=== PATIENT | male | born 1960 | race African-American/Black ===

== ENCOUNTER 2019-10-14 12:47 | Emergency (ER) | payer MEDICARE, SELFPAY ==
--- NOTE | ~2019-10-14 | XR_ITS ---
EXAMINATION: XR shoulder LT min 2V EXAM DATE: 10/14/2019 14:52 INDICATION: No known recent injury provided at this time. Pain of the left shoulder. TECHNIQUE: The following left shoulder projections obtained: frontal projection with internal rotatio n, frontal projection with external rotation, Grashey, and axillary (4+ views). There is no prior st udy for comparison. FINDINGS: No evidence of left shoulder rotator cuff calcific tendinosis. There is mild glenohumeral, moderate acromioclavicular joint primary osteoarthritis. There are no acute fractures or dislocation s identified. There is no subcutaneous gas. The soft tissue is unremarkable. There are no radiopa que foreign bodies. IMPRESSION: Moderate left acromioclavicular, mild glenohumeral osteoarthritis. Reviewed, dictated and finalized at location A.
[2019-10-14 13:10] VITALS: BP 153/91; PULSE 73; RESP 18; TEMP 36.9; O2SAT 98
--- NOTE | 2019-10-14 15:51 | PC.NURSE ---
pt out to nurses station, pt educated on busy department and that all his results are back and EDP will be in when available. Pt verbalized understanding.
--- NOTE | 2019-10-14 15:56 | ED.UPPEXIN ---
HPI - Extremity Injury (Upper) General Chief Complaint: Extremity Injury, Upper <Audrey Becker PA-C - Last Filed: 10/14/19 16:01> Stated Complaint: left shoulder pain <DERICK Rivera Last Filed: 10/14/19 16:01> Time Seen by Provider: 10/14/19 14:00 <Audrey Becker PA-C - Last Filed: 10/14/19 16:01> Source: patient <DERICK Rivera Last Filed: 10/14/19 16:01> Mode of arrival: ambulatory <DERICK Rivera Last Filed: 10/14/19 16:01> Limitations: no limitations <DERICK Rivera Last Filed: 10/14/19 16:01> History of Present Illness HPI narrative: Patient presents with chief complaint of left shoulder soreness that has persisted over the past 2 to 3 weeks. Patient states initially he was lifting a heavy object and he felt a popping sensation to the left shoulder. Patient states a week and 1/2 to 2 weeks ago he experienced the same thing again. Patient denies any weakness to the extremity. He denies any loss of range of motion. Patient is annoyed by soreness to the extremity with motion. Especially with extensive internal and external rotation. Patient denies any prior fracture no injury to the shoulder. <Audrey Becker PA-C - Last Filed: 10/14/19 16:01> Related Data Allergies/Adverse Reactions: Allergies Allergy/AdvReac Type Severity Reaction Status Date / Time No Known Allergies Allergy Verified 10/14/19 13:57 <Audrey Becker PA-C - Last Filed: 10/14/19 16:01> Review of Systems Review of Systems: Narrative: CONSTITUTIONAL: Denies fever, chills, or sweats. EYES: Denies visual changes, redness, or discharge. ENT: Denies rhinorrhea, congestion, sore throat, or otalgia. CARDIOVASCULAR: Denies chest pain, palpitations, or edema. RESPIRATORY: Denies cough or dyspnea. GASTROINTESTINAL: Denies abdominal pain, nausea, vomiting, or diarrhea. GENITOURINARY: Denies dysuria or hematuria. SKIN: Denies rash or itching. MUSCULOSKELETAL: Reports left shoulder pain denies back pain, or myalgia. NEUROLOGIC: Denies headache, numbness, dizziness, or weakness. PSYCHIATRIC: Denies anxiety or depression. <Audrey Becker PA-C - Last Filed: 10/14/19 16:01> [facility] Social History Social History: Social History Gender identity (if verbalized by the patient): Male <Audrey Becker PA-C - Last Filed: 10/14/19 16:01> Exam Narrative: Exam Narrative: GENERAL: Well-appearing, well-nourished, and in no acute distress. HEAD: Normocephalic, atraumatic. EYES: PERRLA and EOMI. ENT: Nares clear, no rhinorrhea or epistaxis. Mucous membranes moist. Oropharynx without tonsillar hypertrophy exudate or other lesions. Bilateral TMs pearly rios nonbulging CHEST: Clear to auscultation. No respiratory distress. No wheezes rales or rhonchi HEART: Regular rate and rhythm. EXTREMITIES: Normal range of motion. Discomfort with extensive internal and external rotation. No erythema or edema. No outward signs of injury. SKIN: Warm, dry, no rash. NEURO: No focal deficits. Alert and oriented x3. PSYCH: Normal mood and affect. <Audrey Becker PA-C - Last Filed: 10/14/19 16:01> Course Vital Signs Vital signs: Vital Signs Temperature 98.4 F 10/14/19 13:10 Pulse Rate 73 10/14/19 13:10 Respiratory Rate 18 10/14/19 13:10 Blood Pressure 153/91 H 10/14/19 13:10 Pulse Oximetry 98 10/14/19 13:10 Temperature 98.0 F 10/14/19 16:14 Pulse Rate 88 10/14/19 16:14 Respiratory Rate 20 10/14/19 16:14 Blood Pressure 128/78 10/14/19 16:14 Pulse Oximetry 99 10/14/19 16:14 <Audrey Becker PA-C - Last Filed: 10/14/19 16:01> Vital Signs Temperature 98.4 F 10/14/19 13:10 Pulse Rate 73 10/14/19 13:10 Respiratory Rate 18 10/14/19 13:10 Blood Pressure 153/91 H 10/14/19 13:10 Pulse Oximetry 98 10/14/19 13:10 Temperature 98.0 F 10/14/19 16:14 Pulse Rate 88 10/14/19 16:14 Respiratory Rate 20 10/14/19 16:14 Blood P
[2019-10-14 16:14] VITALS: BP 128/78; PULSE 88; RESP 20; TEMP 36.7; O2SAT 99
== END 2019-10-14 16:16 | disposition home or self-care (01) ==
PROVIDERS: Emergency Provider General Practice; PCP Emergency Medicine
DX: M19.012 Primary osteoarthritis, left shoulder (principal)
CPT/HCPCS: 73030; 99283

== ENCOUNTER 2021-07-20 | Day surgery (SDC) | payer MEDICARE, SELFPAY ==
[2021-05-06 13:12] VITALS: BMI 29.6
--- NOTE | 2021-06-03 09:56 | PC.NURSE ---
Patient was rescheduled from a procedure date on 05/21/21. States that no medical history has changed since last updated phone call. Patient does state that he will need to get a copy of his COVID card from [facility]. Tried to give him Nallely's email to send the card, however patient states he did not have a pen and paper with him at this time. He will call PAT back tomorrow to get the email, but will need to be followed up with.
[2021-07-14 10:37] VITALS: BMI 29.6
[2021-07-20 09:16] VITALS: BP 156/90; PULSE 65; RESP 18; TEMP 37.1; O2SAT 99
--- NOTE | 2021-07-20 09:20 | PM.HPGS ---
History of Present Illness History of Present Illness Consent: Risks, benefits, and alternatives have been discussed and questions answered. Patient agrees to proceed with procedure. Chief complaint: neoplasm screening Narrative: Juliet Grimm is a 59 year old male here for screening colonoscopy, last one about 7 years ago. Review of Systems Constitutional: Constitutional: Denies headache(s) and Denies weakness Eyes: Eyes: Denies blurry vision ENT: Reports Normal hearing present, Denies headache(s) and Denies neck pain Cardiovascular: Cardiovascular: Denies chest pain and Denies dyspnea Respiratory: Respiratory: Denies dyspnea Gastrointestinal: Gastrointestinal: Reports no additional gastrointestinal complaints Genitourinary: Genitourinary: Denies dysuria Musculoskeletal: Musculoskeletal: Denies neck pain Integumentary/Breasts: Skin/Breast: Denies dry skin Neurologic: Reports Normal hearing present, Denies headache(s) and Denies weakness Psychiatric: Psychiatric: Denies anxiety Endocrine: Endocrine: Denies change in body appearance Hematologic/Lymphatic: Hematologic/Lymphatic: Denies easy bleeding Allergic/Immunologic: Allergic/Immunologic: Denies urticaria PMFSH Past Medical History Medical History (Updated 07/20/21 @ 09:21 by Mark Li MD) Colon cancer screening Social History Social History Smoking status: Never smoker Alcohol intake: current Drinks per week: 7 Substance use: current Substance use type: marijuana Living arrangements: with family Gender identity (if verbalized by the patient): Male Spiritual care concerns: No Meds Home Medications and Allergies Home Medications Medication Instructions Recorded Confirmed Type naproxen 500 mg PO BID PRN #20 tablet 10/14/19 07/20/21 Rx amlodipine 10 mg PO DAILY 05/06/21 07/20/21 History diclofenac sodium 75 mg PO BID 05/06/21 07/20/21 History Allergies Allergy/AdvReac Type Severity Reaction Status Date / Time No Known Allergies Allergy Verified 07/20/21 09:16 Vital Signs Vital Signs - 24 hr 07/20/21 09:16 Temperature 98.8 F Pulse Rate 65 Respiratory Rate 18 Blood Pressure 156/90 H Pulse Oximetry 99 Exam Const: General: comfortable and no acute distress HENMT: General nose exam: Normal nares present Eyes: General: appearance normal, both eyes and all related structures Neck: Neck: no JVD Resp: Auscultation: clear to auscultation bilaterally Cardio: Rate: regular rate Rhythm: regular rhythm GI: Inspection: non-distended GI Palp: Yes Soft to palpation Skin: General skin exam: normal color Neuro: General: gait normal Speech: normal speech Extrem: General: normal to inspection Psych: Mental Status: mental status grossly normal Assessment and Plan Assessment and plan (1) Colon cancer screening: Code(s): Z12.11 - Encounter for screening for malignant neoplasm of colon Status: Acute Assessment and Plan: colonoscopy
[2021-07-20] MEDS: LACTATED RINGERS 1,000 ML 150 ML IV CONT (09:21)
--- NOTE | 2021-07-20 09:25 | WPDANESEPPF ---
Anes - Initial Pre Proc Eval Procedure: Operation Date: 07/20/21 10:30 Proposed Procedures p Screening Colonoscopy - Mark Li MD Date/Time: 07/20/21 09:25 Surgeon: Mark Li MD Pre Op Diagnosis: neoplasm screening Patient Data Age: 59 Gender: M Height: 1.85 m Weight: 99.1 kg Last Vital Signs Temp 98.8 F 07/20/21 09:16 Pulse 65 07/20/21 09:16 Resp 18 07/20/21 09:16 BP 156/90 H 07/20/21 09:16 Pulse Ox 99 07/20/21 09:16 Allergies Allergy/AdvReac Type Severity Reaction Status Date / Time No Known Allergies Allergy Verified 07/20/21 09:16 Home Medications Medication Instructions Recorded Confirmed Type naproxen 500 mg PO BID PRN #20 tablet 10/14/19 07/20/21 Rx amlodipine 10 mg PO DAILY 05/06/21 07/20/21 History diclofenac sodium 75 mg PO BID 05/06/21 07/20/21 History Patient hx anesthesia problems: none Family hx anesthesia problems: none Results Review: All pre-operative results and documents have been reviewed as part of the pre-operative evaluation. [facility] Past Medical History Medical History (Updated 07/20/21 @ 09:25 by Damian Castillo MD) Colon cancer screening Hypertension Social History Social History Smoking status: Never smoker Alcohol intake: current Drinks per week: 7 Substance use: current Substance use type: marijuana Living arrangements: with family Gender identity (if verbalized by the patient): Male Spiritual care concerns: No Anes - Eval Final PreProcedure Day of Procedure 07/20/21 09:25 Patient weight: overweight Heart: regular rate and rhythm Lungs: clear to auscultation Airway: Mallampati scale class II Neurological: alert and oriented Last oral intake: >/= 8 hours ASA classification: II Emergent: no Anesthetic plan: proceed Anesthesia type and monitoring: general GIVS and standard monitoring Results Review: All pre-operative results and documents have been reviewed as part of the pre-operative evaluation. Informed Consent: The patient's anesthetic plan and its attendant risks and benefits were discussed with the patient/family/POA. Questions were solicited and answers provided to the satisfaction of the patient/family/POA.
[2021-07-20 09:52] VITALS: BP 96/60; PULSE 70; RESP 20; O2SAT 99
[2021-07-20 10:02] VITALS: BP 126/86; PULSE 61; RESP 22; O2SAT 100
[2021-07-20 10:12] VITALS: BP 138/68; PULSE 61; RESP 20; O2SAT 100
== END 2021-07-20 10:19 | disposition home or self-care (01) ==
PROVIDERS: PCP Emergency Medicine; Visit Provider Internal Medicine Gastroenterology
PROC: 0DJD8ZZ Inspection of Lower Intestinal Tract, Via Natural or Artificial Opening Endoscopic (ICD-10-PCS; CPT 45378; principal; 2021-07-20 10:30)
DX: Z12.11 Encounter for screening for malignant neoplasm of colon (principal); K64.8 Other hemorrhoids; K62.89 Other specified diseases of anus and rectum; I10 Essential (primary) hypertension; F12.90 Cannabis use, unspecified, uncomplicated
CPT/HCPCS: G0121; J2704; J7120

== ENCOUNTER 2022-01-07 12:14 | Outpatient (CLI) | payer MEDICARE, SELFPAY ==
--- NOTE | ~2022-01-07 | XR_ITS ---
EXAMINATION: XR chest 2V 01/07/2022 12:27 INDICATION: Intermittent asthma. Dyspnea. PROCEDURE: 2 view chest COMPARISON: 05/17/2017 FINDINGS: The lungs are clear. The cardiomediastinal silhouette is within normal limits. There are no pleural effusions. There is no pneumothorax suspected. IMPRESSION: 1: NO ACUTE CARDIOPULMONARY DISEASE. Reviewed, dictated and finalized at location A.
== END 2022-01-07 12:15 ==
PROVIDERS: PCP Internal Medicine; Visit Provider Internal Medicine
DX: J45.20 Mild intermittent asthma, uncomplicated (principal)
CPT/HCPCS: 71046

== ENCOUNTER 2022-02-04 10:45 | Outpatient (CLI) | payer MEDICARE, SELFPAY ==
--- NOTE | ~2022-02-04 | XR_ITS ---
EXAMINATION: XR knee RT 3V DATE: 02/04/2022 11:12 INDICATION: Right knee pain TECHNIQUE: Three views of the right knee were obtained. COMPARISON: None. FINDINGS: There is tricompartmental osteoarthritis of the knee, severe in the lateral and patellofemo ral compartments and moderate in the medial compartment. There is no fracture. There is a large knee joint effusion. IMPRESSION: 1. Tricompartmental osteoarthritis, severe in the lateral and patellofemoral compartments. 2. Large joint effusion. Reviewed, dictated and finalized at location F. IMPRESSION: 1. Tricompartmental osteoarthritis, severe in the lateral and patellofemoral co mpartments. 2. Large joint effusion.
--- NOTE | ~2022-02-04 | XR_ITS ---
XR knee LT 3V DATE: 02/04/2022 11:12 INDICATION: Osteoarthritis TECHNIQUE: Standing AP and lateral views, sunrise view COMPARISON: None FINDINGS: There is prominent distention of the suprapatellar bursa consistent with large knee joint e ffusion. There is severe osteoarthritis at the patellofemoral and medial compartments, mild to moderate involv ement of the lateral compartment. There is lateral subluxation at the patellofemoral joint and femoral tibial joint. No fracture or dis location, periosteal reaction or bone destruction. No radiopaque intra-articular loose body or chondr ocalcinosis is noted. Osteopenia. IMPRESSION: Tricompartment osteophytes, most severe at the medial and patellofemoral garments Large joint effusion Osteopenia Reviewed, dictated and finalized at location A. IMPRESSION: Tricompartment osteophytes, most severe at the medial and patellofe moral garments Large joint effusion Osteopenia
== END 2022-02-04 10:46 ==
PROVIDERS: PCP Internal Medicine; Visit Provider Internal Medicine
DX: M17.0 Bilateral primary osteoarthritis of knee (principal); M25.462 Effusion, left knee; M85.862 Other specified disorders of bone density and structure, left lower leg; M25.461 Effusion, right knee
CPT/HCPCS: 73562

== ENCOUNTER 2022-04-05 15:02 | Outpatient (CLI) | payer MEDICARE, SELFPAY ==
--- NOTE | ~2022-04-05 | XR_ITS ---
XR lumbar spine 2-3V DATE: 04/05/2022 15:43 INDICATION: Acute midline low back pain, left sciatica TECHNIQUE: AP, lateral, coned lateral lumbosacral views COMPARISON: None FINDINGS: There is diffuse osteopenia. There is moderate degenerative disease at L3-4 and L4-5 and severe degenerative disc disease L5-S1. There is prominent degenerative changes apophyseal joints, particularly at L4-5 and L5-S1, associated minimal grade 1 anterolisthesis at L4-5. The included lower thoracic and lumbar pedicles are intact. No fracture or bone destruction is noted. The sacroiliac joints are intact. IMPRESSION: Osteopenia Multilevel degenerative disc disease, most severe at L5-S1 Degenerative change at the apophyseal joints with associated minimal grade 1 anterolisthesis at L4-5 Reviewed, dictated and finalized at location B. IMPRESSION: Osteopenia Multilevel degenerative disc disease, most severe at L5-S1 Degenerative change at the apophyseal joints with associated minimal grade 1 an terolisthesis at L4-5
== END 2022-04-05 15:03 ==
PROVIDERS: PCP Internal Medicine; Visit Provider Internal Medicine
DX: M54.42 Lumbago with sciatica, left side (principal); M51.37 Other intervertebral disc degeneration, lumbosacral region
CPT/HCPCS: 72100

== ENCOUNTER 2022-06-13 15:16 | Emergency (ER) | payer MEDICARE, SELFPAY ==
[2022-06-13] VITALS (17 sets, daily range): BP systolic 132–168; BP diastolic 68–102; PULSE 67–79; RESP 12–22; TEMP 36.3–36.7; O2SAT 97–100
--- NOTE | ~2022-06-13 | XR_ITS ---
EXAMINATION: XR chest 2V DATE: 06/13/2022 16:24 INDICATION: Shortness of breath and cough TECHNIQUE: PA and lateral views of the chest are obtained. COMPARISON: 01/07/2022 FINDINGS: The lungs are free of acute opacities. No pleural effusion or pneumothorax. The cardiomedia stinal silhouette is normal. There is severe thoracic spondylosis. IMPRESSION: 1. No acute cardiopulmonary abnormality. Reviewed, dictated and finalized at location B. GRAPHIC INSTRUMENT SUPERVISOR
--- NOTE | 2022-06-13 15:44 | ECG_ITS ---
Measurements Intervals Ava Rate: 69 P: 60 IN: 207 QRS: 30 QRSD: 93 T: 58 QT: 370 QTc: 397 Interpretive Statements SINUS RHYTHM BORDERLINE AV CONDUCTION DELAY BORDERLINE ECG BASELINE ARTIFACT- I, II, III, AVR, AVL, AVF NO PREVIOUS ECG AVAILABLE FOR COMPARISON Electronically Signed On 06-13-2022 19:47:11 POWERHOUSE OPERATOR by Sandro Mcdaniels D.O.
[2022-06-13 16:10] LABS: Basophils Absolute Auto 0.1 K/mm3 (0.0-0.1); Basophils Percent Auto 0.9 % (0.2-1.2); Eosinophils Absolute Auto 0.5 K/mm3 (0-0.3); Eosinophils Percent Auto 5.6 % (0-4.4); Hemoglobin 13.5 g/dL (14.0-18.0); Immature Granulocyte Absolute 0.02 K/mm3 (0.00-0.031); Immature Granulocyte Percent A 0.2 % (0-0.5); Lymphocytes Absolute Auto 1.71 K/mm3 (0.9-3.2); Lymphocytes Percent Auto 21.1 % (18.3-44.2); Mean Corpuscular HGB Conc 32.1 g/dl (32-36); Mean Corpuscular Hemoglobin 28.1 pg (26-34); Mean Corpuscular Volume 87.5 fl (80-100); Mean Platelet Volume 8.9 fl (7.4-10.4); Monocytes Absolute Auto 0.8 K/mm3 (0.1-0.6); Monocytes Percent Auto 9.3 % (2.6-8.5); Neutrophils Absolute Auto 5.1 K/mm3 (1.3-6.7); Neutrophils Percent Auto 62.9 % (45.5-73.1); Platelet Count Result 307 k/mm3 (150-375); Red Cell Distribution Width 13.7 % (11.5-14.5); White Blood Count 8.1 K/mm3 (4.5-10.0)
[2022-06-13 16:23] LABS: Alanine Aminotransferase 26 U/L (6-50); Albumin Level 4.8 g/dL (3.5-5.1); Alkaline Phosphatase 69 U/L (38-126); Anion Gap 12 mmol/L (8-16); Aspartate Amino Transferase 30 U/L (17-59); Bilirubin,Total 1.1 mg/dL (0.2-1.3); Blood Urea Nitrogen 12 mg/dL (9-20); Calcium 9.5 mg/dL (8.4-10.2); Carbon Dioxide 30 mmol/L (22-30); Chloride 100 mmol/L (98-107); Estimated CRCL calculation 76 ml/min; Estimated Glomerular Filt Rate > 60; Glucose 87 mg/dL (65-110); Potassium 3.4 mmol/L (3.4-5.0); Sodium 142 mmol/L (137-145)
--- NOTE | 2022-06-13 17:45 | ED.GENADULT ---
HPI - General Adult General Chief complaint: Shortness of Breath/Dyspnea Stated complaint: Shortness of Breath/Asthma Exacerbation Time Seen by Provider: 06/13/22 17:43 Source: RN notes reviewed History of Present Illness HPI narrative: Patient presents emergency room from home for shortness of breath. Patient states has been feeling short of breath since this morning. States he has a history of asthma and has been having wheezing throughout the day. States associate with a cough this been nonproductive. He denies any fevers or chills abdominal pain nausea or vomiting states he has mild feeling of tightness in his chest that he cannot take a deep breath patient denies having nausea or vomiting went to his PCP is recommended come the ER for further evaluation Related Data Home Medications Medication Instructions Recorded Confirmed amlodipine 10 mg tablet 10 mg PO DAILY 05/06/21 07/20/21 diclofenac sodium 75 mg 75 mg PO BID 05/06/21 07/20/21 tablet,delayed release Allergies Allergy/AdvReac Type Severity Reaction Status Date / Time lisinopril Allergy Unknown Verified 06/13/22 15:43 Review of Systems Review of Systems: Gen.: Denies fevers or chills ENT: Denies congestion Respiratory: See HPI CV: Denies chest pain or palpitations GI: Denies abdominal pain nausea, emesis or diarrhea Musculoskeletal: Denies back pain or muscle pain Neuro: Denies numbness, tingling, weakness or focal weakness Skin: Denies rash Except as documented, all other systems reviewed and negative [facility] Past Medical History Medical History (Updated 06/13/22 @ 19:17 by Michi Dickinson DO) Asthma Colon cancer screening Hypertension Social History Social History Smoking status: Never smoker Alcohol intake: current Drinks per week: 7 Substance use: current Substance use type: marijuana Gender identity (if verbalized by the patient): Male Spiritual care concerns: No Exam Narrative: APPEARANCE: No acute distress, nontoxic, resting in bed EYES: EOMI HEENT: Normocephalic, atraumatic, OMM RESPIRATORY: No respiratory distress wheezing throughout the bilateral lung morley with decreased breath sounds in the bases no rhonchi CARDIOVASCULAR: Regular rate and rhythm without murmurs rubs or gallops. ABDOMINAL: Soft, nontender, nondistended, no rebound or guarding MUSCULOSKELETAl: Moves all extremities. No clubbing, cyanosis or edema. NEURO: Awake and alert. Following commands, speech normal, no focal deficits SKIN:: Warm, dry. No rashes lesions or abrasions PSYCHIATRIC: Normal affect/mood, Course Course Emergency Course: Patient states he is feeling much better following breathing treatments. Repeat lung exam is clear to auscultation bilaterally patient states he has had history of being positive for the past he does not smoke cigarettes but does smoke marijuana Discussed with patient results of workup and diagnosis. Discussed need for follow-up with primary care, proper use of medication, and reasons to return to the emergency department. Patient understands and agrees to current treatment plan Vital Signs Vital signs: Vital Signs Temperature 98.1 F 06/13/22 15:39 Pulse Rate 75 06/13/22 15:39 Respiratory Rate 22 H 06/13/22 15:39 Blood Pressure 147/68 H 06/13/22 15:39 Pulse Oximetry 100 06/13/22 15:39 Temperature 97.9 F 06/13/22 17:45 Pulse Rate 76 06/13/22 18:38 Respiratory Rate 16 06/13/22 18:38 Blood Pressure 158/102 H 06/13/22 17:45 Pulse Oximetry 100 06/13/22 17:45 Oxygen Delivery Room Air 06/13/22 17:45 Medical Decision Making Vital Signs Vital Signs: Vital Signs Temperature 98.1 F 06/13/22 15:39 Pulse Rate 75 06/13/22 15:39 Respiratory Rate 22 H 06/13/22 15:39 Blood Pressure 147/68 H 06/13/22 15:39 Pulse Oximetry 100 06/13/22 15:39 Temperature 97.9 F 06/13/22 17:45 Pulse Rate 76
[2022-06-13] MEDS: ALBUTEROL SULFATE NEB 2.5 MG/3 ML INH 5 MG INHALATION ×2 (18:02→18:18)
[2022-06-13] MEDS: IPRATROPIUM BR 0.02% INH SOLN 0.5 MG/2.5 ML VIAL INHALATION ×2 (18:03→18:18)
[2022-06-13] MEDS: methylPREDNISolone SOD SUCC 125 MG VIAL IV PUSH (18:34)
[2022-06-13 19:20] LABS: SARS-CoV-2 RNA PCR Negative
== END 2022-06-13 19:59 | disposition home or self-care (01) ==
PROVIDERS: Emergency Provider Emergency Medicine; PCP Internal Medicine
DX: J45.901 Unspecified asthma with (acute) exacerbation (principal); Z20.822 Contact with and (suspected) exposure to COVID-19; I10 Essential (primary) hypertension; R94.31 Abnormal electrocardiogram [ECG] [EKG]
CPT/HCPCS: 36415; 71046; 80053; 85025; 93005; 94640; 96374; 99285; J2930; U0003; U0005

== ENCOUNTER 2022-07-12 09:48 | Emergency (ER) | payer MEDICARE, SELFPAY ==
--- NOTE | ~2022-07-12 | XR_ITS ---
EXAMINATION: XR chest 2V DATE: 07/12/2022 10:12 INDICATION: Left chest wall pain TECHNIQUE: PA and lateral views of the chest are obtained. COMPARISON: 06/13/2022 FINDINGS: The lungs are free of acute opacities. No pleural effusion or pneumothorax. The cardiomedia stinal silhouette is normal. There is severe thoracic spondylosis. IMPRESSION: 1. No acute cardiopulmonary abnormality. Reviewed, dictated and finalized at location A. OYEE ADVISER
--- NOTE | 2022-07-12 09:50 | ECG_ITS ---
Measurements Intervals Lee Rate: 81 P: 53 HI: 188 QRS: 8 QRSD: 94 T: 43 QT: 330 QTc: 384 Interpretive Statements SINUS RHYTHM COMPARED TO ECG 06/13/2022 17:52:33 NO SIGNIFICANT CHANGES Electronically Signed On 07-12-2022 15:31:39 JBOSS ARCHITECT by Harpal Singh M.D.
[2022-07-12 09:51] VITALS: BP 136/78; PULSE 86; RESP 18; TEMP 36.9; O2SAT 100
[2022-07-12 10:24] LABS: Basophils Percent Auto 0.5 % (0.2-1.2); Eosinophils Absolute Auto 0.1 K/mm3 (0-0.3); Eosinophils Percent Auto 2.3 % (0-4.4); Hematocrit 40.9 % (42.0-52.0); Hemoglobin 13.5 g/dL (14.0-18.0); Immature Granulocyte Absolute 0.03 K/mm3 (0.00-0.031); Immature Granulocyte Percent A 0.5 % (0-0.5); Lymphocytes Absolute Auto 1.83 K/mm3 (0.9-3.2); Mean Corpuscular Hemoglobin 28.3 pg (26-34); Mean Corpuscular Volume 85.7 fl (80-100); Mean Platelet Volume 8.9 fl (7.4-10.4); Monocytes Absolute Auto 0.7 K/mm3 (0.1-0.6); Monocytes Percent Auto 10.8 % (2.6-8.5); Neutrophils Absolute Auto 3.4 K/mm3 (1.3-6.7); Neutrophils Percent Auto 55.9 % (45.5-73.1); Platelet Count Result 374 k/mm3 (150-375); Red Blood Count 4.77 M/mm3 (4.6-6.20); Red Cell Distribution Width 13.2 % (11.5-14.5); White Blood Count 6.1 K/mm3 (4.5-10.0)
[2022-07-12 10:37] LABS: Partial Thromboplastin Time 26.4 SECONDS (22.3-36.8); Prothrombin Time 13.1 Seconds (11.1-14.7)
[2022-07-12 10:49] LABS: Alanine Aminotransferase 33 U/L (6-50); Albumin Level 4.4 g/dL (3.5-5.1); Alkaline Phosphatase 70 U/L (38-126); Anion Gap 6 mmol/L (8-16); Aspartate Amino Transferase 36 U/L (17-59); Bilirubin,Total 1.3 mg/dL (0.2-1.3); Blood Urea Nitrogen 12 mg/dL (9-20); Calcium 9.1 mg/dL (8.4-10.2); Carbon Dioxide 30 mmol/L (22-30); Chloride 101 mmol/L (98-107); Estimated CRCL calculation 84 ml/min; Estimated Glomerular Filt Rate > 60; Glucose 103 mg/dL (65-110); Lipase 104 U/L (23-300); Potassium 3.9 mmol/L (3.4-5.0); Sodium 137 mmol/L (137-145)
[2022-07-12 11:00] LABS: Troponin I < 0.012 ng/mL (0.000-0.034)
[2022-07-12 11:36] VITALS: PULSE 71
--- NOTE | 2022-07-12 12:10 | ED.GENADULT ---
HPI - General Adult General Chief complaint: Chest Pain Stated complaint: rif pain Time Seen by Provider: 07/12/22 11:31 History of Present Illness HPI narrative: This is a 60-year-old male presenting ED with chief complaint of chest pain. Patient has pain over his left chest underneath his breast, describes as an achy pain that started yesterday and radiates from his left side to his right side. Has 5/10 intensity, comes and goes. He has never experienced pain like this before there are no exacerbating or alleviating factors. Patient is not currently experiencing chest pain. Denies vomiting diaphoresis or exertional component. He denies fever, chills or viral symptoms. Patient does have a history of asthma says this is not feel like his asthma exacerbation. He was told to come to the ER by his primary care physician. Related Data Home Medications Medication Instructions Recorded Confirmed amlodipine 10 mg tablet 10 mg PO DAILY 05/06/21 07/20/21 diclofenac sodium 75 mg 75 mg PO BID 05/06/21 07/20/21 tablet,delayed release Allergies Allergy/AdvReac Type Severity Reaction Status Date / Time lisinopril Allergy Unknown Verified 07/12/22 09:57 Review of Systems Review of Systems: CONSTITUTIONAL: Denies night sweats. EYES: No eye pain ENT: Denies rhinorrhea CARDIOVASCULAR: Denies palpitations RESPIRATORY: Denies hemoptysis GASTROINTESTINAL: Denies hematemesis GENITOURINARY: Denies hematuria. SKIN: Denies rash MUSCULOSKELETAL: Denies myalgia. NEUROLOGIC: Denies weakness. PSYCHIATRIC: Denies delusions [facility] Past Medical History Medical History Asthma Colon cancer screening Hypertension Social History Social History Smoking status: Never smoker Alcohol intake: current Drinks per week: 7 Substance use: current Substance use type: marijuana Gender identity (if verbalized by the patient): Male Spiritual care concerns: No Exam Narrative: APPEARANCE: No apparent distress. Head: atraumatic. EYES: EOMI, NOSE: Atraumatic NECK: Trachea midline RESPIRATORY: No increased rate of breathing , clear to auscultation bilaterally with no wheezing CARDIOVASCULAR: regular rate and rhythm, no peripheral edema ABDOMINAL: Non-distended MUSCULOSKELETAl: No obvious deformities, no tenderness palpation over the area of chest pain NEURO: Alert. Moving 4/4 extremities SKIN:: Warm, dry. Normal color PSYCHIATRIC: Normal affect Course Vital Signs Vital signs: Vital Signs Temperature 98.5 F 07/12/22 09:51 Pulse Rate 86 07/12/22 09:51 Respiratory Rate 18 07/12/22 09:51 Blood Pressure 136/78 07/12/22 09:51 Pulse Oximetry 100 07/12/22 09:51 Oxygen Delivery Room Air 07/12/22 09:51 Temperature 98.5 F 07/12/22 09:51 Pulse Rate 78 07/12/22 12:22 Respiratory Rate 18 07/12/22 12:22 Blood Pressure 121/81 07/12/22 12:22 Pulse Oximetry 98 07/12/22 12:22 Oxygen Delivery Room Air 07/12/22 09:51 Medical Decision Making MDM Narrative Medical decision making narrative: this is a 60-year-old male presenting to ED with left-sided chest pain. ACS workup has been ordered. EKG interpretation: Rhythm [sinus], Rate 81, [place] -[normal], [place] -[normal], QRS [narrow], QTC [normal], T waves -[negative for concerning inversions], ST Segments - [Negative for concerning elevations] Final interpretations: [Normal Sinus Rhythm] chest x-ray was negative for acute cardiopulmonary process. Labwork was within normal limits. Trop negative x2. Patient's EKGs and labs are reviewed without significant high risk changes. Cardiac risk factors reviewed. Heart score is <4 and it is reasonable for further risk stratification to be performed as outpatient. Pain was not sudden or maximal onset not tearing or ripping quality. No other signs or symptoms suggest aortic dissection. A
[2022-07-12] MEDS: ASPIRIN 81 MG CHEWABLE TABLET 324 MG PO (12:21)
[2022-07-12 12:22] VITALS: BP 121/81; PULSE 78; RESP 18; O2SAT 98
[2022-07-12 13:30] LABS: Troponin I < 0.012 ng/mL (0.000-0.034)
[2022-07-12 14:02] VITALS: BP 121/81; PULSE 71; RESP 13; O2SAT 99
== END 2022-07-12 14:03 | disposition home or self-care (01) ==
PROVIDERS: Emergency Provider Emergency Medicine; PCP Internal Medicine
DX: R07.9 Chest pain, unspecified (principal); J45.909 Unspecified asthma, uncomplicated; I10 Essential (primary) hypertension
CPT/HCPCS: 36415; 71046; 80053; 83690; 84484; 85025; 85610; 85730; 93005; 99284; A9270

== ENCOUNTER 2022-08-21 08:07 | Emergency (ER) | payer MEDICARE, SELFPAY ==
[2022-08-21] VITALS (8 sets, daily range): BP systolic 141–148; BP diastolic 92–99; PULSE 78–89; RESP 13–20; TEMP 37; O2SAT 96–100
--- NOTE | ~2022-08-21 | XR_ITS ---
XR chest 2V DATE: 08/21/2022 09:13 INDICATION: Cough, congestion, shortness of breath TECHNIQUE: PA and lateral views COMPARISON: 07/12/2022 PA and lateral chest FINDINGS: Normal heart size. There is aortic ectasia and mild aortic tortuosity. No hilar or mediasti nal enlargement. No pulmonary infiltrate or consolidation, pleural effusion or pulmonary vascular con gestion or pneumothorax is detected. Degenerative spurring of the thoracic spine. IMPRESSION: No active cardiopulmonary disease Reviewed, dictated and finalized at location A. [facility]
--- NOTE | 2022-08-21 08:29 | ED.URI ---
HPI - URI/Sore Throat General Chief Complaint: Upper Respiratory Infection Stated Complaint: wheezing Time Seen by Provider: 08/21/22 08:23 Source: patient Mode of arrival: ambulatory Limitations: no limitations History of Present Illness HPI Narrative: 61 years old -[place] male presents with nasal congestion, postnasal discharge, tickle throat, coughing with wheezing started 7 days ago. History of asthma, does not have any medications at home. He denies sick contacts, fever, chills or chest pain. Related Data Home Medications Medication Instructions Recorded Confirmed amlodipine 10 mg tablet 10 mg PO DAILY 05/06/21 07/20/21 diclofenac sodium 75 mg 75 mg PO BID 05/06/21 07/20/21 tablet,delayed release Allergies Allergy/AdvReac Type Severity Reaction Status Date / Time lisinopril Allergy Unknown Verified 08/21/22 08:17 Review of Systems Review of Systems: All systems reviewed & are unremarkable except as noted in HPI and below PMFSH Past Medical History Medical History Asthma Colon cancer screening Hypertension Social History Social History Smoking status: Never smoker Alcohol intake: current Drinks per week: 7 Substance use: current Substance use type: marijuana Gender identity (if verbalized by the patient): Male Spiritual care concerns: No Course Vital Signs Vital signs: Vital Signs Temperature 37.0 C 08/21/22 08:10 Pulse Rate 86 08/21/22 08:10 Respiratory Rate 17 08/21/22 08:10 Blood Pressure 148/92 H 08/21/22 08:10 Pulse Oximetry 98 08/21/22 08:10 Oxygen Delivery Room Air 08/21/22 08:10 Temperature 37.0 C 08/21/22 08:10 Pulse Rate 82 08/21/22 09:01 Respiratory Rate 19 08/21/22 09:01 Blood Pressure 148/92 H 08/21/22 08:10 Pulse Oximetry 100 08/21/22 08:18 Oxygen Delivery Room Air 08/21/22 08:18 MDM - URI/Sore Throat MDM Narrative Medical decision making narrative: 61 years old -[place] male presented to the ED with cold symptoms and wheezing. History of asthma, currently not on any medications. Physical examination showed diffuse wheezing bilaterally, oxygen saturation on room air is 100%, Upper respiratory viral infection, asthma flareup secondary to the upper respiratory infection is my concern. COVID swab, chest x-ray, no acute abnormalities. Patient received DuoNeb treatment prior to discharge The plan to discharge patient on nasal decongestant, prednisone, albuterol inhaler and nebulizer. Patient feeling much better at the time of discharge. Discharge discharge the patient was discharged to home. The patient's condition upon discharge was fair. Education was provided to the patient in reference to the final impression. Diagnostic study results treatment, prognosis and need for follow-up. Based on the medications I am prescribing I have made any necessary changes to the patient's medications. Differential Diagnosis Differential diagnosis: Likely upper respiratory infection, sinusitis, viral infection, bronchitis, influenza, pharyngitis and other (Asthma exacerbation) Lab Data Labs: Lab Results 08/21/22 Range/Units 08:36 Influenza A (RT-PCR) Negative (Negative) Influenza B (RT-PCR) Negative (Negative) RSV (RT-PCR) Negative (Negative) SARS-CoV-2 RNA (RT-PCR) Negative Imaging Data Radiologist's impression: Impressions Chest X-Ray 08/21/22 09:18 IMPRESSION: No active cardiopulmonary disease Critical Care Time Critical Care Time Critical Care Time: Yes Total Critical Care Time: 10 Discharge Plan Discharge Clinical Impression: Upper respiratory infection, Asthma, Pharyngitis Patient Disposition: Home, Self-Care Condition: Improved Instructions: Antibiotic Form, Cold Symptoms (ED), Bronchospasm (ED) Additional Instructions: Return if sympto
[2022-08-21] MEDS: predniSONE 20 MG TABLET 60 MG PO (08:41)
[2022-08-21] MEDS: ALBUTEROL SULFATE NEB 2.5 MG/3 ML INH 5 MG INHALATION (08:48)
[2022-08-21] MEDS: IPRATROPIUM BR 0.02% INH SOLN 0.5 MG/2.5 ML VIAL INHALATION (08:48)
[2022-08-21 09:26] LABS: Influenza A QL RT-PCR Negative (Negative); Influenza B QL RT-PCR Negative (Negative); RSV RNA, RT-PCR Negative (Negative); SARS-CoV-2 RNA PCR Negative
== END 2022-08-21 10:21 | disposition home or self-care (01) ==
PROVIDERS: Emergency Provider Emergency Medicine; PCP Internal Medicine
DX: J06.9 Acute upper respiratory infection, unspecified (principal); J02.9 Acute pharyngitis, unspecified; J45.909 Unspecified asthma, uncomplicated; Z20.822 Contact with and (suspected) exposure to COVID-19; I10 Essential (primary) hypertension
CPT/HCPCS: 71046; 87637; 94640; 99283; J7512

== ENCOUNTER 2023-02-10 07:52 | Outpatient (CLI) | payer MEDICARE, SELFPAY ==
--- NOTE | ~2023-02-10 | CT_ITS ---
EXAMINATION: CT LE LT wo con DATE: 02/10/2023 09:01 INDICATION: Left knee osteoarthritis for preoperative planning TECHNIQUE: High resolution computed tomography (CT) of the left lower extremity from the hip through the ankle was performed without intravenous contrast. Additional sagittal and coronal reconstructions were performed. Automated exposure control and iterative reconstruction technique were employed. The dose-length product was 2007.87 mGy-cm. COMPARISON: None FINDINGS: Tricompartmental osteoarthritis at the left knee, severe in the medial and lateral compartments and a t least mild to moderate in the patellofemoral compartment. Likely secondary slight lateral subluxati on at the tibiofemoral articulation. There is also mild lateral patellar subluxation. Large left knee joint effusion. Loose body versus heterotopic ossicle anterior to the knee near the posterior apex o f Hoffa's fat pad. Additional mild particular osteoarthritis at the left hip, foot and ankle. No frac tures. Likely reactive, enlarged left inguinal lymph node measuring 1.5 cm maximal short axis diamete r. IMPRESSION: 1. Severe medial lateral compartment predominant tricompartmental osteoarthritis at the left knee wit h large joint effusion. Reviewed, dictated and finalized at location B. IMPRESSION: 1. Severe medial lateral compartment predominant tricompartmental osteoarthriti s at the left knee with large joint effusion.
[2023-02-10 08:11] LABS: Hematocrit 43.1 % (42.0-52.0); Hemoglobin 13.7 g/dL (14.0-18.0)
[2023-02-10 08:21] LABS: Albumin Level 4.4 g/dL (3.5-5.1); Estimated Glomerular Filt Rate > 60; Glucose 106 mg/dL (65-110)
[2023-02-10 08:23] LABS: Urine Cotinine NEGATIVE
--- NOTE | 2023-02-10 08:25 | ECG_ITS ---
Measurements Intervals [place] Rate: 72 P: 58 [place]: 216 QRS: 17 QRSD: 88 T: 52 QT: 379 QTc: 415 Interpretive Statements SINUS RHYTHM WITH FIRST DEGREE AV BLOCK VENTRICULAR PREMATURE COMPLEX BASELINE WANDER- I, II, AVR BORDERLINE ECG COMPARED TO ECG 07/12/2022 09:54:57 FIRST DEGREE AV BLOCK NOW PRESENT Electronically Signed On 02-10-2023 8:40:53 CDT by Sandro Mcdaniels D.O.
[2023-02-10 08:54] LABS: Hemoglobin A1C 5.5 % (<5.7)
== END 2023-02-10 07:53 | disposition home or self-care (01) ==
PROVIDERS: PCP Internal Medicine; Visit Provider Orthopaedic Surgery
DX: M17.12 Unilateral primary osteoarthritis, left knee (principal); I10 Essential (primary) hypertension; Z79.899 Other long term (current) drug therapy; Z92.89 Personal history of other medical treatment; Z01.818 Encounter for other preprocedural examination
CPT/HCPCS: 73700; 80307; 82040; 82565; 82947; 83036; 85014; 85018; 93005

== ENCOUNTER 2023-03-28 13:32 | Outpatient (CLI) | payer MEDICARE, SELFPAY ==
[2023-03-28 15:26] LABS: Basophils Percent Auto 0.5 % (0.2-1.2); Eosinophils Absolute Auto 0.2 K/mm3 (0-0.3); Hematocrit 42.9 % (42.0-52.0); Hemoglobin 13.7 g/dL (14.0-18.0); Immature Granulocyte Absolute 0.03 K/mm3 (0.00-0.031); Immature Granulocyte Percent A 0.4 % (0-0.5); Lymphocytes Absolute Auto 1.48 K/mm3 (0.9-3.2); Lymphocytes Percent Auto 18.8 % (18.3-44.2); Mean Corpuscular HGB Conc 31.9 g/dl (32-36); Mean Corpuscular Hemoglobin 27.4 pg (26-34); Mean Corpuscular Volume 85.8 fl (80-100); Mean Platelet Volume 8.6 fl (7.4-10.4); Monocytes Absolute Auto 0.7 K/mm3 (0.1-0.6); Monocytes Percent Auto 8.2 % (2.6-8.5); Neutrophils Absolute Auto 5.5 K/mm3 (1.3-6.7); Neutrophils Percent Auto 70.1 % (45.5-73.1); Platelet Count Result 292 k/mm3 (150-375); Red Cell Distribution Width 13.5 % (11.5-14.5); White Blood Count 7.9 K/mm3 (4.5-10.0)
[2023-03-28 15:36] LABS: Albumin Level 4.7 g/dL (3.5-5.1)
[2023-03-28 15:38] LABS: Anion Gap 10 mmol/L (8-16); Blood Urea Nitrogen 14 mg/dL (9-20); Calcium 9.8 mg/dL (8.4-10.2); Carbon Dioxide 27 mmol/L (22-30); Chloride 98 mmol/L (98-107); Estimated Glomerular Filt Rate > 60; Glucose 101 mg/dL (65-110); Potassium 3.7 mmol/L (3.4-5.0); Sodium 135 mmol/L (137-145)
[2023-03-28 16:11] LABS: Urine Cotinine NEGATIVE
== END 2023-03-28 13:33 | disposition home or self-care (01) ==
LOC: ANHSURGERY 13:36
PROVIDERS: Anesthesiology; PCP Internal Medicine; Visit Provider Orthopaedic Surgery
DX: M17.12 Unilateral primary osteoarthritis, left knee (principal); Z51.81 Encounter for therapeutic drug level monitoring; Z01.818 Encounter for other preprocedural examination
CPT/HCPCS: 36415; 80048; 80307; 82040; 85025; 87081

== ENCOUNTER 2023-04-24 01:41 | Day surgery (SDC) | payer MEDICARE, SELFPAY ==
[2023-03-28 14:15] VITALS: BP 127/68; PULSE 78; RESP 16; TEMP 37.4; O2SAT 97; BMI 26.8
--- NOTE | 2023-03-28 14:30 | PC.NURSE ---
Report to the Outpatient Waiting Room, entrance under the green pavilion located off [facility], at time __10:00AM on date __04/24/23 . Planned Procedure Time: __12:00PM . Time changes happen often and if your time is changed the preop area will call you the afternoon before. - You and your visitor will be asked to self-screen and do not enter if you have any COVID symptoms. - A mask is optional within the hospital at this time. Patients may have clear liquids (water, carbonated beverages, clear teas, apple juice) until 3 hours prior to surgery with a maximum of 20 ounces. - No food from midnight until time of surgery Take the following medications with a SIP of water the morning of surgery: ___ALBUTEROL INHALER NEEDED, OXYCODONE NEEDED DO NOT STOP ANY OF YOUR OTHER PRESCRIPTION MEDICATIONS PRIOR TO SURGERY ?EXCEPT THE FOLLOWING Medications to discontinue per physician ____NONE Please no make-up, nail tajik, hairspray, perfume, deodorant, or body powder the day of surgery. No jewelry (including any body piercings) or valuables the day of surgery, leave them at home. Please take a shower or bath the night before, or the morning of, surgery with an antibacterial soap. Wear comfortable, loose fitting clothing. - Jewelry must be removed prior to entering the operating room. Rings and piercings that are not removed may be cut off. - The hospital will not accept responsibility for valuables. - Please leave all valuables, including medications, at home the day of surgery. If you are going home after surgery, a licensed pizza driver must drive you home. - NO public transportation without another adult if you receive anesthesia. - We recommend that an adult stay with you for 24 hours following discharge. - We also recommend that you do not drive, make important decision, drink alcoholic beverages, or take any drugs that were not prescribed by your health care provider for at least 24 hours after your discharge time. Follow any additional instructions given to you from your surgeon. If you or anyone in your household have experienced Covid symptoms in the past week, please notify your surgeon or the nurse liaison at the phone number below for possible testing. Telephone instructions given to _PATIENT & SISTER and asked if any additional questions and then verbalized understanding. Patient advised to call surgeon office or pre surgery nurse liaison [phone] if any additional questions.
[2023-04-24] VITALS (12 sets, daily range): BP systolic 118–140; BP diastolic 63–95; PULSE 57–101; RESP 14–20; TEMP 36.3–37.1; O2SAT 96–100
--- NOTE | ~2023-04-24 | XR_ITS ---
EXAMINATION: [id number] DATE: 04/24/2023 15:39 INDICATION: Postoperative evaluation following left total knee arthroplasty. TECHNIQUE: Anteroposterior and lateral views of the left knee were obtained. COMPARISON: None. FINDINGS: Left total knee arthroplasty with patellar resurfacing appears well seated and in near anatomic align ment. No fractures identified. Expected postoperative subcutaneous and intra-articular gas. IMPRESSION: 1. Left total knee arthroplasty, negative for postoperative purposes. Reviewed, dictated and finalized at location A.
--- NOTE | 2023-04-24 09:17 | WPDHPUPDATE1 ---
History and Physical Update Update Date/Time: 04/24/23 09:17 History and Physical has been reviewed, including an updated exam of the patient. There are NO changes in the patient's condition. Risks, benefits, and alternatives have been discussed and questions answered. Patient agrees to proceed with procedure.
--- NOTE | 2023-04-24 11:06 | WPDANESEPPF ---
Anes - Initial Pre Proc Eval Procedure: Operation Date: 04/24/23 12:00 Proposed Procedures p Left Custom Total Knee Arthroplasty - Scott Fletcher MD Date/Time: 04/24/23 11:06 Surgeon: Scott Fletcher MD Pre Op Diagnosis: Prim OA Lt Knee Patient Data Age: 61 Gender: M Height: 1.85 m Weight: 92.1 kg Last Vital Signs Temp 99.3 F 03/28/23 14:15 Pulse 78 03/28/23 14:15 Resp 16 03/28/23 14:15 BP 127/68 03/28/23 14:15 Pulse Ox 97 03/28/23 14:15 O2 Del Method Room Air 03/28/23 14:15 Allergies Allergy/AdvReac Type Severity Reaction Status Date / Time lisinopril Allergy LIPS Verified 04/24/23 10:35 SWELLING Home Medications Medication Instructions Recorded Confirmed Type albuterol sulfate 90 mcg/actuation 2 puff inhalation QID PRN 06/13/22 04/24/23 Rx aerosol inhaler shortness of breath or wheezing #6.7 grams celecoxib 200 mg capsule 200 mg PO DAILY #90 caps 01/17/23 04/24/23 Rx losartan 50 mg-hydrochlorothiazide 1 tablet PO QAM 01/17/23 04/24/23 History 12.5 mg tablet oxycodone-acetaminophen 7.5 mg-325 1 tablet PO Q6H PRN Pain 01/17/23 04/24/23 History mg tablet Patient hx anesthesia problems: none Family hx anesthesia problems: none Results Review: All pre-operative results and documents have been reviewed as part of the pre-operative evaluation. [facility] Past Medical History Medical History Asthma Colon cancer screening History of stress test (~2020) Hypertension Surgical History Surgical History History of surgical removal of meniscus of knee Family History Family History Father Cancer Mother Cancer Sibling Arthritis Social History Social History Smoking status: Never smoker Alcohol intake: current Drinks per week: 14 Substance use: current Substance use type: marijuana Other substance usage details: SMOKES MARIJUANA DAILY Living arrangements: with family Additional living arrangements comments: Gender identity (if verbalized by the patient): Male Spiritual care concerns: No Anes - Eval Final PreProcedure Day of Procedure 04/24/23 11:06 Patient weight: normal Heart: regular rate and rhythm Lungs: clear to auscultation Airway: Mallampati scale class II Neurological: alert and oriented Last oral intake: >/= 8 hours ASA classification: III Emergent: no Anesthetic plan: proceed Anesthesia type and monitoring: general LMA and standard monitoring Results Review: All pre-operative results and documents have been reviewed as part of the pre-operative evaluation. Informed Consent: The patient's anesthetic plan and its attendant risks and benefits were discussed with the patient/family/POA. Questions were solicited and answers provided to the satisfaction of the patient/family/POA.
[2023-04-24] MEDS: TRANEXAMIC ACID 1,000MG/ISO100 1,000 MG/100 ML BAG 200 MG IVPB (11:23)
[2023-04-24] MEDS: ACETAMINOPHEN 500 MG TABLET 1000 MG PO ×3 (11:24→21:28)
[2023-04-24] MEDS: LACTATED RINGERS 1,000 ML 30 ML IV CONT ×2 (12:01→15:12)
--- NOTE | 2023-04-24 12:18 | WPDANESPNB ---
Anes - Peripheral Nerve Block Date/Time: 04/24/23 12:18 I have discussed with the patient/family/POA the placement of a peripheral nerve block for post-operative pain management, including associated risks, benefits, complications, and side effects. Alternative methods of post-operative analgesia were detailed. Questions were solicited and answers provided to the satisfaction of the patient/family/POA. Time-Out: A pre-procedural Time-Out was completed immediately before starting the procedure and confirmed: Patient Identification, Site, Procedure, Patient Position and the Availability of Requisite Equipment. Clinical Indications: Acute post-operative pain management requested by the operative surgeon. Nerve Block Insertion Note Anes-nerve block: femoral left Patient position: supine Skin prep: chlorhexidine Needle: 22 gauge, stimulating, insulated echogenic needle. Needle length: 50 mm Technique: nerve stimulation lost at (mA) (0.45) Injectate: bupivacaine 0.5% with epi 5 mcg/ml (20cc) Observations: tolerated well Complications: none Procedure start time:: 1215 Procedure end time:: 1220
[2023-04-24] MEDS: ceFAZolin 2 GM/D5W 50 ML 2 GM/50 ML BAG IVPB ×2 (12:23→21:28)
[2023-04-24] MEDS: GENTAMICIN BONE CEMENT REFOBACIN 1 EACH TOPICAL (13:21)
--- NOTE | 2023-04-24 15:44 | P.OP_ITS ---
Procedure Note - Detailed Date of Procedure 04/24/23 Pre-op Diagnosis Degenerative arthritis left knee Post-op Diagnosis Same Procedure Performed Total knee arthroplasty, left. Surgeon Scott Fletcher MD Early Years Teacher Denice Jefferson PA-C Anesthesia General and Regional (Subsartorial block.) Findings Extensive proliferative synovitis. Hypertrophic disease with complete loss of cartilage. Moderate medial release performed. Good bone quality. Description of Procedure Preoperative antibiotics were given. The limb was prepped and draped in the usual sterile fashion with a well-padded tourniquet high on the thigh. The limb was exsanguinated and the tourniquet inflated to 300 mmHg. A longitudinal incision was created just medial to the patella. A trivector approach to the knee was performed. Arthrotomy was taken down through the joint capsule. No significant releases were initially taken. The femur was exposed and the F1 jig was applied. The coring tool was used to remove the cartilage for the F2 jig to sit flush with the bone. The jig was pinned and the distal cut carefully taken. Caliper measurements confirmed appropriate bony resections according to the preoperative templated plan. The F4 cutting jig for the femur was applied, at the standard rotation. The AP and anterior chamfer cuts were taken. The F5 jig was applied and the posterior chamfer cuts were taken. The tibia was prepared using the T1 jig, after removing cartilage for the jig contact points. Proper alignment was checked with the alignment hunter. The tibia was cut using the T1u guide. Gap balancing was performed. Gap measurements were taken and the knee was trialed. Excellent alignment and soft tissue balancing was confirmed. The posterior cruciate ligament was recessed along the proximal tibia. The patella was cut for resurfacing. Three lug holes were drilled. Meniscal remnants were removed. The trial components were assembled. Excellent range of motion and proper soft tissue balancing were confirmed throughout the full range of motion. Patellar tracking was excellent. The knee was copiously irrigated periodically throughout the procedure. The real implants were cemented into position. Excess cement was carefully removed. The wound was closed in layers with interrupted #1 Vicryl suture, #2 strata fix suture, 2-0 strata fix suture, 3-0 strata fix suture. Steri-Strips placed on the skin with the knee flexed. Sterile bulky dressing applied. The patient was brought to the recovery room in stable condition. There were no complications. [Physician post production assistant, Denice Jefferson PA-C, required for surgery; including patient positioning, draping, tissue retraction, maintaining instrument position, cement removal, wound closure, and dressing placement.] Implants Conformis Imprint total knee arthroplasty. Cemented. Cruciate retaining. 8 mm insert. 41 mm oval patella. Estimated Blood Loss -50.0 Drains No Pathology Yes (Synovial sample) Complications No immediate complications Condition Stable Disposition PACU [facility] Billing Surgery - Charge Forward: Surgery Billing
[2023-04-24] MEDS: fentaNYL CITRATE INJ (*CRX) 100 MCG/2 ML VIAL 25 MCG IV PUSH ×4 (15:55→16:05)
[2023-04-24] MEDS: ASPIRIN 81 MG ENTERIC TABLET PO (17:16)
[2023-04-24] MEDS: SENNA/DOCUSATE SODIUM TABLET 2 TAB PO (17:16)
--- NOTE | 2023-04-24 17:41 | ADMGEN ---
This patient, Juliet Grimm, was admitted to 3 [facility] Surg Room 310-01. Patient/family oriented to hospital policies and general routines including ID bracelet, bed and alarms, visiting hours, pain management, procedures, bathroom and other care routines, personal items, smoking policy, room service/diet, and visiting hours. Information on how to activate the Rapid Response Team has been discussed. Patient/Family are encouraged to report perceived risks to care and to ask questions if they do not understand what they are told or what they should do. Report from Kimberly in PACU.
[2023-04-24] MEDS: FAMOTIDINE 20 MG TABLET PO (21:28)
[2023-04-25 02:07] VITALS: BP 115/59; PULSE 69; RESP 20; TEMP 36.6; O2SAT 99
[2023-04-25] MEDS: ACETAMINOPHEN 500 MG TABLET 1000 MG PO (04:34)
[2023-04-25] MEDS: ceFAZolin 2 GM/D5W 50 ML 2 GM/50 ML BAG IVPB ×2 (04:35→12:38)
[2023-04-25] MEDS: oxyCODONE HCL (*CRX) 5 MG TAB IR PO (05:04)
[2023-04-25 06:07] VITALS: BP 126/75; PULSE 75; RESP 18; TEMP 36.8; O2SAT 100
[2023-04-25 06:42] LABS: Basophils Percent Auto 0.2 % (0.2-1.2); Eosinophils Absolute Auto 0.1 K/mm3 (0-0.3); Eosinophils Percent Auto 0.6 % (0-4.4); Hematocrit 32.5 % (42.0-52.0); Hemoglobin 10.6 g/dL (14.0-18.0); Immature Granulocyte Absolute 0.07 K/mm3 (0.00-0.031); Immature Granulocyte Percent A 0.6 % (0-0.5); Lymphocytes Absolute Auto 1.44 K/mm3 (0.9-3.2); Lymphocytes Percent Auto 11.8 % (18.3-44.2); Mean Corpuscular HGB Conc 32.6 g/dl (32-36); Mean Corpuscular Hemoglobin 27.6 pg (26-34); Mean Corpuscular Volume 84.6 fl (80-100); Monocytes Absolute Auto 1.1 K/mm3 (0.1-0.6); Monocytes Percent Auto 9.3 % (2.6-8.5); Neutrophils Absolute Auto 9.5 K/mm3 (1.3-6.7); Neutrophils Percent Auto 77.5 % (45.5-73.1); Platelet Count Result 237 k/mm3 (150-375); Red Blood Count 3.84 M/mm3 (4.6-6.20); Red Cell Distribution Width 13.4 % (11.5-14.5); White Blood Count 12.2 K/mm3 (4.5-10.0)
[2023-04-25 06:54] LABS: Anion Gap 6 mmol/L (8-16); Blood Urea Nitrogen 13 mg/dL (9-20); Calcium 8.8 mg/dL (8.4-10.2); Carbon Dioxide 26 mmol/L (22-30); Chloride 101 mmol/L (98-107); Estimated CRCL calculation 83 ml/min; Estimated Glomerular Filt Rate > 60; Glucose 106 mg/dL (65-110); Potassium 3.3 mmol/L (3.4-5.0); Sodium 133 mmol/L (137-145)
--- NOTE | 2023-04-25 07:40 | PC.NURSE ---
I have reviewed documentation completed by Geeta Smith RN and agree with her assessments and documentation.
[2023-04-25 07:55] VITALS: BP 120/67; PULSE 72; RESP 18; TEMP 36.7; O2SAT 100
--- NOTE | 2023-04-25 08:04 | P.PNAN_ITS ---
Anes - Prog Note Post-Op Date/Time: 04/25/23 08:04 Cardiovascular status: normal Respiratory status: normal Airway patency: baseline Mental status: baseline Post-Op hydration status: normal Vital Signs: Last Vital Signs Temp 36.7 C 04/25/23 07:55 Pulse 72 04/25/23 07:55 Resp 18 04/25/23 07:55 BP 120/67 04/25/23 07:55 Pulse Ox 100 04/25/23 07:55 O2 Del Method Room Air 04/24/23 16:20 O2 Flow Rate 6 04/24/23 15:25 Pain Score (VAS): 09/16 I/O: Intake & Output 04/24/23 04/25/23 04/25/23 23:59 07:59 15:59 Intake Total 200 700 Output Total 200 325 Balance 0 375 Laboratory Tests 04/25/23 06:25 04/25/23 06:25 04/24/23 04/25/23 11:11 06:25 WBC 12.2 H RBC 3.84 L Hgb 10.6 L D Hct 32.5 L MCV 84.6 MCH 27.6 MCHC 32.6 RDW 13.4 Plt Count 237 MPV 9.0 Immature Gran % (Auto) 0.6 H Neut % (Auto) 77.5 H Lymph % (Auto) 11.8 L [place] % (Auto) 9.3 H Eos % (Auto) 0.6 Baso % (Auto) 0.2 Lymph # (Auto) 1.44 [place] # (Auto) 1.1 H Eos # (Auto) 0.1 Baso # (Auto) 0.0 Abs Immat Gran (auto) 0.07 H Absolute Neuts (auto) 9.5 H Absolute Nucleated RBC 0.0 Nucleated RBC % 0.0 Sodium 133 L Potassium 3.3 L Chloride 101 Carbon Dioxide 26 Anion Gap 6 L BUN 13 Creatinine 0.90 Estim Creat Clear Calc 83 Estimated GFR > 60 Glucose 106 Calcium 8.8 Blood Type O Negative Antibody Screen Negative Post-procedural complaints: none Patient Feedback: Patient satisfied with anesthetic care.
[2023-04-25] MEDS: predniSONE 5 MG TABLET PO (08:21)
[2023-04-25] MEDS: hydroCHLOROthiazide 12.5 MG CAPSULE PO (08:21)
[2023-04-25] MEDS: ASPIRIN 81 MG ENTERIC TABLET PO (08:21)
[2023-04-25] MEDS: polyethylene glycoL 3350 17 GM POWD.PACK PO (08:21)
[2023-04-25] MEDS: FAMOTIDINE 20 MG TABLET PO (08:22)
[2023-04-25] MEDS: CELECOXIB 200 MG CAPSULE PO (08:22)
[2023-04-25] MEDS: SENNA/DOCUSATE SODIUM TABLET 2 TAB PO (08:22)
[2023-04-25] MEDS: traMADol HCL (*CRX) 50 MG TABLET PO (08:22)
[2023-04-25] MEDS: CYCLOBENZAPRINE HCL 10 MG TABLET PO (08:23)
[2023-04-25] MEDS: LOSARTAN POTASSIUM 50 MG TABLET PO (08:23)
[2023-04-25] MEDS: oxyCODONE HCL (*CRX) 5 MG TAB IR 10 MG PO (09:08)
--- NOTE | 2023-04-25 10:37 | PM.DS ---
DS: Admitting Diagnosis Discharge Date 04/25/23 Admitting Diagnosis OA knee Left DS: Discharge Diagnosis Discharge Diagnosis (1) Status post total left knee replacement: Code(s): Z96.652 - Presence of left artificial knee joint Status: Acute Assessment and Plan: Postop day 1: Left total knee arthroplasty. Patient tolerated procedure well. No complications. Pain manageable with pain medication. No numbness or tingling. We had a lengthy discussion regarding postoperative wound care, limitations, expectations, and exercises. Patient shows good understanding. He has had initial physical therapy and is tolerating it well. DVT prophylaxis: 81 mg baby aspirin b.i.d. for 14 days. Pain medication: Percocet. Patient has followup appointment with Dr. Fletcher in 3 weeks. DS: Summary Hospital Course Reason for hospitalization: Total knee arthroplasty Hospital Course: Patient tolerated procedure well. Has had initial PT/OT. Status at Discharge Functional status at discharge: uses cane/walker Overall status at discharge: patient is progressing back to baseline Time Spent with Patient Time attestation: Total time spent providing and/or coordinating discharge services: Exam Narrative: 61-year-old male. Resting comfortably in chair. Alert and oriented x3. No acute distress. Wearing compression socks bilaterally. Dressing dry and intact without drainage. Moderate swelling. No ecchymosis. No erythema. No hematoma. Range of motion limited due to pain. Calf nontender. Neurologic status intact. No varicosities. Distal pulses palpable. DS: Data Data Completed and Pending Completed studies during hospitalization: Pending at discharge 04/24/23 13:12 Surgical [PTH] Routine Labs on day of discharge: Labs from last 24 hours 04/25/23 04/24/23 06:25 11:11 WBC 12.2 H RBC 3.84 L Hgb 10.6 L D Hct 32.5 L MCV 84.6 MCH 27.6 MCHC 32.6 RDW 13.4 Plt Count 237 MPV 9.0 Immature Gran % (Auto) 0.6 H Neut % (Auto) 77.5 H Lymph % (Auto) 11.8 L [place] % (Auto) 9.3 H Eos % (Auto) 0.6 Baso % (Auto) 0.2 Lymph # (Auto) 1.44 [place] # (Auto) 1.1 H Eos # (Auto) 0.1 Baso # (Auto) 0.0 Abs Immat Gran (auto) 0.07 H Absolute Neuts (auto) 9.5 H Absolute Nucleated RBC 0.0 Nucleated RBC % 0.0 Sodium 133 L Potassium 3.3 L Chloride 101 Carbon Dioxide 26 Anion Gap 6 L BUN 13 Creatinine 0.90 Estim Creat Clear Calc 83 Estimated GFR > 60 Glucose 106 Calcium 8.8 Blood Type O Negative Antibody Screen Negative Discharge Plan Discharge Patient Disposition: Home, Self-Care Discharge Instructions: See green instruction sheets Stand Alone Forms: General Discharge Instructions Follow-up/Referrals: Denice Jefferson PA [Physician Certified Marine Mechanic] - Discharge Medications: New aspirin 81 mg tablet,delayed release (DR/EC) 81 mg PO BID 14 Days Qty: 28 0RF oxycodone-acetaminophen 5-325 mg tablet 1 - 2 tablet PO Q4-6H MDD 6 PRN (Reason: pain) Qty: 30 0RF prednisone 5 mg tablet 5 mg PO DAILY 21 Days Qty: 21 0RF Continued losartan-hydrochlorothiazide 50-12.5 mg tablet 1 tablet PO QAM oxycodone-acetaminophen 7.5-325 mg tablet 1 tablet PO Q6H PRN (Reason: Pain) celecoxib 200 mg capsule 200 mg PO DAILY Qty: 90 0RF albuterol sulfate 90 mcg/actuation HFA aerosol inhaler 2 puff inhalation QID PRN (Reason: shortness of breath or wheezing) Qty: 6.7 0RF
[2023-04-25 11:53] VITALS: BP 105/75; PULSE 78; RESP 20; TEMP 36.3; O2SAT 98
== END 2023-04-25 14:10 | disposition home or self-care (01) ==
LOC: ANHSURGERY 12:22 → ANH3MEDSUR 16:38
PROVIDERS: Physician Assistant Surgical; PCP Internal Medicine; Visit Provider Orthopaedic Surgery
PROC: (CPT 27447; principal; 2023-04-24 12:00)
DX: M17.12 Unilateral primary osteoarthritis, left knee (principal); G89.18 Other acute postprocedural pain; J45.909 Unspecified asthma, uncomplicated; I10 Essential (primary) hypertension; Z79.51 Long term (current) use of inhaled steroids; F12.90 Cannabis use, unspecified, uncomplicated
CPT/HCPCS: 27447; 64447; 36415; 73560; 80048; 80307; 82040; 85025; 86850; 86900; 86901; 87081; 88304; 97110; 97116; 97161; 97165; 97530; 97535; A9270; C1713; C1776; J0171; J0330; J0690; J1100; J1885; J2250; J2270; J2405; J2704; J2795; J3010; J7120; J7512

== ENCOUNTER 2023-05-30 09:36 | Emergency (ER) | payer MEDICARE, SELFPAY ==
[2023-05-30] VITALS (7 sets, daily range): BP systolic 131–162; BP diastolic 66–89; PULSE 64–69; RESP 12–17; TEMP 36.9; O2SAT 96
--- NOTE | ~2023-05-30 | XR_ITS ---
Portable chest x-ray Comparison: 08/21/2022 Clinical History: Shortness of breath Findings: Lungs are clear, without focal consolidation or pleural effusion. Cardiomediastinal silho uette is stable. Bones and soft tissues are unremarkable. Impression: Normal chest. Reviewed, dictated and finalized at location . Impression: Normal chest.
--- NOTE | 2023-05-30 10:02 | ED.ASTHMA ---
HPI - Asthma General Chief Complaint: Asthma Stated Complaint: sob, asthma Time Seen by Provider: 05/30/23 09:52 History of Present Illness HPI Narrative: 61-year-old male present to the emergency department for evaluation of increased shortness of breath. Patient states for the course of the last 3 days he has had increased cough and wheezing. Patient states he does not smoke tobacco. Patient denies any prior intubations. Patient has been using his albuterol inhaler at home with no improvement last night but patient states he does feel improved now compared to last night Related Data Home Medications Medication Instructions Recorded Confirmed losartan 50 mg-hydrochlorothiazide 1 tablet PO QAM 01/17/23 05/15/23 12.5 mg tablet oxycodone-acetaminophen 7.5 mg-325 1 tablet PO Q6H PRN Pain 01/17/23 05/15/23 mg tablet Allergies Allergy/AdvReac Type Severity Reaction Status Date / Time lisinopril Allergy LIPS Verified 05/30/23 09:44 SWELLING Review of Systems Review of Systems: All systems reviewed & are unremarkable except as noted in HPI and below PMFSH Past Medical History Medical History (Updated 05/30/23 @ 11:21 by Hussein Page MD) Asthma Colon cancer screening History of stress test (~2020) Hypertension Surgical History Surgical History (Updated 05/15/23 @ 10:08 by Maria M Clinton MA) History of surgical removal of meniscus of knee Status post total left knee replacement (~04/24/23) Family History Family History Father Cancer Mother Cancer Sibling Arthritis Social History Social History Smoking status: Never smoker Alcohol intake: current Drinks per week: 10 Substance use: current Substance use type: marijuana Other substance usage details: SMOKES MARIJUANA DAILY Last use: 04/23/23 Lack of Transportation: No Lack of Food: Never True Current Housing: I Have Housing Concerned About Future Housing: No Difficulty Paying Gas/Electric Bills: No Difficulty Paying for Meds: No Currently Unemployed: No Education: Don't Know Difficulty w/ Childcare or Family Care: No Living arrangements: with family Additional living arrangements comments: Gender identity (if verbalized by the patient): Male Spiritual care concerns: No Exam Narrative: APPEARANCE: Well appearing, no pain, no distress, well-nourished. HEAD: normocephalic, atraumatic. EYES: PERRLA/EOMI, conjunctivae clear. NOSE: Normal no drainage EARS:TMS clear with good light reflex. THROAT: Pharynx clear, no exudate. NECK: Supple. No adenopathy, no masses. RESPIRATORY: Airway patent, respirations nonlabored. Clear to auscultation bilaterally, no rales, rhonchi, wheezing. CARDIOVASCULAR: Regular rate and rhythm without murmurs rubs or gallops. ABDOMINAL: Soft, nontender, nondistended, normal bowel sounds MUSCULOSKELETAL: Moves all extremities. Strength/ROM intact, No edema, No calf tenderness. NEURO: Alert. Cranial nerves II through XII intact. Grossly intact Course Course Emergency Course: 61-year-old male with history of asthma presented to the emergency department for evaluation of worsening cough and wheeze. Chest x-ray showed no acute cardiopulmonary normality and patient was negative for influenza RSV and COVID. Patient did feel better with a breathing treatment. Patient is requesting discharge home. Patient is being started on a steroid burst and was encouraged to continue taking his nebulized albuterol. All questions concerns were addressed and patient was comfortable with the plan for discharge and close follow-up Vital Signs Vital signs: Vital Signs Temperature 98.4 F 05/30/23 09:41 Pulse Rate 69 05/30/23 09:41 Respiratory Rate 17 05/30/23 09:41 Blood Pressure 162/89 H 05/30/23 09:41 Pulse Oximetry 96 05/30/23 09:41 Oxygen Del
[2023-05-30] MEDS: ALBUTEROL SULFATE NEB 2.5 MG/3 ML INH INHALATION (10:11)
[2023-05-30 10:46] LABS: Influenza A QL RT-PCR Negative (Negative); Influenza B QL RT-PCR Negative (Negative); RSV RNA, RT-PCR Negative (Negative); SARS-CoV-2 RNA PCR Negative (Negative)
[2023-05-30] MEDS: predniSONE 20 MG TABLET 40 MG PO (11:31)
== END 2023-05-30 11:31 | disposition home or self-care (01) ==
PROVIDERS: Emergency Provider Emergency Medicine; PCP Internal Medicine
DX: J45.901 Unspecified asthma with (acute) exacerbation (principal); I10 Essential (primary) hypertension
CPT/HCPCS: 71045; 87637; 94640; 99283; J7512

== ENCOUNTER 2023-09-18 04:17 | Emergency (ER) | payer MEDICARE, SELFPAY ==
--- NOTE | ~2023-09-18 | XR_ITS ---
Portable chest x-ray Comparison: 05/30/2023 Clinical History: Shortness of breath Findings: Lungs are clear, without focal consolidation or pleural effusion. Cardiomediastinal silho uette is stable. Bones and soft tissues are unremarkable. Impression: Clear lungs. Reviewed, dictated and finalized at location . [employer] Impression: Clear lungs.
[2023-09-18 04:21] VITALS: BP 166/85; PULSE 84; RESP 20; TEMP 36.7; O2SAT 97
[2023-09-18 04:28] VITALS: BP 181/90; PULSE 83; PULSE 84; RESP 18; O2SAT 96; O2SAT 97
[2023-09-18] MEDS: SODIUM CHLORIDE 0.9% IV 1,000 ML 999 ML IV CONT (05:57)
[2023-09-18] MEDS: IPRATROPIUM BR 0.02% INH SOLN 0.5 MG/2.5 ML VIAL 1 MG INHALATION (05:58)
[2023-09-18] MEDS: ALBUTEROL SULFATE NEB 2.5 MG/3 ML INH 10 MG INHALATION (05:58)
[2023-09-18] MEDS: MAGNESIUM SULF 2 GM/WATER 50ML 2 GM/50 ML BAG IVPB (06:00)
[2023-09-18 06:05] VITALS: BP 158/98; PULSE 74; RESP 18; O2SAT 100
--- NOTE | 2023-09-18 06:47 | ED.GENADULT ---
HPI - General Adult General Chief complaint: Shortness of Breath/Dyspnea Stated complaint: asthma Time Seen by Provider: 09/18/23 05:21 History of Present Illness HPI narrative: 62-year-old male history of asthma presenting for difficulty breathing. Patient says he has had progressively worse dyspnea over the last 2-3 days. Denies fevers productive cough or URI symptoms. patient has been using his inhaler at home without relief. Related Data Home Medications Medication Instructions Recorded Confirmed losartan 50 mg-hydrochlorothiazide 1 tablet PO QAM 01/17/23 07/28/23 12.5 mg tablet Allergies Allergy/AdvReac Type Severity Reaction Status Date / Time lisinopril Allergy LIPS Verified 07/28/23 08:18 SWELLING PMFSH Past Medical History Medical History Asthma Colon cancer screening History of stress test (~2020) Hypertension Surgical History Surgical History History of surgical removal of meniscus of knee Status post total left knee replacement (~04/24/23) Family History Family History Father Cancer Mother Cancer Sibling Arthritis Social History Social History Smoking status: Never smoker Alcohol intake: current Drinks per week: 10 Substance use: current Substance use type: marijuana Other substance usage details: SMOKES MARIJUANA DAILY Last use: 04/23/23 Lack of Transportation: No Lack of Food: Never True Current Housing: I Have Housing Concerned About Future Housing: No Difficulty Paying Gas/Electric Bills: No Difficulty Paying for Meds: No Currently Unemployed: No Education: Don't Know Difficulty w/ Childcare or Family Care: No Living arrangements: with family Additional living arrangements comments: Gender identity (if verbalized by the patient): Male Spiritual care concerns: No Exam Narrative: APPEARANCE: No apparent distress. Head: atraumatic. EYES: EOMI, NOSE: Atraumatic NECK: Trachea midline RESPIRATORY: Tachypneic, wheezing in all [place], speaking in full sentences CARDIOVASCULAR: RRR, ABDOMINAL: Non-distended MUSCULOSKELETAl: No obvious deformities NEURO: Alert. Moving 4/4 extremities SKIN:: Warm, dry. Normal color PSYCHIATRIC: Normal affect Course Vital Signs Vital signs: Vital Signs Temperature 98.0 F 09/18/23 04:21 Pulse Rate 84 09/18/23 04:21 Respiratory Rate 20 09/18/23 04:21 Blood Pressure 166/85 H 09/18/23 04:21 Pulse Oximetry 97 09/18/23 04:21 Oxygen Delivery Room Air 09/18/23 04:21 Temperature 98.0 F 09/18/23 04:21 Pulse Rate 74 09/18/23 06:05 Respiratory Rate 18 09/18/23 06:05 Blood Pressure 158/98 H 09/18/23 06:05 Pulse Oximetry 100 09/18/23 06:05 Oxygen Delivery Room Air 09/18/23 04:28 Medical Decision Making MDM Narrative Medical decision making narrative: -Course: 62-year-old male history of asthma presenting with difficulty breathing. Treated with DuoNebs dexamethasone magnesium with improvement. patient discharged. 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
[2023-09-18 07:12] VITALS: BP 150/96; PULSE 76; RESP 15; O2SAT 99
== END 2023-09-18 07:13 | disposition home or self-care (01) ==
PROVIDERS: Emergency Provider Emergency Medicine; PCP Internal Medicine
DX: J45.909 Unspecified asthma, uncomplicated (principal); I10 Essential (primary) hypertension; Z96.652 Presence of left artificial knee joint
CPT/HCPCS: 71045; 96365; 96375; 99284; J1100; J3475; J7030

== ENCOUNTER 2024-01-15 14:07 | Outpatient (CLI) | payer MEDICARE, SELFPAY ==
--- NOTE | ~2024-01-15 | XR_ITS ---
Left Hand Technique: PA, oblique, and lateral views were obtained. Clinical History: Pain Findings: No acute fracture or dislocation is seen. Osseous alignment is anatomic. There is moderate degenerative change of the second and third MCP joints. There is advanced degenerative change of the first MCP joint and first CMC joint. There is mild degenerative change of the interphalangeal joint o f the thumb. Soft tissues are unremarkable. Impression: Polyarthritis, as detailed above. Reviewed, dictated and finalized at location M. Impression: Polyarthritis, as detailed above.
--- NOTE | ~2024-01-15 | XR_ITS ---
Right Hand Technique: PA, oblique, and lateral views were obtained. Clinical History: Pain Findings: No acute fracture or dislocation is seen. There is advanced degenerative change of the firs t MCP joint. There is advanced degenerative change of the fourth PIP joint.. Soft tissues are unremar kable. Impression: Degenerative changes, as detailed above. Reviewed, dictated and finalized at location M. Impression: Degenerative changes, as detailed above.
--- NOTE | ~2024-01-15 | XR_ITS ---
[id number] Ordering provider: Soledad Lucas, History: . R shoulder pain,cervical radiculopathy,R arm pain . Comparison: None. FINDINGS: VERTEBRAL BODIES: Normal height and alignment. No visible fracture or subluxation. The dens is intact . Degenerative changes of the spine. DISK SPACES: Narrowing of the disc C3-C4, and C5-C6. Multilevel facet degenerative disease. Multileve l uncovertebral joint osteoarthritic changes. Multilevel narrowing of the disc space seen in the thor acic area. PARASPINOUS SOFT TISSUES: No prevertebral soft tissue swelling. IMPRESSION: No acute osseous abnormality cervical spine. Consider follow up MRI of the cervical spine if patient has continued neck pain and if there is veto rn for spinal stenosis. Reviewed, dictated and finalized at location A. IMPRESSION: No acute osseous abnormality cervical spine. Consider follow up MRI of the cervical spine if patient has continued neck pain and if there is concern for spinal stenosis.
== END 2024-01-15 14:08 ==
PROVIDERS: PCP Internal Medicine; Visit Provider Internal Medicine
DX: M25.511 Pain in right shoulder (principal); M54.12 Radiculopathy, cervical region; M79.601 Pain in right arm; M19.041 Primary osteoarthritis, right hand; M19.042 Primary osteoarthritis, left hand
CPT/HCPCS: 72040; 73130

== ENCOUNTER 2024-02-14 08:23 | Outpatient (CLI) | payer MEDICARE, SELFPAY ==
--- NOTE | ~2024-02-14 | XR_ITS ---
XR knee RT min 4V Ordering provider: Scott Fletcher MD History: . M17.11 - Unilateral primary osteoarthritis, right knee . Comparison: February 04, 2022 FINDINGS: BONES: No acute fracture or dislocation. Osteopenia of the bones. JOINT SPACES: Narrowing of the lateral compartment of the knee joint. Slight narrowing of the medial compartment. Narrowing of the patellofemoral joint with marginal size. SOFT TISSUES: Normal. IMPRESSION: No acute osseous abnormality right knee. Severe osteoarthritic changes. Reviewed, dictated and finalized at location A.
--- NOTE | ~2024-02-14 | XR_ITS ---
XR knee LT 3V Ordering provider: Scott Fletcher MD History: . Z96.652 - Presence of left artificial knee joint . Comparison: June 12, 2023 FINDINGS: BONES: No acute fracture or dislocation. JOINT SPACES: Total knee arthroplasty. SOFT TISSUES: Normal. IMPRESSION: No acute osseous abnormality left knee. Total knee arthroplasty. Reviewed, dictated and finalized at location A.
== END 2024-02-14 08:24 | disposition home or self-care (01) ==
LOC: ANHIMG 08:27
PROVIDERS: PCP Internal Medicine; Visit Provider Orthopaedic Surgery
DX: M17.11 Unilateral primary osteoarthritis, right knee (principal); Z96.652 Presence of left artificial knee joint
CPT/HCPCS: 73562; 73564

== ENCOUNTER 2024-02-23 08:28 | Outpatient (CLI) | payer MEDICARE, SELFPAY ==
--- NOTE | ~2024-02-23 | CT_ITS ---
EXAMINATION: CT LE RT wo con DATE: 02/23/2024 09:04 INDICATION: Right knee osteoarthritis for preoperative planning TECHNIQUE: High resolution computed tomography (CT) of the right lower extremity from the hip through the ankle was performed without intravenous contrast. Additional sagittal and coronal reconstruction s were performed. Automated exposure control and iterative reconstruction technique were employed. Th e dose-length product was 1973.36 mGy-cm. COMPARISON: Right knee radiographs dated 02/14/2024 FINDINGS: No fracture. 8 degree of genu valgus on nonweightbearing imaging which likely underestimate the degre e of angulation with only mild narrowing of the lateral compartment of the knee despite remodeling of the articular surface at the lateral tibial plateau and lateral femoral condyle consistent with clay re joint space narrowing with [id number] apposition and weightbearing. There are large marginal ost eophytes in all 3 compartments of the knee. Subarticular cystic changes along the volar and radial an d posterolateral aspect of the medial tibial plateau and posterior horn of the lateral tibial plateau . Large central subchondral osteophytes at the trochlear groove. Chondrocalcinosis at the right knee. Moderate right knee joint effusion. Loose osteochondral body at the popliteal recess. Mild to moderate osteoarthritis at the right hip with posterior predominant joint space narrowing and small marginal osteophytes along the rim of the acetabulum. Bone island at the anterior right acetab ulum. Mild osteoarthritis at the right ankle with small marginal osteophytes and mild subarticular cy stic change along the lateral rim of the talar dome. No pathologically enlarged right pelvic or ingui nal lymphadenopathy. IMPRESSION: 1. Advanced lateral compartment predominant tricompartmental osteoarthritis at the right knee. Reviewed, dictated and finalized at location A.
[2024-02-23 09:21] LABS: Hematocrit 44.6 % (42.0-52.0); Hemoglobin 14.2 g/dL (14.0-18.0)
--- NOTE | 2024-02-23 09:22 | ECG_ITS ---
Test Date: 2024-02-23 09:34:30 Measurements Intervals [place] Rate: 58 P: 39 [place]: 229 QRS: -7 QRSD: 98 T: 28 QT: 398 QTc: 393 Interpretive Statements SINUS BRADYCARDIA WITH FIRST DEGREE AV BLOCK VOLTAGE CRITERIA FOR LVH BASELINE ARTIFACT- I, II BORDERLINE ECG No previous ECG available for comparison Electronically Signed On 02-23-2024 11:04:35 CDT by Sandro Mcdaniels D.O.
[2024-02-23 09:35] LABS: Albumin Level 4.6 g/dL (3.5-5.1); Estimated Glomerular Filt Rate > 60
[2024-02-23 09:45] LABS: Urine Cotinine NEGATIVE
== END 2024-02-23 08:29 | disposition home or self-care (01) ==
PROVIDERS: PCP Internal Medicine; Visit Provider Orthopaedic Surgery
DX: M17.11 Unilateral primary osteoarthritis, right knee (principal); Z79.899 Other long term (current) drug therapy; I10 Essential (primary) hypertension; Z92.89 Personal history of other medical treatment; I44.0 Atrioventricular block, first degree
CPT/HCPCS: 73700; 80307; 82040; 82565; 85014; 85018; 93005

== ENCOUNTER 2024-07-27 06:51 | Emergency (ER) | payer MEDICARE, SELFPAY ==
--- NOTE | ~2024-07-27 | XR_ITS ---
EXAMINATION: XR chest 2V DATE: 07/27/2024 07:36 INDICATION: Shortness of breath. TECHNIQUE: Frontal and lateral views of the chest were obtained. COMPARISON: Chest single view 09/18/2023 FINDINGS: There is no pneumonia, pleural effusion, or pneumothorax. The heart size is normal. IMPRESSION: 1. No acute cardiopulmonary disease. Reviewed, dictated and finalized at location A. 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
--- NOTE | 2024-07-27 06:56 | ECG_ITS ---
Test Date: 2024-07-27 06:59:18 Measurements Intervals [place] Rate: 73 P: 61 [place]: 200 QRS: 32 QRSD: 90 T: 61 QT: 364 QTc: 403 Interpretive Statements SINUS RHYTHM POSSIBLE LEFT ATRIAL ENLARGEMENT [-0.1mV P-WAVE IN V1/V2] SEPTAL MYOCARDIAL INFARCTION , PROBABLY OLD [40+ ms Q WAVE IN V1/V2] Compared to ECG 02/23/2024 09:34:30 Myocardial infarct finding now present Sinus bradycardia no longer present First degree AV block no longer present Left ventricular hypertrophy no longer present Electronically Signed On 07-27-2024 07:45:26 HOG WORKER by Jalil Gramajo M.D.
[2024-07-27 06:57] VITALS: BP 187/102; PULSE 74; RESP 12; TEMP 36.6; O2SAT 92
[2024-07-27 07:01] VITALS: BP 159/89; PULSE 72; PULSE 73; RESP 14; O2SAT 96
[2024-07-27 07:10] LABS: Basophils Absolute Auto 0.1 K/mm3 (0.0-0.1); Basophils Percent Auto 0.8 % (0.2-1.2); Eosinophils Percent Auto 10.3 % (0-4.4); Hematocrit 43.6 % (42.0-52.0); Hemoglobin 14.2 g/dL (14.0-18.0); Immature Granulocyte Absolute 0.02 K/mm3 (0.00-0.031); Immature Granulocyte Percent A 0.2 % (0-0.5); Lymphocytes Absolute Auto 1.29 K/mm3 (0.9-3.2); Mean Corpuscular HGB Conc 32.6 g/dl (32-36); Mean Corpuscular Hemoglobin 27.5 pg (26-34); Mean Corpuscular Volume 84.3 fl (80-100); Mean Platelet Volume 9.1 fl (7.4-10.4); Monocytes Absolute Auto 0.7 K/mm3 (0.1-0.6); Monocytes Percent Auto 7.7 % (2.6-8.5); Neutrophils Absolute Auto 6.2 K/mm3 (1.3-6.7); Platelet Count Result 302 k/mm3 (150-375); Red Blood Count 5.17 M/mm3 (4.6-6.20); Red Cell Distribution Width 13.5 % (11.5-14.5); White Blood Count 9.2 K/mm3 (4.5-10.0)
[2024-07-27 07:21] LABS: Alanine Aminotransferase 43 U/L (6-50); Albumin Level 4.8 g/dL (3.5-5.1); Alkaline Phosphatase 86 U/L (38-126); Anion Gap 9 mmol/L (4-12); Aspartate Amino Transferase 42 U/L (17-59); Bilirubin,Total 1.4 mg/dL (0.2-1.3); Blood Urea Nitrogen 11 mg/dL (9-20); Calcium 9.9 mg/dL (8.4-10.2); Carbon Dioxide 25 mmol/L (22-30); Chloride 105 mmol/L (98-107); Estimated CRCL calculation 84 ml/min; Estimated Glomerular Filt Rate > 60; Glucose 125 mg/dL (65-110); Lipase 47 U/L (23-300); Potassium 4.2 mmol/L (3.4-5.0); Sodium 139 mmol/L (137-145)
[2024-07-27 07:22] LABS: Prothrombin Time 13.9 Seconds (11.1-14.7)
[2024-07-27 07:23] LABS: Partial Thromboplastin Time 28.8 Seconds (22.3-36.8)
[2024-07-27 07:32] LABS: Troponin I < 0.012 ng/mL (0.000-0.034)
[2024-07-27] MEDS: methylPREDNISolone SOD SUCC 125 MG VIAL IV PUSH (07:41)
[2024-07-27 07:50] VITALS: PULSE 66; RESP 16; O2SAT 94
[2024-07-27] MEDS: IPRATROPIUM BR 0.02% INH SOLN 0.5 MG/2.5 ML VIAL 1.5 MG INHALATION (07:50)
[2024-07-27] MEDS: ALBUTEROL SULFATE NEB 2.5 MG/3 ML INH 15 MG INHALATION (07:50)
--- NOTE | 2024-07-27 08:57 | ECG_ITS ---
Test Date: 2024-07-27 08:58:45 Measurements Intervals [place] Rate: 74 P: 38 [place]: 199 QRS: -5 QRSD: 94 T: 47 QT: 371 QTc: 412 Interpretive Statements SINUS RHYTHM Compared to ECG 07/27/2024 06:59:18 Myocardial infarct finding no longer present Electronically Signed On 07-27-2024 09:19:34 TEST PREPARER by Jalil Gramajo M.D.
[2024-07-27 09:03] VITALS: PULSE 77; RESP 18
--- NOTE | 2024-07-27 09:14 | ED_ITS ---
HPI - SOB/Dyspnea General Chief Complaint: Shortness of Breath/Dyspnea Stated Complaint: sob Time Seen by Provider: 07/27/24 07:05 History of Present Illness HPI Narrative: Patient is a 62-year-old male who presents ER with shortness of breath. Worsening over last 2 days. Feels himself wheezing. No improvement with albuterol. No fevers or chills or sweats. No chest pain or chest pressure. Had similar symptoms 1 year ago that required him to come the hospital. Related Data Home Medications ?Medication ?Instructions ?Recorded ?Confirmed ?Last Taken ?Type losartan 50 mg-hydrochlorothiazide 1 tablet PO QAM 01/17/23 02/15/24 04/24/23 History 12.5 mg tablet Allergies Allergy/AdvReac Type Severity Reaction Status Date / Time lisinopril Allergy LIPS Verified 02/14/24 09:53 SWELLING Review of Systems 2 Review of Systems: All systems reviewed & are unremarkable except as noted in HPI and below Constitutional: Constitutional: Reports no additional constitutional complaints ENT: Reports system reviewed and no additional complaints, except as documented Cardiovascular: Cardiovascular: Reports no additional cardiovascular complaints Respiratory: Respiratory: Denies chest congestion, Denies cough, Reports dyspnea and Reports wheezing Gastrointestinal: Gastrointestinal: Reports no additional gastrointestinal complaints [facility] Past Medical History Medical History Asthma Colon cancer screening History of stress test (~2020) Hypertension Surgical History Surgical History History of surgical removal of meniscus of knee Status post total left knee replacement (~04/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) Family History Family History Father Cancer Mother Cancer Sibling Arthritis Social History Social History Smoking status: Never smoker Alcohol intake: current Drinks per week: 10 Substance use: current Substance use type: marijuana Other substance usage details: SMOKES MARIJUANA DAILY Last use: 04/23/23 Do You Feel Safe in your Home?: Yes Lack of Transportation: No Lack of Food: Never True Current Housing: I Have Housing Concerned About Future Housing: No Difficulty Paying Gas/Electric Bills: No Difficulty Paying for Meds: YES Currently Unemployed: No Education: High School Diploma/GED Difficulty w/ Childcare or Family Care: No Living arrangements: with family Additional living arrangements comments: Gender identity (if verbalized by the patient): Male Spiritual care concerns: No Exam 2 Narrative: GENERAL: Well-appearing, well-nourished, and in no acute distress. HEAD: Normocephalic, atraumatic. ENT: Mucous membranes moist. CHEST: Diffuse expiratory wheezing. No respiratory distress. HEART: Regular rate and rhythm. Normal peripheral pulses. ABDOMEN: Soft, nontender, nondistended. EXTREMITIES: Normal range of motion. No edema. SKIN: Warm, dry, no rash. NEURO: Alert and oriented x3. PSYCH: Normal mood and affect. Course Course Emergency Course: Lungs clear after hour long neb treatment. Received IV Solu-Medrol. Chest x- ray without pneumonia. Labs normal. Discharge. Vital Signs Vital signs: Vital Signs Temperature 97.8 F 07/27/24 06:57 Pulse Rate 74 07/27/24 06:57 Respiratory Rate 12 07/27/24 06:57 Blood Pressure 187/102 H 07/27/24 06:57 Pulse Oximetry 92 07/27/24 06:57 Oxygen Delivery Room Air 07/27/24 06:57 Temperature 97.8 F 07/27/24 06:57 Pulse Rate 77 07/27/24 09:03 Respiratory Rate 18 07/27/24 09:03 Blood Pressure 159/89 H 07/27/24 07:01 Pulse Oximetry 94 07/27/24 07:50 Oxygen Delivery Room Air 07/27/24 07:50 Fraction of Inspired Oxygen 21 07/27/24 07:50 MDM - SOB/Dyspnea Lab Data 07/27/24 07:05 07/27/24 07:05 Labs: Lab Results 07/27/24 Range/Units 07:05 WBC 9.2 (4.5-10.0) K/mm3 RBC 5.17 (4.6-6.20) M/mm3 Hgb 14.2 (14.0-18.0) g/dL Hct 43.6 (42.0-52.0) % MCV 84.3 (80-100) fl MCH 27.5 (26-34) pg MCHC 32.6 (32-36) g/dl RDW 13.5 (11.5-14.5) % Plt Count 302 (150-375) k/mm3 MPV 9.1 (7.4-10.4) fl Immature Gran % (Auto) 0.2 (0-0.5) % Neut % (Auto) 67.0 (45.5-73.1) % Lymph % (Auto) 14.0 L (18.3-44.2) % [place] % (Auto) 7.7 (2.6-8.5) % Eos % (Auto) 10.3 H (0-4.4) % Baso % (Auto) 0.8 (0.2-1.2) % Lymph # (Auto) 1.29 (0.9-3.2) K/mm3 [place] # (Auto) 0.7 H (0.1-0.6) K/mm3 Eos # (Auto) 1.0 H (0-0.3) K/mm3 Baso # (Auto) 0.1 (0.0-0.1) K/mm3 Abs Immat Gran (auto) 0.02 (0.00-0.031) K/mm3 Absolute Neuts (auto) 6.2 (1.3-6.7) K/mm3 Absolute Nucleated RBC 0.000 (0.0-0.012) K/mm3 Nucleated RBC % 0.0 (0.0-0.2) % PT 13.9 (11.1-14.7) Seconds INR 1.0 APTT 28.8 (22.3-36.8) Seconds Sodium 139 (137-145) mmol/L Potassium 4.2 (3.4-5.0) mmol/L Chloride 105 (98-107) mmol/L Carbon Dioxide 25 (22-30) mmol/L Anion Gap 9 (4-12) mmol/L BUN 11 (9-20) mg/dL Creatinine 1.00 (0.7-1.3) mg/dL Estim Creat Clear Calc 84 ml/min Estimated GFR > 60 (59 - ) Glucose 125 H (65-110) mg/dL Calcium 9.9 (8.4-10.2) mg/dL Total Bilirubin 1.4 H (0.2-1.3) mg/dL AST 42 (17-59) U/L ALT 43 (6-50) U/L Alkaline Phosphatase 86 (38-126) U/L Troponin I < 0.012 (0.000-0.034) ng/mL Total Protein 8.0 (6.3-8.2) g/dL Albumin 4.8 (3.5-5.1) g/dL Lipase 47 (23-300) U/L Imaging Data Radiologist's impression: ITS Impressions Chest X-Ray 07/27/24 07:39 IMPRESSION: 1. No acute cardiopulmonary disease. Discharge Plan Discharge Clinical Impression: Asthma exacerbation Patient Disposition: Home, Self-Care Condition: Stable Instructions: Asthma (ED) Additional Instructions: Please return to the emergency department if you develop severe and persistent chest pain, difficulty breathing, dizziness, leg swelling or if you are coughing up blood as these can be signs of a medical emergency. Please call your doctor for a follow up appointment to determine the need for further testing. Patient Language: Maltese Prescriptions: New ipratropium-albuterol 0.5 mg-3 mg(2.5 mg base)/3 mL solution for nebulization 3 ml inhalation QID PRN (Reason: shortness of breath) Qty: 90 0RF prednisone 50 mg tablet 50 mg PO DAILY Qty: 7 0RF No Action losartan-hydrochlorothiazide 50-12.5 mg tablet 1 tablet PO QAM albuterol sulfate 90 mcg/actuation HFA aerosol inhaler 2 puff inhalation QID PRN (Reason: shortness of breath or wheezing) Qty: 6.7 0RF ipratropium-albuterol 0.5 mg-3 mg(2.5 mg base)/3 mL solution for nebulization 3 ml inhalation Q4H PRN (Reason: wheezing) Qty: 90 0RF oxycodone-acetaminophen [Percocet] 5-325 mg tablet 1 tablet PO Q6H MDD 4 PRN (Reason: pain) Qty: 20 0RF tramadol 50 mg tablet 50 mg PO Q6H PRN (Reason: pain) Qty: 30 0RF Follow-up/Referrals: Lance,MD Soledad [Primary Care Provider] - 1 Week
[2024-07-27 09:25] VITALS: BP 138/80; PULSE 80; RESP 16; O2SAT 98
--- OUTSIDE RECORDS SUMMARY | 2024-08-03 03:22 | XMS_ITS | Clinical Summary ---
Author Organization [facility] Address [address] [place] [address]. [place] [address] [place] [address] Care Team Providers Care Sports Photographer Name Role Phone Soledad Lucas MD Primary Care Provider [phone] Allergies Active Allergy Reactions Criticality Noted Date Comments Lisinopril Swelling 10/25/2021 Swollen lips Medications NEBULIZER DEVICE, DME,Indications:Mo derate persistent asthma with acute exacerbation (HHS/HCC),Acute bronchitis, unspecified organism Take 1 Device by nebulization every 6 (six) hours as needed. Use for asthma attack. 1 Device 06/13/20 22 Active atorvastatin (LIPITOR) 40 MG tabletIndications: Mixed hyperlipidemia Take 1 tablet (40 mg total) by mouth nightly at bedtime. 90 tablet 1 03/13/20 24 Active gabapentin (NEURONTIN) 400 MG capsuleIndications :pt not sure of mg Take 1 capsule (400 mg total) by mouth 3 (three) times daily. Indications: pt not sure of mg 90 capsule 1 03/13/20 24 Active vitamin D2, ergocalciferol, (DRISDOL) 1.25 mg capsuleIndications :Vitamin D deficiency Take 1 capsule (50,000 Units total) by mouth every 7 days. 12 capsule 3 03/13/20 24 Active ipratropium-albute rol (DUONEB) 0.5-2.5 (3) MG/3ML SolutionIndication s:Mild intermittent asthma with acute exacerbation (HHS/HCC) Take 3 mLs by nebulization every 6 (six) hours as needed. 360 mL 11 03/13/20 24 Active albuterol sulfate HFA 108 (90 Base) MCG/ACT inhalerIndications :Mild intermittent asthma with acute exacerbation (HHS/HCC) Inhale 2 puffs into the lungs every 6 (six) hours as needed for Wheezing. 18 g 5 03/13/20 24 Active Budeson-Glycopyrro l-Formoterol (BREZTRI AEROSPHERE) 160-9-4.8 MCG/ACT AerosolIndications :Mild intermittent asthma with acute exacerbation (HHS/HCC) Inhale 2 puffs into the lungs 2 (two) times daily. 10.7 g 5 03/13/20 24 Active celecoxib (CELEBREX) 100 MG capsuleIndications :pt not sure if this is right mg Take 1 capsule (100 mg total) by mouth 2 (two) times daily. Indications: pt not sure if this is right mg 60 capsule 2 03/13/20 24 Active montelukast (SINGULAIR) 10 MG tabletIndications: Mild intermittent asthma with acute exacerbation (HHS/HCC) Take 1 tablet (10 mg total) by mouth nightly at bedtime. 90 tablet 1 03/13/20 24 Active gabapentin (NEURONTIN) 100 MG capsuleIndications :Right shoulder pain, unspecified chronicity,Chronic bilateral low back pain with left-sided sciatica Take 4 capsules (400 mg total) by mouth 3 (three) times daily as needed. 360 capsule 5 03/19/20 24 Active ALPRAZolam (XANAX) 0.25 MG tabletIndications: Drug therapy Use on the day of the MRI cervical about 15 min before MRI. 2 tablet 04/29/20 24 Active oxyCODONE-acetamin ophen (PERCOCET) 7.5-325 MG tabletIndications: Chronic Pain Take 1 tablet by mouth daily as needed for Pain. Indications: Chronic Pain 30 tablet 07/22/20 24 Active losartan (COZAAR) 25 MG tabletIndications: Primary hypertension Take 1 tablet (25 mg total) by mouth daily. 90 tablet 1 07/24/20 24 Active losartan (COZAAR) 25 MG tabletIndications: Primary hypertension Take 1 tablet (25 mg total) by mouth daily. 90 tablet 1 03/13/20 24 024 Discontin ued(Reord er) oxyCODONE-acetamin ophen (PERCOCET) 7.5-325 MG tabletIndications: Chronic Pain Take 1 tablet by mouth daily as needed for Pain. Indications: Chronic Pain 30 tablet 03/20/20 024 Discontin ued(Reord er) oxyCODONE-acetamin ophen (PERCOCET) 7.5-325 MG tabletIndications: Chronic Pain Take 1 tablet by mouth daily as needed for Pain. Indications: Chronic Pain 30 tablet 07/08/20 024 Discontin ued(Reord er) Active Problems Problem Noted Date Diagnosed Date Cervical radiculopathy 01/12/2024 Right arm pain 01/12/2024 Prediabetes 09/30/2021 Osteoarthritis of multiple joints 09/29/2021 Primary hypertension 09/29/2021 Overweight (BMI 25.0-29.9) 09/29/2021 Mild intermittent asthma without complication (H HS/HCC) 09/29/2021 Vitamin D deficiency 09/29/2021 Derangement of posterior hor n of lateral meniscus, unspecified laterality 04/26/2012 Primary osteoarthritis of right knee 04/26/2012 Encounters Date Type Department Care Team Description 08/01/2024 Telephone [place] [address] [address] [facility] [address] [place] [address] Soledad Lucas MD Medication Information 07/27/2024 Scan xiao qu wu you INFO SRVCS Scanned, Doc Med Group 07/24/2024 Orders Only [place] [address] [facility] [address] [place] [address] Soledad Lucas MD 07/24/2024 Telephone [place] [address] [facility] [address] [place] [address] Soledad Lucas MD Medication 07/22/2024 Telephone [place] [address] [facility] [address] [place] [address] Soledad Lucas MD Medication 07/22/2024 Telephone [place] [address] [address] [facility] [address] [place] [address] Soledad Lucas MD Medication 07/08/2024 Telephone [facility] [address] [place] [address] Soledad Lucas MD Medication 06/21/2024 Telephone [facility] [address] [facility], [address] [place] [address] Ramsey Oakley MD Results 06/18/2024 10:32 AM TELECOMMUNICATIONS SALES REPRESENTATIVE - 06/18/2024 11:59 PM TELECOMMUNICATIONS SALES REPRESENTATIVE Hospital Encounter [facility] [place] [address] Ramsey Oakley MD Discharge Disposition: Home or Self Care (Routine Discharge) 06/18/2024 10:00 AM TELECOMMUNICATIONS SALES REPRESENTATIVE Office Visit [facility] [address] [facility], [address] [place] [phone] Ramsey Oakley MD Asthma 06/18/2024 Travel 05/08/2024 Therapy Plan [facility] [address] [address] Daniela Whyte, PT from Last 3 Months Immunizations Name Administration Dates Next Due PFIZER COVID-19 (ORIGINAL FO RMULATION, PURPLE CAP) mRNA, LNP-S, PF, 30 MCG/0.3 ML DOSE 11/15/2020,10/24/2020 Pneumococcal (Pneumovax 23) 11/01/2021 Pneumococcal (Prevnar 13) 08/16/2023 Tdap (Adacel) 10/13/2021 Family History Medical History Relation Comments Cancer Brother Prostate Cancer Father Cancer Mother Cancer Sister Diabetes Sister Relation Status Comments Brother Father Mother Sister Social History Tobacco Use Types Packs/Day Years Used Date Smoking Tobacco: Never Passive Smoke Exposure: Never Smokeless Tobacco: Never Tobacco Cessation:Counseling Given: Yes Comments:counsled by Dr Lucas Alcohol Use Standard Drinks/Week Comments Yes 11.7 (1 standard drink = 0.6 oz pure alcohol) Socially PHQ-2 Answer Date Recorded PHQ-2 Score - If the patient scores above 3, please move on to questions 3-9 1 09/29/2021 Sex and Gender Information Value Date Recorded Sex Assigned at Not on file Legal Sex Male 8:04 PM CDT Gender Identity Not on file Sexual Orientation Not on file Last Filed Vital Signs Vital Sign Reading Time Taken Comments Blood Pressure 151/87 06/18/2024 10:16 AM TELECOMMUNICATIONS SALES REPRESENTATIVE Pulse 70 06/18/2024 9:53 AM TELECOMMUNICATIONS SALES REPRESENTATIVE Temperature 36.2 ??C (97.1 ??F) 06/18/2024 9:53 AM CS T Respiratory Rate 18 06/18/2024 9:53 AM TELECOMMUNICATIONS SALES REPRESENTATIVE Oxygen Saturation 99% 06/18/2024 9:53 AM TELECOMMUNICATIONS SALES REPRESENTATIVE RA Inhaled Oxygen Concentration - - Weight 109.3 kg (241 lb) 06/18/2024 9:53 AM TELECOMMUNICATIONS SALES REPRESENTATIVE Height 185.4 cm (6' 1 ) 06/18/2024 9:53 AM TELECOMMUNICATIONS SALES REPRESENTATIVE Body Mass Index 31.8 06/18/2024 9:53 AM TELECOMMUNICATIONS SALES REPRESENTATIVE Plan of Treatment Upcoming Encounters Date Type Department Care Team (Late st Contact Info) Description 08/19/2024 9:00 AM TELECOMMUNICATIONS SALES REPRESENTATIVE [facility] [place] [address] [address] [place] [address] Soledad Lucas MD [address] [place] [address] 12/16/2024 10:40 AM CDT Office Visit [facility] Medical [facility] Multispecialty [facility] [address] [facility] [place] [phone] Ramsey Oakley MD 3 [facility] [address] [place] [address] Health Maintenance Due Date Last Done Comments Zoster Vaccines (1 of 2) 08/14/2009 RSV Immunization or 60+ Years (1 - Risk 60-74 years 1-dose series) 08/14/2019 COVID-19 Vaccine (3 - 2023-2 5 season) 2024 11/15/2020, 10/24/2020 Influenza Adult (#1) 2024 Annual Physical 08/16/2024 08/16/2023, 09/29/2021 Pneumococcal Vaccine: Pediatrics (0 to 5 Years) and At-Risk Patients (6 to 64 Years) (3 of 3 - PPSV23 or PCV20) 11/01/2026 08/16/2023, 11/01/2021 Colorectal Cancer Screening Colonoscopy (10 Years) 07/20/2031 07/20/2021 DTaP, Tdap and Td Vaccines ( 2 - Td or Tdap) 10/14/2031 10/13/2021 Hepatitis C Completed 09/29/2021 Meningococcal Vaccine Aged Out No victorina owen eligible based on patient's age to complete this topic RSV Immunizations Under 20 Months Aged Out No longer eligible b ased on patient's age to complete this topic Procedures Procedure Name Priority Date/Time Associated Diagnosis Comments ALLERGENS UPPER RESP Routine 06/18/2024 10:35 AM TELECOMMUNICATIONS SALES REPRESENTATIVE Moderate persistent asthma without complication (HHS/HCC) HEPATITIS C ANTIBODY Routine 09/29/2021 10:05 AM TELECOMMUNICATIONS SALES REPRESENTATIVE Annual physical exam Encounter for medical examination to establish care General medical exam Encounter for hepatitis C screening test for low risk patient COLONOSCOPY GENERIC (SCAN ORDER) 07/20/2021 from Last 3 Months or Most Recently Relevant to Health Maintenance Results * (ABNORMAL) ALLERGENS UPPER RESP (06/18/2024 10:35 AM TELECOMMUNICATIONS SALES REPRESENTATIVE) IGE 262.0(H) 0 - 100 kU/L 06/20/2024 1:29 PM TELECOMMUNICATIONS SALES REPRESENTATIVE [facility] ALLERGEN D PTERONYSSINUS <0.35 <0.35 kU/L 06/20/2024 1:29 PM TELECOMMUNICATIONS SALES REPRESENTATIVE [facility] Comment:<0.35 IS CLASS 0 (NE GATIVE) ALLERGEN HOUSE DUST MITE <0.35 <0.35 kU/L 06/20/2024 1:29 PM [facility] Comment:<0.35 IS CLASS 0 (NE GATIVE) ALLERGEN CAT DANDER <0.35 <0.35 kU/L 06/20/2024 1:29 PM [facility] Comment:<0.35 IS CLASS 0 (NE GATIVE) ALLERGEN DOG DANDER <0.35 <0.35 kU/L 06/20/2024 1:29 PM [facility] Comment:<0.35 IS CLASS 0 (NE GATIVE) ALLERGEN BERMUDA GRASS <0.35 <0.35 kU/L 06/20/2024 1:29 PM [facility] Comment:<0.35 IS CLASS 0 (NE GATIVE) ALLERGEN LATOYA GRASS 2.73(H) <0.35 kU/L 06/20/2024 1:29 PM [facility] Comment:0.71 - 3.50 IS CLASS 2 (POSITIVE) ALLERGEN COCKROACH <0.35 <0.35 kU/L 06/20/2024 1:29 PM [facility] Comment:<0.35 IS CLASS 0 (NE GATIVE) ALLERGEN PENICILLIUM NOTATUM <0.35 <0.35 kU/L 06/20/2024 1:29 PM [facility] Comment:<0.35 IS CLASS 0 (NE GATIVE) ALLERGEN CLADOSPORIUM HERBARUM 2.60(H) <0.35 kU/L 06/20/2024 1:29 PM [facility] Comment:0.71 - 3.50 IS CLASS 2 (POSITIVE) ALLERGEN ASPERGILLUS FUMIGATUS 4.60(H) <0.35 kU/L 06/20/2024 1:29 PM [facility] Comment:3.51 - 17.5 IS CLASS 3 (POSITIVE) ALLERGEN ALTERNARIA ALTERNATA 3.75(H) <0.35 kU/L 06/20/2024 1:29 PM [facility] Comment:3.51 - 17.5 IS CLASS 3 (POSITIVE) ALLERGEN BOX ELDER <0.35 <0.35 kU/L 06/21/2024 11:32 AM [facility] Comment:<0.35 IS CLASS 0 (NE GATIVE) ALLERGEN WALNUT TREE <0.35 <0.35 kU/L 06/20/2024 1:29 PM [facility] Comment:<0.35 IS CLASS 0 (NE GATIVE) ALLERGEN MAPLE LEAF SYCAMORE <0.35 <0.35 kU/L 06/20/2024 1:29 PM [facility] Comment:<0.35 IS CLASS 0 (NE GATIVE) ALLERGEN COTTONWOOD TREE <0.35 <0.35 kU/L 06/21/2024 11:32 AM [facility] Comment:<0.35 IS CLASS 0 (NE GATIVE) ALLERGEN WHITE MAGGY TREE <0.35 <0.35 kU/L 06/21/2024 11:32 AM [facility] Comment:<0.35 IS CLASS 0 (NE GATIVE) ALLERGEN PECAN HICKORY <0.35 <0.35 kU/L 06/21/2024 11:32 AM [facility] Comment:<0.35 IS CLASS 0 (NE GATIVE) ALLERGEN MOUNTAIN JUNIPER 0.39(H) <0.35 kU/L 06/21/2024 11:32 AM [facility] Comment:0.35 - 0.70 IS CLASS 1 (EQUIVOCAL) ALLERGEN OAK <0.35 <0.35 kU/L 06/21/2024 11:32 AM [facility] Comment:<0.35 IS CLASS 0 (NE GATIVE) ALLERGEN WHITE MULBERRY TREE <0.35 <0.35 kU/L 06/21/2024 11:32 AM [facility] Comment:<0.35 IS CLASS 0 (NE GATIVE) ALLERGEN ELM <0.35 <0.35 kU/L 06/21/2024 11:32 AM [facility] Comment:<0.35 IS CLASS 0 (NE GATIVE) ALLERGEN COMMON RAGWEED 4.05(H) <0.35 kU/L 06/21/2024 11:32 AM TELECOMMUNICATIONS SALES REPRESENTATIVE [facility] Comment:3.51 - 17.5 IS CLASS 3 (POSITIVE) ALLERGEN SALTWORT <0.35 <0.35 kU/L 06/21/2024 11:32 AM TELECOMMUNICATIONS SALES REPRESENTATIVE [facility] Comment:<0.35 IS CLASS 0 (NE GATIVE) ALLERGEN PIGWEED <0.35 <0.35 kU/L 06/21/2024 11:32 AM TELECOMMUNICATIONS SALES REPRESENTATIVE [facility] Comment:<0.35 IS CLASS 0 (NE GATIVE) ALLERGEN ROUGH MARSHELDER 0.63(H) <0.35 kU/L 06/21/2024 11:32 AM [facility] Comment:0.35 - 0.70 IS CLASS 1 (EQUIVOCAL) ALLERGEN MOUSE URINE PROTEIN <0.35 <0.35 kU/L 06/20/2024 1:29 PM TELECOMMUNICATIONS SALES REPRESENTATIVE [facility] Comment:<0.35 IS CLASS 0 (NE GATIVE) 06/18/2024 10:3 5 AM TELECOMMUNICATIONS SALES REPRESENTATIVE Ramsey Oakley MD LABORATORY Final Result Performing Organization Address [facility] Co de Phone Number [facility] [address] [place] [address], [phone] * HEPATITIS C ANTIBODY (09/29/2021 10:05 AM TELECOMMUNICATIONS SALES REPRESENTATIVE) HEPATITIS C AB NON-REACTI VE NON-REACT DESIREE 09/29/2021 6:57 PM TELECOMMUNICATIONS SALES REPRESENTATIVE [facility] Comment: ANTIBODIES TO HCV NOT DETECTED. DOES NOT EXCLUDE THE POSSIBILITY OF EXPOSURE TO HCV. 09/29/2021 10:0 5 AM TELECOMMUNICATIONS SALES REPRESENTATIVE Soledad Lucas MD LABORATORY Final Result Performing Organization Address [facility] Co de Phone Number [facility] [address] [place] [phone], [phone] * COLONOSCOPY GENERIC (07/20/2021) 07/20/2021 Narrative 07/20/2021 Ordered by an unspecified provider. us Documents Scanned SCANNING Final Result from Last 3 Months or Most Recently Relevant to Health Maintenance Insurance Care Teams Sports Photographer Relationship Specialty Start Date End Date Soledad Lucas MD [address] [facility] [address] [place] [address] PCP - General INTERNAL MEDICINE 09/29/21
--- OUTSIDE RECORDS SUMMARY | 2024-08-03 03:22 | XMS_ITS | Encounter Summary ---
Author Organization [facility] Address [address] [place] [address]. [address] [address] Care Team Providers Care Security Software Engineer Name Role Phone Soledad Lucas MD Primary Care Provider [phone] Encounter Details Date Type Department Care Team (Late st Contact Info) Description 07/24/2024 [facility] - [address] [id number] Soledad Lucas MD [address] [place] [address] Social History Tobacco Use Types Packs/Day Years Used Date Smoking Tobacco: Never Passive Smoke Exposure: Never Smokeless Tobacco: Never Comments:counsled by Dr Alcala e Alcohol Use Standard Drinks/Week Comments Yes 11.7 [...] on file Sexual Orientation Not on file documented as of this encounter Plan of Treatment Upcoming Encounters Date Type Department Care Team (Late st Contact Info) Description 08/19/2024 9:00 AM SPOOL CLEANER HAND Office Visit [facility] Multispecialty [facility] [place] - [address] [place] [address] Soledad Lucas MD [address] [facility] [address] [place] [address] 12/16/2024 10:40 AM CDT Office Visit [facility] Multispecialty Care - [facility] [address] [facility] [place] [address] Ramsey Oakley MD [facility] [address] [place] [address] documented as of this encounter Visit Diagnoses Diagnosis Primary hypertension Unspecified essential hypertension documented in this encounter Additional Health Concerns Assessment Noted Time PHQ-9 Depression Total Score: 1 09/29/19 10:03 AM SPOOL CLEANER HAND documented as of this encounter Care Teams Security Software Engineer Relationship Specialty Start Date End Date Soledad Lucas MD [address] [address] PCP - General INTERNAL MEDICINE 09/29/21 documented as of this encounter
--- OUTSIDE RECORDS SUMMARY | 2024-08-03 03:23 | XMS_ITS | Encounter Summary ---
Author Organization [facility] Address [address] [place] [address]. [place] [address] Care Team Providers Care Grader Operator Name Role Phone Soledad Lucas MD Primary Care Provider Reason for Visit * Reason Onset Date Comments Question 02/20/2024 Encounter Details Date Type Department Care Team (Late st Contact Info) Description 02/20/2024 Telephone [facility] Medical Group Multispecialty Care - [place] [address] [address] [place] [address] Soledad Lucas MD [address] [place] [address] [place] [address] Question Social History Tobacco Use Types Packs/Day Years [...] on file documented as of this encounter Progress Notes * Koko Brand - 02/20/2024 9:05 AM CDT Patient called requesting to talk to Dr. Lucas. I informed patient that she is currently with patients in clinic and that I would send her a message. Patient v/u and said thank you. documented in this encounter Plan of Treatment Upcoming Encounters Date Type Department Care Team (Late st Contact Info) Description 08/19/2024 9:00 AM PRINTING SALES REPRESENTATIVE [facility] [place] [address] [address] [place] [address] Soledad Lucas MD [address] [address] 12/16/2024 10:40 AM CDT Office Visit [facility] [address] [facility] [place] [address] Ramsey Oakley MD [address] [facility] [address] [place] [address] documented as of this encounter Visit Diagnoses Not on filedocumented in this encounter Additional Health Concerns Assessment Noted Time PHQ-9 Depression Total Score: 1 09/29/19 22 10:03 AM PRINTING SALES REPRESENTATIVE documented as of this encounter Care Teams Grader Operator Relationship Specialty Start Date End Date Soledad Lucas MD [address] [place] [address] PCP - General INTERNAL MEDICINE 09/29/21 documented as of this encounter
--- OUTSIDE RECORDS SUMMARY | 2024-08-03 03:23 | XMS_ITS | Encounter Summary ---
Author Organization [facility] Address [address] [place] [address]. [place], [place] [phone] [place] [address] Care Team Providers Care Multimedia Services Coordinator Name Role Phone Soledad Lucas MD Primary Care Provider [phone] Reason for Visit * Reason Comments Lab (SCAN) CT (SCAN) Encounter Details Date Type Department Care Team (Late Contact Info) Description 02/23/2024 Scan HEALTH INFO SRVCS Scanned, Doc Med Group Lab (SCAN); CT (SCAN) Social History Tobacco Use Types Packs/Day Years [...] Encounters Date Type Department Care Team (Late Contact Info) Description 08/19/2024 9:00 AM LOFT PATTERNMAKER Office Visit [facility] Medical Group Multispecialty Care - [place] [address] [address] [place] [address] Soledad Lucas MD [address] [place] [address] 12/16/2024 10:40 AM CDT Office Visit [facility] Medical Group Multispecialty Care - [facility] [address] [facility] [address] [place] [address] Ramsey Oakley MD [address] [facility] [address] [place] [address] documented as of this encounter Procedures Procedure Name Priority Date/Time Associated Diagnosis Comments CT GENERIC 02/23/2024 OUTSIDE LAB (SCAN ORDER) 02/23/2024 documented in this encounter Results * OUTSIDE LAB (SCAN ORDER) (02/23/2024) 02/23/2024 [facility] Scanned SCANNING Final Resu lt * CT GENERIC (02/23/2024) Anatomical Region Laterality Modality Other 02/23/2024 [facility] Scanned SCANNING Final Resu lt documented in this encounter Visit Diagnoses Not on filedocumented in this encounter Additional Health Concerns Assessment Noted Time PHQ-9 Depression Total Score: 1 09/29/19 22 10:03 AM LOFT PATTERNMAKER documented as of this encounter Care Teams Multimedia Services Coordinator Relationship Specialty Start Date End Date Soledad Lucas MD [address] [facility] [address] [place] [address] PCP - General INTERNAL MEDICINE 09/29/21 documented as of this encounter
--- OUTSIDE RECORDS SUMMARY | 2024-08-03 03:23 | XMS_ITS | Encounter Summary ---
Author Organization [facility] Address [address] [place] [address]. [place] [address] [place] [address] Care Team Providers Care Ore Storage Drier Name Role Phone Soledad Lucas MD Primary Care Provider [phone] Reason for Visit * Reason Onset Date Comments Appointment Request 01/24/2024 Encounter Details Date Type Department Care Team (Late st Contact Info) Description 01/24/2024 Telephone [facility] Medical Group [facility] - [place] [address] [place], [place] [phone] Robby Loja MD [address] [place] [address] Appointment Request Social History Tobacco Use Types Packs/Day Years Used Date Smoking Tobacco: Never Passive Smoke Exposure: Never Smokeless Tobacco: Never Comments:counsled by Dr Cari gomez Alcohol Use Standard Drinks/Week Comments Yes 11.7 [...] as of this encounter Progress Notes * Latanya Hodge RN - 01/31/2024 1:01 PM CDT 3rd call voicemail box full. * Latanya Hodge RN - 01/26/2024 9:55 AM CDT 2nd call voicemail box full. * Latanya Hodge RN - 01/24/2024 11:25 AM CDT Called pt and from referral no answer and voicemail is full. When pt calls back we will schedule with elmer . documented in this encounter Plan of Treatment Upcoming Encounters Date Type Department Care Team (Late st Contact Info) Description 08/19/2024 9:00 AM SUPERVISOR REMELT Office Visit [facility] Multispecialty Care - [place] [address] [address] [place] [address] Soledad Lucas MD [address] [place] [address] 12/16/2024 10:40 AM CDT [facility] [address] [facility] [place] [phone] Ramsey Oakley MD 3 [facility] [address] [place] [address] documented as of this encounter Visit Diagnoses Not on filedocumented in this encounter Additional Health Concerns Assessment Noted Time PHQ-9 Depression Total Score: 1 09/29/19 22 10:03 AM SUPERVISOR REMELT documented as of this encounter Care Teams Ore Storage Drier Relationship Specialty Start Date End Date Soledad Lucas MD [address] [place] [address] PCP - General INTERNAL MEDICINE 09/29/21 documented as of this encounter
--- OUTSIDE RECORDS SUMMARY | 2024-08-03 03:23 | XMS_ITS | Encounter Summary ---
Author Organization [facility] Address [address] [place] [address]. [place], [place] [address] [place] [address] Care Team Providers Care Optical Designer Name Role Phone Soledad Lucas MD Primary Care Provider [phone] Encounter Details Date Type Department Care Team (Latest Contact Info) Description 10/02/2023 Travel Social History Tobacco Use Types Packs/Day Years [...] st Contact Info) Description 08/19/2024 9:00 AM PROGRAM ARRANGER Office Visit [facility] Medical [facility] - [address] [address] [address] [address] [place] [address] Soledad Lucas MD [address] [place] [address] 157 [place] [address] 12/16/2024 10:40 AM CDT Office Visit [facility] Medical [facility] [address] [place] [address] Ramsey Oakley MD [facility] [address] [place] [address] documented as of this encounter Visit Diagnoses Not on filedocumented in this encounter Additional Health Concerns Assessment Noted Time PHQ-9 Depression Total Score: 1 09/29/19 22 10:03 AM PROGRAM ARRANGER documented as of this encounter Care Teams Optical Designer Relationship Specialty Start Date End Date Soledad Lucas MD [address] [address] PCP - General INTERNAL MEDICINE 09/29/21 documented as of this encounter
--- OUTSIDE RECORDS SUMMARY | 2024-08-03 03:23 | XMS_ITS | Encounter Summary ---
Author Organization [facility] - [facility] Address [address] [place] [address]. [address] [address] Care Team Providers Care Access Registrar Name Role Phone Soledad Lucas MD Primary Care Provider [phone] Reason for Visit * Reason Onset Date Comments Medication 03/19/2024 Encounter Details Date Type Department Care Team (Late st Contact Info) Description 03/19/2024 Telephone [facility] Medical [facility]ty Care - [place] [address] [address] [address] [place] [address] Soledad Lucas MD [address] [place] [address] 157 [place], [place] [id number] Medication Social History Tobacco Use Types Packs/Day Years [...] as of this encounter Progress Notes * Geri Hartley MA - 03/19/2024 1:10 PM CDT Patient informed of the message * Jatin R Cortez - 03/19/2024 9:40 AM CDT Pt is getting a MRI , and he is klosteptophobic he would to take something to relax berforeMRI Pls send to [facility] in [place], also he stated that he can't afford the Gabapentin 400 mg, pls call and discuss. documented in this encounter Plan of Treatment Upcoming Encounters Date Type Department Care Team (Late st Contact Info) Description 08/19/2024 9:00 AM INSURANCE LOSS ASSESSOR [facility] [place] [address] [address] [address] [place] [address] Soledad Lucas MD [address] [place] [address] 12/16/2024 10:40 AM CDT Office [facility] [address] [facility], [address] [place] [address] Ramsey Oakley MD 3 [facility] [address] [place] [address] documented as of this encounter Visit Diagnoses Diagnosis Anxiety- Primary Anxiety state, unspecified documented in this encounter Additional Health Concerns Assessment Noted Time PHQ-9 Depression Total Score: 1 09/29/19 22 10:03 AM INSURANCE LOSS ASSESSOR documented as of this encounter Care Teams Access Registrar Relationship Specialty Start Date End Date Soledad Lucas MD [address] [place] [address] PCP - General INTERNAL MEDICINE 09/29/21 documented as of this encounter
--- OUTSIDE RECORDS SUMMARY | 2024-08-03 03:23 | XMS_ITS | Encounter Summary ---
Author Organization [facility] Address [address] [place] [address]. [place], [place] [address] [place] [address] Care Team Providers Care Corrosion Technician Name Role Phone Soledad Lucas MD Primary Care Provider [phone] Encounter Details Date Type Department Care Team (Latest Contact Info) Description 03/13/2024 Travel Social History Tobacco Use Types Packs/Day [...] st Contact Info) Description 08/19/2024 9:00 AM CONTINUING EDUCATION DIRECTOR Office Visit [facility] Medical [facility] Care - [place] [address] [address] [address] [place] [address] Soledad Lucas MD [address] [place] [address] 157 [place] [address] 12/16/2024 10:40 AM CDT Office Visit [facility] Medical [facility]ty [address] [place] [address] Ramsey Oakley MD [facility] [address] [place] [address] documented as of this encounter Visit Diagnoses Not on filedocumented in this encounter Additional Health Concerns Assessment Noted Time PHQ-9 Depression Total Score: 1 09/29/19 22 10:03 AM CONTINUING EDUCATION DIRECTOR documented as of this encounter Care Teams Corrosion Technician Relationship Specialty Start Date End Date Soledad Lucas MD [address] [address] PCP - General INTERNAL MEDICINE 09/29/21 documented as of this encounter
--- OUTSIDE RECORDS SUMMARY | 2024-08-03 03:23 | XMS_ITS | Encounter Summary ---
Author Organization [facility] Address [address] [place] [address]. [address] [address] Care Team Providers Care Word Processing Specialist Name Role Phone Soledad Lucas MD Primary Care Provider [phone] Reason for Visit * Reason Comments Arm Pain Pt had a vaccine in right arm now having shooting pain going to his fingers Encounter Details Date Type Department Care Team (Latest Contact Info) Description 08/25/2023 11:40 AM QUALITY CONTROL MICROBIOLOGY SUPERVISOR Office Visit [facility] Medical [facility] Care - [place] [address] [address] [place] [address] Soledad Lucas MD [address] [place] [address] [address] [place] [address] Arm Pain (Pt had a vaccine in right arm now having shooting pain going to his fingers) Social History Tobacco Use Types Packs/Day Years [...] on file documented as of this encounter Last Filed Vital Signs Vital Sign Reading Time Taken Comments Blood Pressure 125/65 08/25/2023 12:43 PM QUALITY CONTROL MICROBIOLOGY SUPERVISOR Pulse 72 08/25/2023 12:43 PM QUALITY CONTROL MICROBIOLOGY SUPERVISOR Temperature 37 ??C (98.6 ??F) 08/25/2023 12: 43 PM QUALITY CONTROL MICROBIOLOGY SUPERVISOR Respiratory Rate 18 08/25/2023 12:4 3 PM QUALITY CONTROL MICROBIOLOGY SUPERVISOR Oxygen Saturation 99% 08/25/2023 12: 43 PM QUALITY CONTROL MICROBIOLOGY SUPERVISOR Inhaled Oxygen Concentration - - Weight 101.3 kg (223 lb 6.4 oz) 024 12:43 PM QUALITY CONTROL MICROBIOLOGY SUPERVISOR Height 185.4 cm (6' 1 ) 08/25/2023 12:4 3 PM QUALITY CONTROL MICROBIOLOGY SUPERVISOR Body Mass Index 29.47 08/25/2023 12:43 PM QUALITY CONTROL MICROBIOLOGY SUPERVISOR documented in this encounter Patient Instructions * Patient Instructions* Stewart Wlison NP Student - 08/25/2023 11:40 AM QUALITY CONTROL MICROBIOLOGY SUPERVISOR Please attend x ray outpatient and follow up in office for results ITY CONTROL MICROBIOLOGY SUPERVISOR * Attachments The following attachments cannot be sent through Care Everywhere. * Osteoarthritis ([place] Islander) documented in this encounter Progress Notes * Stewart Wilson NP Student - 08/25/2023 11:40 AM CSTSummary: acute visit note Images from the original note were not included. Internal Medicine Outpatient Progress Note CC: Arm Pain (Pt had a vaccine in right arm now having shooting pain going to his fingers) HPI: Juliet Stout is a 62-year-old male who presents for Patient presents to office visit with complaints of right shoulder and elbow pain that travels downto his 4th and 5th metatarsal. Patient describes the pain as an intermittent soreness associated with numbness of the 4th and 5th metatarsal. He rates the pain a 6/10 that increases to 10 at random intervals. Patient denies taking anything for the pain in the shoulder and reports he can no longer sleep on his right side due to the pain. Patient denies and chest pain, fever, chills, and SOB at this time. 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 Family History Problem Relation Name Age of Onset Cancer Mother Prostate Cancer Father Cancer Sister Diabetes Sister Cancer Brother Social History Tobacco Use Smoking status: Never Passive exposure: Never Smokeless tobacco: Never Tobacco comments: counsled by Dr Lucas Vaping Use Vaping Use: Never used Substance Use Topics Alcohol use: Yes Alcohol/week: 11.7 standard drinks of alcohol Types: 7 Cans of beer per week Comment: Socially Drug use: Yes Types: Marijuana Medications: Outpatient Medications Marked as Taking for the 08/25/23 encounter (Office Visit) with Soledad Lucas MD Medication Sig Dispense Refill albuterol sulfate HFA 108 (90 Base) MCG/ACT inhaler Inhale 2 puffs into the lungs every 6 (six) hours as needed for Wheezing. 18 g 5 atorvastatin (LIPITOR) 40 MG tablet Take 1 tablet (40 mg total) by mouth nightly at bedtime. 90 tablet 1 celecoxib (CELEBREX) 100 MG capsule Take 1 capsule (100 mg total) by mouth 2 (two) times daily. Indications: pt not sure if this is right mg fluticasone furoate-vilanterol (BREO ELLIPTA) 200-25 MCG/ACT inhaler Inhale 1 puff into the lungs daily. 60 each 6 gabapentin (NEURONTIN) 400 MG capsule Take 1 capsule (400 mg total) by mouth 3 (three) times daily.Indications: pt not sure of mg ipratropium-albuterol (DUONEB) 0.5-2.5 (3) MG/3ML Solution Take 3 mLs by nebulization every 6 (six)hours as needed. 360 mL 11 losartan (COZAAR) 25 MG tablet Take 1 tablet (25 mg total) by mouth daily. 90 tablet 1 [START ON 08/26/2023] methylPREDNISolone, ABBE, (MEDROL DOSEPAK) 4 MG tablet 6 TABLETS ON DAY ONE, 5 TABLETS DAY TWO, 4 TABLETS DAY THREE, 3 TABLETS DAY FOUR, 2 TABLETS DAY FIVE, AND 1 TABLET DAY SIX 1each 0 NEBULIZER DEVICE, DME, Take 1 Device by nebulization every 6 (six) hours as needed. Use for asthma attack. 1 Device 0 oxyCODONE-acetaminophen (PERCOCET) 7.5-325 MG tablet Take 1 tablet by mouth daily as needed for Pain. Indications: Chronic Pain 30 tablet 0 vitamin D2, ergocalciferol, (DRISDOL) 1.25 mg capsule Take 1 capsule (50,000 Units total) by mouth every 7 days. 12 capsule 3 Allergies: Review of patient's allergies indicates: Allergen Reactions Lisinopril Swelling Swollen lips Review of Systems Constitutional: Negative. HENT: Negative. Eyes: Negative. Respiratory: Negative. Cardiovascular: Negative. Gastrointestinal: Negative. Genitourinary: Negative. Musculoskeletal: Positive for joint pain. Negative for back pain, falls, myalgias and neck pain. Skin: Negative. Neurological: Positive for tingling. Negative for sensory change, focal weakness and weakness. Endo/Heme/Allergies: Negative. Objective: Filed Vitals: 08/25/23 1243 BP: 125/65 Pulse: 72 Resp: 18 Temp: 98.6 ??F (37 ??C) TempSrc: Temporal SpO2: 99% Weight: 101.3 kg (223 lb 6.4 oz) Height: 1.854 m (6' 1 ) Body mass index is 29.47 kg/m??. General alert, cooperative, no distress HEENT EOM's intact. Oral mucosa normal. Nasal septum is midline. Neck Supple, symmetrical, trachea midline, no adenopathy, no thyromegaly, no JVD. Lungs No acute respiratory distress, no accessory muscle use, symmetric motion of the chest wall, lungs are clear to auscultation bilaterally, no wheezes or rales. Heart Regular rate and regular rhythm. S1, S2 normal. No murmurs. No rubs, clicks, or gallops. Abdomen Soft, non-tender, non-distended. Bowel sounds normal. No masses. No hepatomegaly appreciated. Extremities Extremities atraumatic, no cyanosis, 2+ pedal pulses, no edema Skin Skin color, texture, turgor normal. No rashes or lesions appreciated. Neurologic No focal deficits, motor strength is grossly normal and symmetric Psych Normal mood and affect MSK No muscle atrophy, varicose veins prominent on right upper arm, welder/installer equal bilaterally, strength equal bilaterally, Right arm flexion, extension, and external rotation able to be performed with out difficulty, Right shoulder tender to palpation, right elbow tender to palpation, tingling present right medial 4th and 5th finger. Lymph No cervical or supraclavicular adenopathy Assessment and Plan: Differential dx: buritis vs muscle strain vs neuropathy vs osteoarthritis Diagnosis: osteoarthritis Counseling given: yes Counseling given by: Dr. Lucas I personally spent a total of 30 minutes on the day of the encounter. This includes [id number] and dnj-jmmj-jo-face time I provided on the day of the encounter & excludes time spent performing separately reportable services. Side effects and less common but more severe adverse effects of recommended medical therapies were explained to the patient. Follow up office visit in 1 months. Requested MyChart or telephone follow up prn if symptoms change, worsen, or persist, or if side effect of treatment is experienced. ISoledad MD have reviewed the notes ie the history, examination, assessment and plan of Student Nurse Practitioner Stewart Wilson and agree with the major elements of notes, unless otherwise addended or documented. Soledad Lucas MD Internal Medicine [facility]. DRAGON: This dictation was at least in part performed using iAgree and there may be some inherent flaws in this instructional design technologist due to the nature of this program. Soledad Lucas MD Internal Medicine [facility], [facility]. ITY CONTROL MICROBIOLOGY SUPERVISOR ITY CONTROL MICROBIOLOGY SUPERVISOR ITY CONTROL MICROBIOLOGY SUPERVISOR ITY CONTROL MICROBIOLOGY SUPERVISOR documented in this encounter Plan of Treatment Upcoming Encounters Date Type Department Care Team (Late st Contact Info) Description 08/19/2024 9:00 AM QUALITY CONTROL MICROBIOLOGY SUPERVISOR Office Visit [facility] Care - [place] [address] [address] [place] [address] Soledad Lucas MD [address] [place] [address] 12/16/2024 10:40 AM CDT Office Visit [facility] [address] [facility] [address] [place] [address] Ramsey Oakley MD 3 [facility] [address] [place] [address] documented as of this encounter Results * XR ELBOW RT M3V (08/29/2023 1:51 PM QUALITY CONTROL MICROBIOLOGY SUPERVISOR) Anatomical Region Laterality Modality Elbow Radiographic Liv ging 08/29/2023 1:59 PM QUALITY CONTROL MICROBIOLOGY SUPERVISOR Impressions 08/29/2023 2:00 PM QUALITY CONTROL MICROBIOLOGY SUPERVISOR IMPRESSION: 1. No acute osseous abnormality. 2. Prominent degenerative changes. Ordered By: SOLEDAD LUCAS Interpreted By: Jasper Gray MD, 08/29/2023 1:59 PM Narrative 08/29/2023 2:00 PM QUALITY CONTROL MICROBIOLOGY SUPERVISOR Examination: XR ELBOW RT M3V Exam time: 08/29/2023 1:38 PM Clinical history: Pain Comparison: No prior exam Technique: 3 views Findings: Relationships of the right elbow appear unremarkable. There are prominent arthritic changes. There is prominent hypertrophic spurring from the anterior distal humerus and the coronoid process of the ulna. Prominent hypertrophic spurring radial head and neck junction. Chronic appearing ossific densities project lateral to the right elbow joint on the AP view. No radiographic evidence of joint effusion. No evidence of fracture or acute osseous abnormality. Procedure Note Jasper Gray MD - 08/29/2023 Examination: XR ELBOW RT M3V Exam time: 08/29/2023 1:38 PM Clinical history: Pain Comparison: No prior exam Technique: 3 views Findings: Relationships of the right elbow appear unremarkable. There areprominent arthritic changes. There is prominent hypertrophic spurring fromthe anterior distal humerus and the coronoid process of the ulna.Prominent hypertrophic spurring radial head and neck junction. Chronicappearing ossific densities project lateral to the right elbow joint onthe AP view. No radiographic evidence of joint effusion. No evidence offracture or acute osseous abnormality. IMPRESSION: 1. No acute osseous abnormality. 2. Prominent degenerative changes. Ordered By: SOLEDAD LUCAS Interpreted By: Jasper Gray MD, 08/29/2023 1:59 PM Soledad Lucas MD GENERAL IMAGING Final Result * XR SHOULDER RT 3V (08/29/2023 1:51 PM QUALITY CONTROL MICROBIOLOGY SUPERVISOR) Anatomical Region Laterality Modality Shoulder Radiographic Liv ging 08/29/2023 1:58 PM QUALITY CONTROL MICROBIOLOGY SUPERVISOR Impressions 08/29/2023 1:59 PM QUALITY CONTROL MICROBIOLOGY SUPERVISOR IMPRESSION: No acute abnormality. Ordered By: SOLEDAD LUCAS Interpreted By: Jasper Gray MD, 08/29/2023 1:58 PM Narrative 08/29/2023 1:59 PM QUALITY CONTROL MICROBIOLOGY SUPERVISOR Examination: XR SHOULDER RT 3V Exam time: 08/29/2023 1:38 PM Clinical history: Pain Comparison: No prior exam Technique: 3 views Findings: Glenohumeral and acromioclavicular joint relationships appear unremarkable. Minimal acromioclavicular and glenohumeral joint arthritic change. No evidence of fracture or acute osseous abnormality. No evidence of abnormal soft tissue densities. Procedure Note Jasper Gray MD - 08/29/2023 Examination: XR SHOULDER RT 3V Exam time: 08/29/2023 1:38 PM Clinical history: Pain Comparison: No prior exam Technique: 3 views Findings: Glenohumeral and acromioclavicular joint relationships appearunremarkable. Minimal acromioclavicular and glenohumeral joint arthriticchange. No evidence of fracture or acute osseous abnormality. No evidenceof abnormal soft tissue densities. IMPRESSION: No acute abnormality. Ordered By: SOLEDAD LUCAS Interpreted By: Jasper Gray MD, 08/29/2023 1:58 PM Soledad Lucas MD GENERAL IMAGING Final Result documented in this encounter Visit Diagnoses Diagnosis Primary osteoarthritis of right shoulder- Primary Primary localized osteoarthrosis, shoulder region Neuropathy Mononeuritis of unspecified site documented in this encounter Administered Medications Inactive Administered Medications - up to 3 most recent administrations Medication Order MAR Action Action Date Dose Rate Site methylPREDNISolone acetate (DEPO-Medrol) injection 40 mg 40 mg, Intramuscular, Once, 1 dose, On Mon08/25/23 at 1400, Shake WellIndications:Primary osteoarthritis of right shoulder,Neuropathy Given 08/25/2023 1:49 PM QUALITY CONTROL MICROBIOLOGY SUPERVISOR 40 mg Right Deltoid documented in this encounter Additional Health Concerns Assessment Noted Time PHQ-9 Depression Total Score: 1 09/29/19 10:03 AM QUALITY CONTROL MICROBIOLOGY SUPERVISOR documented as of this encounter Care Teams Word Processing Specialist Relationship Specialty Start Date End Date Soledad Lucas MD [address] [address] PCP - General INTERNAL MEDICINE 09/29/21 documented as of this encounter
--- OUTSIDE RECORDS SUMMARY | 2024-08-03 03:23 | XMS_ITS | Encounter Summary ---
Author Organization [facility] Address [address] [place] [address]. [address] [address] Care Team Providers Care Grade School Teacher Name Role Phone Soledad Lucas MD Primary Care Provider [phone] Reason for Visit * Reason Onset Date Comments Medication 07/24/2024 Encounter Details Date Type Department Care Team (Late st Contact Info) Description 07/24/2024 Telephone [facility] Care - [place] [address] [address] [place] [address] Soledad Lucas MD [address] [place] [address] [address] [place] [address] Medication Social History Tobacco Use Types Packs/Day [...] as of this encounter Progress Notes * Libra Goldberg - 07/24/2024 12:42 PM CST Name of Medication: losartan (COZAAR) Strength/Dosage: 25 MG tablet Directions: Take 1 tablet (25 mg total) by mouth daily. Quantity: 90 days Send to: [facility] in [place], [place] ANISM ASSEMBLER documented in this encounter Plan of Treatment Upcoming Encounters Date Type Department Care Team (Late st Contact Info) Description 08/19/2024 9:00 AM MECHANISM ASSEMBLER [facility] - [place] [address] [address] [place] [address] Soledad Lucas MD [address] [place] [address] 12/16/2024 10:40 AM CDT [facility] [address] [facility] [address] [place] [address] Ramsey Oakley MD 3 [facility] [address] [place] [address] documented as of this encounter Visit Diagnoses Not on filedocumented in this encounter Additional Health Concerns Assessment Noted Time PHQ-9 Depression Total Score: 1 09/29/19 10:03 AM MECHANISM ASSEMBLER documented as of this encounter Care Teams Grade School Teacher Relationship Specialty Start Date End Date Soledad Lucas MD [address] [place] [address] PCP - General INTERNAL MEDICINE 09/29/21 documented as of this encounter
--- OUTSIDE RECORDS SUMMARY | 2024-08-03 03:23 | XMS_ITS | Encounter Summary ---
Author Organization [facility] Address [address] [place] [address]. [place], [place] [address] [place] [address] Care Team Providers Care Mink Farmer Name Role Phone Soledad Lucas MD Primary Care Provider [phone] Encounter Details Date Type Department Care Team (Latest Contact Info) Description 06/18/2024 10:32 AM HEAD TRACK COACH - 06/18/2024 11:59 PM [facility] Encounter [facility] [place] [address] Ramsey Oakley MD [address] [address] Discharge Disposition: Home or Self Care (Routine Discharge) Social History Tobacco Use Types Packs/Day Years [...] on file documented as of this encounter Medications at Time of Discharge albuterol sulfate HFA 108 (90 Base) MCG/ACT inhalerIndications: Mild intermittent asthma with acute exacerbation (HHS/HCC) Inhale 2 puffs into the lungs every 6 (six) hours as needed for Wheezing. 18 g 5 4 ALPRAZolam (XANAX) 0.25 MG tabletIndications:D rug therapy Use on the day of the MRI cervical about 15 min before MRI. 2 tablet 4 atorvastatin (LIPITOR) 40 MG tabletIndications:M ixed hyperlipidemia Take 1 tablet (40 mg total) by mouth nightly at bedtime. 90 tablet 1 4 Budeson-Glycopyrrol -Formoterol (BREZTRI AEROSPHERE) 160-9-4.8 MCG/ACT AerosolIndications: Mild intermittent asthma with acute exacerbation (HHS/HCC) Inhale 2 puffs into the lungs 2 (two) times daily. 10.7 g 5 4 celecoxib (CELEBREX) 100 MG capsuleIndications: pt not sure if this is right mg Take 1 capsule (100 mg total) by mouth 2 (two) times daily. Indications: pt not sure if this is right mg 60 capsule 2 4 gabapentin (NEURONTIN) 100 MG capsuleIndications: Right shoulder pain, unspecified chronicity,Chronic bilateral low back pain with left-sided sciatica Take 4 capsules (400 mg total) by mouth 3 (three) times daily as needed. 360 capsule 5 4 gabapentin (NEURONTIN) 400 MG capsuleIndications: pt not sure of mg Take 1 capsule (400 mg total) by mouth 3 (three) times daily. Indications: pt not sure of mg 90 capsule 1 4 ipratropium-albuter ol (DUONEB) 0.5-2.5 (3) MG/3ML SolutionIndications :Mild intermittent asthma with acute exacerbation (HHS/HCC) Take 3 mLs by nebulization every 6 (six) hours as needed. 360 mL 11 4 montelukast (SINGULAIR) 10 MG tabletIndications:M ild intermittent asthma with acute exacerbation (HHS/HCC) Take 1 tablet (10 mg total) by mouth nightly at bedtime. 90 tablet 1 4 NEBULIZER DEVICE, DME,Indications:Mod erate persistent asthma with acute exacerbation (HHS/HCC),Acute bronchitis, unspecified organism Take 1 Device by nebulization every 6 (six) hours as needed. Use for asthma attack. 1 Device 2 vitamin D2, ergocalciferol, (DRISDOL) 1.25 mg capsuleIndications: Vitamin D deficiency Take 1 capsule (50,000 Units total) by mouth every 7 days. 12 capsule 3 4 losartan (COZAAR) 25 MG tabletIndications:P rimary hypertension Take 1 tablet (25 mg total) by mouth daily. 90 tablet 1 4 07/24/20 24 oxyCODONE-acetamino phen (PERCOCET) 7.5-325 MG tabletIndications:C hronic Pain Take 1 tablet by mouth daily as needed for Pain. Indications: Chronic Pain 30 tablet 4 07/08/20 24 documented as of this encounter Plan of Treatment Upcoming Encounters Date Type Department Care Team (Late st Contact Info) Description 08/19/2024 9:00 AM HEAD TRACK COACH [facility] [address] [place] [address] Soledad Lucas MD [address] [place] [address] 157 [place] [address] 12/16/2024 10:40 AM CDT [facility] 3 [facility], [address] [place] [id number] Ramsey Oakley MD 3 [facility] [address] [place] [address] documented as of this encounter Procedures Procedure Name Priority Date/Time Associated Diagnosis Comments ALLERGENS UPPER RESP Routine 06/18/2024 10:35 AM HEAD TRACK COACH Moderate persistent asthma without complication (HHS/HCC) documented in this encounter Results * (ABNORMAL) ALLERGENS UPPER RESP (06/18/2024 10:35 AM HEAD TRACK COACH) IGE 262.0(H) 0 - 100 kU/L 06/20/2024 1:29 PM [facility] ALLERGEN D PTERONYSSINUS <0.35 <0.35 kU/L 06/20/2024 1:29 PM [facility] Comment:<0.35 IS CLASS 0 (NE GATIVE) ALLERGEN HOUSE DUST MITE <0.35 <0.35 kU/L 06/20/2024 1:29 PM [facility] Comment:<0.35 IS CLASS 0 (NE GATIVE) ALLERGEN CAT DANDER <0.35 <0.35 kU/L 06/20/2024 1:29 PM [facility] Comment:<0.35 IS CLASS 0 (NE GATIVE) ALLERGEN DOG DANDER <0.35 <0.35 kU/L 06/20/2024 1:29 PM [facility] Comment:<0.35 IS CLASS 0 (NE GATIVE) ALLERGEN BERMUDA GRASS <0.35 <0.35 kU/L 06/20/2024 1:29 PM [facility] Comment:<0.35 IS CLASS 0 (NE GATIVE) ALLERGEN LATOYA GRASS 2.73(H) <0.35 kU/L 06/20/2024 1:29 PM [facility] Comment:0.71 - 3.50 IS CLASS 2 (POSITIVE) ALLERGEN COCKROACH <0.35 <0.35 kU/L 06/20/2024 1:29 PM [facility] Comment:<0.35 IS CLASS 0 (NE GATIVE) ALLERGEN PENICILLIUM NOTATUM <0.35 <0.35 kU/L 06/20/2024 1:29 PM [facility] Comment:<0.35 IS CLASS 0 (NE GATIVE) ALLERGEN CLADOSPORIUM HERBARUM 2.60(H) <0.35 kU/L 06/20/2024 1:29 PM [facility] Comment:0.71 - 3.50 IS CLASS 2 (POSITIVE) ALLERGEN ASPERGILLUS FUMIGATUS 4.60(H) <0.35 kU/L 06/20/2024 1:29 PM [facility] Comment:3.51 - 17.5 IS CLASS 3 (POSITIVE) ALLERGEN ALTERNARIA ALTERNATA 3.75(H) <0.35 kU/L 06/20/2024 1:29 PM [facility] Comment:3.51 - 17.5 IS CLASS 3 (POSITIVE) ALLERGEN BOX ELDER <0.35 <0.35 kU/L 06/21/2024 11:32 AM [facility] Comment:<0.35 IS CLASS 0 (NE GATIVE) ALLERGEN WALNUT TREE <0.35 <0.35 kU/L 06/20/2024 1:29 PM [facility] Comment:<0.35 IS CLASS 0 (NE GATIVE) ALLERGEN MAPLE LEAF SYCAMORE <0.35 <0.35 kU/L 06/20/2024 1:29 PM [facility] Comment:<0.35 IS CLASS 0 (NE GATIVE) ALLERGEN COTTONWOOD TREE <0.35 <0.35 kU/L 06/21/2024 11:32 AM [facility] Comment:<0.35 IS CLASS 0 (NE GATIVE) ALLERGEN WHITE MAGGY TREE <0.35 <0.35 kU/L 06/21/2024 11:32 AM [facility] Comment:<0.35 IS CLASS 0 (NE GATIVE) ALLERGEN PECAN HICKORY <0.35 <0.35 kU/L 06/21/2024 11:32 AM [facility] Comment:<0.35 IS CLASS 0 (NE GATIVE) ALLERGEN MOUNTAIN JUNIPER 0.39(H) <0.35 kU/L 06/21/2024 11:32 AM [facility] Comment:0.35 - 0.70 IS CLASS 1 (EQUIVOCAL) ALLERGEN OAK <0.35 <0.35 kU/L 06/21/2024 11:32 AM [facility] Comment:<0.35 IS CLASS 0 (NE GATIVE) ALLERGEN WHITE MULBERRY TREE <0.35 <0.35 kU/L 06/21/2024 11:32 AM HEAD TRACK COACH [facility] Comment:<0.35 IS CLASS 0 (NE GATIVE) ALLERGEN ELM <0.35 <0.35 kU/L 06/21/2024 11:32 AM HEAD TRACK COACH [facility] Comment:<0.35 IS CLASS 0 (NE GATIVE) ALLERGEN COMMON RAGWEED 4.05(H) <0.35 kU/L 06/21/2024 11:32 AM HEAD TRACK COACH [facility] Comment:3.51 - 17.5 IS CLASS 3 (POSITIVE) ALLERGEN SALTWORT <0.35 <0.35 kU/L 06/21/2024 11:32 AM HEAD TRACK COACH [facility] Comment:<0.35 IS CLASS 0 (NE GATIVE) ALLERGEN PIGWEED <0.35 <0.35 kU/L 06/21/2024 11:32 AM HEAD TRACK COACH [facility] Comment:<0.35 IS CLASS 0 (NE GATIVE) ALLERGEN ROUGH MARSHELDER 0.63(H) <0.35 kU/L 06/21/2024 11:32 AM HEAD TRACK COACH [facility] Comment:0.35 - 0.70 IS CLASS 1 (EQUIVOCAL) ALLERGEN MOUSE URINE PROTEIN <0.35 <0.35 kU/L 06/20/2024 1:29 PM HEAD TRACK COACH [facility] Comment:<0.35 IS CLASS 0 (NE GATIVE) 06/18/2024 10:3 5 AM HEAD TRACK COACH us Ramsey Oakley MD LABORATORY Final Result [facility] [address] [place] [address], [id number] documented in this encounter Visit Diagnoses Diagnosis Moderate persistent asthma without complication (HHS/HCC) Unspecified asthma documented in this encounter Additional Health Concerns Assessment Noted Time PHQ-9 Depression Total Score: 1 09/29/19 22 10:03 AM HEAD TRACK COACH documented as of this encounter Care Teams Mink Farmer Relationship Specialty Start Date End Date Soledad Lucas MD [address] [address] PCP - General INTERNAL MEDICINE 09/29/21 documented as of this encounter
--- OUTSIDE RECORDS SUMMARY | 2024-08-03 03:23 | XMS_ITS | Encounter Summary ---
Author Organization [facility] Address [address] [place] [address]. [place], [place] [address] [place] [address] Care Team Providers Care Biomedical Service Engineer Name Role Phone Soledad Lucas MD Primary Care Provider [phone] Reason for Visit * Reason Onset Date Comments Follow Up Call 04/29/2024 Encounter Details Date Type Department Care Team (Late st Contact Info) Description 04/29/[address] [facility]ty Care - [place] [address] [address] [place] [address] [place] [address] [place] [address] 157 [place] [address] Follow Up Call Social History Tobacco Use Types Packs/Day Years [...] as of this encounter Progress Notes * Soledad Lucas MD - 04/29/2024 5:25 PM CDT I called and spoke with patient and he wanted a call back and reports he [facility] and has been unable to keep appointments with PT. He recently also lost his job but he stillhas insurance. He report still ongoing pain. Given information to call and schedule his MRI neck. 2 tablets of alprazolam given to help with anxiety with procedure. * Libra Goldberg - 04/29/2024 9:28 AM CDT This patient called to speak to you. Patient would not give a specific reason except getting back on track with his care. I advised that he has his annual physical on August 19, 2024 at 9:00 am with [facility], he was agreeable with that, but was persistent to have a call back. Thank you. documented in this encounter Plan of Treatment Upcoming Encounters Date Type Department Care Team (Late st Contact Info) Description 08/19/2024 9:00 AM RAILROAD WATCHMAN Office Visit [facility] Multispecialty Care - [place] [address] [address] [place] [address] Soledad Lucas MD [address] [place] [address] 12/16/2024 10:40 AM CDT Office Visit [facility] Mult[facility]pecialty Care - [facility] 3 [facility] [address] [place] [id number] Ramsey Oakley MD 3 [facility] [address] [place] [address] documented as of this encounter Visit Diagnoses Diagnosis Drug therapy- Primary Encounter for long-term (current) use of other medications documented in this encounter Additional Health Concerns Assessment Noted Time PHQ-9 Depression Total Score: 1 09/29/19 22 10:03 AM RAILROAD WATCHMAN documented as of this encounter Care Teams Biomedical Service Engineer Relationship Specialty Start Date End Date Soledad Lucas MD [address] [place] [id number] PCP - General INTERNAL MEDICINE 09/29/21 documented as of this encounter
--- OUTSIDE RECORDS SUMMARY | 2024-08-03 03:23 | XMS_ITS | Encounter Summary ---
Author Organization [facility] Address [address] [place] [address]. [place], [place] [address] [place] [address] Care Team Providers Care Data Management Specialist Name Role Phone Soledad Lucas MD Primary Care Provider [phone] Encounter Details Date Type Department Care Team (Latest Contact Info) Description 06/18/2024 Travel Social History Tobacco Use Types Packs/Day [...] st Contact Info) Description 08/19/2024 9:00 AM HOME CARE MUSIC THERAPIST Office Visit [facility] Medical [facility] Multispecialty Care - [place] [address] [address] [place] [address] Soledad Lucas MD [address] [place] [address] [address] [place] [address] 12/16/2024 10:40 AM CDT Office Visit [facility] Medical [facility] Multispecialty [address] [place] [address] Ramsey Oakley MD [address] [facility] [address] [place] [address] documented as of this encounter Visit Diagnoses Not on filedocumented in this encounter Additional Health Concerns Assessment Noted Time PHQ-9 Depression Total Score: 1 09/29/19 22 10:03 AM HOME CARE MUSIC THERAPIST documented as of this encounter Care Teams Data Management Specialist Relationship Specialty Start Date End Date Soledad Lucas MD [address] [address] PCP - General INTERNAL MEDICINE 09/29/21 documented as of this encounter
--- OUTSIDE RECORDS SUMMARY | 2024-08-03 03:23 | XMS_ITS | Encounter Summary ---
Author Organization [facility] Address [address] [place] [address]. [place], [place] [address] [place] [address] Care Team Providers Care Corporate Event Planner Name Role Phone Soledad Lucas MD Primary Care Provider Reason for Visit * Reason Comments Image (SCAN) Encounter Details Date Type Department Care Team (Latest Contact Info) Description 09/18/2023 Scan HEALTH INFO [facility] Scanned, Doc Med Group Image (SCAN) Social History Tobacco Use Types Packs/Day [...] st Contact Info) Description 08/19/2024 9:00 AM DESIGN MANAGER Office Visit [facility] Multispecialty Care - [place] [address] [address] [place] [address] Soledad Lucas MD [address] [place] [address] 157 [place] [address] 12/16/2024 10:40 AM CDT Office Visit [facility] Multispecialty Care - [facility] [address] [facility] [address] [place] [address] Ramsey Oakley MD [address] [place] [address] documented as of this encounter Procedures Procedure Name Priority Date/Time Associated Diagnosis Comments IMAGE GENERIC 09/18/2023 documented in this encounter Results * IMAGE GENERIC (09/18/2023) Anatomical Region Laterality Modality Other 09/18/2023 us Doc Med Group Scanned SCANNING Final Resu lt documented in this encounter Visit Diagnoses Not on filedocumented in this encounter Additional Health Concerns Infection Onset Date Last Indicated Resolved Time COVID-19 Rule Out 09/24/2023 09/24/2023 09/24/2023 3:59 PM DESIGN MANAGER Assessment Noted Time PHQ-9 Depression Total Score: 1 09/29/19 22 10:03 AM DESIGN MANAGER documented as of this encounter Care Teams Corporate Event Planner Relationship Specialty Start Date End Date Soledad Lucas MD [address] [facility] [address] [place] [address] PCP - General INTERNAL MEDICINE 09/29/21 documented as of this encounter
--- OUTSIDE RECORDS SUMMARY | 2024-08-03 03:23 | XMS_ITS | Encounter Summary ---
Author Organization [facility] Address [address] [place] [address]. [address] [address] Care Team Providers Care Meat Cutting Block Repairer Name Role Phone Soledad Lucas MD Primary Care Provider [phone] Reason for Visit * Reason Onset Date Comments Asthma 09/21/2023 Encounter Details Date Type Department Care Team (Late st Contact Info) Description 09/21/2023 Telephone [facility] Multispecialty Care - [place] [address] [address] [place] [address] Soledad Lucas MD [address] [place] [address] [address] [place] [address] Asthma Social History Tobacco Use Types Packs/Day Years [...] encounter Progress Notes * Koko Brand - 09/21/2023 9:16 AM CST Called patient to schedule and he stated that he has his father in law's to attend on 09/22/23 and cannot come in. US POLICE OFFICER * Koko Brand - 09/21/2023 8:03 AM CST Patient went to ER on 09/18/23 due to Asthma/Wheezing/SOB and received a breathing treatmentand IV steroids to assist. Patient states that since then he has continue to have wheezing, cough and has been taking Mucinex and OTC cold medications with no relief. Patient does have a nebulizer athome but is c/o it damaging his lungs . Please advise. Thank you. US POLICE OFFICER documented in this encounter Plan of Treatment Upcoming Encounters Date Type Department Care Team (Late st Contact Info) Description 08/19/2024 9:00 AM CAMPUS POLICE OFFICER Office Visit [facility] Multispecialty Care - [place] [address] [address] [place] [address] Soledad Lucas MD [address] [place] [address] 12/16/2024 10:40 AM CDT Office Visit [facility] Multispecialty [facility] 3 [facility] [address] [place] [phone] Ramsey Oakley MD 3 [facility] [address] [place] [address] documented as of this encounter Visit Diagnoses Not on filedocumented in this encounter Additional Health Concerns Assessment Noted Time PHQ-9 Depression Total Score: 1 09/29/19 22 10:03 AM CAMPUS POLICE OFFICER documented as of this encounter Care Teams Meat Cutting Block Repairer Relationship Specialty Start Date End Date Soledad Lucas MD [address] [place] [address] PCP - General INTERNAL MEDICINE 09/29/21 documented as of this encounter
--- OUTSIDE RECORDS SUMMARY | 2024-08-03 03:23 | XMS_ITS | Encounter Summary ---
Author Organization [facility] Address [address] [place] [address]. [place], [place] [address] [place] [address] Care Team Providers Care Sports Intern Name Role Phone Soledad Lucas MD Primary Care Provider [phone] Encounter Details Date Type Department Care Team (Latest Contact Info) Description 03/15/2024 Travel Social History Tobacco Use Types Packs/Day [...] st Contact Info) Description 08/19/2024 9:00 AM CAMPER ASSEMBLER Office Visit [facility] Medical [facility] Multispecialty Care - [place] [address] [address] [place] [address] Soledad Lucas MD [address] [place] [address] 157 [place] [address] 12/16/2024 10:40 AM CDT Office Visit [facility] Medical [facility] Multispecialty [address] [place] [address] Ramsey Oakley MD 3 [facility] [address] [place] [address] documented as of this encounter Visit Diagnoses Not on filedocumented in this encounter Additional Health Concerns Assessment Noted Time PHQ-9 Depression Total Score: 1 09/29/19 22 10:03 AM CAMPER ASSEMBLER documented as of this encounter Care Teams Sports Intern Relationship Specialty Start Date End Date Soledad Lucas MD [address] [address] PCP - General INTERNAL MEDICINE 09/29/21 documented as of this encounter
--- OUTSIDE RECORDS SUMMARY | 2024-08-03 03:23 | XMS_ITS | Encounter Summary ---
Author Organization [facility] - [facility] Address [address] [place] [address] [address] Care Team Providers Care Agency Appointments Supervisor Name Role Phone Soledad Lucas MD Primary Care Provider Reason for Visit * Reason Comments Follow Up Needs refill on daria pentin and vit d; Neck Pain Arm Pain Encounter Details Date Type Department Care Team (Latest Contact Info) Description 03/13/2024 1:00 PM CDT Office Visit [facility] Medical Group Multispecialty Care - [place] [address] [address] [place] [address] Soledad Lucas MD [address] [place] [address] [address] [place] [address] Follow Up (Needs refill on gabapentin and vit d;); Neck Pain; Arm Pain Social History Tobacco Use Types Packs/Day Years [...] Sign Reading Time Taken Comments Blood Pressure 127/72 03/13/2024 1:04 PM CDT Pulse 80 03/13/2024 1:04 PM CDT Temperature 36.2 ??C (97.2 ??F) 03/13/2024 1:04 PM CD T Respiratory Rate 18 03/13/2024 1:04 PM CDT Oxygen Saturation 99% 03/13/2024 1:04 PM CDT Inhaled Oxygen Concentration - - Weight 107 kg (235 lb 12.8 oz) 03/13/2024 1:04 P M CDT Height 185.4 cm (6' 1 ) 03/13/2024 1:04 PM CDT Body Mass Index 31.11 03/13/2024 1:04 PM CDT documented in this encounter Patient Instructions * Patient Instructions* Soledad Lucas MD - 03/13/2024 1:00 PM CDT Follow up in August 16, 2024 for your physical- come fasting. Please get your RSV and flu shot as well as covid vaccine from any local pharmacy. * Attachments The following attachments cannot be sent through Care Everywhere. * Asthma Discharge Instructions, Adult (Iraqi) documented in this encounter Progress Notes * Soledad Lucas MD - 03/13/2024 1:00 PM CDTAddended by: SOLEDAD LUCAS on: 03/19/2024 12:48 PM Modules accepted: Orders * Soledad Lucas MD - 03/13/2024 1:00 PM CDTSummary: Follow up notes Images from the original note were not included. Internal Medicine Outpatient Progress Note CC: Follow Up (Needs refill on gabapentin and vit d;), Neck Pain, and Arm Pain HPI: Juliet Stout is a 62-year-old male who presents for for chronic medical issues. Patient will be following up with ortho for the right shoulder pain at [facility]. Somenumbness in the right upper extremity and behind the right upper extremity worse with flexion of the right upper extremity. In physical therapy. He has neck pain and this is mild to moderate. It radiates to the back of head. He is gabapentin 400 mg three times daily and oxycodone 7.5-325 mg tabletsdaily as needed and Celebrex 100 mg twice daily. It helps. He is taking his breathing treatment Bretzri and albuterol as needed. He is rarely using his albuterol. No fatigue or cough or chest tightness. He is taking his singulair daily. He did get his Duonebs and has not needed using it for the past couple of month. Problem List Patient Active Problem List Diagnosis Derangement of posterior horn of lateral meniscus, unspecified laterality Primary osteoarthritis of right knee Osteoarthritis of multiple joints Primary hypertension Overweight (BMI 25.0-29.9) Mild intermittent asthma without complication (HHS/HCC) Vitamin D deficiency Prediabetes Cervical radiculopathy Right arm pain Past Medical History: Diagnosis Date Arthritis Hypertension [...] counsled by Dr Lucas Vaping Use Vaping status: Never Used Substance Use Topics Alcohol use: Yes Alcohol/week: 11.7 standard drinks of alcohol Types: 7 Cans of beer per week Comment: Socially Drug use: Yes Types: Marijuana Medications: Outpatient Medications Marked as Taking for the 03/13/24 encounter (Office Visit) with Soledad Lucas MD Medication Sig Dispense Refill albuterol sulfate HFA 108 (90 Base) MCG/ACT inhaler Inhale 2 puffs into the lungs every 6 (six) hours as needed for Wheezing. 18 g 5 atorvastatin (LIPITOR) 40 MG tablet Take 1 tablet (40 mg total) by mouth nightly at bedtime. 90 tablet 1 Fgawnqm-Nkjbizdfaev-Rqdbxqjwlk (BREZTRI AEROSPHERE) 160-9-4.8 MCG/ACT Aerosol Inhale 2 puffs into the lungs 2 (two) times daily. 10.7 g 5 celecoxib (CELEBREX) 100 MG capsule Take 1 capsule (100 mg total) by mouth 2 (two) times daily. Indications: pt not sure if this is right mg 60 capsule 2 gabapentin (NEURONTIN) 400 MG capsule Take 1 capsule (400 mg total) by mouth 3 (three) times daily.Indications: pt not sure of mg 90 capsule 1 ipratropium-albuterol (DUONEB) 0.5-2.5 (3) MG/3ML Solution Take 3 mLs by nebulization every 6 (six)hours as needed. 360 mL 11 losartan (COZAAR) 25 MG tablet Take 1 tablet (25 mg total) by mouth daily. 90 tablet 1 montelukast (SINGULAIR) 10 MG tablet Take 1 tablet (10 mg total) by mouth nightly at bedtime. 90 tablet 1 NEBULIZER DEVICE, DME, Take 1 Device by nebulization every 6 (six) hours as needed. Use for asthma attack. 1 Device 0 [START ON 03/20/2024] oxyCODONE-acetaminophen (PERCOCET) 7.5-325 MG tablet Take 1 tablet by mouth daily as needed for Pain. Indications: Chronic Pain 30 tablet 0 vitamin D2, ergocalciferol, (DRISDOL) 1.25 mg capsule Take 1 capsule (50,000 Units total) by mouth every 7 days. 12 capsule 3 Allergies: Review of patient's allergies indicates: Allergen Reactions Lisinopril Swelling Swollen lips Review of Systems Constitutional: Negative for chills, diaphoresis, fever, malaise/fatigue and weight loss. HENT: Negative. Eyes: Negative. Respiratory: Negative. Cardiovascular: Negative for chest pain, palpitations, orthopnea, claudication, leg swelling and PND. Gastrointestinal: Negative. Genitourinary: Negative. Musculoskeletal: Positive for joint pain. Negative for back pain, falls, myalgias and neck pain. Neurological: Negative. Psychiatric/Behavioral: Negative. Objective: Filed Vitals: 03/13/24 1304 BP: 127/72 Pulse: 80 Resp: 18 Temp: 97.2 ??F (36.2 ??C) TempSrc: Temporal SpO2: 99% Weight: 107 kg (235 lb 12.8 oz) Height: 1.854 m (6' 1 ) Body mass index is 31.11 kg/m??. General alert, cooperative, no distress HEENT [...] Psych Normal mood and affect MSK No synovitis, no bony tenderness, no joint effusions Lymph No cervical or supraclavicular adenopathy Assessment and Plan: Encounter Diagnose(s) ICD-10-CM SNOMED CT(R) 1. Mixed hyperlipidemia E78.2 MIXED HYPERLIPIDEMIA atorvastatin (LIPITOR) 40 MG tablet 2. Vitamin D deficiency E55.9 VITAMIN D DEFICIENCY vitamin D2, ergocalciferol, (DRISDOL) 1.25 mg capsule 3. Mild intermittent asthma with acute exacerbation (HHS/HCC) J45.21 MILD INTERMITTENT ASTHMA ipratropium-albuterol (DUONEB) 0.5-2.5 (3) MG/3ML Solution albuterol sulfate HFA 108 (90 Base) MCG/ACT inhaler Bblokkm-Syuhpxivmmg-Acvleiglgj (BREZTRI AEROSPHERE) 160-9-4.8 MCG/ACT Aerosol montelukast (SINGULAIR) 10 MG tablet 4. Primary hypertension I10 ESSENTIAL HYPERTENSION losartan (COZAAR) 25 MG tablet 5. Right shoulder pain, unspecified chronicity M25.511 PAIN OF RIGHT SHOULDER REGION celecoxib (CELEBREX) 100 MG capsule oxyCODONE-acetaminophen (PERCOCET) 7.5-325 MG tablet 6. Chronic bilateral low back pain with left-sided sciatica M54.42 CHRONIC LOW BACK PAIN gabapentin(NEURONTIN) 400 MG capsule G89.29 oxyCODONE-acetaminophen (PERCOCET) 7.5-325 MG tablet 1. Mixed hyperlipidemia -Tolerating medication well however has run out. Continue with atorvastatin (LIPITOR) 40 MG tablet;Take 1 tablet (40 mg total) by mouth nightly at bedtime. Dispense: 90 tablet; Refill: 1 2. Vitamin D deficiency -Run out of medication. Continue vitamin D2, ergocalciferol, (DRISDOL) 1.25 mg capsule; Take 1 capsule (50,000 Units total) by mouth every 7 days. Dispense: 12 capsule; Refill: 3 3. Mild intermittent asthma with acute exacerbation (HHS/HCC) -Controlled at this time -Continue ipratropium-albuterol (DUONEB) 0.5-2.5 (3) MG/3ML Solution; Take 3 mLs by nebulization every 6 (six) hours as needed. Dispense: 360 mL; Refill: 11 -Continue albuterol sulfate HFA 108 (90 Base) MCG/ACT inhaler; Inhale 2 puffs into the lungs every 6 (six) hours as needed for Wheezing. Dispense: 18 g; Refill: 5 4. Primary hypertension -Controlled -Patient currently controlled on current treatment for hypertension. Will continue. Continued to discuss weight loss, adequate cardiovascular fitness. DASH diet was discussed as well as decrease in sodium intake. BP goal of < 140/90 expressed. - Lifestyle modification including dietary changes to include less saturated fats, lean meat, more vegetables and exercise at least 30 min every day. -Continue losartan (COZAAR) 25 MG tablet; Take 1 tablet (25 mg total) by mouth daily. Dispense: 90 tablet; Refill: 1 5.Right shoulder pain, unspecified chronicity -Stable although not optimally controlled and patient will be following up with orthopedics. Will continue to use medications as listed below as well as Tylenol arthritis as needed. Alternate heatingpads and lidocaine patches -celecoxib (CELEBREX) 100 MG capsule; Take 1 capsule (100 mg total) by mouth 2 (two) times daily. Indications: pt not sure if this is right mg Dispense: 60 capsule; Refill: 2 - oxyCODONE-acetaminophen (PERCOCET) 7.5-325 MG tablet; Take 1 tablet by mouth daily as needed for Pain. Indications: Chronic Pain Dispense: 30 tablet; Refill: 0 7. Chronic bilateral low back pain with left-sided sciatica -Stable. Continue medications as listed - gabapentin (NEURONTIN) 400 MG capsule; Take 1 capsule (400 mg total) by mouth 3 (three) times daily. Indications: pt not sure of mg Dispense: 90 capsule; Refill: 1 - oxyCODONE-acetaminophen (PERCOCET) 7.5-325 MG tablet; Take 1 tablet by mouth daily as needed for Pain. Indications: Chronic Pain Dispense: 30 tablet; Refill: 0 Counseling given: Yes Tobacco comments: counsled by Dr Lucas I personally spent a total of 30 minutes on the day of the encounter. This includes rtdt-wh-wzym and iej-vxaz-kq-face time I provided on the day of the encounter & excludes time spent performing separately reportable services. Side effects and less common but more severe adverse effects of recommended medical therapies were explained to the patient. Follow up office visit in 5 months. Requested MyChart or telephone follow up prn if symptoms change, worsen, or persist, or if side effect of treatment is experienced. DRAGON: This dictation was at least in part performed using Ismole and there may be some inherent flaws in this ux designer due to the nature of this program. Soledad Lucas MD Internal Medicine [facility], [facility]. documented in this encounter Plan of Treatment Upcoming Encounters Date Type Department Care Team (Late st Contact Info) Description 08/19/2024 9:00 AM CLEATER Office Visit [facility] Multispecialty Care - [address] [place] [address] Soledad Lucas MD [address] [place] [address] 12/16/2024 10:40 AM CDT Office Visit [facility] Multispecialty Care - [address], [address] [place] [phone] Ramsey Oakley MD [address] [place] [address] documented as of this encounter Visit Diagnoses Diagnosis Mixed hyperlipidemia Vitamin D deficiency Unspecified vitamin D deficiency Mild intermittent asthma with acute exacerbation (HHS/HCC) Unspecified asthma, with exacerbation Primary hypertension Unspecified essential hypertension Right shoulder pain, unspecified chronicity Chronic bilateral low back pain with left-sided sciatica documented in this encounter Additional Health Concerns Assessment Noted Time PHQ-9 Depression Total Score: 1 09/29/19 22 10:03 AM CLEATER documented as of this encounter Care Teams Agency Appointments Supervisor Relationship Specialty Start Date End Date Soledad Lucas MD [address] [address] PCP - General INTERNAL MEDICINE 09/29/21 documented as of this encounter
--- OUTSIDE RECORDS SUMMARY | 2024-08-03 03:23 | XMS_ITS | Encounter Summary ---
Author Organization [facility] - [facility] Address [address] [place] [address]. [place], [place] [address] [place] [address] Care Team Providers Care Terminal Superintendent Name Role Phone Soledad Lucas MD Primary Care Provider [phone] Reason for Visit * Reason Onset Date Comments Results 06/21/2024 Encounter Details Date Type Department Care Team (Late st Contact Info) Description 06/21/2024 Telephone [facility] Medical Group Multispecialty Care - [facility] [address] [facility] [address] [place] [phone] Ramsey Oakley MD [address] [facility] [address] [place], [place] [phone] Results Social History Tobacco Use Types Packs/Day Years [...] as of this encounter Progress Notes * Priya Veliz MA - 06/21/2024 2:19 PM CST Called pt at this time gave results pt verbalized understanding and stated he is going to get the Claritin over the counter. NING SUPERVISOR * Marj Singh - 06/21/2024 2:18 PM CST Pt returned call and was transferred to Priya NING SUPERVISOR * Priya Veliz MA - 06/21/2024 12:46 PM CST Called pt at this time no answer voicemail left to call back. NING SUPERVISOR * Priya eVliz MA - 06/21/2024 12:44 PM CST ----- Message from Dr. Ramsey Oakley sent at 06/21/2024 12:35 PM CLEANING SUPERVISOR ----- Please let him know that his allergy panel shows multiple positives including environmental molds, grasses, ragweed. I recommend he start Claritin 10 mg nightly. Okay to prescribe or he can buy aoid-rci-hsfvskd if he prefers. Ramsey Oakley MD NING SUPERVISOR documented in this encounter Plan of Treatment Upcoming Encounters Date Type Department Care Team (Late st Contact Info) Description 08/19/2024 9:00 AM CLEANING SUPERVISOR [facility] [place] [address] [place] [address] [address] [place] [address] [place] [address] [place] [address] [address] [place] [address] 12/16/2024 10:40 AM CDT Office Visit [facility] Multispecialty [facility] - [address] [place] [address] Ramsey Oakley MD [address] [facility] [address] [place] [address] documented as of this encounter Visit Diagnoses Not on filedocumented in this encounter Additional Health Concerns Assessment Noted Time PHQ-9 Depression Total Score: 1 09/29/19 22 10:03 AM CLEANING SUPERVISOR documented as of this encounter Care Teams Terminal Superintendent Relationship Specialty Start Date End Date Soledad Lucas MD [address] [facility] [address] [place] [address] PCP - General INTERNAL MEDICINE 09/29/21 documented as of this encounter
--- OUTSIDE RECORDS SUMMARY | 2024-08-03 03:23 | XMS_ITS | Encounter Summary ---
Author Organization [facility] Address [address] [place] [address]. [address] [address] Care Team Providers Care Summer Babysitter Name Role Phone Soledad Lucas MD Primary Care Provider [phone] Reason for Referral * Consultation (Urgent) - Pending Review Specialty Diagnoses / Procedures Referred By Prasanth santillan Referred To Contact ORTHOPAEDICS Diagnoses Right shoulder pain, unspecified chronicity Procedures OFFICE/OUTPATIENT NEW LOW MDM 30-44 MINUTES OFFICE/OUTPT VISIT,NEW,LEVL IV OFFICE/OUTPT VISIT,NEW,LEVL V OFFICE/OUTPT VISIT,EST,LEVL III OFFICE/OUTPT VISIT,EST,LEVL IV OFFICE/OUTPT VISIT,EST,LEVL V Soledad Lucas MD [address] [place] [address] [address] Phone: tel: fax: Jude Lr MD [address] [place] [address] Phone: tel: fax: Referral ID Status Reason Start Date Expiration Date Visits Requested Visits Authorized [id number] Pending Review Specialty Services 01/05/2024 01/04/2025 1 1 Reason for Visit * Reason Onset Date Comments Pain 01/05/2024 Medication 01/05/2024 Referral 01/05/2024 Encounter Details Date Type Department Care Team (Late st Contact Info) Description 01/05/2024 Telephone [facility] Medical Group Multispecialty Care - [place] [address] [facility] [address] [place] [address] Soledad Lucas MD [address] [facility] [address] [place] [address] Pain; Medication; Referral Social History Tobacco Use Types Packs/Day Years [...] Progress Notes * Soledad Lucas MD - 01/08/2024 4:44 PM CDTAddended by: SOLEDAD LUCAS on: 01/08/2024 04:44 PM Modules accepted: Orders * Soledad Lucas MD - 01/05/2024 6:37 PM CDT Please notify patient. Referral placed to orthopedics for patient. Follow-up with our referral center [id number] on this referral. Pain medicatio continues n refilled thanks. * Jatin Cortez - 01/05/2024 1:02 PM CDT Pt called today, he is still having pain in his right arm running running down to his finger, he stated that he would like a referral for this, also he is out of his Oxycodone, he has moved to [place] and now uses the [facility] on [address]. documented in this encounter Plan of Treatment Upcoming Encounters Date Type Department Care Team (Late st Contact Info) Description 08/19/2024 9:00 AM SPREADER OPERATOR Office [facility] [place] [address] [address] [place] [address] Soledad Lucas MD Critical access hospital[address] [place] [address] [address] 12/16/2024 10:40 AM CDT [facility] [facility] [address] [facility] [address] [place] [address] Ramsey Oakley MD [address] [facility] [address] [place] [address] Scheduled Referrals Name Type Priority Associated Diagnoses Orde r Schedule Ambulatory referral to Orthopedics (OTHER) Referral Routine Right shoulder pain, unspecified chronicity Ordered: 01/08/2024 documented as of this encounter Visit Diagnoses Diagnosis Right shoulder pain, unspecified chronicity- Primary Cervical radiculopathy Brachial neuritis or radiculitis nos Chronic bilateral low back pain with left-sided sciatica documented in this encounter Additional Health Concerns Assessment Noted Time PHQ-9 Depression Total Score: 1 09/29/19 10:03 AM SPREADER OPERATOR documented as of this encounter Care Teams Summer Babysitter Relationship Specialty Start Date End Date Soledad Lucas MD [address] [place] [address] PCP - General INTERNAL MEDICINE 09/29/21 documented as of this encounter
--- OUTSIDE RECORDS SUMMARY | 2024-08-03 03:23 | XMS_ITS | Encounter Summary ---
Author Organization [facility] - [facility] Address [address] [place] [address]. [address] [address] Care Team Providers Care Steam Shovel Oiler Name Role Phone Soledad Lucas MD Primary Care Provider [phone] Reason for Visit * Reason Onset Date Comments Information 02/16/2024 Encounter Details Date Type Department Care Team (Late st Contact Info) Description 02/16/2024 Telephone [facility] Medical Group Multispecialty Care - [place] [address] [address] [place] [address] Soledad Lucas MD [address] [place] [address] [address] [place] [address] Information Social History Tobacco Use Types Packs/Day Years [...] as of this encounter Progress Notes * Scarlett Eugene MA - 02/19/2024 11:52 AM CDT Called pt to let them know about the paperwork. Mailbox was full and unable to leave message. Pt does not have an active My Chart to send message. Will call pt tomorrow. * Soledad Lucas MD - 02/18/2024 8:23 PM CDT Please call patient: Please let patient know that I did review the paper work he dropped off a few days ago: Chronic Conditions Release of information form filled out. Just FYI he does not have diabetes nor heart failure nor heart disease and this has been noted on the form and faxed thanks. Thanks. Form faxed on 02/19/2024 to patient insurance thanks. * Jatin Cortez - 02/16/2024 3:17 PM CDT Pt came in today as a walk up with paper work from [facility] that needs to be filled out for Darrel Riggsok paper work and put on doctors desk. documented in this encounter Plan of Treatment Upcoming Encounters Date Type Department Care Team (Late st Contact Info) Description 08/19/2024 9:00 AM DESILVERIZER Office Visit [facility] Multispecialty Care - [place] [address] [address] [place] [address] Soledad Lucas MD [address] [place] [address] 12/16/2024 10:40 AM CDT Office Visit [facility] Multispecialty Care - [facility] [address] [facility] [place] [address] Ramsey Oakley MD [address] [facility] [address] [place] [address] documented as of this encounter Visit Diagnoses Not on filedocumented in this encounter Additional Health Concerns Assessment Noted Time PHQ-9 Depression Total Score: 1 09/29/19 22 10:03 AM DESILVERIZER documented as of this encounter Care Teams Steam Shovel Oiler Relationship Specialty Start Date End Date Soledad Lucas MD [address] [address] PCP - General INTERNAL MEDICINE 09/29/21 documented as of this encounter
--- OUTSIDE RECORDS SUMMARY | 2024-08-03 03:23 | XMS_ITS | Encounter Summary ---
Author Organization [facility] Address [address] [place] [address]. [place], [place] [address] [place] [address] Care Team Providers Care Patient Services Coordinator Name Role Phone Soledad Lucas MD Primary Care Provider Encounter Details Date Type Department Care Team (Latest Contact Info) Description 01/12/2024 Travel Social History Tobacco Use Types Packs/Day [...] st Contact Info) Description 08/19/2024 9:00 AM WELDING PANTOGRAPH MACHINE OPERATOR Office Visit [facility] Medical [facility] Multispecialty Care - [place] [address] [address] [place] [address] Soledad Lucas MD [address] [place] [address] [address] [place] [address] 12/16/2024 10:40 AM CDT Office Visit [facility] Medical [facility] Multispecialty [address] [place] [address] Ramsey Oak[facility] MD [address] [facility] [address] [place] [address] documented as of this encounter Visit Diagnoses Not on filedocumented in this encounter Additional Health Concerns Assessment Noted Time PHQ-9 Depression Total Score: 1 09/29/19 22 10:03 AM WELDING PANTOGRAPH MACHINE OPERATOR documented as of this encounter Care Teams Patient Services Coordinator Relationship Specialty Start Date End Date Soledad Lucas MD [address] [address] PCP - General INTERNAL MEDICINE 09/29/21 documented as of this encounter
--- OUTSIDE RECORDS SUMMARY | 2024-08-03 03:23 | XMS_ITS | Encounter Summary ---
Author Organization [facility] Address [address] [place] [address]. [place] [address] Care Team Providers Care Division Chair Name Role Phone Soledad Lucas MD Primary Care Provider [phone] Reason for Visit * Reason Comments Cerv Pain * Physical Medicine (Routine) - Closed Specialty Diagnoses / Procedures Referred By Prasanth santillan Referred To Contact PHYSICAL THERAPY / [facility] Physical Therapy Diagnoses Right shoulder pain, unspecified chronicity Cervical radiculopathy Right arm pain Procedures OFFICE/OUTPATIENT NEW LOW MDM 30-44 MINUTES OFFICE/OUTPT VISIT,NEW,LEVL IV OFFICE/OUTPT VISIT,NEW,LEVL V OFFICE/OUTPT VISIT,EST,LEVL III OFFICE/OUTPT VISIT,EST,LEVL IV OFFICE/OUTPT VISIT,EST,LEVL V Isabel Adair, BIOFUELS PLANT CONSTRUCTION WORKER [address] [place] [address] Phone: tel: fax: [facility] [address] [place] [address] Phone: tel: fax: Referral ID Status Reason Start Date Expiration Date V isits Requested Visits Authorized [id number] Closed Physical Therapy 01/12/2024 04/06/2024 12 12 Encounter Details Date Type Department Care Team (Late st Contact Info) Description 02/16/2024 2:00 PM CDT Office Visit [facility] [address] [phone] Soledad Lucas MD 1188 [facility] [address] [place] [address] Daniela Whyte, PT [address] [facility] [address] Cerv Pain Social History Tobacco Use Types Packs/Day [...] on file documented as of this encounter Patient Instructions * Patient Instructions* Daniela Whyte, PT - 02/16/2024 2:00 PM CDT Access Code: [email or web address] URL: [email or web address] Date: 02/16/2024 Prepared by: Daniela Whyte Exercises - Seated Scapular Retraction - 1 x daily - 7 x weekly - 10 reps - Supine Cervical Retraction with Towel - 1 x daily - 7 x weekly - 10 reps - Supine Shoulder Internal Rotation - 1 x daily - 7 x weekly - 10 reps - Supine Shoulder External Rotation Stretch - 1 x daily - 7 x weekly - 10 reps Patient Education - Sleep Positions documented in this encounter Progress Notes * Daniela Whyte, PT - 02/16/2024 2:00 PM CDT Physical Therapy Evaluation Date: 02/16/2024 Patient Name: Juliet Stout : 08/14/1961 Diagnosis: The primary encounter diagnosis was Cervical pain (neck). A diagnosis of Cervical radiculopathy was also pertinent to this visit. Time In: 1400 Time out: 1500 Subjective: History of present condition:the patient is a 62 yo male with chief complaint of neck pain, headaches and right arm pain. He denies and recent injury but his hand has been getting numb for a while. Today he relates he has right arm and neck pain and gets numbness to 4th and 5th fingers.Laying on his right side and bending elbow seem to aggravate some but he is not sure. Seems to be getting worse. He does work one day a week at a [employer]. Mechanism of injury: unknown Pain: current /10 best 5/10 worst 10/10 Location of pain: right neck and right arm and hand Quality of pain: numbness and tingling, aching, radiating Alleviating factors:unknown Exacerbating factors: unsure Prior level of function(PLOF):cont to do most activities Patient goals for PT: have less numbness and loosen his neck Past medical history: meniscal tear, OA, HTN, asthma, cervical radiculopathy, preDM Occupation:disabled but works at [employer] 1 day week. Images: MRI ordered and referrals to hand surgery, neurosurgery, and Ortho See scanned patient history OBJECTIVE: Posture: fwd head, thoracic kyphosis, scapular abducted and right elevated Palpation:tender to right AC, upper trap and supraspinatus, posterior capsule on right Cervical AROM: Flexion: WNL tightness Extension: 20 tightness on right Sidebending:WNL tightness both sides Rotation:60% both sides and feels tight UE ROM: Shoulder flex: WNL Abduction: WNL ER BTH: T2 IR BTB: Rt mid thoracic Lt right scapula Passive ROM shoulder: ER in supine: Rt 70 Lt 90 IR in supine: Rt 20 Lt 45 UE strength: Shoulder Flexion :Rt 4-/5 Lt 4+/5 ABduction: Rt 4-/5 pain Lt 4+/5 ER:4/5 IR: 4/5 Elbow: Flexion: Rt 4/5 Lt 4+/5 Extension: 4+/5 pain on right Pronation:4+/5 Supination:4+/5 Scapular strength: Rhomboids:3 Middle Trapezius:3 Lower Trapezius:3-/5 Special Tests: Distraction:negative Compression: feels good Spurling: negative Tinnels at elbow negative Physical Therapy Certification Form - Spine Treatment Today: Initial Evaluation completed with patient education on evaluation findings and plan of care Postural Education: educated on sleeping posture- keep elbows straight and support right arm if laying on left side HEP instruction: educated in anatomy of neck and shoulder and findings, manual to neck for reduced tightness, chin tucks, scap retract, and shoulder ER/IR at 90 degrees shoulder abduction no pain Outcome tool: NDI and SPADI Score: 11/50 and 51/130 Therapy Exercise neck and shoulder movement Manual therapy: suboccipital stretch and cervical distranction Timed Code Tx Minutes 25 Units 2 Total Tx Time 25 15 Therapeutic Exercise, 10, 30 Mod Therapy Diagnosis: Cervicalgia right Disorder of Muscle Muscle weakness (generalized-multiple) Pain in Area right shoulder and arm Pain in Joint right shoulder and elbow Radiculopathy Patient demonstrated Good understanding of above education and HEP. Rehab Potential Good Assessment: The patient is a 62 yo male that presents today for physical therapy due to neck and arm pain. He demonstrates impairments of reduced cervical rotation and shoulder rotation, reduced elbow extension, reduced shoulder strength. These impairments limit the patient's ability to rest well and reduced endurance due to arm numbness. The patient will benefit from skilled PT to include therapeutic exercise and activities, manual therapy, and neuro- reeducation, and modalities as needed to reduce symptoms, improve function and promote self management. Short Term Goals: to be met in 8 visits Increase ROM/ flexibility of neck rotation and shoulder IR Good Posture/body Mechanics Decrease pain 5/10 neck and arm Decrease muscle spasm/tissue tension upper scapular area Gyroscopic Instrument Mechanic Goals: to be met at DC: Independent HEP Decrease pain 3/10 Increase strength scapular muscles to 4/5 for support of neck and shoulder Increase strength right shoulder to 4+/5 for lifting and functional activities Other: Improved perceived disability as noted with NDI > 5 and SPADI >13 Assessment Eval Complexity Personal Factor/Co-morbidities: 1-2 (Mod) Chronicity, Coping Styles, HTN Examination of Body Systems Needing Addressed: 3 or more (Mod) Carrying and Handling Deficits, Muscle Tension, Sleep Deficits, UE Deficits Clinical Presentation of Patient: Evolving (Mod) Evolving and changing characteristics - Peripheral Symptoms Varying Pain with Activity Clinical Decision Making: Mod Patient to be seen for: balance, biofeedback, body mechanics education, flexibilty, gait, home exercise program, instruction in self-help/behavior modification, manual therapy, modalities, neuromuscular reeducation, posture education, PRN, ROM, strengthening Next Visit: Review HEP and patient education. Scapular stability and wall slides, cervical mobility Frequency: 2 times per 5-6 week for 30-60 minutes for 10-12 visits. Therapist: Daniela Whyte PT Date: 02/16/24 Time: 2:00 PM Physician Signature: Date: Time: Patient Name: Juliet Stout : 08/14/1961 Cosigned by Soledad Lucas MD at 02/16/2024 5:19 PM CDT documented in this encounter Plan of Treatment Upcoming Encounters Date Type Department Care Team (Late st Contact Info) Description 08/19/2024 9:00 AM ASSEMBLER CORNCOB PIPES Office Visit [facility]ty Care - [address] [place] [address] Soledad Lucas MD [address] [place] [address] 12/16/2024 10:40 AM CDT Office Visit [facility] Care - [facility] [address] [facility] [place] [phone] Ramsey Oakley MD [address] [facility] [address] [place] [address] documented as of this encounter Visit Diagnoses Diagnosis Cervical pain (neck)- Primary Cervicalgia Cervical radiculopathy Brachial neuritis or radiculitis nos documented in this encounter Additional Health Concerns Assessment Noted Time PHQ-9 Depression Total Score: 1 09/29/19 22 10:03 AM ASSEMBLER CORNCOB PIPES documented as of this encounter Care Teams Division Chair Relationship Specialty Start Date End Date Soledad Lucas MD [address] [id number] PCP - General INTERNAL MEDICINE 09/29/21 documented as of this encounter
--- OUTSIDE RECORDS SUMMARY | 2024-08-03 03:23 | XMS_ITS | Encounter Summary ---
Author Organization [facility] Address [address] [place] [address]. 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 Office Visit [facility] Medical [facility] Multispecialty Care - [place] [address] [address] [place] [address] Soledad Lucas MD [address] [place] [address] 157 [place] [address] 12/16/2024 10:40 AM CDT Office Visit [facility] Medical [facility] Multispecialty [address] [place] [address] Ramsey Oakley MD [address] [facility] [address] [place] [address] documented as of this encounter Visit Diagnoses Not on filedocumented in this encounter Additional Health Concerns Assessment Noted Time PHQ-9 Depression Total Score: 1 09/29/19 22 10:03 AM NON CDL DRIVER documented as of this encounter Care Teams Tester Electronic Scale Relationship Specialty Start Date End Date Soledad Lucas MD [address] [address] PCP - General INTERNAL MEDICINE 09/29/21 documented as of this encounter
--- OUTSIDE RECORDS SUMMARY | 2024-08-03 03:23 | XMS_ITS | Encounter Summary ---
Author Organization [facility] Address [address] [place] [address]. [place], [place] [address] [place] [address] Care Team Providers Care Pre Coder Name Role Phone Soledad Lucas MD Primary Care Provider [phone] Reason for Visit * Reason Comments Image (SCAN) Encounter Details Date Type Department Care Team (Latest Contact Info) Description 01/15/2024 Scan HEALTH INFO SRVCS Scanned, Doc Med [...] st Contact Info) Description 08/19/2024 9:00 AM GED TEACHER Office Visit [facility] Multispecialty Care - [place] [address] [address] [place] [address] Soledad Lucas MD [address] [place] [address] 157 [place] [address] 12/16/2024 10:40 AM CDT Office Visit [facility] Multispecialty Care - [facility]'s [address] [place] [address] Ramsey Oakley MD [address] [place] [address] documented as of this encounter Procedures Procedure Name Priority Date/Time Associated Diagnosis Comments IMAGE GENERIC 01/15/2024 IMAGE GENERIC 01/15/2024 IMAGE GENERIC 01/15/2024 IMAGE GENERIC 01/15/2024 IMAGE GENERIC 01/15/2024 IMAGE GENERIC 01/15/2024 documented in this encounter Results * IMAGE GENERIC (01/15/2024) Anatomical Region Laterality Modality Other 01/15/2024 [facility] Scanned SCANNING Final Resu lt * IMAGE GENERIC (01/15/2024) Anatomical Region Laterality Modality Other 01/15/2024 [facility] Scanned SCANNING Final Resu lt * IMAGE GENERIC (01/15/2024) Anatomical Region Laterality Modality Other 01/15/2024 [facility] Scanned SCANNING Final Resu lt * IMAGE GENERIC (01/15/2024) Anatomical Region Laterality Modality Other 01/15/2024 [facility] Scanned SCANNING Final Resu lt * IMAGE GENERIC (01/15/2024) Anatomical Region Laterality Modality Other 01/15/2024 [facility] Scanned SCANNING Final Resu lt * IMAGE GENERIC (01/15/2024) Anatomical Region Laterality Modality Other 01/15/2024 [facility] Scanned SCANNING Final Resu lt documented in this encounter Visit Diagnoses Not on filedocumented in this encounter Additional Health Concerns Assessment Noted Time PHQ-9 Depression Total Score: 1 09/29/19 22 10:03 AM GED TEACHER documented as of this encounter Care Teams Pre Coder Relationship Specialty Start Date End Date Soledad Lucas MD [address] [address] PCP - General INTERNAL MEDICINE 09/29/21 documented as of this encounter
--- OUTSIDE RECORDS SUMMARY | 2024-08-03 03:23 | XMS_ITS | Encounter Summary ---
Author Organization [facility] Address [address] [place] [address]. [place], [place] [address] [place] [address] Care Team Providers Care 4 H Youth Development Specialist Name Role Phone Soledad Lucas MD Primary Care Provider Reason for Visit * Reason Comments Image (SCAN) Encounter Details Date Type Department Care Team (Latest Contact Info) Description 02/14/2024 Scan HEALTH INFO SRVCS Scanned, Doc Med [...] st Contact Info) Description 08/19/2024 9:00 AM DOSIER OPERATOR Office Visit [facility] Multispecialty Care - [place] [address] [address] [place] [address] Soledad Lucas MD [address] [place] [address] 157 [place] [address] 12/16/2024 10:40 AM CDT Office Visit [facility] Multispecialty Care - [facility] [address] [place] [address] Ramsey Oakley MD [address] [place] [address] documented as of this encounter Procedures Procedure Name Priority Date/Time Associated Diagnosis Comments IMAGE GENERIC 02/14/2024 IMAGE GENERIC 02/14/2024 documented in this encounter Results * IMAGE GENERIC (02/14/2024) Anatomical Region Laterality Modality Other 02/14/2024 [facility] Scanned SCANNING Final Resu lt * IMAGE GENERIC (02/14/2024) Anatomical Region Laterality Modality Other 02/14/2024 us [facility] Scanned SCANNING Final Resu lt documented in this encounter Visit Diagnoses Not on filedocumented in this encounter Additional Health Concerns Assessment Noted Time PHQ-9 Depression Total Score: 1 09/29/19 22 10:03 AM DOSIER OPERATOR documented as of this encounter Care Teams 4 H Youth Development Specialist Relationship Specialty Start Date End Date Soledad Lucas MD [facility] [address] PCP - General INTERNAL MEDICINE 09/29/21 documented as of this encounter
--- OUTSIDE RECORDS SUMMARY | 2024-08-03 03:23 | XMS_ITS | Encounter Summary ---
Author Organization [facility] Address [address] [place] [address]. [address] [address] Care Team Providers Care Template Fitter Name Role Phone Soledad Lucas MD Primary Care Provider [phone] Reason for Visit * Reason Comments Cerv Radiculitis * Physical Medicine (Routine) - Closed Specialty Diagnoses / Procedures Referred By Prasanth santillan Referred To Contact PHYSICAL THERAPY / [facility] Physical Therapy Diagnoses Right shoulder pain, unspecified chronicity Cervical radiculopathy Right arm pain Procedures OFFICE/OUTPATIENT NEW LOW MDM 30-44 MINUTES OFFICE/OUTPT VISIT,NEW,LEVL IV OFFICE/OUTPT VISIT,NEW,LEVL V OFFICE/OUTPT VISIT,EST,LEVL III OFFICE/OUTPT VISIT,EST,LEVL IV OFFICE/OUTPT VISIT,EST,LEVL V Isabel Adair, REGISTERED NURSE AMBULATORY [address] [place] [address] Phone: tel: fax: [facility] [address] [place] [address] Phone: tel: fax: Referral ID Status Reason Start Date Expiration Date V isits Requested Visits Authorized [id number] Closed Physical Therapy 01/12/2024 04/06/2024 12 12 Encounter Details Date Type Department Care Team (Late st Contact Info) Description 03/15/2024 10:15 AM CDT Office Visit [facility] [address] [place] [address] Daniela Whyte, PT [facility] [place] [address] Cerv Radiculitis Social History Tobacco Use Types Packs/Day Years [...] as of this encounter Progress Notes * Daniela Whyte, PT - 03/15/2024 10:15 AM CDT Physical Therapy Visit Note: Patient Name: Juliet Stout Diagnosis: Cervical radiculopathy (primary encounter diagnosis) Cervical pain (neck) SUBJECTIVE Therapy Visit Start Time: 1015 Stop Time: 1100 Time Calculation (min): 45 min Treatment Day: 3 Total Approved Visits: 10 requested based on medical necessity Therapy Plan of Care: address posture, scapular and RTC movement and stregth, nerve glides and manual as needed Current Therapy Orders: eval and treat cervical radiculopathy Diagnosis: cervical pain and cervical radiculopahy Referring Provider: Soledad Lucas Hand Dominance: Right Subjective No issues with his last session. Feeling about the same overall. Right shoulder and right elbow cont to aggravate him. Scheduled for an MRI next week. Nervous about that due claustrophobic. Unsure hewill be able to do it but its open. notes sleeping aggravates his elbow and nerve pain and holding his phone to talk or read aggravates his symptoms. had to take pain meds last night. Response to prior treatment: good Reported Falls since last visit: none Medications changes since last visit : none Pain Current Location of Pain: right arm Current Pain Level: 6/10 with OBJECTIVE Treatment provided today: Objective Observation: right shoulder more depressed and fwd vs left Neuromuscular Re-education - 55457 Number of Minutes - 24949: 15 Intervention: held chin tucks seated and reivew supine x 8 hold 5 seconds Intervention: scapular retraction standing with ball to upper back Intervention: shoulder flexion with ball to back against the wall. Intervention: standing ER with towel roll red band, cues to press into roll with ER 2 x 10 ea Intervention: supine horizontal abduction red band 2 x 10 Intervention: supine shoulder ER and retract red band Other (Comments): done for shoulder and scapular proprioception Therapeutic Exercise - 49572 Number of Minutes - 64946: 30 Exercise: nu step seat 11 arms 13 x 4 min level 6 Exercise: held seated cervical AROM: flex / ext, rotate and side bend cues for movement Exercise: educated on why having some headache to neck due to overuse of upper trap Exercise: scapular retract with rowing with green band Exercise: shoulder extension with green band x 15 Exercise: triceps extension red band and isometric scap retract. Exercise: supine protraction 1 set 6# x 10 elbow pain with shoulder ER Exercise: supine triceps extension x 10 Exercise: educate on shoulder posture and purpose of activities with use of mirror for feedback Other (Comments): done for scapular and shoulder strength, and posture Manual Therapy - 73106 Number of minutes-99745: held today Intervention: cervical distraction Intervention: cervical suboccipital release Home Exercise Program Current Home Exercise Program: no changes Education Was Education Provided: Yes Topic: see exercise section Recipient: Patient Method: Verbal Response: Verbalized understanding ASSESSMENT Assessment Note: the patient requires a lot of cues with scapular muscle activation of middle and lower traps on right arm. He tends to overuse his elbow and upper traps with the movements. Needs cues on not pulling his elbow back too far with rows and with triceps work. Weak to right shoulder ER and scapularmuscles still noted. Overworking upper trap likely contributes to neck pain and headache. Cont to use mirror for feedback with activities and proper muscle activation. Response to Treatment : good but some aggravation no greater than 5/10 Continue on Functional Deficit of: reduced RTC and scapular strength with more stain to neck and elbow, reduced posture awareness. aggraved sleep due to arm pain PLAN Plan Changes: standing scapular and RTC strength Next Visit Plan: cont to build on scapular stability and shoulder strength to aide with neck and radicular symptoms Total Time Total Time in Minutes: 45 Timed Code Treatment Minutes : 45 documented in this encounter Plan of Treatment Upcoming Encounters Date Type Department Care Team (Late st Contact Info) Description 08/19/2024 9:00 AM WAREHOUSE AND RECEIVING SUPERVISOR [facility] - [place] [address] [address] [place] [address] Soledad Lucas MD [address] [address] 12/16/2024 10:40 AM CDT [facility] [address] [facility] [place] [address] Ramsey Oakley MD [address] [facility] [address] [place] [address] documented as of this encounter Visit Diagnoses Diagnosis Cervical radiculopathy- Primary Brachial neuritis or radiculitis nos Cervical pain (neck) Cervicalgia documented in this encounter Additional Health Concerns Assessment Noted Time PHQ-9 Depression Total Score: 1 09/29/19 10:03 AM WAREHOUSE AND RECEIVING SUPERVISOR documented as of this encounter Care Teams Template Fitter Relationship Specialty Start Date End Date Soledad Lcuas MD [address] [place] [address] PCP - General INTERNAL MEDICINE 09/29/21 documented as of this encounter
--- OUTSIDE RECORDS SUMMARY | 2024-08-03 03:23 | XMS_ITS | Encounter Summary ---
Author Organization [facility] Address [address] [place] [address]. [address] [address] Care Team Providers Care Memory Care Director Name Role Phone Soledad Lucas MD Primary Care Provider [phone] Reason for Visit * Reason Onset Date Comments Appointment Request 01/08/2024 Referral 01/08/2024 Encounter Details Date Type Department Care Team (Late st Contact Info) Description 01/08/2024 Telephone [facility] Multispecialty Care - [place] [address] [address] [place] [address] Soledad Lucas MD [address] [place] [address] [address] [place], [place] [phone] Appointment Request; Referral Social History Tobacco Use Types Packs/Day [...] Soledad Lucas MD - 01/08/2024 4:44 PM CDT I called and later spoke to patient and patient reports pain is mainly in the right shoulder and not in the neck region. He is having difficulty raising the right shoulder joint. I will addend the diagnosis code and send back to orthopedics thanks. * Jatin Telma Cortez - 01/08/2024 4:31 PM CDT I called pt today and LVM to schedule a f/u appt with Isabel, regarding his neck pain. documented in this encounter Plan of Treatment Upcoming Encounters Date Type Department Care Team (Late st Contact Info) Description 08/19/2024 9:00 AM SECTION CREWS ACTIVITIES CLERK [facility] [place] [address] [address] [place] [address] Soledad Lucas MD [address] [place] [address] 12/16/2024 10:40 AM CDT [facility] [address] [facility] [place] [address] Ramsey Oakley MD [address] [facility] [address] [place] [address] documented as of this encounter Visit Diagnoses Not on filedocumented in this encounter Additional Health Concerns Assessment Noted Time PHQ-9 Depression Total Score: 1 09/29/19 10:03 AM SECTION CREWS ACTIVITIES CLERK documented as of this encounter Care Teams Memory Care Director Relationship Specialty Start Date End Date Soledad Lucas MD [address] [place] [address] PCP - General INTERNAL MEDICINE 09/29/21 documented as of this encounter
--- OUTSIDE RECORDS SUMMARY | 2024-08-03 03:23 | XMS_ITS | Encounter Summary ---
Author Organization [facility] Address [address] [place] [address]. [place], [place] [address] [place] [address] Care Team Providers Care Body Former Name Role Phone Soledad Lucas MD Primary Care Provider [phone] Reason for Visit * Reason Onset Date Comments Called To Cancel Office Appt. 02/27/2024 Encounter Details Date Type Department Care Team (Late st Contact Info) Description 02/27/2024 Telephone Health system Physical Therapy [address] [place] [address] Daniela Whyte, [place] [address] Called To Cancel Office Appt. Social History Tobacco Use Types Packs/Day Years [...] Progress Notes * Daniela Whyte, PT - 02/27/2024 3:56 PM CDT The patient did not show for appointment today. Attempted to contact the patient but it went to [place]. Mailbox full so could not leave a message. As per our attendance policy, If the patient fails to call or make it to his next appointment, all subsequent appointments will be cancelled as this is his second no show. documented in this encounter Plan of Treatment Upcoming Encounters Date Type Department Care Team (Late st Contact Info) Description 08/19/2024 9:00 AM WIRE TESTER [facility] - [place] [address] [address] [address] [place] [address] Soledad Lucas MD [address] [place] [address] 12/16/2024 10:40 AM CDT Office Visit [facility] [address] [facility] [place] [address] Ramsey Oakley MD [address] [facility] [address] [place] [address] documented as of this encounter Visit Diagnoses Not on filedocumented in this encounter Additional Health Concerns Assessment Noted Time PHQ-9 Depression Total Score: 1 09/29/19 22 10:03 AM WIRE TESTER documented as of this encounter Care Teams Body Former Relationship Specialty [place] [address] [place] [address] PCP - General INTERNAL MEDICINE 09/29/21 documented as of this encounter
--- OUTSIDE RECORDS SUMMARY | 2024-08-03 03:23 | XMS_ITS | Encounter Summary ---
Author Organization [facility] Address [address] [place] [address]. [place], [place] [id number] [place] [address] Care Team Providers Care Filing Writer Name Role Phone Soledad Lucas MD Primary Care Provider [phone] Reason for Visit * Reason Onset Date Comments Follow Up Call 09/24/2023 Encounter Details Date Type Department Care Team (Late st Contact Info) Description 09/24/2023 Telephone [facility] Multispecialty Care - [place] [address] [address] [address] [place] [address] Soledad Lucas MD [address] [place] [address] [address] [place] [address] Follow Up Call Social History [...] encounter Progress Notes * Koko Brand - 10/03/2023 2:43 PM CST Patient seen on 10/02/23. IAL SERVICES COORDINATOR * Jatin Cortez - 09/28/2023 7:40 AM CST Pt called today and stated that he is still having numbness and pain in his right arm down to two of his fingers and still having breathing problems, so I made him an appt for Monday. IAL SERVICES COORDINATOR * Soledad Lucas MD - 09/24/2023 10:41 PM CST Patient again admitted to the ER for asthma exacerbation. Please schedule for an ER follow up visitthanks. IAL SERVICES COORDINATOR documented in this encounter Plan of Treatment Upcoming Encounters Date Type Department Care Team (Late st Contact Info) Description 08/19/2024 9:00 AM SPECIAL SERVICES COORDINATOR Office Visit [facility]pecialty Care - [address] [place] [address] Soledad Lucas MD [address] [place] [address] [address] [place] [address] 12/16/2024 10:40 AM CDT Office Visit [facility] Care - [facility] 3 [facility] [place] [address] Ramsey Oakley MD 3 [facility] [address] [place] [address] documented as of this encounter Visit Diagnoses Not on filedocumented in this encounter Additional Health Concerns Infection Onset Date Last Indicated Resolved Time COVID-19 Rule Out 09/24/2023 09/24/2023 09/24/2023 3:59 PM SPECIAL SERVICES COORDINATOR Assessment Noted Time PHQ-9 Depression Total Score: 1 09/29/19 10:03 AM SPECIAL SERVICES COORDINATOR documented as of this encounter Care Teams Filing Writer Relationship Specialty Start Date End Date Soledad Lucas MD [address] [address] PCP - General INTERNAL MEDICINE 09/29/21 documented as of this encounter
--- OUTSIDE RECORDS SUMMARY | 2024-08-03 03:23 | XMS_ITS | Encounter Summary ---
Author Organization [facility] Address [address] [place] [address]. [address] [address] Care Team Providers Care Material Handling Supervisor Name Role Phone Soledad Lucas MD Primary Care Provider [phone] Reason for Referral * Physical Medicine (Routine) - Closed Specialty Diagnoses / Procedures Referred By Prasanth santillan Referred To Contact PHYSICAL THERAPY / [facility] Physical Therapy Diagnoses Cervical radiculopathy Procedures OFFICE/OUTPATIENT NEW LOW MDM 30-44 MINUTES OFFICE/OUTPT VISIT,NEW,LEVL IV OFFICE/OUTPT VISIT,NEW,LEVL V OFFICE/OUTPT VISIT,EST,LEVL III OFFICE/OUTPT VISIT,EST,LEVL IV OFFICE/OUTPT VISIT,EST,LEVL V Isabel Adair NP [address] [place] [address] Phone: tel: fax: [facility] Physical Therapy [address] [place] [address] Phone: tel: fax: Referral ID Status Reason Start Date Expiration Date V isits Requested Visits Authorized [id number] Closed Physical Therapy 01/17/2024 02/15/2025 1 1 Scheduling Instructions Neck pain, right arm and right elbow pain * Surgical (Routine) - New Request Specialty Diagnoses / Procedures Referred By Contact Referred To Contact HAND SURGERY / ORTHOPAEDICS Diagnoses Cervical radiculopathy Osteoarthritis of carpometacarpal (CMC) joints of both thumbs, unspecified osteoarthritis type Procedures OFFICE/OUTPATIENT NEW LOW MDM 30-44 MINUTES OFFICE/OUTPT VISIT,NEW,LEVL IV OFFICE/OUTPT VISIT,NEW,LEVL V OFFICE/OUTPT VISIT,EST,LEVL III OFFICE/OUTPT VISIT,EST,LEVL IV OFFICE/OUTPT VISIT,EST,LEVL V Isabel Adair NP [address] [facility] [address] [place] [address] Phone: tel:[phone] fax:[phone] Robby Loja MD [address] [place] [address] Phone: tel:[phone] fax:[phone] Referral ID Status Reason Start Date Expiration Date V isits Requested Visits Authorized [id number] New Request 01/17/2024 02/15/2025 1 1 Scheduling Instructions Consult hand pain - CMC arthritis and pain, considering injections. Encounter Details Date Type Department Care Team (Late st Contact Info) Description 01/17/2024 Orders Only [facility] Medical Group Multispecialty Care - [place] [address] [facility] [address] [place] [address] Isabel Adair NP [address] [facility] [address] [place] [address] Social History Tobacco Use Types Packs/Day Years [...] as of this encounter Progress Notes * Lois Mei MA - 01/17/2024 5:08 PM CDT Medication pending thru epic. Will check back tomorrow to see if I have to go thru covermymeds * Isabel Adair NP - 01/17/2024 4:53 PM CDTSummary: images Called patient and reviewed results of images. Xrays of both hands show advanced CMC arthritis which is where most of his pain is. Arthritis in his neck, MRI was ordered he has not heard back yet. Also states he could only get 7 days of percocet d/t an insurance issue. Agreeable to referral for his hands to consider injection and PT for his neck and right arm. documented in this encounter Plan of Treatment Upcoming Encounters Date Type Department Care Team (Late st Contact Info) Description 08/19/2024 9:00 AM FLUID JET CUTTER OPERATOR Office Visit [facility] Medical [facility] Multispecialty Care - [place] [address] [address] [place] [address] Soledad Lucas MD [address] [place] [address] 12/16/2024 10:40 AM CDT Office Visit [facility] Mult[facility]pecialty Care - [facility] [address] [facility] [place] [id number] Ramsey Oakley MD [address] [facility] [address] [place] [address] Scheduled Referrals Name Type Priority Associated Diagnoses Orde r Schedule Ambulatory referral to Hand Surgery Referral Routine Cervical radiculopathy Osteoarthritis of carpometacarpal (CMC) joints of both thumbs, unspecified osteoarthritis type Ordered: 01/17/2024 Ambulatory referral to Physical Therapy Referral Routine Cervical radiculopathy Ordered: 01/17/2024 documented as of this encounter Visit Diagnoses Diagnosis Cervical radiculopathy- Primary Brachial neuritis or radiculitis nos Osteoarthritis of carpometacarpal (CMC) joints of both thumbs, unspecified osteoarthritis type documented in this encounter Additional Health Concerns Assessment Noted Time PHQ-9 Depression Total Score: 1 09/29/19 22 10:03 AM FLUID JET CUTTER OPERATOR documented as of this encounter Care Teams Material Handling Supervisor Relationship Specialty Start Date End Date Soledad Lucas MD [facility] [address] [address] PCP - General INTERNAL MEDICINE 09/29/21 documented as of this encounter
--- OUTSIDE RECORDS SUMMARY | 2024-08-03 03:23 | XMS_ITS | Encounter Summary ---
Author Organization [facility] Address [address] [place] [address]. [place], [place] [address] [place] [address] Care Team Providers Care Bus Greaser Name Role Phone Soledad Lucas MD Primary Care Provider [phone] Reason for Visit * Reason Onset Date Comments No Show 03/22/2024 Patient no showe d/no called for todays 2:15pm appt Encounter Details Date Type Department Care Team (Late Contact Info) Description 03/22/2024 Telephone [facility] Physical Therapy [address] [facility] [address] [place] [address] Sharon Roldan, ESME No Show (Patient no showed/no called for todays 2:15pm appt) Social History Tobacco Use Types Packs/Day Years [...] (Late Contact Info) Description 08/19/2024 9:00 AM COUNTERPERSON Office Visit [facility] Medical Group Multispecialty Care - [address] [place] [address] Soledad Lucas MD [address] [address] 12/16/2024 10:40 AM CDT Office Visit [facility] Medical Group Multispecialty Care - [facility] 3 [facility] [place] [address] Ramsey Oakley MD [address] [facility] [address] [place] [address] documented as of this encounter Visit Diagnoses Not on filedocumented in this encounter Additional Health Concerns Assessment Noted Time PHQ-9 Depression Total Score: 1 09/29/19 10:03 AM COUNTERPERSON documented as of this encounter Care Teams Bus Greaser Relationship Specialty Start Date End Date Soledad Lucas MD [address] [place] [address] PCP - General INTERNAL MEDICINE 09/29/21 documented as of this encounter
--- OUTSIDE RECORDS SUMMARY | 2024-08-03 03:23 | XMS_ITS | Encounter Summary ---
Author Organization [facility] Address [address] [place] [address]. [address] [address] Care Team Providers Care Parcel Wrapper Name Role Phone Soledad Lucas MD Primary Care Provider [phone] Reason for Referral * Imaging (Routine) - Pending Review Specialty Diagnoses / Procedures Referred By Prasanth santillan Referred To Contact RADIOLOGY Diagnoses Right shoulder pain, unspecified chronicity Cervical radiculopathy Right arm pain Procedures MRI CERV SPINE WO CON MRI CERV SPINE WO CON Angelica Adair, HERO [address] [place] [address] Phone: tel: fax: Referral ID Status Reason Start Date Expiration Date V isits Requested Visits Authorized [id number] Pending Review 01/12/2024 02/10/2025 1 1 * Physical Medicine (Routine) - Closed Specialty Diagnoses / Procedures Referred By Prasanth santillan Referred To Contact PHYSICAL THERAPY / [facility] Physical Therapy Diagnoses Right shoulder pain, unspecified chronicity Cervical radiculopathy Right arm pain Procedures OFFICE/OUTPATIENT NEW LOW MDM 30-44 MINUTES OFFICE/OUTPT VISIT,NEW,LEVL IV OFFICE/OUTPT VISIT,NEW,LEVL V OFFICE/OUTPT VISIT,EST,LEVL III OFFICE/OUTPT VISIT,EST,LEVL IV OFFICE/OUTPT VISIT,EST,LEVL V Angelica Adair, RIPRAP PLACING SUPERVISOR [address] [place] [address] Phone: tel: fax: [facility] Physical Therapy [address] [place] [address] Phone: tel: fax: Referral ID Status Reason Start Date Expiration Date V isits Requested Visits Authorized [id number] Closed Physical Therapy 01/12/2024 04/06/2024 12 12 * - New Request Specialty Diagnoses / Procedures Referred By Contac t Referred To Contact Diagnoses Right shoulder pain, unspecified chronicity Bilateral hand pain Procedures XR HAND RT 3V Angelica Adair NP [address] [facility] [address] [place] [address] Phone: tel: fax: Referral ID Status Reason Start Date Expiration Date V isits Requested Visits Authorized [id number] New Request 01/12/2024 1 1 * - New Request Specialty Diagnoses / Procedures Referred By Contac t Referred To Contact Diagnoses Right shoulder pain, unspecified chronicity Bilateral hand pain Procedures XR HAND LT 3V Angelica Adair NP [address] [facility] [address] [place] [address] Phone: tel: fax: Referral ID Status Reason Start Date Expiration Date V isits Requested Visits Authorized [id number] New Request 01/12/2024 1 1 * Imaging (Routine) - New Request Specialty Diagnoses / Procedures Referred By Contac t Referred To Contact RADIOLOGY Diagnoses Right shoulder pain, unspecified chronicity Cervical radiculopathy Right arm pain Procedures XR CERV SPINE 3V Angelica Adair NP [address] [facility] [address] [place] [address] Phone: tel: fax: Referral ID Status Reason Start Date Expiration Date V isits Requested Visits Authorized [id number] New Request 01/12/2024 01/11/2025 1 1 Reason for Visit * Reason Comments Numbness Patient needs xray o f his shoulder because of right arm numbness Encounter Details Date Type Department Care Team (Late st Contact Info) Description 01/12/2024 8:00 AM CDT Office Visit [facility] Medical Group Multispecialty Care - [place] [address] [place] [address] Angelica Adair NP [address] [place] [address] Numbness (Patient needs xray of his shoulder because of right arm numbness) Social History Tobacco Use Types Packs/Day Years [...] Sign Reading Time Taken Comments Blood Pressure 130/82 01/12/2024 8:44 AM CDT Pulse 71 01/12/2024 8:13 AM CDT Temperature 36.9 ??C (98.4 ??F) 01/12/2024 8:13 AM CD T Respiratory Rate 18 01/12/2024 8:13 AM CDT Oxygen Saturation 98% 01/12/2024 8:13 AM CDT Inhaled Oxygen Concentration - - Weight 105 kg (231 lb 6.4 oz) 01/12/2024 8:13 AM CDT Height 185.4 cm (6' 1 ) 01/12/2024 8:13 AM CDT Body Mass Index 30.53 01/12/2024 8:13 AM CDT documented in this encounter Progress Notes * Angelica Adair NP - 01/12/2024 8:00 AM CDTAddended by: ANGELICA ADAIR on: 01/22/2024 11:45 AM Modules accepted: Orders * Angelica Adair NP - 01/12/2024 8:00 AM CDTSummary: Neck pain Images from the original note were not included. Internal Medicine Outpatient Progress Note CC: neck pain and right arm pain HPI: Juliet Stout is a 62-year-old male who presents with neck pain, headaches, right arm pain and shoulder pain. Fall about 10 years ago landed backward had neck pain and right arm pain following the fall. Had injections at that time and pain improved. Now for the past few months he has neck pain/stiffness, right shoulder, right arm pain to his pinky and ring finger. Has limited extension in his right elbow. Has completed PT a long time ago. Taking Percocet and over the countermedication as needed for pain. Uses Percocet sparingly has not taken for one week. 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 HENT: Negative. Eyes: Negative. Respiratory: Negative. Cardiovascular: Negative. Musculoskeletal: Positive for neck pain and neck stiffness. Right arm pain, right elbow pain Neurological: Negative. Psychiatric/Behavioral: Negative. Past Medical History: Past Medical History: Diagnosis Date Arthritis Hypertension Family History: Family History Problem Relation Name Age of Onset Cancer Mother Prostate Cancer Father Cancer Sister Diabetes Sister Cancer Brother Social History: Social History Tobacco Use Smoking status: Never Passive exposure: Never Smokeless tobacco: Never Tobacco comments: counsled by Dr Lucas Vaping Use Vaping status: Never Used Substance Use Topics Alcohol use: Yes Alcohol/week: 11.7 standard drinks of alcohol Types: 7 Cans of beer per week Comment: Socially Drug use: Yes Types: Marijuana Medications: Outpatient Medications Marked as Taking for the 01/12/24 encounter (Office Visit) with Angelica Adair NP Medication Sig Dispense Refill albuterol sulfate HFA 108 (90 Base) MCG/ACT inhaler Inhale 2 puffs into the lungs every 6 (six) hours as needed for Wheezing. 18 g 5 atorvastatin (LIPITOR) 40 MG tablet Take 1 tablet (40 mg total) by mouth nightly at bedtime. 90 tablet 1 Votulsm-Wwtocdfrhpw-Hzdytetwjk (BREZTRI AEROSPHERE) 160-9-4.8 MCG/ACT Aerosol Inhale 2 [...] 3 Allergies: Review of patient's allergies indicates: Lisinopril ? Objective: Filed Vitals: 01/12/24 0813 01/12/24 0844 BP: (!) 153/89 130/82 Pulse: 71 Resp: 18 Temp: 98.4 ??F (36.9 ??C) TempSrc: Oral SpO2: 98% Weight: 105 kg (231 lb 6.4 oz) Height: 1.854 m (6' 1 ) Body mass index is 30.53 kg/m??. Physical Exam Constitutional: Appearance: Normal appearance. Eyes: Conjunctiva/sclera: Conjunctivae normal. Pulmonary: Effort: Pulmonary effort is normal. Musculoskeletal: Right shoulder: Bony tenderness present. No crepitus. Normal strength. Normal pulse. Right elbow: Deformity present. No tenderness. Right hand: Deformity present. Normal pulse. Left hand: Deformity present. Normal pulse. Cervical back: Tenderness present. No crepitus. Comments: Swelling of both CMC joints (L>R) Skin: General: Skin is warm and dry. Neurological: Mental Status: He is alert. Psychiatric: Mood and Affect: Mood normal. Judgment: Judgment normal. Assessment and Plan: 1. Chronic bilateral low back pain with left-sided sciatica - oxyCODONE-acetaminophen (PERCOCET) 7.5-325 MG tablet; Take 1 tablet by mouth daily as needed for Pain. Indications: Chronic Pain Dispense: 30 tablet; Refill: 0 2. Right shoulder pain, unspecified chronicity - celecoxib (CELEBREX) 100 MG capsule; Take 1 capsule (100 mg total) by mouth 2 (two) times daily. Indications: pt not sure if this is right mg Dispense: 60 capsule; Refill: 2 - oxyCODONE-acetaminophen (PERCOCET) 7.5-325 MG tablet; Take 1 tablet by mouth daily as needed for Pain. Indications: Chronic Pain Dispense: 30 tablet; Refill: 0 - MRI CERV SPINE WO CON; Future - XR CERV SPINE 3V; Future - XR HAND LT 3V; Future - XR HAND RT 3V; Future - XR CERV SPINE 3V 3. Cervical radiculopathy - MRI CERV SPINE WO CON; Future - XR CERV SPINE 3V; Future - XR CERV SPINE 3V 4. Right arm pain - MRI CERV SPINE WO CON; Future - XR CERV SPINE 3V; Future - XR CERV SPINE 3V 5. Bilateral hand pain - XR HAND LT 3V; Future - XR HAND RT 3V; Future Referral sent to neurosurgery for evaluation of neck pain and right arm pain. Consider ortho consult after seeing neurosurgery. Celebrex refilled for pain use that medication first and Percocet sparingly. Order PT. Return to clinic in 1 month as scheduled Tobacco: Counseling given: Not Answered Tobacco comments: counsled by Dr Lucas I personally spent a total of 30 minutes on the day of the encounter. This includes mzqr-ml-hpcl and owk-sfaj-qa-face time I provided on the day of the encounter & excludes time spent performing separately reportable services. Side effects and less common but more severe adverse effects of recommended medical therapies were explained to the patient. Patient reminded to use MyChart or telephone follow up prn if symptoms change, worsen, or persist, or if side effect of treatment is experienced. ANGELICA ADAIR NP 01/12/2024 [facility]. documented in this encounter Plan of Treatment Upcoming Encounters Date Type Department Care Team (Late st Contact Info) Description 08/19/2024 9:00 AM PRESIDENT/GM PRODUCTION & LIVE EXPERIENCES Office Visit [facility] - [place] [address] [address] [address] [place] [address] Soledad Lucas MD [address] [place] [address] 12/16/2024 10:40 AM CDT [facility] [address] [facility] [place] [address] Ramsey Oakley MD [address] [facility] [address] [place] [address] Scheduled Orders Name Type Priority Associated Diagnoses Orde r Schedule XR HAND LT 3V Imaging Routine Right shoulder pain, unspecified chronicity Bilateral hand pain Expected: 01/12/2024, Expires: 01/11/2025 XR HAND RT 3V Imaging Routine Right shoulder pain, unspecified chronicity Bilateral hand pain Expected: 01/12/2024, Expires: 01/11/2025 MRI CERV SPINE WO CON MRI Routine Right shoulder pain, unspecified chronicity Cervical radiculopathy Right arm pain Expected: 01/22/2024, Expires: 01/11/2025 Scheduled Referrals Name Type Priority Associated Diagnoses Orde r Schedule Ambulatory referral to Physical Therapy Referral Routine Right shoulder pain, unspecified chronicity Cervical radiculopathy Right arm pain Ordered: 01/12/2024 documented as of this encounter Procedures Procedure Name Priority Date/Time Associated Diagnosis Comments XR CERV SPINE 3V Routine 01/15/2024 12:00 AM CDT Right shoulder pain, unspecified chronicity Cervical radiculopathy Right arm pain documented in this encounter Results * XR CERV SPINE 3V (01/15/2024 12:00 AM CDT) Anatomical Region Laterality Modality Spine Radiographic Liv ging 01/15/2024 Angelica Adair NP GENERAL IMAGING Final Resul t documented in this encounter Visit Diagnoses Diagnosis Cervical radiculopathy- Primary Brachial neuritis or radiculitis nos Chronic bilateral low back pain with left-sided sciatica Right shoulder pain, unspecified chronicity Right arm pain Pain in limb Bilateral hand pain Pain in limb documented in this encounter Additional Health Concerns Assessment Noted Time PHQ-9 Depression Total Score: 1 09/29/19 22 10:03 AM PRESIDENT/GM PRODUCTION & LIVE EXPERIENCES documented as of this encounter Care Teams Parcel Wrapper Relationship Specialty Start Date End Date Soledad Lucas MD [address] [address] PCP - General INTERNAL MEDICINE 09/29/21 documented as of this encounter
--- OUTSIDE RECORDS SUMMARY | 2024-08-03 03:23 | XMS_ITS | Encounter Summary ---
Author Organization [facility] - [facility] Address [address] [place] [address]. [address] [address] Care Team Providers Care Associate Professor Computer Science Name Role Phone Soledad Lucas MD Primary Care Provider [phone] Reason for Referral * Medication Prior Authorization - Closed Specialty Diagnoses / Procedures Referred By Prasanth santillan Referred To Contact Diagnoses Right shoulder pain, unspecified chronicity Chronic bilateral low back pain [place] [address] [place] [address] Phone: tel: fax: Referral ID Status Reason Start Date Expiration Date Visits Re quested Visits Authorized [id number] Closed 1 1 LE UI DESIGNER Reason for Visit * Reason Onset Date Comments Medication 07/22/2024 Encounter Details Date Type Department Care Team (Late st Contact Info) Description 07/22/2024 Telephone [facility] - [place] [address] [address] [place] [address] [place] [address] [place] [address] Medication Social History Tobacco Use Types [...] st Contact Info) Description 08/19/2024 9:00 AM MOBILE UI DESIGNER Office [facility] [place] [address] [address] [place] [address] Soledad Lucas MD [address] [place] [address] 12/16/2024 10:40 AM CDT [facility] [address] [facility] [place] [address] Ramsey Oakley MD [address] [facility] [address] [place] [address] documented as of this encounter Visit Diagnoses Diagnosis Right shoulder pain, unspecified chronicity Chronic bilateral low back pain with left-sided sciatica documented in this encounter Additional Health Concerns Assessment Noted Time PHQ-9 Depression Total Score: 1 09/29/19 10:03 AM MOBILE UI DESIGNER documented as of this encounter Care Teams Associate Professor Computer Science Relationship Specialty [place] [address] [place] [address] PCP - General INTERNAL MEDICINE 09/29/21 documented as of this encounter
--- OUTSIDE RECORDS SUMMARY | 2024-08-03 03:23 | XMS_ITS | Encounter Summary ---
Author Organization [facility] Address [address] [place] [address]. [place], [place] [address] [place] [address] Care Team Providers Care Digital Strategist Name Role Phone Soledad Lucas MD Primary Care Provider [phone] Encounter Details Date Type Department Care Team (Latest Contact Info) Description 08/25/2023 Travel Social History Tobacco Use Types Packs/Day [...] st Contact Info) Description 08/19/2024 9:00 AM INSTRUMENTAL TEACHER Office Visit [facility] Medical [facility] Mult[facility]pecialty Care - [place] [address] [address] [place] [address] Soledad Lucas MD [address] [place] [address] [address] [place] [address] 12/16/2024 10:40 AM CDT Office Visit [facility] Mult[facility]pec[facility]ty [address] [place] [address] Ramsey Oakley MD [address] [facility] [place] [address] documented as of this encounter Visit Diagnoses Not on filedocumented in this encounter Additional Health Concerns Assessment Noted Time PHQ-9 Depression Total Score: 1 09/29/19 22 10:03 AM INSTRUMENTAL TEACHER documented as of this encounter Care Teams Digital Strategist Relationship Specialty Start Date End Date Soledad Lucas MD [address] [address] PCP - General INTERNAL MEDICINE 09/29/21 documented as of this encounter
--- OUTSIDE RECORDS SUMMARY | 2024-08-03 03:23 | XMS_ITS | Encounter Summary ---
Author Organization [facility] Address [address] [place] [address]. 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 [facility] [address] [address] [place], [place] [id number] Soledad Lucas MD [address] [place] [address] [address] [place] [address] 12/16/2024 10:40 AM CDT Office Visit [facility] - [facility] [address] [facility] [place] [address] Ramsey Oakley MD [address] [facility] [address] [place] [address] documented as of this encounter Visit Diagnoses Diagnosis Chronic bilateral low back pain with left-sided sciatica Cervical radiculopathy Brachial neuritis or radiculitis nos documented in this encounter Additional Health Concerns Assessment Noted Time PHQ-9 Depression Total Score: 1 09/29/19 10:03 AM 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
--- OUTSIDE RECORDS SUMMARY | 2024-08-03 03:23 | XMS_ITS | Encounter Summary ---
Author Organization [facility] Address [address] [place] [address]. [place], [place] [id number] [place] [id number] Care Team Providers Care [employer] Name Role Phone Soledad Lucas MD Primary Care Provider [phone] Reason for Visit * Reason Comments Shortness Of Breath Encounter Details Date Type Department Care Team (Late st Contact Info) Description 09/24/2023 10:34 AM SENIOR LIVING ADVISOR - 09/24/2023 12:40 PM [facility] Emergency [facility] Emergency [place], [place] [address] Gamal Cisneros, HERO [address] [place] [address] [id number] Shortness Of Breath Discharge Disposition: Home or Self Care (Routine [...] Sign Reading Time Taken Comments Blood Pressure 184/98 09/24/2023 10:17 AM SENIOR LIVING ADVISOR Pulse 88 09/24/2023 10:17 AM SENIOR LIVING ADVISOR Temperature 35.9 ??C (96.6 ??F) 09/24/2023 10:[address] Respiratory Rate 22 09/24/2023 10:17 AM SENIOR LIVING ADVISOR Oxygen Saturation 98% 09/24/2023 10:17 AM SENIOR LIVING ADVISOR Inhaled Oxygen Concentration - - Weight 102.1 kg (225 lb) 09/24/2023 10:17 AM SENIOR LIVING ADVISOR Height 185.4 cm (6' 1 ) 09/24/2023 10:17 AM SENIOR LIVING ADVISOR Body Mass Index 29.69 09/24/2023 10:17 AM SENIOR LIVING ADVISOR documented in this encounter Discharge Instructions * Attachments The following attachments cannot be sent through Care Everywhere. * Asthma Discharge Instructions, Adult (Greek) documented in this encounter Medications at Time of Discharge NEBULIZER DEVICE, DME,Indications:Mod erate persistent asthma with acute exacerbation (HHS/HCC),Acute bronchitis, unspecified organism Take 1 Device by nebulization every 6 (six) hours as needed. Use for asthma attack. 1 Device 2 albuterol sulfate HFA 108 (90 Base) MCG/ACT inhalerIndications: Mild intermittent asthma with acute exacerbation (HHS/HCC) Inhale 2 puffs into the lungs every 6 (six) hours as needed for Wheezing. 18 g 5 4 03/13/20 24 atorvastatin (LIPITOR) 40 MG tabletIndications:M ixed hyperlipidemia Take 1 tablet (40 mg total) by mouth nightly at bedtime. 90 tablet 1 4 03/13/20 24 azithromycin (ZITHROMAX Z-ABBE) 250 MG tablet Take 2 tablets on day 1. Take 1 tablet each day for remaining 4 days. 6 tablet 4 09/29/19 24 benzonatate (TESSALON PERLES) 100 MG capsule Take 1 capsule (100 mg total) by mouth 3 (three) times daily as needed for Cough. 20 capsule 4 10/01/19 24 celecoxib (CELEBREX) 100 MG capsuleIndications: pt not sure if this is right mg Take 1 capsule (100 mg total) by mouth 2 (two) times daily. Indications: pt not sure if this is right mg 01/12/20 24 fluticasone furoate-vilanterol (BREO ELLIPTA) 200-25 MCG/ACT inhalerIndications: Mild intermittent asthma with acute exacerbation (HHS/HCC) Inhale 1 puff into the lungs daily. 60 each 6 4 10/02/19 24 gabapentin (NEURONTIN) 400 MG capsuleIndications: pt not sure of mg Take 1 capsule (400 mg total) by mouth 3 (three) times daily. Indications: pt not sure of mg 03/13/20 24 ipratropium-albuter ol (DUONEB) 0.5-2.5 (3) MG/3ML SolutionIndications :Mild intermittent asthma with acute exacerbation (HHS/HCC) Take 3 mLs by nebulization every 6 (six) hours as needed. 360 mL 11 4 03/13/20 24 losartan (COZAAR) 25 MG tabletIndications:P rimary hypertension Take 1 tablet (25 mg total) by mouth daily. 90 tablet 1 4 03/13/20 24 oxyCODONE-acetamino phen (PERCOCET) 7.5-325 MG tabletIndications:C hronic Pain Take 1 tablet by mouth daily as needed for Pain. Indications: Chronic Pain 30 tablet 4 11/06/19 24 predniSONE (DELTASONE) 20 MG tablet Take 2 tablets (40 mg total) by mouth daily for 5 days. 10 tablet 4 09/29/19 24 vitamin D2, ergocalciferol, (DRISDOL) 1.25 mg capsuleIndications: Vitamin D deficiency Take 1 capsule (50,000 Units total) by mouth every 7 days. 12 capsule 3 4 03/13/20 24 documented as of this encounter ED Notes * Estefania Oakley RN - 09/24/2023 12:40 PM CST Provider discussed today's findings with the patient. The patient has been given information regarding their treatment, follow up and concerning symptoms for which they should seek urgent or emergentattention. I have expressed the the importance of seeking attention should there be any new, or worsening symptoms or persistence of their condition. Patient verbalized understanding of the dischargeinstructions. 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 He reports hx of asthma and having a cough intermittently from last week. Bilateral wheezing throughout. Denies any pain. OR LIVING ADVISOR * Gamal Cisneros NP - 09/24/2023 10:20 AM CST [place], [place] ER/CC Encounter Chief Complaint Chief Complaint Patient presents with Shortness Of Breath History of Present Illness Patient ambulatory to the emergency room with complaints of shortness of breath. Patient states that he has a history of asthma and feels like he is having asthma exacerbation. Patient states that hehas been having trouble with weather change and states that he feels that he is wheezing. Patient states that he has been using rescue inhaler and neb treatments at home with little relief. Patient does report cough and states that cough is productive. He also states that he feels like he has a tickle in the back of his throat. He is unaware of any known sick contacts. Patient denies any fever, nausea, vomiting, diarrhea. Patient's had no chest pain or palpitations. Shortness Of Breath Associated symptoms include wheezing. Pertinent negatives include no chest pain. Medical History ALLERGIES: Review of patient's allergies indicates: Allergen Reactions Lisinopril Swelling Swollen lips MEDICATIONS: Prior to Admission medications Medication Sig Start Date End Date Taking? Authorizing Provider azithromycin (ZITHROMAX Z-ABBE) 250 MG tablet Take 2 tablets on day 1. Take 1 tablet each day for remaining 4 days. 09/24/23 09/29/23 Yes Gamal Cisneros NP predniSONE (DELTASONE) 20 MG tablet Take 2 tablets (40 mg total) by mouth daily for 5 days. Yes Gamal Cisneros NP albuterol sulfate HFA 108 (90 Base) MCG/ACT inhaler Inhale 2 puffs into the lungs every 6 (six) hours as needed for Wheezing. 08/16/23 Soledad Lucas MD atorvastatin (LIPITOR) 40 MG tablet Take 1 tablet (40 mg total) by mouth nightly at bedtime. 08/17/23 Soledad Lucas MD celecoxib (CELEBREX) 100 MG capsule Take 1 capsule (100 mg total) by mouth 2 (two) times daily. Indications: pt not sure if this is right mg Default History Genericprovider fluticasone furoate-vilanterol (BREO ELLIPTA) 200-25 MCG/ACT inhaler Inhale 1 puff into the lungs daily. 08/16/23 Soledad Lucas MD gabapentin (NEURONTIN) 400 MG capsule Take 1 capsule (400 mg total) by mouth 3 (three) times daily.Indications: pt not sure of mg Default History Genericprovider ipratropium-albuterol (DUONEB) 0.5-2.5 (3) MG/3ML Solution Take 3 mLs by nebulization every 6 (six)hours as needed. 08/16/23 Soledad Lucas MD losartan (COZAAR) 25 MG tablet Take 1 tablet (25 mg total) by mouth daily. 08/16/23 Soledad Lucas MD NEBULIZER DEVICE, DME, Take 1 Device by nebulization every 6 (six) hours as needed. Use for asthma attack. 06/13/22 Soledad Lucas MD oxyCODONE-acetaminophen (PERCOCET) 7.5-325 MG tablet Take 1 tablet by mouth daily as needed for Pain. Indications: Chronic Pain 08/16/23 Soledad Lucas MD vitamin D2, ergocalciferol, (DRISDOL) 1.25 mg capsule Take 1 capsule (50,000 Units total) by mouth every 7 days. 08/16/23 Soledad Lucas MD PAST MEDICAL HISTORY: Past Medical History: Diagnosis Date Arthritis Hypertension PAST SURGICAL HISTORY: Past Surgical History: Procedure Laterality Date KNEE ARTHROSCOPY Right KNEE SURGERY Right Unsure of exactly what they did to patella. FAMILY HISTORY: Family History Problem Relation Name Age of Onset Cancer Mother Prostate Cancer Father Cancer Sister Diabetes Sister Cancer Brother SOCIAL HISTORY: Social History Tobacco Use Smoking status: Never Passive exposure: Never Smokeless tobacco: Never Tobacco comments: counsled by Dr Lucas Vaping Use Vaping Use: Never used Substance Use Topics Alcohol use: Yes Alcohol/week: 11.7 standard drinks of alcohol Types: 7 Cans of beer per week Comment: Socially Drug use: Yes Types: Marijuana Review of Systems Review of Systems Constitutional: Negative. HENT: Positive for congestion. Eyes: Negative. Respiratory: Positive for cough, shortness of breath and wheezing. Negative for apnea, choking, chest tightness and stridor. Cardiovascular: Negative for chest pain and palpitations. Gastrointestinal: Negative. Endocrine: Negative. Genitourinary: Negative. Musculoskeletal: Negative. Skin: Negative. Allergic/Immunologic: Negative. Neurological: Negative. Hematological: Negative. Psychiatric/Behavioral: Negative. Physical Exam Filed Vitals: 09/24/23 1017 BP: (!) 184/98 Pulse: 88 Resp: 22 Temp: 96.6 ??F (35.9 ??C) TempSrc: Temporal SpO2: 98% Weight: 102.1 kg (225 lb) Height: 1.854 m (6' 1 ) Physical Exam Vitals and nursing note reviewed. Constitutional: General: He is not in acute distress. Appearance: Normal appearance. He is not ill-appearing or toxic-appearing. HENT: Head: Normocephalic and atraumatic. Right Ear: External ear normal. Left Ear: External ear normal. Nose: Nose normal. Mouth/Throat: Mouth: Mucous membranes are moist. Eyes: Extraocular Movements: Extraocular movements intact. Pupils: Pupils are equal, round, and reactive to light. Cardiovascular: Rate and Rhythm: Normal rate. Heart sounds: No murmur heard. Pulmonary: Effort: Pulmonary effort is normal. No respiratory distress. Breath sounds: No stridor. Wheezing present. No rhonchi. Chest: Chest wall: No tenderness. Abdominal: General: There is no distension. Palpations: Abdomen is soft. Musculoskeletal: General: No swelling or tenderness. Normal range of motion. Cervical back: Normal range of motion and neck supple. Skin: General: Skin is warm and dry. Capillary Refill: Capillary refill takes less than 2 seconds. Neurological: General: No focal deficit present. Mental Status: He is alert and oriented to person, place, and time. Psychiatric: Mood and Affect: Mood normal. Behavior: Behavior normal. Diagnostic Studies / Procedures ELECTROCARDIOGRAMS: Results for orders placed or performed during the hospital encounter of 09/24/23 [address] Test Date: 2023-09-24 Pat Name: JULIET GRIMM Department: 41 Room: Gender: Male Student Development Coordinator: : 1961-08-14 Requested By: GAMAL CISNEROS Order Number: [id number] Reading MD: Measurements Intervals [place] Rate: 74 P: 69 AK: 207 QRS: 59 QRSD: 73 T: 69 QT: 354 QTc: 394 Interpretive Statements SINUS RHYTHM No previous ECG available for comparison LABORATORY STUDIES: No results found for this visit on 09/24/23. IMAGING STUDIES XR CHEST PA+LAT Final Result by User, [id number] (09/24 1126) Procedure(s): XR CHEST PA+LAT Date of service: 09/24/2023 11:04 AM Provided clinical information: 62 years, Male, shortness of breath Procedure and materials: PA and lateral Comparison studies: August 04, 2010. Observations: Cardiac silhouette is within normal limits. The lungs are expanded and clear of any consolidations. No effusions. IMPRESSION: No acute cardiopulmonary abnormality. Referred By: Interpreted By: Lauro Beach MD, 09/24/2023 11:25 AM ED Course / Medical Decision Making MDM Number of Diagnoses or Management Options Diagnosis management comments: I have spoken to the patient about his signs and symptoms. Patient will receive serum lab work, chest x-ray, DuoNeb, corticosteroids. Patient will also be tested for COVID-19, influenza and strep. Patient is negative for COVID-19, influenza and strep. Patient states that he is feeling much better after albuterol treatment and corticosteroids. Patient states that he is much more comfortable andwould like to be discharged. Patient's lung sounds improved. Patient does have very mild end expiratory wheeze on the base of the right lung. Patient's lung sounds are markedly improved. Patient's serum lab work negative for leukocytosis. Patient's chest x- ray is negative for acute intrathoracic process. Patient signs and symptoms likely due to asthma exacerbation. Amount and/or Complexity of Data Reviewed Clinical lab tests: reviewed Tests in the radiology section of CPT??: reviewed Risk of Complications, Morbidity, and/or Mortality Presenting problems: moderate Diagnostic procedures: moderate Management options: low Patient Progress Patient progress: stable Medications methylPREDNISolone sodium succinate (SOLU-Medrol) injection 125 mg (125 mg Intravenous Given 09/24/23 1134) ipratropium-albuterol (DUONEB) 0.5-2.5 (3) MG/3ML nebulizer solution 3 mL (3 mLs Nebulization Given09/24/23 1136) Clinical Impression Asthma exacerbation (HHS/HCC) (Primary) Current Discharge Medication List START taking these medications Details azithromycin (ZITHROMAX Z-ABBE) 250 MG tablet Take 2 tablets on day 1. Take 1 tablet each day for remaining 4 days. Qty: 6 tablet, Refills: 0 Class: SpineVisioncribe Pharmacy: [id number] [place] [address] [place] [facility] [address] (Ph #: [phone]) predniSONE (DELTASONE) 20 MG tablet Take 2 tablets (40 mg total) by mouth daily for 5 days. Qty: 10 tablet, Refills: 0 Class: Eprescribe Pharmacy: [facility] #[id number] - [place] [id number] [place] [facility] [address] (Ph #: [phone]) Disposition: Discharge Follow-Up: Soledad Lucas MD [address] [place] [address] [phone] In 3 days As needed Gamal Cisneros NP 09/24/2023 Gamal Cisneros NP 09/24/23 1220 Cosigned by Juan Francisco Sanderson MD at 09/24/2023 12:41 PM SENIOR LIVING ADVISOR OR LIVING ADVISOR OR LIVING ADVISOR documented in this encounter Plan of Treatment Upcoming Encounters Date Type Department Care Team (Late st Contact Info) Description 08/19/2024 9:00 AM SENIOR LIVING ADVISOR Office Visit [facility] - [place] [address] [address] [place], [place] [phone] Soledad Lucas MD [facility] [phone] 12/16/2024 10:40 AM CDT Office Visit [facility] - [facility] [address] [facility] [place] [id number] Ramsey Oakley MD [address] [facility] [address] [place] [address] documented as of this encounter Procedures Procedure Name Priority Date/Time Associated Diagnosis Comments XR CHEST PA+LAT STAT 09/24/2023 11:24 AM SENIOR LIVING ADVISOR CORONAVIRUS (COVID 19) STAT 10:57 AM SENIOR LIVING ADVISOR RAPID STREP A STAT 09/24/2023 10:57 AM SENIOR LIVING ADVISOR INFLUENZA A & B STAT 09/24/2023 10:57 AM SENIOR LIVING ADVISOR ECG 12-LEAD Routine 09/24/2023 10:42 AM SENIOR LIVING ADVISOR COMPREHENSIVE METABOLIC PANEL STAT 09/24/2023 10:38 AM SENIOR LIVING ADVISOR CBC W/DIFF AUTOMATED STAT 09/24/2023 10:38 AM SENIOR LIVING ADVISOR documented in this encounter Results * XR CHEST PA+LAT (09/24/2023 11:24 AM SENIOR LIVING ADVISOR) Anatomical Region Laterality Modality Chest Radiographic Liv ging 09/24/2023 11:2 5 AM SENIOR LIVING ADVISOR Impressions 09/24/2023 11:26 AM SENIOR LIVING ADVISOR IMPRESSION: No acute cardiopulmonary abnormality. Referred By: ?? Interpreted By: Lauro Beach MD, 09/24/2023 11:25 AM Narrative 09/24/2023 11:26 AM SENIOR LIVING ADVISOR Procedure(s): XR CHEST PA+LAT Date of service: 09/24/2023 11:04 AM Provided clinical information: 62 years, Male, shortness of breath Procedure and materials: PA and lateral Comparison studies: August 04, 2010. Observations: ?? Cardiac silhouette is within normal limits. ??The lungs are expanded and clear of any consolidations. ??No effusions. Procedure Note Lauro Beach MD - 09/24/2023 Procedure(s): XR CHEST PA+LAT Date of service: 09/24/2023 11:04 AM Provided clinical information: 62 years, Male, shortness of breath Procedure and materials: PA and lateral Comparison studies: August 04, 2010. Observations: Cardiac silhouette is within normal limits. The lungs are expanded andclear of any consolidations. No effusions. IMPRESSION: No acute cardiopulmonary abnormality. Referred By: Interpreted By: Lauro Beach MD, 09/24/2023 11:25 AM us Gamal Cisneros NP GENERAL IMAGING Final Result * RAPID STREP A (09/24/2023 10:57 AM SENIOR LIVING ADVISOR) SPECIMEN TYPE THROAT 09/24/2023 12:32 PM SENIOR LIVING ADVISOR [facility] RAPID STREP TEST NEGATIVE NEGATIVE 09/24/2023 3:59 PM SENIOR LIVING ADVISOR [facility] STRUCTURE OF ANTERIOR PORTION OF NECK / Unknown 09/24/2023 10:57 AM SENIOR LIVING ADVISOR Gamal Cisneros NP MICROBIOLOGY - GENERAL ORDERAB LES Final Result [facility] [address] [place] [address], * INFLUENZA A & B (09/24/2023 10:57 AM SENIOR LIVING ADVISOR) SPECIMEN TYPE UNKNOWN 09/24/2023 3:19 PM SENIOR LIVING ADVISOR [facility] INFLUENZA A NEGATIVE NEGATIVE 09/24/2023 3:59 PM SENIOR LIVING ADVISOR [facility] INFLUENZA B NEGATIVE NEGATIVE 09/24/2023 3:59 PM SENIOR LIVING ADVISOR [facility] Comment: Interpretation: Negative for Influenza A and B. A negative result does not exclude influenza virus infection. If influenza is circulating in your community, a diagnosis of influenza should be considered based on a patient's clinical presentation and empiric antiviral treatment should be considered, if indicated. If more conclusive testing is needed for hospitalized inpatients, follow-up confirmatory testing with RT-PCR requires a separate order. NASOPHARYNGEAL SWAB / Unknown 09/24/2023 10:57 AM SENIOR LIVING ADVISOR us Gamal Cisneros NP MICROBIOLOGY - GENERAL ORDERAB LES Final Result Performing Organization Address City/[facility] Co de Phone Number [facility] [address] [place] [address], * CORONAVIRUS (COVID 19) (09/24/2023 10:57 AM SENIOR LIVING ADVISOR) CORONAVIRUS SARS COV 2 RNA NEGATIVE NEGATIVE 09/24/2023 3:59 PM SENIOR LIVING ADVISOR [facility] Comment: NEGATIVE RESULTS DO NOT RULE OUT COVID 19 AND SHOULD NOT BE USED THE SOLE BASIS FOR TREATMENT OR PATIENT MANAGEMENT DECISIONS, INCLUDING INFECTION CONTROL DECISIONS. NEGATIVE RESULTS SHOULD BE CONSIDERED IN THE CONTEXT OF A PATIENT'S RECENT EXPOSURES, HISTORY AND THE PRESENCE OF CLINICAL SIGNS AND SYMPTOMS CONSISTENT WITH COVID 19. THE ID NOW COVID-19 2.0 TEST HAS BEEN AUTHORIZED BY THE FDA UNDER EAU FOR USE BY AUTHORIZED LABORATORIES. PERFORMED BY NUCLEIC ACID AMPLIFICATION FOR MOLECULAR QUALITATIVE DETECTION OF SARS-COV-2. SPECIMEN TYPE NASAL 09/24/2023 12:32 PM SENIOR LIVING ADVISOR [facility] NASAL STRUCTURE / Unknown 09/24/2023 10:57 AM SENIOR LIVING ADVISOR us Gamal Cisneros NP MICROBIOLOGY - GENERAL ORDERAB LES Final Result Performing Organization Address City/[facility]/ZIP Co de Phone Number [facility] [address] [place] [address], * ECG 12 lead (09/24/2023 10:42 AM SENIOR LIVING ADVISOR) 09/24/2023 10:4 2 AM SENIOR LIVING ADVISOR Narrative [facility] - 09/24/2023 12:34 PM SENIOR LIVING ADVISOR ?[facility] ? [address] [place] ? Test Date: ?2023-09-24 Pat Name: ? JULIET GRIMM ? Department: ?? 41 ? Room: ? EMS1 Gender: ? Male ? Student Development Coordinator: ?? : ?1961-08-14 ? Requested By: GAMAL CISNEROS Order Number: [id number] ? Reading MD: ?? Melvin Baum ? Measurements Intervals ?[place] ? Rate: ? 74 ? P: ?69 AK: ? 207 ?QRS: ?59 QRSD: ? 73 ? T: ?69 QT: ? 354 ? QTc: ?394 ? Interpretive Statements SINUS RHYTHM First Degree AV Block No previous ECG available for comparison OR LIVING ADVISOR Procedure Note Melvin Baum MD - 09/24/[address] Test Date: 2023-09-24 Pat Name: JULIET GRIMM Department: 41 Room: [facility] Gender: Male Student Development Coordinator: : 1961-08-14 Requested By: GAMAL CISNEROS Order Number: [id number] Reading MD: Melvin Baum Measurements Intervals [place] Rate: 74 P: 69 AK: 207 QRS: 59 QRSD: 73 T: 69 QT: 354 QTc: 394 Interpretive Statements SINUS RHYTHM First Degree AV Block No previous ECG available for comparison OR LIVING ADVISOR us Gamal Cisneros [employer] ECG ORDERABLES Final Result [facility] * (ABNORMAL) COMPREHENSIVE METABOLIC PANEL (09/24/2023 10:38 AM SENIOR LIVING ADVISOR) [facility] Signature GLUCOSE 113(H) 70 - 99 MG/DL 09/24/2023 9:30 PM SENIOR LIVING ADVISOR [facility] BUN 12 7 - 18 MG/DL 09/24/2023 9:30 PM SENIOR LIVING ADVISOR [facility] CREATININE S/P/B 0.95 0.7 - 1.3 MG/DL 09/24/2023 9:30 PM [facility] SODIUM S/P/B 136 136 - 145 MMOL/L 09/24/2023 9:30 PM [facility] POTASSIUM S/P/B 3.9 3.5 - 5.1 MMOL/L 09/24/2023 9:30 PM [facility] CHLORIDE S/P/B 108 100 - 108 MMOL/L 09/24/2023 9:30 PM [facility] CO2 27.8 21 - 32 MMOL/L 09/24/2023 9:30 PM [facility] CALCIUM S/P/B 9.1 8.5 - 10.1 MG/DL 09/24/2023 9:30 PM [facility] BILIRUBIN TOTAL S/P/B 1.0 0.2 - 1.2 MG/DL 09/24/2023 9:30 PM [facility] Comment: THIS ASSAY IS NOT RECOMMENDED FOR PATIENTS UNDERGOING TREATMENT WITH ELTROMBOPAG DUE TO THE POTENTIAL FOR FALSELY ELEVATED RESULTS. TOTAL PROTEIN S/P/B 7.7 6.4 - 8.2 G/DL 09/24/2023 9:30 PM [facility] ALBUMIN S/P/B 3.8 3.4 - 5.0 G/DL 09/24/2023 9:30 PM [facility] AST 15 15 - 37 U/L 09/24/2023 9:30 PM [facility] ALT 23 16 - 60 U/L 09/24/2023 9:30 PM [facility] ALKALINE PHOSPHATASE S/P/B 98 50 - 136 U/L 09/24/2023 9:30 PM [facility] ANION GAP 0.2(L) 5 - 15 MMOL/L 09/24/2023 9:30 PM [facility] BUN CREATININE RATIO 12.6 6 - 26 09/24/2023 9:30 PM [facility] A/G RATIO 1.0 1.0 - 2.0 RATIO 09/24/2023 9:30 PM [facility] GFR ESTIMATE 89(L) >90 ML/MIN/1.7 3 M2 09/24/2023 9:30 PM [facility] Comment: NOTE: eGFR is not calculated for patients <18 years of age. This is an estimated GFR calculation using the new CKD EPI creatinine equation without race and so does not require a correction factor for race. This estimated GFR should not be used for calculating drug doses. 09/24/2023 10:3 8 AM SENIOR LIVING ADVISOR Gamal Cisneros NP LABORATORY Final Result [facility] [address] [place] [address], [place] [phone] * (ABNORMAL) CBC W/DIFF AUTOMATED (09/24/2023 10:38 AM SENIOR LIVING ADVISOR) WBC 6.4 4.5 - 11.0 x10'3/uL 09/24/2023 3:04 PM [facility] RBC 5.23 4.70 - 6.10 x10'6/uL 09/24/2023 3:04 PM [facility] HGB 14.4 14.0 - 18.0 G/DL 09/24/2023 3:04 PM [facility] HCT 44.5 43.0 - 54.0 % 09/24/2023 3:04 PM [facility] MCV 85.1 80.0 - 94.0 FL 09/24/2023 3:04 PM [facility] MCH 27.5 27.0 - 31.0 PG 09/24/2023 3:04 PM [facility] MCHC 32.4 32.0 - 36.0 G/DL 09/24/2023 3:04 PM [facility] RDW 13.4 11.5 - 14.5 % 09/24/2023 3:04 PM [facility] PLT 289 130 - 400 x10'3/uL 09/24/2023 3:04 PM [facility] MPV 9.3 9.3 - 12.2 FL 09/24/2023 3:04 PM [facility] DIFFERENTIAL TYPE AUTOMATED DIFFERENTIAL 09/24/2023 3:04 PM [facility] NEUTROPHILS % 55.5 % 09/24/2023 3:04 PM [facility] LAB LYMPHOCYTES % 19.9 % 09/24/2023 3:04 PM [facility] LAB MONOCYTES % 11.0 % 09/24/2023 3:04 PM [facility] LAB EOSINOPHILS 11.9 % 09/24/2023 3:04 PM [facility] LAB BASOPHILS 1.4 % 09/24/2023 3:04 PM [facility] LAB IMMATURE GRANS % 0.3 % 09/24/19 3:04 PM SENIOR LIVING ADVISOR [facility] LAB ABS. NEUTROPHILS TOTAL 3.53 1.80 - 7.70 x10'3/uL 09/24/2023 3:04 PM SENIOR LIVING ADVISOR [facility] LAB ABS. LYMPHOCYTES 1.27 1.00 - 4.80 x10'3/uL 09/24/2023 3:04 PM SENIOR LIVING ADVISOR [facility] LAB ABS. MONOCYTES 0.70 0.30 - 0.82 x10'3/uL 09/24/2023 3:04 PM SENIOR LIVING ADVISOR [facility] LAB ABS. EOSINOPHILS 0.76(H) 0.04 - 0.54 x10'3/uL 09/24/2023 3:04 PM SENIOR LIVING ADVISOR [facility] LAB ABS. BASOPHILS 0.09(H) 0.01 - 0.08 x10'3/uL 09/24/2023 3:04 PM SENIOR LIVING ADVISOR [facility] LAB ABS. IMMATURE GRANULOCYTES 0.02 0.00 - 0.49 x10'3/uL 09/24/2023 3:04 PM [facility] 09/24/2023 10:3 8 AM SENIOR LIVING ADVISOR Gamal Cisneros NP LABORATORY Final Result [facility] [address] [place] [address], documented in this encounter Visit Diagnoses Diagnosis Asthma exacerbation ([facility])- Primary Unspecified asthma, with exacerbation documented in this encounter Administered Medications Inactive Administered Medications - up to 3 most recent administrations Medication Order MAR Action Action Date Dose Rate Site ipratropium-albuterol (DUONEB) 0.5-2.5 (3) MG/3ML nebulizer solution 3 mL 3 mL, Nebulization, Once, 1 dose, On 09/24/23 at 1030 Given 09/24/2023 11:36 AM SENIOR LIVING ADVISOR 3 mLs methylPREDNISolone sodium succinate (SOLU-Medrol) injection 125 mg 125 mg, Intravenous, Once, 1 dose, On 09/24/23 at 1030, If ordered IV, administer into a vein over 3-15 minutes. Doses >= 2 mg/kg or 250mg should be given by infusion, unless the benefits of IV injection outweigh the risks (life-threatening shock) Given 09/24/2023 11:34 AM SENIOR LIVING ADVISOR 125 mg documented in this encounter Active and Recently Administered Medications Times are shown in SENIOR LIVING ADVISOR. Scheduled Medication Order 09/22/2023 09/23/2023 09/24/2023 ipratropium-albuterol (DUONEB) 0.5-2.5 (3) MG/3ML nebulizer solution 3 mL (COMPLETED) 3 mL, Nebulization, Once, 1 dose, On 09/24/23 at 1030 1136 (Given - Provid er: Denisse Hawthorne, PRIYA) methylPREDNISolone sodium succinate (SOLU-Medrol) injection 125 mg (COMPLETED) 125 mg, Intravenous, Once, 1 dose, On 09/24/23 at 1030, If ordered IV, administer into a vein over 3-15 minutes. Doses >= 2 mg/kg or 250mg should be given by infusion, unless the benefits of IV injection outweigh the risks (life-threatening shock) 1134 (Given - Provid er: Estefania Oakley RN) documented in this encounter Additional Health Concerns Infection Onset Date Last Indicated Resolved Time COVID-19 Rule Out 09/24/2023 09/24/2023 09/24/2023 3:59 PM SENIOR LIVING ADVISOR Assessment Noted Time PHQ-9 Depression Total Score: 1 09/29/19 10:03 AM SENIOR LIVING ADVISOR documented as of this encounter Care Teams Iron Miner Blasting Relationship Specialty Start Date End Date Soledad Lucas MD [address] [address] PCP - General INTERNAL MEDICINE 09/29/21 documented as of this encounter
--- OUTSIDE RECORDS SUMMARY | 2024-08-03 03:23 | XMS_ITS | Encounter Summary ---
Author Organization [facility] Address [address] [place] [address]. [place], [place] [address] [place] [address] Care Team Providers Care Nurse Plastics Name Role Phone Soledad Lucas MD Primary Care Provider [phone] Encounter Details Date Type Department Care Team (Late st Contact Info) Description 05/08/2024 Therapy Plan [facility] Physical Therapy [address] [facility] [address] [place] [address] Daniela Whyte, PT [address] [place], [place] [id number] Social History Tobacco Use Types Packs/Day Years [...] Progress Notes * Daniela Whyte, PT - 05/08/2024 9:12 AM CDT PHYSICAL THERAPY DISCHARGE NOTE Juliet Stout 08/14/1961 Dx: neck and arm pain 05/08/24 This patient was last seen in the clinic on 03/15/24. The patient attended 3 visits. Patient did not return for further visits. Unable to attend scheduled appointments and cont to have symptoms as oflast visit seen. Please refer to last visit note for final status. DC from OPPT at this time. Daniela Whyte, PT 9:13 AM documented in this encounter Plan of Treatment Upcoming Encounters Date Type Department Care Team (Late st Contact Info) Description 08/19/2024 9:00 AM RADIATION CONTROL TECHNICIAN [facility] [place] [address] [address] [place] [address] [place] [address] [place] [address] 12/16/2024 10:40 AM CDT [facility] [address] [facility] [address] [place] [id number] Ramsey Oakley MD 3 [facility] [address] [place] [address] documented as of this encounter Visit Diagnoses Not on filedocumented in this encounter Additional Health Concerns Assessment Noted Time PHQ-9 Depression Total Score: 1 09/29/19 22 10:03 AM RADIATION CONTROL TECHNICIAN documented as of this encounter Care Teams Nurse Plastics Relationship Specialty [place] [address] [place] [address] PCP - General INTERNAL MEDICINE 09/29/21 documented as of this encounter
--- OUTSIDE RECORDS SUMMARY | 2024-08-03 03:23 | XMS_ITS | Encounter Summary ---
Author Organization [facility] Address [address] [place] [address]. [address] [address] Care Team Providers Care Pet Supplies Salesperson Name Role Phone Soledad Lucas MD Primary Care Provider [phone] Reason for Visit * Reason Onset Date Comments Medication 02/19/2024 Encounter Details Date Type Department Care Team (Late st Contact Info) Description 02/19/[address] [facility] - [place] [address] [address] [place] [address] Soledad Lucas MD [address] [place] [address] [address] [place] [address] Medication Social History Tobacco Use [...] Progress Notes * Soledad Lucas MD - 02/19/2024 5:52 PM CDT Pain medication refilled 02/19/2024. documented in this encounter Plan of Treatment Upcoming Encounters Date Type Department Care Team (Late st Contact Info) Description 08/19/2024 9:00 AM DEPUTY SHERIFF BUILDING GUARD Office Visit [facility] Medical [facility] Mult[facility]pecialty [facility] - [place] [address] [address] [place] [address] Soledad Lucas MD [facility] [address] 12/16/2024 10:40 AM CDT [facility] [address] [facility] [place] [address] Ramsey Oakley MD 3 [facility] [address] [place] [address] documented as of this encounter Visit Diagnoses Diagnosis Chronic bilateral low back pain with left-sided sciatica Right shoulder pain, unspecified chronicity documented in this encounter Additional Health Concerns Assessment Noted Time PHQ-9 Depression Total Score: 1 09/29/19 10:03 AM DEPUTY SHERIFF BUILDING GUARD documented as of this encounter Care Teams Pet Supplies Salesperson Relationship Specialty Start Date End Date Soledad Lucas MD [address] [place] [address] PCP - General INTERNAL MEDICINE 09/29/21 documented as of this encounter
--- OUTSIDE RECORDS SUMMARY | 2024-08-03 03:23 | XMS_ITS | Encounter Summary ---
Author Organization [facility] Address [address] [place] [address]. [place], [place] [address] [place] [address] Care Team Providers Care Quality Control Lab Tech Name Role Phone Soledad Lucas MD Primary Care Provider [phone] Reason for Visit * Reason Onset Date Comments MRI/CT Orders 01/25/2024 Encounter Details Date Type Department Care Team (Late st Contact Info) Description 01/25/2024 Telephone [facility] Multispecialty Care - [place] [address] [address] [place] [address] Soledad Lucas MD [address] [place] [address] 157 [place] [address] MRI/CT Orders Social History Tobacco Use Types Packs/Day Years [...] Progress Notes * Geri Hartley MA - 01/25/2024 8:58 AM CDT Patient was contacted to make sure he has the MRI done before seeing the neurosurgeon and he voicedunderstanding. documented in this encounter Plan of Treatment Upcoming Encounters Date Type Department Care Team (Late st Contact Info) Description 08/19/2024 9:00 AM TIRE CHANGER AIRCRAFT [facility] [place] [address] [address] [place] [address] Soledad Lucas MD [address] [place] [address] 12/16/2024 10:40 AM CDT [facility] [address] [facility] [place] [address] Ramsey Oakley MD 3 [facility] [address] [place] [address] documented as of this encounter Visit Diagnoses Not on filedocumented in this encounter Additional Health Concerns Assessment Noted Time PHQ-9 Depression Total Score: 1 09/29/19 10:03 AM TIRE CHANGER AIRCRAFT documented as of this encounter Care Teams Quality Control Lab Tech Relationship Specialty Start Date End Date Soledad Lucas MD [address] [place] [address] PCP - General INTERNAL MEDICINE 09/29/21 documented as of this encounter
--- OUTSIDE RECORDS SUMMARY | 2024-08-03 03:23 | XMS_ITS | Encounter Summary ---
Author Organization [facility] Address [address] [place] [address]. [address] [address] Care Team Providers Care Histology Manager Name Role Phone Soledad Lucas MD Primary Care Provider [phone] Reason for Referral * Consultation (Routine) - Pending Review Specialty Diagnoses / Procedures Referred By Prasanth santillan Referred To Contact SLEEP & RESPIRATORY CARE Diagnoses Moderate persistent asthma without complication (HHS/HCC) Procedures OFFICE/OUTPATIENT NEW LOW MDM 30-44 MINUTES OFFICE/OUTPT VISIT,NEW,LEVL IV OFFICE/OUTPT VISIT,NEW,LEVL V OFFICE/OUTPT VISIT,EST,LEVL III OFFICE/OUTPT VISIT,EST,LEVL IV OFFICE/OUTPT VISIT,EST,LEVL V Soledad Lucas MD [facility] [address] Phone: tel: fax: [facility] Medical Group [facility] [address] Phone: tel: fax: Referral ID Status Reason Start Date Expiration Date Visits Requested Visits Authorized [id number] Pending Review Specialty Services 01/26/2024 10/31/2024 99 99 OPAEDIC GENERAL Reason for Visit * Reason Comments Follow Up Pt is here with c/o pain and numbness in right arm and breathing issues Asthma Encounter Details Date Type Department Care Team (Latest Contact Info) Description 10/02/2023 1:00 PM ORTHOPAEDIC GENERAL Office Visit [facility] Medical Group Multispecialty Care - [place] [address] [place] [address] [address] [place] [address] Soledad Lucas MD [address] [facility] [address] [place] [address] Follow Up (Pt is here with c/o pain and numbness in right arm and breathing issues); Asthma Social History Tobacco Use Types Packs/Day [...] Sign Reading Time Taken Comments Blood Pressure 141/82 10/02/2023 1:17 PM ORTHOPAEDIC GENERAL Pulse 75 10/02/2023 1:07 PM ORTHOPAEDIC GENERAL Temperature 36.3 ??C (97.3 ??F) 10/02/2023 1:07 PM CS T Respiratory Rate 18 10/02/2023 1:07 PM ORTHOPAEDIC GENERAL Oxygen Saturation 99% 10/02/2023 1:07 PM ORTHOPAEDIC GENERAL Inhaled Oxygen Concentration - - Weight 102.4 kg (225 lb 12.8 oz) 10/02/2023 1:07 PM ORTHOPAEDIC GENERAL Height 185.4 cm (6' 1 ) 10/02/2023 1:07 PM ORTHOPAEDIC GENERAL Body Mass Index 29.79 10/02/2023 1:07 PM ORTHOPAEDIC GENERAL documented in this encounter Patient Instructions * Patient Instructions* Soledad Lucas MD - 10/02/2023 1:00 PM ORTHOPAEDIC GENERAL Follow up in 4 weeks for your right shoulder and numbness and blood pressure follow up. Please work on getting your RSV vaccine from any local pharmacy. Referral call You will receive a call from our referral team ([phone]) regarding your referral. Insurance authorization Our clinical specialist will contact your insurance company to get prior authorization if needed. Appointment If you have been referred to an [facility] hospital or [facility] Medical Group provider, the hospital or clinic you have been referred to will call you to schedule your appointment. For those outside services of [facility], our referral expects will be in contact by phone or mail regarding your recently placed referral. If you have not heard anything from your referral in about 1 week, please call [phone]. Working with insurance companies can be cumbersome, but we are dedicated to processing your referral timely and efficiently. Please know you have a caring and competent team working on your behalf [facility] continuum of care as quickly as possible. [facility] O[facility]IC [facility] * Attachments The following attachments cannot be sent through Care Everywhere. * Asthma Discharge Instructions, Adult (Kyrgyz) documented in this encounter Progress Notes * Soledad Lucas MD - 10/02/2023 1:00 PM CSTSummary: Acute visit notes Images from the original note were not included. Internal Medicine Outpatient Progress Note CC: Follow Up (Pt is here with c/o pain and numbness in right arm and breathing issues) and Asthma HPI: Juliet Stout is a 62-year-old male who presents for follow-up for uncontrolled asthma and numbness of the right upper extremity. Patient with longstanding history of asthma. Symptoms uncontrolled causing patient to go to the ER recently. Has had multiple ER visits recently for uncontrolled asthma. On further questioning, patient tells me he has run out of his Breo inhaler. It appears that Breo was not significantly helping with symptom control. He also has been using his albuterol inhaler more frequently. Recently requiredprednisone as well as a Z-Kevin. Completed medications about 2 days ago. No longer wheezing. Denies any chronic cough at this time. Denies any pleurisy. Currently not following with pulmonary. No recent sick contacts. He is up-to-date with most of his vaccines with exception of his COVID and RSV vacci ne. Discussed at today's visit and patient encouraged to have this completed. Patient also comes today for follow-up for right numbness and tingling in the right lateral 1-1/2 fingers. He reports right shoulder pain associated with right elbow pain. Symptoms have been ongoing for 1 month. Has underlining history of arthritis. No recent injuries or heavy lifting. Rates discomfort as mild to moderate. No associated pain. His blood pressure is elevated at today's visit. Problem List Patient Active Problem List Diagnosis [...] Outpatient Medications Marked as Taking for the 10/02/23 encounter (Office Visit) with Soledad Lucas MD Medication Sig Dispense Refill albuterol sulfate HFA 108 (90 Base) MCG/ACT inhaler Inhale 2 puffs into the lungs every 6 (six) hours as needed for Wheezing. 18 g 5 atorvastatin (LIPITOR) 40 MG tablet Take 1 tablet (40 mg total) by mouth nightly at bedtime. 90 tablet 1 Ltluswj-Nzvnjfmjaxd-Jhvzrlrklz (BREZTRI AEROSPHERE) 160-9-4.8 MCG/ACT Aerosol Inhale 2 puffs into the lungs 2 (two) times daily. 10.7 g 5 celecoxib (CELEBREX) 100 MG capsule Take 1 capsule (100 mg total) by mouth 2 (two) times daily. Indications: pt not sure if this is right mg gabapentin (NEURONTIN) 400 MG capsule Take 1 [...] Pain. Indications: Chronic Pain 30 tablet 0 Allergies: Review of patient's allergies indicates: Allergen Reactions Lisinopril Swelling Swollen lips Review of Systems Constitutional: Negative for chills, diaphoresis, fever, malaise/fatigue and weight loss. HENT: Negative. Eyes: Negative. Respiratory: Negative. Cardiovascular: Negative for chest pain, palpitations, orthopnea, claudication, leg swelling and PND. Gastrointestinal: Negative. Genitourinary: Negative. Musculoskeletal: Negative. Neurological: Positive for tingling. Negative for dizziness, tremors, sensory change, speech change, focal weakness, seizures, loss of consciousness, weakness and headaches. Objective: Filed Vitals: 10/02/23 1307 10/02/23 1317 BP: (!) 155/81 (!) 141/82 Pulse: 75 Resp: 18 Temp: 97.3 ??F (36.3 ??C) TempSrc: Temporal SpO2: 99% Weight: 102.4 kg (225 lb 12.8 oz) Height: 1.854 m (6' 1 ) Body mass index is 29.79 kg/m??. General alert, cooperative, no distress HEENT [...] Plan: Encounter Diagnose(s) ICD-10-CM SNOMED CT(R) 1. Moderate persistent asthma without complication ([facility]) J45.40 UNCOMPLICATED MODERATE PERSISTENT ASTHMA Cwlalqi-Flwmeigsqkn-Tnnsxwdnnk (BREZTRI AEROSPHERE) 160-9-4.8 MCG/ACT Aerosol montelukast (SINGULAIR) 10 MG tablet Ambulatory referral to Pulmonology ([facility]) 2. 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 Moderate persistent asthma without complication ([facility]) -Start Veiyvqo-Lororenriwo-Fkztciqlti (BREZTRI AEROSPHERE) 160-9-4.8 MCG/ACT Aerosol; Inhale 2 puffs into the lungs 2 (two) times daily. Dispense: 10.7 g; Refill: 5 -Add montelukast (SINGULAIR) 10 MG tablet; Take 1 tablet (10 mg total) by mouth nightly at bedtime.Dispense: 90 tablet; Refill: 1 - Ambulatory referral to Pulmonology ([facility]) -Uncontrolled. Uncontrolled with Breo inhaler. Changing inhalers at this time. -Discontinue Breo inhaler. Continue with DuoNebs. Avoid precipitating factors. Up-to-date with pulmonary function test. 2. Entrapment of right ulnar nerve -Follow-up in 4 weeks for injections to the right joint- elbow and shoulder -If persistent concerns, will consider imaging. Counseling given: Yes Tobacco comments: counsled by Dr Lucas I personally spent a total of 30 minutes on the day of the encounter. This includes ksaw-sp-jhmq and rtb-zsym-tt-face time I provided on the day of the encounter & excludes time spent performing separately reportable services. Side effects and less common but more severe adverse effects of recommended medical therapies were explained to the patient. Follow up office visit in 1 month. Requested MyChart or telephone follow up prn if symptoms change,worsen, or persist, or if side effect of treatment is experienced. DRAGON: This dictation was at least in part performed using PerformYardon speak and there may be some inherent flaws in this utility systems repairer operator due to the nature of this program. Soledad Lucas MD Internal Medicine [facility], [facility]. [facility] documented in this encounter Plan of Treatment Upcoming Encounters Date Type Department Care Team (Late st Contact Info) Description 08/19/2024 9:00 AM ORTHOPAEDIC GENERAL [facility] [place] [address] [address] [place] [address] Soledad Lucas MD [address] [place] [address] [address] [place] [address] 12/16/2024 10:40 AM CDT [facility] 3 [facility] [place] [phone] Rasmey Oakley MD 3 [facility] [address] [place] [address] Scheduled Referrals Name Type Priority Associated Diagnoses Orde r Schedule Ambulatory referral to Pulmonology ([facility]) Referral Routine Moderate persistent asthma without complication (HHS/HCC) Ordered: 10/02/2023 documented as of this encounter Visit Diagnoses Diagnosis Moderate persistent asthma without complication (HHS/HCC)- Primary Unspecified asthma Entrapment of right ulnar nerve documented in this encounter Additional Health Concerns Assessment Noted Time PHQ-9 Depression Total Score: 1 09/29/19 22 10:03 AM ORTHOPAEDIC GENERAL documented as of this encounter Care Teams Histology Manager Relationship Specialty Start Date End Date Soledad Lucas MD [address] [place] [address] PCP - General INTERNAL MEDICINE 09/29/21 documented as of this encounter
--- OUTSIDE RECORDS SUMMARY | 2024-08-03 03:23 | XMS_ITS | Encounter Summary ---
Author Organization [facility] Address [address] [place] [address]. [place], [place] [address] [place] [address] Care Team Providers Care Toll Settlement Clerk Name Role Phone Soledad Lucas MD Primary Care Provider [phone] Encounter Details Date Type Department Care Team (Latest Contact Info) Description 03/05/2024 Travel Social History Tobacco Use Types Packs/Day [...] st Contact Info) Description 08/19/2024 9:00 AM TIEDOWN OPERATOR Office Visit [facility] Multispecialty Care - [place] [address] [address] [place] [address] Soledad Lucas MD [address] [place] [address] [address] [place] [address] 12/16/2024 10:40 AM CDT Office Visit [facility] Medical [facility] Multispec[facility]ty [address] [place] [address] Ramsey Oakley MD 3 [facility] [address] [place] [address] documented as of this encounter Visit Diagnoses Not on filedocumented in this encounter Additional Health Concerns Assessment Noted Time PHQ-9 Depression Total Score: 1 09/29/19 22 10:03 AM TIEDOWN OPERATOR documented as of this encounter Care Teams Toll Settlement Clerk Relationship Specialty Start Date End Date Soledad Lucas MD [address] [address] PCP - General INTERNAL MEDICINE 09/29/21 documented as of this encounter
--- OUTSIDE RECORDS SUMMARY | 2024-08-03 03:23 | XMS_ITS | Encounter Summary ---
Author Organization [facility] - [facility] Address [address] [place] [address] [address] Care Team Providers Care Hospital Tray Service Worker Name Role Phone Soledad Lucas MD Primary Care Provider [phone] Reason for Visit * Reason Onset Date Comments Medication 11/06/2023 Encounter Details Date Type Department Care Team (Late st Contact Info) Description 11/06/2023 Telephone [facility] Medical [facility] Multispecialty Care - [place] [address] [address] [place] [address] Soledad Lucas MD [address] [place] [address] [address] [place] [address] Medication Social History Tobacco Use [...] Progress Notes * Soledad Lucas MD - 11/06/2023 11:02 AM CDT Percocet refilled. * Koko Carie Brand - 11/06/2023 9:52 AM CDT Patient called and requested a refill of his PERCOCET 7.5-325 MG tablet please. Thank you. documented in this encounter Plan of Treatment Upcoming Encounters Date Type Department Care Team (Late st Contact Info) Description 08/19/2024 9:00 AM DRESSING ROOM ATTENDANT [facility] Emergency Department - [place] [address] [address] [address] [place] [address] Soledad Lucas MD [address] [place] [address] 12/16/2024 10:40 AM CDT [facility] - [facility] [address] [facility] [place] [address] Ramsey Oakley MD [address] [facility] [address] [place] [address] documented as of this encounter Visit Diagnoses Diagnosis Chronic bilateral low back pain with left-sided sciatica Cervical radiculopathy Brachial neuritis or radiculitis nos documented in this encounter Additional Health Concerns Assessment Noted Time PHQ-9 Depression Total Score: 1 09/29/19 10:03 AM DRESSING ROOM ATTENDANT documented as of this encounter Care Teams Hospital Tray Service Worker Relationship Specialty Start Date End Date Soledad Lucas MD [address] [place] [address] PCP - General INTERNAL MEDICINE 09/29/21 documented as of this encounter
--- OUTSIDE RECORDS SUMMARY | 2024-08-03 03:23 | XMS_ITS | Encounter Summary ---
Author Organization [facility] Address [address] [place] [address]. [place], [place] [address] [place] [address] Care Team Providers Care Foreign Service Teacher Name Role Phone Soledad Lucas MD Primary Care Provider [phone] Encounter Details Date Type Department Care Team (Latest Contact Info) Description 08/29/2023 Travel Social History Tobacco Use Types Packs/Day [...] st Contact Info) Description 08/19/2024 9:00 AM INFORMATICS CONSULTANT Office Visit [facility] Medical [facility] Mult[facility]pecialty Care - [place] [address] [address] [address] [place] [address] Soledad Lucas MD [address] [place] [address] 157 [place] [address] 12/16/2024 10:40 AM CDT Office Visit [facility] Medical [facility]is[facility]ty [address] [place] [address] Ramsey Oakley MD [facility] [address] [place] [address] documented as of this encounter Visit Diagnoses Not on filedocumented in this encounter Additional Health Concerns Assessment Noted Time PHQ-9 Depression Total Score: 1 09/29/19 22 10:03 AM INFORMATICS CONSULTANT documented as of this encounter Care Teams Foreign Service Teacher Relationship Specialty Start Date End Date Soledad Lucas MD [address] [address] PCP - General INTERNAL MEDICINE 09/29/21 documented as of this encounter
--- OUTSIDE RECORDS SUMMARY | 2024-08-03 03:23 | XMS_ITS | Encounter Summary ---
Author Organization [facility] Address [address] [place] [address]. [place], [place] [address] [place] [address] Care Team Providers Care Disposal Operator Name Role Phone Soledad Lucas MD Primary Care Provider [phone] Encounter Details Date Type Department Care Team (Latest Contact Info) Description 02/05/2024 Scan HEALTH INFO [facility] Scanned, Doc Med Group Social History Tobacco Use Types Packs/Day Years [...] st Contact Info) Description 08/19/2024 9:00 AM AIRPLANE TESTER Office Visit [facility] Medical [facility] Multispecialty [place] [address] [address] [address] [place] [address] Soledad Lucas MD [address] [place] [address] 157 [place] [address] 12/16/2024 10:40 AM CDT Office Visit [facility] Medical Group Multispecialty Care - [facility] [address] [facility] [address] [place] [address] Ramsey Oakley MD [address] [facility] [address] [place] [address] documented as of this encounter Visit Diagnoses Not on filedocumented in this encounter Additional Health Concerns Assessment Noted Time PHQ-9 Depression Total Score: 1 09/29/19 22 10:03 AM AIRPLANE TESTER documented as of this encounter Care Teams Disposal Operator Relationship Specialty Start Date End Date Soledad Lucas MD [address] [facility] 157 [place] [address] PCP - General INTERNAL MEDICINE 09/29/21 documented as of this encounter
--- OUTSIDE RECORDS SUMMARY | 2024-08-03 03:23 | XMS_ITS | Encounter Summary ---
Author Organization [facility] - [facility] Address [address] [place] [address]. [place], [place] [address] [place] [address] Care Team Providers Care Game Master Name Role Phone Soledad Lucas MD Primary Care Provider [phone] Reason for Visit * Reason Onset Date Comments Prior Authorization 01/17/2024 Encounter Details Date Type Department Care Team (Late st Contact Info) Description 01/17/2024 Telephone [facility] Medical Group Multispecialty Care - [address] [address] [address] [place] [address] Soledad Lucas MD [address] [place] [address] 157 [place], [place] [id number] Prior Authorization Social History Tobacco Use Types Packs/Day Years [...] Notes * Lois Mei MA - 01/17/2024 5:06 PM CDT Oxycodone is pending with insurance. Will check back tomorrow to see if I need to go thru covermymeds. documented in this encounter Plan of Treatment Upcoming Encounters Date Type Department Care Team (Late st Contact Info) Description 08/19/2024 9:00 AM CONTRACT PROJECT MANAGER [facility] [place] [address] [address] [address] [place] [address] Soledad Lucas MD [address] [place] [address] 12/16/2024 10:40 AM CDT Office Visit [facility] [address] [facility] [place] [address] Ramsey Oakley MD 3 [facility] [address] [place] [address] documented as of this encounter Visit Diagnoses Not on filedocumented in this encounter Additional Health Concerns Assessment Noted Time PHQ-9 Depression Total Score: 1 09/29/19 22 10:03 AM CONTRACT PROJECT MANAGER documented as of this encounter Care Teams Game Master Relationship Specialty Start Date End Date Soledad Lucas MD [address] [place] [address] PCP - General INTERNAL MEDICINE 09/29/21 documented as of this encounter
--- OUTSIDE RECORDS SUMMARY | 2024-08-03 03:23 | XMS_ITS | Encounter Summary ---
Author Organization [facility] - [facility] Address [address] [place] [address]. [place] [address] Care Team Providers Care Wet Cotton Feeder Name Role Phone Soledad Lucas MD Primary Care Provider [phone] Reason for Visit * Reason Onset Date Comments Medication 07/08/2024 Encounter Details Date Type Department Care Team (Late st Contact Info) Description 07/08/2024 Telephone [facility] Medical Group Multispecialty Care - [place] [address] [address] [address] [place] [address] Soledad Lucas MD [address] [place] [address] [address] [place], [place] [phone] Medication Social History Tobacco Use Types Packs/Day [...] encounter Progress Notes * Koko Brand - 07/08/2024 8:02 AM CST Juliet Stout called and requested a refill of his Oxycodone please. Thank you. Last visit with SOLEDAD LUCAS in [facility] was on: 03/13/2024 in [facility] MSC TILE INSTALLATION HELPER documented in this encounter Plan of Treatment Upcoming Encounters Date Type Department Care Team (Late st Contact Info) Description 08/19/2024 9:00 AM WOOD TILE INSTALLATION HELPER [facility] [place] [address] [address] [address] [place] [address] [place] [address] [place] [address] 12/16/2024 10:40 AM CDT [facility] [address] [facility] [place] [address] Ramsey Oakley MD 3 [facility] [address] [place] [address] documented as of this encounter Visit Diagnoses Diagnosis Right shoulder pain, unspecified chronicity Chronic bilateral low back pain with left-sided sciatica documented in this encounter Additional Health Concerns Assessment Noted Time PHQ-9 Depression Total Score: 1 09/29/19 22 10:03 AM WOOD TILE INSTALLATION HELPER documented as of this encounter Care Teams Wet Cotton Feeder Relationship Specialty Start Date End Date Soledad Lucas MD [address] [place] [address] PCP - General INTERNAL MEDICINE 09/29/21 documented as of this encounter
--- OUTSIDE RECORDS SUMMARY | 2024-08-03 03:23 | XMS_ITS | Encounter Summary ---
Author Organization [facility] - [facility] Address [address] [place] [address]. [address] [address] Care Team Providers Care Insurance Business Analyst Name Role Phone Soledad Lucas MD Primary Care Provider [phone] Reason for Visit * Reason Onset Date Comments Error 02/13/2024 Encounter Details Date Type Department Care Team (Late st Contact Info) Description 02/13/2024 Telephone [facility] Medical Group Multispecialty Care - [place] [address] [address] [place], [place] [address] Soledad Lucas MD [address] [place] [address] [address] [place], [place] [id number] Error (/) Social History Tobacco Use Types Packs/Day Years [...] as of this encounter Progress Notes * Jatin Cortez - 02/13/2024 8:42 AM CDT Error documented in this encounter Plan of Treatment Upcoming Encounters Date Type Department Care Team (Late st Contact Info) Description 08/19/2024 9:00 AM BRIDGE IRONWORKER HELPER Office Visit [facility] Medical [facility] Multispecialty Care - [place] [address] [address] [address] [place] [address] Soledad Lucas MD [address] [facility] [address] [place] [address] 12/16/2024 10:40 AM CDT Office Visit [facility] Multispecialty [facility] [address] [facility] [place] [address] Ramsey Oakley MD 3 [facility] [address] [place] [address] documented as of this encounter Visit Diagnoses Not on filedocumented in this encounter Additional Health Concerns Assessment Noted Time PHQ-9 Depression Total Score: 1 09/29/19 22 10:03 AM BRIDGE IRONWORKER HELPER documented as of this encounter Care Teams Insurance Business Analyst Relationship Specialty [place] [address] [place] [address] 157 [place] [address] PCP - General INTERNAL MEDICINE 09/29/21 documented as of this encounter
--- OUTSIDE RECORDS SUMMARY | 2024-08-03 03:23 | XMS_ITS | Encounter Summary ---
Author Organization [facility] Address [address] [place] [address]. [address] [address] Care Team Providers Care Molding And Trim Installer Name Role Phone Soledad Lucas MD Primary Care Provider [phone] Reason for Visit * Reason Comments Cerv Radiculitis * Physical Medicine (Routine) - Closed Specialty Diagnoses / Procedures Referred By Prasanth santillan Referred To Contact PHYSICAL THERAPY / [facility] Physical Therapy Diagnoses Right shoulder pain, unspecified chronicity Cervical radiculopathy Right arm pain Procedures OFFICE/OUTPATIENT NEW LOW MDM 30-44 MINUTES OFFICE/OUTPT VISIT,NEW,LEVL IV OFFICE/OUTPT VISIT,NEW,LEVL V OFFICE/OUTPT VISIT,EST,LEVL III OFFICE/OUTPT VISIT,EST,LEVL IV OFFICE/OUTPT VISIT,EST,LEVL V Isabel Adari, INTERLACER [address] [place] [address] Phone: tel: fax: [facility] Physical Therapy [address] [place] [address] Phone: tel: fax: Referral ID Status Reason Start Date Expiration Date V isits Requested Visits Authorized [id number] Closed Physical Therapy 01/12/2024 04/06/2024 12 12 Encounter Details Date Type Department Care Team (Late st Contact Info) Description 03/05/2024 9:30 AM CDT Office Visit [facility] Physical Therapy [address] [place] [address] Daniela Whyte, PT [facility] [place] [address] Cerv Radiculitis Social History Tobacco Use Types [...] Progress Notes * Daniela Whyte, PT - 03/05/2024 9:30 AM CDT Physical Therapy Visit Note: Patient Name: Juliet Stout Diagnosis: Cervical radiculopathy (primary encounter diagnosis) Cervical pain (neck) SUBJECTIVE Therapy Visit Start Time: 929 Stop Time: 1015 Time Calculation (min): 45 min Treatment Day: 2 Total Approved Visits: 10 requested based on medical necessity Therapy Plan of Care: address posture, scapular and RTC movement and stregth, nerve glides and manual as needed Current Therapy Orders: eval and treat cervical radiculopathy Diagnosis: cervical pain and cervical radiculopahy Referring Provider: Soledad Lucas Hand Dominance: Right Subjective Note: notes sleeping aggravates his elbow and nerve [...] and fwd vs left Neuromuscular Re-education - 92345 Number of Minutes - 33223: 15 Intervention: chin tucks seated and reivew supine x 8 hold 5 seconds Intervention: scapular retraction Intervention: sidelying ER with towel roll, cues to press into roll with ER 2 x 10 ea Intervention: supine horizontal abduction red band 2 x 10 issue red band for home Other (Comments): done for shoulder and scapular proprioception Therapeutic Exercise - 79779 Number of Minutes - 25301: 30 Exercise: nu step seat 11 arms 13 x 4 min level 6 Exercise: seated cervical AROM: flex / ext, rotate and side bend cues for movement Exercise: educated on seating and sleeping posture with elbow flexed Exercise: scapular mobility elevate and depress and retract and protract Exercise: supine protraction 1 set 3# x 10 and 1 set no weight Exercise: supine triceps extension 3# 2 x 10 Exercise: educate on shoulder posture and purpose of activities with use of mirror for feedback Other (Comments): done for scapular and shoulder strength, and posture Manual Therapy - 21207 Number of minutes-39778: held today Intervention: cervical distraction Intervention: cervical suboccipital release Home Exercise Program Current Home Exercise Program: added band to HEP with horizontal abduction Education Was Education Provided: Yes Topic: see exercise section Recipient: Patient Method: Verbal Response: Verbalized understanding ASSESSMENT Assessment Note: the patient struggles with scapular mobility with supine protraction. he has some elbow pain wtih movement as well. he has reduced scapular and shoulder strength with reduced posture and position but is more aware of this upon end of session. he has some discomfort from the activity and gets some nerve pain with right sidelying today. educated on discomfort not harmful but discussed position s and postures that may be more aggravating and how to avoid. Response to Treatment : good but some aggravation no greater than 5/10 Continue on Functional Deficit of: reduced RTC and scapular strength with more stain to neck and elbow, reduced posture awareness. aggraved sleep due to arm pain PLAN Plan Changes: scapular and RTC strength and neck AROM Next Visit Plan: cont to build on scapular stability and shoulder strength to aide with neck and radicular symptoms Total Time Total Time in Minutes: 45 Timed Code Treatment Minutes : 45 documented in this encounter Plan of Treatment Upcoming Encounters Date Type Department Care Team (Late st Contact Info) Description 08/19/2024 9:00 AM VENEER GRADER Office Visit [facility] Medical Group Multispecialty Care - [address] [place] [address] Soledad Lucas MD [address] [facility] [address] [place] [address] 12/16/2024 10:40 AM CDT Office Visit [facility] Multispecialty [facility] 3 [facility] [place] [address] Ramsey Oakley MD [address] [facility] [address] [place] [address] documented as of this encounter Visit Diagnoses Diagnosis Cervical radiculopathy- Primary Brachial neuritis or radiculitis nos Cervical pain (neck) Cervicalgia documented in this encounter Additional Health Concerns Assessment Noted Time PHQ-9 Depression Total Score: 1 09/29/19 10:03 AM VENEER GRADER documented as of this encounter Care Teams Molding And Trim Installer Relationship Specialty Start Date End Date Soledad Lucas MD [address] [place] [address] [address] [place] [address] PCP - General INTERNAL MEDICINE 09/29/21 documented as of this encounter
--- OUTSIDE RECORDS SUMMARY | 2024-08-03 03:23 | XMS_ITS | Encounter Summary ---
Author Organization [facility] Address [address] [place] [address]. [place] [address] Care Team Providers Care Garbage Truck Helper Name Role Phone Soledad Lucas MD Primary Care Provider [phone] Reason for Visit * Reason Comments Asthma * Consultation (Routine) - Pending Review Specialty Diagnoses / Procedures Referred By Prasanth santillan Referred To Contact SLEEP & RESPIRATORY CARE Diagnoses Moderate persistent asthma without complication ([facility]/HCC) Procedures OFFICE/OUTPATIENT NEW LOW MDM 30-44 MINUTES OFFICE/OUTPT VISIT,NEW,LEVL IV OFFICE/OUTPT VISIT,NEW,LEVL V OFFICE/OUTPT VISIT,EST,LEVL III OFFICE/OUTPT VISIT,EST,LEVL IV OFFICE/OUTPT VISIT,EST,LEVL V Soledad Lucas MD [address] [place] [address] Phone: tel: fax: [facility] Medical [facility] - [address] [address] Phone: tel: fax: Referral ID Status Reason Start Date Expiration Date Visits Requested Visits Authorized [id number] Pending Review Specialty Services 01/26/2024 10/31/2024 99 99 Encounter Details Date Type Department Care Team (Late st Contact Info) Description 06/18/2024 10:00 AM CONTRACT DESIGNER Office Visit [facility] Medical [facility] Multispecialty Care [address] [place] [address] Ramsey Oakley MD 3 [facility] [address] [place] [address] Asthma Social History Tobacco Use Types Packs/Day [...] Comments Blood Pressure 151/87 06/18/2024 10:16 AM CONTRACT DESIGNER Pulse 70 06/18/2024 9:53 AM CONTRACT DESIGNER Temperature 36.2 ??C (97.1 ??F) 06/18/2024 9:53 AM CS T Respiratory Rate 18 06/18/2024 9:53 AM CONTRACT DESIGNER Oxygen Saturation 99% 06/18/2024 9:53 AM CONTRACT DESIGNER RA Inhaled Oxygen Concentration - - Weight 109.3 kg (241 lb) 06/18/2024 9:53 AM CONTRACT DESIGNER Height 185.4 cm (6' 1 ) 06/18/2024 9:53 AM CONTRACT DESIGNER Body Mass Index 31.8 06/18/2024 9:53 AM CONTRACT DESIGNER documented in this encounter Patient Instructions * Patient Instructions* Ramsey Oakley MD - 06/18/2024 10:00 AM CONTRACT DESIGNER Okay to continue Breztri 2 puffs twice a day. Rinse gargle and spit after use Albuterol can be used as needed Get your blood drawn for an allergy panel Plan to follow with me in 6 months RACT DESIGNER documented in this encounter Progress Notes * Ramsey Oakley MD - 06/18/2024 10:00 AM CST Images from the original note were not included. [facility] PULMONARY MEDICINE History Chief Complaint Patient presents with Asthma Referring provider: Soledad Lucsa MD Juliet Stout is a 62-year-old male with a past medical history of hypertension, arthritis who is referred to pulmonary clinic for evaluation of asthma. He was diagnosed with asthma since childhood. When he was a kid he had a real bad. Never hospitalized. Never intubated. As time went on his symptoms waned until about 2 years ago he started noticing increasing shortness of breath. His main triggers include physical activity. Believes he does havesome environmental allergies, currently does not take any allergy medications. Endorses wheezing, seems to be brought on by physical activity. Cough, dry but can occasionally be productive depending on the time year. Currently no significant shortness of breath, was recently started on Breztri. Respiratory symptoms have improved on this medication. Never cigarette smoker, he does smoke marijuana, approximately 1 joint daily. 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 No pets at home. Past Medical History: Diagnosis Date Arthritis Hypertension Past Surgical History: Procedure Laterality Date KNEE ARTHROSCOPY Right KNEE SURGERY Right Unsure of exactly what they did to patella. Social History Tobacco Use Smoking status: Never Passive exposure: Never Smokeless tobacco: Never Tobacco comments: counsled by Dr Lucas Vaping Use Vaping status: Never Used Substance Use Topics Alcohol use: Yes Alcohol/week: 11.7 standard drinks of alcohol Types: 7 Cans of beer per week Comment: Socially Drug use: Yes Types: Marijuana Family History Problem Relation Name Age of Onset Cancer Mother Prostate Cancer Father Cancer Sister Diabetes Sister Cancer Brother Current Outpatient Medications Medication Sig Dispense Refill albuterol sulfate HFA 108 (90 Base) MCG/ACT inhaler Inhale 2 puffs into the lungs every 6 (six) hours as needed for Wheezing. 18 g 5 ALPRAZolam (XANAX) 0.25 MG tablet Use on the day of the MRI cervical about 15 min before MRI. 2 tablet 0 atorvastatin (LIPITOR) 40 MG tablet Take 1 tablet (40 mg total) by mouth nightly at bedtime. 90 tablet 1 Gxwsiju-Trfhxfhpvjj-Ybwllmmjqb (BREZTRI AEROSPHERE) 160-9-4.8 MCG/ACT Aerosol Inhale 2 puffs into the lungs 2 (two) times daily. 10.7 g 5 celecoxib (CELEBREX) 100 MG capsule Take 1 capsule (100 mg total) by mouth 2 (two) times daily. Indications: pt not sure if this is right mg 60 capsule 2 gabapentin (NEURONTIN) 100 MG capsule Take 4 capsules (400 mg total) by mouth 3 (three) times dailyas needed. 360 capsule 5 gabapentin (NEURONTIN) 400 MG capsule Take 1 [...] mouth every 7 days. 12 capsule 3 No current facility-administered medications for this visit. Review of patient's allergies indicates: Allergen Reactions Lisinopril Swelling Swollen lips Immunization History Administered Date(s) Administered PFIZER COVID-19 (ORIGINAL FORMULATION, PURPLE CAP) mRNA, LNP-S, PF, 30 MCG/0.3 ML DOSE 10/24/2020, 11/15/2020 Pneumococcal (Pneumovax 23) 11/01/2021 Pneumococcal (Prevnar 13) 08/16/2023 Tdap (Adacel) 10/13/2021 Review of Systems Constitutional: Negative for chills, fever and weight loss. HENT: Negative for ear pain, hearing loss and nosebleeds. Eyes: Negative for blurred vision, double vision and redness. Respiratory: Positive for cough and wheezing. Negative for hemoptysis, sputum production and shortness of breath. Cardiovascular: Negative for chest pain, palpitations, orthopnea, leg swelling and PND. Gastrointestinal: Negative for heartburn, nausea and vomiting. Genitourinary: Negative for dysuria, frequency and urgency. Musculoskeletal: Negative for myalgias. Skin: Negative for rash. Neurological: Negative for dizziness, tingling and headaches. Endo/Heme/Allergies: Does not bruise/bleed easily. Psychiatric/Behavioral: Negative for depression and suicidal ideas. Physical Exam Filed Vitals: 06/18/24 0953 06/18/24 1016 BP: (!) 151/85 (!) 151/87 Pulse: 70 Resp: 18 Temp: 97.1 ??F (36.2 ??C) TempSrc: Temporal SpO2: 99% Weight: 109.3 kg (241 lb) Height: 1.854 m (6' 1 ) Body mass index is 31.8 kg/m??. Physical Exam: General: Alert, pleasant, in NAD Neuro: Alert, appropriate Psych: Affect normal Head: NC, AT EENT: No Sinus tenderness to palpation, mallampati 2 Neck: Supple Lymph: No appreciable cervical lymphadenopathy Respiratory: non-labored, ctab, no wheezes/crackles Cardiovascular: s1,s2, rrr, no audible murmur GI: non-distended, bs+ Musc: Bilateral wrist ROM wnl Ext: no edema, no clubbing Skin: No visible rashes PFTs: 11/09/2021 Prebronchodilator FEV1 3.17 L, 97%. FVC 4.15 L, 97%. FEV/FVC ratio 76%. Postbronchodilator FEV1 3.45 L, 105%. FVC 4.75 L 112%. FEV/FVC ratio 73%. TLC 6.83 L, 86%. RV 2.46 L, 97%. DLCO 101% CXR 09/24/2023 Imaging reviewed. Normal chest x-ray. Pertinent Labs 09/24/2023 absolute eosinophils 760 [place] Sleepiness Scale Score: No data to display Assessment At least moderate persistent asthma Absolute eosinophilia Suspect environmental allergies Hypertension Plan -Continue Breztri 2 puffs twice daily. Rinse gargle spit after use. Discussed with him that this isoff label for asthma but his symptoms do seem to be well- controlled at this time, we will keep it the same for now - Albuterol as needed - Biologic candidate should his asthma control worsen despite maximum inhaler use - Region 8 allergy panel, consider addition of an allergy regimen pending results Return in about 6 months (around 12/16/2024). Ramsey Oakley MD RACT DESIGNER documented in this encounter Plan of Treatment Upcoming Encounters Date Type Department Care Team (Late st Contact Info) Description 08/19/2024 9:00 AM CONTRACT DESIGNER [facility] [address] [place] [address] Soledad Lucas MD [address] [facility] [address] [place] [address] 12/16/2024 10:40 AM CDT [facility] 3 [facility] [place] [phone] Ramsey Oakley MD [facility] [address] [place] [address] documented as of this encounter Results * (ABNORMAL) ALLERGENS UPPER RESP (06/18/2024 10:35 AM CONTRACT DESIGNER) IGE 262.0(H) 0 - 100 kU/L 06/20/2024 1:29 PM CONTRACT DESIGNER [facility] ALLERGEN D PTERONYSSINUS <0.35 <0.35 kU/L 06/20/2024 1:29 PM CONTRACT DESIGNER [facility] Comment:<0.35 IS CLASS 0 (NE GATIVE) ALLERGEN HOUSE DUST MITE <0.35 <0.35 kU/L 06/20/2024 1:[address] [facility] Comment:<0.35 IS CLASS 0 (NE GATIVE) ALLERGEN CAT DANDER <0.35 <0.35 kU/L 06/20/2024 1:[address] [facility] Comment:<0.35 IS CLASS 0 (NE GATIVE) ALLERGEN DOG DANDER <0.35 <0.35 kU/L 06/20/2024 1:[address] [facility] Comment:<0.35 IS CLASS 0 (NE GATIVE) ALLERGEN BERMUDA GRASS <0.35 <0.35 kU/L 06/20/2024 1:[address] [facility] Comment:<0.35 IS CLASS 0 (NE GATIVE) ALLERGEN LATOYA GRASS 2.73(H) <0.35 kU/L 06/20/2024 1:[address] [facility] Comment:0.71 - 3.50 IS CLASS 2 (POSITIVE) ALLERGEN COCKROACH <0.35 <0.35 kU/L 06/20/2024 1:[address] [facility] Comment:<0.35 IS CLASS 0 (NE GATIVE) ALLERGEN PENICILLIUM NOTATUM <0.35 <0.35 kU/L 06/20/2024 1:[address] [facility] Comment:<0.35 IS CLASS 0 (NE GATIVE) ALLERGEN CLADOSPORIUM HERBARUM 2.60(H) <0.35 kU/L 06/20/2024 1:[address] [facility] Comment:0.71 - 3.50 IS CLASS 2 (POSITIVE) ALLERGEN ASPERGILLUS FUMIGATUS 4.60(H) <0.35 kU/L 06/20/2024 1:[address] [facility] Comment:3.51 - 17.5 IS CLASS 3 (POSITIVE) ALLERGEN ALTERNARIA ALTERNATA 3.75(H) <0.35 kU/L 06/20/2024 1:[address] [facility] Comment:3.51 - 17.5 IS CLASS 3 (POSITIVE) ALLERGEN BOX ELDER <0.35 <0.35 kU/L 06/21/2024 11:[address] [facility] Comment:<0.35 IS CLASS 0 (NE GATIVE) ALLERGEN WALNUT TREE <0.35 <0.35 kU/L 06/20/2024 1:[address] [facility] Comment:<0.35 IS CLASS 0 (NE GATIVE) ALLERGEN MAPLE LEAF SYCAMORE <0.35 <0.35 kU/L 06/20/2024 1:[address] [facility] Comment:<0.35 IS CLASS 0 (NE GATIVE) ALLERGEN COTTONWOOD TREE <0.35 <0.35 kU/L 06/21/2024 11:[address] [facility] Comment:<0.35 IS CLASS 0 (NE GATIVE) ALLERGEN WHITE MAGGY TREE <0.35 <0.35 kU/L 06/21/2024 11:[address] [facility] Comment:<0.35 IS CLASS 0 (NE GATIVE) ALLERGEN PECAN HICKORY <0.35 <0.35 kU/L 06/21/2024 11:[address] [facility] Comment:<0.35 IS CLASS 0 (NE GATIVE) ALLERGEN MOUNTAIN JUNIPER 0.39(H) <0.35 kU/L 06/21/2024 11:[address] [facility] Comment:0.35 - 0.70 IS CLASS 1 (EQUIVOCAL) ALLERGEN OAK <0.35 <0.35 kU/L 06/21/2024 11:[address] [facility] Comment:<0.35 IS CLASS 0 (NE GATIVE) ALLERGEN WHITE MULBERRY TREE <0.35 <0.35 kU/L 06/21/2024 11:[address] [facility] Comment:<0.35 IS CLASS 0 (NE GATIVE) ALLERGEN ELM <0.35 <0.35 kU/L 06/21/2024 11:[address] [facility] Comment:<0.35 IS CLASS 0 (NE GATIVE) ALLERGEN COMMON RAGWEED 4.05(H) <0.35 kU/L 06/21/2024 11:32 AM CONTRACT DESIGNER [facility] Comment:3.51 - 17.5 IS CLASS 3 (POSITIVE) ALLERGEN SALTWORT <0.35 <0.35 kU/L 06/21/2024 11:32 AM CONTRACT DESIGNER [facility] Comment:<0.35 IS CLASS 0 (NE GATIVE) ALLERGEN PIGWEED <0.35 <0.35 kU/L 06/21/2024 11:32 AM CONTRACT DESIGNER [facility] Comment:<0.35 IS CLASS 0 (NE GATIVE) ALLERGEN ROUGH MARSHELDER 0.63(H) <0.35 kU/L 06/21/2024 11:32 AM CONTRACT DESIGNER [facility] Comment:0.35 - 0.70 IS CLASS 1 (EQUIVOCAL) ALLERGEN MOUSE URINE PROTEIN <0.35 <0.35 kU/L 06/20/2024 1:29 PM CONTRACT DESIGNER [facility] Comment:<0.35 IS CLASS 0 (NE GATIVE) 06/18/2024 10:3 5 AM CONTRACT DESIGNER us Ramsey Oakley MD LABORATORY Final Result [facility] [address] [place] [address], [phone] documented in this encounter Visit Diagnoses Diagnosis Moderate persistent asthma without complication (HHS/HCC)- Primary Unspecified asthma Eosinophilia, unspecified type Seasonal allergies Allergic rhinitis, cause unspecified Primary hypertension Unspecified essential hypertension documented in this encounter Additional Health Concerns Assessment Noted Time PHQ-9 Depression Total Score: 1 09/29/19 22 10:03 AM CONTRACT DESIGNER documented as of this encounter Care Teams Garbage Truck Helper Relationship Specialty Start Date End Date Soledad Lucas MD [facility] [address] [address] PCP - General INTERNAL MEDICINE 09/29/21 documented as of this encounter
--- OUTSIDE RECORDS SUMMARY | 2024-08-03 03:23 | XMS_ITS | Encounter Summary ---
Author Organization [facility] - [facility] Address [address] [place] [address]. [place], [place] [id number] [place] [address] Care Team Providers Care Divorce Mediator Name Role Phone Soledad Lucas MD Primary Care Provider [phone] Reason for Visit * Reason Onset Date Comments Medication 12/05/2023 Encounter Details Date Type Department Care Team (Late st Contact Info) Description 12/05/2023 Patient Outreach [facility] Medical Group Multispecialty Care - [address] [place] [address] Page Rosales RN Medication Social History Tobacco Use Types Packs/Day [...] as of this encounter Progress Notes * Page Rosales RN - 12/05/2023 4:55 PM CDT Unable to reach patient for Medication Adherence regarding Losartan. documented in this encounter Plan of Treatment Upcoming Encounters Date Type Department Care Team (Late st Contact Info) Description 08/19/2024 9:00 AM SKIDDER LOADER Office Visit [facility] Multispecialty Care - [address] [address] [address] [place] [address] Soledad Lucas MD [address] [facility] [address] [place] [address] 12/16/2024 10:40 AM CDT Office Visit [facility] Multispecialty Care - [facility] 3 [facility] [address] [place] [id number] Ramsey Oakley MD 3 [facility] [address] [place] [address] documented as of this encounter Visit Diagnoses Not on filedocumented in this encounter Additional Health Concerns Assessment Noted Time PHQ-9 Depression Total Score: 1 09/29/19 22 10:03 AM SKIDDER LOADER documented as of this encounter Care Teams Divorce Mediator Relationship Specialty Start Date End Date Soledad Lucas MD [address] [address] PCP - General INTERNAL MEDICINE 09/29/21 documented as of this encounter
--- OUTSIDE RECORDS SUMMARY | 2024-08-03 03:23 | XMS_ITS | Encounter Summary ---
Author Organization [facility] Address [address] [place] [address]. [address] [address] Care Team Providers Care Clinical Research Specialist Name Role Phone Soledad Lucas MD Primary Care Provider [phone] Reason for Visit * Reason Onset Date Comments Medication 07/22/2024 Encounter Details Date Type Department Care Team (Late st Contact Info) Description 07/22/2024 Telephone [facility] Medical Group Multispecialty Care - [place] [address] [address] [address] [place] [address] Soledad Lucas MD [address] [place] [address] [address] [place], [place] [id number] Medication Social History Tobacco Use Types Packs/Day [...] Progress Notes * Geri Hartley MA - 07/22/2024 11:30 AM CST Pharmacy updated E CHECKER * Libra Deb Goldberg - 07/22/2024 11:14 AM CST This patient called requesting that his pharmacy be changed to [facility] in [place], [place]. He recently moved there. He also needs a new script for: oxyCODONE-acetaminophen (PERCOCET) 7.5-325 MG tablet sent to that [facility]. Thank you. E CHECKER documented in this encounter Plan of Treatment Upcoming Encounters Date Type Department Care Team (Late st Contact Info) Description 08/19/2024 9:00 AM PRICE CHECKER [facility] - [place] [address] [address] [address] [place] [address] Soledad Lucas MD [address] [place] [address] 12/16/2024 10:40 AM CDT [facility] - [facility] 3 [facility] [address] [place] [address] Ramsey Oakley MD 3 [facility] [address] [place] [address] documented as of this encounter Visit Diagnoses Not on filedocumented in this encounter Additional Health Concerns Assessment Noted Time PHQ-9 Depression Total Score: 1 09/29/19 22 10:03 AM PRICE CHECKER documented as of this encounter Care Teams Clinical Research Specialist Relationship Specialty Start Date End Date Soledad Lucas MD [address] [place] [address] PCP - General INTERNAL MEDICINE 09/29/21 documented as of this encounter
--- OUTSIDE RECORDS SUMMARY | 2024-08-03 03:23 | XMS_ITS | Encounter Summary ---
Author Organization [facility] - [facility] Address [address] [place] [address]. [address] [address] Care Team Providers Care Clinical Unit Educator Name Role Phone Soledad Lucas MD Primary Care Provider [phone] Reason for Visit * Reason Onset Date Comments Medication 10/31/2023 Encounter Details Date Type Department Care Team (Late st Contact Info) Description 10/31/2023 Telephone [facility] Medical Group Multispecialty Care - [place] [address] [address] [place] [address] Soledad Lucas MD [address] [place] [address] [address] [place] [address] Medication Social History Tobacco Use [...] as of this encounter Progress Notes * Mirella Sanford NP - 10/31/2023 10:54 AM CDT Will need to defer to PCP then when she returns. * Monica Bro MA - 10/31/2023 9:55 AM CDT Spoke with camille in [facility] it hasn't been filled since August he does have CSA and UDS but the UDS was positive for Marijuana * Mirella Sanford NP - 10/31/2023 9:34 AM CDT IPDMP does not show med has been filled before? Where does pt get filled at? When you find out can you call the pharmacy to be sure it is due to be filled and see if UDS and CSA is needed. * Monica Bor MA - 10/31/2023 9:20 AM CDT Patient called and asked for a refill of oxycodone documented in this encounter Plan of Treatment Upcoming Encounters Date Type Department Care Team (Late st Contact Info) Description 08/19/2024 9:00 AM VACUUM TESTER CANS Office Visit [facility] Multispecialty Care - [place] [address] [address] [place] [address] Soledad Lucas MD [address] [place] [address] 12/16/2024 10:40 AM CDT Office Visit [facility] Multispecialty Care - [facility] 3 [facility] [address] [place] [address] Ramsey Oakley MD [address] [place] [address] documented as of this encounter Visit Diagnoses Not on filedocumented in this encounter Additional Health Concerns Assessment Noted Time PHQ-9 Depression Total Score: 1 09/29/19 22 10:03 AM VACUUM TESTER CANS documented as of this encounter Care Teams Clinical Unit Educator Relationship Specialty Start Date End Date Soledad Lucas MD [facility]8 [facility] [address] [place] [address] PCP - General INTERNAL MEDICINE 09/29/21 documented as of this encounter
--- OUTSIDE RECORDS SUMMARY | 2024-08-03 03:23 | XMS_ITS | Encounter Summary ---
Author Organization [facility] Address [address] [place] [address]. [place], [place] [address] [place] [address] Care Team Providers Care Staff Home Therapy Rn Name Role Phone Soledad Lucas MD Primary Care Provider [phone] Reason for Referral * Surgical (Routine) - New Request Specialty Diagnoses / Procedures Referred By Prasanth santillan Referred To Contact NEUROSURGERY Diagnoses Cervical radiculopathy Procedures OFFICE/OUTPATIENT NEW LOW MDM 30-44 MINUTES OFFICE/OUTPT VISIT,NEW,LEVL IV OFFICE/OUTPT VISIT,NEW,LEVL V OFFICE/OUTPT VISIT,EST,LEVL III OFFICE/OUTPT VISIT,EST,LEVL IV OFFICE/OUTPT VISIT,EST,LEVL V Soledad Lucas MD [address] [facility] [address] [place] [address] Phone: tel: fax: [facility] Medical Group Multispecialty Care - [facility] 3 [facility], [address] [place] [address] Phone: tel: fax: Referral ID Status Reason Start Date Expiration Date Visits Requested Visits Authorized [id number] New Request Specialty Services 01/09/2024 02/08/2025 1 1 Reason for Visit * Reason Onset Date Comments Referral 01/09/2024 Encounter Details Date Type Department Care Team ([facility] Contact Info) Description 01/09/2024 Telephone [facility] [place] [address] [address] [place] [address] Soledad Lucas MD [address] [facility] [address] [place] [address] Referral Social History Tobacco Use Types Packs/Day [...] Progress Notes * Soledad Lucas MD - 01/09/2024 3:25 PM CDT Please call this patient. I have put in a referral for him to see neurosurgery first. Given the numbness and tingling going down the extremity, I will get an MRI of his neck. He will then follow-up with neurosurgery. Orthopedics will only see him after his neck issues have been resolved. Thanks. documented in this encounter Plan of Treatment Upcoming Encounters Date Type Department Care Team (Late Contact Info) Description 08/19/2024 9:00 AM SPLICING MACHINE OPERATOR Office Visit [facility] Multispecialty [facility] [place] [address] [address] [place] [address] Soledad Lucas MD [address] [facility] [address] [place] [address] 12/16/2024 10:40 AM CDT Office Visit [facility] [address] [place] [address] Ramsey Oakley MD [facility] [address] [place] [address] Scheduled Referrals Name Type Priority Associated Diagnoses Orde r Schedule Ambulatory referral to Neurosurgery (OTHER) Referral Routine Cervical radiculopathy Ordered: 01/09/2024 documented as of this encounter Visit Diagnoses Diagnosis Cervical radiculopathy- Primary Brachial neuritis or radiculitis nos documented in this encounter Additional Health Concerns Assessment Noted Time PHQ-9 Depression Total Score: 1 09/29/19 22 10:03 AM SPLICING MACHINE OPERATOR documented as of this encounter Care Teams Staff Home Therapy Rn Relationship Specialty Start Date End Date Soledad Lucas MD [address] [facility] [address] [place] [address] PCP - General INTERNAL MEDICINE 09/29/21 documented as of this encounter
--- OUTSIDE RECORDS SUMMARY | 2024-08-03 03:23 | XMS_ITS | Encounter Summary ---
Author Organization [facility] Address [address] [place] [address]. [place], [place] [address] [place] [address] Care Team Providers Care Manager Housekeeping Name Role Phone Soledad Lucas MD Primary Care Provider [phone] Encounter Details Date Type Department Care Team (Latest Contact Info) Description 09/24/2023 Travel Social History Tobacco Use Types Packs/Day [...] st Contact Info) Description 08/19/2024 9:00 AM DRAFTER ELECTROMECHANICAL Office Visit [facility] Medical [facility]pec[facility]ty Care - [place] [address] [address] [address] [place] [address] Soledad Lucas MD [address] [place] [address] [address] [place] [address] 12/16/2024 10:40 AM CDT Office Visit [facility] Medical [facility] Mult[facility]pec[facility]ty [address] [place] [address] Ramsey Oakley MD 3 [facility] [address] [place] [address] documented as of this encounter Visit Diagnoses Not on filedocumented in this encounter Additional Health Concerns Infection Onset Date Last Indicated Resolved Time COVID-19 Rule Out 09/24/2023 09/24/2023 09/24/2023 3:59 PM DRAFTER ELECTROMECHANICAL Assessment Noted Time PHQ-9 Depression Total Score: 1 09/29/19 10:03 AM DRAFTER ELECTROMECHANICAL documented as of this encounter Care Teams Manager Housekeeping Relationship Specialty Start Date End Date Soledad Lucas MD [address] [facility] [address] [place] [address] PCP - General INTERNAL MEDICINE 09/29/21 documented as of this encounter
--- OUTSIDE RECORDS SUMMARY | 2024-08-03 03:24 | XMS_ITS | Encounter Summary ---
Author Organization [facility] Address [address] [place] [address]. [place], [place] [address] [place] [address] Care Team Providers Care Senior Radiation Therapist Name Role Phone Soledad Lucas MD Primary Care Provider [phone] Reason for Visit * Reason Onset Date Comments Follow Up Call 06/19/2023 Encounter Details Date Type Department Care Team (Late st Contact Info) Description 06/19/2023 Telephone [facility] Medical Group Multispecialty Care - [place] [address] [address] [place] [address] [place] [address] [place] [address] [address] [place] [address] Follow Up Call Social History [...] Progress Notes * Soledad Lucas MD - 06/19/2023 8:51 PM CST I called and spoke to patient who was wondering if he needs to be on cholesterol medication. Medication was prescribed many months ago and patient was lost to follow-up and request was made by pharmacy for refill. Prescription sent and patient encouraged to take medication. Patient also concerned about cost of Breo. I called and confirmed with pharmacy. Cost of Breo covered by patient's insurance per pharmacy. Patient aware to go and last picker medication. He tells me he is wheezing. Encouraged to go to the urgent care if wheezing worsening. He can schedule an acute visit if there is an open spot on my schedule. All questions answered and patient grateful for call. CIATE ACCOUNTANT documented in this encounter Plan of Treatment Upcoming Encounters Date Type Department Care Team (Late st Contact Info) Description 08/19/2024 9:00 AM ASSOCIATE ACCOUNTANT [facility] [place] [address] [address] [address] [place] [address] Soledad Lucas MD [address] [place] [address] 12/16/2024 10:40 AM CDT [facility] [address] [facility] [address] [place] [address] Ramsey Oakley MD 3 [facility] [address] [place] [address] documented as of this encounter Visit Diagnoses Not on filedocumented in this encounter Additional Health Concerns Assessment Noted Time PHQ-9 Depression Total Score: 1 09/29/19 10:03 AM ASSOCIATE ACCOUNTANT documented as of this encounter Care Teams Senior Radiation Therapist Relationship Specialty Start Date End Date Soledad Lucas MD [address] [place] [address] PCP - General INTERNAL MEDICINE 09/29/21 documented as of this encounter
--- OUTSIDE RECORDS SUMMARY | 2024-08-03 03:24 | XMS_ITS | Encounter Summary ---
Author Organization [facility] Address [address] [place] [address]. [place], [place] [address] [place] [address] Care Team Providers Care Chief Writer Name Role Phone Soledad Lucas MD Primary Care Provider [phone] Reason for Visit * Reason Comments Lab (SCAN) Encounter Details Date Type Department Care Team (Latest Contact Info) Description 04/25/2023 Scan HEALTH INFO SRVCS Scanned, Doc Med Group Lab (SCAN) Social History Tobacco Use Types Packs/Day [...] st Contact Info) Description 08/19/2024 9:00 AM VERIFICATION ENGINEER Office Visit [facility] Medical Group Multispecialty Care - [place] [address] [address] [address] [place] [address] Soledad Lucas MD [address] [place] [address] [address] [place] [address] 12/16/2024 10:40 AM CDT Office Visit [facility] Medical Group Multispecialty Care - [facility] [address] [facility] [address] [place] [address] Ramsey Oakley MD [address] [place] [address] documented as of this encounter Procedures Procedure Name Priority Date/Time Associated Diagnosis Comments OUTSIDE LAB (SCAN ORDER) 04/25/2023 OUTSIDE LAB (SCAN ORDER) 04/25/2023 documented in this encounter Results * OUTSIDE LAB (SCAN) (04/25/2023) 04/25/2023 us Doc Med Group Scanned SCANNING Final Resu lt * OUTSIDE LAB (SCAN) (04/25/2023) 04/25/2023 us Doc [facility] Scanned SCANNING Final Resu lt documented in this encounter Visit Diagnoses Not on filedocumented in this encounter Additional Health Concerns Infection Onset Date Last Indicated Resolved Time COVID-19 Rule Out 09/24/2023 09/24/2023 09/24/2023 3:59 PM VERIFICATION ENGINEER Assessment Noted Time PHQ-9 Depression Total Score: 1 09/29/19 10:03 AM VERIFICATION ENGINEER documented as of this encounter Care Teams Chief Writer Relationship Specialty Start Date End Date Soledad Lucas MD [address] [facility] [address] [place] [address] PCP - General INTERNAL MEDICINE 09/29/21 documented as of this encounter
--- OUTSIDE RECORDS SUMMARY | 2024-08-03 03:24 | XMS_ITS | Encounter Summary ---
Author Organization [facility] Address [address] [place] [address]. [place], [place] [address] [place] [address] Care Team Providers Care Hogshead Head Matcher Name Role Phone Soledad Lucas MD Primary Care Provider [phone] Encounter Details Date Type Department Care Team (Latest Contact Info) Description 08/21/2023 Scan HEALTH INFO SRVCS Scanned, Doc Med [...] st Contact Info) Description 08/19/2024 9:00 AM CYBER INTELLIGENCE ANALYST Office Visit [facility] Medical [facility] Multispecialty [place] [address] [address] [address] [place] [address] Soledad Lucas MD [address] [place] [address] [address] [place] [address] 12/16/2024 10:40 AM CDT Office Visit [facility] Medical Group Multispecialty Care - [facility] [address] [facility] [place] [address] Ramsey Oakley MD 3 [facility] [address] [place] [address] documented as of this encounter Visit Diagnoses Not on filedocumented in this encounter Additional Health Concerns Infection Onset Date Last Indicated Resolved Time COVID-19 Rule Out 09/24/2023 09/24/2023 09/24/2023 3:59 PM CYBER INTELLIGENCE ANALYST Assessment Noted Time PHQ-9 Depression Total Score: 1 09/29/19 22 10:03 AM CYBER INTELLIGENCE ANALYST documented as of this encounter Care Teams Hogshead Head Matcher Relationship Specialty Start Date End Date Soledad Lucas MD [address] [address] PCP - General INTERNAL MEDICINE 09/29/21 documented as of this encounter
--- OUTSIDE RECORDS SUMMARY | 2024-08-03 03:24 | XMS_ITS | Encounter Summary ---
Author Organization [facility] Address [address] [place] [address]. [address] [address] Care Team Providers Care Procurement Manager Name Role Phone Soledad Lucas MD Primary Care Provider [phone] Reason for Visit * Reason Onset Date Comments Lab Results 08/23/2023 Encounter Details Date Type Department Care Team (Late st Contact Info) Description 08/23/2023 Telephone [facility] Medical Group Multispecialty Care - [place] [address] [address] [place] [address] Soledad Lucas MD [address] [place] [address] [address] [place], [place] [id number] Lab Results Social History Tobacco Use Types Packs/Day [...] as of this encounter Progress Notes * Monica Bro MA - 08/23/2023 9:46 AM CST Tried calling patient no answer no voicemail LE WORKER documented in this encounter Plan of Treatment Upcoming Encounters Date Type Department Care Team (Late st Contact Info) Description 08/19/2024 9:00 AM SAMPLE WORKER Office Visit [facility] Multispecialty [facility] - [place] [address] [address] [place] [address] Soledad Lucas MD [address] [facility] [address] [place] [address] 12/16/2024 10:40 AM CDT Office Visit [facility] Mult[facility]pecialty [facility] [address] [facility] [address] [place] [address] Ramsey Oakley MD [address] [facility] [address] [place] [address] documented as of this encounter Visit Diagnoses Not on filedocumented in this encounter Additional Health Concerns Assessment Noted Time PHQ-9 Depression Total Score: 1 09/29/19 10:03 AM SAMPLE WORKER documented as of this encounter Care Teams Procurement Manager Relationship Specialty [place] [address] [place] [address] 157 [place] [address] PCP - General INTERNAL MEDICINE 09/29/21 documented as of this encounter
--- OUTSIDE RECORDS SUMMARY | 2024-08-03 03:24 | XMS_ITS | Encounter Summary ---
Author Organization [facility] Address [address] [place] [address]. [address] [address] Care Team Providers Care Javascript Application Developer Name Role Phone Soledad Lucas MD Primary Care Provider [phone] Reason for Visit * Reason Comments Physical Knee Pain Pain to right knee Follow Up Follow up chronic me dical issues Hypertension Hyperlipidemia Asthma Encounter Details Date Type Department Care Team (Latest Contact Info) Description 08/16/2023 10:20 AM ELDER ASSISTANT Office Visit [facility] Multispecialty Care - [place] [address] [address] [place] [address] Soledad Lucas MD [address] [place] [address] [address] [place] [address] Physical; Knee Pain (Pain to right knee); Follow Up (Follow up chronic medical issues); Hypertension; Hyperlipidemia; Asthma Social History Tobacco Use Types Packs/Day [...] Sign Reading Time Taken Comments Blood Pressure 142/81 08/16/2023 11:20 AM ELDER ASSISTANT Pulse 72 08/16/2023 10:38 AM ELDER ASSISTANT Temperature 36.7 ??C (98 ??F) 08/16/2023 10:38 AM ELDER ASSISTANT Respiratory Rate 16 08/16/2023 10:38 AM ELDER ASSISTANT Oxygen Saturation 98% 08/16/2023 10:38 AM ELDER ASSISTANT Inhaled Oxygen Concentration - - Weight 97.6 kg (215 lb 3.2 oz) 08/16/2023 10:38 AM ELDER ASSISTANT Height 185.4 cm (6' 1 ) 08/16/2023 10:38 AM ELDER ASSISTANT Body Mass Index 28.39 08/16/2023 10:38 AM ELDER ASSISTANT documented in this encounter Patient Instructions * Patient Instructions* Soledad Lucas MD - 08/16/2023 10:20 AM ELDER ASSISTANT Please follow up in February 2024 for your chronic medical issues. Please get your RSV vaccine done. R ASSISTANT * Attachments The following attachments cannot be sent through Care Everywhere. * Yearly Physical for Adults (Maltese) documented in this encounter Progress Notes * Soledad Lucas MD - 08/16/2023 10:20 AM CSTAddended by: SOLEDAD LUCAS on: 08/17/2023 04:46 PM Modules accepted: Orders R ASSISTANT * Soledad Lucas MD - 08/16/2023 10:20 AM CSTSummary: Annual physical notes Images from the original note were not included. ANNUAL PHYSICAL NOTES Encounter Date: 08/16/2023 Chief Complaint: 62-year-old male presents for Physical, Knee Pain (Pain to right knee), Follow Up (Follow up chronic medical issues), Hypertension, Hyperlipidemia, and Asthma HPI The patient is being seen for a health maintenance evaluation and for follow up of chronic medical issues. At today's visit, patient's main concern is that of right knee pain. Patient has had left knee surgery done. He is yet to schedule for his right knee. Currently follows with orthopedics and has undergone multiple knee injections without any significant improvement. He tells me surgery is likely to be scheduled sometime in the fall. For now, rates his pain as mild. He is currently on Celebrex 100 mg twice daily and oxycodone 7.5-325 mg daily as needed (this was last prescribed by myself in March 2023). Denies any recent swelling. No recent screening drainage. Has had multiple knee drainage inthe past. Patient also with chronic low back pain. Currently symptoms are mild. On Percocet. No longer on tizanidine. He is on gabapentin 400 mg 3 times daily prescribed by orthopedics. He also uses Celebrex which helps some. No numbness or tingling down the lower extremities. No loss of stool or urine incontinence. Currently not following with therapy. Overall, patient reports his symptoms are stable. Patient also with underlining asthma. Recently has noticed some wheezing. No recent upper respiratory symptoms. No fever or chills. No sore throat. Uses his albuterol only as needed. No recent hospitalizations. Over the last few months, patient has had to go to the ER for mobilization. Never been intubated recent he is also on Breo inhaler. Overall, patient reports symptoms stable other than recent wheezing. Patient also with hyperlipidemia currently on atorvastatin 40 mg nightly. Taking medications as directed. No myalgias. Patient also with hypertension. Recently was prescribed losartan hydrochlorothiazide 50-12 0.5 and takes 1 tablet daily. Has run out of medications over the last couple of weeks. His blood pressure at today's visit 142/81 mmHg and tells me he has been off his medications for the last 1 week. Prescription being sent at today's visit and adjusting dose of medication. I did explain to patient that is most likely that being in pain raises his blood pressure. He will continue to keep a home blood pressure log and monitor blood pressures. Patient Active Problem List Diagnosis Derangement of posterior horn of lateral meniscus, unspecified laterality Primary osteoarthritis of right knee Osteoarthritis of multiple joints Primary hypertension Overweight (BMI 25.0-29.9) Mild intermittent asthma without complication (HHS/HCC) Vitamin D deficiency Prediabetes General Health: good Dental Health: Sees dentist regularly Vision Health: Wears glasses Hearing Health: Hearing slightly decreased Immunizations Needed: COVID, Shingrix, and RSV Weight: Overweight Body mass index is 28.39 kg/m??. Physical Activity: Does not exercise Prostate Cancer Screening: Done Testicular Cancer Screening: None Colorectal Cancer Screening: Up-to-date Metabolic Screening: Patient needs to be screened today. HCV Screening: Done PHQ-9 Screening Score: PHQ-9: 09/29/2021 10:03 AM PHQ2/PHQ 9 DEPRESSION SCREEN QUESTIONAIRE LITTLE INTEREST OR PLEASURE IN DOING THINGS 0-Not at All FEELING DOWN, DEPRESSSED,OR HOPELESS 1-Several Days PHQ2 DEPRESSION TOTAL SCORE 1 DEPRESSION SCREENING TOTAL SCORE 1 IF YOU CHECKED OFF ANY PROBLEMS Not difficult at all DELANO-7 (Generalized Anxiety Disorder) Screening 09/29/2021 9:20 AM DELANO-7 Feeling nervous, anxious and on edge 0 - not at all Not being able to stop or control worrying 0 - not at all Worrying too much about different things 1 - several days Trouble Relaxing 1 - several days Being so restless that it's hard to sit still 0 - not at all Becoming easily annoyed or irritable 0 - not at all Feeling afraid as if something awful might happen 0 - not at all Total Score 2 If you checked off any problems, how difficult have those problems made it for you to do your work take care of things at home or get along with other people? not difficult at all Smoking Status: History Smoking Status Never Smokeless Tobacco Never Patient does not meet criteria for Low Dose CT screening Sleep Apnea Risk Factors: None Review of Systems Constitutional: Negative for chills, diaphoresis, fever, malaise/fatigue and weight loss. HENT: Negative. Eyes: Negative. Respiratory: Positive for wheezing. Negative for cough, hemoptysis, sputum production and shortnessof breath. Cardiovascular: Negative for chest pain, palpitations, orthopnea, claudication, leg swelling and PND. Gastrointestinal: Negative. Genitourinary: Negative. Musculoskeletal: Positive for back pain and joint pain. Negative for falls, myalgias and neck pain. Neurological: Negative. Psychiatric/Behavioral: Negative. Past Medical History: Diagnosis Date Arthritis Hypertension Past Surgical History: Procedure Laterality Date KNEE ARTHROSCOPY Right KNEE SURGERY Right Unsure of exactly what they did to patella. Family History Problem Relation Name Age of Onset Cancer Mother Prostate Cancer Father Cancer Sister Diabetes Sister Cancer Brother Social History Socioeconomic History Marital status: Legally Spouse name: Not on file Number of children: Not on file Years of education: Not on file Highest education level: Not on file Occupational History Not on file Tobacco Use Smoking status: Never Passive exposure: Never Smokeless tobacco: Never Tobacco comments: counsled by Dr Lucas Vaping Use Vaping Use: Never used Substance and Sexual Activity Alcohol use: Yes Alcohol/week: 11.7 standard drinks of alcohol Types: 7 Cans of beer per week Comment: Socially Drug use: Yes Types: Marijuana Sexual activity: Yes Other Topics Concern Not on file Social History Narrative Not on file Social Determinants of Health Financial Resource Strain: Not on file Food Insecurity: Not on file Transportation Needs: Not on file Physical Activity: Not on file Stress: Not on file Social Connections: Not on file Intimate Partner Violence: Not on file Housing Stability: Not on file Immunization History Administered Date(s) Administered PFIZER COVID-19 (ORIGINAL FORMULATION, PURPLE CAP) mRNA, LNP-S, PF, 30 MCG/0.3 ML DOSE 10/24/2020, 11/15/2020 Pneumococcal (Pneumovax 23) 11/01/2021 Pneumococcal (Prevnar 13) 08/16/2023 Tdap (Adacel) 10/13/2021 Current Outpatient Medications Medication Sig Dispense Refill [...] total) by mouth daily. 90 tablet 1 NEBULIZER DEVICE, DME, Take 1 Device by nebulization every 6 (six) hours as needed. Use for asthma attack. 1 Device 0 oxyCODONE-acetaminophen (PERCOCET) 7.5-325 MG tablet Take 1 tablet by mouth daily as needed for Pain. Indications: Chronic Pain 30 tablet 0 predniSONE (DELTASONE) 20 MG tablet Take 2 tablets (40 mg total) by mouth daily for 5 days. 10 tablet 0 vitamin D2, ergocalciferol, (DRISDOL) 1.25 mg capsule Take 1 capsule (50,000 Units total) by mouth every 7 days. 12 capsule 3 No current facility-administered medications for this visit. Current Outpatient Medications on File Prior to Visit Medication Sig celecoxib (CELEBREX) 100 MG capsule Take 1 capsule (100 mg total) by mouth 2 (two) times daily. Indications: pt not sure if this is right mg gabapentin (NEURONTIN) 400 MG capsule Take 1 capsule (400 mg total) by mouth 3 (three) times daily.Indications: pt not sure of mg NEBULIZER DEVICE, DME, Take 1 Device by nebulization every 6 (six) hours as needed. Use for asthma attack. No current facility-administered medications on file prior to visit. Review of patient's allergies indicates: Allergen Reactions Lisinopril Swelling Swollen lips Objective: Filed Vitals: 08/16/23 1038 08/16/23 1120 BP: (!) 150/83 (!) 142/81 Pulse: 72 Resp: 16 Temp: 98 ??F (36.7 ??C) TempSrc: Temporal SpO2: 98% Weight: 97.6 kg (215 lb 3.2 oz) Height: 1.854 m (6' 1 ) Physical Exam Vitals and nursing note reviewed. Constitutional: General: He is not in acute distress. Appearance: He is not ill-appearing, toxic-appearing or diaphoretic. HENT: Head: Normocephalic and atraumatic. Right Ear: Tympanic membrane, ear canal and external ear normal. There is no impacted cerumen. Left Ear: Tympanic membrane, ear canal and external ear normal. There is no impacted cerumen. Nose: Nose normal. No congestion. Mouth/Throat: Mouth: Mucous membranes are moist. Pharynx: Oropharynx is clear. No oropharyngeal exudate. Eyes: General: No scleral icterus. Right eye: No discharge. Left eye: No discharge. Conjunctiva/sclera: Conjunctivae normal. Pupils: Pupils are equal, round, and reactive to light. Neck: Thyroid: No thyromegaly. Vascular: No carotid bruit or JVD. Trachea: No tracheal deviation. Cardiovascular: Rate and Rhythm: Normal rate and regular rhythm. Pulses: Normal pulses. Heart sounds: Normal heart sounds. No murmur heard. Pulmonary: Effort: Pulmonary effort is normal. No respiratory distress. Breath sounds: No stridor. Wheezing present. No rales. Comments: Slightly decreased air entry bilaterally with some wheezing. Chest: Chest wall: No tenderness. Abdominal: General: Bowel sounds are normal. There is no distension. Palpations: Abdomen is soft. There is no mass. Tenderness: There is no abdominal tenderness. There is no right CVA tenderness, left CVA tenderness, guarding or rebound. Hernia: No hernia is present. Musculoskeletal: General: No swelling, tenderness, deformity or signs of injury. Normal range of motion. Cervical back: Normal range of motion and neck supple. No rigidity or tenderness. Right lower leg: No edema. Left lower leg: No edema. Lymphadenopathy: Cervical: No cervical adenopathy. Skin: Coloration: Skin is not jaundiced or pale. Findings: No bruising, erythema, lesion or rash. Neurological: Mental Status: He is alert and oriented to person, place, and time. Cranial Nerves: No cranial nerve deficit. Sensory: No sensory deficit. Motor: No weakness or abnormal muscle tone. Coordination: Coordination normal. Gait: Gait is intact. Gait normal. Deep Tendon Reflexes: Reflexes are normal and symmetric. Reflexes normal. Psychiatric: Mood and Affect: Mood and affect normal. Behavior: Behavior normal. Thought Content: Thought content normal. Cognition and Memory: Memory normal. Judgment: Judgment normal. Assessment & Plan: Juliet was seen today for physical, knee pain, follow up, hypertension, hyperlipidemia and asthma. Diagnoses and all orders for this visit: Annual physical exam -Patient past medical, surgical, family history and social history updated. Allergies, immunizations and medications updated. Also did discuss healthy lifestyle including exercising, dietary changes and safe sexual practices as well as safe habits common to patient age group including wearing seat belt when transporting in a vehicle and limiting alcohol and avoiding smoking/second hand smoking. Patient will set up MyChart. Patient will fax over any remaining outside records that would be relevant to care provided. - URINALYSIS AUTO DIP - HEMOGLOBIN, GLYCOSYLATED; Future - TSH W/REFLEX; Future - LIPID PANEL; Future - COMPREHENSIVE METABOLIC PANEL; Future - CBC W/DIFF AUTOMATED; Future - VENIPUNC ARM DRAW - PROSTATE SPECIFIC ANTIGEN,SCREENING; Future - PROSTATE SPECIFIC ANTIGEN,SCREENING - CBC W/DIFF AUTOMATED - COMPREHENSIVE METABOLIC PANEL - LIPID PANEL - TSH W/REFLEX - HEMOGLOBIN, GLYCOSYLATED General medical exam - URINALYSIS AUTO DIP - HEMOGLOBIN, GLYCOSYLATED; Future - TSH W/REFLEX; Future - LIPID PANEL; Future - COMPREHENSIVE METABOLIC PANEL; Future - CBC W/DIFF AUTOMATED; Future - VENIPUNC ARM DRAW - PROSTATE SPECIFIC ANTIGEN,SCREENING; Future - PROSTATE SPECIFIC ANTIGEN,SCREENING - CBC W/DIFF AUTOMATED - COMPREHENSIVE METABOLIC PANEL - LIPID PANEL - TSH W/REFLEX - HEMOGLOBIN, GLYCOSYLATED Screening for diabetes mellitus - HEMOGLOBIN, GLYCOSYLATED; Future Screening for hyperlipidemia - LIPID PANEL; Future Screening for hypothyroidism - TSH W/REFLEX; Future Primary hypertension - Currently blood pressure patient understood but not significantly. Discontinue losartan hydrochlorothiazide - Patient currently uncontrolled on current treatment for hypertension. Will continue and adjust medications as ordered. Continued to discuss weight loss, adequate cardiovascular fitness. DASH diet was discussed as well as decrease in sodium intake. BP goal of < 140/90 expressed. -Changed to losartan (COZAAR) 25 MG tablet; Take 1 tablet (25 mg total) by mouth daily. Mixed hyperlipidemia - Tolerating medications well. Checking lipids. -Continue weight atorvastatin (LIPITOR) 40 MG tablet; Take 1 tablet (40 mg total) by mouth nightly at bedtime. Chronic bilateral low back pain with left-sided sciatica - Patient has not had a prescription from orthopedic surgeon and due for refill. Currently patient mild to moderate. -Refill sent for oxyCODONE-acetaminophen (PERCOCET) 7.5-325 MG tablet; Take 1 tablet by mouth dailyas needed for Pain. Indications: Chronic Pain Cervical radiculopathy - Stable - oxyCODONE-acetaminophen (PERCOCET) 7.5-325 MG tablet; Take 1 tablet by mouth daily as needed for Pain. Indications: Chronic Pain Arthritis of left knee -Stable at this time. Status post left knee surgical repair Primary osteoarthritis of right knee -Patient's symptoms mild. Encouraged to follow-up with the orthopedics surgeon to discuss next steps. For now, patient will continue with oxycodone acetaminophen as needed. He will continue with Celebrex from orthopedics also as needed. Surgical candidate and will follow-up with surgery. No red flag signs at this time. Failed cortisone injections. Mild intermittent asthma with acute exacerbation (HHS/HCC) -Currently with some wheezing. Symptoms mild. Refills on inhalers sent. -albuterol sulfate HFA 108 (90 Base) MCG/ACT inhaler; Inhale 2 puffs into the lungs every 6 (six) hours as needed for Wheezing. - ipratropium-albuterol (DUONEB) 0.5-2.5 (3) MG/3ML Solution; Take 3 mLs by nebulization every 6 (six) hours as needed. - predniSONE (DELTASONE) 20 MG tablet; Take 2 tablets (40 mg total) by mouth daily for 5 days. - fluticasone furoate-vilanterol (BREO ELLIPTA) 200-25 MCG/ACT inhaler; Inhale 1 puff into the lungs daily. Vitamin D deficiency - vitamin D2, ergocalciferol, (DRISDOL) 1.25 mg capsule; Take 1 capsule (50,000 Units total) by mouth every 7 days. Need for prophylactic vaccination against Streptococcus pneumoniae (pneumococcus) - [40023] Prevnar 13 (Pneumococcal) Abnormal finding of blood chemistry, unspecified - CBC W/DIFF AUTOMATED; Future - CBC W/DIFF AUTOMATED Encounter for screening for malignant neoplasm of prostate - PROSTATE SPECIFIC ANTIGEN,SCREENING; Future - PROSTATE SPECIFIC ANTIGEN,SCREENING Drug therapy - DRUG SCREEN, URINE; Future - DRUG SCREEN, URINE I personally spent a total of 60 minutes on the day of the encounter. This includes ghaa-pf-sjus and fab-ducq-wn-face time I provided on the day of the encounter & excludes time spent performing separately reportable services. DRAGON: This dictation was at least in part performed using Bracketr and there may be some inherent flaws in this business management manager due to the nature of this program. MD Soledad GO MD Internal Medicine [facility], [facility]. R ASSISTANT documented in this encounter Plan of Treatment Upcoming Encounters Date Type Department Care Team (Late st Contact Info) Description 08/19/2024 9:00 AM ELDER ASSISTANT Office Visit [facility] Multispecialty Care - [place] [address] [place] [address] [address] [place] [address] Soledad Lucas MD [address] [facility] [address] [place] [address] 12/16/2024 10:40 AM CDT Office Visit [facility] Multispecialty Care - [facility] [address] [facility] [place] [address] [place] Oakley MD [address] [facility] [place] [address] documented as of this encounter Procedures Procedure Name Priority Date/Time Associated Diagnosis Comments TSH W/REFLEX Routine 08/16/2023 11:44 AM ELDER ASSISTANT Annual physical exam General medical exam HEMOGLOBIN, GLYCOSYLATED Routine 08/16/2023 11:44 AM ELDER ASSISTANT Annual physical exam General medical exam LIPID PANEL Routine 08/16/2023 11:44 AM ELDER ASSISTANT Annual physical exam General medical exam PROSTATE SPECIFIC ANTIGEN,SCREENING Routine 08/16/2023 11:43 AM ELDER ASSISTANT Annual physical exam General medical exam Encounter for screening for malignant neoplasm of prostate COMPREHENSIVE METABOLIC PANEL Routine 08/16/2023 11:43 AM ELDER ASSISTANT Annual physical exam General medical exam CBC W/DIFF AUTOMATED Routine 08/16/2023 11:43 AM ELDER ASSISTANT Annual physical exam General medical exam Abnormal finding of blood chemistry, unspecified VENIPUNC ARM DRAW Routine 08/16/2023 11: 24 AM ELDER ASSISTANT Annual physical exam General medical exam URINALYSIS AUTO DIP Routine 08/16/2023 Annual physical exam General medical exam documented in this encounter Results * LIPID PANEL (08/16/2023 11:44 AM ELDER ASSISTANT) CHOLESTEROL 147 <200 MG/DL 08/17/2023 10:57 AM ELDER ASSISTANT [facility] TRIGLYCERIDES 40 <150 MG/DL 08/17/2023 10:57 AM [facility] HDL 80 >40 MG/DL 08/17/2023 10:57 AM ELDER ASSISTANT [facility] LDL-C 59 <100 MG/DL 08/17/2023 10:57 AM ELDER ASSISTANT [facility] VLDL CALCULATION 8 5 - 28 MG/DL 08/17/2023 10:57 AM ELDER ASSISTANT [facility] CHOL/HDL RATIO 1.8 0.0 - 4.0 08/17/2023 10:57 AM ELDER ASSISTANT [facility] LDL/HDL 0.7 0.41 - 2.13 08/17/2023 10:57 AM ELDER ASSISTANT [facility] NON HDL CHOLESTEROL 67 <140 MG/DL 08/17/2023 10:57 AM ELDER ASSISTANT [facility] 08/16/2023 11:4 4 AM ELDER ASSISTANT us Soledad Lucas MD LABORATORY Final Result Performing Organization Address City/[facility]/ZIP Co de Phone Number [facility] [address] [place] [address], * TSH W/REFLEX (08/16/2023 11:44 AM ELDER ASSISTANT) TSH 1.875 0.358 - 3.740 uIU/ML 08/17/2023 10:57 AM ELDER ASSISTANT [facility] 08/16/2023 11:4 4 AM ELDER ASSISTANT us Soledad Lucas MD LABORATORY Final Result [facility] [address], * (ABNORMAL) HEMOGLOBIN, GLYCOSYLATED (08/16/2023 11:44 AM ELDER ASSISTANT) HGB A1C 5.6 4.5 - 6.2 % 08/16/2023 8:19 PM ELDER ASSISTANT [facility] ESTIMATED AVG GLUCOSE 114(H) 74 - 106 MG/DL 08/16/2023 8:19 PM ELDER ASSISTANT [facility] 08/16/2023 11:4 4 AM ELDER ASSISTANT us Soledad Lucas MD LABORATORY Final Result Performing Organization Address [facility] Co de Phone Number [address] [address], * PROSTATE SPECIFIC ANTIGEN,SCREENING (08/16/2023 11:43 AM ELDER ASSISTANT) Pathologist [facility] [place] PSA 3.45 <4.00 NG/ML 08/16/2023 7:44 PM ELDER ASSISTANT [facility] Comment: ASSAY PERFORMED BY [employer]MMUNOASSAY METHODOLOGY USING [employer] DIMENSION REAGENT. PATIENT RESULTS DETERMINED BY ASSAYS FROM DIFFERENT MANUFACTURERS AND/OR BY DIFFERENT METHODS MAY NOT BE COMPARABLE. 08/16/2023 11:4 3 AM ELDER ASSISTANT us Soledad Lucas MD LABORATORY Final Result Performing Organization Address City/[facility] Co de Phone Number [place] [phone] [place] [address], * (ABNORMAL) CBC W/DIFF AUTOMATED (08/16/2023 11:43 AM ELDER ASSISTANT) Pathologist [facility] [place] WBC 4.79 4.00 - 10.80 x10'3/uL 08/16/2023 8:03 PM ELDER ASSISTANT [facility] RBC 5.05 4.50 - 6.10 x10'6/uL 08/16/2023 8:03 PM [facility] HGB 13.8 13.0 - 18.0 G/DL 08/16/2023 8:03 PM [facility] HCT 43.3 37.0 - 52.0 % 08/16/2023 8:03 PM [facility] MCV 85.7 78.0 - 100.0 FL 08/16/2023 8:03 PM [facility] MCH 27.3 27.0 - 31.0 PG 08/16/2023 8:03 PM [facility] MCHC 31.9(L) 33.0 - 36.0 G/DL 08/16/2023 8:03 PM [facility] RDW 13.6 11.5 - 14.5 % 08/16/2023 8:03 PM [facility] PLT 254 150 - 350 x10'3/uL 08/16/2023 8:03 PM [facility] MPV 10.4 7.4 - 10.4 FL 08/16/2023 8:03 PM [facility] DIFFERENTIAL TYPE AUTOMATED DIFFERENTIAL 08/16/2023 8:03 PM [facility] NEUTROPHILS % 55.4 % 08/16/2023 8:03 PM [facility] LYMPHOCYTES % 23.2 % 08/16/2023 8:03 PM [facility] MONOCYTES % 14.8 % 08/16/2023 8:03 PM [facility] EOSINOPHILS % 5.8 % 08/16/2023 8:03 PM [facility] BASOPHILS % 0.6 % 08/16/2023 8:03 PM [facility] IMMATURE GRANS % 0.2 % 08/16/2023 8:03 PM [facility] ABS. NEUTROPHILS 2.65 1.60 - 8.30 x10'3/uL 08/16/2023 8:03 PM [facility] ABS. LYMPHOCYTES 1.11 0.80 - 4.70 x10'3/uL 08/16/2023 8:03 PM ELDER ASSISTANT [facility] ABS. MONOCYTES 0.71 0.00 - 1.50 x10'3/uL 08/16/2023 8:03 PM [facility] ABS. EOSINOPHILS 0.28 0.00 - 0.40 x10'3/uL 08/16/2023 8:03 PM [facility] ABS. BASOPHILS 0.03 0.00 - 0.20 x10'3/uL 08/16/2023 8:03 PM [facility] ABS. IMMATURE GRANULOCYTES 0.01 0.00 - 0.03 x10'3/uL 08/16/2023 8:03 PM [facility] 08/16/2023 11:4 3 AM ELDER ASSISTANT Soledad Lucas MD LABORATORY Final Result [facility] [address] [place] [address], * (ABNORMAL) COMPREHENSIVE METABOLIC PANEL (08/16/2023 11:43 AM ELDER ASSISTANT) [facility] SODIUM S/P/B 139 136 - 145 MMOL/L 08/16/2023 8:04 PM [facility] POTASSIUM S/P/B 4.1 3.5 - 5.1 MMOL/L 08/16/2023 8:04 PM [facility] CHLORIDE S/P/B 103 98 - 107 MMOL/L 08/16/2023 8:04 PM [facility] CO2 25.8 21 - 32 MMOL/L 08/16/2023 8:04 PM [facility] GLUCOSE 106(H) 70 - 99 MG/DL 08/16/2023 8:04 PM [facility] BUN 10 7 - 18 MG/DL 08/16/2023 8:04 PM [facility] CREATININE S/P/B 1.00 0.70 - 1.30 MG/DL 08/16/2023 8:04 PM [facility] CALCIUM S/P/B 9.3 8.4 - 10.5 MG/DL 08/16/2023 8:04 PM [facility] BILIRUBIN TOTAL S/P/B 1.0 0.2 - 1.0 MG/DL 08/16/2023 8:04 PM [facility] ALKALINE PHOSPHATASE S/P/B 83 45 - 115 U/L 08/16/2023 8:04 PM [facility] AST 15 15 - 37 U/L 08/16/2023 8:04 PM [facility] ALT 18 16 - 63 U/L 08/16/2023 8:04 PM [facility] TOTAL PROTEIN S/P/B 7.4 6.4 - 8.2 G/DL 08/16/2023 8:04 PM [facility] ALBUMIN S/P/B 3.8 3.4 - 5.0 G/DL 08/16/2023 8:04 PM [facility] ANION GAP 10.2 5 - 15 MMOL/L 08/16/2023 8:04 PM [facility] Comment:REFERENCE RANGE NOT ESTABLISHED OSMOLALITY (CALC) 287 MOSM/KG 024 8:04 PM [facility] Comment:REFERENCE RANGE NOT ESTABLISHED GFR ESTIMATE 84(L) >90 ML/MIN/1. 73 M2 08/16/2023 8:04 PM [facility] GFR NOTES GFR REFERENCE S: 08/16/2023 8:04 PM [facility] Comment: THE ESTIMATED GFR IS CALCULATED USING THE 2020 CKD-EPI EQUATION. THE FOLLOWING CATEGORIES FOR GRADING RENAL FUNCTION ARE RECOMMENDED BY THE INTERNATIONAL SOCIETY OF NEPHROLOGY (KDIGO 2012 CLINICAL PRACTICE GUIDELINE). G1,NORMAL OR HIGH: >89 ml/min/1.73 m2 G2,MILDLY DECREASED: 60-89 ml/min/1.73 m2 G3A,MILDLY TO MODERATELY DECREASED: 45-59 ml/min/1.73 m2 G3B,MODERATELY TO SEVERELY DECREASED: 30-44 ml/min/1.73 m2 G4,SEVERELY DECREASED: 15-29 ml/min/1.73 m2 G5,KIDNEY FAILURE: <15 ml/min/1.73 m2 08/16/2023 11:4 3 AM ELDER ASSISTANT Soledad Lucas MD LABORATORY Final Result -[facility] [address] [place] [address], * (ABNORMAL) URINALYSIS AUTO DIP (08/16/2023) COLOR (U) DARK YELLOW YELLOW MG-[address], [place] TRANSPARENCY CLEAR CLEAR MG-[address], [place] GLUCOSE (U) NEGATIVE NEGATIVE MG/DL MG-[address], [place] BILIRUBIN (U) NEGATIVE NEGATIVE MG-[address], [place] KETONES MG/DL (U) NEGATIVE NEGATIVE MG/DL MG-[address], [place] SPECIFIC GRAVITY (U) 1.030 1.001 - 1.035 MG-[address], [place] BLOOD (U) TRACE (Non Hemolyzed, Intact)(A) NEGATIVE MG-[address], [place] U PH 6.5 5.0 - 9.0 MG-[address], [place] PROTEIN (U) 1+ (30)(A) NEGATIVE mg/dL MG-[address], [place] UROBILINOGEN 0.2 0.2 - 1.0 EU/dL = mg/dL MG-[address], [place] NITRITES NEGATIVE NEGATIVE MG/DL MG-[address], [place] LEUKOCYTES (U) NEGATIVE NEGATIVE MG-[address], [place] URINE SPECIMEN OBTAINED BY CLEAN CATCH PROCEDURE / Unknown 08/16/2023 Soledad Lucas MD URINE ORDERABLES Final Result MG-[address], [place] [address] [facility] [address] [place] [address], documented in this encounter Visit Diagnoses Diagnosis Annual physical exam- Primary Routine general medical examination at a health care facility General medical exam Unspecified general medical examination Screening for diabetes mellitus Screening for hyperlipidemia Screening for lipoid disorders Screening for hypothyroidism Screening for thyroid disorder Screening for malignant neoplasm of prostate Primary hypertension Unspecified essential hypertension Mixed hyperlipidemia Chronic bilateral low back pain with left-sided sciatica Cervical radiculopathy Brachial neuritis or radiculitis nos Arthritis of left knee Unspecified arthropathy, lower leg Primary osteoarthritis of right knee Primary localized osteoarthrosis, lower leg Mild intermittent asthma with acute exacerbation (HHS/HCC) Unspecified asthma, with exacerbation Vitamin D deficiency Unspecified vitamin D deficiency Need for prophylactic vaccination against Streptococcus pneumoniae (pneumococcus) Need for prophylactic vaccination against streptococcus pneumoniae (pneumococcus) Abnormal finding of blood chemistry, unspecified Encounter for screening for malignant neoplasm of prostate Special screening for malignant neoplasm of prostate Drug therapy Encounter for long-term (current) use of other medications documented in this encounter Additional Health Concerns Assessment Noted Time PHQ-9 Depression Total Score: 1 09/29/19 22 10:03 AM ELDER ASSISTANT documented as of this encounter Care Teams Javascript Application Developer Relationship Specialty Start Date End Date Soledad Lucas MD [address] [facility] [address] [place] [address] PCP - General INTERNAL MEDICINE 09/29/21 documented as of this encounter
--- OUTSIDE RECORDS SUMMARY | 2024-08-03 03:24 | XMS_ITS | Encounter Summary ---
Author Organization [facility] - [facility] Address [address] [place] [address]. [place], [place] [address] [place] [address] Care Team Providers Care Farm Field Manager Name Role Phone Soledad Lucas MD Primary Care Provider [phone] Reason for Visit * Reason Onset Date Comments Medication Request 05/22/2023 Encounter Details Date Type Department Care Team (Late st Contact Info) Description 05/22/2023 Telephone [facility] Medical Group Multispecialty Care - [place] [address] [address] [place] [address] [place] [address] [place] [address] [address] [place] [address] Medication Request Social History Tobacco Use Types Packs/Day [...] Progress Notes * Soledad Lucas MD - 05/22/2023 5:45 PM CDT Albuterol inhaler thanks. * Koko Brand - 05/22/2023 9:53 AM CDT Patient called and requested a refill of his Albuterol Inhaler to be sent to [facility] in [place], [place]. Thanks. documented in this encounter Plan of Treatment Upcoming Encounters Date Type Department Care Team (Late st Contact Info) Description 08/19/2024 9:00 AM TAXI PROPRIETOR [facility] [place] [address] [address] [place] [address] Soledad Lucas MD [address] [address] 12/16/2024 10:40 AM CDT [facility] [address] [facility] [address] [place] [address] Ramsey Oakley MD [address] [facility] [address] [place] [address] documented as of this encounter Visit Diagnoses Diagnosis Mild intermittent asthma with acute exacerbation ([facility]) Unspecified asthma, with exacerbation documented in this encounter Additional Health Concerns Assessment Noted Time PHQ-9 Depression Total Score: 1 09/29/19 22 10:03 AM TAXI PROPRIETOR documented as of this encounter Care Teams Farm Field Manager Relationship Specialty [place] [address] [place] [address] PCP - General INTERNAL MEDICINE 09/29/21 documented as of this encounter
--- OUTSIDE RECORDS SUMMARY | 2024-08-03 03:24 | XMS_ITS | Encounter Summary ---
Author Organization [facility] Address [address] [place] [address]. [place], [place] [address] [place] [address] Care Team Providers Care Nutritionists Name Role Phone Soledad Lucas MD Primary Care Provider [phone] Reason for Visit * Reason Comments Image (SCAN) Procedure (SCAN) Lab (SCAN) Pathology (SCAN) Encounter Details Date Type Department Care Team (Late Contact Info) Description 04/24/2023 Scan [employer] INFO SRVCS Scanned, Doc Med Group Image (SCAN); Procedure (SCAN); Lab (SCAN); Pathology (SCAN) Social History Tobacco Use Types Packs/Day [...] Upcoming Encounters Date Type Department Care Team ([facility] Contact Info) Description 08/19/2024 9:00 AM ACTUARIAL SCIENCE TEACHER Office Visit [facility] Medical Group Multispecialty Care - [place] [address] [address] [place] [address] Soledad Lucas MD [address] [place] [address] 12/16/2024 10:40 AM CDT Office Visit [facility] Medical [facility] Multispecialty Care - [facility] 3 [facility] [address] [place] [address] Ramsey Oakley MD [address] [facility] [address] [place] [address] documented as of this encounter Procedures Procedure Name Priority Date/Time Associated Diagnosis Comments PATHOLOGY GENERIC (SCAN ORDER) 04/24/2023 OUTSIDE LAB (SCAN ORDER) 04/24/2023 IMAGE GENERIC 04/24/2023 PROCEDURE GENERIC (SCAN ORDER) 04/24/2023 documented in this encounter Results * PROCEDURE GENERIC (04/24/2023) 04/24/2023 us [facility] Scanned SCANNING Final Resu lt * PATHOLOGY GENERIC (04/24/2023) 04/24/2023 us [facility] Scanned SCANNING Final Resu lt * OUTSIDE LAB (SCAN) (04/24/2023) 04/24/2023 us [facility] Scanned SCANNING Final Resu lt * IMAGE GENERIC (04/24/2023) Anatomical Region Laterality Modality Other 04/24/2023 us [facility] Scanned SCANNING Final Resu lt documented in this encounter Visit Diagnoses Not on filedocumented in this encounter Additional Health Concerns Infection Onset Date Last Indicated Resolved Time COVID-19 Rule Out 09/24/2023 09/24/2023 09/24/2023 3:59 PM ACTUARIAL SCIENCE TEACHER Assessment Noted Time PHQ-9 Depression Total Score: 1 09/29/19 10:03 AM ACTUARIAL SCIENCE TEACHER documented as of this encounter Care Teams Nutritionists Relationship Specialty Start Date End Date Soledad Lucas MD [address] [address] PCP - General INTERNAL MEDICINE 09/29/21 documented as of this encounter
--- OUTSIDE RECORDS SUMMARY | 2024-08-03 03:24 | XMS_ITS | Encounter Summary ---
Author Organization [facility] - [facility] Address [address] [place] [address]. [place] [address] Care Team Providers Care Block Press Operator Name Role Phone Soledad Lucas MD Primary Care Provider [phone] Reason for Visit * Reason Onset Date Comments Question 06/09/2023 Encounter Details Date Type Department Care Team (Late st Contact Info) Description 06/09/2023 Telephone [facility] Medical Group Multispecialty Care - [place] [address] [address] [place] [address] Soledad Lucas MD [address] [place] [address] [address] [place] [address] Question Social History Tobacco Use [...] encounter Progress Notes * Jatin Cortez - 06/19/2023 8:[address] Lucas pls call pt regarding his cholesterol, and a new inhaler he is wheezing and has a cough. IC BALANCER * Jatin Cortez - 06/14/2023 11:33 AM CST Pt called today and stated he needs an inhaler not the one that is red and white something a lot stronger the round one? Also he would like the doctor to discuss his cholesterol and give him a call. IC BALANCER * Koko Brand - 06/12/2023 10:48 AM CST Patient is scheduled for physical. IC BALANCER * Soledad Lucas MD - 06/09/2023 5:55 PM CDT I called and spoke to patient. Has run out of atorvastatin. 90-day supply sent. Please schedule patient for his physical on August 16, 2023 at 10:20 AM thank you. * Jatin Cortez - 06/09/2023 8:38 AM CDT Pt is calling today regarding his cholesterol, he would like a f/u call on direction regarding thisissue [phone]. documented in this encounter Plan of Treatment Upcoming Encounters Date Type Department Care Team (Late st Contact Info) Description 08/19/2024 9:00 AM STATIC BALANCER [facility] [place] [address] [address] [place] [address] Soledad Lucas MD [address] [place] [address] [address] [place] [address] 12/16/2024 10:40 AM CDT Office Visit [facility] Care - [facility] 3 [facility] [place] [address] Ramsey Oakley MD 3 [facility] [address] [place] [address] documented as of this encounter Visit Diagnoses Diagnosis Mixed hyperlipidemia Left-sided chest pain documented in this encounter Additional Health Concerns Assessment Noted Time PHQ-9 Depression Total Score: 1 09/29/19 22 10:03 AM STATIC BALANCER documented as of this encounter Care Teams Block Press Operator Relationship Specialty Start Date End Date Soledad Lucas MD [address] [address] PCP - General INTERNAL MEDICINE 09/29/21 documented as of this encounter
--- OUTSIDE RECORDS SUMMARY | 2024-08-03 03:24 | XMS_ITS | Encounter Summary ---
Author Organization [facility] - [facility] Address [address] [place] [address]. [place], [place] [address] [place] [address] Care Team Providers Care Support Clerk Name Role Phone Soledad Lucas MD Primary Care Provider [phone] Reason for Visit * Reason Onset Date Comments Follow Up Call 08/22/2023 Encounter Details Date Type Department Care Team (Late st Contact Info) Description 08/22/2023 Telephone [facility] Medical Group Multispecialty Care - [place] [address] [address] [place] [address] Soledad Lucas MD [address] [place] [address] [address] [place] [address] Follow Up Call Social History [...] Progress Notes * Monica Bro MA - 08/24/2023 8:23 AM CST I have tried to call patient 2 times and he hasn't answered and he doesn't have a voicemail set up ERTY CLAIMS ADJUSTER * Soledad Lucas MD - 08/22/2023 5:10 PM CST Please call patient and have him oyster picker urine drug screen to have done at [facility]. His previous urine given was credited. Need to run again. Order written for pickup. Thanks. ERTY CLAIMS ADJUSTER * Soledad Lucas MD - 08/22/2023 5:10 PM CST ----- Message from Urszula Blackwell sent at 08/22/2023 5:05 PM PROPERTY CLAIMS ADJUSTER ----- Regarding: CANCELLED AND CREDITED The order for the Urine Drug Screen released on 08-16-23 has been cancelled and credited on this patient.. Please enter a new order and send specimen directly to [facility] if testing is still needed. Thank you ERTY CLAIMS ADJUSTER documented in this encounter Plan of Treatment Upcoming Encounters Date Type Department Care Team (Late st Contact Info) Description 08/19/2024 9:00 AM PROPERTY CLAIMS ADJUSTER Office Visit [facility] Multispecialty Care - [place] [address] [address] [place] [address] Soledad Lucas MD [address] [place] [address] 12/16/2024 10:40 AM CDT Office Visit [facility] Medical [facility] Multispecialty Care - [facility] [address] [facility] [place] [address] Ramsey Oakley MD 3 [facility] [address] [place] [address] documented as of this encounter Procedures Procedure Name Priority Date/Time Associated Diagnosis Comments DRUG SCREEN COMPREHENSIVE Routine 08/22/2023 5:11 PM PROPERTY CLAIMS ADJUSTER documented in this encounter Results * (ABNORMAL) DRUG SCREEN COMPREHENSIVE (08/22/2023 5:11 PM PROPERTY CLAIMS ADJUSTER) Comment: [facility] Comment: ?? * These results are for medical treatment only. ??* ?? * Analysis was performed as non-forensic testing. * TEST RESULT: DRUG(S) DETECTED:(A) [facility] Comment: MARIJUANA METABOLITE BY IMMUNOASSAY(A ) [facility] Comment: [facility] Comment:Acetaminophen Comment: [facility] Comment: PATIENT RESULTS ARE INDICATED ABOVE. ??URINE WAS TESTED FOR THE FOLLOWING: ANALGESICS ? BARBITURATES ? PHENCYCLIDINE ANTIARRYTHMICS ? BENZODIAZEPINE METABS. ? SEDATIVES/HYPNOTICS ANTICONVULSANTS ?CANNABINOIDS ? STIMULANTS ANTIDEPRESSANTS ?COCAINE METABOLITE ? VOLATILES ANTIHISTAMINES ? OPIATES/NARCOTICS ANTIPSYCHOTICS ? MUSCLE RELAXANTS PLEASE REFER TO CURRENT DIRECTORY OF SERVICES FOR SPECIFICS ON WHICH DRUGS ARE TESTED. 08/22/2023 5:11 PM PROPERTY CLAIMS ADJUSTER 08/26/2023 3:34 AM PROPERTY CLAIMS ADJUSTER Narrative Resulting Agency Comment Performing Organization Information: ?Site ID: [id number] ?Name: [facility] ?Address: [address] [place] [address] ?Director: Dr. Michi Jones us Soledad Lucas MD URINE ORDERABLES Final Result [facility] [address] [place] [address], documented in this encounter Visit Diagnoses Diagnosis Drug therapy- Primary Encounter for long-term (current) use of other medications documented in this encounter Additional Health Concerns Assessment Noted Time PHQ-9 Depression Total Score: 1 09/29/19 22 10:03 AM PROPERTY CLAIMS ADJUSTER documented as of this encounter Care Teams Support Clerk Relationship Specialty Start Date End Date Soledad Lucas MD [facility] [address] PCP - General INTERNAL MEDICINE 09/29/21 documented as of this encounter
--- OUTSIDE RECORDS SUMMARY | 2024-08-03 03:24 | XMS_ITS | Encounter Summary ---
Author Organization [facility] Address [address] [place] [address]. [place], [place] [address] [place] [address] Care Team Providers Care Biomed Tech Name Role Phone Soledad Lucas MD Primary Care Provider [phone] Reason for Visit * Reason Comments Image (SCAN) Encounter Details Date Type Department Care Team (Latest Contact Info) Description 06/12/2023 Scan [facility] INFO SRVCS Scanned, Doc Med [...] st Contact Info) Description 08/19/2024 9:00 AM YOUTH COORDINATOR Office Visit [facility] Medical Group Multispecialty Care - [place] [address] [address] [place] [address] Soledad Lucas MD [address] [place] [address] [address] [place] [address] 12/16/2024 10:40 AM CDT Office Visit [facility] Medical Group Multispecialty Care - [facility] [address] [facility] [address] [place] [address] Ramsey Oakley MD [address] [place] [address] documented as of this encounter Procedures Procedure Name Priority Date/Time Associated Diagnosis Comments IMAGE GENERIC 06/12/2023 documented in this encounter Results * IMAGE GENERIC (06/12/2023) Anatomical Region Laterality Modality Other 06/12/2023 us [facility] Scanned SCANNING Final Resu lt documented in this encounter Visit Diagnoses Not on filedocumented in this encounter Additional Health Concerns Infection Onset Date Last Indicated Resolved Time COVID-19 Rule Out 09/24/2023 09/24/2023 09/24/2023 3:59 PM YOUTH COORDINATOR Assessment Noted Time PHQ-9 Depression Total Score: 1 09/29/19 22 10:03 AM YOUTH COORDINATOR documented as of this encounter Care Teams Biomed Tech Relationship Specialty Start Date End Date Soledad Lucas MD [address] [facility] [address] [place] [address] PCP - General INTERNAL MEDICINE 09/29/21 documented as of this encounter
--- OUTSIDE RECORDS SUMMARY | 2024-08-03 03:24 | XMS_ITS | Encounter Summary ---
Author Organization [facility] Address [address] [place] [address]. [place], [place] [address] [place] [address] Care Team Providers Care Geomatics Professor Name Role Phone Soledad Lucas MD Primary Care Provider [phone] Encounter Details Date Type Department Care Team (Latest Contact Info) Description 06/02/2023 Travel Social History Tobacco Use Types Packs/Day [...] st Contact Info) Description 08/19/2024 9:00 AM CONTINUOUS MINING MACHINE COAL MINER Office Visit [facility] Medical [facility] Multispecialty Care - [place] [address] [address] [place] [address] Soledad Lucas MD [address] [place] [address] [address] [place] [address] 12/16/2024 10:40 AM CDT Office Visit [facility] Medical [facility] Multispecialty [address] [place] [address] Ramsey Oakley MD [facility] [address] [place] [address] documented as of this encounter Visit Diagnoses Not on filedocumented in this encounter Additional Health Concerns Assessment Noted Time PHQ-9 Depression Total Score: 1 09/29/19 22 10:03 AM CONTINUOUS MINING MACHINE COAL MINER documented as of this encounter Care Teams Geomatics Professor Relationship Specialty Start Date End Date Soledad Lucas MD [address] [address] PCP - General INTERNAL MEDICINE 09/29/21 documented as of this encounter
--- OUTSIDE RECORDS SUMMARY | 2024-08-03 03:24 | XMS_ITS | Encounter Summary ---
Author Organization [facility] Address [address] [place] [address]. [place], [place] [address] [place] [address] Care Team Providers Care Oil Gas And Pipe Tester Name Role Phone Soledad Lucas MD Primary Care Provider [phone] Encounter Details Date Type Department Care Team (Latest Contact Info) Description 08/16/2023 Travel Social History Tobacco Use Types Packs/Day [...] st Contact Info) Description 08/19/2024 9:00 AM OPTOELECTRONIC TECHNICIAN Office Visit [facility] Multispecialty Care - [place] [address] [address] [place] [address] Soledad Lucas MD [address] [place] [address] [address] [place] [address] 12/16/2024 10:40 AM CDT Office Visit [facility] Medical [facility] Multispecialty [address] [place] [address] Ramsey Oakley MD [address] [facility] [address] [place] [address] documented as of this encounter Visit Diagnoses Not on filedocumented in this encounter Additional Health Concerns Assessment Noted Time PHQ-9 Depression Total Score: 1 09/29/19 22 10:03 AM OPTOELECTRONIC TECHNICIAN documented as of this encounter Care Teams Oil Gas And Pipe Tester Relationship Specialty Start Date End Date Soledad Lucas MD [address] [address] PCP - General INTERNAL MEDICINE 09/29/21 documented as of this encounter
--- OUTSIDE RECORDS SUMMARY | 2024-08-03 03:24 | XMS_ITS | Encounter Summary ---
Author Organization [facility] - [facility] Address [address] [place] [address]. [address] [address] Care Team Providers Care Code Enforcement Supervisor Name Role Phone Soledad Lucas MD Primary Care Provider [phone] Reason for Visit * Reason Onset Date Comments Medication 08/15/2023 Encounter Details Date Type Department Care Team (Late st Contact Info) Description 08/15/2023 Telephone [facility] Medical Group Multispecialty Care - [place] [address] [address] [place] [address] Soledad Lucas MD [address] [place] [address] [address] [place] [address] Medication Social History Tobacco Use [...] encounter Progress Notes * Koko Brand - 08/15/2023 9:56 AM CST Patient called and requested a refill of his BP Medications be sent to: [facility] [address] RITIES TELLER documented in this encounter Plan of Treatment Upcoming Encounters Date Type Department Care Team (Late st Contact Info) Description 08/19/2024 9:00 AM SECURITIES TELLER [facility] [place] [address] [address] [place] [address] [place] [address] [place] [address] 12/16/2024 10:40 AM CDT [facility] [address] [facility] [address] [place] [address] Ramsey Oakley MD 3 [facility] [address] [place] [address] documented as of this encounter Visit Diagnoses Diagnosis Primary hypertension Unspecified essential hypertension documented in this encounter Additional Health Concerns Assessment Noted Time PHQ-9 Depression Total Score: 1 09/29/19 10:03 AM SECURITIES TELLER documented as of this encounter Care Teams Code Enforcement Supervisor Relationship Specialty Start Date End Date Soledad Lucas MD [address] [place] [address] PCP - General INTERNAL MEDICINE 09/29/21 documented as of this encounter
--- OUTSIDE RECORDS SUMMARY | 2024-08-03 03:24 | XMS_ITS | Encounter Summary ---
Author Organization [facility] Address [address] [place] [address]. [place], [place] [address] [place] [address] Care Team Providers Care Pm Head Cook Name Role Phone Soledad Lucas MD Primary Care Provider [phone] Reason for Referral * Consultation (Urgent) - Closed Specialty Diagnoses / Procedures Referred By Prasanth santillan Referred To Contact ORTHOPAEDICS Diagnoses Orthopedic aftercare Procedures OFFICE/OUTPATIENT NEW LOW MDM 30-44 MINUTES OFFICE/OUTPT VISIT,NEW,LEVL IV OFFICE/OUTPT VISIT,NEW,LEVL V OFFICE/OUTPT VISIT,EST,LEVL III OFFICE/OUTPT VISIT,EST,LEVL IV OFFICE/OUTPT VISIT,EST,LEVL V Soledad Lucas MD 1188 [facility] 157 [place] [address] Phone: tel: fax: [facility] 6810 [facility] 162 [facility] 10 [place] [address] Phone: tel:[phone] fax: Referral ID Status Reason Start Date Expiration Date V isits Requested Visits Authorized [id number] Closed Specialty Services 05/15/2023 05/15/2024 99 99 Scheduling Instructions Urgent referral needed to [facility]. Patient has an appointment on 05/15/2023. Thank you. Reason for Visit * Reason Onset Date Comments Orders 05/15/2023 Encounter Details Date Type Department Care Team (Late st Contact Info) Description 05/15/2023 [facility]phone [facility] [place] [address] [address] [place] [address] Soledad Lucas MD [facility] [address] [address] Orders Social History Tobacco Use Types Packs/Day [...] Progress Notes * Soledad Lucas MD - 05/15/2023 6:35 PM CDT Urgent Ortho referral placed. documented in this encounter Plan of Treatment Upcoming Encounters Date Type Department Care Team (Late st Contact Info) Description 08/19/2024 9:00 AM EMPLOYMENT COUNSELOR [facility] [place] [address] [address] [place] [address] Soledad Lucas MD [address] [address] 12/16/2024 10:40 AM CDT [facility] - [address] [place] [address] Ramsey Oakley MD 3 [facility] [address] [place] [address] Scheduled Referrals Name Type Priority Associated Diagnoses Orde r Schedule Ambulatory referral to Orthopedics (OTHER) Referral Routine Orthopedic aftercare Ordered: 05/15/2023 documented as of this encounter Visit Diagnoses Diagnosis Orthopedic aftercare- Primary Unspecified orthopedic aftercare documented in this encounter Additional Health Concerns Assessment Noted Time PHQ-9 Depression Total Score: 1 09/29/19 22 10:03 AM EMPLOYMENT COUNSELOR documented as of this encounter Care Teams Pm Head Cook Relationship Specialty Start Date End Date Soledad Lucas MD [address] [address] PCP - General INTERNAL MEDICINE 09/29/21 documented as of this encounter
--- OUTSIDE RECORDS SUMMARY | 2024-08-03 03:24 | XMS_ITS | Encounter Summary ---
Author Organization [facility] Address [address] [place] [address]. [address] [address] Care Team Providers Care Policy Director Name Role Phone Soledad Lucas MD Primary Care Provider [phone] Reason for Visit * Reason Onset Date Comments Information 05/31/2023 Encounter Details Date Type Department Care Team (Late st Contact Info) Description 05/31/2023 Telephone [facility] Multispecialty Care - [place] [address] [address] [place] [address] Soledad Lucas MD [address] [place] [address] 157 [place] [address] Information Social History Tobacco Use [...] encounter Progress Notes * Koko Brand - 06/06/2023 9:24 AM CDT Patient was seen by Criss on 06/02/23. * Soledad Lucas MD - 06/04/2023 7:08 PM CDT Due for a physical- kindly call and schedule for some time thanks. * Koko Brand - 05/31/2023 11:17 AM CDT Patient called and stated that upon arriving at [facility], his labs were drawn and left on table in his room and stated that he was told his labs were fine . He was given IV Steroids and sent home with Prednisone prescription. Patient is asking if there is anything that Dr. Lucas would suggest due to him still having itchy throat, cough and wheezing. Patient did state he is feeling a little better at this time but still having symptoms. documented in this encounter Plan of Treatment Upcoming Encounters Date Type Department Care Team (Late st Contact Info) Description 08/19/2024 9:00 AM CONTENT PRODUCTION SPECIALIST [facility] [place] [address] [address] [place] [address] [place] [address] [place] [address] [address] [place] [address] 12/16/2024 10:40 AM CDT Office Visit [facility] Care - [facility] 3 [facility] [address] [place] [address] Ramsey Oakley MD 3 [facility] [address] [place] [address] documented as of this encounter Visit Diagnoses Not on filedocumented in this encounter Additional Health Concerns Assessment Noted Time PHQ-9 Depression Total Score: 1 09/29/19 22 10:03 AM CONTENT PRODUCTION SPECIALIST documented as of this encounter Care Teams Policy Director Relationship Specialty Start Date End Date Soledad Lucas MD [address] [address] PCP - General INTERNAL MEDICINE 09/29/21 documented as of this encounter
--- OUTSIDE RECORDS SUMMARY | 2024-08-03 03:24 | XMS_ITS | Encounter Summary ---
Author Organization [facility] Address [address] [place] [address]. [place], [place] [address] [place] [address] Care Team Providers Care Medical Reimbursement Specialist Name Role Phone Soledad Lucas MD Primary Care Provider [phone] Reason for Visit * Reason Comments Wheezing Encounter Details Date Type Department Care Team (Late st Contact Info) Description 06/02/2023 10:00 AM CDT Office Visit [facility] Medical Group Multispecialty Care - [address] [place] [address] Criss Zendejas NP Wheezing Social History Tobacco Use Types Packs/Day Years [...] Sign Reading Time Taken Comments Blood Pressure 129/85 06/02/2023 10:18 AM CDT Pulse 75 06/02/2023 10:18 AM CDT Temperature 36.9 ??C (98.4 ??F) 06/02/2023 10:18 AM C DT Respiratory Rate 18 06/02/2023 10:18 AM CDT Oxygen Saturation 99% 06/02/2023 10:18 AM CDT Inhaled Oxygen Concentration - - Weight - - Height - - Body Mass Index - - documented in this encounter Patient Instructions * Attachments The following attachments cannot be sent through Care Everywhere. * Asthma Discharge Instructions, Adult (Malaysian) documented in this encounter Progress Notes * Criss Zendejas, BANKING REPRESENTATIVE - 06/02/2023 10:00 AM CDT OFFICE ACUTE VISIT Encounter Date: 06/02/2023 Chief Complaint: 61-year-old male presents for Wheezing . HPI: Patient presents today for wheezing. Symptoms started about 5-6 days ago. Patient was seen in [place] [facility] on 05/30/2023. Chest x-ray showed no acute cardiopulmonary abnormality. Patient was negative for influenza, RSV and COVID. Patient did receive a breathing treatment during his stay. Patient was started on a steroid burst and instructed to follow-up with his PCP. Patient has since used prednisone as prescribed. Using at home breathing treatment x 1. Albuterol at least couple times a day Noted underlying history of asthma. Smokes MJ. ER visit on 05/31 at [facility] and given pred burst and breathing treatment. Patient reports symptoms have improved but are still present. Patient does have 2 days left of his steroids. Reviewed medications with patient. Patient reports he discontinued his Breo related to running out of medication. Patient does continue to take albuterol as needed. He does use breathing treatment asneeded. Review of Systems Respiratory: Positive for cough, sputum production (intermittent, white), shortness of breath (at times) and wheezing. All other systems reviewed and are negative. Past Medical History: Diagnosis Date Arthritis Hypertension Current Outpatient Medications Medication Sig Dispense Refill azithromycin (ZITHROMAX Z-KEVIN) 250 MG tablet Take 2 tablets by mouth on day one then 1 daily for four days. 6 tablet 0 benzonatate (TESSALON) 200 MG capsule Take 1 capsule (200 mg total) by mouth 3 (three) times daily as needed for Cough. 20 capsule 0 fluticasone furoate-vilanterol (BREO ELLIPTA) 200-25 MCG/ACT inhaler Inhale 1 puff into the lungs daily. 60 each 2 albuterol sulfate HFA 108 (90 Base) MCG/ACT inhaler Inhale 2 puffs into the lungs every 6 (six) hours as needed for Wheezing. 18 g 5 atorvastatin 40 MG tablet Take 1 tablet (40 mg total) by mouth nightly at bedtime. (Patient not taking: Reported on 01/06/2023) 90 tablet 2 ipratropium-albuterol (DUONEB) 0.5-2.5 (3) MG/3ML Solution Take 3 mLs by nebulization every 6 (six)hours as needed. 360 mL 11 losartan-hydroCHLOROthiazide (HYZAAR) 50-12.5 MG tablet Take 1 tablet by mouth daily. 90 tablet 0 NEBULIZER DEVICE, DME, Take 1 Device by nebulization every 6 (six) hours as needed. Use for asthma attack. 1 Device 0 oxyCODONE-acetaminophen (PERCOCET) 7.5-325 MG tablet Take 1 tablet by mouth daily as needed for Pain. Indications: Chronic Pain 30 tablet 0 tiZANidine (ZANAFLEX) 4 MG tablet Take 1 tablet (4 mg total) by mouth 2 (two) times daily as needed. 30 tablet 1 vitamin D2, ergocalciferol, (DRISDOL) 1.25 mg capsule Take 1 capsule (50,000 Units total) by mouth every 7 days. 12 capsule 1 No current facility-administered medications for this visit. Review of patient's allergies indicates: Allergen Reactions Lisinopril Swelling Swollen lips Objective: Vitals: 06/02/23 1018 BP: 129/85 Pulse: 75 Resp: 18 Temp: 98.4 ??F (36.9 ??C) SpO2: 99% Physical Exam Vitals reviewed. HENT: Head: Normocephalic and atraumatic. Cardiovascular: Rate and Rhythm: Normal rate and regular rhythm. Pulmonary: Effort: Pulmonary effort is normal. Comments: Minimal coarseness. Skin: General: Skin is warm and dry. Neurological: Mental Status: He is alert and oriented to person, place, and time. Psychiatric: Mood and Affect: Mood normal. Behavior: Behavior normal. Thought Content: Thought content normal. Judgment: Judgment normal. Assessment/Plan 1. Mild intermittent asthma with acute exacerbation (HHS/HCC) Patient with acute exacerbation of asthma. He was seen in our ER and started on Pred burst. Patientto continue this prednisone burst as prescribed. Niya sent to pharmacy. Encourage patient to start taking as directed. Patient to continue albuterol as needed and at home breathing treatments as needed. Patient to follow-up PCP as scheduled - fluticasone furoate-vilanterol (BREO ELLIPTA) 200-25 MCG/ACT inhaler; Inhale 1 puff into the lungs daily. Dispense: 60 each; Refill: 2 2. Acute cough Patient with acute cough. Patient to start Tessalon Perles as needed for cough. Patient does reportsome sputum production that is thick and white. Patient start Z-Kevin as prescribed. Patient to follow-up PCP if symptoms persist or worsen. - benzonatate (TESSALON) 200 MG capsule; Take 1 capsule (200 mg total) by mouth 3 (three) times daily as needed for Cough. Dispense: 20 capsule; Refill: 0 - azithromycin (ZITHROMAX Z-KEVIN) 250 MG tablet; Take 2 tablets by mouth on day one then 1 daily forfour days. Dispense: 6 tablet; Refill: 0 Criss Zendejas APN, SALES REPRESENTATIVE ADDING MACHINES, BANKING REPRESENTATIVE documented in this encounter Plan of Treatment Upcoming Encounters Date Type Department Care Team (Late st Contact Info) Description 08/19/2024 9:00 AM SOLDERER ASSEMBLER [facility] [place] [address] [address] [place] [address] Soledad Lucas MD [address] [place] [address] 12/16/2024 10:40 AM CDT Office Visit [facility] - [facility] 3 [facility] [address] [place] [address] Ramsey Oakley MD 3 [facility] [address] [place] [address] documented as of this encounter Visit Diagnoses Diagnosis Acute cough- Primary Mild intermittent asthma with acute exacerbation (HHS/HCC) Unspecified asthma, with exacerbation documented in this encounter Additional Health Concerns Assessment Noted Time PHQ-9 Depression Total Score: 1 09/29/19 22 10:03 AM SOLDERER ASSEMBLER documented as of this encounter Care Teams Medical Reimbursement Specialist Relationship Specialty Start Date End Date Soledad Lucas MD [address] [address] PCP - General INTERNAL MEDICINE 09/29/21 documented as of this encounter
--- OUTSIDE RECORDS SUMMARY | 2024-08-03 03:24 | XMS_ITS | Encounter Summary ---
Author Organization [facility] Address [address] [place] [address]. [place], [place] [address] [place] [address] Care Team Providers Care Ophthalmic Tech Name Role Phone Soledad Lucas MD Primary Care Provider [phone] Reason for Visit * Reason Comments Image (SCAN) Encounter Details Date Type Department Care Team (Latest Contact Info) Description 05/15/2023 Scan HEALTH INFO SRVCS Scanned, Doc Med [...] st Contact Info) Description 08/19/2024 9:00 AM GLOBAL CEO Office Visit [facility] Medical Group Multispecialty Care - [place] [address] [address] [place] [address] Soledad Lucas MD [address] [place] [address] [address] [place] [address] 12/16/2024 10:40 AM CDT Office Visit [facility] Medical [facility] Mult[facility]pecialty Care - [facility] [address] [facility] [address] [place] [address] Ramsey Oakley MD [address] [place] [address] documented as of this encounter Procedures Procedure Name Priority Date/Time Associated Diagnosis Comments IMAGE GENERIC 05/15/2023 documented in this encounter Results * IMAGE GENERIC (05/15/2023) Anatomical Region Laterality Modality Other 05/15/2023 us Doc Med Group Scanned SCANNING Final Resu lt documented in this encounter Visit Diagnoses Not on filedocumented in this encounter Additional Health Concerns Infection Onset Date Last Indicated Resolved Time COVID-19 Rule Out 09/24/2023 09/24/2023 09/24/2023 3:59 PM GLOBAL CEO Assessment Noted Time PHQ-9 Depression Total Score: 1 09/29/19 22 10:03 AM GLOBAL CEO documented as of this encounter Care Teams Ophthalmic Tech Relationship Specialty Start Date End Date Soledad Lucas MD 1188 [facility] 157 [place] [address] PCP - General INTERNAL MEDICINE 09/29/21 documented as of this encounter
--- OUTSIDE RECORDS SUMMARY | 2024-08-03 03:24 | XMS_ITS | Encounter Summary ---
Author Organization [facility] Address [address] [place] [address]. [place], [place] [address] [place] [address] Care Team Providers Care Supervisor Laundry Name Role Phone Soledad Lucas MD Primary Care Provider [phone] Reason for Visit * Reason Comments Lab (SCAN) Encounter Details Date Type Department Care Team (Latest Contact Info) Description 03/28/2023 Scan HEALTH INFO SRVCS Scanned, Doc Med [...] st Contact Info) Description 08/19/2024 9:00 AM CASH REGISTER REPAIRER Office Visit [facility] Medical Group Multispecialty Care - [place] [address] [address] [place] [address] Soledad Lucas MD [address] [place] [address] [address] [place] [address] 12/16/2024 10:40 AM CDT Office Visit [facility] Medical Group Multispecialty Care - [facility] [address] [facility] [address] [place] [address] Ramsey Oakley MD [address] [place] [address] documented as of this encounter Procedures Procedure Name Priority Date/Time Associated Diagnosis Comments OUTSIDE LAB (SCAN ORDER) 03/28/2023 OUTSIDE LAB (SCAN ORDER) 03/28/2023 documented in this encounter Results * OUTSIDE LAB (SCAN) (03/28/2023) 03/28/2023 us Doc Med Group Scanned SCANNING Final Resu lt * OUTSIDE LAB (SCAN) (03/28/2023) 03/28/2023 us Doc Med Group Scanned SCANNING Final Resu lt documented in this encounter Visit Diagnoses Not on filedocumented in this encounter Additional Health Concerns Infection Onset Date Last Indicated Resolved Time COVID-19 Rule Out 09/24/2023 09/24/2023 09/24/2023 3:59 PM CASH REGISTER REPAIRER Assessment Noted Time PHQ-9 Depression Total Score: 1 09/29/19 10:03 AM CASH REGISTER REPAIRER documented as of this encounter Care Teams Supervisor Laundry Relationship Specialty Start Date End Date Soledad Lucas MD 1188 [facility] 157 [place] [address] PCP - General INTERNAL MEDICINE 09/29/21 documented as of this encounter
--- OUTSIDE RECORDS SUMMARY | 2024-08-03 03:24 | XMS_ITS | Encounter Summary ---
Author Organization [facility] Address [address] [place] [address]. [address] [address] Care Team Providers Care Plumber Helper Name Role Phone Soledad Lucas MD Primary Care Provider [phone] Encounter Details Date Type Department Care Team (Late st Contact Info) Description 08/17/2023 Orders Only [facility] - [place] [address] [place] [id number] Soledad Lucas MD [address] [place] [address] Social History Tobacco Use Types Packs/Day [...] st Contact Info) Description 08/19/2024 9:00 AM RETAIL INTERIOR DESIGNER Office Visit [facility] Medical [facility] - [address] [place] [address] Soledad Lucas MD [address] [address] 12/16/2024 10:40 AM CDT Office Visit [facility] Medical Group Multispecialty Care - [facility] 3 [facility] [place] [address] Ramsey Oakley MD [address] [facility] [address] [place] [address] documented as of this encounter Visit Diagnoses Not on filedocumented in this encounter Additional Health Concerns Assessment Noted Time PHQ-9 Depression Total Score: 1 09/29/19 22 10:03 AM RETAIL INTERIOR DESIGNER documented as of this encounter Care Teams Plumber Helper Relationship Specialty Start Date End Date Soledad Lucas MD [address] [address] PCP - General INTERNAL MEDICINE 09/29/21 documented as of this encounter
--- OUTSIDE RECORDS SUMMARY | 2024-08-03 03:24 | XMS_ITS | Encounter Summary ---
Author Organization [facility] Address [address] [place] [address]. [address] [address] Care Team Providers Care Data Technician Name Role Phone Soledad Lucas MD Primary Care Provider [phone] Reason for Visit * Reason Onset Date Comments Medication Information 08/04/2023 Medication 08/04/2023 Encounter Details Date Type Department Care Team (Late st Contact Info) Description 08/04/2023 Telephone [facility] Medical Group Multispecialty Care - [place] [address] [address] [place] [address] Soledad Lucas MD [address] [place] [address] [address] [place], [place] [id number] Medication Information; Medication Social History Tobacco Use Types Packs/Day [...] Progress Notes * Soledad Lucas MD - 08/04/2023 5:43 PM CST Losartan hydrochlorothiazide refilled to preferred pharmacy. I called and confirmed with patient. Sent to preferred pharmacy in [place] instead. OPERATIONS ADVISOR * Jatin Cortez - 08/04/2023 2:50 PM CST This is the 3rd time the pt has called today regarding his Lisinopril, [facility], now to [facility], so when he went to pick it up at [facility] they didn't have it, so I'm assuming it must have sat there over seven day and they took it off the shelf now it's not at the [facility] in [place], I think the pt is confused he stated they didn't have it, can you pls send script to [facility]. OPERATIONS ADVISOR * Koko Brand - 08/04/2023 1:53 PM CST Patient called and stated that he will be staying in [place], [place] for a while and asked that his pharmacy be changed to [facility] at [address] [place] [address] until further notice. Thank you. OPERATIONS ADVISOR documented in this encounter Plan of Treatment Upcoming Encounters Date Type Department Care Team (Late st Contact Info) Description 08/19/2024 9:00 AM HR OPERATIONS ADVISOR Office Visit [facility] Medical Group Multispecialty Care - [address] [place] [address] [place] [address] [place] [address] 157 [place] [address] 12/16/2024 10:40 AM CDT Office Visit [facility] Multispecialty Care - [facility] 3 [facility], [address] [place] [address] Ramsey Oakley MD [address] [address] documented as of this encounter Visit Diagnoses Diagnosis Primary hypertension Unspecified essential hypertension documented in this encounter Additional Health Concerns Assessment Noted Time PHQ-9 Depression Total Score: 1 09/29/19 22 10:03 AM HR OPERATIONS ADVISOR documented as of this encounter Care Teams Data Technician Relationship Specialty Start Date End Date Soledad Lucas MD 1188 [facility] [address] [place] [address] PCP - General INTERNAL MEDICINE 09/29/21 documented as of this encounter
--- OUTSIDE RECORDS SUMMARY | 2024-08-03 03:24 | XMS_ITS | Encounter Summary ---
Author Organization [facility] Address [address] [place] [address]. [place], [place] [address] [place] [address] Care Team Providers Care Die Barber Name Role Phone Soledad Lucas MD Primary Care Provider [phone] Reason for Visit * Reason Comments Lab (SCAN) Encounter Details Date Type Department Care Team (Latest Contact Info) Description 04/28/2023 Scan HEALTH INFO SRVCS Scanned, Doc Med [...] st Contact Info) Description 08/19/2024 9:00 AM SALES SUPPORT COORDINATOR Office Visit [facility] Medical Group Multispecialty Care - [place] [address] [address] [place] [address] Soledad Lucas MD [address] [place] [address] [address] [place] [address] 12/16/2024 10:40 AM CDT Office Visit [facility] Medical Group Multispecialty Care - [facility] [address] [facility] [address] [place] [address] Ramsey Oakley MD [address] [facility] [address] [place] [address] documented as of this encounter Procedures Procedure Name Priority Date/Time Associated Diagnosis Comments OUTSIDE LAB (SCAN ORDER) 04/28/2023 documented in this encounter Results * OUTSIDE LAB (SCAN) (04/28/2023) 04/28/2023 us Doc Med Group Scanned SCANNING Final Resu lt documented in this encounter Visit Diagnoses Not on filedocumented in this encounter Additional Health Concerns Infection Onset Date Last Indicated Resolved Time COVID-19 Rule Out 09/24/2023 09/24/2023 09/24/2023 3:59 PM SALES SUPPORT COORDINATOR Assessment Noted Time PHQ-9 Depression Total Score: 1 09/29/19 10:03 AM SALES SUPPORT COORDINATOR documented as of this encounter Care Teams Die Barber Relationship Specialty Start Date End Date Soledad Lucas MD [address] [facility] [address] [place] [address] PCP - General INTERNAL MEDICINE 09/29/21 documented as of this encounter
--- OUTSIDE RECORDS SUMMARY | 2024-08-03 03:24 | XMS_ITS | Encounter Summary ---
Author Organization [facility] - [facility] Address [address] [place] [address]. [place], [place] [address] [place] [address] Care Team Providers Care Lens Silverer Name Role Phone Soledad Lucas MD Primary Care Provider [phone] Reason for Visit * Reason Onset Date Comments Medication Problem 08/17/2023 Encounter Details Date Type Department Care Team (Late st Contact Info) Description 08/17/2023 Telephone [facility] Medical Group Multispecialty Care - [place] [address] [address] [place] [address] Soledad Lucas MD [address] [place] [address] 157 [place], [place] [id number] Medication Problem Social History Tobacco Use Types Packs/Day Years [...] encounter Progress Notes * Koko Brand - 08/18/2023 8:52 AM CST Called patient and informed him of his pharmacy having his refills and patient verified that he hasthem. T ANATOMIST * Kook L Sunday - 08/17/2023 11:14 AM CST Patient called and stated that the pharmacy is telling him that they did not receive any of his medication refills yesterday. I looked in his chart and Dr. Lucas sent them to preferred pharmacy and pharmacy confirmed receipt. Patient is asking for someone to call pharmacy and see if there was some sort of communication error. Please advise. Thank you. T ANATOMIST documented in this encounter Plan of Treatment Upcoming Encounters Date Type Department Care Team (Late st Contact Info) Description 08/19/2024 9:00 AM PLANT ANATOMIST [facility] [place] [address] [address] [place] [address] Soledad Lucas MD [address] [place] [address] 12/16/2024 10:40 AM CDT [facility] [address] [facility] [place] [address] Ramsey Oakley MD [address] [facility] [address] [place] [address] documented as of this encounter Visit Diagnoses Not on filedocumented in this encounter Additional Health Concerns Assessment Noted Time PHQ-9 Depression Total Score: 1 09/29/19 10:03 AM PLANT ANATOMIST documented as of this encounter Care Teams Lens Silverer Relationship Specialty Start Date End Date Soledad Lucas MD [address] [place] [address] PCP - General INTERNAL MEDICINE 09/29/21 documented as of this encounter
--- OUTSIDE RECORDS SUMMARY | 2024-08-03 03:24 | XMS_ITS | Encounter Summary ---
Author Organization [facility] Address [address] [place] [address]. [place], [place] [address] [place] [address] Care Team Providers Care Mower Mechanic Name Role Phone Soledad Lucas MD Primary Care Provider [phone] Reason for Visit * Reason Comments Image (SCAN) Encounter Details Date Type Department Care Team (Latest Contact Info) Description 05/30/2023 Scan HEALTH INFO SRVCS Scanned, Doc Med [...] st Contact Info) Description 08/19/2024 9:00 [address] LAUNDRY ROUTE DRIVER Office Visit [facility] Medical Group Multispecialty Care - [place] [address] [address] [place] [address] Soledad Lucas MD [address] [place] [address] 157 [place] [address] 12/16/2024 10:40 AM CDT Office Visit [facility] Medical Group Multispecialty Care - [facility] [address] [facility] [address] [place] [address] Ramsey Oakley MD [address] [place] [address] documented as of this encounter Procedures Procedure Name Priority Date/Time Associated Diagnosis Comments IMAGE GENERIC 05/30/2023 documented in this encounter Results * IMAGE GENERIC (05/30/2023) Anatomical Region Laterality Modality Other 05/30/2023 us Doc Med Group Scanned SCANNING Final Resu lt documented in this encounter Visit Diagnoses Not on filedocumented in this encounter Additional Health Concerns Infection Onset Date Last Indicated Resolved Time COVID-19 Rule Out 09/24/2023 09/24/2023 09/24/2023 3:59 PM LAUNDRY ROUTE DRIVER Assessment Noted Time PHQ-9 Depression Total Score: 1 09/29/19 22 10:03 AM LAUNDRY ROUTE DRIVER documented as of this encounter Care Teams Mower Mechanic Relationship Specialty Start Date End Date Soledad Lucas MD [address] [facility] 157 [place] [address] PCP - General INTERNAL MEDICINE 09/29/21 documented as of this encounter
--- OUTSIDE RECORDS SUMMARY | 2024-08-03 03:24 | XMS_ITS | Encounter Summary ---
Author Organization [facility] - [facility] Address [address] [place] [address]. [place], [place] [address] [place] [address] Care Team Providers Care Professional Volleyball Player Name Role Phone Soledad Lucas MD Primary Care Provider [phone] Reason for Visit * Reason Onset Date Comments Breathing Problem 05/30/2023 Encounter Details Date Type Department Care Team (Late st Contact Info) Description 05/30/2023 Telephone [facility] Medical Group Multispecialty Care - [place] [address] [address] [place], [place] [address] Soledad Lucas MD [address] [place] [address] 157 [place], [place] [id number] Breathing Problem Social History Tobacco Use Types Packs/Day [...] encounter Progress Notes * Jatin Cortez - 05/30/2023 8:27 AM CDT I spoke with Dr. Lucas and she advised that pt go to the ER, I called pt back and let pt know that Dr. Lucas wants him to go to ER. * Jatin Cortez - 05/30/2023 8:[address] Lucas pt is wheezing with Asthma for 3 days would you like him to come or got to ER? documented in this encounter Plan of Treatment Upcoming Encounters Date Type Department Care Team (Late st Contact Info) Description 08/19/2024 9:00 AM CAMP RECREATION SPECIALIST Office Visit [facility] Medical [facility] Multispecialty Care - [place] [address] [address] [place] [address] Soledad Lucas MD [address] [place] [address] 12/16/2024 10:40 AM CDT Office Visit [facility]pecialty [facility] [address] [facility] [place] [address] Ramsey Oakley MD [address] [facility] [address] [place] [address] documented as of this encounter Visit Diagnoses Not on filedocumented in this encounter Additional Health Concerns Assessment Noted Time PHQ-9 Depression Total Score: 1 09/29/19 22 10:03 AM CAMP RECREATION SPECIALIST documented as of this encounter Care Teams Professional Volleyball Player Relationship Specialty Start Date End Date Soledad Lucas MD [address] [place] [address] PCP - General INTERNAL MEDICINE 09/29/21 documented as of this encounter
--- OUTSIDE RECORDS SUMMARY | 2024-08-03 03:24 | XMS_ITS | Encounter Summary ---
Author Organization [facility] Address [address] [place] [address]. [place], [place] [address] [place] [address] Care Team Providers Care Refrigeration Operator Name Role Phone Soledad Lucas MD Primary Care Provider [phone] Reason for Visit * Reason Comments Lab [...] st Contact Info) Description 08/19/2024 9:00 AM ADMINISTRATIVE PROCESSOR Office Visit [facility] Medical Group Multispecialty Care - [place] [address] [address] [place] [address] Soledad Lucas MD [address] [place] [address] 157 [place] [address] 12/16/2024 10:40 AM CDT Office Visit [facility] Medical Group Multispecialty Care - [facility] [address] [facility] [address] [place] [address] Ramsey Oakley MD [address] [place] [address] documented as of this encounter Procedures Procedure Name Priority Date/Time Associated Diagnosis Comments OUTSIDE LAB COVID-19 (SCAN ORDER) Routine 05/30/2023 documented in this encounter Results * OUTSIDE LAB COVID-19 (SCAN) (05/30/2023) CORONAVIRUS SARS COV 2 PCR (RESP) NOT DETECTED NOT DETECTED [facility] 05/30/2023 us Doc Med Group Scanned SCANNING Final Resu lt [facility] documented in this encounter Visit Diagnoses Not on filedocumented in this encounter Additional Health Concerns Infection Onset Date Last Indicated Resolved Time COVID-19 Rule Out 09/24/2023 09/24/2023 09/24/2023 3:59 PM ADMINISTRATIVE PROCESSOR Assessment Noted Time PHQ-9 Depression Total Score: 1 09/29/19 10:03 AM ADMINISTRATIVE PROCESSOR documented as of this encounter Care Teams Refrigeration Operator Relationship Specialty Start Date End Date Soledad Lucas MD [address] [facility] [address] [place] [address] PCP - General INTERNAL MEDICINE 09/29/21 documented as of this encounter
--- OUTSIDE RECORDS SUMMARY | 2024-08-03 03:24 | XMS_ITS | Encounter Summary ---
Author Organization [facility] - [facility] Address [address] [place] [address]. [address] [address] Care Team Providers Care Director Home Health Name Role Phone Soledad Lucas MD Primary Care Provider [phone] Reason for Visit * Reason Onset Date Comments Medication 07/19/2023 Encounter Details Date Type Department Care Team (Late st Contact Info) Description 07/19/2023 Telephone [facility] Medical Group Multispecialty Care - [place] [address] [address] [place] [address] [place] [address] [place] [address] 157 [place] [address] Medication Social History Tobacco Use [...] Progress Notes * Soledad Lucas MD - 07/19/2023 1:11 PM CST losartan hydrochlorothiazide refilled. RDING ENGINEER * Koko Carie Yingy - 07/19/2023 9:59 AM CST Patient called and requested a refill of his Losartan-Hydrochlorothiazide 50- 12.5 MG tablet please.Thank you. RDING ENGINEER documented in this encounter Plan of Treatment Upcoming Encounters Date Type Department Care Team (Late st Contact Info) Description 08/19/2024 9:00 AM RECORDING ENGINEER [facility] - [place] [address] [address] [place] [address] Soledad Lucas MD [address] [place] [address] 12/16/2024 10:40 AM CDT [facility] [address] [facility] [place] [address] Ramsey Oakley MD [address] [facility] [address] [place] [address] documented as of this encounter Visit Diagnoses Diagnosis Primary hypertension Unspecified essential hypertension documented in this encounter Additional Health Concerns Assessment Noted Time PHQ-9 Depression Total Score: 1 09/29/19 10:03 AM RECORDING ENGINEER documented as of this encounter Care Teams Director Home Health Relationship Specialty [place] [address] [place] [address] PCP - General INTERNAL MEDICINE 09/29/21 documented as of this encounter
--- OUTSIDE RECORDS SUMMARY | 2024-08-03 03:25 | XMS_ITS | Encounter Summary ---
Author Organization [facility] Address [address] [place] [address]. [address] [address] Care Team Providers Care Concert Or Lecture Hall Manager Name Role Phone Soledad Lucas MD Primary Care Provider [phone] Encounter Details Date Type Department Care Team (Latest Contact Info) Description 10/14/2022 - 10/14/2022 7:32 AM [facility] Hospital Encounter [facility] [address] [place] [address] Soledad Lucas MD [address] [address] Discharge Disposition: Home or Self Care (Routine [...] Medications at Time of Discharge NEBULIZER DEVICE, DME,Indications:M oderate persistent asthma with acute exacerbation (HHS/HCC),Acute bronchitis, unspecified organism Take 1 Device by nebulization every 6 (six) hours as needed. Use for asthma attack. 1 Device 06/13/2022 albuterol sulfate HFA 108 (90 Base) MCG/ACT inhalerIndication s:Mild intermittent asthma with acute exacerbation (HHS/HCC) Inhale 2 puffs into the lungs every 6 (six) hours as needed for Wheezing. 18 g 5 08/29/2022 3 atorvastatin 40 MG tabletIndications :Mixed hyperlipidemia,Le ft-sided chest pain Take 1 tablet (40 mg total) by mouth nightly at bedtime. 90 tablet 2 10/13/2021 3 cyclobenzaprine (FLEXERIL) 10 MG tabletIndications :Chronic bilateral low back pain with left-sided sciatica Take 1 tablet (10 mg total) by mouth nightly as needed for Muscle Spasms. 30 tablet 2 07/13/2022 3 fluticasone furoate-vilantero l (BREO ELLIPTA) 200-25 MCG/ACT inhalerIndication s:Mild intermittent asthma with acute exacerbation (HHS/HCC) Inhale 1 puff into the lungs daily. 60 each 2 08/29/2022 3 ipratropium-albut brenda (DUONEB) 0.5-2.5 (3) MG/3ML SolutionIndicatio ns:Mild intermittent asthma with acute exacerbation (HHS/HCC) Take 3 mLs by nebulization every 6 (six) hours as needed. 360 mL 11 08/29/2022 4 losartan-hydroCHL OROthiazide (HYZAAR) 50-12.5 MG tabletIndications :Primary hypertension TAKE 1 TABLET BY MOUTH DAILY 90 tablet 1 07/27/2022 3 metFORMIN (GLUCOPHAGE) 500 MG tabletIndications :Prediabetes Take 1 tablet (500 mg total) by mouth daily with breakfast. 60 tablet 3 01/07/2022 3 omeprazole (PRILOSEC) 40 MG capsuleIndication s:Gastroesophagea l reflux disease without esophagitis TAKE 1 CAPSULE(40 MG) BY MOUTH DAILY 30 capsule 04/19/2022 3 oxyCODONE-acetami nophen (PERCOCET) 7.5-325 MG tabletIndications :Chronic Pain Take 1 tablet by mouth daily as needed for Pain. Indications: Chronic Pain 30 tablet 09/26/2022 3 vitamin D2, ergocalciferol, 82846 UNITS capsuleIndication s:Vitamin D deficiency Take 1 capsule (50,000 Units total) by mouth weekly. 12 capsule 1 09/29/2021 3 documented as of this encounter Plan of Treatment Upcoming Encounters Date Type Department Care Team (Late st Contact Info) Description 08/19/2024 9:00 AM SALES ACCOUNT REPRESENTATIVE [facility] - [place] [address] [address] [place] [address] Soledad Lucas MD [address] [place] [address] 12/16/2024 10:40 AM CDT [facility] [address] [facility] [place] [address] Ramsey Oakley MD [address] [facility] [address] [place] [address] documented as of this encounter Visit Diagnoses Not on filedocumented in this encounter Additional Health Concerns Assessment Noted Time PHQ-9 Depression Total Score: 1 09/29/19 10:03 AM SALES ACCOUNT REPRESENTATIVE documented as of this encounter Care Teams Concert Or Lecture Hall Manager Relationship Specialty Start Date End Date Soledad Lucas MD [address] [place] [address] PCP - General INTERNAL MEDICINE 09/29/21 documented as of this encounter
--- OUTSIDE RECORDS SUMMARY | 2024-08-03 03:25 | XMS_ITS | Encounter Summary ---
Author Organization [facility] - [facility] Address [address] [place] [address]. [place], [place] [address] [place] [address] Care Team Providers Care Admissions Manager Rn Name Role Phone Soledad Lucas MD Primary Care Provider Reason for Visit * Reason Onset Date Comments Follow Up Call 12/13/2022 Encounter Details Date Type Department Care Team (Late st Contact Info) Description 12/13/2022 Telephone [facility] Medical Group Multispecialty Care - [place] [address] [address] [place] [address] Soledad Lucas MD [address] [place] [address] 157 [place] [address] Follow Up Call Social History [...] as of this encounter Progress Notes * Eugenie Ramirez MA - 12/21/2022 7:15 AM CDT Pt is scheduled for 01/16/23 * Eugenie Ramirez MA - 12/14/2022 8:26 AM CDT Tried to call pt , but no voicemail set up * Soledad Lucas MD - 12/13/2022 1:03 PM CDT Please call patient. I have sent his medications to his preferred pharmacy. He did miss his appointment for his annual physical. I will not fill his subsequent refill if he misses his next appointment. Please schedule him for his physical. Thank you. documented in this encounter Plan of Treatment Upcoming Encounters Date Type Department Care Team (Late st Contact Info) Description 08/19/2024 9:00 AM SENIOR PRODUCT MARKETING MANAGER [facility] - [place] [address] [address] [place] [address] Soledad Lucas MD [address] [place] [address] 157 [place] [address] 12/16/2024 10:40 AM CDT [facility] [address] [facility] [place] [address] Ramsey Oakley MD [address] [facility] [address] [place] [address] documented as of this encounter Visit Diagnoses Diagnosis Primary osteoarthritis of left knee Primary localized osteoarthrosis, lower leg Chronic bilateral low back pain with left-sided sciatica documented in this encounter Additional Health Concerns Assessment Noted Time PHQ-9 Depression Total Score: 1 09/29/19 10:03 AM SENIOR PRODUCT MARKETING MANAGER documented as of this encounter Care Teams Admissions Manager Rn Relationship Specialty Start Date End Date Soledad Lucas MD [address] [address] PCP - General INTERNAL MEDICINE 09/29/21 documented as of this encounter
--- OUTSIDE RECORDS SUMMARY | 2024-08-03 03:25 | XMS_ITS | Encounter Summary ---
Author Organization [facility] Address [address] [place] [address]. [place], [place] [address] [place] [address] Care Team Providers Care Marketing Researcher Name Role Phone Soledad Lucas MD Primary Care Provider [phone] Reason for Visit * Reason Comments Image (SCAN) Lab (SCAN) Encounter Details Date Type Department Care Team (Late Contact Info) Description 07/12/2022 Scan HEALTH INFO SRVCS Scanned, Doc Med Group Image (SCAN); Lab (SCAN) Social History Tobacco Use Types Packs/Day Years Used Date Smoking Tobacco: Never Smokeless Tobacco: Never Comments:counsled by Dr [...] on file Sexual Orientation Not on file COVID-19 Exposure Response Date Recorded In the last 10 days, have yo u been in contact with someone who was confirmed or suspected to have Coronavirus/COVID-19? No / Unsure 07/13/2022 3:18 PM ADVANCED PRACTICE NURSE PSYCHOTHERAPIST documented as of this encounter Plan of Treatment Upcoming Encounters Date Type Department Care Team (Late Contact Info) Description 08/19/2024 9:00 AM ADVANCED PRACTICE NURSE PSYCHOTHERAPIST Office Visit [facility] Medical Group Multispecialty Care - [address] [place] [address] Soledad Lucas MD [address] [facility] [address] [place] [address] 12/16/2024 10:40 AM CDT Office Visit [facility] Medical Group Multispecialty Care - [facility] [address] [facility] [address] [place] [address] Ramsey Oakley MD [address] [facility] [address] [place] [address] documented as of this encounter Procedures Procedure Name Priority Date/Time Associated Diagnosis Comments OUTSIDE PT/INR (SCAN ORDER) 07/12/2022 OUTSIDE LAB (SCAN ORDER) 07/12/2022 OUTSIDE LAB (SCAN ORDER) 07/12/2022 OUTSIDE LAB (SCAN ORDER) 07/12/2022 IMAGE GENERIC 07/12/2022 documented in this encounter Results * OUTSIDE LAB (SCAN) (07/12/2022) 07/12/2022 [facility] Scanned SCANNING Final Resu lt * OUTSIDE LAB (SCAN) (07/12/2022) 07/12/2022 [facility] Scanned SCANNING Final Resu lt * OUTSIDE LAB (SCAN) (07/12/2022) 07/12/2022 [facility] Scanned SCANNING Final Resu lt * OUTSIDE PT/INR (SCAN) (07/12/2022) 07/12/2022 [facility] Med Group Scanned SCANNING Final Resu lt * IMAGE GENERIC (07/12/2022) Anatomical Region Laterality Modality Other 07/12/2022 us Doc Med Group Scanned SCANNING Final Resu lt documented in this encounter Visit Diagnoses Not on filedocumented in this encounter Additional Health Concerns Assessment Noted Time PHQ-9 Depression Total Score: 1 09/29/19 22 10:03 AM ADVANCED PRACTICE NURSE PSYCHOTHERAPIST documented as of this encounter Care Teams Marketing Researcher Relationship Specialty Start Date End Date Soledad Lucas MD [address] [address] PCP - General INTERNAL MEDICINE 09/29/21 documented as of this encounter
--- OUTSIDE RECORDS SUMMARY | 2024-08-03 03:25 | XMS_ITS | Encounter Summary ---
Author Organization [facility] Address [address] [place] [address]. [address] [address] Care Team Providers Care Teaching Specialists Name Role Phone Soledad Lucas MD Primary Care Provider [phone] Reason for Visit * Reason Onset Date Comments Refill Request 09/26/2022 Encounter Details Date Type Department Care Team (Late st Contact Info) Description 09/26/2022 Telephone [facility] Medical Group Multispecialty Care - [place] [address] [address] [place] [address] Soledad Lucas MD [address] [place] [address] 157 [place] [address] Refill Request Social History Tobacco Use Types Packs/Day [...] suspected to have Coronavirus/COVID-19? No / Unsure 08/29/2022 10:33 AM BROODMARE BARN GROOM documented as of this encounter Progress Notes * Soledad Lucas MD - 09/26/2022 4:55 PM CST Oxy refilled. DMARE BARN GROOM * Eugenie Ramirez MA - 09/26/2022 9:41 AM CST Pt calling and requesting refill of Oxycodone 7.5/325 Last refill 07/05/22 Last appt 09/02/22 Next appt 10/03/22 [id number] [place] - [address] [place] [phone] [place] [address] [employer] GROOM documented in this encounter Plan of Treatment Upcoming Encounters Date Type Department Care Team (Late st Contact Info) Description 08/19/2024 9:00 AM BROODMARE BARN GROOM [facility] [address] [place] [address] [place] [address] [place] [address] 157 [place] [address] 12/16/2024 10:40 AM CDT Office Visit [facility]ty Care - [facility] [address] [facility] [place] [address] Ramsey Oakley MD [facility] [address] [place] [address] documented as of this encounter Visit Diagnoses Diagnosis Primary osteoarthritis of left knee Primary localized osteoarthrosis, lower leg Chronic bilateral low back pain with left-sided sciatica documented in this encounter Additional Health Concerns Assessment Noted Time PHQ-9 Depression Total Score: 1 09/29/19 10:03 AM BROODMARE BARN GROOM documented as of this encounter Care Teams Teaching Specialists Relationship Specialty Start Date End Date Soledad Lucas MD [address] [place] [id number] PCP - General INTERNAL MEDICINE 09/29/21 documented as of this encounter
--- OUTSIDE RECORDS SUMMARY | 2024-08-03 03:25 | XMS_ITS | Encounter Summary ---
Author Organization [facility] Address [address] [place] [address]. [place], [place] [address] [place] [address] Care Team Providers Care Edger Automatic Name Role Phone Soledad Lucas MD Primary Care Provider [phone] Encounter Details Date Type Department Care Team (Latest Contact Info) Description 05/30/2022 Travel Social History Tobacco Use Types Packs/Day [...] suspected to have Coronavirus/COVID-19? No / Unsure 05/30/2022 11:39 AM CDT documented as of this encounter Plan of Treatment Upcoming Encounters Date Type Department Care Team (Late st Contact Info) Description 08/19/2024 9:00 AM CARDIAC CATH TECH Office Visit [facility] - [place] [address] [address] [place] [address] Soledad Lucas MD [address] [place] [address] [address] [place] [address] 12/16/2024 10:40 AM CDT Office Visit [facility] - [facility] [address] [facility] [place] [address] Ramsey Oakley MD [address] [facility] [address] [place] [address] documented as of this encounter Visit Diagnoses Not on filedocumented in this encounter Additional Health Concerns Assessment Noted Time PHQ-9 Depression Total Score: 1 09/29/19 22 10:03 AM CARDIAC CATH TECH documented as of this encounter Care Teams Edger Automatic Relationship Specialty Start Date End Date Soledad Lucas MD [address] [address] PCP - General INTERNAL MEDICINE 09/29/21 documented as of this encounter
--- OUTSIDE RECORDS SUMMARY | 2024-08-03 03:25 | XMS_ITS | Encounter Summary ---
Author Organization [facility] Address [address] [place] [address]. [place], [place] [address] [place] [address] Care Team Providers Care Composite Bond Worker Name Role Phone Soledad Lucas MD Primary Care Provider [phone] Encounter Details Date Type Department Care Team (Latest Contact Info) Description 08/29/2022 Travel Social History Tobacco Use Types Packs/Day [...] Coronavirus/COVID-19? No / Unsure 08/29/2022 10:[address] documented as of this encounter Plan of Treatment Upcoming Encounters Date Type Department Care Team (Late st Contact Info) Description 08/19/2024 9:[address] Office Visit [facility] Multispecialty Care - [place] [address] [address] [place] [address] Soledad Lucas MD [address] [place] [address] [address] [place] [address] 12/16/2024 10:40 AM CDT Office Visit [facility]ialty Care - [facility] [address] [facility] [place] [address] Ramsey Oakley MD [address] [facility] [address] [place] [address] documented as of this encounter Visit Diagnoses Not on filedocumented in this encounter Additional Health Concerns Assessment Noted Time PHQ-9 Depression Total Score: 1 09/29/19 22 10:[address] documented as of this encounter Care Teams Composite Bond Worker Relationship Specialty Start Date End Date Soledad Lucas MD [address] [address] PCP - General INTERNAL MEDICINE 09/29/21 documented as of this encounter
--- OUTSIDE RECORDS SUMMARY | 2024-08-03 03:25 | XMS_ITS | Encounter Summary ---
Author Organization [facility] Address [address] [place] [address]. [place], [place] [address] [place] [address] Care Team Providers Care Section Laborer Name Role Phone Soledad Lucas MD Primary Care Provider [phone] Reason for Visit * Reason Comments Cough Patient states the c ough has been going on since last Monday. Having a hard time breathing because of it Encounter Details Date Type Department Care Team (Latest Contact Info) Description 06/13/2022 1:40 PM LEAD DATABASE ADMINISTRATOR Office Visit [facility] Multispecialty Care - [place] [address] [address] [place], [place] [address] Soledad Lucas MD [address] [place] [address] [address] [place] [address] Cough (Patient states the cough has been going on since last Monday. Having a hard time breathing because of it) Social History Tobacco Use Types Packs/Day Years Used Date Smoking Tobacco: Never Smokeless Tobacco: Never Tobacco Cessation:Counseling Given: [...] Recorded In the last 10 days, have rosie u been in contact with someone who was confirmed or suspected to have Coronavirus/COVID-19? No / Unsure 06/13/2022 1:43 PM LEAD DATABASE ADMINISTRATOR documented as of this encounter Last Filed Vital Signs Vital Sign Reading Time Taken Comments Blood Pressure 130/80 06/13/2022 4:24 PM LEAD DATABASE ADMINISTRATOR Pulse 82 06/13/2022 2:07 PM LEAD DATABASE ADMINISTRATOR Temperature 36.2 ??C (97.1 ??F) 06/13/2022 2:07 PM CS T Respiratory Rate 18 06/13/2022 2:07 PM LEAD DATABASE ADMINISTRATOR Oxygen Saturation 96% 06/13/2022 2:07 PM LEAD DATABASE ADMINISTRATOR Inhaled Oxygen Concentration - - Weight 101.7 kg (224 lb 3.2 oz) 06/13/2022 2:07 PM LEAD DATABASE ADMINISTRATOR Height 185.4 cm (6' 1 ) 06/13/2022 2:07 PM LEAD DATABASE ADMINISTRATOR Body Mass Index 29.58 06/13/2022 2:07 PM LEAD DATABASE ADMINISTRATOR documented in this encounter Patient Instructions * Patient Instructions* Soledad Lucas MD - 06/13/2022 1:40 PM LEAD DATABASE ADMINISTRATOR Please go an urgent care or ER to receive nebulization. Please get your nebulizer from [place] pharmacy. DATABASE ADMINISTRATOR * Attachments The following attachments cannot be sent through Care Everywhere. * Asthma in Adults (Amharic) documented in this encounter Progress Notes * Soledad Lucas MD - 06/13/2022 2:57 PM CSTSummary: Acute visit note Images from the original note were not included. cov Internal Medicine Outpatient Progress Note CC: Cough (Patient states the cough has been going on since last Monday. Having a hard time breathing because of it) HPI: Juliet Stout is a 60-year-old male who presents for an acute visit for concerns about asthma exacerbation. Patient with asthma currently on albuterol as needed and Breo inhaler. He tells me he has been using his medications as directed. He is unaware of any recent infection. According to patient, he started experiencing mild progressively worsening shortness of breath that started about 6 days ago. Since then, patient has noticed worsening symptoms of cough that is productive of clear sputum. No fever or chills. Has noticed mild chest tightness. He thinks this is asthma exacerbation. He currently does not have a nebulizer. This prescription was prescribed a couple of months ago however patient did not secure. Comes in today with concerns for the above. Problem List Patient Active Problem List Diagnosis ??? 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 Primary osteoarthritis of right knee ??? Osteoarthritis of multiple joints ??? Primary hypertension ??? Overweight (BMI 25.0-29.9) ??? Mild intermittent asthma without complication ??? Vitamin D deficiency ??? Prediabetes Past Medical History: Diagnosis Date ??? Arthritis ??? Hypertension Past Surgical History: Procedure Laterality Date ??? KNEE ARTHROSCOPY Right ??? KNEE SURGERY Right Unsure of exactly what they did to patella. Family History Problem Relation Name Age of Onset ??? Cancer Mother ??? Prostate Cancer Father ??? Cancer Sister ??? Diabetes Sister ??? Cancer Brother Social History Tobacco Use ??? Smoking status: Never Smoker ??? Smokeless tobacco: Never Used ??? Tobacco comment: counsled by Dr Lucas Vaping Use ??? Vaping Use: Never used Substance Use Topics ??? Alcohol use: Yes Alcohol/week: 11.7 standard drinks Types: 7 Cans of beer per week Comment: Socially ??? Drug use: Yes Types: Marijuana Medications: Outpatient Medications Marked as Taking for the 06/13/22 encounter (Office Visit) with Soledad Lucas MD Medication Sig Dispense Refill ??? albuterol sulfate HFA 108 (90 Base) MCG/ACT inhaler Inhale 2 puffs into the lungs every 6 (six)hours as needed for Wheezing. 18 g 5 ??? aspirin 81 MG chewable tablet Chew 1 tablet (81 mg total) by mouth daily. 30 tablet 0 ??? atorvastatin 40 MG tablet Take 1 tablet (40 mg total) by mouth nightly at bedtime. 90 tablet 2 ??? azithromycin (ZITHROMAX Z-ABBE) 250 MG tablet Take 2 tablets by mouth on day one then 1 daily for four days. 6 tablet 0 ??? ipratropium-albuterol (DUONEB) 0.5-2.5 (3) MG/3ML Solution Take 3 mLs by nebulization every 6 (six) hours as needed. 360 mL 0 ??? losartan-hydroCHLOROthiazide 50-12.5 MG tablet Take 1 tablet by mouth daily. 90 tablet 1 ??? metFORMIN (GLUCOPHAGE) 500 MG tablet Take 1 tablet (500 mg total) by mouth daily with breakfast. 60 tablet 3 ??? methocarbamol (ROBAXIN) 500 MG tablet Take 1 tablet (500 mg total) by mouth 3 (three) times daily. 60 tablet 0 ??? NEBULIZER DEVICE, DME, Take 1 Device by nebulization every 6 (six) hours as needed. Use for asthma attack. 1 Device 0 ??? omeprazole (PRILOSEC) 40 MG capsule TAKE 1 CAPSULE(40 MG) BY MOUTH DAILY 30 capsule 0 ??? oxyCODONE-acetaminophen (PERCOCET) 7.5-325 MG tablet Take 1 tablet by mouth daily as needed forPain. Indications: Chronic Pain 30 tablet 0 ??? [START ON 06/14/2022] predniSONE (DELTASONE) 10 mg tablet 40 mg daily for 5 days then 30 mg daily for 3 days then 20 mg daily for 3 days then 10 mg daily 5 days then stop. 40 tablet 0 ??? vitamin D2, ergocalciferol, 87476 UNITS capsule Take 1 capsule (50,000 Units total) by mouth weekly. 12 capsule 1 Current Facility-Administered Medications for the 06/13/22 encounter (Office Visit) with Soledad Lucas MD Medication Dose Route Frequency Provider Last Rate Last Admin ??? BUpivacaine (PF) (MARCAINE) 0.25 % injection 5 mL 5 mL Intrapleural Once Soledad Lucas MD Allergies: Allergies Allergen Reactions ??? Lisinopril Swelling Swollen lips Review of Systems Constitutional: Negative for chills, diaphoresis, fever, malaise/fatigue and weight loss. HENT: Negative. Eyes: Negative. Respiratory: Positive for cough, sputum production (clear), shortness of breath and wheezing. Negative for hemoptysis. Cardiovascular: Negative for chest pain, palpitations, orthopnea, claudication, leg swelling and PND. Gastrointestinal: Negative. Genitourinary: Negative. Musculoskeletal: Negative. Objective: Filed Vitals: 06/13/22 1407 06/13/22 1624 BP: (!) 148/91 130/80 Pulse: 82 Resp: 18 Temp: 97.1 ??F (36.2 ??C) TempSrc: Temporal SpO2: 96% Weight: 101.7 kg (224 lb 3.2 oz) Height: 6' 1 (1.854 m) Body mass index is 29.58 kg/m??. General alert, cooperative, no distress HEENT [...] adenopathy Assessment and Plan: Encounter Diagnose(s) ICD-10-CM ICD-9-CM SNOMED CT(R) 1. Acute bronchitis, unspecified organism J20.9 466.0 ACUTE BRONCHITIS NEBULIZER DEVICE, DME, CORONAVIRUS (COVID 19) PCR CORONAVIRUS (COVID 19) PCR 2. Moderate persistent asthma with acute exacerbation J45.41 493.92 EXACERBATION OF MODERATE PERSISTENT ASTHMA CORONAVIRUS (COVID-19) INFLUENZA A & B ANTIGEN IA PANEL methylPREDNISolone acetate (DEPO-Medrol) injection 40 mg predniSONE (DELTASONE) 10 mg tablet azithromycin (ZITHROMAX Z-ABBE) 250 MG tablet ipratropium-albuterol (DUONEB) 0.5-2.5 (3) MG/3ML Solution XR CHEST PA+LAT NEBULIZER DEVICE, DME, 1. Moderate persistent asthma with acute exacerbation - acute exacerbation; all respiratory work up is negative - CORONAVIRUS (COVID-19) INFLUENZA A & B ANTIGEN IA PANEL - methylPREDNISolone acetate (DEPO-Medrol) injection 40 mg - predniSONE (DELTASONE) 10 mg tablet; 40 mg daily for 5 days then 30 mg daily for 3 days then 20 mg daily for 3 days then 10 mg daily 5 days then stop. Dispense: 40 tablet; Refill: 0 - azithromycin (ZITHROMAX Z-ABBE) 250 MG tablet; Take 2 tablets by mouth on day one then 1 daily forfour days. Dispense: 6 tablet; Refill: 0 - ipratropium-albuterol (DUONEB) 0.5-2.5 (3) MG/3ML Solution; Take 3 mLs by nebulization every 6 (six) hours as needed. Dispense: 360 mL; Refill: 0 - XR CHEST PA+LAT; Future - NEBULIZER DEVICE, DME,; Take 1 Device by nebulization every 6 (six) hours as needed. Use for asthma attack. Dispense: 1 Device; Refill: 0 - patient encouraged to follow up at the ER for nebulization as soon as possible prior to getting his nebulizer - follow up if symptoms do not improve 2. Acute bronchitis, unspecified organism - NEBULIZER DEVICE, DME,; Take 1 Device by nebulization every 6 (six) hours as needed. Use for asthma attack. Dispense: 1 Device; Refill: 0 - CORONAVIRUS (COVID 19) PCR; Future - CORONAVIRUS (COVID 19) PCR Counseling given: Yes Comment: counsled by Dr Lucas I spent 30 minutes today reviewing the patient's medical record, obtaining history, performing an exam, ordering medications, tests, and/or procedures, documenting in the medical record, referring and/or communicating with other health care providers, counseling and educating the patient, reviewingand communicating test results and coordinating care. Side effects and less common but more severe adverse effects of recommended medical therapies were explained to the patient. Requested MyChart or telephone follow up prn if symptoms change, worsen, or persist, or if side effect of treatment is experienced. DRAGON: This dictation was at least in part performed using [employer] speak and there may be some inherent flaws in this rf microwave engineer due to the nature of this program. Soledad Lucas MD Internal Medicine [facility]. DATABASE ADMINISTRATOR documented in this encounter Plan of Treatment Upcoming Encounters Date Type Department Care Team (Late st Contact Info) Description 08/19/2024 9:00 AM LEAD DATABASE ADMINISTRATOR Office Visit [facility] Medical [facility] Multispecialty Care - [place] [address] [place] [address] [address] [place] [address] Soledad Lucas MD [address] [facility] [address] [place] [address] 12/16/2024 10:40 AM CDT Office Visit [facility] Medical [facility] Multispecialty Care - [facility] [address] [facility] [place] [phone] Ramsey Oakley MD [address] [facility] [address] [place] [address] documented as of this encounter Procedures Procedure Name Priority Date/Time Associated Diagnosis Comments CORONAVIRUS (COVID 19) PCR Routine 06/13/2022 2:51 PM LEAD DATABASE ADMINISTRATOR Acute bronchitis, unspecified organism CORONAVIRUS (COVID-19) INFLUENZA A & B ANTIGEN IA PANEL Routine 06/13/2022 Moderate persistent asthma with acute exacerbation (HHS/HCC) documented in this encounter Results * CORONAVIRUS (COVID 19) PCR (06/13/2022 2:51 PM LEAD DATABASE ADMINISTRATOR) SPEC DESCRIPTION NASAL 06/13/20 22 2:51 PM LEAD DATABASE ADMINISTRATOR [facility] CORONAVIRUS SARS COV 2 PCR (RESP) NEGATIVE NEGATIVE 06/14/2022 1:24 PM LEAD DATABASE ADMINISTRATOR [facility] Comment: THE SARS-CoV-2 TEST HAS BEEN AUTHORIZED BY THE FDA UNDER AN EUA FOR USE BY AUTHORIZED LABORATORIES. PERFORMED BY NUCLEIC ACID AMPLIFICATION PCR FIRST TEST NO 06/13/2022 2:51 PM LEAD DATABASE ADMINISTRATOR [facility] EMPLOYED IN HEALTHCARE NO 06/13/2022 2:51 PM LEAD DATABASE ADMINISTRATOR [facility] SYMPTOMATIC DEFINED BY CDC YES 06/13/2022 2:51 PM LEAD DATABASE ADMINISTRATOR [facility] DATE OF SYMPTOM ONSET 2022060706/13/2022 2:51 PM LEAD DATABASE ADMINISTRATOR [facility] HOSPITALIZATION STATUS NO 06/13/2022 2:51 PM LEAD DATABASE ADMINISTRATOR [facility] PATIENT IN ICU NO 06/13/2022 2:51 PM LEAD DATABASE ADMINISTRATOR [facility] RESIDENT OF [facility] NO 06/13/2022 2:51 PM LEAD DATABASE ADMINISTRATOR [facility] NASOPHARYNGEAL SWAB / Unknown 06/13/2022 2:51 PM LEAD DATABASE ADMINISTRATOR Soledad Lucas MD MICROBIOLOGY - GENERAL ORDERABLE S Final Result [facility] [address] [place] [address], [place] [phone] * CORONAVIRUS (COVID-19) INFLUENZA A & B ANTIGEN IA PANEL (06/13/2022) Pathologist [facility] CORONAVIRUS ANTIGEN IA NEGATIVE NEGATIVE [address], [place] INFLUENZA A NEGATIVE NEGATIVE [address], [place] INFLUENZA B NEGATIVE NEGATIVE [address], [place] Internal Control: VALID VALID [address], [place] NASAL STRUCTURE / Unknown 06/13/2022 Soledad Lucas MD MICROBIOLOGY - GENERAL ORDERABLE S Final Result [address], [place] [address] [place] [address], [place] [phone] documented in this encounter Visit Diagnoses Diagnosis Acute bronchitis, unspecified organism- Primary Moderate persistent asthma with acute exacerbation (HHS/HCC) documented in this encounter Administered Medications Inactive Administered Medications - up to 3 most recent administrations Medication Order MAR Action Action Date Dose Rate Site methylPREDNISolone acetate (DEPO-Medrol) injection 40 mg 40 mg, Intramuscular, Once, 1 dose, On 06/13/22 at 1445, Shake WellIndications:Moderate persistent asthma with acute exacerbation (HHS/HCC) Given 06/13/2022 2:38 PM LEAD DATABASE ADMINISTRATOR 40 mg Right Deltoid documented in this encounter Additional Health Concerns Infection Onset Date Last Indicated Resolved Time COVID-19 Rule Out 06/13/2022 06/13/2022 06/13/2022 2:50 PM LEAD DATABASE ADMINISTRATOR Assessment Noted Time PHQ-9 Depression Total Score: 1 09/29/19 22 10:03 AM LEAD DATABASE ADMINISTRATOR documented as of this encounter Care Teams Section Laborer Relationship Specialty Start Date End Date Soledad Lucas MD [address] [address] PCP - General INTERNAL MEDICINE 09/29/21 documented as of this encounter
--- OUTSIDE RECORDS SUMMARY | 2024-08-03 03:25 | XMS_ITS | Encounter Summary ---
Author Organization [facility] Address [address] [place] [address]. [place] [address] Care Team Providers Care Wet Room Supervisor Name Role Phone Soledad Lucas MD Primary Care Provider Reason for Visit * Reason Onset Date Comments Error 06/10/2022 Encounter Details Date Type Department Care Team (Late st Contact Info) Description 06/10/2022 Telephone [facility] Medical Group Multispecialty Care - [place] [address] [address] [place] [address] Soledad Lucas MD [address] [place] [address] [address] [place] [address] Error Social History Tobacco Use Types Packs/Day Years [...] st Contact Info) Description 08/19/2024 9:00 AM HORSE RACE STARTER Office Visit [facility] Multispecialty Care - [place] [address] [address] [place] [address] Soledad Lucas MD [address] [facility] [address] [place] [address] 12/16/2024 10:40 AM CDT Office Visit [facility] Mult[facility]pecialty Care - [facility] [address] [facility] [place] [id number] Ramsey Oakley MD [address] [facility] [address] [place] [address] documented as of this encounter Visit Diagnoses Not on filedocumented in this encounter Additional Health Concerns Assessment Noted Time PHQ-9 Depression Total Score: 1 09/29/19 22 10:03 AM HORSE RACE STARTER documented as of this encounter Care Teams Wet Room Supervisor Relationship Specialty [place] [address] [place] [address] PCP - General INTERNAL MEDICINE 09/29/21 documented as of this encounter
--- OUTSIDE RECORDS SUMMARY | 2024-08-03 03:25 | XMS_ITS | Encounter Summary ---
Author Organization [facility] Address [address] [place] [address]. [place], [place] [address] [place] [address] Care Team Providers Care Admissions Supervisor Name Role Phone Soledad Lucas MD Primary Care Provider [phone] Encounter Details Date Type Department Care Team (Latest Contact Info) Description 06/13/2022 Travel Social History Tobacco Use Types Packs/Day [...] Coronavirus/COVID-19? No / Unsure 06/13/2022 1:43 PM SALE PROFESSIONAL DIGITAL MARKETING documented as of this encounter Plan of Treatment Upcoming Encounters Date Type Department Care Team (Late st Contact Info) Description 08/19/2024 9:00 AM SALE PROFESSIONAL DIGITAL MARKETING Office Visit [facility] Medical Group Multispecialty Care - [place] [address] [address] [place] [address] Soledad Lucas MD [address] [place] [address] [address] [place] [address] 12/16/2024 10:40 AM CDT Office Visit [facility] Medical Group Multispecialty Care - [facility] [address] [facility] [place] [address] Ramsey Oakley MD 3 [facility] [address] [place] [address] documented as of this encounter Visit Diagnoses Not on filedocumented in this encounter Additional Health Concerns Infection Onset Date Last Indicated Resolved Time COVID-19 Rule Out 06/13/2022 06/13/2022 06/13/2022 2:50 PM SALE PROFESSIONAL DIGITAL MARKETING COVID-19 Rule Out 06/13/2022 06/13/2022 06/14/2022 1:24 PM SALE PROFESSIONAL DIGITAL MARKETING Assessment Noted Time PHQ-9 Depression Total Score: 1 09/29/19 22 10:03 AM SALE PROFESSIONAL DIGITAL MARKETING documented as of this encounter Care Teams Admissions Supervisor Relationship Specialty Start Date End Date Soleadd Lucas MD [address] [address] PCP - General INTERNAL MEDICINE 09/29/21 documented as of this encounter
--- OUTSIDE RECORDS SUMMARY | 2024-08-03 03:25 | XMS_ITS | Encounter Summary ---
Author Organization [facility] Address [address] [place] [address]. [place], [place] [address] [place] [address] Care Team Providers Care Cost Estimator Name Role Phone Soledad Lucas MD Primary Care Provider [phone] Encounter Details Date Type Department Care Team (Latest Contact Info) Description 07/06/2022 Hospital Encounter [facility] [address] [place] [address] Soledad Lucas MD [address] [address] Discharge Disposition: Home or Self [...] Coronavirus/COVID-19? No / Unsure 06/13/2022 1:43 PM AGILITY INSTRUCTOR documented as of this encounter Medications at Time of Discharge NEBULIZER DEVICE, DME,Indications:M oderate persistent asthma with acute exacerbation (HHS/HCC),Acute bronchitis, unspecified organism Take 1 Device by nebulization every 6 (six) hours as needed. Use for asthma attack. 1 Device 06/13/2022 albuterol sulfate HFA 108 (90 Base) MCG/ACT inhalerIndication s:Mild intermittent asthma without complication (HHS/HCC) Inhale 2 puffs into the lungs every 6 (six) hours as needed for Wheezing. 18 g 5 05/30/2022 3 aspirin 81 MG chewable tabletIndications :Left-sided chest pain Chew 1 tablet (81 mg total) by mouth daily. 30 tablet 10/13/2021 3 atorvastatin 40 MG tabletIndications :Mixed hyperlipidemia,Le ft-sided chest pain Take 1 tablet (40 mg total) by mouth nightly at bedtime. 90 tablet 2 10/13/2021 3 cyclobenzaprine (FLEXERIL) 10 MG tabletIndications :Chronic bilateral low back pain with left-sided sciatica Take 1 tablet (10 mg total) by mouth nightly as needed for Muscle Spasms. 30 tablet 2 07/05/2022 2 fluticasone furoate-vilantero l (BREO ELLIPTA) 200-25 MCG/ACT inhalerIndication s:Mild intermittent asthma without complication (HHS/HCC) Inhale 1 puff into the lungs daily. 60 each 2 05/30/2022 3 ipratropium-albut brenda (DUONEB) 0.5-2.5 (3) MG/3ML SolutionIndicatio ns:Moderate persistent asthma with acute exacerbation (HHS/HCC) Take 3 mLs by nebulization every 6 (six) hours as needed. 360 mL 06/13/2022 3 losartan-hydroCHL OROthiazide 50-12.5 MG tabletIndications :Primary hypertension Take 1 tablet by mouth daily. 90 tablet 1 02/04/2022 2 metFORMIN (GLUCOPHAGE) 500 MG tabletIndications :Prediabetes Take [...] for Pain. Indications: Chronic Pain 30 tablet 07/05/2022 3 vitamin D2, ergocalciferol, 98485 UNITS capsuleIndication s:Vitamin D deficiency Take 1 capsule (50,000 Units total) by mouth weekly. 12 capsule 1 09/29/2021 3 documented as of this encounter Plan of Treatment Upcoming Encounters Date Type Department Care Team (Late st Contact Info) Description 08/19/2024 9:00 AM AGILITY INSTRUCTOR [facility] [place] [address] [address] [place] [address] Soledad Lucas MD [address] [place] [address] 12/16/2024 10:40 AM CDT Office Visit [facility] [address] [facility], [address] [place] [address] Ramsey Oakley MD 3 [facility] [address] [place] [address] documented as of this encounter Visit Diagnoses Not on filedocumented in this encounter Additional Health Concerns Assessment Noted Time PHQ-9 Depression Total Score: 1 09/29/19 10:03 AM AGILITY INSTRUCTOR documented as of this encounter Care Teams Cost Estimator Relationship Specialty Start Date End Date Soledad Lucas MD [address] [place] [address] PCP - General INTERNAL MEDICINE 09/29/21 documented as of this encounter
--- OUTSIDE RECORDS SUMMARY | 2024-08-03 03:25 | XMS_ITS | Encounter Summary ---
Author Organization [facility] Address [address] [place] [address]. [place], [place] [address] [place] [address] Care Team Providers Care Children Librarian Name Role Phone Soledad Lucas MD Primary Care Provider [phone] Encounter Details Date Type Department Care Team (Latest Contact Info) Description 06/13/2022 Scan HEALTH INFO SRVCS Scanned, Doc Med [...] Coronavirus/COVID-19? No / Unsure 06/13/2022 1:43 PM WOUND CARE RN documented as of this encounter Plan of Treatment Upcoming Encounters Date Type Department Care Team (Late st Contact Info) Description 08/19/2024 9:00 AM WOUND CARE RN Office Visit [facility] Mult[facility]pec[facility]ty Care - [place] [address] [address] [place] [address] Soledad Lucas MD [address] [place] [address] 12/16/2024 10:40 AM CDT Office Visit [facility] Medical [facility] Mult[facility]pecialty Care - [facility] 3 [facility] [address] [place] [address] Ramsey Oakley MD 3 [facility] [address] [place] [address] documented as of this encounter Visit Diagnoses Not on filedocumented in this encounter Additional Health Concerns Infection Onset Date Last Indicated Resolved Time COVID-19 Rule Out 06/13/2022 06/13/2022 06/13/2022 2:50 PM WOUND CARE RN COVID-19 Rule Out 06/13/2022 06/13/2022 06/14/2022 1:24 PM WOUND CARE RN Assessment Noted Time PHQ-9 Depression Total Score: 1 09/29/19 10:03 AM WOUND CARE RN documented as of this encounter Care Teams Children Librarian Relationship Specialty Start Date End Date Soledad Lucas MD [address] [address] PCP - General INTERNAL MEDICINE 09/29/21 documented as of this encounter
--- OUTSIDE RECORDS SUMMARY | 2024-08-03 03:25 | XMS_ITS | Encounter Summary ---
Author Organization [facility] - [facility] Address [address] [place] [address]. [address] [address] Care Team Providers Care Master Motorcycle Technician Name Role Phone Soledad Lucas MD Primary Care Provider [phone] Reason for Visit * Reason Onset Date Comments Medication 03/17/2023 Encounter Details Date Type Department Care Team (Late st Contact Info) Description 03/17/2023 Telephone [facility] Multispecialty Care - [place] [address] [address] [place] [address] Soledad Lucas MD [address] [place] [address] [address] [place] [address] Medication Social History Tobacco Use [...] encounter Progress Notes * Koko Brand - 03/22/2023 3:06 PM CDT Called patient to schedule physical and come in to sign new CSA. No answer and no VM set up to leave a message. Will attempt to call again. * Soledad Lucas MD - 03/17/2023 6:08 PM CDT Patient requesting for refill on oxycodone. He is due for his physical. Please call and schedule for his physical. His controlled substance agreement form has . Please call him to sign a controlled substance agreement form as soon as possible with his physical. Thank you. * Koko Brand - 03/17/2023 8:55 AM CDT Patient called and requested a refill of his Oxycodone (percocet) and Losartan please. documented in this encounter Plan of Treatment Upcoming Encounters Date Type Department Care Team (Late st Contact Info) Description 08/19/2024 9:00 AM MASON LINER [facility] [place] [address] [address] [place] [address] [place] [address] [place] [address] [address] [place] [address] 12/16/2024 10:40 AM CDT Office Visit [facility] Care - [facility] 3 [facility] [address] [place] [address] Ramsey Oakley MD 3 [facility] [address] [place] [address] documented as of this encounter Visit Diagnoses Diagnosis Primary hypertension Unspecified essential hypertension Cervical radiculopathy Brachial neuritis or radiculitis nos Chronic bilateral low back pain with left-sided sciatica documented in this encounter Additional Health Concerns Assessment Noted Time PHQ-9 Depression Total Score: 1 09/29/19 22 10:03 AM MASON LINER documented as of this encounter Care Teams Master Motorcycle Technician Relationship Specialty Start Date End Date Soledad Lucas MD [address] [address] PCP - General INTERNAL MEDICINE 09/29/21 documented as of this encounter
--- OUTSIDE RECORDS SUMMARY | 2024-08-03 03:25 | XMS_ITS | Encounter Summary ---
Author Organization [facility] - [facility] Address [address] [place] [address]. [address] [address] Care Team Providers Care Jeweler Apprentice Name Role Phone Soledad Lucas MD Primary Care Provider [phone] Reason for Visit * Reason Onset Date Comments Medication Request 07/05/2022 Encounter Details Date Type Department Care Team (Late st Contact Info) Description 07/05/2022 Telephone [facility] Multispecialty Care - [place] [address] [address] [place] [address] Soledad Lucas MD [address] [place] [address] [address] [place] [address] Medication Request Social History Tobacco [...] Coronavirus/COVID-19? No / Unsure 06/13/2022 1:43 PM ENTRY LEVEL WEB DEVELOPER documented as of this encounter Progress Notes * Soledad Lucas MD - 07/05/2022 4:11 PM CST Referral start oxycodone acetaminophen and Flexeril sent. Patient not on Robaxin at this time. Y LEVEL WEB DEVELOPER * Hanna Brewer - 07/05/2022 11:40 AM CST Med refill Oxycodone 7.5 Mg Cyclobenzaprine 10 Mg [facility] [place] Y LEVEL WEB DEVELOPER documented in this encounter Plan of Treatment Upcoming Encounters Date Type Department Care Team (Late st Contact Info) Description 08/19/2024 9:00 AM ENTRY LEVEL WEB DEVELOPER [facility] - [place] [address] [address] [place] [address] Soledad Lucas MD [facility] [address] 12/16/2024 10:40 AM CDT [facility] 3 [facility] [address] [place] [address] Ramsey Oakley MD 3 [facility] [address] [place] [address] documented as of this encounter Visit Diagnoses Diagnosis Chronic bilateral low back pain with left-sided sciatica- Primary Primary osteoarthritis of left knee Primary localized osteoarthrosis, lower leg documented in this encounter Additional Health Concerns Assessment Noted Time PHQ-9 Depression Total Score: 1 09/29/19 22 10:03 AM ENTRY LEVEL WEB DEVELOPER documented as of this encounter Care Teams Jeweler Apprentice Relationship Specialty Start Date End Date Soledad Lucas MD [address] [place] [address] PCP - General INTERNAL MEDICINE 09/29/21 documented as of this encounter
--- OUTSIDE RECORDS SUMMARY | 2024-08-03 03:25 | XMS_ITS | Encounter Summary ---
Author Organization [facility] - [facility] Address [address] [place] [address]. [address] [address] Care Team Providers Care Precision Aircraft Structure Assembler Name Role Phone Soledad Lucas MD Primary Care Provider [phone] Reason for Visit * Reason Onset Date Comments Medication 12/05/2022 Encounter Details Date Type Department Care Team (Late st Contact Info) Description 12/05/2022 Telephone [facility] Medical Group Multispecialty Care - [place] [address] [address] [place] [address] [place] [address] [place] [address] [address] [place] [address] Medication Social History Tobacco Use [...] Progress Notes * Soledad Lucas MD - 12/05/2022 5:29 PM CDT Percocet refilled. * Koko Brand - 12/05/2022 9:38 AM CDT Patient called and requested a refill of his Percocet 7.5-325 please. Thank you. documented in this encounter Plan of Treatment Upcoming Encounters Date Type Department Care Team (Late st Contact Info) Description 08/19/2024 9:00 AM SHOT BAGGER [facility] - [place] [address] [address] [place] [address] Soledad Lucas MD [address] [place] [address] 12/16/2024 10:40 AM CDT [facility] 3 [facility] [address] [place] [address] Ramsey Oakley MD 3 [facility] [address] [place] [address] documented as of this encounter Visit Diagnoses Diagnosis Primary osteoarthritis of left knee Primary localized osteoarthrosis, lower leg Chronic bilateral low back pain with left-sided sciatica documented in this encounter Additional Health Concerns Assessment Noted Time PHQ-9 Depression Total Score: 1 09/29/19 22 10:03 AM SHOT BAGGER documented as of this encounter Care Teams Precision Aircraft Structure Assembler Relationship Specialty Start Date End Date Soledad Lucas MD [address] [place] [address] PCP - General INTERNAL MEDICINE 09/29/21 documented as of this encounter
--- OUTSIDE RECORDS SUMMARY | 2024-08-03 03:25 | XMS_ITS | Encounter Summary ---
Author Organization [facility] - [facility] Address [address] [place] [address]. [place], [place] [address] [place] [address] Care Team Providers Care Analytical Research Chemist Name Role Phone Soledad Lucas MD Primary Care Provider [phone] Reason for Visit * Reason Onset Date Comments Pre-visit Gap Closure 09/28/2022 Encounter Details Date Type Department Care Team (Latest Contact Info) Description 09/28/2022 Patient Outreach [facility] Medical Group Multispecialty Care - [address] [place] [address] Rebecca Sheth MA Pre-visit Gap Closure Social History Tobacco Use Types Packs/Day Years [...] suspected to have Coronavirus/COVID-19? No / Unsure 10/14/2022 1:36 PM FISHERIES SPECIALIST documented as of this encounter Progress Notes * Nidhi Sheth - 09/28/2022 3:00 PM CST Preventive Screenings: Breast Cancer Screening: N/A Notes: Colorectal Cancer Screening: Up to Date Notes: Diabetic Eye Exam: N/A Notes: Falls Risk Screening: Needs Follow Up Notes: Tobacco Cessation: N/A Notes: Labs: BMP/CMP: N/A Notes: Hemoglobin A1c: N/A Notes: Lipid: N/A Notes: Urine Albumin-Creatinine Ratio: N/A Notes: Immunizations: Influenza: Needs Follow Up Notes: Shingles: Needs Follow Up Notes: ERIES SPECIALIST documented in this encounter Plan of Treatment Upcoming Encounters Date Type Department Care Team (Late st Contact Info) Description 08/19/2024 9:00 AM FISHERIES SPECIALIST [facility] - [place] [address] [address] [place] [address] Soledad Lucas MD [address] [place] [address] 12/16/2024 10:40 AM CDT Office Visit [facility] 3 [facility], [address] [place] [address] Ramsey Oakley MD [address] [facility] [address] [place] [address] documented as of this encounter Visit Diagnoses Not on filedocumented in this encounter Additional Health Concerns Assessment Noted Time PHQ-9 Depression Total Score: 1 09/29/19 10:03 AM FISHERIES SPECIALIST documented as of this encounter Care Teams Analytical Research Chemist Relationship Specialty Start Date End Date Soledad Lucas MD [address] [place] [address] PCP - General INTERNAL MEDICINE 09/29/21 documented as of this encounter
--- OUTSIDE RECORDS SUMMARY | 2024-08-03 03:25 | XMS_ITS | Encounter Summary ---
Author Organization [facility] Address [address] [place] [address]. [place], [place] [address] [place] [address] Care Team Providers Care Testboard Operator Name Role Phone Soledad Lucas MD Primary Care Provider [phone] Encounter Details Date Type Department Care Team (Latest Contact Info) Description 10/14/2022 Travel Social History Tobacco Use Types Packs/Day [...] Coronavirus/COVID-19? No / Unsure 10/14/2022 1:36 PM ELECTROPLATING LABORER documented as of this encounter Plan of Treatment Upcoming Encounters Date Type Department Care Team (Late st Contact Info) Description 08/19/2024 9:00 AM ELECTROPLATING LABORER Office Visit [facility] Medical Group Multispecialty Care - [place] [address] [address] [place] [address] Soledad Lucas MD [address] [place] [address] [address] [place] [address] 12/16/2024 10:40 AM CDT Office Visit [facility]pecialty Care - [facility] 3 [facility] [address] [place] [address] Ramsey Oakley MD 3 [facility] [address] [place] [address] documented as of this encounter Visit Diagnoses Not on filedocumented in this encounter Additional Health Concerns Assessment Noted Time PHQ-9 Depression Total Score: 1 09/29/19 22 10:03 AM ELECTROPLATING LABORER documented as of this encounter Care Teams Testboard Operator Relationship Specialty Start Date End Date Soledad Lucas MD [address] [facility] [address] [place] [address] PCP - General INTERNAL MEDICINE 09/29/21 documented as of this encounter
--- OUTSIDE RECORDS SUMMARY | 2024-08-03 03:25 | XMS_ITS | Encounter Summary ---
Author Organization [facility] Address [address] [place] [address]. [place], [place] [address] [place] [address] Care Team Providers Care Grain Spouter Name Role Phone Soledad Lucas MD Primary Care Provider [phone] Encounter Details Date Type Department Care Team (Latest Contact Info) Description 10/14/2022 7:33 AM BELL CLEANER - 10/14/2022 11:59 PM BELL CLEANER Hospital Encounter [facility] [address] [place] [address] Soledad Lucas MD [address] [facility] [address] [place] [address] Discharge Disposition: Home or Self Care [...] Coronavirus/COVID-19? No / Unsure 10/14/2022 1:36 PM BELL CLEANER documented as of this encounter Medications at [...] 30 tablet 09/26/2022 3 vitamin D2, ergocalciferol, [address] UNITS capsuleIndication s:Vitamin D deficiency Take 1 capsule (50,000 Units total) by mouth weekly. 12 capsule 1 09/29/2021 3 documented as of this encounter Plan of Treatment Upcoming Encounters Date Type Department Care Team (Late st Contact Info) Description 08/19/2024 9:00 AM BELL CLEANER [facility] - [place] [address] [address] [place] [address] Soledad Lucas MD [address] [place] [address] 157 [place] [address] 12/16/2024 10:40 AM CDT Office Visit [facility] 3 [facility], [address] [place] [address] Ramsey Oakley MD 3 [facility] [address] [place] [address] documented as of this encounter Procedures Procedure Name Priority Date/Time Associated Diagnosis Comments CELL COUNT W/ DIFF BODY FLUID Routine 10/14/2022 2:15 PM BELL CLEANER documented in this encounter Results * CELL COUNT W/ DIFF BODY FLUID (10/14/2022 2:15 PM BELL CLEANER) SOURCE (FLUID) LEFT KNEE 10/15/2022 7:43 AM BELL CLEANER [facility] WBC (FLUID) 0.103 x10'3/uL 10/15/2022 7:43 AM BELL CLEANER [facility] Comment:REFERENCE RANGE NOT ESTABLISHED RBC (FLUID) <0.002 x10'6/uL 10/15/2022 7:43 AM BELL CLEANER [facility] Comment:REFERENCE RANGE NOT ESTABLISHED DIFFERENTIAL MANUAL DIFFERENTIAL PERFORMED ON CONCENTRATED CYTOSPIN 10/15/2022 7:34 AM BELL CLEANER [facility] CELLS COUNTED 100 No COUNTED 10/15/2022 7:54 AM BELL CLEANER [facility] SEGS (FLUID) 5 % 10/15/2022 7:53 AM BELL CLEANER [facility] LYMPHS (FLUID) 20 % 10/15/2022 7:53 AM BELL CLEANER [facility] OTHER MONONUCLEAR CELLS (FLD) 75 % 10/15/2022 7:53 AM BELL CLEANER [facility] STRUCTURE OF LEFT KNEE REGION / Unknown 10/14/2022 2:15 PM BELL CLEANER Soledad Lucas MD BODY FLUIDS AND STOOLS ORDERABLE S Final Result [facility] [address] [place] [address], [id number] documented in this encounter Visit Diagnoses Not on filedocumented in this encounter Additional Health Concerns Assessment Noted Time PHQ-9 Depression Total Score: 1 09/29/19 22 10:03 AM BELL CLEANER documented as of this encounter Care Teams Grain Spouter Relationship Specialty Start Date End Date Soledad Lucas MD [address] [address] PCP - General INTERNAL MEDICINE 09/29/21 documented as of this encounter
--- OUTSIDE RECORDS SUMMARY | 2024-08-03 03:25 | XMS_ITS | Encounter Summary ---
Author Organization [facility] - [facility] Address [address] [place] [address]. [address] [address] Care Team Providers Care Supervisor Pressing Department Name Role Phone Soledad Lucas MD Primary Care Provider [phone] Reason for Visit * Reason Comments Perspiration Hands and feet feel cold, had temp 100 yesterday Encounter Details Date Type Department Care Team (Latest Contact Info) Description 07/06/2022 10:00 AM SUGGESTION CLERK Telemedicine [facility] Multispecialty Care - [place] [address] [address] [address] [place] [address] Soledad Lucas MD [address] [place] [address] [address] [place] [address] Perspiration (Hands and feet feel cold, had temp 100 yesterday) Social History Tobacco Use Types Packs/Day Years Used Date Smoking Tobacco: Never Smokeless Tobacco: Never Tobacco Cessation:Counseling Given: Not Answered Comments:counsled by Dr Lucas Alcohol Use Standard [...] suspected to have Coronavirus/COVID-19? No / Unsure 07/06/2022 9:53 AM SUGGESTION CLERK documented as of this encounter Last Filed Vital Signs Vital Sign Reading Time Taken Comments Blood Pressure 139/87 07/06/2022 2:19 PM SUGGESTION CLERK Pulse 85 07/06/2022 1:24 PM SUGGESTION CLERK Temperature 36.9 ??C (98.4 ??F) 07/06/2022 1:24 PM CS T Respiratory Rate 18 07/06/2022 1:24 PM SUGGESTION CLERK Oxygen Saturation 99% 07/06/2022 1:24 PM SUGGESTION CLERK Inhaled Oxygen Concentration - - Weight 100.2 kg (221 lb) 07/06/2022 1:24 PM SUGGESTION CLERK Height 185.4 cm (6' 1 ) 07/06/2022 1:24 PM SUGGESTION CLERK Body Mass Index 29.16 07/06/2022 1:24 PM SUGGESTION CLERK documented in this encounter Patient Instructions * Patient Instructions* Soledad Lucas MD - 07/06/2022 10:00 AM SUGGESTION CLERK Follow up if symptoms do not get better. ESTION CLERK * Attachments The following attachments cannot be sent through Care Everywhere. * Strep Throat Discharge Instructions (Japanese) documented in this encounter Progress Notes * Soledad Lucas MD - 07/06/2022 10:00 AM CSTSummary: Acute visit notes TELE- VISIT NOTES I introduced and identified myself, received verbal consent from the patient to proceed with this video visit and made the patient aware that the same confidentiality and information technology audit manager practices apply. The patient joined the video visit from Home. I completed the virtual visit from Office. The following clinical staff helped with this visit IDALMIS: Julia Lakhani Total Time Spent in Minutes: 30 Reason for Visit: Perspiration (Hands and feet feel cold, had temp 100 yesterday) History of Present Illness: Juliet Stout is a 60-year-old male here for telemedicine visit for concerns about upper respiratory symptoms that started about 1 day ago. According to patient who hasunderlining asthma, he has been compliant with using all his inhalers as directed. He is unaware ofany recent sick contacts. He had been in his usual state of health until he started to experience some sore throat associated with a mild cough that was productive of light greenish sputum. Initiallyhad a sore throat that has gradually gotten better. He did note a fever whilst at home with temperature 100.4 ??F. Symptoms have been associated with intermittent chills and feeling as though his extr emities are cold. He did also notice mild sinus discomfort. No wheezing or chest tightness. Did notice mild fatigue. As a result of persistent symptoms, patient called off work today to return home. He does not need any work excuse note at this time. Given his underlining history of asthma and inability to provide vital signs, an initial video visit was carried out and patient was encouraged to come to the office for vital signs to be checked and for test to be carried out. Patient agreeable. ROS: Review of Systems Constitutional: Negative for activity change, appetite change, chills, fatigue, fever and unexpected weight change. HENT: Positive for congestion, postnasal drip, rhinorrhea, sinus pressure, sinus pain and sore throat. Negative for hearing loss, mouth sores, tinnitus and voice change. Eyes: Negative for pain, discharge, redness, itching and visual disturbance. Respiratory: Positive for cough. Negative for chest tightness, shortness of breath and wheezing. Cardiovascular: Negative for chest pain, palpitations and leg swelling. Gastrointestinal: Negative for abdominal distention, abdominal pain, blood in stool, constipation, diarrhea, nausea and vomiting. Genitourinary: Negative for decreased urine volume, difficulty urinating, dysuria, flank pain, frequency, hematuria and urgency. Musculoskeletal: Negative for arthralgias, back pain, gait problem, joint swelling and myalgias. Skin: Negative for pallor, rash and wound. Neurological: Negative for dizziness, tremors, syncope, weakness, light- headedness and headaches. Hematological: Negative for adenopathy. Does not bruise/bleed easily. Psychiatric/Behavioral: Negative for agitation, behavioral problems, confusion, decreased concentration, hallucinations and sleep disturbance. The patient is not hyperactive. Medications: Current Outpatient Medications: ??? albuterol sulfate HFA 108 (90 Base) MCG/ACT inhaler, Inhale 2 puffs into the lungs every 6 (six) hours as needed for Wheezing., Disp: 18 g, Rfl: 5 ??? amoxicillin-clavulanate (AUGMENTIN) 875-125 MG tablet, Take 1 tablet (875 mg total) by mouth 2 (two) times daily for 7 days., Disp: 14 tablet, Rfl: 0 ??? aspirin 81 MG chewable tablet, Chew 1 tablet (81 mg total) by mouth daily., Disp: 30 tablet, Rfl: 0 ??? atorvastatin 40 MG tablet, Take 1 tablet (40 mg total) by mouth nightly at bedtime., Disp: 90 tablet, Rfl: 2 ??? benzonatate (TESSALON PERLES) 100 MG capsule, Take 1 capsule (100 mg total) by mouth 3 (three) times daily as needed for Cough., Disp: 20 capsule, Rfl: 0 ??? cyclobenzaprine (FLEXERIL) 10 MG tablet, Take 1 tablet (10 mg total) by mouth nightly as neededfor Muscle Spasms., Disp: 30 tablet, Rfl: 2 ??? fluticasone furoate-vilanterol (BREO ELLIPTA) 200-25 MCG/ACT inhaler, Inhale 1 puff into the lungs daily., Disp: 60 each, Rfl: 2 ??? ipratropium-albuterol (DUONEB) 0.5-2.5 (3) MG/3ML Solution, Take 3 mLs by nebulization every 6 (six) hours as needed., Disp: 360 mL, Rfl: 0 ??? losartan-hydroCHLOROthiazide 50-12.5 MG tablet, Take 1 tablet by mouth daily., Disp: 90 tablet,Rfl: 1 ??? metFORMIN (GLUCOPHAGE) 500 MG tablet, Take 1 tablet (500 mg total) by mouth daily with breakfast., Disp: 60 tablet, Rfl: 3 ??? omeprazole (PRILOSEC) 40 MG capsule, TAKE 1 CAPSULE(40 MG) BY MOUTH DAILY, Disp: 30 capsule, Rfl: 0 ??? oxyCODONE-acetaminophen (PERCOCET) 7.5-325 MG tablet, Take 1 tablet by mouth daily as needed for Pain. Indications: Chronic Pain, Disp: 30 tablet, Rfl: 0 ??? predniSONE (DELTASONE) 20 MG tablet, Take 2 tablets (40 mg total) by mouth daily for 5 days., Disp: 10 tablet, Rfl: 0 ??? vitamin D2, ergocalciferol, 45420 UNITS capsule, Take 1 capsule (50,000 Units total) by mouth weekly., Disp: 12 capsule, Rfl: 1 ??? NEBULIZER DEVICE, DME,, Take 1 Device by nebulization every 6 (six) hours as needed. Use for asthma attack., Disp: 1 Device, Rfl: 0 Current Facility-Administered Medications: ??? BUpivacaine (PF) (MARCAINE) 0.25 % injection 5 mL, 5 mL, Intrapleural, Once, Soledad Lucas MD Allergies Allergen Reactions ??? Lisinopril Swelling Swollen lips Past Medical History: Diagnosis Date ??? Arthritis ??? Hypertension Past Surgical History: Procedure Laterality Date ??? KNEE ARTHROSCOPY Right ??? KNEE SURGERY Right Unsure of exactly what they did to patella. Social History Socioeconomic History ??? Marital status: Legally Tobacco Use ??? Smoking status: Never ??? Smokeless tobacco: Never ??? Tobacco comments: counsled by Dr Lucas Vaping Use ??? Vaping Use: Never used Substance and Sexual Activity ??? Alcohol use: Yes Alcohol/week: 11.7 standard drinks Types: 7 Cans of beer per week Comment: Socially ??? Drug use: Yes Types: Marijuana ??? Sexual activity: Yes Family History Problem Relation Name Age of Onset ??? Cancer Mother ??? Prostate Cancer Father ??? Cancer Sister ??? Diabetes Sister ??? Cancer Brother Family Status Relation Name Status ??? Mother ??? Father ??? Sister (Not Specified) ??? Brother Physical examination limited as visit done virtually. Patient however did come to the office later today. His lung exam was normal. He was able to complete sentences. No wheezing appreciated. He doesnot appear ill looking. His oral exam was with mild erythema otherwise unremarkable. Oxygen saturation was reasonable at 99%. Patient was afebrile with a temperature of 98.4 ??F. His blood pressures were stable. Diagnoses/Impression: 1. Acute streptococcal pharyngitis CORONAVIRUS (COVID-19) INFLUENZA A & B ANTIGEN IA PANEL RAPID STREP A benzonatate (TESSALON PERLES) 100 MG capsule CULTURE STREP A CORONAVIRUS (COVID 19) PCR amoxicillin-clavulanate (AUGMENTIN) 875-125 MG tablet predniSONE (DELTASONE) 20 MG tablet DISCONTINUED: predniSONE (DELTASONE) 20 MG tablet DISCONTINUED: predniSONE (DELTASONE) 20 MG tablet 2. Acute pharyngitis, unspecified etiology CORONAVIRUS (COVID-19) INFLUENZA A & B ANTIGEN IA PANEL 1. Acute streptococcal pharyngitis - CORONAVIRUS (COVID-19) INFLUENZA A & B ANTIGEN IA PANEL - RAPID STREP A - predniSONE (DELTASONE) 20 MG tablet; Take 2 tablet (20 mg total) by mouth daily for 5 days. Dispense: 10 tablet; Refill: 0 - benzonatate (TESSALON PERLES) 100 MG capsule; Take 1 capsule (100 mg total) by mouth 3 (three) times daily as needed for Cough. Dispense: 20 capsule; Refill: 0 - CULTURE STREP A; Future - CORONAVIRUS (COVID 19) PCR; Future - amoxicillin-clavulanate (AUGMENTIN) 875-125 MG tablet; Take 1 tablet (875 mg total) by mouth 2 (two) times daily for 7 days. Dispense: 14 tablet; Refill: 0 - CORONAVIRUS (COVID 19) PCR - CULTURE STREP A -Initial strep test came back positive. All other test came back negative. Patient encouraged to complete medications as directed. His lung exam during the office follow-up today was normal without any crackles or wheezing. His vital signs appear stable. His oxygen saturation was stable. He will continue with all his other inhalers as directed and follow-up closely if symptoms worsen. 2. Acute pharyngitis, unspecified etiology - CORONAVIRUS (COVID-19) INFLUENZA A & B ANTIGEN IA PANEL Orders Placed This Encounter ??? DISCONTD: predniSONE (DELTASONE) 20 MG tablet ??? benzonatate (TESSALON PERLES) 100 MG capsule ??? amoxicillin-clavulanate (AUGMENTIN) 875-125 MG tablet ??? DISCONTD: predniSONE (DELTASONE) 20 MG tablet ??? predniSONE (DELTASONE) 20 MG tablet ? ? CORONAVIRUS (COVID-19) INFLUENZA A & B ANTIGEN IA PANEL ??? RAPID STREP A ??? CULTURE STREP A ??? CORONAVIRUS (COVID 19) PCR I spent 30 minutes today reviewing the patient's medical record, obtaining history, performing an exam, ordering medications, tests, and/or procedures, documenting in the medical record, referring and/or communicating with other health care providers, counseling and educating the patient, reviewingand communicating test results and coordinating care. SOLEDAD LUCAS MD Referring Provider: No ref. provider found PCP: SOLEDAD LUCAS MD ESTION CLERK documented in this encounter Plan of Treatment Upcoming Encounters Date Type Department Care Team (Late st Contact Info) Description 08/19/2024 9:00 AM SUGGESTION CLERK [facility] [address] [place] [address] Soledad Lucas MD [address] [facility] [address] [place] [address] 12/16/2024 10:40 AM CDT [facility] [address] [facility] [place] [id number] Ramsey Oakley MD [address] [facility] [address] [place] [address] documented as of this encounter Procedures Procedure Name Priority Date/Time Associated Diagnosis Comments CULTURE STREP A Routine 07/06/2022 3:22 PM SUGGESTION CLERK Acute streptococcal pharyngitis CORONAVIRUS (COVID 19) PCR Routine 07/06/2022 3:22 PM SUGGESTION CLERK Acute streptococcal pharyngitis CORONAVIRUS (COVID-19) INFLUENZA A & B ANTIGEN IA PANEL Routine 07/06/2022 Acute streptococcal pharyngitis Acute pharyngitis, unspecified etiology RAPID STREP A Routine 07/06/2022 Acute streptococcal pharyngitis documented in this encounter Results * CORONAVIRUS (COVID 19) PCR (07/06/2022 3:22 PM SUGGESTION CLERK) SPEC DESCRIPTION NASAL 07/06/20 3:23 PM SUGGESTION CLERK [facility] CORONAVIRUS SARS COV 2 PCR (RESP) NEGATIVE NEGATIVE 07/08/2022 1:45 AM SUGGESTION CLERK [facility] Comment: THE SARS-CoV-2 TEST HAS BEEN AUTHORIZED BY THE FDA UNDER AN EUA FOR USE BY AUTHORIZED LABORATORIES. PERFORMED BY NUCLEIC ACID AMPLIFICATION PCR FIRST TEST YES 07/06/2022 3:23 PM SUGGESTION CLERK [facility] EMPLOYED IN HEALTHCARE NO 07/06/2022 3:23 PM SUGGESTION CLERK [facility] SYMPTOMATIC DEFINED BY CDC YES 07/06/2022 3:23 PM SUGGESTION CLERK [facility] DATE OF SYMPTOM ONSET 2022070507/06/2022 3:23 PM SUGGESTION CLERK [facility] HOSPITALIZATION STATUS NO 07/06/2022 3:23 PM SUGGESTION CLERK [facility] PATIENT IN ICU NO 07/06/2022 3:23 PM SUGGESTION CLERK [facility] RESIDENT OF [facility] NO 07/06/2022 3:23 PM SUGGESTION CLERK [facility] NASOPHARYNGEAL SWAB / Unknown 07/06/2022 3:22 PM SUGGESTION CLERK Soledad Lucas MD MICROBIOLOGY - GENERAL ORDERABLE S Final Result [facility] [address] [place] [address], * CULTURE STREP A (07/06/2022 3:22 PM SUGGESTION CLERK) SPEC DESCRIPTION THROAT 07/06/2022 3:23 PM SUGGESTION CLERK [facility] SPECIAL REQUESTS NO SPECIAL REQUEST 07/06/2022 3:23 PM SUGGESTION CLERK [facility] CULTURE RESULT NO STREPTOCOCCUS PYOGENES (GROUP A) ISOLATED 07/08/2022 9:41 PM SUGGESTION CLERK [facility] THROAT SWAB / Unknown 07/06/2022 3:22 PM SUGGESTION CLERK 07/06/2022 8:52 PM SUGGESTION CLERK us Soledad Lucas MD MICROBIOLOGY - GENERAL ORDERABLE S Final Result [facility] [address] [place] [address], [place] [phone] [id number] * RAPID STREP A (07/06/2022) RAPID STREP TEST POSITIVE NEGATIVE [id number], [place] Internal Control: VALID VALID [id number], [place] STRUCTURE OF ANTERIOR PORTION OF NECK / Unknown 07/06/2022 us Soledad Lucas MD MICROBIOLOGY - GENERAL ORDERABLE S Final Result Performing Organization Address [facility]/ZIP Co de Phone Number [id number], [place] [address] [place] [address], [place] [phone] * CORONAVIRUS (COVID-19) INFLUENZA A & B ANTIGEN IA PANEL (07/06/2022) CORONAVIRUS ANTIGEN IA NEGATIVE NEGATIVE [id number], [place] INFLUENZA A NEGATIVE NEGATIVE [id number], [place] INFLUENZA B NEGATIVE NEGATIVE [id number], [place] Internal Control: VALID VALID [id number], [place] NASAL STRUCTURE / Unknown 07/06/2022 us Soledad Lucas MD MICROBIOLOGY - GENERAL ORDERABLE S Final Result Performing Organization Address City/[facility]/ZIP Co de Phone Number [id number], [facility] [address] [place] [address], [place] [phone] documented in this encounter Visit Diagnoses Diagnosis Acute streptococcal pharyngitis- Primary Streptococcal sore throat Acute pharyngitis, unspecified etiology documented in this encounter Additional Health Concerns Assessment Noted Time PHQ-9 Depression Total Score: 1 09/29/19 22 10:03 AM SUGGESTION CLERK documented as of this encounter Care Teams Supervisor Pressing Department Relationship Specialty Start Date End Date Soledad Lucas MD [address] [address] PCP - General INTERNAL MEDICINE 09/29/21 documented as of this encounter
--- OUTSIDE RECORDS SUMMARY | 2024-08-03 03:25 | XMS_ITS | Encounter Summary ---
Author Organization [facility] Address [address] [place] [address]. [place], [place] [address] [place] [address] Care Team Providers Care Development Chemist Name Role Phone Soledad Lucas MD Primary Care Provider [phone] Reason for Visit * Reason Onset Date Comments Called To Cancel Office Appt. 05/30/2022 Encounter Details Date Type Department Care Team (Late st Contact Info) Description 05/30/2022 Telephone [facility] Physical Therapy [address] [place] [address] Rene Segura, PT [place], [place] [id number] Called To Cancel Office Appt. Social History [...] st Contact Info) Description 08/19/2024 9:00 AM BRANCH BANKER Office Visit [facility] Multispecialty Care - [address] [address] [address] [place] [address] Soledad Lucas MD [address] [facility] [address] [place] [address] 12/16/2024 10:40 AM CDT Office Visit [facility]ispec[facility]ty [facility] [address] [facility] [place] [address] Ramsey Oakley MD [address] [facility] [address] [place] [address] documented as of this encounter Visit Diagnoses Not on filedocumented in this encounter Additional Health Concerns Assessment Noted Time PHQ-9 Depression Total Score: 1 09/29/19 10:03 AM BRANCH BANKER documented as of this encounter Care Teams Development Chemist Relationship Specialty Start Date End Date Soledad Lucas MD [address] [facility] [address] [place] [address] PCP - General INTERNAL MEDICINE 09/29/21 documented as of this encounter
--- OUTSIDE RECORDS SUMMARY | 2024-08-03 03:25 | XMS_ITS | Encounter Summary ---
Author Organization [facility] Address [address] [place] [address]. [place], [place] [address] [place] [address] Care Team Providers Care General Duty Nurse Name Role Phone Soledad Lucas MD Primary Care Provider [phone] Encounter Details Date Type Department Care Team (Latest Contact Info) Description 05/18/2022 Travel Social History Tobacco Use Types Packs/Day [...] suspected to have Coronavirus/COVID-19? No / Unsure 05/18/2022 3:43 PM CDT documented as of this encounter Plan of Treatment Upcoming Encounters Date Type Department Care Team (Late st Contact Info) Description 08/19/2024 9:00 AM URBAN DESIGNER Office Visit [facility] Multispecialty Care - [place] [address] [address] [address] [place] [address] Soledad Lucas MD [address] [place] [address] [address] [place] [address] 12/16/2024 10:40 AM CDT Office Visit [facility] Multispecialty Care - [facility] [address] [facility] [place] [address] Ramsey Oakley MD [address] [facility] [address] [place] [address] documented as of this encounter Visit Diagnoses Not on filedocumented in this encounter Additional Health Concerns Assessment Noted Time PHQ-9 Depression Total Score: 1 09/29/19 22 10:03 AM URBAN DESIGNER documented as of this encounter Care Teams General Duty Nurse Relationship Specialty Start Date End Date Soledad Lucas MD [address] [address] PCP - General INTERNAL MEDICINE 09/29/21 documented as of this encounter
--- OUTSIDE RECORDS SUMMARY | 2024-08-03 03:25 | XMS_ITS | Encounter Summary ---
Author Organization [facility] Address [address] [place] [address]. [place], [place] [address] [place] [address] Care Team Providers Care Community Affairs Manager Name Role Phone Soledad Lucas MD Primary Care Provider [phone] Reason for Visit * Reason Onset Date Comments Schedule Test 08/02/2022 No contact to pc p / stress test Encounter Details Date Type Department Care Team (Late st Contact Info) Description 08/02/2022 Telephone [facility] [address] Faby Yu RMA Schedule Test (No contact to pcp / stress test) Social History Tobacco Use Types Packs/Day Years [...] Coronavirus/COVID-19? No / Unsure 07/13/2022 3:18 PM INTERRELATED SPECIAL EDUCATION TEACHER documented as of this encounter Progress Notes * GLORIA Samuels - 08/02/2022 5:56 PM CST No contact to pcp We have tried to contact your patient by phone and by letter with no response (stress test). At this time we will make no further attempts to contact your patient and will return their care back to your office. RRELATED SPECIAL EDUCATION TEACHER documented in this encounter Plan of Treatment Upcoming Encounters Date Type Department Care Team (Late st Contact Info) Description 08/19/2024 9:00 AM INTERRELATED SPECIAL EDUCATION TEACHER [facility] - [place] [address] [address] [address] [place] [address] Soledad Lucas MD [address] [place] [address] 12/16/2024 10:40 AM CDT [facility] [address] [facility] [place] [address] Ramsey Oakley MD 3 [facility] [address] [place] [address] documented as of this encounter Visit Diagnoses Not on filedocumented in this encounter Additional Health Concerns Assessment Noted Time PHQ-9 Depression Total Score: 1 09/29/19 22 10:03 AM INTERRELATED SPECIAL EDUCATION TEACHER documented as of this encounter Care Teams Community Affairs Manager Relationship Specialty [place] [address] [place] [address] PCP - General INTERNAL MEDICINE 09/29/21 documented as of this encounter
--- OUTSIDE RECORDS SUMMARY | 2024-08-03 03:25 | XMS_ITS | Encounter Summary ---
Author Organization [facility] - [facility] Address [address] [place] [address]. [address] [address] Care Team Providers Care Electromechanical Assembly Technician Name Role Phone Soledad Lucas MD Primary Care Provider [phone] Reason for Visit * Reason Onset Date Comments Question 07/11/2022 Chest Pain 07/11/2022 Encounter Details Date Type Department Care Team (Late st Contact Info) Description 07/11/2022 Telephone [facility] Multispecialty Care - [address] [address] [address] [place] [address] Soledad Lucas MD [address] [place] [address] [address] [place], [place] [id number] Question; Chest Pain Social History Tobacco Use Types Packs/Day [...] Coronavirus/COVID-19? No / Unsure 07/06/2022 9:53 AM CASH CLERK documented as of this encounter Progress Notes * Soledad Lucas MD - 07/12/2022 8:48 AM CST I called and spoke to patient about his chest pain issues. Patient tells me he has been experiencing left-sided chest pain that radiates to the right side of the chest wall over the last 2 days. Symptoms usually occur early in the morning. The pain also radiates into his left axilla and left shoulder. No nausea or sweating during this time. He describes the pain as a nagging pain. Of note, patient with underlining asthma. He tells me nebulization helps some. He is unaware of any precipitating factors necessarily. No nausea or excessive sweating during the episode. I did explain to patient to go to the ER to have cardiac work-up done. He tells me he has had a stress test done in the past befo re. Following his ER follow-up and work-up, patient will follow-up with myself. He may need a repeat stress test. All questions answered. Soledad Lucas MD Internal Medicine [facility] Medical [facility], [facility]. CLERK * Eugenie Ramirez MA - 07/12/2022 8:08 AM CST Pt informed me as I was calling him regarding message below that for the past 2 mornings he has hadchest pain going from the left side to the right side all the way across his chest, he states it comes and goes , and he experiences it mostly in the morning [phone] CLERK * Eugenie Ramirez MA - 07/12/2022 8:08 AM CST Called pt and informed him ok to return to work and to make sure he finishes antibiotic as prescribed. Pt verbalized understanding CLERK * Eugenie Ramirez MA - 07/11/2022 9:50 AM CST Pt called and asking when he can return to work since testing positive for strep last week. Please advise CLERK documented in this encounter Plan of Treatment Upcoming Encounters Date Type Department Care Team (Late st Contact Info) Description 08/19/2024 9:00 AM CASH CLERK [facility] [address] [address] [address] [place] [address] Soledad Lucas MD [address] [place] [address] 12/16/2024 10:40 AM CDT [facility] [address] [facility] [place] [address] Ramsey Oakley MD [address] [facility] [address] [place] [address] documented as of this encounter Visit Diagnoses Not on filedocumented in this encounter Additional Health Concerns Assessment Noted Time PHQ-9 Depression Total Score: 1 09/29/19 22 10:03 AM CASH CLERK documented as of this encounter Care Teams Electromechanical Assembly Technician Relationship Specialty Start Date End Date Soledad Lucas MD [address] [place] [address] PCP - General INTERNAL MEDICINE 09/29/21 documented as of this encounter
--- OUTSIDE RECORDS SUMMARY | 2024-08-03 03:25 | XMS_ITS | Encounter Summary ---
Author Organization [facility] Address [address] [place] [address]. [address] [address] Care Team Providers Care Receiving Coordinator Name Role Phone Soledad Lucas MD Primary Care Provider [phone] Reason for Visit * Reason Comments Lumbar Radiculopathy * Physical Medicine (Routine) - Closed Specialty Diagnoses / Procedures Referred By Prasanth santillan Referred To Contact PHYSICAL THERAPY / [facility] Physical Therapy Diagnoses Disc disease, degenerative, lumbar or lumbosacral Chronic bilateral low back pain with left-sided sciatica Procedures OFFICE/OUTPT VISIT,NEW,LEVL III OFFICE/OUTPT VISIT,NEW,LEVL IV OFFICE/OUTPT VISIT,NEW,LEVL V OFFICE/OUTPT VISIT,EST,LEVL III OFFICE/OUTPT VISIT,EST,LEVL IV OFFICE/OUTPT VISIT,EST,LEVL V Soledad Lucas MD [address] [facility] [address] [place] [address] Phone: tel: fax: [facility] [address] [place] [address] Phone: tel: fax: Referral ID Status Reason Start Date Expiration Date V isits Requested Visits Authorized [id number] Closed Physical Therapy 04/06/2022 05/06/2023 10 10 Encounter Details Date Type Department Care Team (Late st Contact Info) Description 05/23/2022 4:45 PM CDT Office Visit [facility] [address] [place] [address] Soledad Lucas MD [address] [facility] [address] [place] [address] Rene Segura, [place] [address] Lumbar Radiculopathy Social History Tobacco Use Types Packs/Day Years [...] suspected to have Coronavirus/COVID-19? No / Unsure 05/23/2022 4:32 PM CDT documented as of this encounter Progress Notes * Rene Segura, PT - 05/23/2022 4:45 PM CDT Physical Therapy Visit Note: Patient Name: Juliet Stout Diagnosis: Degenerative disc disease, lumbar (primary encounter diagnosis) Decreased rom of trunk and back Chronic bilateral low back pain with left-sided sciatica Personal Protective Equipment PPE Used During Visit: Patient wore mask throughout session, Therapist wore medical grade mask throughout session SUBJECTIVE Therapy Visit Treatment Day: 4 Total Approved Visits: 12 Authorization Expiration Date: progress note Therapy Plan of Care: 2x/week Current Therapy Orders: eval and treat Diagnosis: chronic LBP with left sciatica Referring Provider: Lance Sanders MD Visit: prn Precautions: HTN Restrictions: none Date of Injury: chronic Date of Surgery/Weeks Post-Op: NA Workers Compensation Injury: No 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 This usually improves with activity. Mild LBP this afternoon Compliance to Home Program: yes Reported Falls since last visit: none Medications changes since last visit : none Pain Current Location of Pain: lower back.. OBJECTIVE Treatment provided today: Therapeutic Exercise - 84365 Number of Minutes - 06664: 28 Exercise: Quadruped rock back x10 with 10 second hold Exercise: Quadraped thread the needle x10 each Exercise: Seated trunk flexion 3 directions with green ball x10 each Exercise: Staggered stance paloff press with 10# x10 each position Exercise: Hip matrix with foot ER x5 each Exercise: TRX trunk flexion stretch 3x20 seconds Exercise: tall kneeling core pull with hip hinge blue band 10x1 Exercise: supine bridge with 55 cm ball 8x2 with 5 sec hold Exercise: hooklying bug x5 (limited in reps due to left knee pain) Exercise: standinig pelvic rotation and pelvic tilt in dooway with support x10 ea Manual Therapy - 96908 Number of Minutes - 62704: 10 Joint Mobilization: sidelying lumbar/SIJ mobilizations B Intervention: Prone sacral inferior and lateral glides to improve mobility and promote relaxation ASSESSMENT Assessment Note: Overall patient is doing well with his rehab progress. Pain levels have been staying at manageable levels for the back. He was continued with manual to help manage residual pain and tightness. Additional treatment focused on both mobility and strengthening in the back.and further help with the discomfort he gets with prolonged standing. We did have to take his knee pain into consideration with treatment tonight and limit the amount of reps with certain exercises including those in kneeling or with frequent knee flexion PLAN Plan Next Visit Plan: Continue to monitor progress and work with both mobility and strengthening Total Time Total Time in Minutes: 38 Timed Code Treatment Minutes : 38 documented in this encounter Plan of Treatment Upcoming Encounters Date Type Department Care Team (Late st Contact Info) Description 08/19/2024 9:00 AM DINKEY LOCOMOTIVE OPERATOR Office Visit [facility] Medical Group Multispecialty Care - [address] [place] [address] Soledad Lucas MD [address] [address] 12/16/2024 10:40 AM CDT Office Visit [facility] Medical Group Multispecialty Care - [facility] 3 [facility] [address] [place] [address] Ramsey Oakley MD [address] [place] [address] documented as of this encounter Visit Diagnoses Diagnosis Degenerative disc disease, lumbar- Primary Degeneration of lumbar or lumbosacral intervertebral disc Decreased ROM of trunk and back Chronic bilateral low back pain with left-sided sciatica documented in this encounter Additional Health Concerns Assessment Noted Time PHQ-9 Depression Total Score: 1 09/29/19 10:03 AM DINKEY LOCOMOTIVE OPERATOR documented as of this encounter Care Teams Receiving Coordinator Relationship Specialty Start Date End Date Soledad Lucas MD [address] [address] PCP - General INTERNAL MEDICINE 09/29/21 documented as of this encounter
--- OUTSIDE RECORDS SUMMARY | 2024-08-03 03:25 | XMS_ITS | Encounter Summary ---
Author Organization [facility] Address [address] [place] [address]. [address] [address] Care Team Providers Care Crusher Tender Name Role Phone Soledad Lucas MD Primary Care Provider [phone] Reason for Visit * Reason Comments Knee Pain Right knee pain; hav ing trouble bending knee; sx started last night Med Refills Inhalers, oxycodone Encounter Details Date Type Department Care Team (Latest Contact Info) Description 05/30/2022 11:40 AM CDT Office Visit [facility] Medical [facility] Multispecialty Care - [address] [address] [address] [place] [address] Soledad Lucas MD [address] [place] [address] [address] [place] [address] Knee Pain (Right knee pain; having trouble bending knee; sx started last night); Med Refills (Inhalers, oxycodone) Social History Tobacco Use Types Packs/Day Years [...] AM CDT documented as of this encounter Last Filed Vital Signs Vital Sign Reading Time Taken Comments Blood Pressure 120/79 05/30/2022 11:40 AM CDT Pulse 79 05/30/2022 11:40 AM CDT Temperature 35.6 ??C (96.1 ??F) 05/30/2022 11:40 AM C DT Respiratory Rate 20 05/30/2022 11:40 AM CDT Oxygen Saturation 97% 05/30/2022 11:40 AM CDT Inhaled Oxygen Concentration - - Weight 102.5 kg (226 lb) 05/30/2022 11:40 AM CDT Height 185.4 cm (6' 1 ) 05/30/2022 11:40 AM CDT Body Mass Index 29.82 05/30/2022 11:40 AM CDT documented in this encounter Patient Instructions * Attachments The following attachments cannot be sent through Care Everywhere. * Knee Pain Discharge Instructions ([facility]) documented in this encounter Progress Notes * Soledad Lucas MD - 05/30/2022 11:40 AM CDTSummary: Acute visit notes Images from the original note were not included. Internal Medicine Outpatient Progress Note CC: Knee Pain (Right knee pain; having trouble bending knee; sx started last night) and Med Refills(Inhalers, oxycodone) HPI: Juliet Stout is a 60-year-old male who presents for an acute visit for concerns about right knee pain that started yesterday. Of note, patient with underlining bilateral chronic osteoarthritis ofboth knees. He did have surgery to the right knee many years ago. He currently has had multiple knee drainages with flareups. No history of gout. As of yesterday, patient started to experience pain mainly on the anterior aspect of the right knee. Pain was excruciating to the extent the patient could not bend the right knee. He tells me he has been taking his medications and helps some. No recent injuries. No fever or chills. No recent swelling or redness of the right knee. Concerned and decidedto report at today's visit. He would like refills on his asthma medications. No concerns at this time. Symptoms controlled. Denies any concerns for chronic cough, shortness of breath or chest tightness. No recent infections or ER visits for asthma flareups. Problem List Patient Active Problem List Diagnosis [...] Outpatient Medications Marked as Taking for the 05/30/22 encounter (Office Visit) with Soledad Lucas MD [...] nightly at bedtime. 90 tablet 2 ??? fluticasone furoate-vilanterol (BREO ELLIPTA) 200-25 MCG/ACT inhaler Inhale 1 puff into the lungs daily. 60 each 2 ??? losartan-hydroCHLOROthiazide 50-12.5 MG tablet Take 1 tablet by mouth daily. 90 tablet 1 ??? metFORMIN (GLUCOPHAGE) 500 MG tablet Take 1 tablet (500 mg total) by mouth daily with breakfast. 60 tablet 3 ??? methocarbamol (ROBAXIN) 500 MG tablet Take 1 tablet (500 mg total) by mouth 3 (three) times daily. 60 tablet 0 ??? methylPREDNISolone, ABBE, (MEDROL DOSEPAK) 4 MG tablet 6 TABLETS ON DAY ONE, 5 TABLETS DAY TWO, 4 TABLETS DAY THREE, 3 TABLETS DAY FOUR, 2 TABLETS DAY FIVE, AND 1 TABLET DAY SIX 1 each 0 ??? omeprazole (PRILOSEC) 40 MG capsule TAKE 1 CAPSULE(40 MG) BY MOUTH DAILY 30 capsule 0 ??? oxyCODONE-acetaminophen (PERCOCET) 7.5-325 MG tablet Take 1 tablet by mouth daily as needed forPain. Indications: Chronic Pain 30 tablet 0 ??? vitamin D2, ergocalciferol, 48311 UNITS capsule Take 1 capsule (50,000 Units total) by mouth weekly. 12 capsule 1 Current Facility-Administered Medications for the 05/30/22 encounter (Office Visit) with Soledad Lucas MD [...] falls, myalgias and neck pain. Neurological: Negative. Objective: Filed Vitals: 05/30/22 1140 BP: 120/79 Pulse: 79 Resp: 20 Temp: 96.1 ??F (35.6 ??C) TempSrc: Temporal SpO2: 97% Weight: 102.5 kg (226 lb) Height: 6' 1 (1.854 m) Body mass index is 29.82 kg/m??. General alert, cooperative, no distress HEENT [...] normal. No masses. No hepatomegaly appreciated. Extremities right knee without any swelling. Not warm to touch. Slightly tender to palpate on the anterior surface. No skin breakdown. No balloting appreciated, no cyanosis, 2+ pedal pulses, no edema Skin Skin color, texture, turgor normal. No rashes or lesions appreciated. Neurologic No focal deficits, motor strength is grossly normal and symmetric Psych Normal mood and affect MSK No synovitis, no bony tenderness, no joint effusions Lymph No cervical or supraclavicular adenopathy Assessment and Plan: Encounter Diagnose(s) ICD-10-CM ICD-9-CM SNOMED CT(R) 1. Primary osteoarthritis of left knee M17.12 715.16 OSTEOARTHRITIS OF LEFT KNEE JOINT oxyCODONE-acetaminophen (PERCOCET) 7.5-325 MG tablet methylPREDNISolone, ABBE, (MEDROL DOSEPAK) 4 MG tablet ketorolac (TORADOL) injection 60 mg 2. Mild intermittent asthma without complication J45.20 493.90 MILD INTERMITTENT ASTHMA fluticasonefuroate-vilanterol (BREO ELLIPTA) 200-25 MCG/ACT inhaler albuterol sulfate HFA 108 (90 Base) MCG/ACT inhaler 1. Primary osteoarthritis of left knee - no concerns for right knee effusion this time - oxyCODONE-acetaminophen (PERCOCET) 7.5-325 MG tablet; Take 1 tablet by mouth daily as needed for Pain. Indications: Chronic Pain Dispense: 30 tablet; Refill: 0 - methylPREDNISolone, ABBE, (MEDROL DOSEPAK) 4 MG tablet; 6 TABLETS ON DAY ONE, 5 TABLETS DAY TWO, 4TABLETS DAY THREE, 3 TABLETS DAY FOUR, 2 TABLETS DAY FIVE, AND 1 TABLET DAY SIX Dispense: 1 each; Refill: 0 - ketorolac (TORADOL) injection 60 mg - Avoid activities that cause pain until pain subsides. - Rest the affected limb. - Ice to the area 20 - 30 minutes 4 - 6 times a day. - Elevate the affected limb. 2. Mild intermittent asthma without complication - controlled - continue fluticasone furoate-vilanterol (BREO ELLIPTA) 200-25 MCG/ACT inhaler; Inhale 1 puff intothe lungs daily. Dispense: 60 each; Refill: 2 - continue albuterol sulfate HFA 108 (90 Base) MCG/ACT inhaler; Inhale 2 puffs into the lungs every6 (six) hours as needed for Wheezing. Dispense: 18 g; Refill: 5 Counseling given: Yes Comment: counsled by Dr [...] was at least in part performed using [employer] and there may be some inherent flaws in this senior c web developer due to the nature of this program. Soledad Lucas MD Internal Medicine [facility], [facility]. documented in this encounter Plan of Treatment Upcoming Encounters Date Type Department Care Team (Late st Contact Info) Description 08/19/2024 9:00 AM NETWORK ADMINISTRATOR [facility] [address] [address] [address] [place] [address] Soledad Lucas MD [address] [place] [address] 12/16/2024 10:40 AM CDT Office Visit [facility] - [address], [address] [place] [phone] Ramsey Oakley MD [address] [address] documented as of this encounter Visit Diagnoses Diagnosis Primary osteoarthritis of left knee Primary localized osteoarthrosis, lower leg Mild intermittent asthma without complication (HHS/HCC) Unspecified asthma documented in this encounter Administered Medications Inactive Administered Medications - up to 3 most recent administrations Medication Order MAR Action Action Date Dose Rate Site ketorolac (TORADOL) injection 60 mg 60 mg, Intramuscular, Once, 1 dose, On 05/30/22 at 1215Indications:Primary osteoarthritis of left knee Given 05/30/2022 12:00 PM CDT 60 mg Left Deltoid documented in this encounter Additional Health Concerns Assessment Noted Time PHQ-9 Depression Total Score: 1 09/29/19 10:03 AM NETWORK ADMINISTRATOR documented as of this encounter Care Teams Crusher Tender Relationship Specialty Start Date End Date Soledad Lucas MD [facility] [facility] [address] [place] [address] PCP - General INTERNAL MEDICINE 09/29/21 documented as of this encounter
--- OUTSIDE RECORDS SUMMARY | 2024-08-03 03:25 | XMS_ITS | Encounter Summary ---
Author Organization [facility] - [facility] Address [address] [place] [address]. [address] [address] Care Team Providers Care Ruby Engineer Name Role Phone Soledad Lucas MD Primary Care Provider [phone] Reason for Visit * Reason Onset Date Comments Referral 03/27/2023 Encounter Details Date Type Department Care Team (Late st Contact Info) Description 03/27/2023 Telephone [facility] Medical [facility] Multispecialty Care - [address] [place] [address] Soledad Lucas MD [address] [place] [address] [address] [place] [address] Referral Social History Tobacco Use Types Packs/Day [...] Progress Notes * Soledad Lucas MD - 03/27/2023 9:22 PM CDT [facility] requesting for insurance referral. Patient has an appointment tomorrow. I did place referral back in 11/21/2022. Sent a halo message to referral team to follow up on this referral as patient already an appointment 03/28/2023 and needs insurance referral. Fax to [phone]. Diagnosis code M17.12 ad Z47.89 documented in this encounter Plan of Treatment Upcoming Encounters Date Type Department Care Team (Late st Contact Info) Description 08/19/2024 9:00 AM ROOFING SUPERINTENDENT [facility] - [address] [address] [address] [place] [address] [place] [address] [place] [address] 12/16/2024 10:40 AM CDT [facility] [address] [facility] [place] [address] Ramsey Oakley MD [address] [facility] [address] [place] [address] documented as of this encounter Visit Diagnoses Not on filedocumented in this encounter Additional Health Concerns Assessment Noted Time PHQ-9 Depression Total Score: 1 09/29/19 10:03 AM ROOFING SUPERINTENDENT documented as of this encounter Care Teams Ruby Engineer Relationship Specialty [place] [address] [place] [address] PCP - General INTERNAL MEDICINE 09/29/21 documented as of this encounter
--- OUTSIDE RECORDS SUMMARY | 2024-08-03 03:25 | XMS_ITS | Encounter Summary ---
Author Organization [facility] Address [address] [place] [address]. [place], [place] [address] [place] [address] Care Team Providers Care Clinical Dietician Name Role Phone Soledad Lucas MD Primary Care Provider Reason for Visit * Reason Comments Image (SCAN) Encounter Details Date Type Department Care Team (Latest Contact Info) Description 08/21/2022 Scan HEALTH INFO SRVCS Scanned, Doc Med [...] suspected to have Coronavirus/COVID-19? No / Unsure 08/05/2022 10:33 AM MULTIPLE DRILL OPERATOR documented as of this encounter Plan of Treatment Upcoming Encounters Date Type Department Care Team ( Contact Info) Description 08/19/2024 9:00 AM MULTIPLE DRILL OPERATOR Office Visit [facility] Medical Group Multispecialty Care - [address] [place] [address] Soledad Lucas MD [address] [facility] 157 [place] [address] 12/16/2024 10:40 AM CDT Office Visit [facility] Medical [facility] Multispecialty Care - [facility] [address] [facility] [address] [place] [address] Ramsey Oakley MD [address] [facility] [address] [place] [address] documented as of this encounter Procedures Procedure Name Priority Date/Time Associated Diagnosis Comments IMAGE GENERIC 08/21/2022 documented in this encounter Results * IMAGE GENERIC (08/21/2022) Anatomical Region Laterality Modality Other 08/21/2022 us Doc Med Group Scanned SCANNING Final Resu lt documented in this encounter Visit Diagnoses Not on filedocumented in this encounter Additional Health Concerns Assessment Noted Time PHQ-9 Depression Total Score: 1 09/29/19 10:03 AM MULTIPLE DRILL OPERATOR documented as of this encounter Care Teams Clinical Dietician Relationship Specialty Start Date End Date Soledad Lucas MD [address] [facility] 157 [place] [address] PCP - General INTERNAL MEDICINE 09/29/21 documented as of this encounter
--- OUTSIDE RECORDS SUMMARY | 2024-08-03 03:25 | XMS_ITS | Encounter Summary ---
Author Organization [facility] Address [address] [place] [address]. [place], [place] [address] [place] [address] Care Team Providers Care Hospice Chaplain Name Role Phone Soledad Lucas MD Primary Care Provider [phone] Encounter Details Date Type Department Care Team (Latest Contact Info) Description 07/13/2022 Travel Social History Tobacco Use Types Packs/Day [...] Coronavirus/COVID-19? No / Unsure 07/13/2022 3:18 PM BAKER SECOND documented as of this encounter Plan of Treatment Upcoming Encounters Date Type Department Care Team (Late st Contact Info) Description 08/19/2024 9:00 AM BAKER SECOND Office Visit [facility] Medical Group Multispecialty Care - [place] [address] [address] [address] [place] [address] Soledad Lucas MD [address] [place] [address] [address] [place] [address] 12/16/2024 10:40 AM CDT Office Visit [facility] Medical Group Multispecialty Care - [facility] [address] [facility] [place] [address] Ramsey Oakley MD [address] [facility] [address] [place] [address] documented as of this encounter Visit Diagnoses Not on filedocumented in this encounter Additional Health Concerns Assessment Noted Time PHQ-9 Depression Total Score: 1 09/29/19 22 10:03 AM BAKER SECOND documented as of this encounter Care Teams Hospice Chaplain Relationship Specialty Start Date End Date Soledad Lucas MD [address] [address] PCP - General INTERNAL MEDICINE 09/29/21 documented as of this encounter
--- OUTSIDE RECORDS SUMMARY | 2024-08-03 03:25 | XMS_ITS | Encounter Summary ---
Author Organization [facility] Address [address] [place] [address]. [place] [id number] Care Team Providers Care Whip Operator Name Role Phone Soledad Lucas MD Primary Care Provider [phone] Reason for Visit * Reason Comments Back Pain * Physical Medicine (Routine) - Closed Specialty Diagnoses / Procedures Referred By Prasanth santillan Referred To Contact PHYSICAL THERAPY / [facility] Physical Therapy Diagnoses Disc disease, degenerative, lumbar or lumbosacral Chronic bilateral low back pain with left-sided sciatica Procedures OFFICE/OUTPT VISIT,NEW,LEVL III OFFICE/OUTPT VISIT,NEW,LEVL IV OFFICE/OUTPT VISIT,NEW,LEVL V OFFICE/OUTPT VISIT,EST,LEVL III OFFICE/OUTPT VISIT,EST,LEVL IV OFFICE/OUTPT VISIT,EST,LEVL V Soledad Lucas MD [address] [facility] [address] [place] [address] Phone: tel: fax: [facility] [address] [place] [address] Phone: tel: fax: Referral ID Status Reason Start Date Expiration Date V isits Requested Visits Authorized [id number] Closed Physical Therapy 04/06/2022 05/06/2023 10 10 Encounter Details Date Type Department Care Team (Late st Contact Info) Description 05/25/2022 4:45 PM CDT Office Visit [facility] [address] [place] [address] Soledad Lucas MD [address] [facility] [address] [place] [address] Nelda Knox PTA Back Pain Social History Tobacco Use Types Packs/Day [...] suspected to have Coronavirus/COVID-19? No / Unsure 05/25/2022 3:51 PM CDT documented as of this encounter Progress Notes * Nelda Knox PTA - 05/25/2022 4:45 PM CDT Physical Therapy Visit Note: Patient Name: Juliet Stout Diagnosis: Degenerative disc disease, lumbar (primary encounter diagnosis) Decreased rom of trunk and back Chronic bilateral low back pain with left-sided sciatica Personal Protective Equipment PPE Used During Visit: Therapist wore medical grade mask throughout session, Patient wore mask throughout session SUBJECTIVE Therapy Visit Treatment Day: 5 Total Approved Visits: 12 Authorization Expiration Date: progress note Therapy Plan of Care: 2x/week Current Therapy Orders: eval and treat Diagnosis: chronic LBP with left sciatica Referring Provider: Lance Sanders MD Visit: prn Precautions: HTN Restrictions: none Date of Injury: chronic Date of Surgery/Weeks Post-Op: NA Workers Compensation Injury: No 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 This pain lasts for 15 to 20 minutes then begins to subside. No radicular symptoms reported. Compliance to Home Program: yes Reported Falls since last visit: no Medications changes since last visit : no changes Pain Current Location of Pain: lower back.. Current Pain Level: 0 Other (comments): stiffness compared to pain OBJECTIVE Treatment provided today: Therapeutic Exercise - 07220 Number of Minutes - 14576: 30 Exercise: Quadruped rock back x5 with 10 second hold (decreased reps due to knee pain today) Exercise: Quadraped thread the needle x10 each Exercise: Seated trunk flexion 3 directions with green ball x10 each Exercise: Staggered stance paloff press with 10# x15 each position Exercise: Hip matrix with feet ER x5 each Exercise: TRX trunk flexion stretch 3x20 seconds Exercise: Figure 4 piriformis stretch (given for HEP) Exercise: tall kneeling core pull with hip hinge blue band 10x1 Exercise: supine bridge with 55 cm ball 8x2 with 5 sec hold Exercise: Seated Omani ball marching with TvA x 10 reps Exercise: standinig pelvic rotation and pelvic tilt in dooway with support x10 ea Exercise: Anti-rotational sidestepping with 10# x 10 reps for oblique and glute med strengthening. Manual Therapy - 04834 Number of Minutes - 62512: 15 Joint Mobilization: sidelying lumbar/SIJ mobilizations B Intervention: Gentle flexion-rotation stretching for upper and lower lumbar to increase flexibilityand promote relaxation Intervention: Prone sacral inferior and lateral glides to improve mobility and promote relaxation Education Topic: Instructed patient in figire 4 piriformis stretch. ASSESSMENT Assessment Note: Added further stretching to target upper and lower back, as well as the piriformis MM to improve flexibility and decrease his pain. Palpation of sacral mobility seems to be improving. Less restriction in sacral mobility all directions. Still mild tightness on the right with inferior motion. Progressed strengthening for the core and pelvis for more stability which he tolerated well. PLAN Plan Next Visit Plan: Continue to monitor progress and work with both mobility and strengthening Total Time Total Time in Minutes: 45 Timed Code Treatment Minutes : 45 documented in this encounter Plan of Treatment Upcoming Encounters Date Type Department Care Team (Late st Contact Info) Description 08/19/2024 9:00 AM AIRPLANE DISPATCHER Office Visit [facility] Multispecialty Care - [place] [address] [address] [place] [address] Soledad Lucas MD [address] [facility] [address] [place] [address] 12/16/2024 10:40 AM CDT Office Visit [facility] Multispecialty Care - [facility] [address] [facility] [address] [place] [address] Ramsey Oakley MD [address] [facility] [address] [place] [address] documented as of this encounter Visit Diagnoses Diagnosis Degenerative disc disease, lumbar- Primary Degeneration of lumbar or lumbosacral intervertebral disc Decreased ROM of trunk and back Chronic bilateral low back pain with left-sided sciatica documented in this encounter Additional Health Concerns Assessment Noted Time PHQ-9 Depression Total Score: 1 09/29/19 10:03 AM AIRPLANE DISPATCHER documented as of this encounter Care Teams Whip Operator Relationship Specialty Start Date End Date Soledad Lucas MD [facility] [address] PCP - General INTERNAL MEDICINE 09/29/21 documented as of this encounter
--- OUTSIDE RECORDS SUMMARY | 2024-08-03 03:25 | XMS_ITS | Encounter Summary ---
Author Organization [facility] Address [address] [place] [address]. [place], [place] [address] [place] [address] Care Team Providers Care Compo Conveyor Operator Name Role Phone Soledad Lucas MD Primary Care Provider Reason for Visit * Reason Onset Date Comments Follow Up Call 02/28/2023 Encounter Details Date Type Department Care Team (Late st Contact Info) Description 02/28/2023 Telephone [facility] Multispecialty Care - [place] [address] [address] [place] [address] [place] [address] [place] [address] [address] [place] [address] Follow Up Call Social History [...] Progress Notes * Soledad Lucas MD - 02/28/2023 7:56 AM CDT Kindly call and schedule patient for his annual physical. Overdue. Thanks. documented in this encounter Plan of Treatment Upcoming Encounters Date Type Department Care Team (Late st Contact Info) Description 08/19/2024 9:00 AM MINING PLANT OPERATOR Office Visit [facility] Multispecialty [facility] - [place] [address] [address] [place] [address] Soledad Lucas MD [address] [address] 12/16/2024 10:40 AM CDT [facility] [address] [facility] [place] [address] Ramsey Oakley MD [address] [facility] [address] [place] [address] documented as of this encounter Visit Diagnoses Not on filedocumented in this encounter Additional Health Concerns Assessment Noted Time PHQ-9 Depression Total Score: 1 09/29/19 10:03 AM MINING PLANT OPERATOR documented as of this encounter Care Teams Compo Conveyor Operator Relationship Specialty Start Date End Date Soledad Lucas MD [address] [address] PCP - General INTERNAL MEDICINE 09/29/21 documented as of this encounter
--- OUTSIDE RECORDS SUMMARY | 2024-08-03 03:25 | XMS_ITS | Encounter Summary ---
Author Organization [facility] Address [address] [place] [address]. [place], [place] [address] [place] [address] Care Team Providers Care Solar Development Engineer Name Role Phone Soledad Lucas MD Primary Care Provider [phone] Reason for Visit * Reason Comments Lab (SCAN) CT (SCAN) Encounter Details Date Type Department Care Team (Late Contact Info) Description 02/10/2023 Scan HEALTH INFO SRVCS Scanned, Doc Med [...] (Late Contact Info) Description 08/19/2024 9:00 AM PUBLIC RELATIONS WRITER Office Visit [facility] Multispecialty Care - [place] [address] [address] [place] [address] Soledad Lucas MD [address] [place] [address] 12/16/2024 10:40 AM CDT Office Visit [facility] Multispecialty Care - [facility] [address] [facility] [address] [place] [address] Ramsey Oakley MD [address] [facility] [address] [place] [address] documented as of this encounter Procedures Procedure Name Priority Date/Time Associated Diagnosis Comments CT GENERIC 02/10/2023 OUTSIDE LAB (SCAN ORDER) 02/10/2023 documented in this encounter Results * OUTSIDE LAB (SCAN) (02/10/2023) 02/10/2023 [facility] Scanned SCANNING Final Resu lt * CT GENERIC (02/10/2023) Anatomical Region Laterality Modality Other 02/10/2023 [facility] Scanned SCANNING Final Resu lt documented in this encounter Visit Diagnoses Not on filedocumented in this encounter Additional Health Concerns Assessment Noted Time PHQ-9 Depression Total Score: 1 09/29/19 22 10:03 AM PUBLIC RELATIONS WRITER documented as of this encounter Care Teams Solar Development Engineer Relationship Specialty Start Date End Date Soledad Lucas MD [address] [address] PCP - General INTERNAL MEDICINE 09/29/21 documented as of this encounter
--- OUTSIDE RECORDS SUMMARY | 2024-08-03 03:25 | XMS_ITS | Encounter Summary ---
Author Organization [facility] Address [address] [place] [address]. [address] [address] Care Team Providers Care Battery Container Finishing Hand Name Role Phone Soledad Lucas MD Primary Care Provider [phone] Reason for Visit * Reason Comments ER F/U Pt went to the ER fo r chest pain Encounter Details Date Type Department Care Team (Latest Contact Info) Description 07/13/2022 3:20 PM EMR ANALYST Office Visit [facility] Multispecialty Care - [place] [address] [address] [place], [place] [phone] Soledad Lucas MD [address] [place] [address] ER F/U (Pt went to the ER for chest pain) Social History Tobacco Use Types Packs/Day Years [...] Coronavirus/COVID-19? No / Unsure 07/13/2022 3:18 PM EMR ANALYST documented as of this encounter Last Filed Vital Signs Vital Sign Reading Time Taken Comments Blood Pressure 118/81 07/13/2022 3:32 PM EMR ANALYST Pulse 82 07/13/2022 3:32 PM EMR ANALYST Temperature 36.8 ??C (98.3 ??F) 07/13/2022 3:32 PM CS T Respiratory Rate 18 07/13/2022 3:32 PM EMR ANALYST Oxygen Saturation 98% 07/13/2022 3:32 PM EMR ANALYST Inhaled Oxygen Concentration - - Weight 102.2 kg (225 lb 3.2 oz) 07/13/2022 3:32 PM EMR ANALYST Height 185.4 cm (6' 1 ) 07/13/2022 3:32 PM EMR ANALYST Body Mass Index 29.71 07/13/2022 3:32 PM EMR ANALYST documented in this encounter Progress Notes * Soledad Lucas MD - 07/13/2022 3:20 PM CSTSummary: ER follow up notes Images from the original note were not included. Internal Medicine Outpatient Progress Note CC: ER F/U (Pt went to the ER for chest pain) HPI: Juliet Stout is a 60-year-old male who presents for emergency room follow-up for recent concerns about left-sided persistent chest pain that travels to the right side of the chest wall associatedwith left shoulder pain. According to patient, symptoms started about 2 days ago. No prior precipitating factors that patient can recall. The pain is achy and constant in nature. This is new for patient. No exacerbating or relieving factors reported. No fever or chills. Symptoms not related to taking deep breaths. He recently was treated for strep infection and was on Augmentin and prednisone. Has since completed medications. His symptoms started soon thereafter. Of note, patient with underlining asthma. He does note mild fatigue since this started. He did call initially and I recommended going to the emergency room to be evaluated. He did receive 4 tablets of baby aspirin in the ER. In theER, his vital signs noted to be stable. He did have blood work including a CBC with CMP as well as PT/INR which came back normal. He also had a lipase level drawn which was normal. Troponins x2 was negative. EKG was normal sinus rhythm. He was managed as a case of chest pain cause unknown and encouraged to follow-up with primary care provider. Patient comes in today still having the same pain on the left side. He had a stress test done sometime in October 2021 which was unremarkable. Hypertensivewith prediabetes. No prior trauma. Problem List Patient Active Problem List Diagnosis [...] History Tobacco Use ??? Smoking status: Never ??? Smokeless tobacco: Never ??? Tobacco comments: counsled by Dr Lucas Vaping Use ??? Vaping Use: Never used Substance Use Topics ??? Alcohol use: Yes Alcohol/week: 11.7 standard drinks Types: 7 Cans of beer per week Comment: Socially ??? Drug use: Yes Types: Marijuana Medications: Outpatient Medications Marked as Taking for the 07/13/22 encounter (Office Visit) with Soledad Lucas MD [...] nightly at bedtime. 90 tablet 2 ??? cyclobenzaprine (FLEXERIL) 10 MG tablet Take 1 tablet (10 mg total) by mouth nightly as needed for Muscle Spasms. 30 tablet 2 ??? fluticasone furoate-vilanterol (BREO ELLIPTA) 200-25 MCG/ACT inhaler Inhale 1 puff into the lungs daily. 60 each 2 ??? [START ON 07/14/2022] indomethacin (INDOCIN) 50 MG capsule Take 1 capsule (50 mg total) by mouth2 (two) times daily with meals for 2 days. 4 capsule 0 ??? ipratropium-albuterol (DUONEB) 0.5-2.5 (3) MG/3ML Solution Take 3 mLs by nebulization every 6 (six) hours as needed. 360 mL 0 ??? losartan-hydroCHLOROthiazide 50-12.5 MG tablet Take 1 tablet by mouth daily. 90 tablet 1 ??? metFORMIN (GLUCOPHAGE) 500 MG tablet Take 1 tablet (500 mg total) by mouth daily with breakfast. 60 tablet 3 ??? NEBULIZER DEVICE, DME, Take 1 Device by nebulization every 6 (six) hours as needed. Use for asthma attack. 1 Device 0 ??? omeprazole (PRILOSEC) 40 MG capsule TAKE 1 CAPSULE(40 MG) BY MOUTH DAILY 30 capsule 0 ??? oxyCODONE-acetaminophen (PERCOCET) 7.5-325 MG tablet Take 1 tablet by mouth daily as needed forPain. Indications: Chronic Pain 30 tablet 0 ??? vitamin D2, ergocalciferol, [address] UNITS capsule Take 1 capsule (50,000 Units total) by mouth weekly. 12 capsule 1 Current Facility-Administered Medications for the 07/13/22 encounter (Office Visit) with Soledad Lucas MD Medication Dose Route Frequency Provider Last Rate Last Admin ??? BUpivacaine (PF) (MARCAINE) 0.25 % injection 5 mL 5 mL Intrapleural Once Soledad Lucas MD Allergies: Allergies Allergen Reactions ??? Lisinopril Swelling Swollen lips Review of Systems Constitutional: Positive for malaise/fatigue (fatigue). Negative for chills, diaphoresis, fever andweight loss. HENT: Negative. Eyes: Negative. Respiratory: Negative. Cardiovascular: Positive for chest pain. Negative for palpitations, orthopnea, claudication, leg swelling and PND. Gastrointestinal: Negative. Genitourinary: Negative. Musculoskeletal: Negative. Neurological: Negative. Objective: Filed Vitals: 07/13/22 1532 BP: 118/81 Pulse: 82 Resp: 18 Temp: 98.3 ??F (36.8 ??C) TempSrc: Temporal SpO2: 98% Weight: 102.2 kg (225 lb 3.2 oz) Height: 6' 1 (1.854 m) Body mass index is 29.71 kg/m??. General alert, cooperative, no distress HEENT [...] No synovitis, no bony tenderness, no joint effusions; no tenderness elicited on palpation of the left precordium. Chest pain appears to be in the anterior axillary line on the left side. Lymph No cervical or supraclavicular adenopathy Assessment and Plan: Encounter Diagnose(s) ICD-10-CM ICD-9-CM SNOMED CT(R) 1. Precordial pain R07.2 786.51 PRECORDIAL PAIN ketorolac (TORADOL) injection 60 mg indomethacin (INDOCIN) 50 MG capsule 2. Chronic bilateral low back pain with left-sided sciatica M54.42 724.2 CHRONIC LOW BACK PAIN cyclobenzaprine (FLEXERIL) 10 MG tablet G89.29 724.3 338.29 3. Chest pain, unspecified type R07.9 786.50 CHEST PAIN Stress test only, exercise 1. Chronic bilateral low back pain with left-sided sciatica - cyclobenzaprine (FLEXERIL) 10 MG tablet; Take 1 tablet (10 mg total) by mouth nightly as needed for Muscle Spasms. Dispense: 30 tablet; Refill: 2 2. Precordial pain -Differentials including musculoskeletal pain versus pericarditis versus less likely angina - ketorolac (TORADOL) injection 60 mg - indomethacin (INDOCIN) 50 MG capsule; Take 1 capsule (50 mg total) by mouth 2 (two) times daily with meals for 2 days. Dispense: 4 capsule; Refill: 0 3. Chest pain, unspecified type - Stress test only, exercise; Future Counseling given: Yes Tobacco comments: counsled by Dr Lucsa I spent 30 minutes today reviewing the [...] was at least in part performed using [employer] and there may be some inherent flaws in this cryptologic support specialist due to the nature of this program. Soledad Lucas MD Internal Medicine [facility], [facility] ANALYST documented in this encounter Plan of Treatment Upcoming Encounters Date Type Department Care Team (Late st Contact Info) Description 08/19/2024 9:00 AM EMR ANALYST [facility] - [place] [address] [address] [place] [address] Soledad Lucas MD [address] [place] [address] 12/16/2024 10:40 AM CDT Office Visit [facility] Multispecialty [facility] [facility] [address] [facility] [place] [address] Ramsey Oakley MD [address] [facility] [address] [place] [address] documented as of this encounter Visit Diagnoses Diagnosis Precordial pain- Primary Chronic bilateral low back pain with left-sided sciatica Chest pain, unspecified type documented in this encounter Administered Medications Inactive Administered Medications - up to 3 most recent administrations Medication Order MAR Action Action Date Dose Rate Site ketorolac (TORADOL) injection 60 mg 60 mg, Intramuscular, Once, 1 dose, On Mon07/13/22 at 1630Indications:Precordial pain Given 07/13/2022 4:06 PM EMR ANALYST 60 mg Left Deltoid documented in this encounter Additional Health Concerns Assessment Noted Time PHQ-9 Depression Total Score: 1 09/29/19 10:03 AM EMR ANALYST documented as of this encounter Care Teams Battery Container Finishing Hand Relationship Specialty Start Date End Date Soledad Lucas MD [facility] [address] [address] PCP - General INTERNAL MEDICINE 09/29/21 documented as of this encounter
--- OUTSIDE RECORDS SUMMARY | 2024-08-03 03:25 | XMS_ITS | Encounter Summary ---
Author Organization [facility] Address [address] [place] [address]. [place], [place] [address] [place] [address] Care Team Providers Care On Site Property Manager Name Role Phone Soledad Lucas MD Primary Care Provider [phone] Encounter Details Date Type Department Care Team (Latest Contact Info) Description 07/06/2022 - 07/06/2022 11:59 PM AUDIT INTERN Hospital Encounter [facility] [address] [place] [address] Soledad Lucas MD [address] [address] Discharge Disposition: Home or Self [...] Coronavirus/COVID-19? No / Unsure 07/06/2022 9:53 AM AUDIT INTERN documented as of this encounter Medications at Time of Discharge NEBULIZER DEVICE, DME,Indications:Mo derate persistent asthma with acute exacerbation (HHS/HCC),Acute bronchitis, unspecified organism Take 1 Device by nebulization every 6 (six) hours as needed. Use for asthma attack. 1 Device 06/13/2022 albuterol sulfate HFA 108 (90 Base) MCG/ACT inhalerIndications :Mild intermittent asthma without complication (HHS/HCC) Inhale 2 puffs into the lungs every 6 (six) hours as needed for Wheezing. 18 g 5 05/30/2022 08/29/19 23 amoxicillin-clavul anate (AUGMENTIN) 875-125 MG tabletIndications: Acute streptococcal pharyngitis Take 1 tablet (875 mg total) by mouth 2 (two) times daily for 7 days. 14 tablet 07/06/2022 07/13/20 22 aspirin 81 MG chewable tabletIndications: Left-sided chest pain Chew 1 tablet (81 mg total) by mouth daily. 30 tablet 10/13/2021 08/29/19 23 atorvastatin 40 MG tabletIndications: Mixed hyperlipidemia,Lef t-sided chest pain Take 1 tablet (40 mg total) by mouth nightly at bedtime. 90 tablet 2 10/13/2021 06/09/20 23 benzonatate (TESSALON PERLES) 100 MG capsuleIndications :Acute streptococcal pharyngitis Take 1 capsule (100 mg total) by mouth 3 (three) times daily as needed for Cough. 20 capsule 07/06/2022 07/13/20 22 cyclobenzaprine (FLEXERIL) 10 MG tabletIndications: Chronic bilateral low back pain with left-sided sciatica Take 1 tablet (10 mg total) by mouth nightly as needed for Muscle Spasms. 30 tablet 2 07/05/2022 07/13/20 22 fluticasone furoate-vilanterol (BREO ELLIPTA) 200-25 MCG/ACT inhalerIndications :Mild intermittent asthma without complication (HHS/HCC) Inhale 1 puff into the lungs daily. 60 each 2 05/30/2022 08/29/19 23 ipratropium-albute rol (DUONEB) 0.5-2.5 (3) MG/3ML SolutionIndication s:Moderate persistent asthma with acute exacerbation (HHS/HCC) Take 3 mLs by nebulization every 6 (six) hours as needed. 360 mL 06/13/2022 08/29/19 23 losartan-hydroCHLO ROthiazide 50-12.5 MG tabletIndications: Primary hypertension Take 1 tablet by mouth daily. 90 tablet 1 02/04/2022 07/27/20 22 metFORMIN (GLUCOPHAGE) 500 MG tabletIndications: Prediabetes Take 1 tablet (500 mg total) by mouth daily with breakfast. 60 tablet 3 01/07/2022 01/07/20 23 omeprazole (PRILOSEC) 40 MG capsuleIndications :Gastroesophageal reflux disease without esophagitis TAKE 1 CAPSULE(40 MG) BY MOUTH DAILY 30 capsule 04/19/2022 01/07/20 23 oxyCODONE-acetamin ophen (PERCOCET) 7.5-325 MG tabletIndications: Chronic Pain Take 1 tablet by mouth daily as needed for Pain. Indications: Chronic Pain 30 tablet 07/05/2022 09/26/19 23 predniSONE (DELTASONE) 20 MG tabletIndications: Acute streptococcal pharyngitis Take 2 tablets (40 mg total) by mouth daily for 5 days. 10 tablet 07/06/2022 07/11/20 22 vitamin D2, ergocalciferol, 54556 UNITS capsuleIndications :Vitamin D deficiency Take 1 capsule (50,000 Units total) by mouth weekly. 12 capsule 1 09/29/2021 01/07/20 23 documented as of this encounter Plan of Treatment Upcoming Encounters Date Type Department Care Team (Late st Contact Info) Description 08/19/2024 9:00 AM AUDIT INTERN [facility] [address] [place] [address] Soledad Lucas MD [address] [place] [address] 12/16/2024 10:40 AM CDT Office Visit [facility] Care - [address], [address] [place] [phone] Ramsey Oakley MD [address] [address] documented as of this encounter Visit Diagnoses Not on filedocumented in this encounter Additional Health Concerns Infection Onset Date Last Indicated Resolved Time COVID-19 Rule Out 07/06/2022 07/06/2022 07/06/2022 3:14 PM AUDIT INTERN COVID-19 Rule Out 07/06/2022 07/06/2022 07/08/2022 1:45 AM AUDIT INTERN Assessment Noted Time PHQ-9 Depression Total Score: 1 09/29/19 22 10:03 AM AUDIT INTERN documented as of this encounter Care Teams On Site Property Manager Relationship Specialty Start Date End Date Soledad Lucas MD 1188 [facility] [address] [place] [address] PCP - General INTERNAL MEDICINE 09/29/21 documented as of this encounter
--- OUTSIDE RECORDS SUMMARY | 2024-08-03 03:25 | XMS_ITS | Encounter Summary ---
Author Organization [facility] Address [address] [place] [address]. [place], [place] [address] [place] [address] Care Team Providers Care Foxer Name Role Phone Soledad Lucas MD Primary Care Provider [phone] Reason for Visit * Reason Onset Date Comments Schedule Test 07/28/2022 Reg stress Encounter Details Date Type Department Care Team (Late st Contact Info) Description 07/28/2022 Telephone [facility] [address] Faby Yu RMA Schedule Test (Reg stress) Social History Tobacco Use Types Packs/Day Years [...] Coronavirus/COVID-19? No / Unsure 07/13/2022 3:18 PM MACHINE FITTER documented as of this encounter Progress Notes * GLORIA Samuels - 07/28/2022 3:12 PM CST Returned call to schedule reg stress per Dr Lucas but unable to leave message, vm not set up. Letter sent to patient 12.13 INE FITTER documented in this encounter Plan of Treatment Upcoming Encounters Date Type Department Care Team (Late st Contact Info) Description 08/19/2024 9:00 AM MACHINE FITTER [facility] - [address] [place] [address] [place] [address] [place] [address] 12/16/2024 10:40 AM CDT [facility] 3 [facility] [address] [place] [address] Ramsey Oakley MD 3 [facility] [address] [place] [address] documented as of this encounter Visit Diagnoses Not on filedocumented in this encounter Additional Health Concerns Assessment Noted Time PHQ-9 Depression Total Score: 1 09/29/19 10:03 AM MACHINE FITTER documented as of this encounter Care Teams Foxer Relationship Specialty Start Date End Date Soledad Lucas MD [address] [place] [address] PCP - General INTERNAL MEDICINE 09/29/21 documented as of this encounter
--- OUTSIDE RECORDS SUMMARY | 2024-08-03 03:25 | XMS_ITS | Encounter Summary ---
Author Organization [facility] Address [address] [place] [address]. [address] [address] Care Team Providers Care Electrician Yard Name Role Phone Soledad Lucas MD Primary Care Provider [phone] Reason for Visit * Reason Comments Knee Pain Pt is here to get hi s Left knee drained Encounter Details Date Type Department Care Team (Latest Contact Info) Description 08/05/2022 10:40 AM COMPUTER TESTER Office Visit [facility] - [place] [address] [address] [place], [place] [address] Soledad Lucas MD [address] [place] [address] [address] [place], [place] [phone] Knee Pain (Pt is here to get his Left knee drained) Social History Tobacco Use Types Packs/Day Years [...] Coronavirus/COVID-19? No / Unsure 08/05/2022 10:33 AM COMPUTER TESTER documented as of this encounter Last Filed Vital Signs Vital Sign Reading Time Taken Comments Blood Pressure 136/84 08/05/2022 10:47 AM COMPUTER TESTER Pulse 80 08/05/2022 10:47 AM COMPUTER TESTER Temperature 36.2 ??C (97.1 ??F) 08/05/2022 1 0:47 AM COMPUTER TESTER Respiratory Rate 18 08/05/2022 10:4 7 AM COMPUTER TESTER Oxygen Saturation 96% 08/05/2022 10: 47 AM COMPUTER TESTER Inhaled Oxygen Concentration - - Weight 104.2 kg (229 lb 12.8 oz) 2021 10:47 AM COMPUTER TESTER Height 185.4 cm (6' 1 ) 08/05/2022 10:4 7 AM COMPUTER TESTER Body Mass Index 30.32 08/05/2022 10:47 AM COMPUTER TESTER documented in this encounter Patient Instructions * Attachments The following attachments cannot be sent through Care Everywhere. * Knee Pain Discharge Instructions (Polish) documented in this encounter Progress Notes * Soledad Lucas MD - 08/05/2022 10:40 AM CSTSummary: Acute visit notes Images from the original note were not included. Internal Medicine Outpatient Progress Note CC: Knee Pain (Pt is here to get his Left knee drained) HPI: Juliet Stout is a 60-year-old male who presents for an acute visit for concerns about left kneejoint swelling with pain. According to patient, over the last few days, he has experienced fullnessin the left knee joint. This is normal. No recent trauma. He is status post right knee replacement surgery done a couple of years ago. Recently was referred to orthopedics for reassessment of possible left knee surgery however patient not ready as he does not have the support system for postsurgeryrecovery. Patient would like to defer any surgeries at this time. He comes in today with the same complaint. Has had multiple knee effusions with knee drainage done in the past. At today's visit, serosanguineous fluid of about 80 cc drawn from the left knee joint. No fever or chills. No history of gouty arthritis or pseudogout. Patient would like his Addressed at today's visit. He has been using his hydrocodone without any significant improvement. Cannot use NSAIDs as he is asthmatic. Problem List Patient Active Problem List Diagnosis [...] Outpatient Medications Marked as Taking for the 08/05/22 encounter (Office Visit) with Soledad Lucas MD [...] the lungs daily. 60 each 2 ??? ipratropium-albuterol (DUONEB) 0.5-2.5 (3) MG/3ML Solution Take 3 mLs by nebulization every 6 (six) hours as needed. 360 mL 0 ??? losartan-hydroCHLOROthiazide (HYZAAR) 50-12.5 MG tablet TAKE 1 TABLET BY MOUTH DAILY 90 tablet 1 ??? metFORMIN (GLUCOPHAGE) 500 [...] 30 tablet 0 ??? vitamin D2, ergocalciferol, 84328 UNITS capsule Take 1 capsule (50,000 Units total) by mouth weekly. 12 capsule 1 Allergies: Allergies Allergen Reactions ??? Lisinopril Swelling Swollen lips Review of Systems Constitutional: Negative for chills, diaphoresis, fever, malaise/fatigue and weight loss. HENT: Negative. Eyes: Negative. Respiratory: Negative. Cardiovascular: Negative for chest pain, palpitations, orthopnea, claudication, leg swelling and PND. Gastrointestinal: Negative. Genitourinary: Negative. Musculoskeletal: Positive for joint pain. Negative for back pain, falls, myalgias and neck pain. Neurological: Negative. Objective: Filed Vitals: 08/05/22 1047 BP: 136/84 Pulse: 80 Resp: 18 Temp: 97.1 ??F (36.2 ??C) TempSrc: Temporal SpO2: 96% Weight: 104.2 kg (229 lb 12.8 oz) Height: 6' 1 (1.854 m) Body mass index is 30.32 kg/m??. General alert, cooperative, no distress HEENT [...] affect MSK No synovitis, no bony tenderness, large left knee effusion with no tenderness or erythema. Patient has mild limitation in flexion of the left knee joint. No limitation in extension of the left knee joint. Not warm to touch. Lymph No cervical or supraclavicular adenopathy Assessment and Plan: Encounter Diagnose(s) ICD-10-CM ICD-9-CM SNOMED CT(R) 1. Effusion of left knee M25.462 719.06 EFFUSION OF JOINT OF LEFT KNEE BUpivacaine (PF) (MARCAINE) 0.25 % injection 5 mL triamcinolone acetonide (KENALOG-40) injection 40 mg CULTURE, ROUTINE W/ GRAM STAIN (SMD/SJS/SFL ONLY) DRAIN/INJECT LARGE JOINT/BURSA CELL COUNT W/ DIFF BODY FLUID CELL COUNT W/ DIFF BODY FLUID CULTURE, ROUTINE W/ GRAM STAIN (SMD/SJS/SFL ONLY) 2. Primary osteoarthritis of left knee M17.12 715.16 OSTEOARTHRITIS OF LEFT KNEE JOINT BUpivacaine (PF) (MARCAINE) 0.25 % injection 5 mL triamcinolone acetonide (KENALOG-40) injection 40 mg CULTURE, ROUTINE W/ GRAM STAIN (SMD/SJS/SFL ONLY) DRAIN/INJECT LARGE JOINT/BURSA CELL COUNT W/ DIFF BODY FLUID CELL COUNT W/ DIFF BODY FLUID CULTURE, ROUTINE W/ GRAM STAIN (SMD/SJS/SFL ONLY) 1. Effusion of left knee - BUpivacaine (PF) (MARCAINE) 0.25 % injection 5 mL - triamcinolone acetonide (KENALOG-40) injection 40 mg - CULTURE, ROUTINE W/ GRAM STAIN (SMD/SJS/SFL ONLY); Future - DRAIN/INJECT LARGE JOINT/BURSA - CELL COUNT W/ DIFF BODY FLUID; Future - CELL COUNT W/ DIFF BODY FLUID - CULTURE, ROUTINE W/ GRAM STAIN (SMD/SJS/SFL ONLY) 2. Primary osteoarthritis of left knee - BUpivacaine (PF) (MARCAINE) 0.25 % injection 5 mL - triamcinolone acetonide (KENALOG-40) injection 40 mg - CULTURE, ROUTINE W/ GRAM STAIN (SMD/SJS/SFL ONLY); Future - DRAIN/INJECT LARGE JOINT/BURSA - CELL COUNT W/ DIFF BODY FLUID; Future - CELL COUNT W/ DIFF BODY FLUID - CULTURE, ROUTINE W/ GRAM STAIN (SMD/SJS/SFL ONLY) -Patient encouraged to follow-up with orthopedics as he will need left knee surgery. Counseling given: Yes Tobacco comments: counsled by Dr Lucas I spent 20 minutes today reviewing the patient's medical record, obtaining history, performing an exam, ordering medications, tests, and/or procedures, documenting in the medical record, referring and/or communicating with other health care providers, counseling and educating the patient, reviewingand communicating test results and coordinating care. I spent an additional 10 minutes performing the procedure. Side effects and less common but more severe adverse effects of recommended medical therapies were explained to the patient. Requested MyChart or telephone follow up prn if symptoms change, worsen, or persist, or if side effect of treatment is experienced. LOGAN: This dictation was at least in part performed using OOYYO and there may be some inherent flaws in this air sampler due to the nature of this program. Soledad Lucas MD Internal Medicine [facility]. UTER TESTER documented in this encounter Plan of Treatment Upcoming Encounters Date Type Department Care Team (Late st Contact Info) Description 08/19/2024 9:00 AM COMPUTER TESTER Office Visit [facility]pec[facility]ty Care - [place] [address] [address] [place] [address] Soledad Lucas MD [address] [place] [address] 12/16/2024 10:40 AM CDT Office Visit [facility] Care - [address] [place] [address] Ramsey Oakley MD [address] [facility] [address] [place] [address] Scheduled Orders Name Type Priority Associated Diagnoses Orde r Schedule DRAIN/INJECT LARGE JOINT/BURSA Procedures Routine Effusion of left knee Primary osteoarthritis of left knee Ordered: 08/05/2022 documented as of this encounter Visit Diagnoses Diagnosis Effusion of left knee- Primary Effusion of lower leg joint Primary osteoarthritis of left knee Primary localized osteoarthrosis, lower leg documented in this encounter Administered Medications Inactive Administered Medications - up to 3 most recent administrations Medication Order MAR Action Action Date Dose Rate Site BUpivacaine (PF) (MARCAINE) 0.25 % injection 5 mL 5 mL, Intrapleural, Once, 1 dose, On Mon08/05/22 at 1145Indications:Effusion of left knee,Primary osteoarthritis of left knee Given 08/05/2022 12:09 PM COMPUTER TESTER 5 mLs Right Knee triamcinolone acetonide (KENALOG-40) injection 40 mg 40 mg, Intramuscular, Once, 1 dose, On Mon08/05/22 at 1145, Hardikke WellIndications:Effusion of left knee,Primary osteoarthritis of left knee Given 08/05/2022 12:13 PM COMPUTER TESTER 40 mg Other documented in this encounter Additional Health Concerns Assessment Noted Time PHQ-9 Depression Total Score: 1 09/29/19 22 10:03 AM COMPUTER TESTER documented as of this encounter Care Teams Electrician Yard Relationship Specialty Start Date End Date Soledad Lucas MD 1188 [facility] [address] [place] [address] PCP - General INTERNAL MEDICINE 09/29/21 documented as of this encounter
--- OUTSIDE RECORDS SUMMARY | 2024-08-03 03:25 | XMS_ITS | Encounter Summary ---
Author Organization [facility] Address [address] [place] [address]. [place], [place] [address] [place] [address] Care Team Providers Care Fish Receiver Name Role Phone Soledad Lucas MD Primary Care Provider [phone] Encounter Details Date Type Department Care Team (Latest Contact Info) Description 01/06/2023 Travel Social History Tobacco Use Types Packs/Day [...] suspected to have Coronavirus/COVID-19? No / Unsure 01/06/2023 11:45 AM CDT documented as of this encounter Plan of Treatment Upcoming Encounters Date Type Department Care Team (Late st Contact Info) Description 08/19/2024 9:00 AM MECHANICAL MAINTENANCE SUPERVISOR Office Visit [facility] Care - [place] [address] [address] [place] [address] Soledad Lucas MD [address] [place] [address] [address] [place] [address] 12/16/2024 10:40 AM CDT Office Visit [facility] - [facility] 3 [facility] [address] [place] [address] Ramsey Oakley MD 3 [facility] [address] [place] [address] documented as of this encounter Visit Diagnoses Not on filedocumented in this encounter Additional Health Concerns Assessment Noted Time PHQ-9 Depression Total Score: 1 09/29/19 22 10:03 AM MECHANICAL MAINTENANCE SUPERVISOR documented as of this encounter Care Teams Fish Receiver Relationship Specialty Start Date End Date Soledad Lucas MD [address] [facility] [address] [place] [address] PCP - General INTERNAL MEDICINE 09/29/21 documented as of this encounter
--- OUTSIDE RECORDS SUMMARY | 2024-08-03 03:25 | XMS_ITS | Encounter Summary ---
Author Organization [facility] Address [address] [place] [address]. [place], [place] [address] [place] [address] Care Team Providers Care Instrument Technician Apprentice Name Role Phone Soledad Lucas MD Primary Care Provider [phone] Encounter Details Date Type Department Care Team (Latest Contact Info) Description 07/06/2022 Travel Social History Tobacco Use Types Packs/Day [...] Coronavirus/COVID-19? No / Unsure 07/06/2022 9:53 AM VICE PRESIDENT OF PRODUCT MARKETING documented as of this encounter Plan of Treatment Upcoming Encounters Date Type Department Care Team (Late st Contact Info) Description 08/19/2024 9:00 AM VICE PRESIDENT OF PRODUCT MARKETING Office Visit [facility] Mult[facility]pec[facility]ty Care - [place] [address] [address] [place] [address] Soledad Lucas MD [address] [place] [address] [address] [place] [address] 12/16/2024 10:40 AM CDT Office Visit [facility] - [facility] 3 [facility] [address] [place] [address] Ramsey Oakley MD 3 [facility] [address] [place] [address] documented as of this encounter Visit Diagnoses Not on filedocumented in this encounter Additional Health Concerns Infection Onset Date Last Indicated Resolved Time COVID-19 Rule Out 07/06/2022 07/06/2022 07/06/2022 3:14 PM VICE PRESIDENT OF PRODUCT MARKETING COVID-19 Rule Out 07/06/2022 07/06/2022 07/08/2022 1:45 AM VICE PRESIDENT OF PRODUCT MARKETING Assessment Noted Time PHQ-9 Depression Total Score: 1 09/29/19 22 10:03 AM VICE PRESIDENT OF PRODUCT MARKETING documented as of this encounter Care Teams Instrument Technician Apprentice Relationship Specialty Start Date End Date Soledad Lucas MD [address] [address] PCP - General INTERNAL MEDICINE 09/29/21 documented as of this encounter
--- OUTSIDE RECORDS SUMMARY | 2024-08-03 03:25 | XMS_ITS | Encounter Summary ---
Author Organization [facility] Address [address] [place] [address]. [place], [place] [address] [place] [address] Care Team Providers Care Automated Manufacturing Instructor Name Role Phone Soledad Lucas MD Primary Care Provider [phone] Reason for Visit * Reason Onset Date Comments Schedule Test 07/19/2022 Reg stress Encounter Details Date Type Department Care Team (Late st Contact Info) Description 07/19/2022 Telephone [facility] [place] [address] Faby Yu RMA Schedule Test (Reg stress) [...] Coronavirus/COVID-19? No / Unsure 07/13/2022 3:18 PM LINTER SAW SHARPENER documented as of this encounter Progress Notes * GLORIA Samuels - 07/19/2022 3:01 PM CST VM not set up, unable to leave message to schedule reg stress per Dr Maeve Lucas. Will send letter to patient to contact our office for appointment. ER SAW SHARPENER documented in this encounter Plan of Treatment Upcoming Encounters Date Type Department Care Team (Late st Contact Info) Description 08/19/2024 9:00 AM LINTER SAW SHARPENER [facility] [address] [place] [address] Soledad Lucas MD [address] [place] [address] 12/16/2024 10:40 AM CDT Office Visit [facility] 3 [facility] [address] [place] [address] Ramsey Oakley MD 3 [facility] [address] [place] [address] documented as of this encounter Visit Diagnoses Not on filedocumented in this encounter Additional Health Concerns Assessment Noted Time PHQ-9 Depression Total Score: 1 09/29/19 22 10:03 AM LINTER SAW SHARPENER documented as of this encounter Care Teams Automated Manufacturing Instructor Relationship Specialty Start Date End Date Soledad Lucas MD [address] [place] [address] PCP - General INTERNAL MEDICINE 09/29/21 documented as of this encounter
--- OUTSIDE RECORDS SUMMARY | 2024-08-03 03:25 | XMS_ITS | Encounter Summary ---
Author Organization [facility] Address [address] [place] [address]. [place], [place] [address] [place] [address] Care Team Providers Care Shellfish Processing Laborer Name Role Phone Soledad Lucas MD Primary Care Provider [phone] Encounter Details Date Type Department Care Team (Latest Contact Info) Description 05/25/2022 Travel Social History Tobacco Use Types Packs/Day [...] st Contact Info) Description 08/19/2024 9:00 AM COMPRESS ENGINEER Office Visit [facility] Multispecialty Care - [place] [address] [address] [place] [address] Soledad Lucas MD [address] [place] [address] [address] [place] [address] 12/16/2024 10:40 AM CDT Office Visit [facility] - [facility] 3 [facility] [address] [place] [address] Ramsey Oakley MD 3 [facility] [address] [place] [address] documented as of this encounter Visit Diagnoses Not on filedocumented in this encounter Additional Health Concerns Assessment Noted Time PHQ-9 Depression Total Score: 1 09/29/19 22 10:03 AM COMPRESS ENGINEER documented as of this encounter Care Teams Shellfish Processing Laborer Relationship Specialty Start Date End Date Soledad Lucas MD [address] [address] PCP - General INTERNAL MEDICINE 09/29/21 documented as of this encounter
--- OUTSIDE RECORDS SUMMARY | 2024-08-03 03:25 | XMS_ITS | Encounter Summary ---
Author Organization [facility] Address [address] [place] [address]. [address] [address] Care Team Providers Care Office Machinery Or Equipment Installer Name Role Phone Soledad Lucas MD Primary Care Provider [phone] Encounter Details Date Type Department Care Team (Late st Contact Info) Description 07/05/[address] [facility] Care - [place] [address] [address] [place], [place] [id number] Soledad Lucas MD [address] [place] [address] [address] [place] [address] Social History Tobacco Use Types Packs/Day [...] Coronavirus/COVID-19? No / Unsure 07/06/2022 9:[address]PERATOR documented as of this encounter Plan of Treatment Upcoming Encounters Date Type Department Care Team (Late st Contact Info) Description 08/19/2024 9:[address]PER[address] Office Visit [facility] Multispecialty Care - [place] [address] [address] [place] [address] Soledad Lucas MD [address] [address] 12/16/2024 10:40 AM CDT Office Visit [facility] Care - [facility] [address] [facility] [address] [place] [address] Ramsey Oakley MD [address] [facility] [address] [place] [address] documented as of this encounter Visit Diagnoses Diagnosis Primary osteoarthritis of left knee Primary localized osteoarthrosis, lower leg documented in this encounter Additional Health Concerns Infection Onset Date Last Indicated Resolved Time COVID-19 Rule Out 07/06/2022 07/06/2022 07/06/2022 3:[address]PERATOR COVID-19 Rule Out 07/06/2022 07/06/2022 07/08/2022 1:[address]PER[address] Assessment Noted Time PHQ-9 Depression Total Score: 1 09/29/19 22 10:[address]PERATOR documented as of this encounter Care Teams Office Machinery Or Equipment Installer Relationship Specialty Start Date End Date Soledad Lucas MD [address] [place] [address] PCP - General INTERNAL MEDICINE 09/29/21 documented as of this encounter
--- OUTSIDE RECORDS SUMMARY | 2024-08-03 03:25 | XMS_ITS | Encounter Summary ---
Author Organization [facility] Address [address] [place] [address]. [address] [address] Care Team Providers Care Grocery Store Manager Name Role Phone Soledad Lucas MD Primary Care Provider [phone] Reason for Visit * Reason Comments Knee Pain Has appt with orthos urg 01/18 Symptoms Of Head & Neck Left side neck/s calp pulling sensation Encounter Details Date Type Department Care Team (Latest Contact Info) Description 01/06/2023 11:40 AM CDT Office Visit [facility] Multispecialty Care - [place] [address] [address] [place], [place] [phone] Soledad Lucas MD [address] [place] [id number] Knee Pain (Has appt with orthosurg 01/18); Symptoms Of Head & Neck (Left side neck/scalp pulling sensation ) Social History Tobacco Use Types Packs/Day Years [...] Sign Reading Time Taken Comments Blood Pressure 125/75 01/06/2023 11:53 AM CDT Pulse 85 01/06/2023 11:53 AM CDT Temperature 37.1 ??C (98.7 ??F) 01/06/2023 11:53 AM C DT Respiratory Rate 18 01/06/2023 11:53 AM CDT Oxygen Saturation 97% 01/06/2023 11:53 AM CDT Inhaled Oxygen Concentration - - Weight 95.7 kg (211 lb) 01/06/2023 11:53 AM CDT Height 185.4 cm (6' 1 ) 01/06/2023 11:53 AM CDT Body Mass Index 27.84 01/06/2023 11:53 AM CDT documented in this encounter Patient Instructions * Patient Instructions* Soledad Lucas MD - 01/06/2023 11:40 AM CDT Follow-up as planned for your annual physical. Please come fasting during that visit. Please follow-up with orthopedics for your knee. documented in this encounter Progress Notes * Soledad Lucas MD - 01/06/2023 11:40 AM CDTSummary: Acute visit notes Images from the original note were not included. Internal Medicine Outpatient Progress Note CC: Knee Pain (Has appt with orthosurg 01/18) and Symptoms Of Head & Neck (Left side neck/scalppulling sensation ) HPI: Juliet Stout is a 61-year-old male who presents for an acute visit for concerns about bilateralknee pain. Patient has been seen on multiple occasions for knee pain with effusion. Has had multiple drainage of knee effusion done. I have placed a referral for patient to follow-up with orthopedicsand patient tells me he is scheduled for his first appointment in a few weeks with Ortho. For now, patient's pain appears mild to moderate. He appears to be ambulating without any difficulty. I did discuss with patient about avoiding any new drainage at this time and to follow closely with orthopedics. Patient agreeable to plan. I will give him a one-time refill of his Percocet to use as needed for aches and pains. Has not noticed any redness with the joints. Denies any fever or chills. He also recently has noticed some shooting pain in the neck that radiates upward to the base of theskull. He tells me he did fall many years ago. Imaging done many years ago also showed arthritis ofthe neck. Occasionally will experience shooting pain in the neck region but radiates up into the skull. No radiation down to the upper extremities. The shooting pain is mainly on the left side of theneck. Rates pain as moderate. No prior injections. Problem List Patient Active Problem List Diagnosis [...] History Tobacco Use ??? Smoking status: Never Passive exposure: Never ??? Smokeless tobacco: Never ??? Tobacco comments: counsled by Dr Lucas Vaping Use ??? Vaping Use: Never used Substance Use Topics ??? Alcohol use: Yes Alcohol/week: 11.7 standard drinks Types: 7 Cans of beer per week Comment: Socially ??? Drug use: Yes Types: Marijuana Medications: Outpatient Medications Marked as Taking for the 01/06/23 encounter (Office Visit) with Soledad Lucas MD Medication Sig Dispense Refill ??? albuterol sulfate HFA 108 (90 Base) MCG/ACT inhaler Inhale 2 puffs into the lungs every 6 (six)hours as needed for Wheezing. 18 g 5 ??? fluticasone furoate-vilanterol (BREO ELLIPTA) 200-25 MCG/ACT inhaler Inhale 1 puff into the lungs daily. 60 each 2 ??? ipratropium-albuterol (DUONEB) 0.5-2.5 (3) MG/3ML Solution Take 3 mLs by nebulization every 6 (six) hours as needed. 360 mL 11 ??? losartan-hydroCHLOROthiazide (HYZAAR) 50-12.5 MG tablet TAKE 1 TABLET BY MOUTH DAILY 90 tablet 1 ??? oxyCODONE-acetaminophen (PERCOCET) 7.5-325 MG tablet Take 1 tablet by mouth daily as needed forPain. Indications: Chronic Pain 30 tablet 0 ??? tiZANidine (ZANAFLEX) 4 MG tablet Take 1 tablet (4 mg total) by mouth 2 (two) times daily as needed. 30 tablet 1 ??? vitamin D2, ergocalciferol, (DRISDOL) 1.25 mg capsule Take 1 capsule (50,000 Units total) by mouth every 7 days. 12 capsule 1 Allergies: Allergies Allergen Reactions ??? Lisinopril Swelling Swollen lips Review of Systems Constitutional: Negative for chills, diaphoresis, fever, malaise/fatigue and weight loss. HENT: Negative. Eyes: Negative. Respiratory: Negative. Cardiovascular: Negative for chest pain, palpitations, orthopnea, claudication, leg swelling and PND. Gastrointestinal: Negative. Genitourinary: Negative. Musculoskeletal: Positive for joint pain and neck pain. Negative for back pain, falls and myalgias. Neurological: Positive for tingling. Negative for dizziness, tremors, sensory change, speech change, focal weakness, seizures, loss of consciousness, weakness and headaches. Objective: Filed Vitals: 01/06/23 1153 BP: 125/75 Pulse: 85 Resp: 18 Temp: 98.7 ??F (37.1 ??C) TempSrc: Temporal SpO2: 97% Weight: 95.7 kg (211 lb) Height: 6' 1 (1.854 m) Body mass index is 27.84 kg/m??. General alert, cooperative, no distress HEENT [...] Encounter Diagnose(s) ICD-10-CM ICD-9-CM SNOMED CT(R) 1. Cervical radiculopathy M54.12 723.4 CERVICAL RADICULOPATHY tiZANidine (ZANAFLEX) 4 MG tablet oxyCODONE-acetaminophen (PERCOCET) 7.5-325 MG tablet 2. Primary osteoarthritis of left knee M17.12 715.16 OSTEOARTHRITIS OF LEFT KNEE JOINT 3. Chronic bilateral low back pain with left-sided sciatica M54.42 724.2 CHRONIC LOW BACK PAIN oxyCODONE-acetaminophen (PERCOCET) 7.5-325 MG tablet G89.29 724.3 338.29 4. Vitamin D deficiency E55.9 268.9 VITAMIN D DEFICIENCY vitamin D2, ergocalciferol, (DRISDOL) 1.25mg capsule 1. Primary osteoarthritis of left knee -Patient symptoms chronic. Has had multiple knee drainage done. For now, given the patient's symptoms mild to moderate and effusion mild at this time, will defer any joint aspiration. He has upcomingappointment with orthopedics in the next few days. Anti-inflammatories for now and as tolerated however patient will avoid any NSAIDs given history of intolerance to NSAIDs. 2. Chronic bilateral low back pain with left-sided sciatica -Patient symptoms chronic. Has had multiple knee drainage done. For now, given the patient's symptoms mild to moderate and effusion mild at this time, will defer any joint aspiration. He has upcomingappointment with orthopedics in the next few days. Anti-inflammatories for now and as tolerated however patient will avoid any NSAIDs given history of intolerance to NSAIDs. - oxyCODONE-acetaminophen (PERCOCET) 7.5-325 MG tablet; Take 1 tablet by mouth daily as needed for Pain. Indications: Chronic Pain Dispense: 30 tablet; Refill: 0 3. Vitamin D deficiency - vitamin D2, ergocalciferol, (DRISDOL) 1.25 mg capsule; Take 1 capsule (50,000 Units total) by mouth every 7 days. Dispense: 12 capsule; Refill: 1 4. Cervical radiculopathy - tiZANidine (ZANAFLEX) 4 MG tablet; Take 1 tablet (4 mg total) by mouth 2 (two) times daily as needed. Dispense: 30 tablet; Refill: 1 - oxyCODONE-acetaminophen (PERCOCET) 7.5-325 MG tablet; Take 1 tablet by mouth daily as needed for Pain. Indications: Chronic Pain Dispense: 30 tablet; Refill: 0 -Symptoms acute. No red flag signs. No longer on Flexeril. Close follow-up if worsening symptoms atwhich time we will consider imaging versus physical therapy. Counseling given: Yes Tobacco comments: counsled by Dr Lucas I personally spent a total of 30 minutes on the day of the encounter. This includes [id number] and qlc-[id number]-face time I provided on the day of [...] was at least in part performed using [employer] speak and there may be some inherent flaws in this air brake man due to the nature of this program. Soledad Lucas MD Internal Medicine [facility], [facility]. documented in this encounter Plan of Treatment Upcoming Encounters Date Type Department Care Team (Late st Contact Info) Description 08/19/2024 9:00 AM COLD PRESS OPERATOR Office Visit [facility] Multispecialty Care - [address] [place] [address] Soledad Lucas MD [address] [facility] [address] [place] [address] 12/16/2024 10:40 AM CDT Office Visit [facility] Multispecialty Care - [facility] [address] [facility] [place] [address] Ramsey Oakley MD [address] [facility] [address] [place] [address] documented as of this encounter Visit Diagnoses Diagnosis Cervical radiculopathy- Primary Brachial neuritis or radiculitis nos Primary osteoarthritis of left knee Primary localized osteoarthrosis, lower leg Chronic bilateral low back pain with left-sided sciatica Vitamin D deficiency Unspecified vitamin D deficiency documented in this encounter Additional Health Concerns Assessment Noted Time PHQ-9 Depression Total Score: 1 09/29/19 10:03 AM COLD PRESS OPERATOR documented as of this encounter Care Teams Grocery Store Manager Relationship Specialty Start Date End Date Soledad Lucas MD [address] [place] [id number] PCP - General INTERNAL MEDICINE 09/29/21 documented as of this encounter
--- OUTSIDE RECORDS SUMMARY | 2024-08-03 03:25 | XMS_ITS | Encounter Summary ---
Author Organization [facility] Address [address] [place] [address]. [place], [place] [id number] [place] [address] Care Team Providers Care Film Cleaner Name Role Phone Soledad Lucas MD Primary Care Provider [phone] Encounter Details Date Type Department Care Team (Latest Contact Info) Description 05/23/2022 Travel Social History Tobacco Use Types Packs/Day [...] st Contact Info) Description 08/19/2024 9:00 AM COMMUNICATIONS INSTRUCTOR Office Visit [facility] Multispecialty Care - [place] [address] [address] [place] [address] Soledad Lucas MD [address] [place] [address] [address] [place] [address] 12/16/2024 10:40 AM CDT Office Visit [facility] Multispecialty Care - [facility] [address] [facility] [address] [place] [address] Ramsey Oakley MD [address] [facility] [address] [place] [address] documented as of this encounter Visit Diagnoses Not on filedocumented in this encounter Additional Health Concerns Assessment Noted Time PHQ-9 Depression Total Score: 1 09/29/19 22 10:03 AM COMMUNICATIONS INSTRUCTOR documented as of this encounter Care Teams Film Cleaner Relationship Specialty Start Date End Date Soledad Lucas MD [address] [address] PCP - General INTERNAL MEDICINE 09/29/21 documented as of this encounter
--- OUTSIDE RECORDS SUMMARY | 2024-08-03 03:25 | XMS_ITS | Encounter Summary ---
Author Organization [facility] Address [address] [place] [address]. [place], [place] [address] [place] [address] Care Team Providers Care Hospital Monitor Name Role Phone Soledad Lucas MD Primary Care Provider Reason for Visit * Reason Comments Lab (SCAN) Encounter Details Date Type Department Care Team (Latest Contact Info) Description 02/10/2023 Scan HEALTH INFO [...] Contact Info) Description 08/19/2024 9:00 AM LEAD SLOT TECHNICIAN Office Visit [facility] Multispecialty Care - [place] [address] [address] [place] [address] Soledad Lucas MD [address] [place] [address] [address] [place] [address] 12/16/2024 10:40 AM CDT Office Visit [facility] Multispecialty Care - [facility] [address] [facility] [address] [place] [address] Ramsey Oakley MD [address] [place] [address] documented as of this encounter Procedures Procedure Name Priority Date/Time Associated Diagnosis Comments OUTSIDE LAB (SCAN ORDER) Routine 02/10/2023 documented in this encounter Results * OUTSIDE LAB (SCAN) (02/10/2023) HGB A1C 5.5 % [facility] 02/10/2023 [facility] Scanned SCANNING Final Resu lt [facility] documented in this encounter Visit Diagnoses Not on filedocumented in this encounter Additional Health Concerns Assessment Noted Time PHQ-9 Depression Total Score: 1 09/29/19 22 10:03 AM LEAD SLOT TECHNICIAN documented as of this encounter Care Teams Hospital Monitor Relationship Specialty Start Date End Date Soledad Lucas MD [address] [facility] [address] [place] [address] PCP - General INTERNAL MEDICINE 09/29/21 documented as of this encounter
--- OUTSIDE RECORDS SUMMARY | 2024-08-03 03:25 | XMS_ITS | Encounter Summary ---
Author Organization [facility] Address [address] [place] [address]. [place], [place] [address] [place] [address] Care Team Providers Care Construction Carpenters Helper Name Role Phone Soledad Lucas MD Primary Care Provider [phone] Reason for Referral * (Routine) - Closed Specialty Diagnoses / Procedures Referred By Prasanth santillan Referred To Contact Diagnoses Knee effusion, left Procedures Joint Aspiration/Injection Soledad Lucas MD [address] [address] Phone: tel: fax: Referral ID Status Reason Start Date Expiration Date Visits Re quested Visits Authorized [id number] Closed 10/14/2022 10/15/2023 1 1 R CONE DRYING MACHINE OPERATOR * Consultation (Routine) - Closed Specialty Diagnoses / Procedures Referred By Prasanth santillan Referred To Contact ORTHOPAEDICS Diagnoses Knee effusion, left Arthritis of left knee Procedures OFFICE/OUTPT VISIT,NEW,LEVL III OFFICE/OUTPT VISIT,NEW,LEVL IV OFFICE/OUTPT VISIT,NEW,LEVL V OFFICE/OUTPT VISIT,EST,LEVL III OFFICE/OUTPT VISIT,EST,LEVL IV OFFICE/OUTPT VISIT,EST,LEVL V Soledad Lucas MD [address] [address] Phone: tel: fax: Raghu Caldera MD [address] [place] [address] [address] [place] [address] Phone: tel: fax: Referral ID Status Reason Start Date Expiration Date V isits Requested Visits Authorized [id number] Closed Specialty Services 10/14/2022 10/15/2023 99 99 Scheduling Instructions Please send to Dr Caldera. R CONE DRYING MACHINE OPERATOR Reason for Visit * Reason Comments Knee Pain Patient presents for left knee pain and to have left knee drained Encounter Details Date Type Department Care Team (Latest Contact Info) Description 10/14/2022 1:40 PM PAPER CONE DRYING MACHINE OPERATOR Office Visit [facility] Multispecialty Care - [address] [place], [place] [id number] Soledad Lucas MD [address] [facility] [address] [place], [place] [id number] Knee Pain (Patient presents for left knee pain and to have left knee drained) Social History Tobacco Use Types [...] Coronavirus/COVID-19? No / Unsure 10/14/2022 1:36 PM PAPER CONE DRYING MACHINE OPERATOR documented as of this encounter Last Filed Vital Signs Vital Sign Reading Time Taken Comments Blood Pressure 112/72 10/14/2022 1:42 PM PAPER CONE DRYING MACHINE OPERATOR Pulse 81 10/14/2022 1:42 PM PAPER CONE DRYING MACHINE OPERATOR Temperature 35.8 ??C (96.5 ??F) 10/14/2022 1:42 PM CS T Respiratory Rate 18 10/14/2022 1:42 PM PAPER CONE DRYING MACHINE OPERATOR Oxygen Saturation 98% 10/14/2022 1:42 PM PAPER CONE DRYING MACHINE OPERATOR Inhaled Oxygen Concentration - - Weight 106.1 kg (234 lb) 10/14/2022 1:42 PM PAPER CONE DRYING MACHINE OPERATOR Height - - Body Mass Index 30.87 08/29/2022 10:50 AM PAPER CONE DRYING MACHINE OPERATOR documented in this encounter Patient Instructions * Patient Instructions* Soledad Lucas MD - 10/14/2022 1:40 PM PAPER CONE DRYING MACHINE OPERATOR Follow up in 2 weeks for your physical- come fasting. Referral call You will receive a call from our referral team ([phone]) regarding your referral. Insurance authorization Our clinical specialist medical device will contact your insurance company to get prior authorization if needed. Appointment If you have been referred to an [facility] hospital or [facility] provider, the hospital or clinic you have been referred to will call you to schedule your appointment. For those outside services of [facility], our referral expects will be in contact by phone or mail regarding your recently placed referral. If you have not heard anything from your referral in about 1 week, please call [phone]. Working with insurance companies can be cumbersome, but we are dedicated to processing your referral timely and efficiently. Please know you have a caring and competent team working on your behalf [facility] of care as quickly as possible. R CONE DRYING MACHINE OPERATOR R CONE DRYING MACHINE OPERATOR documented in this encounter Progress Notes * Soledad Lucas MD - 10/14/2022 1:40 PM CSTAssociated Order(s): Joint Aspiration/Injection Post-Procedure Diagnose(s): Knee effusion, left Summary: Acute visit notes Images from the original note were not included. Internal Medicine Outpatient Progress Note CC: Knee Pain (Patient presents for left knee pain and to have left knee drained) HPI: Juliet Stout is a 61-year-old male who presents for an acute visit for concerns about swelling of the left knee joint. Patient with past history of fluid collection in the knees. He comes in today mainly concerned about fluid collection in the left knee joint. He has had fluid drained in previous visits. According to patient, over the last few weeks, he has noticed the left knee gradually becoming more lin. Has moderate pain as a result of the fluid collection. Notes mild stiffness as well. He has been referred to orthopedics in the past and recommendations made for surgery however patient had declined as he was not ready. He tells me he seems he is ready at this visit however would like a new referral to a different orthopedic surgeon. Currently on the pain medications to help with pain which is controlled whenever he takes his medication. Denies any fever or chills. No recent falls or near falls. Problem List Patient Active Problem List Diagnosis [...] Outpatient Medications Marked as Taking for the 10/14/22 encounter (Office Visit) with Soledad Lucas MD Medication Sig Dispense Refill ??? albuterol sulfate HFA 108 (90 Base) MCG/ACT inhaler Inhale 2 puffs into the lungs every 6 (six)hours as needed for Wheezing. 18 g 5 ??? atorvastatin 40 MG tablet Take 1 [...] 30 tablet 0 ??? vitamin D2, ergocalciferol, [address] UNITS capsule Take 1 capsule (50,000 Units total) by mouth weekly. 12 capsule 1 Current Facility-Administered Medications for the 10/14/22 encounter (Office Visit) with Soledad Lucas MD Medication Dose Route Frequency Provider Last Rate Last Admin ??? lidocaine (XYLOCAINE) 1 % injection SOLN 5 mL 5 mL Other Once Soledad Lucas MD ??? triamcinolone acetonide (KENALOG-40) injection 40 mg 40 mg Intra-articular Once Soledad Lucas MD Allergies: Allergies Allergen [...] myalgias and neck pain. Skin: Negative. Neurological: Negative. Objective: Filed Vitals: 10/14/22 1342 BP: 112/72 Pulse: 81 Resp: 18 Temp: 96.5 ??F (35.8 ??C) TempSrc: Temporal SpO2: 98% Weight: 106.1 kg (234 lb) Body mass index is 30.87 kg/m??. General alert, cooperative, no distress HEENT [...] affect MSK No synovitis, no bony tenderness, left knee joint with knee effusion. No obvious tenderness on palpation. Lymph No cervical or supraclavicular adenopathy Assessment and Plan: Encounter Diagnose(s) ICD-10-CM ICD-9-CM SNOMED CT(R) 1. Knee effusion, left M25.462 719.06 EFFUSION OF JOINT OF LEFT KNEE CULTURE, ROUTINE W/ GRAM STAIN(SMD/SJS/SFL ONLY) CELL COUNT W/ DIFF BODY FLUID Ambulatory referral to Orthopedics (OTHER) CELL COUNT W/ DIFF BODY FLUID CULTURE, ROUTINE W/ GRAM STAIN (SMD/SJS/SFL ONLY) triamcinolone acetonide (KENALOG-40) injection 40 mg lidocaine (XYLOCAINE) 1 % injection SOLN 5 mL 2. Arthritis of left knee M17.12 716.96 ARTHRITIS OF LEFT KNEE Ambulatory referral to Orthopedics (OTHER) triamcinolone acetonide (KENALOG-40) injection 40 mg lidocaine (XYLOCAINE) 1 % injection SOLN 5 mL 1. Knee effusion, left - CULTURE, ROUTINE W/ GRAM STAIN (SMD/SJS/SFL ONLY); Future - CELL COUNT W/ DIFF BODY FLUID; Future - Ambulatory referral to Orthopedics (OTHER) - CELL COUNT W/ DIFF BODY FLUID - CULTURE, ROUTINE W/ GRAM STAIN (SMD/SJS/SFL ONLY) - triamcinolone acetonide (KENALOG-40) injection 40 mg - lidocaine (XYLOCAINE) 1 % injection SOLN 5 mL 2. Arthritis of left knee - Ambulatory referral to Orthopedics (OTHER) - triamcinolone acetonide (KENALOG-40) injection 40 mg - lidocaine (XYLOCAINE) 1 % injection SOLN 5 mL Joint Aspiration/Injection Date/Time: 10/14/2022 2:28 PM Performed by: Soledad Lucas MD Authorized by: Soledad Lucas MD Indications: joint swelling Body area: knee Local anesthesia used: yes Anesthesia: local infiltration Anesthesia: Local anesthesia used: yes Local Anesthetic: lidocaine 1% without epinephrine Sedation: Patient sedated: no Preparation: Patient was prepped and draped in the usual sterile fashion. Needle size: 18 G Ultrasound guidance: no Approach: anterior Aspirate: serous Triamcinolone amount (mg): 40 mg. Lidocaine 1% amount (ml): 5cc. Patient tolerance: patient tolerated the procedure well with no immediate complications Comments: 30 cc of serous fluid drained from the medial aspect of the left knee joint. Counseling given: Yes Tobacco comments: counsled by Dr Lucas I personally spent a total of 30 minutes on the day of the encounter. This includes ddgl-uo-decx and wmr-pxsn-[id number]-face time I provided on the day of the encounter & excludes time spent performing separately reportable services. Side effects and less common but more severe adverse effects of recommended medical therapies were explained to the patient. Requested MyChart or telephone follow up prn if symptoms change, worsen, or persist, or if side effect of treatment is experienced. TEQUILAON: This dictation was at least in part performed using [employer] speak and there may be some inherent flaws in this television engineering teacher due to the nature of this program. Soledad Lucas MD Internal Medicine [facility], [facility]. R CONE DRYING MACHINE OPERATOR documented in this encounter Plan of Treatment Upcoming Encounters Date Type Department Care Team (Late st Contact Info) Description 08/19/2024 9:00 AM PAPER CONE DRYING MACHINE OPERATOR Office Visit [facility]ispec[facility]ty [facility] [place] [address] [place] [address] [address] [place] [address] Soledad Lucas MD [address] [facility] [address] [place] [address] 12/16/2024 10:40 AM CDT [facility] [address] [facility] [place] [address] Ramsey Oakley MD [address] [facility] [address] [place] [address] Scheduled Referrals Name Type Priority Associated Diagnoses Orde r Schedule Ambulatory referral to Orthopedics (OTHER) Referral Routine Knee effusion, left Arthritis of left knee Ordered: 10/14/2022 documented as of this encounter Procedures Procedure Name Priority Date/Time Associated Diagnosis Comments JOINT ASPIRATION/INJECTIO N Routine 10/14/2022 2:28 PM PAPER CONE DRYING MACHINE OPERATOR Knee effusion, left CULTURE, ROUTINE W/ GRAM STAIN Routine 10/14/2022 2:16 PM PAPER CONE DRYING MACHINE OPERATOR Knee effusion, left documented in this encounter Results * Joint Aspiration/Injection (10/14/2022 2:28 PM PAPER CONE DRYING MACHINE OPERATOR) Narrative Soledad Lucas MD - 10/14/2022 2:28 PM PAPER CONE DRYING MACHINE OPERATOR Soledad Lucas MD ? 10/14/2022 ??2:31 PM Joint Aspiration/Injection Date/Time: 10/14/2022 2:28 PM Performed by: Soledad Lucas MD Authorized by: Soledad Lucas MD Indications: joint swelling Body area: knee Local anesthesia used: yes Anesthesia: local infiltration Anesthesia: Local anesthesia used: yes Local Anesthetic: lidocaine 1% without epinephrine Sedation: Patient sedated: no Preparation: Patient was prepped and draped in the usual sterile fashion. Needle size: 18 G Ultrasound guidance: no Approach: anterior Aspirate: serous Triamcinolone amount (mg): 40 mg. Lidocaine 1% amount (ml): 5cc. Patient tolerance: patient tolerated the procedure well with no immediate complications Comments: 30 cc of serous fluid drained from the medial aspect of the left knee joint. us Soledad Lucas MD PROCEDURE/MINOR SURGICAL ORDERAB LES Final Result * CULTURE, ROUTINE W/ GRAM STAIN (SMD/SJS/SFL ONLY) (10/14/2022 2:16 PM PAPER CONE DRYING MACHINE OPERATOR) SPEC DESCRIPTION KNEE,LEFT 10/14/2022 2:16 PM PAPER CONE DRYING MACHINE OPERATOR [facility] SPECIAL REQUESTS NO SPECIAL REQUEST 10/14/2022 2:16 PM PAPER CONE DRYING MACHINE OPERATOR [facility] GRAM STAIN RESULT NO NEUTROPHILS OR ORGANISMS SEEN 10/17/2022 1:45 PM CDT [facility] CULTURE RESULT NO GROWTH 5 DAYS 10/20/2022 10:09 AM CDT [facility] STRUCTURE OF LEFT KNEE REGION / Unknown 10/14/2022 2:16 PM PAPER CONE DRYING MACHINE OPERATOR 10/15/2022 5:00 AM PAPER CONE DRYING MACHINE OPERATOR us Soledad Lucas MD MICROBIOLOGY - GENERAL ORDERABLE S Final Result [facility] [address] [place] [address], [id number] documented in this encounter Visit Diagnoses Diagnosis Knee effusion, left- Primary Effusion of lower leg joint Arthritis of left knee Unspecified arthropathy, lower leg documented in this encounter Administered Medications Inactive Administered Medications - up to 3 most recent administrations Medication Order MAR Action Action Date Dose Rate Site lidocaine (XYLOCAINE) 1 % injection SOLN 5 mL 5 mL, Other, Once, 1 dose, On Mon10/14/22 at 1445Indications:Knee effusion, left,Arthritis of left knee Given 10/14/2022 3:29 PM PAPER CONE DRYING MACHINE OPERATOR 5 mLs triamcinolone acetonide (KENALOG-40) injection 40 mg 40 mg, Intra-articular, Once, 1 dose, On Mon10/14/22 at 1445, Hung WellIndications:Knee effusion, left,Arthritis of left knee Given 10/14/2022 3:31 PM PAPER CONE DRYING MACHINE OPERATOR 40 mg Left Knee documented in this encounter Additional Health Concerns Assessment Noted Time PHQ-9 Depression Total Score: 1 09/29/19 22 10:03 AM PAPER CONE DRYING MACHINE OPERATOR documented as of this encounter Care Teams Construction Carpenters Helper Relationship Specialty Start Date End Date Soledad Lucas MD [address] [address] PCP - General INTERNAL MEDICINE 09/29/21 documented as of this encounter
--- OUTSIDE RECORDS SUMMARY | 2024-08-03 03:25 | XMS_ITS | Encounter Summary ---
Author Organization [facility] Address [address] [place] [address]. [address] [address] Care Team Providers Care Tool Maintenance Worker Name Role Phone Soledad Lucas MD Primary Care Provider [phone] Reason for Visit * Reason Comments ER F/U Pt went to the ER on Monday for wheezing. Pt went to [facility] Encounter Details Date Type Department Care Team (Latest Contact Info) Description 08/29/2022 10:20 AM DEHYDRATOR OPERATOR Office Visit [facility] Multispecialty Care - [place] [address] [address] [place] [address] Soledad Lucas MD [address] [place] [address] [address] [place] [address] ER F/U (Pt went to the ER on Monday for wheezing. Pt went to [facility] ER) Social History Tobacco Use Types Packs/Day Years [...] Coronavirus/COVID-19? No / Unsure 08/29/2022 10:33 AM DEHYDRATOR OPERATOR documented as of this encounter Last Filed Vital Signs Vital Sign Reading Time Taken Comments Blood Pressure 120/73 08/29/2022 10:50 AM DEHYDRATOR OPERATOR Pulse 88 08/29/2022 10:50 AM DEHYDRATOR OPERATOR Temperature 36.2 ??C (97.2 ??F) 08/29/2022 10:[address] Respiratory Rate 18 08/29/2022 10:50 AM DEHYDRATOR OPERATOR Oxygen Saturation 99% 08/29/2022 10:50 AM DEHYDRATOR OPERATOR Inhaled Oxygen Concentration - - Weight 106.6 kg (235 lb) 08/29/2022 10:50 AM DEHYDRATOR OPERATOR Height 185.4 cm (6' 1 ) 08/29/2022 10:50 AM DEHYDRATOR OPERATOR Body Mass Index 31 08/29/2022 10:50 AM DEHYDRATOR OPERATOR documented in this encounter Patient Instructions * Patient Instructions* Soledad Lucas MD - 08/29/2022 10:20 AM DEHYDRATOR OPERATOR Please picker box operator your prescription and use medications as directed including your inhalers. Stop taking aspirin 81 mg daily for now. DRATOR OPERATOR * Attachments The following attachments cannot be sent through Care Everywhere. * Asthma Discharge Instructions, Adult (Bahraini) documented in this encounter Progress Notes * Soledad Lucas MD - 08/29/2022 10:20 AM CSTSummary: ER follow up notes Images from the original note were not included. Internal Medicine Outpatient Progress Note CC: ER F/U (Pt went to the ER on Monday for wheezing. Pt went to [facility]) HPI: Juliet Stout is a 61-year-old male who presents for an ER visit for recent concerns about asthma exacerbation with recent visit to the emergency room. According to patient, his symptoms started about 1 week ago and patient went to [facility] emergency room to be evaluated. Symptoms started off initially with shortness of breath with minimal activity with the weather change. No fever orchills. Noticed some wheezing and coughing intermittently. Upon going to the emergency room, he hadflu and COVID test done which came back negative. He was prescribed steroids and has since completed. Still has ongoing wheezing and mild chest tightness and a cough that is nonproductive. Patient concerned and decided to report today. On further questioning, he has not picked up his Breo inhaler. He uses only his duo nebs and his albuterol inhaler. I called the pharmacy and verified cost of Breoand request comes up to about $10.35. Patient encouraged to picker box operator prescription. Problem List Patient Active Problem List Diagnosis [...] Outpatient Medications Marked as Taking for the 08/29/22 encounter (Office Visit) with Soledad Lucas MD [...] for four days. 6 tablet 0 ??? cyclobenzaprine (FLEXERIL) 10 MG tablet Take [...] Indications: Chronic Pain 30 tablet 0 ??? predniSONE (DELTASONE) 20 MG tablet Take 1 tablet (20 mg total) by mouth daily for 10 days. Start taking tonight 08/29/2022. 10 tablet 0 ??? vitamin D2, ergocalciferol, [address]6629 UNITS capsule Take 1 capsule (50,000 Units total) by mouth weekly. 12 capsule 1 Allergies: Allergies Allergen Reactions ??? Lisinopril Swelling Swollen lips Review of Systems Constitutional: Negative for chills, diaphoresis, fever, malaise/fatigue and weight loss. HENT: Negative. Eyes: Negative. Respiratory: Positive for cough, shortness of breath and wheezing. Negative for hemoptysis and sputum production. Cardiovascular: Negative for chest pain, palpitations, orthopnea, claudication, leg swelling and PND. Gastrointestinal: Negative. Genitourinary: Negative. Musculoskeletal: Negative. Neurological: Negative. Objective: Filed Vitals: 08/29/22 1050 BP: 120/73 Pulse: 88 Resp: 18 Temp: 97.2 ??F (36.2 ??C) TempSrc: Temporal SpO2: 99% Weight: 106.6 kg (235 lb) Height: 6' 1 (1.854 m) Body mass index is 31 kg/m??. General alert, cooperative, patient appears uncomfortable but not in distress. HEENT EOM's intact. Oral mucosa normal. Nasal septum is midline. Neck Supple, symmetrical, trachea midline, no adenopathy, no thyromegaly, no JVD. Lungs No acute respiratory distress, patient coughing intermittently. Decreased air entry bilaterally with wheezing but no rales or crackles. Heart Regular rate and regular rhythm. S1, [...] Encounter Diagnose(s) ICD-10-CM ICD-9-CM SNOMED CT(R) 1. Mild intermittent asthma with acute exacerbation J45.21 493.92 MILD INTERMITTENT ASTHMA azithromycin (ZITHROMAX Z-ABBE) 250 MG tablet methylPREDNISolone acetate (DEPO-Medrol) injection 40 mg predniSONE (DELTASONE) 20 MG tablet fluticasone furoate-vilanterol (BREO ELLIPTA) 200-25 MCG/ACT inhaler albuterol sulfate HFA 108 (90 Base) MCG/ACT inhaler ipratropium-albuterol (DUONEB) 0.5-2.5 (3) MG/3ML Solution 1. Mild intermittent asthma with acute exacerbation - azithromycin (ZITHROMAX Z-ABBE) 250 MG tablet; Take 2 tablets by mouth on day one then 1 daily forfour days. Dispense: 6 tablet; Refill: 0 - methylPREDNISolone acetate (DEPO-Medrol) injection 40 mg - predniSONE (DELTASONE) 20 MG tablet; Take 1 tablet (20 mg total) by mouth daily for 10 days. Start taking tonight 08/29/2022. Dispense: 10 tablet; Refill: 0 - fluticasone furoate-vilanterol (BREO ELLIPTA) 200-25 MCG/ACT inhaler; Inhale 1 puff into the lungs daily. Dispense: 60 each; Refill: 2 - albuterol sulfate HFA 108 (90 Base) MCG/ACT inhaler; Inhale 2 puffs into the lungs every 6 (six) hours as needed for Wheezing. Dispense: 18 g; Refill: 5 - ipratropium-albuterol (DUONEB) 0.5-2.5 (3) MG/3ML Solution; Take 3 mLs by nebulization every 6 (six) hours as needed. Dispense: 360 mL; Refill: 11 -Patient with ongoing wheezing and cough likely from his asthma due to medication noncompliance. Called pharmacy and verified and currently patient has not picked up his Breo. Cost is reasonable at this time. Patient notified to picker box operator Breo inhaler. Using technique discussed during this visit including compliance and rinsing mouth after each use of his Breo. Close follow-up if ongoing symptoms. His x-ray from recent ER visits according to patient was normal. Flu and COVID test were negative. No need to repeat testing at this time. Optimizing therapy. Compliance encouraged. Counseling given: Yes Tobacco comments: counsled by Dr Lucas I spent 30 [...] was at least in part performed using [employer] speak and there may be some inherent flaws in this prop drawer due to the nature of this program. Soledad Lucas MD Internal Medicine [facility], [facility]. DRATOR OPERATOR documented in this encounter Plan of Treatment Upcoming Encounters Date Type Department Care Team (Late st Contact Info) Description 08/19/2024 9:00 AM DEHYDRATOR OPERATOR Office Visit [facility] Multispecialty Care - [place] [address] [address] [place] [address] Soledad Lucas MD [address] [address] 12/16/2024 10:40 AM CDT Office Visit [facility] Mult[facility] Care - [facility] [address] [facility] [place] [address] Ramsey Oakley MD [address] [facility] [address] [place] [address] documented as of this encounter Visit Diagnoses Diagnosis Mild intermittent asthma with acute exacerbation (HHS/HCC)- Primary Unspecified asthma, with exacerbation documented in this encounter Administered Medications Inactive Administered Medications - up to 3 most recent administrations Medication Order MAR Action Action Date Dose Rate Site methylPREDNISolone acetate (DEPO-Medrol) injection 40 mg 40 mg, Intramuscular, Once, 1 dose, On 08/29/22 at 1130, Shake WellIndications:Mild intermittent asthma with acute exacerbation (HHS/HCC) Given 08/29/2022 11:11 AM DEHYDRATOR OPERATOR 40 mg Right Upper Outer Quadrant documented in this encounter Additional Health Concerns Assessment Noted Time PHQ-9 Depression Total Score: 1 09/29/19 10:03 AM DEHYDRATOR OPERATOR documented as of this encounter Care Teams Tool Maintenance Worker Relationship Specialty Start Date End Date Soledad Lcuas MD [address] [address] PCP - General INTERNAL MEDICINE 09/29/21 documented as of this encounter
--- OUTSIDE RECORDS SUMMARY | 2024-08-03 03:25 | XMS_ITS | Encounter Summary ---
Author Organization [facility] Address [address] [place] [address]. [place], [place] [address] [place] [address] Care Team Providers Care Metal Lather Name Role Phone Soledad Lucas MD Primary Care Provider [phone] Reason for Visit * Reason Comments Lab [...] Coronavirus/COVID-19? No / Unsure 08/05/2022 10:33 AM VOCATIONAL COORDINATOR documented as of this encounter Plan of Treatment Upcoming Encounters Date Type Department Care Team ( Contact Info) Description 08/19/2024 9:00 AM VOCATIONAL COORDINATOR Office Visit [facility] Multispecialty Care - [address] [place] [address] Soledad Lucas MD 1188 [facility] 157 [place] [address] 12/16/2024 10:40 AM CDT Office Visit [facility] Medical Group Multispecialty Care - [facility] 3 [facility] [address] [place] [address] Ramsey Oakley MD [address] [facility] [address] [place] [address] documented as of this encounter Procedures Procedure Name Priority Date/Time Associated Diagnosis Comments OUTSIDE LAB COVID-19 (SCAN ORDER) Routine 08/21/2022 documented in this encounter Results * OUTSIDE LAB COVID-19 (SCAN) (08/21/2022) CORONAVIRUS SARS COV 2 PCR (RESP) NOT DETECTED NOT DETECTED HS ONBASE 08/21/2022 [facility] Scanned SCANNING Final Resu lt [facility] ONBASE documented in this encounter Visit Diagnoses Not on filedocumented in this encounter Additional Health Concerns Assessment Noted Time PHQ-9 Depression Total Score: 1 09/29/19 10:03 AM VOCATIONAL COORDINATOR documented as of this encounter Care Teams Metal Lather Relationship Specialty Start Date End Date Soledad Lucas MD 1188 [facility] 157 [place] [address] PCP - General INTERNAL MEDICINE 09/29/21 documented as of this encounter
--- OUTSIDE RECORDS SUMMARY | 2024-08-03 03:25 | XMS_ITS | Encounter Summary ---
Author Organization [facility] Address [address] [place] [address]. [place], [place] [address] [place] [address] Care Team Providers Care Design Quality Engineer Name Role Phone Soledad Lucas MD Primary Care Provider [phone] Encounter Details Date Type Department Care Team (Latest Contact Info) Description 08/05/2022 Travel Social History Tobacco Use Types Packs/Day [...] Coronavirus/COVID-19? No / Unsure 08/05/2022 10:33 AM PELLETISING EXTRUDER OPERATOR documented as of this encounter Plan of Treatment Upcoming Encounters Date Type Department Care Team (Late st Contact Info) Description 08/19/2024 9:00 AM PELLETISING EXTRUDER OPERATOR Office Visit [facility] Medical [facility] Multispecialty Care - [place] [address] [address] [place] [address] Soledad Lucas MD [address] [place] [address] [address] [place] [address] 12/16/2024 10:40 AM CDT Office Visit [facility] Multispecialty Care - [facility] [address] [facility] [place] [address] Ramsey Oakley MD 3 [facility] [address] [place] [address] documented as of this encounter Visit Diagnoses Not on filedocumented in this encounter Additional Health Concerns Assessment Noted Time PHQ-9 Depression Total Score: 1 09/29/19 22 10:03 AM PELLETISING EXTRUDER OPERATOR documented as of this encounter Care Teams Design Quality Engineer Relationship Specialty Start Date End Date Soledad Lucas MD [address] [address] PCP - General INTERNAL MEDICINE 09/29/21 documented as of this encounter
--- OUTSIDE RECORDS SUMMARY | 2024-08-03 03:25 | XMS_ITS | Encounter Summary ---
Author Organization [facility] Address [address] [place] [address]. [place], [place] [address] [place] [address] Care Team Providers Care Integration Solution Architect Name Role Phone Soledad Lucas MD Primary Care Provider [phone] Encounter Details Date Type Department Care Team (Latest Contact Info) Description 08/05/2022 8:11 PM WOOD TILE INSTALLER - 08/05/2022 11:59 PM WOOD TILE INSTALLER Hospital Encounter [facility] [address] [place] [address] Soledad Lucas MD 1188 [facility] [address] [place] [address] Discharge Disposition: Home or Self Care [...] Coronavirus/COVID-19? No / Unsure 08/05/2022 10:33 AM WOOD TILE INSTALLER documented as of this encounter Medications at [...] needed. 360 mL 06/13/2022 3 losartan-hydroCHL OROthiazide (HYZAAR) 50-12.5 MG tabletIndications :Primary [...] 30 tablet 07/05/2022 3 vitamin D2, ergocalciferol, 16732 UNITS capsuleIndication s:Vitamin D deficiency Take 1 capsule (50,000 Units total) by mouth weekly. 12 capsule 1 09/29/2021 3 documented as of this encounter Plan of Treatment Upcoming Encounters Date Type Department Care Team (Late st Contact Info) Description 08/19/2024 9:00 AM WOOD TILE INSTALLER [facility] [address] [place] [address] Soledad Lucas MD [address] [place] [address] 157 [place] [address] 12/16/2024 10:40 AM CDT [facility] - [facility] 3 [facility] [place] [phone] Ramsey Oakley MD 3 [facility] [address] [place] [address] documented as of this encounter Procedures Procedure Name Priority Date/Time Associated Diagnosis Comments CULTURE, ROUTINE W/ GRAM STAIN Routine 08/05/2022 8:13 PM WOOD TILE INSTALLER CELL COUNT W/ DIFF BODY FLUID Routine 08/05/2022 12:01 PM WOOD TILE INSTALLER documented in this encounter Results * CULTURE, ROUTINE W/ GRAM STAIN (AEROBIC) (08/05/2022 8:13 PM WOOD TILE INSTALLER) SPEC DESCRIPTION KNEE,LEFT 08/05/2022 8:13 PM WOOD TILE INSTALLER [facility] SPECIAL REQUESTS NO SPECIAL REQUEST 08/05/2022 8:13 PM WOOD TILE INSTALLER [facility] GRAM STAIN RESULT MODERATE NEUTROPHILS SEEN 08/05/2022 9:52 PM WOOD TILE INSTALLER [facility] GRAM STAIN RESULT NO ORGANISMS SEEN 08/05/2022 9:52 PM WOOD TILE INSTALLER [facility] CULTURE RESULT NO GROWTH 5 DAYS 08/11/2022 11:38 AM WOOD TILE INSTALLER [facility] STRUCTURE OF LEFT KNEE REGION / Unknown 08/05/2022 8:13 PM WOOD TILE INSTALLER 08/05/2022 9:20 PM WOOD TILE INSTALLER us Soledad Lucas MD MICROBIOLOGY - GENERAL ORDERABLE S Final Result Performing Organization Address City/State/RUST Co de Phone Number [facility] [address] [place] [address], [place] [phone] * CELL COUNT W/ DIFF BODY FLUID (08/05/2022 12:01 PM WOOD TILE INSTALLER) SOURCE (FLUID) LT KNEE 08/05/2022 9:37 PM WOOD TILE INSTALLER [facility] WBC (FLUID) 0.114 x10'3/uL 08/05/2022 9:37 PM WOOD TILE INSTALLER [facility] Comment:REFERENCE RANGE NOT ESTABLISHED RBC (FLUID) <0.001 x10'6/uL 08/05/2022 9:37 PM WOOD TILE INSTALLER [facility] Comment:REFERENCE RANGE NOT ESTABLISHED DIFFERENTIAL MANUAL DIFFERENTIAL PERFORMED ON CONCENTRATED CYTOSPIN 08/05/2022 8:13 PM [facility] CELLS COUNTED 100 No COUNTED 08/06/2022 12:09 AM WOOD TILE INSTALLER [facility] SEGS (FLUID) 2 % 08/05/2022 11:41 PM [facility] LYMPHS (FLUID) 8 % 08/05/2022 11:41 PM WOOD TILE INSTALLER [facility] OTHER MONONUCLEAR CELLS (FLD) 90 % 08/05/2022 11:41 PM WOOD TILE INSTALLER [facility] STRUCTURE OF LEFT KNEE REGION / Unknown 08/05/2022 12:01 PM WOOD TILE INSTALLER Soledad Lucas MD BODY FLUIDS AND STOOLS ORDERABLE S Final Result [facility] [address] [place] [address], [id number] documented in this encounter Visit Diagnoses Not on filedocumented in this encounter Additional Health Concerns Assessment Noted Time PHQ-9 Depression Total Score: 1 09/29/19 22 10:03 AM WOOD TILE INSTALLER documented as of this encounter Care Teams Integration Solution Architect Relationship Specialty Start Date End Date Soledad Lucas MD 1188 [facility] [address] [place] [address] PCP - General INTERNAL MEDICINE 09/29/21 documented as of this encounter
--- OUTSIDE RECORDS SUMMARY | 2024-08-03 03:25 | XMS_ITS | Encounter Summary ---
Author Organization [facility] Address [address] [place] [address]. [place], [place] [address] [place] [address] Care Team Providers Care Seamer Operator Name Role Phone Soledad Lucas MD Primary Care Provider [phone] Reason for Visit * Reason Onset Date Comments Called To Cancel Office Appt. 05/16/2022 Encounter Details Date Type Department Care Team (Late st Contact Info) Description 05/16/2022 Telephone [facility] [address] [place] [address] Rene Segura, PT [place], [place] [phone] Called To Cancel Office Appt. Social History [...] suspected to have Coronavirus/COVID-19? No / Unsure 05/13/2022 9:55 AM CDT documented as of this encounter Plan of Treatment Upcoming Encounters Date Type Department Care Team (Late st Contact Info) Description 08/19/2024 9:00 AM RECRUITING INTERN Office Visit [facility] Multispecialty Care - [place] [address] [address] [place] [address] Soledad Lucas MD 1188 [facility] 157 [place] [address] 12/16/2024 10:40 AM CDT Office Visit [facility] Multispecialty [facility] 3 [facility] [place] [address] Ramsey Oakley MD 3 [facility] [address] [place] [address] documented as of this encounter Visit Diagnoses Not on filedocumented in this encounter Additional Health Concerns Assessment Noted Time PHQ-9 Depression Total Score: 1 09/29/19 10:03 AM RECRUITING INTERN documented as of this encounter Care Teams Seamer Operator Relationship Specialty Start Date End Date Soledad Lucas MD 1188 [facility] 157 [place] [address] PCP - General INTERNAL MEDICINE 09/29/21 documented as of this encounter
--- OUTSIDE RECORDS SUMMARY | 2024-08-03 03:25 | XMS_ITS | Encounter Summary ---
Author Organization [facility] Address [address] [place] [address]. [place] [id number] Care Team Providers Care Primary Clinician Name Role Phone Soledad Lucas MD Primary Care Provider [phone] Reason for Visit * Reason Comments Back Pain * Physical Medicine (Routine) - Closed Specialty Diagnoses / Procedures Referred By Prasanth santillan Referred To Contact PHYSICAL THERAPY / [facility] Physical Therapy Diagnoses Disc disease, degenerative, lumbar or lumbosacral Chronic bilateral low back pain with left-sided sciatica Procedures OFFICE/OUTPT VISIT,NEW,LEVL III OFFICE/OUTPT VISIT,NEW,LEVL IV OFFICE/OUTPT VISIT,NEW,LEVL V OFFICE/OUTPT VISIT,EST,LEVL III OFFICE/OUTPT VISIT,EST,LEVL IV OFFICE/OUTPT VISIT,EST,LEVL V Soledad Lucas MD 1188 [facility] [address] [place] [address] Phone: tel: fax: [facility] [address] [place] [address] Phone: tel: fax: Referral ID Status Reason Start Date Expiration Date V isits Requested Visits Authorized [id number] Closed Physical Therapy 04/06/2022 05/06/2023 10 10 Encounter Details Date Type Department Care Team (Late st Contact Info) Description 05/18/2022 4:00 PM CDT [facility] [address] [place] [address] Soledad Lucas MD 118[address] [facility] [address] [place] [address] Nelda Knox PTA Back Pain Social History [...] Progress Notes * Nelda Knox PTA - 05/18/2022 4:00 PM CDT Physical Therapy Visit Note: Patient Name: Juliet Stout Diagnosis: Degenerative disc disease, lumbar (primary encounter diagnosis) Decreased rom of trunk and back Chronic bilateral low back pain with left-sided sciatica Personal Protective Equipment PPE Used During Visit: Therapist wore medical grade mask throughout session, Patient wore mask throughout session SUBJECTIVE Therapy Visit Treatment Day: 3 Total Approved Visits: 12 Authorization Expiration Date: progress note Therapy Plan of Care: 2x/week Current Therapy Orders: eval and treat Diagnosis: chronic LBP with left sciatica Referring Provider: Lance Sanders MD Visit: prn Precautions: HTN Restrictions: none Date of Injury: chronic Date of Surgery/Weeks Post-Op: NA Workers Compensation Injury: No 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 His back is very stiff in the mornings. He takes his medicine and does the exercises which help. Response to prior treatment: Good Compliance to Home Program: Yes Functional changes since last visit: Nothing to report Reported Falls since last visit: no Medications changes since last visit : no changes Pain Current Location of Pain: Low back Current Pain Level: 4-5/10 OBJECTIVE Treatment provided today: Therapeutic Exercise - 70635 Number of Minutes - 54480: 28 Exercise: Quadruped rock back x10 with 10 second hold Exercise: Quadraped thread the needle x10 each Exercise: Seated trunk flexion 3 directions with green ball x10 each Exercise: Staggered stance paloff press with 10# x10 each position Exercise: Hip matrix with foot ER x5 each Exercise: TRX trunk flexion stretch 3x20 seconds Exercise: Standing lumbar extension at wall for mobility x 10 reps Manual Therapy - 45043 Number of Minutes - 16771: 15 Intervention: Prone PA glides L1-5 Intervention: Prone sacral inferior and lateral glides to improve mobility and promote relaxation Intervention: Supine flexion rotation stretching bilaterally Education Was Education Provided: Yes Topic: Informed patient he may have increased soreness from sacral glides being performed and having minimal mobility in this area. Recipient: Patient Method: Verbal Response: Verbalized understanding ASSESSMENT Assessment Note: We continued with manual interventions at start of session to increase mobility and flexibility to further gain active motion. Palpation during manual revealed moderate to signifcant restriction within the lower lumbar vertebrae and significant restriction inferiorly at the sacrum which couldbe causing his morning discomfort. After manual, patient was sore on the R sacral region into the glute. This gradually improved during active exercises. Cueing needed for correct form with postural exercises. Response to Treatment : Mild soreness in R sacral region. Informed patient to apply ice or heat forpain and perform 1 round of HEP stretches. PLAN Plan Next Visit Plan: Continue with manual to improve mobility and decrease pain. Progress stretching and core strengthening exercises. Total Time Total Time in Minutes: 43 Timed Code Treatment Minutes : 43 documented in this encounter Plan of Treatment Upcoming Encounters Date Type Department Care Team (Late st Contact Info) Description 08/19/2024 9:00 AM DIGITAL MARKETING APPRENTICE Office Visit [facility] Medical Group Multispecialty Care - [address] [place] [address] Soledad Lucas MD 1188 [facility] 157 [place] [address] 12/16/2024 10:40 AM CDT Office Visit [facility] Multispecialty Care - [facility] 3 [facility] [address] [place] [address] Ramsey Oakley MD [address] [facility] [address] [place] [address] documented as of this encounter Visit Diagnoses Diagnosis Degenerative disc disease, lumbar- Primary Degeneration of lumbar or lumbosacral intervertebral disc Decreased ROM of trunk and back Chronic bilateral low back pain with left-sided sciatica documented in this encounter Additional Health Concerns Assessment Noted Time PHQ-9 Depression Total Score: 1 09/29/19 10:03 AM DIGITAL MARKETING APPRENTICE documented as of this encounter Care Teams Primary Clinician Relationship Specialty Start Date End Date Soledad Lucas MD [address] [address] PCP - General INTERNAL MEDICINE 09/29/21 documented as of this encounter
--- OUTSIDE RECORDS SUMMARY | 2024-08-03 03:25 | XMS_ITS | Encounter Summary ---
Author Organization [facility] Address [address] [place] [address]. [place] [address] Care Team Providers Care Linesperson Name Role Phone Soledad Lucas MD Primary Care Provider [phone] Reason for Referral * Consultation (Urgent) - Closed Specialty Diagnoses / Procedures Referred By Prasanth santillan Referred To Contact ORTHOPAEDIC SURGERY Diagnoses Primary osteoarthritis of right knee Primary osteoarthritis of left knee Procedures OFFICE/OUTPT VISIT,NEW,LEVL III OFFICE/OUTPT VISIT,NEW,LEVL IV OFFICE/OUTPT VISIT,NEW,LEVL V OFFICE/OUTPT VISIT,EST,LEVL III OFFICE/OUTPT VISIT,EST,LEVL IV OFFICE/OUTPT VISIT,EST,LEVL V Soledad Lucas MD 1188 [facility] 157 [place] [address] Phone: tel: fax: Scott Fletcher MD 75[address] [facility] [address] [place] [address] Phone: tel: fax: Referral ID Status Reason Start Date Expiration Date V isits Requested Visits Authorized [id number] Closed Specialty Services 11/21/2022 11/22/2023 99 99 Scheduling Instructions Please send to Dr. Fletcher for his left knee replacement ?? [phone] Reason for Visit * Reason Onset Date Comments Referral 11/21/2022 Encounter Details Date Type Department Care Team (Late st Contact Info) Description 11/21/2022 [facility]phone [facility] - [address] [place] [address] Soledad Lucas MD [address] [address] Referral Social History Tobacco Use Types Packs/Day [...] Progress Notes * Soledad Lucas MD - 11/21/2022 5:20 PM CDT Referral to orthopedics placed: Dr. Fletcher for his left knee replacement ?? [phone] * Eugenie Ramirez MA - 11/21/2022 9:41 AM CDT Pt is requesting referral to Dr. Fletcher for his left knee replacement [phone] documented in this encounter Plan of Treatment Upcoming Encounters Date Type Department Care Team (Late st Contact Info) Description 08/19/2024 9:00 AM REGISTERED MASSAGE THERAPIST [facility] - [place] [address] [address] [place] [address] Soledad Lucas MD [address] [address] 12/16/2024 10:40 AM CDT Office Visit [facility] Multispecialty Care - [facility] 3 [facility] [place] [address] Ramsey aOkley MD 3 [facility] [address] [place] [address] Scheduled Referrals Name Type Priority Associated Diagnoses Orde r Schedule Ambulatory referral to Orthopedics (OTHER) Referral Routine Primary osteoarthritis of right knee Primary osteoarthritis of left knee Ordered: 11/21/2022 documented as of this encounter Visit Diagnoses Diagnosis Primary osteoarthritis of right knee- Primary Primary localized osteoarthrosis, lower leg Primary osteoarthritis of left knee Primary localized osteoarthrosis, lower leg documented in this encounter Additional Health Concerns Assessment Noted Time PHQ-9 Depression Total Score: 1 09/29/19 22 10:03 AM REGISTERED MASSAGE THERAPIST documented as of this encounter Care Teams Linesperson Relationship Specialty Start Date End Date Soledad Lucas MD [address] [address] PCP - General INTERNAL MEDICINE 09/29/21 documented as of this encounter
--- OUTSIDE RECORDS SUMMARY | 2024-08-03 03:25 | XMS_ITS | Encounter Summary ---
Author Organization [facility] Address [address] [place] [address]. [place], [place] [address] [place] [address] Care Team Providers Care Truck Unloader Name Role Phone Soledad Lucas MD Primary Care Provider [phone] Reason for Visit * Reason Onset Date Comments Quality Gap Closure 10/18/2022 Encounter Details Date Type Department Care Team (Latest Contact Info) Description 10/18/2022 Patient Outreach [facility] Medical Group Multispecialty Care - [address] [place] [address] Rayna Velasquez MA Quality Gap Closure Social History Tobacco Use Types [...] Coronavirus/COVID-19? No / Unsure 10/14/2022 1:36 PM HOUSE PAINTER documented as of this encounter Progress Notes * Rayna Velasquez MA - 10/18/2022 4:06 PM CDT I am a patient quality advocate calling this patient on behalf of the virtual stand work team to assess the below quality gaps. If you need to contact me directly- my number is [phone]. Preventive Screenings: Breast Cancer Screening: N/A Notes: NA Colorectal Cancer Screening: Up to Date Notes: UTD Diabetic Eye Exam: N/A Notes: NA Falls Risk Screening: N/A Notes: NA Tobacco Cessation: N/A Notes: NA Labs: BMP/CMP: N/A Notes: NA Hemoglobin A1c: N/A Notes: NA Lipid: N/A Notes: NA Urine Albumin-Creatinine Ratio: N/A Notes: NA Immunizations: Influenza: Patient Declined Notes: Declined Shingles: Patient Declined Notes: Declined documented in this encounter Plan of Treatment Upcoming Encounters Date Type Department Care Team (Late st Contact Info) Description 08/19/2024 9:00 AM HOUSE PAINTER Office Visit [facility] Multispecialty Care - [address] [place] [address] Soledad Lucas MD [address] [place] [address] [address] [place] [address] 12/16/2024 10:40 AM CDT [facility] 3 [facility] [place] [address] Ramsey Oakley MD 3 [facility] [address] [place] [address] documented as of this encounter Visit Diagnoses Not on filedocumented in this encounter Additional Health Concerns Assessment Noted Time PHQ-9 Depression Total Score: 1 09/29/19 22 10:03 AM HOUSE PAINTER documented as of this encounter Care Teams Truck Unloader Relationship Specialty Start Date End Date Soledad Lucas MD [address] [place] [address] [address] [place] [address] PCP - General INTERNAL MEDICINE 09/29/21 documented as of this encounter
--- OUTSIDE RECORDS SUMMARY | 2024-08-03 03:25 | XMS_ITS | Encounter Summary ---
Author Organization [facility] Address [address] [place] [address]. [place], [place] [address] [place] [address] Care Team Providers Care Petroleum Plant Operator Name Role Phone Soledad Lucas MD Primary Care Provider Encounter Details Date Type Department Care Team (Latest Contact Info) Description 06/13/2022 - 06/13/2022 11:59 PM PHYSICIAN LIAISON Hospital Encounter [facility] [address] [place] [address] Soledad Lucas MD [address] [address] Discharge Disposition: Home or Self [...] Coronavirus/COVID-19? No / Unsure 06/13/2022 1:43 PM PHYSICIAN LIAISON documented as of this encounter Medications at [...] at bedtime. 90 tablet 2 10/13/2021 3 azithromycin (ZITHROMAX Z-ABBE) 250 MG tabletIndications :Moderate persistent asthma with acute exacerbation (HHS/HCC) Take 2 tablets by mouth on day one then 1 daily for four days. 6 tablet 06/13/2022 2 fluticasone furoate-vilantero l (BREO ELLIPTA) 200-25 [...] with breakfast. 60 tablet 3 01/07/2022 3 methocarbamol (ROBAXIN) 500 MG tabletIndications :Chronic right-sided low back pain without sciatica Take 1 tablet (500 mg total) by mouth 3 (three) times daily. 60 tablet 05/03/2022 2 omeprazole (PRILOSEC) 40 MG capsuleIndication s:Gastroesophagea l reflux disease without esophagitis TAKE 1 CAPSULE(40 MG) BY MOUTH DAILY 30 capsule 04/19/2022 3 oxyCODONE-acetami nophen (PERCOCET) 7.5-325 MG tabletIndications :Chronic Pain Take 1 tablet by mouth daily as needed for Pain. Indications: Chronic Pain 30 tablet 05/30/2022 2 predniSONE (DELTASONE) 10 mg tabletIndications :Moderate persistent asthma with acute exacerbation ([facility]) 40 mg daily for 5 days then 30 mg daily for 3 days then 20 mg daily for 3 days then 10 mg daily 5 days then stop. 40 tablet 06/14/2022 2 vitamin D2, ergocalciferol, 84503 UNITS capsuleIndication s:Vitamin D deficiency Take 1 capsule (50,000 Units total) by mouth weekly. 12 capsule 1 09/29/2021 3 documented as of this encounter Plan of Treatment Upcoming Encounters Date Type Department Care Team (Late st Contact Info) Description 08/19/2024 9:00 AM PHYSICIAN LIAISON Office Visit [facility] Multispecialty Care - [address] [place] [address] Soledad Lucas MD [address] [place] [address] 12/16/2024 10:40 AM CDT Office Visit [facility] Multispecialty [facility] 3 [facility], [address] [place] [address] Ramsey Oakley MD 3 [facility] [address] [place] [address] documented as of this encounter Visit Diagnoses Not on filedocumented in this encounter Additional Health Concerns Infection Onset Date Last Indicated Resolved Time COVID-19 Rule Out 06/13/2022 06/13/2022 06/13/2022 2:50 PM PHYSICIAN LIAISON COVID-19 Rule Out 06/13/2022 06/13/2022 06/14/2022 1:24 PM PHYSICIAN LIAISON Assessment Noted Time PHQ-9 Depression Total Score: 1 09/29/19 10:03 AM PHYSICIAN LIAISON documented as of this encounter Care Teams Petroleum Plant Operator Relationship Specialty Start Date End Date Soledad Lucas MD [address] [address] PCP - General INTERNAL MEDICINE 09/29/21 documented as of this encounter
--- OUTSIDE RECORDS SUMMARY | 2024-08-03 03:25 | XMS_ITS | Encounter Summary ---
Author Organization [facility] Address [address] [place] [address]. [address] [address] Care Team Providers Care Licensed Occupational Therapy Assistant Name Role Phone Soledad Lucas MD Primary Care Provider [phone] Reason for Visit * Reason Onset Date Comments Refill Request 08/17/2022 Encounter Details Date Type Department Care Team (Late st Contact Info) Description 08/17/2022 Telephone [facility] Multispecialty Care - [place] [address] [address] [place] [address] Soledad Lucas MD [address] [place] [address] [address] [place] [address] Refill Request Social History Tobacco [...] Coronavirus/COVID-19? No / Unsure 08/05/2022 10:33 AM POSTDOCTORAL SCIENTIST documented as of this encounter Progress Notes * Soledad Lucas MD - 08/17/2022 8:09 PM CST Arley Mendoza sent. DOCTORAL SCIENTIST * Eugenie Ramirez MA - 08/17/2022 9:05 AM CST Pt called requesting another script for the Arley Mendoza Last refill 07/06/22 Next appt 10/03/22 DOCTORAL SCIENTIST documented in this encounter Plan of Treatment Upcoming Encounters Date Type Department Care Team (Late st Contact Info) Description 08/19/2024 9:00 AM POSTDOCTORAL SCIENTIST [facility] [place] [address] [address] [place] [address] Soledad Lucas MD [address] [address] 12/16/2024 10:40 AM CDT [facility] 3 [facility], [address] [place] [address] Ramsey Oakley MD 3 [facility] [address] [place] [address] documented as of this encounter Visit Diagnoses Diagnosis Cough, unspecified type- Primary documented in this encounter Additional Health Concerns Assessment Noted Time PHQ-9 Depression Total Score: 1 09/29/19 10:03 AM POSTDOCTORAL SCIENTIST documented as of this encounter Care Teams Licensed Occupational Therapy Assistant Relationship Specialty [place] [address] [place] [address] PCP - General INTERNAL MEDICINE 09/29/21 documented as of this encounter
--- OUTSIDE RECORDS SUMMARY | 2024-08-03 03:26 | XMS_ITS | Encounter Summary ---
Author Organization [facility] Address [address] [place] [address]. [address] [address] Care Team Providers Care Private Investigator Surveillance Name Role Phone Soledad Lucas MD Primary Care Provider [phone] Reason for Visit * Reason Onset Date Comments Reschedule 03/16/2022 Encounter Details Date Type Department Care Team (Late st Contact Info) Description 03/16/2022 Telephone [facility] Multispecialty Care - [place] [address] [address] [place] [address] Soledad Lucas MD [address] [place] [address] [address] [place], [place] [id number] Reschedule Social History Tobacco Use Types Packs/Day Years [...] suspected to have Coronavirus/COVID-19? No / Unsure 03/02/2022 8:48 AM CDT documented as of this encounter Progress Notes * Stewart Hollis Mariah - 03/16/2022 8:12 AM CDT Patient called and rescheduled appointment for 03/18/22 @ 2:50pm. I notified patient that moving forward, we need 24hr notice for cancelled or rescheduled appointment. documented in this encounter Plan of Treatment Upcoming Encounters Date Type Department Care Team (Late st Contact Info) Description 08/19/2024 9:00 AM CHRISTIAN EDUCATION DIRECTOR [facility] - [place] [address] [address] [place] [address] [place] [address] [place] [address] 12/16/2024 10:40 AM CDT [facility] 3 [facility] [address] [place] [address] Ramsey Oakley MD 3 [facility] [address] [place] [address] documented as of this encounter Visit Diagnoses Not on filedocumented in this encounter Additional Health Concerns Assessment Noted Time PHQ-9 Depression Total Score: 1 09/29/19 22 10:03 AM CHRISTIAN EDUCATION DIRECTOR documented as of this encounter Care Teams Private Investigator Surveillance Relationship Specialty Start Date End Date Soledad Lucas MD 118[address] [facility] [address] [place] [address] PCP - General INTERNAL MEDICINE 09/29/21 documented as of this encounter
--- OUTSIDE RECORDS SUMMARY | 2024-08-03 03:26 | XMS_ITS | Encounter Summary ---
Author Organization [facility] Address [address] [place] [address]. [address] [address] Care Team Providers Care Maxillofacial Surgeon Name Role Phone Soledad Lucas MD Primary Care Provider [phone] Reason for Referral * Imaging (Routine) - Closed Specialty Diagnoses / Procedures Referred By Prasanth santillan Referred To Contact RADIOLOGY Diagnoses Disc disease, degenerative, lumbar or lumbosacral Chronic bilateral low back pain with left-sided sciatica Procedures MRI LUMB SPINE WO CON Soledad Lucas MD [address] [address] Phone: tel: fax: Referral ID Status Reason Start Date Expiration Date Visits Re quested Visits Authorized [id number] Closed 04/21/2022 04/21/2023 1 1 * Physical Medicine (Routine) - Closed Specialty Diagnoses / Procedures Referred By Prasanth santillan Referred To Contact PHYSICAL THERAPY / [facility] Physical Therapy Diagnoses Disc disease, degenerative, lumbar or lumbosacral Chronic bilateral low back pain with left-sided sciatica Procedures OFFICE/OUTPT VISIT,NEW,LEVL III OFFICE/OUTPT VISIT,NEW,LEVL IV OFFICE/OUTPT VISIT,NEW,LEVL V OFFICE/OUTPT VISIT,EST,LEVL III OFFICE/OUTPT VISIT,EST,LEVL IV OFFICE/OUTPT VISIT,EST,LEVL V Soledad Lucas MD [address] [address] Phone: tel: fax: [facility] Physical Therapy [address] [place] [address] Phone: tel: fax: Referral ID Status Reason Start Date Expiration Date V isits Requested Visits Authorized [id number] Closed Physical Therapy 04/06/2022 05/06/2023 10 10 Scheduling Instructions [place] location please. Reason for Visit * Reason Onset Date Comments Follow Up Call 04/05/2022 Encounter Details Date Type Department Care Team (Late st Contact Info) Description 04/05/2022 Telephone [facility] Multispecialty Care - [place] [address] [address] [place] [address] Soledad Lucas MD [address] [address] Follow Up Call Social History Tobacco Use [...] suspected to have Coronavirus/COVID-19? No / Unsure 04/15/2022 9:31 AM CDT documented as of this encounter Progress Notes * Soledad Lucas MD - 04/21/2022 1:38 PM CDTAddended by: SOLEDAD LUCAS on: 04/21/2022 01:38 PM Modules accepted: Orders * Soledad Lucas MD - 04/06/2022 8:32 AM CDT I called and spoke with patient about results of his x-ray of the lumbar spine done on 04/05/2022. Reports shows multilevel degenerative disc disease most severe at L5-S1. Degenerative changes at apophyseal joints with associated minimal grade 1 of 3 pieces at L4-L5. Placing order for MRI of the lumbar spine. Placing order for physical therapy. Patient aware of these 2 orders placed. 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 Patient encouraged to take all medications as directed. All questions answered. Soledad Lucas MD Internal Medicine [facility]. documented in this encounter Plan of Treatment Upcoming Encounters Date Type Department Care Team (Late st Contact Info) Description 08/19/2024 9:00 AM SOAKER MEAT [facility] - [address] [place] [address] Soledad Lucas MD [address] [place] [address] 157 [place] [address] 12/16/2024 10:40 AM CDT [facility] 3 [facility] [address] [place] [address] Ramsey Oakley MD 3 [facility] [address] [place] [address] Scheduled Referrals Name Type Priority Associated Diagnoses Orde r Schedule Ambulatory referral to Physical Therapy Referral Routine Disc disease, degenerative, lumbar or lumbosacral Chronic bilateral low back pain with left-sided sciatica Ordered: 04/06/2022 documented as of this encounter Results * MRI LUMB SPINE WO CON (05/10/2022 12:52 PM CDT) Anatomical Region Laterality Modality Spine Magnetic Resonan ce 05/10/2022 5:49 PM CDT Impressions 05/10/2022 5:54 PM CDT =====IMPRESSION:===== 1. No acute bony abnormalities. Multilevel degenerative changes including facet disease worse in the mid and lower lumbar levels especially L4-5 and L5/S1. 2. Degenerative endplate signal changes especially L5-S1 interspace which is markedly narrowed and shows diffuse at least moderate disc bulge and posterolateral spurs with significant stenosis of the neural foramen and mild narrowing of the lateral recesses. Foraminal stenosis at this level is worse on the left. 3. At other levels at least moderate disc bulges starting at T12-L1 with more pronounced disc abnormalities at L2-3, L3-4 and L4-5 as described. 4. Multilevel narrowing of the central canal and the lateral recesses and multilevel foraminal stenosis of moderate degree throughout the lumbar spine.. Ordered By: SOLEDAD LUCAS Interpreted By: Daquan Segura MD, 05/10/2022 5:49 PM Narrative 05/10/2022 5:54 PM CDT EXAMINATION: MRI lumbar spine without contrast EXAM DATE/TIME: 05/10/2022 12:26 PM REASON FOR EXAM: ??See Comments to the Radiologist. Patient has chronic low back pain radiating to the buttocks. ?? COMPARISON: No previous MRI lumbar spine. Patient had radiographs lumbar spine in 2008. TECHNIQUE: Mutiplanar, multisequence MRI of the lumbar spine was obtained without the use of an IV contrast agent. FINDINGS: The height of the lumbar vertebra are well-maintained. There are prominent signal changes at the interspace L5/S1 and the endplates of degenerative basis. No pars defects. Mild scoliosis. In the lower thoracic levels degenerative changes with mild to moderate diffuse bulge at T12-L1 and mild narrowing of the central canal with mild facet disease. Mild narrowing of the right neural foramen. Degenerative signal changes in the upper endplate L1 vertebra anteriorly. L1-L2: Mild degenerative changes with mild to moderate facet hypertrophy and diffuse disc bulge with mild to moderate narrowing of the neural foramen due to posterolateral disc bulges and small protrusions. L2-3: Moderate thickening of the ligaments and the facets with moderate diffuse bulge. Moderate narrowing of the central canal and the lateral recesses as seen on axial image 15 and moderate narrowing of the neural foramen on both sides. L3-4: Mild to moderate hypertrophy of the posterior elements. There is mild diffuse disc bulge more pronounced along the left posterolateral aspect of the interspace with at least moderate narrowing of the left neural foramen and mild narrowing of the left lateral recess and the central canal. L4-5: More pronounced disc abnormalities with degenerative changes associated with moderate broad-based disc protrusion at the center and right to the midline with mild to moderate stenosis of the right lateral recess and the central canal and at least moderate narrowing of the neural foramen on both sides. Moderate facet disease worse on the right. L5/S1: Prominent degenerative changes. Narrowing of the interspace and diffuse prominent bulge with endplate hypertrophy and spurs with moderate to severe foraminal stenosis worse on the left. There is also mild narrowing of the lateral recesses and moderate facet disease. Within the dural sac no abnormal signal. The distal spinal cord unremarkable. The visualized paraspinal soft tissues show no acute findings. Somewhat limited signal and detail due to large body habitus of the patient. Procedure Note Daquan Segura MD - 05/10/2022 EXAMINATION: MRI lumbar spine without contrast EXAM DATE/TIME: 05/10/2022 12:26 PM REASON FOR EXAM: See Comments to the Radiologist. Patient has chronic lowback pain radiating to the buttocks. COMPARISON: No previous MRI lumbar spine. Patient had radiographs lumbarspine in 2008. TECHNIQUE: Mutiplanar, multisequence MRI of the lumbar spine was obtainedwithout the use of an IV contrast agent. FINDINGS: The height of the lumbar vertebra are well-maintained. There areprominent signal changes at the interspace L5/S1 and the endplates ofdegenerative basis. No pars defects. Mild scoliosis. In the lower thoracic levels degenerative changes with mild to moderatediffuse bulge at T12-L1 and mild narrowing of the central canal with mildfacet disease. Mild narrowing of the right neural foramen. Degenerativesignal changes in the upper endplate L1 vertebra anteriorly. L1-L2: Mild degenerative changes with mild to moderate facet hypertrophyand diffuse disc bulge with mild to moderate narrowing of the neuralforamen due to posterolateral disc bulges and small protrusions. L2-3: Moderate thickening of the ligaments and the facets with moderatediffuse bulge. Moderate narrowing of the central canal and the lateralrecesses as seen on axial image 15 and moderate narrowing of the neuralforamen on both sides. L3-4: Mild to moderate hypertrophy of the posterior elements. There ismild diffuse disc bulge more pronounced along the left posterolateralaspect of the interspace with at least moderate narrowing of the leftneural foramen and mild narrowing of the left lateral recess and thecentral canal. L4-5: More pronounced disc abnormalities with degenerative changesassociated with moderate broad-based disc protrusion at the center andright to the midline with mild to moderate stenosis of the right lateralrecess and the central canal and at least moderate narrowing of the neuralforamen on both sides. Moderate facet disease worse on the right. L5/S1: Prominent degenerative changes. Narrowing of the interspace anddiffuse prominent bulge with endplate hypertrophy and spurs with moderateto severe foraminal stenosis worse on the left. There is also mildnarrowing of the lateral recesses and moderate facet disease. Within the dural sac no abnormal signal. The distal spinal cordunremarkable. The visualized paraspinal soft tissues show no acutefindings. Somewhat limited signal and detail due to large body habitus of thepatient. =====IMPRESSION:===== 1. No acute bony abnormalities. Multilevel degenerative changes includingfacet disease worse in the mid and lower lumbar levels especially L4-5 andL5/S1. 2. Degenerative endplate signal changes especially L5-S1 interspace whichis markedly narrowed and shows diffuse at least moderate disc bulge andposterolateral spurs with significant stenosis of the neural foramen andmild narrowing of the lateral recesses. Foraminal stenosis at this levelis worse on the left. 3. At other levels at least moderate disc bulges starting at T12-L1 withmore pronounced disc abnormalities at L2-3, L3-4 and L4-5 as described. 4. Multilevel narrowing of the central canal and the lateral recesses andmultilevel foraminal stenosis of moderate degree throughout the lumbarspine.. Ordered By: SOLEDAD LUCAS Interpreted By: Daquan Segura MD, 05/10/2022 5:49 PM Soledad Lucas MD MRI Final Result documented in this encounter Visit Diagnoses Diagnosis Disc disease, degenerative, lumbar or lumbosacral- Primary Degeneration of lumbar or lumbosacral intervertebral disc Chronic bilateral low back pain with left-sided sciatica documented in this encounter Additional Health Concerns Assessment Noted Time PHQ-9 Depression Total Score: 1 09/29/19 22 10:03 AM SOAKER MEAT documented as of this encounter Care Teams Maxillofacial Surgeon Relationship Specialty Start Date End Date Soledad Lucas MD [address] [address] PCP - General INTERNAL MEDICINE 09/29/21 documented as of this encounter
--- OUTSIDE RECORDS SUMMARY | 2024-08-03 03:26 | XMS_ITS | Encounter Summary ---
Author Organization [facility] Address [address] [place] [address]. [address] [address] Care Team Providers Care Percher Name Role Phone Soledad Lucas MD Primary Care Provider [phone] Reason for Visit * Reason Onset Date Comments Question 04/04/2022 Encounter Details Date Type Department Care Team (Late st Contact Info) Description 04/04/2022 Telephone [facility] Multispecialty Care - [place] [address] [address] [place] [address] Soledad Lucas MD [address] [place] [address] [address] [place] [address] Question Social History Tobacco Use [...] suspected to have Coronavirus/COVID-19? No / Unsure 03/25/2022 2:42 PM CDT documented as of this encounter Progress Notes * Soledad Lucas MD - 04/04/2022 5:14 PM CDT Patient confirmed medications at right pharmacy- no need for any changes now. * Stewart Hollis Mariah - 04/04/2022 7:46 AM CDT Patient called to see if his prescription had been switched over to another pharmacy. Please call patient to discuss. documented in this encounter Plan of Treatment Upcoming Encounters Date Type Department Care Team (Late st Contact Info) Description 08/19/2024 9:00 AM INSTRUMENT REPAIRER [facility] [place] [address] [address] [place] [address] Soledad Lucas MD [address] [place] [address] 12/16/2024 10:40 AM CDT [facility] 3 [facility] [address] [place] [address] Ramsey Oakley MD 3 [facility] [address] [place] [address] documented as of this encounter Visit Diagnoses Diagnosis Primary osteoarthritis of right knee Primary localized osteoarthrosis, lower leg documented in this encounter Additional Health Concerns Assessment Noted Time PHQ-9 Depression Total Score: 1 09/29/19 22 10:03 AM INSTRUMENT REPAIRER documented as of this encounter Care Teams Percher Relationship Specialty Start [place] [address] [place] [address] PCP - General INTERNAL MEDICINE 09/29/21 documented as of this encounter
--- OUTSIDE RECORDS SUMMARY | 2024-08-03 03:26 | XMS_ITS | Encounter Summary ---
Author Organization [facility] Address [address] [place] [address]. [address] [address] Care Team Providers Care Machine Molder Name Role Phone Soledad Lucas MD Primary Care Provider [phone] Encounter Details Date Type Department Care Team (Latest Contact Info) Description 04/13/2022 - 04/13/2022 11:59 PM CDT [facility] [address] [place] [address] Soledad Lucas MD [address] [address] Discharge Disposition: Home or Self [...] suspected to have Coronavirus/COVID-19? No / Unsure 04/13/2022 11:07 AM CDT documented as of this encounter Medications at Time of Discharge albuterol (2.5 MG/3ML) 0.083% nebulizer solutionIndicatio ns:Mild intermittent asthma without complication (HHS/HCC) Take 3 mLs (2.5 mg total) by nebulization every 6 (six) hours as needed for Wheezing. 360 mL 3 02/04/2022 2 albuterol sulfate HFA 108 (90 Base) MCG/ACT inhalerIndication s:Mild intermittent asthma without complication (HHS/HCC) Inhale 2 puffs into the lungs every 6 (six) hours as needed for Wheezing. 18 g 5 02/04/2022 2 aspirin 81 MG chewable tabletIndications :Left-sided chest pain Chew 1 tablet (81 mg total) by mouth daily. 30 tablet 10/13/2021 3 atorvastatin 40 MG tabletIndications :Mixed hyperlipidemia,Le ft-sided chest pain Take 1 tablet (40 mg total) by mouth nightly at bedtime. 90 tablet 2 10/13/2021 3 cyclobenzaprine (FLEXERIL) 10 MG tabletIndications :Chronic right-sided low back pain without sciatica Take 1 tablet (10 mg total) by mouth nightly at bedtime. 30 tablet 03/02/2022 2 fluticasone furoate-vilantero l (BREO ELLIPTA) 200-25 MCG/INH inhalerIndication s:Mild intermittent asthma without complication (HHS/HCC) Inhale 1 puff into the lungs daily. 60 each 2 02/04/2022 2 losartan-hydroCHL OROthiazide 50-12.5 MG tabletIndications :Primary hypertension Take 1 tablet by mouth daily. 90 tablet 1 02/04/2022 2 metFORMIN (GLUCOPHAGE) 500 MG tabletIndications :Prediabetes Take 1 tablet (500 mg total) by mouth daily with breakfast. 60 tablet 3 01/07/2022 3 methocarbamol (ROBAXIN) 750 MG TabIndications:Ac clarence midline low back pain with left-sided sciatica Take 1 tablet (750 mg total) by mouth 3 (three) times daily as needed. 60 tablet 1 04/05/2022 2 NEBULIZER DEVICE, DME,Indications:M oderate persistent asthma with acute exacerbation (HHS/HCC),Acute bronchitis, unspecified organism Take 1 Device by nebulization every 6 (six) hours as needed. 1 Device 01/10/2022 2 omeprazole 40 MG capsuleIndication s:Gastroesophagea l reflux disease without esophagitis Take 1 capsule (40 mg total) by mouth daily. 30 capsule 02/04/2022 2 oxyCODONE-acetami nophen (PERCOCET) 7.5-325 MG tabletIndications :Chronic Pain Take 1 tablet by mouth daily as needed for Pain. Indications: Chronic Pain 30 tablet 03/31/2022 2 vitamin D2, ergocalciferol, [address]55 UNITS capsuleIndication s:Vitamin D deficiency Take 1 capsule (50,000 Units total) by mouth weekly. 12 capsule 1 09/29/2021 3 documented as of this encounter Plan of Treatment Upcoming Encounters Date Type Department Care Team (Late st Contact Info) Description 08/19/2024 9:00 AM PACKAGE CHECKER [facility] [address] [place] [address] Soledad Lucas MD [address] [place] [address] 12/16/2024 10:40 AM CDT [facility] - [facility] 3 [facility]., Suite [facility] [place] [address] Ramsey Oakley MD 3 [facility] [address] [place] [address] documented as of this encounter Visit Diagnoses Not on filedocumented in this encounter Additional Health Concerns Assessment Noted Time PHQ-9 Depression Total Score: 1 09/29/19 10:03 AM PACKAGE CHECKER documented as of this encounter Care Teams Machine Molder Relationship Specialty Start Date End Date Soledad Lucas MD [address] [id number] PCP - General INTERNAL MEDICINE 09/29/21 documented as of this encounter
--- OUTSIDE RECORDS SUMMARY | 2024-08-03 03:26 | XMS_ITS | Encounter Summary ---
Author Organization [facility] - [facility] Address [address] [place] [address]. [place] [address] Care Team Providers Care Toxics Program Officer Name Role Phone Soledad Lucas MD Primary Care Provider [phone] Reason for Visit * Reason Comments Back Pain Knee Pain Left > right Med Refills Percocet Encounter Details Date Type Department Care Team (Latest Contact Info) Description 05/03/2022 9:00 AM CDT Office Visit [facility] - [place] [address] [address] [place] [address] Soledad Lucas MD [address] [place] [id number] Back Pain; Knee Pain (Left > right); Med Refills (Percocet) Social History Tobacco Use Types Packs/Day Years [...] suspected to have Coronavirus/COVID-19? No / Unsure 05/03/2022 8:52 AM CDT documented as of this encounter Last Filed Vital Signs Vital Sign Reading Time Taken Comments Blood Pressure 138/81 05/03/2022 9:11 AM CDT Pulse 69 05/03/2022 9:11 AM CDT Temperature 37.3 ??C (99.2 ??F) 05/03/2022 9:11 AM CD T Respiratory Rate 18 05/03/2022 9:11 AM CDT Oxygen Saturation 100% 05/03/2022 9:11 AM CDT Inhaled Oxygen Concentration - - Weight 100.7 kg (222 lb) 05/03/2022 9:11 AM CDT Height 185.4 cm (6' 1 ) 05/03/2022 9:11 AM CDT Body Mass Index 29.29 05/03/2022 9:11 AM CDT documented in this encounter Patient Instructions * Patient Instructions* Soledad Lucas MD - 05/03/2022 9:00 AM CDT Follow-up with orthopedics as planned for your next appointment. Please get images done prior to her visit. Please follow up with physical therapy. * Attachments The following attachments cannot be sent through Care Everywhere. * Back Exercises (Japanese) documented in this encounter Progress Notes * Soledad Lucas MD - 05/03/2022 9:00 AM CDTSummary: Acute visit Images from the original note were not included. Internal Medicine Outpatient Progress Note CC: Back Pain, Knee Pain (Left > right), and Med Refills (Percocet) HPI: Juliet Stout is a 60-year-old male who presents for an acute visit for concerns about left kneepain that started yesterday again as well as back pain that started yesterday as well. Patient withchronic back pain as well as chronic bilateral knee pain secondary to osteoarthritis. According to patient, he was in his usual state of health when he started to experience severe left knee pain that started all of a sudden. No prior injuries. He denies any joint fluid collection in the screening at this visit. No fever or chills. He is usually relieved when he takes his oxycodone however he is low on his prescription. Denies any redness of the left knee joint. Concerned and decided to report. Patient also presents with acute on chronic low back pain. His pain today is moderate in intensity.He denies any numbness or tingling down the lower extremity. His pain is usually relieved with his pain meds however he is running out and started to experience severe back pain. He is also on musclerelaxants which helps. He has been referred to physical therapy. Patient concerned and reported at today's visit. No recent falls. Denies any numbness or tingling down the lower extremities. Denies any concerns for red flag signs or symptoms such as loss of urine or stool incontinence. Problem List Patient Active Problem List Diagnosis [...] Outpatient Medications Marked as Taking for the 05/03/22 encounter (Office Visit) with Soledad Lucas MD [...] 2 ??? fluticasone furoate-vilanterol (BREO ELLIPTA) 200-25 MCG/INH inhaler Inhale 1 puff into the lungs [...] (three) times daily. 60 tablet 0 ??? [START ON 05/04/2022] methylPREDNISolone, ABBE, (MEDROL DOSEPAK) 4 MG tablet 6 TABLETS ON DAY ONE, 5 TABLETS DAY TWO, 4 TABLETS DAY THREE, 3 TABLETS DAY FOUR, 2 TABLETS DAY FIVE, AND 1 TABLET DAY SIX 1 each 0 ??? oxyCODONE-acetaminophen (PERCOCET) 7.5-325 MG tablet Take 1 tablet by mouth daily as needed forPain. Indications: Chronic Pain 30 tablet 0 Current Facility-Administered Medications for the 05/03/22 encounter (Office Visit) with Soledad Lucas MD [...] Negative. Musculoskeletal: Positive for back pain and falls. Negative for joint pain, myalgias and neck pain. Neurological: Negative. Objective: Filed Vitals: 05/03/22 0911 BP: 138/81 Pulse: 69 Resp: 18 Temp: 99.2 ??F (37.3 ??C) TempSrc: Temporal SpO2: 100% Weight: 100.7 kg (222 lb) Height: 6' 1 (1.854 m) Body mass index is 29.29 kg/m??. General alert, cooperative, no distress HEENT [...] atraumatic, no cyanosis, 2+ pedal pulses, no edema; no joint effusion Skin Skin color, texture, turgor normal. No rashes or lesions appreciated. Neurologic No focal deficits, motor strength is grossly normal and symmetric Psych Normal mood and affect MSK No synovitis, no bony tenderness, no joint effusions Lymph No cervical or supraclavicular adenopathy Assessment and Plan: Encounter Diagnose(s) ICD-10-CM ICD-9-CM SNOMED CT(R) 1. Drug therapy Z79.899 V58.69 PATIENT ENCOUNTER STATUS DRUG MONITORING, PANEL 5, WITH CONFIRMATION(U) DRUG MONITORING, PANEL 5, WITH CONFIRMATION (U) 2. Primary osteoarthritis of left knee M17.12 715.16 OSTEOARTHRITIS OF LEFT KNEE JOINT oxyCODONE-acetaminophen (PERCOCET) 7.5-325 MG tablet 3. Chronic right-sided low back pain without sciatica M54.50 724.2 CHRONIC LOW BACK PAIN methylPREDNISolone acetate (DEPO-Medrol) injection 40 mg G89.29 338.29 methylPREDNISolone, ABBE, (MEDROL DOSEPAK) 4 MG tablet methocarbamol (ROBAXIN) 500 MG tablet 4. Acute pain of left knee M25.562 719.46 PAIN OF KNEE REGION 1. Primary osteoarthritis of left knee -Currently patient with an acute flare of left knee joint. Prior blood work shows negative uric acid levels for gout. X-rays done in the past has showed severe osteoarthritis. He eventually will needsurgery and currently on following orthopedics. He was already enrolled in physical therapy at the moment. Given his underlying asthma, unable to do NSAIDs at this time. His pain appears controlled in the meantime with his current medication regimen. Currently no joint effusion in the left knee present currently. He has an order for an MRI of the left knee and yet to get done. - oxyCODONE-acetaminophen (PERCOCET) 7.5-325 MG tablet; Take 1 tablet by mouth daily as needed for Pain. Indications: Chronic Pain Dispense: 30 tablet; Refill: 0 2. Chronic right-sided low back pain without sciatica -Recent flareup of low back pain. Again given patient's underlying history of asthma, unable to do NSAIDs at this time. Previously had benefited from steroids. Close follow-up if symptoms worsen. He is already following with physical therapy. He has an order for an MRI of the lumbar spine and yet to get done. - methylPREDNISolone acetate (DEPO-Medrol) injection 40 mg - methylPREDNISolone, ABBE, (MEDROL DOSEPAK) 4 MG tablet; 6 TABLETS ON DAY ONE, 5 TABLETS DAY TWO, 4TABLETS DAY THREE, 3 TABLETS DAY FOUR, 2 TABLETS DAY FIVE, AND 1 TABLET DAY SIX Dispense: 1 each; Refill: 0 - methocarbamol (ROBAXIN) 500 MG tablet; Take 1 tablet (500 mg total) by mouth 3 (three) times daily. Dispense: 60 tablet; Refill: 0 3. Drug therapy - DRUG MONITORING, PANEL 5, WITH CONFIRMATION (U); Future - DRUG MONITORING, PANEL 5, WITH CONFIRMATION (U) 4. Acute left knee pain -Management testing #1 - methylPREDNISolone acetate (DEPO-Medrol) injection 40 mg - methylPREDNISolone, ABBE, (MEDROL DOSEPAK) 4 MG tablet; 6 TABLETS ON DAY ONE, 5 TABLETS DAY TWO, 4TABLETS DAY THREE, 3 TABLETS DAY FOUR, 2 TABLETS DAY FIVE, AND 1 TABLET DAY SIX Dispense: 1 each; Refill: 0 - oxyCODONE-acetaminophen (PERCOCET) 7.5-325 MG tablet; Take 1 tablet by mouth daily as needed for Pain. Indications: Chronic Pain Dispense: 30 tablet; Refill: 0 Counseling given: Yes Comment: counsled by Dr Lucas I spent 30 minutes today reviewing the patient's medical record, obtaining history, performing an exam, ordering medications, tests, and/or procedures, documenting in the medical record, referring and/or communicating with other health care providers, counseling and educating the patient/family/caregiver, reviewing and communicating test results and coordination of care. Side effects and less common but more severe adverse effects of recommended medical therapies were explained to the patient. Requested MyChart or telephone follow up prn if symptoms change, worsen, or persist, or if side effect of treatment is experienced. DRAGON: This dictation was at least in part performed using [employer] speak and there may be some inherent flaws in this principal data architect due to the nature of this program. Soledad Lucas MD Internal Medicine [facility], [facility]. documented in this encounter Plan of Treatment Upcoming Encounters Date Type Department Care Team (Late st Contact Info) Description 08/19/2024 9:00 AM PSYCH SALES SPECIALIST Office Visit [facility] - [place] [address] [address] [place] [address] Soledad Lucas MD [address] [place] [address] [address] [place] [address] 12/16/2024 10:40 AM CDT Office Visit [facility] 3 [facility]., [address] [place] [id number] Ramsey Oakley MD 3 [facility] [address]YN[address] [place] [address] documented as of this encounter Procedures Procedure Name Priority Date/Time Associated Diagnosis Comments DRUG MONITORING, PANEL 5, WITH CONFIRMATION (U) Routine 05/03/2022 9:48 AM CDT Drug therapy documented in this encounter Results * (ABNORMAL) DRUG MONITORING, PANEL 5, WITH CONFIRMATION (U) (05/03/2022 9:48 AM CDT) [facility] AMPHETAMINES PM NEGATIVE <500 ng/mL [facility] BARBITURATES PM (U) NEGATIVE <300 ng/mL [facility] BENZODIAZEPINES PM (U) NEGATIVE <100 ng/mL [facility] COCAINE METABOLITE PM (U) NEGATIVE <150 ng/mL [facility] MARIJUANA METABOLITE PM (U) POSITIVE(A) <20 ng/mL [facility] MARIJUANA METABOLITE PM CONF (U) 1,455(H) <5 ng/mL [facility] MARIJUANA COMMENTS [facility] Comment:See Marijuana Notes, LDT Notes METHADONE PM (U) NEGATIVE <100 ng/mL [facility] OPIATES PM (U) NEGATIVE <100 ng/mL [facility] OXYCODONE PM (U) POSITIVE(A) <100 ng/mL [facility] NOROXYCODONE PM (U) 113(H) <50 ng/mL [facility] OXYCODONE PM (U) NEGATIVE <50 ng/mL [facility] OXYMORPHONE PM (U) 117(H) <50 ng/mL [facility] OXYCODONE COMMENTS [facility] Comment:See Oxycodone Notes, LDT Notes CREATININE RANDOM URINE 97.6 > or = 20.0 mg/dL [facility] pH PM (U) 7.5 4.5 - 9.0 [facility] OXIDANT NEGATIVE <200 mcg/mL [facility] Note [facility] Comment: This drug testing is for medical treatment only. Analysis was performed as non-forensic testing and these results should be used only by healthcare providers to render diagnosis or treatment, or to monitor progress of medical conditions. Marijuana Notes: Marijuana Metabolite detected is consistent with exposure to Marijuana (THC) and/or hemp derived products. ?? Some jurisdictions do not include hemp within the definition of Marijuana. Oxycodone Notes: Oxymorphone detected is consistent with the use of the drug Oxymorphone. Oxymorphone can be a prescribed drug and is also a metabolite of Oxycodone. Noroxycodone, Oxymorphone detected is consistent with the use of the drug Oxycodone. LDT Notes: Confirmation tests were developed and their analytical performance characteristics have been determined by [facility]. It has not been cleared or approved by the FDA. This assay has been validated pursuant to the CLIA regulations and is used for clinical purposes. Healthcare Providers needing Interpretation assistance, please contact us at [phone] ( ) M-F, 8am to 10pm EST 05/03/2022 9:48 AM CDT 05/04/2022 5:00 AM CDT Soledad Lucas MD LABORATORY Final Result [facility] [address] [place] [address] [facility] [address] [place] [address] documented in this encounter Visit Diagnoses Diagnosis Drug therapy- Primary Encounter for long-term (current) use of other medications Primary osteoarthritis of left knee Primary localized osteoarthrosis, lower leg Chronic right-sided low back pain without sciatica Acute pain of left knee documented in this encounter Administered Medications Inactive Administered Medications - up to 3 most recent administrations Medication Order MAR Action Action Date Dose Rate Site methylPREDNISolone acetate (DEPO-Medrol) injection 40 mg 40 mg, Intramuscular, Once, 1 dose, On Mon05/03/22 at 0945[facility]:Chronic right-sided low back pain without sciatica Given 05/03/2022 9:30 AM CDT 40 mg L eft Deltoid documented in this encounter Additional Health Concerns Assessment Noted Time PHQ-9 Depression Total Score: 1 09/29/19 10:03 AM PSYCH SALES SPECIALIST documented as of this encounter Care Teams Toxics Program Officer Relationship Specialty Start Date End Date Soledad Lucas MD [address] [address] PCP - General INTERNAL MEDICINE 09/29/21 documented as of this encounter
--- OUTSIDE RECORDS SUMMARY | 2024-08-03 03:26 | XMS_ITS | Encounter Summary ---
Author Organization [facility] - [facility] Address [address] [place] [address]. [address] [address] Care Team Providers Care Machine Tech Name Role Phone Soledad Lucas MD Primary Care Provider [phone] Reason for Visit * Reason Onset Date Comments Medication 03/31/2022 Encounter Details Date Type Department Care Team (Late st Contact Info) Description 03/31/2022 Telephone [facility] Care - [address] [place] [address] Soledad Lucas MD [address] [place] [address] [address] [place] [address] Medication Social History Tobacco Use [...] Progress Notes * Lois Mei MA - 03/31/2022 2:36 PM CDT Patient called and wanted to know if you can resend his oxy to [facility] in [place]. And just FYI he had refused to see the orthopedic surgeon. documented in this encounter Plan of Treatment Upcoming Encounters Date Type Department Care Team (Late st Contact Info) Description 08/19/2024 9:00 AM RUBBER CUTTER [facility] [place] [address] [address] [place] [address] [place] [address] [place] [address] 12/16/2024 10:40 AM CDT [facility] 3 [facility]., [address] [place] [address] Ramsey Oakley MD 3 [facility] [address] [place] [address] documented as of this encounter Visit Diagnoses Not on filedocumented in this encounter Additional Health Concerns Assessment Noted Time PHQ-9 Depression Total Score: 1 09/29/19 22 10:03 AM RUBBER CUTTER documented as of this encounter Care Teams Machine Tech Relationship Specialty Start Date End Date Soledad Lucas MD 118[address] [facility] [address] [place] [address] PCP - General INTERNAL MEDICINE 09/29/21 documented as of this encounter
--- OUTSIDE RECORDS SUMMARY | 2024-08-03 03:26 | XMS_ITS | Encounter Summary ---
Author Organization [facility] Address [address] [place] [address]. [place], [place] [id number] [place] [address] Care Team Providers Care Egg And Spice Mixer Name Role Phone Soledad Lucas MD Primary Care Provider [phone] Encounter Details Date Type Department Care Team (Latest Contact Info) Description 03/02/2022 5:13 PM CDT - 03/02/2022 11:59 PM CDT Hospital Encounter [facility] [address] [place] [address] Soledad Lucas MD [address] [address] Discharge Disposition: Home or Self [...] nightly at bedtime. 30 tablet 03/02/2022 2 cyclobenzaprine 10 MG tablet Take 10 mg by mouth 3 (three) times daily as needed for Muscle Spasms. 09/13/2021 2 fluticasone furoate-vilantero l (BREO ELLIPTA) 200-25 [...] with breakfast. 60 tablet 3 01/07/2022 3 methylPREDNISolon e, ABBE, (MEDROL DOSEPAK) 4 MG tabletIndications :Chronic right-sided low back pain without sciatica 6 TABLETS ON DAY ONE, 5 TABLETS DAY TWO, 4 TABLETS DAY THREE, 3 TABLETS DAY FOUR, 2 TABLETS DAY FIVE, AND 1 TABLET DAY SIX 1 each 03/02/2022 2 NEBULIZER DEVICE, DME,Indications:M oderate persistent asthma [...] :Chronic Pain Take 1 tablet by mouth every 8 (eight) hours as needed for Pain. Indications: Chronic Pain 21 tablet 02/04/2022 2 vitamin D2, ergocalciferol, 43084 UNITS capsuleIndication s:Vitamin D deficiency Take 1 capsule (50,000 Units total) by mouth weekly. 12 capsule 1 09/29/2021 3 documented as of this encounter Plan of Treatment Upcoming Encounters Date Type Department Care Team (Late st Contact Info) Description 08/19/2024 9:00 AM ROOM SERVICE RUNNER [facility] [address] [place] [address] Soledad Lucas MD [address] [place] [address] 12/16/2024 10:40 AM CDT [facility] [place] [facility] 3 [facility], [address] [place] [id number] Ramsey Oakley MD 3 [facility] [address] [place] [address] [phone] (work) documented as of this encounter Procedures Procedure Name Priority Date/Time Associated Diagnosis Comments HC BODY FLUID CULTURE TIMED 03/02/2022 9:00 AM CDT HC CELL CT BODY FLUID W/DIFF Routine 03/02/2022 9:00 AM CDT documented in this encounter Results * CULTURE, BODY FLUID W/ GRAM STAIN (03/02/2022 9:00 AM CDT) SPEC DESCRIPTION KNEE,LEFT: EFFUSION OF JOINT 03/02/2022 6:23 PM CDT [facility] SPECIAL REQUESTS NO SPECIAL REQUEST 03/02/2022 6:23 PM CDT [facility] GRAM STAIN RESULT RARE NEUTROPHILS SEEN 03/02/2022 8:05 PM CDT [facility] GRAM STAIN RESULT NO ORGANISMS SEEN 03/02/2022 8:05 PM CDT [facility] CULTURE RESULT NO GROWTH 5 DAYS 03/08/2022 10:37 AM CDT [facility] STRUCTURE OF LEFT KNEE REGION / Unknown 03/02/2022 9:00 AM CDT 03/02/2022 6:20 PM CDT Comment:EFFUSION OF JOINT Soledad Lucas MD MICROBIOLOGY - GENERAL ORDERABLE S Final Result Performing Organization Address City/State/[facility] Co de Phone Number [facility] [address] [place] [address], [phone] * CELL COUNT W/ DIFF BODY FLUID (03/02/2022 9:00 AM CDT) SOURCE (FLUID) KNEE,LEFT 03/02/2022 8:45 PM CDT [facility] WBC (FLUID) 0.291 x10'3/uL 03/02/2022 8:45 PM CDT [facility] Comment:REFERENCE RANGE NOT ESTABLISHED RBC (FLUID) 0.004 x10'6/uL 03/02/2022 8:45 PM CDT [facility] Comment:REFERENCE RANGE NOT ESTABLISHED DIFFERENTIAL MANUAL DIFFERENTIAL PERFORMED ON CONCENTRATED CYTOSPIN 03/02/2022 5:15 PM CDT [facility] CELLS COUNTED 100 No COUNTED 03/02/2022 9:29 PM CDT [facility] SEGS (FLUID) 14 % 03/02/2022 9:29 PM CDT [facility] LYMPHS (FLUID) 67 % 03/02/2022 9:29 PM CDT [facility] OTHER MONONUCLEAR CELLS (FLD) 19 % 03/02/2022 9:29 PM CDT [facility] STRUCTURE OF LEFT KNEE REGION / Unknown 03/02/2022 9:00 AM CDT us Soledad Lucas MD BODY FLUIDS AND STOOLS ORDERABLE S Final Result [facility] [address] [place] [address], [phone] documented in this encounter Visit Diagnoses Not on filedocumented in this encounter Additional Health Concerns Assessment Noted Time PHQ-9 Depression Total Score: 1 09/29/19 22 10:03 AM ROOM SERVICE RUNNER documented as of this encounter Care Teams Egg And Spice Mixer Relationship Specialty Start Date End Date Soledad Lucas MD [facility] [address] [place] [address] PCP - General INTERNAL MEDICINE 09/29/21 documented as of this encounter
--- OUTSIDE RECORDS SUMMARY | 2024-08-03 03:26 | XMS_ITS | Encounter Summary ---
Author Organization [facility] Address [address] [place] [address]. [address] [address] Care Team Providers Care Extrusion Former Name Role Phone Soledad Lucas MD Primary Care Provider Reason for Visit * Reason Onset Date Comments Results 02/09/2022 Encounter Details Date Type Department Care Team (Late st Contact Info) Description 02/09/2022 Telephone [facility] Multispecialty Care - [place] [address] [address] [place] [address] Soledad Lucas MD [address] [place] [address] [address] [place] [address] Results Social History Tobacco Use Types Packs/Day Years Used Date Smoking Tobacco: Never Smokeless Tobacco: Never Comments:counsled by Dr Alcala e Alcohol Use Standard Drinks/Week Comments Yes 0 (1 standard drink = 0.6 oz pur e alcohol) Socially PHQ-2 Answer Date Recorded PHQ-2 [...] suspected to have Coronavirus/COVID-19? No / Unsure 02/04/2022 9:39 AM CDT documented as of this encounter Progress Notes * Lois Mei MA - 02/09/2022 8:56 AM CDT Spoke with patient about xray results and patient has no further questions at this time documented in this encounter Plan of Treatment Upcoming Encounters Date Type Department Care Team (Late st Contact Info) Description 08/19/2024 9:00 AM BULLET SLUGS INSPECTOR [facility] [place] [address] [address] [place] [address] Soledad Lucas MD [address] [place] [address] 12/16/2024 10:40 AM CDT [facility] - [facility] 3 [facility] [address] [place] [address] Ramsey Oakley MD [address] [facility] [address] [place] [address] documented as of this encounter Visit Diagnoses Not on filedocumented in this encounter Additional Health Concerns Assessment Noted Time PHQ-9 Depression Total Score: 1 09/29/19 22 10:03 AM BULLET SLUGS INSPECTOR documented as of this encounter Care Teams Extrusion Former Relationship Specialty Start Date End Date Soledad Lucas MD [address] [place] [address] PCP - General INTERNAL MEDICINE 09/29/21 documented as of this encounter
--- OUTSIDE RECORDS SUMMARY | 2024-08-03 03:26 | XMS_ITS | Encounter Summary ---
Author Organization [facility] Address [address] [place] [address]. [place] [address] Care Team Providers Care Emission Technician Name Role Phone Soledad Lucas MD Primary Care Provider [phone] Reason for Visit * Reason Comments Back Pain * Physical Medicine (Routine) - Closed Specialty Diagnoses / Procedures Referred By Prasanth santillan Referred To Contact PHYSICAL THERAPY / [facility] Physical Therapy Diagnoses Disc disease, degenerative, lumbar or lumbosacral Chronic bilateral low back pain with left-sided sciatica Procedures OFFICE/OUTPT VISIT,NEW,LEVL III OFFICE/OUTPT VISIT,NEW,LEVL IV OFFICE/OUTPT VISIT,NEW,LEVL V OFFICE/OUTPT VISIT,EST,LEVL III OFFICE/OUTPT VISIT,EST,LEVL IV OFFICE/OUTPT VISIT,EST,LEVL V Soledad Lucas MD [address] [facility] [address] [place] [address] Phone: tel: fax: [facility] [address] [place] [address] Phone: tel: fax: Referral ID Status Reason Start Date Expiration Date V isits Requested Visits Authorized [id number] Closed Physical Therapy 04/06/2022 05/06/2023 10 10 Encounter Details Date Type Department Care Team (Late st Contact Info) Description 05/13/2022 10:15 AM CDT Office Visit [facility] [address] [place] [address] Soledad Lucas MD [address] [facility] [address] [place] [address] Dolores Vega, PT Back Pain Social History Tobacco Use Types [...] as of this encounter Progress Notes * Dolores Vega, PT - 05/13/2022 10:15 AM CDT Physical Therapy Visit Note: Patient Name: Juliet Stout Diagnosis: Degenerative disc disease, lumbar (primary encounter diagnosis) Decreased rom of trunk and back Chronic bilateral low back pain with left-sided sciatica Personal Protective Equipment PPE Used During Visit: Therapist wore medical grade mask throughout session, Patient wore mask throughout session SUBJECTIVE Therapy Visit Treatment Day: 2 Total Approved Visits: 12 Authorization Expiration Date: progress note Therapy Plan of Care: 2x/week Current Therapy Orders: eval and treat Diagnosis: chronic LBP with left sciatica Referring Provider: Lance Sanders MD Visit: prn Precautions: HTN Restrictions: none Date of Injury: chronic Date of Surgery/Weeks Post-Op: NA Workers Compensation Injury: No 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 He has been doing the exercises. He got his MRI results and has a referral to neurosurgery. Compliance to Home Program: Yes Reported Falls since last visit: None Medications changes since last visit : None Pain Current Location of Pain: Low back Current Pain Level: 02/13 OBJECTIVE Treatment provided today: Therapeutic Exercise - 84192 Number of Minutes - 99277: 28 Exercise: Quadruped rock back x10 with 10 second hold Exercise: Quadraped thread the needle x10 each Exercise: Seated trunk flexion 3 directions with green ball x10 each Exercise: Staggered stance paloff press with 10# x10 each position Exercise: Hip matrix with foot ER x5 each Exercise: TRX trunk flexion stretch 3x20 seconds Manual Therapy - 48457 Number of Minutes - 80533: 15 Intervention: Prone PA mobilization grade IV L1-5 Intervention: Sidelying lumbar rotational mobilizations both sides Intervention: Supine flexion rotation stretching bilaterally Education Was Education Provided: Yes Topic: Educated on purpose of today's exercises to improve mobility and stability Recipient: Patient Method: Verbal Response: Verbalized understanding ASSESSMENT Assessment Note: Patient presents for first treatment visit. We initiated lumbar mobilizations in various positions to promote pain relief and joint mobility. Focused primarily on flexion based mobility and core stability. Patient responded well and pain levels stayed manageable throughout. PLAN Plan Next Visit Plan: Assess response to first treatment and progress as tolerated Total Time Total Time in Minutes: 43 Timed Code Treatment Minutes : 43 documented in this encounter Plan of Treatment Upcoming Encounters Date Type Department Care Team (Late st Contact Info) Description 08/19/2024 9:00 AM ELECTRONIC SCALE TESTER [facility] [place] [address] [address] [place] [address] Soledad Lucas MD [address] [place] [address] 12/16/2024 10:40 AM CDT Office Visit [facility] Care - [address], [address] [place] [phone] Ramsey Oakley MD [address] [place] [address] documented as of this encounter Visit Diagnoses Diagnosis Degenerative disc disease, lumbar- Primary Degeneration of lumbar or lumbosacral intervertebral disc Decreased ROM of trunk and back Chronic bilateral low back pain with left-sided sciatica documented in this encounter Additional Health Concerns Assessment Noted Time PHQ-9 Depression Total Score: 1 09/29/19 22 10:03 AM ELECTRONIC SCALE TESTER documented as of this encounter Care Teams Emission Technician Relationship Specialty Start Date End Date Soledad Lucas MD [address] [address] PCP - General INTERNAL MEDICINE 09/29/21 documented as of this encounter
--- OUTSIDE RECORDS SUMMARY | 2024-08-03 03:26 | XMS_ITS | Encounter Summary ---
Author Organization [facility] Address [address] [place] [address]. [place], [place] [id number] [place] [address] Care Team Providers Care Manufacturing Support Engineer Name Role Phone Soledad Lucas MD Primary Care Provider [phone] Encounter Details Date Type Department Care Team (Latest Contact Info) Description 02/04/2022 Travel Social History Tobacco Use Types Packs/Day [...] st Contact Info) Description 08/19/2024 9:00 AM WET END TESTER Office Visit [facility] Multispecialty Care - [place] [address] [address] [place] [address] Soledad Lucas MD [address] [place] [address] [address] [place] [address] 12/16/2024 10:40 AM CDT Office Visit [facility] Multispecialty Care - [facility] 3 [facility] [address] [place] [address] Ramsey Oakley MD 3 [facility] [address] [place] [address] documented as of this encounter Visit Diagnoses Not on filedocumented in this encounter Additional Health Concerns Assessment Noted Time PHQ-9 Depression Total Score: 1 09/29/19 22 10:03 AM WET END TESTER documented as of this encounter Care Teams Manufacturing Support Engineer Relationship Specialty Start Date End Date Soledad Lucas MD [address] [address] PCP - General INTERNAL MEDICINE 09/29/21 documented as of this encounter
--- OUTSIDE RECORDS SUMMARY | 2024-08-03 03:26 | XMS_ITS | Encounter Summary ---
Author Organization [facility] Address [address] [place] [address]. [place], [place] [address] [place] [address] Care Team Providers Care Research Quality Assurance Specialist Name Role Phone Soledad Lucas MD Primary Care Provider [phone] Reason for Visit * Reason Onset Date Comments Reschedule 02/25/2022 Encounter Details Date Type Department Care Team (Late st Contact Info) Description 02/25/2022 Telephone [facility] Multispecialty Care - [place] [address] [address] [place] [address] Soledad Lucas MD [address] [place] [address] [address] [place], [place] [id number] Reschedule Social History Tobacco Use Types Packs/Day [...] Progress Notes * Stewart Hollis Mariah - 02/25/2022 10:43 AM CDT Patient called and rescheduled for 03/02/22 @ 9:00am. documented in this encounter Plan of Treatment Upcoming Encounters Date Type Department Care Team (Late st Contact Info) Description 08/19/2024 9:00 AM STEWARD/STEWARDESS ECONOMY CLASS [facility] [place] [address] [address] [place] [address] Soledad Lucas MD [address] [place] [address] 12/16/2024 10:40 AM CDT [facility] 3 [facility] [place] [address] Ramsey Oakley MD [address] [facility] [address] [place] [address] documented as of this encounter Visit Diagnoses Not on filedocumented in this encounter Additional Health Concerns Assessment Noted Time PHQ-9 Depression Total Score: 1 09/29/19 10:03 AM STEWARD/STEWARDESS ECONOMY CLASS documented as of this encounter Care Teams Research Quality Assurance Specialist Relationship Specialty Start Date End Date Soledad Lucas MD [address] [place] [address] PCP - General INTERNAL MEDICINE 09/29/21 documented as of this encounter
--- OUTSIDE RECORDS SUMMARY | 2024-08-03 03:26 | XMS_ITS | Encounter Summary ---
Author Organization [facility] Address [address] [place] [address]. [place] [address] Care Team Providers Care Plodder Operator Name Role Phone Soledad Lucas MD Primary Care Provider [phone] Reason for Visit * Reason Comments Initial Evaluation * Physical Medicine (Routine) - Closed Specialty Diagnoses / Procedures Referred By Prasanth satnillan Referred To Contact PHYSICAL THERAPY / [facility] Physical Therapy Diagnoses Disc disease, degenerative, lumbar or lumbosacral Chronic bilateral low back pain with left-sided sciatica Procedures OFFICE/OUTPT VISIT,NEW,LEVL III OFFICE/OUTPT VISIT,NEW,LEVL IV OFFICE/OUTPT VISIT,NEW,LEVL V OFFICE/OUTPT VISIT,EST,LEVL III OFFICE/OUTPT VISIT,EST,LEVL IV OFFICE/OUTPT VISIT,EST,LEVL V Soledad Lucas MD [address] [facility] [address] [place] [address] Phone: tel: fax: [facility] [address] [place] [address] Phone: tel: fax: Referral ID Status Reason Start Date Expiration Date V isits Requested Visits Authorized [id number] Closed Physical Therapy 04/06/2022 05/06/2023 10 10 Encounter Details Date Type Department Care Team (Late st Contact Info) Description 05/06/2022 8:30 AM CDT Office Visit [facility] [address] [place] [address] Soledad Lucas MD [address] [facility] [address] [place] [address] Jensen Segura, [place] [address] Initial Evaluation Social History Tobacco Use Types Packs/Day Years [...] Coronavirus/COVID-19? No / Unsure 08/29/2022 10:33 AM ATTORNEY documented as of this encounter Patient Instructions * Patient Instructions* Jensen Segura, PT - 05/06/2022 8:30 AM CDT Access Code: [email or web address] URL: [email or web address] Date: 05/06/2022 Prepared by: Jensen Segura Exercises Lower Trunk Rotation (Block #2) - 2 x daily - 7 x weekly - 1 sets - 10 reps Standing Shoulder and Trunk Flexion at Table (Block #1) - 2 x daily - 7 x weekly - 1 sets - 3-5 reps - 20 hold Sidelying Thoracic Lumbar Rotation - 2 x daily - 7 x weekly - 1 sets - 6-8 reps Prone Press Up On Elbows - 2 x daily - 7 x weekly - 1 sets - 5-8 reps documented in this encounter Progress Notes * Jensen Segura, PT - 05/06/2022 8:30 AM CDT Physical Therapy Evaluation Date: 05/06/2022 Patient Name: Juliet Stout : 08/14/1961 Diagnosis: The primary encounter diagnosis was Chronic bilateral low back pain with left-sided sciatica. Diagnoses of Degenerative disc disease, lumbar and Decreased ROM of trunk and back were also pertinent to this visit. AMB PT SUBJECTIVE EVAL: History of Present Illness: Mechanism of injury: Patient reports a long standing history of intermittent LBP. About 3 weeks agohe woke up with a significant spike in pain. No specific injury nor cause. Pain across the low backwith occasional radiation into the buttocks. No pain/radicular symptoms in the LEs. Reports pain isat its worst with static standing. This is even more difficult because he is dealing with B knee pain and considering a TKA. Better if he can frequently change positions. Minimal pain with sitting and laying. No LE weakness/sensations loss. No saddle anesthesia nor bladder/blowel changes. He has not had any formal treatment for the low back. PMH was reviewed and can be found on the history form. Pain: Current pain ratin/10 Location: Low back Relieving factors: Rest (sitting) Exacerbated by: standing. Progression: Unchanged Diagnostic Tests: Abnormal MRI: MRI to be done next week. Treatments: None Patient Goals: Patient goals for therapy: Decreased pain TRUNK ROM Flex 100% Ext 25% Sidebend R 75% L 75% Rotation R 50% L 50% *lower lumbar/SIJ pain with position changes during exam Repeated Motion Testing Repeated Flexion in Standing (RFIL) improves Repeated Extension in Lying (REIL) worsens THORACIC SCREEN PA hypomobility POSTURE Right iliac crest elevated/left lower; left shoulder depressed PALPATION No TTP; PA hypomobility throughout the lumbar spine FLEXIBILITY HAMSTRING R 75% L 75% QUADRICEPS R 75% L 75% PIRIFORMIS R 75% L 75*% ITB R -% L -% HIP FLEXOR L 75% R 75% HIP SCREEN ROM WFL except hip IR 50% B Strength WFL except hip abduction 4+/5 Abdominal strength 4/5 through leg lowering Deferred isometric chest raise due to pain with extension TESTING SLR neg SLUMP neg NEURO SCREEN LE Reflexes Patellar (L4) R 2+ L 2+ Achilles (S1) R 1+ L 1+ Dermatomes intact Myotomes intact Physical Therapy Certification Form - Spine Treatment Today: Initial Evaluation completed with patient education on evaluation findings and plan of MCFP Modality Education: Heat for 15-20 minutes prn and before stretching times per day HEP instruction: see patient instructions Timed Code Tx Minutes 10 Units 1 Total Tx Time 45 10 Therapeutic Exercise, 45 Mod Therapy Diagnosis: Low Back Pain Stiffness Patient demonstrated Good understanding of above education and HEP. Assessment: Patient is a 60 year old male with a history of LBP and recent increase in pain. His exam shows a directional preference towards flexion. Pain reproduced at endrange extension which showssignificant limitations. This should be addressed to help reduce the pain he has with discomfort. He would also benefit from improve strength in the trunk and hips given the physical demands of his job Therapy Goals: (Goals to be met by DC) 1. Increase ROM/ flexibility of trunk extension to reduce pain with position changes 2. Independent HEP to improve mobility and strength 3. Decrease pain so he can better perform job dutes 4. Increase strength so he can stand for prolonged periods without difficulty Assessment Eval Complexity Personal Factor/Co-morbidities: 3 or more (High) knee pain, Chronicity, HTN, Profession Examination of Body Systems Needing Addressed: 3 or more (Mod) LE Deficits, Standing Deficits, Trunk Deficits Clinical Presentation of Patient: Evolving (Mod) Evolving and changing characteristics - Varying Pain with Activity Clinical Decision Making: Mod Patient to be seen for: body mechanics education, flexibilty, home exercise program, manual therapy, neuromuscular reeducation, posture education, ROM, strengthening Next Visit: Review HEP and patient education. Lumbar and thoracic mobilizations to improve pain andmobility. Trunk mobility (directional preference to flexion). Trunk/core strengthening and hip abduction strengthening Frequency: 2 times per 4-6 week for 8-12 visits. Therapist: JENSEN SEGURA PT Date: 05/06/22 Time: 8:33 AM Physician Signature: Date: Time: Patient Name: Juliet Stout : 08/14/1961 Cosigned by Maria Alejandra Davis MD at 05/06/2022 10:23 AM CDT documented in this encounter Plan of Treatment Upcoming Encounters Date Type Department Care Team (Late st Contact Info) Description 08/19/2024 9:00 AM ATTORNEY [facility] [place] [address] [address] [place] [address] Soledad Lucas MD [address] [place] [address] [address] [place] [address] 12/16/2024 10:40 AM CDT Office Visit [facility] [address] [facility] [place] [address] Ramsey Oakley MD [address] [facility] [address] [place] [address] documented as of this encounter Visit Diagnoses Diagnosis Chronic bilateral low back pain with left-sided sciatica- Primary Degenerative disc disease, lumbar Degeneration of lumbar or lumbosacral intervertebral disc Decreased ROM of trunk and back documented in this encounter Additional Health Concerns Infection Onset Date Last Indicated Resolved Time COVID-19 Rule Out 06/13/2022 06/13/2022 06/13/2022 2:50 PM ATTORNEY COVID-19 Rule Out 06/13/2022 06/13/2022 06/14/2022 1:24 PM ATTORNEY COVID-19 Rule Out 07/06/2022 07/06/2022 07/06/2022 3:14 PM ATTORNEY COVID-19 Rule Out 07/06/2022 07/06/2022 07/08/2022 1:45 AM ATTORNEY Assessment Noted Time PHQ-9 Depression Total Score: 1 09/29/19 22 10:03 AM ATTORNEY documented as of this encounter Care Teams Plodder Operator Relationship Specialty Start Date End Date Soledad Lucas MD [address] [address] PCP - General INTERNAL MEDICINE 09/29/21 documented as of this encounter
--- OUTSIDE RECORDS SUMMARY | 2024-08-03 03:26 | XMS_ITS | Encounter Summary ---
Author Organization [facility] Address [address] [place] [address]. [place], [place] [address] [place] [address] Care Team Providers Care Film Writer Name Role Phone Soledad Lucas MD Primary Care Provider [phone] Encounter Details Date Type Department Care Team (Latest Contact Info) Description 04/15/2022 Travel Social History Tobacco Use Types Packs/Day [...] st Contact Info) Description 08/19/2024 9:00 AM HONING JOB SETTER Office Visit [facility] - [place] [address] [address] [place] [address] Soledad Lucas MD [address] [place] [address] [address] [place] [address] 12/16/2024 10:40 AM CDT Office Visit [facility] Care - [facility] [address] [facility] [place] [address] Ramsey Oakley MD [address] [facility] [address] [place] [address] documented as of this encounter Visit Diagnoses Not on filedocumented in this encounter Additional Health Concerns Assessment Noted Time PHQ-9 Depression Total Score: 1 09/29/19 22 10:03 AM HONING JOB SETTER documented as of this encounter Care Teams Film Writer Relationship Specialty Start Date End Date Soledad Lucas MD [address] [address] PCP - General INTERNAL MEDICINE 09/29/21 documented as of this encounter
--- OUTSIDE RECORDS SUMMARY | 2024-08-03 03:26 | XMS_ITS | Encounter Summary ---
Author Organization [facility] Address [address] [place] [address]. [place], [place] [address] [place] [address] Care Team Providers Care Telephone Claims Representative Name Role Phone Soledad Lucas MD Primary Care Provider [phone] Encounter Details Date Type Department Care Team (Latest Contact Info) Description 05/06/2022 Travel Social History Tobacco Use Types Packs/Day [...] suspected to have Coronavirus/COVID-19? No / Unsure 05/06/2022 8:31 AM CDT documented as of this encounter Plan of Treatment Upcoming Encounters Date Type Department Care Team (Late st Contact Info) Description 08/19/2024 9:00 AM STOCK MANAGER Office Visit [facility] Medical [facility] Multispecialty Care - [place] [address] [address] [place] [address] Soledad Lucas MD [address] [place] [address] [address] [place] [address] 12/16/2024 10:40 AM CDT Office Visit [facility] Medical [facility] Multispecialty Care - [facility] [address] [facility] [place] [address] Ramsey Oakley MD [address] [facility] [address] [place] [address] documented as of this encounter Visit Diagnoses Not on filedocumented in this encounter Additional Health Concerns Assessment Noted Time PHQ-9 Depression Total Score: 1 09/29/19 22 10:03 AM STOCK MANAGER documented as of this encounter Care Teams Telephone Claims Representative Relationship Specialty Start Date End Date Soledad Lucas MD [address] [address] PCP - General INTERNAL MEDICINE 09/29/21 documented as of this encounter
--- OUTSIDE RECORDS SUMMARY | 2024-08-03 03:26 | XMS_ITS | Encounter Summary ---
Author Organization [facility] Address [address] [place] [address] [address] Care Team Providers Care Applied Psychology Professor Name Role Phone Soledad Lucas MD Primary Care Provider [phone] Reason for Referral * Surgical (Routine) - Closed Specialty Diagnoses / Procedures Referred By Prasanth santillan Referred To Contact NEUROSURGERY Diagnoses Chronic bilateral low back pain with left-sided sciatica Procedures OFFICE/OUTPT VISIT,NEW,LEVL III OFFICE/OUTPT VISIT,NEW,LEVL IV OFFICE/OUTPT VISIT,NEW,LEVL V OFFICE/OUTPT VISIT,EST,LEVL III OFFICE/OUTPT VISIT,EST,LEVL IV OFFICE/OUTPT VISIT,EST,LEVL V Soleadd Lucas MD [address] [facility] [address] [place] [address] Phone: tel: fax: [facility] Medical [facility] Multispecialty Care - [facility] [address] [facility], [address] [place] [address] Phone: tel: fax: Referral ID Status Reason Start Date Expiration Date V isits Requested Visits Authorized [id number] Closed Specialty Services 05/10/2022 06/11/2023 1 1 Reason for Visit * Reason Onset Date Comments Referral 05/10/2022 Encounter Details Date Type Department Care Team (Late Contact Info) Description 05/10/2022 Telephone [facility] Medical [facility] Multispecialty Care - [address] [place] [address] Soledad Luacs MD [address] [address] Referral Social History Tobacco Use Types Packs/Day [...] suspected to have Coronavirus/COVID-19? No / Unsure 05/10/2022 11:25 AM CDT documented as of this encounter Progress Notes * Soledad Lucas MD - 05/10/2022 8:36 PM CDT Referral to neurosurgery placed. documented in this encounter Plan of Treatment Upcoming Encounters Date Type Department Care Team (Late st Contact Info) Description 08/19/2024 9:00 AM BEADING MACHINE OPERATOR Office Visit [facility] Multispecialty Care - [address] [place] [address] Soledad Lucas MD [address] [address] 12/16/2024 10:40 AM CDT Office Visit [facility] Multispecialty [facility] [address] [facility] [place] [address] Ramsey Oakley MD [address] [facility] [address] [place] [address] Scheduled Referrals Name Type Priority Associated Diagnoses Orde r Schedule Ambulatory referral to Neurosurgery ([facility]) Referral Routine Chronic bilateral low back pain with left-sided sciatica Ordered: 05/10/2022 documented as of this encounter Visit Diagnoses Diagnosis Chronic bilateral low back pain with left-sided sciatica- Primary documented in this encounter Additional Health Concerns Assessment Noted Time PHQ-9 Depression Total Score: 1 09/29/19 22 10:03 AM BEADING MACHINE OPERATOR documented as of this encounter Care Teams Applied Psychology Professor Relationship Specialty Start Date End Date Soledad Lucas MD [address] [address] PCP - General INTERNAL MEDICINE 09/29/21 documented as of this encounter
--- OUTSIDE RECORDS SUMMARY | 2024-08-03 03:26 | XMS_ITS | Encounter Summary ---
Author Organization [facility] Address [address] [place] [address] [address] Care Team Providers Care Wedding Makeup Artist Name Role Phone Soledad Lucas MD Primary Care Provider [phone] Reason for Visit * Reason Onset Date Comments Question 01/10/2022 Encounter Details Date Type Department Care Team (Late st Contact Info) Description 01/10/2022 Telephone [facility] Medical [facility] Multispecialty Care - [place] [address] [address] [place] [address] Soledad Lucas MD [address] [place] [address] [address] [place] [address] Question Social History Tobacco Use [...] suspected to have Coronavirus/COVID-19? No / Unsure 01/07/2022 9:42 AM CDT documented as of this encounter Progress Notes * Soledad Lucas MD - 01/10/2022 9:38 AM CDT Faxing over order for Nebulizer DME to [facility]. * Stewart Lemus - 01/10/2022 8:57 AM CDT Patient called and stated that he needs a prescription for a machine for a nebulizer. He would likefor you to call him as soon as you can to discuss. documented in this encounter Plan of Treatment Upcoming Encounters Date Type Department Care Team (Late st Contact Info) Description 08/19/2024 9:00 AM DISTRIBUTION A CLASS LINEMAN [facility] [place] [address] [address] [place] [address] Soledad Lucas MD [address] [place] [address] 12/16/2024 10:40 AM CDT Office Visit [facility] [address] [facility] [place] [address] Ramsey Oakley MD [address] [facility] [address] [place] [address] documented as of this encounter Visit Diagnoses Diagnosis Moderate persistent asthma with acute exacerbation ([facility]) Acute bronchitis, unspecified organism documented in this encounter Additional Health Concerns Assessment Noted Time PHQ-9 Depression Total Score: 1 09/29/19 22 10:03 AM DISTRIBUTION A CLASS LINEMAN documented as of this encounter Care Teams Wedding Makeup Artist Relationship Specialty Start Date End Date Soledad Lucas MD [address] [place] [address] PCP - General INTERNAL MEDICINE 09/29/21 documented as of this encounter
--- OUTSIDE RECORDS SUMMARY | 2024-08-03 03:26 | XMS_ITS | Encounter Summary ---
Author Organization [facility] Address [address] [place] [address]. [place], [place] [address] [place] [address] Care Team Providers Care Orthopedic Podiatrist Name Role Phone Soledad Lucas MD Primary Care Provider [phone] Encounter Details Date Type Department Care Team (Latest Contact Info) Description 05/10/2022 Travel Social History Tobacco Use Types Packs/Day [...] st Contact Info) Description 08/19/2024 9:00 AM EARLY INTERVENTION SCHOOL PSYCHOLOGIST Office Visit [facility] Multispecialty Care - [place] [address] [address] [place] [address] Soledad Lucas MD [address] [place] [address] [address] [place] [address] 12/16/2024 10:40 AM CDT Office Visit [facility] Medical [facility] Mult[facility]pecialty Care - [facility] [address] [facility] [address] [place] [address] Ramsey Oakley MD [address] [facility] [address] [place] [address] documented as of this encounter Visit Diagnoses Not on filedocumented in this encounter Additional Health Concerns Assessment Noted Time PHQ-9 Depression Total Score: 1 09/29/19 22 10:03 AM EARLY INTERVENTION SCHOOL PSYCHOLOGIST documented as of this encounter Care Teams Orthopedic Podiatrist Relationship Specialty Start Date End Date Soledad Lucas MD [address] [address] PCP - General INTERNAL MEDICINE 09/29/21 documented as of this encounter
--- OUTSIDE RECORDS SUMMARY | 2024-08-03 03:26 | XMS_ITS | Encounter Summary ---
Author Organization [facility] Address [address] [place] [address]. [place], [place] [address] [place] [address] Care Team Providers Care Slip Tender Name Role Phone Soledad Lucas MD Primary Care Provider [phone] Reason for Visit * Reason Onset Date Comments Follow Up Call 04/13/2022 Encounter Details Date Type Department Care Team (Late st Contact Info) Description 04/13/2022 Telephone [facility] Mult[facility]pecialty Care - [place] [address] [address] [place] [address] Soledad Lucas MD [address] [place] [address] [address] [place] [address] Follow Up Call Social History [...] as of this encounter Progress Notes * Julia Montiel MA - 04/13/2022 12:58 PM CDT Pt c/o dizziness when bending over x 3-4 days. He brought up this complaint after his appt with pcpwas completed and about to leave clinic. Orthostatics obtained and were reviewed with pcp. Pt was encouraged to monitor and push water to ensure hydration. Pt will contact office with any continued sx. documented in this encounter Plan of Treatment Upcoming Encounters Date Type Department Care Team (Late st Contact Info) Description 08/19/2024 9:00 AM SALES REPRESENTATIVE MARINE SUPPLIES [facility] [place] [address] [address] [place] [address] Soledad Lucas MD [address] [place] [address] 12/16/2024 10:40 AM CDT [facility] [address] [facility] [place] [address] Ramsey Oakley MD 3 [facility] [address] [place] [address] documented as of this encounter Visit Diagnoses Not on filedocumented in this encounter Additional Health Concerns Assessment Noted Time PHQ-9 Depression Total Score: 1 09/29/19 22 10:03 AM SALES REPRESENTATIVE [employer] documented as of this encounter Care Teams Slip Tender Relationship Specialty Start Date End Date Soledad Lucas MD [address] [place] [address] PCP - General INTERNAL MEDICINE 09/29/21 documented as of this encounter
--- OUTSIDE RECORDS SUMMARY | 2024-08-03 03:26 | XMS_ITS | Encounter Summary ---
Author Organization [facility] Address [address] [place] [address]. [place], [place] [address] [place] [address] Care Team Providers Care Straightener Hand Name Role Phone Soledad Lucas MD Primary Care Provider [phone] Encounter Details Date Type Department Care Team (Latest Contact Info) Description 05/03/2022 Travel Social History Tobacco Use Types Packs/Day [...] st Contact Info) Description 08/19/2024 9:00 AM TOP IRONER Office Visit [facility] Medical Group Multispecialty Care - [place] [address] [address] [place] [address] Soledad Lucas MD [address] [place] [address] [address] [place] [address] 12/16/2024 10:40 AM CDT Office Visit [facility] Mult[facility]pec[facility]ty Care - [facility] [address] [facility] [place] [address] Ramsey Oakley MD 3 [facility] [address] [place] [address] documented as of this encounter Visit Diagnoses Not on filedocumented in this encounter Additional Health Concerns Assessment Noted Time PHQ-9 Depression Total Score: 1 09/29/19 22 10:03 AM TOP IRONER documented as of this encounter Care Teams Straightener Hand Relationship Specialty Start Date End Date Soledad Lucas MD [address] [address] PCP - General INTERNAL MEDICINE 09/29/21 documented as of this encounter
--- OUTSIDE RECORDS SUMMARY | 2024-08-03 03:26 | XMS_ITS | Encounter Summary ---
Author Organization [facility] Address [address] [place] [address]. [place], [place] [id number] [place] [address] Care Team Providers Care Multi Craft Maintenance Technician Name Role Phone Soledad Lucas MD Primary Care Provider [phone] Reason for Referral * Imaging (Routine) - Closed Specialty Diagnoses / Procedures Referred By Prasanth santillan Referred To Contact RADIOLOGY Diagnoses Disc disease, degenerative, lumbar or lumbosacral Chronic bilateral low back pain with left-sided sciatica Procedures MRI LUMB SPINE WO CON Soledad Lucas MD [address] [facility] [address] [place] [address] Phone: tel: fax: Referral ID Status Reason Start Date Expiration Date Visits Re quested Visits Authorized [id number] Closed 04/21/2022 04/21/2023 1 1 Reason for Visit * Imaging (Routine) - Closed Specialty Diagnoses / Procedures Referred By Prasanth santillan Referred To Contact RADIOLOGY Diagnoses Chronic pain of left knee Procedures MRI KNEE LT WO CON Sidney Ruff MD [address] [place] [address] Phone: tel: fax: Referral ID Status Reason Start Date Expiration Date Visits Re quested Visits Authorized [id number] Closed 04/15/2022 05/15/2023 1 1 Encounter Details Date Type Department Care Team (Latest Contact Info) Description 05/10/2022 11:15 AM CDT - 05/10/2022 11:59 PM CDT Hospital Encounter [facility] [address] [facility] [place], [place] [id number] Sidney Ruff MD [address] [place] [address] Discharge Disposition: Home or Self Care (Routine [...] at bedtime. 90 tablet 2 10/13/2021 3 fluticasone furoate-vilantero l (BREO ELLIPTA) 200-25 MCG/INH [...] (three) times daily. 60 tablet 05/03/2022 2 methylPREDNISolon e, ABBE, (MEDROL DOSEPAK) 4 MG tabletIndications :Chronic right-sided low back pain without sciatica 6 TABLETS ON DAY ONE, 5 TABLETS DAY TWO, 4 TABLETS DAY THREE, 3 TABLETS DAY FOUR, 2 TABLETS DAY FIVE, AND 1 TABLET DAY SIX 1 each 05/04/2022 2 NEBULIZER DEVICE, DME,Indications:M oderate persistent asthma with acute exacerbation (HHS/HCC),Acute bronchitis, unspecified organism Take 1 Device by nebulization every 6 (six) hours as needed. 1 Device 01/10/2022 2 omeprazole (PRILOSEC) 40 MG capsuleIndication s:Gastroesophagea l reflux disease without esophagitis TAKE 1 CAPSULE(40 MG) BY MOUTH DAILY 30 capsule 04/19/2022 3 oxyCODONE-acetami nophen (PERCOCET) 7.5-325 MG tabletIndications :Chronic Pain Take 1 tablet by mouth daily as needed for Pain. Indications: Chronic Pain 30 tablet 05/03/2022 2 vitamin D2, ergocalciferol, 50982 UNITS capsuleIndication s:Vitamin D deficiency Take 1 capsule (50,000 Units total) by mouth weekly. 12 capsule 1 09/29/2021 3 documented as of this encounter Plan of Treatment Upcoming Encounters Date Type Department Care Team (Late st Contact Info) Description 08/19/2024 9:00 AM CUTTING AND CREASING PRESS OPERATOR Office Visit [facility] Multispecialty [place] [address] [facility] [address] [place] [address] Soledad Lucas MD [address] [facility] [address] [place] [address] 12/16/2024 10:40 AM CDT Office Visit [facility] Multispecialty Care - [facility] [address] [facility] [place] [id number] Ramsey Oakley MD [address] [facility] [address] [place] [address] documented as of this encounter Procedures Procedure Name Priority Date/Time Associated Diagnosis Comments MRI LUMB SPINE WO CON Routine 05/10/2022 12:52 PM CDT Disc disease, degenerative, lumbar or lumbosacral Chronic bilateral low back pain with left-sided sciatica MRI KNEE LT WO CON Routine 05/10/2022 12 :26 PM CDT Chronic pain of left knee documented in this encounter Results * MRI LUMB SPINE [...] spine. Patient had radiographs lumbar spine in 2007. TECHNIQUE: Mutiplanar, multisequence MRI of the lumbar [...] lumbar spine. Patient had radiographs lumbarspine in 2007. TECHNIQUE: Mutiplanar, multisequence MRI of the lumbar [...] Diagnoses Diagnosis Disc disease, degenerative, lumbar or lumbosacral Degeneration of lumbar or lumbosacral intervertebral disc Chronic bilateral low back pain with left-sided sciatica documented in this encounter Additional Health Concerns Assessment Noted Time PHQ-9 Depression Total Score: 1 09/29/19 22 10:03 AM CUTTING AND CREASING PRESS OPERATOR documented as of this encounter Care Teams Multi Craft Maintenance Technician Relationship Specialty Start Date End Date Soledad Lucas MD [address] [facility] [address] [place] [address] PCP - General INTERNAL MEDICINE 09/29/21 documented as of this encounter
--- OUTSIDE RECORDS SUMMARY | 2024-08-03 03:26 | XMS_ITS | Encounter Summary ---
Author Organization [facility] Address [address] [place] [address]. [place], [place] [id number] [place] [address] Care Team Providers Care Barge Worker Name Role Phone Soledad Lucas MD Primary Care Provider [phone] Encounter Details Date Type Department Care Team (Latest Contact Info) Description 05/13/2022 Travel Social History Tobacco Use Types Packs/Day [...] st Contact Info) Description 08/19/2024 9:00 AM REPAIR ARMATURE WINDER HELPER Office Visit [facility] Multispecialty Care - [place] [address] [address] [place] [address] Soledad Lucas MD [address] [place] [address] [address] [place] [address] 12/16/2024 10:40 AM CDT Office Visit [facility] Multispecialty Care - [facility] [address] [facility] [address] [place] [address] Ramsey Oakley MD [address] [facility] [address] [place] [address] documented as of this encounter Visit Diagnoses Not on filedocumented in this encounter Additional Health Concerns Assessment Noted Time PHQ-9 Depression Total Score: 1 09/29/19 22 10:03 AM REPAIR ARMATURE WINDER HELPER documented as of this encounter Care Teams Barge Worker Relationship Specialty Start Date End Date Soledad Lucas MD [address] [address] PCP - General INTERNAL MEDICINE 09/29/21 documented as of this encounter
--- OUTSIDE RECORDS SUMMARY | 2024-08-03 03:26 | XMS_ITS | Encounter Summary ---
Author Organization [facility] Address [address] [place] [address]. [address] [address] Care Team Providers Care Commercial Lawn Specialist Name Role Phone Soledad Lucas MD Primary Care Provider Reason for Referral * (Routine) - Closed Specialty Diagnoses / Procedures Referred By Prasanth santillan Referred To Contact Diagnoses Effusion of right knee Procedures Joint Aspiration[place] [address] [place] [address] Phone: tel: fax: Referral ID Status Reason Start Date Expiration Date Visits Re quested Visits Authorized [id number] Closed 03/25/2022 03/25/2023 1 1 Reason for Visit * Reason Comments Other Patient is here for right knee drainage Knee Pain Encounter Details Date Type Department Care Team (Latest Contact Info) Description 03/25/2022 2:50 PM CDT Office Visit [facility] Medical Group Multispecialty Care - [place] [address] [address] [place] [address] Soledad Lucas MD [facility] [address] [phone] Other (Patient is here for right knee drainage); Knee Pain Social History Tobacco Use Types Packs/Day [...] PM CDT documented as of this encounter Last Filed Vital Signs Vital Sign Reading Time Taken Comments Blood Pressure 106/66 03/25/2022 2:50 PM CDT Pulse 78 03/25/2022 2:50 PM CDT Temperature 36.9 ??C (98.4 ??F) 03/25/2022 2:50 PM CD T Respiratory Rate 18 03/25/2022 2:50 PM CDT Oxygen Saturation 98% 03/25/2022 2:50 PM CDT Inhaled Oxygen Concentration - - Weight 98.5 kg (217 lb 3.2 oz) 03/25/2022 2:50 P M CDT Height 185.4 cm (6' 1 ) 03/25/2022 2:50 PM CDT Body Mass Index 28.66 03/25/2022 2:50 PM CDT documented in this encounter Patient Instructions * Patient Instructions* Soledad Lucas MD - 03/25/2022 2:50 PM CDT Follow up in 3 months. documented in this encounter Progress Notes * Soledad Lucas MD - 03/25/2022 2:50 PM CDTAssociated Order(s): Joint Aspiration/Injection Post-Procedure Diagnose(s): Effusion of right knee Summary: Follow-up notes Images from the original note were not included. Internal Medicine Outpatient Progress Note CC: Other (Patient is here for right knee drainage) and Knee Pain HPI: Juliet Stout is a 60-year-old male who presents for follow-up for right knee osteoarthritis with significant joint effusion. ??Of note, patient's status post right knee surgery and right knee arthroscopy done many months ago. ??Recently, patient had complained about worsening bilateral knee pain and has since undergone left knee joint effusion drainage. ??He comes in today for follow-up for his right knee. X-ray of the right joint showed significant large right joint effusion. ??Currently rates his pain as moderate to severe. ??He does not do NSAIDs due to history of asthma. ??He is currently on Percocet 7.5-325 mg tablets to help with pain. ??He currently follows with orthopedics and surgery was recommended; patient declined. We did discuss seeing orthopedics again to discuss recurrent knee joint effusion and possible bilateral knee replacement versus arthroscopy. Denies any recentfalls or near falls. No joint redness. Problem List Patient Active Problem List Diagnosis [...] Outpatient Medications Marked as Taking for the 03/25/22 encounter (Office Visit) with Soledad Lucas MD [...] by mouth nightly at bedtime. 30 tablet 0 ??? cyclobenzaprine 10 MG tablet Take 10 mg by mouth 3 (three) times daily as needed for Muscle Spasms. ??? fluticasone furoate-vilanterol (BREO ELLIPTA) 200-25 MCG/INH [...] 6 (six) hours as needed. 1 Device 0 ??? omeprazole 40 MG capsule Take 1 capsule (40 mg total) by mouth daily. 30 capsule 0 ??? oxyCODONE-acetaminophen (PERCOCET) 7.5-325 MG tablet Take 1 tablet by mouth daily as needed forPain. Indications: Chronic Pain 30 tablet 0 ??? [DISCONTINUED] oxyCODONE-acetaminophen (PERCOCET) 7.5-325 MG tablet Take 1 tablet by mouth every 8 (eight) hours as needed for Pain. Indications: Chronic Pain 21 tablet 0 ??? vitamin D2, ergocalciferol, 81815 UNITS capsule Take 1 capsule (50,000 Units total) by mouth weekly. 12 capsule 1 Current Facility-Administered Medications for the 03/25/22 encounter (Office Visit) with Soledad Lucas MD Medication Dose Route Frequency Provider Last Rate Last Admin ??? BUpivacaine (PF) (MARCAINE) 0.25 % injection 10 mL 10 mL Intrapleural Once Soledad Lucas MD ??? triamcinolone acetonide (KENALOG-40) injection 40 mg 40 mg Intramuscular Once Soledad Lucas MD Allergies: Allergies Allergen [...] neck pain. Neurological: Negative. Objective: Filed Vitals: 03/25/22 1450 BP: 106/66 Pulse: 78 Resp: 18 Temp: 98.4 ??F (36.9 ??C) TempSrc: Temporal SpO2: 98% Weight: 98.5 kg (217 lb 3.2 oz) Height: 6' 1 (1.854 m) Body mass index is 28.66 kg/m??. General alert, cooperative, no distress HEENT [...] ICD-9-CM SNOMED CT(R) 1. Primary osteoarthritis of right knee M17.11 715.16 OSTEOARTHRITIS OF RIGHT KNEE JOINT Ambulatoryreferral to Orthopedics (OTHER) oxyCODONE-acetaminophen (PERCOCET) 7.5-325 MG tablet CRYSTALS, BODY FLUID CRYSTALS, BODY FLUID 2. Effusion of right knee M25.461 719.06 EFFUSION OF RIGHT KNEE JOINT BUpivacaine (PF) (MARCAINE) 0.25 % injection 10 mL triamcinolone acetonide (KENALOG-40) injection 40 mg DRAIN/INJECT LARGE JOINT/BURSA CULTURE, ROUTINE W/ GRAM STAIN (SMD/SJS/SFL ONLY) CELL COUNT W/ DIFF BODY FLUID CELL COUNT W/ DIFF BODY FLUID CULTURE, ROUTINE W/ GRAM STAIN (SMD/SJS/SFL ONLY) Ambulatory referral to Orthopedics (OTHER) CRYSTALS, BODY FLUID CRYSTALS, BODY FLUID 3. Primary osteoarthritis of both knees M17.0 715.16 PRIMARY GONARTHROSIS, BILATERAL 1. Primary osteoarthritis of right knee -Large joint effusion noted on right knee x-ray. Patient status post right knee replacement done many months ago on the same knee joint. I discussed with patient that it will be important to get repeat x-rays if present both knees given recurrence of joint effusions. Patient agreeable. Patient still with significant joint pain given enlarged joint, no redness or warmth - Ambulatory referral to Orthopedics (OTHER) - oxyCODONE-acetaminophen (PERCOCET) 7.5-325 MG tablet; Take 1 tablet by mouth daily as needed for Pain. Indications: Chronic Pain Dispense: 30 tablet; Refill: 0 2. Effusion of right knee - BUpivacaine (PF) (MARCAINE) 0.25 % injection 10 mL - triamcinolone acetonide (KENALOG-40) injection 40 mg - DRAIN/INJECT LARGE JOINT/BURSA - CULTURE, ROUTINE W/ GRAM STAIN (SMD/SJS/SFL ONLY); Future - CELL COUNT W/ DIFF BODY FLUID; Future - CELL COUNT W/ DIFF BODY FLUID - CULTURE, ROUTINE W/ GRAM STAIN (SMD/SJS/SFL ONLY) - joint fluid for crystals - Ambulatory referral to Orthopedics (OTHER) Joint Aspiration/Injection Date/Time: 03/25/2022 4:06 PM Performed by: Soledad Lucas MD Authorized by: Soledad Lucas MD Indications: joint swelling and pain Body area: knee Local anesthesia used: yes Anesthesia: local infiltration Anesthesia: Local anesthesia used: yes Local Anesthetic: bupivacaine 0.25% without epinephrine Sedation: Patient sedated: no Preparation: Patient was prepped and draped in the usual sterile fashion. Needle size: 18 G Ultrasound guidance: no Approach: anterior Aspirate: serous and yellow Triamcinolone amount (mg): 40mg. Bupivacaine 0.25% amount (ml): 10cc. Patient tolerance: patient tolerated the procedure well with no immediate complications Comments: 60 cc of serous drained from just in the right knee joint on the lateral side. Counseling given: Yes Comment: counsled by Dr Lucas I spent 30 minutes today reviewing the patient's medical record, obtaining history, performing an exam, ordering medications, tests, and/or procedures, documenting in the medical record, referring and/or communicating with other health care providers, counseling and educating the patient/family/caregiver, reviewing and communicating test results and coordination of care. I spent an additional 10 minutes performing the procedure. Side effects and less common but more severe adverse effects of recommended medical therapies were explained to the patient. Follow up office visit in 3 months. Requested MyChart or telephone follow up prn if symptoms change, worsen, or persist, or if side effect of treatment is experienced. DRAGON: This dictation was at least in part performed using VeraLight and there may be some inherent flaws in this rabbit dresser due to the nature of this program. Soledad Lucas MD Internal Medicine [facility], [facility] [place]. documented in this encounter Plan of Treatment Upcoming Encounters Date Type Department Care Team (Late st Contact Info) Description 08/19/2024 9:00 AM HEMATOLOGIST [facility] [place] [address] [address] [place] [address] Soledad Lucas MD [address] [place] [address] 12/16/2024 10:40 AM CDT Office Visit [facility]ty [facility] - [address] [place] [address] Ramsey Oakley MD [address] [facility] [address] [place] [address] Scheduled Orders Name Type Priority Associated Diagnoses Orde r Schedule DRAIN/INJECT LARGE JOINT/BURSA Procedures Routine Effusion of right knee Ordered: 03/25/2022 documented as of this encounter Procedures Procedure Name Priority Date/Time Associated Diagnosis Comments JOINT ASPIRATION/INJECTIO N Routine 03/25/2022 4:06 PM CDT Effusion of right knee documented in this encounter Results * Joint Aspiration/Injection (03/25/2022 4:06 PM CDT) Narrative Soledad Lucas MD - 03/25/2022 4:06 PM CDT Soledad Lucas MD ? 03/25/2022 ??4:17 PM Joint Aspiration/Injection Date/Time: 03/25/2022 4:06 PM Performed by: Soledad Lucas MD Authorized by: Soledad Lucas MD Indications: joint swelling and pain Body area: knee Local anesthesia used: yes Anesthesia: local infiltration Anesthesia: Local anesthesia used: yes Local Anesthetic: bupivacaine 0.25% without epinephrine Sedation: Patient sedated: no Preparation: Patient was prepped and draped in the usual sterile fashion. Needle size: 18 G Ultrasound guidance: no Approach: anterior Aspirate: serous and yellow Triamcinolone amount (mg): 40mg. Bupivacaine 0.25% amount (ml): 10cc. Patient tolerance: patient tolerated the procedure well with no immediate complications Comments: 60 cc of serous drained from just in the right knee joint on the lateral side. us Soledad Lucas MD PROCEDURE/MINOR SURGICAL ORDERAB LES Final Result documented in this encounter Visit Diagnoses Diagnosis Primary osteoarthritis of right knee- Primary Primary localized osteoarthrosis, lower leg Effusion of right knee Effusion of lower leg joint documented in this encounter Additional Health Concerns Assessment Noted Time PHQ-9 Depression Total Score: 1 09/29/19 22 10:03 AM HEMATOLOGIST documented as of this encounter Care Teams Commercial Lawn Specialist Relationship Specialty Start Date End Date Soledad Lucas MD [address] [facility] [address] [place] [address] PCP - General INTERNAL MEDICINE 09/29/21 documented as of this encounter
--- OUTSIDE RECORDS SUMMARY | 2024-08-03 03:26 | XMS_ITS | Encounter Summary ---
Author Organization [facility] Address [address] [place] [address]. [place], [place] [address] [place] [address] Care Team Providers Care School Secretary Name Role Phone Soledad Lucas MD Primary Care Provider [phone] Reason for Visit * Reason Onset Date Comments Reschedule 02/18/2022 Encounter Details Date Type Department Care Team (Late st Contact Info) Description 02/18/2022 Telephone [facility] Medical Group Multispecialty Care - [place] [address] [address] [place] [address] Soledad Lucas MD [address] [place] [address] [place], [place] [id number] Reschedule Social History Tobacco Use Types Packs/Day [...] of this encounter Progress Notes * Stewart Lemus - 02/18/2022 9:14 AM CDT Patient called and rescheduled for 02/25/22 @ 10:40am. documented in this encounter Plan of Treatment Upcoming Encounters Date Type Department Care Team (Late st Contact Info) Description 08/19/2024 9:00 AM DEVELOPER SUPPORT ENGINEER [facility] [place] [address] [address] [place] [address] Soledad Lucas MD [address] [place] [address] 12/16/2024 10:40 AM CDT [facility] [address] [facility] [address] [place] [address] Ramsey Oakley MD [address] [facility] [address] [place] [address] documented as of this encounter Visit Diagnoses Not on filedocumented in this encounter Additional Health Concerns Assessment Noted Time PHQ-9 Depression Total Score: 1 09/29/19 10:03 AM DEVELOPER SUPPORT ENGINEER documented as of this encounter Care Teams School Secretary Relationship Specialty Start Date End Date Soledad Lucas MD [address] [place] [address] PCP - General INTERNAL MEDICINE 09/29/21 documented as of this encounter
--- OUTSIDE RECORDS SUMMARY | 2024-08-03 03:26 | XMS_ITS | Encounter Summary ---
Author Organization [facility] Address [address] [place] [address]. [place], [place] [address] [place] [address] Care Team Providers Care Automatic Vulcanizing Operator Name Role Phone Soledad Lucas MD Primary Care Provider [phone] Reason for Referral * Imaging (Routine) - Closed Specialty Diagnoses / Procedures Referred By Prasanth santillan Referred To Contact RADIOLOGY Diagnoses Chronic pain of left knee Procedures MRI KNEE LT WO CON Anatoliy Sanz MD [address] [place] [address] Phone: tel: fax: Referral ID Status Reason Start Date Expiration Date Visits Re quested Visits Authorized [id number] Closed 04/15/2022 05/15/2023 1 1 Reason for Visit * Reason Comments Follow Up Lt knee pain * Consultation/Treatment (Routine) - Closed Specialty Diagnoses / Procedures Referred By Prasanth santillan Referred To Contact ORTHOPAEDICS Diagnoses Primary osteoarthritis of both knees Procedures OFFICE/OUTPT VISIT,NEW,LEVL III OFFICE/OUTPT VISIT,NEW,LEVL IV OFFICE/OUTPT VISIT,NEW,LEVL V OFFICE/OUTPT VISIT,EST,LEVL III OFFICE/OUTPT VISIT,EST,LEVL IV OFFICE/OUTPT VISIT,EST,LEVL V Soledad Lucas MD [address] [address] Phone: tel: fax: Anatoliy Sanz MD [address] [place] [address] Phone: tel: fax: Referral ID Status Reason Start Date Expiration Date V isits Requested Visits Authorized [id number] Closed Specialty Services 04/07/2022 10/04/2022 6 6 Encounter Details Date Type Department Care Team (Late st Contact Info) Description 04/15/2022 9:40 AM CDT Office Visit [facility] Orthopedic & Sports Medicine - [place] [address] [place], [place] [id number] Anatoliy Sanz MD [address] [place] [address] Follow Up (Lt knee pain/) Social History Tobacco Use Types Packs/Day Years [...] Sign Reading Time Taken Comments Blood Pressure 133/80 04/15/2022 9:48 AM CDT Pulse 68 04/15/2022 9:48 AM CDT Temperature - - Respiratory Rate - - Oxygen Saturation - - Inhaled Oxygen Concentration - - Weight 99.1 kg (218 lb 6.4 oz) 04/15/2022 9:48 A M CDT Height 185.4 cm (6' 1 ) 04/15/2022 9:48 AM CDT Body Mass Index 28.81 04/15/2022 9:48 AM CDT documented in this encounter Progress Notes * Anatoliy Sanz MD - 04/15/2022 9:40 AM CDT Images from the original note were not included. Office Visit Reason for Visit: Follow Up (Lt knee pain/) History of Present Illness: This is a 60-year-old male with bilateral knee pain related osteoarthritis is known to my clinic. He was previously seen for his left knee pain several months ago and underwent a left knee intra-articular steroid injection which helped improve some of his pain. Over the last several months to years, he has had intermittent effusions. More specifically, over the last several months he is undergoneseveral rounds of aspiration and injections which have helped temporarily improve his pain. He justrecently saw his PCM who performed an arthrocentesis of approximately 100 cc of fluid and provided him a steroid shot. He feels pretty well today but notes that knee pain continues to get worse and interfere with some daily activities. He is failed respond to conservative care such as activity modification, physical therapy, medical management and injection therapy. He is curious about surgical intervention, specifically asking questions about partial versus total knee replacement. Denies other significant changes in his health. Vitals: Filed Vitals: 04/15/22 0948 BP: 133/80 Pulse: 68 Weight: 99.1 kg (218 lb 6.4 oz) Height: 6' 1 (1.854 m) Physical Exam: Physical examination left knee demonstrates no gross deformities. There is effusion and swelling. Range of motion is 0 to 130 degrees. He stable to varus valgus stress at 0 and 30 degrees. He has a negative anterior and posterior drawer exam. He has medial joint line tenderness. He is nontender along his lateral joint line. He is neurovascular intact distally. Imaging: Radiographs of left knee reviewed which demonstrate medial dominant osteoarthritic findings consistent with joint space loss and osteophyte formation. The lateral joint appears to be fairly well preserved. Assessment/Plan: 60-year-old male with chronic left knee pain related to osteoarthritis. This appears to be medial predominant osteoarthritis. Given his relatively localized symptoms, he could be a candidate for partial knee replacement. Regardless, the patient is interested in surgical intervention at this time paola has chronic pain that is failed to improve with conservative care. We did brief discussion regarding partial versus total knee replacements and convalescence associated both of them. Prior to coming up with surgical plan, I think is reasonable to obtain an MRI of his left knee to ensure he be a candidate for the procedure. He is a candidate for partial knee replacement, and likely refer him toDr. Lr for further care. Otherwise if he is planning on a total knee, we can plan for scheduling that procedure at his earliest convenience. I will touch base with him after obtaining the MRI to discuss the results. With regards to the intermittent effusions, it appears that this is likely related to the primary osteoarthritis. Is not uncommon to have recurrent effusions related osteoarthritis. If he has other associated joints that are involved with pain and swelling, it would not be unreasonable to refer himto rheumatology to rule out some sort of rheumatological condition that could be contributing to these recurrent effusions. Otherwise I do not have any specific treatment that will help improve theseeffusions and do not find that intermittent aspiration is a feasible option going forward as it does not appear to have been helpful over the last several months. 30 Minutes spent total on patient encounter today with review of chart and studies, interval history and physical exam, decision making process, therapeutic/diagnostic procedures, educational and prevention counseling. Encounter Diagnose(s) ICD-10-CM ICD-9-CM SNOMED CT(R) 1. Chronic pain of left knee M25.562 719.46 PAIN OF KNEE REGION MRI KNEE LT WO CON G89.29 338.29 Outpatient Medications Marked as Taking for the 04/15/22 encounter (Office Visit) with Anatoliy Sanz MD Medication Sig Dispense Refill ??? albuterol (2.5 MG/3ML) 0.083% nebulizer solution Take 3 mLs (2.5 mg total) by nebulization every 6 (six) hours as needed for Wheezing. 360 mL 3 ??? albuterol sulfate HFA 108 (90 Base) [...] nightly at bedtime. 30 tablet 0 ??? fluticasone furoate-vilanterol (BREO ELLIPTA) 200-25 MCG/INH inhaler Inhale 1 puff into the lungs daily. 60 each 2 ??? losartan-hydroCHLOROthiazide 50-12.5 MG tablet Take 1 tablet by mouth daily. 90 tablet 1 ??? metFORMIN (GLUCOPHAGE) 500 MG tablet Take 1 tablet (500 mg total) by mouth daily with breakfast. 60 tablet 3 ??? methocarbamol (ROBAXIN) 750 MG Tab Take 1 tablet (750 mg total) by mouth 3 (three) times daily as needed. 60 tablet 1 ??? NEBULIZER DEVICE, DME, Take 1 Device by nebulization every 6 (six) hours as needed. 1 Device 0 ??? omeprazole 40 MG capsule Take 1 capsule (40 mg total) by mouth daily. 30 capsule 0 ??? oxyCODONE-acetaminophen (PERCOCET) 7.5-325 MG tablet Take 1 tablet by mouth daily as needed forPain. Indications: Chronic Pain 30 tablet 0 ??? vitamin D2, ergocalciferol, 94461 UNITS capsule Take 1 capsule (50,000 Units total) by mouth weekly. 12 capsule 1 Current Facility-Administered Medications for the 04/15/22 encounter (Office Visit) with Anatoliy Sanz MD Medication Dose Route Frequency Provider Last Rate Last Admin ??? BUpivacaine (PF) (MARCAINE) 0.25 % injection 5 mL 5 mL Intrapleural Once Soledad Lucas MD ??? triamcinolone acetonide (KENALOG-40) injection 40 mg 40 mg Intramuscular Once MD ANATOLIY Vaughn MD 04/15/2022 documented in this encounter Plan of Treatment Upcoming Encounters Date Type Department Care Team (Late st Contact Info) Description 08/19/2024 9:00 AM REPAIRER HANDTOOLS Office Visit [facility] Multispecialty Care - [place] [address] [address] [place] [address] Soledad Lucas MD [address] [place] [address] 12/16/2024 10:40 AM CDT Office Visit [facility] Multispecialty Care - [facility] [address] [facility] [address] [place] [address] Ramsey Oakley MD [address] [facility] [address] [place] [address] documented as of this encounter Procedures Procedure Name Priority Date/Time Associated Diagnosis Comments MRI KNEE LT WO CON Routine 05/10/2022 12 :26 PM CDT Chronic pain of left knee documented in this encounter Results * MRI KNEE LT WO CON (05/10/2022 12:26 PM CDT) Anatomical Region Laterality Modality Knee Magnetic Resonan ce 05/11/2022 1:30 PM CDT Impressions 05/11/2022 1:41 PM CDT IMPRESSION: 1. Tricompartmental osteoarthritis with articular cartilage loss/degeneration as above. 2. Extensive degeneration and degenerative tearing of both medial and lateral menisci as described above with associated extrusion of the bodies of both menisci. 3. ??Large joint effusion with numerous small foci of low to intermediate signal intensity likely reflecting loose bodies in the joint. ??Synovial chondromatosis is felt to be less likely. 4. ??Chronic sprains of the anterior and posterior cruciate ligaments, but no fluid-filled tear is seen. 5. ??Ganglion along the posterior aspect of the posterior cruciate ligament as well as an intraosseous ganglion underlying the tibial insertion of the posterior cruciate ligament. 6. ??Minimal patellar tendinosis but no fluid-filled tear is seen. Referred By: ANATOLIY SANZ Interpreted By: Sincere Ramsey DO, 05/11/2022 1:30 PM Narrative 05/11/2022 1:41 PM CDT MRI of the left knee without contrast Exam Date: 05/10/2022. History: Chronic knee pain, degenerative disease on radiographs. Comparison Studies: Left knee radiographs 10/06/2021. TECHNIQUE: Multiplanar, multisequence MR imaging of the left knee was performed without intravenous contrast. FINDINGS: * ??Menisci: There is extensive degeneration and degenerative tearing throughout both the medial and lateral menisci, involving the anterior horns, bodies, and posterior horns with degeneration and degenerative tearing extending into the root of both posterior horns as well as the anterior horn of the lateral meniscus. ??There is associated extrusion of the bodies of both menisci. * ??Ligaments: Some intact fibers are visualized extending from the lateral femoral condyle to the tibial spines, reflecting intact anterior cruciate ligament fibers, but these are intermediate in signal intensity, suggesting chronic sprain. ??The posterior cruciate ligament is intact but appears thickened along its tibial insertion, reflecting chronic sprain. ??A large focus of near fluid signal intensity is noted posterior to the posterior cruciate ligament, reflecting a ganglion. ??There is also an intraosseous ganglion underlying the tibial insertion of the posterior cruciate ligament. ??The medial collateral ligament is intact. ??The iliotibial band, lateral collateral ligament proper, biceps femoris tendon, and popliteus tendon are intact. * ??Extensor Mechanism: The distal quadriceps tendon is intact. ??There is minimal intermediate signal intensity within the patellar tendon, reflecting minimal tendinosis, but no fluid-filled tear is seen. ??The distal quadriceps tendon is intact. ??The medial and lateral patellar retinacula are intact. * ??Joint: There is a large joint effusion. ??Numerous small foci of low to intermediate signal intensity likely reflect loose bodies in the joint versus synovial chondromatosis. ??No ossification is seen on comparison radiographs to suggest synovial osteochondromatosis. * ??Articular Cartilage: There are tricompartmental osteophytes. ??The central weightbearing zones of the medial and lateral femoral condyles and tibial plateaus are devoid of articular cartilage. ??There is associated degenerative subchondral marrow signal intensity in the medial and lateral femoral condyles and tibial plateaus. ??There is full-thickness loss of articular cartilage along the lateral patellar facet and patellar apex as well as along the femoral trochlea. ??There is mild articular cartilage degeneration along the medial patellar facet. * ??Miscellaneous: There is no marrow signal abnormality to suggest acute fracture or contusion. ??Mild to moderate osteoarthritis affects the proximal tibiofibular joint. Procedure Note Sincere Ramsey, DO - 05/11/2022 MRI of the left knee without contrast Exam Date: 05/10/2022. History: Chronic knee pain, degenerative disease on radiographs. Comparison Studies: Left knee radiographs 10/06/2021. TECHNIQUE: Multiplanar, multisequence MR imaging of the left knee wasperformed without intravenous contrast. FINDINGS: * Menisci: There is extensive degeneration and degenerative tearingthroughout both the medial and lateral menisci, involving the anteriorhorns, bodies, and posterior horns with degeneration and degenerativetearing extending into the root of both posterior horns as well as theanterior horn of the lateral meniscus. There is associated extrusion ofthe bodies of both menisci. * Ligaments: Some intact fibers are visualized extending from the lateralfemoral condyle to the tibial spines, reflecting intact anterior cruciateligament fibers, but these are intermediate in signal intensity,suggesting chronic sprain. The posterior cruciate ligament is intact butappears thickened along its tibial insertion, reflecting chronic sprain.A large focus of near fluid signal intensity is noted posterior to theposterior cruciate ligament, reflecting a ganglion. There is also anintraosseous ganglion underlying the tibial insertion of the posteriorcruciate ligament. The medial collateral ligament is intact. Theiliotibial band, lateral collateral ligament proper, biceps femoristendon, and popliteus tendon are intact. * Extensor Mechanism: The distal quadriceps tendon is intact. There isminimal intermediate signal intensity within the patellar tendon,reflecting minimal tendinosis, but no fluid-filled tear is seen. Thedistal quadriceps tendon is intact. The medial and lateral patellarretinacula are intact. * Joint: There is a large joint effusion. Numerous small foci of low tointermediate signal intensity likely reflect loose bodies in the jointversus synovial chondromatosis. No ossification is seen on comparisonradiographs to suggest synovial osteochondromatosis. * Articular Cartilage: There are tricompartmental osteophytes. Thecentral weightbearing zones of the medial and lateral femoral condyles andtibial plateaus are devoid of articular cartilage. There is associateddegenerative subchondral marrow signal intensity in the medial and lateralfemoral condyles and tibial plateaus. There is full-thickness loss ofarticular cartilage along the lateral patellar facet and patellar apex aswell as along the femoral trochlea. There is mild articular cartilagedegeneration along the medial patellar facet. * Miscellaneous: There is no marrow signal abnormality to suggest acutefracture or contusion. Mild to moderate osteoarthritis affects theproximal tibiofibular joint. IMPRESSION: 1. Tricompartmental osteoarthritis with articular cartilageloss/degeneration as above. 2. Extensive degeneration and degenerative tearing of both medial andlateral menisci as described above with associated extrusion of the bodiesof both menisci. 3. Large joint effusion with numerous small foci of low to intermediatesignal intensity likely reflecting loose bodies in the joint. Synovialchondromatosis is felt to be less likely. 4. Chronic sprains of the anterior and posterior cruciate ligaments, butno fluid-filled tear is seen. 5. Ganglion along the posterior aspect of the posterior cruciate ligamentas well as an intraosseous ganglion underlying the tibial insertion of theposterior cruciate ligament. 6. Minimal patellar tendinosis but no fluid-filled tear is seen. Referred By: ANATOLIY SANZ Interpreted By: Sincere Ramsey DO, 05/11/2022 1:30 PM Anatoliy Sanz MD MRI Final Result documented in this encounter Visit Diagnoses Diagnosis Chronic pain of left knee- Primary Pain in joint, lower leg Disc disease, degenerative, lumbar or lumbosacral Degeneration of lumbar or lumbosacral intervertebral disc Chronic bilateral low back pain with left-sided sciatica documented in this encounter Additional Health Concerns Assessment Noted Time PHQ-9 Depression Total Score: 1 09/29/19 22 10:03 AM REPAIRER HANDTOOLS documented as of this encounter Care Teams Automatic Vulcanizing Operator Relationship Specialty Start Date End Date Soledad Lucas MD [address] [address] PCP - General INTERNAL MEDICINE 09/29/21 documented as of this encounter
--- OUTSIDE RECORDS SUMMARY | 2024-08-03 03:26 | XMS_ITS | Encounter Summary ---
Author Organization [facility] Address [address] [place] [address]. [address] [address] Care Team Providers Care Radio Adjuster Name Role Phone Soledad Lucas MD Primary Care Provider [phone] Reason for Visit * Reason Onset Date Comments Appointment Request 03/28/2022 Encounter Details Date Type Department Care Team (Late st Contact Info) Description 03/28/2022 Telephone [facility] Multispecialty Care - [place] [address] [address] [place] [address] Soledad Lucas MD [address] [place] [address] [address] [place] [address] Appointment Request Social History Tobacco Use Types [...] Progress Notes * Soledad Lucas MD - 03/28/2022 11:31 AM CDT Pharmacy called. Prescription available for patient to olive picker-limited quantity. Patient notified. All questions answered for patient. * Lois Mei MA - 03/28/2022 10:27 AM CDT Called patient and he is set up for his physical. Patient said he did not get his pain meds and right now he is in a lot of pain. He would like to speak with you. documented in this encounter Plan of Treatment Upcoming Encounters Date Type Department Care Team (Late st Contact Info) Description 08/19/2024 9:00 AM TUMBLE TAILSTOCK TURRET LATHE OPERATOR Office Visit [facility] Multispecialty Care - [place] [address] [address] [place] [address] Soledad Lucas MD [facility] [address] 12/16/2024 10:40 AM CDT Office Visit [facility] Multispecialty Care - [facility] [address] [facility] [address] [place] [id number] Ramsey Oakley MD [address] [facility] [address] [place] [address] documented as of this encounter Visit Diagnoses Not on filedocumented in this encounter Additional Health Concerns Assessment Noted Time PHQ-9 Depression Total Score: 1 09/29/19 22 10:03 AM TUMBLE TAILSTOCK TURRET LATHE OPERATOR documented as of this encounter Care Teams Radio Adjuster Relationship Specialty Start Date End Date Soledad Lucas MD [address] [place] [address] PCP - General INTERNAL MEDICINE 09/29/21 documented as of this encounter
--- OUTSIDE RECORDS SUMMARY | 2024-08-03 03:26 | XMS_ITS | Encounter Summary ---
Author Organization [facility] Address [address] [place] [address]. [place], [place] [address] [place] [address] Care Team Providers Care Real Estate Sales Supervisor Name Role Phone Soledad Lucas MD Primary Care Provider [phone] Reason for Visit * Reason Onset Date Comments Reschedule 02/15/2022 Encounter Details Date Type Department Care Team (Late st Contact Info) Description 02/15/2022 Telephone [facility] Medical Group Multispecialty Care - [place] [address] [address] [place] [address] Soledad Lucas MD [address] [place] [address] [address] [place], [place] [id number] Reschedule Social History Tobacco Use Types Packs/Day [...] of this encounter Progress Notes * Stewart Piercechild - 02/15/2022 10:54 AM CDT Patient called and rescheduled appointment for 02/18/22 @ 10:40am. documented in this encounter Plan of Treatment Upcoming Encounters Date Type Department Care Team (Late st Contact Info) Description 08/19/2024 9:00 AM FEATURE WRITER [facility] - [place] [address] [address] [place] [address] Soledad Lucas MD [address] [place] [address] 12/16/2024 10:40 AM CDT [facility] [address] [facility] [place] [address] Ramsey Oakley MD [address] [facility] [address] [place] [address] documented as of this encounter Visit Diagnoses Not on filedocumented in this encounter Additional Health Concerns Assessment Noted Time PHQ-9 Depression Total Score: 1 09/29/19 10:03 AM FEATURE WRITER documented as of this encounter Care Teams Real Estate Sales Supervisor Relationship Specialty Start Date End Date Soledad Lucas MD [address] [place] [address] PCP - General INTERNAL MEDICINE 09/29/21 documented as of this encounter
--- OUTSIDE RECORDS SUMMARY | 2024-08-03 03:26 | XMS_ITS | Encounter Summary ---
Author Organization [facility] Address [address] [place] [address]. [place], [place] [address] [place] [address] Care Team Providers Care Cryptographic Machine Operator Name Role Phone Soledad Lucas MD Primary Care Provider [phone] Encounter Details Date Type Department Care Team (Latest Contact Info) Description 01/11/2022 Scan HEALTH INFO SRVCS Scanned, Documents Social History Tobacco Use Types Packs/Day Years [...] st Contact Info) Description 08/19/2024 9:00 AM CLINICAL TRIALS SPECIALIST Office Visit [facility] Multispecialty Care - [place] [address] [address] [place] [address] Soledad Lucas MD [address] [place] [address] [address] [place] [address] 12/16/2024 10:40 AM CDT Office Visit [facility] Multispecialty Care - [facility] [address] [facility] [place] [address] Ramsey Oakley MD [address] [facility] [address] [place] [address] documented as of this encounter Visit Diagnoses Not on filedocumented in this encounter Additional Health Concerns Assessment Noted Time PHQ-9 Depression Total Score: 1 09/29/19 22 10:03 AM CLINICAL TRIALS SPECIALIST documented as of this encounter Care Teams Cryptographic Machine Operator Relationship Specialty Start Date End Date Soledad Lucas MD [address] [facility] [address] [place] [address] PCP - General INTERNAL MEDICINE 09/29/21 documented as of this encounter
--- OUTSIDE RECORDS SUMMARY | 2024-08-03 03:26 | XMS_ITS | Encounter Summary ---
Author Organization [facility] Address [address] [place] [address]. [place], [place] [address] [place] [address] Care Team Providers Care Marine Insurance Claim Examiner Name Role Phone Soledad Lucas MD Primary Care Provider [phone] Reason for Referral * (Routine) - Closed Specialty Diagnoses / Procedures Referred By Prasanth santillan Referred To Contact Diagnoses Primary osteoarthritis of left knee Effusion of bursa of left knee Procedures Joint Aspiration/Injection Soledad Lucas MD [address] [address] Phone: tel: fax: Referral ID Status Reason Start Date Expiration Date Visits Re quested Visits Authorized [id number] Closed 03/02/2022 03/02/2023 1 1 Reason for Visit * Reason Comments Knee Pain Bilaterally, left > right Back Pain Lower back/upper but tock Encounter Details Date Type Department Care Team (Latest Contact Info) Description 03/02/2022 9:00 AM CDT Office Visit [facility] Multispecialty Care - [address] [place] [address] [address] [place] [address] Soledad Lucas MD [address] [id number] Knee Pain (Bilaterally, left > right); Back Pain (Lower back/upper buttock) Social History Tobacco Use Types Packs/Day Years [...] Sign Reading Time Taken Comments Blood Pressure 128/76 03/02/2022 9:43 AM CDT Pulse 71 03/02/2022 8:55 AM CDT Temperature 36.2 ??C (97.1 ??F) 03/02/2022 8:55 AM CD T Respiratory Rate 20 03/02/2022 8:55 AM CDT Oxygen Saturation 99% 03/02/2022 8:55 AM CDT Inhaled Oxygen Concentration - - Weight 100.7 kg (222 lb) 03/02/2022 8:55 AM CDT Height 185.4 cm (6' 1 ) 03/02/2022 8:55 AM CDT Body Mass Index 29.29 03/02/2022 8:55 AM CDT documented in this encounter Patient Instructions * Patient Instructions* Soledad Lucas MD - 03/02/2022 9:00 AM CDT Follow up in 2 weeks for your right knee joint. * Attachments The following attachments cannot be sent through Care Everywhere. * Knee Pain Discharge Instructions (Botswanan) documented in this encounter Progress Notes * Soledad Lucas MD - 03/02/2022 9:00 AM CDTAddended by: SOLEDAD LUCAS on: 03/02/2022 11:04 AM Modules accepted: Orders * Lois Mckeon MA - 03/02/2022 9:00 AM CDTAddended by: LOIS MCKEON on: 03/02/2022 11:25 AM Modules accepted: Orders * Soledad Lucas MD - 03/02/2022 9:00 AM CDTAssociated Order(s): Joint Aspiration/Injection Post-Procedure Diagnose(s): Primary osteoarthritis of left knee; Effusion of bursa of left knee Summary: Follow-up note Images from the original note were not included. Internal Medicine Outpatient Progress Note CC: Knee Pain (Bilaterally, left > right) and Back Pain (Lower back/upper buttock) HPI: Juliet Stout is a 60-year-old -[place] male who presents for follow- up for bilateral knee effusion with significant osteoarthritis. Patient underwent x-rays of both knees 02/04/2022 and showed??significant tricompartment osteophytes both joints. ??Large joint effusion on the left knee x-ray. ??Large joint effusion also on the rightknee??joint.?Patient has not been taking Percocet 10-325 mg and Completed a Steroid Pack. ??Unable to Do NSAIDs given??his??significant??history of??asthma. He is concerned about right sided low back pain that started recently. This is chronic with recent onset of worsening symptoms. Patient tells me pain is worse in the mornings and especially with movement. He rates his pain as sharp and moderate in intensity. Currently has been using his Moon whichhelps some. No recent falls or injuries. No history of back surgery. No radiation of the pain down the lower extremities. Pain is mainly localized on the right side of lower back close to the buttock. Patient would like this addressed at today's visit. ?? Problem List Patient Active Problem List Diagnosis [...] Outpatient Medications Marked as Taking for the 03/02/22 encounter (Office Visit) with Soledad Lucas MD [...] daily with breakfast. 60 tablet 3 ??? methylPREDNISolone, ABBE, (MEDROL DOSEPAK) 4 MG tablet 6 TABLETS ON DAY ONE, 5 TABLETS DAY TWO, 4 TABLETS DAY THREE, 3 TABLETS DAY FOUR, 2 TABLETS DAY FIVE, AND 1 TABLET DAY SIX 1 each 0 ??? omeprazole 40 MG capsule Take 1 capsule (40 mg total) by mouth daily. 30 capsule 0 ??? oxyCODONE-acetaminophen (PERCOCET) 7.5-325 MG tablet Take 1 tablet by mouth every 8 (eight) hours as needed for Pain. Indications: Chronic Pain 21 tablet 0 Current Facility-Administered Medications for the 03/02/22 encounter (Office Visit) with Soledad Lucas MD Medication Dose Route Frequency Provider Last Rate Last Admin ??? BUpivacaine (MARCAINE) 0.25 % injection 10 mL 10 mL Intrapleural Once Soledad Lucas MD ??? triamcinolone acetonide (KENALOG-40) injection 80 mg 80 mg Intramuscular Once Soledad Lucas MD Allergies: [...] neck pain. Neurological: Negative. Objective: Filed Vitals: 03/02/22 0855 03/02/22 0943 BP: (!) 147/85 128/76 Pulse: 71 Resp: 20 Temp: 97.1 ??F (36.2 ??C) TempSrc: Temporal SpO2: 99% Weight: 100.7 kg (222 lb) Height: 6' [...] affect MSK No synovitis, no bony tenderness, positive for bilateral knee joint effusion, negative leg raise. Mild tenderness on palpation along the sacroiliac joint on the right. Lymph No cervical or supraclavicular adenopathy Assessment and Plan: Encounter Diagnose(s) ICD-10-CM ICD-9-CM SNOMED CT(R) 1. Chronic right-sided low back pain without sciatica M54.50 724.2 CHRONIC LOW BACK PAIN methylPREDNISolone, ABBE, (MEDROL DOSEPAK) 4 MG tablet G89.29 338.29 cyclobenzaprine (FLEXERIL) 10 MG tablet 2. Primary osteoarthritis of left knee M17.12 715.16 OSTEOARTHRITIS OF LEFT KNEE JOINT BUpivacaine (MARCAINE) 0.25 % injection 10 mL triamcinolone acetonide (KENALOG-40) injection 80 mg Joint Aspiration/Injection DRAIN/INJECT LARGE JOINT/BURSA 3. Effusion of bursa of left knee M25.462 719.06 EFFUSION OF JOINT OF LEFT KNEE BUpivacaine (MARCAINE) 0.25 % injection 10 mL triamcinolone acetonide (KENALOG-40) injection 80 mg Joint Aspiration/Injection DRAIN/INJECT LARGE JOINT/BURSA CELL COUNT W/ DIFF BODY FLUID CULTURE, ROUTINE W/ GRAM STAIN (SMD/SJS/SFL ONLY) 1. Chronic right-sided low back pain without sciatica - recent flare up - can continue with percocet as needed - methylPREDNISolone, ABBE, (MEDROL DOSEPAK) 4 MG tablet; 6 TABLETS ON DAY ONE, 5 TABLETS DAY TWO, 4TABLETS DAY THREE, 3 TABLETS DAY FOUR, 2 TABLETS DAY FIVE, AND 1 TABLET DAY SIX Dispense: 1 each; Refill: 0 - cyclobenzaprine (FLEXERIL) 10 MG tablet; Take 1 tablet (10 mg total) by mouth nightly at bedtime.Dispense: 30 tablet; Refill: 0 - if ongoing symptoms will consider imaging vs physical therapy - continue with heating compresses 2. Primary osteoarthritis of left knee - BUpivacaine (MARCAINE) 0.25 % injection 10 mL - triamcinolone acetonide (KENALOG-40) injection 80 mg - Xray showing large joint effusion in both knee joints - drain joint large effusion 3. Effusion of bursa of left knee - BUpivacaine (MARCAINE) 0.25 % injection 10 mL - triamcinolone acetonide (KENALOG-40) injection 80 mg - Xray showing large joint effusion in both knee joints - drain joint large effusion - left knee join gram stain and culture and cell count Joint Aspiration/Injection Date/Time: 03/02/2022 9:56 AM Performed by: Soledad Lucas MD Authorized by: Soledad Lucas MD Indications: joint swelling Body area: knee Joint: left knee Local anesthesia used: yes Anesthesia: local infiltration Anesthesia: Local anesthesia used: yes Local Anesthetic: bupivacaine 0.25% without epinephrine and lidocaine spray Sedation: Patient sedated: no Preparation: Patient was prepped and draped in the usual sterile fashion. Needle size: 18 G Ultrasound guidance: no Approach: anterior Aspirate: serous, yellow and clear Triamcinolone amount: 80 mg Patient tolerance: patient tolerated the procedure well with no immediate complications Comments: About 80cc of serosanguinous fluid drained from the knee joint. No pus. Counseling given: Yes Comment: counsled by Dr Lucas I spent 30 minutes today reviewing the patient's medical record, obtaining history, performing an exam, ordering medications, tests, and/or procedures, documenting in the medical record, referring and/or communicating with other health care providers, counseling and educating the patient/family/caregiver, reviewing and communicating test results and coordination of care. I spent an additional 20 minutes performing the procedure. Side effects and less common but more severe adverse effects of recommended medical therapies were explained to the patient. Requested MyChart or telephone follow up prn if symptoms change, worsen, or persist, or if side effect of treatment is experienced. TEQUILAON: This dictation was at least in part performed using [employer] and there may be some inherent flaws in this marketing area manager due to the nature of this program. Soledad Lucas MD Internal Medicine [facility], [facility]. documented in this encounter Plan of Treatment Upcoming Encounters Date Type Department Care Team (Late st Contact Info) Description 08/19/2024 9:00 AM SUPERVISOR METAL CANS Office Visit [facility] Multispecialty Care - [address] [place] [address] [address] [place] [address] Soledad Lucas MD [address] [facility] [address] [place] [address] 12/16/2024 10:40 AM CDT Office Visit [facility] Multispecialty Care - [facility] [address] [facility] [place] [id number] Ramsey Oakley MD [address] [facility] [address] [place] [address] Scheduled Orders Name Type Priority Associated Diagnoses Orde r Schedule DRAIN/INJECT LARGE JOINT/BURSA Procedures Routine Primary osteoarthritis of left knee Effusion of bursa of left knee Ordered: 03/02/2022 documented as of this encounter Procedures Procedure Name Priority Date/Time Associated Diagnosis Comments JOINT ASPIRATION/INJECTI ON Routine 03/02/2022 9:56 AM CDT Primary osteoarthritis of left knee Effusion of bursa of left knee documented in this encounter Results * Joint Aspiration/Injection (03/02/2022 9:56 AM CDT) Narrative Soledad Lucas MD - 03/02/2022 9:56 AM CDT Soledad Lucas MD ? 03/22/2022 ??7:07 AM Joint Aspiration/Injection Date/Time: 03/02/2022 9:56 AM Performed by: Soledad Lucas MD Authorized by: Soledad Lucas MD Indications: joint swelling Body area: knee Joint: left knee Local anesthesia used: yes Anesthesia: local infiltration Anesthesia: Local anesthesia used: yes Local Anesthetic: bupivacaine 0.25% without epinephrine and lidocaine spray Sedation: Patient sedated: no Preparation: Patient was prepped and draped in the usual sterile fashion. Needle size: 18 G Ultrasound guidance: no Approach: anterior Aspirate: serous, ??yellow and clear Triamcinolone amount: 80 mg Patient tolerance: patient tolerated the procedure well with no immediate complications Comments: About 80cc of serosanguinous fluid drained from the knee joint. No pus. Soledad Lucas MD PROCEDURE/MINOR SURGICAL ORDERAB LES Edited Result - Final documented in this encounter Visit Diagnoses Diagnosis Chronic right-sided low back pain without sciatica- Primary Primary osteoarthritis of left knee Primary localized osteoarthrosis, lower leg Effusion of bursa of left knee documented in this encounter Additional Health Concerns Assessment Noted Time PHQ-9 Depression Total Score: 1 09/29/19 22 10:03 AM SUPERVISOR METAL CANS documented as of this encounter Care Teams Marine Insurance Claim Examiner Relationship Specialty Start Date End Date Soledad Lucas MD [address] [address] PCP - General INTERNAL MEDICINE 09/29/21 documented as of this encounter
--- OUTSIDE RECORDS SUMMARY | 2024-08-03 03:26 | XMS_ITS | Encounter Summary ---
Author Organization [facility] Address [address] [place] [address]. [place], [place] [id number] [place] [address] Care Team Providers Care Repair Operator Name Role Phone Soledad Lucas MD Primary Care Provider [phone] Encounter Details Date Type Department Care Team (Latest Contact Info) Description 03/25/2022 Travel Social History Tobacco Use Types Packs/Day [...] st Contact Info) Description 08/19/2024 9:00 AM DIRECTOR OF REVENUE CYCLE MANAGEMENT Office Visit [facility] Medical Group Multispecialty Care - [address] [place] [address] [address] [place] [address] Soledad Lucas MD [address] [place] [address] [address] [place] [address] 12/16/2024 10:40 AM CDT Office Visit [facility] Medical [facility] Multispecialty Care - [facility] [address] [facility] [place] [address] Ramsey Oakley MD [address] [facility] [address] [place] [address] documented as of this encounter Visit Diagnoses Not on filedocumented in this encounter Additional Health Concerns Assessment Noted Time PHQ-9 Depression Total Score: 1 09/29/19 22 10:03 AM DIRECTOR OF REVENUE CYCLE MANAGEMENT documented as of this encounter Care Teams Repair Operator Relationship Specialty Start Date End Date Soledad Lucas MD [address] [address] PCP - General INTERNAL MEDICINE 09/29/21 documented as of this encounter
--- OUTSIDE RECORDS SUMMARY | 2024-08-03 03:26 | XMS_ITS | Encounter Summary ---
Author Organization [facility] Address [address] [place] [address]. [address] [address] Care Team Providers Care Combat Rifle Crewmember Name Role Phone Soledad Lucas MD Primary Care Provider [phone] Reason for Visit * Reason Comments Low Back Pain Patient says the nas n started 2 days ago. Pain shooting down left butt cheek and sometimes shooting down the middle Encounter Details Date Type Department Care Team (Latest Contact Info) Description 04/05/2022 2:10 PM CDT Office Visit [facility] Multispecialty Care - [place] [address] [address] [place] [address] Soledad Lucas MD [address] [place] [address] Low Back Pain (Patient says the pain started 2 days ago. Pain shooting down left butt cheek and sometimes shooting down the middle) Social History Tobacco Use Types Packs/Day Years [...] Sign Reading Time Taken Comments Blood Pressure 116/68 04/05/2022 2:12 PM CDT Pulse 79 04/05/2022 2:12 PM CDT Temperature 36.8 ??C (98.2 ??F) 04/05/2022 2:12 PM CD T Respiratory Rate 18 04/05/2022 2:12 PM CDT Oxygen Saturation 98% 04/05/2022 2:12 PM CDT Inhaled Oxygen Concentration - - Weight 100.9 kg (222 lb 6.4 oz) 04/05/2022 2:12 PM CDT Height 185.4 cm (6' 1 ) 04/05/2022 2:12 PM CDT Body Mass Index 29.34 04/05/2022 2:12 PM CDT documented in this encounter Patient Instructions * Patient Instructions* Soledad Lucas MD - 04/05/2022 2:10 PM CDT Follow up in one week for your left knee joint. * Attachments The following attachments cannot be sent through Care Everywhere. * Back Exercises (Kinyarwanda) documented in this encounter Progress Notes * Soledad Lucas MD - 04/05/2022 2:10 PM CDTAddended by: SOLEDAD LUCAS on: 04/05/2022 03:18 PM Modules accepted: Orders * Soledad Lucas MD - 04/05/2022 2:10 PM CDTAddended by: SOLEDAD LUCAS on: 04/21/2022 01:38 PM Modules accepted: Orders * Soledad Lucas MD - 04/05/2022 2:10 PM CDTSummary: Acute visit note Internal Medicine Outpatient Progress Note CC: Low Back Pain (Patient says the pain started 2 days ago. Pain shooting down left butt cheek andsometimes shooting down the middle) HPI: Juliet Stout is a 60-year-old -Bel[place]ian male who presents for acute visit for complaintsof low back pain. According to patient, low back pain started about 2 days ago. Patient describes pain as radiating down the posterior left lower extremity. Patient rates pain as moderate. It is a shooting pain. Denies any weakness of the lower extremity, loss of sensation or loss of urine or stoolincontinence. He has already taken 1 tablet of his Percocet a few days ago and still having ongoingpain and decided to report. No prior history of low back surgery. Patient with underlining asthma and cannot do NSAIDs. He currently has Flexeril and has not noticed any significant improvement in his symptoms. No recent falls or near falls. Patient concerned and decided to report at today's visit.The pain radiates down the left posterior buttock and down the posterior aspect of the lower extremity. Problem List Patient Active Problem List Diagnosis [...] Outpatient Medications Marked as Taking for the 04/05/22 encounter (Office Visit) with Soledad Lucas MD [...] daily as needed. 60 tablet 1 ??? methylPREDNISolone, ABBE, (MEDROL DOSEPAK) 4 MG tablet 6 TABLETS ON DAY ONE, 5 TABLETS DAY TWO, 4 TABLETS DAY THREE, 3 TABLETS DAY FOUR, 2 TABLETS DAY FIVE, AND 1 TABLET DAY SIX 1 each 0 ??? NEBULIZER DEVICE, DME, Take 1 Device by nebulization every 6 (six) hours as needed. 1 Device 0 ??? omeprazole 40 MG capsule Take 1 capsule (40 mg total) by mouth daily. 30 capsule 0 ??? oxyCODONE-acetaminophen (PERCOCET) 7.5-325 MG tablet Take 1 tablet by mouth daily as needed forPain. Indications: Chronic Pain 30 tablet 0 ??? vitamin D2, ergocalciferol, [address] UNITS capsule Take 1 capsule (50,000 Units total) by mouth weekly. 12 capsule 1 Current Facility-Administered Medications for the 04/05/22 encounter (Office Visit) with Soledad Lucas MD Medication Dose Route Frequency Provider Last Rate Last Admin ??? BUpivacaine (PF) (MARCAINE) 0.25 % injection 10 mL 10 mL Intrapleural Once Soledad Lucas MD Allergies: [...] for falls, myalgias and neck pain. Neurological: Positive for tingling. Negative for dizziness, tremors, sensory change, speech change, focal weakness, seizures, loss of consciousness, weakness and headaches. Objective: Filed Vitals: 04/05/22 1412 BP: 116/68 Pulse: 79 Resp: 18 Temp: 98.2 ??F (36.8 ??C) TempSrc: Temporal SpO2: 98% Weight: 100.9 kg (222 lb 6.4 oz) Height: 6' 1 (1.854 m) Body mass index is 29.34 kg/m??. General alert, cooperative, no distress HEENT [...] deficits, motor strength is grossly normal and symmetric; Positive straight legraise. Psych Normal mood and affect MSK No synovitis, mild tenderness on the posterior aspect of the lower back. Lymph No cervical or supraclavicular adenopathy Assessment and Plan: Encounter Diagnose(s) ICD-10-CM ICD-9-CM SNOMED CT(R) 1. Acute midline low back pain with left-sided sciatica M54.42 724.2 ACUTE BACK PAIN WITH SCIATICA ketorolac (TORADOL) injection 60 mg 724.3 XR LUMB SPINE 3V methocarbamol (ROBAXIN) 750 MG Tab methylPREDNISolone, ABBE, (MEDROL DOSEPAK) 4 MG tablet 1. Acute midline low back pain with left-sided sciatica - Acute pain with no precipitating factors; no red flag signs or symptoms For acute pain, rest, intermittent application of cold packs (later, may switch to heat, but do notsleep on heating pad), analgesics and muscle relaxants are recommended. Discussed home back care exercise program with flexion exercise routine. Patient was given a set of stretches to start at home.Proper lifting with avoidance of heavy lifting discussed. Consider Physical Therapy and XRay studies if not improving. Call or return to clinic prn if these symptoms worsen or fail to improve as anticipated. Discussed that most acute back injuries will improve within 4-6 weeks with the treatment. Avoid NSAIDs. - ketorolac (TORADOL) injection 60 mg - XR LUMB SPINE 3V; Future - methocarbamol (ROBAXIN) 750 MG Tab; Take 1 tablet (750 mg total) by mouth 3 (three) times daily as needed. Dispense: 60 tablet; Refill: 1 - methylPREDNISolone, ABBE, (MEDROL DOSEPAK) 4 MG tablet; 6 TABLETS ON DAY ONE, 5 TABLETS DAY TWO, 4TABLETS DAY THREE, 3 TABLETS DAY FOUR, 2 TABLETS DAY FIVE, AND 1 TABLET DAY SIX Dispense: 1 each; Refill: 0 -Use lidocaine patch alternating with heating pad Counseling given: Yes Comment: counsled by Dr [...] was at least in part performed using [employer] and there may be some inherent flaws in this lead medical technologist due to the nature of this program. Soledad Lucas MD Internal Medicine [facility], [facility]. documented in this encounter Plan of Treatment Upcoming Encounters Date Type Department Care Team (Late st Contact Info) Description 08/19/2024 9:00 AM DESKTOP PUBLISHING OPERATOR [facility] [place] [address] [address] [place] [address] [place] [address] [place] [address] [address] [place] [address] 12/16/2024 10:40 AM CDT [facility] [address] [facility] [place] [address] Ramsey Oakley MD [address] [facility] [address] [place] [address] documented as of this encounter Procedures Procedure Name Priority Date/Time Associated Diagnosis Comments XR LUMB SPINE 3V Routine 04/05/2022 12:00 AM CDT Acute midline low back pain with left-sided sciatica documented in this encounter Results * XR LUMB SPINE 3V (04/05/2022 12:00 AM CDT) Anatomical Region Laterality Modality Spine Radiographic Liv ging 04/05/2022 Soledad Lucas MD GENERAL IMAGING Final Result documented in this encounter Visit Diagnoses Diagnosis Acute midline low back pain with left-sided sciatica- Primary documented in this encounter Administered Medications Inactive Administered Medications - up to 3 most recent administrations Medication Order MAR Action Action Date Dose Rate Site ketorolac (TORADOL) injection 60 mg 60 mg, Intramuscular, Once, 1 dose, On Mon04/05/22 at 1500Indications:Acute midline low back pain with left-sided sciatica Given 04/05/2022 2:32 PM CDT 60 mg Right Deltoid documented in this encounter Additional Health Concerns Assessment Noted Time PHQ-9 Depression Total Score: 1 09/29/19 10:03 AM DESKTOP PUBLISHING OPERATOR documented as of this encounter Care Teams Combat Rifle Crewmember Relationship Specialty Start Date End Date Soledad Lucas MD [address] [address] PCP - General INTERNAL MEDICINE 09/29/21 documented as of this encounter
--- OUTSIDE RECORDS SUMMARY | 2024-08-03 03:26 | XMS_ITS | Encounter Summary ---
Author Organization [facility] Address [address] [place] [address] [address] Care Team Providers Care Shelving Supervisor Name Role Phone Soledad Lucas MD Primary Care Provider [phone] Encounter Details Date Type Department Care Team (Late st Contact Info) Description 04/13/2022 Orders Only [facility] Medical Group Multispecialty Care - [place] [address] [address] [place], [place] [id number] Soledad Lucas MD [address] [place] [address] [address] [place] [address] Social History Tobacco Use Types [...] st Contact Info) Description 08/19/2024 9:00 AM VETERINARY ASSISTANT Office Visit [facility] Medical [facility] Multispecialty Care - [place] [address] [place] [address] [address] [place] [address] Soledad Lucas MD [address] [facility] [address] [place] [address] 12/16/2024 10:40 AM CDT Office Visit [facility] Medical [facility] Multispecialty Care - [facility] [address] [place] [phone] Ramsey Oakley MD [address] [facility] [facility] [address] [place] [address] documented as of this encounter Procedures Procedure Name Priority Date/Time Associated Diagnosis Comments CULTURE, ROUTINE W/ GRAM STAIN Routine 04/13/2022 1:30 PM CDT Effusion of bursa of left knee CELL COUNT W/ DIFF BODY FLUID Routine 04/13/2022 1:30 PM CDT Effusion of bursa of left knee documented in this encounter Results * CULTURE, ROUTINE W/ GRAM STAIN (SMD/SJS/SFL ONLY) (04/13/2022 1:30 PM CDT) SPEC DESCRIPTION KNEE,LEFT 04/13/2022 6:50 PM CDT [facility] SPECIAL REQUESTS NO SPECIAL REQUEST 04/13/2022 6:50 PM CDT [facility] GRAM STAIN RESULT FEW NEUTROPHILS SEEN 04/14/2022 12:28 AM CDT [facility] GRAM STAIN RESULT NO ORGANISMS SEEN 04/14/2022 12:28 AM CDT [facility] CULTURE RESULT NO GROWTH 5 DAYS 04/19/2022 10:05 AM CDT [facility] STRUCTURE OF LEFT KNEE REGION / Unknown 04/13/2022 1:30 PM CDT 04/13/2022 8:57 PM CDT us Soledad Lucas MD MICROBIOLOGY - GENERAL ORDERABLE S Final Result [facility] [address] [place] [address], [place] [phone] [id number] * CELL COUNT W/ DIFF BODY FLUID (04/13/2022 1:30 PM CDT) SOURCE (FLUID) KNEE,LEFT 04/13/2022 9:29 PM CDT [facility] TOTAL NUCLEATED CELL COUNT 0.065 x10'3/uL 04/13/2022 10:05 PM CDT [facility] Comment:ADJUSTED FOR NUCLEAT ED RBC'S RBC (FLUID) 0.001 x10'6/uL 04/13/2022 9:29 PM CDT [facility] Comment:REFERENCE RANGE NOT ESTABLISHED DIFFERENTIAL MANUAL DIFFERENTIAL PERFORMED ON CONCENTRATED CYTOSPIN 04/13/2022 6:50 PM CDT [facility] CELLS COUNTED 100 No COUNTED 04/13/2022 10:09 PM CDT [facility] SEGS (FLUID) 23 % 04/13/2022 10:05 PM CDT [facility] LYMPHS (FLUID) 71 % 04/13/2022 10:05 PM CDT [facility] OTHER MONONUCLEAR CELLS (FLD) 6 04/13/2022 10:05 PM CDT [facility] NRBC 1 % 04/13/2022 10:05 PM CDT [facility] STRUCTURE OF LEFT KNEE REGION / Unknown 04/13/2022 1:30 PM CDT us Soledad Lucas MD BODY FLUIDS AND STOOLS ORDERABLE S Edited Result - Final [facility] [address] [place] [address], [id number] documented in this encounter Visit Diagnoses Diagnosis Effusion of bursa of left knee documented in this encounter Additional Health Concerns Assessment Noted Time PHQ-9 Depression Total Score: 1 09/29/19 22 10:03 AM VETERINARY ASSISTANT documented as of this encounter Care Teams Shelving Supervisor Relationship Specialty Start Date End Date Soledad Lucas MD [facility] [address] [address] PCP - General INTERNAL MEDICINE 09/29/21 documented as of this encounter
--- OUTSIDE RECORDS SUMMARY | 2024-08-03 03:26 | XMS_ITS | Encounter Summary ---
Author Organization [facility] Address [address] [place] [address]. [place], [place] [address] [place] [address] Care Team Providers Care Case Resource Manager Name Role Phone Soledad Lucas MD Primary Care Provider [phone] Encounter Details Date Type Department Care Team (Latest Contact Info) Description 03/02/2022 Travel Social History Tobacco Use Types Packs/Day [...] Info) Description 08/19/2024 9:00 AM DIRECTOR OF ACQUISITIONS Office Visit [facility] Medical Group Multispecialty Care - [place] [address] [address] [place] [address] Soledad Lucas MD [address] [place] [address] [address] [place] [address] 12/16/2024 10:40 AM CDT Office Visit [facility] Medical Group Multispecialty Care - [facility] [address] [facility] [place] [address] Ramsey Oakley MD [address] [facility] [address] [place] [address] documented as of this encounter Visit Diagnoses Not on filedocumented in this encounter Additional Health Concerns Assessment Noted Time PHQ-9 Depression Total Score: 1 09/29/19 22 10:03 AM DIRECTOR OF ACQUISITIONS documented as of this encounter Care Teams Case Resource Manager Relationship Specialty Start Date End Date Soledad Lucas MD [address] [address] PCP - General INTERNAL MEDICINE 09/29/21 documented as of this encounter
--- OUTSIDE RECORDS SUMMARY | 2024-08-03 03:26 | XMS_ITS | Encounter Summary ---
Author Organization [facility] - [facility] Address [address] [place] [address]. [address] [address] Care Team Providers Care Hedis Abstractor Name Role Phone Soledad Lucas MD Primary Care Provider [phone] Reason for Visit * Reason Onset Date Comments Reschedule 03/18/2022 Encounter Details Date Type Department Care Team (Late st Contact Info) Description 03/18/2022 Telephone [facility] Medical Group Multispecialty Care - [place] [address] [address] [place] [address] Soledad Lucas MD [address] [place] [address] [address] [place], [place] [id number] Reschedule Social History Tobacco Use Types Packs/Day [...] encounter Progress Notes * Stewart Lemus - 03/18/2022 2:08 PM CDT Patient called and rescheduled appointment for 03/25/22 @ 2:50pm. Patient is stuck in traffic and won't make it before we close. documented in this encounter Plan of Treatment Upcoming Encounters Date Type Department Care Team (Late st Contact Info) Description 08/19/2024 9:00 AM MOTOR POWER CONNECTOR Office Visit [facility] Multispecialty Care - [place] [address] [address] [place] [address] [place] [address] [place] [address] 12/16/2024 10:40 AM CDT [facility] [address] [facility] [place] [address] Ramsey Oakley MD [address] [facility] [address] [place] [address] documented as of this encounter Visit Diagnoses Not on filedocumented in this encounter Additional Health Concerns Assessment Noted Time PHQ-9 Depression Total Score: 1 09/29/19 22 10:03 AM MOTOR POWER CONNECTOR documented as of this encounter Care Teams Hedis Abstractor Relationship Specialty Start Date End Date Soledad Lucas MD [address] [facility] [address] [place] [address] PCP - General INTERNAL MEDICINE 09/29/21 documented as of this encounter
--- OUTSIDE RECORDS SUMMARY | 2024-08-03 03:26 | XMS_ITS | Encounter Summary ---
Author Organization [facility] Address [address] [place] [address]. [address] [address] Care Team Providers Care Chief Yeoman Name Role Phone Soledad Lucas MD Primary Care Provider [phone] Reason for Referral * (Routine) - Closed Specialty Diagnoses / Procedures Referred By Prasanth santillan Referred To Contact Diagnoses Effusion of bursa of left knee Procedures Joint Aspiration[place] [address] [place] [address] Phone: tel: fax: Referral ID Status Reason Start Date Expiration Date Visits Re quested Visits Authorized [id number] Closed 04/13/2022 04/13/2023 1 1 Reason for Visit * Reason Comments Joint Pain Encounter Details Date Type Department Care Team (Late st Contact Info) Description 04/13/2022 11:00 AM CDT Office Visit [facility] Medical Group Multispecialty Care - [place] [address] [address] [place] [address] [place] [address] [place] [id number] Joint Pain Social History Tobacco Use Types Packs/Day [...] Sign Reading Time Taken Comments Blood Pressure 104/75 04/13/2022 11:15 AM CDT Pulse 82 04/13/2022 11:15 AM CDT Temperature 36.3 ??C (97.3 ??F) 04/13/2022 11:15 AM C DT Respiratory Rate 18 04/13/2022 11:15 AM CDT Oxygen Saturation 98% 04/13/2022 11:54 AM CDT Inhaled Oxygen Concentration - - Weight 98.2 kg (216 lb 9.6 oz) 04/13/2022 11:15 AM CDT Height 185.4 cm (6' 1 ) 04/13/2022 11:15 AM CDT Body Mass Index 28.58 04/13/2022 11:15 AM CDT documented in this encounter Progress Notes * Soledad Lucas MD - 04/13/2022 11:00 AM CDTAssociated Order(s): Joint Aspiration/Injection Post-Procedure Diagnose(s): Effusion of bursa of left knee Summary: Follow-up notes Images from the original note were not included. Internal Medicine Outpatient Progress Note CC: Joint Pain HPI: Juliet Stout is a 60-year-old male who presents for on 3 visit for concerns about oral concernsfor left knee joint swelling with pain. Patient comes in today with concerns about left knee swelling. Patient has been seen on multiple occasions for bilateral knee joint effusion. He comes in todayto have his left knee screen. Has mild to moderate knee pain. He recently was on a steroid pack andtells me that significantly helped with his pain but still has ongoing left knee swelling. No feveror chills. Concerned and would like to be treated at this time. Problem List Patient Active [...] Outpatient Medications Marked as Taking for the 04/13/22 encounter (Office Visit) with Soledad Lucas MD [...] 30 tablet 0 ??? vitamin D2, ergocalciferol, 69868 UNITS capsule Take 1 capsule (50,000 Units total) by mouth weekly. 12 capsule 1 Current Facility-Administered Medications for the 04/13/22 encounter (Office Visit) with Soledad Lucas MD [...] neck pain. Neurological: Negative. Objective: Filed Vitals: 04/13/22 1115 04/13/22 1151 04/13/22 1153 04/13/22 1154 BP: 104/75 Pulse: 82 Resp: 18 Temp: 97.3 ??F (36.3 ??C) TempSrc: Temporal SpO2: 98% 99% 99% 98% Weight: 98.2 kg (216 lb 9.6 oz) Height: 6' 1 (1.854 m) Body mass index is 28.58 kg/m??. General alert, cooperative, no distress HEENT [...] no cyanosis, 2+ pedal pulses, no edema; left knee joint effusion with mild tenderness. Skin Skin color, texture, turgor normal. No rashes or lesions appreciated. Neurologic No focal deficits, motor strength is grossly normal and symmetric Psych Normal mood and affect MSK No synovitis, no bony tenderness, no joint effusions Lymph No cervical or supraclavicular adenopathy Assessment and Plan: Encounter Diagnose(s) ICD-10-CM ICD-9-CM SNOMED CT(R) 1. Effusion of bursa of left knee M25.462 719.06 EFFUSION OF JOINT OF LEFT KNEE BUpivacaine (PF) (MARCAINE) 0.25 % injection 5 mL triamcinolone acetonide (KENALOG-40) injection 40 mg Joint Aspiration/Injection DRAIN/INJECT LARGE JOINT/BURSA CULTURE, ROUTINE W/ GRAM STAIN (SMD/SJS/SFL ONLY) CELL COUNT W/ DIFF BODY FLUID 1. Effusion of bursa of left knee - BUpivacaine (PF) (MARCAINE) 0.25 % injection 5 mL - triamcinolone acetonide (KENALOG-40) injection 40 mg - Joint Aspiration/Injection - DRAIN/INJECT LARGE JOINT/BURSA - CULTURE, ROUTINE W/ GRAM STAIN (SMD/SJS/SFL ONLY); Future - CELL COUNT W/ DIFF BODY FLUID; Future - follow up with orthopedics; referral already placed Joint Aspiration/Injection Date/Time: 04/13/2022 1:16 PM Performed by: Soledad Lucas MD Authorized by: Soledad Lucas MD Indications: joint swelling Body area: knee Joint: left knee Local anesthesia used: yes Anesthesia: Local anesthesia used: yes Local Anesthetic: bupivacaine 0.25% without epinephrine Sedation: Patient sedated: no Preparation: Patient was prepped and draped in the usual sterile fashion. Needle size: 18 G Ultrasound guidance: no Approach: medial Aspirate: yellow and serous Triamcinolone amount (mg): 2cc. Bupivacaine 0.25% amount (ml): 10cc. Patient tolerance: patient tolerated the procedure well with no immediate complications Comments: 100cc of serous yellow fluid aspirated from left knee joint. Counseling given: Yes Comment: counsled by Dr Lucas I spent 20 [...] was at least in part performed using BView and there may be some inherent flaws in this low pressure kettle operator due to the nature of this program. Soledad Lucas MD Internal Medicine [facility], [facility]. documented in this encounter Plan of Treatment Upcoming Encounters Date Type Department Care Team (Late st Contact Info) Description 08/19/2024 9:00 AM BOILERMAKER HELPER [facility] [address] [place] [address] Soledad Lucas MD [address] [place] [address] 12/16/2024 10:40 AM CDT Office Visit [facility] Multispecialty [facility] - [address], [address] [place] [address] Ramsey Oakley MD [address] [place] [address] Scheduled Orders Name Type Priority Associated Diagnoses Orde r Schedule DRAIN/INJECT LARGE JOINT/BURSA Procedures Routine Effusion of bursa of left knee Ordered: 04/13/2022 documented as of this encounter Procedures Procedure Name Priority Date/Time Associated Diagnosis Comments JOINT ASPIRATION/INJECTIO N Routine 04/13/2022 1:16 PM CDT Effusion of bursa of left knee documented in this encounter Results * CELL COUNT W/ DIFF BODY FLUID (04/13/2022 1:30 PM CDT) SOURCE (FLUID) KNEE,LEFT 04/13/2022 9:29 PM CDT [facility] TOTAL NUCLEATED CELL COUNT 0.065 x10'3/uL 04/13/2022 10:05 PM CDT [facility] Comment:ADJUSTED FOR NUCLEAT ED RBC'S RBC (FLUID) 0.001 x10'6/uL 04/13/2022 9:29 PM CDT [facility] Comment:REFERENCE RANGE NOT ESTABLISHED DIFFERENTIAL MANUAL DIFFERENTIAL PERFORMED ON CONCENTRATED CYTOSPIN 04/13/2022 6:50 PM CDT [facility] CELLS COUNTED 100 No COUNTED 04/13/2022 10:09 PM CDT [facility] SEGS (FLUID) 23 % 04/13/2022 10:05 PM CDT [facility] LYMPHS (FLUID) 71 % 04/13/2022 10:05 PM CDT [facility] OTHER MONONUCLEAR CELLS (FLD) 6 04/13/2022 10:05 PM CDT [facility] NRBC 1 % 04/13/2022 10:05 PM CDT [facility] STRUCTURE OF LEFT KNEE REGION / Unknown 04/13/2022 1:30 PM CDT us Soledad Lucas MD BODY FLUIDS AND STOOLS ORDERABLE S Edited Result - Final Performing Organization Address [facility] de Phone Number [facility] [address] [place] [address], [phone] * CULTURE, ROUTINE W/ GRAM STAIN (SMD/SJS/SFL ONLY) (04/13/2022 1:30 PM CDT) SPEC DESCRIPTION KNEE,LEFT 04/13/2022 6:50 PM CDT [facility] SPECIAL REQUESTS NO SPECIAL REQUEST 04/13/2022 6:50 PM CDT [facility] GRAM STAIN RESULT FEW NEUTROPHILS SEEN 04/14/2022 12:28 AM CDT [facility] GRAM STAIN RESULT NO ORGANISMS SEEN 04/14/2022 12:28 AM CDT [facility] CULTURE RESULT NO GROWTH 5 DAYS 04/19/2022 10:05 AM CDT [facility] STRUCTURE OF LEFT KNEE REGION / Unknown 04/13/2022 1:30 PM CDT 04/13/2022 8:57 PM CDT Soledad Lucas MD MICROBIOLOGY - GENERAL ORDERABLE S Final Result Performing Organization Address [facility] de Phone Number [facility] [address] [place] [address], [phone] * Joint Aspiration/Injection (04/13/2022 1:16 PM CDT) Narrative Soledad Lucas MD - 04/13/2022 1:16 PM CDT Soledad Lucas MD ? 04/13/2022 ??9:38 PM Joint Aspiration/Injection Date/Time: 04/13/2022 1:16 PM Performed by: Soledad Lucas MD Authorized by: Soledad Lucas MD Indications: joint swelling Body area: knee Joint: left knee Local anesthesia used: yes Anesthesia: Local anesthesia used: yes Local Anesthetic: bupivacaine 0.25% without epinephrine Sedation: Patient sedated: no Preparation: Patient was prepped and draped in the usual sterile fashion. Needle size: 18 G Ultrasound guidance: no Approach: medial Aspirate: yellow and serous Triamcinolone amount (mg): 2cc. Bupivacaine 0.25% amount (ml): 10cc. Patient tolerance: patient tolerated the procedure well with no immediate complications Comments: 100cc of serous yellow fluid aspirated from left knee joint. Soledad Lucas MD PROCEDURE/MINOR SURGICAL ORDERAB LES Edited Result - Final documented in this encounter Visit Diagnoses Diagnosis Effusion of bursa of left knee- Primary documented in this encounter Additional Health Concerns Assessment Noted Time PHQ-9 Depression Total Score: 1 09/29/19 22 10:03 AM BOILERMAKER HELPER documented as of this encounter Care Teams Chief Yeoman Relationship Specialty Start Date End Date Soledad Lucas MD [address] [address] PCP - General INTERNAL MEDICINE 09/29/21 documented as of this encounter
--- OUTSIDE RECORDS SUMMARY | 2024-08-03 03:26 | XMS_ITS | Encounter Summary ---
Author Organization [facility] Address [address] [place] [address]. [place], [place] [address] [place] [address] Care Team Providers Care Morgue Keeper Name Role Phone Soledad Lucas MD Primary Care Provider [phone] Encounter Details Date Type Department Care Team (Latest Contact Info) Description 04/05/2022 Travel Social History Tobacco Use Types Packs/Day [...] suspected to have Coronavirus/COVID-19? No / Unsure 04/05/2022 1:59 PM CDT documented as of this encounter Plan of Treatment Upcoming Encounters Date Type Department Care Team (Late st Contact Info) Description 08/19/2024 9:00 AM TRANSFORMER MECHANIC Office Visit [facility] Medical Group Multispecialty Care - [place] [address] [address] [place] [address] Soledad Lucas MD [address] [place] [address] [address] [place] [address] 12/16/2024 10:40 AM CDT Office Visit [facility] Medical Group Mult[facility]pecialty Care - [facility] [address] [facility] [place] [address] Ramsey Oakley MD [address] [facility] [address] [place] [address] documented as of this encounter Visit Diagnoses Not on filedocumented in this encounter Additional Health Concerns Assessment Noted Time PHQ-9 Depression Total Score: 1 09/29/19 22 10:03 AM TRANSFORMER MECHANIC documented as of this encounter Care Teams Morgue Keeper Relationship Specialty Start Date End Date Soledad Lucas MD [address] [address] PCP - General INTERNAL MEDICINE 09/29/21 documented as of this encounter
--- OUTSIDE RECORDS SUMMARY | 2024-08-03 03:26 | XMS_ITS | Encounter Summary ---
Author Organization [facility] Address [address] [place] [address]. [place], [place] [address] [place] [address] Care Team Providers Care Utility Aide Name Role Phone Soledad Lucas MD Primary Care Provider [phone] Reason for Visit * Reason Onset Date Comments Other 03/21/2022 Refill Request Encounter Details Date Type Department Care Team (Late st Contact Info) Description 03/21/2022 Telephone [facility] Medical Group Multispecialty Care - [place] [address] [address] [place] [address] Soledad Lucas MD [address] [place] [address] [address] [place] [address] Other (Refill Request) Social History Tobacco Use Types Packs/Day Years [...] Progress Notes * Mirella Sanford NP - 03/21/2022 4:22 PM CDT I would discuss with this Dr. Lucas when she returns since pt has canceled 3 times. * Stewart Lemus - 03/21/2022 10:03 AM CDT Patient called and stated that he needs pain meds. He did not know which one it was. Please call patient to discuss. documented in this encounter Plan of Treatment Upcoming Encounters Date Type Department Care Team (Late st Contact Info) Description 08/19/2024 9:00 AM MULTIFOCAL BUTTON GENERATOR Office Visit [facility] Multispecialty Care - [place] [address] [address] [place] [address] Soledad Lucas MD [address] [place] [address] 12/16/2024 10:40 AM CDT Office Visit [facility] Multispecialty [facility] [address] [facility] [place] [phone] Ramsey Oakley MD 3 [facility] [address] [place] [address] documented as of this encounter Visit Diagnoses Not on filedocumented in this encounter Additional Health Concerns Assessment Noted Time PHQ-9 Depression Total Score: 1 09/29/19 22 10:03 AM MULTIFOCAL BUTTON GENERATOR documented as of this encounter Care Teams Utility Aide Relationship Specialty Start Date End Date Soledad Lucas MD [address] [place] [address] PCP - General INTERNAL MEDICINE 09/29/21 documented as of this encounter
--- OUTSIDE RECORDS SUMMARY | 2024-08-03 03:26 | XMS_ITS | Encounter Summary ---
Author Organization [facility] - [facility] Address [address] [place] [address]. [place], [place] [address] [place] [address] Care Team Providers Care Automation Qtp Tester Name Role Phone Soledad Lucas MD Primary Care Provider [phone] Reason for Visit * Reason Onset Date Comments Follow Up Call 02/08/2022 Encounter Details Date Type Department Care Team (Late st Contact Info) Description 02/08/2022 Telephone [facility] Medical Group Multispecialty Care - [place] [address] [address] [place] [address] Soledad Lucas MD [address] [place] [address] [address] [place] [address] Follow Up Call Social History [...] Progress Notes * Soledad Lucas MD - 02/08/2022 8:49 AM CDT I received patient's x-ray of both knee joints. Shows significant tricompartment osteophytes both joints. Large joint effusion on the left knee x-ray. Large joint effusion also on the right knee joint. Patient has follow-up appointment in 2 weeks. We will discuss draining his joints during that visit. Soledad Lucas MD Internal Medicine [facility], [facility]. documented in this encounter Plan of Treatment Upcoming Encounters Date Type Department Care Team (Late st Contact Info) Description 08/19/2024 9:00 AM ALMOND PASTE MOLDER [facility] [place] [address] [address] [place] [address] Soledad Lucas MD [address] [address] 12/16/2024 10:40 AM CDT [facility] [address] [facility] [place] [phone] Ramsey Oakley MD 3 [facility] [address] [place] [address] documented as of this encounter Visit Diagnoses Not on filedocumented in this encounter Additional Health Concerns Assessment Noted Time PHQ-9 Depression Total Score: 1 09/29/19 22 10:03 AM ALMOND PASTE MOLDER documented as of this encounter Care Teams Automation Qtp Tester Relationship Specialty Start Date End Date Soledad Lucas MD [address] [place] [address] PCP - General INTERNAL MEDICINE 09/29/21 documented as of this encounter
--- OUTSIDE RECORDS SUMMARY | 2024-08-03 03:26 | XMS_ITS | Encounter Summary ---
Author Organization [facility] Address [address] [place] [address]. [place], [place] [address] [place] [address] Care Team Providers Care Investigator Narcotics Name Role Phone Soledad Lucas MD Primary Care Provider [phone] Encounter Details Date Type Department Care Team (Latest Contact Info) Description 03/25/2022 8:43 PM CDT - 03/25/2022 11:59 PM CDT Hospital Encounter [facility] [address] [place] [address] Soledad Lucas MD [address] [address] Discharge Disposition: Home or Self [...] PM CDT documented as of this encounter Medications [...] with breakfast. 60 tablet 3 01/07/2022 3 NEBULIZER DEVICE, DME,Indications:M oderate persistent asthma with [...] for Pain. Indications: Chronic Pain 30 tablet 03/25/2022 2 vitamin D2, ergocalciferol, 80084 UNITS capsuleIndication s:Vitamin D deficiency Take 1 capsule (50,000 Units total) by mouth weekly. 12 capsule 1 09/29/2021 3 documented as of this encounter Plan of Treatment Upcoming Encounters Date Type Department Care Team (Late st Contact Info) Description 08/19/2024 9:00 AM RETAIL PHARMACY MANAGER [facility] [place] [address] [address] [place] [address] Soledad Lucas MD [address] [place] [address] [address] [place] [address] 12/16/2024 10:40 AM CDT [facility] 3 [facility], [address] [facility] [place] [id number] Ramsey Oakley MD 3 [facility] [address] [place] [address] documented as of this encounter Procedures Procedure Name Priority Date/Time Associated Diagnosis Comments CULTURE, ROUTINE W/ GRAM STAIN Routine 03/25/2022 12:00 PM CDT CRYSTALS, BODY FLUID Routine 03/25/2022 12:00 PM CDT CELL COUNT W/ DIFF BODY FLUID Routine 03/25/2022 12:00 PM CDT documented in this encounter Results * CRYSTALS, BODY FLUID (03/25/2022 12:00 PM CDT) COMMENT PRELIMINARY REPORT: 03/25/2022 9:39 PM CDT [facility] Comment: NO CRYSTALS TO BE REVIEWED BY PATHOLOGIST CRYSTAL SOURCE KNEE,RIGHT 03/25/2022 8:45 PM CDT [facility] COMMENT THIS CRYSTAL REPORT WAS INTERPRETED BY 03/28/2022 8:49 AM CDT [facility] Comment: DR MARY JAMES MD THE FLUID IS EXAMINED MICROSCOPICALLY WITH AND WITHOUT POLARIZED LIGHT AND WITH AND WITHOUT FIRST ORDER RED JEWELRY MOLD MAKER UNDER 10X AND 40X MAGNIFICATIONS. ??THE FLUID CONTAINS FEW WHITE BLOOD CELLS AND FEW RED BLOOD CELLS. THERE ARE NO MONOSODIUM URATE (MSU OR GOUT) OR CALCIUM PYROPHOSPHATE DIHYDRATE (CPPD OR PSEUDOGOUT) CRYSTALS IDENTIFIED. STRUCTURE OF RIGHT KNEE REGION / Unknown 03/25/2022 12:00 PM CDT Soledad Lucas MD BODY FLUIDS AND STOOLS ORDERABLE S Final Result [facility] [address] [place] [address], [id number] * CELL COUNT W/ DIFF BODY FLUID (03/25/2022 12:00 PM CDT) SOURCE (FLUID) RIGHT KNEE 03/25/2022 9:58 PM CDT [facility] WBC (FLUID) 0.348 x10'3/uL 03/25/2022 9:58 PM CDT [facility] Comment:REFERENCE RANGE NOT ESTABLISHED RBC (FLUID) 0.012 x10'6/uL 03/25/2022 9:58 PM CDT [facility] Comment:REFERENCE RANGE NOT ESTABLISHED DIFFERENTIAL MANUAL DIFFERENTIAL PERFORMED ON CONCENTRATED CYTOSPIN 03/25/2022 8:45 PM CDT [facility] CELLS COUNTED 100 No COUNTED 03/25/2022 9:58 PM CDT [facility] SEGS (FLUID) 31 % 03/25/2022 11:04 PM CDT [facility] LYMPHS (FLUID) 28 % 03/25/2022 11:04 PM CDT [facility] OTHER MONONUCLEAR CELLS (FLD) 41 % 03/25/2022 11:04 PM CDT [facility] STRUCTURE OF RIGHT KNEE REGION / Unknown 03/25/2022 12:00 PM CDT us Soledad Lucas MD BODY FLUIDS AND STOOLS ORDERABLE S Final Result Performing Organization Address [facility] de Phone Number [facility] [address] [place] [address], [id number] * CULTURE, ROUTINE W/ GRAM STAIN (AEROBIC) (03/25/2022 12:00 PM CDT) SPEC DESCRIPTION KNEE,RIGHT 03/25/2022 8:45 PM CDT [facility] SPECIAL REQUESTS NO SPECIAL REQUEST 03/25/2022 8:45 PM CDT [facility] GRAM STAIN RESULT RARE NEUTROPHILS SEEN 03/25/2022 10:09 PM CDT [facility] GRAM STAIN RESULT NO ORGANISMS SEEN 03/25/2022 10:09 PM CDT [facility] CULTURE RESULT NO GROWTH 5 DAYS 03/31/2022 10:44 AM CDT [facility] STRUCTURE OF RIGHT KNEE REGION / Unknown 03/25/2022 12:00 PM CDT 03/25/2022 9:04 PM CDT us Soledad Lucas MD MICROBIOLOGY - GENERAL ORDERABLE S Final Result [facility] [address] [place] [address], [id number] documented in this encounter Visit Diagnoses Not on filedocumented in this encounter Additional Health Concerns Assessment Noted Time PHQ-9 Depression Total Score: 1 09/29/19 22 10:03 AM RETAIL PHARMACY MANAGER documented as of this encounter Care Teams Investigator Narcotics Relationship Specialty Start Date End Date Soledad Lucas MD [facility] [address] PCP - General INTERNAL MEDICINE 09/29/21 documented as of this encounter
--- OUTSIDE RECORDS SUMMARY | 2024-08-03 03:26 | XMS_ITS | Encounter Summary ---
Author Organization [facility] Address [address] [place] [address]. [address] [address] Care Team Providers Care Forensic Accountant Name Role Phone Soledad Lucas MD Primary Care Provider [phone] Reason for Visit * Reason Onset Date Comments Medication 03/31/2022 Encounter Details Date Type Department Care Team (Late st Contact Info) Description 03/31/2022 Telephone [facility] Mult[facility]pecialty Care - [address] [place] [address] Soledad Lucas MD [address] [place] [address] [address] [place] [address] Medication Social History Tobacco Use [...] Progress Notes * Soledad Lucas MD - 03/31/2022 3:24 PM CDT Percocet sent again to preferred pharmacy. documented in this encounter Plan of Treatment Upcoming Encounters Date Type Department Care Team (Late st Contact Info) Description 08/19/2024 9:00 AM EDUCATION OFFICER [facility] [address] [place] [address] Soledad Lucas MD [address] [address] 12/16/2024 10:40 AM CDT [facility] 3 [facility] [address] [place] [address] Ramsey Oakley MD 3 [facility] [address] [place] [address] documented as of this encounter Visit Diagnoses Diagnosis Primary osteoarthritis of right knee Primary localized osteoarthrosis, lower leg documented in this encounter Additional Health Concerns Assessment Noted Time PHQ-9 Depression Total Score: 1 09/29/19 10:03 AM EDUCATION OFFICER documented as of this encounter Care Teams Forensic Accountant Relationship Specialty [place] [address] [place] [address] PCP - General INTERNAL MEDICINE 09/29/21 documented as of this encounter
--- OUTSIDE RECORDS SUMMARY | 2024-08-03 03:26 | XMS_ITS | Encounter Summary ---
Author Organization [facility] Address [address] [place] [address]. [place], [place] [address] [place] [address] Care Team Providers Care Prototype Machinist Name Role Phone Soledad Lucas MD Primary Care Provider [phone] Reason for Visit * Reason Onset Date Comments Results 01/10/2022 Talked with mio ent and let him know about CXR and also talked ti him about his prescriptions. At this moment there is no further questions. Encounter Details Date Type Department Care Team (Late st Contact Info) Description 01/10/2022 Telephone [facility] Mult[facility]ialty Care - [place] [address] [address] [place] [address] Soledad Lucas MD [address] [place] [address] [phone] Results (Talked with patient and let him know about CXR and also talked ti him about his prescriptions. At this moment there is no further questions. ) Social History Tobacco Use Types Packs/Day [...] st Contact Info) Description 08/19/2024 9:00 AM HOT WATER HEATER INSTALLER [facility] [place] [address] [address] [place] [address] Soledad Lucas MD [address] [place] [address] 12/16/2024 10:40 AM CDT [facility] 3 [facility] [place] [address] Ramsey Oakley MD 3 [facility] [address] [place] [address] documented as of this encounter Visit Diagnoses Not on filedocumented in this encounter Additional Health Concerns Assessment Noted Time PHQ-9 Depression Total Score: 1 09/29/19 22 10:03 AM HOT WATER HEATER INSTALLER documented as of this encounter Care Teams Prototype Machinist Relationship Specialty Start Date End Date Soledad Lucas MD [address] [place] [address] PCP - General INTERNAL MEDICINE 09/29/21 documented as of this encounter
--- OUTSIDE RECORDS SUMMARY | 2024-08-03 03:26 | XMS_ITS | Encounter Summary ---
Author Organization [facility] Address [address] [place] [address]. [place] [address] Care Team Providers Care Family And Consumer Science Professor Name Role Phone Soledad Lucas MD Primary Care Provider [phone] Reason for Referral * Consultation/Treatment (Routine) - Closed Specialty Diagnoses / Procedures Referred By Prasanth santillan Referred To Contact ORTHOPAEDICS Diagnoses Primary osteoarthritis of both knees Procedures OFFICE/OUTPT VISIT,NEW,LEVL III OFFICE/OUTPT VISIT,NEW,LEVL IV OFFICE/OUTPT VISIT,NEW,LEVL V OFFICE/OUTPT VISIT,EST,LEVL III OFFICE/OUTPT VISIT,EST,LEVL IV OFFICE/OUTPT VISIT,EST,LEVL V Soledad Lucas MD [address] [address] Phone: tel: fax: Sidney Ruff MD [address] [place] [address] Phone: tel: fax: Referral ID Status Reason Start Date Expiration Date V isits Requested Visits Authorized [id number] Closed Specialty Services 04/07/2022 10/04/2022 6 6 Reason for Visit * Reason Onset Date Comments Referral 03/30/2022 Encounter Details Date Type Department Care Team (Late st Contact Info) Description 03/30/2022 Telephone [facility] - [place] 1188 [facility] [address] [place] [address] Soledad Lucas MD 1188 [facility] 157 [place] [address] Referral Social History Tobacco Use Types Packs/Day [...] Progress Notes * Soledad Lucas MD - 03/30/2022 4:39 PM CDT I am notified patient does not want to see orthopedics at this time. I did place a referral for patient to be seen by orthopedics for both knees. He has significant osteoarthritis of both knees. Had right knee surgery done in the past. Recently has been having recurrent knee joint effusions. Both knees have been drained on a couple of occasions. He has declined referral at this time. Noted. I followed up with the call and spoke to patient. According to patient, he did not understand why he was being called. Upon further explanation, patient is agreeable to be seen by orthopedics. New referral placed. Soledad Lucas MD Internal Medicine [facility], [facility]. documented in this encounter Plan of Treatment Upcoming Encounters Date Type Department Care Team (Late st Contact Info) Description 08/19/2024 9:00 AM ADVANCED PRACTICE RN [facility] [address] [place] [address] Soledad Lucas MD [address] [address] 12/16/2024 10:40 AM CDT Office Visit [facility] Care - [facility] 3 [facility] [address] [place] [address] Ramsey Oakley MD [address] [facility] [address] [place] [address] Scheduled Referrals Name Type Priority Associated Diagnoses Orde r Schedule Ambulatory referral to Orthopedics ([facility]) Referral Routine Primary osteoarthritis of both knees Ordered: 03/30/2022 documented as of this encounter Visit Diagnoses Diagnosis Primary osteoarthritis of both knees- Primary Primary localized osteoarthrosis, lower leg documented in this encounter Additional Health Concerns Assessment Noted Time PHQ-9 Depression Total Score: 1 09/29/19 10:03 AM ADVANCED PRACTICE RN documented as of this encounter Care Teams Family And Consumer Science Professor Relationship Specialty Start Date End Date Soledad Lucas MD [address] [place] [address] PCP - General INTERNAL MEDICINE 09/29/21 documented as of this encounter
--- OUTSIDE RECORDS SUMMARY | 2024-08-03 03:26 | XMS_ITS | Encounter Summary ---
Author Organization [facility] Address [address] [place] [address]. [address] [address] Care Team Providers Care Cub Reporter Name Role Phone Soledad Lucas MD Primary Care Provider [phone] Reason for Visit * Reason Onset Date Comments Results 05/11/2022 Encounter Details Date Type Department Care Team (Late st Contact Info) Description 05/11/2022 Telephone [facility] Medical Group Multispecialty Care - [place] [address] [address] [place] [address] Soledad Lucas MD [address] [place] [address] 157 [place] [address] Results Social History Tobacco Use [...] Progress Notes * Lois Mei MA - 05/11/2022 5:07 PM CDT Spoke with patient with MRI results and patient has no further questions at this time. He did receive a call from the neurosurgeons office ----- Message from Soledad Lucas MD sent at 05/10/2022 8:35 PM CDT ----- Please call patient. Patient has significant bony changes on multiple levels of the lower back. Some disc bulging noted at the different levels of his back with multiple levels showing narrowing of the space around nerves and would explain why he still has ongoing significant intermittent lower back pain. I have placed a referral for him to see neurosurgery. Thank you Soledad Lucas MD Internal Medicine [facility], [facility]. documented in this encounter Plan of Treatment Upcoming Encounters Date Type Department Care Team (Late st Contact Info) Description 08/19/2024 9:00 AM CASINO CONTROLLER [facility] [place] [address] [address] [place] [address] Soledad Lucas MD [address] [place] [address] 157 [place] [address] 12/16/2024 10:40 AM CDT [facility] 3 [facility]., [address] [place] [address] Ramsey Oakley MD 3 [facility] [address] [place] [address] documented as of this encounter Visit Diagnoses Not on filedocumented in this encounter Additional Health Concerns Assessment Noted Time PHQ-9 Depression Total Score: 1 09/29/19 22 10:03 AM CASINO CONTROLLER documented as of this encounter Care Teams Cub Reporter Relationship Specialty Start Date End Date Soledad Lucas MD [address] [place] [id number] PCP - General INTERNAL MEDICINE 09/29/21 documented as of this encounter
--- OUTSIDE RECORDS SUMMARY | 2024-08-03 03:26 | XMS_ITS | Encounter Summary ---
Author Organization [facility] Address [address] [place] [address]. [place], [place] [address] [place] [address] Care Team Providers Care Cheesemaker Helper Name Role Phone Soledad Lucas MD Primary Care Provider [phone] Encounter Details Date Type Department Care Team (Latest Contact Info) Description 04/13/2022 Travel Social History Tobacco Use Types Packs/Day [...] st Contact Info) Description 08/19/2024 9:00 AM POTTERY KILN BUILDER Office Visit [facility] Multispecialty Care - [place] [address] [address] [place] [address] Soledad Lucas MD [address] [place] [address] [address] [place] [address] 12/16/2024 10:40 AM CDT Office Visit [facility] Multispecialty Care - [facility] 3 [facility] [place] [address] Ramsey Oakley MD 3 [facility] [address] [place] [address] documented as of this encounter Visit Diagnoses Not on filedocumented in this encounter Additional Health Concerns Assessment Noted Time PHQ-9 Depression Total Score: 1 09/29/19 22 10:03 AM POTTERY KILN BUILDER documented as of this encounter Care Teams Cheesemaker Helper Relationship Specialty Start Date End Date Soledad Lucas MD [address] [address] PCP - General INTERNAL MEDICINE 09/29/21 documented as of this encounter
--- OUTSIDE RECORDS SUMMARY | 2024-08-03 03:26 | XMS_ITS | Encounter Summary ---
Author Organization [facility] Address [address] [place] [address]. [address] [address] Care Team Providers Care Cyber Systems Engineer Name Role Phone Soledad Lucas MD Primary Care Provider [phone] Reason for Referral * Imaging (Routine) - Closed Specialty Diagnoses / Procedures Referred By Prasanth santillan Referred To Contact RADIOLOGY Diagnoses Primary osteoarthritis of both knees Procedures XR KNEE RT 3V Soledad Lucas MD [address] [address] Phone: tel: fax: Referral ID Status Reason Start Date Expiration Date Visits Re quested Visits Authorized [id number] Closed 02/04/2022 03/07/2023 1 1 * Imaging (Routine) - Closed Specialty Diagnoses / Procedures Referred By Prasanth santillan Referred To Contact RADIOLOGY Diagnoses Primary osteoarthritis of both knees Procedures XR KNEE LT 3V Soledda Lucas MD [address] [address] Phone: tel: fax: Referral ID Status Reason Start Date Expiration Date Visits Re quested Visits Authorized [id number] Closed 02/04/2022 03/07/2023 1 1 Reason for Visit * Reason Comments Asthma Knee Pain Patient states his k nees are hurting him and would like something for the pain scale from 1-10 he says its an 8 Throat Problem Patient states he fe els like there is something stuck in his throat Encounter Details Date Type Department Care Team (Latest Contact Info) Description 02/04/2022 9:40 AM CDT Office Visit [facility] - [place] [address] [address] [address] [place] [address] Soledad Lucas MD 1188 [facility] [address] [place] [address] Asthma; Knee Pain (Patient states his knees are hurting him and would like something for the pain scale from 1-10 he says its an 8); Throat Problem (Patient states he feels like there is something stuck in his throat) Social History Tobacco Use Types Packs/Day Years Used Date Smoking Tobacco: Never Smokeless Tobacco: Never Tobacco Cessation:Counseling Given: Yes Comments:counsled by Dr Lucas Alcohol Use Standard Drinks/Week Comments Yes 0 [...] Sign Reading Time Taken Comments Blood Pressure 133/64 02/04/2022 9:52 AM CDT Pulse 71 02/04/2022 9:52 AM CDT Temperature 36.7 ??C (98 ??F) 02/04/2022 9:52 AM CDT Respiratory Rate 18 02/04/2022 9:52 AM CDT Oxygen Saturation 99% 02/04/2022 9:52 AM CDT Inhaled Oxygen Concentration - - Weight 100 kg (220 lb 6.4 oz) 02/04/2022 9:52 AM CDT Height 185.4 cm (6' 1 ) 02/04/2022 9:52 AM CDT Body Mass Index 29.08 02/04/2022 9:52 AM CDT documented in this encounter Patient Instructions * Patient Instructions* Soledad Lucas MD - 02/04/2022 10:21 AM CDT Follow up in 2 weeks for your knees. * Attachments The following attachments cannot be sent through Care Everywhere. * Asthma Discharge Instructions, Adult ([place]) documented in this encounter Progress Notes * Soledad Lucas MD - 02/04/2022 9:40 AM CDTSummary: Follow-up notes Images from the original note were not included. Internal Medicine Outpatient Progress Note CC: Asthma, Knee Pain (Patient states his knees are hurting him and would like something for the pain scale from 1-10 he says its an 8), and Throat Problem (Patient states he feels like there is something stuck in his throat) HPI: Juliet Stout is a 60-year-old -[place] male who presents for follow- up for asthma. Patient recently was seen for bronchitis and upper respiratory symptoms that led to a flareup of patient's asthma. Medications have since been adjusted. He is currently on Breo inhaler, albuterol rescue inhaler albuterol nebulizer. He tells me he is yet to secure his nebulizer machine. Currently his symptoms for asthma is stable though he continues to wheeze. He is yet to get his Breo inhaler. No prior history of pulmonary function test. Currently does not follow with pulmonary or allergy. Denies any concerns for chronic cough or shortness of breath with activity but wheezes. Has appropriate inhaler use technique. Uses his albuterol rescue inhaler about three times per week. Denies any ongoing chest tightness but notes discomfort in his throat which he has difficulty explaining. He has underlining osteoarthritis of multiple joints and tells me he has been using ibuprofen for pain and taking 200 mg of ibuprofen daily. He tells me the left knee looks lin. He has been seen by ortho in the past and surgery recommended but patient tells me he declined. He had his knees drained a couple of months ago. Problem List Patient Active Problem List Diagnosis [...] Substance Use Topics ??? Alcohol use: Yes Comment: Socially ??? Drug use: Yes Types: Marijuana Medications: Outpatient Medications Marked as Taking for the 02/04/22 encounter (Office Visit) with Soledad Lucas MD [...] at bedtime. 90 tablet 2 ??? cyclobenzaprine 10 MG tablet Take 10 [...] breakfast. 60 tablet 3 ??? methylPREDNISolone, ABBE, 4 MG tablet 6 TABLETS ON DAY [...] 21 tablet 0 ??? vitamin D2, ergocalciferol, 71059 UNITS capsule Take 1 capsule (50,000 Units [...] orthopnea, claudication, leg swelling and PND. Gastrointestinal: Positive for heartburn. Negative for abdominal pain, blood in stool, constipation, diarrhea, melena, nausea and vomiting. Genitourinary: Negative. Musculoskeletal: Positive for joint pain. Negative for back pain, falls, myalgias and neck pain. Skin: Negative. Neurological: Negative. Objective: Filed Vitals: 02/04/22 0952 BP: 133/64 Pulse: 71 Resp: 18 Temp: 98 ??F (36.7 ??C) TempSrc: Temporal SpO2: 99% Weight: 100 kg (220 lb 6.4 oz) Height: 6' 1 (1.854 m) Body mass index is 29.08 kg/m??. General alert, cooperative, no distress HEENT [...] Psych Normal mood and affect MSK No synovitis,left knee bony tenderness, left knee joint effusion. Lymph No cervical or supraclavicular adenopathy Assessment and Plan: Encounter Diagnose(s) ICD-10-CM ICD-9-CM SNOMED CT(R) 1. Mild intermittent asthma without complication J45.20 493.90 MILD INTERMITTENT ASTHMA methylPREDNISolone, ABBE, 4 MG tablet fluticasone furoate-vilanterol (BREO ELLIPTA) 200-25 MCG/INH inhaler albuterol (2.5 MG/3ML) 0.083% nebulizer solution albuterol sulfate HFA 108 (90 Base) MCG/ACT inhaler 2. Primary osteoarthritis of both knees M17.0 715.16 PRIMARY GONARTHROSIS, BILATERAL methylPREDNISolone, ABBE, 4 MG tablet XR KNEE LT 3V XR KNEE RT 3V oxyCODONE-acetaminophen (PERCOCET) 7.5-325 MG tablet XR KNEE LT 3V XR KNEE RT 3V 3. Primary osteoarthritis of right knee M17.11 715.16 OSTEOARTHRITIS OF RIGHT KNEE JOINT 4. Gastroesophageal reflux disease without esophagitis K21.9 530.81 GASTROESOPHAGEAL REFLUX DISEASEWITHOUT ESOPHAGITIS omeprazole 40 MG capsule 5. Primary hypertension I10 401.9 ESSENTIAL HYPERTENSION losartan- hydroCHLOROthiazide 50-12.5 MG tablet 1. Mild intermittent asthma without complication - stable but uncontrolled; will need step up in therapy - methylPREDNISolone, ABBE, 4 MG tablet; 6 TABLETS ON DAY ONE, 5 TABLETS DAY TWO, 4 TABLETS DAY THREE, 3 TABLETS DAY FOUR, 2 TABLETS DAY FIVE, AND 1 TABLET DAY SIX Dispense: 1 each; Refill: 0 - add fluticasone furoate-vilanterol (BREO ELLIPTA) 200-25 MCG/INH inhaler; Inhale 1 puff into the lungs daily. Dispense: 60 each; Refill: 2 - continue albuterol (2.5 MG/3ML) 0.083% nebulizer solution; Take 3 mLs (2.5 mg total) by nebulization every 6 (six) hours as needed for Wheezing. Dispense: 360 mL; Refill: 3 - continue albuterol sulfate HFA 108 (90 Base) MCG/ACT inhaler; Inhale 2 puffs into the lungs every6 (six) hours as needed for Wheezing. Dispense: 18 g; Refill: 5 2. Osteoarthritis knees bilateral - XR KNEE LT 3V; Future - XR KNEE RT 3V; Future - oxyCODONE-acetaminophen (PERCOCET) 7.5-325 MG tablet; Take 1 tablet by mouth every 8 (eight) hours as needed for Pain. Indications: Chronic Pain Dispense: 21 tablet; Refill: 0 - XR KNEE LT 3V - XR KNEE RT 3V - discontinue NSAIDs - pain contract form signed today - follow up in 2 weeks- may need knee joint drained again- awaiting xrays - methylPREDNISolone, ABBE, 4 MG tablet; 6 TABLETS ON DAY ONE, 5 TABLETS DAY TWO, 4 TABLETS DAY THREE, 3 TABLETS DAY FOUR, 2 TABLETS DAY FIVE, AND 1 TABLET DAY SIX Dispense: 1 each; Refill: 0 4. Gastroesophageal reflux disease without esophagitis - omeprazole 40 MG capsule; Take 1 capsule (40 mg total) by mouth daily. Dispense: 30 capsule; Refill: 0 5. Primary hypertension - losartan-hydroCHLOROthiazide 50-12.5 MG tablet; Take 1 tablet by mouth daily. Dispense: 90 tablet; Refill: 1 - controlled; wants refills Counseling given: Yes Comment: counsled by Dr [...] was at least in part performed using [employer] and there may be some inherent flaws in this outside cutter due to the nature of this program. Soledad Lucas MD Internal Medicine [facility], [facility]. documented in this encounter Plan of Treatment Upcoming Encounters Date Type Department Care Team (Late st Contact Info) Description 08/19/2024 9:00 AM APPLE CHECKER [facility] [address] [address] [address] [place] [address] Soledad Lucas MD [address] [facility] [address] [place] [address] 12/16/2024 10:40 AM CDT [facility] [address] [facility] [address] [place] [address] Ramsey Oakley MD [address] [facility] [address] [place] [address] documented as of this encounter Procedures Procedure Name Priority Date/Time Associated Diagnosis Comments XR KNEE RT 3V Routine 02/04/2022 12:00 AM CDT Primary osteoarthritis of both knees XR KNEE LT 3V Routine 02/04/2022 12:00 AM CDT Primary osteoarthritis of both knees documented in this encounter Results * XR KNEE RT 3V (02/04/2022 12:00 AM CDT) Anatomical Region Laterality Modality Knee Radiographic Liv ging 02/04/2022 us Soledad Lucas MD GENERAL IMAGING Final Result * XR KNEE LT 3V (02/04/2022 12:00 AM CDT) Anatomical Region Laterality Modality Knee Radiographic Liv ging 02/04/2022 us Soledad Lucas MD GENERAL IMAGING Final Result documented in this encounter Visit Diagnoses Diagnosis Mild intermittent asthma without complication (HHS/HCC)- Primary Unspecified asthma Primary osteoarthritis of both knees Primary localized osteoarthrosis, lower leg Primary osteoarthritis of right knee Primary localized osteoarthrosis, lower leg Gastroesophageal reflux disease without esophagitis Esophageal reflux Primary hypertension Unspecified essential hypertension documented in this encounter Additional Health Concerns Assessment Noted Time PHQ-9 Depression Total Score: 1 09/29/19 22 10:03 AM APPLE CHECKER documented as of this encounter Care Teams Cyber Systems Engineer Relationship Specialty Start Date End Date Soledad Lucas MD [address] [address] PCP - General INTERNAL MEDICINE 09/29/21 documented as of this encounter
--- OUTSIDE RECORDS SUMMARY | 2024-08-03 03:27 | XMS_ITS | Encounter Summary ---
Author Organization [facility] Address [address] [place] [address]. [place], [place] [address] [place] [address] Care Team Providers Care Extractor Machine Operator Name Role Phone Soledad Lucas MD Primary Care Provider [phone] Reason for Visit * Reason Comments Image (SCAN) Encounter Details Date Type Department Care Team (Latest Contact Info) Description 01/07/2022 Scan HEALTH INFO SRVCS Scanned, Documents Image (SCAN) Social History Tobacco Use Types [...] ( Contact Info) Description 08/19/2024 9:00 AM HOME THEATER EXPERIENCE EXPERT Office Visit [facility] Multispecialty Care - [address] [place], [place] [address] Soledad Lucas MD [address] [facility] [address] [place] [address] 12/16/2024 10:40 AM CDT Office Visit [facility] Multispecialty Care - [facility] [address] [place] [address] Ramsey Oakley MD [address] [place] [address] documented as of this encounter Procedures Procedure Name Priority Date/Time Associated Diagnosis Comments IMAGE GENERIC 01/07/2022 documented in this encounter Results * IMAGE GENERIC (01/07/2022) Anatomical Region Laterality Modality Other 01/07/2022 Narrative 01/07/2022 Ordered by an unspecified provider. us Documents Scanned SCANNING Final Result documented in this encounter Visit Diagnoses Not on filedocumented in this encounter Additional Health Concerns Assessment Noted Time PHQ-9 Depression Total Score: 1 09/29/19 22 10:03 AM HOME THEATER EXPERIENCE EXPERT documented as of this encounter Care Teams Extractor Machine Operator Relationship Specialty Start Date End Date Soledad Lucas MD [address] [facility] [address] [place] [address] PCP - General INTERNAL MEDICINE 09/29/21 documented as of this encounter
--- OUTSIDE RECORDS SUMMARY | 2024-08-03 03:27 | XMS_ITS | Encounter Summary ---
Author Organization [facility] Address [address] [place] [address]. [place], [place] [address] [place] [address] Care Team Providers Care Public Health Microbiologist Name Role Phone Soledad Lucas MD Primary Care Provider [phone] Encounter Details Date Type Department Care Team (Latest Contact Info) Description 09/29/2021 Travel Social History Tobacco Use Types Packs/Day Years Used Date Smoking Tobacco: Never Smokeless Tobacco: Never Comments:counsled by Dr Alacla e Alcohol Use Standard Drinks/Week Comments Yes [...] suspected to have Coronavirus/COVID-19? No / Unsure 09/29/2021 8:43 AM HAMMERER TAB documented as of this encounter Plan of Treatment Upcoming Encounters Date Type Department Care Team (Late st Contact Info) Description 08/19/2024 9:00 AM HAMMERER TAB Office Visit [facility] Multispecialty Care - [address] [address] [address] [place] [address] Soledad Lucas MD [address] [place] [address] [address] [place] [address] 12/16/2024 10:40 AM CDT Office Visit [facility] Multispecialty Care - [facility] [address] [facility] [place] [address] Ramsey Oakley MD 3 [facility] [address] [place] [address] documented as of this encounter Visit Diagnoses Not on filedocumented in this encounter Additional Health Concerns Assessment Noted Time PHQ-9 Depression Total Score: 1 09/29/19 10:03 AM HAMMERER TAB documented as of this encounter Care Teams Public Health Microbiologist Relationship Specialty Start Date End Date Soledad Lucas MD [address] [address] PCP - General INTERNAL MEDICINE 09/29/21 documented as of this encounter
--- OUTSIDE RECORDS SUMMARY | 2024-08-03 03:27 | XMS_ITS | Encounter Summary ---
Author Organization [facility] Address [address] [place] [address]. [place], [place] [address] [place] [address] Care Team Providers Care Quartz Miner Name Role Phone Soledad Lucas MD Primary Care Provider [phone] Encounter Details Date Type Department Care Team (Latest Contact Info) Description 10/13/2021 Travel Social History Tobacco Use Types Packs/Day [...] suspected to have Coronavirus/COVID-19? No / Unsure 10/13/2021 9:45 AM MORGUE TECHNICIAN documented as of this encounter Plan of Treatment Upcoming Encounters Date Type Department Care Team (Late st Contact Info) Description 08/19/2024 9:00 AM MORGUE TECHNICIAN Office Visit [facility] Multispecialty Care - [place] [address] [address] [address] [place] [address] Soledad Lucas MD [address] [place] [address] [address] [place] [address] 12/16/2024 10:40 AM CDT Office Visit [facility] Multispecialty Care - [facility] [address] [facility] [address] [place] [address] Ramsey Oakley MD [address] [facility] [address] [place] [address] documented as of this encounter Visit Diagnoses Not on filedocumented in this encounter Additional Health Concerns Assessment Noted Time PHQ-9 Depression Total Score: 1 09/29/19 10:03 AM MORGUE TECHNICIAN documented as of this encounter Care Teams Quartz Miner Relationship Specialty Start Date End Date Soledad Lucas MD [address] [address] PCP - General INTERNAL MEDICINE 09/29/21 documented as of this encounter
--- OUTSIDE RECORDS SUMMARY | 2024-08-03 03:27 | XMS_ITS | Encounter Summary ---
Author Organization [facility] Address [address] [place] [address]. [place], [place] [address] [place] [address] Care Team Providers Care Analytical Statistician Name Role Phone Soledad Lucas MD Primary Care Provider [phone] Reason for Visit * Reason Comments New Patient left knee pain * Consultation/Treatment (Routine) - Closed Specialty Diagnoses / Procedures Referred By Prasanth santillan Referred To Contact ORTHOPAEDICS Diagnoses Acute pain of left knee Soledad Lucas MD [address] [address] Phone: tel: fax: Anatoliy Sanz MD [address] [address] Phone: tel: fax: Referral ID Status Reason Start Date Expiration Date V isits Requested Visits Authorized [id number] Closed Specialty Services 09/27/2021 03/26/2022 6 6 Encounter Details Date Type Department Care Team (Late st Contact Info) Description 10/06/2021 1:00 PM PODIATRIC MEDICINE PROFESSOR Office Visit [facility] - [address] [address] Anatoliy Sanz MD [address] [place] [address] New Patient (left knee pain ) Social History Tobacco Use Types Packs/Day Years Used Date Smoking Tobacco: Never Smokeless Tobacco: Never Tobacco Cessation:Counseling Given: No Comments:counsled by Dr Lucas Alcohol Use Standard [...] suspected to have Coronavirus/COVID-19? No / Unsure 10/06/2021 1:31 PM PODIATRIC MEDICINE PROFESSOR documented as of this encounter Last Filed Vital Signs Vital Sign Reading Time Taken Comments Blood Pressure 122/76 10/06/2021 1:59 PM PODIATRIC MEDICINE PROFESSOR Pulse 71 10/06/2021 1:59 PM PODIATRIC MEDICINE PROFESSOR Temperature - - Respiratory Rate - - Oxygen Saturation - - Inhaled Oxygen Concentration - - Weight 97.5 kg (215 lb) 10/06/2021 1:59 PM PODIATRIC MEDICINE PROFESSOR Height 185.4 cm (6' 1 ) 10/06/2021 1:59 PM PODIATRIC MEDICINE PROFESSOR Body Mass Index 28.37 10/06/2021 1:59 PM PODIATRIC MEDICINE PROFESSOR documented in this encounter Progress Notes * Anatoliy Sanz MD - 10/06/2021 1:00 PM CST Images from the original note were not included. Office Visit Reason for Visit: New Patient (left knee pain ) History of Present Illness: Juliet Stout is a fairly healthy 60-year-old male presents for evaluation of chronic left knee pain. He reports generalized left knee pain that is worse with activity. He has been managed in the past with activity modification, occasional referral to physical therapy, drainage of knee effusionsand various medications to include narcotics and anti-inflammatories. Pain occasionally improves with drainage of his effusions. He is not sure if he has had steroid injections into his knee. He has not had any viscosupplementation. He has had no recent physical therapy referrals. Pain is mostly along the medial side. Review of Systems: Constitutional: Negative for chills, fever and significant weight changes. Respiratory: Negative for shortness of breath, dyspnea. Cardiovascular: Negative for chest pain. Gastrointestinal: Negative for abdominal pain, constipation, diarrhea, nausea and vomiting. Genitourinary: Negative for dysuria. Outpatient Medications Marked as Taking for the 10/06/21 encounter (Office Visit) with Anatoliy Sanz MD Medication Sig Dispense Refill ??? albuterol sulfate HFA 108 (90 Base) MCG/ACT inhaler Inhale 2 puffs into the lungs every 6 (six)hours as needed for Wheezing. 18 g 5 ??? cyclobenzaprine 10 MG tablet Take 10 mg by mouth 3 (three) times daily as needed for Muscle Spasms. ??? lisinopril-hydroCHLOROthiazide 20-12.5 MG tablet Take 1 tablet by mouth daily. 30 tablet 1 ??? meloxicam 15 MG tablet Take 1 tablet (15 mg total) by mouth daily. 20 tablet 0 ??? metFORMIN (GLUCOPHAGE) 500 MG tablet Take 1 tablet (500 mg total) by mouth daily with breakfast. 60 tablet 3 ??? vitamin D2, ergocalciferol, 20997 UNITS capsule Take 1 capsule (50,000 Units total) by mouth weekly. 12 capsule 1 Current Facility-Administered Medications for the 10/06/21 encounter (Office Visit) with Anatoliy Sanz MD Medication Dose Route Frequency Provider Last Rate Last Admin ??? BUpivacaine 0.5 % (MARCAINE) 0.5 % injection 4 mL 4 mL Other Once Anatoliy Sanz MD ??? lidocaine (XYLOCAINE) 2 % injection 4 mL 4 mL Other Once Anatoliy Sanz MD ??? triamcinolone acetonide (KENALOG-40) injection 80 mg 80 mg Intra-articular Once Anatoliy Sanz MD No Known Allergies Past Medical History: Diagnosis Date ??? Arthritis ??? Hypertension Past Surgical History: Procedure Laterality Date ??? KNEE ARTHROSCOPY Right ??? KNEE SURGERY Right Unsure of exactly what they did to patella. Social History Tobacco Use ??? Smoking status: Never Smoker ??? Smokeless tobacco: Never Used ??? Tobacco comment: counsled by Dr Lucas Vaping Use ??? Vaping Use: Never used Substance Use Topics ??? Alcohol use: Yes Comment: Socially ??? Drug use: Yes Types: Marijuana Family History Problem Relation Name Age of Onset ??? Cancer Mother ??? Prostate Cancer Father ??? Cancer Sister ??? Diabetes Sister ??? Cancer Brother Vital Signs: Filed Vitals: 10/06/21 1359 BP: 122/76 Pulse: 71 Weight: 97.5 kg (215 lb) Height: 6' 1 (1.854 m) Estimated BMI Today: Estimated body mass index is 28.37 kg/m?? as calculated from the following: Height as of this encounter: 6' 1 (1.854 m). Weight as of this encounter: 97.5 kg (215 lb). Physical Exam: Constitutional: he is oriented to person, place, and time. he appears well- developed and well-nourished. No distress. HENT: Head: Normocephalic and atraumatic. Eyes: Conjunctivae are normal. No scleral icterus. Neck: Neck supple. Cardiovascular: Regular rate and intact distal pulses. Pulmonary/Chest: Effort normal. No stridor. No respiratory distress. Neurological: he is alert and oriented to person, place, and time. Skin: Skin is warm and dry. Psychiatric: he has a normal mood and affect. Nursing note and vitals reviewed. Ortho Exam: Physical examination left knee demonstrates mild genu varum deformity. Range of motion is 0 to 130 degrees. He stable to varus valgus stress at 0 and 30 degrees. He has a negative anterior and posterior drawer exam. He has some medial joint line tenderness. He has mild effusion. There are no breaksin the skin. Imaging: Radiographs of left knee were reviewed which demonstrate tricompartmental degenerative changes mostnotably within the medial compartment. Assessment/Plan: 60-year-old male with chronic left knee pain related to left knee osteoarthritis. We had a thoroughdiscussion regarding knee osteoarthritis and treatment options both conservative and operative in nature. Patient is not interested in surgery at this time. Recommend continue with conservative care to include activity modification, medical management, possible referral to physical therapy, and consideration for intra-articular injection therapy such as with steroids or viscosupplementation. Patient is interested in a steroid shot today. Plan for steroid injection today and he may follow-up as needed in the future should pain return or he like to discuss further treatment options. Procedure: After discussing risks, benefits and indications for proposed injection and obtaining verbal consent from the patient, the correct site was confirmed with the patient and prepped sterilely. A sterilesolution of 4 cc 2 % lidocaine, 4 cc 0.5% Marcaine, and 2 cc 40mg Kenalog was injected into the left knee using a superolateral approach. A sterile bandage was applied. The procedure was well tolerated. 20 Minutes spent total on patient encounter today with review of chart and studies, interval history and physical exam, decision making process, therapeutic/diagnostic procedures, educational and prevention counseling. Encounter Diagnose(s) ICD-10-CM ICD-9-CM SNOMED CT(R) 1. Arthralgia of left lower leg M25.562 719.46 PAIN IN LEFT LOWER LIMB Drain/Inject Large Joint/Bursa (eg, shoulder, hip, knee joint, subacromial bursa) BUpivacaine 0.5 % (MARCAINE) 0.5 % injection 4 mL triamcinolone acetonide (KENALOG-40) injection 80 mg lidocaine (XYLOCAINE) 2 % injection 4 mL ANATOLIY SANZ MD 10/06/2021 Portions of this note were dictated using [employer] speech recognition software. Occasional wrong wordor sound-alike substitutions may have occurred due to the inherent limitations of voice recognition software. Please read the chart carefully and recognize, using context, where the substitutions may have occurred. ATRIC MEDICINE PROFESSOR documented in this encounter Plan of Treatment Upcoming Encounters Date Type Department Care Team (Late st Contact Info) Description 08/19/2024 9:00 AM PODIATRIC MEDICINE PROFESSOR [facility] [place] [address] [address] [place] [address] Soledad Lucas MD [address] [place] [address] 12/16/2024 10:40 AM CDT Office Visit [facility] - [address] [place] [address] Ramsey Oakley MD [address] [place] [address] [address] [place] [address] Scheduled Orders Name Type Priority Associated Diagnoses Orde r Schedule Drain/Inject Large Joint/Bursa (eg, shoulder, hip, knee joint, subacromial bursa) Procedures Routine Arthralgia of left lower leg Ordered: 10/06/2021 documented as of this encounter Visit Diagnoses Diagnosis Arthralgia of left lower leg- Primary Pain in joint, lower leg documented in this encounter Administered Medications Inactive Administered Medications - up to 3 most recent administrations Medication Order MAR Action Action Date Dose Rate Site BUpivacaine 0.5 % (MARCAINE) 0.5 % injection 4 mL 4 mL, Other, Once, 1 dose, On Mon10/06/21 at 1445Indications:Arthralgia of left lower leg Given 10/06/2021 2:27 PM PODIATRIC MEDICINE PROFESSOR 4 mLs lidocaine (XYLOCAINE) 2 % injection 4 mL 4 mL, Other, Once, 1 dose, On Mon10/06/21 at 1445Indications:Arthralgia of left lower leg Given 10/06/2021 2:28 PM PODIATRIC MEDICINE PROFESSOR 4 mLs triamcinolone acetonide (KENALOG-40) injection 80 mg 80 mg, Intra-articular, Once, 1 dose, On Mon10/06/21 at 1445, Shake WellIndications:Arthralgia of left lower leg Given 10/06/2021 2:27 PM PODIATRIC MEDICINE PROFESSOR 80 mg Lef t Knee documented in this encounter Additional Health Concerns Assessment Noted Time PHQ-9 Depression Total Score: 1 09/29/19 10:03 AM PODIATRIC MEDICINE PROFESSOR documented as of this encounter Care Teams Analytical Statistician Relationship Specialty Start Date End Date Soledad Lucas MD [address] [address] PCP - General INTERNAL MEDICINE 09/29/21 documented as of this encounter
--- OUTSIDE RECORDS SUMMARY | 2024-08-03 03:27 | XMS_ITS | Encounter Summary ---
Author Organization [facility] Address [address] [place] [address]. [place], [place] [address] [place] [address] Care Team Providers Care Supervisor Boat Outfitting Name Role Phone Soledad Lucas MD Primary Care Provider [phone] Reason for Referral * Imaging (Routine) - Closed Specialty Diagnoses / Procedures Referred By Prasanth santillan Referred To Contact RADIOLOGY Diagnoses Moderate persistent asthma with acute exacerbation (HHS/HCC) Acute bronchitis, unspecified organism Procedures XR [place] [address] [place] [address] Phone: tel: fax: Referral ID Status Reason Start Date Expiration Date Visits Re quested Visits Authorized [id number] Closed 01/07/2022 02/06/2023 1 1 Reason for Visit * Reason Comments Wheezing Back Pain Patient has been cou ghing hard and possibly hurt his back Cough Encounter Details Date Type Department Care Team (Latest Contact Info) Description 01/07/2022 9:40 AM CDT Office Visit [facility] - [place] [address] [address] [place] [address] Soledad Lucas MD [address] [id number] Wheezing ; Back Pain (Patient has been coughing hard and possibly hurt his back); Cough Social History Tobacco Use Types Packs/Day Years [...] Sign Reading Time Taken Comments Blood Pressure 145/86 01/07/2022 10:23 AM CDT Pulse 78 01/07/2022 9:52 AM CDT Temperature 37.1 ??C (98.8 ??F) 01/07/2022 9:52 AM CD T Respiratory Rate 18 01/07/2022 9:52 AM CDT Oxygen Saturation 100% 01/07/2022 9:52 AM CDT Inhaled Oxygen Concentration - - Weight 96.4 kg (212 lb 9.6 oz) 01/07/2022 9:52 A M CDT Height 185.4 cm (6' 1 ) 01/07/2022 9:52 AM CDT Body Mass Index 28.05 01/07/2022 9:52 AM CDT documented in this encounter Patient Instructions * Patient Instructions* Soledad Lucas MD - 01/07/2022 10:18 AM CDT Follow up if not getting better. See me back in 4 weeks. * Attachments The following attachments cannot be sent through Care Everywhere. * Asthma in Adults (Indian) documented in this encounter Progress Notes * Soledad Lucas MD - 01/07/2022 9:40 AM CDTAddended by: SOLEDAD LUCAS on: 01/07/2022 07:06 PM Modules accepted: Level of Service * Soledad Lucas MD - 01/07/2022 9:40 AM CDTSummary: Follow-up notes Images from the original note were not included. Internal Medicine Outpatient Progress Note CC: Wheezing , Back Pain (Patient has been coughing hard and possibly hurt his back), and Cough HPI: Juliet Stout is a 60-year-old -Portuguese male who presents for a visit today for concernsfor upper respiratory symptoms and worsening asthma symptoms. Patient with underlining asthma currently on albuterol inhaler only due to prior mild symptoms. According to patient, his symptoms started about a week ago with mild upper respiratory symptoms that have progressively gotten worse. He admits to ongoing worsening cough which is productive of light yellow sputum. This has been associated with mild left-sided chest discomfort on coughing. Denies any f ever or chills. Is not aware of any sick contacts. He was seen at an urgent care yesterday and had negative COVID test. Denies any active sore throat. Denies any fever or chills. No loss of smell or loss of taste. Patient tells me he is needing to use his albuterol inhaler at least 3 times per day.Notes associated ongoing wheezing. He is present at today's visit with his . He was prescribed Tessalon Perles and prednisone but did not mushroom picker yet. Patient concerned and decided to report at today's visit. Patient is a never smoker. Patient would like refills on his metformin. He tells me he lost his prescription. Problem List Patient Active Problem List [...] Outpatient Medications Marked as Taking for the 01/07/22 encounter (Office Visit) with Soledad Lucas MD Medication Sig Dispense Refill ??? acetaminophen CR (TYLENOL 8 HOUR ARTHRITIS PAIN) 650 MG Tab CR 8 hr tablet Take 1 tablet (650 mg total) by mouth 3 (three) times daily as needed. 60 tablet 3 ??? albuterol (2.5 MG/3ML) 0.083% nebulizer solution [...] for four days. 6 tablet 0 ??? benzonatate (TESSALON PERLES) 100 MG capsule Take 1 capsule (100 mg total) by mouth 3 (three) times daily as needed for Cough. 20 capsule 0 ??? cyclobenzaprine 10 MG tablet Take [...] hours as needed. 1 Device 0 ??? predniSONE 20 MG tablet Take 2 tablets (40 mg total) by mouth daily for 5 days. 10 tablet 0 ??? vitamin D2, ergocalciferol, 32771 UNITS capsule Take 1 capsule (50,000 Units total) by mouth weekly. 12 capsule 1 Allergies: Allergies Allergen Reactions ??? Lisinopril Swelling Swollen lips Review of Systems Constitutional: Positive for malaise/fatigue (Mainly fatigue). Negative for chills, diaphoresis, fever and weight loss. HENT: Positive for congestion. Negative for ear discharge, ear pain, hearing loss, nosebleeds, sinus pain, sore throat and tinnitus. Eyes: Negative. Respiratory: Positive for cough, sputum production and wheezing. Negative for hemoptysis, shortnessof breath and stridor. Cardiovascular: Negative for chest pain, palpitations, orthopnea, claudication, leg swelling and PND. Gastrointestinal: Negative. Genitourinary: Negative. Musculoskeletal: Negative. Neurological: Negative. Objective: Filed Vitals: 01/07/22 0952 01/07/22 1023 BP: (!) 140/79 (!) 145/86 Pulse: 78 Resp: 18 Temp: 98.8 ??F (37.1 ??C) TempSrc: Temporal SpO2: 100% Weight: 96.4 kg (212 lb 9.6 oz) Height: 6' 1 (1.854 m) Body mass index is 28.05 kg/m??. General alert, cooperative, no distress, coughing intermittently, does not appear acutely ill. Sitting comfortably in the examination chair, mild wheezing noticed HEENT EOM's intact. Oral mucosa normal. Nasal septum is midline. Neck Supple, symmetrical, trachea midline, no adenopathy, no thyromegaly, no JVD. Lungs mild respiratory distress. Using somewhat of accessory muscles. Slightly decreased air entry bilaterally with mild wheezing. No obvious crackles. Heart Regular rate and regular rhythm. [...] bronchitis, unspecified organism J20.9 466.0 ACUTE BRONCHITIS RAPID STREP A predniSONE 20 MG tablet azithromycin (ZITHROMAX Z-ABBE) 250 MG tablet XR CHEST PA+LAT benzonatate (TESSALON PERLES) 100 MG capsule albuterol (2.5 MG/3ML) 0.083% nebulizer solution NEBULIZER DEVICE, DME, XR CHEST PA+LAT CULTURE STREP A (MG/SJS/SMD Only) CULTURE STREP A (MG/SJS/SMD Only) 2. Moderate persistent asthma with acute exacerbation J45.41 493.92 EXACERBATION OF MODERATE PERSISTENT ASTHMA methylPREDNISolone acetate (DEPO-Medrol) injection 40 mg fluticasone furoate-vilanterol (BREO ELLIPTA) 200-25 MCG/INH inhaler predniSONE 20 MG tablet azithromycin (ZITHROMAX Z-ABBE) 250 MG tablet XR CHEST PA+LAT benzonatate (TESSALON PERLES) 100 MG capsule albuterol (2.5 MG/3ML) 0.083% nebulizer solution NEBULIZER DEVICE, DME, XR CHEST PA+LAT CULTURE STREP A (MG/SJS/SMD Only) CULTURE STREP A (MG/SJS/SMD Only) 3. Prediabetes R73.03 790.29 PREDIABETES metFORMIN (GLUCOPHAGE) 500 MG tablet 1. Acute bronchitis, unspecified organism -Acute with worsening symptoms. - RAPID STREP A - predniSONE 20 MG tablet; Take 2 tablets (40 mg total) by mouth daily for 5 days. Dispense: 10 tablet; Refill: 0 - azithromycin (ZITHROMAX Z-ABBE) 250 MG tablet; Take 2 tablets by mouth on day one then 1 daily forfour days. Dispense: 6 tablet; Refill: 0 - XR CHEST PA+LAT; Future - benzonatate (TESSALON PERLES) 100 MG capsule; Take 1 capsule (100 mg total) by mouth 3 (three) times daily as needed for Cough. Dispense: 20 capsule; Refill: 0 - albuterol (2.5 MG/3ML) 0.083% nebulizer solution; Take 3 mLs (2.5 mg total) by nebulization every6 (six) hours as needed for Wheezing. Dispense: 360 mL; Refill: 3 - NEBULIZER DEVICE, DME,; Take 1 Device by nebulization every 6 (six) hours as needed. Dispense: 1 Device; Refill: 0 - XR CHEST PA+LAT - CULTURE STREP A (MG/SJS/SMD Only); Future - CULTURE STREP A (MG/SJS/SMD Only) -Follow-up if symptoms do not get better 2. Moderate persistent asthma with acute exacerbation -Acute asthmatic exacerbation likely secondary to viral versus bacterial infection -give methylPREDNISolone acetate (DEPO-Medrol) injection 40 mg -start fluticasone furoate-vilanterol (BREO ELLIPTA) 200-25 MCG/INH inhaler; Inhale 1 puff into thelungs daily. Dispense: 60 each; Refill: 2 - start predniSONE 20 MG tablet; Take 2 tablets (40 mg total) by mouth daily for 5 days. Dispense: 10 tablet; Refill: 0 - start azithromycin (ZITHROMAX Z-ABBE) 250 MG tablet; Take 2 tablets by mouth on day one then 1 daily for four days. Dispense: 6 tablet; Refill: 0 - XR CHEST PA+LAT; Future - start benzonatate (TESSALON PERLES) 100 MG capsule; Take 1 capsule (100 mg total) by mouth 3 (three) times daily as needed for Cough. Dispense: 20 capsule; Refill: 0 - start albuterol (2.5 MG/3ML) 0.083% nebulizer solution; Take 3 mLs (2.5 mg total) by nebulizationevery 6 (six) hours as needed for Wheezing. Dispense: 360 mL; Refill: 3 - start NEBULIZER DEVICE, DME,; Take 1 Device by nebulization every 6 (six) hours as needed. Dispense: 1 Device; Refill: 0 - XR CHEST PA+LAT - CULTURE STREP A (MG/SJS/SMD Only); Future - CULTURE STREP A (MG/SJS/SMD Only) -Follow-up in 4 weeks 3. Prediabetes - stable and wants refills on medications; continue metFORMIN (GLUCOPHAGE) 500 MG tablet; Take 1 tablet (500 mg total) by mouth daily with breakfast. Dispense: 60 tablet; Refill: 3 Counseling given: Yes Comment: counsled by Dr Lucas I spent 40 minutes today reviewing the patient's medical record, [...] was at least in part performed using [employer] and there may be some inherent flaws in this manager of disaster recovery due to the nature of this program. Soledad Lucas MD Internal Medicine [facility], [facility]. documented in this encounter Plan of Treatment Upcoming Encounters Date Type Department Care Team (Late st Contact Info) Description 08/19/2024 9:00 AM SERVICE ENGINEER [facility] [place] [address] [address] [place] [address] Soledad Lucas MD [address] [place] [address] 12/16/2024 10:40 AM CDT [facility] - [address], [address] [place] [address] Ramsey Oakley MD [address] [address] Scheduled Orders Name Type Priority Associated Diagnoses Orde r Schedule XR CHEST PA+LAT Imaging Routine Moderate persistent asthma with acute exacerbation (HHS/HCC) Acute bronchitis, unspecified organism Expected: 01/07/2022, Expires: 01/07/2023 documented as of this encounter Procedures Procedure Name Priority Date/Time Associated Diagnosis Comments CULTURE STREP A Routine 01/07/2022 11:09 AM CDT Moderate persistent asthma with acute exacerbation (HHS/HCC) Acute bronchitis, unspecified organism RAPID STREP A Routine 01/07/2022 Acute bronchitis, unspecified organism documented in this encounter Results * CULTURE STREP A (MG/SJS/SMD Only) (01/07/2022 11:09 AM CDT) THROAT CULTURE STREP A ONLY Negative for Group A Streptococci Negative for Group A Streptococci 01/08/2022 7:33 PM CDT -[facility] STRUCTURE OF ANTERIOR PORTION OF NECK / Unknown 01/07/2022 11:09 AM CDT Soledad Lucas MD MICROBIOLOGY - GENERAL ORDERABLE S Final Result [facility] [address] [place] [address], [place] [phone] * RAPID STREP A (01/07/2022) RAPID STREP TEST NEGATIVE NEGATIVE [facility], [place] Internal Control: VALID VALID [facility], [place] STRUCTURE OF ANTERIOR PORTION OF NECK / Unknown 01/07/2022 Soledad Lucas MD MICROBIOLOGY - GENERAL ORDERABLE S Final Result [facility], [place] [address] [place] [address], documented in this encounter Visit Diagnoses Diagnosis Acute bronchitis, unspecified organism- Primary Moderate persistent asthma with acute exacerbation (HHS/HCC) Prediabetes Other abnormal glucose documented in this encounter Administered Medications Inactive Administered Medications - up to 3 most recent administrations Medication Order MAR Action Action Date Dose Rate Site methylPREDNISolone acetate (DEPO-Medrol) injection 40 mg 40 mg, Intramuscular, Once, 1 dose, On Mon01/07/22 at 1045, Shake WellIndications:Moderate persistent asthma with acute exacerbation (HHS/HCC) Given 01/07/2022 10:30 AM CDT 40 mg Left Deltoid documented in this encounter Additional Health Concerns Assessment Noted Time PHQ-9 Depression Total Score: 1 09/29/19 10:03 AM SERVICE ENGINEER documented as of this encounter Care Teams Supervisor Boat Outfitting Relationship Specialty Start Date End Date Soledad Lucas MD [address] [facility] [address] [place] [address] PCP - General INTERNAL MEDICINE 09/29/21 documented as of this encounter
--- OUTSIDE RECORDS SUMMARY | 2024-08-03 03:27 | XMS_ITS | Encounter Summary ---
Author Organization [facility] - [facility] Address [address] [place] [address]. [place], [place] [id number] [place] [address] Care Team Providers Care Spare Person Name Role Phone Soledad Lucas MD Primary Care Provider Reason for Visit * Reason Onset Date Comments Reschedule 01/05/2022 Encounter Details Date Type Department Care Team (Late st Contact Info) Description 01/05/2022 Telephone [facility] Care - [address] [address] [address] [place] [address] Soledad Lucas MD [address] [place] [address] 157 [place], [place] [id number] Reschedule Social History Tobacco Use Types Packs/Day [...] Progress Notes * Soledad Lucas MD - 01/09/2022 7:38 PM CDT Please call patient. His CXR is completely normal which is good news. Have him complete all medications as directed. Please encourage him to set up on mychart. Thanks Soledad Lucas MD Internal Medicine [facility], [facility]. * Stewart Lemus - 01/05/2022 8:01 AM CDT Patient called to reschedule appointment for 01/07/22 @9:40am. Patient also wanted to make you aware that he has congestion and a cough. documented in this encounter Plan of Treatment Upcoming Encounters Date Type Department Care Team (Late st Contact Info) Description 08/19/2024 9:00 AM PROCESS STRIPPER [facility] [address] [place] [address] Soledad Lucas MD [address] [place] [address] 157 [place] [address] 12/16/2024 10:40 AM CDT [facility] [address] [facility] [place] [address] Ramsey Oakley MD [address] [facility] [address] [place] [address] documented as of this encounter Visit Diagnoses Not on filedocumented in this encounter Additional Health Concerns Assessment Noted Time PHQ-9 Depression Total Score: 1 09/29/19 10:03 AM PROCESS STRIPPER documented as of this encounter Care Teams Spare Person Relationship Specialty Start Date End Date Soledad Lucas MD [address] [address] PCP - General INTERNAL MEDICINE 09/29/21 documented as of this encounter
--- OUTSIDE RECORDS SUMMARY | 2024-08-03 03:27 | XMS_ITS | Encounter Summary ---
Author Organization [facility] - [facility] Address [address] [place] [address]. [place], [place] [id number] [place] [address] Care Team Providers Care Crop Specialist Name Role Phone Soledad Lucas MD Primary Care Provider [phone] Reason for Visit * Reason Onset Date Comments Follow Up Call 10/25/2021 Encounter Details Date Type Department Care Team (Late st Contact Info) Description 10/25/2021 Telephone [facility] Mult[facility]pecialty Care - [place] [address] [address] [address] [place] [address] Soledad Lucas MD [address] [place] [address] 157 [place] [address] Follow Up Call Social History [...] Coronavirus/COVID-19? 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 Coming in for acute visit. Soledad Lucas MD Internal Medicine [facility], [facility]. documented in this encounter Plan of Treatment Upcoming Encounters Date Type Department Care Team (Late st Contact Info) Description 08/19/2024 9:00 AM MUSIC THERAPY TEACHER [facility] [place] [address] [address] [place] [address] Soledad Lucas MD [address] [address] 12/16/2024 10:40 AM CDT [facility] [facility] [address] [facility] [place] [address] Ramsey Oakley MD [address] [facility] [address] [place] [address] documented as of this encounter Visit Diagnoses Not on filedocumented in this encounter Additional Health Concerns Assessment Noted Time PHQ-9 Depression Total Score: 1 09/29/19 22 10:03 AM MUSIC THERAPY TEACHER documented as of this encounter Care Teams Crop Specialist Relationship Specialty Start Date End Date Soledad Lucas MD [address] [facility] [address] [place] [address] PCP - General INTERNAL MEDICINE 09/29/21 documented as of this encounter
--- OUTSIDE RECORDS SUMMARY | 2024-08-03 03:27 | XMS_ITS | Encounter Summary ---
Author Organization [facility] - [facility] Address [address] [place] [address]. [place] [address] Care Team Providers Care Metal Milling Machine Operator Name Role Phone Soledad Lucas MD Primary Care Provider [phone] Reason for Visit * Reason Comments Mouth/Lip Problem pt. woke up with swo llen lip Encounter Details Date Type Department Care Team (Latest Contact Info) Description 10/25/2021 1:30 PM CDT Office Visit [facility] Multispecialty Care - [place] [address] [address] [place] [address] Soledad Lucas MD [address] [place] [address] [phone] Mouth/Lip Problem (pt. woke up with swollen lip) Social History Tobacco Use Types Packs/Day Years [...] suspected to have Coronavirus/COVID-19? No / Unsure 10/25/2021 1:31 PM CDT documented as of this encounter Last Filed Vital Signs Vital Sign Reading Time Taken Comments Blood Pressure 126/84 10/25/2021 1:41 PM CDT Pulse 80 10/25/2021 1:41 PM CDT Temperature 37.4 ??C (99.3 ??F) 10/25/2021 1:41 PM CD T Respiratory Rate 16 10/25/2021 1:41 PM CDT Oxygen Saturation 100% 10/25/2021 1:41 PM CDT Inhaled Oxygen Concentration - - Weight 95.3 kg (210 lb) 10/25/2021 1:41 PM CDT Height 185.4 cm (6' 1 ) 10/25/2021 1:41 PM CDT Body Mass Index 27.71 10/25/2021 1:41 PM CDT documented in this encounter Patient Instructions * Patient Instructions* Soledad Lucas MD - 10/25/2021 1:30 PM CDT Please follow up if you do not feel better. Patient Education Patient Education Angioedema Caused by MARJAN Inhibitor Medicines The Basics Written by the doctors and editors at [facility] What are MARJAN inhibitors???--??MARJAN inhibitors are medicines that are most often used to treat high blood pressure, but are also used for other problems. MARJAN inhibitor is short for angiotensin-converting enzyme inhibitor. Examples of MARJAN inhibitors include enalapril, captopril, and lisinopril. What is angioedema???--??Angioedema is the medical term for swelling of the tissue under the skin. This can be caused by different things, including an allergic reaction to certain medicines. MARJAN inhibitors are 1 type of medicine that can cause this reaction in some people. The swelling can happen within a few weeks of starting the medicine. But in some cases, it can happen even after months or years of taking an MARJAN inhibitor every day without any swelling. Doctors arenot sure why this happens. The swelling usually lasts a few days and is not itchy. What part of the body swells???--??The swelling can happen on the lips, face, or tongue. It can also affect other parts of the body, including the intestines. Depending on where the swelling is, it can cause different problems: ?? Swelling of the tongue, mouth, and lips can be very dangerous if it makes it hard for you to breathe or swallow. You should go to the emergency department right away if you get swelling in or nearyour mouth or throat. If you are having trouble breathing, you might need to call for an ambulance (in the [place] and [place], dial [phone]). In the hospital, the doctors will monitor your breathing. If the swelling is causing your throat toclose, they can put a tube in your throat to help you breathe. You will stay in the hospital until the swelling goes down. ?? If swelling happens in the intestines, it can cause pain, vomiting, or diarrhea. What should I do if I take an MARJAN inhibitor and have swelling???--??You should: ?? Stop taking the medicine, and tell your doctor. ?? Never take that medicine or any other MARJAN inhibitor in the future. ?? Make sure your doctor puts a note in your medical record that you are allergic to MARJAN inhibitors. ?? Make sure your main doctor, other doctors and nurses who take care of you, and your pharmacy know that you should never take MARJAN inhibitors again. Can the swelling happen again after I have stopped the MARJAN inhibitor???--??Yes. You might get swelling again 1 or more times within the next few months. The medicine affects your body for a while, even after you stop taking it. If you get swelling around your mouth or tongue again, go to the emergency department so doctors can monitor your breathing. The swelling should stop happening after a few months. If it does not, talk to your doctor. You might need to see an resolution specialist, because there may be another reason that you are still swelling. Sometimes people have swelling caused by another problem that the MARJAN inhibitor makes worse. What medicine should I switch to???--??There are many other medicines for high blood pressure and heart problems that do not cause swelling. Ask your doctor what you can take instead of an MARJAN inhibitor. Medicines that do not cause swelling include angiotensin II receptor blockers ( ARBs ), beta blockers, and calcium channel blockers. Remember that if you get swelling again in the first few months after stopping an MARJAN inhibitor, itis probably still related to the MARJAN inhibitor. That's because MARJAN inhibitors continue to affect your body for a while, even after you stop taking them. All topics are updated as new evidence becomes available and our peer review process is complete. This topic retrieved from [employer] on: Jul 13, 2021. Topic 417484 Version 1.0 Release: 29.5.2 - C29.340 ?2020??[employer] and/or its affiliates.??All rights reserved. Consumer Information Use and Disclaimer This information is not specific medical advice and does not replace information you receive from your health care provider. This is only a brief summary of general information. It does NOT include all information about conditions, illnesses, injuries, tests, procedures, treatments, therapies, discharge instructions or life-style choices that may apply to you. You must talk with your health care provider for complete information about your health and treatment options. This information should not be used to decide whether or not to accept your health care provider's advice, instructions or recommendations. Only your health care provider has the knowledge and training to provide advice that is right for you. The use of this information is governed by the [employer] User License Agreement, available at https://www.[employer]/en/solutions/INgrooves/about/aleks.The use of [employer] content is governed by the [employer] Terms of Use. ??2020 [employer] [place]. All rights reserved. Copyright ?2020??[employer] and/or its affiliates.??All rights reserved. documented in this encounter Progress Notes * Soledad Lucas MD - 10/25/2021 1:30 PM CDTSummary: Acute visit notes Images from the original note were not included. Internal Medicine Outpatient Progress Note CC: Mouth/Lip Problem (pt. woke up with swollen lip) HPI: Juliet Stout is a 60-year-old -[place]i male who presents for an acute visit for concerns about swelling of the upper lip that happened this morning. According to patient, upon waking up this morning, he noticed swelling of the upper lip. No concerns for hoarseness of voice or difficultyswallowing or pain with swallowing. Patient is a known hypertensive currently on lisinopril hydrochlorothiazide 20-12.5 mg daily. This is new for patient. No issues with coughing or shortness of breath. No recent ingestion of any new food products. He is not aware of any new products his may have used. No recent insect bites. No fever or chills. No other swelling on any other parts of patient's body. Patient concerned and reported today. Problem List Patient Active Problem List Diagnosis [...] Outpatient Medications Marked as Taking for the 10/25/21 encounter (Office Visit) with Soledad Lucas MD Medication Sig Dispense Refill ??? acetaminophen CR (TYLENOL 8 HOUR ARTHRITIS PAIN) 650 MG Tab CR 8 hr tablet Take 1 tablet (650 mg total) by mouth 3 (three) times daily as needed. 60 tablet 3 ??? albuterol sulfate HFA 108 (90 [...] daily as needed for Muscle Spasms. ??? losartan-hydroCHLOROthiazide 50-12.5 MG tablet Take 1 tablet by mouth daily. 90 tablet 1 ??? metFORMIN (GLUCOPHAGE) 500 MG tablet Take 1 tablet (500 mg total) by mouth daily with breakfast. 60 tablet 3 ??? [START ON 10/26/2021] methylPREDNISolone, ABBE, 4 MG tablet 6 TABLETS ON DAY ONE, 5 TABLETS DAY TWO, 4 TABLETS DAY THREE, 3 TABLETS DAY FOUR, 2 TABLETS DAY FIVE, AND 1 TABLET DAY SIX 1 each 0 ??? vitamin D2, ergocalciferol, 71955 UNITS capsule Take 1 capsule (50,000 Units total) by mouth weekly. 12 capsule 1 Current Facility-Administered Medications for the 10/25/21 encounter (Office Visit) with Soledad Lucas MD Medication Dose Route Frequency Provider Last Rate Last Admin ??? methylPREDNISolone acetate (DEPO-Medrol) injection 40 mg 40 mg Intramuscular Once Soledad Lucas MD Allergies: Allergies Allergen Reactions ??? Lisinopril Swelling Swollen lips Review of Systems Constitutional: Negative for chills, diaphoresis, fever, malaise/fatigue and weight loss. HENT: Negative. Eyes: Negative. Respiratory: Negative. Cardiovascular: Negative for chest pain, palpitations, orthopnea, claudication, leg swelling and PND. Gastrointestinal: Negative. Genitourinary: Negative. Musculoskeletal: Negative. Objective: Filed Vitals: 10/25/21 1341 BP: 126/84 Pulse: 80 Resp: 16 Temp: 99.3 ??F (37.4 ??C) TempSrc: Temporal SpO2: 100% Weight: 95.3 kg (210 lb) Height: 6' 1 (1.854 m) Body mass index is 27.71 kg/m??. General alert, cooperative, no distress; no hoarseness of voice or change in voice. Patient verbalizing appropriately. HEENT EOM's intact. Oral mucosa normal. Nasal septum is midline. Tongue size appears normal. No swelling in the oropharyngeal space. Neck Supple, symmetrical, trachea midline, no adenopathy, [...] cyanosis, 2+ pedal pulses, no edema Skin swelling of upper lip. No other swelling of the oropharyngeal cavity. No appearance of insect bite or skin breakdown. Neurologic No focal deficits, motor strength is grossly normal and symmetric Psych Normal mood and affect MSK No synovitis, no bony tenderness, no joint effusions Lymph No cervical or supraclavicular adenopathy Assessment and Plan: Encounter Diagnose(s) ICD-10-CM ICD-9-CM SNOMED CT(R) 1. Angioedema, initial encounter T78.3XXA 995.1 ANGIOEDEMA methylPREDNISolone acetate (DEPO-Medrol)injection 40 mg methylPREDNISolone, ABBE, 4 MG tablet 2. Primary hypertension I10 401.9 ESSENTIAL HYPERTENSION losartan- hydroCHLOROthiazide 50-12.5 MG tablet 1. Angioedema, initial encounter -This is the first episode. Allergy list updated. Patient encouraged to avoid lisinopril in the future. No swelling of tongue or oropharyngeal cavity. Mild swelling of upper lip noted. - methylPREDNISolone acetate (DEPO-Medrol) injection 40 mg - methylPREDNISolone, ABBE, 4 MG tablet; 6 TABLETS ON DAY ONE, 5 TABLETS DAY TWO, 4 TABLETS DAY THREE, 3 TABLETS DAY FOUR, 2 TABLETS DAY FIVE, AND 1 TABLET DAY SIX Dispense: 1 each; Refill: 0 -Can take Zyrtec 10 mg daily. -Patient aware to follow-up if not improving -AVS with instructions 2. Primary hypertension - Blood pressures controlled -change to losartan-hydroCHLOROthiazide 50-12.5 MG tablet; Take 1 tablet by mouth daily. Dispense: 90 tablet; Refill: 1 - Patient currently controlled on current treatment for hypertension. Will continue. Continued to discuss weight loss, adequate cardiovascular fitness. DASH diet was discussed as well as decrease in sodium intake. BP goal of < 130/80 expressed. -Discontinue lisinopril hydrochlorothiazide given angioedema Counseling given: Yes Comment: counsled by Dr [...] was at least in part performed using [employer] and there may be some inherent flaws in this veterinary milk specialist due to the nature of this program. Soledad Lucas MD Internal Medicine [facility], [facility]. documented in this encounter Plan of Treatment Upcoming Encounters Date Type Department Care Team (Late st Contact Info) Description 08/19/2024 9:00 AM COMMUNICATIONS REPRESENTATIVE [facility] [place] - [place] [address] [address] [address] [place] [address] Soledad Lucas MD [address] [place] [address] [address] [place] [address] 12/16/2024 10:40 AM CDT Office Visit [facility] [address] [facility], [address] [place] [phone] Ramsey Oakley MD 3 [facility] [address] [place] [address] documented as of this encounter Visit Diagnoses Diagnosis Angioedema, initial encounter- Primary Primary hypertension Unspecified essential hypertension documented in this encounter Administered Medications Inactive Administered Medications - up to 3 most recent administrations Medication Order MAR Action Action Date Dose Rate Site methylPREDNISolone acetate (DEPO-Medrol) injection 40 mg 40 mg, Intramuscular, Once, 1 dose, On 10/25/21 at 1415, Hung WellIndications:Raul vizcaino, initial encounter Given 10/25/2021 3:00 PM CDT 40 mg Right Dorsal Gluteal documented in this encounter Additional Health Concerns Assessment Noted Time PHQ-9 Depression Total Score: 1 09/29/19 10:03 AM COMMUNICATIONS REPRESENTATIVE documented as of this encounter Care Teams Metal Milling Machine Operator Relationship Specialty Start Date End Date Soledad Lucas MD [address] [address] PCP - General INTERNAL MEDICINE 09/29/21 documented as of this encounter
--- OUTSIDE RECORDS SUMMARY | 2024-08-03 03:27 | XMS_ITS | Encounter Summary ---
Author Organization [facility] Address [address] [place] [address]. [address] [address] Care Team Providers Care Property Utilization Officer Name Role Phone Soledad Lucas MD Primary Care Provider [phone] Reason for Referral * (Routine) - Closed Specialty Diagnoses / Procedures Referred By Prasanth santillan Referred To Contact Diagnoses Effusion of left knee Procedures Arthrocentesis Soledad Lucas MD [address] [place] [address] Phone: tel: fax: Referral ID Status Reason Start Date Expiration Date Visits Re quested Visits Authorized [id number] Closed 12/08/2021 01/08/2023 1 1 Reason for Visit * Reason Comments Follow Up patient would like t o have his left knee drained Encounter Details Date Type Department Care Team (Latest Contact Info) Description 12/08/2021 10:20 AM CDT Office Visit [facility] Multispecialty Care - [address] [address] [address] [place], [place] [id number] Soledad Lucas MD [address] [place] [address] [phone] Follow Up ( patient would like to have his left knee drained) Social History Tobacco Use [...] suspected to have Coronavirus/COVID-19? No / Unsure 12/08/2021 10:09 AM CDT documented as of this encounter Last Filed Vital Signs Vital Sign Reading Time Taken Comments Blood Pressure 123/78 12/08/2021 10:18 AM CDT Pulse 78 12/08/2021 10:18 AM CDT Temperature 36.9 ??C (98.5 ??F) 12/08/2021 10:18 AM C DT Respiratory Rate 18 12/08/2021 10:18 AM CDT Oxygen Saturation 99% 12/08/2021 10:18 AM CDT Inhaled Oxygen Concentration - - Weight 95.8 kg (211 lb 3.2 oz) 12/08/2021 10:18 AM CDT Height 185.4 cm (6' 1 ) 12/08/2021 10:18 AM CDT Body Mass Index 27.86 12/08/2021 10:18 AM CDT documented in this encounter Progress Notes * Lois Mei MA - 12/08/2021 10:20 AM CDTAddended by: LOIS MEI on: 12/08/2021 01:06 PM Modules accepted: Orders * Soledad Lucas MD - 12/08/2021 10:20 AM CDTSummary: Follow-up notes Images from the original note were not included. Internal Medicine Outpatient Progress Note CC: Follow Up ( patient would like to have his left knee drained) HPI: Juliet Stout is a 60-year-old -Swedish male who presents for follow- up to discuss swelling of the left knee joint. He was seen a couple of weeks ago to have injections to the fingers due to arthritis. His main concern today is that of noticing left knee swelling. He thinks he might havebuilt up fluid in the left knee. This is not the first time he has had such an episode. He previously had a similar episode where he had a lot of fluid drained out from the knee joint. He is status post right knee surgery. His right knee currently is not giving him any issues. He denies any recent fever, chills or infections. Denies any redness of the left knee joint. He has noticed worsening discomfort. Currently taking Tylenol and occasionally Aleve to help with pain however this has not significantly helped. Patient is here for follow-up to discuss. Problem List Patient Active Problem List Diagnosis [...] Outpatient Medications Marked as Taking for the 12/08/21 encounter (Office Visit) with Soledad Lucas MD [...] 60 tablet 3 ??? vitamin D2, ergocalciferol, 07038 UNITS capsule Take 1 capsule (50,000 Units total) by mouth weekly. 12 capsule 1 Current Facility-Administered Medications for the 12/08/21 encounter (Office Visit) with Soledad Lucas MD Medication Dose Route Frequency Provider Last Rate Last Admin ??? lidocaine (XYLOCAINE) 1 % injection SOLN 3 mL 3 mL Other Once Soledad Lucas MD ??? methylPREDNISolone acetate (DEPO-Medrol) injection 60 mg 60 mg Intra- articular Once Soledad Lucas MD Allergies: Allergies Allergen Reactions ??? Lisinopril Swelling Swollen lips Review of Systems Constitutional: Negative for chills, diaphoresis, fever, malaise/fatigue and weight loss. HENT: Negative. Eyes: Negative. Respiratory: Negative. Cardiovascular: Negative for chest pain, palpitations, orthopnea, claudication, leg swelling and PND. Gastrointestinal: Negative. Genitourinary: Negative. Musculoskeletal: Positive for joint pain (and swelling). Negative for back pain, falls, myalgias and neck pain. Skin: Negative. Objective: Filed Vitals: 12/08/21 1018 BP: 123/78 Pulse: 78 Resp: 18 Temp: 98.5 ??F (36.9 ??C) TempSrc: Temporal SpO2: 99% Weight: 95.8 kg (211 lb 3.2 oz) Height: 6' 1 (1.854 m) Body mass index is 27.86 kg/m??. General alert, cooperative, no distress HEENT [...] Extremities atraumatic, no cyanosis, 2+ pedal pulses, left knee joint with swelling, fluctuant, non tender with no warmth Skin Skin color, texture, turgor normal. No rashes or lesions appreciated. Neurologic No focal deficits, motor strength is grossly normal and symmetric Psych Normal mood and affect MSK positive synovitis left knee, no bony tenderness, positive for left knee joint effusions Lymph No cervical or supraclavicular adenopathy Assessment and Plan: Encounter Diagnose(s) ICD-10-CM ICD-9-CM SNOMED CT(R) 1. Effusion of left knee M25.462 719.06 EFFUSION OF JOINT OF LEFT KNEE PROTEIN TOTAL FLUID CULTURE, BODY FLUID W/ GRAM STAIN GLUCOSE, BODY FLUID CELL COUNT W/ DIFF BODY FLUID CRYSTALS, BODY FLUID lidocaine (XYLOCAINE) 1 % injection SOLN 3 mL methylPREDNISolone acetate (DEPO-Medrol) injection 60 mg Arthrocentesis DRAIN/INJECT MEDIUM JOINT/BURSA 2. Primary osteoarthritis of left knee M17.12 715.16 OSTEOARTHRITIS OF LEFT KNEE JOINT lidocaine (XYLOCAINE) 1 % injection SOLN 3 mL methylPREDNISolone acetate (DEPO-Medrol) injection 60 mg 1. Effusion of left knee - PROTEIN TOTAL FLUID; Future - CULTURE, BODY FLUID W/ GRAM STAIN; Future - GLUCOSE, BODY FLUID; Future - CELL COUNT W/ DIFF BODY FLUID; Future - CRYSTALS, BODY FLUID; Future - lidocaine (XYLOCAINE) 1 % injection SOLN 3 mL - methylPREDNISolone acetate (DEPO-Medrol) injection 60 mg - Arthrocentesis - DRAIN/INJECT MEDIUM JOINT/BURSA - follow up if ongoing pain - can use anti-inflammatories as needed -Review of x-ray of the left knee done in October 2021 showing marked arthritic changes 2. Primary osteoarthritis of left knee - lidocaine (XYLOCAINE) 1 % injection SOLN 3 mL - methylPREDNISolone acetate (DEPO-Medrol) injection 60 mg - follow up if ongoing pain - can use anti-inflammatories as needed -Review of x-ray of the left knee done in October 2021 showing marked arthritic changes Counseling given: Yes Comment: counsled by Dr [...] was at least in part performed using Rowl and there may be some inherent flaws in this answerer due to the nature of this program. Soledad Lucas MD Internal Medicine [facility], [facility]. documented in this encounter Plan of Treatment Upcoming Encounters Date Type Department Care Team (Late st Contact Info) Description 08/19/2024 9:00 AM LEARNING AND DEVELOPMENT ASSOCIATE Office Visit [facility] - [address] [address] [address] [place] [address] Soledad Lucas MD [address] [place] [address] 12/16/2024 10:40 AM CDT [facility] [address] [facility] [address] [place] [phone] Ramsey Oakley MD 3 [facility] [address] [place] [address] Scheduled Orders Name Type Priority Associated Diagnoses Orde r Schedule Arthrocentesis Procedures Routine Effusion of left knee Ordered: 12/08/2021 DRAIN/INJECT MEDIUM JOINT/BURSA Procedures Routine Effusion of left knee Ordered: 12/08/2021 documented as of this encounter Visit Diagnoses Diagnosis Effusion of left knee- Primary Effusion of lower leg joint Primary osteoarthritis of left knee Primary localized osteoarthrosis, lower leg documented in this encounter Administered Medications Inactive Administered Medications - up to 3 most recent administrations Medication Order MAR Action Action Date Dose Rate Site lidocaine (XYLOCAINE) 1 % injection SOLN 3 mL 3 mL, Other, Once, 1 dose, On Mon12/08/21 at 1245, Left knee jointIndications:Effusion of left knee,Primary osteoarthritis of left knee Given 12/08/2021 12:58 PM CDT 3 mLs methylPREDNISolone acetate (DEPO-Medrol) injection 60 mg 60 mg, Intra-articular, Once, 1 dose, On Mon12/08/21 at 1245, Shake WellIndications:Effusion of left knee,Primary osteoarthritis of left knee Given 12/08/2021 1:05 PM CDT 60 mg Left Knee documented in this encounter Additional Health Concerns Assessment Noted Time PHQ-9 Depression Total Score: 1 09/29/19 10:03 AM LEARNING AND DEVELOPMENT ASSOCIATE documented as of this encounter Care Teams Property Utilization Officer Relationship Specialty Start Date End Date Soledad Lucas MD [address] [address] PCP - General INTERNAL MEDICINE 09/29/21 documented as of this encounter
--- OUTSIDE RECORDS SUMMARY | 2024-08-03 03:27 | XMS_ITS | Encounter Summary ---
Author Organization [facility] - [facility] Address [address] [place] [address]. [address] [address] Care Team Providers Care Wood Fence Installer Name Role Phone Soledad Lucas MD Primary Care Provider [phone] Reason for Visit * Reason Onset Date Comments Medication 09/30/2021 Encounter Details Date Type Department Care Team (Late st Contact Info) Description 09/30/2021 Telephone [facility] Medical Group Multispecialty Care - [address] [place] [address] Soledad Lucas MD [address] [place] [address] [address] [place] [address] Medication Social History Tobacco Use [...] Coronavirus/COVID-19? No / Unsure 09/29/2021 8:43 AM PARTY DIRECTOR documented as of this encounter Progress Notes * Soledad Lucas MD - 09/30/2021 6:15 AM CST Metformin sent. Y DIRECTOR documented in this encounter Plan of Treatment Upcoming Encounters Date Type Department Care Team (Late st Contact Info) Description 08/19/2024 9:00 AM PARTY DIRECTOR [facility] [address] [place] [address] Soledad Lucas MD [address] [facility] [address] [place] [address] 12/16/2024 10:40 AM CDT [facility] [address] [facility] [address] [place] [address] Ramsey Oakley MD 3 [facility] [address] [place] [address] documented as of this encounter Visit Diagnoses Diagnosis Prediabetes- Primary Other abnormal glucose documented in this encounter Additional Health Concerns Assessment Noted Time PHQ-9 Depression Total Score: 1 09/29/19 10:03 AM PARTY DIRECTOR documented as of this encounter Care Teams Wood Fence Installer Relationship Specialty Start Date End Date Soledad Lucas MD [address] [place] [address] [address] [place] [address] PCP - General INTERNAL MEDICINE 09/29/21 documented as of this encounter
--- OUTSIDE RECORDS SUMMARY | 2024-08-03 03:27 | XMS_ITS | Encounter Summary ---
Author Organization [facility] Address [address] [place] [address]. [place], [place] [address] [place] [address] Care Team Providers Care Forest Patrolman Name Role Phone Soledad Lucas MD Primary Care Provider [phone] Encounter Details Date Type Department Care Team (Latest Contact Info) Description 01/07/2022 Travel Social History Tobacco Use Types Packs/Day [...] st Contact Info) Description 08/19/2024 9:00 AM FIRMWARE ENGINEER Office Visit [facility] Medical Group Multispecialty Care - [address] [address] [address] [place] [address] Soledad Lucas MD [address] [place] [address] [address] [place] [address] 12/16/2024 10:40 AM CDT Office Visit [facility] Medical Group Multispecialty Care - [facility] [address] [facility] [place] [address] Ramsey Oakley MD 3 [facility] [address] [place] [address] documented as of this encounter Visit Diagnoses Not on filedocumented in this encounter Additional Health Concerns Assessment Noted Time PHQ-9 Depression Total Score: 1 09/29/19 22 10:03 AM FIRMWARE ENGINEER documented as of this encounter Care Teams Forest Patrolman Relationship Specialty Start Date End Date Soledad Lucas MD [address] [address] PCP - General INTERNAL MEDICINE 09/29/21 documented as of this encounter
--- OUTSIDE RECORDS SUMMARY | 2024-08-03 03:27 | XMS_ITS | Encounter Summary ---
Author Organization [facility] Address [address] [place] [address]. [address] [address] Care Team Providers Care Cna Instructor Name Role Phone Soledad Lucas MD Primary Care Provider [phone] Reason for Visit * Reason Onset Date Comments Pre-visit Gap Closure 10/07/2021 Encounter Details Date Type Department Care Team (Late st Contact Info) Description 10/07/2021 Telephone [facility] Multispecialty Care - [address] [address] [address] [place] [address] Soledad Lucas MD [address] [place] [address] [address] [place], [place] [phone] Pre-visit Gap Closure Social History Tobacco Use [...] Coronavirus/COVID-19? No / Unsure 10/06/2021 1:31 PM CARBONATION EQUIPMENT OPERATOR documented as of this encounter Progress Notes * Sofie Grimm CMA - 10/07/2021 10:37 AM CST Contacted patient for pre-visit gap closure. I am calling this patient as a patient advocate for the [employer]. My direct extension is [phone]. You can also reach me at: [phone] ([facility]) OR [phone] ([facility]) ONATION EQUIPMENT OPERATOR documented in this encounter Plan of Treatment Upcoming Encounters Date Type Department Care Team (Late st Contact Info) Description 08/19/2024 9:00 AM CARBONATION EQUIPMENT OPERATOR Office Visit [facility] Multispecialty Care - [address] [address] [address] [place] [address] Soledad Lucas MD [address] [place] [address] 12/16/2024 10:40 AM CDT Office Visit [facility]pecialty Care - [facility] [address] [facility] [address] [place] [id number] Ramsey Oakley MD [address] [facility] [address] [place] [address] documented as of this encounter Visit Diagnoses Not on filedocumented in this encounter Additional Health Concerns Assessment Noted Time PHQ-9 Depression Total Score: 1 09/29/19 10:03 AM CARBONATION EQUIPMENT OPERATOR documented as of this encounter Care Teams Cna Instructor Relationship Specialty [place] [address] [place] [address] [address] [place] [address] PCP - General INTERNAL MEDICINE 09/29/21 documented as of this encounter
--- OUTSIDE RECORDS SUMMARY | 2024-08-03 03:27 | XMS_ITS | Encounter Summary ---
Author Organization [facility] Address [address] [place] [address]. [address] [address] Care Team Providers Care Heading Up Machine Operator Name Role Phone Soledad Lucas MD Primary Care Provider [phone] Reason for Referral * Procedure (Routine) - Closed Specialty Diagnoses / Procedures Referred By Prasanth santillan Referred To Contact Diagnoses Left-sided chest pain Prediabetes Overweight (BMI 25.0-29.9) Primary hypertension Procedures Stress test only, exercise [facility] [place] [address] Phone: tel: Referral ID Status Reason Start Date Expiration Date Visits Re quested Visits Authorized [id number] Closed 10/27/2021 11/27/2022 1 1 * Imaging (Routine) - Closed Specialty Diagnoses / Procedures Referred By Prasanth santillan Referred To Contact RADIOLOGY Diagnoses Left-sided chest pain Procedures NM PHARM NUC STRESS TEST 1DAY Soledad Lucas MD [address] [facility] [address] [place] [address] Phone: tel: fax: Referral ID Status Reason Start Date Expiration Date Visits Re quested Visits Authorized [id number] Closed 10/21/2021 12/05/2021 1 1 Reason for Visit * Imaging (Routine) - Closed Specialty Diagnoses / Procedures Referred By Contaiden t Referred To Contact RADIOLOGY Diagnoses Left-sided chest pain Procedures NM PHARM NUC STRESS TEST 1DAY Soledad Lucas MD [address] [facility] [address] [place] [address] Phone: tel: fax: Referral ID Status Reason Start Date Expiration Date Visits Re quested Visits Authorized [id number] Closed 10/21/2021 12/05/2021 1 1 Encounter Details Date Type Department Care Team (Latest Contact Info) Description 10/27/2021 7:14 AM CDT - 10/27/2021 11:59 PM CDT Hospital Encounter [facility] Nuclear Medicine [address] [facility] [place] [address] Soledad Lucas MD [address] [address] Discharge Disposition: Home or Self [...] suspected to have Coronavirus/COVID-19? No / Unsure 10/27/2021 7:14 AM CDT documented as of this encounter Medications at Time of Discharge acetaminophen CR (TYLENOL 8 HOUR ARTHRITIS PAIN) 650 MG Tab CR 8 hr tabletIndications:Pr imary osteoarthritis of both hands Take 1 tablet (650 mg total) by mouth 3 (three) times daily as needed. 60 tablet 3 10/13/2021 2 albuterol sulfate HFA 108 (90 Base) MCG/ACT inhalerIndications:M ild intermittent asthma without complication (HHS/HCC) Inhale 2 puffs into the lungs every 6 (six) hours as needed for Wheezing. 18 g 5 10/13/2021 2 aspirin 81 MG chewable tabletIndications:Le ft-sided chest pain Chew 1 tablet (81 mg total) by mouth daily. 30 tablet 10/13/2021 3 atorvastatin 40 MG tabletIndications:Mi xed hyperlipidemia,Left- sided chest pain Take 1 tablet (40 mg total) by mouth nightly at bedtime. 90 tablet 2 10/13/2021 3 cyclobenzaprine 10 MG tablet Take 10 mg by mouth 3 (three) times daily as needed for Muscle Spasms. 09/13/2021 2 losartan-hydroCHLORO thiazide 50-12.5 MG tabletIndications:Pr imary hypertension Take 1 tablet by mouth daily. 90 tablet 1 10/25/2021 2 metFORMIN (GLUCOPHAGE) 500 MG tabletIndications:Pr ediabetes Take 1 tablet (500 mg total) by mouth daily with breakfast. 60 tablet 3 09/30/2021 2 methylPREDNISolone, ABBE, 4 MG tabletIndications:An gioedema, initial encounter 6 TABLETS ON DAY ONE, 5 TABLETS DAY TWO, 4 TABLETS DAY THREE, 3 TABLETS DAY FOUR, 2 TABLETS DAY FIVE, AND 1 TABLET DAY SIX 1 each 10/26/2021 2 vitamin D2, ergocalciferol, 01396 UNITS capsuleIndications:V itamin D deficiency Take 1 capsule (50,000 Units total) by mouth weekly. 12 capsule 1 09/29/2021 3 documented as of this encounter Plan of Treatment Upcoming Encounters Date Type Department Care Team (Late st Contact Info) Description 08/19/2024 9:00 AM GEOLOGICAL SPECIALIST Office Visit [facility] Multispecialty Care - [place] [address] [address] [place] [address] Soledad Lucas MD [address] [place] [address] [address] [place] [address] 12/16/2024 10:40 AM CDT Office Visit [facility] Multispecialty Care - [place] [address] [place] [address] Ramsey Oakley MD [address] [place] [address] documented as of this encounter Procedures Procedure Name Priority Date/Time Associated Diagnosis Comments NM PHARM NUC STRESS TEST 1DAY Routine 10/27/2021 9:09 AM CDT Left-sided chest pain STRESS TEST ONLY, EXERCISE Routine 10/27/2021 7:39 AM CDT Left-sided chest pain Prediabetes Overweight (BMI 25.0-29.9) Primary hypertension documented in this encounter Results * NM PHARM NUC STRESS TEST 1DAY (10/27/2021 9:09 AM CDT) Anatomical Region Laterality Modality Cardiac Nuclear Medicine 10/27/2021 8:05 AM CDT Narrative 10/27/2021 12:04 PM CDT ? Myocardial Perfusion Imaging ? Pat.Name: ??JULIET GRIMM ? Pat.ID: ?[id number] ? St.Date: ?? 10/27/2021 ? Refer.MD: ??Soledad Lucas [id number] Exam Time: 8:05:00 AM ? Study Type:[facility] HT MUSCLE IMAGE SPECT MULTI Height: ?73in ?Weight: ?216lb ? BSA: ? 2.23 m2 ?Age: ??08/14/1961,60Y ? Sex: ? MALE ?Sonogrphr: Kanchan Patel, PARTY HOST ? Pat. Stat.:Outpatient ? Reason for Study: Chest pain, Abnormal EKG, Neck pain History / Clinical: Dyslipidemia, Hypertension, COPD, pre diabetic Procedures: ??Nuclear Stress Test with Exercise Surgery: ?? None ? ++++++++++++++++++++++++++++++++++++ SUMMARY: ++++++++++++++++++++++++++++++++++++ Stress conclusion: 1. ? Clinically negative. 2. ? Electrocardiographically negative treadmill test for ischemia. 3. ? Excellent exercise capacity. 4. ? Miller Treadmill Score is 10, which indicates low risk. 5. ? Blood pressure response was normal. 6. ? Scintigraphic images to follow. Perfusion conclusion: 1. ??Good study quality. ??Resting and stress motion correction was applied to images. ??Diaphragm attenuation is noted. ??Prone imaging was performed. 2. ??Normal myocardial perfusion SPECT imaging. 3. ??Normal wall motion with an ejection fraction of 66%. 4. ??Stress test with myocardial perfusion imaging shows overall low risk for a cardiac event. ++++++++++++++++++++++++++++++++++++ FINDINGS: ++++++++++++++++++++++++++++++++++++ Protocol: The images were processed using the standard SPECT ?technique. ?? A gated study was performed on the stress ?images. Impression: SPECT images demonstrate normal perfusion of normal ?intensity. Heart Size: The left ventricle is normal. Right ventricle is in the ?upper ??limit of normal in size. LV Wall Motion: The LVEF is calculated to be 66%. Gated SPECT images ?reveal ??normal wall motion. Transient Ischemic Dilatation: The TID is 0.67. There is no evidence ?of ??Transient Ischemic Dilatation. ++++++++++++++++++++++++++++++++++++ STRESS: ++++++++++++++++++++++++++++++++++++ Baseline Vital Signs: ?Test ? Treadmill Test ECG ?Normal sinus rhythm, septal infarctProtocol ?? Ronan HR ? 72 ?Duration ?? 11:00Atropine 0 Rest BP ?139/76 ?Max. Workload (METS) 10.7 Stress Test Results: Max. HR ?136 ? Pred. Max. Heart Rate (100%) 158 ?? % Target: ??86 % ? Max BP ? 188/88 ?O2 Sat ? 100 % Max RPP ?09735 ? Symptoms and Complications: Terminated safety issues with legs Symptoms ?? Leg fatigue Complications None Stress ECG Interp Sinus tachycardia, VPCs, J point depression Signed 10/27/2021 12:04 PM Jennifer Still M.D. Procedure Note Jennifer Still MD - 10/27/2021 Myocardial Perfusion Imaging Pat.Name: JULIET GRIMM Pat.ID: [id number] St.Date: 10/27/2021 Refer.MD: Soledad Lucsa [id number] Exam Time: 8:05:00 AM Study Type:[facility] HT MUSCLE IMAGE SPECT MULTI Height: 73in Weight: 216lb BSA: 2.23 m2 Age: 108/14/1961,60Y Sex: MALE Sonogrphr: JEROME Yang Pat. Stat.:Outpatient Reason for Study: Chest pain, Abnormal EKG, Neck pain History / Clinical: Dyslipidemia, Hypertension, COPD, pre diabetic Procedures: Nuclear Stress Test with Exercise Surgery: None ++++++++++++++++++++++++++++++++++++ SUMMARY: ++++++++++++++++++++++++++++++++++++ Stress conclusion: 1. Clinically negative. 2. Electrocardiographically negative treadmill test for ischemia. 3. Excellent exercise capacity. 4. Miller Treadmill Score is 10, which indicates low risk. 5. Blood pressure response was normal. 6. Scintigraphic images to follow. Perfusion conclusion: 1. Good study quality. Resting and stress motion correction was applied to images. Diaphragm attenuation is noted. Prone imaging was performed. 2. Normal myocardial perfusion SPECT imaging. 3. Normal wall motion with an ejection fraction of 66%. 4. Stress test with myocardial perfusion imaging shows overall low risk for a cardiac event. ++++++++++++++++++++++++++++++++++++ FINDINGS: ++++++++++++++++++++++++++++++++++++ Protocol: The images were processed using the standard SPECT technique. A gated study was performed on the stress images. Impression: SPECT images demonstrate normal perfusion of normal intensity. Heart Size: The left ventricle is normal. Right ventricle is in the upper limit of normal in size. LV Wall Motion: The LVEF is calculated to be 66%. Gated SPECT images reveal normal wall motion. Transient Ischemic Dilatation: The TID is 0.67. There is no evidence of Transient Ischemic Dilatation. ++++++++++++++++++++++++++++++++++++ STRESS: ++++++++++++++++++++++++++++++++++++ Baseline Vital Signs: Test Treadmill Test ECG Normal sinus rhythm, septal infarctProtocol Ronan HR 72 Duration 11:00Atropine 0 Rest BP 139/76 Max. Workload (METS) 10.7 Stress Test Results: Max. HR 136 Pred. Max. Heart Rate (100%) 158 % Target: 86 % Max BP 188/88 O2 Sat 100 % Max RPP 11293 Symptoms and Complications: Terminated safety issues with legs Symptoms Leg fatigue Complications None Stress ECG Interp Sinus tachycardia, VPCs, J point depression Signed 10/27/2021 12:04 PM Jennifer Still M.D. Soledad Lucas MD NUC MED Final Result documented in this encounter Visit Diagnoses Diagnosis Left-sided chest pain- Primary Prediabetes Other abnormal glucose Overweight (BMI 25.0-29.9) Overweight Primary hypertension Unspecified essential hypertension documented in this encounter Administered Medications Inactive Administered Medications - up to 3 most recent administrations Medication Order MAR Action Action Date Dose Rate Site Generic Radiopharmaceutical 43.2 millicurie 43.2 millicurie, Intravenous, IMG once as needed, 10.8 mCi Tc Myoview rest, 32.4 mCi Tc Myoview stress, 1 dose, Starting on Mon10/27/21 at 0909, Until Mon10/27/21 at 0910 Given 10/27/2021 9:10 AM CDT 43.2 millicuries documented in this encounter Additional Health Concerns Assessment Noted Time PHQ-9 Depression Total Score: 1 09/29/19 10:03 AM GEOLOGICAL SPECIALIST documented as of this encounter Care Teams Heading Up Machine Operator Relationship Specialty Start Date End Date Soledad Lucas MD [address] [address] PCP - General INTERNAL MEDICINE 09/29/21 documented as of this encounter
--- OUTSIDE RECORDS SUMMARY | 2024-08-03 03:27 | XMS_ITS | Encounter Summary ---
Author Organization [facility] Address [address] [place] [address]. [place], [place] [address] [place] [address] Care Team Providers Care Dryer Operator Name Role Phone Soledad Lucas MD Primary Care Provider [phone] Encounter Details Date Type Department Care Team (Late st Contact Info) Description 10/01/2021 Orders Only [facility] - [address] [place] [address] Anatoliy Sanz MD [address] [place] [address] Social History Tobacco Use Types Packs/Day Years Used Date Smoking Tobacco: Never Smokeless Tobacco: Never Comments:counsled by Dr Cari gomez Alcohol Use Standard Drinks/Week Comments Yes 0 [...] Coronavirus/COVID-19? No / Unsure 09/29/2021 8:[address] TECHNOLOGIST documented as of this encounter Plan of Treatment Upcoming Encounters Date Type Department Care Team (Late st Contact Info) Description 08/19/2024 9:[address] TECHNOLOGIST Office Visit [facility] Multispecialty Care [place] [address] [place] [address] [address] [place] [address] Soledad Lucas MD [address] [facility] [address] [place] [address] 12/16/2024 10:40 AM CDT [facility] [address] [facility] [place] [address] Ramsey Oakley MD [address] [facility] [address] [place] [address] documented as of this encounter Results * XR KNEE LT 3V (10/06/2021 1:[address] TECHNOLOGIST) Anatomical Region Laterality Modality Knee Radiographic Liv ging 10/06/2021 2:[address] TECHNOLOGIST Impressions 10/06/2021 2:[address] TECHNOLOGIST IMPRESSION: 1. Marked arthritic changes. 2. No acute osseous abnormality. Ordered By: ANATOLIY SANZ Interpreted By: Jasper Gray MD, 10/06/2021 2:35 PM Narrative 10/06/2021 2:[address] TECHNOLOGIST Examination: XR KNEE LT 3V Exam time: 10/06/2021 1:48 PM Clinical history: Pain left knee Comparison: 05/26/2008 left knee Technique: Upright AP and lateral views. Hadley view. Findings: There is severe loss of medial left knee joint space. There are medial and lateral marginal osteophytes. There is also significant decreased patellofemoral joint space with prominent hypertrophic changes within the patellofemoral compartment. The above findings have progressed since 2007. There is opacity in the suprapatellar joint space region consistent with a joint effusion. No evidence of fracture or acute osseous abnormality. Varus configuration of the left knee. Procedure Note Jasper Gray MD - 10/06/2021 Examination: XR KNEE LT 3V Exam time: 10/06/2021 1:48 PM Clinical history: Pain left knee Comparison: 05/26/2008 left knee Technique: Upright AP and lateral views. Hadley view. Findings: There is severe loss of medial left knee joint space. There aremedial and lateral marginal osteophytes. There is also significantdecreased patellofemoral joint space with prominent hypertrophic changeswithin the patellofemoral compartment. The above findings have progressedsince 2007. There is opacity in the suprapatellar joint space regionconsistent with a joint effusion. No evidence of fracture or acute osseousabnormality. Varus configuration of the left knee. IMPRESSION: 1. Marked arthritic changes. 2. No acute osseous abnormality. Ordered By: ANATOLIY SANZ Interpreted By: Jasper Gray MD, 10/06/2021 2:35 PM us nAatoliy Sanz MD GENERAL IMAGING Final Result documented in this encounter Visit Diagnoses Diagnosis Left knee pain- Primary Pain in joint, lower leg documented in this encounter Additional Health Concerns Assessment Noted Time PHQ-9 Depression Total Score: 1 09/29/19 10:[address] TECHNOLOGIST documented as of this encounter Care Teams Dryer Operator Relationship Specialty Start Date End Date Soledad Lucas MD [address] [facility] [address] [place] [address] PCP - General INTERNAL MEDICINE 09/29/21 documented as of this encounter
--- OUTSIDE RECORDS SUMMARY | 2024-08-03 03:27 | XMS_ITS | Encounter Summary ---
Author Organization [facility] Address [address] [place] [address]. [place], [place] [address] [place] [address] Care Team Providers Care Missile Inspector Preflight Name Role Phone Soledad Lucas MD Primary Care Provider [phone] Encounter Details Date Type Department Care Team (Latest Contact Info) Description 11/09/2021 Travel Social History Tobacco Use Types Packs/Day [...] suspected to have Coronavirus/COVID-19? No / Unsure 11/09/2021 8:50 AM CDT documented as of this encounter Plan of Treatment Upcoming Encounters Date Type Department Care Team (Late st Contact Info) Description 08/19/2024 9:00 AM FOOD SERVICE AGENT Office Visit [facility] Multispecialty Care - [place] [address] [address] [place] [address] Soledad Lucas MD [address] [place] [address] [address] [place] [address] 12/16/2024 10:40 AM CDT Office Visit [facility] Multispecialty Care - [facility] [address] [facility] [place] [address] Ramsey Oakley MD [address] [facility] [address] [place] [address] documented as of this encounter Visit Diagnoses Not on filedocumented in this encounter Additional Health Concerns Assessment Noted Time PHQ-9 Depression Total Score: 1 09/29/19 22 10:03 AM FOOD SERVICE AGENT documented as of this encounter Care Teams Missile Inspector Preflight Relationship Specialty Start Date End Date Soledad Lucas MD [address] [address] PCP - General INTERNAL MEDICINE 09/29/21 documented as of this encounter
--- OUTSIDE RECORDS SUMMARY | 2024-08-03 03:27 | XMS_ITS | Encounter Summary ---
Author Organization [facility] Address [address] [place] [address]. [address] [address] Care Team Providers Care Critical Care Registered Nurse Name Role Phone Soledad Lucas MD Primary Care Provider [phone] Reason for Visit * Reason Onset Date Comments Results 11/05/2021 Encounter Details Date Type Department Care Team (Late st Contact Info) Description 11/05/2021 Telephone [facility] Medical [facility] Multispecialty Care - [address] [place] [address] Soledad Lucas MD [address] [place] [address] [address] [place] [address] Results Social History Tobacco Use [...] suspected to have Coronavirus/COVID-19? No / Unsure 11/01/2021 10:42 AM CDT documented as of this encounter Progress Notes * Soledad Lucas MD - 11/05/2021 7:29 AM CDT I received patient's colonoscopy report done on 07/20/2021. Internal hemorrhoids noted. Hypertrophic right anal papilla also noted. Next colonoscopy in 10 years. Scanned. documented in this encounter Plan of Treatment Upcoming Encounters Date Type Department Care Team (Late st Contact Info) Description 08/19/2024 9:00 AM RETAIL SALES PROFESSIONAL [facility] [place] [address] [address] [place] [address] Soledad Lucas MD [address] [facility] [address] [place] [address] 12/16/2024 10:40 AM CDT Office Visit [facility] Mult[facility]pecialty [facility] [address] [facility] [place] [address] Ramsey Oakley MD [address] [facility] [address] [place] [address] documented as of this encounter Visit Diagnoses Not on filedocumented in this encounter Additional Health Concerns Assessment Noted Time PHQ-9 Depression Total Score: 1 09/29/19 22 10:03 AM RETAIL SALES PROFESSIONAL documented as of this encounter Care Teams Critical Care Registered Nurse Relationship Specialty Start Date End Date Soledad Lucas MD [address] [facility] [address] [place] [address] PCP - General INTERNAL MEDICINE 09/29/21 documented as of this encounter
--- OUTSIDE RECORDS SUMMARY | 2024-08-03 03:27 | XMS_ITS | Encounter Summary ---
Author Organization [facility] Address [address] [place] [address]. [address] [address] Care Team Providers Care Surfboard Maker Name Role Phone Soledad Lucas MD Primary Care Provider [phone] Reason for Visit * Reason Onset Date Comments Medication 09/29/2021 Encounter Details Date Type Department Care Team (Late st Contact Info) Description 09/29/2021 Telephone [facility] Multispecialty Care - [address] [place] [address] Soledad Lucas MD [address] [place] [address] 157 [place] [address] Medication Social History Tobacco Use [...] Coronavirus/COVID-19? No / Unsure 09/29/2021 8:43 AM CRANIOLOGIST documented as of this encounter Progress Notes * Soledad Lucas MD - 09/29/2021 5:39 PM CST Vit d sent IOLOGIST documented in this encounter Plan of Treatment Upcoming Encounters Date Type Department Care Team (Late st Contact Info) Description 08/19/2024 9:00 AM CRANIOLOGIST [facility] [address] [place] [address] Soledad Lucas MD [address] [address] 12/16/2024 10:40 AM CDT [facility] [address] [facility] [place] [address] Ramsey Oakley MD [address] [facility] [address] [place] [address] documented as of this encounter Visit Diagnoses Diagnosis Vitamin D deficiency- Primary Unspecified vitamin D deficiency documented in this encounter Additional Health Concerns Assessment Noted Time PHQ-9 Depression Total Score: 1 09/29/19 10:03 AM CRANIOLOGIST documented as of this encounter Care Teams Surfboard Maker Relationship Specialty Start Date End Date Soledad Lucas MD [address] [place] [address] PCP - General INTERNAL MEDICINE 09/29/21 documented as of this encounter
--- OUTSIDE RECORDS SUMMARY | 2024-08-03 03:27 | XMS_ITS | Encounter Summary ---
Author Organization [facility] Address [address] [place] [address]. [place], [place] [address] [place] [address] Care Team Providers Care Cooperative Manager Name Role Phone Soledad Lucas MD Primary Care Provider [phone] Reason for Visit * Reason Onset Date Comments Appointment Request 10/19/2021 Barbie stress Encounter Details Date Type Department Care Team ([facility] Contact Info) Description 10/19/2021 Telephone [facility] [place] [address] Faby Yu RMA Appointment Request (Barbie stress) Social History Tobacco Use Types Packs/Day [...] Coronavirus/COVID-19? No / Unsure 10/13/2021 9:45 AM GROUP LEADER WAFER POLISHING documented as of this encounter Progress Notes * GLORIA Samuels - 10/19/2021 3:40 PM CDT Left message on for patient to schedule Barbie Stress per Dr Soledad Lucas documented in this encounter Plan of Treatment Upcoming Encounters Date Type Department Care Team (Late st Contact Info) Description 08/19/2024 9:00 AM GROUP LEADER WAFER POLISHING [facility] [place] [address] [address] [place] [address] Soledad Lucas MD [address] [place] [address] 12/16/2024 10:40 AM CDT [facility] [address] [facility] [place] [address] Ramsey Oakley MD [address] [facility] [address] [place] [address] documented as of this encounter Visit Diagnoses Not on filedocumented in this encounter Additional Health Concerns Assessment Noted Time PHQ-9 Depression Total Score: 1 09/29/19 10:03 AM GROUP LEADER WAFER POLISHING documented as of this encounter Care Teams Cooperative Manager Relationship Specialty Start Date End Date Soledad Lucas MD [address] [place] [address] PCP - General INTERNAL MEDICINE 09/29/21 documented as of this encounter
--- OUTSIDE RECORDS SUMMARY | 2024-08-03 03:27 | XMS_ITS | Encounter Summary ---
Author Organization [facility] Address [address] [place] [address]. [place], [place] [id number] [place] [address] Care Team Providers Care Geodetic Advisor Name Role Phone Soledad Lucas MD Primary Care Provider [phone] Encounter Details Date Type Department Care Team (Latest Contact Info) Description 10/06/2021 Travel Social History Tobacco Use Types Packs/Day [...] Coronavirus/COVID-19? No / Unsure 10/06/2021 1:31 PM ARBORICULTURE INSTRUCTOR documented as of this encounter Plan of Treatment Upcoming Encounters Date Type Department Care Team (Late st Contact Info) Description 08/19/2024 9:00 AM ARBORICULTURE INSTRUCTOR Office Visit [facility] Medical [facility] Multispecialty Care - [place] [address] [address] [place] [address] Soledad Lucas MD [address] [place] [address] [address] [place] [address] 12/16/2024 10:40 AM CDT Office Visit [facility] Medical Group Multispecialty Care - [facility] [address] [facility] [address] [place] [address] Ramsey Oakley MD 3 [facility] [address] [place] [address] documented as of this encounter Visit Diagnoses Not on filedocumented in this encounter Additional Health Concerns Assessment Noted Time PHQ-9 Depression Total Score: 1 09/29/19 10:03 AM ARBORICULTURE INSTRUCTOR documented as of this encounter Care Teams Geodetic Advisor Relationship Specialty Start Date End Date Soledad Lucas MD [address] [address] PCP - General INTERNAL MEDICINE 09/29/21 documented as of this encounter
--- OUTSIDE RECORDS SUMMARY | 2024-08-03 03:27 | XMS_ITS | Encounter Summary ---
Author Organization [facility] Address [address] [place] [address]. [place], [place] [address] [place] [address] Care Team Providers Care Speech Pathology Supervisor Name Role Phone Soledad Lucas MD Primary Care Provider [phone] Encounter Details Date Type Department Care Team (Latest Contact Info) Description 11/01/2021 Travel Social History Tobacco Use Types Packs/Day [...] st Contact Info) Description 08/19/2024 9:00 AM INVESTIGATOR WELFARE Office Visit [facility] Medical Group Multispecialty Care - [place] [address] [address] [place] [address] Soledad Lucas MD [address] [place] [address] [address] [place] [address] 12/16/2024 10:40 AM CDT Office Visit [facility] Medical Group Multispecialty Care - [facility] [address] [facility] [address] [place] [address] Ramsey Oakley MD 3 [facility] [address] [place] [address] documented as of this encounter Visit Diagnoses Not on filedocumented in this encounter Additional Health Concerns Assessment Noted Time PHQ-9 Depression Total Score: 1 09/29/19 22 10:03 AM INVESTIGATOR WELFARE documented as of this encounter Care Teams Speech Pathology Supervisor Relationship Specialty Start Date End Date Soledad Lucas MD [address] [address] PCP - General INTERNAL MEDICINE 09/29/21 documented as of this encounter
--- OUTSIDE RECORDS SUMMARY | 2024-08-03 03:27 | XMS_ITS | Encounter Summary ---
Author Organization [facility] Address [address] [place] [address]. 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 Office Visit [facility] Medical Group Multispecialty Care - [place] [address] [address] [place] [address] Soledad Lucas MD [address] [place] [address] [address] [place] [address] 12/16/2024 10:40 AM CDT Office Visit [facility] Medical Group Multispecialty Care - [facility] 3 [facility] [address] [place] [address] Ramsey Oakley MD [address] [facility] [address] [place] [address] documented as of this encounter Visit Diagnoses Not on filedocumented in this encounter Additional Health Concerns Assessment Noted Time PHQ-9 Depression Total Score: 1 09/29/19 22 10:03 AM FLEET DRIVER documented as of this encounter Care Teams Yellow Pages Space Salesperson Relationship Specialty Start Date End Date Soledad Lucas MD [address] [address] PCP - General INTERNAL MEDICINE 09/29/21 documented as of this encounter
--- OUTSIDE RECORDS SUMMARY | 2024-08-03 03:27 | XMS_ITS | Encounter Summary ---
Author Organization [facility] Address [address] [place] [address]. [place], [place] [address] [place] [address] Care Team Providers Care Or Director Name Role Phone Soledad Lucas MD Primary Care Provider [phone] Reason for Referral * Procedure (Routine) - Closed Specialty Diagnoses / Procedures Referred By Prasanth santillan Referred To Contact Diagnoses Mild intermittent asthma without complication (HHS/HCC) Procedures Complete PFT (pre/post Sumner, Lung Vol, Diff Capacity) (01186, 50691, 00442, 65562) Soledad Lucas MD [address] [place] [address] Phone: tel: fax: Referral ID Status Reason Start Date Expiration Date Visits Re quested Visits Authorized [id number] Closed 11/01/2021 12/02/2022 1 1 Reason for Visit * Reason Comments Follow Up Pt is here to follow up on his blood pressure, asthma and pain in right thumb. Encounter Details Date Type Department Care Team (Latest Contact Info) Description 11/01/2021 10:40 AM CDT Office Visit [facility] Medical Group Multispecialty Care - [place] [address] [address] [place], [place] [id number] Soledad Lucas MD [facility] [address] [address] Follow Up (Pt is here to follow up on his blood pressure, asthma and pain in right thumb. ) Social History Tobacco Use Types Packs/Day [...] Reading Time Taken Comments Blood Pressure 128/76 11/01/2021 11:00 AM CDT Pulse 85 11/01/2021 11:00 AM CDT Temperature 37.3 ??C (99.2 ??F) 11/01/2021 11:00 AM C DT Respiratory Rate 18 11/01/2021 11:00 AM CDT Oxygen Saturation 99% 11/01/2021 11:00 AM CDT Inhaled Oxygen Concentration - - Weight 96.2 kg (212 lb) 11/01/2021 11:00 AM CDT Height 185.4 cm (6' 1 ) 11/01/2021 11:00 AM CDT Body Mass Index 27.97 11/01/2021 11:00 AM CDT documented in this encounter Patient Instructions * Patient Instructions* Soledad Lucas MD - 11/01/2021 10:40 AM CDT Please follow up in 4 months. Patient Education Patient Education Osteoarthritis Discharge Instructions About this topic Osteoarthritis is also called OA. It is swelling of the joints due to wearing down of the cartilage. The cartilage is the protective coating at the end of the bone. It helps the joints glide smoothlywith each other during movement. The cartilage most often wears down from years of use. OA is common among older people. It often affects the joints in the hands, feet, hips, and knees. There is no cure for this condition but the pain can be helped. Pain may be lowered by drugs, lifestyle changes, activity, surgery, and joint fluid supplements. What care is needed at home? ?? Ask your doctor what you need to do when you go home. Make sure you ask questions if you do not understand what the doctor says. This way you will know what you need to do. ?? Take all your medicines as ordered for treating your OA. This may include medicines ordered by your doctor or medicines like ibuprofen or naproxen for swelling and pain. These are nonsteroidal anti-inflammatory drugs (NSAIDS). Some tyfy-ndt-klvatsv medicines and prescription medicines contain the same drug. Do not take multiple medicines without talking to your doctor first. ?? Rest your joint. Prop it on pillows, keeping it above the level of your heart. This may help lessen pain and swelling. ?? Ice may help with your pain. Place an ice pack or a bag of frozen vegetables wrapped in a towel over the painful part. Never put ice right on the skin. Do not leave the ice on more than 10 to 15 minutes at a time. ?? Talk with your regular doctor about other medicines or lifestyle changes that can help prevent OA flares. Keeping a healthy weight or losing weight in a healthy way may help. ?? Try other methods of relieving pain such as massage, relaxation, breathing exercise, yoga, and image and music therapy. What follow-up care is needed? ?? Your doctor may ask you to make visits to the office to check on your progress. Be sure to keep these visits. ?? Your doctor may send you to a physical therapist to help improve your motion, balance, and strength. What drugs may be needed? The doctor may order drugs to: ?? Help with pain and swelling The doctor may give you a shot of an anti-inflammatory drug called a corticosteroid. This will helpwith swelling. Talk to your doctor about the risks of this shot. Will physical activity be limited? Physical activities may be limited if you are in pain. Ask your doctor about the right amount of activity for you. What changes to diet are needed? If you are overweight, ask a stable attendant for a weight loss plan. Weight loss will lower the stress onyour joints. What problems could happen? ?? Not able to move around well ?? Low mood What can be done to prevent this health problem? There is no known way to prevent this condition. When do I need to call the doctor? ?? You have a fever of 100.4??F (38??C) or higher or chills. ?? Your symptoms are not improving within 2 to 3 days or your pain does not go away completely after a few weeks. Teach Back: Helping You Understand The Teach Back Method helps you understand the information we are giving you. After you talk with the staff, tell them in your own words what you learned. This helps to make sure the staff has described each thing clearly. It also helps to explain things that may have been confusing. Before going home, make sure you can do these: ?? I can tell you about my condition. ?? I can tell you what may help ease my pain. ?? I can tell you what I will do if my pain is very bad. Where can I learn more? [employer] http://orthoinfo.aaos.org/topic.cfm?mrfgf=c44573 Arthritis Foundation http://www.arthritis.org/conditions-treatments/disease-center/osteoarthritis/ National [place] of Arthritis and Musculoskeletal and Skin Diseases http://www.niams.nih.gov/Health_Info/Osteoarthritis/osteoarthritis_ff.pdf National [place] of Health ? [employer] http://nihseniorhealth.gov/osteoarthritis/whatisosteoarthritis/01.html Last Reviewed Date 2021-01-22 Consumer Information Use and Disclaimer This generalized information is a limited summary of diagnosis, treatment, and/or medication information. It is not meant to be comprehensive and should be used as a tool to help the user understand and/or assess potential diagnostic and treatment options. It does NOT include all information about conditions, treatments, medications, side effects, or risks that may apply to a specific patient. Itis not intended to be medical advice or a substitute for the medical advice, diagnosis, or treatment of a health care provider based on the health care provider's examination and assessment of a patient???s specific and unique circumstances. Patients must speak with a health care provider for complete information about their health, medical questions, and treatment options, including any risks orbenefits regarding use of medications. This information does not endorse any treatments or medications as safe, effective, or approved for treating a specific patient. [employer] and its affiliates disclaim any warranty or liability relating to this information or the use thereof. The use of this information is governed by the Terms of Use, available at https://www.[employer]/en/solutions/lexicomp/about/aleks Copyright Copyright ?? 2020 [employer]. and its affiliates and/or licensors. All rights reserved. documented in this encounter Progress Notes * Soledad Lucas MD - 11/01/2021 10:40 AM CDTSummary: Follow-up wound Images from the original note were not included. Internal Medicine Outpatient Progress Note CC: Follow Up (Pt is here to follow up on his blood pressure, asthma and pain in right thumb. ) HPI: Juliet Stout is a 60-year-old male who presents for follow-up for follow-up for hypertension, asthma and right finger( thumb) joint pain. Patient was recently seen for follow-up for angioedema mild swelling upper lip. Was on lisinopril hydrochlorothiazide. This has since been discontinued and patient switched to losartan hydrochlorothiazide. Angioedema completely resolved. Allergy list updated. Blood pressure at today's visit is 128/76mmhg. Compliant with medications without any side effects. Denies any concerns for chest tightness, shortness of breath, palpitations, ankle swelling, orthopnea or paroxysmal nocturnal dyspnea. Currently does not follow routinely with cardiology. Recently underwent a stress test that was completely normal. Patient is also here for follow-up for asthma. No prior history of pulmonary function test. Recently started on albuterol. He uses his albuterol sparingly. No concerns for shortness of breath, chronic cough or chest tightness. Patient is also here for follow-up for joint injection of the right thumb. Has been having moderatepain in the right thumb joints. Activities such as scrolling on his phone causes significant pain. No trauma. No swelling or redness or rash. Problem List Patient Active Problem List Diagnosis [...] Outpatient Medications Marked as Taking for the 11/01/21 encounter (Office Visit) with Soledad Lucas MD [...] 60 tablet 3 ??? vitamin D2, ergocalciferol, 18365 UNITS capsule Take 1 capsule (50,000 Units total) by mouth weekly. 12 capsule 1 Allergies: Allergies Allergen Reactions ??? Lisinopril Swelling Swollen lips Review of Systems Constitutional: Negative for chills, diaphoresis, fever, malaise/fatigue and weight loss. HENT: Negative. Eyes: Negative. Respiratory: Negative. Cardiovascular: Negative for chest pain, palpitations, orthopnea, claudication, leg swelling and PND. Gastrointestinal: Negative. Genitourinary: Negative. Musculoskeletal: Positive for joint pain (right thumb joint). Negative for back pain, falls, myalgias and neck pain. Neurological: Negative. Objective: Filed Vitals: 11/01/21 1100 BP: 128/76 Pulse: 85 Resp: 18 Temp: 99.2 ??F (37.3 ??C) TempSrc: Temporal SpO2: 99% Weight: 96.2 kg (212 lb) Height: 6' 1 (1.854 m) Body mass index is 27.97 kg/m??. General alert, cooperative, no distress HEENT [...] atraumatic, no cyanosis, 2+ pedal pulses, no edema, tender right thumb 1st and 2nd interphalangeal joint, no swelling Skin Skin color, texture, turgor normal. No rashes or lesions appreciated. Neurologic No focal deficits, motor strength is grossly normal and symmetric Psych Normal mood and affect MSK No synovitis, no joint effusions Lymph No cervical or supraclavicular adenopathy Assessment and Plan: Encounter Diagnose(s) ICD-10-CM ICD-9-CM SNOMED CT(R) 1. Primary hypertension I10 401.9 ESSENTIAL HYPERTENSION losartan- hydroCHLOROthiazide 50-12.5 MG tablet 2. Mild intermittent asthma without complication J45.20 493.90 MILD INTERMITTENT ASTHMA Complete PFT (pre/post Sumner, Lung Vol, Diff Capacity) (79133, 63244, 31985, 20146) albuterol sulfate HFA 108 (90 Base) MCG/ACT inhaler 3. 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 Need for prophylactic vaccination against Streptococcus pneumoniae (pneumococcus) Z23 V03.82 REQUIRES VACCINATION [60796] Pneumovax 23 (Pneumococcal) 1. Primary hypertension - Patient currently controlled on current treatment for hypertension. Will continue current dose. Continued to discuss weight loss, adequate cardiovascular fitness. DASH diet was discussed as well asdecrease in sodium intake. BP goal of 120/80mmhg expressed. - continue losartan-hydroCHLOROthiazide 50-12.5 MG tablet; Take 1 tablet by mouth daily. Dispense: 90 tablet; Refill: 1 2. Mild intermittent asthma without complication - Controlled - Complete PFT (pre/post Sumner, Lung Vol, Diff Capacity) (71335, 04444, 77248, 93807); Future - albuterol sulfate HFA 108 (90 Base) MCG/ACT inhaler; Inhale 2 puffs into the lungs every 6 (six) hours as needed for Wheezing. Dispense: 18 g; Refill: 5 3. 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 Need for prophylactic vaccination against Streptococcus pneumoniae (pneumococcus) - [90384] Pneumovax 23 (Pneumococcal) Counseling given: Yes Comment: counsled by Dr [...] the patient. Follow up office visit in 4 months. Requested [facility] for special caret or telephone follow up prn if symptoms change, worsen, or persist, or if side effect of treatment is experienced. DRAGON: This dictation was at least in part performed using SCOUPYon speak and there may be some inherent flaws in this varnish blender due to the nature of this program. Soledad Lucas MD Internal Medicine [facility], [facility]. documented in this encounter Plan of Treatment Upcoming Encounters Date Type Department Care Team (Late st Contact Info) Description 08/19/2024 9:00 AM SECURITY PROFESSIONALS [facility] [place] [address] [address] [place] [address] [place] [address] [place] [address] [address] [place] [address] 12/16/2024 10:40 AM CDT [facility] 3 [facility] [address] [place] [address] Ramsey Oakley MD [address] [facility] [address] [place] [address] Scheduled Orders Name Type Priority Associated Diagnoses Orde r Schedule DRAIN/INJECT SMALL JOINT/BURSA Procedures Routine 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 ??Post-bronchodilator FVC 112% predicted; FEV1 is 3.45 liters, 105% predicted; FEV1/FVC ratio 73%. ?? Positive bronchodilator response using FVC and ATS criteria, less than significant response to bronchodilator using FEV1 and OLYA criteria. LUNG VOLUMES: ??TLC 86% predicted, RV 97% predicted, ERV 94% predicted. DIFFUSING CAPACITY: ??Unadjusted DLCO 101% predicted. OVERALL IMPRESSION: 1. ??Spirometry within normal limits. 2. ??Suggestion of positive bronchodilator response. 3. ??Total lung capacity within normal limits. 4. ??Unadjusted DLCO within normal limits. D: ??11/17/2021 02:14 PM #[id number] T: ??11/17/2021 04:46 PM /NTS Procedure Note Ernie Morley MD - 11/24/2021 SPIROMETRY: Pre-bronchodilator FVC 97% predicted; FEV1 is 3.17 liters,97% predicted; FEV1/FVC ratio 76%. Post-bronchodilator FVC 112%predicted; FEV1 is 3.45 liters, 105% predicted; FEV1/FVC ratio 73%.Positive bronchodilator response using FVC and ATS criteria, less thansignificant response to bronchodilator using FEV1 and OLYA criteria. LUNG VOLUMES: TLC 86% predicted, RV 97% predicted, ERV 94% predicted. DIFFUSING CAPACITY: Unadjusted DLCO 101% predicted. OVERALL IMPRESSION: 1. Spirometry within normal limits. 2. Suggestion of positive bronchodilator response. 3. Total lung capacity within normal limits. 4. Unadjusted DLCO within normal limits. 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 Need for prophylactic vaccination against Streptococcus pneumoniae (pneumococcus) Need for prophylactic vaccination against streptococcus pneumoniae (pneumococcus) Mild intermittent asthma without complication (HHS/HCC) Unspecified asthma documented in this encounter Administered Medications Inactive Administered Medications - up to 3 most recent administrations Medication Order MAR Action Action Date Dose Rate Site lidocaine (XYLOCAINE) 1 % injection SOLN 2 mL 2 mL, Other, Once, 1 dose, On Mon11/01/21 at 1215Indications: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 Given 11/01/2021 12:18 PM CDT 2 mLs Right Hand methylPREDNISolone acetate (DEPO-Medrol) injection 40 mg 40 mg, Intra-articular, Once, 1 dose, On Mon11/01/21 at 1215, Shake WellIndications: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 Given 11/01/2021 12:19 PM CDT 40 mg Other documented in this encounter Additional Health Concerns Assessment Noted Time PHQ-9 Depression Total Score: 1 09/29/19 10:03 AM SECURITY PROFESSIONALS documented as of this encounter Care Teams Or Director Relationship Specialty Start Date End Date Soledad Lucas MD [address] [address] PCP - General INTERNAL MEDICINE 09/29/21 documented as of this encounter
--- OUTSIDE RECORDS SUMMARY | 2024-08-03 03:27 | XMS_ITS | Encounter Summary ---
Author Organization [facility] Address [address] [place] [address]. [address] [address] Care Team Providers Care Manager Packaging Name Role Phone Soledad Lucas MD Primary Care Provider [phone] Reason for Referral * Imaging (Routine) - Closed Specialty Diagnoses / Procedures Referred By Prasanth santillan Referred To Contact RADIOLOGY Diagnoses Chronic neck pain Procedures XR CERV SPINE AP+LAT 2V Soledad Lucas MD [address] [address] Phone: tel: fax: Referral ID Status Reason Start Date Expiration Date Visits Re quested Visits Authorized [id number] Closed 10/13/2021 11/13/2022 1 1 ICATIONS SUPPORT LEAD * Imaging (Routine) - Closed Specialty Diagnoses / Procedures Referred By Prasanth santillan Referred To Contact RADIOLOGY Diagnoses Left-sided chest pain Procedures NM PHARM NUC STRESS TEST 1DAY Soledad Lucas MD [address] [address] Phone: tel: fax: Referral ID Status Reason Start Date Expiration Date Visits Re quested Visits Authorized [id number] Closed 10/21/2021 12/05/2021 1 1 ICATIONS SUPPORT LEAD Reason for Visit * Reason Comments Follow Up Pt is here to follow up on hypertension, asthma, and chest discomfort. Encounter Details Date Type Department Care Team (Latest Contact Info) Description 10/13/2021 9:40 AM APPLICATIONS SUPPORT LEAD Office Visit [facility] - [address] [place] [address] Soledad Lucas MD [address] [facility] [address] [place], [place] [id number] Follow Up (Pt is here to follow up on hypertension, asthma, and chest discomfort. ) Social History Tobacco Use Types Packs/Day [...] Coronavirus/COVID-19? No / Unsure 10/13/2021 9:45 AM APPLICATIONS SUPPORT LEAD documented as of this encounter Last Filed Vital Signs Vital Sign Reading Time Taken Comments Blood Pressure 97/50 10/13/2021 10:15 AM APPLICATIONS SUPPORT LEAD Pulse 73 10/13/2021 10:15 AM APPLICATIONS SUPPORT LEAD Temperature 36.2 ??C (97.1 ??F) 10/13/2021 10:[address] Respiratory Rate 18 10/13/2021 10:15 AM APPLICATIONS SUPPORT LEAD Oxygen Saturation 100% 10/13/2021 10:15 AM APPLICATIONS SUPPORT LEAD Inhaled Oxygen Concentration - - Weight 98 kg (216 lb) 10/13/2021 10:15 AM APPLICATIONS SUPPORT LEAD Height 185.4 cm (6' 1 ) 10/13/2021 10:15 AM APPLICATIONS SUPPORT LEAD Body Mass Index 28.5 10/13/2021 10:15 AM APPLICATIONS SUPPORT LEAD documented in this encounter Patient Instructions * Patient Instructions* Soledad Lucas MD - 10/13/2021 9:40 AM APPLICATIONS SUPPORT LEAD Follow up in 2 months. Patient Education Patient Education Lowering Your Risk of High Blood Pressure About this topic High blood pressure happens when your heart must work harder than normal to pump blood to the body.Blood pressure measures the pressure in your arteries when your heart beats. Your arteries are tubes that carry blood from your heart to the rest of your body. If the arteries are clogged, stiff, or squeeze too tightly, the pressure goes up and your heart must work harder than normal. Your blood pressure has two numbers. The top number is the systolic number. It measures the highestamount of pressure in the artery when the heart is beating. The second number or bottom number is the diastolic number. It is the lowest pressure in the artery when the heart is resting. Sometimes diseases, like kidney disease or abnormal hormones, can lead to high blood pressure. Mostpeople have no known cause or reason for high blood pressure. In most cases, high blood pressure cannot be cured. You must control it with drugs and lifestyle changes. If high blood pressure is not controlled, it can lead to heart attack, stroke, and kidney problems. Many people with high blood pressure do not feel sick and don???t know that they have it until their blood pressure is checked. However, this does not mean that you do not need treatment for high blood pressure. General Many things can raise your chances of having high blood pressure. Some of them you can control and others you cannot. It is important to know about all of them. Some health conditions may raise your chances for having high blood pressure. Take extra care and work with your doctor to keep these health problems under control. Your risk for high blood pressure is higher if you have: ?? Diabetes ?? Kidney disease ?? High cholesterol ?? Obstructive sleep apnea ?? Hormone problems - thyroid disease, [place]???s syndrome, acromegaly, hyperaldosteronism, and pheochromocytoma ?? Lupus ?? Scleroderma You may have control over some things that make you more likely to have high blood pressure. It is important to know about them and work to keep these problems under control. You are at a higher riskof high blood pressure if you: ?? Smoke or use tobacco ?? Use alcohol or illegal drugs ?? Do not exercise regularly ?? Are overweight ?? Have a lot of stress in your life ?? Have a poor diet or a diet high in salt or sodium ?? Have a diet low in potassium ?? Take certain medications Some things you are not able to control, but they are important to know about. For example, men aremore likely to have high blood pressure before about age 60. However, women are more likely to havehigh blood pressure after menopause. You are also at a higher risk for high blood pressure if you: ?? Are older. Your risk gets higher the older you are. ?? Have a family history of high blood pressure ?? Are What lifestyle changes are needed? ?? You may be asked to get a blood pressure monitor to use at home. Learn how to use it and record your blood pressure results between doctor visits. ?? Stop smoking and using tobacco. Smoking causes your arteries to narrow and raises your blood pressure. Talk to your doctor if you need help quitting. ?? Limit how much alcohol you drink to no more than 1 drink a day for women or 2 drinks a day for men. ?? Do not use illegal drugs. Talk to your doctor if you need help quitting. ?? If you are under a great deal of stress, ask your doctor for advice on how to lower the stress. You may need to learn a variety of stress reduction methods, such as yoga, meditation, guided imagery, elsa chi, or even have a drug prescribed to help you. ?? Eat a healthy, well-balanced diet. Try to limit how much salt or sodium you eat each day. ?? Lose weight if you are overweight. ?? Get regular exercise. This can help your heart pump better, lower your blood pressure, and help you lose weight. ?? Work with your doctor to treat problems like sleep apnea, diabetes, high cholesterol, and kidneyproblems. ?? Talk with your doctor or pharmacist about all of your drugs, including bqmk-dnv-oinvpfr medicines, to see if they may cause high blood pressure. What drugs may be needed? Your doctor may order drugs to: ?? Lower blood pressure ?? Control blood sugar ?? Lower cholesterol levels ?? Help with your mood ?? Help you stop using tobacco Take your drugs exactly as ordered. Controlling problems like high blood pressure, diabetes, or high cholesterol are all ways to lower your chances of having high blood pressure. Will physical activity be limited? It is good to get some kind of exercise each day. Walking, gardening, swimming, riding a bike, or dancing are all good ways to add exercise to your life. Always check with your doctor if you have questions about starting an exercise program. What changes to diet are needed? Eat a healthy diet. Talk to your doctor or a dietitian if you need to lose weight. ?? Do not use salt on your food. Use herbs and spices to improve the taste. ?? Do not eat more than 2.3 grams of sodium a day. If you have high blood pressure, aim for 1.5 grams of sodium a day. Read food labels to see how much sodium is in a food. ?? Limit coffee, tea, and soda to 2 cups (480 mL) a day. ?? Eat lots of fruits, vegetables, and low-fat dairy products. ?? Avoid fatty foods, like fried foods or chips. ?? Talk with your dietitian about the diet changes you need and the number of calories you should eat each day. When do I need to call the doctor? Activate the emergency medical system right away if you have signs of a heart attack. Call 911 in the [place] or [place]. The sooner treatment begins, the better your chances for recovery. Call for emergency help right away if you have: ?? Signs of heart attack: ? Chest pain ? Pain in other areas of the upper body (either or both arms, jaw, neck, etc.) ? Trouble breathing ? Fast heartbeat ? Feeling dizzy ?? Signs of stroke: ? Sudden numbness or weakness of the face, arm, or leg, especially on one side of the body ? Sudden confusion, trouble speaking or understanding ? Sudden trouble seeing in one or both eyes ? Sudden trouble walking, dizziness, loss of balance or coordination ? Sudden severe headache with no known cause ? Face droops on one side Call your doctor if you have: ?? Blood pressure that is 20 points higher than your normal top or bottom number ?? Two blood pressure readings higher than 180/120 ?? Very bad headache ?? Confusion ?? Sudden change in hearing or eyesight ?? Nosebleed Where can I learn more? [place] [employer] https://www.heart.org/en/health-topics/apzm-kbbzn-ncnoerca/laqitaa-nkp-tts-make- nu-wqytss-zowa-blood-pressure [place] [employer] https://www.heart.org/en/health-topics/dswq-kykid-hglgopbs/wvb-gqbw-poyzl-pressu cq-tk-m-silent-killer/blqp-xdaq-uwks-dwpruhl-gvo-jgcg-blood-pressure Centers for Disease Control and Prevention https://www.cdc.gov/bloodpressure/risk_factors.htm NHS Choices https://www.nhs.uk/conditions/cury-guuzk-emivivow-hypertension/ Last Reviewed Date 2019-10-31 Consumer Information Use and Disclaimer This generalized [...] or approved for treating a specific patient. [employer] and its affiliates disclaim any warranty or liability relating to this information or the use thereof. The use of this information is governed by the Terms of Use, available at https://www.[employer].com.[employer]/en/solutions/lexicomp/about/aleks Copyright Copyright ?? 2020 [employer] and its affiliates and/or licensors. All rights reserved. ICATIONS SUPPORT LEAD documented in this encounter Progress Notes * Soledad Lucas MD - 10/13/2021 9:40 AM CSTSummary: Follow-up needs Images from the original note were not included. Internal Medicine Outpatient Progress Note CC: Follow Up (Pt is here to follow up on hypertension, asthma, and chest discomfort. ) HPI: Juliet Stout is a 60-year-old -[place] male who presents for follow- up for hypertension, asthma, prediabetes and to follow-up for joint pains in the metacarpal joint. He was previously on 10 mg daily of amlodipine. His medications were changed to lisinopril hydrochlorothiazide due to uncontrolled blood pressures. He endorses compliance to medications without any side effects. During his previous visit, patient had complained about left-sided chest discomfort especially on applying pressure to the left side of chest wall and during stressful events. An EKG done showed abnormal frequent preatrial contractions, indeterminate anteroseptal infarct and left atrialenlargement. No prior history of cardiac events or stenting. He does not follow routinely with cardiology. Denies any concerns for shortness of breath with activity, palpitations, ankle swelling orthopnea. ?? Patient tells me he has had mild asthma since childhood. Was previously not on inhalers. I did start him on albuterol inhaler. Does not use tobacco products. He smokes marijuana occasionally. Denies any concerns for chronic cough or shortness of breath with activity. No recent pulmonary function testing. Does not follow routinely with pulmonary. ?? Patient also recently diagnosed with prediabetes and started on Metformin 500 mg daily. Endorses compliance to medications without any side effects. Current BMI of 28.50 kg/m??. Known hypertensive. Patient also here for follow-up for joint pains in the joints of the hands. Currently patient is onFlexeril and meloxicam but tells me meloxicam is not really helping. He tells me pain is currently mild. No prior surgeries to the joints of the hands. Patient reports intermittent episodes of posterior neck discomfort with occasional sharp pain that radiates to his knees. This has been ongoing for a while. No prior injuries. Rates pain is mild to moderate. Has been taking meloxicam without any significant improvement. No prior neck surgeries. Problem List Patient Active Problem List Diagnosis [...] Outpatient Medications Marked as Taking for the 10/13/21 encounter (Office Visit) with Soledad Lucas MD [...] 60 tablet 3 ??? vitamin D2, ergocalciferol, 42441 UNITS capsule Take 1 capsule (50,000 Units total) by mouth weekly. 12 capsule 1 Allergies: No Known Allergies ROS Objective: Filed Vitals: 10/13/21 1015 BP: 97/50 Pulse: 73 Resp: 18 Temp: 97.1 ??F (36.2 ??C) TempSrc: Temporal SpO2: 100% Weight: 98 kg (216 lb) Height: 6' 1 (1.854 m) Body mass index is 28.5 kg/m??. General alert, cooperative, no distress HEENT [...] 1. Primary hypertension I10 401.9 ESSENTIAL HYPERTENSION lisinopril- hydroCHLOROthiazide 20-12.5 MG tablet 2. Mild intermittent asthma without complication J45.20 493.90 MILD INTERMITTENT ASTHMA albuterol sulfate HFA 108 (90 Base) MCG/ACT inhaler 3. Mixed hyperlipidemia E78.2 272.2 MIXED HYPERLIPIDEMIA atorvastatin 40 MG tablet 4. Left-sided chest pain R07.9 786.50 LEFT SIDED CHEST PAIN aspirin 81 MG chewable tablet NM PHARM NUC STRESS TEST 1DAY atorvastatin 40 MG tablet 5. Overweight (BMI 25.0-29.9) E66.3 278.02 BODY MASS INDEX 25-29 - OVERWEIGHT 6. Primary osteoarthritis of both hands M19.041 715.14 OSTEOARTHRITIS OF JOINT OF BILATERAL HANDS acetaminophen CR (TYLENOL 8 HOUR ARTHRITIS PAIN) 650 MG Tab CR 8 hr tablet M19.042 7. Need for nucbdkhawf-iqjmtvw-qkuokvvem (Tdap) vaccine Z23 V06.1 REQUIRES DIPHTHERIA, TETANUS AND PERTUSSIS VACCINATION [45929] Adacel (Tdap) 8. Refused influenza vaccine Z28.21 V64.06 INFLUENZA VACCINATION DECLINED 9. Chronic neck pain M54.2 723.1 CHRONIC NECK PAIN XR CERV SPINE AP+LAT 2V G89.29 338.29 XR CERV SPINE AP+LAT 2V 1. Primary hypertension - home blood pressure appear to be at goal and patient asymptomatic - continue lisinopril-hydroCHLOROthiazide 20-12.5 MG tablet; Take 1 tablet by mouth daily. Dispense: 90 tablet; Refill: 1 - Patient currently controlled on current treatment for hypertension. Will continue. Continued to discuss weight loss, adequate cardiovascular fitness. DASH diet was discussed as well as decrease in sodium intake. BP goal of < 130/80 expressed. 2. Mild intermittent asthma without complication - controlled - will plan to get a pulmonary function testing at some point - continue albuterol sulfate HFA 108 (90 Base) MCG/ACT inhaler; Inhale 2 puffs into the lungs every6 (six) hours as needed for Wheezing. Dispense: 18 g; Refill: 5 3. Mixed hyperlipidemia - The 10-year ASCVD risk score (Ishaan KESSLER Jr., et al., 2013) is: 7.1% Values used to calculate the score: Age: 60 years Sex: Male Is Non- : Yes Diabetic: No Tobacco smoker: No Systolic Blood Pressure: 97 mmHg Is BP treated: Yes HDL Cholesterol: 71 MG/DL Total Cholesterol: 139 MG/DL - start atorvastatin 40 MG tablet; Take 1 tablet (40 mg total) by mouth nightly at bedtime. Dispense: 90 tablet; Refill: 2 4. Left-sided chest pain - start aspirin 81 MG chewable tablet; Chew 1 tablet (81 mg total) by mouth daily. Dispense: 30 tablet; Refill: 0 - NM PHARM NUC STRESS TEST 1DAY; Future - start atorvastatin 40 MG tablet; Take 1 tablet (40 mg total) by mouth nightly at bedtime. Dispense: 90 tablet; Refill: 2 5. Overweight (BMI 25.0-29.9) - -Pt has elevated weight with BMI Body mass index is 28.5 kg/m??., and will need to work hard on reducing carbohydrates and total calories. -You may use the free smart phone apps such as Laguo to help track calories and try to reduce by 15% every 4 weeks. -Patient will work on reducing total portion sizes to try to reduce the size of their stomach. -Exercising about 30 minutes every day with cardio work outs. -Avoid regular soda, juices and alcohol. -Recommended limiting GPS foods (Grains, Potatoes, Sugars) as much as possible. Eating food that itis not highly processed and that they can recognize. Eating when they are hungry and not by a time schedule. -Lets aim to have them loose about 1 pound per week and 5 pounds per month. 6. Primary osteoarthritis of both hands - use acetaminophen CR (TYLENOL 8 HOUR ARTHRITIS PAIN) 650 MG Tab CR 8 hr tablet; Take 1 tablet (650 mg total) by mouth 3 (three) times daily as needed. Dispense: 60 tablet; Refill: 3 - discontinue meloxicam 7. Need for kjcayagdnk-naytpmb-ybplodaqv (Tdap) vaccine - [35627] Adacel (Tdap) 8. Refused influenza vaccine 9. Chronic neck pain - XR CERV SPINE AP+LAT 2V; Future - XR CERV SPINE AP+LAT 2V Counseling given: Yes Comment: counsled by Dr [...] the patient. Follow up office visit in 2 months. Requested MyChart or telephone follow up prn if symptoms change, worsen, or persist, or if side effect of treatment is experienced. DRAGON: This dictation was at least in part performed using [place] speak and there may be some inherent flaws in this sew on operator due to the nature of this program. Soledad Lucas MD Internal Medicine [facility], [facility]. ICATIONS SUPPORT LEAD documented in this encounter Plan of Treatment Upcoming Encounters Date Type Department Care Team (Late st Contact Info) Description 08/19/2024 9:00 AM APPLICATIONS SUPPORT LEAD Office Visit [facility] Mult[facility]pec[facility] Care - [address] [address] [address] [place] [address] Soledad Lucas MD [address] [place] [address] [address] [place] [address] 12/16/2024 10:40 AM CDT Office Visit [facility] - [address] [place] [address] Ramsey Oakley MD [address] [place] [address] Scheduled Orders Name Type Priority Associated Diagnoses Orde r Schedule XR CERV SPINE AP+LAT 2V Imaging Routine Chronic neck pain Expected: 10/13/2021, Expires: 10/13/2022 documented as of this encounter Results * NM PHARM NUC STRESS TEST 1DAY (10/27/2021 9:09 AM CDT) Anatomical Region Laterality Modality Cardiac Nuclear Medicine 10/27/2021 8:05 AM CDT Narrative 10/27/2021 12:04 PM CDT ? Myocardial Perfusion Imaging ? Pat.Name: ??JULIET GRIMM ? Pat.ID: ?[id number] ? St.Date: ?? 10/27/2021 ? Refer.MD: ??Soledad Lucas [id number] Exam Time: 8:05:00 AM ? Study Type:BEN NC HT MUSCLE IMAGE SPECT MULTI Height: ?73in ?Weight: ?216lb ? BSA: ? 2.23 m2 ?Age: ??08/14/1961,60Y ? Sex: ? MALE ?Sonogrphr: Kanchan Patel, DOCK SUPERINTENDENT ? Pat. Stat.:Outpatient ? Reason for Study: [...] ?O2 Sat ? 100 % Max RPP ?82752 ? Symptoms and Complications: Terminated safety issues with legs Symptoms ?? Leg fatigue Complications None Stress ECG Interp Sinus tachycardia, VPCs, J point depression Signed 10/27/2021 12:04 PM Jennifer Still M.D. Procedure Note Jennifer Still MD - 10/27/2021 Myocardial Perfusion Imaging Pat.Name: JULIET GRIMM Pat.ID: [id number] .Date: 10/27/2021 Refer.MD: Soledad Lucas [id number] Exam Time: 8:05:00 AM Study Type:BEN ND HT MUSCLE IMAGE SPECT MULTI Height: 73in Weight: 216lb BSA: 2.23 m2 Age: 108/14/1961,60Y Sex: MALE Sonogrphr: Kanchan Patel [facility] Pat. Stat.:Outpatient Reason for Study: Chest pain, [...] 188/88 O2 Sat 100 % Max RPP 22774 Symptoms and Complications: Terminated safety issues with legs Symptoms Leg fatigue Complications None Stress ECG Interp Sinus tachycardia, VPCs, J point depression Signed 10/27/2021 12:04 PM Jennifer Still M.D. Soledad Lucas MD NUC MED Final Result documented in this encounter Visit Diagnoses Diagnosis Primary hypertension- Primary Unspecified essential hypertension Mild intermittent asthma without complication (HHS/HCC) Unspecified asthma Mixed hyperlipidemia Left-sided chest pain Overweight (BMI 25.0-29.9) Overweight Primary osteoarthritis of both hands Need for eucwdrgtzd-imwdixi-lnfdlnxam (Tdap) vaccine Need for prophylactic vaccination with combined euusdwsmks-gkzlclx-gziglwmze (DTP) vaccine Refused influenza vaccine Vaccination not carried out because of patient refusal Chronic neck pain Cervicalgia Left-sided chest pain- Primary Prediabetes Other abnormal glucose Overweight (BMI 25.0-29.9) Overweight Primary hypertension Unspecified essential hypertension documented in this encounter Additional Health Concerns Assessment Noted Time PHQ-9 Depression Total Score: 1 09/29/19 22 10:03 AM APPLICATIONS SUPPORT LEAD documented as of this encounter Care Teams Manager Packaging Relationship Specialty Start Date End Date Soledad Lucas MD [address] [id number] PCP - General INTERNAL MEDICINE 09/29/21 documented as of this encounter
--- OUTSIDE RECORDS SUMMARY | 2024-08-03 03:27 | XMS_ITS | Encounter Summary ---
Author Organization [facility] - [facility] Address [address] [place] [address]. [address] [address] Care Team Providers Care Systems Development Consultant Name Role Phone Soledad Lucas MD Primary Care Provider [phone] Reason for Visit * Reason Onset Date Comments Returned Call 10/29/2021 Encounter Details Date Type Department Care Team (Late st Contact Info) Description 10/29/2021 Telephone [facility] Mult[facility]pecialty Care - [address] [address] [address] [place] [address] Soledad Lucas MD [address] [place] [address] [address] [place] [address] Returned Call Social History Tobacco Use Types Packs/Day [...] encounter Progress Notes * Stewart Lemus - 10/29/2021 9:27 AM CDT Patient called, he was returning your call. Please call. documented in this encounter Plan of Treatment Upcoming Encounters Date Type Department Care Team (Late st Contact Info) Description 08/19/2024 9:00 AM SCRIBING MACHINE OPERATOR [facility] [address] [place] [address] Soledad Lucas MD [address] [place] [id number] 12/16/2024 10:40 AM CDT Office Visit [facility] [address] [facility] [place] [address] Ramsey Oakley MD [address] [facility] [address] [place] [address] documented as of this encounter Visit Diagnoses Not on filedocumented in this encounter Additional Health Concerns Assessment Noted Time PHQ-9 Depression Total Score: 1 09/29/19 22 10:03 AM SCRIBING MACHINE OPERATOR documented as of this encounter Care Teams Systems Development Consultant Relationship Specialty Start Date End Date Soledad Lucas MD [address] [place] [id number] PCP - General INTERNAL MEDICINE 09/29/21 documented as of this encounter
--- OUTSIDE RECORDS SUMMARY | 2024-08-03 03:27 | XMS_ITS | Encounter Summary ---
Author Organization [facility] Address [address] [place] [address]. [place], [place] [address] [place] [address] Care Team Providers Care Customer Greeter Name Role Phone Soledad Lucas MD Primary Care Provider [phone] Reason for Visit * Reason Onset Date Comments Follow Up Call 10/28/2021 Encounter Details Date Type Department Care Team (Late st Contact Info) Description 10/28/2021 Telephone [facility] Medical [facility] Multispecialty Care - [place] [address] [address] [place] [address] Soledad Lucas MD [address] [place] [address] [address] [place] [address] Follow Up Call Social History [...] Progress Notes * Soledad Lucas MD - 10/28/2021 10:03 AM CDT Patient called for an update on his Stress test results. Made patient aware of Normal stress test. Patient encouraged to take all his medications as directed. His swollen lips from lisinopril angioedema has resolved. All questions answered. Soledad Lucas MD Internal Medicine [facility], [facility]. documented in this encounter Plan of Treatment Upcoming Encounters Date Type Department Care Team (Late st Contact Info) Description 08/19/2024 9:00 AM BELL SPINNER SOUSAPHONES [facility] [place] [facility] [place] [address] [address] [place] [address] Soledad Lucas MD [address] [address] 12/16/2024 10:40 AM CDT [facility] [address] [facility] [address] [place] [address] Ramsey Oakley MD [address] [facility] [address] [place] [address] documented as of this encounter Visit Diagnoses Not on filedocumented in this encounter Additional Health Concerns Assessment Noted Time PHQ-9 Depression Total Score: 1 09/29/19 10:03 AM BELL SPINNER SOUSAPHONES documented as of this encounter Care Teams Customer Greeter Relationship Specialty [place] [address] [place] [address] PCP - General INTERNAL MEDICINE 09/29/21 documented as of this encounter
--- OUTSIDE RECORDS SUMMARY | 2024-08-03 03:27 | XMS_ITS | Encounter Summary ---
Author Organization [facility] Address [address] [place] [address]. [place], [place] [address] [place] [address] Care Team Providers Care Bead Forming Machine Operator Name Role Phone Soledad Lucas MD Primary Care Provider [phone] Reason for Referral * Procedure (Routine) - Closed Specialty Diagnoses / Procedures Referred By Contac t Referred To Contact Diagnoses Mild intermittent asthma without complication (HHS/HCC) Procedures Complete PFT (pre/post [place], Lung Vol, Diff Capacity) (78401, 30457, 48533, 48199) Soledad Lucas MD 1188 [place] [address] Phone: tel: fax: Referral ID Status Reason Start Date Expiration Date Visits Re quested Visits Authorized [id number] Closed 11/01/2021 12/02/2022 1 1 Reason for Visit * Procedure (Routine) - Closed Specialty Diagnoses / Procedures Referred By Prasanth santillan Referred To Contact Diagnoses Mild intermittent asthma without complication (HHS/HCC) Procedures Complete PFT (pre/post [place], Lung Vol, Diff Capacity) (39624, 80433, 03387, 83647) Soledad Lucas MD [address] [address] Phone: tel: fax: Referral ID Status Reason Start Date Expiration Date Visits Re quested Visits Authorized [id number] Closed 11/01/2021 12/02/2022 1 1 Encounter Details Date Type Department Care Team (Latest Contact Info) Description 11/09/2021 8:51 AM CDT - 11/09/2021 11:59 PM CDT Hospital Encounter [facility] [place] [address] Soledad Lucas MD 1184 [facility] 157 [place] [address] Discharge Disposition: Home or Self Care (Routine [...] as needed for Wheezing. 18 g 5 11/01/2021 2 aspirin 81 MG chewable tabletIndications:Le ft-sided [...] tablet by mouth daily. 90 tablet 1 11/01/2021 2 metFORMIN (GLUCOPHAGE) 500 MG tabletIndications:Pr ediabetes Take 1 tablet (500 mg total) by mouth daily with breakfast. 60 tablet 3 09/30/2021 2 vitamin D2, ergocalciferol, 01933 UNITS capsuleIndications:V itamin D deficiency Take 1 capsule (50,000 Units total) by mouth weekly. 12 capsule 1 09/29/2021 3 documented as of this encounter Plan of Treatment Upcoming Encounters Date Type Department Care Team (Late st Contact Info) Description 08/19/2024 9:00 AM MAINTENANCE CARPENTER [facility] [place] [address] [address] [place] [address] Soledad Lucas MD [address] [place] [address] 157 [place] [address] 12/16/2024 10:40 AM CDT Office Visit [facility] Multispecialty Care - [facility] 3 [facility] [address] [place] [phone] Ramsey Oakley MD 3 [facility] [address] [place] [address] documented as of this encounter Procedures Procedure Name Priority Date/Time Associated Diagnosis Comments PULMONARY FUNCTION TEST Routine 11/09/2021 12:00 AM CDT Mild intermittent asthma without complication (HHS/HCC) documented in this encounter Results * Complete PFT (pre/post [place], Lung Vol, Diff Capacity) (73682, 03509, 83245, 10906) (11/09/2021 12:00 AM CDT) 11/09/2021 Narrative ESCRIPTION [...] within normal limits. D: ??11/17/2021 02:14 PM #[id number] T: ??11/17/2021 04:46 PM /NTS Procedure Note [...] limits. 4. Unadjusted DLCO within normal limits. #[id number] /NTS Soledad Lucas MD PFT ORDERABLES Edited Result - Final ESCRIPTION documented in this encounter Visit Diagnoses Diagnosis Mild intermittent asthma without complication (HHS/HCC) Unspecified asthma documented in this encounter Administered Medications Inactive Administered Medications - up to 3 most recent administrations Medication Order MAR Action Action Date Dose Rate Site albuterol sulfate HFA 108 (90 Base) MCG/ACT inhaler 2 puff 2 puff, Inhalation, Once, 1 dose, On Mon11/09/21 at 0900 Given 11/09/2021 9:14 AM CDT 2 puffs documented in this encounter Additional Health Concerns Assessment Noted Time PHQ-9 Depression Total Score: 1 09/29/19 22 10:03 AM MAINTENANCE CARPENTER documented as of this encounter Care Teams Bead Forming Machine Operator Relationship Specialty Start Date End Date Soledad Lucas MD 1188 [facility] [address] [place] [address] PCP - General INTERNAL MEDICINE 09/29/21 documented as of this encounter
--- OUTSIDE RECORDS SUMMARY | 2024-08-03 03:27 | XMS_ITS | Encounter Summary ---
Author Organization [facility] Address [address] [place] [address]. [place], [place] [address] [place] [address] Care Team Providers Care Manager Contact Name Role Phone Soledad Lucas MD Primary Care Provider [phone] Encounter Details Date Type Department Care Team (Latest Contact Info) Description 12/08/2021 8:42 PM CDT - 12/08/2021 11:59 PM CDT Hospital Encounter [facility] [address] [place] [address] Soledad Lucas MD [address] [address] Discharge Disposition: Home or Self [...] tablet 3 09/30/2021 2 vitamin D2, ergocalciferol, 19786 UNITS capsuleIndications:V itamin D deficiency Take 1 capsule (50,000 Units total) by mouth weekly. 12 capsule 1 09/29/2021 3 documented as of this encounter Plan of Treatment Upcoming Encounters Date Type Department Care Team (Late st Contact Info) Description 08/19/2024 9:00 AM DIESEL ELECTRICIAN Office Visit [facility] Multispecialty Care - [place] [address] [address] [place] [address] Soledad Lucas MD [address] [place] [address] 12/16/2024 10:40 AM CDT Office Visit [facility] Multispecialty Care - [facility] 3 [facility] [address] [place] [address] Ramsey Oakley MD 3 [facility] [address] [place] [address] documented as of this encounter Procedures Procedure Name Priority Date/Time Associated Diagnosis Comments CULTURE, ROUTINE W/ GRAM STAIN TIMED 12/08/2021 8:44 PM CDT HC CRYSTAL ID LIGHT MICRO Routine 12/08/2021 8:[address] CDT HC CELL CT BODY FLUID W/DIFF Routine 12/08/2021 8:44 PM CDT documented in this encounter Results * CULTURE, ROUTINE W/ GRAM STAIN (12/08/2021 8:44 PM CDT) SPEC DESCRIPTION SITE: LEFT KNEE,FLUID 12/08/2021 9:16 PM CDT [facility] SPECIAL REQUESTS NO SPECIAL REQUEST 12/08/2021 9:16 PM CDT [facility] GRAM STAIN RESULT NO NEUTROPHILS OR ORGANISMS SEEN 12/09/2021 8:04 AM CDT [facility] CULTURE RESULT NO GROWTH 5 DAYS 12/14/2021 10:12 AM CDT [facility] SPECIMEN FROM UNSPECIFIED BODY SITE / Unknown 12/08/2021 8:44 PM CDT 12/08/2021 9:15 PM CDT Comment:LEFT KNEE,FLUID us Soledad Lucas MD MICROBIOLOGY - GENERAL ORDERABLE S Final Result [facility] [address] [place] [address], [place] [phone] * CRYSTALS, BODY FLUID (12/08/2021 8:44 PM CDT) COMMENT PRELIMINARY REPORT: 12/08/2021 9:51 PM CDT [facility] Comment: NO CRYSTALS TO BE REVIEWED BY PATHOLOGIST CRYSTAL SOURCE KNEE,LEFT 12/08/2021 8:44 PM CDT [facility] COMMENT THIS CRYSTAL REPORT WAS INTERPRETED BY 12/09/2021 7:20 PM CDT [facility] Comment: DR ANABEL DEL CASTILLO THE FLUID IS EXAMINED MICROSCOPICALLY WITH AND WITHOUT POLARIZED LIGHT AND WITH AND WITHOUT FIRST ORDER RED AUTOMATED TELLER MANAGER UNDER 10X AND 40X MAGNIFICATIONS. ??THE FLUID CONTAINS FEW WHITE BLOOD CELLS AND FEW RED BLOOD CELLS. THERE ARE NO MONOSODIUM URATE (MSU OR GOUT) OR CALCIUM PYROPHOSPHATE DIHYDRATE (CPPD OR PSEUDOGOUT) CRYSTALS IDENTIFIED. STRUCTURE OF LEFT KNEE REGION / Unknown 12/08/2021 8:44 PM CDT Soledad Lucas MD BODY FLUIDS AND STOOLS ORDERABLE S Final Result [facility] [address] [place] [address], [place] [phone] * CELL COUNT W/ DIFF BODY FLUID (12/08/2021 8:44 PM CDT) SOURCE (FLUID) KNEE,LEFT 12/08/2021 9:39 PM CDT [facility] WBC (FLUID) 0.042 x10'3/uL 12/08/2021 9:39 PM CDT [facility] Comment:REFERENCE RANGE NOT ESTABLISHED RBC (FLUID) 0.004 x10'6/uL 12/08/2021 9:39 PM CDT [facility] Comment:REFERENCE RANGE NOT ESTABLISHED DIFFERENTIAL MANUAL DIFFERENTIAL PERFORMED ON CONCENTRATED CYTOSPIN 12/08/2021 8:44 PM CDT [facility] CELLS COUNTED 100 No COUNTED 12/08/2021 10:20 PM CDT [facility] SEGS (FLUID) 16 % 12/08/2021 10:20 PM CDT [facility] LYMPHS (FLUID) 82 % 12/08/2021 10:20 PM CDT [facility] OTHER MONONUCLEAR CELLS (FLD) 2 % 12/08/2021 10:20 PM CDT [facility] STRUCTURE OF LEFT KNEE REGION / Unknown 12/08/2021 8:44 PM CDT us Soledad Lucas MD BODY FLUIDS AND STOOLS ORDERABLE S Final Result [facility] [address] [place] [address], [phone] documented in this encounter Visit Diagnoses Not on filedocumented in this encounter Additional Health Concerns Assessment Noted Time PHQ-9 Depression Total Score: 1 09/29/19 10:03 AM DIESEL ELECTRICIAN documented as of this encounter Care Teams Manager Contact Relationship Specialty Start Date End Date Soledad Lucas MD [address] [address] PCP - General INTERNAL MEDICINE 09/29/21 documented as of this encounter
--- OUTSIDE RECORDS SUMMARY | 2024-08-03 03:27 | XMS_ITS | Encounter Summary ---
Author Organization [facility] Address [address] [place] [address]. [place], [place] [address] [place] [address] Care Team Providers Care Key Bed Installer Name Role Phone Soledad Lucas MD Primary Care Provider [phone] Encounter Details Date Type Department Care Team (Latest Contact Info) Description 10/27/2021 Travel Social History Tobacco Use Types Packs/Day [...] st Contact Info) Description 08/19/2024 9:00 AM SHORT PIECE HANDLER Office Visit [facility] Medical Group Multispecialty Care - [place] [address] [address] [place] [address] Soledad Lucas MD [address] [place] [address] [address] [place] [address] 12/16/2024 10:40 AM CDT Office Visit [facility] Medical [facility] Multispecialty Care - [facility] 3 [facility] [place] [address] Ramsey Oakley MD 3 [facility] [address] [place] [address] documented as of this encounter Visit Diagnoses Not on filedocumented in this encounter Additional Health Concerns Assessment Noted Time PHQ-9 Depression Total Score: 1 09/29/19 22 10:03 AM SHORT PIECE HANDLER documented as of this encounter Care Teams Key Bed Installer Relationship Specialty Start Date End Date Soledad Lucsa MD [address] [address] PCP - General INTERNAL MEDICINE 09/29/21 documented as of this encounter
--- OUTSIDE RECORDS SUMMARY | 2024-08-03 03:27 | XMS_ITS | Encounter Summary ---
Author Organization [facility] Address [address] [place] [address]. [place], [place] [address] [place] [address] Care Team Providers Care Band Sewer Name Role Phone Soledad Lucas MD Primary Care Provider [phone] Encounter Details Date Type Department Care Team (Latest Contact Info) Description 09/29/2021 - 09/29/2021 11:59 PM CYBER INCIDENT RESPONDER Hospital Encounter [facility] [address] [place] [address] Soledad Lucas MD [address] [address] Discharge Disposition: Home or Self [...] Coronavirus/COVID-19? No / Unsure 09/29/2021 8:43 AM CYBER INCIDENT RESPONDER documented as of this encounter Medications at Time of Discharge albuterol sulfate HFA 108 (90 Base) MCG/ACT inhalerIndications :Mild intermittent asthma without complication (HHS/HCC) Inhale 2 puffs into the lungs every 6 (six) hours as needed for Wheezing. 18 g 5 09/29/2021 2 cyclobenzaprine 10 MG tablet Take 10 mg by mouth 3 (three) times daily as needed for Muscle Spasms. 09/13/2021 2 lisinopril-hydroCH LOROthiazide 20-12.5 MG tabletIndications: Primary hypertension Take 1 tablet by mouth daily. 30 tablet 1 09/29/2021 2 meloxicam 15 MG tabletIndications: Acute pain of left knee Take 1 tablet (15 mg total) by mouth daily. 20 tablet 09/29/2021 2 vitamin D2, ergocalciferol, 56073 UNITS capsuleIndications :Vitamin D deficiency Take 1 capsule (50,000 Units total) by mouth weekly. 12 capsule 1 09/29/2021 3 documented as of this encounter Plan of Treatment Upcoming Encounters Date Type Department Care Team (Late st Contact Info) Description 08/19/2024 9:00 AM CYBER INCIDENT RESPONDER [facility] [place] [address] [address] [place] [address] Soledad Lucas MD [address] [place] [address] [address] [place] [address] 12/16/2024 10:40 AM CDT [facility] [address] [facility] [place] [phone] Ramsey Oakley MD 3 [facility] [address] [place] [address] documented as of this encounter Visit Diagnoses Not on filedocumented in this encounter Additional Health Concerns Assessment Noted Time PHQ-9 Depression Total Score: 1 09/29/19 22 10:03 AM CYBER INCIDENT RESPONDER documented as of this encounter Care Teams Band Sewer Relationship Specialty Start Date End Date Soledad Lucas MD [address] [address] PCP - General INTERNAL MEDICINE 09/29/21 documented as of this encounter
--- OUTSIDE RECORDS SUMMARY | 2024-08-03 03:27 | XMS_ITS | Encounter Summary ---
Author Organization [facility] Address [address] [place] [address]. [address] [address] Care Team Providers Care Spar Machine Operator Helper Name Role Phone Soledad Lucas MD Primary Care Provider [phone] Reason for Visit * Reason Onset Date Comments Question 10/01/2021 Encounter Details Date Type Department Care Team (Late st Contact Info) Description 10/01/2021 Telephone [facility] Medical Group Multispecialty Care - [address] [place] [address] Soledad Lucas MD [address] [place] [address] 157 [place] [address] Question Social History Tobacco Use [...] Coronavirus/COVID-19? No / Unsure 09/29/2021 8:43 AM DISTRICT COMMERCIAL SUPERINTENDENT documented as of this encounter Progress Notes * Soledad Lucas MD - 10/01/2021 2:04 PM CST I called patient. All questions answered. RICT COMMERCIAL SUPERINTENDENT * Stewart Lemus - 10/01/2021 1:18 PM CST Pt called and had question about his visit. Please call patient when you get a chance. RICT COMMERCIAL SUPERINTENDENT documented in this encounter Plan of Treatment Upcoming Encounters Date Type Department Care Team (Late st Contact Info) Description 08/19/2024 9:00 AM DISTRICT COMMERCIAL SUPERINTENDENT Office Visit [facility] Multispecialty Care - [place] [address] [address] [place] [address] [place] [address] [place] [address] 12/16/2024 10:40 AM CDT Office Visit [facility] Multispecialty [facility] 3 [facility] [place] [address] Ramsey Oakley MD 3 [facility] [address] [place] [address] documented as of this encounter Visit Diagnoses Not on filedocumented in this encounter Additional Health Concerns Assessment Noted Time PHQ-9 Depression Total Score: 1 09/29/19 10:03 AM DISTRICT COMMERCIAL SUPERINTENDENT documented as of this encounter Care Teams Spar Machine Operator Helper Relationship Specialty [place] [address] [place] [address] PCP - General INTERNAL MEDICINE 09/29/21 documented as of this encounter
--- OUTSIDE RECORDS SUMMARY | 2024-08-03 03:27 | XMS_ITS | Encounter Summary ---
Author Organization [facility] Address [address] [place] [address]. [place], [place] [address] [place] [address] Care Team Providers Care Software Quality Analyst Name Role Phone Soledad Lucas MD Primary Care Provider [phone] Encounter Details Date Type Department Care Team (Latest Contact Info) Description 12/08/2021 Travel Social History Tobacco Use Types Packs/Day [...] st Contact Info) Description 08/19/2024 9:00 AM TOOL DESIGN DRAFTSPERSON Office Visit [facility] Medical Group Multispecialty Care - [place] [address] [address] [place] [address] Soledad Lucas MD [address] [place] [address] [address] [place] [address] 12/16/2024 10:40 AM CDT Office Visit [facility] Medical [facility] Multispecialty Care - [facility] 3 [facility] [place] [address] Ramsey Oakley MD 3 [facility] [address] [place] [address] documented as of this encounter Visit Diagnoses Not on filedocumented in this encounter Additional Health Concerns Assessment Noted Time PHQ-9 Depression Total Score: 1 09/29/19 22 10:03 AM TOOL DESIGN DRAFTSPERSON documented as of this encounter Care Teams Software Quality Analyst Relationship Specialty Start Date End Date Soledad Lucas MD [address] [address] PCP - General INTERNAL MEDICINE 09/29/21 documented as of this encounter
--- OUTSIDE RECORDS SUMMARY | 2024-08-03 03:28 | XMS_ITS | Encounter Summary ---
Author Organization [facility] Address [address] [place] [address]. [place], [place] [address] [place] [address] Care Team Providers Care Completion Engineer Name Role Phone Md, Generic Conversion Primary Care Provider Unavailable Md, Generic Conversion Primary Care Provider Unavailable Md, Generic Conversion Primary Care Provider Unavailable Encounter Details Date Type Department Care Team (Late Contact Info) Description 08/17/2008 Emergency [facility] [place] [address] Chris Linares MD [address] [place] [address] Social History Tobacco Use Types Packs/Day Years Used Date Smoking Tobacco: Never Assessed Sex and Gender Information Value Date Recorded Sex Assigned at Not on file Legal Sex Male 8:04 PM CDT Gender Identity Not on file Sexual Orientation Not on file documented as of this encounter Plan of Treatment Upcoming Encounters Date Type Department Care Team (Late st Contact Info) Description 08/19/2024 9:00 AM HEDGE FUND PRINCIPAL Office Visit [facility] Medical [facility] Multispecialty [facility] - [place] [address] [address] [place] [address] Soledad Lucas MD [address] [address] 12/16/2024 10:40 AM CDT Office Visit [facility] Medical Group Multispecialty Care - [facility] 3 [facility] [address] [place] [phone] Ramsey Oakley MD 3 [facility] [address] [place] [address] documented as of this encounter Visit Diagnoses Not on filedocumented in this encounter Care Teams Completion Engineer Relationship Specialty Start Date End Date Md Generic Conversion, PCP - General 02/15/12 Md Generic Conversion, PCP - General 10/21/11 Md Generic Conversion, PCP - General 08/04/10 documented as of this encounter
--- OUTSIDE RECORDS SUMMARY | 2024-08-03 03:28 | XMS_ITS | Encounter Summary ---
Author Organization [facility] Address [address] [place] [address]. [place], [place] [address] [place] [address] Care Team Providers Care Performance Analyst Name Role Phone Md, Generic Conversion Primary Care Provider Unavailable , Generic Conversion Primary Care Provider Unavailable , Generic Conversion Primary Care Provider Unavailable Encounter Details Date Type Department Care Team (Late st Contact Info) Description 08/02/2008 Emergency [facility] [place] [address] Lore Pressley MD [address] [place] [id number] Social History Tobacco Use Types Packs/Day Years [...] st Contact Info) Description 08/19/2024 9:00 AM TRANSPORTATION ENGINEERING TECHNICIAN Office Visit [facility] Medical Group Multispecialty Care - [place] [address] [address] [place] [address] Soledad Lucas MD [address] [place] [address] [address] [place] [address] 12/16/2024 10:40 AM CDT Office Visit [facility] Medical Group Multispecialty Care - [facility] 3 [facility] [place] [address] Ramsey Oakley MD 3 [facility] [address] [place] [address] documented as of this encounter Visit Diagnoses Not on filedocumented in this encounter Care Teams Performance Analyst Relationship Specialty Start Date End Date Md Generic Conversion, PCP - General 02/15/12 Md Generic Conversion, PCP - General 10/21/11 Md Generic Conversion, PCP - General 08/04/10 documented as of this encounter
--- OUTSIDE RECORDS SUMMARY | 2024-08-03 03:28 | XMS_ITS | Encounter Summary ---
Author Organization [facility] Address [address] [place] [address]. [place], [place] [id number] [place] [address] Care Team Providers Care Tax Audit Manager Name Role Phone Md, Generic Conversion Primary Care Provider Unavailable , Generic Conversion Primary Care Provider Unavailable , Generic Conversion Primary Care Provider Unavailable Encounter Details Date Type Department Care Team (Late st Contact Info) Description 08/04/2010 Emergency [facility] [place] [address] Michi Kay MD [address] [place] [address] Social History Tobacco Use Types Packs/Day Years [...] st Contact Info) Description 08/19/2024 9:00 AM HYDROLOGIC ENGINEER Office Visit [facility] Multispecialty Care - [place] [address] [address] [address] [place] [address] Soledad Lucas MD [address] [place] [address] [address] [place] [address] 12/16/2024 10:40 AM CDT Office Visit [facility] Multispecialty Care - [facility] [address] [facility] [place] [address] Ramsey Oakley MD [address] [facility] [address] [place] [address] documented as of this encounter Visit Diagnoses Diagnosis Bronchitis Bronchitis, not specified as acute or chronic documented in this encounter Care Teams Tax Audit Manager Relationship Specialty Start Date End Date Md Generic Conversion, PCP - General 02/15/12 Md Generic Conversion, PCP - General 10/21/11 Md Generic Conversion, PCP - General 08/04/10 documented as of this encounter
--- OUTSIDE RECORDS SUMMARY | 2024-08-03 03:28 | XMS_ITS | Encounter Summary ---
Author Organization [facility] Address [address] [place] [address]. [place], [place] [phone] [place] [address] Care Team Providers Care Can Worker Name Role Phone Md, Generic Conversion Primary Care Provider Unavailable , Generic Conversion Primary Care Provider Unavailable Md, Generic Conversion Primary Care Provider Unavailable Encounter Details Date Type Department Care Team (Late st Contact Info) Description 07/29/2008 Emergency [facility] [place] [address] Stepan Leon MD [address] [place] [address] Social History Tobacco Use Types Packs/Day Years [...] st Contact Info) Description 08/19/2024 9:00 AM ORIENTAL RUG STRETCHER Office Visit [facility] Multispecialty Care - [place] [address] [address] [address] [place] [address] Soledad Lucas MD [address] [place] [address] 157 [place] [address] 12/16/2024 10:40 AM CDT Office Visit [facility] Mult[facility]pecialty Care - [facility] [address] [facility] [address] [place] [address] Ramsey Oakley MD [address] [facility] [address] [place] [address] documented as of this encounter Visit Diagnoses Not on filedocumented in this encounter Care Teams Can Worker Relationship Specialty Start Date End Date Md Generic Conversion, PCP - General 02/15/12 Md Generic Conversion, PCP - General 10/21/11 Md Generic Conversion, PCP - General 08/04/10 documented as of this encounter
--- OUTSIDE RECORDS SUMMARY | 2024-08-03 03:28 | XMS_ITS | Encounter Summary ---
Author Organization [facility] Address [address] [place] [address]. [place], [place] [address] [place] [address] Care Team Providers Care Improvement Engineer Name Role Phone Md, Generic Crescencio STAPLETON Primary Care Provider Unavailable Encounter Details Date Type Department Care Team (Latest Contact Info) Description 05/04/2012 Abstract [facility] Social History Tobacco Use Types Packs/Day [...] st Contact Info) Description 08/19/2024 9:00 AM BOOKKEEPING MACHINE MECHANIC Office Visit [facility] Multispecialty Care - [place] [address] [address] [address] [place] [address] Soledad Lucas MD [address] [place] [address] 12/16/2024 10:40 AM CDT Office Visit [facility] Mult[facility]pecialty Care - [facility] [address] [facility], [address] [place] [address] Ramsey Oakley MD 3 [facility] [address] [place] [address] documented as of this encounter Visit Diagnoses Not on filedocumented in this encounter Care Teams Improvement Engineer Relationship Specialty Start Date End Date Danica Stapleton Conversion, PCP - General 02/15/12 documented as of this encounter
--- OUTSIDE RECORDS SUMMARY | 2024-08-03 03:28 | XMS_ITS | Encounter Summary ---
Author Organization [facility] Address [address] [place] [address]. [place], [place] [address] [place] [address] Care Team Providers Care Financial Systems Administrator Name Role Phone Soledad Lucas MD Primary Care Provider [phone] Reason for Visit * Reason Comments Colonoscopy Report (SCAN) Encounter Details Date Type Department Care Team ([facility] Contact Info) Description 07/20/2021 Scan HEALTH INFO SRVCS Scanned, Documents Colonoscopy Report (SCAN) Social History Tobacco Use Types Packs/Day Years Used Date Smoking Tobacco: Never Assessed PHQ-2 Answer Date Recorded PHQ-2 Score - [...] Upcoming Encounters Date Type Department Care Team ([facility] Contact Info) Description 08/19/2024 9:00 AM 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 [address] [place] [address] documented as of this encounter Procedures Procedure Name Priority Date/Time Associated Diagnosis Comments COLONOSCOPY GENERIC (SCAN ORDER) 07/20/2021 documented in this encounter Results * COLONOSCOPY GENERIC (07/20/2021) 07/20/2021 Narrative 07/20/2021 Ordered by an unspecified provider. us Documents Scanned SCANNING Final Result documented in this encounter Visit Diagnoses Not on filedocumented in this encounter Care Teams Financial Systems Administrator Relationship Specialty Start Date End Date Soledad Lucas MD [address] [facility] [address] [place] [address] PCP - General INTERNAL MEDICINE 09/29/21 documented as of this encounter
--- OUTSIDE RECORDS SUMMARY | 2024-08-03 03:28 | XMS_ITS | Encounter Summary ---
Author Organization [facility] Address [address] [place] [address]. [place], [place] [address] [place] [address] Care Team Providers Care Steam Room Attendant Name Role Phone Danica Fish MD Primary Care Provider Unavailable Encounter Details Date Type Department Care Team (Late st Contact Info) Description 04/26/2012 Abstract [facility] Medical Group Multispecialty Care - [address], [address] [place] [id number] Stepan Roldan MD [facility] [address] [place] [address] Social History Tobacco Use Types Packs/Day Years Used Date Smoking Tobacco: Never Assessed Sex and Gender Information Value Date Recorded Sex Assigned at Not on file Legal Sex Male 8:04 PM CDT Gender Identity Not on file Sexual Orientation Not on file documented as of this encounter Last Filed Vital Signs Vital Sign Reading Time Taken Comments Blood Pressure - - Pulse - - Temperature - - Respiratory Rate - - Oxygen Saturation - - Inhaled Oxygen Concentration - - Weight 113.4 kg (250 lb) 04/26/2012 9:50 AM CDT Height 185.4 cm (6' 1 ) 04/26/2012 9:50 AM CDT Body Mass Index 32.98 04/26/2012 9:50 AM CDT documented in this encounter Progress Notes * Stepan Roldan MD - 04/26/2012 9:20 AM CDT History of Present Illness He is now 10 weeks postop right knee arthroscopy, lateral meniscectomy, and removal of 2 loose Bodies. He Required a, separate incision laterally. He had bare bone on the femoral and tibial surfaces InThe lateral Compartmentt. Most OF the lateral meniscus had been previously resected. The small remaining part of the meniscus was mostly removed. 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 They are improving overall. He still has some sharppain. He points anteriorly with certain movements. The usually cannot anticipate that he is much better than he was preoperatively at this point once a while. It will awaken him. He does use a rare Vicodin for pain. The knee stays swollen. Alarge part of the time, but she did see a moderate improvement steroid injection 6 weeks ago. He is walking approximately 40 minutes a day 3-4 times a week. He occasionally rides on a bicycle for 15-20 minutes at a time. Allergies 1. No Known Drug Allergies Vitals Signs [Data Includes: Last 1 Day] [id number] 09:50AM BMI Calculated: 33.13 BSA Calculated: 2.36 Height: 6 ft 1 in Weight: 250 lb Physical Exam He walks without a noticeable limp. There is a moderate effusion in the right knee, but it is not tense. Has significant tenderness to palpation over the lateral joint line. Valgus stress. He does produce pain. motion is 0-90deg flexion. There is minimal crepitation with Motion. Assessment 1. Joint Pain, Localized In The Knee 719.46 2. Localized Primary Osteoarthritis Of The Right Knee 715.16 3. Loose Body In The Knee 717.6 4. 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 Advil TABS; Status: DISCONTINUED 2. TraMADol HCl 50 MG Oral Tablet; Status: DISCONTINUED 3. Tylenol TABS; Status: DISCONTINUED A new prescription for Vicodin, #30, called in. He was also prescribed Mobic 15 mg daily, #20 as initial treatment for right knee osteoarthritis. Return in 3 weeks. May consider injection at that time Signatures Electronically signed by : Stepan Roldan M.D.; Apr 26 2012 12:41PM (Author) AL WORKER documented in this encounter Plan of Treatment Upcoming Encounters Date Type Department Care Team (Late st Contact Info) Description 08/19/2024 9:00 AM SOCIAL WORKER Office Visit [facility] Medical [facility] Multispecialty Care - [address] [place] [address] Soledad Lucas MD [address] [facility] [address] [place] [address] 12/16/2024 10:40 AM CDT Office Visit [facility] Multispecialty [facility] [address] [facility] [place] [phone] Ramsey Oakley MD [facility] [address] [place] [address] documented as of this encounter Visit Diagnoses Not on filedocumented in this encounter Care Teams Steam Room Attendant Relationship Specialty Start Date End Date Danica Fish MD PCP - General 02/15/12 documented as of this encounter
--- OUTSIDE RECORDS SUMMARY | 2024-08-03 03:28 | XMS_ITS | Encounter Summary ---
Author Organization [facility] Address [address] [place] [address]. [place], [place] [address] [place] [address] Care Team Providers Care Rubber Compounder Name Role Phone Md, Generic Conversion Primary Care Provider Unavailable , Generic Conversion Primary Care Provider Unavailable Encounter Details Date Type Department Care Team (Late st Contact Info) Description 10/21/2011 Abstract [facility] [address] [place] [address] Jennifer Bustillos, STEAM BONE PRESS TENDER [address] [facility] [address] [place] [address] Social History Tobacco Use Types Packs/Day Years [...] st Contact Info) Description 08/19/2024 9:00 AM 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 Office Visit [facility] Multispecialty [facility] - [place] [address] [address] [address] [place] [address] Soledad Lucas MD [address] [place] [address] [address] [place] [address] 12/16/2024 10:40 AM CDT Office Visit [facility] Medical [facility] Multispecialty [facility] - [address] [place] [address] Ramsey Oakley MD [address] [facility] [address] [place] [address] documented as of this encounter Visit Diagnoses Diagnosis Injury, other and unspecified, knee, leg, ankle, and foot documented in this encounter Care Teams Rubber Compounder Relationship Specialty Start Date End Date Md Generic Conversion, PCP - General 02/15/12 Md Generic Conversion, PCP - General 10/21/11 documented as of this encounter
--- OUTSIDE RECORDS SUMMARY | 2024-08-03 03:28 | XMS_ITS | Encounter Summary ---
Author Organization [facility] Address [address] [place] [address] [address] Care Team Providers Care Director Of Maintenance Name Role Phone Soledad Lucas MD Primary Care Provider [phone] Reason for Referral * Imaging (Routine) - Closed Specialty Diagnoses / Procedures Referred By Prasanth santillan Referred To Contact RADIOLOGY Diagnoses Acute pain of left knee Procedures XR KNEE LT 3V Soledad Lucas MD [address] [address] Phone: tel: fax: Referral ID Status Reason Start Date Expiration Date Visits Re quested Visits Authorized [id number] Closed 09/29/2021 10/27/2022 1 1 S SETTER * Consultation/Treatment (Routine) - Closed Specialty Diagnoses / Procedures Referred By Prasanth santillan Referred To Contact ORTHOPAEDICS Diagnoses Acute pain of left knee Soledad Lucas MD [address] [address] Phone: tel: fax: Sidney Ruff MD [address] [place] [address] Phone: tel: fax: Referral ID Status Reason Start Date Expiration Date V isits Requested Visits Authorized [id number] Closed Specialty Services 09/27/2021 03/26/2022 6 6 S SETTER Reason for Visit * Reason Comments New Patient Pt is here to establ [facility]. He is complaining of left side pain. He would like a referral for Ortho as well for his knees. He is compalining of his left knee. Encounter Details Date Type Department Care Team (Latest Contact Info) Description 09/29/2021 9:20 AM PRESS SETTER Office Visit [facility] - [place] [address] [address] [place] [address] Soledad Lucas MD 118[address] [facility] [address] [place] [address] New Patient (Pt is here to establish care. He is complaining of left side pain. He would like a referral for Ortho as well for his knees. He is compalining of his left knee.) Social History Tobacco Use Types Packs/Day Years [...] Coronavirus/COVID-19? No / Unsure 09/29/2021 8:43 AM PRESS SETTER documented as of this encounter Last Filed Vital Signs Vital Sign Reading Time Taken Comments Blood Pressure 178/95 09/29/2021 10:03 AM PRESS SETTER Pulse 74 09/29/2021 9:15 AM PRESS SETTER Temperature 36.8 ??C (98.3 ??F) 09/29/2021 9:15 AM CS T Respiratory Rate 18 09/29/2021 9:15 AM PRESS SETTER Oxygen Saturation 99% 09/29/2021 9:15 AM PRESS SETTER Inhaled Oxygen Concentration - - Weight 101.2 kg (223 lb) 09/29/2021 9:15 AM PRESS SETTER Height 185.4 cm (6' 1 ) 09/29/2021 9:15 AM PRESS SETTER Body Mass Index 29.42 09/29/2021 9:15 AM PRESS SETTER documented in this encounter Patient Instructions * Patient Instructions* Soledad Lucas MD - 09/29/2021 9:20 AM PRESS SETTER Follow up in 4 weeks. Referral call You will receive a call from our referral team ([phone]) regarding your referral. Insurance authorization Our corporate real estate specialist will contact your insurance company to get prior authorization if needed. Appointment If you have been referred to an [facility] hospital or [facility] provider, the hospital or clinic you have been referred to will call you to schedule your appointment. For those outside services of [facility], our referral expects will be in contact by phone or mail regarding your recently placed referral. If you have not heard anything from your referral in about 1 week, please call [phone]. Working with insurance companies can be cumbersome, but we are dedicated to processing your referral timely and efficiently. Please know you have a caring and competent team working on your behalf [facility] continuum of care as quickly as possible. Patient Education Patient Education Lowering Your Risk [...] apnea ?? Hormone problems - thyroid disease, Madeleine???s syndrome, acromegaly, hyperaldosteronism, and pheochromocytoma ?? Lupus [...] pharmacist about all of your drugs, including gebo-btb-pkhrmpf medicines, to see if they may cause [...] a heart attack. Call 911 in the [place] or [place]. The sooner treatment begins, [...] ?? Nosebleed Where can I learn more? [place] [employer] https://www.heart.org/en/health-topics/cfeb-slfmv-dhumpwtj/tflmokq-ngm-ayw-make- xb-pbivad-yaay-blood-pressure [place] [employer] https://www.heart.org/en/health-topics/pawt-uygwi-cgcpgehq/mqf-hube-mvvcz-pressu pc-da-h-silent-killer/sbyg-vnuo-elcx-fqzjupc-oon-ydoo-blood-pressure Centers for Disease Control and Prevention https://www.cdc.gov/bloodpressure/risk_factors.htm NHS Choices https://www.nhs.uk/conditions/qisz-pqqtr-azdyolps-hypertension/ Last Reviewed Date 2019-10-31 Consumer Information Use [...] or approved for treating a specific patient. [employer] and its affiliates disclaim any warranty or liability relating to this information or the use thereof. The use of this information is governed by the Terms of Use, available at https://www.[employer]/en/solutions/Tiempoicomp/about/aleks Copyright Copyright ?? 2020 [employer] and its affiliates and/or licensors. All rights reserved. S SETTER documented in this encounter Progress Notes * Soledad Lucas MD - 09/29/2021 9:20 AM CSTSummary: New patient notes Images from the original note were not included. ANNUAL PHYSICAL NOTES Encounter Date: 09/29/2021 Chief Complaint: 60-year-old male presents for New Patient (Pt is here to establish care. He is complaining of left side pain. He would like a referral for Ortho as well for his knees. He is compalining of his left knee.) HPI The patient is being seen for a health maintenance evaluation and to establish care. His main complaints at today's visit is that of left knee pain and left- sided chest discomfort. Patient is -[place]. Osteoarthritis right knee Status post right knee arthroscopy, lateral meniscectomy, and removal of 2 loose bodies in 2011. Since then, patient has not had any issues with her right knee. Denies any recent concerns for falls. Left knee pain At today's visit, patient's main concern is that of left knee pain. According to patient, this has been ongoing for several weeks. He has noticed mild fullness of the left knee joint. Rates pain as moderate. Pain is worse with climbing steps. Currently using naproxen which he recently was prescribed for left-sided costochondritis which seems to help some. Denies any recent stressors but notes unstable gait. Pain is mainly localized. Standing worsens pain. Patient wants to see an orthopedic surgeon. No recent trauma or falls. Left sided chest pain According to patient, he has had left-sided chest discomfort for the past 2 weeks. He did go to an urgent care and per patient report a chest x-ray was done with normal. No recent viral infections, cough that patient can recall. Patient has underlining history of hypertension. He tells me he has been taking his medications as prescribed. His last blood pressure during his previous PCP office visit was slightly elevated. Denies any history of cardiac stents or cardiac events. Non-smoker. Uses marijuana occasionally. Socially uses alcohol. Patient tells me applying pressure to the left side ofthe chest wall sometimes induces the pain. Leaning forwards helps with the pain. Stress induces thepain. He has since been using naproxen and Flexeril which he thinks helps some. Patient currently in the process of going through a divorce and under a lot of stress. No recent trauma. Hypertension Patient tells me he has been hypertensive for the past 10 years. He is currently on 10 mg daily of amlodipine. He endorses compliance to medications without any side effects. -G[place]adian. Currently complains about left-sided chest discomfort especially on applying pressure to the left side of chest wall and during stressful events. No prior history of cardiac events or stenting. He does not follow routinely with cardiology. Denies any concerns for shortness of breath with activity, palpitations, ankle swelling orthopnea. Asthma Patient tells me he has had mild asthma since childhood. He has no inhalers at the moment. Has not used inhalers in quite a while. Non-smoker. He smokes marijuana occasionally. Denies any concerns for chronic cough or shortness of breath with activity. No recent pulmonary function testing. Does notfollow routinely with pulmonary. Osteoarthritis multiple joints Patient tells me he thinks he has arthritis in both metacarpal joints as well as in the neck. Currently using naproxen to help with pain control. Previous provider(s): Dr Lei White Reason for new provider: wanted a new provider Annual physical:none Diet:regular Exercise: active Patient Active Problem List Diagnosis ??? 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 Primary osteoarthritis of right knee ??? Osteoarthritis of multiple joints ??? Primary hypertension ??? Overweight (BMI 25.0-29.9) ??? Mild intermittent asthma without complication General Health: good Dental Health: Sees dentist regularly Vision Health: No vision correction Hearing Health: No hearing problems Immunizations Needed: Influenza, Tdap, Shingrix and COVID Weight: Overweight Body mass index is 29.42 kg/m??. Physical Activity: Acitve lifestyle Prostate Cancer Screening: done Testicular Cancer Screening: None Colorectal Cancer Screening: UTD done 1 month ago Metabolic Screening: Patient needs to be screened today. HCV Screening: done PHQ-9 Screening Score: PHQ-9: Over the last two weeks, how often have you been bothered by any of the following problems? 09/29/2021 LITTLE INTEREST OR PLEASURE IN DOING THINGS 0-Not at All FEELING DOWN, DEPRESSSED,OR HOPELESS 1-Several Days PHQ2 DEPRESSION TOTAL SCORE 1 DEPRESSION SCREENING TOTAL SCORE 1 IF YOU CHECKED OFF ANY PROBLEMS Not difficult at all DELANO-7 (Generalized Anxiety Disorder) Screening DELANO-7 09/29/2021 Feeling nervous, anxious and on edge 0 [...] at all Smoking Status: History Smoking Status ??? Never Smoker Smokeless Tobacco ??? Never Used Comment: counsled by Dr Lucas Patient does not meet criteria for Low Dose CT screening Sleep Apnea Risk Factors: None Review of Systems Constitutional: Negative for chills, diaphoresis, fever, malaise/fatigue and weight loss. HENT: Negative. Eyes: Negative. Respiratory: Negative. Cardiovascular: Positive for chest pain. Negative for palpitations, orthopnea, claudication, leg swelling and PND. Gastrointestinal: Negative. Genitourinary: Negative. Musculoskeletal: Positive for joint pain (Left knee pain, bilateral metacarpal joint pain and mild posterior neck pain). Negative for back pain, falls, myalgias and neck pain. Neurological: Negative. Psychiatric/Behavioral: Negative. Past Medical History: Diagnosis Date ??? Arthritis ??? Hypertension Past Surgical History: Procedure Laterality Date ??? KNEE ARTHROSCOPY Right ??? KNEE SURGERY Right Unsure of exactly what they did to patella. Family History Problem Relation Name Age of Onset ??? Cancer Mother ??? Prostate Cancer Father ??? Cancer Sister ??? Diabetes Sister ??? Cancer Brother Social History Socioeconomic History ??? Marital status: Legally Spouse name: Not on file ??? Number of children: Not on file ??? Years of education: Not on file ??? Highest education level: Not on file Occupational History ??? Not on file Tobacco Use ??? Smoking status: Never Smoker ??? Smokeless tobacco: Never Used ??? Tobacco comment: counsled by Dr Lucas Vaping Use ??? Vaping Use: Never used Substance and Sexual Activity ??? Alcohol use: Yes Comment: Socially ??? Drug use: Yes Types: Marijuana ??? Sexual activity: Yes Other Topics Concern ??? Not on file Social History Narrative ??? Not on file Social Determinants of Health Financial Resource Strain: Not on file Food Insecurity: Not on file Transportation Needs: Not on file Physical Activity: Not on file Stress: Not on file Social Connections: Not on file Intimate Partner Violence: Not on file Immunization History Administered Date(s) Administered ??? PFIZER COVID-19 (ORIGINAL FORMULATION, PURPLE CAP), MRNA, LNP-S, PF, 30 MCG/0.3 ML DOSE 10/24/2020, 11/15/2020 Current Outpatient Medications Medication Sig Dispense Refill ??? albuterol sulfate [...] total) by mouth daily. 20 tablet 0 No current facility-administered medications for this visit. Current Outpatient Medications on File Prior to Visit Medication Sig ??? cyclobenzaprine 10 MG tablet Take 10 mg by mouth 3 (three) times daily as needed for Muscle Spasms. No current facility-administered medications on file prior to visit. No Known Allergies Objective: Filed Vitals: 09/29/21 0915 09/29/21 1003 BP: (!) 164/86 (!) 178/95 Pulse: 74 Resp: 18 Temp: 98.3 ??F (36.8 ??C) TempSrc: Temporal SpO2: 99% Weight: 101.2 kg (223 lb) Height: 6' 1 (1.854 m) Physical Exam Constitutional: General: He is not in acute distress. Appearance: He is not diaphoretic. HENT: Head: Normocephalic and atraumatic. Right Ear: External ear normal. Left Ear: External ear normal. Nose: Nose normal. Mouth/Throat: Pharynx: No oropharyngeal exudate. Eyes: General: No scleral icterus. Left eye: No discharge. Conjunctiva/sclera: Conjunctivae normal. Pupils: Pupils are equal, round, and reactive to light. Neck: Thyroid: No thyromegaly. Vascular: No JVD. Trachea: No tracheal deviation. Cardiovascular: Rate and Rhythm: Normal rate. Heart sounds: No murmur heard. No friction rub. No gallop. Comments: Mild tenderness on palpation of the left precordium. Heart sounds 1 and 2 with additional heart sounds. Pulmonary: Effort: Pulmonary effort is normal. No respiratory distress. Breath sounds: Normal breath sounds. No stridor. No wheezing or rales. Chest: Chest wall: No tenderness. Abdominal: General: Bowel sounds are normal. There is no distension. Palpations: Abdomen is soft. There is no mass. Tenderness: There is no abdominal tenderness. There is no guarding or rebound. Musculoskeletal: General: Swelling (Mild to moderate swelling of the left knee joint) and tenderness (Tenderness of the left knee joint) present. No deformity or signs of injury. Normal range of motion. Cervical back: Normal range of motion and neck supple. Right lower leg: No edema. Left lower leg: No edema. Lymphadenopathy: Cervical: No cervical adenopathy. Skin: General: Skin is warm. Coloration: Skin is not pale. Findings: No erythema or rash. Neurological: General: No focal deficit present. Mental Status: He is alert and oriented to person, place, and time. Cranial Nerves: No cranial nerve deficit. Motor: No abnormal muscle tone. Coordination: Coordination normal. Gait: Gait is intact. Deep Tendon Reflexes: Reflexes are normal and symmetric. Psychiatric: Mood and Affect: Mood and affect normal. Cognition and Memory: Memory normal. Judgment: Judgment normal. Assessment & Plan: Encounter Diagnose(s) ICD-10-CM ICD-9-CM SNOMED CT(R) 1. Annual physical exam Z00. V70.0 PATIENT ENCOUNTER STATUS CBC W/DIFF AUTOMATED COMPREHENSIVE METABOLIC PANEL TSH W/REFLEX LIPID PANEL VITAMIN D, 25 OH HEPATITIS C ANTIBODY URINALYSIS, AUTO, COMPLETE ALBUMIN URINE RANDOM HEMOGLOBIN, GLYCOSYLATED VENIPUNC ARM DRAW HEMOGLOBIN, GLYCOSYLATED HEPATITIS C ANTIBODY VITAMIN D, 25 OH LIPID PANEL TSH W/REFLEX COMPREHENSIVE METABOLIC PANEL CBC W/DIFF AUTOMATED 2. Encounter for medical examination to establish care Z00. V70.9 PATIENT ENCOUNTER STATUS CBC W/DIFF AUTOMATED COMPREHENSIVE METABOLIC PANEL TSH W/REFLEX LIPID PANEL VITAMIN D, 25 OH HEPATITIS C ANTIBODY URINALYSIS, AUTO, COMPLETE ALBUMIN URINE RANDOM HEMOGLOBIN, GLYCOSYLATED VENIPUNC ARM DRAW HEMOGLOBIN, GLYCOSYLATED HEPATITIS C ANTIBODY VITAMIN D, 25 OH LIPID PANEL TSH W/REFLEX COMPREHENSIVE METABOLIC PANEL CBC W/DIFF AUTOMATED 3. General medical exam Z00. V70.9 PATIENT ENCOUNTER STATUS CBC W/DIFF AUTOMATED COMPREHENSIVE METABOLIC PANEL TSH W/REFLEX LIPID PANEL VITAMIN D, 25 OH HEPATITIS C ANTIBODY URINALYSIS, AUTO, COMPLETE ALBUMIN URINE RANDOM HEMOGLOBIN, GLYCOSYLATED VENIPUNC ARM DRAW HEMOGLOBIN, GLYCOSYLATED HEPATITIS C ANTIBODY VITAMIN D, 25 OH LIPID PANEL TSH W/REFLEX COMPREHENSIVE METABOLIC PANEL CBC W/DIFF AUTOMATED 4. Screening for diabetes mellitus Z13.1 V77.1 PATIENT ENCOUNTER STATUS HEMOGLOBIN, GLYCOSYLATED HEMOGLOBIN, GLYCOSYLATED 5. Screening for hyperlipidemia Z13.220 V77.91 PATIENT ENCOUNTER STATUS LIPID PANEL LIPID PANEL 6. Screening for hypothyroidism Z13.29 V77.0 PATIENT ENCOUNTER STATUS TSH W/REFLEX TSH W/REFLEX 7. Encounter for hepatitis C screening test for low risk patient Z11.59 V73.89 PATIENT ENCOUNTER STATUS HEPATITIS C ANTIBODY HEPATITIS C ANTIBODY 8. Encounter for vitamin deficiency screening Z13.21 V77.99 PATIENT ENCOUNTER STATUS VITAMIN D, 25 OH VITAMIN D, 25 OH 9. Screening for prostate cancer Z12.5 V76.44 PATIENT ENCOUNTER STATUS PROSTATE SPECIFIC ANTIGEN,SCREENING PROSTATE SPECIFIC ANTIGEN,SCREENING 10. Screen for colon cancer Z12.11 V76.51 PATIENT ENCOUNTER STATUS 11. Body mass index (BMI) 29.0-29.9, adult Z68.29 V85.25 BODY MASS INDEX 25-29 - OVERWEIGHT CBC W/DIFF AUTOMATED CBC W/DIFF AUTOMATED 12. Hypercalcemia E83.52 275.42 HYPERCALCEMIA VITAMIN D, 25 OH VITAMIN D, 25 OH 13. Impaired fasting glucose R73.01 790.21 IMPAIRED FASTING GLYCEMIA HEMOGLOBIN, GLYCOSYLATED HEMOGLOBIN, GLYCOSYLATED 14. Left-sided chest pain R07.9 786.50 LEFT SIDED CHEST PAIN 13473 - EKG (In Clinic Complete tracing, interp & report) 15. Chronic pain of right knee M25.561 719.46 PAIN OF KNEE REGION G89.29 338.29 16. Primary osteoarthritis involving multiple joints M15.9 715.98 DEGENERATIVE JOINT DISEASE INVOLVING MULTIPLE JOINTS 17. Acute pain of left knee M25.562 719.46 PAIN OF KNEE REGION Ambulatory referral to Orthopedics (OTHER) XR KNEE LT 3V XR KNEE LT 3V meloxicam 15 MG tablet URIC ACID BLOOD URIC ACID BLOOD 18. Mild intermittent asthma without complication J45.20 493.90 MILD INTERMITTENT ASTHMA albuterol sulfate HFA 108 (90 Base) MCG/ACT inhaler 19. Primary hypertension I10 401.9 ESSENTIAL HYPERTENSION lisinopril- [facility]CH[facility]OR[facility]thiazide [facility]. Diagnoses and all orders for this visit: Annual physical exam - Patient past medical, surgical, family history and social history updated. Allergies, immunizations and medications updated. Also did discuss healthy lifestyle including exercising, dietary changes and safe sexual practices as well as safe habits common to patient age group including wearing seat belt when transporting in a vehicle and limiting alcohol and avoiding smoking/second hand smoking. Patient will set up [employer]. Patient will fax over any remaining outside records that would be relevant to care provided. Patient up-to-date with colonoscopy done 1 month ago. - CBC W/DIFF AUTOMATED; Future - COMPREHENSIVE METABOLIC PANEL; Future - TSH W/REFLEX; Future - LIPID PANEL; Future - VITAMIN D, 25 OH; Future - HEPATITIS C ANTIBODY; Future - URINALYSIS, AUTO, COMPLETE - ALBUMIN URINE RANDOM - HEMOGLOBIN, GLYCOSYLATED; Future - VENIPUNC ARM DRAW - HEMOGLOBIN, GLYCOSYLATED - HEPATITIS C ANTIBODY - VITAMIN D, 25 OH - LIPID PANEL - TSH W/REFLEX - COMPREHENSIVE METABOLIC PANEL - CBC W/DIFF AUTOMATED Encounter for medical examination to establish care - Patient past medical, surgical, family history and social history updated. Allergies, immunizations and medications updated. Also did discuss healthy lifestyle including exercising, dietary changes and safe sexual practices as well as safe habits common to patient age group including wearing seat belt when transporting in a vehicle and limiting alcohol and avoiding smoking/second hand smoking. Patient will set up [address] [employer]. Patient will fax over any remaining outside records that would be relevant to care provided. - CBC W/DIFF AUTOMATED; Future - COMPREHENSIVE METABOLIC PANEL; Future - TSH W/REFLEX; Future - LIPID PANEL; Future - VITAMIN D, 25 OH; Future - HEPATITIS C ANTIBODY; Future - URINALYSIS, AUTO, COMPLETE - ALBUMIN URINE RANDOM - HEMOGLOBIN, GLYCOSYLATED; Future - VENIPUNC ARM DRAW - HEMOGLOBIN, GLYCOSYLATED - HEPATITIS C ANTIBODY - VITAMIN D, 25 OH - LIPID PANEL - TSH W/REFLEX - COMPREHENSIVE METABOLIC PANEL - CBC W/DIFF AUTOMATED General medical exam - CBC W/DIFF AUTOMATED; Future - COMPREHENSIVE METABOLIC PANEL; Future - TSH W/REFLEX; Future - LIPID PANEL; Future - VITAMIN D, 25 OH; Future - HEPATITIS C ANTIBODY; Future - URINALYSIS, AUTO, COMPLETE - ALBUMIN URINE RANDOM - HEMOGLOBIN, GLYCOSYLATED; Future - VENIPUNC ARM DRAW - HEMOGLOBIN, GLYCOSYLATED - HEPATITIS C ANTIBODY - VITAMIN D, 25 OH - LIPID PANEL - TSH W/REFLEX - COMPREHENSIVE METABOLIC PANEL - CBC W/DIFF AUTOMATED Screening for diabetes mellitus - HEMOGLOBIN, GLYCOSYLATED; Future - HEMOGLOBIN, GLYCOSYLATED Screening for hyperlipidemia - LIPID PANEL; Future - LIPID PANEL Screening for hypothyroidism - TSH W/REFLEX; Future - TSH W/REFLEX Encounter for hepatitis C screening test for low risk patient - HEPATITIS C ANTIBODY; Future - HEPATITIS C ANTIBODY Encounter for vitamin deficiency screening - VITAMIN D, 25 OH; Future - VITAMIN D, 25 OH Screening for prostate cancer - PROSTATE SPECIFIC ANTIGEN,SCREENING; Future - PROSTATE SPECIFIC ANTIGEN,SCREENING Screen for colon cancer Body mass index (BMI) 29.0-29.9, adult - CBC W/DIFF AUTOMATED; Future - CBC W/DIFF AUTOMATED Hypercalcemia - VITAMIN D, 25 OH; Future - VITAMIN D, 25 OH Impaired fasting glucose - HEMOGLOBIN, GLYCOSYLATED; Future - HEMOGLOBIN, GLYCOSYLATED Left-sided chest pain - Left-sided chest discomfort mainly located in the anterior axillary line; likely costochondritis versus musculoskeletal pain versus acute coronary syndrome versus other - EKG with anteroseptal ischemic changes age-indeterminate with PACs. - Hypertension medications adjusted at today's visit; will await blood work; no active chest pain at the moment; I suspect poor control of pressure contributing this is likely costochondritis - 39606 - EKG (In Clinic Complete tracing, interp & report) Chronic pain of right knee - This post right knee arthroscopy done in 2011. Stable. No concerns at this time. Primary osteoarthritis involving multiple joints - Patient with arthritic findings in the MCP joints, cervical joints and knee joints. For now, patient will continue with anti-inflammatories. Manage as above and below. Acute pain of left knee - New with worsening symptoms. Left knee joint with effusion that is moderate. For now, getting an x-ray. Patient will follow up in 2 weeks at which time we will consider doing drainage of fluid fromleft knee versus cortisone shots - XR KNEE LT 3V; Future - XR KNEE LT 3V - meloxicam 15 MG tablet; Take 1 tablet (15 mg total) by mouth daily. - Ambulatory referral to Orthopedics (OTHER) - Check uric acid levels Mild intermittent asthma without complication - Stable for now. No recent pulmonary function testing. Non-smoker. - albuterol sulfate HFA 108 (90 Base) MCG/ACT inhaler; Inhale 2 puffs into the lungs every 6 (six) hours as needed for Wheezing. Primary hypertension - Chronic - Uncontrolled. DASH diet recommended. Patient encouraged to exercise at least 30 minutes daily for5 days of the week. Medication compliance encouraged - Change to lisinopril-hydroCHLOROthiazide 20-12.5 MG tablet; Take 1 tablet by mouth daily. - Discontinue amlodipine for now - Follow-up with home blood pressure readings I spent 20 minutes on his physical and 40 minutes today for EM reviewing the patient's medical record, obtaining history, performing an exam, ordering medications, tests, and/or procedures, documenting in the medical record, referring and/or communicating with other health care providers, counseling and educating the patient/family/caregiver, reviewing and communicating test results and coordination of care. LOGAN: This dictation was at least in part performed using [employer] speak and there may be some inherent flaws in this public utilities sales representative due to the nature of this program. MD Soledad GO MD Internal Medicine [facility], [facility]. S SETTER documented in this encounter Plan of Treatment Upcoming Encounters Date Type Department Care Team (Late st Contact Info) Description 08/19/2024 9:00 AM PRESS SETTER Office Visit [facility] [place] [address] [place] [address] [address] [place] [address] Soledad Lucas MD [address] [facility] [address] [place] [address] 12/16/2024 10:40 AM CDT Office Visit [facility] [address] [facility] [address] [place] [id number] Ramsey Oakley MD [address] [facility] [address] [place] [address] Scheduled Orders Name Type Priority Associated Diagnoses Orde r Schedule XR KNEE LT 3V Imaging Routine Acute pain of left knee Expected: 09/29/2021, Expires: 09/29/2022 Scheduled Referrals Name Type Priority Associated Diagnoses Orde r Schedule Ambulatory referral to Orthopedics (OTHER) Referral Routine Acute pain of left knee Ordered: 09/29/2021 documented as of this encounter Procedures Procedure Name Priority Date/Time Associated Diagnosis Comments URIC ACID BLOOD Routine 09/29/2021 10:21 AM PRESS SETTER Acute pain of left knee TSH W/REFLEX Routine 09/29/2021 10:05 AM PRESS SETTER Annual physical exam Encounter for medical examination to establish care General medical exam Screening for hypothyroidism HEMOGLOBIN, GLYCOSYLATED Routine 09/29/2021 10:05 AM PRESS SETTER Annual physical exam Encounter for medical examination to establish care General medical exam Screening for diabetes mellitus Impaired fasting glucose PROSTATE SPECIFIC ANTIGEN,SCREENING Routine 09/29/2021 10:05 AM PRESS SETTER Screening for prostate cancer COMPREHENSIVE METABOLIC PANEL Routine 09/29/2021 10:05 AM PRESS SETTER Annual physical exam Encounter for medical examination to establish care General medical exam LIPID PANEL Routine 09/29/2021 10:05 AM PRESS SETTER Annual physical exam Encounter for medical examination to establish care General medical exam Screening for hyperlipidemia HEPATITIS C ANTIBODY Routine 09/29/2021 10:05 AM PRESS SETTER Annual physical exam Encounter for medical examination to establish care General medical exam Encounter for hepatitis C screening test for low risk patient CBC W/DIFF AUTOMATED Routine 09/29/2021 10:05 AM PRESS SETTER Annual physical exam Encounter for medical examination to establish care General medical exam Body mass index (BMI) 29.0-29.9, adult VITAMIN D, 25 OH Routine 09/29/2021 10:0 5 AM PRESS SETTER Annual physical exam Encounter for medical examination to establish care General medical exam Encounter for vitamin deficiency screening Hypercalcemia ELECTROCARDIOGRAM, COMPLETE Routine 09/29/2021 9:56 AM PRESS SETTER Left-sided chest pain VENIPUNC ARM DRAW Routine 09/29/2021 9:2 1 AM PRESS SETTER Annual physical exam Encounter for medical examination to establish care General medical exam URINALYSIS, AUTO, COMPLETE Routine 09/29/2021 Annual physical exam Encounter for medical examination to establish care General medical exam ALBUMIN URINE RANDOM W/CREATININE Routine 09/29/2021 Annual physical exam Encounter for medical examination to establish care General medical exam documented in this encounter Results * URIC ACID BLOOD (09/29/2021 10:21 AM PRESS SETTER) URIC ACID 4.5 3.5 - 7.2 MG/DL 09/29/2021 5:[address] [facility] 09/29/2021 10:2 1 AM PRESS SETTER Soledad Lucas MD LABORATORY Final Result [facility] [address] [place] [address], [id number] * PROSTATE SPECIFIC ANTIGEN,SCREENING (09/29/2021 10:05 AM PRESS SETTER) PSA 3.66 <4.00 NG/ML 09/29/2021 5:18 PM PRESS SETTER [facility] Comment:Assay Method: Enzyme Immunoassay 09/29/2021 10:0 5 AM PRESS SETTER Soledad Lucas MD LABORATORY Final Result Performing Organization Address [facility]/ZIP Co de Phone Number [facility] [address] [place] [address], * (ABNORMAL) HEMOGLOBIN, GLYCOSYLATED (09/29/2021 10:05 AM PRESS SETTER) Pathologist [facility] HGB A1C 5.9(H) 3.80 - 5.60 % 09/29/2021 11:34 PM PRESS SETTER [facility] ESTIMATED AVG GLUCOSE 123(H) 74 - 106 MG/DL 09/29/2021 11:34 PM PRESS SETTER [facility] 09/29/2021 10:0 5 AM PRESS SETTER us Soledad Lucas MD LABORATORY Final Result Performing Organization Address City/[facility] Co de Phone Number [facility] [address] [place] [address], * HEPATITIS C ANTIBODY (09/29/2021 10:05 AM PRESS SETTER) HEPATITIS C AB NON-REACTI VE NON-REACT DESIREE 09/29/2021 6:57 PM PRESS SETTER [facility] Comment: ANTIBODIES TO HCV NOT DETECTED. DOES NOT EXCLUDE THE POSSIBILITY OF EXPOSURE TO HCV. 09/29/2021 10:0 5 AM PRESS SETTER us Soledad Lucas MD LABORATORY Final Result [facility] [address] [place] [address], [id number] * (ABNORMAL) VITAMIN D, 25 OH (09/29/2021 10:05 AM PRESS SETTER) VITAMIN D 25 HYDROXY TOTAL S/P/B 13.4(L) 20 - 50 NG/ML 09/29/2021 5:20 PM PRESS SETTER [facility] Comment: <10 ng/mL (Severe deficiency) 10 TO 19 ng/mL (Mild to Moderate deficiency) 20 TO 50 ng/mL (Optimum levels) 51 TO 80 ng/mL (Increased risk of hypercalciuria) >80 ng/mL (Toxicity possible) 09/29/2021 10:0 5 AM PRESS SETTER Soledad Lucas MD LABORATORY Final Result Performing Organization Address [facility] Co de Phone Number [facility] [address] [place] [address], * LIPID PANEL (09/29/2021 10:05 AM PRESS SETTER) [facility] CHOLESTEROL 139 <200 MG/DL 09/29/2021 5:20 PM PRESS SETTER [facility] TRIGLYCERIDES 38 <150 MG/DL 09/29/2021 5:20 PM [facility] HDL 71 >40 MG/DL 09/29/2021 5:20 PM PRESS SETTER [facility] LDL-C 60 <100 MG/DL 09/29/2021 5:20 PM PRESS SETTER [facility] VLDL CALCULATION 8 5 - 28 MG/DL 09/29/2021 5:20 PM PRESS SETTER [facility] CHOL/HDL RATIO 2.0 0.0 - 4.0 09/29/2021 5:20 PM [facility] LDL/HDL 0.8 0.41 - 2.13 09/29/2021 5:20 PM PRESS SETTER [facility] NON HDL CHOLESTEROL 68 <140 MG/DL 09/29/2021 5:20 PM PRESS SETTER [facility] 09/29/2021 10:0 5 AM PRESS SETTER Soledad Lucas MD LABORATORY Final Result Performing Organization Address City/[facility]/ZIP Co de Phone Number [facility] [address] [place] [address], [place] [phone] * TSH W/REFLEX (09/29/2021 10:05 AM PRESS SETTER) TSH 1.461 0.358 - 3.740 uIU/ML 09/29/2021 5:20 PM PRESS SETTER [facility] 09/29/2021 10:0 5 AM PRESS SETTER Soledad Lucas MD LABORATORY Final Result Performing Organization Address City/[facility]/ZIP Co de Phone Number [facility] [address] [place] [address], [place] [phone] * (ABNORMAL) COMPREHENSIVE METABOLIC PANEL (09/29/2021 10:05 AM PRESS SETTER) SODIUM S/P/B 139 136 - 145 MMOL/L 09/29/2021 5:20 PM PRESS SETTER [facility] POTASSIUM S/P/B 4.1 3.5 - 5.1 MMOL/L 09/29/2021 5:20 PM PRESS SETTER [facility] CHLORIDE S/P/B 104 98 - 107 MMOL/L 09/29/2021 5:20 PM [facility] CO2 26.4 21 - 32 MMOL/L 09/29/2021 5:20 PM PRESS SETTER [facility] GLUCOSE 106(H) 70 - 99 MG/DL 09/29/2021 5:20 PM [facility] BUN 13 6 - 24 MG/DL 09/29/2021 5:20 PM [facility] CREATININE S/P/B 0.83 0.70 - 1.30 MG/DL 09/29/2021 5:20 PM [facility] CALCIUM S/P/B 9.0 8.4 - 10.5 MG/DL 09/29/2021 5:20 PM [facility] BILIRUBIN TOTAL S/P/B 0.7 0.2 - 1.0 MG/DL 09/29/2021 5:20 PM [facility] ALKALINE PHOSPHATASE S/P/B 91 45 - 115 U/L 09/29/2021 5:20 PM [facility] AST 15 15 - 37 U/L 09/29/2021 5:20 PM [facility] ALT 19 16 - 63 U/L 09/29/2021 5:20 PM [facility] TOTAL PROTEIN S/P/B 7.5 6.4 - 8.2 G/DL 09/29/2021 5:20 PM [facility] ALBUMIN S/P/B 3.9 3.4 - 5.0 G/DL 09/29/2021 5:20 PM [facility] ANION GAP 8.6 5 - 15 MMOL/L 09/29/2021 5:20 PM [facility] Comment:REFERENCE RANGE NOT ESTABLISHED OSMOLALITY (CALC) 289 MOSM/KG 09/29/2021 5:20 PM [facility] Comment:REFERENCE RANGE NOT ESTABLISHED EGFR NON-AFR. AMER. >90 >90 ML/MIN/1 .73 M2 09/29/2021 5:20 PM [facility] EGFR AFR. AMER. >90 >90 ML/MIN/1 .73 M2 09/29/2021 5:20 PM [facility] GFR NOTES THE ESTIMATED GFR IS CALCULATED USING THE 2009 CKD-EPI EQUATION. THE FOLLOWING CATEGORIES FOR GRADING RENAL FUNCTION ARE RECOMMENDED BY THE INTERNATIONAL SOCIETY OF NEPHROLOGY (KDIGO 2012 CLINICAL PRACTICE GUIDELINE). 09/29/2021 5:20 PM [facility]ESS SETTER [facility] Comment: G1,NORMAL OR HIGH: >89 ml/min/1.73 m2 G2,MILDLY DECREASED: 60-89 ml/min/1.73 m2 G3A,MILDLY TO MODERATELY DECREASED: 45-59 ml/min/1.73 m2 G3B,MODERATELY TO SEVERELY DECREASED: 30-44 ml/min/1.73 m2 G4,SEVERELY DECREASED: 15-29 ml/min/1.73 m2 G5,KIDNEY FAILURE: <15 ml/min/1.73 m2 09/29/2021 10:0 5 AM PRESS SETTER Soledad Lucas MD LABORATORY Final Result [facility] [address] [place] [address], * (ABNORMAL) CBC W/DIFF AUTOMATED (09/29/2021 10:05 AM PRESS SETTER) WBC 5.8 4.0 - 10.8 x10'3/uL 09/29/2021 2:03 PM [facility] RBC 5.13 4.50 - 6.10 x10'6/uL 09/29/2021 2:03 PM [facility] HGB 14.1 13.0 - 18.0 G/DL 09/29/2021 2:03 PM PRESS SETTER [facility] HCT 43.3 37.0 - 52.0 % 09/29/2021 2:03 PM [facility] MCV 84.4 78.0 - 100.0 FL 09/29/2021 2:03 PM [facility] MCH 27.5 27.0 - 31.0 PG 09/29/2021 2:03 PM [facility] MCHC 32.6(L) 33.0 - 36.0 G/DL 09/29/2021 2:03 PM [facility] RDW 13.8 11.5 - 14.5 % 09/29/2021 2:03 PM [facility] PLT 262 150 - 350 x10'3/uL 09/29/2021 2:03 PM [facility] MPV 10.6(H) 7.4 - 10.4 FL 09/29/2021 2:03 PM [facility] DIFFERENTIAL TYPE AUTOMATED DIFFERENTIAL 09/29/2021 2:03 PM [facility] NEUTROPHILS % 56.3 % 09/29/2021 2:03 PM [facility] LYMPHOCYTES % 27.5 % 09/29/2021 2:03 PM [facility] MONOCYTES % 10.7 % 09/29/2021 2:03 PM [facility] EOSINOPHILS % 5.0 % 09/29/2021 2:03 PM [facility] BASOPHILS % 0.3 % 09/29/2021 2:03 PM [facility] IMMATURE GRANS % 0.2 % 09/29/2021 2:03 PM [facility] ABS. NEUTROPHILS 3.27 1.60 - 8.30 x10'3/uL 09/29/2021 2:03 PM [facility] ABS. LYMPHOCYTES 1.60 0.80 - 4.70 x10'3/uL 09/29/2021 2:03 PM [facility] ABS. MONOCYTES 0.62 0.00 - 1.50 x10'3/uL 09/29/2021 2:03 PM [facility] ABS. EOSINOPHILS 0.29 0.00 - 0.40 x10'3/uL 09/29/2021 2:03 PM [facility] ABS. BASOPHILS 0.02 0.00 - 0.20 x10'3/uL 09/29/2021 2:03 PM PRESS [facility]TER [facility] [place] ABS. IMMATURE GRANULOCYTES 0.01 0.00 - 0.03 x10'3/uL 09/29/2021 2:03 PM PRESS SETTER [facility] 09/29/2021 10:0 5 AM PRESS SETTER us Soledad Lucas MD LABORATORY Final Result Performing Organization Address [facility] de Phone Number [facility] [place] [address] [place] [address], [place] [phone] * [id number] - EKG (In Clinic Complete tracing, interp & report) (09/29/2021 9:56 AM PRESS SETTER) us Soledad Lucas MD PROCEDURES-RESULTABLE Edited Res ult - Final * (ABNORMAL) ALBUMIN URINE RANDOM (09/29/2021) MICROALBUMIN (U) 80 MG- [address] [place] CREATININE RANDOM (U) 200 [address], [place] MICROALB/CREAT 30-300 MG-[address], [place] URINE SPECIMEN / Unknown 09/29/2021 us Soledad Lucas MD URINE ORDERABLES Final Result Performing Organization Address [facility] de Phone Number MG-[address], [place] [address] [place] [address], [place] [phone] * URINALYSIS, AUTO, COMPLETE (09/29/2021) COLOR (U) YELLOW MG[address] [place] TRANSPARENCY CLEAR [address] [place] GLUCOSE (U) NEGATIVE NEGATIVE MG/DL [address], [place] BILIRUBIN (U) NEGATIVE NEGATIVE MG-[address], [place] KETONES MG/DL (U) NEGATIVE NEGATIVE MG/DL MG-[address], [place] SPECIFIC GRAVITY (U) 1.025 1.001 - 1.035 MG-[address], [place] BLOOD (U) NEGATIVE NEGATIVE MG-[address], [place] U PH 7.0 5.0 - 9.0 MG-[address], [place] PROTEIN (U) NEGATIVE NEGATIVE mg/dL MG-[address], [place] UROBILINOGEN 1.0 0.2 - 1.0 EU/dL = mg/dL MG-[address], [place] NITRITES NEGATIVE NEGATIVE MG/DL MG-[address], [place] LEUKOCYTES (U) NEGATIVE NEGATIVE MG-[address], [place] URINE SPECIMEN OBTAINED BY CLEAN CATCH PROCEDURE / Unknown 09/29/2021 Soledad Lucas MD URINE ORDERABLES Final Result Performing Organization Address City/State/[facility] Co de Phone Number MG[address], [place] [address] [facility] [address] [place] [address], documented in this encounter Visit Diagnoses Diagnosis Annual physical exam- Primary Routine general medical examination at a health care facility Encounter for medical examination to establish care General medical exam Unspecified general medical examination Screening for diabetes mellitus Screening for hyperlipidemia Screening for lipoid disorders Screening for hypothyroidism Screening for thyroid disorder Encounter for hepatitis C screening test for low risk patient Encounter for vitamin deficiency screening Screening for other and unspecified endocrine, nutritional, metabolic, and immunity disorders Screening for prostate cancer Special screening for malignant neoplasm of prostate Screen for colon cancer Special screening for malignant neoplasms, colon Body mass index (BMI) 29.0-29.9, adult Hypercalcemia Hypercalcemia Impaired fasting glucose Impaired fasting glucose Left-sided chest pain Chronic pain of right knee Primary osteoarthritis involving multiple joints Acute pain of left knee Mild intermittent asthma without complication (HHS/HCC) Unspecified asthma Primary hypertension Unspecified essential hypertension documented in this encounter Additional Health Concerns Assessment Noted Time PHQ-9 Depression Total Score: 1 09/29/19 22 10:03 AM PRESS SETTER documented as of this encounter Care Teams Director Of Maintenance Relationship Specialty Start Date End Date Soledad Lucas MD [address] [facility] [address] [place] [address] PCP - General INTERNAL MEDICINE 09/29/21 documented as of this encounter
--- OUTSIDE RECORDS SUMMARY | 2024-08-03 03:28 | XMS_ITS | Encounter Summary ---
Author Organization [facility] Address [address] [place] [address]. [place], [place] [address] [place] [address] Care Team Providers Care Video Game Repair Technician Name Role Phone Danica Fish MD Primary Care Provider Unavailable Encounter Details Date Type Department Care Team (Late st Contact Info) Description 02/15/2012 Abstract [facility] [place] [address] , Danica Prather MD Social History Tobacco Use Types Packs/Day Years [...] st Contact Info) Description 08/19/2024 9:00 AM EXCHANGE TELLER [facility] [place] [address] [address] [place] [address] Soledad Lucas MD [address] [place] [address] 12/16/2024 10:40 AM CDT [facility] [address] [place] [address] Ramsey Oakley MD [address] [address] documented as of this encounter Visit Diagnoses Diagnosis Localized osteoarthrosis, lower leg Localized osteoarthrosis not specified whether primary or secondary, lower leg documented in this encounter Care Teams Video Game Repair Technician Relationship Specialty Start Date End Date Danica Fish MD PCP - General 02/15/12 documented as of this encounter
--- OUTSIDE RECORDS SUMMARY | 2024-08-03 03:28 | XMS_ITS | Encounter Summary ---
Author Organization [facility] Address [address] [place] [address]. [place], [place] [address] [place] [address] Care Team Providers Care Rolled Materials Worker Name Role Phone Md, Generic Crescencio STAPLETON Primary Care Provider Unavailable Encounter Details Date Type Department Care Team (Latest Contact Info) Description 08/22/2017 Abstract [facility] Medical Group Social History Tobacco Use Types [...] st Contact Info) Description 08/19/2024 9:00 AM RESEARCH RECRUITER Office Visit [facility] [place] [address] [address] [place] [address] Soledad Lucas MD [address] [place] [address] 12/16/2024 10:40 AM CDT Office Visit [facility] - [facility] [address] [facility], [address] [place] [address] Ramsey Oakley MD [address] [facility] [address] [place] [address] documented as of this encounter Visit Diagnoses Not on filedocumented in this encounter Care Teams Rolled Materials Worker Relationship Specialty Start Date End Date Danica Stapleton Conversion, PCP - General 02/15/12 documented as of this encounter
--- OUTSIDE RECORDS SUMMARY | 2024-08-03 03:28 | XMS_ITS | Encounter Summary ---
Author Organization [facility] Address [address] [place] [address]. [place], [place] [address] [place] [address] Care Team Providers Care Apartment Manager Name Role Phone , Generic Conversion Primary Care Provider Unavailable , Generic Conversion Primary Care Provider Unavailable , Generic Conversion Primary Care Provider Unavailable Encounter Details Date Type Department Care Team (Late st Contact Info) Description 05/26/2008 Emergency [facility] [place] [address] Yoly Avila MD Social History Tobacco Use Types Packs/Day [...] (Late Contact Info) Description 08/19/2024 9:00 AM ENGINE MANAGER Office Visit [facility] Medical [facility]pecialty Care - [place] [address] [address] [place] [address] Soledad Lucas MD [address] [place] [address] [address] [place] [address] 12/16/2024 10:40 AM CDT Office Visit [facility]ispecialty [facility] [address] [facility], [address] [place] [address] Ramsey Oakley MD [address] [address] documented as of this encounter Visit Diagnoses Not on filedocumented in this encounter Care Teams Apartment Manager Relationship Specialty Start Date End Date Md Generic Conversion, PCP - General 02/15/12 Md Generic Conversion, PCP - General 10/21/11 Md Generic Conversion, PCP - General 08/04/10 documented as of this encounter
--- OUTSIDE RECORDS SUMMARY | 2024-08-03 03:28 | XMS_ITS | Encounter Summary ---
Author Organization [facility] Address [address] [place] [address]. [place], [place] [address] [place] [address] Care Team Providers Care Manager Process Improvement Name Role Phone , Generic Conversion Primary Care Provider Unavailable Md Generic Conversion Primary Care Provider Unavailable Encounter Details Date Type Department Care Team (Latest Contact Info) Description 01/08/2012 Abstract [facility] Medical Group Social History Tobacco [...] Contact Info) Description 08/19/2024 9:00 AM SENIOR NET WEB DEVELOPER Office Visit [facility] Multispecialty Care - [place] [address] [address] [place] [address] Soledad Lucas MD [address] [place] [address] 12/16/2024 10:40 AM CDT Office Visit [facility] Medical [facility]ispecialty [facility] - [address], [address] [place] [address] Ramsey Oakley MD [address] [place] [address] [address] [place] [address] documented as of this encounter Visit Diagnoses Not on filedocumented in this encounter Care Teams Manager Process Improvement Relationship Specialty Start Date End Date Danica Fish Conversion, PCP - General 02/15/12 Danica Fish Conversion, PCP - General 10/21/11 documented as of this encounter
--- OUTSIDE RECORDS SUMMARY | 2024-08-03 03:37 | XMS_ITS | Encounter Summary ---
Author Organization [facility] [place] [facility] Address [address] [facility] Attn: Epic Prelude ADT [place] [address] Care Team Providers Care Fire Prevention Forester Name Role Phone Unavailable Primary Care Provider Unavailabl e Encounter Details Date Type Department Care Team (Latest Contact Info) Description 01/06/2022 Travel Social History Tobacco Use Types Packs/Day Years Used Date Smoking Tobacco: Never Assessed Sex and Gender Information Value Date Recorded Sex Assigned at Not on file Gender Identity Not on file Sexual Orientation Not on file COVID-19 Exposure Response Date Recorded In the last 10 days, have yo u been in contact with someone who was confirmed or suspected to have Coronavirus/COVID-19? Yes 01/06/2022 5:44 PM CDT documented as of this encounter Plan of Treatment Not on file documented as of this encounter Visit Diagnoses Not on filedocumented in this encounter
--- OUTSIDE RECORDS SUMMARY | 2024-08-03 03:37 | XMS_ITS | Encounter Summary ---
Author Organization [facility] Address [address] [place] [address] Care Team Providers Care Criminal Intelligence Analyst Name Role Phone Unavailable Primary Care Provider Unavailabl e Reason for Visit * Reason Comments Cough Encounter Details Date Type Department Care Team (Late st Contact Info) Description 01/06/2022 5:45 PM CDT Office Visit [facility] [place] [address] [place] [id number] Marley Shelton, [facility] [address] [place] [id number] Acute bronchitis, unspecified organism (Primary Dx); Wheezing; Cough; Encounter for screening for COVID-19 Social History Tobacco Use Types Packs/Day Years [...] Sign Reading Time Taken Comments Blood Pressure 156/90 01/06/2022 5:57 PM CDT Pulse 86 01/06/2022 5:57 PM CDT Temperature 36.6 ??C (97.8 ??F) 01/06/2022 5:57 PM CD T Respiratory Rate 18 01/06/2022 5:57 PM CDT Oxygen Saturation 99% 01/06/2022 5:57 PM CDT Inhaled Oxygen Concentration - - Weight 97.5 kg (215 lb) 01/06/2022 5:57 PM CDT Height 185.4 cm (6' 1 ) 01/06/2022 5:57 PM CDT Body Mass Index 28.37 01/06/2022 5:57 PM CDT documented in this encounter Progress Notes * Marley Shelton FNP - 01/06/2022 5:45 PM CDT Assessment and Plan Encounter Diagnoses Name Primary? Acute bronchitis, unspecified organism Yes ??? Wheezing ??? Cough ??? Encounter for screening for COVID-19 Juliet was seen today for cough. Diagnoses and all orders for this visit: Acute bronchitis, unspecified organism Wheezing Cough Encounter for screening for COVID-19 Other orders - POC COVID-19 ANTIGEN Results for orders placed or performed in visit on 01/06/22 POC COVID-19 ANTIGEN Result Value Ref Range COVID-19 ANTIGEN POC Presumptively Negative Presumptively Negative INTERNAL KIT QC POC Pass Pass KIT LOT NUMBER POC 3,039 KIT EXP DATE POC 10/15/22 Comment: Follow up with pcp if no improvement in 3 days. Subjective History of present illness Juliet Grimm is a 60 y.o. male who presents with complaints of persistent deep cough for the past week. Denies any fevers, chills, body aches, congestion, drainage. Reports wheezing and shortness of breath during coughing spells. Review of Systems Review of Systems Constitutional: Negative for chills, fever and malaise/fatigue. Respiratory: Positive for cough, shortness of breath and wheezing. Musculoskeletal: Negative for myalgias. Skin: Negative for itching and rash. Neurological: Negative for headaches. No outpatient medications have been marked as taking for the 01/06/22 encounter (Office Visit) with Marley Shelton FNP. There are no problems to display for this patient. No family history on file. Objective Vitals: 01/06/22 1757 BP: (!) 156/90 Pulse: 86 Resp: 18 Temp: 97.8 ??F (36.6 ??C) SpO2: 99% Physical Exam Physical Exam Constitutional: Appearance: Normal appearance. HENT: Head: Normocephalic. Nose: Nose normal. Eyes: Conjunctiva/sclera: Conjunctivae normal. Cardiovascular: Rate and Rhythm: Normal rate and regular rhythm. Heart sounds: Normal heart sounds. Pulmonary: Effort: Pulmonary effort is normal. Breath sounds: No stridor, decreased air movement or transmitted upper airway sounds. Examination of the right-upper field reveals wheezing. Examination of the left-upper field reveals wheezing. Examination of the right-middle field reveals wheezing. Examination of the left-middle field reveals wheezing. Wheezing present. No decreased breath sounds, rhonchi or rales. Musculoskeletal: Cervical back: Neck supple. Neurological: Mental Status: He is alert. documented in this encounter Miscellaneous Notes * Patient Instructions - Marley Shelton FNP - 01/06/2022 5:45 PM CDT Images from the original note were not included. Bronchitis: Care Instructions Your Care Instructions Bronchitis is inflammation of the bronchial tubes, which carry air to the lungs. The tubes swell and produce mucus, or phlegm. The mucus and inflamedbronchial tubes make you cough. You may have trouble breathing. Most cases of bronchitis are caused by viruses like those that cause colds.Antibiotics usually do not help and they may be harmful. Bronchitis usually develops rapidly and lasts about 2 to 3 weeks in otherwisehealthy people. Follow-up care is a tabares part of your treatment and safety. Be sure to make and go to all appointments, and call your doctor if you are having problems. It's also a good idea to know your test resultsand keep alist of the medicines you take. How can you care for yourself at home? Take all medicines exactly as prescribed. Call your doctor if you think you are having a problem with your medicine. ??? Get some extra rest. ??? Take an xvld-yuq-nbtnreo pain medicine, such as acetaminophen (Tylenol), ibuprofen (Advil, Motrin), or naproxen (Aleve) to reduce fever and relieve body aches. Read and follow all instructions onthe label. ??? Do not take two or more pain medicines at the same time unless the doctor told you to. Many pain medicines have acetaminophen, which is Tylenol. Too much acetaminophen (Tylenol) can be harmful. ??? Take an wgoe-trf-jrdzynu cough medicine to help quiet a dry, hacking cough so that you can sleep. Avoid cough medicines that have more than one active ingredient. Read and follow all instructionson the label. ??? Do not smoke. Smoking can make bronchitis worse. If you need help quitting, talk to your doctorabout stop-smoking programs and medicines. These can increase your chances of quitting for good. When should you call for help? Call 911 anytime you think you may need emergency care. For example, call if: ? You have severe trouble breathing. Call your doctor now or seek immediate medical care if: ? You have new or worse trouble breathing. ? You cough up dark brown or bloody mucus (sputum). ? You have a new or higher fever. ? You have a new rash. Watch closely for changes in your health, and be sure to contact your doctor if: ? You cough more deeply or more often, especially if you notice more mucus or a change in the color of your mucus. ? You are not getting better as expected. Where can you learn more? Go to https://www.[employer].net/patiented Enter H333 in the search box to learn more about Bronchitis: Care Instructions. Current as of: February 09, 2021?Content Version: 13.2 ?? [employer]. Care instructions adapted under license by your healthcare professional. If you have questions about a medical condition or this instruction, always ask your healthcare professional. These instructions may not represent the values of this healthcare organization. [employer] disclaims any warranty or liability for your use of this information. documented in this encounter Plan of Treatment Not on file documented as of this encounter Procedures Procedure Name Priority Date/Time Associated Diagnosis Comments POC COVID-19 ANTIGEN Routine 01/06/2022 6:06 PM CDT documented in this encounter Results * POC COVID-19 ANTIGEN (01/06/2022 6:06 PM CDT) [facility] COVID-19 ANTIGEN POC Presumptively Negative Presumptively Negative [facility] INTERNAL KIT QC POC Pass [facility] 3,[facility] P[facility] 10/15/[facility] Upper Respiratory 01/06/2022 6:06 PM CDT Marley Shelton ASSISTANT FLOOR COVERING PRINTER POINT OF CARE TEST ING [facility] CLIA#[id number] [address] [address] documented in this encounter Visit Diagnoses Diagnosis Acute bronchitis, unspecified organism- Primary Wheezing Cough Encounter for screening for COVID-19 documented in this encounter
--- OUTSIDE RECORDS SUMMARY | 2024-08-03 03:37 | XMS_ITS | Clinical Summary ---
Author Organization [facility] Address [address] [place] [address] Care Team Providers Care Bond Writer Name Role Phone Unavailable Primary Care Provider Unavailabl e Allergies No known active allergies Medications No known medications Active Problems No known active problems Social History Tobacco Use Types Packs/Day Years [...] Mass Index 28.37 01/06/2022 5:57 PM CDT Plan of Treatment Health Maintenance Due Date Last Done Comments DTAP/TDAP/TD VACCINES (1 - Tdap) 08/14/1978 COLORECTAL SCREENING 08/14/2004 Colorectal Cancer Screening 08/14/2004 FIT-DNA Q 3 years 08/14/2004 FIT/FOBT Q 1 year 08/14/2004 Flex Sig/CT Colonography Q 5 years 08/14/2004 ZOSTER VACCINE (1 of 2) 08/14/2009 INFLUENZA VACCINE (#1) 2024 RSV VACCINE (60+ or ) (1 - 1-dose 75+ series) 08/14/2034 PNEUMOCOCCAL VACCINE 0-64 YEARS Aged Out No longer eligible based on patient's age to complete this topic
--- OUTSIDE RECORDS SUMMARY | 2024-08-03 03:37 | XMS_ITS | Continuity of Care Document ---
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 Role Phone Lei White MD Unavailable Unavailable Allergies, Adverse Reactions, Alerts Substance Reaction Status Criticality No Known Allergies Active No Inform ation Medications Medication Instructions Dosage Effective Dates (start - stop) Status Comments hydrocodone 5 mg-acetaminophen 325 mg tablet take 1 tablet by oral route every 6 hours as needed for pain as needed 1.00 tablet - Active PRN for pain, avoid driving or operate machines Norvasc 10 mg tablet take 1 tablet by oral route every day 10 MG - Active Procedures Procedure Date OFFICE/OUTPATIENT VISIT, EST OFFICE/OUTPATIENT VISIT, EST OFFICE/OUTPATIENT VISIT, EST PREV VISIT, EST, AGE 40-64 OFFICE/OUTPATIENT VISIT, EST OFFICE/OUTPATIENT VISIT, EST OFFICE/OUTPATIENT VISIT, EST OFFICE/OUTPATIENT VISIT, EST OFFICE/OUTPATIENT VISIT, EST OFFICE/OUTPATIENT VISIT, EST PPPS, initial visit OFFICE/OUTPATIENT VISIT, EST OFFICE/OUTPATIENT VISIT, EST OFFICE/OUTPATIENT VISIT, EST OFFICE/OUTPATIENT VISIT, EST OFFICE/OUTPATIENT VISIT, EST PREV VISIT, EST, AGE 40-64 OFFICE/OUTPATIENT VISIT, EST OFFICE/OUTPATIENT VISIT, EST OFFICE/OUTPATIENT VISIT, EST OFFICE/OUTPATIENT VISIT, EST OFFICE/OUTPATIENT VISIT, EST OFFICE/OUTPATIENT VISIT, EST OFFICE/OUTPATIENT VISIT, EST PREV VISIT, NEW, AGE 40-64 OFFICE/OUTPATIENT VISIT, NEW Advance Directives Directive Yes / No Effective Date File Name No Information Encounters Encounter Description Practice Location Reason(s) For Visit Diagnoses Date Provider Providers Copied on Encounter [facility], [address], [place], [address], tel:[phone] [facility] No Information 2 Christopher Montes [address], [place], [address]. [phone] OFFICE/OUTPA TIENT VISIT, [facility], [address], [place], [address], tel:[phone] [facility] Medicine HTN (chief complaint) BPH1 (chief complaint) pain (chief complaint) BPH w/ lower urinary tract symptomEssential (primary) hypertensionPain in left kneeEncounter for screening for malignant neoplasm of colon 1 Christopher Montes [address], [place], [address]. [phone] OFFICE/OUTPA TIENT VISIT, [facility], [address], [place], [address], [place] tel:[phone] [facility] Medicine pain (chief complaint) shoulder pain1 (chief complaint) Pain in left kneePain in left shoulder 1 Christopher Montes [address], [place], [address]. tel:[phone] OFFICE/OUTPA TIENT VISIT, [facility], [address], [place], [address], [place] tel:[phone] [facility] pain (chief complaint) BPH1 (chief complaint) BPH w/ lower urinary tract symptomPain in left knee 1 Christopher Montes [address], [place], [address]. tel:[phone] PREV VISIT, EST, AGE 40-64 [facility], [address], [place], [address], [place] tel:[phone] [facility] Medicine physical (chief complaint) Encounter for general adult medical exam w abnormal findingsMuscle spasm of backEssential (primary) hypertensionBPH w/ lower urinary tract symptomPain in left kneeRash 1 Christopher Montes [address], [place], [address]. tel:[phone] OFFICE/OUTPA TIENT VISIT, [facility], [address], [place], [address], [place] tel:[phone] [facility] knee pain1 (chief complaint) ear (chief complaint) Chronic pain syndromeOtalgia, right ear 1 Christopher Montes [address], [place], [address]. tel:[phone] OFFICE/OUTPA TIENT VISIT, [facility], [address], [place], [address], [place] tel:[phone] [facility] HTN (chief complaint) BPH1 (chief complaint) knee pain1 (chief complaint) Essential (primary) hypertensionBPH w/ lower urinary tract symptomPain in left kneeEncounter for screening for malignant neoplasm of colon 1 Christopher Montes [address], [place], [address]. tel:[phone] OFFICE/OUTPA TIENT VISIT, EST [facility], [address], [place], [address], [place] tel:[phone] [facility] knee pain1 (chief complaint) Pain in left kneeChronic pain syndrome 1 Christopher Montes [address], [place], [address]. tel:[phone] OFFICE/OUTPA TIENT VISIT, [facility], [address], [place], [address], [place] tel:[phone] [facility] HTN (chief complaint) knee pain1 (chief complaint) Essential (primary) hypertensionChronic pain syndrome 0 White Lei. [address], [place], [address]. tel:[phone] OFFICE/OUTPA TIENT VISIT, [facility], [address], [place], [address], [place] tel:[phone] [facility] knee pain1 (chief complaint) Chronic pain syndromePain in left knee 0 Christopher Odom. [address], [place], [address]. tel:[phone] OFFICE/OUTPA TIENT VISIT, [facility], [address], [place], [address], [place] tel:[phone] [facility] physical (chief complaint) Encounter for general adult medical exam w abnormal findingsBPH w/ lower urinary tract symptomEssential (primary) hypertensionChronic pain syndrome 0 White Lei. [address], [place], [address]. tel:[phone] OFFICE/OUTPA TIENT VISIT, [facility], [address], [place], [address], [place] tel:[phone] [facility] BPH (chief complaint) gERD1 (chief complaint) knee pain1 (chief complaint) Chronic pain syndromeBPH w/ lower urinary tract symptomAbnormal weight loss 0 Christopher Lei. [address], [place], [address]. tel:[phone] OFFICE/OUTPA TIENT VISIT, [facility], [address], [place], [address], [place] tel:[phone] [facility] knee pain (chief complaint) penile lesion1 (chief complaint) Chronic pain syndromeDisorder of penis 0-202 0 Christopher Lei. [address], [place], [address]. tel:[phone] OFFICE/OUTPA TIENT VISIT, EST [facility], [address], [place], [address], [place] tel:[phone] [facility] HTN (chief complaint) knee pian1 (chief complaint) Essential (primary) hypertensionChronic pain syndrome December-0 0 Christopher Odom. [address], [place], [address]. tel:[phone] Referring Provider: Lei White, [address], [place], [address]. tel:[phone] OFFICE/OUTPA TIENT VISIT, EST [facility], [address], [place], [address], [place] tel:[phone] [facility] pain1 (chief complaint) weight loss1 (chief complaint) Chronic pain syndromeAbnormal weight loss Oct-2 0 Christopher Odom. [address], [place], [address]. tel:[phone] Referring Provider: In[address], [place], [address]. tel:[phone] PREV VISIT, EST, AGE 40-64 [facility], [address], [place], [address], [place] tel:[phone] [facility] BPH1 (chief complaint) physical (chief complaint) Encounter for general adult medical exam w abnormal findingsBPH w/ lower urinary tract symptomEssential (primary) hypertensionChronic pain syndrome Edy-0 0 Christopher Odom. [address], [place], [address]. tel:[phone] Referring Provider: [address], [place], [address]. tel:[phone] OFFICE/OUTPA TIENT VISIT, EST [facility], [address], [place], [address], [place] tel:[phone] [facility] Medicine pain1 (chief complaint) HTN (chief complaint) urinary1 (chief complaint) weight loss1 (chief complaint) Essential (primary) hypertensionBPH w/ lower urinary tract symptomChronic pain syndromeAbnormal weight loss 9 Christopher Montes [address], [place], [address]. tel:[phone] Referring Provider: [address], [place], [address]. tel:[phone] OFFICE/OUTPA TIENT VISIT, [facility], [facility] [address], [place], [address], tel:[phone] [facility] urinary1 (chief complaint) knee pian1 (chief complaint) HTN (chief complaint) weight loss1 (chief complaint) Abnormal weight lossBPH w/ lower urinary tract symptomEssential (primary) hypertensionPain in left knee Apr- 9 [address], [place], [address]. tel:[phone] Referring Provider: [address], [place], [address]. tel:[phone] OFFICE/OUTPA TIENT VISIT, [facility], [facility] [address], [place], [address], [place] tel:[phone] [facility] knee pain1 (chief complaint) HTN (chief complaint) Essential (primary) hypertensionBPH w/ lower urinary tract symptomPain in left knee [address], [place], [address]. tel:[phone] Referring Provider: [address], [place], [address]. tel:[phone] OFFICE/OUTPA TIENT VISIT, [facility], [address], [place], [address], [place] tel:[phone] [facility] knee pain1 (chief complaint) neck pain1 (chief complaint) urinary urgency1 (chief complaint) HTN (chief complaint) Essential (primary) hypertensionChronic pain syndromeBPH w/ lower urinary tract symptomPain in left knee 0 9 White Lei. [address], [place], [address]. [phone] Referring Provider: [address], [place], [address]. tel:[phone] OFFICE/OUTPA TIENT VISIT, [facility], [address], [place], [address], tel:[phone] [facility] STD1 (chief complaint) urine1 (chief complaint) chronic pain (chief complaint) HTN1 (chief complaint) High risk bisexual behaviorBPH w/ lower urinary tract symptomChronic pain syndromeEssential (primary) hypertension Dec-2 0201 8 Christopher Montes [address], [place], [address]. [phone] Referring Provider: [address], [place], [address]. tel:[phone] OFFICE/OUTPA TIENT VISIT, [facility], [address], [place], [address], [place] tel:[phone] [facility] urinary urgency1 (chief complaint) HTN (chief complaint) chronic pain1 (chief complaint) Body mass index (BMI) 32.0-32.9, adultEssential (primary) hypertensionBPH w/ lower urinary tract symptomChronic pain syndrome 8 [address], [place], [address]. tel:[phone] Referring Provider: [address], [place], [address]. tel:[phone] PREV VISIT, NEW, AGE 40-64 [facility], [address], [place], [address], [place] tel:[phone] [facility] PHysical (chief complaint) Encounter for general adult medical exam w abnormal findingsEssential (primary) hypertensionBPH w/ lower urinary tract symptomChronic pain syndrome 0 2201 8 Christopher Montes [address], [place], [address]. [phone] Referring Provider: [place], [address]. tel:[phone] Family History Family Member Type Diagnosis Age At Onset Sister Problem (finding) Diabetes mellitus Mother Problem (finding) breast CA 55 Father Problem (finding) prostate CA 93 Payers Payer name Insurance type Covered green party ID Authoriza tion(s) No Information Social History Type Description Quantity Date Captured Comments Alcohol Use Details Unknown Caffeine Use Details Unknown Tobacco Use Status No Information Smoking Status No Information Sex Male Chief Complaint And Reason For Visit No Information Plan Of Treatment Date Type Action Status Goal Tobacco cessation counseling completed Goal Tobacco cessation counseling completed Goal Special diet education compl eted Goal Special diet education compl eted Goal Tobacco cessation counseling completed Goal Tobacco cessation counseling completed Goal Special diet education compl eted Goal Tobacco cessation counseling completed Goal Special diet education compl eted Goal Tobacco cessation counseling completed Goal Special diet education compl eted Goal Special diet education compl eted Goal Special diet education compl eted Referral Ordered: Checo Leonard -[facility] : Urology (related to BPH w/ lower urinary tract symptom) ordered Referral Ordered: Physical Therapy (related to Muscle spasm of back) ordered Referral Ordered: COLONOSCOPY AND BIOPSY ordered Referral Referred To: Checo Leonard [address] [facility]
[address] [place], [place], [phone] Ordered: Referrals: [facility] Phys[facility] : Urology. Checo Leonard. Evaluate and treat ordered Referral Referred To: Physical Therapy Ordered: Referrals: Physical Therapy. Evaluate and treat ordered Referral Ordered: Otolaryngology (related to Otalgia, right ear) ordered Referral Ordered: Referrals: Otolaryngology. Evaluate and treat ordered Referral Ordered: Gastroenterology (related to Abnormal weight loss) ordered Referral Ordered: Kurtis Mccrary -[facility] : Orthopaedic Surgery (related to Pain in left knee) ordered Referral Ordered: Referrals: Gastroenterology. Evaluate and treat ordered Referral Referred To: Kurtis Mccrary [address] [place], [place] [id number] Ordered: Referrals: [facility]opathic Physicians : Orthopaedic Surgery. Kurtis Mccrary. Evaluate and treat ordered Referral Ordered: Urology (related to BPH w/ lower urinary tract symptom) ordered Referral Ordered: MRI JNT OF LWR EXTRE W/O DYE Left knee ordered Referral Ordered: Urology (related to BPH w/ lower urinary tract symptom) ordered Referral Ordered: CERVICAL SPINE XRAY 7 VIEWS ordered Referral Ordered: Referrals: Urology. Evaluate and treat ordered Referral Ordered: CHRIS COLLINS -[facility] : Surgery (related to BPH w/ lower urinary tract symptom) ordered Referral Ordered: Pain Medicine (related to Chronic pain syndrome) ordered Referral Referred To: CHRIS COLLINS [address] [place], [place], [phone] Ordered: Referrals: [facility]opathic [facility] Osteopathic Physicians : Surgery. CHRIS COLLINS. Evaluate and treat ordered Referral Ordered: Referrals: Pain Medicine. Evaluate and treat ordered History Of Present Illness Encounter Date Complaint History Of Prese nt Illness HTN Pt has Htn. Pt h as not been taking hctz for long time. Pt is noncompliant Pt only takes norvasc and his bp is actually ok. Pt denies any edema BPH1 Pt has urinary u rgency and he denies any difficulty with frequency or dysuria or any difficulty with urination. Pt did not respond to flomax. He was referred to urologist but he is very noncompliant. He still has not followed up with [facility] urology yet pain Pt c/o chronic b ilateral knee pain due to osteoarthritis .Pt sees ortho and is getting steroid injection Pt takes norco and diclofenac PRn for pain. Pt will get knee replacement soon. pain Pt c/o chronic b ilateral knee pain due to osteoarthritis .Pt just saw his ortho and drained some fluid and had steroid injection Pt takes norco and diclofenac PRn for pain. Pt will get knee replacement soon. shoulder pain1 pt c/o acute lef t shoulder pain for two weeks. Pt denies any injury Pt work up with it pt has difficulty moving left shoulder. Pt denies any neck pain or left radiculopathy or left arm weakness or numbness. Pt denies any shoulder redness, warmth or deformity pain Pt c/o chronic b ilateral knee pain due to osteoarthritis .Pt just saw his ortho and drained some fluid and had steroid injection Pt takes norco and diclofenac PRn for pain. Pt will get knee replacement soon. BPH1 Pt has BPH with LUTS. Pt has yamila with [facility] urology in January. Pt denies any dysuria, worsening symptoms physical Pt needs annual physical .Pt has chronic knee pain due to arthritis .Pt sees ortho .Pt takes norco and diclofeanc and doing ok Pt denies any knee swelling or redness or warmth. Pt also c/o acute onset of right side neck muscle and upper shoulder muscle pain for two weeks Pt denies any injury Pt denies any radiculopathy or right arm weakness or numbness. Pt saw chiropractor and had neck x ray done which showed some arthritis and also narrowed disc space around C spine Pt denies any injury. Pt has HTn. Pt takes Norvasc but his bp is still high. pt denies any chest pain or headache Pt denies any edema .Pt has BPH. Pt has chronic urinary frequency during both day and night Pt notices dribbling and urgency as well Pt denies any penile discharge Pt denies any difficulty with urination. Pt tried flomax but did not work .Pt also notices a non itching, non tender rash around the foreskin of his penis for several months Pt denies any penile discharge. Pt denies any penile drainage ear Pt c/o stuffy fe eling right ear for one week Pt thinks that he has cerumen impaction Pt notices muffling hearing. Pt denies any ear pain Pt denies any drainage Pt denies any sinus congestion or sore throat Pt denies any ear drainage. Pt denies any swimming or ear trauma . knee pain1 Pt c/o chronic b ilateral knee pain due to osteoarthritis .Pt just saw his ortho and drained some fluid and had steroid injection Pt takes norco and diclofenac PRn for pain HTN Pt has HTn Pt reyna oliveros stevie and his bp is stable BPH1 Pt has BPH Pt st ates that he has mild urinary urgency without any difficulty with urination or hesitancy Pt saw urologist over one year ago and was told he has BPH pt was given flomax but has not helped very much and he is off that .Pt denies any dysuria knee pain1 Pt has bilateral nee pain, which is chronic ,Pt denies any redness or warmth. Pt c/o mild intermittent knee swelling. Pt is seeing ortho currently and is waiting for knee replacement. . Pt takes norco and diclofenac and doing ok. Pt denies any worsening pain. pt has severe osteoarthritis. knee pain1 Pt has bilateral nee pain, which is chronic ,Pt denies any redness or warmth. Pt c/o mild intermittent knee swelling. Pt is seeing ortho currently and is waiting for knee replacement. . Pt takes norco and diclofenac and doing ok. Pt denies any worsening pain. pt has severe osteoarthritis. Pt wants handicap parking permit HTN Pt has HTn. p ta arlin hydealejandrac and his bp is stable at home. Pt denies any chest pain or headache knee pain1 Pt has bilateral nee pain, which is chronic ,Pt denies any redness or warmth. Pt c/o mild intermittent knee swelling. Pt is seeing ortho currently and is waiting for knee replacement. Pt needs pain medication refill. Pt takes norco and diclofenac and doing ok. Pt denies any worsening pain knee pain1 Pt has bilateral nee pain, which is chronic ,Pt denies any redness or warmth. Pt c/o mild intermittent knee swelling. Pt is seeing ortho currently and is waiting for knee replacement. Pt needs pain medication refill. physical Pt needs annual physical. pt has chronic left knee pain Pt has arthritis with meniscus tear. Pt c/o left knee effusion with daily sharp pain PT denies any redness or warmth PT denies any injury Pt is seeing ortho now for injection Pt does not want knee replacement yet. Pt has HTN Pt takes norvasc and his bp is around 130/70 at home Pt denies any chest pain or headache. Pt has BPH. Pt takes flomax and he sees urology Pt denies any dysuria, pt doing ok currently gERD1 Pt denies anymor e weight loss Pt denies any GI issue .Pt is noncompliant with endoscopy BPH Additional infor demarcusion: Pt has BPH Pt is on flomax Pt sees urology ,PT denies any urinary symptoms. knee pain1 Pt c/o chronic b ilateral knee pain with swelling PT denies any redness or warmth. His left knee was drained by ortho recently. Pt needs norco refill penile lesion1 Pt notices sever al white dry spot on head of penis for one week. pt denies any pain or any bleeding or any penile discharge. Pt denies any drainage. Pt denies any itching. Pt denies any penile trauma knee pain Location: knee. Additional information: Pt has chronic knee pain Pt is seeing ortho at [facility]. He was told that he may need knee replacement soon, Pt failed NSAID and ultram Pt takes norco PRN for pain. Pt denies any swelling or redness or warmth of knee. HTN Pt takes norvasc and he needs refills. He states that his bp is around 130/70 at home Pt denies any swelling knee pian1 Pt has chronic k nee pain Pt is seeing ortho at [facility]. He was told that he may need knee replacement soon, Pt failed NSAID and ultram Pt takes norco PRN for pain. Pt denies any swelling or redness or warmth of knee pain1 Pt c/o chronic l eft knee pain with swelling Pt saw ortho at [facility] and he had left knee drained recently as well as an injection Pt was told kayden the needs knee replacement soon Pt needs norco refilled weight loss1 Pt actually gain ed some weight. pt denies any GERD Pt denies any nausea, vomiting, appetite loss, early satiety, GERD, diarrhea, blood in stool, change of bowel, etc Pt had to cancel his EGD and colonoscopy due to virus outbreak. Pt denies any abd pain physical Pt needs annual physical, His bp is ok with Norvasc, Pt is seeing Dr Douglas and will do EGD and colonoscopy soon. pt denies any GERD. Pt actually gaining weight. Pt denies any appetite loss, nausea, vomiting, early satiety, etc, Pt denies any blood in stool. Pt has chronic knee pain and he [facility] and he does not know yamila time and date. Pt has BPH with urinary difficulty. pt just saw Dr. Rodriguez and was told he has BPh, Pt is on flomax pt states that he urinate better now. Pt denies any other complaints BPH1 urinary1 Pt has urinary f requency and urgency. pt states that he wakes up several times at night to urinate. Pt denies any dribbling. Pt denies any difficulty with urination. Pt still has not seen urology yet. Pt is noncompliant. Pt has yamila with urology tomorrow pain1 Pt has severe le ft knee pain. Pt has chondromalacia and ACL and meniscus tear. Pt failed PT. Pt was offered surgery for knee replacement but he does not want to do it now and he wants to wait for the winter time He wants to know if injection will be an option for him he has 7/10 pain with left knee swelling and pain daily. Pt wants 2nd opinion, Pt has not heard from ortho at [facility] yet. pt needs a note from me stating that he can work for 10 hours shift pt works at [employer] and he has stand on his feet for 10 hours each shift Pt has some knee pain and he sometimes has to leave early due to knee pain. but majority of time he can work for 10 hours. He needs clearance to work for 10 hours shift HTN Pt takes Norvasc His bp is high PT denies any chest pain or headache weight loss1 Pt has not lost more weight since last time Pt has good appetite pt has yamila with GI next week Pt denies any early satiety, nausea, vomiting, bloating weight loss1 Pt has 20 pounds during last 3 months Pt states that he is not trying very hard to lose weight. Pt states that he only been eating one meal per day to try to lose some weight but he is not exercising. Pt denies any early satiety, nausea, vomiting, bloating, abd pain, diarrhea, blood in stool, appetite loss. knee pian1 Pt has severe le ft knee pain. Pt has chondromalacia and ACL and meniscus tear. Pt failed PT. Pt was offered surgery for knee replacement but he does not want to do it now and he wants to wait for the winter time He wants to know if injection will be an option for him he has 7/10 pain with left knee swelling and pain daily HTN Pt has HTN Pt ta kebriana norvasc and his BP is borderline Pt denies any chest pain. Pt denies any headache urinary1 Pt has urinary f requency and urgency. pt states that he wakes up several times at night to urinate. Pt denies any dribbling. Pt denies any difficulty with urination. Pt still has not seen urology yet. Pt is noncompliant. Pt told me urology never contacted him HTN Pt takes norvasc and his BP is stable, Pt denies any swelling knee pain1 Pt c/o persisten t left knee pain with swelling Pt denies any injury Pt failed NSAID Pt is seeing ortho who drained his left knee recently but the swelling resumed shortly after the drainage Pt c/o persistent left knee sharp pain Pt denies any redness or warmth. MRI of left knee was denied by insurance neck pain1 Pt has chronic n erika and back pain Pt denies any worsening pain pt denies any loss of bladder control. Pt never made it to the pain management urinary urgency1 Pt has urinary urgency and frequency. Pt denies any slow stream or urinary hesitation pt denies any frequent urination. HTN Pt has mild HTn today Pt denies any chest pain or headache knee pain1 pt c/o acute ons et of left knee pain for several months. Pt notices left knee swelling. He denies any injury. He went to ER two weeks ago at [facility] and he had large amount of fluid drained from the left knee. He then followed up with DR. Domingo who drained 156 cc fluid out. Pt was told that he has arthritis and he needs knee replacement. Pt does not want left knee replacement now. Pt is in pain Pt wants some pain meds. Pt failed OTC meds STD1 Pt's wants him to be checked for HIV due to history of multiple sex partners .Pt denies any penile discharge. HTN1 Patient had bord josé hypertension. Patient denies any chest pain or headache. 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 The patient has degenerative disc disease on x-ray. Patient denies any injury. The patient denies any loss of bowel bladder control. The patient denies any radiculopathy. Patient failed tramadol and NSAID. Patient has 6/10 pain daily. Pt has mild sciatica symptoms urine1 Pt has urinary u rgency and frequency and also frequent urination at night. Pt denies any difficulty initiating urine. Pt received a call from urology but he has not called back to make appointment yet. chronic pain1 Pt has chronic n erika and low back pain Pt has history of knee surgery and he has knee pain as well. Pt states that he has to reschedule his appointment with pain management due to unable to afford the co-pays. Pt states that he has slightly worsening neck pain and some tension headache recently. Pt denies any head injury. pt denies waking up at night with headache. Pt denies any vision change. Pt denies any loss of bladder control. Pt denies an sciatica. Pt denies any numbness HTN Pt has HTn lPt t akes lisinopril and he still does not know the dosage. His BP is stable urinary urgency1 Pt has urinary urgency and frequency. Pt denies any dysuria. pt denies any dribbling or difficulty with urination pt usually gets up about twice per night to urinate. Pt has not done PSA yet. Pt has not made appointment with urology yet PHysical Pt needs annual physical. Pt has chronic urinary urgency. Pt wakes up 2-3 times at night to urinate Pt denies any slow stream or any difficulty initiating urine. Pt has HTN. Pt takes lisinopril but not sure the dosage His bp is borderline today. pt denies any chest pain or headache Pt has chronic arthritic pain around knee, back and neck. Pt has history of right knee surgery. Pt states that he takes OTC pain meds daily but does not help. His previous PCP used to give him norco PRN for pain but his previous PCP no longer takes well care so he has been out of pain meds. Pt tried ultram and codeine but does not work. Pt denies any worsening pain Pt denies loss of bladder control. Pt denies any radiculopathy or any sciatica. Pt has 7/10 pain daily. Pt denies any worsening pain pt denies any recent injury or any swelling or redness. Pt denies any other complaints Instructions Date Instruction Additional Infor dorian Special diet education Related t o Body mass index (BMI) 30.0-30.9, adult Follow a low sodium diet. Relate d to Essential (primary) hypertension Special diet education Related t o Body mass index (BMI) 30.0-30.9, adult Weight management Related to BPH w/ lower urinary tract symptom Follow a low sodium diet. Relate d to Essential (primary) hypertension Increase activity. Related to Es sential (primary) hypertension Special diet education Related t o Body mass index (BMI) 30.0-30.9, adult Follow a low sodium diet. Relate d to Essential (primary) hypertension Special diet education Related t o Body mass index (BMI) 32.0-32.9, adult Increase activity. Related to Es sential (primary) hypertension Special diet education Related t o Body mass index (BMI) 32.0-32.9, adult Increase activity. Related to Es sential (primary) hypertension Special diet education Related t o Body mass index (BMI) 32.0-32.9, adult Follow a low sodium diet. Relate d to Essential (primary) hypertension Special diet education Related t o Body mass index (BMI) 32.0-32.9, adult Increase physical activity Relat ed to Encounter for general adult medical exam w abnormal findings Weight management Related to Enc ounter for general adult medical exam w abnormal findings Assessments Type Assessment Date No Information
--- OUTSIDE RECORDS SUMMARY | 2024-08-03 05:02 | XMS_ITS | Encounter Summary ---
Author Organization [facility] Address [address] [place] [address]. [place], [place] [address] [place] [address] Care Team Providers Care Group Fitness Manager Name Role Phone Soledad Lucas MD Primary Care Provider [phone] Encounter Details Date Type Department Care Team [...] st Contact Info) Description 08/19/2024 9:00 AM PIN INSERTER Office Visit [facility] Medical [facility] Multispecialty Care - [place] [address] [address] [place] [address] Soledad Lucas MD [address] [place] [address] [address] [place] [address] 12/16/2024 10:40 AM CDT Office Visit [facility] Medical [facility] Multispecialty [address] [place] [address] Ramsey Oakley MD [address] [facility] [address] [address] [place] [address] documented as of this encounter Visit Diagnoses Not on filedocumented in this encounter Additional Health Concerns Assessment Noted Time PHQ-9 Depression Total Score: 1 09/29/19 22 10:03 AM PIN INSERTER documented as of this encounter Care Teams Group Fitness Manager Relationship Specialty Start Date End Date Soledad Lucas MD [address] [address] PCP - General INTERNAL MEDICINE 09/29/21 documented as of this encounter
--- OUTSIDE RECORDS SUMMARY | 2024-08-03 05:02 | XMS_ITS | Encounter Summary ---
Author Organization [facility] Address [address] [place] [address]. [address] [address] Care Team Providers Care Law Secretary Name Role Phone Soledad Lucas MD Primary Care Provider [phone] Reason for Visit * Reason Comments Cerv Radiculitis * Physical Medicine (Routine) - Closed Specialty Diagnoses / Procedures Referred By Prasanth santlilan Referred To Contact PHYSICAL THERAPY / [facility] Physical Therapy Diagnoses Right shoulder pain, unspecified chronicity Cervical radiculopathy Right arm pain Procedures OFFICE/OUTPATIENT NEW LOW MDM 30-44 MINUTES OFFICE/OUTPT VISIT,NEW,LEVL IV OFFICE/OUTPT VISIT,NEW,LEVL V OFFICE/OUTPT VISIT,EST,LEVL III OFFICE/OUTPT VISIT,EST,LEVL IV OFFICE/OUTPT VISIT,EST,LEVL V Isabel Adair, RESEARCH SCHOLAR [address] [place] [address] Phone: tel: fax: [facility] [address] [place] [address] Phone: tel: fax: Referral ID Status Reason Start Date Expiration Date V isits Requested Visits Authorized [id number] Closed Physical Therapy 01/12/2024 04/06/2024 12 12 Encounter Details Date Type Department Care Team (Late st Contact Info) Description 03/15/2024 10:15 AM CDT Office Visit [facility] [address] [place] [address] Daniela Whyte, PT [address] [place] [address] Cerv Radiculitis Social History Tobacco Use Types [...] and fwd vs left Neuromuscular Re-education - 48017 Number of Minutes - 07323: 15 Intervention: held chin tucks seated and [...] shoulder and scapular proprioception Therapeutic Exercise - 41280 Number of Minutes - 21728: 30 Exercise: nu step seat 11 arms [...] shoulder strength, and posture Manual Therapy - 86858 Number of minutes-70516: held today Intervention: cervical distraction Intervention: cervical [...] st Contact Info) Description 08/19/2024 9:00 AM PROOFSHEET CORRECTOR [facility] [place] [address] [address] [place] [address] Soledad Lucas MD [address] [address] 12/16/2024 10:40 AM CDT [facility] [address] [facility] [place] [address] Ramsey Oakley MD [address] [facility] [address] [place] [address] documented as of this encounter Visit Diagnoses Diagnosis Cervical radiculopathy- Primary Brachial neuritis or radiculitis nos Cervical pain (neck) Cervicalgia documented in this encounter Additional Health Concerns Assessment Noted Time PHQ-9 Depression Total Score: 1 09/29/19 10:03 AM PROOFSHEET CORRECTOR documented as of this encounter Care Teams Law Secretary Relationship Specialty Start Date End Date Soledad Lucas MD [address] [place] [address] PCP - General INTERNAL MEDICINE 09/29/21 documented as of this encounter
--- OUTSIDE RECORDS SUMMARY | 2024-08-03 05:02 | XMS_ITS | Encounter Summary ---
Author Organization [facility] Address [address] [place] [address]. [place], [place] [address] [place] [address] Care Team Providers Care Rounder Hand Name Role Phone Soledad Lucas MD Primary Care Provider [phone] Encounter Details Date Type Department Care Team [...] st Contact Info) Description 08/19/2024 9:00 AM ORACLE EBS DEVELOPER Office Visit [facility] Medical [facility] Multispecialty Care - [place] [address] [address] [place] [address] Soledad Lucas MD [address] [place] [address] 157 [place] [address] 12/16/2024 10:40 AM CDT Office Visit [facility] Medical [facility] Multispecialty [address] [place] [address] Ramsey Oakley MD [address] [facility] [place] [address] documented as of this encounter Visit Diagnoses Not on filedocumented in this encounter Additional Health Concerns Assessment Noted Time PHQ-9 Depression Total Score: 1 09/29/19 22 10:03 AM ORACLE EBS DEVELOPER documented as of this encounter Care Teams Rounder Hand Relationship Specialty Start Date End Date Soledad Lucas MD [address] [address] PCP - General INTERNAL MEDICINE 09/29/21 documented as of this encounter
--- OUTSIDE RECORDS SUMMARY | 2024-08-03 05:02 | XMS_ITS | Encounter Summary ---
Author Organization [facility] Address [address] [place] [address]. [place], [place] [address] [place] [address] Care Team Providers Care Production Support Specialist Name Role Phone Soledad Lucas MD Primary Care Provider [phone] Reason for Visit * Reason Onset Date Comments Results 06/21/2024 Encounter Details Date Type Department Care Team (Late st Contact Info) Description 06/21/2024 Telephone [facility] Medical Group Multispecialty Care - [facility] [address] [facility] [place] [phone] Ramsey Oakley MD [address] [facility] [address] [place], [place] [address] Results Social History Tobacco Use Types Packs/Day [...] to get the Claritin over the counter. RITY ESCORT * Marj Singh - 06/21/2024 2:18 PM CST Pt returned call and was transferred to Priya RITY ESCORT * Priya Veliz MA - 06/21/2024 12:46 PM CST Called pt at this time no answer voicemail left to call back. RITY ESCORT * Priya Veliz MA - 06/21/2024 12:44 PM CST ----- Message from Dr. Ramsey Oakley sent at 06/21/2024 12:35 PM SECURITY ESCORT ----- Please let him know that his allergy panel shows multiple positives including environmental molds, grasses, ragweed. I recommend he start Claritin 10 mg nightly. Okay to prescribe or he can buy [id number] if he prefers. Ramsey Oakley MD RITY ESCORT documented in this encounter Plan of Treatment Upcoming Encounters Date Type Department Care Team (Late st Contact Info) Description 08/19/2024 9:00 AM SECURITY ESCORT [facility] [place] [address] [place] [address] [address] [place] [address] [place] [address] [place] [address] 157 [place] [address] 12/16/2024 10:40 AM CDT Office Visit [facility] Multispecialty [facility] - [address] [place] [address] Ramsey Oakley MD [address] [facility] [address] [place] [address] documented as of this encounter Visit Diagnoses Not on filedocumented in this encounter Additional Health Concerns Assessment Noted Time PHQ-9 Depression Total Score: 1 09/29/19 22 10:03 AM SECURITY ESCORT documented as of this encounter Care Teams Production Support Specialist Relationship Specialty Start Date End Date Soledad Lucas MD [address] [facility] [address] [place] [address] PCP - General INTERNAL MEDICINE 09/29/21 documented as of this encounter
--- OUTSIDE RECORDS SUMMARY | 2024-08-03 05:02 | XMS_ITS | Encounter Summary ---
Author Organization [facility] Address [address] [place] [address]. [place] [address] Care Team Providers Care Retail General Manager Name Role Phone Soledad Lucas MD Primary Care Provider [phone] Reason for Visit * Reason Comments Cerv Pain * Physical Medicine (Routine) - Closed Specialty Diagnoses / Procedures Referred By Prasanth santillan Referred To Contact PHYSICAL THERAPY / [facility] Physical Therapy Diagnoses Right shoulder pain, unspecified chronicity Cervical radiculopathy Right arm pain Procedures OFFICE/OUTPATIENT NEW LOW MDM 30-44 MINUTES OFFICE/OUTPT VISIT,NEW,LEVL IV OFFICE/OUTPT VISIT,NEW,LEVL V OFFICE/OUTPT VISIT,EST,LEVL III OFFICE/OUTPT VISIT,EST,LEVL IV OFFICE/OUTPT VISIT,EST,LEVL V Isabel Adair, TOUR SALES REPRESENTATIVE [address] [place] [address] Phone: tel: fax: [facility] [address] [place] [address] Phone: tel: fax: Referral ID Status Reason Start Date Expiration Date V isits Requested Visits Authorized [id number] Closed Physical Therapy 01/12/2024 04/06/2024 12 12 Encounter Details Date Type Department Care Team (Late st Contact Info) Description 02/16/2024 2:00 PM CDT Office Visit [facility] [address] [phone] Soledad Lucas MD [address] [facility] [address] [place] [address] Daniela Whyte, PT [place] [address] Cerv Pain Social History Tobacco Use Types [...] - 02/16/2024 2:00 PM CDT Access Code: [email or web address] URL: [email or web address] Date: 02/16/2024 Prepared by: Daniela Whyte Exercises [...] work one day a week at a [employer]. Mechanism of injury: unknown Pain: current /10 [...] cervical radiculopathy, preDM Occupation:disabled but works at [employer] 1 day week. Images: MRI ordered and [...] Decrease muscle spasm/tissue tension upper scapular area Oil Boiler Goals: to be met at [place]: Independent [...] st Contact Info) Description 08/19/2024 9:00 AM ETCHER AIRCRAFT Office Visit [facility] Multispecialty Care - [address] [place] [address] Soledad Lucas MD [address] [place] [address] 12/16/2024 10:40 AM CDT Office Visit [facility] Multispecialty Care - [facility] [address] [facility] [place] [phone] Ramsey Oakley MD [address] [facility] [address] [place] [address] documented as of this encounter Visit Diagnoses Diagnosis Cervical pain (neck)- Primary Cervicalgia Cervical radiculopathy Brachial neuritis or radiculitis nos documented in this encounter Additional Health Concerns Assessment Noted Time PHQ-9 Depression Total Score: 1 09/29/19 22 10:03 AM ETCHER AIRCRAFT documented as of this encounter Care Teams Retail General Manager Relationship Specialty Start Date End Date Soledad Lucas MD [address] [phone] PCP - General INTERNAL MEDICINE 09/29/21 documented as of this encounter
--- OUTSIDE RECORDS SUMMARY | 2024-08-03 05:02 | XMS_ITS | Encounter Summary ---
Author Organization [facility] Address [address] [place] [address]. [place], [place] [address] [place] [address] Care Team Providers Care Charter Boat Operator Name Role Phone Soledad Lucas MD Primary Care Provider [phone] Reason for Visit * Reason Onset Date Comments Follow Up Call 04/29/2024 Encounter Details Date Type Department Care Team (Late st Contact Info) Description 04/29/2024 Telephone [facility] Medical Group Multispecialty Care - [place] [address] [address] [place] [address] [place] [address] [place] [address] 157 [place] [address] Follow Up Call Social History [...] and reports [facility] and has been unable to keep appointments [...] Contact Info) Description 08/19/2024 9:00 AM SUPERVISOR MOLD CONSTRUCTION Office Visit [facility] Multispecialty Care - [place] [address] [address] [place] [address] Soledad Lucas MD [address] [place] [address] 12/16/2024 10:40 AM CDT Office Visit [facility] Multispecialty Care - [facility] [address] [facility] [place] [phone] Ramsey Oakley MD [address] [facility] [address] [place] [address] documented as of this encounter Visit Diagnoses Diagnosis Drug therapy- Primary Encounter for long-term (current) use of other medications documented in this encounter Additional Health Concerns Assessment Noted Time PHQ-9 Depression Total Score: 1 09/29/19 22 10:03 AM SUPERVISOR MOLD CONSTRUCTION documented as of this encounter Care Teams Charter Boat Operator Relationship Specialty Start Date End Date Soledad Lucas MD [address] [place] [id number] PCP - General INTERNAL MEDICINE 09/29/21 documented as of this encounter
--- OUTSIDE RECORDS SUMMARY | 2024-08-03 05:02 | XMS_ITS | Encounter Summary ---
Author Organization [facility] Address [address] [place] [address]. [address] [address] Care Team Providers Care Boilers Inspector Name Role Phone Soledad Lucas MD Primary Care Provider Reason for Visit * Reason Comments Cerv Radiculitis * Physical Medicine (Routine) - Closed Specialty Diagnoses / Procedures Referred By Prasanth santillan Referred To Contact PHYSICAL THERAPY / [facility] Physical Therapy Diagnoses Right shoulder pain, unspecified chronicity Cervical radiculopathy Right arm pain Procedures OFFICE/OUTPATIENT NEW LOW MDM 30-44 MINUTES OFFICE/OUTPT VISIT,NEW,LEVL IV OFFICE/OUTPT VISIT,NEW,LEVL V OFFICE/OUTPT VISIT,EST,LEVL III OFFICE/OUTPT VISIT,EST,LEVL IV OFFICE/OUTPT VISIT,EST,LEVL V Isabel Adair, CUSTOMER ENGAGEMENT ANALYST [address] [place] [address] Phone: tel: fax: [facility] [address] [place] [address] Phone: tel: fax: Referral ID Status Reason Start Date Expiration Date V isits Requested Visits Authorized [id number] Closed Physical Therapy 01/12/2024 04/06/2024 12 12 Encounter Details Date Type Department Care Team (Late st Contact Info) Description 03/05/2024 9:30 AM CDT Office Visit [facility] [address] [place] [address] Daniela Whyte, PT [address] [place] [address] Cerv Radiculitis Social History Tobacco Use Types [...] and fwd vs left Neuromuscular Re-education - 78842 Number of Minutes - 15322: 15 Intervention: chin tucks seated and reivew supine x 8 hold 5 seconds Intervention: scapular retraction Intervention: sidelying ER with towel roll, cues to press into roll with ER 2 x 10 ea Intervention: supine horizontal abduction red band 2 x 10 issue red band for home Other (Comments): done for shoulder and scapular proprioception Therapeutic Exercise - 35657 Number of Minutes - 62283: 30 Exercise: nu step seat 11 arms [...] shoulder strength, and posture Manual Therapy - 29197 Number of minutes-68017: held today Intervention: cervical distraction Intervention: cervical [...] st Contact Info) Description 08/19/2024 9:00 AM LAST PATTERN GRADER Office Visit [facility] Medical Group Multispecialty Care - [address] [place] [address] Soledad Lucas MD [address] [facility] [address] [place] [address] 12/16/2024 10:40 AM CDT Office Visit [facility] Multispecialty [facility] [address] [facility] [place] [address] Ramsey Oakley MD [address] [facility] [address] [place] [address] documented as of this encounter Visit Diagnoses Diagnosis Cervical radiculopathy- Primary Brachial neuritis or radiculitis nos Cervical pain (neck) Cervicalgia documented in this encounter Additional Health Concerns Assessment Noted Time PHQ-9 Depression Total Score: 1 09/29/19 10:03 AM LAST PATTERN GRADER documented as of this encounter Care Teams Boilers Inspector Relationship Specialty Start Date End Date Soledad Lucas MD [address] [place] [address] [address] [place] [address] PCP - General INTERNAL MEDICINE 09/29/21 documented as of this encounter
--- OUTSIDE RECORDS SUMMARY | 2024-08-03 05:02 | XMS_ITS | Encounter Summary ---
Author Organization [facility] Address [address] [place] [address]. [address] [address] Care Team Providers Care Employer Relations Representative Name Role Phone Soledad Lucas MD Primary Care Provider Encounter Details Date Type Department Care Team (Late st Contact Info) Description 07/24/2024 [facility] [place] - [address] [id number] Soledad Lucas MD [address] [place] [address] Social History Tobacco Use Types Packs/Day [...] st Contact Info) Description 08/19/2024 9:00 AM JOCKEY AGENT Office Visit [facility] Multispecialty [facility] [place] - [address] [place] [address] Soledad Lucas MD 1188 [facility] 157 [place] [address] 12/16/2024 10:40 AM CDT Office Visit [facility] Medical Group Multispecialty Care - [facility] [address] [facility] [address] [place] [address] Ramsey Oakley MD [facility] [address] [place] [address] documented as of this encounter Visit Diagnoses Diagnosis Primary hypertension Unspecified essential hypertension documented in this encounter Additional Health Concerns Assessment Noted Time PHQ-9 Depression Total Score: 1 09/29/19 10:03 AM JOCKEY AGENT documented as of this encounter Care Teams Employer Relations Representative Relationship Specialty Start Date End Date Soledad Lucas MD [address] [address] PCP - General INTERNAL MEDICINE 09/29/21 documented as of this encounter
--- OUTSIDE RECORDS SUMMARY | 2024-08-03 05:02 | XMS_ITS | Encounter Summary ---
Author Organization [facility] Address [address] [place] [address]. [place], [place] [address] [place] [address] Care Team Providers Care Retail Representative Name Role Phone Soledad Lucas MD Primary Care Provider [phone] Encounter Details Date Type Department Care Team (Late st Contact Info) Description 05/08/2024 Therapy Plan [facility] Physical Therapy [address] [facility] [address] [place] [address] Daniela Whyte, PT [place], [place] [id number] Social History Tobacco Use Types Packs/Day Years [...] st Contact Info) Description 08/19/2024 9:00 AM CARBURETOR MECHANIC [facility] - [place] [address] [address] [place] [address] [place] [address] [place] [address] 12/16/2024 10:40 AM CDT [facility] - [facility] [address] [facility] [place] [address] Ramsey Oakley MD [address] [facility] [address] [place] [address] documented as of this encounter Visit Diagnoses Not on filedocumented in this encounter Additional Health Concerns Assessment Noted Time PHQ-9 Depression Total Score: 1 09/29/19 22 10:03 AM CARBURETOR MECHANIC documented as of this encounter Care Teams Retail Representative Relationship Specialty [place] [address] [place] [address] PCP - General INTERNAL MEDICINE 09/29/21 documented as of this encounter
--- OUTSIDE RECORDS SUMMARY | 2024-08-03 05:02 | XMS_ITS | Encounter Summary ---
Author Organization [facility] Address [address] [place] [address]. [place], [place] [address] [place] [address] Care Team Providers Care Bill Adjuster Name Role Phone Soledad Lucas MD Primary Care Provider [phone] Reason for Visit * Reason Comments Lab [...] (Late Contact Info) Description 08/19/2024 9:00 AM AEROBICS TEACHER Office Visit [facility] Medical Group Multispecialty Care - [place] [address] [address] [place] [address] Soledad Lucas MD [address] [place] [address] 12/16/2024 10:40 AM CDT Office Visit [facility] Medical Group Multispecialty Care - [facility] [address] [facility] [address] [place] [address] Ramsey Oakley MD 3 [facility] [address] [place] [address] documented as of this encounter Procedures Procedure Name Priority Date/Time Associated Diagnosis Comments CT GENERIC 02/23/2024 OUTSIDE LAB (SCAN ORDER) 02/23/2024 documented in this encounter Results * OUTSIDE LAB (SCAN ORDER) (02/23/2024) 02/23/2024 [facility] Scanned SCANNING Final Resu lt * CT GENERIC (02/23/2024) Anatomical Region Laterality Modality Other 02/23/2024 [facility] Scanned SCANNING Final Resu lt documented in this encounter Visit Diagnoses Not on filedocumented in this encounter Additional Health Concerns Assessment Noted Time PHQ-9 Depression Total Score: 1 09/29/19 22 10:03 AM AEROBICS TEACHER documented as of this encounter Care Teams Bill Adjuster Relationship Specialty Start Date End Date Soledad Lucas MD 1188 [facility] 157 [place] [address] PCP - General INTERNAL MEDICINE 09/29/21 documented as of this encounter
--- OUTSIDE RECORDS SUMMARY | 2024-08-03 05:02 | XMS_ITS | Encounter Summary ---
Author Organization [facility] Address [address] [place] [address]. [place], [place] [address] [place] [address] Care Team Providers Care Director Of Head Start Name Role Phone Soledad Lucas MD Primary [...] st Contact Info) Description 08/19/2024 9:00 AM BORE MINER OPERATOR Office Visit [facility] Medical Group Multispecialty Care - [place] [address] [address] [place] [address] Soledad Lucas MD [address] [place] [address] 157 [place] [address] 12/16/2024 10:40 AM CDT Office Visit [facility] Medical Group Multispecialty Care - [facility] [address] [facility] [address] [place] [address] Ramsey Oakley MD [address] [facility] [address] [place] [address] documented as of this encounter Procedures Procedure Name Priority Date/Time Associated Diagnosis Comments IMAGE GENERIC 02/14/2024 IMAGE GENERIC 02/14/2024 documented in this encounter Results * IMAGE GENERIC (02/14/2024) Anatomical Region Laterality Modality Other 02/14/2024 [facility] Scanned SCANNING Final Resu lt * IMAGE GENERIC (02/14/2024) Anatomical Region Laterality Modality Other 02/14/2024 [facility] Scanned SCANNING Final Resu lt documented in this encounter Visit Diagnoses Not on filedocumented in this encounter Additional Health Concerns Assessment Noted Time PHQ-9 Depression Total Score: 1 09/29/19 22 10:03 AM BORE MINER OPERATOR documented as of this encounter Care Teams Director Of Head Start Relationship Specialty Start Date End Date Soledad Lucas MD [facility] [address] [address] PCP - General INTERNAL MEDICINE 09/29/21 documented as of this encounter
--- OUTSIDE RECORDS SUMMARY | 2024-08-03 05:02 | XMS_ITS | Encounter Summary ---
Author Organization [facility] Address [address] [place] [address]. [place], [place] [address] [place] [address] Care Team Providers Care English Faculty Member Name Role Phone Soledad Lucas MD Primary Care Provider [phone] Encounter Details Date Type Department Care Team [...] st Contact Info) Description 08/19/2024 9:00 AM HEALTH MANAGER Office Visit [facility] Medical [facility] Multispecialty Care - [place] [address] [address] [place] [address] Soledad Lucas MD [address] [place] [address] 157 [place] [address] 12/16/2024 10:40 AM CDT Office Visit [facility] Medical [facility] Multispecialty [address] [place] [address] Ramsey Oakley MD [address] [facility] [address] [place] [address] documented as of this encounter Visit Diagnoses Not on filedocumented in this encounter Additional Health Concerns Assessment Noted Time PHQ-9 Depression Total Score: 1 09/29/19 22 10:03 AM HEALTH MANAGER documented as of this encounter Care Teams English Faculty Member Relationship Specialty Start Date End Date Soledad Lucas MD [address] [address] PCP - General INTERNAL MEDICINE 09/29/21 documented as of this encounter
--- OUTSIDE RECORDS SUMMARY | 2024-08-03 05:02 | XMS_ITS | Encounter Summary ---
Author Organization [facility] Address [address] [place] [address]. [place], [place] [address] [place] [address] Care Team Providers Care Blacking Wheel Tender Name Role Phone Soledad Lucas MD Primary Care Provider [phone] Reason for Visit * Reason Onset Date Comments No Show 03/22/2024 Patient no showe d/no called for todays 2:15pm appt Encounter Details Date Type Department Care Team (Late Contact Info) Description 03/22/2024 Telephone [facility] Physical Therapy [address] [facility] [address] [place] [address] Sharon Roldan, ESME No Show [...] (Late Contact Info) Description 08/19/2024 9:00 AM DIAMOND SETTER Office Visit [facility] Medical Group Multispecialty Care - [address] [place] [address] Soledad Lucas MD [address] [address] 12/16/2024 10:40 AM CDT Office Visit [facility] Medical Group Multispecialty Care - [facility] [address] [facility] [place] [address] Ramsey Oakley MD 3 [facility] [address] [place] [address] documented as of this encounter Visit Diagnoses Not on filedocumented in this encounter Additional Health Concerns Assessment Noted Time PHQ-9 Depression Total Score: 1 09/29/19 10:03 AM DIAMOND SETTER documented as of this encounter Care Teams Blacking Wheel Tender Relationship Specialty Start Date End Date Soledad Lucas MD [address] [place] [address] PCP - General INTERNAL MEDICINE 09/29/21 documented as of this encounter
--- OUTSIDE RECORDS SUMMARY | 2024-08-03 05:02 | XMS_ITS | Clinical Summary ---
Author Organization [facility] Address [address] [place] [address]. [place] [address] [place] [address] Care Team Providers Care Director Imaging Name Role Phone Soledad Lucas MD Primary Care Provider [phone] Allergies Active Allergy Reactions Criticality Noted Date [...] Type Department Care Team Description 08/01/2024 Telephone [place] [address] [address] [facility] [address] [place] [address] Soledad Lucas MD Medication Information 07/27/2024 Scan Presdo INFO SRVCS Scanned, Doc [facility] 07/24/2024 Orders Only [place] [address] [facility] [address] [place] [address] Soledad Lucas MD 07/24/2024 Telephone [place] [address] [facility] [address] [place] [address] Soledad Lucas MD Medication 07/22/2024 Telephone [place] [address] [facility] [address] [place] [address] Soledad Lucas MD Medication 07/22/2024 Telephone [place] [address] [address] [facility] [address] [place] [address] Soledad Lucas MD Medication 07/08/2024 Telephone [facility] [address] [place] [address] Soledad Lucas MD Medication 06/21/2024 Telephone [facility] [address] [facility], [address] [place] [address] Ramsey Oakley MD Results 06/18/2024 10:32 AM REGIONAL ACCOUNT EXECUTIVE - 06/18/2024 11:59 PM REGIONAL ACCOUNT EXECUTIVE Hospital Encounter [facility] [place] [address] Ramsey Oakley MD Discharge Disposition: Home or Self Care (Routine Discharge) 06/18/2024 10:00 AM REGIONAL ACCOUNT EXECUTIVE Office Visit [facility] [address] [facility], [address] [place] [address] Ramsey Oakley MD Asthma 06/18/2024 Travel 05/08/2024 Therapy Plan [facility] Physical Therapy [address] [address] Daniela Whyte, PT from Last 3 Months [...] Comments Blood Pressure 151/87 06/18/2024 10:16 AM REGIONAL ACCOUNT EXECUTIVE Pulse 70 06/18/2024 9:53 AM REGIONAL ACCOUNT EXECUTIVE Temperature 36.2 ??C (97.1 ??F) 06/18/2024 9:53 AM CS T Respiratory Rate 18 06/18/2024 9:53 AM REGIONAL ACCOUNT EXECUTIVE Oxygen Saturation 99% 06/18/2024 9:53 AM REGIONAL ACCOUNT EXECUTIVE RA Inhaled Oxygen Concentration - - Weight 109.3 kg (241 lb) 06/18/2024 9:53 AM REGIONAL ACCOUNT EXECUTIVE Height 185.4 cm (6' 1 ) 06/18/2024 9:53 AM REGIONAL ACCOUNT EXECUTIVE Body Mass Index 31.8 06/18/2024 9:53 AM REGIONAL ACCOUNT EXECUTIVE Plan of Treatment Upcoming Encounters Date Type Department Care Team (Late st Contact Info) Description 08/19/2024 9:00 AM REGIONAL ACCOUNT EXECUTIVE [facility] [place] [address] [address] [place] [address] Soledad Lucas MD [address] [place] [address] 12/16/2024 10:40 AM CDT Office Visit [facility] Medical [facility] Multispecialty [facility] [address] [facility] [place] [address] Ramsey Oakley MD [address] [facility] [address] [place] [address] Health Maintenance Due Date Last Done Comments [...] ALLERGENS UPPER RESP Routine 06/18/2024 10:35 AM REGIONAL ACCOUNT EXECUTIVE Moderate persistent asthma without complication (HHS/HCC) HEPATITIS C ANTIBODY Routine 09/29/2021 10:05 AM REGIONAL ACCOUNT EXECUTIVE Annual physical exam Encounter for medical examination to establish care General medical exam Encounter for hepatitis C screening test for low risk patient COLONOSCOPY GENERIC (SCAN ORDER) 07/20/2021 from Last 3 Months or Most Recently Relevant to Health Maintenance Results * (ABNORMAL) ALLERGENS UPPER RESP (06/18/2024 10:35 AM REGIONAL ACCOUNT EXECUTIVE) IGE 262.0(H) 0 - 100 kU/L 06/20/2024 1:29 PM REGIONAL ACCOUNT EXECUTIVE [facility] ALLERGEN D PTERONYSSINUS <0.35 <0.35 kU/L 06/20/2024 1:29 PM REGIONAL ACCOUNT EXECUTIVE [facility] Comment:<0.35 IS CLASS 0 (NE GATIVE) ALLERGEN HOUSE DUST MITE <0.35 <0.35 kU/L 06/20/2024 1:29 PM [facility] Comment:<0.35 IS CLASS 0 (NE GATIVE) ALLERGEN CAT DANDER <0.35 <0.35 kU/L 06/20/2024 1:29 PM [facility] Comment:<0.35 IS CLASS 0 (NE GATIVE) ALLERGEN DOG DANDER <0.35 <0.35 kU/L 06/20/2024 1:29 PM [facility] Comment:<0.35 IS CLASS 0 (NE GATIVE) ALLERGEN BERMUDA GRASS <0.35 <0.35 kU/L 06/20/2024 1:29 PM [facility] Comment:<0.35 IS CLASS 0 (NE GATIVE) ALLERGEN LATOYA GRASS 2.73(H) <0.35 kU/L 06/20/2024 1:29 PM [facility] Comment:0.71 - 3.50 IS CLASS 2 (POSITIVE) ALLERGEN COCKROACH <0.35 <0.35 kU/L 06/20/2024 1:29 PM [facility] Comment:<0.35 IS CLASS 0 (NE GATIVE) ALLERGEN PENICILLIUM NOTATUM <0.35 <0.35 kU/L 06/20/2024 1:29 PM [facility] Comment:<0.35 IS CLASS 0 (NE GATIVE) ALLERGEN CLADOSPORIUM HERBARUM 2.60(H) <0.35 kU/L 06/20/2024 1:29 PM [facility] Comment:0.71 - 3.50 IS CLASS 2 (POSITIVE) ALLERGEN ASPERGILLUS FUMIGATUS 4.60(H) <0.35 kU/L 06/20/2024 1:29 PM [facility] Comment:3.51 - 17.5 IS CLASS 3 (POSITIVE) ALLERGEN ALTERNARIA ALTERNATA 3.75(H) <0.35 kU/L 06/20/2024 1:29 PM [facility] Comment:3.51 - 17.5 IS CLASS 3 (POSITIVE) ALLERGEN BOX ELDER <0.35 <0.35 kU/L 06/21/2024 11:32 AM [facility] Comment:<0.35 IS CLASS 0 (NE GATIVE) ALLERGEN WALNUT TREE <0.35 <0.35 kU/L 06/20/2024 1:29 PM [facility] Comment:<0.35 IS CLASS 0 (NE GATIVE) ALLERGEN MAPLE LEAF SYCAMORE <0.35 <0.35 kU/L 06/20/2024 1:29 PM [facility] Comment:<0.35 IS CLASS 0 (NE GATIVE) ALLERGEN COTTONWOOD TREE <0.35 <0.35 kU/L 06/21/2024 11:32 AM [facility] Comment:<0.35 IS CLASS 0 (NE GATIVE) ALLERGEN WHITE MAGGY TREE <0.35 <0.35 kU/L 06/21/2024 11:32 AM [facility] Comment:<0.35 IS CLASS 0 (NE GATIVE) ALLERGEN PECAN HICKORY <0.35 <0.35 kU/L 06/21/2024 11:32 AM [facility] Comment:<0.35 IS CLASS 0 (NE GATIVE) ALLERGEN MOUNTAIN JUNIPER 0.39(H) <0.35 kU/L 06/21/2024 11:32 AM [facility] Comment:0.35 - 0.70 IS CLASS 1 (EQUIVOCAL) ALLERGEN OAK <0.35 <0.35 kU/L 06/21/2024 11:32 AM [facility] Comment:<0.35 IS CLASS 0 (NE GATIVE) ALLERGEN WHITE MULBERRY TREE <0.35 <0.35 kU/L 06/21/2024 11:32 AM [facility] Comment:<0.35 IS CLASS 0 (NE GATIVE) ALLERGEN ELM <0.35 <0.35 kU/L 06/21/2024 11:32 AM [facility] Comment:<0.35 IS CLASS 0 (NE GATIVE) ALLERGEN COMMON RAGWEED 4.05(H) <0.35 kU/L 06/21/2024 11:32 AM REGIONAL ACCOUNT EXECUTIVE [facility] Comment:3.51 - 17.5 IS CLASS 3 (POSITIVE) ALLERGEN SALTWORT <0.35 <0.35 kU/L 06/21/2024 11:32 AM REGIONAL ACCOUNT EXECUTIVE [facility] Comment:<0.35 IS CLASS 0 (NE GATIVE) ALLERGEN PIGWEED <0.35 <0.35 kU/L 06/21/2024 11:32 AM REGIONAL ACCOUNT EXECUTIVE [facility] Comment:<0.35 IS CLASS 0 (NE GATIVE) ALLERGEN ROUGH MARSHELDER 0.63(H) <0.35 kU/L 06/21/2024 11:32 AM [facility] Comment:0.35 - 0.70 IS CLASS 1 (EQUIVOCAL) ALLERGEN MOUSE URINE PROTEIN <0.35 <0.35 kU/L 06/20/2024 1:29 PM REGIONAL ACCOUNT EXECUTIVE [facility] Comment:<0.35 IS CLASS 0 (NE GATIVE) 06/18/2024 10:3 5 AM REGIONAL ACCOUNT EXECUTIVE Ramsey Oakley MD LABORATORY Final Result Performing Organization Address [facility] Co de Phone Number [facility] [address] [place] [address], [phone] * HEPATITIS C ANTIBODY (09/29/2021 10:05 AM REGIONAL ACCOUNT EXECUTIVE) HEPATITIS C AB NON-REACTI VE NON-REACT DESIREE 09/29/2021 6:57 PM REGIONAL ACCOUNT EXECUTIVE [facility] Comment: ANTIBODIES TO HCV NOT DETECTED. DOES NOT EXCLUDE THE POSSIBILITY OF EXPOSURE TO HCV. 09/29/2021 10:0 5 AM REGIONAL ACCOUNT EXECUTIVE Soledad Lucas MD LABORATORY Final Result Performing Organization Address [facility] Co de Phone Number [facility] [address] [place] [phone], [id number] * COLONOSCOPY GENERIC (07/20/2021) 07/20/2021 Narrative 07/20/2021 Ordered by an unspecified provider. us Documents Scanned SCANNING Final Result from Last 3 Months or Most Recently Relevant to Health Maintenance Insurance Care Teams Director Imaging Relationship Specialty Start Date End Date Soledad Lucas MD [address] [facility] [address] [place] [address] PCP - General INTERNAL MEDICINE 09/29/21
--- OUTSIDE RECORDS SUMMARY | 2024-08-03 05:02 | XMS_ITS | Encounter Summary ---
Author Organization [facility] Address [address] [place] [address]. [address] [address] Care Team Providers Care Dedenter Name Role Phone Soledad Lucas MD Primary Care Provider [phone] Reason for Visit * Reason Onset Date Comments Medication 07/22/2024 Encounter Details Date Type Department Care Team (Late st Contact Info) Description 07/22/2024 Telephone [facility] Medical Group Multispecialty Care - [place] [address] [address] [place] [address] Soledad Lucas MD [address] [place] [address] 157 [place], [place] [id number] Medication Social History Tobacco Use Types Packs/Day [...] - 07/22/2024 11:30 AM CST Pharmacy updated Y TECHNICIAN * Libra Deb Goldberg - 07/22/2024 11:14 AM CST This patient called requesting that his pharmacy be changed to [facility] in [place], [place]. He recently moved there. He also needs a new script for: oxyCODONE-acetaminophen (PERCOCET) 7.5-325 MG tablet sent to that [facility]. Thank you. Y TECHNICIAN documented in this encounter Plan of Treatment Upcoming Encounters Date Type Department Care Team (Late st Contact Info) Description 08/19/2024 9:00 AM RELAY TECHNICIAN [facility] - [place] [address] [address] [place] [address] Soledad Lucas MD [address] [place] [address] 12/16/2024 10:40 AM CDT [facility] - [facility] [address] [facility] [place] [address] Ramsey Oakley MD [address] [facility] [address] [place] [address] documented as of this encounter Visit Diagnoses Not on filedocumented in this encounter Additional Health Concerns Assessment Noted Time PHQ-9 Depression Total Score: 1 09/29/19 22 10:03 AM RELAY TECHNICIAN documented as of this encounter Care Teams Dedenter Relationship Specialty Start Date End Date Soledad Lucas MD [address] [place] [address] PCP - General INTERNAL MEDICINE 09/29/21 documented as of this encounter
--- OUTSIDE RECORDS SUMMARY | 2024-08-03 05:02 | XMS_ITS | Encounter Summary ---
Author Organization [facility] Address [address] [place] [address]. [place] [address] Care Team Providers Care Spd Tech Name Role Phone Soledad Lucas MD Primary Care Provider [phone] Reason for Visit * Reason Onset Date Comments Question 02/20/2024 Encounter Details Date Type Department Care Team (Late st Contact Info) Description 02/20/2024 Telephone [facility] Medical Group Multispecialty Care - [place] [address] [address] [place] [address] Soledad Lucas MD [address] [place] [address] 157 [place] [address] Question Social History Tobacco Use [...] Contact Info) Description 08/19/2024 9:00 AM RAILROAD BAGGAGE PORTER [facility] [place] [address] [address] [place] [address] Soledad Lucas MD [address] [address] 12/16/2024 10:40 AM CDT Office Visit [facility] [address] [facility] [place] [address] Ramsey Oakley MD 3 [facility] [address] [place] [address] documented as of this encounter Visit Diagnoses Not on filedocumented in this encounter Additional Health Concerns Assessment Noted Time PHQ-9 Depression Total Score: 1 09/29/19 22 10:03 AM RAILROAD BAGGAGE PORTER documented as of this encounter Care Teams Spd Tech Relationship Specialty Start Date End Date Soledad Lucas MD [address] [place] [address] PCP - General INTERNAL MEDICINE 09/29/21 documented as of this encounter
--- OUTSIDE RECORDS SUMMARY | 2024-08-03 05:02 | XMS_ITS | Encounter Summary ---
Author Organization [facility] - [facility] Address [address] [place] [address]. [address] [address] Care Team Providers Care Equipment Validation Engineer Name Role Phone Soledad Lucas MD Primary Care Provider [phone] Reason for Visit * Reason Comments Follow Up Needs refill on daria pentin and vit d; Neck Pain Arm Pain Encounter Details Date Type Department Care Team (Latest Contact Info) Description 03/13/2024 1:00 PM CDT Office Visit [facility] Medical [facility]ty Care - [place] [address] [address] [address] [place] [address] Soledad Lucas MD [address] [place] [address] [address] [place] [address] Follow Up (Needs refill on gabapentin and [...] Care Everywhere. * Asthma Discharge Instructions, Adult (Romanian) documented in this encounter Progress Notes * [...] ortho for the right shoulder pain at [facility]. Somenumbness in the right upper extremity and [...] mouth nightly at bedtime. 90 tablet 1 Hwzhaka-Fzrmocdkxfw-Pgxkivdjbn (BREZTRI AEROSPHERE) 160-9-4.8 MCG/ACT Aerosol Inhale 2 [...] sulfate HFA 108 (90 Base) MCG/ACT inhaler Cscaree-Qtyyilkunys-Npbuokfwrr (BREZTRI AEROSPHERE) 160-9-4.8 MCG/ACT Aerosol montelukast (SINGULAIR) [...] the day of the encounter. This includes worn-pv-gtxn and muj-suqw-ck-face time I provided on the day of [...] was at least in part performed using [employer] and there may be some inherent flaws in this weld lay out worker due to the nature of this program. Soledad Lucas MD Internal Medicine [facility], [facility]. documented in this encounter Plan of Treatment Upcoming Encounters Date Type Department Care Team (Late st Contact Info) Description 08/19/2024 9:00 AM TRACK MOVING MACHINE OPERATOR Office Visit [facility] - [address] [place] [address] Soledad Lucas MD [address] [place] [address] 12/16/2024 10:40 AM CDT Office Visit [facility] - [address], [address] [place] [address] Ramsey Oakley MD [address] [place] [address] documented as of this encounter Visit Diagnoses [...] Total Score: 1 09/29/19 22 10:03 AM TRACK MOVING MACHINE OPERATOR documented as of this encounter Care Teams Equipment Validation Engineer Relationship Specialty Start Date End Date Soledad Lucas MD [address] [address] PCP - General INTERNAL MEDICINE 09/29/21 documented as of this encounter
--- OUTSIDE RECORDS SUMMARY | 2024-08-03 05:02 | XMS_ITS | Encounter Summary ---
Author Organization [facility] - [facility] Address [address] [place] [address]. [address] [address] Care Team Providers Care Adventure Education Teacher Name Role Phone Soledad Lucas MD Primary Care Provider [phone] Reason for Visit * Reason Onset Date Comments Medication 02/19/2024 Encounter Details Date Type Department Care Team (Late st Contact Info) Description 02/19/2024 Telephone [facility] Medical Group Multispecialty Care - [place] [address] [address] [address] [place] [address] Soledad Lucas MD [address] [place] [address] 157 [place] [address] Medication Social History Tobacco Use [...] st Contact Info) Description 08/19/2024 9:00 AM TECHNICAL MARKETING ENGINEER Office Visit [facility] Medical [facility] Multispecialty [facility] - [address] [address] [address] [place] [address] Soledad Lucas MD [facility] [address] [address] 12/16/2024 10:40 AM CDT [facility] [address] [facility] [place] [address] Ramsey Oakley MD [address] [facility] [address] [place] [address] documented as of this encounter Visit Diagnoses Diagnosis Chronic bilateral low back pain with left-sided sciatica Right shoulder pain, unspecified chronicity documented in this encounter Additional Health Concerns Assessment Noted Time PHQ-9 Depression Total Score: 1 09/29/19 10:03 AM TECHNICAL MARKETING ENGINEER documented as of this encounter Care Teams Adventure Education Teacher Relationship Specialty Start Date End Date Soledad Lucas MD [address] [place] [address] PCP - General INTERNAL MEDICINE 09/29/21 documented as of this encounter
--- OUTSIDE RECORDS SUMMARY | 2024-08-03 05:02 | XMS_ITS | Encounter Summary ---
Author Organization [facility] - [facility] Address [address] [place] [address]. [address] [address] Care Team Providers Care Satellite Instruction Facilitator Name Role Phone Soledad Lucas MD Primary Care Provider [phone] Reason for Visit * Reason Onset Date Comments Medication 07/24/2024 Encounter Details Date Type Department Care Team (Late st Contact Info) Description 07/24/2024 Telephone [facility] Medical Group Multispecialty Care - [place] [address] [address] [address] [place] [address] Soledad Lucas MD [address] [place] [address] [address] [place] [address] Medication Social History Tobacco Use [...] mouth daily. Quantity: 90 days Send to: [facility] in [place], [place] C PASTOR documented in this encounter Plan of Treatment Upcoming Encounters Date Type Department Care Team (Late st Contact Info) Description 08/19/2024 9:00 AM MUSIC PASTOR [facility] - [place] [address] [address] [address] [place] [address] Soledad Lucas MD [address] [place] [address] 12/16/2024 10:40 AM CDT [facility] [address] [facility] [address] [place] [address] Ramsey Oakley MD [address] [facility] [address] [place] [address] documented as of this encounter Visit Diagnoses Not on filedocumented in this encounter Additional Health Concerns Assessment Noted Time PHQ-9 Depression Total Score: 1 09/29/19 10:03 AM MUSIC PASTOR documented as of this encounter Care Teams Satellite Instruction Facilitator Relationship Specialty Start Date End Date Soledad Lucas MD [address] [place] [address] PCP - General INTERNAL MEDICINE 09/29/21 documented as of this encounter
--- OUTSIDE RECORDS SUMMARY | 2024-08-03 05:02 | XMS_ITS | Encounter Summary ---
Author Organization [facility] Address [address] [place] [address]. [place] [address] Care Team Providers Care Porter Sample Case Name Role Phone Soledad Lucas MD Primary Care Provider [phone] Reason for Visit * Reason Comments Asthma * Consultation (Routine) - Pending Review Specialty Diagnoses / Procedures Referred By Prasanth santillan Referred To Contact SLEEP & RESPIRATORY CARE Diagnoses Moderate persistent asthma without complication ([facility]/HCC) Procedures OFFICE/OUTPATIENT NEW LOW MDM 30-44 MINUTES OFFICE/OUTPT VISIT,NEW,LEVL IV OFFICE/OUTPT VISIT,NEW,LEVL V OFFICE/OUTPT VISIT,EST,LEVL III OFFICE/OUTPT VISIT,EST,LEVL IV OFFICE/OUTPT VISIT,EST,LEVL V Soledad Lucas MD [address] [place] [address] Phone: tel: fax: [facility] Medical [facility] - [address] [address] Phone: tel: fax: Referral ID Status Reason Start Date Expiration Date Visits Requested Visits Authorized [id number] Pending Review Specialty Services 01/26/2024 10/31/2024 99 99 Encounter Details Date Type Department Care Team (Late st Contact Info) Description 06/18/2024 10:00 AM COUNTER SERVER Office Visit [facility] Medical Group Multispecialty Care [address] [place] [address] Ramsey Oakley MD 3 [facility] [address] [place] [address] Asthma Social History Tobacco Use Types Packs/Day [...] Comments Blood Pressure 151/87 06/18/2024 10:16 AM COUNTER SERVER Pulse 70 06/18/2024 9:53 AM COUNTER SERVER Temperature 36.2 ??C (97.1 ??F) 06/18/2024 9:53 AM CS T Respiratory Rate 18 06/18/2024 9:53 AM COUNTER SERVER Oxygen Saturation 99% 06/18/2024 9:53 AM COUNTER SERVER RA Inhaled Oxygen Concentration - - Weight 109.3 kg (241 lb) 06/18/2024 9:53 AM COUNTER SERVER Height 185.4 cm (6' 1 ) 06/18/2024 9:53 AM COUNTER SERVER Body Mass Index 31.8 06/18/2024 9:53 AM COUNTER SERVER documented in this encounter Patient Instructions * Patient Instructions* Ramsey Oakley MD - 06/18/2024 10:00 AM COUNTER SERVER Okay to continue Breztri 2 puffs twice a day. Rinse gargle and spit after use Albuterol can be used as needed Get your blood drawn for an allergy panel Plan to follow with me in 6 months TER SERVER documented in this encounter Progress Notes * Ramsey Oakley MD - 06/18/2024 10:00 AM CST Images from the original note were not included. [facility] PULMONARY MEDICINE History Chief Complaint Patient presents with Asthma Referring provider: Soledad Lucas MD Juliet Stout is a 62-year-old male [...] mouth nightly at bedtime. 90 tablet 1 Dmgnjoa-Yggquoiemum-Csjncawzzj (BREZTRI AEROSPHERE) 160-9-4.8 MCG/ACT Aerosol Inhale 2 [...] x-ray. Pertinent Labs 09/24/2023 absolute eosinophils 760 [place]ado Sleepiness Scale Score: No data to display [...] 6 months (around 12/16/2024). Ramsey Oakley MD TER SERVER documented in this encounter Plan of Treatment Upcoming Encounters Date Type Department Care Team (Late st Contact Info) Description 08/19/2024 9:00 AM COUNTER SERVER [facility] [address] [place] [address] Soledad Lucas MD [address] [facility] [address] [place] [address] 12/16/2024 10:40 AM CDT [facility] [address] [facility] [place] [phone] Ramsey Oakley MD [facility] [address] [place] [address] documented as of this encounter Results * (ABNORMAL) ALLERGENS UPPER RESP (06/18/2024 10:35 AM COUNTER SERVER) IGE 262.0(H) 0 - 100 kU/L 06/20/2024 1:[address] [facility] ALLERGEN D PTERONYSSINUS <0.35 <0.35 kU/L 06/20/2024 1:[address] [facility] Comment:<0.35 IS CLASS 0 (NE GATIVE) ALLERGEN HOUSE DUST MITE <0.35 <0.35 kU/L 06/20/2024 1:29 PM [facility] Comment:<0.35 IS CLASS 0 (NE GATIVE) ALLERGEN CAT DANDER <0.35 <0.35 kU/L 06/20/2024 1:29 PM [facility] Comment:<0.35 IS CLASS 0 (NE GATIVE) ALLERGEN DOG DANDER <0.35 <0.35 kU/L 06/20/2024 1:29 PM [facility] Comment:<0.35 IS CLASS 0 (NE GATIVE) ALLERGEN BERMUDA GRASS <0.35 <0.35 kU/L 06/20/2024 1:29 PM [facility] Comment:<0.35 IS CLASS 0 (NE GATIVE) ALLERGEN LATOYA GRASS 2.73(H) <0.35 kU/L 06/20/2024 1:29 PM [facility] Comment:0.71 - 3.50 IS CLASS 2 (POSITIVE) ALLERGEN COCKROACH <0.35 <0.35 kU/L 06/20/2024 1:29 PM [facility] Comment:<0.35 IS CLASS 0 (NE GATIVE) ALLERGEN PENICILLIUM NOTATUM <0.35 <0.35 kU/L 06/20/2024 1:29 PM [facility] Comment:<0.35 IS CLASS 0 (NE GATIVE) ALLERGEN CLADOSPORIUM HERBARUM 2.60(H) <0.35 kU/L 06/20/2024 1:29 PM [facility] Comment:0.71 - 3.50 IS CLASS 2 (POSITIVE) ALLERGEN ASPERGILLUS FUMIGATUS 4.60(H) <0.35 kU/L 06/20/2024 1:29 PM [facility] Comment:3.51 - 17.5 IS CLASS 3 (POSITIVE) ALLERGEN ALTERNARIA ALTERNATA 3.75(H) <0.35 kU/L 06/20/2024 1:29 PM [facility] Comment:3.51 - 17.5 IS CLASS 3 (POSITIVE) ALLERGEN BOX ELDER <0.35 <0.35 kU/L 06/21/2024 11:32 AM [facility] Comment:<0.35 IS CLASS 0 (NE GATIVE) ALLERGEN WALNUT TREE <0.35 <0.35 kU/L 06/20/2024 1:29 PM [facility] Comment:<0.35 IS CLASS 0 (NE GATIVE) ALLERGEN MAPLE LEAF SYCAMORE <0.35 <0.35 kU/L 06/20/2024 1:29 PM [facility] Comment:<0.35 IS CLASS 0 (NE GATIVE) ALLERGEN COTTONWOOD TREE <0.35 <0.35 kU/L 06/21/2024 11:32 AM [facility] Comment:<0.35 IS CLASS 0 (NE GATIVE) ALLERGEN WHITE MAGGY TREE <0.35 <0.35 kU/L 06/21/2024 11:32 AM [facility] Comment:<0.35 IS CLASS 0 (NE GATIVE) ALLERGEN PECAN HICKORY <0.35 <0.35 kU/L 06/21/2024 11:32 AM [facility] Comment:<0.35 IS CLASS 0 (NE GATIVE) ALLERGEN MOUNTAIN JUNIPER 0.39(H) <0.35 kU/L 06/21/2024 11:32 AM [facility] Comment:0.35 - 0.70 IS CLASS 1 (EQUIVOCAL) ALLERGEN OAK <0.35 <0.35 kU/L 06/21/2024 11:32 AM [facility] Comment:<0.35 IS CLASS 0 (NE GATIVE) ALLERGEN WHITE MULBERRY TREE <0.35 <0.35 kU/L 06/21/2024 11:32 AM [facility] Comment:<0.35 IS CLASS 0 (NE GATIVE) ALLERGEN ELM <0.35 <0.35 kU/L 06/21/2024 11:32 AM [facility] Comment:<0.35 IS CLASS 0 (NE GATIVE) ALLERGEN COMMON RAGWEED 4.05(H) <0.35 kU/L 06/21/2024 11:[address] [facility] Comment:3.51 - 17.5 IS CLASS 3 (POSITIVE) ALLERGEN SALTWORT <0.35 <0.35 kU/L 06/21/2024 11:[address] [facility] Comment:<0.35 IS CLASS 0 (NE GATIVE) ALLERGEN PIGWEED <0.35 <0.35 kU/L 06/21/2024 11:[address] [facility] Comment:<0.35 IS CLASS 0 (NE GATIVE) ALLERGEN ROUGH MARSHELDER 0.63(H) <0.35 kU/L 06/21/2024 11:[address] [facility] Comment:0.35 - 0.70 IS CLASS 1 (EQUIVOCAL) ALLERGEN MOUSE URINE PROTEIN <0.35 <0.35 kU/L 06/20/2024 1:[address] [facility] Comment:<0.35 IS CLASS 0 (NE GATIVE) 06/18/2024 10:3 5 AM COUNTER SERVER us Ramsey Oakley MD LABORATORY Final Result [facility] [address] [place] [address], [id number] documented in this encounter Visit Diagnoses Diagnosis Moderate persistent asthma without complication (HHS/HCC)- Primary Unspecified asthma Eosinophilia, unspecified type Seasonal allergies Allergic rhinitis, cause unspecified Primary hypertension Unspecified essential hypertension documented in this encounter Additional Health Concerns Assessment Noted Time PHQ-9 Depression Total Score: 1 09/29/19 22 10:03 AM COUNTER SERVER documented as of this encounter Care Teams Porter Sample Case Relationship Specialty Start Date End Date Soledad Lucas MD [facility] [address] [address] PCP - General INTERNAL MEDICINE 09/29/21 documented as of this encounter
--- OUTSIDE RECORDS SUMMARY | 2024-08-03 05:02 | XMS_ITS | Encounter Summary ---
Author Organization [facility] Address [address] [place] [address]. [place], [place] [address] [place] [address] Care Team Providers Care Tool And Die Manager Name Role Phone Soledad Lucas MD Primary Care Provider [phone] Reason for Visit * Reason Onset Date Comments MRI/CT Orders 01/25/2024 Encounter Details Date Type Department Care Team (Late st Contact Info) Description 01/25/2024 Telephone [facility] Medical Group Multispecialty Care - [address] [address] [address] [place] [address] Soledad Lucas MD [address] [place] [address] [address] [place] [address] MRI/CT Orders Social History Tobacco [...] st Contact Info) Description 08/19/2024 9:00 AM WINDOW AND SIDING CRAFTSMAN [facility] - [place] [address] [address] [address] [place] [address] Soledad Lucas MD [address] [place] [address] 12/16/2024 10:40 AM CDT [facility] [address] [facility] [address] [place] [address] Ramsey Oakley MD [address] [facility] [address] [place] [address] documented as of this encounter Visit Diagnoses Not on filedocumented in this encounter Additional Health Concerns Assessment Noted Time PHQ-9 Depression Total Score: 1 09/29/19 10:03 AM WINDOW AND SIDING CRAFTSMAN documented as of this encounter Care Teams Tool And Die Manager Relationship Specialty Start Date End Date Soledad Lucas MD [address] [place] [address] PCP - General INTERNAL MEDICINE 09/29/21 documented as of this encounter
--- OUTSIDE RECORDS SUMMARY | 2024-08-03 05:02 | XMS_ITS | Encounter Summary ---
Author Organization [facility] - [facility] Address [address] [place] [address] [address] Care Team Providers Care Monument Erector Name Role Phone Soledad Lucas MD Primary Care Provider Reason for Visit * Reason Onset Date Comments Information 02/16/2024 Encounter Details Date Type Department Care Team (Late st Contact Info) Description 02/16/2024 Telephone [facility] Medical Group Multispecialty Care - [place] [address] [address] [address] [place] [address] Soledad Lucas MD [address] [place] [address] [address] [place] [address] Information Social History Tobacco Use [...] a walk up with paper work from [facility] that needs to be filled out for Darrel Riggsok paper work and put on doctors desk. documented in this encounter Plan of Treatment Upcoming Encounters Date Type Department Care Team (Late st Contact Info) Description 08/19/2024 9:00 AM INSURANCE CLAIMS SUPERVISOR Office Visit [facility] Multispecialty Care - [place] [address] [address] [address] [place] [address] Soledad Lucas MD [address] [place] [address] 12/16/2024 10:40 AM CDT Office Visit [facility] Mult[facility]ty Care - [facility] [address] [facility] [place] [address] Ramsey Oakley MD [address] [facility] [address] [place] [address] documented as of this encounter Visit Diagnoses Not on filedocumented in this encounter Additional Health Concerns Assessment Noted Time PHQ-9 Depression Total Score: 1 09/29/19 22 10:03 AM INSURANCE CLAIMS SUPERVISOR documented as of this encounter Care Teams Monument Erector Relationship Specialty Start Date End Date Soledad Lucas MD [address] [address] PCP - General INTERNAL MEDICINE 09/29/21 documented as of this encounter
--- OUTSIDE RECORDS SUMMARY | 2024-08-03 05:02 | XMS_ITS | Encounter Summary ---
Author Organization [facility] Address [address] [place] [address]. [address] [address] Care Team Providers Care Shagger Name Role Phone Soledad Lucas MD Primary Care Provider [phone] Reason for Referral * Medication Prior Authorization - Closed Specialty Diagnoses / Procedures Referred By Prasanth santillan Referred To Contact Diagnoses Right shoulder pain, unspecified chronicity Chronic bilateral low back pain with [place] [address] [place] [address] Phone: tel: fax: Referral ID Status Reason Start Date Expiration Date Visits Re quested Visits Authorized [id number] Closed 1 1 RE POLISHER Reason for Visit * Reason Onset Date Comments Medication 07/22/2024 Encounter Details Date Type Department Care Team (Late st Contact Info) Description 07/22/2024 Telephone [facility] Medical Group Multispecialty Care - [address] [address] [address] [place] [address] [place] [address] [place] [address] Medication Social History Tobacco Use Types [...] st Contact Info) Description 08/19/2024 9:00 AM SUTURE POLISHER [facility] [place] [address] [address] [place] [address] Soledad Lucas MD [address] [place] [address] 12/16/2024 10:40 AM CDT [facility] [address] [facility] [place] [address] Ramsey Oakley MD [address] [facility] [address] [place] [address] documented as of this encounter Visit Diagnoses Diagnosis Right shoulder pain, unspecified chronicity Chronic bilateral low back pain with left-sided sciatica documented in this encounter Additional Health Concerns Assessment Noted Time PHQ-9 Depression Total Score: 1 09/29/19 10:03 AM SUTURE POLISHER documented as of this encounter Care Teams Shagger Relationship Specialty [place] [address] [place] [address] PCP - General INTERNAL MEDICINE 09/29/21 documented as of this encounter
--- OUTSIDE RECORDS SUMMARY | 2024-08-03 05:02 | XMS_ITS | Encounter Summary ---
Author Organization [facility] Address [address] [place] [address]. [place] [address] Care Team Providers Care Tool Worker Name Role Phone Soledad Lucas MD Primary Care Provider [phone] Reason for Visit * Reason Onset Date Comments Medication 07/08/2024 Encounter Details Date Type Department Care Team (Late st Contact Info) Description 07/08/[address] [facility] Medical [facility] Mult[facility]pecialty Care - [place] [address] [address] [address] [place] [address] Soledad Lucas MD [address] [place] [address] [address] [place], [place] [id number] Medication Social History Tobacco Use Types Packs/Day [...] in FAMILY PRACTICE was on: 03/13/2024 in [facility] THYLANILINE SULFATOR OPERATOR documented in this encounter Plan of Treatment Upcoming Encounters Date Type Department Care Team (Late st Contact Info) Description 08/19/2024 9:00 AM DIMETHYLANILINE SULFATOR OPERATOR [facility] [place] [address] [address] [place] [address] [place] [address] [place] [address] 12/16/2024 10:40 AM CDT [facility] [address] [facility] [place] [address] Ramsey Oakley MD 3 [facility] [address] [place] [address] documented as of this encounter Visit Diagnoses Diagnosis Right shoulder pain, unspecified chronicity Chronic bilateral low back pain with left-sided sciatica documented in this encounter Additional Health Concerns Assessment Noted Time PHQ-9 Depression Total Score: 1 09/29/19 22 10:03 AM DIMETHYLANILINE SULFATOR OPERATOR documented as of this encounter Care Teams Tool Worker Relationship Specialty Start Date End Date Soledad Lucas MD [address] [place] [address] PCP - General INTERNAL MEDICINE 09/29/21 documented as of this encounter
--- OUTSIDE RECORDS SUMMARY | 2024-08-03 05:02 | XMS_ITS | Encounter Summary ---
Author Organization [facility] Address [address] [place] [address]. [place], [place] [address] [place] [address] Care Team Providers Care Tension Worker Name Role Phone Soledad Lucas MD Primary Care Provider [phone] Reason for Visit * Reason Onset Date Comments Called To Cancel Office Appt. 02/27/2024 Encounter Details Date Type Department Care Team (Late st Contact Info) Description 02/27/[address] [facility] Physical Therapy [address] [place] [address] Daniela [place], [place] [address] Called To Cancel Office Appt. Social History [...] contact the patient but it went to [employer] Mailbox full so could not leave a message. As per our attendance policy, If the patient fails to call or make it to his next appointment, all subsequent appointments will be cancelled as this is his second no show. documented in this encounter Plan of Treatment Upcoming Encounters Date Type Department Care Team (Late st Contact Info) Description 08/19/2024 9:00 AM RAIL SIGNAL MECHANIC [facility] [place] [address] [address] [place] [address] Soledad Lucas MD [address] [place] [address] 12/16/2024 10:40 AM CDT Office Visit [facility] [address] [facility] [address] [place] [address] Ramsey Oakley MD 3 [facility] [address] [place] [address] documented as of this encounter Visit Diagnoses Not on filedocumented in this encounter Additional Health Concerns Assessment Noted Time PHQ-9 Depression Total Score: 1 09/29/19 22 10:03 AM RAIL SIGNAL MECHANIC documented as of this encounter Care Teams Tension Worker Relationship Specialty [place] [address] [place] [address] PCP - General INTERNAL MEDICINE 09/29/21 documented as of this encounter
--- OUTSIDE RECORDS SUMMARY | 2024-08-03 05:02 | XMS_ITS | Encounter Summary ---
Author Organization [facility] Address [address] [place] [address]. [place], [place] [address] [place] [address] Care Team Providers Care Wire Welder Name Role Phone Soledad Lucas MD Primary Care Provider [phone] Encounter Details Date Type Department Care Team [...] st Contact Info) Description 08/19/2024 9:00 AM ENVIRONMENTAL GEOLOGIST Office Visit [facility] Medical [facility] Multispecialty Care - [place] [address] [address] [place] [address] Soledad Lucas MD [address] [place] [address] 157 [place] [address] 12/16/2024 10:40 AM CDT Office Visit [facility] Medical [facility] Multispecialty [address] [place] [address] Ramsey Oakley MD [address] [facility] [address] [place] [address] documented as of this encounter Visit Diagnoses Not on filedocumented in this encounter Additional Health Concerns Assessment Noted Time PHQ-9 Depression Total Score: 1 09/29/19 22 10:03 AM ENVIRONMENTAL GEOLOGIST documented as of this encounter Care Teams Wire Welder Relationship Specialty Start Date End Date Soledad Lucas MD [address] [address] PCP - General INTERNAL MEDICINE 09/29/21 documented as of this encounter
--- OUTSIDE RECORDS SUMMARY | 2024-08-03 05:02 | XMS_ITS | Encounter Summary ---
Author Organization [facility] - [facility] Address [address] [place] [address]. [address] [address] Care Team Providers Care Lawn Care Specialist Name Role Phone Soledad Lucas MD Primary Care Provider [phone] Reason for Visit * Reason Onset Date Comments Error 02/13/2024 Encounter Details Date Type Department Care Team (Late st Contact Info) Description 02/13/2024 Telephone [facility] Medical Group Multispecialty Care - [place] [address] [address] [place], [place] [phone] Soledad Lucas MD [address] [place] [address] 157 [place], [place] [id number] Error (/) Social History Tobacco Use Types [...] Contact Info) Description 08/19/2024 9:00 AM HOUSE PAINTING INSTRUCTOR Office Visit [facility] Medical [facility] Multispecialty Care - [place] [address] [address] [place] [address] Soledad Lucas MD [address] [facility] [address] [place] [address] 12/16/2024 10:40 AM CDT Office Visit [facility]pecialty [facility] 3 [facility] [address] [place] [address] Ramsey Oakley MD 3 [facility] [address] [place] [address] documented as of this encounter Visit Diagnoses Not on filedocumented in this encounter Additional Health Concerns Assessment Noted Time PHQ-9 Depression Total Score: 1 09/29/19 22 10:03 AM HOUSE PAINTING INSTRUCTOR documented as of this encounter Care Teams Lawn Care Specialist Relationship Specialty [place] [address] [place] [address] 157 [place] [address] PCP - General INTERNAL MEDICINE 09/29/21 documented as of this encounter
--- OUTSIDE RECORDS SUMMARY | 2024-08-03 05:02 | XMS_ITS | Encounter Summary ---
Author Organization [facility] Address [address] [place] [address]. [place], [place] [address] [place] [address] Care Team Providers Care Lamination Builder Name Role Phone Soledad Lucas MD Primary Care Provider [phone] Encounter Details Date Type Department Care Team (Latest Contact Info) Description 06/18/2024 10:32 AM SUPERVISOR LACE TEARING - 06/18/2024 11:59 PM [facility] Hospital Encounter [facility] [place] [address] Ramsey Oakley MD [address] [address] Discharge Disposition: Home or Self Care (Routine [...] Contact Info) Description 08/19/2024 9:00 AM SUPERVISOR LACE TEARING [facility] - [address] [place] [address] Soledad Lucas MD [address] [place] [address] 157 [place] [address] 12/16/2024 10:40 AM CDT [facility] - [facility] 3 [facility], [address] [place] [address] Ramsey Oakley MD 3 [facility] [address] [place] [address] documented as of this encounter Procedures Procedure Name Priority Date/Time Associated Diagnosis Comments ALLERGENS UPPER RESP Routine 06/18/2024 10:35 AM SUPERVISOR LACE TEARING Moderate persistent asthma without complication (HHS/HCC) documented in this encounter Results * (ABNORMAL) ALLERGENS UPPER RESP (06/18/2024 10:35 AM SUPERVISOR LACE TEARING) IGE 262.0(H) 0 - 100 kU/L 06/20/2024 1:29 PM [facility] ALLERGEN D PTERONYSSINUS <0.35 <0.35 kU/L 06/20/2024 1:29 PM [facility] Comment:<0.35 IS CLASS 0 (NE GATIVE) ALLERGEN HOUSE DUST MITE <0.35 <0.35 kU/L 06/20/2024 1:29 PM [facility] Comment:<0.35 IS CLASS 0 (NE GATIVE) ALLERGEN CAT DANDER <0.35 <0.35 kU/L 06/20/2024 1:29 PM [facility] Comment:<0.35 IS CLASS 0 (NE GATIVE) ALLERGEN DOG DANDER <0.35 <0.35 kU/L 06/20/2024 1:29 PM [facility] Comment:<0.35 IS CLASS 0 (NE GATIVE) ALLERGEN BERMUDA GRASS <0.35 <0.35 kU/L 06/20/2024 1:29 PM [facility] Comment:<0.35 IS CLASS 0 (NE GATIVE) ALLERGEN LATOYA GRASS 2.73(H) <0.35 kU/L 06/20/2024 1:29 PM [facility] Comment:0.71 - 3.50 IS CLASS 2 (POSITIVE) ALLERGEN COCKROACH <0.35 <0.35 kU/L 06/20/2024 1:29 PM [facility] Comment:<0.35 IS CLASS 0 (NE GATIVE) ALLERGEN PENICILLIUM NOTATUM <0.35 <0.35 kU/L 06/20/2024 1:29 PM [facility] Comment:<0.35 IS CLASS 0 (NE GATIVE) ALLERGEN CLADOSPORIUM HERBARUM 2.60(H) <0.35 kU/L 06/20/2024 1:29 PM [facility] Comment:0.71 - 3.50 IS CLASS 2 (POSITIVE) ALLERGEN ASPERGILLUS FUMIGATUS 4.60(H) <0.35 kU/L 06/20/2024 1:29 PM [facility] Comment:3.51 - 17.5 IS CLASS 3 (POSITIVE) ALLERGEN ALTERNARIA ALTERNATA 3.75(H) <0.35 kU/L 06/20/2024 1:29 PM [facility] Comment:3.51 - 17.5 IS CLASS 3 (POSITIVE) ALLERGEN BOX ELDER <0.35 <0.35 kU/L 06/21/2024 11:32 AM [facility] Comment:<0.35 IS CLASS 0 (NE GATIVE) ALLERGEN WALNUT TREE <0.35 <0.35 kU/L 06/20/2024 1:29 PM [facility] Comment:<0.35 IS CLASS 0 (NE GATIVE) ALLERGEN MAPLE LEAF SYCAMORE <0.35 <0.35 kU/L 06/20/2024 1:29 PM [facility] Comment:<0.35 IS CLASS 0 (NE GATIVE) ALLERGEN COTTONWOOD TREE <0.35 <0.35 kU/L 06/21/2024 11:32 AM [facility] Comment:<0.35 IS CLASS 0 (NE GATIVE) ALLERGEN WHITE MAGGY TREE <0.35 <0.35 kU/L 06/21/2024 11:32 AM [facility] Comment:<0.35 IS CLASS 0 (NE GATIVE) ALLERGEN PECAN HICKORY <0.35 <0.35 kU/L 06/21/2024 11:32 AM [facility] Comment:<0.35 IS CLASS 0 (NE GATIVE) ALLERGEN MOUNTAIN JUNIPER 0.39(H) <0.35 kU/L 06/21/2024 11:32 AM [facility] Comment:0.35 - 0.70 IS CLASS 1 (EQUIVOCAL) ALLERGEN OAK <0.35 <0.35 kU/L 06/21/2024 11:32 AM [facility] Comment:<0.35 IS CLASS 0 (NE GATIVE) ALLERGEN WHITE MULBERRY TREE <0.35 <0.35 kU/L 06/21/2024 11:32 AM SUPERVISOR LACE TEARING [facility] Comment:<0.35 IS CLASS 0 (NE GATIVE) ALLERGEN [place] <0.35 <0.35 kU/L 06/21/2024 11:32 AM SUPERVISOR LACE TEARING [facility] Comment:<0.35 IS CLASS 0 (NE GATIVE) ALLERGEN COMMON RAGWEED 4.05(H) <0.35 kU/L 06/21/2024 11:32 AM SUPERVISOR LACE TEARING [facility] Comment:3.51 - 17.5 IS CLASS 3 (POSITIVE) ALLERGEN SALTWORT <0.35 <0.35 kU/L 06/21/2024 11:32 AM SUPERVISOR LACE TEARING [facility] Comment:<0.35 IS CLASS 0 (NE GATIVE) ALLERGEN PIGWEED <0.35 <0.35 kU/L 06/21/2024 11:32 AM SUPERVISOR LACE TEARING [facility] Comment:<0.35 IS CLASS 0 (NE GATIVE) ALLERGEN ROUGH MARSHELDER 0.63(H) <0.35 kU/L 06/21/2024 11:32 AM SUPERVISOR LACE TEARING [facility] Comment:0.35 - 0.70 IS CLASS 1 (EQUIVOCAL) ALLERGEN MOUSE URINE PROTEIN <0.35 <0.35 kU/L 06/20/2024 1:29 PM SUPERVISOR LACE TEARING [facility] Comment:<0.35 IS CLASS 0 (NE GATIVE) 06/18/2024 10:3 5 AM SUPERVISOR LACE TEARING us Ramsey Oakley MD LABORATORY Final Result [facility] [address] [place] [address], [id number] documented in this encounter Visit Diagnoses Diagnosis Moderate persistent asthma without complication (HHS/HCC) Unspecified asthma documented in this encounter Additional Health Concerns Assessment Noted Time PHQ-9 Depression Total Score: 1 09/29/19 22 10:03 AM SUPERVISOR LACE TEARING documented as of this encounter Care Teams Lamination Builder Relationship Specialty Start Date End Date Soledad Lucas MD [address] [address] PCP - General INTERNAL MEDICINE 09/29/21 documented as of this encounter
--- OUTSIDE RECORDS SUMMARY | 2024-08-03 05:02 | XMS_ITS | Encounter Summary ---
Author Organization [facility] Address [address] [place] [address]. [place], [place] [address] [place] [address] Care Team Providers Care Director Of Managed Services Name Role Phone Soledad Lucas MD Primary Care Provider [phone] Encounter Details Date Type Department Care Team [...] st Contact Info) Description 08/19/2024 9:00 AM AUTOMOTIVE LUBE TECHNICIAN Office Visit [facility] Medical [facility] Multispecialty Care - [place] [address] [address] [place] [address] Soledad Lucas MD [address] [place] [address] 157 [place] [address] 12/16/2024 10:40 AM CDT Office Visit [facility] Medical [facility] Multispecialty [address] [place] [address] Ramsey Oakley MD [address] [place] [address] documented as of this encounter Visit Diagnoses Not on filedocumented in this encounter Additional Health Concerns Assessment Noted Time PHQ-9 Depression Total Score: 1 09/29/19 22 10:03 AM AUTOMOTIVE LUBE TECHNICIAN documented as of this encounter Care Teams Director Of Managed Services Relationship Specialty Start Date End Date Soledad Lucas MD [address] [address] PCP - General INTERNAL MEDICINE 09/29/21 documented as of this encounter
--- OUTSIDE RECORDS SUMMARY | 2024-08-03 05:02 | XMS_ITS | Encounter Summary ---
Author Organization [facility] Address [address] [place] [address]. [place], [place] [address] [place] [address] Care Team Providers Care Coal Chute Worker Name Role Phone Soledad Lucas MD Primary Care Provider [phone] Encounter Details Date Type Department Care Team [...] st Contact Info) Description 08/19/2024 9:00 AM NEUROPHYSIOLOGY TECH Office Visit [facility] Medical [facility] Multispecialty [place] [address] [address] [place] [address] Soledad Lucas MD [address] [place] [address] 157 [place] [address] 12/16/2024 10:40 AM CDT Office Visit [facility] Medical Group Multispecialty Care - [facility] 3 [facility] [address] [place] [address] Ramsey Oakley MD 3 [facility] [address] [place] [address] documented as of this encounter Visit Diagnoses Not on filedocumented in this encounter Additional Health Concerns Assessment Noted Time PHQ-9 Depression Total Score: 1 09/29/19 22 10:03 AM NEUROPHYSIOLOGY TECH documented as of this encounter Care Teams Coal Chute Worker Relationship Specialty Start Date End Date Soledad Lucas MD 1188 [facility] [address] [place] [address] PCP - General INTERNAL MEDICINE 09/29/21 documented as of this encounter
--- OUTSIDE RECORDS SUMMARY | 2024-08-03 05:02 | XMS_ITS | Encounter Summary ---
Author Organization [facility] - [facility] Address [address] [place] [address] [address] Care Team Providers Care Interactive Account Manager Name Role Phone Soledad Lucas MD Primary Care Provider [phone] Reason for Visit * Reason Onset Date Comments Medication 03/19/2024 Encounter Details Date Type Department Care Team (Late st Contact Info) Description 03/19/2024 Telephone [facility] Medical Group Multispecialty Care - [place] [address] [address] [place] [address] Soledad Lucas MD [address] [place] [address] 157 [place], [place] [phone] Medication Social History Tobacco Use Types Packs/Day [...] something to relax berforeMRI Pls send to [facility] in [place], also he stated that he can't afford the Gabapentin 400 mg, pls call and discuss. documented in this encounter Plan of Treatment Upcoming Encounters Date Type Department Care Team (Late st Contact Info) Description 08/19/2024 9:00 AM EDUCATION AND OUTREACH COORDINATOR [facility] [place] [address] [address] [place] [address] Soledad Lucas MD [address] [place] [address] 12/16/2024 10:40 AM CDT [facility] 3 [facility], [address] [place] [address] Ramsey Oakley MD 3 [facility] [address] [place] [address] documented as of this encounter Visit Diagnoses Diagnosis Anxiety- Primary Anxiety state, unspecified documented in this encounter Additional Health Concerns Assessment Noted Time PHQ-9 Depression Total Score: 1 09/29/19 22 10:03 AM EDUCATION AND OUTREACH COORDINATOR documented as of this encounter Care Teams Interactive Account Manager Relationship Specialty Start Date End Date Soledad Lucas MD [address] [place] [address] PCP - General INTERNAL MEDICINE 09/29/21 documented as of this encounter
--- OUTSIDE RECORDS SUMMARY | 2024-08-03 05:03 | XMS_ITS | Encounter Summary ---
Author Organization [facility] Address [address] [place] [address]. [place], [place] [address] [place] [address] Care Team Providers Care Tree Climber Name Role Phone Soledad Lucas MD Primary Care Provider [phone] Encounter Details Date Type Department Care Team (Late st Contact Info) Description 10/31/2023 Orders [facility] [place] [address] [address] [place] [address] Monica Bro, IDALMIS Social History [...] st Contact Info) Description 08/19/2024 9:00 AM HIGH SPEED OPERATOR [facility] [address] [address] [place], [place] [address] Soledad Lucas MD [address] [place] [address] 157 [place] [address] 12/16/2024 10:40 AM CDT Office Visit [facility] Medical Group Multispecialty Care - [facility] 3 [facility] [address] [place] [address] Ramsey Oakley MD 3 [facility] [address] [place] [address] documented as of this encounter Visit Diagnoses Diagnosis Chronic bilateral low back pain with left-sided sciatica Cervical radiculopathy Brachial neuritis or radiculitis nos documented in this encounter Additional Health Concerns Assessment Noted Time PHQ-9 Depression Total Score: 1 09/29/19 10:03 AM HIGH SPEED OPERATOR documented as of this encounter Care Teams Tree Climber Relationship Specialty Start Date End Date Soledad Lucas MD [facility] [address] [address] PCP - General INTERNAL MEDICINE 09/29/21 documented as of this encounter
--- OUTSIDE RECORDS SUMMARY | 2024-08-03 05:03 | XMS_ITS | Encounter Summary ---
Author Organization [facility] Address [address] [place] [address]. [place], [place] [address] [place] [address] Care Team Providers Care Safety Scientist Name Role Phone Soledad Lucas MD Primary Care Provider [phone] Reason for Visit * Reason Comments Image [...] st Contact Info) Description 08/19/2024 9:00 AM FORKLIFT PICKER Office Visit [facility] Medical Group Multispecialty Care - [place] [address] [address] [place] [address] Soledad Lucas MD [address] [place] [address] 157 [place] [address] 12/16/2024 10:40 AM CDT Office Visit [facility] Medical Group Multispecialty Care - [facility] [address] [facility] [address] [place] [address] Ramsey Oakley MD [address] [place] [address] documented as of this encounter Procedures Procedure [...] Rule Out 09/24/2023 09/24/2023 09/24/2023 3:59 PM FORKLIFT PICKER Assessment Noted Time PHQ-9 Depression Total Score: 1 09/29/19 22 10:03 AM FORKLIFT PICKER documented as of this encounter Care Teams Safety Scientist Relationship Specialty Start Date End Date Soledad Lucas MD 1188 [facility] 157 [place] [address] PCP - General INTERNAL MEDICINE 09/29/21 documented as of this encounter
--- OUTSIDE RECORDS SUMMARY | 2024-08-03 05:03 | XMS_ITS | Encounter Summary ---
Author Organization [facility] Address [address] [place] [address]. [place], [place] [address] [place] [address] Care Team Providers Care Pickler Helper Name Role Phone Soledad Lucas MD Primary Care Provider [phone] Reason for Visit * Reason Comments Lab [...] st Contact Info) Description 08/19/2024 9:00 AM BUCKLE STRAP PUNCHER Office Visit [facility] Medical Group Multispecialty Care - [place] [address] [address] [place] [address] Soledad Lucas MD [address] [place] [address] 157 [place] [address] 12/16/2024 10:40 AM CDT Office Visit [facility] Medical Group Multispecialty Care - [facility] [address] [facility] [facility] [place] [address] Ramsey Oakley MD [address] [place] [address] documented as of this encounter Procedures Procedure Name Priority Date/Time Associated Diagnosis Comments OUTSIDE LAB (SCAN ORDER) Routine 02/10/2023 documented in this encounter Results * OUTSIDE LAB (SCAN) (02/10/2023) HGB A1C 5.5 % [facility]BASE 02/10/2023 us Doc Med Group Scanned SCANNING Final Resu lt [facility] documented in this encounter Visit Diagnoses Not on filedocumented in this encounter Additional Health Concerns Assessment Noted Time PHQ-9 Depression Total Score: 1 09/29/19 22 10:03 AM BUCKLE STRAP PUNCHER documented as of this encounter Care Teams Pickler Helper Relationship Specialty Start Date End Date Soledad Lucas MD [address] [facility] [address] [place] [address] PCP - General INTERNAL MEDICINE 09/29/21 documented as of this encounter
--- OUTSIDE RECORDS SUMMARY | 2024-08-03 05:03 | XMS_ITS | Encounter Summary ---
Author Organization [facility] Address [address] [place] [address]. [address] [address] Care Team Providers Care Wrister Name Role Phone Soledad Lucas MD Primary Care Provider [phone] Reason for Visit * Reason Comments Physical Knee Pain Pain to right knee Follow Up Follow up chronic me dical issues Hypertension Hyperlipidemia Asthma Encounter Details Date Type Department Care Team (Latest Contact Info) Description 08/16/2023 10:20 AM DEAN OF BOYS Office Visit [facility] Medical Group Multispecialty Care - [place] [address] [address] [place] [address] Soledad Lucas MD [address] [place] [address] [address] [place] [address] Physical; Knee Pain (Pain to right knee); [...] Comments Blood Pressure 142/81 08/16/2023 11:20 AM DEAN OF BOYS Pulse 72 08/16/2023 10:38 AM DEAN OF BOYS Temperature 36.7 ??C (98 ??F) 08/16/2023 10:38 AM DEAN OF BOYS Respiratory Rate 16 08/16/2023 10:38 AM DEAN OF BOYS Oxygen Saturation 98% 08/16/2023 10:38 AM DEAN OF BOYS Inhaled Oxygen Concentration - - Weight 97.6 kg (215 lb 3.2 oz) 08/16/2023 10:38 AM DEAN OF BOYS Height 185.4 cm (6' 1 ) 08/16/2023 10:38 AM DEAN OF BOYS Body Mass Index 28.39 08/16/2023 10:38 AM DEAN OF BOYS documented in this encounter Patient Instructions * Patient Instructions* Soledad Lucas MD - 08/16/2023 10:20 AM DEAN OF BOYS Please follow up in February 2024 for your chronic medical issues. Please get your RSV vaccine done. OF BOYS * Attachments The following attachments cannot be sent through Care Everywhere. * Yearly Physical for Adults (Portuguese) documented in this encounter Progress Notes * Soledad Lucas MD - 08/16/2023 10:20 AM CSTAddended by: SOLEDAD LUCAS on: 08/17/2023 04:46 PM Modules accepted: Orders OF BOYS * Soledad Lucas MD - 08/16/2023 10:20 [...] prophylactic vaccination against Streptococcus pneumoniae (pneumococcus) - [94291] Prevnar 13 (Pneumococcal) Abnormal finding of blood chemistry, unspecified - CBC W/DIFF AUTOMATED; Future - CBC W/DIFF AUTOMATED Encounter for screening for malignant neoplasm of prostate - PROSTATE SPECIFIC ANTIGEN,SCREENING; Future - PROSTATE SPECIFIC ANTIGEN,SCREENING Drug therapy - DRUG SCREEN, URINE; Future - DRUG SCREEN, URINE I personally spent a total of 60 minutes on the day of the encounter. This includes fmli-ew-ghxd and tzf-fret-zl-face time I provided on the day of the encounter & excludes time spent performing separately reportable services. DRAGON: This dictation was at least in part performed using Fliqz and there may be some inherent flaws in this fork truck driver due to the nature of this program. MD Soledad GO MD Internal Medicine [facility] Medical Group, [facility]. OF BOYS documented in this encounter Plan of Treatment Upcoming Encounters Date Type Department Care Team (Late st Contact Info) Description 08/19/2024 9:00 AM DEAN OF BOYS Office Visit [facility] Medical Group Multispecialty Care - [place] [address] [place] [address] [address] [place] [address] Soledad Lucas MD [address] [facility] [address] [place] [address] 12/16/2024 10:40 AM CDT Office Visit [facility] Multispecialty Care - [facility] [address] [facility] [place] [address] Ramsey Oakley MD [address] [place] [address] documented as of this encounter Procedures Procedure Name Priority Date/Time Associated Diagnosis Comments TSH W/REFLEX Routine 08/16/2023 11:44 AM DEAN OF BOYS Annual physical exam General medical exam HEMOGLOBIN, GLYCOSYLATED Routine 08/16/2023 11:44 AM DEAN OF BOYS Annual physical exam General medical exam LIPID PANEL Routine 08/16/2023 11:44 AM DEAN OF BOYS Annual physical exam General medical exam PROSTATE SPECIFIC ANTIGEN,SCREENING Routine 08/16/2023 11:43 AM DEAN OF BOYS Annual physical exam General medical exam Encounter for screening for malignant neoplasm of prostate COMPREHENSIVE METABOLIC PANEL Routine 08/16/2023 11:43 AM DEAN OF BOYS Annual physical exam General medical exam CBC W/DIFF AUTOMATED Routine 08/16/2023 11:43 AM [facility] OF BOYS Annual physical exam General medical exam Abnormal finding of blood chemistry, unspecified VENIPUNC ARM DRAW Routine 08/16/2023 11: 24 AM DEAN OF BOYS Annual physical exam General medical exam URINALYSIS AUTO DIP Routine 08/16/2023 Annual physical exam General medical exam documented in this encounter Results * LIPID PANEL (08/16/2023 11:44 AM DEAN OF BOYS) CHOLESTEROL 147 <200 MG/DL 08/17/2023 10:57 AM DEAN OF BOYS [facility] TRIGLYCERIDES 40 <150 MG/DL 08/17/2023 10:57 AM [facility] HDL 80 >40 MG/DL 08/17/2023 10:57 AM DEAN OF BOYS [facility] LDL-C 59 <100 MG/DL 08/17/2023 10:57 AM DEAN OF BOYS [facility] VLDL CALCULATION 8 5 - 28 MG/DL 08/17/2023 10:57 AM DEAN OF BOYS [facility] CHOL/HDL RATIO 1.8 0.0 - 4.0 08/17/2023 10:57 AM [place] OF BOYS [facility] LDL/HDL 0.7 0.41 - 2.13 08/17/2023 10:57 AM [place] OF [place]YS [facility] NON HDL CHOLESTEROL 67 <140 MG/DL 08/17/2023 10:57 AM DEAN OF BOYS [facility] 08/16/2023 11:4 4 AM DEAN OF BOYS us Soledad Lucas MD LABORATORY Final Result Performing Organization Address City/[facility]/ZIP Co de Phone Number [facility] [address] [place] [address], * TSH W/REFLEX (08/16/2023 11:44 AM DEAN OF BOYS) TSH 1.875 0.358 - 3.740 uIU/ML 08/17/2023 10:57 AM [place] OF BOYS [facility] 08/16/2023 11:4 4 AM DEAN OF BOYS us Soledad Lucas MD LABORATORY Final Result [facility] [address] [address], * (ABNORMAL) HEMOGLOBIN, GLYCOSYLATED (08/16/2023 11:44 AM DEAN OF BOYS) HGB A1C 5.6 4.5 - 6.2 % 08/16/2023 8:19 PM DEAN OF BOYS [facility] ESTIMATED AVG GLUCOSE 114(H) 74 - 106 MG/DL 08/16/2023 8:19 PM [place] OF BOYS [facility] 08/16/2023 11:4 4 AM DEAN OF BOYS us Soledad Lucas MD LABORATORY Final Result Performing Organization Address [facility] Co de Phone Number [address] [address], * PROSTATE SPECIFIC ANTIGEN,SCREENING (08/16/2023 11:43 AM DEAN OF BOYS) Pathologist [facility] PSA 3.45 <4.00 NG/ML 08/16/2023 7:44 PM DEAN OF BOYS [facility] Comment: ASSAY PERFORMED BY ENZYME IMMUNOASSAY METHODOLOGY USING Onfido DIMENSION REAGENT. PATIENT RESULTS DETERMINED BY ASSAYS FROM DIFFERENT MANUFACTURERS AND/OR BY DIFFERENT METHODS MAY NOT BE COMPARABLE. 08/16/2023 11:4 3 AM DEAN OF BOYS us Soledad Lucas MD LABORATORY Final Result Performing Organization Address City/[facility] Co de Phone Number [place] [id number] [place] [address], * (ABNORMAL) CBC W/DIFF AUTOMATED (08/16/2023 11:43 AM DEAN OF BOYS) Pathologist [facility] WBC 4.79 4.00 - 10.80 x10'3/uL 08/16/2023 8:03 PM DEAN OF BOYS [facility] RBC 5.05 4.50 - 6.10 x10'6/uL 08/16/2023 8:03 PM [facility] HGB 13.8 13.0 - 18.0 G/DL 08/16/2023 8:03 PM [facility] HCT 43.3 37.0 - 52.0 % 08/16/2023 8:03 PM [facility] MCV 85.7 78.0 - 100.0 FL 08/16/2023 8:03 PM [facility] MCH 27.3 27.0 - 31.0 PG 08/16/2023 8:03 PM [facility] MCHC 31.9(L) 33.0 - 36.0 G/DL 08/16/2023 8:03 PM [facility] RDW 13.6 11.5 - 14.5 % 08/16/2023 8:03 PM [facility] PLT 254 150 - 350 x10'3/uL 08/16/2023 8:03 PM [facility] MPV 10.4 7.4 - 10.4 FL 08/16/2023 8:03 PM [facility] DIFFERENTIAL TYPE AUTOMATED DIFFERENTIAL 08/16/2023 8:03 PM [facility] NEUTROPHILS % 55.4 % 08/16/2023 8:03 PM [facility] LYMPHOCYTES % 23.2 % 08/16/2023 8:03 PM [facility] MONOCYTES % 14.8 % 08/16/2023 8:03 PM [facility] EOSINOPHILS % 5.8 % 08/16/2023 8:03 PM [facility] BASOPHILS % 0.6 % 08/16/2023 8:03 PM [facility] IMMATURE GRANS % 0.2 % 08/16/2023 8:03 PM [facility] ABS. NEUTROPHILS 2.65 1.60 - 8.30 x10'3/uL 08/16/2023 8:03 PM [facility] ABS. LYMPHOCYTES 1.11 0.80 - 4.70 x10'3/uL 08/16/2023 8:03 PM DE[place] OF BOYS [facility] ABS. MONOCYTES 0.71 0.00 - 1.50 x10'3/uL 08/16/2023 8:03 PM [facility] ABS. EOSINOPHILS 0.28 0.00 - 0.40 x10'3/uL 08/16/2023 8:03 PM [facility] ABS. BASOPHILS 0.03 0.00 - 0.20 x10'3/uL 08/16/2023 8:03 PM [facility] ABS. IMMATURE GRANULOCYTES 0.01 0.00 - 0.03 x10'3/uL 08/16/2023 8:03 PM [facility] 08/16/2023 11:4 3 AM [place] OF BOYS Soledad Lucas MD LABORATORY Final Result [facility] [address] [place] [address], * (ABNORMAL) COMPREHENSIVE METABOLIC PANEL (08/16/2023 11:43 AM DEAN OF BOYS) [facility] SODIUM S/P/B 139 136 - 145 MMOL/L 08/16/2023 8:04 PM [facility] POTASSIUM S/P/B 4.1 3.5 - 5.1 MMOL/L 08/16/2023 8:04 PM [facility] CHLORIDE S/P/B 103 98 - 107 MMOL/L 08/16/2023 8:04 PM [facility] CO2 25.8 21 - 32 MMOL/L 08/16/2023 8:04 PM [facility] GLUCOSE 106(H) 70 - 99 MG/DL 08/16/2023 8:04 PM [facility] BUN 10 7 - 18 MG/DL 08/16/2023 8:04 PM [facility] CREATININE S/P/B 1.00 0.70 - 1.30 MG/DL 08/16/2023 8:04 PM [facility] CALCIUM S/P/B 9.3 8.4 - 10.5 MG/DL 08/16/2023 8:04 PM [facility] BILIRUBIN TOTAL S/P/B 1.0 0.2 - 1.0 MG/DL 08/16/2023 8:04 PM [facility] ALKALINE PHOSPHATASE S/P/B 83 45 - 115 U/L 08/16/2023 8:04 PM [facility] AST 15 15 - 37 U/L 08/16/2023 8:04 PM [facility] ALT 18 16 - 63 U/L 08/16/2023 8:04 PM [facility] TOTAL PROTEIN S/P/B 7.4 6.4 - 8.2 G/DL 08/16/2023 8:04 PM [facility] ALBUMIN S/P/B 3.8 3.4 - 5.0 G/DL 08/16/2023 8:04 PM [facility] ANION GAP 10.2 5 - 15 MMOL/L 08/16/2023 8:04 PM [facility] Comment:REFERENCE RANGE NOT ESTABLISHED OSMOLALITY (CALC) 287 MOSM/KG 024 8:04 PM [facility] Comment:REFERENCE RANGE NOT ESTABLISHED GFR ESTIMATE 84(L) >90 ML/MIN/1. 73 M2 08/16/2023 8:04 PM [facility] GFR NOTES GFR REFERENCE S: 08/16/2023 8:04 PM [facility] Comment: THE ESTIMATED GFR IS CALCULATED USING [...] <15 ml/min/1.73 m2 08/16/2023 11:4 3 AM [place] OF BOYS Soledad Lucas MD LABORATORY Final Result -[facility] [address] [place] [address], * (ABNORMAL) URINALYSIS AUTO DIP (08/16/2023) COLOR (U) DARK YELLOW YELLOW [address], [place] TRANSPARENCY CLEAR CLEAR [address], [place] GLUCOSE (U) NEGATIVE NEGATIVE MG/DL [address], [place] BILIRUBIN (U) NEGATIVE NEGATIVE MG-[address], [place] KETONES MG/DL (U) NEGATIVE NEGATIVE MG/DL [address], [place] SPECIFIC GRAVITY (U) 1.030 1.001 - 1.035 [address], [place] BLOOD (U) TRACE (Non Hemolyzed, Intact)(A) NEGATIVE [address], [place] U PH 6.5 5.0 - 9.0 [address], [place] PROTEIN (U) 1+ (30)(A) NEGATIVE mg/dL MG[address], [place] UROBILINOGEN 0.2 0.2 - 1.0 EU/dL = mg/dL MG[address], [place] NITRITES NEGATIVE NEGATIVE MG/DL MG-[address], [place] LEUKOCYTES (U) NEGATIVE NEGATIVE MG-[address], [place] URINE SPECIMEN OBTAINED BY CLEAN CATCH PROCEDURE / Unknown 08/16/2023 Soledad Lucas MD URINE ORDERABLES Final Result MG[address], [place] [address] [facility] [address] [place] [address], documented in this encounter Visit Diagnoses Diagnosis [...] Total Score: 1 09/29/19 22 10:03 AM [place] OF BOYS documented as of this encounter Care Teams Wrister Relationship Specialty Start Date End Date Soledad Lucas MD [address] [facility] [address] [place] [address] PCP - General INTERNAL MEDICINE 09/29/21 documented as of this encounter
--- OUTSIDE RECORDS SUMMARY | 2024-08-03 05:03 | XMS_ITS | Encounter Summary ---
Author Organization [facility] - [facility] Address [address] [place] [address]. [address] [address] Care Team Providers Care Human Resource Adviser Name Role Phone Soledad Lucas MD Primary Care Provider [phone] Reason for Visit * Reason Onset Date Comments Lab Results 08/23/2023 Encounter Details Date Type Department Care Team (Late st Contact Info) Description 08/23/2023 Telephone [facility] Medical Group Multispecialty Care - [place] [address] [address] [place] [address] Soledad Lucas MD [address] [place] [address] [address] [place], [place] [id number] Lab Results Social History Tobacco Use Types [...] Tried calling patient no answer no voicemail E TENDER documented in this encounter Plan of Treatment Upcoming Encounters Date Type Department Care Team (Late st Contact Info) Description 08/19/2024 9:00 AM PLANE TENDER Office Visit [facility] Multispecialty [facility] - [place] [address] [address] [place] [address] Soledad Lucas MD [address] [facility] [address] [place] [address] 12/16/2024 10:40 AM CDT Office Visit [facility] Multispecialty [facility] - [facility] [address] [facility] [place] [address] Ramsey Oakley MD [address] [facility] [address] [place] [address] documented as of this encounter Visit Diagnoses Not on filedocumented in this encounter Additional Health Concerns Assessment Noted Time PHQ-9 Depression Total Score: 1 09/29/19 10:03 AM PLANE TENDER documented as of this encounter Care Teams Human Resource Adviser Relationship Specialty [place] [address] [place] [address] [address] [place] [address] PCP - General INTERNAL MEDICINE 09/29/21 documented as of this encounter
--- OUTSIDE RECORDS SUMMARY | 2024-08-03 05:03 | XMS_ITS | Encounter Summary ---
Author Organization [facility] - [facility] Address [address] [place] [address]. [place], [place] [address] [place] [address] Care Team Providers Care Rehab Physician Name Role Phone Soledad Lucas MD Primary Care Provider [phone] Reason for Visit * Reason Onset Date Comments Follow Up Call 08/22/2023 Encounter Details Date Type Department Care Team (Late st Contact Info) Description 08/22/2023 Telephone [facility] Medical Group Multispecialty Care - [place] [address] [address] [place] [address] Soledad Lucas MD [address] [place] [address] [address] [place] [address] Follow Up Call Social History [...] he doesn't have a voicemail set up ING AID SPECIALIST * Soledad Lucas MD - 08/22/2023 5:10 PM CST Please call patient and have him knot picker cloth urine drug screen to have done at [facility]. His previous urine given was credited. Need to run again. Order written for pickup. Thanks. ING AID SPECIALIST * Soledad Lucas MD - 08/22/2023 5:10 PM CST ----- Message from Urszula Blackwell sent at 08/22/2023 5:05 PM HEARING AID SPECIALIST ----- Regarding: CANCELLED AND CREDITED The order for the Urine Drug Screen released on 08-16-23 has been cancelled and credited on this patient.. Please enter a new order and send specimen directly to [facility] if testing is still needed. Thank you ING AID SPECIALIST documented in this encounter Plan of Treatment Upcoming Encounters Date Type Department Care Team (Late st Contact Info) Description 08/19/2024 9:00 AM HEARING AID SPECIALIST Office Visit [facility] Multispecialty Care - [place] [address] [address] [place] [address] Soledad Lucas MD [address] [place] [address] 12/16/2024 10:40 AM CDT Office Visit [facility] Medical [facility] Multispecialty Care - [facility] [address] [facility] [place] [address] Ramsey Oakley MD [address] [facility] [address] [place] [address] documented as of this encounter Procedures Procedure Name Priority Date/Time Associated Diagnosis Comments DRUG SCREEN COMPREHENSIVE Routine 08/22/2023 5:11 PM HEARING AID SPECIALIST documented in this encounter Results * (ABNORMAL) DRUG SCREEN COMPREHENSIVE (08/22/2023 5:11 PM HEARING AID SPECIALIST) Comment: [facility] Comment: ?? * These results are for medical treatment only. ??* ?? * Analysis was performed as non-forensic testing. * TEST RESULT: DRUG(S) DETECTED:(A) [facility] ([facility] Comment: MARIJUANA METABOLITE BY IMMUNOASSAY(A ) [facility] Comment: [facility] Comment:Acetaminophen Comment: [facility] Comment: PATIENT RESULTS ARE INDICATED ABOVE. ??URINE WAS TESTED FOR THE FOLLOWING: ANALGESICS ? BARBITURATES ? PHENCYCLIDINE ANTIARRYTHMICS ? BENZODIAZEPINE METABS. ? SEDATIVES/HYPNOTICS ANTICONVULSANTS ?CANNABINOIDS ? STIMULANTS ANTIDEPRESSANTS ?COCAINE METABOLITE ? VOLATILES ANTIHISTAMINES ? OPIATES/NARCOTICS ANTIPSYCHOTICS ? MUSCLE RELAXANTS PLEASE REFER TO CURRENT DIRECTORY OF SERVICES FOR SPECIFICS ON WHICH DRUGS ARE TESTED. 08/22/2023 5:11 PM HEARING AID SPECIALIST 08/26/2023 3:34 AM HEARING AID SPECIALIST Narrative Resulting Agency Comment Performing Organization Information: ?Site ID: [id number] ?Name: [facility] ?Address: [address] [place] [address] ?Director: Dr. Michi Jones us Soledad Lucas MD URINE ORDERABLES Final Result [facility] - [facility] [address] [place] [address], documented in this encounter Visit Diagnoses Diagnosis Drug therapy- Primary Encounter for long-term (current) use of other medications documented in this encounter Additional Health Concerns Assessment Noted Time PHQ-9 Depression Total Score: 1 09/29/19 22 10:03 AM HEARING AID SPECIALIST documented as of this encounter Care Teams Rehab Physician Relationship Specialty Start Date End Date Soledad Lucas MD [facility] [address] [address] PCP - General INTERNAL MEDICINE 09/29/21 documented as of this encounter
--- OUTSIDE RECORDS SUMMARY | 2024-08-03 05:03 | XMS_ITS | Encounter Summary ---
Author Organization [facility] - [facility] Address [address] [place] [address]. [place], [place] [address] [place] [address] Care Team Providers Care Project Administrative Assistant Name Role Phone Soledad Lucas MD Primary Care Provider [phone] Reason for Visit * Reason Onset Date Comments Medication Request 05/22/2023 Encounter Details Date Type Department Care Team (Late st Contact Info) Description 05/22/2023 Telephone [facility] Medical Group Multispecialty Care - [place] [address] [address] [place] [address] [place] [address] [place] [address] 157 [place] [address] Medication Request Social History Tobacco [...] his Albuterol Inhaler to be sent to [facility] in [place], [place]. Thanks. documented in this encounter Plan of Treatment Upcoming Encounters Date Type Department Care Team (Late st Contact Info) Description 08/19/2024 9:00 AM HOME APPLIANCE TECH [facility] [place] [address] [address] [place] [address] Soledad Lucas MD [address] [address] 12/16/2024 10:40 AM CDT [facility] [address] [facility] [place] [address] Ramsey Oakley MD [address] [facility] [address] [place] [address] documented as of this encounter Visit Diagnoses Diagnosis Mild intermittent asthma with acute exacerbation ([facility]) Unspecified asthma, with exacerbation documented in this encounter Additional Health Concerns Assessment Noted Time PHQ-9 Depression Total Score: 1 09/29/19 22 10:03 AM HOME APPLIANCE TECH documented as of this encounter Care Teams Project Administrative Assistant Relationship Specialty [place] [address] [place] [address] PCP - General INTERNAL MEDICINE 09/29/21 documented as of this encounter
--- OUTSIDE RECORDS SUMMARY | 2024-08-03 05:03 | XMS_ITS | Encounter Summary ---
Author Organization [facility] Address [address] [place] [address]. [place], [place] [address] [place] [address] Care Team Providers Care Metal Control Worker Name Role Phone Soledad Lucas MD Primary Care Provider [phone] Reason for Visit * Reason Comments Lab [...] Contact Info) Description 08/19/2024 9:00 AM ENVIRONMENTAL FIELD PROFESSIONAL Office Visit [facility] Medical Group Multispecialty Care - [place] [address] [address] [place] [address] Soledad Lucas MD [address] [place] [address] [address] [place] [address] 12/16/2024 10:40 AM CDT Office Visit [facility] Medical Group Multispecialty Care - [facility] [address] [place] [address] Ramsey Oakley MD [address] [place] [address] documented as of this encounter Procedures Procedure [...] Rule Out 09/24/2023 09/24/2023 09/24/2023 3:59 PM ENVIRONMENTAL FIELD PROFESSIONAL Assessment Noted Time PHQ-9 Depression Total Score: 1 09/29/19 10:03 AM ENVIRONMENTAL FIELD PROFESSIONAL documented as of this encounter Care Teams Metal Control Worker Relationship Specialty Start Date End Date Soledad Lucas MD [address] [facility] [address] [place] [address] PCP - General INTERNAL MEDICINE 09/29/21 documented as of this encounter
--- OUTSIDE RECORDS SUMMARY | 2024-08-03 05:03 | XMS_ITS | Encounter Summary ---
Author Organization [facility] Address [address] [place] [address] [address] Care Team Providers Care Shaper And Presser Name Role Phone Soledad Lucas MD Primary Care Provider [phone] Reason for Referral * Physical Medicine (Routine) - Closed Specialty Diagnoses / Procedures Referred By Prasanth santillan Referred To Contact PHYSICAL THERAPY / [facility] Physical Therapy Diagnoses Cervical radiculopathy Procedures OFFICE/OUTPATIENT NEW LOW MDM 30-44 MINUTES OFFICE/OUTPT VISIT,NEW,LEVL IV OFFICE/OUTPT VISIT,NEW,LEVL V OFFICE/OUTPT VISIT,EST,LEVL III OFFICE/OUTPT VISIT,EST,LEVL IV OFFICE/OUTPT VISIT,EST,LEVL V Isabel Adair NP [address] [place] [address] Phone: tel: fax: [facility] Physical Therapy [address] [place] [address] Phone: tel: fax: Referral ID Status Reason Start Date Expiration Date V isits Requested Visits Authorized [id number] Closed Physical Therapy 01/17/2024 02/15/2025 1 1 [...] VISIT,EST,LEVL V Isabel Adair NP [address] [place] [address] Phone: tel:[phone] fax:[phone] Robby Loja MD [address] [place] [address] Phone: tel: fax:[phone] Referral ID Status Reason Start Date Expiration Date V isits Requested Visits Authorized [id number] New Request 01/17/2024 02/15/2025 1 1 Scheduling Instructions Consult hand pain - [facility] arthritis and pain, considering injections. Encounter Details Date Type Department Care Team (Late st Contact Info) Description 01/17/2024 Orders Only [facility] Medical [facility] Mult[facility]pec[facility]ty Care - [place] [address] [place] [address] Isabel Adair NP [address] [place] [address] Social History Tobacco Use Types Packs/Day Years [...] st Contact Info) Description 08/19/2024 9:00 AM ORDER MAKE UP CLERK Office Visit [facility] Medical [facility] Care - [place] [address] [address] [place] [address] Soledad Lucas MD [address] [place] [address] 12/16/2024 10:40 AM CDT Office Visit [facility] Multispecialty Care - [facility] 3 [facility] [address] [place] [id number] Ramsey Oakley MD 3 [facility] [address] [place] [address] Scheduled Referrals Name Type Priority Associated Diagnoses [...] Total Score: 1 09/29/19 22 10:03 AM ORDER MAKE UP CLERK documented as of this encounter Care Teams Shaper And Presser Relationship Specialty Start Date End Date Soledad Lucas MD [facility] [address] [address] PCP - General INTERNAL MEDICINE 09/29/21 documented as of this encounter
--- OUTSIDE RECORDS SUMMARY | 2024-08-03 05:03 | XMS_ITS | Encounter Summary ---
Author Organization [facility] - [facility] Address [address] [place] [address]. [address] [address] Care Team Providers Care Joint Cutter Name Role Phone Soledad Lucas MD Primary Care Provider [phone] Reason for Visit * Reason Onset Date Comments Medication Information 08/04/2023 Medication 08/04/2023 Encounter Details Date Type Department Care Team (Late st Contact Info) Description 08/04/2023 Telephone [facility] Medical Group Multispecialty Care - [place] [address] [address] [place] [address] Soledad Lucas MD [address] [place] [address] [address] [place], [place] [id number] Medication Information; Medication Social History Tobacco Use [...] with patient. Sent to preferred pharmacy in [place] instead. T MACHINE TENDER * Jatin Cortez - 08/04/2023 2:50 PM CST This is the 3rd time the pt has called today regarding his Lisinopril, first his refills were going[facility], now to [facility], so when he went to pick it up at [facility] they didn't have it, so I'm assuming it must have sat there over seven day and they took it off the shelf now it's not at the [facility] in [place], I think the pt is confused he stated they didn't have it, can you pls send script to [facility]. T MACHINE TENDER * Koko Brand - 08/04/2023 1:53 PM CST Patient called and stated that he will be staying in [place], [place] for a while and asked that his pharmacy be changed to [facility] at [address] [place] [address] until further notice. Thank you. T MACHINE TENDER documented in this encounter Plan of Treatment Upcoming Encounters Date Type Department Care Team (Late st Contact Info) Description 08/19/2024 9:00 AM GROUT MACHINE TENDER Office Visit [facility] Medical Group Multispecialty Care - [address] [place] [address] [place] [address] [place] [address] 157 [place] [address] 12/16/2024 10:40 AM CDT Office Visit [facility]ty Care - [facility] 3 [facility], [address] [place] [address] Ramsey Oakley MD [address] [address] documented as of this encounter Visit Diagnoses Diagnosis Primary hypertension Unspecified essential hypertension documented in this encounter Additional Health Concerns Assessment Noted Time PHQ-9 Depression Total Score: 1 09/29/19 22 10:03 AM GROUT MACHINE TENDER documented as of this encounter Care Teams Joint Cutter Relationship Specialty Start Date End Date Soledad Lucas MD [address] [facility] 157 [place] [address] PCP - General INTERNAL MEDICINE 09/29/21 documented as of this encounter
--- OUTSIDE RECORDS SUMMARY | 2024-08-03 05:03 | XMS_ITS | Encounter Summary ---
Author Organization [facility] - [facility] Address [address] [place] [address]. [address] [address] Care Team Providers Care Membership Solicitor Name Role Phone Soledad Lucas MD Primary Care Provider [phone] Reason for Visit * Reason Onset Date Comments Appointment Request 01/08/2024 Referral 01/08/2024 Encounter Details Date Type Department Care Team (Late st Contact Info) Description 01/08/2024 Telephone [facility] Medical Group Multispecialty Care - [place] [address] [address] [place] [address] Soledad Lucas MD [address] [place] [address] [address] [place], [place] [phone] Appointment Request; Referral Social History Tobacco Use [...] st Contact Info) Description 08/19/2024 9:00 AM FACILITIES CLERK [facility] [place] [address] [address] [place] [address] Soledad Lucas MD [address] [place] [address] 12/16/2024 10:40 AM CDT [facility] 3 [facility] [address] [place] [address] Ramsey Oakley MD 3 [facility] [address] [place] [address] documented as of this encounter Visit Diagnoses Not on filedocumented in this encounter Additional Health Concerns Assessment Noted Time PHQ-9 Depression Total Score: 1 09/29/19 10:03 AM FACILITIES CLERK documented as of this encounter Care Teams Membership Solicitor Relationship Specialty Start Date End Date Soledad Lucas MD [address] [place] [address] PCP - General INTERNAL MEDICINE 09/29/21 documented as of this encounter
--- OUTSIDE RECORDS SUMMARY | 2024-08-03 05:03 | XMS_ITS | Encounter Summary ---
Author Organization [facility] Address [address] [place] [address]. [place], [place] [address] [place] [address] Care Team Providers Care Dish Cloth Inspector Name Role Phone Soledad Lucas MD [...] st Contact Info) Description 08/19/2024 9:00 AM TAKE OUT WAITER/WAITRESS Office Visit [facility] Medical [facility] Multispecialty Care - [place] [address] [address] [place] [address] Soledad Lucas MD [address] [place] [address] 157 [place] [address] 12/16/2024 10:40 AM CDT Office Visit [facility] Medical [facility] Multispecialty [address] [place] [address] Ramsey Oakley MD 3 [facility] [address] [place] [address] documented as of this encounter Visit Diagnoses Not on filedocumented in this encounter Additional Health Concerns Assessment Noted Time PHQ-9 Depression Total Score: 1 09/29/19 22 10:03 AM TAKE OUT WAITER/WAITRESS documented as of this encounter Care Teams Dish Cloth Inspector Relationship Specialty Start Date End Date Soledad Lucas MD [address] [address] PCP - General INTERNAL MEDICINE 09/29/21 documented as of this encounter
--- OUTSIDE RECORDS SUMMARY | 2024-08-03 05:03 | XMS_ITS | Encounter Summary ---
Author Organization [facility] - [facility] Address [address] [place] [address]. [address] [address] Care Team Providers Care Staking Press Operator Name Role Phone Soledad Lucas MD Primary Care Provider [phone] Reason for Visit * Reason Onset Date Comments Asthma 09/21/2023 Encounter Details Date Type Department Care Team (Late st Contact Info) Description 09/21/2023 Telephone [facility] Medical Group Multispecialty Care - [place] [address] [address] [place] [address] Soledad Lucas MD [address] [place] [address] 157 [place] [address] Asthma Social History Tobacco Use [...] attend on 09/22/23 and cannot come in. [place] AND RESTAURANT * Koko Brand - 09/21/2023 8:03 AM [...] his lungs . Please advise. Thank you. [place] AND RESTAURANT documented in this encounter Plan of Treatment Upcoming Encounters Date Type Department Care Team (Late st Contact Info) Description 08/19/2024 9:00 AM RETAIL AND RESTAURANT Office Visit [facility] Multispecialty Care - [place] [address] [address] [place] [address] Soledad Lucas MD [address] [place] [address] 12/16/2024 10:40 AM CDT Office Visit [facility] Multispecialty [facility] 3 [facility] [address] [place] [address] Ramsey Oakley MD 3 [facility] [address] [place] [address] documented as of this encounter Visit Diagnoses Not on filedocumented in this encounter Additional Health Concerns Assessment Noted Time PHQ-9 Depression Total Score: 1 09/29/19 22 10:03 AM RETAIL AND RESTAURANT documented as of this encounter Care Teams Staking Press Operator Relationship Specialty Start Date End Date Soledad Lucas MD [address] [place] [address] PCP - General INTERNAL MEDICINE 09/29/21 documented as of this encounter
--- OUTSIDE RECORDS SUMMARY | 2024-08-03 05:03 | XMS_ITS | Encounter Summary ---
Author Organization [facility] Address [address] [place] [address]. [place], [place] [address] [place] [address] Care Team Providers Care Analytics Manager Name Role Phone Soledad Lucas MD Primary Care Provider [phone] Reason for Visit * Reason Comments Image (SCAN) Procedure (SCAN) Lab (SCAN) Pathology (SCAN) Encounter Details Date Type Department Care Team (Late Contact Info) Description 04/24/2023 Scan [employer] INFO SRVCS Scanned, Doc Med Group Image [...] Upcoming Encounters Date Type Department Care Team ([facility] Contact Info) Description 08/19/2024 9:00 AM COMMUNITY ARTS CENTRE MANAGER Office Visit [facility] Medical Group Multispecialty Care - [place] [address] [address] [place] [address] Soledad Lucas MD [address] [place] [address] 12/16/2024 10:40 AM CDT Office Visit [facility] Medical Group Mult[facility]pecialty Care - [facility] 3 [facility] [address] [place] [address] Ramsey Oakley MD 3 [facility] [address] [place] [address] documented as of this encounter Procedures Procedure Name Priority Date/Time Associated Diagnosis Comments PATHOLOGY GENERIC (SCAN ORDER) 04/24/2023 OUTSIDE LAB (SCAN ORDER) 04/24/2023 IMAGE GENERIC 04/24/2023 PROCEDURE GENERIC (SCAN ORDER) 04/24/2023 documented in this encounter Results * PROCEDURE GENERIC (04/24/2023) 04/24/2023 [facility] Scanned SCANNING Final Resu lt * PATHOLOGY GENERIC (04/24/2023) 04/24/2023 [facility] Scanned SCANNING Final Resu lt * OUTSIDE LAB (SCAN) (04/24/2023) 04/24/2023 [facility] Scanned SCANNING Final Resu lt * IMAGE GENERIC (04/24/2023) Anatomical Region Laterality Modality Other 04/24/2023 [facility] Scanned SCANNING Final Resu lt documented in this encounter Visit Diagnoses Not on filedocumented in this encounter Additional Health Concerns Infection Onset Date Last Indicated Resolved Time COVID-19 Rule Out 09/24/2023 09/24/2023 09/24/2023 3:59 PM COMMUNITY ARTS CENTRE MANAGER Assessment Noted Time PHQ-9 Depression Total Score: 1 09/29/19 10:03 AM COMMUNITY ARTS CENTRE MANAGER documented as of this encounter Care Teams Analytics Manager Relationship Specialty Start Date End Date Soledad Lucas MD [address] [address] PCP - General INTERNAL MEDICINE 09/29/21 documented as of this encounter
--- OUTSIDE RECORDS SUMMARY | 2024-08-03 05:03 | XMS_ITS | Encounter Summary ---
Author Organization [facility] Address [address] [place] [address]. [place], [place] [address] [place] [address] Care Team Providers Care Crime Victim Specialist Name Role Phone Soledad Lucas MD Primary Care Provider [phone] Reason for Visit * Reason Comments Lab [...] (Late Contact Info) Description 08/19/2024 9:00 AM PRODUCTION CONTROL SCHEDULER Office Visit [facility] Medical Group Multispecialty Care - [place] [address] [address] [place] [address] Soledad Lucas MD [address] [place] [address] 12/16/2024 10:40 AM CDT Office Visit [facility] Medical Group Multispecialty Care - [facility] [address] [facility] [address] [place] [address] Ramsey Oakley MD [address] [facility] [address] [place] [address] documented as of this encounter Procedures Procedure Name Priority Date/Time Associated Diagnosis Comments CT GENERIC 02/10/2023 OUTSIDE LAB (SCAN ORDER) 02/10/2023 documented in this encounter Results * OUTSIDE LAB (SCAN) (02/10/2023) 02/10/2023 [email or web address] Scanned SCANNING Final Resu lt * CT GENERIC (02/10/2023) Anatomical Region Laterality Modality Other 02/10/2023 [email or web address] Scanned SCANNING Final Resu lt documented in this encounter Visit Diagnoses Not on filedocumented in this encounter Additional Health Concerns Assessment Noted Time PHQ-9 Depression Total Score: 1 09/29/19 22 10:03 AM PRODUCTION CONTROL SCHEDULER documented as of this encounter Care Teams Crime Victim Specialist Relationship Specialty Start Date End Date Soledad Lucas MD [address] [address] PCP - General INTERNAL MEDICINE 09/29/21 documented as of this encounter
--- OUTSIDE RECORDS SUMMARY | 2024-08-03 05:03 | XMS_ITS | Encounter Summary ---
Author Organization [facility] - [facility] Address [address] [place] [address]. [address] [address] Care Team Providers Care Criminal Lawyer Name Role Phone Soledad Lucas MD Primary Care Provider [phone] Reason for Visit * Reason Onset Date Comments Medication 07/19/2023 Encounter Details Date Type Department Care Team (Late st Contact Info) Description 07/19/2023 Telephone [facility] Medical Group Multispecialty Care - [place] [address] [address] [place] [address] [place] [address] [place] [address] 157 [place] [address] Medication Social History Tobacco Use [...] 07/19/2023 1:11 PM CST losartan hydrochlorothiazide refilled. TYPE OPERATOR * Koko Carie Yingy - 07/19/2023 9:59 AM CST Patient called and requested a refill of his Losartan-Hydrochlorothiazide 50- 12.5 MG tablet please.Thank you. TYPE OPERATOR documented in this encounter Plan of Treatment Upcoming Encounters Date Type Department Care Team (Late st Contact Info) Description 08/19/2024 9:00 AM MONOTYPE OPERATOR [facility] - [place] [address] [address] [place] [address] Soledad Lucas MD [address] [place] [address] 12/16/2024 10:40 AM CDT [facility] 3 [facility] [address] [place] [address] Ramsey Oakley MD 3 [facility] [address] [place] [address] documented as of this encounter Visit Diagnoses Diagnosis Primary hypertension Unspecified essential hypertension documented in this encounter Additional Health Concerns Assessment Noted Time PHQ-9 Depression Total Score: 1 09/29/19 10:03 AM MONOTYPE OPERATOR documented as of this encounter Care Teams Criminal Lawyer Relationship Specialty [place] [address] [place] [address] PCP - General INTERNAL MEDICINE 09/29/21 documented as of this encounter
--- OUTSIDE RECORDS SUMMARY | 2024-08-03 05:03 | XMS_ITS | Encounter Summary ---
Author Organization [facility] - [facility] Address [address] [place] [address]. [place], [place] [address] [place] [address] Care Team Providers Care Hoop Riveting Machine Operator Name Role Phone Soledad Lucas MD Primary Care Provider [phone] Reason for Visit * Reason Onset Date Comments Medication Problem 08/17/2023 Encounter Details Date Type Department Care Team (Late st Contact Info) Description 08/17/2023 Telephone [facility] Medical Group Multispecialty Care - [place] [address] [address] [place] [address] Soledad Lucas MD [address] [place] [address] [address] [place], [place] [id number] Medication Problem Social History Tobacco Use Types [...] refills and patient verified that he hasthem. FARM WORKER * Koko L Sunday - 08/17/2023 11:14 AM CST [...] of communication error. Please advise. Thank you. FARM WORKER documented in this encounter Plan of Treatment Upcoming Encounters Date Type Department Care Team (Late st Contact Info) Description 08/19/2024 9:00 AM EMU FARM WORKER [facility] - [place] [address] [address] [place] [address] Soledad Lucas MD [address] [place] [address] 12/16/2024 10:40 AM CDT [facility] 3 [facility] [place] [address] Ramsey Oakley MD 3 [facility] [address] [place] [address] documented as of this encounter Visit Diagnoses Not on filedocumented in this encounter Additional Health Concerns Assessment Noted Time PHQ-9 Depression Total Score: 1 09/29/19 10:03 AM EMU FARM WORKER documented as of this encounter Care Teams Hoop Riveting Machine Operator Relationship Specialty Start Date End Date Soledad Lucas MD [address] [place] [address] PCP - General INTERNAL MEDICINE 09/29/21 documented as of this encounter
--- OUTSIDE RECORDS SUMMARY | 2024-08-03 05:03 | XMS_ITS | Encounter Summary ---
Author Organization [facility] Address [address] [place] [address]. [address] [address] Care Team Providers Care Painter Spray Name Role Phone Soledad Lucas MD Primary Care Provider [phone] Reason for Referral * Consultation (Urgent) - Pending Review Specialty Diagnoses / Procedures Referred By Prasanth santillan Referred To Contact ORTHOPAEDICS Diagnoses Right shoulder pain, unspecified chronicity Procedures OFFICE/OUTPATIENT NEW LOW MDM 30-44 MINUTES OFFICE/OUTPT VISIT,NEW,LEVL IV OFFICE/OUTPT VISIT,NEW,LEVL V OFFICE/OUTPT VISIT,EST,LEVL III OFFICE/OUTPT VISIT,EST,LEVL IV OFFICE/OUTPT VISIT,EST,LEVL V Soledad Lucas MD [address] [address] Phone: tel: fax: Jude Lr MD [address] [place] [address] Phone: tel: fax: Referral ID Status Reason Start Date Expiration Date Visits Requested Visits Authorized [id number] Pending Review Specialty Services 01/05/2024 01/04/2025 1 1 Reason for Visit * Reason Onset Date Comments Pain 01/05/2024 Medication 01/05/2024 Referral 01/05/2024 Encounter Details Date Type Department Care Team (Late st Contact Info) Description 01/05/2024 Telephone [facility] Medical Group Multispecialty Care - [place] [address] [facility] [address] [place] [address] Soledad Lucas MD [address] [facility] [address] [place] [address] Pain; Medication; Referral Social History Tobacco Use [...] for patient. Follow-up with our referral center [id number] on this referral. Pain medicatio continues n refilled thanks. * Jatin Cortez - 01/05/2024 1:02 PM CDT Pt called today, he is still having pain in his right arm running running down to his finger, he stated that he would like a referral for this, also he is out of his Oxycodone, he has moved to [place] and now uses the [facility] on [address]. documented in this encounter Plan of Treatment Upcoming Encounters Date Type Department Care Team (Late st Contact Info) Description 08/19/2024 9:00 AM WATCH ENGINE OPERATOR [facility] - [place] [address] [address] [place] [address] Soledad Lucas MD [facility] [address] [address] 12/16/2024 10:40 AM CDT [facility] [address] [facility] [address] [place] [address] Ramsey Oakley MD 3 [facility] [address] [place] [address] Scheduled Referrals Name Type Priority Associated Diagnoses [...] Depression Total Score: 1 09/29/19 10:03 AM WATCH ENGINE OPERATOR documented as of this encounter Care Teams Painter Spray Relationship Specialty Start Date End Date Soledad Lucas MD [address] [place] [address] PCP - General INTERNAL MEDICINE 09/29/21 documented as of this encounter
--- OUTSIDE RECORDS SUMMARY | 2024-08-03 05:03 | XMS_ITS | Encounter Summary ---
Author Organization [facility] Address [address] [place] [address]. [place], [place] [address] [place] [address] Care Team Providers Care Macaroni Press Operator Name Role Phone Soledad Lucas MD Primary Care Provider [phone] Reason for Visit * Reason Comments Wheezing Encounter Details Date Type Department Care Team (Late st Contact Info) Description 06/02/2023 10:00 AM CDT Office Visit [facility] Medical Group Multispecialty Care - [address] [place] [address] Criss Zendejas NP Wheezing Social [...] Care Everywhere. * Asthma Discharge Instructions, Adult (Slovenian) documented in this encounter Progress Notes * Criss Zendejas, MARRIAGE AND FAMILY SOCIAL WORKER - 06/02/2023 10:00 AM CDT OFFICE ACUTE VISIT Encounter Date: 06/02/2023 Chief Complaint: 61-year-old male presents for Wheezing . HPI: Patient presents today for wheezing. Symptoms started about 5-6 days ago. Patient was seen in [place] on 05/30/2023. Chest x-ray showed no [...] Smokes MJ. ER visit on 05/31 at [facility] and given pred burst and breathing treatment. [...] 6 tablet; Refill: 0 Criss Zendejas APN, AIR BRUSH ARTIST, MARRIAGE AND FAMILY SOCIAL WORKER documented in this encounter Plan of Treatment Upcoming Encounters Date Type Department Care Team (Late st Contact Info) Description 08/19/2024 9:00 AM MEAT BONER AND SLICER [facility] [place] [address] [address] [address] [place] [address] Soledad Lucas MD [address] [place] [address] 12/16/2024 10:40 AM CDT Office Visit [facility] Multispecialty Care - [facility] [address] [facility] [place] [id number] Ramsey Oakley MD [address] [facility] [address] [place] [address] documented as of this encounter Visit Diagnoses Diagnosis Acute cough- Primary Mild intermittent asthma with acute exacerbation (HHS/HCC) Unspecified asthma, with exacerbation documented in this encounter Additional Health Concerns Assessment Noted Time PHQ-9 Depression Total Score: 1 09/29/19 22 10:03 AM MEAT BONER AND SLICER documented as of this encounter Care Teams Macaroni Press Operator Relationship Specialty Start Date End Date Soledad Lucas MD [address] [address] PCP - General INTERNAL MEDICINE 09/29/21 documented as of this encounter
--- OUTSIDE RECORDS SUMMARY | 2024-08-03 05:03 | XMS_ITS | Encounter Summary ---
Author Organization [facility] Address [address] [place] [address]. [place], [place] [address] [place] [address] Care Team Providers Care Glass Etcher Helper Name Role Phone Soledad Lucas MD Primary Care Provider [phone] Reason for Visit * Reason Comments Image [...] Contact Info) Description 08/19/2024 9:00 AM PROCESS CONTROL PROGRAMMER Office Visit [facility] Medical Group Multispecialty Care - [place] [address] [address] [address] [place] [address] Soledad Lucas MD [address] [place] [address] 157 [place] [address] 12/16/2024 10:40 AM CDT Office Visit [facility] Medical Group Multispecialty Care - [facility] [address] [facility] [address] [place] [address] Ramsey Oakley MD [address] [place] [address] documented as of this encounter Procedures Procedure [...] Rule Out 09/24/2023 09/24/2023 09/24/2023 3:59 PM PROCESS CONTROL PROGRAMMER Assessment Noted Time PHQ-9 Depression Total Score: 1 09/29/19 22 10:03 AM PROCESS CONTROL PROGRAMMER documented as of this encounter Care Teams Glass Etcher Helper Relationship Specialty Start Date End Date Soledad Lucas MD 1188 [facility] 157 [place] [address] PCP - General INTERNAL MEDICINE 09/29/21 documented as of this encounter
--- OUTSIDE RECORDS SUMMARY | 2024-08-03 05:03 | XMS_ITS | Encounter Summary ---
Author Organization [facility] Address [address] [place] [address]. [address] [address] Care Team Providers Care Shearer Screen Measurer And Trimmer Name Role Phone Soledad Lucas MD Primary Care Provider [phone] Reason for Referral * Consultation (Routine) - Pending Review Specialty Diagnoses / Procedures Referred By Prasanth santillan Referred To Contact SLEEP & RESPIRATORY CARE Diagnoses Moderate persistent asthma without complication (HHS/HCC) Procedures OFFICE/OUTPATIENT NEW LOW MDM 30-44 MINUTES OFFICE/OUTPT VISIT,NEW,LEVL IV OFFICE/OUTPT VISIT,NEW,LEVL V OFFICE/OUTPT VISIT,EST,LEVL III OFFICE/OUTPT VISIT,EST,LEVL IV OFFICE/OUTPT VISIT,EST,LEVL V Soledad Lucas MD [facility] [address] [address] Phone: tel: fax: [facility] Medical Group [facility] [address] Phone: tel: fax: Referral ID Status Reason Start Date Expiration Date Visits Requested Visits Authorized [id number] Pending Review Specialty Services 01/26/2024 10/31/2024 99 99 TEGIC PARTNER DEVELOPMENT MANAGER Reason for Visit * Reason Comments Follow Up Pt is here with c/o pain and numbness in right arm and breathing issues Asthma Encounter Details Date Type Department Care Team (Latest Contact Info) Description 10/02/2023 1:00 PM STRATEGIC PARTNER DEVELOPMENT MANAGER Office Visit [facility] Medical Group Multispecialty Care - [place] [address] [place] [address] [address] [place] [address] Soledad Lucas MD 1188 [facility] 157 [place] [address] Follow Up (Pt is here with c/o [...] Comments Blood Pressure 141/82 10/02/2023 1:17 PM STRATEGIC PARTNER DEVELOPMENT MANAGER Pulse 75 10/02/2023 1:07 PM STRATEGIC PARTNER DEVELOPMENT MANAGER Temperature 36.3 ??C (97.3 ??F) 10/02/2023 1:07 PM CS T Respiratory Rate 18 10/02/2023 1:07 PM STRATEGIC PARTNER DEVELOPMENT MANAGER Oxygen Saturation 99% 10/02/2023 1:07 PM STRATEGIC PARTNER DEVELOPMENT MANAGER Inhaled Oxygen Concentration - - Weight 102.4 kg (225 lb 12.8 oz) 10/02/2023 1:07 PM STRATEGIC PARTNER DEVELOPMENT MANAGER Height 185.4 cm (6' 1 ) 10/02/2023 1:07 PM STRATEGIC PARTNER DEVELOPMENT MANAGER Body Mass Index 29.79 10/02/2023 1:07 PM STRATEGIC PARTNER DEVELOPMENT MANAGER documented in this encounter Patient Instructions * Patient Instructions* Soledad Lucas MD - 10/02/2023 1:00 PM STRATEGIC PARTNER DEVELOPMENT MANAGER Follow up in 4 weeks for your right shoulder and numbness and blood pressure follow up. Please work on getting your RSV vaccine from any local pharmacy. Referral call You will receive a call from our referral team ([phone]) regarding your referral. Insurance authorization Our digital strategy specialist will contact your insurance company to get prior authorization if needed. Appointment If you have been referred to an [facility] hospital or [facility] Medical Group provider, the hospital or clinic you have been referred to will call you to schedule your appointment. For those outside services of [facility], our referral expects will be in contact by phone or mail regarding your recently placed referral. If you have not heard anything from your referral in about 1 week, please call [phone]. Working with insurance companies can be cumbersome, but we are dedicated to processing your referral timely and efficiently. Please know you have a caring and competent team working on your behalf [facility] of care as quickly as possible. TEGIC PARTNER DEVELOPMENT MANAGER TEGIC PARTNER DEVELOPMENT MANAGER * Attachments The following attachments cannot be sent through Care Everywhere. * Asthma Discharge Instructions, Adult (Uzbek) documented in this encounter Progress Notes * [...] mouth nightly at bedtime. 90 tablet 1 Pgkzwzy-Rsuifvgocce-Rlhdshrtjg (BREZTRI AEROSPHERE) 160-9-4.8 MCG/ACT Aerosol Inhale 2 [...] CT(R) 1. Moderate persistent asthma without complication ([facility]) J45.40 UNCOMPLICATED MODERATE PERSISTENT ASTHMA Nrhytxi-Anjvcehgluj-Yrybjzpkgg (BREZTRI AEROSPHERE) 160-9-4.8 MCG/ACT Aerosol montelukast (SINGULAIR) 10 MG tablet Ambulatory referral to Pulmonology ([facility]) 2. 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 Moderate persistent asthma without complication ([facility]) -Start Yhzfani-Plqyuffrcrt-Qbcssigfsg (BREZTRI AEROSPHERE) 160-9-4.8 MCG/ACT Aerosol; Inhale 2 puffs into the lungs 2 (two) times daily. Dispense: 10.7 g; Refill: 5 -Add montelukast (SINGULAIR) 10 MG tablet; Take 1 tablet (10 mg total) by mouth nightly at bedtime.Dispense: 90 tablet; Refill: 1 - Ambulatory referral to Pulmonology ([facility]) -Uncontrolled. Uncontrolled with Breo inhaler. Changing inhalers [...] the day of the encounter. This includes bqde-st-kovm and lhy-qabo-iw-face time I provided on the day of [...] was at least in part performed using [employer] (Closed)on speak and there may be some inherent flaws in this block out machine operator due to the nature of this program. Soledad Lucas MD Internal Medicine [facility], [facility]. TEGIC PARTNER DEVELOPMENT MANAGER documented in this encounter Plan of Treatment Upcoming Encounters Date Type Department Care Team (Late st Contact Info) Description 08/19/2024 9:00 AM STRATEGIC PARTNER DEVELOPMENT MANAGER [facility] [place] [address] [address] [address] [place] [address] Soledad Lucas MD [address] [place] [address] 157 [place] [address] 12/16/2024 10:40 AM CDT [facility] [address] [facility] [place] [phone] Ramsey Oakley MD [address] [facility] [address] [place] [address] Scheduled Referrals Name Type Priority Associated Diagnoses Orde r Schedule Ambulatory referral to Pulmonology ([facility]) Referral Routine Moderate persistent asthma without complication (HHS/HCC) Ordered: 10/02/2023 documented as of this encounter Visit Diagnoses Diagnosis Moderate persistent asthma without complication (HHS/HCC)- Primary Unspecified asthma Entrapment of right ulnar nerve documented in this encounter Additional Health Concerns Assessment Noted Time PHQ-9 Depression Total Score: 1 09/29/19 22 10:03 AM STRATEGIC PARTNER DEVELOPMENT MANAGER documented as of this encounter Care Teams Shearer Screen Measurer And Trimmer Relationship Specialty Start Date End Date Soledad Lucas MD [address] [place] [address] PCP - General INTERNAL MEDICINE 09/29/21 documented as of this encounter
--- OUTSIDE RECORDS SUMMARY | 2024-08-03 05:03 | XMS_ITS | Encounter Summary ---
Author Organization [facility] Address [address] [place] [address]. [place], [place] [address] [place] [address] Care Team Providers Care Skeiner Name Role Phone Soledad Lucas MD Primary Care Provider [phone] Reason for Visit * Reason Onset Date Comments Follow Up Call 06/19/2023 Encounter Details Date Type Department Care Team (Late st Contact Info) Description 06/19/[address] [facility] Medical Group Multispecialty Care - [place] [address] [address] [address] [place] [address] [place] [address] [place] [address] 157 [place] [address] Follow Up Call Social History [...] per pharmacy. Patient aware to go and slate picker medication. He tells me he is wheezing. Encouraged to go to the urgent care if wheezing worsening. He can schedule an acute visit if there is an open spot on my schedule. All questions answered and patient grateful for call. TAL SOLUTION ARCHITECT documented in this encounter Plan of Treatment Upcoming Encounters Date Type Department Care Team (Late st Contact Info) Description 08/19/2024 9:00 AM DIGITAL SOLUTION ARCHITECT [facility] [place] [address] [address] [address] [place] [address] Soledad Lucas MD [address] [place] [address] 12/16/2024 10:40 AM CDT [facility] [address] [facility] [place] [address] Ramsey Oakley MD 3 [facility] [address] [place] [address] documented as of this encounter Visit Diagnoses Not on filedocumented in this encounter Additional Health Concerns Assessment Noted Time PHQ-9 Depression Total Score: 1 09/29/19 10:03 AM DIGITAL SOLUTION ARCHITECT documented as of this encounter Care Teams Skeiner Relationship Specialty Start Date End Date Soledad Lucas MD [address] [place] [address] PCP - General INTERNAL MEDICINE 09/29/21 documented as of this encounter
--- OUTSIDE RECORDS SUMMARY | 2024-08-03 05:03 | XMS_ITS | Encounter Summary ---
Author Organization [facility] Address [address] [place] [address]. [place], [place] [address] [place] [address] Care Team Providers Care Visual Display Manager Name Role Phone Soledad Lucas MD Primary Care Provider [phone] Reason for Referral * Surgical (Routine) - New Request Specialty Diagnoses / Procedures Referred By Prasanth santillan Referred To Contact NEUROSURGERY Diagnoses Cervical radiculopathy Procedures OFFICE/OUTPATIENT NEW LOW MDM 30-44 MINUTES OFFICE/OUTPT VISIT,NEW,LEVL IV OFFICE/OUTPT VISIT,NEW,LEVL V OFFICE/OUTPT VISIT,EST,LEVL III OFFICE/OUTPT VISIT,EST,LEVL IV OFFICE/OUTPT VISIT,EST,LEVL V Soledad Lucas MD 1188 [facility] [address] [place] [address] Phone: tel: fax: [facility] Medical Group Multispecialty Care - [facility] [address] [facility], [address] [place] [address] Phone: tel: fax: Referral ID Status Reason Start Date Expiration Date Visits Requested Visits Authorized [id number] New Request Specialty Services 01/09/2024 02/08/2025 1 1 Reason for Visit * Reason Onset Date Comments Referral 01/09/2024 Encounter Details Date Type Department Care Team ([facility] Contact Info) Description 01/09/2024 Telephone [facility] Mult[facility]pecialty [facility] - [place] [address] [address] [address] [place] [address] Soledad Lucas MD 1188 [facility] 157 [place] [address] Referral Social History Tobacco Use Types Packs/Day [...] (Late Contact Info) Description 08/19/2024 9:00 AM MILLWRIGHT APPRENTICE Office Visit [facility] Multispecialty [facility] - [place] [address] [address] [place] [address] Soledad Lucas MD 1188 [facility] 157 [place] [address] 12/16/2024 10:40 AM CDT Office Visit [facility]pec[facility]ty [facility] [address] [facility] [place] [address] Ramsey Oakley MD [address] [facility] [address] [place] [address] Scheduled Referrals Name Type Priority Associated Diagnoses Orde r Schedule Ambulatory referral to Neurosurgery (OTHER) Referral Routine Cervical radiculopathy Ordered: 01/09/2024 documented as of this encounter Visit Diagnoses Diagnosis Cervical radiculopathy- Primary Brachial neuritis or radiculitis nos documented in this encounter Additional Health Concerns Assessment Noted Time PHQ-9 Depression Total Score: 1 09/29/19 22 10:03 AM MILLWRIGHT APPRENTICE documented as of this encounter Care Teams Visual Display Manager Relationship Specialty Start Date End Date Soledad Lucas MD 1188 [facility] 157 [place] [address] PCP - General INTERNAL MEDICINE 09/29/21 documented as of this encounter
--- OUTSIDE RECORDS SUMMARY | 2024-08-03 05:03 | XMS_ITS | Encounter Summary ---
Author Organization [facility] Address [address] [place] [address]. [address] [address] Care Team Providers Care Automotive Generator Repairer Name Role Phone Soledad Lucas MD Primary Care Provider [phone] Reason for Visit * Reason Onset Date Comments Medication 08/15/2023 Encounter Details Date Type Department Care Team (Late st Contact Info) Description 08/15/2023 Telephone [facility] Medical Group Multispecialty Care - [place] [address] [address] [address] [place] [address] Soledad Lucas MD [address] [place] [address] 157 [place] [address] Medication Social History Tobacco Use [...] of his BP Medications be sent to: [address] [address] [place] documented in this encounter Plan of Treatment Upcoming Encounters Date Type Department Care Team (Late st Contact Info) Description 08/19/2024 9:00 AM TEASELER [facility] [place] [address] [address] [place] [address] [place] [address] [place] [address] 12/16/2024 10:40 AM CDT [facility] - [facility] [address] [facility] [place] [address] Ramsey Oakley MD 3 [facility] [address] [place] [address] documented as of this encounter Visit Diagnoses Diagnosis Primary hypertension Unspecified essential hypertension documented in this encounter Additional Health Concerns Assessment Noted Time PHQ-9 Depression Total Score: 1 09/29/19 10:03 AM TEASELER documented as of this encounter Care Teams Automotive Generator Repairer Relationship Specialty Start Date End Date Soledad Lucas MD [address] [place] [address] PCP - General INTERNAL MEDICINE 09/29/21 documented as of this encounter
--- OUTSIDE RECORDS SUMMARY | 2024-08-03 05:03 | XMS_ITS | Encounter Summary ---
Author Organization [facility] Address [address] [place] [address]. [place], [place] [address] [place] [address] Care Team Providers Care Concrete Pump Operator Helper Name Role Phone Soledad Lucas MD Primary Care Provider [phone] Encounter Details Date Type Department Care Team [...] st Contact Info) Description 08/19/2024 9:00 AM MOLD DUMPER Office Visit [facility] Medical [facility] Multispecialty Care - [place] [address] [address] [address] [place] [address] Soledad Lucas MD [address] [place] [address] 157 [place] [address] 12/16/2024 10:40 AM CDT Office Visit [facility] Medical [facility] Multispecialty [address] [place] [address] Ramsey Oakley MD 3 [facility] [address] [place] [address] documented as of this encounter Visit Diagnoses Not on filedocumented in this encounter Additional Health Concerns Infection Onset Date Last Indicated Resolved Time COVID-19 Rule Out 09/24/2023 09/24/2023 09/24/2023 3:59 PM MOLD DUMPER Assessment Noted Time PHQ-9 Depression Total Score: 1 09/29/19 10:03 AM MOLD DUMPER documented as of this encounter Care Teams Concrete Pump Operator Helper Relationship Specialty Start Date End Date Soledad Lucas MD 1188 [facility] [address] [place] [address] PCP - General INTERNAL MEDICINE 09/29/21 documented as of this encounter
--- OUTSIDE RECORDS SUMMARY | 2024-08-03 05:03 | XMS_ITS | Encounter Summary ---
Author Organization [facility] Address [address] [place] [address]. [place], [place] [address] [place] [address] Care Team Providers Care Line Up Worker Name Role Phone Soledad Lucas MD Primary Care Provider [phone] Encounter Details Date Type Department Care Team [...] st Contact Info) Description 08/19/2024 9:00 AM DYNAMICS AX TECHNICAL ARCHITECT Office Visit [facility] Medical [facility] Multispecialty [place] [address] [address] [place] [address] Soledad Lucas MD [address] [place] [address] 157 [place] [address] 12/16/2024 10:40 AM CDT Office Visit [facility] Medical Group Multispecialty Care - [facility] 3 [facility] [place] [address] Ramsey Oakley MD 3 [facility] [address] [place] [address] documented as of this encounter Visit Diagnoses Not on filedocumented in this encounter Additional Health Concerns Infection Onset Date Last Indicated Resolved Time COVID-19 Rule Out 09/24/2023 09/24/2023 09/24/2023 3:59 PM DYNAMICS AX TECHNICAL ARCHITECT Assessment Noted Time PHQ-9 Depression Total Score: 1 09/29/19 22 10:03 AM DYNAMICS AX TECHNICAL ARCHITECT documented as of this encounter Care Teams Line Up Worker Relationship Specialty Start Date End Date Soledad Lucas MD [address] [address] PCP - General INTERNAL MEDICINE 09/29/21 documented as of this encounter
--- OUTSIDE RECORDS SUMMARY | 2024-08-03 05:03 | XMS_ITS | Encounter Summary ---
Author Organization [facility] Address [address] [place] [address]. [place], [place] [address] [place] [address] Care Team Providers Care Assistant Tennis Coach Name Role Phone Soledad Lucas MD Primary Care Provider [phone] Reason for Visit * Reason Comments Lab [...] st Contact Info) Description 08/19/2024 9:00 AM COMMERCIAL ROOFING ESTIMATOR Office Visit [facility] Medical Group Multispecialty Care - [place] [address] [address] [place] [address] Soledad Lucas MD [address] [place] [address] [address] [place] [address] 12/16/2024 10:40 AM CDT Office Visit [facility] Medical Group Multispecialty Care - [facility] [address] [facility] [address] [place] [address] Ramsey Oakley MD [address] [place] [address] documented as of this encounter Procedures Procedure [...] Rule Out 09/24/2023 09/24/2023 09/24/2023 3:59 PM COMMERCIAL ROOFING ESTIMATOR Assessment Noted Time PHQ-9 Depression Total Score: 1 09/29/19 10:03 AM COMMERCIAL ROOFING ESTIMATOR documented as of this encounter Care Teams Assistant Tennis Coach Relationship Specialty Start Date End Date Soledad Lucas MD 1188 [facility] 157 [place] [address] PCP - General INTERNAL MEDICINE 09/29/21 documented as of this encounter
--- OUTSIDE RECORDS SUMMARY | 2024-08-03 05:03 | XMS_ITS | Encounter Summary ---
Author Organization [facility] Address [address] [place] [address]. [place], [place] [address] [place] [address] Care Team Providers Care Pattern Puncher Name Role Phone Soledad Lucas MD Primary Care Provider [phone] Encounter Details Date Type Department Care Team [...] Contact Info) Description 08/19/2024 9:00 AM RUBBER GOODS FINISHER Office Visit [facility] Multispecialty Care - [place] [address] [address] [place] [address] Soledad Lucas MD [address] [place] [address] 157 [place] [address] 12/16/2024 10:40 AM CDT Office Visit [facility] Multispecialty [address] [place] [address] Ramsey Oakley MD [address] [facility] [address] [place] [address] documented as of this encounter Visit Diagnoses Not on filedocumented in this encounter Additional Health Concerns Assessment Noted Time PHQ-9 Depression Total Score: 1 09/29/19 22 10:03 AM RUBBER GOODS FINISHER documented as of this encounter Care Teams Pattern Puncher Relationship Specialty Start Date End Date Soledad Lucas MD [address] [address] PCP - General INTERNAL MEDICINE 09/29/21 documented as of this encounter
--- OUTSIDE RECORDS SUMMARY | 2024-08-03 05:03 | XMS_ITS | Encounter Summary ---
Author Organization [facility] - [facility] Address [address] [place] [address]. [address] [address] Care Team Providers Care Editorial Manager Name Role Phone Soledad Lucas MD Primary Care Provider [phone] Reason for Visit * Reason Onset Date Comments Referral 03/27/2023 Encounter Details Date Type Department Care Team (Late st Contact Info) Description 03/27/2023 Telephone [facility] Mult[facility]pecialty Care - [address] [place] [address] Soledad Lucas MD [address] [place] [address] [address] [place] [address] Referral Social History Tobacco Use [...] 03/28/2023 and needs insurance referral. Fax to [phone]. Diagnosis code M17.12 ad Z47.89 documented in this encounter Plan of Treatment Upcoming Encounters Date Type Department Care Team (Late st Contact Info) Description 08/19/2024 9:00 AM DIRECTOR OF GRADUATE MEDICAL EDUCATION [facility] - [address] [address] [address] [place] [address] [place] [address] [place] [address] 12/16/2024 10:40 AM CDT [facility] - [facility] [address] [facility] [place] [address] Ramsey Oakley MD [address] [facility] [address] [place] [address] documented as of this encounter Visit Diagnoses Not on filedocumented in this encounter Additional Health Concerns Assessment Noted Time PHQ-9 Depression Total Score: 1 09/29/19 10:03 AM DIRECTOR OF GRADUATE MEDICAL EDUCATION documented as of this encounter Care Teams Editorial Manager Relationship Specialty [place] [address] [place] [address] PCP - General INTERNAL MEDICINE 09/29/21 documented as of this encounter
--- OUTSIDE RECORDS SUMMARY | 2024-08-03 05:03 | XMS_ITS | Encounter Summary ---
Author Organization [facility] Address [address] [place] [address]. [place], [place] [address] [place] [address] Care Team Providers Care Quality Consultant Name Role Phone Soledad Lucas MD Primary Care Provider [phone] Reason for Referral * Consultation (Urgent) - Closed Specialty Diagnoses / Procedures Referred By Prasanth santillan Referred To Contact ORTHOPAEDICS Diagnoses Orthopedic aftercare Procedures OFFICE/OUTPATIENT NEW LOW MDM 30-44 MINUTES OFFICE/OUTPT VISIT,NEW,LEVL IV OFFICE/OUTPT VISIT,NEW,LEVL V OFFICE/OUTPT VISIT,EST,LEVL III OFFICE/OUTPT VISIT,EST,LEVL IV OFFICE/OUTPT VISIT,EST,LEVL V Soledad Lucas MD [address] [facility] 157 [place] [address] Phone: tel: fax: [facility] [address] [facility] 162 [facility] 10 [place] [address] Phone: tel:[phone] fax: Referral ID Status Reason Start Date Expiration Date V isits Requested Visits Authorized [id number] Closed Specialty Services 05/15/2023 05/15/2024 99 99 Scheduling Instructions Urgent referral needed to [facility]. Patient has an appointment on 05/15/2023. Thank you. Reason for Visit * Reason Onset Date Comments Orders 05/15/2023 Encounter Details Date Type Department Care Team (Late st Contact Info) Description 05/15/[address] [facility] - [address] [address] [address] [place] [address] Soledad Lucas MD [facility] [address] [address] Orders Social History Tobacco Use Types Packs/Day [...] Contact Info) Description 08/19/2024 9:00 AM ELECTRONIC PAGINATION SYSTEM OPERATOR [facility] [address] [address] [address] [place] [address] Soledad Lucas MD [address] [address] 12/16/2024 10:40 AM CDT [facility] - [address] [place] [address] Ramsey Oakley MD 3 [facility] [address] [place] [address] Scheduled Referrals Name Type Priority Associated Diagnoses Orde r Schedule Ambulatory referral to Orthopedics (OTHER) Referral Routine Orthopedic aftercare Ordered: 05/15/2023 documented as of this encounter Visit Diagnoses Diagnosis Orthopedic aftercare- Primary Unspecified orthopedic aftercare documented in this encounter Additional Health Concerns Assessment Noted Time PHQ-9 Depression Total Score: 1 09/29/19 22 10:03 AM ELECTRONIC PAGINATION SYSTEM OPERATOR documented as of this encounter Care Teams Quality Consultant Relationship Specialty Start Date End Date Soledad Lucas MD [address] [address] PCP - General INTERNAL MEDICINE 09/29/21 documented as of this encounter
--- OUTSIDE RECORDS SUMMARY | 2024-08-03 05:03 | XMS_ITS | Encounter Summary ---
Author Organization [facility] - [facility] Address [address] [place] [address]. [address] [address] Care Team Providers Care Tap Grinder Name Role Phone Soledad Lucas MD Primary Care Provider [phone] Reason for Visit * Reason Onset Date Comments Medication 03/17/2023 Encounter Details Date Type Department Care Team (Late st Contact Info) Description 03/17/2023 Telephone [facility] Medical Group Multispecialty Care - [address] [address] [address] [place] [address] Soledad Lucas MD [address] [place] [address] 157 [place] [address] Medication Social History Tobacco Use [...] st Contact Info) Description 08/19/2024 9:00 AM EXTRUSION PRESS ADJUSTER [facility] [address] [address] [address] [place] [address] [place] [address] [place] [address] 157 [place] [address] 12/16/2024 10:40 AM CDT Office Visit [facility] Care - [facility] [address] [facility] [place] [address] Ramsey Oakley MD 3 [facility] [address] [place] [address] documented as of this encounter Visit Diagnoses Diagnosis Primary hypertension Unspecified essential hypertension Cervical radiculopathy Brachial neuritis or radiculitis nos Chronic bilateral low back pain with left-sided sciatica documented in this encounter Additional Health Concerns Assessment Noted Time PHQ-9 Depression Total Score: 1 09/29/19 22 10:03 AM EXTRUSION PRESS ADJUSTER documented as of this encounter Care Teams Tap Grinder Relationship Specialty Start Date End Date Soledad Lucas MD [address] [address] PCP - General INTERNAL MEDICINE 09/29/21 documented as of this encounter
--- OUTSIDE RECORDS SUMMARY | 2024-08-03 05:03 | XMS_ITS | Encounter Summary ---
Author Organization [facility] Address [address] [place] [address]. [place], [place] [address] [place] [address] Care Team Providers Care Pipeline Welder Name Role Phone Soledad Lucas MD Primary Care Provider [phone] Encounter Details Date Type Department Care Team [...] st Contact Info) Description 08/19/2024 9:00 AM GLASS MOLD REPAIRER Office Visit [facility] Medical [facility] Multispecialty Care - [address] [address] [address] [place] [address] Soledad Lucas MD [address] [place] [address] 157 [place] [address] 12/16/2024 10:40 AM CDT Office Visit [facility] Medical [facility] Multispecialty [address] [place] [address] Ramsey Oakley MD [address] [facility] [address] [place] [address] documented as of this encounter Visit Diagnoses Not on filedocumented in this encounter Additional Health Concerns Assessment Noted Time PHQ-9 Depression Total Score: 1 09/29/19 22 10:03 AM GLASS MOLD REPAIRER documented as of this encounter Care Teams Pipeline Welder Relationship Specialty Start Date End Date Soledad Lucas MD [address] [address] PCP - General INTERNAL MEDICINE 09/29/21 documented as of this encounter
--- OUTSIDE RECORDS SUMMARY | 2024-08-03 05:03 | XMS_ITS | Encounter Summary ---
Author Organization [facility] - [facility] Address [address] [place] [address]. [place], [place] [address] [place] [address] Care Team Providers Care Peoplesoft Name Role Phone Soledad Lucas MD Primary Care Provider [phone] Reason for Visit * Reason Onset Date Comments Prior Authorization 01/17/2024 Encounter Details Date Type Department Care Team (Late st Contact Info) Description 01/17/2024 Telephone [facility] Medical Group Multispecialty Care - [address] [address] [address] [place] [address] Soledad Lucas MD [address] [place] [address] [address] [place], [place] [id number] Prior Authorization Social History Tobacco Use Types [...] st Contact Info) Description 08/19/2024 9:00 AM BOOM CAT OPERATOR [facility] - [address] [address] [address] [place] [address] Soledad Lucas MD [address] [place] [address] 12/16/2024 10:40 AM CDT Office Visit [facility] [address] [facility] [place] [address] Ramsey Oakley MD 3 [facility] [address] [place] [address] documented as of this encounter Visit Diagnoses Not on filedocumented in this encounter Additional Health Concerns Assessment Noted Time PHQ-9 Depression Total Score: 1 09/29/19 22 10:03 AM BOOM CAT OPERATOR documented as of this encounter Care Teams Peoplesoft Relationship Specialty Start Date End Date Soledad Lucas MD [address] [place] [address] PCP - General INTERNAL MEDICINE 09/29/21 documented as of this encounter
--- OUTSIDE RECORDS SUMMARY | 2024-08-03 05:03 | XMS_ITS | Encounter Summary ---
Author Organization [facility] Address [address] [place] [address]. [place], [place] [address] [place] [address] Care Team Providers Care Arch Cushion Skiving Machine Operator Name Role Phone Soledad Lucas MD Primary Care Provider [phone] Reason for Visit * Reason Comments Lab [...] Contact Info) Description 08/19/2024 9:00 AM LEAD PRINTER Office Visit [facility] Medical Group Multispecialty Care - [address] [address] [address] [place] [address] Soledad Lucas MD [address] [place] [address] [address] [place] [address] 12/16/2024 10:40 AM CDT Office Visit [facility] Medical Group Multispecialty Care - [facility] [address] [facility] [place] [address] Ramsey Oakley MD [address] [place] [address] documented as of this encounter Procedures Procedure [...] Rule Out 09/24/2023 09/24/2023 09/24/2023 3:59 PM LEAD PRINTER Assessment Noted Time PHQ-9 Depression Total Score: 1 09/29/19 10:03 AM LEAD PRINTER documented as of this encounter Care Teams Arch Cushion Skiving Machine Operator Relationship Specialty Start Date End Date Soledad Lucas MD [address] [facility] [address] [place] [address] PCP - General INTERNAL MEDICINE 09/29/21 documented as of this encounter
--- OUTSIDE RECORDS SUMMARY | 2024-08-03 05:03 | XMS_ITS | Encounter Summary ---
Author Organization [facility] Address [address] [place] [address]. [place], [place] [address] [place] [address] Care Team Providers Care Equipment Maint Tech Name Role Phone Soledad Lucas MD Primary Care Provider [phone] Reason for Visit * Reason Comments Image [...] st Contact Info) Description 08/19/2024 9:00 AM SPAR MACHINE OPERATOR Office Visit [facility] Medical Group Multispecialty Care - [place] [address] [address] [address] [place] [address] Soledad Lucas MD [address] [place] [address] [address] [place] [address] 12/16/2024 10:40 AM CDT Office Visit [facility] Medical Group Multispecialty Care - [facility] [address] [facility] [address] [place] [address] Ramsey Oakley MD [address] [place] [address] documented as of this encounter Procedures Procedure [...] Rule Out 09/24/2023 09/24/2023 09/24/2023 3:59 PM SPAR MACHINE OPERATOR Assessment Noted Time PHQ-9 Depression Total Score: 1 09/29/19 22 10:03 AM SPAR MACHINE OPERATOR documented as of this encounter Care Teams Equipment Maint Tech Relationship Specialty Start Date End Date Soledad Lucas MD 118[address] [facility] 157 [place] [address] PCP - General INTERNAL MEDICINE 09/29/21 documented as of this encounter
--- OUTSIDE RECORDS SUMMARY | 2024-08-03 05:03 | XMS_ITS | Encounter Summary ---
Author Organization [facility] Address [address] [place] [address]. [place], [place] [address] [place] [address] Care Team Providers Care Tmh Teacher Name Role Phone Soledad Lucas MD Primary Care Provider [phone] Reason for Visit * Reason Comments Image [...] st Contact Info) Description 08/19/2024 9:00 AM CATH LAB TECH Office Visit [facility] Medical Group Multispecialty Care - [place] [address] [address] [address] [place] [address] Soledad Lucas MD [address] [place] [address] 157 [place] [address] 12/16/2024 10:40 AM CDT Office Visit [facility] Medical Group Mult[facility]pecialty Care - [facility] [address] [facility] [address] [place] [address] Ramsey Oakley MD [address] [place] [address] documented as of this encounter Procedures Procedure [...] Rule Out 09/24/2023 09/24/2023 09/24/2023 3:59 PM CATH LAB TECH Assessment Noted Time PHQ-9 Depression Total Score: 1 09/29/19 22 10:03 AM CATH LAB TECH documented as of this encounter Care Teams Tmh Teacher Relationship Specialty Start Date End Date Soledad Lucas MD 118[address] [facility] 157 [place] [address] PCP - General INTERNAL MEDICINE 09/29/21 documented as of this encounter
--- OUTSIDE RECORDS SUMMARY | 2024-08-03 05:03 | XMS_ITS | Encounter Summary ---
Author Organization [facility] Address [address] [place] [address]. [place], [place] [address] [place] [address] Care Team Providers Care Lead Principal Technical Architect Name Role Phone Soledad Lucas MD Primary Care Provider [phone] Reason for Visit * Reason Comments Shortness Of Breath Encounter Details Date Type Department Care Team (Late st Contact Info) Description 09/24/2023 10:34 AM BLOCK INSPECTOR - 09/24/2023 12:40 PM [facility] Emergency [facility] Emergency Room [place], [place] [address] Gamal Cisneros, HERO [address] [place] [address] 990771 Shortness Of Breath Discharge Disposition: Home or [...] Comments Blood Pressure 184/98 09/24/2023 10:17 AM BLOCK INSPECTOR Pulse 88 09/24/2023 10:17 AM BLOCK INSPECTOR Temperature 35.9 ??C (96.6 ??F) 09/24/2023 10:[address] Respiratory Rate 22 09/24/2023 10:17 AM BLOCK INSPECTOR Oxygen Saturation 98% 09/24/2023 10:17 AM BLOCK INSPECTOR Inhaled Oxygen Concentration - - Weight 102.1 kg (225 lb) 09/24/2023 10:17 AM BLOCK INSPECTOR Height 185.4 cm (6' 1 ) 09/24/2023 10:17 AM BLOCK INSPECTOR Body Mass Index 29.69 09/24/2023 10:17 AM BLOCK INSPECTOR documented in this encounter Discharge Instructions * Attachments The following attachments cannot be sent through Care Everywhere. * Asthma Discharge Instructions, Adult (Italian) documented in this encounter Medications at Time [...] condition. Patient verbalized understanding of the dischargeinstructions. K INSPECTOR * Sadie Grimm RN - 09/24/2023 10:20 AM CST Ambulatory to triage with patient account analyst increased SOB x1 week. He reports hx of asthma and having a cough intermittently from last week. Bilateral wheezing throughout. Denies any pain. K INSPECTOR * Gamal Cisneros NP - 09/24/2023 10:20 AM CST [place] ER/CC Encounter Chief Complaint Chief Complaint [...] of 09/24/23 ECG [address] [facility] Test Date: 2023-09-24 Pat Name: JULIET GRIMM Department: 41 Room: Gender: Male Mineral Economist: : 1961-08-14 Requested By: AGMAL CISNEROS Order Number: [id number] Reading MD: Measurements Intervals [place] Rate: 74 P: 69 [place]: 207 QRS: 59 QRSD: 73 T: 69 QT: 354 QTc: 394 Interpretive Statements SINUS RHYTHM No previous ECG available for comparison LABORATORY STUDIES: No results found for this visit on 09/24/23. IMAGING STUDIES XR CHEST PA+LAT Final Result by User, [id number] (09/24 1126) Procedure(s): XR CHEST PA+LAT Date [...] days. Qty: 6 tablet, Refills: 0 Class: Grubstercribe Pharmacy: [id number] [place] [address] [place] [facility] [address] (Ph #: [phone]) predniSONE (DELTASONE) 20 MG tablet Take 2 tablets (40 mg total) by mouth daily for 5 days. Qty: 10 tablet, Refills: 0 Class: Eprescribe Pharmacy: [id number] - [place] [id number] [employer] [facility] [address] (Ph #: [phone]) Disposition: Discharge Follow-Up: Soledad Lucas MD [address] [place] [address] [phone] In 3 days As needed Gamal Cisneros NP 09/24/2023 Gamal Cisneros NP 09/24/23 1220 Cosigned by Juan Francisco Sanderson MD at 09/24/2023 12:41 PM BLOCK INSPECTOR K INSPECTOR K INSPECTOR documented in this encounter Plan of Treatment Upcoming Encounters Date Type Department Care Team (Late st Contact Info) Description 08/19/2024 9:00 AM BLOCK INSPECTOR Office Visit [facility] Multispecialty Care - [place] [address] [address] [place], [place] [address] Soledad Lucas MD [facility] [address] [id number] 12/16/2024 10:40 AM CDT Office Visit [facility] Multispecialty Care - [facility] [address] [facility] [place] [address] Ramsey Oakley MD 3 [facility] [address] [place] [address] documented as of this encounter Procedures Procedure Name Priority Date/Time Associated Diagnosis Comments XR CHEST PA+LAT STAT 09/24/2023 11:24 AM BLOCK INSPECTOR CORONAVIRUS (COVID 19) STAT 10:57 AM BLOCK INSPECTOR RAPID STREP A STAT 09/24/2023 10:57 AM BLOCK INSPECTOR INFLUENZA A & B STAT 09/24/2023 10:57 AM BLOCK INSPECTOR ECG 12-LEAD Routine 09/24/2023 10:42 AM BLOCK INSPECTOR COMPREHENSIVE METABOLIC PANEL STAT 09/24/2023 10:38 AM BLOCK INSPECTOR CBC W/DIFF AUTOMATED STAT 09/24/2023 10:38 AM BLOCK INSPECTOR documented in this encounter Results * XR CHEST PA+LAT (09/24/2023 11:24 AM BLOCK INSPECTOR) Anatomical Region Laterality Modality Chest Radiographic Liv ging 09/24/2023 11:2 5 AM BLOCK INSPECTOR Impressions 09/24/2023 11:26 AM BLOCK INSPECTOR IMPRESSION: No acute cardiopulmonary abnormality. Referred By: ?? Interpreted By: Lauro Beach MD, 09/24/2023 11:25 AM Narrative 09/24/2023 11:26 AM BLOCK INSPECTOR Procedure(s): XR CHEST PA+LAT Date of service: [...] * RAPID STREP A (09/24/2023 10:57 AM BLOCK INSPECTOR) SPECIMEN TYPE THROAT 09/24/2023 12:32 PM BLOCK INSPECTOR [facility] RAPID STREP TEST NEGATIVE NEGATIVE 09/24/2023 3:59 PM BLOCK INSPECTOR [facility] STRUCTURE OF ANTERIOR PORTION OF NECK / Unknown 09/24/2023 10:57 AM BLOCK INSPECTOR Gamal Cisneros NP MICROBIOLOGY - GENERAL ORDERAB LES Final Result [facility] [address] [place] [address], * INFLUENZA A & B (09/24/2023 10:57 AM BLOCK INSPECTOR) SPECIMEN TYPE UNKNOWN 09/24/2023 3:19 PM BLOCK INSPECTOR [facility] INFLUENZA A NEGATIVE NEGATIVE 09/24/2023 3:59 PM BLOCK INSPECTOR [facility] INFLUENZA B NEGATIVE NEGATIVE 09/24/2023 3:59 PM BLOCK INSPECTOR [facility] Comment: Interpretation: Negative for Influenza A [...] NASOPHARYNGEAL SWAB / Unknown 09/24/2023 10:57 AM BLOCK INSPECTOR us Gamal Cisneros NP MICROBIOLOGY - GENERAL ORDERAB LES Final Result Performing Organization Address City/[facility] Co de Phone Number [facility] [address] [place] [address], * CORONAVIRUS (COVID 19) (09/24/2023 10:57 AM BLOCK INSPECTOR) CORONAVIRUS SARS COV 2 RNA NEGATIVE NEGATIVE 09/24/2023 3:59 PM BLOCK INSPECTOR [facility] Comment: NEGATIVE RESULTS DO NOT RULE [...] SARS-COV-2. SPECIMEN TYPE NASAL 09/24/2023 12:32 PM BLOCK INSPECTOR [facility] NASAL STRUCTURE / Unknown 09/24/2023 10:57 AM BLOCK INSPECTOR us Gamal Cisneros NP MICROBIOLOGY - GENERAL ORDERAB LES Final Result Performing Organization Address City/[facility]/ZIP Co de Phone Number [facility] [address] [place] [address], * ECG 12 lead (09/24/2023 10:42 AM BLOCK INSPECTOR) 09/24/2023 10:4 2 AM BLOCK INSPECTOR Narrative [facility] - 09/24/2023 12:34 PM BLOCK INSPECTOR ?[facility] ? [address] [place] ? Test Date: ?2023-09-24 Pat Name: ? JULIET GRIMM ? Department: ?? 41 ? Room: ? EMS1 Gender: ? Male ? Mineral Economist: ?? : ?1961-08-14 ? Requested By: GAMAL CISNEROS Order Number: [id number] ? Reading MD: ?? Melvin Bamu ? Measurements Intervals ?[place] ? Rate: ? 74 ? P: ?69 [place]: ? 207 ?QRS: ?59 QRSD: ? 73 ? T: ?69 QT: ? 354 ? QTc: ?394 ? Interpretive Statements SINUS RHYTHM First Degree AV Block No previous ECG available for comparison K INSPECTOR Procedure Note Melvin Baum MD - 09/24/[address] 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: : 1961-08-14 Requested By: GAMAL CISNEROS Order Number: [id number] Reading MD: Melvin Baum Measurements Intervals [place] Rate: 74 P: 69 [place]: 207 QRS: 59 QRSD: 73 T: 69 QT: 354 QTc: 394 Interpretive Statements SINUS RHYTHM First Degree AV Block No previous ECG available for comparison K INSPECTOR us Gamal Cisneros MEMORY CARE PROGRAM RESIDENT ECG ORDERABLES Final Result [facility] * (ABNORMAL) COMPREHENSIVE METABOLIC PANEL (09/24/2023 10:38 AM BLOCK INSPECTOR) [facility] Signature GLUCOSE 113(H) 70 - 99 MG/DL 09/24/2023 9:30 PM BLOCK INSPECTOR [facility] BUN 12 7 - 18 MG/DL 09/24/2023 9:30 PM BLOCK INSPECTOR [facility] CREATININE S/P/B 0.95 0.7 - 1.3 MG/DL 09/24/2023 9:30 PM [facility] SODIUM S/P/B 136 136 - 145 MMOL/L 09/24/2023 9:30 PM [facility] POTASSIUM S/P/B 3.9 3.5 - 5.1 MMOL/L 09/24/2023 9:30 PM [facility] CHLORIDE S/P/B 108 100 - 108 MMOL/L 09/24/2023 9:30 PM [facility] CO2 27.8 21 - 32 MMOL/L 09/24/2023 9:30 PM [facility] CALCIUM S/P/B 9.1 8.5 - 10.1 MG/DL 09/24/2023 9:30 PM [facility] BILIRUBIN TOTAL S/P/B 1.0 0.2 - 1.2 MG/DL 09/24/2023 9:30 PM [facility] Comment: THIS ASSAY IS NOT RECOMMENDED FOR PATIENTS UNDERGOING TREATMENT WITH ELTROMBOPAG DUE TO THE POTENTIAL FOR FALSELY ELEVATED RESULTS. TOTAL PROTEIN S/P/B 7.7 6.4 - 8.2 G/DL 09/24/2023 9:30 PM [facility] ALBUMIN S/P/B 3.8 3.4 - 5.0 G/DL 09/24/2023 9:30 PM [facility] AST 15 15 - 37 U/L 09/24/2023 9:30 PM [facility] ALT 23 16 - 60 U/L 09/24/2023 9:30 PM [facility] ALKALINE PHOSPHATASE S/P/B 98 50 - 136 U/L 09/24/2023 9:30 PM [facility] ANION GAP 0.2(L) 5 - 15 MMOL/L 09/24/2023 9:30 PM [facility] BUN CREATININE RATIO 12.6 6 - 26 09/24/2023 9:30 PM [facility] A/G RATIO 1.0 1.0 - 2.0 RATIO 09/24/2023 9:30 PM [facility] GFR ESTIMATE 89(L) >90 ML/MIN/1.7 3 M2 09/24/2023 9:30 PM [facility] Comment: NOTE: eGFR is not calculated for patients <18 years of age. This is an estimated GFR calculation using the new CKD EPI creatinine equation without race and so does not require a correction factor for race. This estimated GFR should not be used for calculating drug doses. 09/24/2023 10:3 8 AM BLOCK INSPECTOR Gamal Cisneros NP LABORATORY Final Result [facility] [address] [place] [address], [place] [phone] * (ABNORMAL) CBC W/DIFF AUTOMATED (09/24/2023 10:38 AM BLOCK INSPECTOR) WBC 6.4 4.5 - 11.0 x10'3/uL 09/24/2023 3:04 PM [facility] RBC 5.23 4.70 - 6.10 x10'6/uL 09/24/2023 3:04 PM [facility] HGB 14.4 14.0 - 18.0 G/DL 09/24/2023 3:04 PM [facility] HCT 44.5 43.0 - 54.0 % 09/24/2023 3:04 PM [facility] MCV 85.1 80.0 - 94.0 FL 09/24/2023 3:04 PM [facility] MCH 27.5 27.0 - 31.0 PG 09/24/2023 3:04 PM [facility] MCHC 32.4 32.0 - 36.0 G/DL 09/24/2023 3:04 PM [facility] RDW 13.4 11.5 - 14.5 % 09/24/2023 3:04 PM [facility] PLT 289 130 - 400 x10'3/uL 09/24/2023 3:04 PM [facility] MPV 9.3 9.3 - 12.2 FL 09/24/2023 3:04 PM [facility] DIFFERENTIAL TYPE AUTOMATED DIFFERENTIAL 09/24/2023 3:04 PM [facility] NEUTROPHILS % 55.5 % 09/24/2023 3:04 PM [facility] LYMPHOCYTES % 19.9 % 09/24/2023 3:04 PM [facility] MONOCYTES % 11.0 % 09/24/2023 3:04 PM [facility] EOSINOPHILS 11.9 % 09/24/2023 3:04 PM [facility] BASOPHILS 1.4 % 09/24/2023 3:04 PM [facility] IMMATURE GRANS % 0.3 % 09/24/19 3:04 PM BLOCK INSPECTOR [facility] ABS. NEUTROPHILS TOTAL 3.53 1.80 - 7.70 x10'3/uL 09/24/2023 3:04 PM BLOCK INSPECTOR [facility] ABS. LYMPHOCYTES 1.27 1.00 - 4.80 x10'3/uL 09/24/2023 3:04 PM BLOCK INSPECTOR [facility] ABS. MONOCYTES 0.70 0.30 - 0.82 x10'3/uL 09/24/2023 3:04 PM BLOCK INSPECTOR [facility] ABS. EOSINOPHILS 0.76(H) 0.04 - 0.54 x10'3/uL 09/24/2023 3:04 PM BLOCK INSPECTOR [facility] ABS. BASOPHILS 0.09(H) 0.01 - 0.08 x10'3/uL 09/24/2023 3:04 PM BLOCK INSPECTOR [facility] ABS. IMMATURE GRANULOCYTES 0.02 0.00 - 0.49 x10'3/uL 09/24/2023 3:04 PM [facility] 09/24/2023 10:3 8 AM BLOCK INSPECTOR Gamal Cisneros NP LABORATORY Final Result [facility] [address] [place] [address], documented in this encounter Visit Diagnoses Diagnosis Asthma exacerbation ([facility])- Primary Unspecified asthma, with exacerbation documented in this encounter Administered Medications Inactive Administered Medications - up to 3 most recent administrations Medication Order MAR Action Action Date Dose Rate Site ipratropium-albuterol (DUONEB) 0.5-2.5 (3) MG/3ML nebulizer solution 3 mL 3 mL, Nebulization, Once, 1 dose, On 09/24/23 at 1030 Given 09/24/2023 11:36 AM BLOCK INSPECTOR 3 mLs methylPREDNISolone sodium succinate (SOLU-Medrol) injection 125 mg 125 mg, Intravenous, Once, 1 dose, On 09/24/23 at 1030, If ordered IV, administer into a vein over 3-15 minutes. Doses >= 2 mg/kg or 250mg should be given by infusion, unless the benefits of IV injection outweigh the risks (life-threatening shock) Given 09/24/2023 11:34 AM BLOCK INSPECTOR 125 mg documented in this encounter Active and Recently Administered Medications Times are shown in BLOCK INSPECTOR. Scheduled Medication Order 09/22/2023 09/23/2023 09/24/2023 ipratropium-albuterol [...] Rule Out 09/24/2023 09/24/2023 09/24/2023 3:59 PM BLOCK INSPECTOR Assessment Noted Time PHQ-9 Depression Total Score: 1 09/29/19 10:03 AM BLOCK INSPECTOR documented as of this encounter Care Teams Lead Principal Technical Architect Relationship Specialty Start Date End Date Soledad Lucas MD [address] [address] PCP - General INTERNAL MEDICINE 09/29/21 documented as of this encounter
--- OUTSIDE RECORDS SUMMARY | 2024-08-03 05:03 | XMS_ITS | Encounter Summary ---
Author Organization [facility] Address [address] [place] [address]. [place], [place] [address] [place] [address] Care Team Providers Care Rescue Worker Name Role Phone Soledad Lucas MD Primary Care Provider [phone] Reason for Visit * Reason Onset Date Comments Breathing Problem 05/30/2023 Encounter Details Date Type Department Care Team (Late st Contact Info) Description 05/30/2023 Telephone [facility] Medical Group Multispecialty Care - [place] [address] [address] [place], [place] [phone] Soledad Lucas MD [address] [place] [address] 157 [place], [place] [phone] Breathing Problem Social History Tobacco Use Types [...] st Contact Info) Description 08/19/2024 9:00 AM ADVENTURE THERAPIST Office Visit [facility] Medical [facility] Multispecialty Care - [place] [address] [address] [place] [address] Soledad Lucas MD [address] [place] [address] 12/16/2024 10:40 AM CDT Office Visit [facility] Mult[facility]pec[facility]ty [place] [facility] [address] [facility] [place] [address] Ramsey Oakley MD [address] [facility] [address] [place] [address] documented as of this encounter Visit Diagnoses Not on filedocumented in this encounter Additional Health Concerns Assessment Noted Time PHQ-9 Depression Total Score: 1 09/29/19 22 10:03 AM ADVENTURE THERAPIST documented as of this encounter Care Teams Rescue Worker Relationship Specialty Start Date End Date Soledad uLcas MD [address] [place] [address] PCP - General INTERNAL MEDICINE 09/29/21 documented as of this encounter
--- OUTSIDE RECORDS SUMMARY | 2024-08-03 05:03 | XMS_ITS | Encounter Summary ---
Author Organization [facility] Address [address] [place] [address]. [address] [address] Care Team Providers Care Court Manager Name Role Phone Soledad Lucas MD Primary Care Provider [phone] Reason for Visit * Reason Onset Date Comments Medication 11/06/2023 Encounter Details Date Type Department Care Team (Late st Contact Info) Description 11/06/2023 Telephone [facility] Medical Group Multispecialty Care - [place] [address] [address] [place] [address] Soledad Lucas MD [address] [place] [address] 157 [place] [address] Medication Social History Tobacco Use [...] st Contact Info) Description 08/19/2024 9:00 AM MORTGAGE SALES MANAGER [facility] - [place] [address] [address] [place] [address] Soledad Lucas MD [address] [place] [address] 12/16/2024 10:40 AM CDT Office Visit [facility] [address] [facility] [place] [address] Ramsey Oakley MD 3 [facility] [address] [place] [address] documented as of this encounter Visit Diagnoses Diagnosis Chronic bilateral low back pain with left-sided sciatica Cervical radiculopathy Brachial neuritis or radiculitis nos documented in this encounter Additional Health Concerns Assessment Noted Time PHQ-9 Depression Total Score: 1 09/29/19 10:03 AM MORTGAGE SALES MANAGER documented as of this encounter Care Teams Court Manager Relationship Specialty Start Date End Date Soledad Lucas MD [address] [place] [address] PCP - General INTERNAL MEDICINE 09/29/21 documented as of this encounter
--- OUTSIDE RECORDS SUMMARY | 2024-08-03 05:03 | XMS_ITS | Encounter Summary ---
Author Organization [facility] Address [address] [place] [address]. [address] [address] Care Team Providers Care Filing Machine Operator Name Role Phone Soledad Lucas MD Primary Care Provider [phone] Reason for Visit * Reason Onset Date Comments Information 05/31/2023 Encounter Details Date Type Department Care Team (Late st Contact Info) Description 05/31/2023 Telephone [facility] Medical Group Multispecialty Care - [place] [address] [address] [place] [address] Soledad Lucas MD [address] [place] [address] 157 [place] [address] Information Social History Tobacco Use [...] called and stated that upon arriving at [facility], his labs were drawn and left on [...] st Contact Info) Description 08/19/2024 9:00 AM BULK LOADER [facility] [place] [address] [address] [place] [address] [place] [address] [place] [address] [address] [place] [address] 12/16/2024 10:40 AM CDT Office Visit [facility] Multispecialty Care - [facility] [address] [facility] [place] [address] Ramsey Oakley MD [address] [facility] [address] [place] [address] documented as of this encounter Visit Diagnoses Not on filedocumented in this encounter Additional Health Concerns Assessment Noted Time PHQ-9 Depression Total Score: 1 09/29/19 22 10:03 AM BULK LOADER documented as of this encounter Care Teams Filing Machine Operator Relationship Specialty Start Date End Date Soledad Lucas MD [address] [address] PCP - General INTERNAL MEDICINE 09/29/21 documented as of this encounter
--- OUTSIDE RECORDS SUMMARY | 2024-08-03 05:03 | XMS_ITS | Encounter Summary ---
Author Organization [facility] Address [address] [place] [address]. [place], [place] [address] [place] [address] Care Team Providers Care Associate Drafter Name Role Phone Soledad Lucas MD Primary Care Provider [phone] Encounter Details Date Type Department Care Team [...] Contact Info) Description 08/19/2024 9:00 AM EMPLOYMENT OFFICE CLERK Office Visit [facility] Medical [facility] Multispecialty Care - [place] [address] [address] [place] [address] Soledad Lucas MD [address] [place] [address] 157 [place] [address] 12/16/2024 10:40 AM CDT Office Visit [facility] Medical [facility] Multispecialty [address] [place] [address] Ramsey Oakley MD [facility] [address] [place] [address] documented as of this encounter Visit Diagnoses Not on filedocumented in this encounter Additional Health Concerns Assessment Noted Time PHQ-9 Depression Total Score: 1 09/29/19 22 10:03 AM EMPLOYMENT OFFICE CLERK documented as of this encounter Care Teams Associate Drafter Relationship Specialty Start Date End Date Soledad Lucas MD [address] [address] PCP - General INTERNAL MEDICINE 09/29/21 documented as of this encounter
--- OUTSIDE RECORDS SUMMARY | 2024-08-03 05:03 | XMS_ITS | Encounter Summary ---
Author Organization [facility] Address [address] [place] [address]. [address] [address] Care Team Providers Care Automotive Generator Repairer Name Role Phone Soledad Lucas MD Primary Care Provider [phone] Encounter Details Date Type Department Care Team (Late st Contact Info) Description 08/17/2023 [facility] [place] [address] [place] [phone] Soledad Lucas MD [address] [place] [address] Social History Tobacco Use Types Packs/Day [...] st Contact Info) Description 08/19/2024 9:00 AM ZIGZAG TUNNEL ELASTIC OPERATOR Office [facility] Mult[facility] - [address] [place] [address] Soledad Lucas MD [address] [address] 12/16/2024 10:40 AM CDT Office Visit [facility] Multispecialty Care - [facility] 3 [facility] [address] [place] [address] Ramsey Oakley MD [facility] [address] [place] [address] documented as of this encounter Visit Diagnoses Not on filedocumented in this encounter Additional Health Concerns Assessment Noted Time PHQ-9 Depression Total Score: 1 09/29/19 22 10:03 AM ZIGZAG TUNNEL ELASTIC OPERATOR documented as of this encounter Care Teams Automotive Generator Repairer Relationship Specialty Start Date End Date Soledad Lucas MD [address] [address] PCP - General INTERNAL MEDICINE 09/29/21 documented as of this encounter
--- OUTSIDE RECORDS SUMMARY | 2024-08-03 05:03 | XMS_ITS | Encounter Summary ---
Author Organization [facility] Address [address] [place] [address]. [place], [place] [address] [place] [address] Care Team Providers Care Dredge Deckhand Name Role Phone Soledad Lucas MD Primary Care Provider [phone] Encounter Details Date Type Department Care Team [...] st Contact Info) Description 08/19/2024 9:00 AM BEHAVIORAL THERAPIST Office Visit [facility] Medical [facility] Multispecialty Care - [place] [address] [address] [place] [address] Soledad Lucas MD [address] [place] [address] 157 [place] [address] 12/16/2024 10:40 AM CDT Office Visit [facility] Medical [facility] Multispecialty [address] [place] [address] Ramsey Oakley MD [facility] [address] [place] [address] documented as of this encounter Visit Diagnoses Not on filedocumented in this encounter Additional Health Concerns Assessment Noted Time PHQ-9 Depression Total Score: 1 09/29/19 22 10:03 AM BEHAVIORAL THERAPIST documented as of this encounter Care Teams Dredge Deckhand Relationship Specialty Start Date End Date Soledad Lucas MD [address] [address] PCP - General INTERNAL MEDICINE 09/29/21 documented as of this encounter
--- OUTSIDE RECORDS SUMMARY | 2024-08-03 05:03 | XMS_ITS | Encounter Summary ---
Author Organization [facility] Address [address] [place] [address]. [place], [place] [address] [place] [address] Care Team Providers Care Superannuation Funds Manager Name Role Phone Soledad Lucas MD [...] st Contact Info) Description 08/19/2024 9:00 AM SAUSAGE MACHINE OPERATOR Office Visit [facility] Medical Group Multispecialty Care - [place] [address] [address] [place] [address] Soledad Lucas MD [address] [place] [address] [address] [place] [address] 12/16/2024 10:40 AM CDT Office Visit [facility] Medical Group Multispecialty Care - [facility] [address] [facility] [address] [place] [address] Ramsey Oakley MD [address] [place] [address] documented as of this encounter Procedures Procedure Name Priority Date/Time Associated Diagnosis Comments OUTSIDE LAB COVID-19 (SCAN ORDER) Routine 05/30/2023 documented in this encounter Results * OUTSIDE LAB COVID-19 (SCAN) (05/30/2023) CORONAVIRUS SARS COV 2 PCR (RESP) NOT DETECTED NOT DETECTED [facility] 05/30/2023 [facility] Scanned SCANNING Final Resu lt [facility] documented in this encounter Visit Diagnoses Not on filedocumented in this encounter Additional Health Concerns Infection Onset Date Last Indicated Resolved Time COVID-19 Rule Out 09/24/2023 09/24/2023 09/24/2023 3:59 PM SAUSAGE MACHINE OPERATOR Assessment Noted Time PHQ-9 Depression Total Score: 1 09/29/19 10:03 AM SAUSAGE MACHINE OPERATOR documented as of this encounter Care Teams Superannuation Funds Manager Relationship Specialty Start Date End Date Soledad Lucas MD [address] [facility] [address] [place] [address] PCP - General INTERNAL MEDICINE 09/29/21 documented as of this encounter
--- OUTSIDE RECORDS SUMMARY | 2024-08-03 05:03 | XMS_ITS | Encounter Summary ---
Author Organization [facility] Address [address] [place] [address]. [place] [address] [place] [address] Care Team Providers Care Electricity Trading Analyst Name Role Phone Soledad Lucas MD Primary Care Provider [phone] Reason for Visit * Reason Onset Date Comments Appointment Request 01/24/2024 Encounter Details Date Type Department Care Team (Late st Contact Info) Description 01/24/2024 Telephone [facility] Medical [facility] - [place] [address] [place], [place] [address] Robby Loja MD [address] [place] [address] Appointment Request Social History Tobacco Use Types [...] st Contact Info) Description 08/19/2024 9:[address]UTTER Office Visit [facility] Multispecialty Care - [place] [address] [address] [place] [address] Soledad Lucas MD [address] [place] [address] 12/16/2024 10:40 AM CDT [facility] [address] [facility] [address] [place] [address] Ramsey Oakley MD 3 [facility] [address] [place] [address] documented as of this encounter Visit Diagnoses Not on filedocumented in this encounter Additional Health Concerns Assessment Noted Time PHQ-9 Depression Total Score: 1 09/29/19 22 10:[address]UTTER documented as of this encounter Care Teams Electricity Trading Analyst Relationship Specialty Start Date End Date Soledad Lucas MD [address] [place] [address] PCP - General INTERNAL MEDICINE 09/29/21 documented as of this encounter
--- OUTSIDE RECORDS SUMMARY | 2024-08-03 05:03 | XMS_ITS | Encounter Summary ---
Author Organization [facility] Address [address] [place] [address]. [place] [address] Care Team Providers Care Ent Consultant Name Role Phone Soledad Lucas MD Primary Care Provider [phone] Reason for Visit * Reason Onset Date Comments Question 06/09/2023 Encounter Details Date Type Department Care Team (Late st Contact Info) Description 06/09/2023 Telephone [facility] Medical Group Multispecialty Care - [place] [address] [address] [place] [address] Soledad Lucas MD [address] [place] [address] [address] [place] [address] Question Social History Tobacco Use [...] he is wheezing and has a cough. RITY SUPERVISOR * Jatin Cortez - 06/14/2023 11:33 AM CST Pt called today and stated he needs an inhaler not the one that is red and white something a lot stronger the round one? Also he would like the doctor to discuss his cholesterol and give him a call. RITY SUPERVISOR * Koko Brand - 06/12/2023 10:48 AM CST Patient is scheduled for physical. RITY SUPERVISOR * Soledad Lucas MD - 06/09/2023 5:55 PM CDT I called and spoke to patient. Has run out of atorvastatin. 90-day supply sent. Please schedule patient for his physical on August 16, 2023 at 10:20 AM thank you. * Jatin Cortez - 06/09/2023 8:38 AM CDT Pt is calling today regarding his cholesterol, he would like a f/u call on direction regarding thisissue [phone]. documented in this encounter Plan of Treatment Upcoming Encounters Date Type Department Care Team (Late st Contact Info) Description 08/19/2024 9:00 AM SECURITY SUPERVISOR [facility] [place] [address] [address] [place] [address] Soledad Lucas MD [address] [place] [address] [address] [place] [address] 12/16/2024 10:40 AM CDT Office Visit [facility] Care - [facility] [address] [facility] [place] [address] Ramsey Oakley MD 3 [facility] [address] [place] [address] documented as of this encounter Visit Diagnoses Diagnosis Mixed hyperlipidemia Left-sided chest pain documented in this encounter Additional Health Concerns Assessment Noted Time PHQ-9 Depression Total Score: 1 09/29/19 22 10:03 AM SECURITY SUPERVISOR documented as of this encounter Care Teams Ent Consultant Relationship Specialty Start Date End Date Soledad Lucas MD [address] [address] PCP - General INTERNAL MEDICINE 09/29/21 documented as of this encounter
--- OUTSIDE RECORDS SUMMARY | 2024-08-03 05:03 | XMS_ITS | Encounter Summary ---
Author Organization [facility] Address [address] [place] [address]. [address] [address] Care Team Providers Care Manager Search Name Role Phone Soledad Lucas MD Primary Care Provider [phone] Reason for Referral * Imaging (Routine) - Pending Review Specialty Diagnoses / Procedures Referred By Prasanth santillan Referred To Contact RADIOLOGY Diagnoses Right shoulder pain, unspecified chronicity Cervical radiculopathy Right arm pain Procedures MRI CERV SPINE WO CON MRI CERV SPINE WO CON Angelica Adair, HERO [address] [place] [address] Phone: tel: fax: Referral ID Status Reason Start Date Expiration Date V isits Requested Visits Authorized [id number] Pending Review 01/12/2024 02/10/2025 1 1 * Physical Medicine (Routine) - Closed Specialty Diagnoses / Procedures Referred By Prasanth santillan Referred To Contact PHYSICAL THERAPY / [facility] Physical Therapy Diagnoses Right shoulder pain, unspecified chronicity Cervical radiculopathy Right arm pain Procedures OFFICE/OUTPATIENT NEW LOW MDM 30-44 MINUTES OFFICE/OUTPT VISIT,NEW,LEVL IV OFFICE/OUTPT VISIT,NEW,LEVL V OFFICE/OUTPT VISIT,EST,LEVL III OFFICE/OUTPT VISIT,EST,LEVL IV OFFICE/OUTPT VISIT,EST,LEVL V Angelica Adair, MICROBIAL SPECIALIST [address] [place] [address] Phone: tel: fax: [facility] Physical Therapy [address] [place] [address] Phone: tel: fax: Referral ID Status Reason Start Date Expiration Date V isits Requested Visits Authorized [id number] Closed Physical Therapy 01/12/2024 04/06/2024 12 12 * - New Request Specialty Diagnoses / Procedures Referred By Contac t Referred To Contact Diagnoses Right shoulder pain, unspecified chronicity Bilateral hand pain Procedures XR HAND RT 3V Angelica Adair NP [address] [place] [address] Phone: tel: fax: Referral ID Status Reason Start Date Expiration Date V isits Requested Visits Authorized [id number] New Request 01/12/2024 1 1 * - New Request Specialty Diagnoses / Procedures Referred By Contac t Referred To Contact Diagnoses Right shoulder pain, unspecified chronicity Bilateral hand pain Procedures XR HAND LT 3V Angelica Adair NP [address] [place] [address] Phone: tel: fax: Referral ID Status Reason Start Date Expiration Date V isits Requested Visits Authorized [id number] New Request 01/12/2024 1 1 * Imaging (Routine) - New Request Specialty Diagnoses / Procedures Referred By Contac t Referred To Contact RADIOLOGY Diagnoses Right shoulder pain, unspecified chronicity Cervical radiculopathy Right arm pain Procedures XR CERV SPINE 3V Angelica Adair NP [address] [place] [address] Phone: tel: fax: Referral ID Status Reason Start Date Expiration Date V isits Requested Visits Authorized [id number] New Request 01/12/2024 01/11/2025 1 1 Reason for Visit * Reason Comments Numbness Patient needs xray o f his shoulder because of right arm numbness Encounter Details Date Type Department Care Team (Late st Contact Info) Description 01/12/2024 8:00 AM CDT Office Visit [facility] Medical Group Multispecialty Care - [place] [address] [place] [address] Angelica Adair NP [address] [place] [address] Numbness (Patient needs xray of his shoulder [...] mouth nightly at bedtime. 90 tablet 1 Ucorufw-Prizqzvtwbm-Jepuoxchdn (BREZTRI AEROSPHERE) 160-9-4.8 MCG/ACT Aerosol Inhale 2 [...] the day of the encounter. This includes grfj-ps-cklm and fco-fvnj-ek-face time I provided on the day of [...] treatment is experienced. ANGELICA ADAIR NP 01/12/[address] [facility]. documented in this encounter Plan of Treatment Upcoming Encounters Date Type Department Care Team (Late st Contact Info) Description 08/19/2024 9:00 AM MACHINE SHORTHAND TEACHER Office Visit [facility] - [place] [address] [address] [place] [address] Soledad Lucas MD [address] [place] [address] 12/16/2024 10:40 AM CDT [facility] [place] [facility] [address] [facility] [address] [place] [address] Ramsey Oakley MD 3 [facility] [address] [place] [address] Scheduled Orders Name Type Priority Associated Diagnoses [...] Total Score: 1 09/29/19 22 10:03 AM MACHINE SHORTHAND TEACHER documented as of this encounter Care Teams Manager Search Relationship Specialty Start Date End Date Soledad Lucas MD [address] [address] PCP - General INTERNAL MEDICINE 09/29/21 documented as of this encounter
--- OUTSIDE RECORDS SUMMARY | 2024-08-03 05:03 | XMS_ITS | Encounter Summary ---
Author Organization [facility] Address [address] [place] [address] [address] Care Team Providers Care Textile Broker Name Role Phone Soledad Lucas MD Primary Care Provider [phone] Reason for Visit * Reason Comments Arm Pain Pt had a vaccine in right arm now having shooting pain going to his fingers Encounter Details Date Type Department Care Team (Latest Contact Info) Description 08/25/2023 11:40 AM NOVELTY WORKER Office Visit [facility] Medical Group Multispecialty Care - [place] [address] [address] [place] [address] Soledad Lucas MD [address] [place] [address] [address] [place] [address] Arm Pain (Pt had a vaccine in [...] Comments Blood Pressure 125/65 08/25/2023 12:43 PM NOVELTY WORKER Pulse 72 08/25/2023 12:43 PM NOVELTY WORKER Temperature 37 ??C (98.6 ??F) 08/25/2023 12: 43 PM NOVELTY WORKER Respiratory Rate 18 08/25/2023 12:4 3 PM NOVELTY WORKER Oxygen Saturation 99% 08/25/2023 12: 43 PM NOVELTY WORKER Inhaled Oxygen Concentration - - Weight 101.3 kg (223 lb 6.4 oz) 024 12:43 PM NOVELTY WORKER Height 185.4 cm (6' 1 ) 08/25/2023 12:4 3 PM NOVELTY WORKER Body Mass Index 29.47 08/25/2023 12:43 PM NOVELTY WORKER documented in this encounter Patient Instructions * Patient Instructions* Stewart Wilson NP Student - 08/25/2023 11:40 AM NOVELTY WORKER Please attend x ray outpatient and follow up in office for results LTY WORKER * Attachments The following attachments cannot be sent through Care Everywhere. * Osteoarthritis (South African) documented in this encounter Progress Notes * [...] varicose veins prominent on right upper arm, senior telecommunications consultant equal bilaterally, strength equal bilaterally, Right arm [...] the day of the encounter. This includes xshb-rx-zdfw and wtk-momk-hb-face time I provided on the day of [...] or documented. Soledad Lucas MD Internal Medicine [facility]. DRAGON: This dictation was at least in part performed using Symptom.ly and there may be some inherent flaws in this bread dough mixer due to the nature of this program. Soledad Lucas MD Internal Medicine [facility], [facility]. LTY WORKER LTY WORKER LTY WORKER LTY WORKER documented in this encounter Plan of Treatment Upcoming Encounters Date Type Department Care Team (Late st Contact Info) Description 08/19/2024 9:00 AM NOVELTY WORKER Office Visit [facility] Multispecialty Care - [place] [address] [address] [place] [address] Soledad Lucas MD [address] [place] [address] 12/16/2024 10:40 AM CDT Office Visit [facility] - [facility] [address] [facility] [address] [place] [address] Ramsey Oakley MD [address] [facility] [address] [place] [address] documented as of this encounter Results * XR ELBOW RT M3V (08/29/2023 1:51 PM NOVELTY WORKER) Anatomical Region Laterality Modality Elbow Radiographic Liv ging 08/29/2023 1:59 PM NOVELTY WORKER Impressions 08/29/2023 2:00 PM NOVELTY WORKER IMPRESSION: 1. No acute osseous abnormality. 2. Prominent degenerative changes. Ordered By: SOLEDAD LUCAS Interpreted By: Jasper Gray MD, 08/29/2023 1:59 PM Narrative 08/29/2023 2:00 PM NOVELTY WORKER Examination: XR ELBOW RT M3V Exam time: [...] XR SHOULDER RT 3V (08/29/2023 1:51 PM NOVELTY WORKER) Anatomical Region Laterality Modality Shoulder Radiographic Liv ging 08/29/2023 1:58 PM NOVELTY WORKER Impressions 08/29/2023 1:59 PM NOVELTY WORKER IMPRESSION: No acute abnormality. Ordered By: SOLEDAD LUCAS Interpreted By: Jasper Gray MD, 08/29/2023 1:58 PM Narrative 08/29/2023 1:59 PM NOVELTY WORKER Examination: XR SHOULDER RT 3V Exam time: [...] of right shoulder,Neuropathy Given 08/25/2023 1:49 PM NOVELTY WORKER 40 mg Right Deltoid documented in this encounter Additional Health Concerns Assessment Noted Time PHQ-9 Depression Total Score: 1 09/29/19 10:03 AM NOVELTY WORKER documented as of this encounter Care Teams Textile Broker Relationship Specialty Start Date End Date Soledad Lucas MD [address] [address] PCP - General INTERNAL MEDICINE 09/29/21 documented as of this encounter
--- OUTSIDE RECORDS SUMMARY | 2024-08-03 05:03 | XMS_ITS | Encounter Summary ---
Author Organization [facility] Address [address] [place] [address]. [place], [place] [address] [place] [address] Care Team Providers Care Health Record Technician Name Role Phone Soledad Lucas MD Primary Care Provider [phone] Reason for Visit * Reason Onset Date Comments Follow Up Call 02/28/2023 Encounter Details Date Type Department Care Team (Late st Contact Info) Description 02/28/2023 Telephone [facility] Medical Group Multispecialty Care - [place] [address] [address] [place] [address] [place] [address] [place] [address] 157 [place] [address] Follow Up Call Social History [...] st Contact Info) Description 08/19/2024 9:00 AM CREW FOREMAN Office Visit [facility] Multispecialty [facility] Department - [place] [address] [address] [place] [address] Soledad Lucas MD [address] [address] 12/16/2024 10:40 AM CDT [facility] 3 [facility] [place] [address] Ramsey Oakley MD 3 [facility] [address] [place] [address] documented as of this encounter Visit Diagnoses Not on filedocumented in this encounter Additional Health Concerns Assessment Noted Time PHQ-9 Depression Total Score: 1 09/29/19 10:03 AM CREW FOREMAN documented as of this encounter Care Teams Health Record Technician Relationship Specialty Start Date End Date Soledad Lucas MD [address] [address] PCP - General INTERNAL MEDICINE 09/29/21 documented as of this encounter
--- OUTSIDE RECORDS SUMMARY | 2024-08-03 05:03 | XMS_ITS | Encounter Summary ---
Author Organization [facility] Address [address] [place] [address]. [place], [place] [address] [place] [address] Care Team Providers Care Bug Trimmer Name Role Phone Soledad Lucas MD Primary Care Provider [phone] Reason for Visit * Reason Comments Image [...] st Contact Info) Description 08/19/2024 9:00 AM PROCESSING TECHNOLOGIST Office Visit [facility] Medical Group Multispecialty Care - [place] [address] [address] [place] [address] Soledad Lucas MD [address] [place] [address] 157 [place] [address] 12/16/2024 10:40 AM CDT Office Visit [facility] Medical Group Multispecialty Care - [facility] [address] [place] [address] Ramsey Oakley MD [address] [place] [address] documented as of this encounter Procedures Procedure Name Priority Date/Time Associated Diagnosis Comments IMAGE GENERIC 01/15/2024 IMAGE GENERIC 01/15/2024 IMAGE GENERIC 01/15/2024 IMAGE GENERIC 01/15/2024 IMAGE GENERIC 01/15/2024 IMAGE GENERIC 01/15/2024 documented in this encounter Results * IMAGE GENERIC (01/15/2024) Anatomical Region Laterality Modality Other 01/15/2024 [facility] Scanned SCANNING Final Resu lt * IMAGE GENERIC (01/15/2024) Anatomical Region Laterality Modality Other 01/15/2024 [facility] Scanned SCANNING Final Resu lt * IMAGE GENERIC (01/15/2024) Anatomical Region Laterality Modality Other 01/15/2024 [facility] Scanned SCANNING Final Resu lt * IMAGE GENERIC (01/15/2024) Anatomical Region Laterality Modality Other 01/15/2024 [facility] Scanned SCANNING Final Resu lt * IMAGE GENERIC (01/15/2024) Anatomical Region Laterality Modality Other 01/15/2024 [facility] Scanned SCANNING Final Resu lt * IMAGE GENERIC (01/15/2024) Anatomical Region Laterality Modality Other 01/15/2024 [facility] Scanned SCANNING Final Resu lt documented in this encounter Visit Diagnoses Not on filedocumented in this encounter Additional Health Concerns Assessment Noted Time PHQ-9 Depression Total Score: 1 09/29/19 22 10:03 AM PROCESSING TECHNOLOGIST documented as of this encounter Care Teams Bug Trimmer Relationship Specialty Start Date End Date Soledad Lucas MD [address] [address] PCP - General INTERNAL MEDICINE 09/29/21 documented as of this encounter
--- OUTSIDE RECORDS SUMMARY | 2024-08-03 05:03 | XMS_ITS | Encounter Summary ---
Author Organization [facility] Address [address] [place] [address]. [place], [place] [address] [place] [address] Care Team Providers Care Potter Or Ceramic Artist Name Role Phone Soledad Lucas MD Primary Care Provider [phone] Reason for Visit * Reason Onset Date Comments Medication 12/05/2023 Encounter Details Date Type Department Care Team (Late st Contact Info) Description 12/05/2023 Patient Outreach [facility] Medical Group Multispecialty Care - [address] [place] [address] Page Rosales RN Medication Social [...] st Contact Info) Description 08/19/2024 9:00 AM SURGICAL INSTRUMENT REPAIR SPECIALIST Office Visit [facility] Multispecialty Care - [place] [address] [address] [place] [address] Soledad Lucas MD 1188 [facility] [address] [place] [address] 12/16/2024 10:40 AM CDT Office [facility] Multispecialty Care - [facility] [address] [facility] [address] [place] [address] Ramsey Oakley MD [address] [facility] [address] [place] [address] documented as of this encounter Visit Diagnoses Not on filedocumented in this encounter Additional Health Concerns Assessment Noted Time PHQ-9 Depression Total Score: 1 09/29/19 22 10:03 AM SURGICAL INSTRUMENT REPAIR SPECIALIST documented as of this encounter Care Teams Potter Or Ceramic Artist Relationship Specialty Start Date End Date Soledad Lucas MD [address] [address] PCP - General INTERNAL MEDICINE 09/29/21 documented as of this encounter
--- OUTSIDE RECORDS SUMMARY | 2024-08-03 05:03 | XMS_ITS | Encounter Summary ---
Author Organization [facility] Address [address] [place] [address]. [place], [place] [address] [place] [address] Care Team Providers Care Fiber Optic Splicer Name Role Phone Soledad Lucas MD Primary Care Provider [phone] Encounter Details Date Type Department Care Team [...] st Contact Info) Description 08/19/2024 9:00 AM THERAPEUTIC MENTOR Office Visit [facility] Medical [facility] Multispecialty Care - [place] [address] [address] [place] [address] Soledad Lucas MD [address] [place] [address] [address] [place] [address] 12/16/2024 10:40 AM CDT Office Visit [facility] Medical [facility] Multispecialty [address] [place] [address] Ramsey Oakley MD [address] [facility] [place] [address] documented as of this encounter Visit Diagnoses Not on filedocumented in this encounter Additional Health Concerns Assessment Noted Time PHQ-9 Depression Total Score: 1 09/29/19 22 10:03 AM THERAPEUTIC MENTOR documented as of this encounter Care Teams Fiber Optic Splicer Relationship Specialty Start Date End Date Soledad Lucas MD [address] [address] PCP - General INTERNAL MEDICINE 09/29/21 documented as of this encounter
--- OUTSIDE RECORDS SUMMARY | 2024-08-03 05:03 | XMS_ITS | Encounter Summary ---
Author Organization [facility] Address [address] [place] [address]. [place], [place] [address] [place] [address] Care Team Providers Care Lucerne Farmer Name Role Phone Soledad Lucas MD Primary Care Provider [phone] Reason for Visit * Reason Onset Date Comments Follow Up Call 09/24/2023 Encounter Details Date Type Department Care Team (Late st Contact Info) Description 09/24/2023 Telephone [facility] Mult[facility]ialty Care - [place] [address] [address] [place] [address] Soledad Lucas MD [address] [place] [address] 157 [place] [address] Follow Up Call Social History [...] 2:43 PM CST Patient seen on 10/02/23. TS MANAGER * Jatin Cortez - 09/28/2023 7:40 AM CST Pt called today and stated that he is still having numbness and pain in his right arm down to two of his fingers and still having breathing problems, so I made him an appt for Monday. TS MANAGER * Soledad Lucas MD - 09/24/2023 10:41 PM CST Patient again admitted to the ER for asthma exacerbation. Please schedule for an ER follow up visitthanks. TS MANAGER documented in this encounter Plan of Treatment Upcoming Encounters Date Type Department Care Team (Late st Contact Info) Description 08/19/2024 9:00 AM EVENTS MANAGER Office Visit [facility] Multispecialty Care - [address] [place] [address] Soledad Lucas MD [address] [place] [address] 157 [place] [address] 12/16/2024 10:40 AM CDT Office Visit [facility] Mult[facility]pecialty Care - [facility] [address] [facility] [address] [place] [address] Ramsey Oakley MD 3 [facility] [address] [place] [address] documented as of this encounter Visit Diagnoses Not on filedocumented in this encounter Additional Health Concerns Infection Onset Date Last Indicated Resolved Time COVID-19 Rule Out 09/24/2023 09/24/2023 09/24/2023 3:59 PM EVENTS MANAGER Assessment Noted Time PHQ-9 Depression Total Score: 1 09/29/19 10:03 AM EVENTS MANAGER documented as of this encounter Care Teams Lucerne Farmer Relationship Specialty Start Date End Date Soledad Lucas MD [address] [address] PCP - General INTERNAL MEDICINE 09/29/21 documented as of this encounter
--- OUTSIDE RECORDS SUMMARY | 2024-08-03 05:03 | XMS_ITS | Encounter Summary ---
Author Organization [facility] Address [address] [place] [address]. [address] [address] Care Team Providers Care Instructor Modeling Name Role Phone Soledad Lucas MD Primary Care Provider [phone] Reason for Visit * Reason Onset Date Comments Medication 10/31/2023 Encounter Details Date Type Department Care Team (Late st Contact Info) Description 10/31/2023 Telephone [facility] Mult[facility]pecialty Care - [place] [address] [address] [place] [address] Soledad Lucas MD [address] [place] [address] [address] [place] [address] Medication Social History Tobacco Use [...] 9:55 AM CDT Spoke with camille in [facility] it hasn't been filled since August [...] UDS and CSA is needed. * Monica Bro MA - 10/31/2023 9:20 AM CDT Patient called and asked for a refill of oxycodone documented in this encounter Plan of Treatment Upcoming Encounters Date Type Department Care Team (Late st Contact Info) Description 08/19/2024 9:00 AM PAPER GOODS MACHINE OPERATOR Office [facility] Mult[facility]pecialty Care - [place] [address] [address] [place] [address] Soledad Lucas MD [address] [place] [address] 12/16/2024 10:40 AM CDT Office [facility]ty Care - [facility] [address] [facility] [address] [place] [address] Ramsey Oakley MD [address] [address] documented as of this encounter Visit Diagnoses Not on filedocumented in this encounter Additional Health Concerns Assessment Noted Time PHQ-9 Depression Total Score: 1 09/29/19 22 10:03 AM PAPER GOODS MACHINE OPERATOR documented as of this encounter Care Teams Instructor Modeling Relationship Specialty Start Date End Date Soledad Lucas MD [facility]8 [facility] 157 [place] [address] PCP - General INTERNAL MEDICINE 09/29/21 documented as of this encounter
--- OUTSIDE RECORDS SUMMARY | 2024-08-03 05:04 | XMS_ITS | Encounter Summary ---
Author Organization [facility] Address [address] [place] [address]. [place], [place] [address] [place] [address] Care Team Providers Care Enamel Cracker Name Role Phone Soledad Lucas MD Primary Care Provider [phone] Encounter Details Date Type Department Care Team [...] Coronavirus/COVID-19? No / Unsure 06/13/2022 1:43 PM TRUCK BENCH MECHANIC documented as of this encounter Plan of Treatment Upcoming Encounters Date Type Department Care Team (Late st Contact Info) Description 08/19/2024 9:00 AM TRUCK BENCH MECHANIC Office Visit [facility] Medical Group Multispecialty Care - [place] [address] [address] [place] [address] Soledad Lucas MD [address] [place] [address] [address] [place] [address] 12/16/2024 10:40 AM CDT Office Visit [facility] Medical Group Multispecialty Care - [facility] 3 [facility] [address] [place] [address] Ramsey Oakley MD 3 [facility] [address] [place] [address] documented as of this encounter Visit Diagnoses Not on filedocumented in this encounter Additional Health Concerns Infection Onset Date Last Indicated Resolved Time COVID-19 Rule Out 06/13/2022 06/13/2022 06/13/2022 2:50 PM TRUCK BENCH MECHANIC COVID-19 Rule Out 06/13/2022 06/13/2022 06/14/2022 1:24 PM TRUCK BENCH MECHANIC Assessment Noted Time PHQ-9 Depression Total Score: 1 09/29/19 22 10:03 AM TRUCK BENCH MECHANIC documented as of this encounter Care Teams Enamel Cracker Relationship Specialty Start Date End Date Soledad Lucas MD [address] [address] PCP - General INTERNAL MEDICINE 09/29/21 documented as of this encounter
--- OUTSIDE RECORDS SUMMARY | 2024-08-03 05:04 | XMS_ITS | Encounter Summary ---
Author Organization [facility] Address [address] [place] [address]. [place], [place] [address] [place] [address] Care Team Providers Care Superintendent Factory Name Role Phone Soledad Lucas MD Primary Care Provider [phone] Reason for Visit * Reason Onset Date Comments Follow Up Call 12/13/2022 Encounter Details Date Type Department Care Team (Late st Contact Info) Description 12/13/2022 Telephone [facility] Medical Group Multispecialty Care - [place] [address] [address] [place] [address] Soledad uLcas MD [address] [place] [address] 157 [place] [address] Follow Up Call Social History [...] st Contact Info) Description 08/19/2024 9:00 AM FOREST ECONOMICS PROFESSOR [facility] - [place] [address] [address] [place] [address] Soledad Lucas MD [address] [place] [address] 157 [place] [address] 12/16/2024 10:40 AM CDT [facility] 3 [facility] [address] [place] [address] Ramsey Oakley MD 3 [facility] [address] [place] [address] documented as of this encounter Visit Diagnoses Diagnosis Primary osteoarthritis of left knee Primary localized osteoarthrosis, lower leg Chronic bilateral low back pain with left-sided sciatica documented in this encounter Additional Health Concerns Assessment Noted Time PHQ-9 Depression Total Score: 1 09/29/19 10:03 AM FOREST ECONOMICS PROFESSOR documented as of this encounter Care Teams Superintendent Factory Relationship Specialty Start Date End Date Soledad Lucas MD [address] [address] PCP - General INTERNAL MEDICINE 09/29/21 documented as of this encounter
--- OUTSIDE RECORDS SUMMARY | 2024-08-03 05:04 | XMS_ITS | Encounter Summary ---
Author Organization [facility] Address [address] [place] [address]. [address] [address] Care Team Providers Care Director Of Recruiting Name Role Phone Soledad Lucas MD Primary Care Provider Reason for Visit * Reason Onset Date Comments Results 05/11/2022 Encounter Details Date Type Department Care Team (Late st Contact Info) Description 05/11/2022 Telephone [facility] Medical Group Multispecialty Care - [place] [address] [address] [place] [address] Soledad Lucas MD [address] [place] [address] 157 [place] [address] Results Social History Tobacco Use [...] Thank you Soledad Lucas MD Internal Medicine [facility]. documented in this encounter Plan of Treatment Upcoming Encounters Date Type Department Care Team (Late st Contact Info) Description 08/19/2024 9:00 AM ELECTRICAL MAINTENANCE MAN [facility] [place] [address] [address] [place] [address] Soledad Lucas MD [address] [place] [address] 157 [place] [address] 12/16/2024 10:40 AM CDT [facility] 3 [facility] [address] [place] [address] Ramsey Oakley MD 3 [facility] [address] [place] [address] documented as of this encounter Visit Diagnoses Not on filedocumented in this encounter Additional Health Concerns Assessment Noted Time PHQ-9 Depression Total Score: 1 09/29/19 22 10:03 AM ELECTRICAL MAINTENANCE MAN documented as of this encounter Care Teams Director Of Recruiting Relationship Specialty Start Date End Date Soledad Lucas MD [address] [place] [id number] PCP - General INTERNAL MEDICINE 09/29/21 documented as of this encounter
--- OUTSIDE RECORDS SUMMARY | 2024-08-03 05:04 | XMS_ITS | Encounter Summary ---
Author Organization [facility] Address [address] [place] [address]. [place], [place] [address] [place] [address] Care Team Providers Care Telephone Clerks Supervisor Name Role Phone Soledad Lucas MD Primary Care Provider [phone] Reason for Visit * Reason Onset Date Comments Schedule Test 07/19/2022 Reg stress Encounter Details Date Type Department Care Team (Late st Contact Info) Description 07/19/2022 Telephone [facility] [place] [address] Faby Yu RMA Schedule Test (Reg stress) [...] Coronavirus/COVID-19? No / Unsure 07/13/2022 3:18 PM VESSEL SPECIALIST documented as of this encounter Progress Notes * GLORIA Samuels - 07/19/2022 3:01 PM CST VM not set up, unable to leave message to schedule reg stress per Dr Maeve Lucas. Will send letter to patient to contact our office for appointment. EL SPECIALIST documented in this encounter Plan of Treatment Upcoming Encounters Date Type Department Care Team (Late st Contact Info) Description 08/19/2024 9:00 AM VESSEL SPECIALIST [facility] - [address] [place] [address] Soledad Lucas MD [address] [place] [address] 12/16/2024 10:40 AM CDT Office Visit [facility] 3 [facility] [address] [place] [address] Ramsey Oakley MD 3 [facility] [address] [place] [address] documented as of this encounter Visit Diagnoses Not on filedocumented in this encounter Additional Health Concerns Assessment Noted Time PHQ-9 Depression Total Score: 1 09/29/19 22 10:03 AM VESSEL SPECIALIST documented as of this encounter Care Teams Telephone Clerks Supervisor Relationship Specialty Start Date End Date Soledad Lucas MD [address] [place] [address] PCP - General INTERNAL MEDICINE 09/29/21 documented as of this encounter
--- OUTSIDE RECORDS SUMMARY | 2024-08-03 05:04 | XMS_ITS | Encounter Summary ---
Author Organization [facility] Address [address] [place] [address]. [place], [place] [address] [place] [address] Care Team Providers Care Sales Activity Manager Name Role Phone Soledad Lucas MD Primary Care Provider [phone] Reason for Visit * Reason Comments Image [...] Coronavirus/COVID-19? No / Unsure 07/13/2022 3:18 PM AUDIO VISUAL AIDS DIRECTOR documented as of this encounter Plan of Treatment Upcoming Encounters Date Type Department Care Team (Late Contact Info) Description 08/19/2024 9:00 AM AUDIO VISUAL AIDS DIRECTOR Office [facility] Group Multispecialty Care - [address] [place] [address] Soledad Lucas MD [address] [facility] [address] [place] [address] 12/16/2024 10:40 AM CDT Office Visit [facility] Group Multispecialty Care - [facility] [address] [facility] [address] [place] [address] Ramsey Oakley MD [address] [facility] [place] [address] documented as of this encounter Procedures Procedure Name Priority Date/Time Associated Diagnosis Comments OUTSIDE PT/INR (SCAN ORDER) 07/12/2022 OUTSIDE LAB (SCAN ORDER) 07/12/2022 OUTSIDE LAB (SCAN ORDER) 07/12/2022 OUTSIDE LAB (SCAN ORDER) 07/12/2022 IMAGE GENERIC 07/12/2022 documented in this encounter Results * OUTSIDE LAB (SCAN) (07/12/2022) 07/12/2022 [facility] Scanned SCANNING Final Resu lt * OUTSIDE LAB (SCAN) (07/12/2022) 07/12/2022 [facility] Scanned SCANNING Final Resu lt * OUTSIDE LAB (SCAN) (07/12/2022) 07/12/2022 [facility] Scanned SCANNING Final Resu lt * OUTSIDE PT/INR (SCAN) (07/12/2022) 07/12/2022 [facility] Scanned SCANNING Final Resu lt * IMAGE GENERIC (07/12/2022) Anatomical Region Laterality Modality Other 07/12/2022 [facility] Scanned SCANNING Final Resu lt documented in this encounter Visit Diagnoses Not on filedocumented in this encounter Additional Health Concerns Assessment Noted Time PHQ-9 Depression Total Score: 1 09/29/19 22 10:03 AM AUDIO VISUAL AIDS DIRECTOR documented as of this encounter Care Teams Sales Activity Manager Relationship Specialty Start Date End Date Soledad Lucas MD [address] [address] PCP - General INTERNAL MEDICINE 09/29/21 documented as of this encounter
--- OUTSIDE RECORDS SUMMARY | 2024-08-03 05:04 | XMS_ITS | Encounter Summary ---
Author Organization [facility] Address [address] [place] [address]. [place], [place] [address] [place] [address] Care Team Providers Care Industry Consultant Name Role Phone Soledad Lucas MD Primary Care Provider [phone] Encounter Details Date Type Department Care Team (Latest Contact Info) Description 07/06/2022 Hospital Encounter [facility] [address] [place] [address] Soledad Lucas MD [address] [address] Discharge Disposition: Home or Self [...] Coronavirus/COVID-19? No / Unsure 06/13/2022 1:43 PM DRYWALL PROFESSIONAL documented as of this encounter Medications at [...] 30 tablet 07/05/2022 3 vitamin D2, ergocalciferol, 37268 UNITS capsuleIndication s:Vitamin D deficiency Take 1 capsule (50,000 Units total) by mouth weekly. 12 capsule 1 09/29/2021 3 documented as of this encounter Plan of Treatment Upcoming Encounters Date Type Department Care Team (Late st Contact Info) Description 08/19/2024 9:00 AM DRYWALL PROFESSIONAL [facility] - [place] [address] [address] [place] [address] Soledad Lucas MD [address] [place] [address] 12/16/2024 10:40 AM CDT Office Visit [facility] 3 [facility], [address] [place] [address] Ramsey Oakley MD 3 [facility] [address] [place] [address] documented as of this encounter Visit Diagnoses Not on filedocumented in this encounter Additional Health Concerns Assessment Noted Time PHQ-9 Depression Total Score: 1 09/29/19 10:03 AM DRYWALL PROFESSIONAL documented as of this encounter Care Teams Industry Consultant Relationship Specialty Start Date End Date Soledad Lucas MD [address] [place] [address] PCP - General INTERNAL MEDICINE 09/29/21 documented as of this encounter
--- OUTSIDE RECORDS SUMMARY | 2024-08-03 05:04 | XMS_ITS | Encounter Summary ---
Author Organization [facility] Address [address] [place] [address]. [place], [place] [address] [place] [address] Care Team Providers Care Nutritional Health Coach Name Role Phone Soledad Lucas MD Primary Care Provider [phone] Reason for Visit * Reason Onset Date Comments Schedule Test 07/28/2022 Reg stress Encounter Details Date Type Department Care Team (Late st Contact Info) Description 07/28/2022 Telephone [facility] [place] [address] Faby Yu RMA Schedule Test (Reg stress) [...] Coronavirus/COVID-19? No / Unsure 07/13/2022 3:18 PM PUG MILL OPERATOR HELPER documented as of this encounter Progress Notes * GLORIA Samuels - 07/28/2022 3:12 PM CST Returned call to schedule reg stress per Dr Lucas but unable to leave message, vm not set up. Letter sent to patient 12.13 MILL OPERATOR HELPER documented in this encounter Plan of Treatment Upcoming Encounters Date Type Department Care Team (Late st Contact Info) Description 08/19/2024 9:00 AM PUG MILL OPERATOR HELPER [facility] - [address] [place] [address] [place] [address] [place] [address] 12/16/2024 10:40 AM CDT [facility] 3 [facility] [address] [place] [address] Ramsey Oakley MD 3 [facility] [address] [place] [address] documented as of this encounter Visit Diagnoses Not on filedocumented in this encounter Additional Health Concerns Assessment Noted Time PHQ-9 Depression Total Score: 1 09/29/19 10:03 AM PUG MILL OPERATOR HELPER documented as of this encounter Care Teams Nutritional Health Coach Relationship Specialty Start Date End Date Soledad Lucas MD [address] [place] [address] PCP - General INTERNAL MEDICINE 09/29/21 documented as of this encounter
--- OUTSIDE RECORDS SUMMARY | 2024-08-03 05:04 | XMS_ITS | Encounter Summary ---
Author Organization [facility] Address [address] [place] [address]. [place], [place] [address] [place] [address] Care Team Providers Care Pest Control Pilot Name Role Phone Soledad Lucas MD Primary Care Provider [phone] Reason for Visit * Reason Onset Date Comments Quality Gap Closure 10/18/2022 Encounter Details Date Type Department Care Team (Latest Contact Info) Description 10/18/2022 Patient Outreach [facility] Medical Group Multispecialty Care - [address] [place] [address] Rayna Velasquez MA Quality Gap [...] Coronavirus/COVID-19? No / Unsure 10/14/2022 1:36 PM CHIEF INNOVATION OFFICER documented as of this encounter Progress Notes * Rayna Velasquez MA - 10/18/2022 4:06 PM CDT I am a patient quality advocate calling this patient on behalf of the virtual stand work team to assess the below quality gaps. If you need to contact me directly- my number is [phone]. Preventive Screenings: Breast Cancer Screening: N/A Notes: [...] st Contact Info) Description 08/19/2024 9:00 AM CHIEF INNOVATION OFFICER Office Visit [facility] Multispecialty Care - [address] [place] [address] Soledad Lucas MD [address] [place] [address] 157 [place] [address] 12/16/2024 10:40 AM CDT [facility] 3 [facility] [address] [place] [address] Ramsey Oakley MD 3 [facility] [address] [place] [address] documented as of this encounter Visit Diagnoses Not on filedocumented in this encounter Additional Health Concerns Assessment Noted Time PHQ-9 Depression Total Score: 1 09/29/19 22 10:03 AM CHIEF INNOVATION OFFICER documented as of this encounter Care Teams Pest Control Pilot Relationship Specialty Start Date End Date Soledad Lucas MD [address] [place] [address] [address] [place] [address] PCP - General INTERNAL MEDICINE 09/29/21 documented as of this encounter
--- OUTSIDE RECORDS SUMMARY | 2024-08-03 05:04 | XMS_ITS | Encounter Summary ---
Author Organization [facility] - [facility] Address [address] [place] [address] [address] Care Team Providers Care Data Center Solutions Architect Name Role Phone Soledad Lucas MD Primary Care Provider Reason for Visit * Reason Onset Date Comments Refill Request 08/17/2022 Encounter Details Date Type Department Care Team (Late st Contact Info) Description 08/17/2022 Telephone [facility] Medical Group Multispecialty Care - [place] [address] [address] [place] [address] Soledad Lucas MD [address] [place] [address] [address] [place] [address] Refill Request Social History Tobacco [...] Coronavirus/COVID-19? No / Unsure 08/05/2022 10:33 AM TRADEMARK AFFIXER documented as of this encounter Progress Notes * Soledad Lucas MD - 08/17/2022 8:09 PM CST Arley Mendoza sent. EMARK AFFIXER * Eugenie Ramirez MA - 08/17/2022 9:05 AM CST Pt called requesting another script for the Arley Mendoza Last refill 07/06/22 Next appt 10/03/22 EMARK AFFIXER documented in this encounter Plan of Treatment Upcoming Encounters Date Type Department Care Team (Late st Contact Info) Description 08/19/2024 9:00 AM TRADEMARK AFFIXER [facility] [place] [address] [address] [place] [address] Soledad Lucas MD [address] [address] 12/16/2024 10:40 AM CDT [facility] [address] [facility], [address] [place] [address] Ramsey Oakley MD 3 [facility] [address] [place] [address] documented as of this encounter Visit Diagnoses Diagnosis Cough, unspecified type- Primary documented in this encounter Additional Health Concerns Assessment Noted Time PHQ-9 Depression Total Score: 1 09/29/19 10:03 AM TRADEMARK AFFIXER documented as of this encounter Care Teams Data Center Solutions Architect Relationship Specialty [place] [address] [place] [address] PCP - General INTERNAL MEDICINE 09/29/21 documented as of this encounter
--- OUTSIDE RECORDS SUMMARY | 2024-08-03 05:04 | XMS_ITS | Encounter Summary ---
Author Organization [facility] Address [address] [place] [address]. [place], [place] [address] [place] [address] Care Team Providers Care Crystal Cutter Name Role Phone Soledad Lucas MD Primary Care Provider [phone] Encounter Details Date Type Department Care Team (Latest Contact Info) Description 07/06/2022 - 07/06/2022 11:59 PM LAWN CARE PROFESSIONAL Hospital Encounter [facility] [address] [place] [address] Soledad Lucas MD [address] [address] Discharge Disposition: Home or Self [...] Coronavirus/COVID-19? No / Unsure 07/06/2022 9:53 AM LAWN CARE PROFESSIONAL documented as of this encounter Medications [...] tablet 07/06/2022 07/11/20 22 vitamin D2, ergocalciferol, 93993 UNITS capsuleIndications :Vitamin D deficiency Take 1 capsule (50,000 Units total) by mouth weekly. 12 capsule 1 09/29/2021 01/07/20 23 documented as of this encounter Plan of Treatment Upcoming Encounters Date Type Department Care Team (Late st Contact Info) Description 08/19/2024 9:00 AM LAWN CARE PROFESSIONAL [facility] [address] [place] [address] Soledad Lucas MD [address] [place] [address] 12/16/2024 10:40 AM CDT Office Visit [facility] Multispecialty Care - [address], [address] [place] [address] Ramsey Oakley MD [address] [address] documented as of this encounter Visit Diagnoses Not on filedocumented in this encounter Additional Health Concerns Infection Onset Date Last Indicated Resolved Time COVID-19 Rule Out 07/06/2022 07/06/2022 07/06/2022 3:14 PM LAWN CARE PROFESSIONAL COVID-19 Rule Out 07/06/2022 07/06/2022 07/08/2022 1:45 AM LAWN CARE PROFESSIONAL Assessment Noted Time PHQ-9 Depression Total Score: 1 09/29/19 22 10:03 AM LAWN CARE PROFESSIONAL documented as of this encounter Care Teams Crystal Cutter Relationship Specialty Start Date End Date Soledad Lucas MD 1188 [facility] 157 [place] [address] PCP - General INTERNAL MEDICINE 09/29/21 documented as of this encounter
--- OUTSIDE RECORDS SUMMARY | 2024-08-03 05:04 | XMS_ITS | Encounter Summary ---
Author Organization [facility] - [facility] Address [address] [place] [address]. [address] [address] Care Team Providers Care Electrician Maintenance Name Role Phone Soledad Lucas MD Primary Care Provider [phone] Reason for Visit * Reason Comments Knee Pain Has appt with orthos urg 01/18 Symptoms Of Head & Neck Left side neck/s calp pulling sensation Encounter Details Date Type Department Care Team (Latest Contact Info) Description 01/06/2023 11:40 AM CDT Office Visit [facility] Medical Group Multispecialty Care - [place] [address] [address] [place], [place] [address] Soledad Lcuas MD [address] [place] [id number] Knee Pain (Has appt with orthosurg 01/18); [...] the day of the encounter. This includes fjyd-aq-hjne and hba-sqlj-rc-face time I provided on the day of [...] was at least in part performed using [employer] speak and there may be some inherent flaws in this muck miner blasting due to the nature of this program. Soledad Lucas MD Internal Medicine [facility], [facility]. documented in this encounter Plan of Treatment Upcoming Encounters Date Type Department Care Team (Late st Contact Info) Description 08/19/2024 9:00 AM OIL WELL DRILLING MANAGER Office Visit [facility] Medical Group Multispecialty Care - [address] [place] [address] Soledad Lucas MD 1188 [facility] 157 [place] [address] 12/16/2024 10:40 AM CDT Office Visit [facility] Medical Group Multispecialty Care - [facility] 3 [facility] [address] [place] [address] Ramsey Oakley MD 3 [facility] [address] [place] [address] documented as of this encounter Visit Diagnoses Diagnosis Cervical radiculopathy- Primary Brachial neuritis or radiculitis nos Primary osteoarthritis of left knee Primary localized osteoarthrosis, lower leg Chronic bilateral low back pain with left-sided sciatica Vitamin D deficiency Unspecified vitamin D deficiency documented in this encounter Additional Health Concerns Assessment Noted Time PHQ-9 Depression Total Score: 1 09/29/19 10:03 AM OIL WELL DRILLING MANAGER documented as of this encounter Care Teams Electrician Maintenance Relationship Specialty Start Date End Date Soledad Lucas MD [address] [place] [address] PCP - General INTERNAL MEDICINE 09/29/21 documented as of this encounter
--- OUTSIDE RECORDS SUMMARY | 2024-08-03 05:04 | XMS_ITS | Encounter Summary ---
Author Organization [facility] Address [address] [place] [address]. [place], [place] [address] [place] [address] Care Team Providers Care Director Global Development Name Role Phone Soledad Lucas MD Primary Care Provider [phone] Encounter Details Date Type Department Care [...] st Contact Info) Description 08/19/2024 9:00 AM BUSINESS BROKER Office Visit [facility] Medical Group Multispecialty Care - [place] [address] [address] [place] [address] Soledad Lucas MD [address] [place] [address] [address] [place] [address] 12/16/2024 10:40 AM CDT Office Visit [facility] Medical Group Multispecialty Care - [facility] 3 [facility] [address] [place] [address] Ramsey Oakley MD 3 [facility] [address] [place] [address] documented as of this encounter Visit Diagnoses Not on filedocumented in this encounter Additional Health Concerns Assessment Noted Time PHQ-9 Depression Total Score: 1 09/29/19 22 10:03 AM BUSINESS BROKER documented as of this encounter Care Teams Director Global Development Relationship Specialty Start Date End Date Soledad Lucas MD [address] [address] PCP - General INTERNAL MEDICINE 09/29/21 documented as of this encounter
--- OUTSIDE RECORDS SUMMARY | 2024-08-03 05:04 | XMS_ITS | Encounter Summary ---
Author Organization [facility] Address [address] [place] [address]. [place], [place] [address] [place] [address] Care Team Providers Care Sewer Maintenance Supervisor Name Role Phone Soledad Lucas MD Primary Care Provider [phone] Reason for Visit * Reason Onset Date Comments Schedule Test 08/02/2022 No contact to pc p / stress test Encounter Details Date Type Department Care Team (Late st Contact Info) Description 08/02/2022 Telephone [facility] [place] [address] Faby Yu RMA Schedule Test (No contact [...] Coronavirus/COVID-19? No / Unsure 07/13/2022 3:18 PM PEDIATRIC SURGEON documented as of this encounter Progress Notes * GLORIA Samuels - 08/02/2022 5:56 PM CST No contact to pcp We have tried to contact your patient by phone and by letter with no response (stress test). At this time we will make no further attempts to contact your patient and will return their care back to your office. ATRIC SURGEON documented in this encounter Plan of Treatment Upcoming Encounters Date Type Department Care Team (Late st Contact Info) Description 08/19/2024 9:00 AM PEDIATRIC SURGEON [facility] [place] [address] [address] [place] [address] Soledad Lucas MD [address] [place] [address] 12/16/2024 10:40 AM CDT [facility] [address] [facility] [address] [place] [address] Ramsey Oakley MD 3 [facility] [address] [place] [address] documented as of this encounter Visit Diagnoses Not on filedocumented in this encounter Additional Health Concerns Assessment Noted Time PHQ-9 Depression Total Score: 1 09/29/19 22 10:03 AM PEDIATRIC SURGEON documented as of this encounter Care Teams Sewer Maintenance Supervisor Relationship Specialty [place] [address] [place] [address] PCP - General INTERNAL MEDICINE 09/29/21 documented as of this encounter
--- OUTSIDE RECORDS SUMMARY | 2024-08-03 05:04 | XMS_ITS | Encounter Summary ---
Author Organization [facility] - [facility] Address [address] [place] [address]. [place] [address] Care Team Providers Care Bag End Sewer Name Role Phone Soledad Lucas MD Primary Care Provider [phone] Reason for Visit * Reason Onset Date Comments Error 06/10/2022 Encounter Details Date Type Department Care Team (Late st Contact Info) Description 06/10/2022 Telephone [facility] Medical Group Multispecialty Care - [place] [address] [address] [place] [address] Soledad Lucas MD [address] [place] [address] 157 [place] [address] Error Social History Tobacco Use [...] st Contact Info) Description 08/19/2024 9:00 AM SAND MIXER MACHINE Office Visit [facility] Multispecialty Care - [place] [address] [address] [address] [place] [address] Soledad Lucas MD 1188 [facility] 157 [place] [address] 12/16/2024 10:40 AM CDT Office Visit [facility] Multispecialty Care - [facility] 3 [facility] [address] [place] [address] Ramsey Oakley MD [address] [facility] [address] [place] [address] documented as of this encounter Visit Diagnoses Not on filedocumented in this encounter Additional Health Concerns Assessment Noted Time PHQ-9 Depression Total Score: 1 09/29/19 22 10:03 AM SAND MIXER MACHINE documented as of this encounter Care Teams Bag End Sewer Relationship Specialty [place] [address] [place] [address] PCP - General INTERNAL MEDICINE 09/29/21 documented as of this encounter
--- OUTSIDE RECORDS SUMMARY | 2024-08-03 05:04 | XMS_ITS | Encounter Summary ---
Author Organization [facility] Address [address] [place] [address]. [place], [place] [address] [place] [address] Care Team Providers Care Brooch And Bracelet Maker Name Role Phone Soledad Lucas MD Primary Care Provider [phone] Reason for Visit * Reason Onset Date Comments Called To Cancel Office Appt. 05/16/2022 Encounter Details Date Type Department Care Team (Late st Contact Info) Description 05/16/2022 Telephone [facility] [address] [place] [address] Rene Segura, PT [place], [place] [phone] Called To Cancel Office Appt. Social History [...] Contact Info) Description 08/19/2024 9:00 AM SALES STOCK ASSOCIATE Office Visit [facility] Multispecialty Care - [place] [address] [address] [place] [address] Soledad Lucas MD 1188 [facility] 157 [place] [address] 12/16/2024 10:40 AM CDT Office Visit [facility]ispecialty [facility] [address] [facility] [address] [place] [address] Ramsey Oakley MD 3 [facility] [address] [place] [address] documented as of this encounter Visit Diagnoses Not on filedocumented in this encounter Additional Health Concerns Assessment Noted Time PHQ-9 Depression Total Score: 1 09/29/19 10:03 AM SALES STOCK ASSOCIATE documented as of this encounter Care Teams Brooch And Bracelet Maker Relationship Specialty Start Date End Date Soledad Lucas MD 1188 [facility] 157 [place] [address] PCP - General INTERNAL MEDICINE 09/29/21 documented as of this encounter
--- OUTSIDE RECORDS SUMMARY | 2024-08-03 05:04 | XMS_ITS | Encounter Summary ---
Author Organization [facility] Address [address] [place] [address]. [place], [place] [address] [place] [address] Care Team Providers Care Dehairing Machine Tender Name Role Phone Soledad Lucas MD Primary Care Provider [phone] Encounter Details Date Type Department Care Team [...] Coronavirus/COVID-19? No / Unsure 07/13/2022 3:18 PM HEEL SEAT FITTER documented as of this encounter Plan of Treatment Upcoming Encounters Date Type Department Care Team (Late st Contact Info) Description 08/19/2024 9:00 AM HEEL SEAT FITTER Office Visit [facility] Medical Group Multispecialty Care - [place] [address] [address] [place] [address] Soledad Lucas MD [address] [place] [address] [address] [place] [address] 12/16/2024 10:40 AM CDT Office Visit [facility] Medical Group Multispecialty Care - [facility] 3 [facility] [address] [place] [address] Ramsey Oakley MD 3 [facility] [address] [place] [address] documented as of this encounter Visit Diagnoses Not on filedocumented in this encounter Additional Health Concerns Assessment Noted Time PHQ-9 Depression Total Score: 1 09/29/19 22 10:03 AM HEEL SEAT FITTER documented as of this encounter Care Teams Dehairing Machine Tender Relationship Specialty Start Date End Date Soledad Lucas MD [address] [address] PCP - General INTERNAL MEDICINE 09/29/21 documented as of this encounter
--- OUTSIDE RECORDS SUMMARY | 2024-08-03 05:04 | XMS_ITS | Encounter Summary ---
Author Organization [facility] - [facility] Address [address] [place] [address] [address] Care Team Providers Care Rail Walker Name Role Phone Soledad Lucas MD Primary Care Provider [phone] Reason for Visit * Reason Onset Date Comments Question 07/11/2022 Chest Pain 07/11/2022 Encounter Details Date Type Department Care Team (Late st Contact Info) Description 07/11/2022 Telephone [facility] Medical Group Multispecialty Care - [place] [address] [address] [place] [address] Soledad Lucas MD [address] [place] [address] 157 [place], [place] [id number] Question; Chest Pain Social History Tobacco Use [...] Coronavirus/COVID-19? No / Unsure 07/06/2022 9:53 AM DETAILER FURNITURE documented as of this encounter Progress Notes [...] Medicine [facility] Medical Group, [facility]. ILER FURNITURE * Eugenie Ramirez MA - 07/12/2022 8:08 AM CST Pt informed me as I was calling him regarding message below that for the past 2 mornings he has hadchest pain going from the left side to the right side all the way across his chest, he states it comes and goes , and he experiences it mostly in the morning [phone] ILER FURNITURE * Eugenie Ramirez MA - 07/12/2022 8:08 AM CST Called pt and informed him ok to return to work and to make sure he finishes antibiotic as prescribed. Pt verbalized understanding ILER FURNITURE * Eugenie Ramirez MA - 07/11/2022 9:50 AM CST Pt called and asking when he can return to work since testing positive for strep last week. Please advise ILER FURNITURE documented in this encounter Plan of Treatment Upcoming Encounters Date Type Department Care Team (Late st Contact Info) Description 08/19/2024 9:00 AM DETAILER FURNITURE [facility] - [place] [address] [address] [place] [address] Soledad Lucas MD [address] [place] [address] 12/16/2024 10:40 AM CDT [facility] 3 [facility] [address] [place] [address] Ramsey Oakley MD 3 [facility] [address] [place] [address] documented as of this encounter Visit Diagnoses Not on filedocumented in this encounter Additional Health Concerns Assessment Noted Time PHQ-9 Depression Total Score: 1 09/29/19 22 10:03 AM DETAILER FURNITURE documented as of this encounter Care Teams Rail Walker Relationship Specialty Start Date End Date Sloedad Lucas MD [address] [place] [address] PCP - General INTERNAL MEDICINE 09/29/21 documented as of this encounter
--- OUTSIDE RECORDS SUMMARY | 2024-08-03 05:04 | XMS_ITS | Encounter Summary ---
Author Organization [facility] Address [address] [place] [address]. [place], [place] [address] [place] [address] Care Team Providers Care Computer System Specialist Name Role Phone Soledad Lucas MD Primary Care Provider [phone] Encounter Details Date Type Department Care Team [...] st Contact Info) Description 08/19/2024 9:00 AM KNIFE OPERATOR Office Visit [facility] Medical Group Multispecialty Care - [place] [address] [address] [place] [address] Soledad Lucas MD [address] [place] [address] [address] [place] [address] 12/16/2024 10:40 AM CDT Office Visit [facility] Medical Group Multispecialty Care - [facility] [address] [facility] [address] [place] [address] Ramsey Oakley MD 3 [facility] [address] [place] [address] documented as of this encounter Visit Diagnoses Not on filedocumented in this encounter Additional Health Concerns Assessment Noted Time PHQ-9 Depression Total Score: 1 09/29/19 22 10:03 AM KNIFE OPERATOR documented as of this encounter Care Teams Computer System Specialist Relationship Specialty Start Date End Date Soledad Lucas MD [address] [address] PCP - General INTERNAL MEDICINE 09/29/21 documented as of this encounter
--- OUTSIDE RECORDS SUMMARY | 2024-08-03 05:04 | XMS_ITS | Encounter Summary ---
Author Organization [facility] Address [address] [place] [address]. [place], [place] [address] [place] [address] Care Team Providers Care Latex Dipper Name Role Phone Soledad Lucas MD Primary Care Provider [phone] Reason for Visit * Reason Comments Image [...] Coronavirus/COVID-19? No / Unsure 08/05/2022 10:33 AM MECHANICAL ENGINEERING COOP documented as of this encounter Plan of Treatment Upcoming Encounters Date Type Department Care Team ( Contact Info) Description 08/19/2024 9:00 AM MECHANICAL ENGINEERING COOP Office Visit [facility] Medical Group Multispecialty Care - [address] [place] [address] Soledad Lucas MD 1188 [facility] 157 [place] [address] 12/16/2024 10:40 AM CDT Office Visit [facility] Medical Group Multispecialty Care - [facility] 3 [facility] [address] [place] [address] Ramsey Oakley MD [address] [place] [address] documented as of this encounter Procedures Procedure [...] Depression Total Score: 1 09/29/19 10:03 AM MECHANICAL ENGINEERING COOP documented as of this encounter Care Teams Latex Dipper Relationship Specialty Start Date End Date Soledad Lucas MD 1188 [facility] 157 [place] [address] PCP - General INTERNAL MEDICINE 09/29/21 documented as of this encounter
--- OUTSIDE RECORDS SUMMARY | 2024-08-03 05:04 | XMS_ITS | Encounter Summary ---
Author Organization [facility] Address [address] [place] [address]. [place] [address] Care Team Providers Care Crimper Assembler Name Role Phone Soledad Lucas MD Primary Care Provider [phone] Reason for Visit * Reason Comments Back Pain * Physical Medicine (Routine) - Closed Specialty Diagnoses / Procedures Referred By Prasanth santillan Referred To Contact PHYSICAL THERAPY / [facility] Physical Therapy Diagnoses Disc disease, degenerative, lumbar or lumbosacral Chronic bilateral low back pain with left-sided sciatica Procedures OFFICE/OUTPT VISIT,NEW,LEVL III OFFICE/OUTPT VISIT,NEW,LEVL IV OFFICE/OUTPT VISIT,NEW,LEVL V OFFICE/OUTPT VISIT,EST,LEVL III OFFICE/OUTPT VISIT,EST,LEVL IV OFFICE/OUTPT VISIT,EST,LEVL V Soledad Lucas MD [address] [facility] [address] [place] [address] Phone: tel: fax: [facility] Therapy [address] [place] [address] Phone: tel: fax: Referral ID Status Reason Start Date Expiration Date V isits Requested Visits Authorized [id number] Closed Physical Therapy 04/06/2022 05/06/2023 10 10 Encounter Details Date Type Department Care Team (Late st Contact Info) Description 05/13/2022 10:15 AM CDT Office Visit 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: [employer]; 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/stacking Subjective Note: Patient states that his [...] OBJECTIVE Treatment provided today: Therapeutic Exercise - 96217 Number of Minutes - 13491: 28 Exercise: Quadruped rock back x10 with 10 second hold Exercise: Quadraped thread the needle x10 each Exercise: Seated trunk flexion 3 directions with green ball x10 each Exercise: Staggered stance paloff press with 10# x10 each position Exercise: Hip matrix with foot ER x5 each Exercise: TRX trunk flexion stretch 3x20 seconds Manual Therapy - 62538 Number of Minutes - 19638: 15 Intervention: Prone PA mobilization grade IV [...] Contact Info) Description 08/19/2024 9:00 AM LEAD LOADER [facility] [place] [address] [address] [place] [address] Soledad Lucas MD [address] [place] [address] 12/16/2024 10:40 AM CDT Office Visit [facility]pecialty Care - [address], [address] [place] [phone] Ramsey Oakley MD [address] [place] [address] documented as of this encounter Visit Diagnoses Diagnosis Degenerative disc disease, lumbar- Primary Degeneration of lumbar or lumbosacral intervertebral disc Decreased ROM of trunk and back Chronic bilateral low back pain with left-sided sciatica documented in this encounter Additional Health Concerns Assessment Noted Time PHQ-9 Depression Total Score: 1 09/29/19 22 10:03 AM LEAD LOADER documented as of this encounter Care Teams Crimper Assembler Relationship Specialty Start Date End Date Soledad Lucas MD [address] [address] PCP - General INTERNAL MEDICINE 09/29/21 documented as of this encounter
--- OUTSIDE RECORDS SUMMARY | 2024-08-03 05:04 | XMS_ITS | Encounter Summary ---
Author Organization [facility] Address [address] [place] [address]. [place] [id number] Care Team Providers Care Color Developer Name Role Phone Soledad Lucas MD Primary Care Provider [phone] Reason for Visit * Reason Comments Back Pain * Physical Medicine (Routine) - Closed Specialty Diagnoses / Procedures Referred By Prasanth santillan Referred To Contact PHYSICAL THERAPY / [facility] Physical Therapy Diagnoses Disc disease, degenerative, lumbar or lumbosacral Chronic bilateral low back pain with left-sided sciatica Procedures OFFICE/OUTPT VISIT,NEW,LEVL III OFFICE/OUTPT VISIT,NEW,LEVL IV OFFICE/OUTPT VISIT,NEW,LEVL V OFFICE/OUTPT VISIT,EST,LEVL III OFFICE/OUTPT VISIT,EST,LEVL IV OFFICE/OUTPT VISIT,EST,LEVL V Soledad Lucas MD [address] [facility] [address] [place] [address] Phone: tel: fax: [facility] [address] [place] [address] Phone: tel: fax: Referral ID Status Reason Start Date Expiration Date V isits Requested Visits Authorized [id number] Closed Physical Therapy 04/06/2022 05/06/2023 10 10 Encounter Details Date Type Department Care Team (Late st Contact Info) Description 05/25/2022 4:45 PM CDT Office Visit [facility] Therapy [address] [place] [address] Soledad Lucas MD 118[address] [facility] [address] [place] [address] Nelda Knox PTA Back Pain Social History [...] NA Workers Compensation Injury: No 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 Manual Therapy - 66504 Number of Minutes - 89602: 15 Joint Mobilization: sidelying lumbar/SIJ mobilizations B [...] st Contact Info) Description 08/19/2024 9:00 AM DOPER OPERATOR Office Visit [facility] Mult[facility]pecialty Care - [place] [address] [address] [place] [address] Soledad Lucas MD 1188 [facility] 157 [place] [address] 12/16/2024 10:40 AM CDT Office Visit [facility] Mult[facility]pecialty Care - [facility] [address] [facility] [address] [place] [address] Ramsey Oakley MD [address] [facility] [address] [place] [address] documented as of this encounter Visit Diagnoses Diagnosis Degenerative disc disease, lumbar- Primary Degeneration of lumbar or lumbosacral intervertebral disc Decreased ROM of trunk and back Chronic bilateral low back pain with left-sided sciatica documented in this encounter Additional Health Concerns Assessment Noted Time PHQ-9 Depression Total Score: 1 09/29/19 10:03 AM DOPER OPERATOR documented as of this encounter Care Teams Color Developer Relationship Specialty Start Date End Date Soledad Lucas MD [facility] [address] PCP - General INTERNAL MEDICINE 09/29/21 documented as of this encounter
--- OUTSIDE RECORDS SUMMARY | 2024-08-03 05:04 | XMS_ITS | Encounter Summary ---
Author Organization [facility] - [facility] Address [address] [place] [address] [address] Care Team Providers Care Field Map Technician Name Role Phone Soledad Lucas MD Primary Care Provider [phone] Reason for Visit * Reason Comments ER F/U Pt went to the ER fo r chest pain Encounter Details Date Type Department Care Team (Latest Contact Info) Description 07/13/2022 3:20 PM SOCIAL WORK ASSISTANT Office Visit [facility] Multispecialty Care - [place] [address] [address] [place], [place] [id number] Soledad Lucas MD [address] [place] [address] ER F/U (Pt went to the ER [...] Coronavirus/COVID-19? No / Unsure 07/13/2022 3:18 PM SOCIAL WORK ASSISTANT documented as of this encounter Last Filed Vital Signs Vital Sign Reading Time Taken Comments Blood Pressure 118/81 07/13/2022 3:32 PM SOCIAL WORK ASSISTANT Pulse 82 07/13/2022 3:32 PM SOCIAL WORK ASSISTANT Temperature 36.8 ??C (98.3 ??F) 07/13/2022 3:32 PM CS T Respiratory Rate 18 07/13/2022 3:32 PM SOCIAL WORK ASSISTANT Oxygen Saturation 98% 07/13/2022 3:32 PM SOCIAL WORK ASSISTANT Inhaled Oxygen Concentration - - Weight 102.2 kg (225 lb 3.2 oz) 07/13/2022 3:32 PM SOCIAL WORK ASSISTANT Height 185.4 cm (6' 1 ) 07/13/2022 3:32 PM SOCIAL WORK ASSISTANT Body Mass Index 29.71 07/13/2022 3:32 PM SOCIAL WORK ASSISTANT documented in this encounter Progress Notes * [...] 30 tablet 0 ??? vitamin D2, ergocalciferol, 33828 UNITS capsule Take 1 capsule (50,000 Units [...] was at least in part performed using [employer] and there may be some inherent flaws in this luggage repairer due to the nature of this program. Soledad Lucas MD Internal Medicine [facility], [facility]. AL WORK ASSISTANT documented in this encounter Plan of Treatment Upcoming Encounters Date Type Department Care Team (Late st Contact Info) Description 08/19/2024 9:00 AM SOCIAL WORK ASSISTANT [facility] - [place] [address] [address] [place] [address] Soledad Lucas MD [address] [place] [address] 12/16/2024 10:40 AM CDT Office Visit [facility] Multispecialty [facility] [address] [facility] [address] [place] [address] Ramsey Oakley MD 3 [facility] [address] [place] [address] documented as of this encounter Visit Diagnoses [...] at 1630Indications:Precordial pain Given 07/13/2022 4:06 PM SOCIAL WORK ASSISTANT 60 mg Left Deltoid documented in this encounter Additional Health Concerns Assessment Noted Time PHQ-9 Depression Total Score: 1 09/29/19 10:03 AM SOCIAL WORK ASSISTANT documented as of this encounter Care Teams Field Map Technician Relationship Specialty Start Date End Date Soledad Lucas MD [facility] [address] PCP - General INTERNAL MEDICINE 09/29/21 documented as of this encounter
--- OUTSIDE RECORDS SUMMARY | 2024-08-03 05:04 | XMS_ITS | Encounter Summary ---
Author Organization [facility] Address [address] [place] [address]. [place], [place] [address] [place] [address] Care Team Providers Care Transit Authority Police Officer Name Role Phone Soledad Lucas MD Primary Care Provider [phone] Reason for Visit * Reason Onset Date Comments Called To Cancel Office Appt. 05/30/2022 Encounter Details Date Type Department Care Team (Late st Contact Info) Description 05/30/2022 Telephone [facility] Physical Therapy [address] [place] [address] Rene Segura, PT [place], [place] [phone] Called To Cancel Office Appt. Social History [...] st Contact Info) Description 08/19/2024 9:00 AM SET UP MECHANIC STAMPING MACHINES Office Visit [facility] Mult[facility]pecialty Care - [place] [address] [address] [place] [address] Soledad Lucas MD 1188 [facility] 157 [place] [address] 12/16/2024 10:40 AM CDT Office Visit [facility] Multispecialty [facility] [address] [facility] [address] [place] [address] Ramsey Oakley MD 3 [facility] [address] [place] [address] documented as of this encounter Visit Diagnoses Not on filedocumented in this encounter Additional Health Concerns Assessment Noted Time PHQ-9 Depression Total Score: 1 09/29/19 10:03 AM SET UP MECHANIC STAMPING MACHINES documented as of this encounter Care Teams Transit Authority Police Officer Relationship Specialty Start Date End Date Soledad Lucas MD 1188 [facility] [address] [place] [address] PCP - General INTERNAL MEDICINE 09/29/21 documented as of this encounter
--- OUTSIDE RECORDS SUMMARY | 2024-08-03 05:04 | XMS_ITS | Encounter Summary ---
Author Organization [facility] Address [address] [place] [address]. [place], [place] [address] [place] [address] Care Team Providers Care Call Center Team Leader Name Role Phone Soledad Lucas MD Primary Care Provider [phone] Encounter Details Date Type Department Care Team [...] Coronavirus/COVID-19? No / Unsure 07/06/2022 9:53 AM AIR BAG STRIPPER documented as of this encounter Plan of Treatment Upcoming Encounters Date Type Department Care Team (Late st Contact Info) Description 08/19/2024 9:00 AM AIR BAG STRIPPER Office Visit [facility] Multispecialty Care - [place] [address] [address] [place] [address] Soledad Lucas MD [address] [place] [address] [address] [place] [address] 12/16/2024 10:40 AM CDT Office Visit [facility] Mult[facility]ty Care - [facility] [address] [facility] [address] [place] [address] Ramsey Oakley MD 3 [facility] [address] [place] [address] documented as of this encounter Visit Diagnoses Not on filedocumented in this encounter Additional Health Concerns Infection Onset Date Last Indicated Resolved Time COVID-19 Rule Out 07/06/2022 07/06/2022 07/06/2022 3:14 PM AIR BAG STRIPPER COVID-19 Rule Out 07/06/2022 07/06/2022 07/08/2022 1:45 AM AIR BAG STRIPPER Assessment Noted Time PHQ-9 Depression Total Score: 1 09/29/19 22 10:03 AM AIR BAG STRIPPER documented as of this encounter Care Teams Call Center Team Leader Relationship Specialty Start Date End Date Soledad Lucas MD [address] [address] PCP - General INTERNAL MEDICINE 09/29/21 documented as of this encounter
--- OUTSIDE RECORDS SUMMARY | 2024-08-03 05:04 | XMS_ITS | Encounter Summary ---
Author Organization [facility] Address [address] [place] [address]. [address] [address] Care Team Providers Care Power Driven Brush Maker Name Role Phone Soledad Lucas MD Primary Care Provider [phone] Encounter Details Date Type Department Care Team (Late st Contact Info) Description 07/05/2022 Orders Only [facility] Multispecialty Care - [place] [address] [address] [place], [place] [address] Soledad Lucas MD [address] [place] [address] [address] [place] [address] Social History Tobacco Use Types [...] Coronavirus/COVID-19? No / Unsure 07/06/2022 9:53 AM PURIFICATION DIRECTOR documented as of this encounter Plan of Treatment Upcoming Encounters Date Type Department Care Team (Late st Contact Info) Description 08/19/2024 9:00 AM PURIFICATION DIRECTOR Office Visit [facility] Multispecialty Care - [place] [address] [address] [place] [address] Soledad Lucas MD [address] [address] 12/16/2024 10:40 AM CDT Office Visit [facility] Multispecialty Care - [facility] [address] [facility] [address] [place] [address] Ramsey Oakley MD 3 [facility] [address] [place] [address] documented as of this encounter Visit Diagnoses Diagnosis Primary osteoarthritis of left knee Primary localized osteoarthrosis, lower leg documented in this encounter Additional Health Concerns Infection Onset Date Last Indicated Resolved Time COVID-19 Rule Out 07/06/2022 07/06/2022 07/06/2022 3:14 PM PURIFICATION DIRECTOR COVID-19 Rule Out 07/06/2022 07/06/2022 07/08/2022 1:45 AM PURIFICATION DIRECTOR Assessment Noted Time PHQ-9 Depression Total Score: 1 09/29/19 22 10:03 AM PURIFICATION DIRECTOR documented as of this encounter Care Teams Power Driven Brush Maker Relationship Specialty Start Date End Date Soledad Lucas MD [address] [place] [address] PCP - General INTERNAL MEDICINE 09/29/21 documented as of this encounter
--- OUTSIDE RECORDS SUMMARY | 2024-08-03 05:04 | XMS_ITS | Encounter Summary ---
Author Organization [facility] Address [address] [place] [address]. [place], [place] [address] [place] [address] Care Team Providers Care Cisco Network Architect Name Role Phone Soledad Lucas MD Primary Care Provider [phone] Reason for Visit * Reason Comments Lab [...] Coronavirus/COVID-19? No / Unsure 08/05/2022 10:33 AM RANCH HAND SUPERVISOR documented as of this encounter Plan of Treatment Upcoming Encounters Date Type Department Care Team ( Contact Info) Description 08/19/2024 9:00 AM RANCH HAND SUPERVISOR Office Visit [facility] Multispecialty Care - [address] [place] [address] Soledad Lucas MD 1188 [facility] 157 [place] [address] 12/16/2024 10:40 AM CDT Office Visit [facility] Mult[facility]ialty Care - [facility] [address] [facility] [place] [address] Ramsey Oakley MD [address] [facility] [address] [place] [address] documented as of this encounter Procedures Procedure Name Priority Date/Time Associated Diagnosis Comments OUTSIDE LAB COVID-19 (SCAN ORDER) Routine 08/21/2022 documented in this encounter Results * OUTSIDE LAB COVID-19 (SCAN) (08/21/2022) CORONAVIRUS SARS COV 2 PCR (RESP) NOT DETECTED NOT DETECTED HS ONBASE 08/21/2022 [facility] Scanned SCANNING Final Resu lt [facility] ONBASE documented in this encounter Visit Diagnoses Not on filedocumented in this encounter Additional Health Concerns Assessment Noted Time PHQ-9 Depression Total Score: 1 09/29/19 10:03 AM RANCH HAND SUPERVISOR documented as of this encounter Care Teams Cisco Network Architect Relationship Specialty Start Date End Date Soledad Lucas MD 1188 [facility] 157 [place] [address] PCP - General INTERNAL MEDICINE 09/29/21 documented as of this encounter
--- OUTSIDE RECORDS SUMMARY | 2024-08-03 05:04 | XMS_ITS | Encounter Summary ---
Author Organization [facility] Address [address] [place] [address]. [address] [address] Care Team Providers Care Classroom Teacher Name Role Phone Soledad Lucas MD Primary Care Provider [phone] Reason for Visit * Reason Comments Lumbar Radiculopathy * Physical Medicine (Routine) - Closed Specialty Diagnoses / Procedures Referred By Prasanth santillan Referred To Contact PHYSICAL THERAPY / [facility] Physical Therapy Diagnoses Disc disease, degenerative, lumbar or lumbosacral Chronic bilateral low back pain with left-sided sciatica Procedures OFFICE/OUTPT VISIT,NEW,LEVL III OFFICE/OUTPT VISIT,NEW,LEVL IV OFFICE/OUTPT VISIT,NEW,LEVL V OFFICE/OUTPT VISIT,EST,LEVL III OFFICE/OUTPT VISIT,EST,LEVL IV OFFICE/OUTPT VISIT,EST,LEVL V Soledad Lucas MD [address] [facility] [address] [place] [address] Phone: tel: fax: [facility] Physical Therapy [address] [place] [address] Phone: tel: fax: Referral ID Status Reason Start Date Expiration Date V isits Requested Visits Authorized [id number] Closed Physical Therapy 04/06/2022 05/06/2023 10 10 Encounter Details Date Type Department Care Team (Late st Contact Info) Description 05/23/2022 4:45 PM CDT Office Visit [facility] Physical Therapy [address] [place] [address] Soledad Lucas MD [address] [facility] [address] [place] [address] Rene Segura, [place] [address] Lumbar Radiculopathy Social History Tobacco Use Types [...] NA Workers Compensation Injury: No 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 This usually improves with activity. Mild LBP this afternoon Compliance to Home Program: yes Reported Falls since last visit: none Medications changes since last visit : none Pain Current Location of Pain: lower back.. OBJECTIVE Treatment provided today: Therapeutic Exercise - 41580 Number of Minutes - 36924: 28 Exercise: Quadruped rock back x10 with [...] with support x10 ea Manual Therapy - 05364 Number of Minutes - 30180: 10 Joint Mobilization: sidelying lumbar/SIJ mobilizations B [...] st Contact Info) Description 08/19/2024 9:00 AM FAST FOOD CREW LEAD Office Visit [facility] Group Multispecialty Care - [address] [place] [address] Soledad Lucas MD [address] [address] 12/16/2024 10:40 AM CDT Office Visit [facility] Multispecialty Care - [facility] 3 [facility] [place] [address] Ramsey Oakley MD [address] [facility] [address] [place] [address] documented as of this encounter Visit Diagnoses Diagnosis Degenerative disc disease, lumbar- Primary Degeneration of lumbar or lumbosacral intervertebral disc Decreased ROM of trunk and back Chronic bilateral low back pain with left-sided sciatica documented in this encounter Additional Health Concerns Assessment Noted Time PHQ-9 Depression Total Score: 1 09/29/19 10:03 AM FAST FOOD CREW LEAD documented as of this encounter Care Teams Classroom Teacher Relationship Specialty Start Date End Date Soledad Lucas MD [address] [address] PCP - General INTERNAL MEDICINE 09/29/21 documented as of this encounter
--- OUTSIDE RECORDS SUMMARY | 2024-08-03 05:04 | XMS_ITS | Encounter Summary ---
Author Organization [facility] Address [address] [place] [address]. [place], [place] [address] [place] [address] Care Team Providers Care Pan Devulcanizer Name Role Phone Soledad Lucas MD Primary Care Provider [phone] Encounter Details Date Type Department Care Team (Latest Contact Info) Description 06/13/2022 - 06/13/2022 11:59 PM ORANGE PICKER MACHINE OPERATOR Hospital Encounter [facility] [address] [place] [address] Soledad Lucas MD [address] [address] Discharge Disposition: Home or Self [...] Coronavirus/COVID-19? No / Unsure 06/13/2022 1:43 PM ORANGE PICKER MACHINE OPERATOR documented as of this encounter Medications at [...] tabletIndications :Moderate persistent asthma with acute exacerbation ([facility]) 40 mg daily for 5 days then 30 mg daily for 3 days then 20 mg daily for 3 days then 10 mg daily 5 days then stop. 40 tablet 06/14/2022 2 vitamin D2, ergocalciferol, 61165 UNITS capsuleIndication s:Vitamin D deficiency Take 1 capsule (50,000 Units total) by mouth weekly. 12 capsule 1 09/29/2021 3 documented as of this encounter Plan of Treatment Upcoming Encounters Date Type Department Care Team (Late st Contact Info) Description 08/19/2024 9:00 AM ORANGE PICKER MACHINE OPERATOR Office Visit [facility] Multispecialty Care - [address] [place] [address] Soledad Lucas MD [address] [place] [address] 12/16/2024 10:40 AM CDT Office Visit [facility] Multispecialty [facility] 3 [facility], [address] [place] [address] Ramsey Oakley MD 3 [facility] [address] [place] [address] documented as of this encounter Visit Diagnoses Not on filedocumented in this encounter Additional Health Concerns Infection Onset Date Last Indicated Resolved Time COVID-19 Rule Out 06/13/2022 06/13/2022 06/13/2022 2:50 PM ORANGE PICKER MACHINE OPERATOR COVID-19 Rule Out 06/13/2022 06/13/2022 06/14/2022 1:24 PM ORANGE PICKER MACHINE OPERATOR Assessment Noted Time PHQ-9 Depression Total Score: 1 09/29/19 10:03 AM ORANGE PICKER MACHINE OPERATOR documented as of this encounter Care Teams Pan Devulcanizer Relationship Specialty Start Date End Date Soledad Lucas MD [address] [address] PCP - General INTERNAL MEDICINE 09/29/21 documented as of this encounter
--- OUTSIDE RECORDS SUMMARY | 2024-08-03 05:04 | XMS_ITS | Encounter Summary ---
Author Organization [facility] Address [address] [place] [address] [address] Care Team Providers Care Pharmacy Technician Infusion Name Role Phone Soledad Lucas MD Primary Care Provider [phone] Reason for Visit * Reason Onset Date Comments Medication 12/05/2022 Encounter Details Date Type Department Care Team (Late st Contact Info) Description 12/05/2022 Telephone [facility] Medical Group Multispecialty Care - [place] [address] [address] [place] [address] [place] [address] [place] [address] [address] [place] [address] Medication Social History Tobacco Use [...] Info) Description 08/19/2024 9:00 AM FOOD SERVICE TRAY ATTENDANT [facility] - [place] [address] [address] [address] [place] [address] Soledad Lucas MD [address] [place] [address] 12/16/2024 10:40 AM CDT [facility] 3 [facility] [address] [place] [address] Ramsey Oakley MD 3 [facility] [address] [place] [address] documented as of this encounter Visit Diagnoses Diagnosis Primary osteoarthritis of left knee Primary localized osteoarthrosis, lower leg Chronic bilateral low back pain with left-sided sciatica documented in this encounter Additional Health Concerns Assessment Noted Time PHQ-9 Depression Total Score: 1 09/29/19 22 10:03 AM FOOD SERVICE TRAY ATTENDANT documented as of this encounter Care Teams Pharmacy Technician Infusion Relationship Specialty Start Date End Date Soledad Lucas MD [address] [place] [address] PCP - General INTERNAL MEDICINE 09/29/21 documented as of this encounter
--- OUTSIDE RECORDS SUMMARY | 2024-08-03 05:04 | XMS_ITS | Encounter Summary ---
Author Organization [facility] Address [address] [place] [address]. [place], [place] [address] [place] [address] Care Team Providers Care Pricing Strategist Name Role Phone Soledad Lucas MD Primary Care Provider [phone] Encounter Details Date Type Department Care Team [...] st Contact Info) Description 08/19/2024 9:00 AM BEAM CARRIER HAULER PUSHER Office Visit [facility] Multispecialty Care - [place] [address] [address] [address] [place] [address] Soledad Lucas MD [address] [place] [address] [address] [place] [address] 12/16/2024 10:40 AM CDT Office Visit [facility] Medical [facility] Multispecialty Care - [facility] 3 [facility] [address] [place] [address] Ramsey Oakley MD 3 [facility] [address] [place] [address] documented as of this encounter Visit Diagnoses Not on filedocumented in this encounter Additional Health Concerns Assessment Noted Time PHQ-9 Depression Total Score: 1 09/29/19 22 10:03 AM BEAM CARRIER HAULER PUSHER documented as of this encounter Care Teams Pricing Strategist Relationship Specialty Start Date End Date Soledad Lucas MD [address] [address] PCP - General INTERNAL MEDICINE 09/29/21 documented as of this encounter
--- OUTSIDE RECORDS SUMMARY | 2024-08-03 05:04 | XMS_ITS | Encounter Summary ---
Author Organization [facility] Address [address] [place] [address]. [place], [place] [address] [place] [address] Care Team Providers Care Supervisor Asbestos Removal Name Role Phone Soledad Lucas MD Primary Care Provider [phone] Encounter Details Date Type Department Care Team [...] Info) Description 08/19/2024 9:00 AM FOOD SERVICE SUPERVISOR Office Visit [facility] Medical Group Multispecialty Care - [place] [address] [address] [place] [address] Soledad Lucas MD [address] [place] [address] [address] [place] [address] 12/16/2024 10:40 AM CDT Office Visit [facility] Medical Group Multispecialty Care - [facility] 3 [facility] [address] [place] [address] Ramsey Oakley MD 3 [facility] [address] [place] [address] documented as of this encounter Visit Diagnoses Not on filedocumented in this encounter Additional Health Concerns Assessment Noted Time PHQ-9 Depression Total Score: 1 09/29/19 22 10:03 AM FOOD SERVICE SUPERVISOR documented as of this encounter Care Teams Supervisor Asbestos Removal Relationship Specialty Start Date End Date Soledad Lucas MD [address] [facility] [address] [place] [address] PCP - General INTERNAL MEDICINE 09/29/21 documented as of this encounter
--- OUTSIDE RECORDS SUMMARY | 2024-08-03 05:04 | XMS_ITS | Encounter Summary ---
Author Organization [facility] Address [address] [place] [address]. [place], [place] [address] [place] [address] Care Team Providers Care Medical Social Consultant Name Role Phone Soledad Lucas MD Primary Care Provider [phone] Encounter Details Date Type Department Care Team [...] Coronavirus/COVID-19? No / Unsure 08/05/2022 10:33 AM PLYWOOD PATCHER documented as of this encounter Plan of Treatment Upcoming Encounters Date Type Department Care Team (Late st Contact Info) Description 08/19/2024 9:00 AM PLYWOOD PATCHER Office Visit [facility] Medical Group Multispecialty Care - [place] [address] [address] [address] [place] [address] Soledad Lucas MD [address] [place] [address] [address] [place] [address] 12/16/2024 10:40 AM CDT Office Visit [facility] Medical [facility] Multispecialty Care - [facility] 3 [facility] [place] [address] Ramsey Oakley MD 3 [facility] [address] [place] [address] documented as of this encounter Visit Diagnoses Not on filedocumented in this encounter Additional Health Concerns Assessment Noted Time PHQ-9 Depression Total Score: 1 09/29/19 22 10:03 AM PLYWOOD PATCHER documented as of this encounter Care Teams Medical Social Consultant Relationship Specialty Start Date End Date Soledad Lucas MD [address] [address] PCP - General INTERNAL MEDICINE 09/29/21 documented as of this encounter
--- OUTSIDE RECORDS SUMMARY | 2024-08-03 05:04 | XMS_ITS | Encounter Summary ---
Author Organization [facility] Address [address] [place] [address]. [address] [address] Care Team Providers Care Traveling Engineer Name Role Phone Soledad Lucas MD Primary Care Provider [phone] Reason for Referral * Surgical (Routine) - Closed Specialty Diagnoses / Procedures Referred By Prasanth santillan Referred To Contact NEUROSURGERY Diagnoses Chronic bilateral low back pain with left-sided sciatica Procedures OFFICE/OUTPT VISIT,NEW,LEVL III OFFICE/OUTPT VISIT,NEW,LEVL IV OFFICE/OUTPT VISIT,NEW,LEVL V OFFICE/OUTPT VISIT,EST,LEVL III OFFICE/OUTPT VISIT,EST,LEVL IV OFFICE/OUTPT VISIT,EST,LEVL V Soledad Lucas MD [address] [facility] [address] [place] [address] Phone: tel: fax: [facility] Medical Group Multispecialty Care - [facility] 3 [facility], [address] [place] [address] Phone: tel: fax: Referral ID Status Reason Start Date Expiration Date V isits Requested Visits Authorized [id number] Closed Specialty Services 05/10/2022 06/11/2023 1 1 Reason for Visit * Reason Onset Date Comments Referral 05/10/2022 Encounter Details Date Type Department Care Team (Late Contact Info) Description 05/10/2022 Telephone [facility] Medical [facility] Multispecialty Care - [address] [place] [address] Soldead Lucas MD [address] [address] Referral Social History Tobacco Use Types Packs/Day [...] st Contact Info) Description 08/19/2024 9:00 AM CORRECTION WARDEN Office Visit [facility] Multispecialty Care - [address] [place] [address] Soledad Lucas MD [address] [address] 12/16/2024 10:40 AM CDT Office Visit [facility] Multispecialty [facility] 3 [facility] [address] [place] [address] Ramsey Oakley MD 3 [facility] [address] [place] [address] Scheduled Referrals Name Type Priority Associated Diagnoses Orde r Schedule Ambulatory referral to Neurosurgery ([facility]) Referral Routine Chronic bilateral low back pain with left-sided sciatica Ordered: 05/10/2022 documented as of this encounter Visit Diagnoses Diagnosis Chronic bilateral low back pain with left-sided sciatica- Primary documented in this encounter Additional Health Concerns Assessment Noted Time PHQ-9 Depression Total Score: 1 09/29/19 22 10:03 AM CORRECTION WARDEN documented as of this encounter Care Teams Traveling Engineer Relationship Specialty Start Date End Date Soledad Lucas MD [address] [address] PCP - General INTERNAL MEDICINE 09/29/21 documented as of this encounter
--- OUTSIDE RECORDS SUMMARY | 2024-08-03 05:04 | XMS_ITS | Encounter Summary ---
Author Organization [facility] Address [address] [place] [address]. [place], [place] [address] [place] [address] Care Team Providers Care Pe Electrical Engineer Name Role Phone Soledad Lucas MD Primary Care Provider [phone] Encounter Details Date Type Department Care Team [...] st Contact Info) Description 08/19/2024 9:00 AM EMERGENCY SERVICES PROFESSIONAL Office Visit [facility] Multispecialty Care - [place] [address] [address] [address] [place] [address] Soledad Lucas MD [address] [place] [address] [address] [place] [address] 12/16/2024 10:40 AM CDT Office Visit [facility] Mult[facility]pecialty Care - [facility] 3 [facility] [address] [place] [address] Ramsey Oakley MD 3 [facility] [address] [place] [address] documented as of this encounter Visit Diagnoses Not on filedocumented in this encounter Additional Health Concerns Assessment Noted Time PHQ-9 Depression Total Score: 1 09/29/19 22 10:03 AM EMERGENCY SERVICES PROFESSIONAL documented as of this encounter Care Teams Pe Electrical Engineer Relationship Specialty Start Date End Date Soledad Lucas MD [address] [address] PCP - General INTERNAL MEDICINE 09/29/21 documented as of this encounter
--- OUTSIDE RECORDS SUMMARY | 2024-08-03 05:04 | XMS_ITS | Encounter Summary ---
Author Organization [facility] Address [address] [place] [address]. [place] [address] Care Team Providers Care Technical Sales Advisor Name Role Phone Soledad Lucas MD Primary Care Provider [phone] Reason for Referral * Consultation (Urgent) - Closed Specialty Diagnoses / Procedures Referred By Prasanth santillan Referred To Contact ORTHOPAEDIC SURGERY Diagnoses Primary osteoarthritis of right knee Primary osteoarthritis of left knee Procedures OFFICE/OUTPT VISIT,NEW,LEVL III OFFICE/OUTPT VISIT,NEW,LEVL IV OFFICE/OUTPT VISIT,NEW,LEVL V OFFICE/OUTPT VISIT,EST,LEVL III OFFICE/OUTPT VISIT,EST,LEVL IV OFFICE/OUTPT VISIT,EST,LEVL V Soledad Lucas MD 1188 [facility] 157 [place] [address] Phone: tel: fax: Scott Fletcher MD [address] [facility] [address] [place] [address] Phone: tel: fax: Referral ID Status Reason Start Date Expiration Date V isits Requested Visits Authorized [id number] Closed Specialty Services 11/21/2022 11/22/2023 99 99 Scheduling Instructions Please send to Dr. Fletcher for his left knee replacement ?? [phone] Reason for Visit * Reason Onset Date Comments Referral 11/21/2022 Encounter Details Date Type Department Care Team (Late st Contact Info) Description 11/21/2022 Telephone [facility] - [address] [place] [address] Soledad Lucas MD [address] [address] Referral Social History Tobacco Use Types Packs/Day [...] Fletcher for his left knee replacement ?? [phone] * Eugenie Ramirez MA - 11/21/2022 9:41 AM CDT Pt is requesting referral to Dr. Fletcher for his left knee replacement [phone] documented in this encounter Plan of Treatment Upcoming Encounters Date Type Department Care Team (Late st Contact Info) Description 08/19/2024 9:00 AM LABORER TREE TAPPING [facility] - [place] [address] [address] [place] [address] Soledad Lucas MD [address] [address] 12/16/2024 10:40 AM CDT Office Visit [facility] Medical Group Multispecialty Care - [facility] 3 [facility] [address] [place] [address] Ramsey Oakley MD 3 [facility] [address] [place] [address] Scheduled Referrals Name Type Priority Associated Diagnoses [...] Total Score: 1 09/29/19 22 10:03 AM LABORER TREE TAPPING documented as of this encounter Care Teams Technical Sales Advisor Relationship Specialty Start Date End Date Soledad Lucas MD [address] [address] PCP - General INTERNAL MEDICINE 09/29/21 documented as of this encounter
--- OUTSIDE RECORDS SUMMARY | 2024-08-03 05:04 | XMS_ITS | Encounter Summary ---
Author Organization [facility] Address [address] [place] [address]. [place], [place] [address] [place] [address] Care Team Providers Care Exchange Trouble Shooter Name Role Phone Soledad Lucas MD Primary Care Provider [phone] Encounter Details Date Type Department Care Team [...] Coronavirus/COVID-19? No / Unsure 08/29/2022 10:33 AM RETAIL ACCOUNT REPRESENTATIVE documented as of this encounter Plan of Treatment Upcoming Encounters Date Type Department Care Team (Late st Contact Info) Description 08/19/2024 9:00 AM RETAIL ACCOUNT REPRESENTATIVE Office Visit [facility] Medical Group Multispecialty Care - [place] [address] [address] [place] [address] Soledad Lcuas MD [address] [place] [address] [address] [place] [address] 12/16/2024 10:40 AM CDT Office Visit [facility] Medical Group Multispecialty Care - [facility] 3 [facility] [address] [place] [address] Ramsey Oakley MD 3 [facility] [address] [place] [address] documented as of this encounter Visit Diagnoses Not on filedocumented in this encounter Additional Health Concerns Assessment Noted Time PHQ-9 Depression Total Score: 1 09/29/19 22 10:03 AM RETAIL ACCOUNT REPRESENTATIVE documented as of this encounter Care Teams Exchange Trouble Shooter Relationship Specialty Start Date End Date Soledad Lucas MD [address] [address] PCP - General INTERNAL MEDICINE 09/29/21 documented as of this encounter
--- OUTSIDE RECORDS SUMMARY | 2024-08-03 05:04 | XMS_ITS | Encounter Summary ---
Author Organization [facility] Address [address] [place] [address]. [place], [place] [address] [place] [address] Care Team Providers Care Dental Appliance Mechanic Name Role Phone Soledad Lucas MD Primary Care Provider Reason for Visit * Reason Comments Cough Patient states the c ough has been going on since last Monday. Having a hard time breathing because of it Encounter Details Date Type Department Care Team (Latest Contact Info) Description 06/13/2022 1:40 PM BELT BUILDER HELPER Office Visit [facility] Medical Group Multispecialty Care - [place] [address] [address] [place], [place] [address] Soledad Lucas MD [address] [place] [address] 157 [place] [address] Cough (Patient states the cough has been [...] Coronavirus/COVID-19? No / Unsure 06/13/2022 1:43 PM BELT BUILDER HELPER documented as of this encounter Last Filed Vital Signs Vital Sign Reading Time Taken Comments Blood Pressure 130/80 06/13/2022 4:24 PM BELT BUILDER HELPER Pulse 82 06/13/2022 2:07 PM BELT BUILDER HELPER Temperature 36.2 ??C (97.1 ??F) 06/13/2022 2:07 PM CS T Respiratory Rate 18 06/13/2022 2:07 PM BELT BUILDER HELPER Oxygen Saturation 96% 06/13/2022 2:07 PM BELT BUILDER HELPER Inhaled Oxygen Concentration - - Weight 101.7 kg (224 lb 3.2 oz) 06/13/2022 2:07 PM BELT BUILDER HELPER Height 185.4 cm (6' 1 ) 06/13/2022 2:07 PM BELT BUILDER HELPER Body Mass Index 29.58 06/13/2022 2:07 PM BELT BUILDER HELPER documented in this encounter Patient Instructions * Patient Instructions* Soledad Lucas MD - 06/13/2022 1:40 PM BELT BUILDER HELPER Please go an urgent care or ER to receive nebulization. Please get your nebulizer from [facility]. BUILDER HELPER * Attachments The following attachments cannot be sent through Care Everywhere. * Asthma in Adults (Georgian) documented in this encounter Progress Notes * [...] 40 tablet 0 ??? vitamin D2, ergocalciferol, 55534 UNITS capsule Take 1 capsule (50,000 Units [...] predniSONE (DELTASONE) 10 mg tablet azithromycin (ZITHROMAX Z-ABEB) 250 MG tablet ipratropium-albuterol (DUONEB) 0.5-2.5 (3) [...] was at least in part performed using Vudu speak and there may be some inherent flaws in this inside plant supervisor due to the nature of this program. Soledad Lucas MD Internal Medicine [facility], [facility]. BUILDER HELPER documented in this encounter Plan of Treatment Upcoming Encounters Date Type Department Care Team (Late st Contact Info) Description 08/19/2024 9:00 AM BELT BUILDER HELPER Office Visit [facility] Medical [facility] Multispecialty Care - [place] [address] [place] [address] [address] [place] [address] Soledad Lucas MD [address]8 [facility] [address] [place] [address] 12/16/2024 10:40 AM CDT Office Visit [facility] Medical [facility] Multispecialty Care - [facility] 3 [facility] [address] [place] [address] Ramsey Oakley MD 3 [facility] [address] [place] [address] documented as of this encounter Procedures Procedure Name Priority Date/Time Associated Diagnosis Comments CORONAVIRUS (COVID 19) PCR Routine 06/13/2022 2:51 PM BELT BUILDER HELPER Acute bronchitis, unspecified organism CORONAVIRUS (COVID-19) INFLUENZA A & B ANTIGEN IA PANEL Routine 06/13/2022 Moderate persistent asthma with acute exacerbation (HHS/HCC) documented in this encounter Results * CORONAVIRUS (COVID 19) PCR (06/13/2022 2:51 PM BELT BUILDER HELPER) SPEC DESCRIPTION NASAL 06/13/20 22 2:51 PM BELT BUILDER HELPER [facility] CORONAVIRUS SARS COV 2 PCR (RESP) NEGATIVE NEGATIVE 06/14/2022 1:24 PM BELT BUILDER HELPER [facility] Comment: THE SARS-CoV-2 TEST HAS BEEN AUTHORIZED BY THE FDA UNDER AN EUA FOR USE BY AUTHORIZED LABORATORIES. PERFORMED BY NUCLEIC ACID AMPLIFICATION PCR FIRST TEST NO 06/13/2022 2:51 PM BELT BUILDER HELPER [facility] EMPLOYED IN HEALTHCARE NO 06/13/2022 2:51 PM BELT BUILDER HELPER [facility] SYMPTOMATIC DEFINED BY CDC YES 06/13/2022 2:51 PM BELT BUILDER HELPER [facility] DATE OF SYMPTOM ONSET 2022060706/13/2022 2:51 PM BELT BUILDER HELPER [facility] HOSPITALIZATION STATUS NO 06/13/2022 2:51 PM BELT BUILDER HELPER [facility] PATIENT IN ICU NO 06/13/2022 2:51 PM BELT BUILDER HELPER [facility] RESIDENT OF [facility] NO 06/13/2022 2:51 PM BELT BUILDER HELPER [facility] NASOPHARYNGEAL SWAB / Unknown 06/13/2022 2:51 PM BELT BUILDER HELPER Soledad Lucas MD MICROBIOLOGY - GENERAL ORDERABLE S Final Result [facility] [address] [place] [address], [place] [phone] * CORONAVIRUS (COVID-19) INFLUENZA A & B ANTIGEN IA PANEL (06/13/2022) Pathologist [facility] CORONAVIRUS ANTIGEN IA NEGATIVE NEGATIVE [address], [facility] INFLUENZA A NEGATIVE NEGATIVE [address], [facility] INFLUENZA B NEGATIVE NEGATIVE [address], [facility] Internal Control: VALID VALID [address], [place] NASAL STRUCTURE / Unknown 06/13/2022 Soledad Lucas MD MICROBIOLOGY - GENERAL ORDERABLE S Final Result [address], [facility] [address] [place] [address], [place] [phone] documented in this encounter Visit Diagnoses Diagnosis [...] acute exacerbation (HHS/HCC) Given 06/13/2022 2:38 PM BELT BUILDER HELPER 40 mg Right Deltoid documented in this encounter Additional Health Concerns Infection Onset Date Last Indicated Resolved Time COVID-19 Rule Out 06/13/2022 06/13/2022 06/13/2022 2:50 PM BELT BUILDER HELPER Assessment Noted Time PHQ-9 Depression Total Score: 1 09/29/19 22 10:03 AM BELT BUILDER HELPER documented as of this encounter Care Teams Dental Appliance Mechanic Relationship Specialty Start Date End Date Soledad Lucas MD [address] [address] PCP - General INTERNAL MEDICINE 09/29/21 documented as of this encounter
--- OUTSIDE RECORDS SUMMARY | 2024-08-03 05:04 | XMS_ITS | Encounter Summary ---
Author Organization [facility] Address [address] [place] [address]. [place], [place] [address] [place] [address] Care Team Providers Care Blueprint Reproducer Name Role Phone Soledad Lucas MD Primary Care Provider [phone] Encounter Details Date Type Department Care Team (Latest Contact Info) Description 08/05/2022 8:11 PM FURNACE CHECKER - 08/05/2022 11:59 PM FURNACE CHECKER Hospital Encounter [facility] [address] [place] [address] Soledad Lucas MD 118[address] [facility] [address] [place] [address] Discharge Disposition: Home or Self Care [...] Coronavirus/COVID-19? No / Unsure 08/05/2022 10:33 AM FURNACE CHECKER documented as of this encounter Medications at [...] 30 tablet 07/05/2022 3 vitamin D2, ergocalciferol, 37287 UNITS capsuleIndication s:Vitamin D deficiency Take 1 capsule (50,000 Units total) by mouth weekly. 12 capsule 1 09/29/2021 3 documented as of this encounter Plan of Treatment Upcoming Encounters Date Type Department Care Team (Late st Contact Info) Description 08/19/2024 9:00 AM FURNACE CHECKER [facility] [address] [place] [address] Soledad Lucas MD [address] [place] [address] [address] [place] [address] 12/16/2024 10:40 AM CDT [facility] [place] [facility] 3 [facility]., [address] [place] [phone] Ramsey Oakley MD 3 [facility] [address] [place] [address] documented as of this encounter Procedures Procedure Name Priority Date/Time Associated Diagnosis Comments CULTURE, ROUTINE W/ GRAM STAIN Routine 08/05/2022 8:13 PM FURNACE CHECKER CELL COUNT W/ DIFF BODY FLUID Routine 08/05/2022 12:01 PM FURNACE CHECKER documented in this encounter Results * CULTURE, ROUTINE W/ GRAM STAIN (AEROBIC) (08/05/2022 8:13 PM FURNACE CHECKER) SPEC DESCRIPTION KNEE,LEFT 08/05/2022 8:13 PM FURNACE CHECKER [facility] SPECIAL REQUESTS NO SPECIAL REQUEST 08/05/2022 8:13 PM FURNACE CHECKER [facility] GRAM STAIN RESULT MODERATE NEUTROPHILS SEEN 08/05/2022 9:52 PM FURNACE CHECKER [facility] GRAM STAIN RESULT NO ORGANISMS SEEN 08/05/2022 9:52 PM FURNACE CHECKER [facility] CULTURE RESULT NO GROWTH 5 DAYS 08/11/2022 11:38 AM FURNACE CHECKER [facility] STRUCTURE OF LEFT KNEE REGION / Unknown 08/05/2022 8:13 PM FURNACE CHECKER 08/05/2022 9:20 PM FURNACE CHECKER us Soledad Lucas MD MICROBIOLOGY - GENERAL ORDERABLE S Final Result Performing Organization Address City/State/[facility] Co de Phone Number [facility] [address] [place] [address], [place] [phone] [id number] * CELL COUNT W/ DIFF BODY FLUID (08/05/2022 12:01 PM FURNACE CHECKER) SOURCE (FLUID) LT KNEE 08/05/2022 9:37 PM FURNACE CHECKER [facility] WBC (FLUID) 0.114 x10'3/uL 08/05/2022 9:37 PM FURNACE CHECKER [facility] Comment:REFERENCE RANGE NOT ESTABLISHED RBC (FLUID) <0.001 x10'6/uL 08/05/2022 9:37 PM FURNACE CHECKER [facility] Comment:REFERENCE RANGE NOT ESTABLISHED DIFFERENTIAL MANUAL DIFFERENTIAL PERFORMED ON CONCENTRATED CYTOSPIN 08/05/2022 8:13 PM [facility] CELLS COUNTED 100 No COUNTED 08/06/2022 12:09 AM FURNACE CHECKER [facility] SEGS (FLUID) 2 % 08/05/2022 11:41 PM [facility] LYMPHS (FLUID) 8 % 08/05/2022 11:41 PM FURNACE CHECKER [facility] OTHER MONONUCLEAR CELLS (FLD) 90 % 08/05/2022 11:41 PM FURNACE CHECKER [facility] STRUCTURE OF LEFT KNEE REGION / Unknown 08/05/2022 12:01 PM FURNACE CHECKER Soledad Lucas MD BODY FLUIDS AND STOOLS ORDERABLE S Final Result [facility] [address] [place] [address], [id number] documented in this encounter Visit Diagnoses Not on filedocumented in this encounter Additional Health Concerns Assessment Noted Time PHQ-9 Depression Total Score: 1 09/29/19 22 10:03 AM FURNACE CHECKER documented as of this encounter Care Teams Blueprint Reproducer Relationship Specialty Start Date End Date Soledad Lucas MD [address] [facility] [address] [place] [address] PCP - General INTERNAL MEDICINE 09/29/21 documented as of this encounter
--- OUTSIDE RECORDS SUMMARY | 2024-08-03 05:04 | XMS_ITS | Encounter Summary ---
Author Organization [facility] Address [address] [place] [address]. [address] [address] Care Team Providers Care Nursing Program Manager Name Role Phone Soledad Lucas MD Primary Care Provider [phone] Reason for Visit * Reason Onset Date Comments Refill Request 09/26/2022 Encounter Details Date Type Department Care Team (Late st Contact Info) Description 09/26/2022 Telephone [facility] Multispecialty Care - [place] [address] [address] [place] [address] Soledad Lucas MD [address] [place] [address] 157 [place] [address] Refill Request Social History Tobacco [...] Coronavirus/COVID-19? No / Unsure 08/29/2022 10:33 AM IMMIGRATION PATROL INSPECTOR documented as of this encounter Progress Notes * Soledad Lucas MD - 09/26/2022 4:55 PM CST Oxy refilled. GRATION PATROL INSPECTOR * Eugenie Ramirez MA - 09/26/2022 9:41 AM CST Pt calling and requesting refill of Oxycodone 7.5/325 Last refill 07/05/22 Last appt 09/02/22 Next appt 10/03/22 [id number] [place] - [address] [place] [phone] [place] [address] GRATION PATROL INSPECTOR documented in this encounter Plan of Treatment Upcoming Encounters Date Type Department Care Team (Late st Contact Info) Description 08/19/2024 9:00 AM IMMIGRATION PATROL INSPECTOR [facility] [address] [place] [address] [place] [address] [place] [address] [address] [place] [address] 12/16/2024 10:40 AM CDT Office Visit [facility] Care - [facility] 3 [facility] [address] [place] [address] Ramsey Oakley MD [address] [facility] [address] [place] [address] documented as of this encounter Visit Diagnoses Diagnosis Primary osteoarthritis of left knee Primary localized osteoarthrosis, lower leg Chronic bilateral low back pain with left-sided sciatica documented in this encounter Additional Health Concerns Assessment Noted Time PHQ-9 Depression Total Score: 1 09/29/19 10:03 AM IMMIGRATION PATROL INSPECTOR documented as of this encounter Care Teams Nursing Program Manager Relationship Specialty Start Date End Date Soledad Lucas MD [address] [place] [phone] PCP - General INTERNAL MEDICINE 09/29/21 documented as of this encounter
--- OUTSIDE RECORDS SUMMARY | 2024-08-03 05:04 | XMS_ITS | Encounter Summary ---
Author Organization [facility] Address [address] [place] [address]. [place], [place] [address] [place] [address] Care Team Providers Care Oceanologist Name Role Phone Soledad Lucas MD Primary Care Provider [phone] Reason for Referral * (Routine) - Closed Specialty Diagnoses / Procedures Referred By Prasanth santillan Referred To Contact Diagnoses Knee effusion, left Procedures Joint Aspiration/Injection Soledad Lucas MD [address] [address] Phone: tel: fax: Referral ID Status Reason Start Date Expiration Date Visits Re quested Visits Authorized [id number] Closed 10/14/2022 10/15/2023 1 1 APPLIANCE TECH * Consultation (Routine) - Closed Specialty Diagnoses / Procedures Referred By Prasanth santillan Referred To Contact ORTHOPAEDICS Diagnoses Knee effusion, left Arthritis of left knee Procedures OFFICE/OUTPT VISIT,NEW,LEVL III OFFICE/OUTPT VISIT,NEW,LEVL IV OFFICE/OUTPT VISIT,NEW,LEVL V OFFICE/OUTPT VISIT,EST,LEVL III OFFICE/OUTPT VISIT,EST,LEVL IV OFFICE/OUTPT VISIT,EST,LEVL V Soledad Lucas MD [address] [address] Phone: tel: fax: Raghu Caldera MD [address] [place] [address] [address] [place] [address] Phone: tel: fax: Referral ID Status Reason Start Date Expiration Date V isits Requested Visits Authorized [id number] Closed Specialty Services 10/14/2022 10/15/2023 99 99 Scheduling Instructions Please send to Dr Caldera. APPLIANCE TECH Reason for Visit * Reason Comments Knee Pain Patient presents for left knee pain and to have left knee drained Encounter Details Date Type Department Care Team (Latest Contact Info) Description 10/14/2022 1:40 PM HOME APPLIANCE TECH Office Visit [facility] Multispecialty Care - [address] [place], [place] [phone] Soledad Lucas MD 118[address] [facility] [address] [place], [place] [phone] Knee Pain (Patient presents for left knee [...] Coronavirus/COVID-19? No / Unsure 10/14/2022 1:36 PM HOME APPLIANCE TECH documented as of this encounter Last Filed Vital Signs Vital Sign Reading Time Taken Comments Blood Pressure 112/72 10/14/2022 1:42 PM HOME APPLIANCE TECH Pulse 81 10/14/2022 1:42 PM HOME APPLIANCE TECH Temperature 35.8 ??C (96.5 ??F) 10/14/2022 1:42 PM CS T Respiratory Rate 18 10/14/2022 1:42 PM HOME APPLIANCE TECH Oxygen Saturation 98% 10/14/2022 1:42 PM HOME APPLIANCE TECH Inhaled Oxygen Concentration - - Weight 106.1 kg (234 lb) 10/14/2022 1:42 PM HOME APPLIANCE TECH Height - - Body Mass Index 30.87 08/29/2022 10:50 AM HOME APPLIANCE TECH documented in this encounter Patient Instructions * Patient Instructions* Soledad Lucas MD - 10/14/2022 1:40 PM HOME APPLIANCE TECH Follow up in 2 weeks for your physical- come fasting. Referral call You will receive a call from our referral team ([phone]) regarding your referral. Insurance authorization Our diesel engine specialist will contact your insurance company to get prior authorization if needed. Appointment If you have been referred to an [facility] hospital or [facility] provider, the hospital or clinic you have been referred to will call you to schedule your appointment. For those outside services of [facility], our referral expects will be in contact by phone or mail regarding your recently placed referral. If you have not heard anything from your referral in about 1 week, please call [phone]. Working with insurance companies can be cumbersome, but we are dedicated to processing your referral timely and efficiently. Please know you have a caring and competent team working on your behalf [facility] continuum of care as quickly as possible. APPLIANCE TECH APPLIANCE TECH documented in this encounter Progress Notes * [...] 30 tablet 0 ??? vitamin D2, ergocalciferol, 83568 UNITS capsule Take 1 capsule (50,000 Units [...] the day of the encounter. This includes pnqo-mp-pbyn and uze-jbhg-mz-face time I provided on the day of [...] was at least in part performed using Cumed speak and there may be some inherent flaws in this broke man due to the nature of this program. Soledad Lucas MD Internal Medicine [facility]. APPLIANCE TECH documented in this encounter Plan of Treatment Upcoming Encounters Date Type Department Care Team (Late st Contact Info) Description 08/19/2024 9:00 AM HOME APPLIANCE TECH Office Visit [facility]pecialty Care - [place] [address] [place] [address] [address] [place] [address] Soledad Lucas MD [address] [facility] [address] [place] [address] 12/16/2024 10:40 AM CDT [facility] - [facility] 3 [facility] [address] [place] [address] Ramsey Oakley MD 3 [facility] [address] [place] [address] Scheduled Referrals Name Type Priority Associated Diagnoses Orde r Schedule Ambulatory referral to Orthopedics (OTHER) Referral Routine Knee effusion, left Arthritis of left knee Ordered: 10/14/2022 documented as of this encounter Procedures Procedure Name Priority Date/Time Associated Diagnosis Comments JOINT ASPIRATION/INJECTIO N Routine 10/14/2022 2:28 PM HOME APPLIANCE TECH Knee effusion, left CULTURE, ROUTINE W/ GRAM STAIN Routine 10/14/2022 2:16 PM HOME APPLIANCE TECH Knee effusion, left documented in this encounter Results * Joint Aspiration/Injection (10/14/2022 2:28 PM HOME APPLIANCE TECH) Narrative Soledad Lucas MD - 10/14/2022 2:28 PM HOME APPLIANCE TECH Soledad Lucas MD ? 10/14/2022 ??2:31 PM [...] GRAM STAIN (SMD/SJS/SFL ONLY) (10/14/2022 2:16 PM HOME APPLIANCE TECH) SPEC DESCRIPTION KNEE,LEFT 10/14/2022 2:16 PM HOME APPLIANCE TECH [facility] SPECIAL REQUESTS NO SPECIAL REQUEST 10/14/2022 2:16 PM HOME APPLIANCE TECH [facility] GRAM STAIN RESULT NO NEUTROPHILS OR ORGANISMS SEEN 10/17/2022 1:45 PM CDT [facility] CULTURE RESULT NO GROWTH 5 DAYS 10/20/2022 10:09 AM CDT [facility] STRUCTURE OF LEFT KNEE REGION / Unknown 10/14/2022 2:16 PM HOME APPLIANCE TECH 10/15/2022 5:00 AM HOME APPLIANCE TECH us Soledad Lucas MD MICROBIOLOGY - GENERAL ORDERABLE S Final Result [facility] [address] [place] [address], [id number] documented in this encounter Visit Diagnoses Diagnosis [...] of left knee Given 10/14/2022 3:29 PM HOME APPLIANCE TECH 5 mLs triamcinolone acetonide (KENALOG-40) injection 40 mg 40 mg, Intra-articular, Once, 1 dose, On Mon10/14/22 at 1445, Hung WellIndications:Knee effusion, left,Arthritis of left knee Given 10/14/2022 3:31 PM HOME APPLIANCE TECH 40 mg Left Knee documented in this encounter Additional Health Concerns Assessment Noted Time PHQ-9 Depression Total Score: 1 09/29/19 22 10:03 AM HOME APPLIANCE TECH documented as of this encounter Care Teams Oceanologist Relationship Specialty Start Date End Date Soledad Lucas MD [address] [address] PCP - General INTERNAL MEDICINE 09/29/21 documented as of this encounter
--- OUTSIDE RECORDS SUMMARY | 2024-08-03 05:04 | XMS_ITS | Encounter Summary ---
Author Organization [facility] Address [address] [place] [address]. [address] [address] Care Team Providers Care Machine Bookkeeper Name Role Phone Soledad Lucas MD Primary Care Provider Encounter Details Date Type Department Care Team (Latest Contact Info) Description 10/14/2022 - 10/14/2022 7:32 AM [facility] Hospital Encounter [facility] [address] [place] [address] Soledad Lucas MD [address] [address] Discharge Disposition: Home or Self [...] 30 tablet 09/26/2022 3 vitamin D2, ergocalciferol, 13078 UNITS capsuleIndication s:Vitamin D deficiency Take 1 capsule (50,000 Units total) by mouth weekly. 12 capsule 1 09/29/2021 3 documented as of this encounter Plan of Treatment Upcoming Encounters Date Type Department Care Team (Late st Contact Info) Description 08/19/2024 9:00 AM SPLITTER TENDER [facility] - [place] [address] [address] [place] [address] Soledad Lucas MD [address] [place] [address] 12/16/2024 10:40 AM CDT [facility] 3 [facility]., [address] [place] [address] Ramsey Oakley MD 3 [facility] [address] [place] [address] documented as of this encounter Visit Diagnoses Not on filedocumented in this encounter Additional Health Concerns Assessment Noted Time PHQ-9 Depression Total Score: 1 09/29/19 10:03 AM SPLITTER TENDER documented as of this encounter Care Teams Machine Bookkeeper Relationship Specialty Start Date End Date Soledad Lucas MD [address] [place] [address] PCP - General INTERNAL MEDICINE 09/29/21 documented as of this encounter
--- OUTSIDE RECORDS SUMMARY | 2024-08-03 05:04 | XMS_ITS | Encounter Summary ---
Author Organization [facility] Address [address] [place] [address]. [place] [phone] Care Team Providers Care Tunneling Machine Operator Name Role Phone Soledad Lucas MD Primary Care Provider [phone] Reason for Visit * Reason Comments Back Pain * Physical Medicine (Routine) - Closed Specialty Diagnoses / Procedures Referred By Prasanth santillan Referred To Contact PHYSICAL THERAPY / [facility] Physical Therapy Diagnoses Disc disease, degenerative, lumbar or lumbosacral Chronic bilateral low back pain with left-sided sciatica Procedures OFFICE/OUTPT VISIT,NEW,LEVL III OFFICE/OUTPT VISIT,NEW,LEVL IV OFFICE/OUTPT VISIT,NEW,LEVL V OFFICE/OUTPT VISIT,EST,LEVL III OFFICE/OUTPT VISIT,EST,LEVL IV OFFICE/OUTPT VISIT,EST,LEVL V Soledad Lucas MD [address] [facility] [address] [place] [address] Phone: tel: fax: [facility] Physical Therapy [address] [place] [address] Phone: tel: fax: Referral ID Status Reason Start Date Expiration Date V isits Requested Visits Authorized [id number] Closed Physical Therapy 04/06/2022 05/06/2023 10 10 Encounter Details Date Type Department Care Team (Late st Contact Info) Description 05/18/2022 4:00 PM CDT Office Visit [facility] [address] [place] [address] Soledad Lucas MD [address] [facility] [address] [place] [address] Nelda Knox PTA Back Pain Social History [...] NA Workers Compensation Injury: No 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: [employer]; 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/stacking Subjective Note: Patient reports the [...] OBJECTIVE Treatment provided today: Therapeutic Exercise - 55138 Number of Minutes - 62480: 28 Exercise: Quadruped rock back x10 with [...] mobility x 10 reps Manual Therapy - 54938 Number of Minutes - 56811: 15 Intervention: Prone PA glides L1-5 Intervention: [...] st Contact Info) Description 08/19/2024 9:00 AM UNDERWRITER SOLICITATION DIRECTOR Office Visit [facility] Multispecialty Care - [address] [place] [address] Soledad Lucas MD 1188 [facility] [address] [place] [address] 12/16/2024 10:40 AM CDT Office Visit [facility] Multispecialty Care - [facility] 3 [facility]., [address] [place] [address] Ramsey Oakley MD [address] [facility] [address] [place] [address] documented as of this encounter Visit Diagnoses Diagnosis Degenerative disc disease, lumbar- Primary Degeneration of lumbar or lumbosacral intervertebral disc Decreased ROM of trunk and back Chronic bilateral low back pain with left-sided sciatica documented in this encounter Additional Health Concerns Assessment Noted Time PHQ-9 Depression Total Score: 1 09/29/19 10:03 AM UNDERWRITER SOLICITATION DIRECTOR documented as of this encounter Care Teams Tunneling Machine Operator Relationship Specialty Start Date End Date Soledad Lucas MD [address] [address] PCP - General INTERNAL MEDICINE 09/29/21 documented as of this encounter
--- OUTSIDE RECORDS SUMMARY | 2024-08-03 05:04 | XMS_ITS | Encounter Summary ---
Author Organization [facility] Address [address] [place] [address]. [place], [place] [address] [place] [address] Care Team Providers Care Clerk Name Role Phone Soledad Lucas MD Primary Care Provider [phone] Encounter Details Date Type Department Care Team [...] Coronavirus/COVID-19? No / Unsure 10/14/2022 1:36 PM EPIC RADIANT ANALYST documented as of this encounter Plan of Treatment Upcoming Encounters Date Type Department Care Team (Late st Contact Info) Description 08/19/2024 9:00 AM EPIC RADIANT ANALYST Office Visit [facility] Multispecialty Care - [place] [address] [address] [place] [address] Soledad Lucas MD [address] [place] [address] [address] [place] [address] 12/16/2024 10:40 AM CDT Office Visit [facility] Multispecialty Care - [facility] 3 [facility]., [address] [place] [address] Ramsey Oakley MD 3 [facility] [address] [place] [address] documented as of this encounter Visit Diagnoses Not on filedocumented in this encounter Additional Health Concerns Assessment Noted Time PHQ-9 Depression Total Score: 1 09/29/19 22 10:03 AM EPIC RADIANT ANALYST documented as of this encounter Care Teams Clerk Relationship Specialty Start Date End Date Soledad Lucas MD 1188 [facility] [address] [place] [address] PCP - General INTERNAL MEDICINE 09/29/21 documented as of this encounter
--- OUTSIDE RECORDS SUMMARY | 2024-08-03 05:04 | XMS_ITS | Encounter Summary ---
Author Organization [facility] Address [address] [place] [address]. [address] [address] Care Team Providers Care House Detective Name Role Phone Soledad Lucas MD Primary Care Provider [phone] Reason for Visit * Reason Comments Perspiration Hands and feet feel cold, had temp 100 yesterday Encounter Details Date Type Department Care Team (Latest Contact Info) Description 07/06/2022 10:00 AM BOW MAKER GIFT WRAPPING Telemedicine [facility] Multispecialty Care [place] [address] [address] [place] [address] Soledad Lucas MD [address] [place] [address] [address] [place] [address] Perspiration (Hands and feet feel cold, had [...] Coronavirus/COVID-19? No / Unsure 07/06/2022 9:53 AM BOW MAKER GIFT WRAPPING documented as of this encounter Last Filed Vital Signs Vital Sign Reading Time Taken Comments Blood Pressure 139/87 07/06/2022 2:19 PM BOW MAKER GIFT WRAPPING Pulse 85 07/06/2022 1:24 PM BOW MAKER GIFT WRAPPING Temperature 36.9 ??C (98.4 ??F) 07/06/2022 1:24 PM CS T Respiratory Rate 18 07/06/2022 1:24 PM BOW MAKER GIFT WRAPPING Oxygen Saturation 99% 07/06/2022 1:24 PM BOW MAKER GIFT WRAPPING Inhaled Oxygen Concentration - - Weight 100.2 kg (221 lb) 07/06/2022 1:24 PM BOW MAKER GIFT WRAPPING Height 185.4 cm (6' 1 ) 07/06/2022 1:24 PM BOW MAKER GIFT WRAPPING Body Mass Index 29.16 07/06/2022 1:24 PM BOW MAKER GIFT WRAPPING documented in this encounter Patient Instructions * Patient Instructions* Soledad Lucas MD - 07/06/2022 10:00 AM BOW MAKER GIFT WRAPPING Follow up if symptoms do not get better. MAKER GIFT WRAPPING * Attachments The following attachments cannot be sent through Care Everywhere. * Strep Throat Discharge Instructions (Mohawk) documented in this encounter Progress Notes * Soledad Lucas MD - 07/06/2022 10:00 AM CSTSummary: Acute visit notes TELE- VISIT NOTES I introduced and identified myself, received verbal consent from the patient to proceed with this video visit and made the patient aware that the same confidentiality and information clerk cashier practices apply. The patient joined the video [...] tablet, Rfl: 0 ??? vitamin D2, ergocalciferol, [address]4847 UNITS capsule, Take 1 capsule (50,000 Units [...] ref. provider found PCP: SOLEDAD LUCAS MD MAKER GIFT WRAPPING documented in this encounter Plan of Treatment Upcoming Encounters Date Type Department Care Team (Late st Contact Info) Description 08/19/2024 9:00 AM BOW MAKER GIFT WRAPPING [facility] [address] [place] [address] Soledad Lucas MD 1188 [facility] 157 [place] [address] 12/16/2024 10:40 AM CDT [facility] [address] [facility] [address] [place] [address] Ramsey Oakley MD [address] [facility] [address] [place] [address] documented as of this encounter Procedures Procedure Name Priority Date/Time Associated Diagnosis Comments CULTURE STREP A Routine 07/06/2022 3:22 PM BOW MAKER GIFT WRAPPING Acute streptococcal pharyngitis CORONAVIRUS (COVID 19) PCR Routine 07/06/2022 3:22 PM BOW MAKER GIFT WRAPPING Acute streptococcal pharyngitis CORONAVIRUS (COVID-19) INFLUENZA A & B ANTIGEN IA PANEL Routine 07/06/2022 Acute streptococcal pharyngitis Acute pharyngitis, unspecified etiology RAPID STREP A Routine 07/06/2022 Acute streptococcal pharyngitis documented in this encounter Results * CORONAVIRUS (COVID 19) PCR (07/06/2022 3:22 PM BOW MAKER GIFT WRAPPING) SPEC DESCRIPTION NASAL 07/06/20 3:23 PM BOW MAKER GIFT WRAPPING [facility] CORONAVIRUS SARS COV 2 PCR (RESP) NEGATIVE NEGATIVE 07/08/2022 1:45 AM BOW MAKER GIFT WRAPPING [facility] Comment: THE SARS-CoV-2 TEST HAS BEEN AUTHORIZED BY THE FDA UNDER AN EUA FOR USE BY AUTHORIZED LABORATORIES. PERFORMED BY NUCLEIC ACID AMPLIFICATION PCR FIRST TEST YES 07/06/2022 3:23 PM BOW MAKER GIFT WRAPPING [facility] EMPLOYED IN HEALTHCARE NO 07/06/2022 3:23 PM BOW MAKER GIFT WRAPPING [facility] SYMPTOMATIC DEFINED BY CDC YES 07/06/2022 3:23 PM BOW MAKER GIFT WRAPPING [facility] DATE OF SYMPTOM ONSET 2022070507/06/2022 3:23 PM BOW MAKER GIFT WRAPPING [facility] HOSPITALIZATION STATUS NO 07/06/2022 3:23 PM BOW MAKER GIFT WRAPPING [facility] PATIENT IN ICU NO 07/06/2022 3:23 PM BOW MAKER GIFT WRAPPING [facility] RESIDENT OF [facility] NO 07/06/2022 3:23 PM BOW MAKER GIFT WRAPPING [facility] NASOPHARYNGEAL SWAB / Unknown 07/06/2022 3:22 PM BOW MAKER GIFT WRAPPING Soledad Lucas MD MICROBIOLOGY - GENERAL ORDERABLE S Final Result [facility] [address] [place] [address], * CULTURE STREP A (07/06/2022 3:22 PM BOW MAKER GIFT WRAPPING) SPEC DESCRIPTION THROAT 07/06/2022 3:23 PM BOW MAKER GIFT WRAPPING [facility] SPECIAL REQUESTS NO SPECIAL REQUEST 07/06/2022 3:23 PM BOW MAKER GIFT WRAPPING [facility] CULTURE RESULT NO STREPTOCOCCUS PYOGENES (GROUP A) ISOLATED 07/08/2022 9:41 PM BOW MAKER GIFT WRAPPING [facility] THROAT SWAB / Unknown 07/06/2022 3:22 PM BOW MAKER GIFT WRAPPING 07/06/2022 8:52 PM BOW MAKER GIFT WRAPPING us Soledad Lucas MD MICROBIOLOGY - GENERAL ORDERABLE S Final Result [facility] [address] [place] [address], [place] [phone] [id number] * RAPID STREP A (07/06/2022) RAPID STREP TEST POSITIVE NEGATIVE [id number], [place] Internal Control: VALID VALID [id number], [place] STRUCTURE OF ANTERIOR PORTION OF NECK / Unknown 07/06/2022 us Soledad Lucas MD MICROBIOLOGY - GENERAL ORDERABLE S Final Result Performing Organization Address [facility]/ZIP Co de Phone Number [id number], [place] [address] [place] [address], [place] [phone] * CORONAVIRUS (COVID-19) INFLUENZA A & B ANTIGEN IA PANEL (07/06/2022) CORONAVIRUS ANTIGEN IA NEGATIVE NEGATIVE [id number], [place] INFLUENZA A NEGATIVE NEGATIVE [id number], [place] INFLUENZA B NEGATIVE NEGATIVE [id number], [place] Internal Control: VALID VALID [id number], [place] NASAL STRUCTURE / Unknown 07/06/2022 us Soledad Lucas MD MICROBIOLOGY - GENERAL ORDERABLE S Final Result Performing Organization Address City/[facility]/ZIP Co de Phone Number [id number], [facility] [address] [place] [address], [place] [phone] documented in this encounter Visit Diagnoses Diagnosis Acute streptococcal pharyngitis- Primary Streptococcal sore throat Acute pharyngitis, unspecified etiology documented in this encounter Additional Health Concerns Assessment Noted Time PHQ-9 Depression Total Score: 1 09/29/19 22 10:03 AM BOW MAKER GIFT WRAPPING documented as of this encounter Care Teams House Detective Relationship Specialty Start Date End Date Soledad Lucas MD [address] [address] PCP - General INTERNAL MEDICINE 09/29/21 documented as of this encounter
--- OUTSIDE RECORDS SUMMARY | 2024-08-03 05:04 | XMS_ITS | Encounter Summary ---
Author Organization [facility] Address [address] [place] [address]. [place], [place] [address] [place] [address] Care Team Providers Care Wood Grainer Name Role Phone Soledad Lucas MD Primary Care Provider [phone] Encounter Details Date Type Department Care Team [...] Coronavirus/COVID-19? No / Unsure 06/13/2022 1:43 PM CONCESSION MANAGER documented as of this encounter Plan of Treatment Upcoming Encounters Date Type Department Care Team (Late st Contact Info) Description 08/19/2024 9:00 AM CONCESSION MANAGER Office Visit [facility] Medical Group Multispecialty Care - [place] [address] [address] [address] [place] [address] Soledad Lucas MD [address] [place] [address] 12/16/2024 10:40 AM CDT Office Visit [facility] Medical [facility] Multispecialty Care - [facility] [address] [facility] [place] [address] Ramsey Oakley MD 3 [facility] [address] [place] [address] documented as of this encounter Visit Diagnoses Not on filedocumented in this encounter Additional Health Concerns Infection Onset Date Last Indicated Resolved Time COVID-19 Rule Out 06/13/2022 06/13/2022 06/13/2022 2:50 PM CONCESSION MANAGER COVID-19 Rule Out 06/13/2022 06/13/2022 06/14/2022 1:24 PM CONCESSION MANAGER Assessment Noted Time PHQ-9 Depression Total Score: 1 09/29/19 10:03 AM CONCESSION MANAGER documented as of this encounter Care Teams Wood Grainer Relationship Specialty Start Date End Date Soledad Lucas MD [address] [address] PCP - General INTERNAL MEDICINE 09/29/21 documented as of this encounter
--- OUTSIDE RECORDS SUMMARY | 2024-08-03 05:04 | XMS_ITS | Encounter Summary ---
Author Organization [facility] Address [address] [place] [address]. [place], [place] [address] [place] [address] Care Team Providers Care Pari Mutual Ticket Checker Name Role Phone Soledad Lucas MD Primary Care Provider [phone] Encounter Details Date Type Department Care Team (Latest Contact Info) Description 10/14/2022 7:33 AM MILIEU COORDINATOR - 10/14/2022 11:59 PM MILIEU COORDINATOR Hospital Encounter [facility] [address] [place] [address] Soledad Lucas MD 1188 [facility] [address] [place] [address] Discharge Disposition: Home or Self Care [...] Coronavirus/COVID-19? No / Unsure 10/14/2022 1:36 PM MILIEU COORDINATOR documented as of this encounter Medications at [...] 30 tablet 09/26/2022 3 vitamin D2, ergocalciferol, 29406 UNITS capsuleIndication s:Vitamin D deficiency Take 1 capsule (50,000 Units total) by mouth weekly. 12 capsule 1 09/29/2021 3 documented as of this encounter Plan of Treatment Upcoming Encounters Date Type Department Care Team (Late st Contact Info) Description 08/19/2024 9:00 AM MILIEU COORDINATOR [facility] - [place] [address] [address] [address] [place] [address] Soledad Lucas MD [address] [place] [address] [address] [place] [address] 12/16/2024 10:40 AM CDT Office Visit [facility] [address] [facility], [address] [place] [address] Ramsey Oakley MD 3 [facility] [address] [place] [address] documented as of this encounter Procedures Procedure Name Priority Date/Time Associated Diagnosis Comments CELL COUNT W/ DIFF BODY FLUID Routine 10/14/2022 2:15 PM MILIEU COORDINATOR documented in this encounter Results * CELL COUNT W/ DIFF BODY FLUID (10/14/2022 2:15 PM MILIEU COORDINATOR) SOURCE (FLUID) LEFT KNEE 10/15/2022 7:43 AM MILIEU COORDINATOR [facility] WBC (FLUID) 0.103 x10'3/uL 10/15/2022 7:43 AM MILIEU COORDINATOR [facility] Comment:REFERENCE RANGE NOT ESTABLISHED RBC (FLUID) <0.002 x10'6/uL 10/15/2022 7:43 AM MILIEU COORDINATOR [facility] Comment:REFERENCE RANGE NOT ESTABLISHED DIFFERENTIAL MANUAL DIFFERENTIAL PERFORMED ON CONCENTRATED CYTOSPIN 10/15/2022 7:34 AM MILIEU COORDINATOR [facility] CELLS COUNTED 100 No COUNTED 10/15/2022 7:54 AM MILIEU COORDINATOR [facility] SEGS (FLUID) 5 % 10/15/2022 7:53 AM MILIEU COORDINATOR [facility] LYMPHS (FLUID) 20 % 10/15/2022 7:53 AM MILIEU COORDINATOR [facility] OTHER MONONUCLEAR CELLS (FLD) 75 % 10/15/2022 7:53 AM MILIEU COORDINATOR [facility] STRUCTURE OF LEFT KNEE REGION / Unknown 10/14/2022 2:15 PM MILIEU COORDINATOR Soledad Lucas MD BODY FLUIDS AND STOOLS ORDERABLE S Final Result [facility] [address] [place] [address], [id number] documented in this encounter Visit Diagnoses Not on filedocumented in this encounter Additional Health Concerns Assessment Noted Time PHQ-9 Depression Total Score: 1 09/29/19 22 10:03 AM MILIEU COORDINATOR documented as of this encounter Care Teams Pari Mutual Ticket Checker Relationship Specialty Start Date End Date Soledad Lucas MD [address] [address] PCP - General INTERNAL MEDICINE 09/29/21 documented as of this encounter
--- OUTSIDE RECORDS SUMMARY | 2024-08-03 05:04 | XMS_ITS | Encounter Summary ---
Author Organization [facility] Address [address] [place] [address]. [address] [address] Care Team Providers Care Head School Custodian Name Role Phone Soledad Lucas MD Primary Care Provider [phone] Reason for Visit * Reason Comments Knee Pain Right knee pain; hav ing trouble bending knee; sx started last night Med Refills Inhalers, oxycodone Encounter Details Date Type Department Care Team (Latest Contact Info) Description 05/30/2022 11:40 AM CDT Office Visit [facility] Medical Group Multispecialty Care - [place] [address] [address] [place] [address] Soledad Lucas MD [address] [place] [address] [address] [place] [address] Knee Pain (Right knee pain; having trouble [...] Care Everywhere. * Knee Pain Discharge Instructions (Czech) documented in this encounter Progress Notes * [...] 30 tablet 0 ??? vitamin D2, ergocalciferol, 46633 UNITS capsule Take 1 capsule (50,000 Units [...] was at least in part performed using Rollbase (acquired by [employer]) and there may be some inherent flaws in this editorial project manager due to the nature of this program. Soledad Lucas MD Internal Medicine [facility], [facility]. documented in this encounter Plan of Treatment Upcoming Encounters Date Type Department Care Team (Late st Contact Info) Description 08/19/2024 9:00 AM BLINTZE ROLLER [facility] [place] [address] [address] [place] [address] Soledad Lucas MD [address] [place] [address] 12/16/2024 10:40 AM CDT Office Visit [facility]pec[facility]ty [facility] - [address], [address] [place] [address] Ramsey Oakley MD [address] [address] documented as of this encounter Visit Diagnoses [...] Depression Total Score: 1 09/29/19 10:03 AM BLINTZE ROLLER documented as of this encounter Care Teams Head School Custodian Relationship Specialty Start Date End Date Soledad Lucas MD [facility] [address] [place] [address] PCP - General INTERNAL MEDICINE 09/29/21 documented as of this encounter
--- OUTSIDE RECORDS SUMMARY | 2024-08-03 05:04 | XMS_ITS | Encounter Summary ---
Author Organization [facility] Address [address] [place] [address]. [place], [place] [address] [place] [address] Care Team Providers Care Rn Lpn Cna Name Role Phone Soledad Lucas MD Primary Care Provider [phone] Encounter Details Date Type Department Care Team [...] st Contact Info) Description 08/19/2024 9:00 AM AMMONIA BOX OPERATOR Office Visit [facility] Medical Group Multispecialty Care - [place] [address] [address] [address] [place] [address] Soledad Lucas MD [address] [place] [address] [address] [place] [address] 12/16/2024 10:40 AM CDT Office Visit [facility] Medical Group Multispecialty Care - [facility] [address] [facility] [place] [address] Ramsey Oakley MD 3 [facility] [address] [place] [address] documented as of this encounter Visit Diagnoses Not on filedocumented in this encounter Additional Health Concerns Assessment Noted Time PHQ-9 Depression Total Score: 1 09/29/19 22 10:03 AM AMMONIA BOX OPERATOR documented as of this encounter Care Teams Rn Lpn Cna Relationship Specialty Start Date End Date Soledad Lucas MD [address] [address] PCP - General INTERNAL MEDICINE 09/29/21 documented as of this encounter
--- OUTSIDE RECORDS SUMMARY | 2024-08-03 05:04 | XMS_ITS | Encounter Summary ---
Author Organization [facility] Address [address] [place] [address]. [place], [place] [address] [place] [address] Care Team Providers Care Income Tax Adjuster Name Role Phone Soledad Lucas MD Primary Care Provider [phone] Encounter Details Date Type Department Care Team [...] st Contact Info) Description 08/19/2024 9:00 AM WATER RESOURCE AGENT Office Visit [facility] Medical Group Multispecialty Care - [place] [address] [address] [address] [place] [address] Soledad Lucas MD [address] [place] [address] [address] [place] [address] 12/16/2024 10:40 AM CDT Office Visit [facility] Medical [facility] - [facility] [address] [facility] [place] [address] Ramsey Oakley MD 3 [facility] [address] [place] [address] documented as of this encounter Visit Diagnoses Not on filedocumented in this encounter Additional Health Concerns Assessment Noted Time PHQ-9 Depression Total Score: 1 09/29/19 22 10:03 AM WATER RESOURCE AGENT documented as of this encounter Care Teams Income Tax Adjuster Relationship Specialty Start Date End Date Soledad Lucas MD [address] [address] PCP - General INTERNAL MEDICINE 09/29/21 documented as of this encounter
--- OUTSIDE RECORDS SUMMARY | 2024-08-03 05:04 | XMS_ITS | Encounter Summary ---
Author Organization [facility] Address [address] [place] [address]. [address] [address] Care Team Providers Care Stencil Typist Name Role Phone Soledad Lucas MD Primary Care Provider [phone] Reason for Visit * Reason Comments Knee Pain Pt is here to get hi s Left knee drained Encounter Details Date Type Department Care Team (Latest Contact Info) Description 08/05/2022 10:40 AM DYNAMOMETER TESTER Office Visit [facility] Medical Group Multispecialty Care - [place] [address] [address] [place], [place] [address] Soledad Lucas MD [address] [place] [address] [address] [place], [place] [phone] Knee Pain (Pt is here to get [...] Coronavirus/COVID-19? No / Unsure 08/05/2022 10:33 AM DYNAMOMETER TESTER documented as of this encounter Last Filed Vital Signs Vital Sign Reading Time Taken Comments Blood Pressure 136/84 08/05/2022 10:47 AM DYNAMOMETER TESTER Pulse 80 08/05/2022 10:47 AM DYNAMOMETER TESTER Temperature 36.2 ??C (97.1 ??F) 08/05/2022 1 0:47 AM DYNAMOMETER TESTER Respiratory Rate 18 08/05/2022 10:4 7 AM DYNAMOMETER TESTER Oxygen Saturation 96% 08/05/2022 10: 47 AM DYNAMOMETER TESTER Inhaled Oxygen Concentration - - Weight 104.2 kg (229 lb 12.8 oz) 2021 10:47 AM DYNAMOMETER TESTER Height 185.4 cm (6' 1 ) 08/05/2022 10:4 7 AM DYNAMOMETER TESTER Body Mass Index 30.32 08/05/2022 10:47 AM DYNAMOMETER TESTER documented in this encounter Patient Instructions * Attachments The following attachments cannot be sent through Care Everywhere. * Knee Pain Discharge Instructions (Bulgarian) documented in this encounter Progress Notes * [...] 30 tablet 0 ??? vitamin D2, ergocalciferol, 42644 UNITS capsule Take 1 capsule (50,000 Units [...] was at least in part performed using [employer] and there may be some inherent flaws in this procurement engineer due to the nature of this program. Soledad Lucas MD Internal Medicine [facility], [facility]. MOMETER TESTER documented in this encounter Plan of Treatment Upcoming Encounters Date Type Department Care Team (Late st Contact Info) Description 08/19/2024 9:00 AM DYNAMOMETER TESTER Office Visit [facility] Multispecialty Care - [place] [address] [address] [place] [address] Soledad Lucas MD [address] [place] [address] 12/16/2024 10:40 AM CDT Office Visit [facility] Multispecialty Care - [address] [place] [address] Ramsey Oakley MD 3 [facility] [address] [place] [address] Scheduled Orders Name Type Priority Associated Diagnoses [...] of left knee Given 08/05/2022 12:09 PM DYNAMOMETER TESTER 5 mLs Right Knee triamcinolone acetonide (KENALOG-40) injection 40 mg 40 mg, Intramuscular, Once, 1 dose, On Mon08/05/22 at 1145, Hardikke WellIndications:Effusion of left knee,Primary osteoarthritis of left knee Given 08/05/2022 12:13 PM DYNAMOMETER TESTER 40 mg Other documented in this encounter Additional Health Concerns Assessment Noted Time PHQ-9 Depression Total Score: 1 09/29/19 22 10:03 AM DYNAMOMETER TESTER documented as of this encounter Care Teams Stencil Typist Relationship Specialty Start Date End Date Soledad Lucas MD 1188 [facility] [address] [place] [address] PCP - General INTERNAL MEDICINE 09/29/21 documented as of this encounter
--- OUTSIDE RECORDS SUMMARY | 2024-08-03 05:04 | XMS_ITS | Encounter Summary ---
Author Organization [facility] Address [address] [place] [address]. [place], [place] [address] [place] [address] Care Team Providers Care Riverine Assault Craft Crewman Name Role Phone Soledad Lucas MD Primary Care Provider [phone] Reason for Visit * Reason Onset Date Comments Pre-visit Gap Closure 09/28/2022 Encounter Details Date Type Department Care Team (Latest Contact Info) Description 09/28/2022 Patient Outreach [facility] Multispecialty Care - [address] [place] [address] Rebecca Sheth MA Pre-visit Gap [...] Coronavirus/COVID-19? No / Unsure 10/14/2022 1:36 PM DRILL PRESS OPERATOR documented as of this encounter Progress [...] Up Notes: Shingles: Needs Follow Up Notes: L PRESS OPERATOR documented in this encounter Plan of Treatment Upcoming Encounters Date Type Department Care Team (Late st Contact Info) Description 08/19/2024 9:00 AM DRILL PRESS OPERATOR [facility] [place] [address] [address] [place] [address] Soledad Lucas MD [address] [place] [address] 12/16/2024 10:40 AM CDT Office Visit [facility] 3 [facility], [address] [place] [address] Ramsey Oakley MD 3 [facility] [address] [place] [address] documented as of this encounter Visit Diagnoses Not on filedocumented in this encounter Additional Health Concerns Assessment Noted Time PHQ-9 Depression Total Score: 1 09/29/19 10:03 AM DRILL PRESS OPERATOR documented as of this encounter Care Teams Riverine Assault Craft Crewman Relationship Specialty Start Date End Date Soledad Lucas MD [address] [place] [address] PCP - General INTERNAL MEDICINE 09/29/21 documented as of this encounter
--- OUTSIDE RECORDS SUMMARY | 2024-08-03 05:04 | XMS_ITS | Encounter Summary ---
Author Organization [facility] Address [address] [place] [address]. [address] [address] Care Team Providers Care Cargo Service Supervisor Name Role Phone Soledad Lucas MD Primary Care Provider [phone] Reason for Visit * Reason Comments ER F/U Pt went to the ER on Monday for wheezing. [place] [facility] Encounter Details Date Type Department Care Team (Latest Contact Info) Description 08/29/2022 10:20 AM BUSINESS SUPPORT COORDINATOR Office Visit [facility] Multispecialty Care - [place] [address] [address] [address] [place] [address] Soledad Lucas MD [address] [place] [address] [address] [place] [address] ER F/U (Pt went to the ER on Monday for wheezing. Pt went to [place] [facility]) Social History Tobacco Use Types Packs/Day [...] Coronavirus/COVID-19? No / Unsure 08/29/2022 10:33 AM BUSINESS SUPPORT COORDINATOR documented as of this encounter Last Filed Vital Signs Vital Sign Reading Time Taken Comments Blood Pressure 120/73 08/29/2022 10:50 AM BUSINESS SUPPORT COORDINATOR Pulse 88 08/29/2022 10:50 AM BUSINESS SUPPORT COORDINATOR Temperature 36.2 ??C (97.2 ??F) 08/29/2022 10:[address] Respiratory Rate 18 08/29/2022 10:50 AM BUSINESS SUPPORT COORDINATOR Oxygen Saturation 99% 08/29/2022 10:50 AM BUSINESS SUPPORT COORDINATOR Inhaled Oxygen Concentration - - Weight 106.6 kg (235 lb) 08/29/2022 10:50 AM BUSINESS SUPPORT COORDINATOR Height 185.4 cm (6' 1 ) 08/29/2022 10:50 AM BUSINESS SUPPORT COORDINATOR Body Mass Index 31 08/29/2022 10:50 AM BUSINESS SUPPORT COORDINATOR documented in this encounter Patient Instructions * Patient Instructions* Soledad Lucas MD - 08/29/2022 10:20 AM BUSINESS SUPPORT COORDINATOR Please picker feeder your prescription and use medications as directed including your inhalers. Stop taking aspirin 81 mg daily for now. NESS SUPPORT COORDINATOR * Attachments The following attachments cannot be sent through Care Everywhere. * Asthma Discharge Instructions, Adult ([place]) documented in this encounter Progress Notes * Soledad Lucas MD - 08/29/2022 10:20 AM CSTSummary: ER follow up notes Images from the original note were not included. Internal Medicine Outpatient Progress Note CC: ER F/U (Pt went to the ER on Monday for wheezing. Pt went [place]) HPI: Juliet Stout is a 61-year-old male who presents for an ER visit for recent concerns about asthma exacerbation with recent visit to the emergency room. According to patient, his symptoms started about 1 week ago and patient went to [facility] emergency room to be evaluated. Symptoms started [...] to about $10.35. Patient encouraged to picker feeder prescription. Problem List Patient Active Problem List [...] 10 tablet 0 ??? vitamin D2, ergocalciferol, 55456 UNITS capsule Take 1 capsule (50,000 Units [...] at this time. Patient notified to picker feeder Breo inhaler. Using technique discussed during this [...] was at least in part performed using [employer] speak and there may be some inherent flaws in this boiler shop mechanic due to the nature of this program. Soledad Lucas MD Internal Medicine [facility], [facility]. NESS SUPPORT COORDINATOR documented in this encounter Plan of Treatment Upcoming Encounters Date Type Department Care Team (Late st Contact Info) Description 08/19/2024 9:00 AM BUSINESS SUPPORT COORDINATOR Office Visit [facility] Medical [facility] Multispecialty Care - [address] [address] [address] [place] [address] Soledad Lucas MD [address] [address] 12/16/2024 10:40 AM CDT Office Visit [facility] Medical Group Multispecialty Care - [facility] [address] [facility] [address] [place] [address] Ramsey Oakley MD [address] [facility] [address] [place] [address] documented as of this encounter Visit Diagnoses [...] acute exacerbation (HHS/HCC) Given 08/29/2022 11:11 AM BUSINESS SUPPORT COORDINATOR 40 mg Right Upper Outer Quadrant documented in this encounter Additional Health Concerns Assessment Noted Time PHQ-9 Depression Total Score: 1 09/29/19 10:03 AM BUSINESS SUPPORT COORDINATOR documented as of this encounter Care Teams Cargo Service Supervisor Relationship Specialty Start Date End Date Soledad Lucas MD [address] [address] PCP - General INTERNAL MEDICINE 09/29/21 documented as of this encounter
--- OUTSIDE RECORDS SUMMARY | 2024-08-03 05:04 | XMS_ITS | Encounter Summary ---
Author Organization [facility] - [facility] Address [address] [place] [address]. [address] [address] Care Team Providers Care Fur Dyer Name Role Phone Soledad Lucas MD Primary Care Provider [phone] Reason for Visit * Reason Onset Date Comments Medication Request 07/05/2022 Encounter Details Date Type Department Care Team (Late st Contact Info) Description 07/05/2022 Telephone [facility] Medical Group Multispecialty Care - [place] [address] [address] [address] [place] [address] Soledad Lucas MD [address] [place] [address] [address] [place] [address] Medication Request Social History Tobacco [...] Coronavirus/COVID-19? No / Unsure 06/13/2022 1:43 PM SYSTEMS PROJECT MANAGER documented as of this encounter Progress Notes * Soledad Lucas MD - 07/05/2022 4:11 PM CST Referral start oxycodone acetaminophen and Flexeril sent. Patient not on Robaxin at this time. EMS PROJECT MANAGER * Hanna Brewer - 07/05/2022 11:40 AM CST Med refill Oxycodone 7.5 Mg Cyclobenzaprine 10 Mg [facility] [place] [facility] PROJECT MANAGER documented in this encounter Plan of Treatment Upcoming Encounters Date Type Department Care Team (Late st Contact Info) Description 08/19/2024 9:00 AM SYSTEMS PROJECT MANAGER Office Visit [facility] [place] - [address] [address] [address] [address] [place] [address] Soledad Lucas MD [facility] [address] [address] 12/16/2024 10:40 AM CDT Office Visit [facility] [place] [facility] [address] [facility] [place] [address] Ramsey Oakley MD 3 [facility] [address] [place] [address] documented as of this encounter Visit Diagnoses Diagnosis Chronic bilateral low back pain with left-sided sciatica- Primary Primary osteoarthritis of left knee Primary localized osteoarthrosis, lower leg documented in this encounter Additional Health Concerns Assessment Noted Time PHQ-9 Depression Total Score: 1 09/29/19 22 10:03 AM SYSTEMS PROJECT MANAGER documented as of this encounter Care Teams Fur Dyer Relationship Specialty Start Date End Date Soledad Lucas MD [address] [place] [address] PCP - General INTERNAL MEDICINE 09/29/21 documented as of this encounter
--- OUTSIDE RECORDS SUMMARY | 2024-08-03 05:05 | XMS_ITS | Encounter Summary ---
Author Organization [facility] Address [address] [place] [address]. [address] [address] Care Team Providers Care Learning Solutions Specialist Name Role Phone Soledad Lucas MD Primary Care Provider [phone] Reason for Visit * Reason Comments Low Back Pain Patient says the nas n started 2 days ago. Pain shooting down left butt cheek and sometimes shooting down the middle Encounter Details Date Type Department Care Team (Latest Contact Info) Description 04/05/2022 2:10 PM CDT Office Visit [facility] Medical Group Multispecialty Care - [address] [address] [address] [place] [address] Soledad Lucas MD [address] [place] [address] Low Back Pain (Patient says the pain [...] sent through Care Everywhere. * Back Exercises (Amharic) documented in this encounter Progress Notes [...] middle) HPI: Juliet Stout is a 60-year-old -Bangladeshi male who presents for acute visit for [...] 30 tablet 0 ??? vitamin D2, ergocalciferol, [address]5216 UNITS capsule Take 1 capsule (50,000 Units [...] was at least in part performed using Cloudtop and there may be some inherent flaws in this course instructor due to the nature of this program. Soledad Lucas MD Internal Medicine [facility], [facility]. documented in this encounter Plan of Treatment Upcoming Encounters Date Type Department Care Team (Late st Contact Info) Description 08/19/2024 9:00 AM RN NICU [facility] - [address] [address] [address] [place] [address] [place] [address] [place] [address] [address] [place] [address] 12/16/2024 10:40 AM CDT [facility] 3 [facility] [place] [address] Ramsey Oakley MD [address] [facility] [address] [place] [address] documented as of this encounter Procedures Procedure [...] Depression Total Score: 1 09/29/19 10:03 AM RN NICU documented as of this encounter Care Teams Learning Solutions Specialist Relationship Specialty Start Date End Date Soledad Lucas MD [address] [address] PCP - General INTERNAL MEDICINE 09/29/21 documented as of this encounter
--- OUTSIDE RECORDS SUMMARY | 2024-08-03 05:05 | XMS_ITS | Encounter Summary ---
Author Organization [facility] Address [address] [place] [address]. [place], [place] [address] [place] [address] Care Team Providers Care Remote Operations Producer Name Role Phone Soledad Lucas MD Primary Care Provider [phone] Reason for Referral * (Routine) - Closed Specialty Diagnoses / Procedures Referred By Prasanth santillan Referred To Contact Diagnoses Primary osteoarthritis of left knee Effusion of bursa of left knee Procedures Joint Aspiration/Injection Soledad Lucas MD [address] [address] Phone: tel: fax: Referral ID Status Reason Start Date Expiration Date Visits Re quested Visits Authorized [id number] Closed 03/02/2022 03/02/2023 1 1 Reason for Visit * Reason Comments Knee Pain Bilaterally, left > right Back Pain Lower back/upper but tock Encounter Details Date Type Department Care Team (Latest Contact Info) Description 03/02/2022 9:00 AM CDT Office Visit [facility] Medical Group Multispecialty Care - [place] [address] [address] [place] [address] Soledad Lucas MD [address] [id number] Knee Pain (Bilaterally, left > right); Back [...] Care Everywhere. * Knee Pain Discharge Instructions (Malagasy) documented in this encounter Progress Notes * [...] buttock) HPI: Juliet Stout is a 60-year-old -Dutch male who presents for follow- up for [...] in intensity. Currently has been using his [place] whichhelps some. No recent falls or injuries. [...] was at least in part performed using [employer] and there may be some inherent flaws in this management liaison due to the nature of this program. Soledad Lucas MD Internal Medicine [facility], [facility]. documented in this encounter Plan of Treatment Upcoming Encounters Date Type Department Care Team (Late st Contact Info) Description 08/19/2024 9:00 AM COOK BOX FILLER Office Visit [facility] Multispecialty Care - [place] [address] [address] [address] [place] [address] Soledad Lucas MD [address] [facility] [address] [place] [address] 12/16/2024 10:40 AM CDT Office Visit [facility] Multispecialty Care - [facility] 3 [facility] [address] [place] [address] Ramsey Oakley MD 3 [facility] [address] [place] [address] Scheduled Orders Name Type Priority Associated Diagnoses [...] Total Score: 1 09/29/19 22 10:03 AM COOK BOX FILLER documented as of this encounter Care Teams Remote Operations Producer Relationship Specialty Start Date End Date Soledad Lucas MD [address] [address] PCP - General INTERNAL MEDICINE 09/29/21 documented as of this encounter
--- OUTSIDE RECORDS SUMMARY | 2024-08-03 05:05 | XMS_ITS | Encounter Summary ---
Author Organization [facility] Address [address] [place] [address]. [place], [place] [address] [place] [address] Care Team Providers Care Livestock Nutritionist Name Role Phone Soledad Lucas MD Primary Care Provider [phone] Encounter Details Date Type Department Care Team [...] st Contact Info) Description 08/19/2024 9:00 AM PIPE MANUFACTURE SUPERVISOR Office Visit [facility] Medical Group Multispecialty Care - [place] [address] [address] [address] [place] [address] Soledad Lucas MD [address] [place] [address] [address] [place] [address] 12/16/2024 10:40 AM CDT Office Visit [facility] Medical [facility] Multispecialty Care - [facility] 3 [facility] [place] [address] Ramsey Oakley MD 3 [facility] [address] [place] [address] documented as of this encounter Visit Diagnoses Not on filedocumented in this encounter Additional Health Concerns Assessment Noted Time PHQ-9 Depression Total Score: 1 09/29/19 22 10:03 AM PIPE MANUFACTURE SUPERVISOR documented as of this encounter Care Teams Livestock Nutritionist Relationship Specialty Start Date End Date Soledad Lucas MD [address] [address] PCP - General INTERNAL MEDICINE 09/29/21 documented as of this encounter
--- OUTSIDE RECORDS SUMMARY | 2024-08-03 05:05 | XMS_ITS | Encounter Summary ---
Author Organization [facility] Address [address] [place] [address]. [place], [place] [address] [place] [address] Care Team Providers Care Foundation Drill Operator Name Role Phone Soledad Lucas MD Primary Care Provider [phone] Encounter Details Date Type Department Care Team [...] st Contact Info) Description 08/19/2024 9:00 AM ACCOUNTING MACHINE OPERATOR Office Visit [facility] Medical Group Multispecialty Care - [place] [address] [address] [address] [place] [address] Soledad Lucas MD [address] [place] [address] 157 [place] [address] 12/16/2024 10:40 AM CDT Office Visit [facility] Medical Group Multispecialty Care - [facility] 3 [facility] [place] [address] Ramsye Oakley MD 3 [facility] [address] [place] [address] documented as of this encounter Visit Diagnoses Not on filedocumented in this encounter Additional Health Concerns Assessment Noted Time PHQ-9 Depression Total Score: 1 09/29/19 22 10:03 AM ACCOUNTING MACHINE OPERATOR documented as of this encounter Care Teams Foundation Drill Operator Relationship Specialty Start Date End Date Soledad Lucas MD 118[address] [facility] [address] [place] [address] PCP - General INTERNAL MEDICINE 09/29/21 documented as of this encounter
--- OUTSIDE RECORDS SUMMARY | 2024-08-03 05:05 | XMS_ITS | Encounter Summary ---
Author Organization [facility] Address [address] [place] [address]. [place], [place] [address] [place] [address] Care Team Providers Care Hospital Admissions Officer Name Role Phone Soledad Lucas MD Primary Care Provider [phone] Reason for Visit * Reason Onset Date Comments Follow Up Call 10/28/2021 Encounter Details Date Type Department Care Team (Late st Contact Info) Description 10/28/2021 Telephone [facility] Medical Group Multispecialty Care - [place] [address] [address] [address] [place] [address] Soledad Lucas MD [address] [place] [address] [address] [place] [address] Follow Up Call Social History [...] questions answered. Soledad Lucas MD Internal Medicine [facility]. documented in this encounter Plan of Treatment Upcoming Encounters Date Type Department Care Team (Late st Contact Info) Description 08/19/2024 9:00 AM REAMING PRESS OPERATOR [facility] [place] - [place] [address] [address] [address] [place] [address] Soledad Lucas MD [address] [address] 12/16/2024 10:40 AM CDT [facility] 3 [facility] [place] [address] Ramsey Oakley MD 3 [facility] [address] [place] [address] documented as of this encounter Visit Diagnoses Not on filedocumented in this encounter Additional Health Concerns Assessment Noted Time PHQ-9 Depression Total Score: 1 09/29/19 10:03 AM REAMING PRESS OPERATOR documented as of this encounter Care Teams Hospital Admissions Officer Relationship Specialty [place] [address] [place] [address] PCP - General INTERNAL MEDICINE 09/29/21 documented as of this encounter
--- OUTSIDE RECORDS SUMMARY | 2024-08-03 05:05 | XMS_ITS | Encounter Summary ---
Author Organization [facility] Address [address] [place] [address]. [place], [place] [address] [place] [address] Care Team Providers Care Recreation Worker Name Role Phone Soledad Lucas MD Primary Care Provider [phone] Encounter Details Date Type Department Care Team [...] st Contact Info) Description 08/19/2024 9:00 AM TUBING TESTER Office Visit [facility] Medical Group Multispecialty Care - [place] [address] [address] [address] [place] [address] Soledad Lucas MD [address] [place] [address] [address] [place] [address] 12/16/2024 10:40 AM CDT Office Visit [facility] Medical Group Multispecialty Care - [facility] 3 [facility] [place] [address] Ramsey Oakley MD 3 [facility] [address] [place] [address] documented as of this encounter Visit Diagnoses Not on filedocumented in this encounter Additional Health Concerns Assessment Noted Time PHQ-9 Depression Total Score: 1 09/29/19 22 10:03 AM TUBING TESTER documented as of this encounter Care Teams Recreation Worker Relationship Specialty Start Date End Date Soledad Lucas MD [address] [address] PCP - General INTERNAL MEDICINE 09/29/21 documented as of this encounter
--- OUTSIDE RECORDS SUMMARY | 2024-08-03 05:05 | XMS_ITS | Encounter Summary ---
Author Organization [facility] Address [address] [place] [address]. [address] [address] Care Team Providers Care Smoking Pipe Driller And Threader Name Role Phone Soledad Lucas MD Primary Care Provider [phone] Reason for Visit * Reason Onset Date Comments Appointment Request 03/28/2022 Encounter Details Date Type Department Care Team (Late st Contact Info) Description 03/28/2022 Telephone [facility] Medical Group Multispecialty Care - [place] [address] [address] [place] [address] Soledad Lucas MD [address] [place] [address] [address] [place] [address] Appointment Request Social History Tobacco [...] Pharmacy called. Prescription available for patient to slat pickler-limited quantity. Patient notified. All questions answered for [...] st Contact Info) Description 08/19/2024 9:00 AM CROCHETER HAND Office Visit [facility] Multispecialty Care - [place] [address] [address] [place] [address] Soledad Lucas MD [facility] [address] [address] 12/16/2024 10:40 AM CDT Office Visit [facility] Mult[facility]pecialty Care - [facility] 3 [facility] [place] [address] Ramsey Oakley MD 3 [facility] [address] [place] [address] documented as of this encounter Visit Diagnoses Not on filedocumented in this encounter Additional Health Concerns Assessment Noted Time PHQ-9 Depression Total Score: 1 09/29/19 22 10:03 AM CROCHETER HAND documented as of this encounter Care Teams Smoking Pipe Driller And Threader Relationship Specialty Start Date End Date Soledad Lucas MD [address] [place] [address] PCP - General INTERNAL MEDICINE 09/29/21 documented as of this encounter
--- OUTSIDE RECORDS SUMMARY | 2024-08-03 05:05 | XMS_ITS | Encounter Summary ---
Author Organization [facility] Address [address] [place] [address]. [place], [place] [address] [place] [address] Care Team Providers Care Supervisor Mill Name Role Phone Soledad Lucas MD Primary [...] st Contact Info) Description 08/19/2024 9:00 AM MONUMENT INSTALLER Office Visit [facility] Medical Group Multispecialty Care - [place] [address] [address] [address] [place] [address] Soledad Lucas MD [address] [place] [address] [address] [place] [address] 12/16/2024 10:40 AM CDT Office Visit [facility] Medical Group Multispecialty Care - [facility] 3 [facility] [address] [place] [address] Ramsey Oakley MD 3 [facility] [address] [place] [address] documented as of this encounter Visit Diagnoses Not on filedocumented in this encounter Additional Health Concerns Assessment Noted Time PHQ-9 Depression Total Score: 1 09/29/19 22 10:03 AM MONUMENT INSTALLER documented as of this encounter Care Teams Supervisor Mill Relationship Specialty Start Date End Date Soledad Lucas MD [address] [address] PCP - General INTERNAL MEDICINE 09/29/21 documented as of this encounter
--- OUTSIDE RECORDS SUMMARY | 2024-08-03 05:05 | XMS_ITS | Encounter Summary ---
Author Organization [facility] Address [address] [place] [address]. [place], [place] [address] [place] [address] Care Team Providers Care Litigation Counsel Name Role Phone Soledad Lucas MD Primary Care Provider [phone] Reason for Visit * Reason Comments Image [...] ( Contact Info) Description 08/19/2024 9:00 AM RESPIRATORY CARE SPECIALIST Office Visit [facility] Medical Group Multispecialty Care - [address] [place], [place] [address] Soledad Lucas MD 1188 [facility] [address] [place] [address] 12/16/2024 10:40 AM CDT Office Visit [facility] Medical Group Multispecialty Care - [facility] [address] [facility] [address] [place] [address] Ramsey Oakley MD [address] [facility] [place] [address] documented as of this encounter Procedures Procedure [...] Total Score: 1 09/29/19 22 10:03 AM RESPIRATORY CARE SPECIALIST documented as of this encounter Care Teams Litigation Counsel Relationship Specialty Start Date End Date Soledad Lucas MD 1188 [facility] 157 [place] [address] PCP - General INTERNAL MEDICINE 09/29/21 documented as of this encounter
--- OUTSIDE RECORDS SUMMARY | 2024-08-03 05:05 | XMS_ITS | Encounter Summary ---
Author Organization [facility] Address [address] [place] [address]. [address] [address] Care Team Providers Care Customer Services Manager Name Role Phone Soledad Lucas MD Primary Care Provider Reason for Referral * Imaging (Routine) - Closed Specialty Diagnoses / Procedures Referred By Prasanth santillan Referred To Contact RADIOLOGY Diagnoses Disc disease, degenerative, lumbar or lumbosacral Chronic bilateral low back pain with left-sided sciatica Procedures MRI LUMB SPINE WO CON Soledad Lucas MD [address] [address] Phone: tel: fax: Referral ID Status Reason Start Date Expiration Date Visits Re quested Visits Authorized [id number] Closed 04/21/2022 04/21/2023 1 1 * Physical [...] IV OFFICE/OUTPT VISIT,EST,LEVL V Soledad Lucas MD [address] [address] Phone: tel: fax: [facility] [address] [place] [address] Phone: tel: fax: Referral ID Status Reason Start Date Expiration Date V isits Requested Visits Authorized [id number] Closed Physical Therapy 04/06/2022 05/06/2023 10 10 Scheduling Instructions [place] location please. Reason for Visit * Reason Onset Date Comments Follow Up Call 04/05/2022 Encounter Details Date Type Department Care Team (Late st Contact Info) Description 04/05/2022 Telephone [facility] Medical [facility] Multispecialty Care - [place] [address] [address] [place] [address] Soledad Lucas MD [address] [address] Follow Up Call Social History Tobacco Use [...] 2 orders placed. He is yet to picking machine operator helper his medications. Patient encouraged to take all medications as directed. All questions answered. Soledad Lucas MD Internal Medicine [facility]. documented in this encounter Plan of Treatment Upcoming Encounters Date Type Department Care Team (Late st Contact Info) Description 08/19/2024 9:00 AM ELECTRICAL JOURNEYMAN [facility] [place] [facility] - [address] [place] [address] Soledad Lucas MD [address] [place] [address] 157 [place] [address] 12/16/2024 10:40 AM CDT [facility] [place] [facility] - [facility] 3 [facility] [address] [place] [address] Ramsey Oakley MD 3 [facility] [address] [place] [address] Scheduled Referrals Name Type Priority Associated Diagnoses [...] Score: 1 09/29/19 22 10:03 AM ELECTRICAL JOURNEYMAN documented as of this encounter Care Teams Customer Services Manager Relationship Specialty Start Date End Date Soledad Lucas MD [address] [address] PCP - General INTERNAL MEDICINE 09/29/21 documented as of this encounter
--- OUTSIDE RECORDS SUMMARY | 2024-08-03 05:05 | XMS_ITS | Encounter Summary ---
Author Organization [facility] Address [address] [place] [address]. [address] [address] Care Team Providers Care Check Inspector Name Role Phone Soledad Lucas MD Primary Care Provider Reason for Visit * Reason Onset Date Comments Question 04/04/2022 Encounter Details Date Type Department Care Team (Late st Contact Info) Description 04/04/2022 Telephone [facility] Medical Group Multispecialty Care - [place] [address] [address] [place] [address] Soledad Lucas MD [address] [place] [address] 157 [place] [address] Question Social History Tobacco Use [...] st Contact Info) Description 08/19/2024 9:00 AM ELDERLY SITTER [facility] - [place] [address] [address] [place] [address] Soledad Lucas MD [address] [place] [address] 12/16/2024 10:40 AM CDT [facility] - [facility] 3 [facility] [address] [place] [address] Ramsey Oakley MD 3 [facility] [address] [place] [address] documented as of this encounter Visit Diagnoses Diagnosis Primary osteoarthritis of right knee Primary localized osteoarthrosis, lower leg documented in this encounter Additional Health Concerns Assessment Noted Time PHQ-9 Depression Total Score: 1 09/29/19 22 10:03 AM ELDERLY SITTER documented as of this encounter Care Teams Check Inspector Relationship Specialty [place] [address] [place] [address] PCP - General INTERNAL MEDICINE 09/29/21 documented as of this encounter
--- OUTSIDE RECORDS SUMMARY | 2024-08-03 05:05 | XMS_ITS | Encounter Summary ---
Author Organization [facility] Address [address] [place] [address]. [place], [place] [address] [place] [address] Care Team Providers Care Set Up And Charger Name Role Phone Soledad Lucas MD Primary Care Provider [phone] Encounter Details Date Type Department Care Team [...] st Contact Info) Description 08/19/2024 9:00 AM BRICK MAKER Office Visit [facility] Medical Group Multispecialty Care - [place] [address] [address] [place] [address] Soledad Lucas MD [address] [place] [address] [address] [place] [address] 12/16/2024 10:40 AM CDT Office Visit [facility] Medical Group Multispecialty Care - [facility] 3 [facility] [address] [place] [address] Ramsey Oakley MD 3 [facility] [address] [place] [address] documented as of this encounter Visit Diagnoses Not on filedocumented in this encounter Additional Health Concerns Assessment Noted Time PHQ-9 Depression Total Score: 1 09/29/19 22 10:03 AM BRICK MAKER documented as of this encounter Care Teams Set Up And Charger Relationship Specialty Start Date End Date Soledad Lucas MD [address] [address] PCP - General INTERNAL MEDICINE 09/29/21 documented as of this encounter
--- OUTSIDE RECORDS SUMMARY | 2024-08-03 05:05 | XMS_ITS | Encounter Summary ---
Author Organization [facility] Address [address] [place] [address]. [address] [address] Care Team Providers Care Stock Tracer Name Role Phone Soledad Lucas MD Primary Care Provider [phone] Reason for Visit * Reason Onset Date Comments Results 02/09/2022 Encounter Details Date Type Department Care Team (Late st Contact Info) Description 02/09/2022 Telephone [facility] Medical Group Multispecialty Care - [place] [address] [address] [place] [address] Soledad Lucas MD [address] [place] [address] 157 [place] [address] Results Social History Tobacco Use [...] Contact Info) Description 08/19/2024 9:00 AM PACKAGE DELIVERY ROOM SERVICE RUNNER [facility] [place] [address] [address] [place] [address] Soledad Lucas MD [address] [place] [address] 12/16/2024 10:40 AM CDT [facility] 3 [facility]., [address] [place] [address] Ramsey Oakley MD [facility] [address] [place] [address] documented as of this encounter Visit Diagnoses Not on filedocumented in this encounter Additional Health Concerns Assessment Noted Time PHQ-9 Depression Total Score: 1 09/29/19 22 10:03 AM PACKAGE DELIVERY ROOM SERVICE RUNNER documented as of this encounter Care Teams Stock Tracer Relationship Specialty Start Date End Date Soledad Lucas MD [address] [place] [address] PCP - General INTERNAL MEDICINE 09/29/21 documented as of this encounter
--- OUTSIDE RECORDS SUMMARY | 2024-08-03 05:05 | XMS_ITS | Encounter Summary ---
Author Organization [facility] Address [address] [place] [address]. [address] [address] Care Team Providers Care Carbon Furnace Operator Name Role Phone Soledad Lucas MD Primary Care Provider [phone] Reason for Referral * (Routine) - Closed Specialty Diagnoses / Procedures Referred By Prasanth santillan Referred To Contact Diagnoses Effusion of right knee Procedures Joint [place]iration[place] [address] [place] [address] Phone: tel: fax: Referral ID Status Reason Start Date Expiration Date Visits Re quested Visits Authorized [id number] Closed 03/25/2022 03/25/2023 1 1 Reason for Visit * Reason Comments Other Patient is here for right knee drainage Knee Pain Encounter Details Date Type Department Care Team (Latest Contact Info) Description 03/25/2022 2:50 PM CDT Office Visit [facility] Medical Group Multispecialty Care - [place] [address] [address] [place] [address] Soledad Lucas MD Critical access hospital[address] [phone] Other (Patient is here for right knee [...] 21 tablet 0 ??? vitamin D2, ergocalciferol, 90989 UNITS capsule Take 1 capsule (50,000 Units [...] was at least in part performed using [employer] and there may be some inherent flaws in this tailings dam pumper due to the nature of this program. Soledad Lucas MD Internal Medicine [facility], [facility]. documented in this encounter Plan of Treatment Upcoming Encounters Date Type Department Care Team (Late st Contact Info) Description 08/19/2024 9:00 AM EXECUTIVE DIRECTOR SHELTERED WORKSHOP [facility] [place] [address] [address] [place] [address] Soledad Lucas MD [address] [place] [address] 12/16/2024 10:40 AM CDT Office Visit [facility]ispecialty [facility] - [address] [place] [address] Ramsey Oakley MD 3 [facility] [address] [place] [address] Scheduled Orders Name Type Priority Associated Diagnoses [...] Total Score: 1 09/29/19 22 10:03 AM EXECUTIVE DIRECTOR SHELTERED WORKSHOP documented as of this encounter Care Teams Carbon Furnace Operator Relationship Specialty Start Date End Date Soledad Lucas MD 1188 [facility] [address] [place] [address] PCP - General INTERNAL MEDICINE 09/29/21 documented as of this encounter
--- OUTSIDE RECORDS SUMMARY | 2024-08-03 05:05 | XMS_ITS | Encounter Summary ---
Author Organization [facility] Address [address] [place] [address]. [place], [place] [address] [place] [address] Care Team Providers Care Tank Hoop Bender Name Role Phone Soledad Lucas MD Primary Care Provider [phone] Encounter Details Date Type Department Care Team [...] st Contact Info) Description 08/19/2024 9:00 AM WINE BOTTLE INSPECTOR Office Visit [facility] Medical Group Multispecialty Care - [place] [address] [address] [place] [address] Soledad Lucas MD [address] [place] [address] [address] [place] [address] 12/16/2024 10:40 AM CDT Office Visit [facility] Medical Group Multispecialty Care - [facility] 3 [facility]., [address] [place] [address] Ramsey Oakley MD 3 [facility] [address] [place] [address] documented as of this encounter Visit Diagnoses Not on filedocumented in this encounter Additional Health Concerns Assessment Noted Time PHQ-9 Depression Total Score: 1 09/29/19 22 10:03 AM WINE BOTTLE INSPECTOR documented as of this encounter Care Teams Tank Hoop Bender Relationship Specialty Start Date End Date Soledad Lucas MD [address] [address] PCP - General INTERNAL MEDICINE 09/29/21 documented as of this encounter
--- OUTSIDE RECORDS SUMMARY | 2024-08-03 05:05 | XMS_ITS | Encounter Summary ---
Author Organization [facility] Address [address] [place] [address]. [place], [place] [address] [place] [address] Care Team Providers Care Pst Specialist Name Role Phone Soledad Lucas MD Primary Care Provider [phone] Reason for Visit * Reason Onset Date Comments Other 03/21/2022 Refill Request Encounter Details Date Type Department Care Team (Late st Contact Info) Description 03/21/2022 Telephone [facility] Multispecialty Care - [place] [address] [address] [place] [address] Soledad Lucas MD [address] [place] [address] 157 [place] [address] Other (Refill Request) Social History [...] st Contact Info) Description 08/19/2024 9:00 AM FABRIC AND TEXTILE FACTORY WORKER Office Visit [facility] Multispecialty Care - [place] [address] [address] [place] [address] Soledad Lucas MD [address] [place] [address] 12/16/2024 10:40 AM CDT Office Visit [facility] Mult[facility]pecialty [facility] 3 [facility] [address] [place] [address] Ramsey Oakley MD 3 [facility] [address] [place] [address] documented as of this encounter Visit Diagnoses Not on filedocumented in this encounter Additional Health Concerns Assessment Noted Time PHQ-9 Depression Total Score: 1 09/29/19 22 10:03 AM FABRIC AND TEXTILE FACTORY WORKER documented as of this encounter Care Teams Pst Specialist Relationship Specialty Start Date End Date Soledad Lucas MD [address] [place] [address] PCP - General INTERNAL MEDICINE 09/29/21 documented as of this encounter
--- OUTSIDE RECORDS SUMMARY | 2024-08-03 05:05 | XMS_ITS | Encounter Summary ---
Author Organization [facility] Address [address] [place] [address]. [address] [address] Care Team Providers Care Tip Cementer Name Role Phone Sloedad Lucas MD Primary Care Provider [phone] Encounter Details Date Type Department Care Team (Latest Contact Info) Description 04/13/2022 - 04/13/2022 11:59 PM CDT [facility] [address] [place] [address] Soledad Lucas MD [address] [address] Discharge Disposition: Home or Self [...] 30 tablet 03/31/2022 2 vitamin D2, ergocalciferol, 67992 UNITS capsuleIndication s:Vitamin D deficiency Take 1 capsule (50,000 Units total) by mouth weekly. 12 capsule 1 09/29/2021 3 documented as of this encounter Plan of Treatment Upcoming Encounters Date Type Department Care Team (Late st Contact Info) Description 08/19/2024 9:00 AM PAINT ROLLER COVERS SUPERVISOR [facility] - [address] [place] [address] Soledad Lucas MD [address] [place] [address] 12/16/2024 10:40 AM CDT [facility] - [facility] 3 [facility]., Suite [facility] [place] [address] Ramsey Oakley MD 3 [facility] [address] [place] [address] documented as of this encounter Visit Diagnoses Not on filedocumented in this encounter Additional Health Concerns Assessment Noted Time PHQ-9 Depression Total Score: 1 09/29/19 10:03 AM PAINT ROLLER COVERS SUPERVISOR documented as of this encounter Care Teams Tip Cementer Relationship Specialty Start Date End Date Soledad Lucas MD [address] [id number] PCP - General INTERNAL MEDICINE 09/29/21 documented as of this encounter
--- OUTSIDE RECORDS SUMMARY | 2024-08-03 05:05 | XMS_ITS | Encounter Summary ---
Author Organization [facility] Address [address] [place] [address]. [place], [place] [address] [place] [address] Care Team Providers Care Raw Stock Machine Feeder Name Role Phone Soledad Lucas MD Primary Care Provider [phone] Encounter Details Date Type Department Care Team (Latest Contact Info) Description 03/02/2022 5:13 PM CDT - 03/02/2022 11:59 PM CDT Hospital Encounter [facility] [address] [place] [address] Soledad Lucas MD [address] [address] Discharge Disposition: Home or Self [...] 21 tablet 02/04/2022 2 vitamin D2, ergocalciferol, [address]1974 UNITS capsuleIndication s:Vitamin D deficiency Take 1 capsule (50,000 Units total) by mouth weekly. 12 capsule 1 09/29/2021 3 documented as of this encounter Plan of Treatment Upcoming Encounters Date Type Department Care Team (Late st Contact Info) Description 08/19/2024 9:00 AM COCOA ROOM OPERATOR [facility] [address] [place] [address] Soledad Lucas MD [address] [place] [address] 12/16/2024 10:40 AM CDT [facility] 3 [facility], [address] [place] [address] Ramsey Oakley MD 3 [facility] [address] [place] [address] [phone] (work) documented as of this encounter Procedures Procedure Name Priority Date/Time Associated Diagnosis Comments HC BODY FLUID CULTURE TIMED 03/02/2022 9:00 AM CDT HC CELL CT BODY FLUID W/DIFF Routine 03/02/2022 9:00 AM CDT documented in this encounter Results * CULTURE, BODY FLUID W/ GRAM STAIN (03/02/2022 9:00 AM CDT) SPEC DESCRIPTION KNEE,LEFT: EFFUSION OF JOINT 03/02/2022 6:23 PM CDT [facility] SPECIAL REQUESTS NO SPECIAL REQUEST 03/02/2022 6:23 PM CDT [facility] GRAM STAIN RESULT RARE NEUTROPHILS SEEN 03/02/2022 8:05 PM CDT [facility] GRAM STAIN RESULT NO ORGANISMS SEEN 03/02/2022 8:05 PM CDT [facility] CULTURE RESULT NO GROWTH 5 DAYS 03/08/2022 10:37 AM CDT [facility] STRUCTURE OF LEFT KNEE REGION / Unknown 03/02/2022 9:00 AM CDT 03/02/2022 6:20 PM CDT Comment:EFFUSION OF JOINT Soledad Lucas MD MICROBIOLOGY - GENERAL ORDERABLE S Final Result Performing Organization Address City/State/[facility] Co de Phone Number [facility] [address] [place] [address], [phone] * CELL COUNT W/ DIFF BODY FLUID (03/02/2022 9:00 AM CDT) SOURCE (FLUID) KNEE,LEFT 03/02/2022 8:45 PM CDT [facility] WBC (FLUID) 0.291 x10'3/uL 03/02/2022 8:45 PM CDT [facility] Comment:REFERENCE RANGE NOT ESTABLISHED RBC (FLUID) 0.004 x10'6/uL 03/02/2022 8:45 PM CDT [facility] Comment:REFERENCE RANGE NOT ESTABLISHED DIFFERENTIAL MANUAL DIFFERENTIAL PERFORMED ON CONCENTRATED CYTOSPIN 03/02/2022 5:15 PM CDT [facility] CELLS COUNTED 100 No COUNTED 03/02/2022 9:29 PM CDT [facility] SEGS (FLUID) 14 % 03/02/2022 9:29 PM CDT [facility] LYMPHS (FLUID) 67 % 03/02/2022 9:29 PM CDT [facility] OTHER MONONUCLEAR CELLS (FLD) 19 % 03/02/2022 9:29 PM CDT [facility] STRUCTURE OF LEFT KNEE REGION / Unknown 03/02/2022 9:00 AM CDT us Soledad Lucas MD BODY FLUIDS AND STOOLS ORDERABLE S Final Result [facility] [address] [place] [address], [id number] documented in this encounter Visit Diagnoses Not on filedocumented in this encounter Additional Health Concerns Assessment Noted Time PHQ-9 Depression Total Score: 1 09/29/19 22 10:03 AM COCOA ROOM OPERATOR documented as of this encounter Care Teams Raw Stock Machine Feeder Relationship Specialty Start Date End Date Soledad Lucas MD [facility] [address] [place] [address] PCP - General INTERNAL MEDICINE 09/29/21 documented as of this encounter
--- OUTSIDE RECORDS SUMMARY | 2024-08-03 05:05 | XMS_ITS | Encounter Summary ---
Author Organization [facility] Address [address] [place] [address]. 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 Procedures MRI LUMB SPINE WO CON Soledad Lucas MD 1188 [facility] [address] [place] [address] Phone: tel: fax: Referral ID Status Reason Start Date Expiration Date Visits Re quested Visits Authorized [id number] Closed 04/21/2022 04/21/2023 1 1 Reason for Visit * Imaging (Routine) - Closed Specialty Diagnoses / Procedures Referred By Prasanth santillan Referred To Contact RADIOLOGY Diagnoses Chronic pain of left knee Procedures MRI KNEE LT WO CON Sidney Ruff MD [address] [place] [address] Phone: tel: fax: Referral ID Status Reason Start Date Expiration Date Visits Re quested Visits Authorized [id number] Closed 04/15/2022 05/15/2023 1 1 Encounter Details Date Type Department Care Team (Latest Contact Info) Description 05/10/2022 11:15 AM CDT - 05/10/2022 11:59 PM CDT Hospital En[facility] [address] [facility] [place] [place], [place] [id number] Sidney Ruff MD [address] [place] [address] Discharge Disposition: Home or Self Care (Routine [...] 30 tablet 05/03/2022 2 vitamin D2, ergocalciferol, [address] UNITS capsuleIndication s:Vitamin D deficiency Take 1 capsule (50,000 Units total) by mouth weekly. 12 capsule 1 09/29/2021 3 documented as of this encounter Plan of Treatment Upcoming Encounters Date Type Department Care Team (Late st Contact Info) Description 08/19/2024 9:00 AM SCALDER Office Visit [facility] Medical Group Multispecialty [place] [address] [facility] [address] [place] [address] Soledad Lucas MD 1188 [facility] [address] [place] [address] 12/16/2024 10:40 AM CDT Office [facility] Medical Group Multispecialty Care - [facility] 3 [facility]., [address] [place] [address] Ramsey Oakley MD [facility] [address] [place] [address] documented as of this encounter Procedures Procedure [...] Total Score: 1 09/29/19 22 10:03 AM SCALDER documented as of this encounter Care Teams Customer Experience Leader Relationship Specialty Start Date End Date Soledad Lucas MD 1187 [facility] [address] [place] [address] PCP - General INTERNAL MEDICINE 09/29/21 documented as of this encounter
--- OUTSIDE RECORDS SUMMARY | 2024-08-03 05:05 | XMS_ITS | Encounter Summary ---
Author Organization [facility] - [facility] Address [address] [place] [address]. [place], [place] [address] [place] [address] Care Team Providers Care Hardware Engineering Manager Name Role Phone Soledad Lucas MD Primary Care Provider [phone] Reason for Visit * Reason Onset Date Comments Reschedule 01/05/2022 Encounter Details Date Type Department Care Team (Late st Contact Info) Description 01/05/2022 Telephone [facility] Medical Group Multispecialty Care - [place] [address] [address] [address] [place] [address] Soledad Lucas MD [address] [place] [address] [address] [place], [place] [id number] Reschedule Social History Tobacco Use Types Packs/Day [...] mychart. Thanks Soledad Lucas MD Internal Medicine [facility], [facility]. * Stewart Lemus - 01/05/2022 8:01 AM CDT Patient called to reschedule appointment for 01/07/22 @9:40am. Patient also wanted to make you aware that he has congestion and a cough. documented in this encounter Plan of Treatment Upcoming Encounters Date Type Department Care Team (Late st Contact Info) Description 08/19/2024 9:00 AM INSERTER OPERATOR [facility] - [address] [place] [address] Soledad Lucas MD [address] [place] [address] 157 [place] [address] 12/16/2024 10:40 AM CDT [facility] [address] [facility] [address] [place] [address] Ramsey Oakley MD [address] [facility] [address] [place] [address] documented as of this encounter Visit Diagnoses Not on filedocumented in this encounter Additional Health Concerns Assessment Noted Time PHQ-9 Depression Total Score: 1 09/29/19 10:03 AM INSERTER OPERATOR documented as of this encounter Care Teams Hardware Engineering Manager Relationship Specialty Start Date End Date Soledad Lucas MD [address] [address] PCP - General INTERNAL MEDICINE 09/29/21 documented as of this encounter
--- OUTSIDE RECORDS SUMMARY | 2024-08-03 05:05 | XMS_ITS | Encounter Summary ---
Author Organization [facility] Address [address] [place] [address]. [place], [place] [address] [place] [address] Care Team Providers Care Market Research Manager Name Role Phone Soledad Lucas MD Primary Care Provider [phone] Encounter Details Date Type Department Care Team [...] st Contact Info) Description 08/19/2024 9:00 AM FORMING ACID DUMPER Office Visit [facility] Medical Group Multispecialty Care - [place] [address] [address] [address] [place] [address] Soledad Lucas MD [address] [place] [address] [address] [place] [address] 12/16/2024 10:40 AM CDT Office Visit [facility] Medical Group Multispecialty Care - [facility] 3 [facility] [address] [place] [address] Ramsey Oakley MD [address] [facility] [address] [place] [address] documented as of this encounter Visit Diagnoses Not on filedocumented in this encounter Additional Health Concerns Assessment Noted Time PHQ-9 Depression Total Score: 1 09/29/19 22 10:03 AM FORMING ACID DUMPER documented as of this encounter Care Teams Market Research Manager Relationship Specialty Start Date End Date Soledad Lucas MD [address] [address] PCP - General INTERNAL MEDICINE 09/29/21 documented as of this encounter
--- OUTSIDE RECORDS SUMMARY | 2024-08-03 05:05 | XMS_ITS | Encounter Summary ---
Author Organization [facility] Address [address] [place] [address]. [address] [address] Care Team Providers Care Rod Puller And Coiler Name Role Phone Soledad Lucas MD Primary Care Provider [phone] Reason for Visit * Reason Onset Date Comments Results 11/05/2021 Encounter Details Date Type Department Care Team (Late st Contact Info) Description 11/05/2021 Telephone [facility] Medical Group Multispecialty Care - [address] [place] [address] Soledad Lucas MD [address] [place] [address] 157 [place] [address] Results Social History Tobacco Use [...] st Contact Info) Description 08/19/2024 9:00 AM CLAIMS MANAGER [facility] [place] [address] [address] [address] [place] [address] Soledad Lucas MD 1188 [facility] 157 [place] [address] 12/16/2024 10:40 AM CDT Office Visit [facility] Multispecialty [facility] - [facility] 3 [facility] [place] [address] Ramsey Oakley MD 3 [facility] [address] [place] [address] documented as of this encounter Visit Diagnoses Not on filedocumented in this encounter Additional Health Concerns Assessment Noted Time PHQ-9 Depression Total Score: 1 09/29/19 22 10:03 AM CLAIMS MANAGER documented as of this encounter Care Teams Rod Puller And Coiler Relationship Specialty Start Date End Date Soledad Lucas MD 1188 [facility] 157 [place] [address] PCP - General INTERNAL MEDICINE 09/29/21 documented as of this encounter
--- OUTSIDE RECORDS SUMMARY | 2024-08-03 05:05 | XMS_ITS | Encounter Summary ---
Author Organization [facility] - [facility] Address [address] [place] [address]. [address] [address] Care Team Providers Care Wastewater Analyst Lab Analyst Name Role Phone Soledad Lucas MD Primary Care Provider [phone] Reason for Visit * Reason Onset Date Comments Medication 03/31/2022 Encounter Details Date Type Department Care Team (Late st Contact Info) Description 03/31/2022 Telephone [facility] Medical Group Multispecialty Care - [address] [place] [address] Soledad Lucas MD [address] [place] [address] 157 [place] [address] Medication Social History Tobacco Use [...] if you can resend his oxy to [facility] [place]. And just FYI he had refused to see the orthopedic surgeon. documented in this encounter Plan of Treatment Upcoming Encounters Date Type Department Care Team (Late st Contact Info) Description 08/19/2024 9:00 AM COMMUNICATION AND OUTREACH MANAGER [facility] [place] [address] [address] [address] [place] [address] [place] [address] [place] [address] 12/16/2024 10:40 AM CDT [facility] 3 [facility] [address] [place] [address] Ramsey Oakley MD 3 [facility] [address] [place] [address] documented as of this encounter Visit Diagnoses Not on filedocumented in this encounter Additional Health Concerns Assessment Noted Time PHQ-9 Depression Total Score: 1 09/29/19 22 10:03 AM COMMUNICATION AND OUTREACH MANAGER documented as of this encounter Care Teams Wastewater Analyst Lab Analyst Relationship Specialty Start Date End Date Soledad Lucas MD 1188 [facility] 157 [place] [address] PCP - General INTERNAL MEDICINE 09/29/21 documented as of this encounter
--- OUTSIDE RECORDS SUMMARY | 2024-08-03 05:05 | XMS_ITS | Encounter Summary ---
Author Organization [facility] Address [address] [place] [address]. [place], [place] [address] [place] [address] Care Team Providers Care Nitrate Operator Name Role Phone Soledad Lucas MD Primary Care Provider Reason for Referral * Imaging (Routine) - Closed Specialty Diagnoses / Procedures Referred By Prasanth santillan Referred To Contact RADIOLOGY Diagnoses Chronic pain of left knee Procedures MRI KNEE LT WO CON Anatoliy Sanz MD [address] [place] [address] Phone: tel: fax: Referral ID Status Reason Start Date Expiration Date Visits Re quested Visits Authorized [id number] Closed 04/15/2022 05/15/2023 1 1 Reason for Visit * Reason Comments Follow Up Lt knee pain * Consultation/Treatment (Routine) - Closed Specialty Diagnoses / Procedures Referred By Prasanth santillan Referred To Contact ORTHOPAEDICS Diagnoses Primary osteoarthritis of both knees Procedures OFFICE/OUTPT VISIT,NEW,LEVL III OFFICE/OUTPT VISIT,NEW,LEVL IV OFFICE/OUTPT VISIT,NEW,LEVL V OFFICE/OUTPT VISIT,EST,LEVL III OFFICE/OUTPT VISIT,EST,LEVL IV OFFICE/OUTPT VISIT,EST,LEVL V Soledad Lucas MD [address] [address] Phone: tel: fax: Anatoliy Sanz MD [address] [place] [address] Phone: tel: fax: Referral ID Status Reason Start Date Expiration Date V isits Requested Visits Authorized [id number] Closed Specialty Services 04/07/2022 10/04/2022 6 6 Encounter Details Date Type Department Care Team (Late st Contact Info) Description 04/15/2022 9:40 AM CDT Office Visit [facility] Medical Group Orthopedic & Sports Medicine - [place] [address] [place], [place] [address] Anatoliy Sanz MD 670 [place] [address] Follow Up (Lt knee pain/) [...] 30 tablet 0 ??? vitamin D2, ergocalciferol, 91385 UNITS capsule Take 1 capsule (50,000 Units [...] Contact Info) Description 08/19/2024 9:00 AM RN ANESTHETIST Office Visit [facility] Medical Group Multispecialty Care - [place] [address] [address] [address] [place] [address] Soledad Lucas MD [address] [place] [address] 12/16/2024 10:40 AM CDT Office Visit [facility] Medical Group Multispecialty Care - [facility] [address] [facility] [address] [place] [address] Ramsey Oakley MD [address] [facility] [address] [place] [address] documented as of this encounter Procedures Procedure [...] Total Score: 1 09/29/19 22 10:03 AM RN ANESTHETIST documented as of this encounter Care Teams Nitrate Operator Relationship Specialty Start Date End Date Soledad Lucas MD [address] [address] PCP - General INTERNAL MEDICINE 09/29/21 documented as of this encounter
--- OUTSIDE RECORDS SUMMARY | 2024-08-03 05:05 | XMS_ITS | Encounter Summary ---
Author Organization [facility] Address [address] [place] [address]. [place], [place] [address] [place] [address] Care Team Providers Care Instructor Bus Trolley And Taxi Name Role Phone Soledad Lucas MD Primary Care Provider [phone] Encounter Details Date Type Department Care Team (Latest Contact Info) Description 12/08/2021 8:42 PM CDT - 12/08/2021 11:59 PM CDT Hospital Encounter [facility] [address] [place] [address] Soledad Lucas MD [address] [address] Discharge Disposition: Home or Self [...] tablet 3 09/30/2021 2 vitamin D2, ergocalciferol, 06438 UNITS capsuleIndications:V itamin D deficiency Take 1 capsule (50,000 Units total) by mouth weekly. 12 capsule 1 09/29/2021 3 documented as of this encounter Plan of Treatment Upcoming Encounters Date Type Department Care Team (Late st Contact Info) Description 08/19/2024 9:00 AM ACQUISITION ASSOCIATE [facility] Multispecialty Care - [place] [address] [address] [address] [place] [address] Soledad Lucas MD [address] [place] [address] 12/16/2024 10:40 AM CDT [facility] Mult[facility]pecialty Care - [facility] [address] [facility] [address] [place] [address] Ramsey Oakley MD 3 [facility] [address] [place] [address] documented as of this encounter Procedures Procedure [...] SITE: LEFT KNEE,FLUID 12/08/2021 9:[address] [facility] SPECIAL REQUESTS NO SPECIAL REQUEST 12/08/2021 9:[address] [facility] GRAM STAIN RESULT NO NEUTROPHILS OR ORGANISMS SEEN 12/09/2021 8:[address] [facility] CULTURE RESULT NO GROWTH 5 DAYS 12/14/2021 10:[address] [facility] SPECIMEN FROM UNSPECIFIED BODY SITE / Unknown 12/08/2021 8:44 PM CDT 12/08/2021 9:15 PM CDT Comment:LEFT KNEE,FLUID us Soledad Lucas MD MICROBIOLOGY - GENERAL ORDERABLE S Final Result [facility] [address] [place] [address], [place] [phone] [id number] * CRYSTALS, BODY FLUID (12/08/2021 8:44 PM CDT) COMMENT PRELIMINARY REPORT: 12/08/2021 9:[address] [facility] Comment: NO CRYSTALS TO BE REVIEWED BY PATHOLOGIST CRYSTAL SOURCE KNEE,LEFT 12/08/2021 8:[address] [facility] COMMENT THIS CRYSTAL REPORT WAS INTERPRETED BY 12/09/2021 7:[address] [facility] Comment: DR ANABEL DEL CASTILLO THE FLUID IS EXAMINED MICROSCOPICALLY WITH AND WITHOUT POLARIZED LIGHT AND WITH AND WITHOUT FIRST ORDER RED CLAM DREDGE BOAT CAPTAIN UNDER 10X AND 40X MAGNIFICATIONS. ??THE FLUID CONTAINS FEW WHITE BLOOD CELLS AND FEW RED BLOOD CELLS. THERE ARE NO MONOSODIUM URATE (MSU OR GOUT) OR CALCIUM PYROPHOSPHATE DIHYDRATE (CPPD OR PSEUDOGOUT) CRYSTALS IDENTIFIED. STRUCTURE OF LEFT KNEE REGION / Unknown 12/08/2021 8:44 PM CDT Soledad Lucas MD BODY FLUIDS AND STOOLS ORDERABLE S Final Result [facility] [address] [place] [address], [place] [phone] * CELL COUNT W/ DIFF BODY FLUID (12/08/2021 8:44 PM CDT) SOURCE (FLUID) KNEE,LEFT 12/08/2021 9:[address] [facility] WBC (FLUID) 0.042 x10'3/uL 12/08/2021 9:[address] [facility] Comment:REFERENCE RANGE NOT ESTABLISHED RBC (FLUID) 0.004 x10'6/uL 12/08/2021 9:[address] [facility] Comment:REFERENCE RANGE NOT ESTABLISHED DIFFERENTIAL MANUAL DIFFERENTIAL PERFORMED ON CONCENTRATED CYTOSPIN 12/08/2021 8:[address] [facility] CELLS COUNTED 100 No COUNTED 12/08/2021 10:[address] [facility] SEGS (FLUID) 16 % 12/08/2021 10:[address] [facility] LYMPHS (FLUID) 82 % 12/08/2021 10:[address] [facility] OTHER MONONUCLEAR CELLS (FLD) 2 % 12/08/2021 10:[address] [facility] STRUCTURE OF LEFT KNEE REGION / Unknown 12/08/2021 8:44 PM CDT us Soledad Lucas MD BODY FLUIDS AND STOOLS ORDERABLE S Final Result [facility] [address] [place] [address], [id number] documented in this encounter Visit Diagnoses Not on filedocumented in this encounter Additional Health Concerns Assessment Noted Time PHQ-9 Depression Total Score: 1 09/29/19 10:03 AM ACQUISITION ASSOCIATE documented as of this encounter Care Teams Instructor Bus Trolley And Taxi Relationship Specialty Start Date End Date Soledad Lucas MD [address] [address] PCP - General INTERNAL MEDICINE 09/29/21 documented as of this encounter
--- OUTSIDE RECORDS SUMMARY | 2024-08-03 05:05 | XMS_ITS | Encounter Summary ---
Author Organization [facility] Address [address] [place] [address]. [place], [place] [address] [place] [address] Care Team Providers Care Pin Attacher Name Role Phone Soledad uLcas MD Primary Care Provider [phone] Encounter Details Date Type Department Care Team [...] st Contact Info) Description 08/19/2024 9:00 AM MIDDLE SCHOOL PRINCIPAL Office Visit [facility] Medical Group Multispecialty Care - [place] [address] [address] [address] [place] [address] Soledad Lucas MD [address] [place] [address] [address] [place] [address] 12/16/2024 10:40 AM CDT Office Visit [facility] Medical Group Multispecialty Care - [facility] 3 [facility] [address] [place] [address] Ramsey Oakley MD 3 [facility] [address] [place] [address] documented as of this encounter Visit Diagnoses Not on filedocumented in this encounter Additional Health Concerns Assessment Noted Time PHQ-9 Depression Total Score: 1 09/29/19 22 10:03 AM MIDDLE SCHOOL PRINCIPAL documented as of this encounter Care Teams Pin Attacher Relationship Specialty Start Date End Date Soledad Lucas MD [address] [address] PCP - General INTERNAL MEDICINE 09/29/21 documented as of this encounter
--- OUTSIDE RECORDS SUMMARY | 2024-08-03 05:05 | XMS_ITS | Encounter Summary ---
Author Organization [facility] Address [address] [place] [address]. [place], [place] [address] [place] [address] Care Team Providers Care Junior Systems Engineer Name Role Phone Soledad Lucas MD Primary Care Provider [phone] Encounter Details Date Type Department Care Team [...] st Contact Info) Description 08/19/2024 9:00 AM STAVE BLOCK ROLLER Office Visit [facility] Medical Group Multispecialty Care - [place] [address] [address] [place] [address] Soledad Lucas MD [address] [place] [address] [address] [place] [address] 12/16/2024 10:40 AM CDT Office Visit [facility] Medical Group Multispecialty Care - [facility] 3 [facility] [address] [place] [address] Ramsey Oakley MD 3 [facility] [address] [place] [address] documented as of this encounter Visit Diagnoses Not on filedocumented in this encounter Additional Health Concerns Assessment Noted Time PHQ-9 Depression Total Score: 1 09/29/19 22 10:03 AM STAVE BLOCK ROLLER documented as of this encounter Care Teams Junior Systems Engineer Relationship Specialty Start Date End Date Soledad Lucas MD [address] [address] PCP - General INTERNAL MEDICINE 09/29/21 documented as of this encounter
--- OUTSIDE RECORDS SUMMARY | 2024-08-03 05:05 | XMS_ITS | Encounter Summary ---
Author Organization [facility] Address [address] [place] [address]. [place], [place] [address] [place] [address] Care Team Providers Care Cloud Systems Architect Name Role Phone Soledad Lucas MD Primary Care Provider [phone] Reason for Visit * Reason Onset Date Comments Results 01/10/2022 Talked with mio ent and let him know about CXR and also talked ti him about his prescriptions. At this moment there is no further questions. Encounter Details Date Type Department Care Team (Late st Contact Info) Description 01/10/2022 Telephone [facility] Medical Group Multispecialty Care - [place] [address] [address] [place] [address] Soledad Lucas MD [address] [place] [phone] Results (Talked with patient and let him [...] Contact Info) Description 08/19/2024 9:00 AM PURIFICATION OPERATOR HELPER [facility] - [place] [address] [address] [place] [address] Soledad Lucas MD [address] [place] [address] 12/16/2024 10:40 AM CDT [facility] 3 [facility] [address] [place] [address] Ramsey Oakley MD 3 [facility] [address] [place] [address] documented as of this encounter Visit Diagnoses Not on filedocumented in this encounter Additional Health Concerns Assessment Noted Time PHQ-9 Depression Total Score: 1 09/29/19 22 10:03 AM PURIFICATION OPERATOR HELPER documented as of this encounter Care Teams Cloud Systems Architect Relationship Specialty Start Date End Date Soledad Lucas MD [address] [place] [address] PCP - General INTERNAL MEDICINE 09/29/21 documented as of this encounter
--- OUTSIDE RECORDS SUMMARY | 2024-08-03 05:05 | XMS_ITS | Encounter Summary ---
Author Organization [facility] Address [address] [place] [address]. [place], [place] [address] [place] [address] Care Team Providers Care Apricot Packer Name Role Phone Soledad Lucas MD Primary Care Provider [phone] Encounter Details Date Type Department Care Team [...] Contact Info) Description 08/19/2024 9:00 AM ASSOCIATE FACULTY Office Visit [facility] Medical Group Multispecialty Care - [place] [address] [address] [place] [address] Soledad Lucas MD [address] [place] [address] [address] [place] [address] 12/16/2024 10:40 AM CDT Office Visit [facility] Medical Group Multispecialty Care - [facility] [address] [facility] [address] [place] [address] Ramsey Oakley MD [address] [facility] [address] [place] [address] documented as of this encounter Visit Diagnoses Not on filedocumented in this encounter Additional Health Concerns Assessment Noted Time PHQ-9 Depression Total Score: 1 09/29/19 22 10:03 AM ASSOCIATE FACULTY documented as of this encounter Care Teams Apricot Packer Relationship Specialty Start Date End Date Soledad Lucas MD [address] [address] PCP - General INTERNAL MEDICINE 09/29/21 documented as of this encounter
--- OUTSIDE RECORDS SUMMARY | 2024-08-03 05:05 | XMS_ITS | Encounter Summary ---
Author Organization [facility] Address [address] [place] [address]. [address] [address] Care Team Providers Care Garbage Collector Supervisor Name Role Phone Soledad Lucas MD Primary Care Provider [phone] Reason for Referral * Imaging (Routine) - Closed Specialty Diagnoses / Procedures Referred By Prasanth santillan Referred To Contact RADIOLOGY Diagnoses Primary osteoarthritis of both knees Procedures XR KNEE RT 3V Soledad Lucas MD [address] [address] Phone: tel: fax: Referral ID Status Reason Start Date Expiration Date Visits Re quested Visits Authorized [id number] Closed 02/04/2022 03/07/2023 1 1 * Imaging (Routine) - Closed Specialty Diagnoses / Procedures Referred By Prasanth santillan Referred To Contact RADIOLOGY Diagnoses Primary osteoarthritis of both knees Procedures XR KNEE LT 3V Soledad Lucas MD [address] [address] Phone: tel: fax: Referral ID Status Reason Start Date Expiration Date Visits Re quested Visits Authorized [id number] Closed 02/04/2022 03/07/2023 1 1 Reason for [...] Description 02/04/2022 9:40 AM CDT Office Visit [facility] Medical Group Multispecialty Care - [place] [address] [address] [address] [address] [place] [address] Soledad Lucas MD 1188 [facility] 157 [place] [address] Asthma; Knee Pain (Patient states his knees [...] Care Everywhere. * Asthma Discharge Instructions, Adult ([place]) documented in this encounter Progress Notes * [...] throat) HPI: Juliet Stout is a 60-year-old -[place] male who presents for follow- up for [...] 21 tablet 0 ??? vitamin D2, ergocalciferol, [address]65[address] UNITS capsule Take 1 capsule (50,000 Units [...] was at least in part performed using [employer] and there may be some inherent flaws in this concrete mixer operator helper due to the nature of this program. Soledad Lucas MD Internal Medicine [facility], [facility]. documented in this encounter Plan of Treatment Upcoming Encounters Date Type Department Care Team (Late st Contact Info) Description 08/19/2024 9:00 AM ARMATURE COIL WINDER [facility] [place] [address] [address] [place] [address] Soledad Lucas MD 1188 [facility] [address] [place] [address] 12/16/2024 10:40 AM CDT [facility] 3 [facility] [address] [place] [address] Ramsey Oakley MD [address] [facility] [address] [place] [address] documented as of this encounter Procedures Procedure [...] Total Score: 1 09/29/19 22 10:03 AM ARMATURE COIL WINDER documented as of this encounter Care Teams Garbage Collector Supervisor Relationship Specialty Start Date End Date Soledad Lucas MD [address] [address] PCP - General INTERNAL MEDICINE 09/29/21 documented as of this encounter
--- OUTSIDE RECORDS SUMMARY | 2024-08-03 05:05 | XMS_ITS | Encounter Summary ---
Author Organization [facility] Address [address] [place] [address]. [place], [place] [address] [place] [address] Care Team Providers Care Candy Spreader Helper Name Role Phone Soledad Lucas MD Primary Care Provider [phone] Encounter Details Date Type Department Care Team (Latest Contact Info) Description 03/25/2022 8:43 PM CDT - 03/25/2022 11:59 PM CDT Hospital Encounter [facility] [address] [place] [address] Soledad Lucas MD [address] [address] Discharge Disposition: Home or Self [...] 30 tablet 03/25/2022 2 vitamin D2, ergocalciferol, 82113 UNITS capsuleIndication s:Vitamin D deficiency Take 1 capsule (50,000 Units total) by mouth weekly. 12 capsule 1 09/29/2021 3 documented as of this encounter Plan of Treatment Upcoming Encounters Date Type Department Care Team (Late st Contact Info) Description 08/19/2024 9:00 AM ICE SKATER [facility] [place] [address] [address] [place] [address] Soledad Lucas MD [address] [place] [address] [address] [place] [address] 12/16/2024 10:40 AM CDT [facility] 3 [facility], Suite [facility] [place] [address] Ramsey Oakley MD 3 [facility] [address] [place] [address] documented as of this encounter Procedures Procedure Name Priority Date/Time Associated Diagnosis Comments CULTURE, ROUTINE W/ GRAM STAIN Routine 03/25/2022 12:00 PM CDT CRYSTALS, BODY FLUID Routine 03/25/2022 12:00 PM CDT CELL COUNT W/ DIFF BODY FLUID Routine 03/25/2022 12:00 PM CDT documented in this encounter Results * CRYSTALS, BODY FLUID (03/25/2022 12:00 PM CDT) COMMENT PRELIMINARY REPORT: 03/25/2022 9:39 PM CDT [facility] Comment: NO CRYSTALS TO BE REVIEWED BY PATHOLOGIST CRYSTAL SOURCE KNEE,RIGHT 03/25/2022 8:45 PM CDT [facility] COMMENT THIS CRYSTAL REPORT WAS INTERPRETED BY 03/28/2022 8:49 AM CDT [facility] Comment: DR MARY JAMES MD THE FLUID IS EXAMINED MICROSCOPICALLY WITH AND WITHOUT POLARIZED LIGHT AND WITH AND WITHOUT FIRST ORDER RED TECHNOLOGY PROJECT MANAGER UNDER 10X AND 40X MAGNIFICATIONS. ??THE FLUID CONTAINS FEW WHITE BLOOD CELLS AND FEW RED BLOOD CELLS. THERE ARE NO MONOSODIUM URATE (MSU OR GOUT) OR CALCIUM PYROPHOSPHATE DIHYDRATE (CPPD OR PSEUDOGOUT) CRYSTALS IDENTIFIED. STRUCTURE OF RIGHT KNEE REGION / Unknown 03/25/2022 12:00 PM CDT Soledad Lucas MD BODY FLUIDS AND STOOLS ORDERABLE S Final Result [facility] [address] [place] [address], [phone] * CELL COUNT W/ DIFF BODY FLUID (03/25/2022 12:00 PM CDT) SOURCE (FLUID) RIGHT KNEE 03/25/2022 9:58 PM CDT [facility] WBC (FLUID) 0.348 x10'3/uL 03/25/2022 9:58 PM CDT [facility] Comment:REFERENCE RANGE NOT ESTABLISHED RBC (FLUID) 0.012 x10'6/uL 03/25/2022 9:58 PM CDT [facility] Comment:REFERENCE RANGE NOT ESTABLISHED DIFFERENTIAL MANUAL DIFFERENTIAL PERFORMED ON CONCENTRATED CYTOSPIN 03/25/2022 8:45 PM CDT [facility] CELLS COUNTED 100 No COUNTED 03/25/2022 9:58 PM CDT [facility] SEGS (FLUID) 31 % 03/25/2022 11:04 PM CDT [facility] LYMPHS (FLUID) 28 % 03/25/2022 11:04 PM CDT [facility] OTHER MONONUCLEAR CELLS (FLD) 41 % 03/25/2022 11:04 PM CDT [facility] STRUCTURE OF RIGHT KNEE REGION / Unknown 03/25/2022 12:00 PM CDT us Soledad Lucas MD BODY FLUIDS AND STOOLS ORDERABLE S Final Result Performing Organization Address [facility] de Phone Number [facility] [address] [place] [address], [phone] * CULTURE, ROUTINE W/ GRAM STAIN (AEROBIC) (03/25/2022 12:00 PM CDT) SPEC DESCRIPTION KNEE,RIGHT 03/25/2022 8:45 PM CDT [facility] SPECIAL REQUESTS NO SPECIAL REQUEST 03/25/2022 8:45 PM CDT [facility] GRAM STAIN RESULT RARE NEUTROPHILS SEEN 03/25/2022 10:09 PM CDT [facility] GRAM STAIN RESULT NO ORGANISMS SEEN 03/25/2022 10:09 PM CDT [facility] CULTURE RESULT NO GROWTH 5 DAYS 03/31/2022 10:44 AM CDT [facility] STRUCTURE OF RIGHT KNEE REGION / Unknown 03/25/2022 12:00 PM CDT 03/25/2022 9:04 PM CDT us Soledad Lucas MD MICROBIOLOGY - GENERAL ORDERABLE S Final Result [facility] [address] [place] [address], [phone] documented in this encounter Visit Diagnoses Not on filedocumented in this encounter Additional Health Concerns Assessment Noted Time PHQ-9 Depression Total Score: 1 09/29/19 22 10:03 AM ICE SKATER documented as of this encounter Care Teams Candy Spreader Helper Relationship Specialty Start Date End Date Soledad Lucas MD [facility] [address] PCP - General INTERNAL MEDICINE 09/29/21 documented as of this encounter
--- OUTSIDE RECORDS SUMMARY | 2024-08-03 05:05 | XMS_ITS | Encounter Summary ---
Author Organization [facility] Address [address] [place] [address]. [place], [place] [address] [place] [address] Care Team Providers Care Tire Recapper Name Role Phone Soledad Lucas MD Primary Care Provider [phone] Reason for Referral * Procedure (Routine) - Closed Specialty Diagnoses / Procedures Referred By Prasanth santillan Referred To Contact Diagnoses Mild intermittent asthma without complication (HHS/HCC) Procedures Complete PFT (pre/post [place], Lung Vol, Diff Capacity) (29024, 92133, 27386, 28710) Soledad Lucas MD [address] [place] [address] Phone: tel: fax: Referral ID Status Reason Start Date Expiration Date Visits Re quested Visits Authorized [id number] Closed 11/01/2021 12/02/2022 1 1 Reason for Visit * Reason Comments Follow Up Pt is here to follow up on his blood pressure, asthma and pain in right thumb. Encounter Details Date Type Department Care Team (Latest Contact Info) Description 11/01/2021 10:40 AM CDT Office Visit [facility] Multispecialty Care - [place] [address] [address] [place], [place] [address] Soledad Lucas MD [facility] [address] Follow Up (Pt is here [...] These are nonsteroidal anti-inflammatory drugs (NSAIDS). Some uzkq-ttc-kpqaslb medicines and prescription medicines contain the same [...] needed? If you are overweight, ask a car pusher for a weight loss plan. Weight loss [...] very bad. Where can I learn more? [place] [employer] http://orthoinfo.aaos.org/topic.cfm?adpus=y15568 Arthritis Foundation http://www.arthritis.org/conditions-treatments/disease-center/osteoarthritis/ National [place] of Arthritis and Musculoskeletal and Skin Diseases http://www.niams.nih.gov/Health_Info/Osteoarthritis/osteoarthritis_ff.pdf National [place] of Health ? Senior Health http://nihseniorhealth.gov/osteoarthritis/whatisosteoarthritis/01.html Last [...] or approved for treating a specific patient. too.me. and its affiliates disclaim any warranty or liability relating to this information or the use thereof. The use of this information is governed by the Terms of Use, available at https://www.Kast.[employer]aver [employer]/en/solutions/lexicomp/about/aleks Copyright Copyright ?? 2020 too.me. and its affiliates and/or licensors. All rights [...] 60 tablet 3 ??? vitamin D2, ergocalciferol, 52197 UNITS capsule Take 1 capsule (50,000 Units [...] 493.90 MILD INTERMITTENT ASTHMA Complete PFT (pre/post [place], Lung Vol, Diff Capacity) (73997, 65079, 14742, 55030) albuterol sulfate HFA 108 (90 Base) MCG/ACT inhaler 3. 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 Need for prophylactic vaccination against Streptococcus pneumoniae (pneumococcus) Z23 V03.82 REQUIRES VACCINATION [01847] Pneumovax 23 (Pneumococcal) 1. Primary hypertension - [...] complication - Controlled - Complete PFT (pre/post [place], Lung Vol, Diff Capacity) (92456, 85941, 30350, 01437); Future - albuterol sulfate HFA 108 (90 [...] prophylactic vaccination against Streptococcus pneumoniae (pneumococcus) - [30760] Pneumovax 23 (Pneumococcal) Counseling given: Yes Comment: [...] up office visit in 4 months. [facility] or telephone follow up prn if symptoms change, worsen, or persist, or if side effect of treatment is experienced. DRAGON: This dictation was at least in part performed using [employer] speak and there may be some inherent flaws in this tire worker due to the nature of this program. Soledad Lucas MD Internal Medicine [facility], [facility]. documented in this encounter Plan of Treatment Upcoming Encounters Date Type Department Care Team (Late st Contact Info) Description 08/19/2024 9:00 AM HOSPITAL UNIT COORDINATOR [facility] - [place] [address] [address] [place] [address] [place] [address] [place] [address] 157 [place] [address] 12/16/2024 10:40 AM CDT [facility] - 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 D: ??11/17/2021 02:14 PM #[id number] T: ??11/17/2021 04:46 PM /NTS Procedure Note [...] limits. 4. Unadjusted DLCO within normal limits. #[id number] /NTS Soledad Lucas MD PFT ORDERABLES Edited [...] Depression Total Score: 1 09/29/19 10:03 AM HOSPITAL UNIT COORDINATOR documented as of this encounter Care Teams Tire Recapper Relationship Specialty Start Date End Date Soledad Lucas MD [address] [address] PCP - General INTERNAL MEDICINE 09/29/21 documented as of this encounter
--- OUTSIDE RECORDS SUMMARY | 2024-08-03 05:05 | XMS_ITS | Encounter Summary ---
Author Organization [facility] Address [address] [place] [address]. [place], [place] [address] [place] [address] Care Team Providers Care Senior Php Web Developer Name Role Phone Soledad Lucas MD Primary Care Provider Reason for Visit * Reason Onset Date Comments Reschedule 02/15/2022 Encounter Details Date Type Department Care Team (Late st Contact Info) Description 02/15/[address] [facility] Multispecialty Care - [place] [address] [address] [place] [address] Soledad Lucas MD [address] [place] [address] [address] [place], [place] [phone] Reschedule Social History Tobacco Use Types Packs/Day [...] st Contact Info) Description 08/19/2024 9:00 AM COMEDIAN [facility] [place] [address] [address] [place] [address] Soledad Lucas MD [address] [place] [address] 12/16/2024 10:40 AM CDT [facility] 3 [facility] [address] [place] [address] Ramsey Oakley MD [facility] [address] [place] [address] documented as of this encounter Visit Diagnoses Not on filedocumented in this encounter Additional Health Concerns Assessment Noted Time PHQ-9 Depression Total Score: 1 09/29/19 10:03 AM COMEDIAN documented as of this encounter Care Teams Senior Php Web Developer Relationship Specialty Start Date End Date Soledad Lucas MD [address] [place] [address] PCP - General INTERNAL MEDICINE 09/29/21 documented as of this encounter
--- OUTSIDE RECORDS SUMMARY | 2024-08-03 05:05 | XMS_ITS | Encounter Summary ---
Author Organization [facility] Address [address] [place] [address] [address] Care Team Providers Care Pharmaceutical Salesperson Name Role Phone Soledad Lucas MD Primary Care Provider [phone] Reason for Visit * Reason Onset Date Comments Reschedule 03/18/2022 Encounter Details Date Type Department Care Team (Late st Contact Info) Description 03/18/2022 Telephone [facility] Multispecialty Care - [place] [address] [address] [place] [address] Soledad Lucas MD [address] [place] [address] [address] [place], [place] [address] Reschedule Social History Tobacco Use Types Packs/Day [...] st Contact Info) Description 08/19/2024 9:00 AM DUST COLLECTOR OPERATOR Office Visit [facility] Multispecialty Care - [place] [address] [address] [place] [address] [place] [address] [place] [address] 12/16/2024 10:40 AM CDT [facility] 3 [facility] [address] [place] [address] Ramsey Oakley MD 3 [facility] [address] [place] [address] documented as of this encounter Visit Diagnoses Not on filedocumented in this encounter Additional Health Concerns Assessment Noted Time PHQ-9 Depression Total Score: 1 09/29/19 22 10:03 AM DUST COLLECTOR OPERATOR documented as of this encounter Care Teams Pharmaceutical Salesperson Relationship Specialty Start Date End Date Soledad Lucas MD 1188 [facility] [address] [place] [address] PCP - General INTERNAL MEDICINE 09/29/21 documented as of this encounter
--- OUTSIDE RECORDS SUMMARY | 2024-08-03 05:05 | XMS_ITS | Encounter Summary ---
Author Organization [facility] Address [address] [place] [address]. [place] [address] Care Team Providers Care Hasher Operator Name Role Phone Soledad Lucas MD Primary Care Provider [phone] Reason for Referral * Consultation/Treatment (Routine) - Closed Specialty Diagnoses / Procedures Referred By Prsaanth santillan Referred To Contact ORTHOPAEDICS Diagnoses Primary osteoarthritis of both knees Procedures OFFICE/OUTPT VISIT,NEW,LEVL III OFFICE/OUTPT VISIT,NEW,LEVL IV OFFICE/OUTPT VISIT,NEW,LEVL V OFFICE/OUTPT VISIT,EST,LEVL III OFFICE/OUTPT VISIT,EST,LEVL IV OFFICE/OUTPT VISIT,EST,LEVL V Soledad Lucas MD [address] [address] Phone: tel: fax: Sidney Ruff MD [address] [place] [address] Phone: tel: fax: Referral ID Status Reason Start Date Expiration Date V isits Requested Visits Authorized [id number] Closed Specialty Services 04/07/2022 10/04/2022 6 6 Reason for Visit * Reason Onset Date Comments Referral 03/30/2022 Encounter Details Date Type Department Care Team (Late st Contact Info) Description 03/30/2022 Telephone [facility] - [place] 1188 [facility] [address] [place] [address] Soledad Lucas MD 1188 [facility] 157 [place] [address] Referral Social History Tobacco Use Types Packs/Day [...] referral placed. Soledad Lucas MD Internal Medicine [facility], [facility]. documented in this encounter Plan of Treatment Upcoming Encounters Date Type Department Care Team (Late st Contact Info) Description 08/19/2024 9:00 AM RELIEF PHARMACIST [facility] [address] [place] [address] Soledad Lucas MD [address] [address] 12/16/2024 10:40 AM CDT Office Visit [facility]ialty Care - [facility] 3 [facility] [address] [place] [address] Ramsey Oakley MD 3 [facility] [address] [place] [address] Scheduled Referrals Name Type Priority Associated Diagnoses Orde r Schedule Ambulatory referral to Orthopedics ([facility]) Referral Routine Primary osteoarthritis of both knees Ordered: 03/30/2022 documented as of this encounter Visit Diagnoses Diagnosis Primary osteoarthritis of both knees- Primary Primary localized osteoarthrosis, lower leg documented in this encounter Additional Health Concerns Assessment Noted Time PHQ-9 Depression Total Score: 1 09/29/19 10:03 AM RELIEF PHARMACIST documented as of this encounter Care Teams Hasher Operator Relationship Specialty Start Date End Date Soledad Lucas MD [address] [place] [address] PCP - General INTERNAL MEDICINE 09/29/21 documented as of this encounter
--- OUTSIDE RECORDS SUMMARY | 2024-08-03 05:05 | XMS_ITS | Encounter Summary ---
Author Organization [facility] Address [address] [place] [address]. [place], [place] [address] [place] [address] Care Team Providers Care Shingle Bolt Cutter Name Role Phone Soledad Lucas MD Primary Care Provider [phone] Reason for Visit * Reason Onset Date Comments Reschedule 02/18/2022 Encounter Details Date Type Department Care Team (Late st Contact Info) Description 02/18/2022 Telephone [facility] Medical Group Multispecialty Care - [place] [address] [address] [place] [address] Soledad Lucas MD [address] [place] [address] 157 [place], [place] [phone] Reschedule Social History Tobacco Use Types Packs/Day [...] st Contact Info) Description 08/19/2024 9:00 AM SPINNING FRAME CLEANER [facility] [place] [address] [address] [place] [address] Soledad Lucas MD [address] [place] [address] 12/16/2024 10:40 AM CDT [facility] 3 [facility]., [address] [place] [address] Ramsey Oakley MD [facility] [address] [place] [address] documented as of this encounter Visit Diagnoses Not on filedocumented in this encounter Additional Health Concerns Assessment Noted Time PHQ-9 Depression Total Score: 1 09/29/19 10:03 AM SPINNING FRAME CLEANER documented as of this encounter Care Teams Shingle Bolt Cutter Relationship Specialty Start Date End Date Soledad Lucas MD [address] [place] [address] PCP - General INTERNAL MEDICINE 09/29/21 documented as of this encounter
--- OUTSIDE RECORDS SUMMARY | 2024-08-03 05:05 | XMS_ITS | Encounter Summary ---
Author Organization [facility] Address [address] [place] [address]. [address] [address] Care Team Providers Care Tool/Die Maker Name Role Phone Soledad Lucas MD Primary Care Provider [phone] Reason for Referral * (Routine) - Closed Specialty Diagnoses / Procedures Referred By Prasanth santillan Referred To Contact Diagnoses Effusion of bursa of left knee Procedures Joint Aspiration[place] [address] [place] [address] Phone: tel: fax: Referral ID Status Reason Start Date Expiration Date Visits Re quested Visits Authorized [id number] Closed 04/13/2022 04/13/2023 1 1 Reason for Visit * Reason Comments Joint Pain Encounter Details Date Type Department Care Team (Late st Contact Info) Description 04/13/2022 11:00 AM CDT Office Visit [facility] Multispecialty Care - [place] [address] [address] [place] [address] [place] [address] [place] [id number] Joint Pain Social History Tobacco Use Types [...] 30 tablet 0 ??? vitamin D2, ergocalciferol, 68229 UNITS capsule Take 1 capsule (50,000 Units [...] was at least in part performed using [employer] and there may be some inherent flaws in this ingredient mixer due to the nature of this program. Soledad Lucas MD Internal Medicine [facility], [facility]. documented in this encounter Plan of Treatment Upcoming Encounters Date Type Department Care Team (Late st Contact Info) Description 08/19/2024 9:00 AM ZIGZAG ELASTIC ATTACHER [facility] [address] [place] [address] Soledad Lucas MD [address] [place] [address] 12/16/2024 10:40 AM CDT Office Visit [facility] - [address], [address] [place] [address] Ramsey Oakley MD [address] [place] [address] Scheduled Orders Name Type Priority Associated Diagnoses [...] SOURCE (FLUID) KNEE,LEFT 04/13/2022 9:29 PM CDT [facility] TOTAL NUCLEATED CELL COUNT 0.065 x10'3/uL 04/13/2022 10:05 PM CDT [facility] Comment:ADJUSTED FOR NUCLEAT ED RBC'S RBC (FLUID) 0.001 x10'6/uL 04/13/2022 9:29 PM CDT [facility] Comment:REFERENCE RANGE NOT ESTABLISHED DIFFERENTIAL MANUAL DIFFERENTIAL PERFORMED ON CONCENTRATED CYTOSPIN 04/13/2022 6:50 PM CDT [facility] CELLS COUNTED 100 No COUNTED 04/13/2022 10:09 PM CDT [facility] SEGS (FLUID) 23 % 04/13/2022 10:05 PM CDT [facility] LYMPHS (FLUID) 71 % 04/13/2022 10:05 PM CDT [facility] OTHER MONONUCLEAR CELLS (FLD) 6 04/13/2022 10:05 PM CDT [facility] NRBC 1 % 04/13/2022 10:05 PM CDT [facility] STRUCTURE OF LEFT KNEE REGION / Unknown 04/13/2022 1:30 PM CDT us Soledad Lucas MD BODY FLUIDS AND STOOLS ORDERABLE S Edited Result - Final Performing Organization Address [facility] de Phone Number [facility] [address] [place] [address], [phone] * CULTURE, ROUTINE W/ GRAM STAIN (SMD/SJS/SFL ONLY) (04/13/2022 1:30 PM CDT) SPEC DESCRIPTION KNEE,LEFT 04/13/2022 6:50 PM CDT [facility] SPECIAL REQUESTS NO SPECIAL REQUEST 04/13/2022 6:50 PM CDT [facility] GRAM STAIN RESULT FEW NEUTROPHILS SEEN 04/14/2022 12:28 AM CDT [facility] GRAM STAIN RESULT NO ORGANISMS SEEN 04/14/2022 12:28 AM CDT [facility] CULTURE RESULT NO GROWTH 5 DAYS 04/19/2022 10:05 AM CDT [facility] STRUCTURE OF LEFT KNEE REGION / Unknown 04/13/2022 1:30 PM CDT 04/13/2022 8:57 PM CDT Soledad Lucas MD MICROBIOLOGY - GENERAL ORDERABLE S Final Result Performing Organization Address [facility] de Phone Number [facility] [address] [place] [address], [phone] * Joint Aspiration/Injection (04/13/2022 1:16 PM CDT) [...] Score: 1 09/29/19 22 10:03 AM ZIGZAG ELASTIC ATTACHER documented as of this encounter Care Teams Tool/Die Maker Relationship Specialty Start Date End Date Soledad Lucas MD [address] [address] PCP - General INTERNAL MEDICINE 09/29/21 documented as of this encounter
--- OUTSIDE RECORDS SUMMARY | 2024-08-03 05:05 | XMS_ITS | Encounter Summary ---
Author Organization [facility] Address [address] [place] [address]. [place], [place] [address] [place] [address] Care Team Providers Care Ambulatory Service Representative Name Role Phone Soledad Lucas MD Primary Care Provider [phone] Reason for Referral * Imaging (Routine) - Closed Specialty Diagnoses / Procedures Referred By Prasanth santillan Referred To Contact RADIOLOGY Diagnoses Moderate persistent asthma with acute exacerbation (HHS/HCC) Acute bronchitis, unspecified organism Procedures [place]R [place] [address] [place] [address] Phone: tel: fax: Referral ID Status Reason Start Date Expiration Date Visits Re quested Visits Authorized [id number] Closed 01/07/2022 02/06/2023 1 1 Reason for Visit * Reason Comments Wheezing Back Pain Patient has been cou ghing hard and possibly hurt his back Cough Encounter Details Date Type Department Care Team (Latest Contact Info) Description 01/07/2022 9:40 AM CDT Office Visit [facility] - [place] [address] [address] [place] [address] Soledad Lucas MD [address] [phone] Wheezing ; Back Pain (Patient has been [...] through Care Everywhere. * Asthma in Adults (Japanese) documented in this encounter Progress Notes [...] Cough HPI: Juliet Stout is a 60-year-old -Emirati male who presents for a visit today [...] Tessalon Perles and prednisone but did not fruit or nut picker yet. Patient concerned and decided to [...] 10 tablet 0 ??? vitamin D2, ergocalciferol, 31325 UNITS capsule Take 1 capsule (50,000 Units [...] was at least in part performed using Renrenmoney and there may be some inherent flaws in this sociology research assistant due to the nature of this program. oSledad Lucas MD Internal Medicine [facility], [facility]. documented in this encounter Plan of Treatment Upcoming Encounters Date Type Department Care Team (Late st Contact Info) Description 08/19/2024 9:00 AM STRATEGIC MANAGER Office Visit [facility] - [place] [address] [address] [address] [place] [address] Soledad Lucas MD [address] [place] [address] 12/16/2024 10:40 AM CDT Office Visit [facility] - [address], [address] [place] [address] Ramsey Oakley MD [address] [address] Scheduled Orders Name Type Priority Associated Diagnoses [...] Group A Streptococci 01/08/2022 7:33 PM CDT -[facility] STRUCTURE OF ANTERIOR PORTION OF NECK / Unknown 01/07/2022 11:09 AM CDT Soledad Lucas MD MICROBIOLOGY - GENERAL ORDERABLE S Final Result [facility] [address] [place] [address], [place] [phone] * RAPID STREP A (01/07/2022) RAPID STREP TEST NEGATIVE NEGATIVE MG[id number], [place] Internal Control: VALID VALID [id number], [place] STRUCTURE OF ANTERIOR PORTION OF NECK / Unknown 01/07/2022 Soledad Lucas MD MICROBIOLOGY - GENERAL ORDERABLE S Final Result [id number], [place] [address] [place] [address], documented in this encounter Visit Diagnoses Diagnosis [...] Depression Total Score: 1 09/29/19 10:03 AM STRATEGIC MANAGER documented as of this encounter Care Teams Ambulatory Service Representative Relationship Specialty Start Date End Date Soledad Lucas MD [address] [facility] [address] [place] [address] PCP - General INTERNAL MEDICINE 09/29/21 documented as of this encounter
--- OUTSIDE RECORDS SUMMARY | 2024-08-03 05:05 | XMS_ITS | Encounter Summary ---
Author Organization [facility] - [facility] Address [address] [place] [address]. [address] [address] Care Team Providers Care Automotive Glass Technician Name Role Phone Soledad Lucas MD Primary Care Provider [phone] Reason for Visit * Reason Onset Date Comments Reschedule 03/16/2022 Encounter Details Date Type Department Care Team (Late st Contact Info) Description 03/16/2022 Telephone [facility] Care - [place] [address] [address] [address] [place] [address] Soledad Lucas MD [address] [place] [address] [address] [place], [place] [phone] Reschedule Social History Tobacco Use Types Packs/Day [...] st Contact Info) Description 08/19/2024 9:00 AM AIRCRAFT MACHINIST [facility] - [place] [address] [address] [address] [place] [address] [place] [address] [place] [address] 12/16/2024 10:40 AM CDT [facility] - [facility] [address] [facility] [address] [place] [address] Ramsey Oakley MD [address] [facility] [address] [place] [address] documented as of this encounter Visit Diagnoses Not on filedocumented in this encounter Additional Health Concerns Assessment Noted Time PHQ-9 Depression Total Score: 1 09/29/19 22 10:03 AM AIRCRAFT MACHINIST documented as of this encounter Care Teams Automotive Glass Technician Relationship Specialty Start Date End Date Soledad Lucas MD 1188 [facility] [address] [place] [address] PCP - General INTERNAL MEDICINE 09/29/21 documented as of this encounter
--- OUTSIDE RECORDS SUMMARY | 2024-08-03 05:05 | XMS_ITS | Encounter Summary ---
Author Organization [facility] - [facility] Address [address] [place] [address]. [place], [place] [address] [place] [address] Care Team Providers Care Professor Of Surgery Name Role Phone Soledad Lucas MD Primary Care Provider [phone] Reason for Visit * Reason Onset Date Comments Follow Up Call 04/13/2022 Encounter Details Date Type Department Care Team (Late st Contact Info) Description 04/13/2022 Telephone [facility] Care - [place] [address] [address] [address] [place] [address] Soledad Lucas MD [address] [place] [address] 157 [place] [address] Follow Up Call Social History [...] st Contact Info) Description 08/19/2024 9:00 AM DRAFTING TECHNICIAN [facility] - [place] [address] [address] [address] [place] [address] Soledad Lucas MD [address] [place] [address] 12/16/2024 10:40 AM CDT [facility] - [facility] 3 [facility] [address] [place] [address] Ramsey Oakley MD 3 [facility] [address] [place] [address] documented as of this encounter Visit Diagnoses Not on filedocumented in this encounter Additional Health Concerns Assessment Noted Time PHQ-9 Depression Total Score: 1 09/29/19 22 10:03 AM DRAFTING TECHNICIAN documented as of this encounter Care Teams Professor Of Surgery Relationship Specialty Start Date End Date Soledad Lucas MD [address] [place] [address] PCP - General INTERNAL MEDICINE 09/29/21 documented as of this encounter
--- OUTSIDE RECORDS SUMMARY | 2024-08-03 05:05 | XMS_ITS | Encounter Summary ---
Author Organization [facility] Address [address] [place] [address]. [place], [place] [address] [place] [address] Care Team Providers Care Scarf Gluer Name Role Phone Soledad Lucas MD Primary Care Provider [phone] Encounter Details Date Type Department Care Team [...] Contact Info) Description 08/19/2024 9:00 AM ICE CREAM FREEZER HELPER Office Visit [facility] Mult[facility]pecialty Care - [place] [address] [address] [place] [address] Soledad Lucas MD [address] [place] [address] [address] [place] [address] 12/16/2024 10:40 AM CDT Office Visit [facility] - [facility] 3 [facility] [address] [place] [address] Ramsey Oakley MD 3 [facility] [address] [place] [address] documented as of this encounter Visit Diagnoses Not on filedocumented in this encounter Additional Health Concerns Assessment Noted Time PHQ-9 Depression Total Score: 1 09/29/19 22 10:03 AM ICE CREAM FREEZER HELPER documented as of this encounter Care Teams Scarf Gluer Relationship Specialty Start Date End Date Soledad Lucas MD [address] [address] PCP - General INTERNAL MEDICINE 09/29/21 documented as of this encounter
--- OUTSIDE RECORDS SUMMARY | 2024-08-03 05:05 | XMS_ITS | Encounter Summary ---
Author Organization [facility] - [facility] Address [address] [place] [address]. [place] [address] Care Team Providers Care Forepart Laster Name Role Phone Soledad Lucas MD Primary Care Provider [phone] Reason for Visit * Reason Comments Back Pain Knee Pain Left > right Med Refills Percocet Encounter Details Date Type Department Care Team (Latest Contact Info) Description 05/03/2022 9:00 AM CDT Office Visit [facility] Mult[facility]pecialty Care - [place] [address] [address] [address] [place] [address] Soledad Lucas MD [address] [place] [address] Back Pain; Knee Pain (Left > right); [...] sent through Care Everywhere. * Back Exercises (Macedonian) documented in this encounter Progress Notes * [...] was at least in part performed using Cartour speak and there may be some inherent flaws in this shoddy mill worker due to the nature of this program. Soledad Lucas MD Internal Medicine [facility], [facility]. documented in this encounter Plan of Treatment Upcoming Encounters Date Type Department Care Team (Late st Contact Info) Description 08/19/2024 9:00 AM WAGON WINDER Office Visit [facility] - [place] [address] [address] [address] [place] [address] Soledad Lucas MD [address] [place] [address] 157 [place] [address] 12/16/2024 10:40 AM CDT Office Visit [facility] - [facility] [address] [facility] [address] [place] [phone] Ramsey Oakley MD [address] [facility] [address] [place] [address] documented as of this encounter Procedures Procedure Name Priority Date/Time Associated Diagnosis Comments DRUG MONITORING, PANEL 5, WITH CONFIRMATION (U) Routine 05/03/2022 9:48 AM CDT Drug therapy documented in this encounter Results * (ABNORMAL) DRUG MONITORING, PANEL 5, WITH CONFIRMATION (U) (05/03/2022 9:48 AM CDT) [facility] AMPHETAMINES PM NEGATIVE <500 ng/mL [facility] BARBITURATES PM (U) NEGATIVE <300 ng/mL [facility] BENZODIAZEPINES PM (U) NEGATIVE <100 ng/mL [facility] [place] COCAINE METABOLITE PM (U) NEGATIVE <150 ng/mL [facility] [place] MARIJUANA METABOLITE PM (U) POSITIVE(A) <20 ng/mL [facility] [place] MARIJUANA METABOLITE PM CONF (U) 1,455(H) <5 ng/mL [facility] [place] MARIJUANA COMMENTS [facility] [place] Comment:See Marijuana Notes, LDT Notes METHADONE PM (U) NEGATIVE <100 ng/mL [facility] [place] OPIATES PM (U) NEGATIVE <100 ng/mL [facility] [place] OXYCODONE PM (U) POSITIVE(A) <100 ng/mL [facility] [place] NOROXYCODONE PM (U) 113(H) <50 ng/mL [facility] [place] OXYCODONE PM (U) NEGATIVE <50 ng/mL [facility] [place] OXYMORPHONE PM (U) 117(H) <50 ng/mL [facility] [place] OXYCODONE COMMENTS [facility] [place] Comment:See Oxycodone Notes, LDT Notes CREATININE RANDOM URINE 97.6 > or = 20.0 mg/dL [facility] [place] pH PM (U) 7.5 4.5 - 9.0 [facility] [place] OXIDANT NEGATIVE <200 mcg/mL [facility] [place] [facility] Note [facility] Comment: This drug testing is for medical [...] analytical performance characteristics have been determined by [facility]. It has not been cleared or approved by the FDA. This assay has been validated pursuant to the CLIA regulations and is used for clinical purposes. Healthcare Providers needing Interpretation assistance, please contact us at [phone] ( ) M-F, 8am to 10pm EST 05/03/2022 9:48 AM CDT 05/04/2022 5:00 AM CDT Soledad Lucas MD LABORATORY Final Result [facility] [address] [place] [address] [facility] [address] [place] [address] documented in this encounter Visit Diagnoses Diagnosis [...] Once, 1 dose, On Mon05/03/22 at 0945, [facility] WellIndications:Chronic right-sided low back pain without sciatica Given 05/03/2022 9:30 AM CDT 40 mg L eft Deltoid documented in this encounter Additional Health Concerns Assessment Noted Time PHQ-9 Depression Total Score: 1 09/29/19 10:03 AM WAGON WINDER documented as of this encounter Care Teams Forepart Laster Relationship Specialty Start Date End Date Soledad Lucas MD [address] [address] PCP - General INTERNAL MEDICINE 09/29/21 documented as of this encounter
--- OUTSIDE RECORDS SUMMARY | 2024-08-03 05:05 | XMS_ITS | Encounter Summary ---
Author Organization [facility] - [facility] Address [address] [place] [address]. [address] [address] Care Team Providers Care Inside Sales Recruiter Name Role Phone Soledad Lucas MD Primary Care Provider [phone] Reason for Visit * Reason Onset Date Comments Returned Call 10/29/2021 Encounter Details Date Type Department Care Team (Late st Contact Info) Description 10/29/2021 Telephone [facility] Multispecialty Care - [place] [address] [address] [place] [address] Soledad Lucas MD [address] [place] [address] [address] [place] [address] Returned Call Social History Tobacco [...] st Contact Info) Description 08/19/2024 9:00 AM SLEEP LAB TECHNICIAN [facility] - [address] [place] [address] Soledad Lucas MD [address] [place] [address] 12/16/2024 10:40 AM CDT Office Visit [facility] [address] [facility] [place] [address] Ramsey Oakley MD 3 [facility] [address] [place] [address] documented as of this encounter Visit Diagnoses Not on filedocumented in this encounter Additional Health Concerns Assessment Noted Time PHQ-9 Depression Total Score: 1 09/29/19 22 10:03 AM SLEEP LAB TECHNICIAN documented as of this encounter Care Teams Inside Sales Recruiter Relationship Specialty Start Date End Date Soledad Lucas MD [address] [place] [address] PCP - General INTERNAL MEDICINE 09/29/21 documented as of this encounter
--- OUTSIDE RECORDS SUMMARY | 2024-08-03 05:05 | XMS_ITS | Encounter Summary ---
Author Organization [facility] - [facility] Address [address] [place] [address]. [place], [place] [address] [place] [address] Care Team Providers Care Paperhanger And Painter Name Role Phone Soledad Lucas MD Primary Care Provider [phone] Reason for Visit * Reason Onset Date Comments Reschedule 02/25/2022 Encounter Details Date Type Department Care Team (Late st Contact Info) Description 02/25/2022 Telephone [facility] Multispecialty Care - [place] [address] [address] [place] [address] Soledad Lucas MD [address] [place] [address] 157 [place], [place] [phone] Reschedule Social History Tobacco Use Types Packs/Day [...] st Contact Info) Description 08/19/2024 9:00 AM ELEVATOR MECHANIC [facility] [place] [address] [address] [place] [address] Soledad Lucas MD [address] [place] [address] 12/16/2024 10:40 AM CDT [facility] 3 [facility] [place] [address] Ramsey Oakley MD 3 [facility] [address] [place] [address] documented as of this encounter Visit Diagnoses Not on filedocumented in this encounter Additional Health Concerns Assessment Noted Time PHQ-9 Depression Total Score: 1 09/29/19 10:03 AM ELEVATOR MECHANIC documented as of this encounter Care Teams Paperhanger And Painter Relationship Specialty Start Date End Date Soledad uLcas MD [address] [place] [address] PCP - General INTERNAL MEDICINE 09/29/21 documented as of this encounter
--- OUTSIDE RECORDS SUMMARY | 2024-08-03 05:05 | XMS_ITS | Encounter Summary ---
Author Organization [facility] - [facility] Address [address] [place] [address]. [address] [address] Care Team Providers Care Legal Secretary Name Role Phone Soledad Lucas MD Primary Care Provider [phone] Reason for Visit * Reason Onset Date Comments Question 01/10/2022 Encounter Details Date Type Department Care Team (Late st Contact Info) Description 01/10/2022 Telephone [facility] Multispecialty Care - [place] [address] [address] [place] [address] Soledad Lucas MD [address] [place] [address] 157 [place] [address] Question Social History Tobacco Use [...] Faxing over order for Nebulizer DME to [place] [facility]. * Stewart Lemus - 01/10/2022 8:57 AM CDT Patient called and stated that he needs a prescription for a machine for a nebulizer. He would likefor you to call him as soon as you can to discuss. documented in this encounter Plan of Treatment Upcoming Encounters Date Type Department Care Team (Late st Contact Info) Description 08/19/2024 9:00 AM SOCIAL WORKER AIDE Office [facility] - [place] [address] [address] [place] [address] Soledad Lucas MD [address] [place] [address] 12/16/2024 10:40 AM CDT Office Visit [facility] [address] [facility] [place] [address] Ramsey Oakley MD 3 [facility] [address] [place] [address] documented as of this encounter Visit Diagnoses Diagnosis Moderate persistent asthma with acute exacerbation ([facility]) Acute bronchitis, unspecified organism documented in this encounter Additional Health Concerns Assessment Noted Time PHQ-9 Depression Total Score: 1 09/29/19 22 10:03 AM SOCIAL WORKER AIDE documented as of this encounter Care Teams Legal Secretary Relationship Specialty Start Date End Date Soledad Lucas MD [address] [place] [address] PCP - General INTERNAL MEDICINE 09/29/21 documented as of this encounter
--- OUTSIDE RECORDS SUMMARY | 2024-08-03 05:05 | XMS_ITS | Encounter Summary ---
Author Organization [facility] - [facility] Address [address] [place] [address]. [place], [place] [address] [place] [address] Care Team Providers Care Mid Level Practitioner Name Role Phone Soledad Lucas MD Primary Care Provider Reason for Visit * Reason Onset Date Comments Follow Up Call 02/08/2022 Encounter Details Date Type Department Care Team (Late st Contact Info) Description 02/08/2022 Telephone [facility] Mult[facility]pecialty Care - [place] [address] [address] [place] [address] Soledad Lucas MD [address] [place] [address] 157 [place] [address] Follow Up Call Social History [...] that visit. Soledad Lucas MD Internal Medicine [facility], [facility]. documented in this encounter Plan of Treatment Upcoming Encounters Date Type Department Care Team (Late st Contact Info) Description 08/19/2024 9:00 AM AIRCRAFT ASSEMBLER [facility] [place] [address] [address] [place] [address] Soledad Lucas MD [address] [address] 12/16/2024 10:40 AM CDT [facility] - [facility] 3 [facility] [address] [place] [phone] Ramsey Oakley MD 3 [facility] [address] [place] [address] documented as of this encounter Visit Diagnoses Not on filedocumented in this encounter Additional Health Concerns Assessment Noted Time PHQ-9 Depression Total Score: 1 09/29/19 22 10:03 AM AIRCRAFT ASSEMBLER documented as of this encounter Care Teams Mid Level Practitioner Relationship Specialty Start Date End Date Soledad Lucas MD [address] [place] [address] PCP - General INTERNAL MEDICINE 09/29/21 documented as of this encounter
--- OUTSIDE RECORDS SUMMARY | 2024-08-03 05:05 | XMS_ITS | Encounter Summary ---
Author Organization [facility] Address [address] [place] [address]. [place], [place] [address] [place] [address] Care Team Providers Care Java Grails Developer Name Role Phone Soledad Lucas MD Primary Care Provider [phone] Reason for Referral * Procedure (Routine) - Closed Specialty Diagnoses / Procedures Referred By Contac t Referred To Contact Diagnoses Mild intermittent asthma without complication (HHS/HCC) Procedures Complete PFT (pre/post [place], Lung Vol, Diff Capacity) (48398, 75782, 46026, 56043) Soledad Lucas MD [address] [place] [address] Phone: tel: fax: Referral ID Status Reason Start Date Expiration Date Visits Re quested Visits Authorized [id number] Closed 11/01/2021 12/02/2022 1 1 Reason for Visit * Procedure (Routine) - Closed Specialty Diagnoses / Procedures Referred By Prasanth santillan Referred To Contact Diagnoses Mild intermittent asthma without complication (HHS/HCC) Procedures Complete PFT (pre/post [place], Lung Vol, Diff Capacity) (79339, 27379, 59632, 84736) Soledad Lucas MD [address] [address] Phone: tel: fax: Referral ID Status Reason Start Date Expiration Date Visits Re quested Visits Authorized [id number] Closed 11/01/2021 12/02/2022 1 1 Encounter Details Date Type Department Care Team (Latest Contact Info) Description 11/09/2021 8:51 AM CDT - 11/09/2021 11:59 PM CDT Hospital Encounter [facility] [place] [address] Soledad Lucas MD 1181 [facility] [address] [place] [address] Discharge Disposition: Home or Self Care (Routine Discharge) Social History Tobacco Use Types Packs/Day Years Used Date Smoking Tobacco: Never Smokeless Tobacco: Never Comments:counsled by Dr Alcaal e Alcohol Use Standard Drinks/Week Comments Yes [...] tablet 3 09/30/2021 2 vitamin D2, ergocalciferol, 18534 UNITS capsuleIndications:V itamin D deficiency Take 1 capsule (50,000 Units total) by mouth weekly. 12 capsule 1 09/29/2021 3 documented as of this encounter Plan of Treatment Upcoming Encounters Date Type Department Care Team (Late st Contact Info) Description 08/19/2024 9:00 AM IMMUNOLOGY TEACHER [facility] [place] [address] [address] [place] [address] Soledad Lucas MD [address] [place] [address] [address] [place] [address] 12/16/2024 10:40 AM CDT Office Visit [facility] - [facility] [address] [facility] [address] [place] [phone] Ramsey Oakley MD [address] [facility] [address] [place] [address] documented as of this encounter Procedures Procedure Name Priority Date/Time Associated Diagnosis Comments PULMONARY FUNCTION TEST Routine 11/09/2021 12:00 AM CDT Mild intermittent asthma without complication (HHS/HCC) documented in this encounter Results * Complete PFT (pre/post [place], Lung Vol, Diff Capacity) (18399, 01823, 41625, 25546) (11/09/2021 12:00 AM CDT) 11/09/2021 Narrative ESCRIPTION [...] within normal limits. D: ??11/17/2021 02:14 PM #[id number] T: ??11/17/2021 04:46 PM /NTS Procedure Note [...] limits. 4. Unadjusted DLCO within normal limits. #[id number] /NTS Soledad Lucas MD PFT ORDERABLES Edited [...] Total Score: 1 09/29/19 22 10:03 AM IMMUNOLOGY TEACHER documented as of this encounter Care Teams Java Grails Developer Relationship Specialty Start Date End Date Soledad Lucas MD 1188 [facility] [address] [place] [address] PCP - General INTERNAL MEDICINE 09/29/21 documented as of this encounter
--- OUTSIDE RECORDS SUMMARY | 2024-08-03 05:05 | XMS_ITS | Encounter Summary ---
Author Organization [facility] Address [address] [place] [address]. [place], [place] [address] [place] [address] Care Team Providers Care Motorboat Operator Name Role Phone Soledad Lucas MD Primary Care Provider [phone] Encounter Details Date Type Department Care Team [...] st Contact Info) Description 08/19/2024 9:00 AM SLOOP CAPTAIN Office Visit [facility] Medical Group Multispecialty Care - [place] [address] [address] [place] [address] Soledad Lucas MD [address] [place] [address] [address] [place] [address] 12/16/2024 10:40 AM CDT Office Visit [facility] Medical Group Multispecialty Care - [facility] [address] [facility] [place] [address] Ramsey Oakley MD [address] [facility] [address] [place] [address] documented as of this encounter Visit Diagnoses Not on filedocumented in this encounter Additional Health Concerns Assessment Noted Time PHQ-9 Depression Total Score: 1 09/29/19 22 10:03 AM SLOOP CAPTAIN documented as of this encounter Care Teams Motorboat Operator Relationship Specialty Start Date End Date Soledad Lucas MD [address] [address] PCP - General INTERNAL MEDICINE 09/29/21 documented as of this encounter
--- OUTSIDE RECORDS SUMMARY | 2024-08-03 05:05 | XMS_ITS | Encounter Summary ---
Author Organization [facility] Address [address] [place] [address]. 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 Procedures OFFICE/OUTPT VISIT,NEW,LEVL III OFFICE/OUTPT VISIT,NEW,LEVL IV OFFICE/OUTPT VISIT,NEW,LEVL V OFFICE/OUTPT VISIT,EST,LEVL III OFFICE/OUTPT VISIT,EST,LEVL IV OFFICE/OUTPT VISIT,EST,LEVL V Soledad Lucas MD 1188 [facility] [address] [place] [address] Phone: tel: fax: [facility] Physical Therapy [address] [place] [address] Phone: tel: fax: Referral ID Status Reason Start Date Expiration Date V isits Requested Visits Authorized [id number] Closed Physical Therapy 04/06/2022 05/06/2023 10 10 Encounter Details Date Type Department Care Team (Late st Contact Info) Description 05/06/2022 8:30 AM CDT Office Visit [facility] Physical Therapy [address] [place] [address] Soledad Lucas MD 118[address] [facility] [address] [place] [address] Jensen Segura, [place] [address] Initial Evaluation Social History Tobacco Use Types [...] Coronavirus/COVID-19? No / Unsure 08/29/2022 10:33 AM FAMILY ASSISTANT documented as of this encounter Patient Instructions * Patient Instructions* Jensen Segura, PT - 05/06/2022 8:30 AM CDT Access Code: [email or web address] URL: [email or web address] Date: 05/06/2022 Prepared by: Jensen Segura Exercises [...] education on evaluation findings and plan of snf Modality Education: Heat for 15-20 minutes prn [...] st Contact Info) Description 08/19/2024 9:00 AM FAMILY ASSISTANT [facility] [place] [address] [address] [place] [address] Soledad Lucas MD [address] [place] [address] [address] [place] [address] 12/16/2024 10:40 AM CDT Office Visit [facility] [address] [facility] [place] [address] Ramsey Oakley MD [address] [facility] [address] [place] [address] documented as of this encounter Visit Diagnoses Diagnosis Chronic bilateral low back pain with left-sided sciatica- Primary Degenerative disc disease, lumbar Degeneration of lumbar or lumbosacral intervertebral disc Decreased ROM of trunk and back documented in this encounter Additional Health Concerns Infection Onset Date Last Indicated Resolved Time COVID-19 Rule Out 06/13/2022 06/13/2022 06/13/2022 2:50 PM FAMILY ASSISTANT COVID-19 Rule Out 06/13/2022 06/13/2022 06/14/2022 1:24 PM FAMILY ASSISTANT COVID-19 Rule Out 07/06/2022 07/06/2022 07/06/2022 3:14 PM FAMILY ASSISTANT COVID-19 Rule Out 07/06/2022 07/06/2022 07/08/2022 1:45 AM FAMILY ASSISTANT Assessment Noted Time PHQ-9 Depression Total Score: 1 09/29/19 22 10:03 AM FAMILY ASSISTANT documented as of this encounter Care Teams Mill And Coal Transport Operator Relationship Specialty Start Date End Date Soledad Lucas MD [address] [address] PCP - General INTERNAL MEDICINE 09/29/21 documented as of this encounter
--- OUTSIDE RECORDS SUMMARY | 2024-08-03 05:05 | XMS_ITS | Encounter Summary ---
Author Organization [facility] Address [address] [place] [address]. [place], [place] [address] [place] [address] Care Team Providers Care Heavy Forging Machine Operator Name Role Phone Soledad Lucas MD Primary Care Provider [phone] Encounter Details Date Type Department Care Team [...] st Contact Info) Description 08/19/2024 9:00 AM PHP LAMP DEVELOPER Office Visit [facility] Medical Group Multispecialty Care - [place] [address] [address] [place] [address] Soledad Lucas MD [address] [place] [address] [address] [place] [address] 12/16/2024 10:40 AM CDT Office Visit [facility] Medical Group Multispecialty Care - [facility] [address] [facility] [place] [address] Ramsey Oakley MD [address] [facility] [address] [place] [address] documented as of this encounter Visit Diagnoses Not on filedocumented in this encounter Additional Health Concerns Assessment Noted Time PHQ-9 Depression Total Score: 1 09/29/19 22 10:03 AM PHP LAMP DEVELOPER documented as of this encounter Care Teams Heavy Forging Machine Operator Relationship Specialty Start Date End Date Soledad Lucas MD [address] [address] PCP - General INTERNAL MEDICINE 09/29/21 documented as of this encounter
--- OUTSIDE RECORDS SUMMARY | 2024-08-03 05:05 | XMS_ITS | Encounter Summary ---
Author Organization [facility] - [facility] Address [address] [place] [address]. [address] [address] Care Team Providers Care Chainstitch Seat Joiner Name Role Phone Soledad Lucas MD Primary Care Provider [phone] Reason for Visit * Reason Onset Date Comments Medication 03/31/2022 Encounter Details Date Type Department Care Team (Late st Contact Info) Description 03/31/2022 Telephone [facility] Medical Group Multispecialty Care - [address] [place] [address] Soledad Lucas MD [address] [place] [address] 157 [place] [address] Medication Social History Tobacco Use [...] Contact Info) Description 08/19/2024 9:00 AM ASSEMBLER WATCH TRAIN [facility] - [address] [place] [address] Soledad Lucas MD [address] [address] 12/16/2024 10:40 AM CDT [facility] [address] [facility] [place] [address] Ramsey Oakley MD 3 [facility] [address] [place] [address] documented as of this encounter Visit Diagnoses Diagnosis Primary osteoarthritis of right knee Primary localized osteoarthrosis, lower leg documented in this encounter Additional Health Concerns Assessment Noted Time PHQ-9 Depression Total Score: 1 09/29/19 10:03 AM ASSEMBLER WATCH TRAIN documented as of this encounter Care Teams Chainstitch Seat Joiner Relationship Specialty [place] [address] [place] [address] PCP - General INTERNAL MEDICINE 09/29/21 documented as of this encounter
--- OUTSIDE RECORDS SUMMARY | 2024-08-03 05:05 | XMS_ITS | Encounter Summary ---
Author Organization [facility] Address [address] [place] [address]. [address] [address] Care Team Providers Care Tray Checker Name Role Phone Soledad Lucas MD Primary Care Provider [phone] Encounter Details Date Type Department Care Team (Late st Contact Info) Description 04/13/2022 Orders Only [facility] Medical Group Multispecialty Care - [place] [address] [address] [place], [place] [address] Soledad Lucas MD [address] [place] [address] [address] [place] [address] Social History Tobacco Use Types [...] st Contact Info) Description 08/19/2024 9:00 AM PLACEMENT MANAGER Office Visit [facility] Medical [facility] Multispecialty Care - [place] [address] [place] [address] [address] [place] [address] Soledad Lucas MD 1188 [facility] [address] [place] [address] 12/16/2024 10:40 AM CDT Office Visit [facility] Medical [facility] Multispecialty Care - [facility] [address] [place] [address] Ramsey Oakley MD [address] [facility] [address] [place] [address] documented as of this encounter Procedures Procedure [...] SPEC DESCRIPTION KNEE,LEFT 04/13/2022 6:50 PM CDT [facility] SPECIAL REQUESTS NO SPECIAL REQUEST 04/13/2022 6:50 PM CDT [facility] GRAM STAIN RESULT FEW NEUTROPHILS SEEN 04/14/2022 12:28 AM CDT [facility] GRAM STAIN RESULT NO ORGANISMS SEEN 04/14/2022 12:28 AM CDT [facility] CULTURE RESULT NO GROWTH 5 DAYS 04/19/2022 10:05 AM CDT [facility] STRUCTURE OF LEFT KNEE REGION / Unknown 04/13/2022 1:30 PM CDT 04/13/2022 8:57 PM CDT us Soledad Lucas MD MICROBIOLOGY - GENERAL ORDERABLE S Final Result [facility] [address] [place] [address], [place] [phone] [id number] * CELL COUNT W/ DIFF BODY FLUID (04/13/2022 1:30 PM CDT) SOURCE (FLUID) KNEE,LEFT 04/13/2022 9:29 PM CDT [facility] TOTAL NUCLEATED CELL COUNT 0.065 x10'3/uL 04/13/2022 10:05 PM CDT [facility] Comment:ADJUSTED FOR NUCLEAT ED RBC'S RBC (FLUID) 0.001 x10'6/uL 04/13/2022 9:29 PM CDT [facility] Comment:REFERENCE RANGE NOT ESTABLISHED DIFFERENTIAL MANUAL DIFFERENTIAL PERFORMED ON CONCENTRATED CYTOSPIN 04/13/2022 6:50 PM CDT [facility] CELLS COUNTED 100 No COUNTED 04/13/2022 10:09 PM CDT [facility] SEGS (FLUID) 23 % 04/13/2022 10:05 PM CDT [facility] LYMPHS (FLUID) 71 % 04/13/2022 10:05 PM CDT [facility] OTHER MONONUCLEAR CELLS (FLD) 6 04/13/2022 10:05 PM CDT [facility] NRBC 1 % 04/13/2022 10:05 PM CDT [facility] STRUCTURE OF LEFT KNEE REGION / Unknown 04/13/2022 1:30 PM CDT us Sloedad Lucas MD BODY FLUIDS AND STOOLS ORDERABLE S Edited Result - Final [facility] [address] [place] [address], [id number] documented in this encounter Visit Diagnoses Diagnosis Effusion of bursa of left knee documented in this encounter Additional Health Concerns Assessment Noted Time PHQ-9 Depression Total Score: 1 09/29/19 22 10:03 AM PLACEMENT MANAGER documented as of this encounter Care Teams Tray Checker Relationship Specialty Start Date End Date Soledad Lucas MD [facility] [address] [address] PCP - General INTERNAL MEDICINE 09/29/21 documented as of this encounter
--- OUTSIDE RECORDS SUMMARY | 2024-08-03 05:05 | XMS_ITS | Encounter Summary ---
Author Organization [facility] Address [address] [place] [address]. [address] [address] Care Team Providers Care Surgical Lead Name Role Phone Soledad Lucas MD Primary Care Provider [phone] Reason for Referral * (Routine) - Closed Specialty Diagnoses / Procedures Referred By Prasanth santillan Referred To Contact Diagnoses Effusion of left knee Procedures Arthrocentesis Soledad Lucas MD [address] [place] [address] Phone: tel: fax: Referral ID Status Reason Start Date Expiration Date Visits Re quested Visits Authorized [id number] Closed 12/08/2021 01/08/2023 1 1 Reason for Visit * Reason Comments Follow Up patient would like t o have his left knee drained Encounter Details Date Type Department Care Team (Latest Contact Info) Description 12/08/2021 10:20 AM CDT Office Visit [facility] Medical Group Multispecialty Care - [place] [address] [address] [place], [place] [address] Soledad Lucas MD [address] [place] [phone] Follow Up ( patient would like to [...] drained) HPI: Juliet Stout is a 60-year-old -[place] male who presents for follow- up to [...] 60 tablet 3 ??? vitamin D2, ergocalciferol, 26451 UNITS capsule Take 1 capsule (50,000 Units [...] was at least in part performed using [employer] and there may be some inherent flaws in this candy decorator due to the nature of this program. Soledad Lucas MD Internal Medicine [facility], [facility]. documented in this encounter Plan of Treatment Upcoming Encounters Date Type Department Care Team (Late st Contact Info) Description 08/19/2024 9:00 AM PATIENT RELATIONS DIRECTOR Office Visit [facility] - [place] [address] [address] [place] [address] Soledad Lucas MD [address] [place] [address] 12/16/2024 10:40 AM CDT [facility] [address] [facility] [place] [address] Ramsey Oakley MD 3 [facility] [address] [place] [address] Scheduled Orders Name Type Priority Associated Diagnoses [...] Depression Total Score: 1 09/29/19 10:03 AM PATIENT RELATIONS DIRECTOR documented as of this encounter Care Teams Surgical Lead Relationship Specialty Start Date End Date Soledad Lucas MD [address] [address] PCP - General INTERNAL MEDICINE 09/29/21 documented as of this encounter
--- OUTSIDE RECORDS SUMMARY | 2024-08-03 05:05 | XMS_ITS | Encounter Summary ---
Author Organization [facility] Address [address] [place] [address]. [place], [place] [address] [place] [address] Care Team Providers Care Manager Medical Affairs Name Role Phone Soledad Lucas MD Primary Care Provider [phone] Encounter Details Date Type Department Care Team [...] st Contact Info) Description 08/19/2024 9:00 AM MANAGER OF TRAINING Office Visit [facility] Medical [facility] Multispecialty Care - [place] [address] [address] [place] [address] Soledad Lucas MD [address] [place] [address] [address] [place] [address] 12/16/2024 10:40 AM CDT Office Visit [facility] Medical [facility] Multispecialty Care - [facility] [address] [facility] [place] [address] Ramsey Oakley MD 3 [facility] [address] [place] [address] documented as of this encounter Visit Diagnoses Not on filedocumented in this encounter Additional Health Concerns Assessment Noted Time PHQ-9 Depression Total Score: 1 09/29/19 22 10:03 AM MANAGER OF TRAINING documented as of this encounter Care Teams Manager Medical Affairs Relationship Specialty Start Date End Date Soledad Lucas MD [address] [address] PCP - General INTERNAL MEDICINE 09/29/21 documented as of this encounter
--- OUTSIDE RECORDS SUMMARY | 2024-08-03 05:06 | XMS_ITS | Encounter Summary ---
Author Organization [facility] Address [address] [place] [address]. [place], [place] [address] [place] [address] Care Team Providers Care Photoengraving Proofer Name Role Phone Soledad Lucas MD Primary [...] Coronavirus/COVID-19? No / Unsure 10/06/2021 1:31 PM AIR CREW SUPERVISOR documented as of this encounter Plan of Treatment Upcoming Encounters Date Type Department Care Team (Late st Contact Info) Description 08/19/2024 9:00 AM AIR CREW SUPERVISOR Office Visit [facility] Medical Group Multispecialty Care - [place] [address] [address] [place] [address] Soledad Lucas MD [address] [place] [address] [address] [place] [address] 12/16/2024 10:40 AM CDT Office Visit [facility] Medical Group Multispecialty Care - [facility] [address] [facility] [place] [address] Ramsey Oakley MD [address] [facility] [address] [place] [address] documented as of this encounter Visit Diagnoses Not on filedocumented in this encounter Additional Health Concerns Assessment Noted Time PHQ-9 Depression Total Score: 1 09/29/19 10:03 AM AIR CREW SUPERVISOR documented as of this encounter Care Teams Photoengraving Proofer Relationship Specialty Start Date End Date Soledad Lucas MD [address] [address] PCP - General INTERNAL MEDICINE 09/29/21 documented as of this encounter
--- OUTSIDE RECORDS SUMMARY | 2024-08-03 05:06 | XMS_ITS | Encounter Summary ---
Author Organization [facility] Address [address] [place] [address]. [place], [place] [address] [place] [address] Care Team Providers Care Windows Administrator Name Role Phone Soledad Lucas MD Primary Care Provider [phone] Encounter Details Date Type Department Care Team [...] Coronavirus/COVID-19? No / Unsure 10/13/2021 9:45 AM COLLECTIONS AND ARCHIVES DIRECTOR documented as of this encounter Plan of Treatment Upcoming Encounters Date Type Department Care Team (Late st Contact Info) Description 08/19/2024 9:00 AM COLLECTIONS AND ARCHIVES DIRECTOR Office Visit [facility] Medical Group Multispecialty Care - [place] [address] [address] [place] [address] Soledad Lucas MD [address] [place] [address] [address] [place] [address] 12/16/2024 10:40 AM CDT Office Visit [facility] Medical Group Multispecialty Care - [facility] [address] [facility] [place] [address] Ramsey Oakley MD 3 [facility] [address] [place] [address] documented as of this encounter Visit Diagnoses Not on filedocumented in this encounter Additional Health Concerns Assessment Noted Time PHQ-9 Depression Total Score: 1 09/29/19 10:03 AM COLLECTIONS AND ARCHIVES DIRECTOR documented as of this encounter Care Teams Windows Administrator Relationship Specialty Start Date End Date Soledad Lucas MD [address] [address] PCP - General INTERNAL MEDICINE 09/29/21 documented as of this encounter
--- OUTSIDE RECORDS SUMMARY | 2024-08-03 05:06 | XMS_ITS | Encounter Summary ---
Author Organization [facility] Address [address] [place] [address]. [address] [address] Care Team Providers Care Sales Representative [employer] Name Role Phone Soledad Lucas MD Primary Care Provider [phone] Reason for Referral * Imaging (Routine) - Closed Specialty Diagnoses / Procedures Referred By Prasanth santillan Referred To Contact RADIOLOGY Diagnoses Chronic neck pain Procedures XR CERV SPINE AP+LAT 2V Soledad Lucas MD [address] [address] Phone: tel: fax: Referral ID Status Reason Start Date Expiration Date Visits Re quested Visits Authorized [id number] Closed 10/13/2021 11/13/2022 1 1 R GOODS MACHINE OPERATOR * Imaging (Routine) - Closed Specialty Diagnoses / Procedures Referred By Prasanth santillan Referred To Contact RADIOLOGY Diagnoses Left-sided chest pain Procedures NM PHARM NUC STRESS TEST 1DAY Soledad Lucas MD [address] [address] Phone: tel: fax: Referral ID Status Reason Start Date Expiration Date Visits Re quested Visits Authorized [id number] Closed 10/21/2021 12/05/2021 1 1 R GOODS MACHINE OPERATOR Reason for Visit * Reason Comments Follow Up Pt is here to follow up on hypertension, asthma, and chest discomfort. Encounter Details Date Type Department Care Team (Latest Contact Info) Description 10/13/2021 9:40 AM PAPER GOODS MACHINE OPERATOR Office Visit [facility] Multispecialty Care - [address] [place] [address] Soledad Lucas MD 118[address] [facility] [address] [place], [place] [id number] Follow Up (Pt is here to follow [...] Coronavirus/COVID-19? No / Unsure 10/13/2021 9:45 AM PAPER GOODS MACHINE OPERATOR documented as of this encounter Last Filed Vital Signs Vital Sign Reading Time Taken Comments Blood Pressure 97/50 10/13/2021 10:15 AM PAPER GOODS MACHINE OPERATOR Pulse 73 10/13/2021 10:15 AM PAPER GOODS MACHINE OPERATOR Temperature 36.2 ??C (97.1 ??F) 10/13/2021 10:[address] Respiratory Rate 18 10/13/2021 10:15 AM PAPER GOODS MACHINE OPERATOR Oxygen Saturation 100% 10/13/2021 10:15 AM PAPER GOODS MACHINE OPERATOR Inhaled Oxygen Concentration - - Weight 98 kg (216 lb) 10/13/2021 10:15 AM PAPER GOODS MACHINE OPERATOR Height 185.4 cm (6' 1 ) 10/13/2021 10:15 AM PAPER GOODS MACHINE OPERATOR Body Mass Index 28.5 10/13/2021 10:15 AM PAPER GOODS MACHINE OPERATOR documented in this encounter Patient Instructions * Patient Instructions* Soledad Lucas MD - 10/13/2021 9:40 AM PAPER GOODS MACHINE OPERATOR Follow up in 2 months. Patient Education [...] apnea ?? Hormone problems - thyroid disease, Glen Rogers???s syndrome, acromegaly, hyperaldosteronism, and pheochromocytoma ?? Lupus [...] pharmacist about all of your drugs, including nvde-naj-ajhrmok medicines, to see if they may cause [...] a heart attack. Call 911 in the [place] or [place]. The sooner treatment begins, [...] ?? Nosebleed Where can I learn more? [place] [employer] https://www.heart.org/en/health-topics/wysc-erjbc-nonsxcul/snlsuff-tal-gzi-make- rm-azpvre-evei-blood-pressure [place] [employer] https://www.heart.org/en/health-topics/spot-arfcn-tjonivck/kcz-jrif-wxvhl-pressu kb-ul-z-silent-killer/lrzo-cbdp-ctku-ncgmeho-vda-ugau-blood-pressure Centers for Disease Control and Prevention https://www.cdc.gov/bloodpressure/risk_factors.htm NHS Choices https://www.nhs.uk/conditions/nqyu-zvuuk-drbfothk-hypertension/ Last Reviewed Date 2019-10-31 Consumer Information Use [...] or approved for treating a specific patient. [employer] and its affiliates disclaim any warranty or liability relating to this information or the use thereof. The use of this information is governed by the Terms of Use, available at https://www.[employer]/en/solutions/lexicomp/about/aleks Copyright Copyright ?? 2020 [employer] and its affiliates and/or licensors. All rights reserved. R GOODS MACHINE OPERATOR documented in this encounter Progress Notes * Soledad Lucas MD - 10/13/2021 9:40 AM CSTSummary: Follow-up needs Images from the original note were not included. Internal Medicine Outpatient Progress Note CC: Follow Up (Pt is here to follow up on hypertension, asthma, and chest discomfort. ) HPI: Juliet Stout is a 60-year-old -[place] male who presents for follow- up for [...] 60 tablet 3 ??? vitamin D2, ergocalciferol, 28552 UNITS capsule Take 1 capsule (50,000 Units [...] 8 hr tablet M19.042 7. Need for xxlgtijxqu-mcyrdop-ccwguabmb (Tdap) vaccine Z23 V06.1 REQUIRES DIPHTHERIA, TETANUS AND PERTUSSIS VACCINATION [12963] Adacel (Tdap) 8. Refused influenza vaccine Z28.21 [...] the free smart phone apps such as [employer] to help track calories and try to [...] 3 - discontinue meloxicam 7. Need for hncdpzbqvh-fevmowc-nswheothx (Tdap) vaccine - [96857] Adacel (Tdap) 8. Refused influenza vaccine 9. [...] was at least in part performed using Goozzy speak and there may be some inherent flaws in this herb digger due to the nature of this program. Soledad Lucas MD Internal Medicine [facility], [facility]. R GOODS MACHINE OPERATOR documented in this encounter Plan of Treatment Upcoming Encounters Date Type Department Care Team (Late st Contact Info) Description 08/19/2024 9:00 AM PAPER GOODS MACHINE OPERATOR Office Visit [facility] Multispecialty Care - [address] [address] [address] [place] [address] Soledad Lucas MD [address] [place] [address] [address] [place] [address] 12/16/2024 10:40 AM CDT Office Visit [facility] - [address] [place] [address] Ramsey Oakley MD [address] [place] [address] Scheduled Orders Name Type Priority Associated Diagnoses [...] Imaging ? Pat.Name: ??JULIET GRIMM ? Pat.ID: ?[id number] ? St.Date: ?? 10/27/2021 ? Refer.MD: ??Soledad Lucas [id number] Exam Time: 8:05:00 AM ? Study Type:BEN NC HT MUSCLE IMAGE SPECT MULTI Height: ?73in ?Weight: ?216lb ? BSA: ? 2.23 m2 ?Age: ??08/14/1961,60Y ? Sex: ? MALE ?Sonogrphr: Kanchan Patel, FILM REPRODUCER ? Pat. Stat.:Outpatient ? Reason for Study: [...] ?O2 Sat ? 100 % Max RPP ?39267 ? Symptoms and Complications: Terminated safety issues with legs Symptoms ?? Leg fatigue Complications None Stress ECG Interp Sinus tachycardia, VPCs, J point depression Signed 10/27/2021 12:04 PM Jennifer Still M.D. Procedure Note Jennifer Still MD - 10/27/2021 Myocardial Perfusion Imaging Pat.Name: JULIET GRIMM Pat.ID: [id number] .Date: 10/27/2021 Refer.MD: Soledad Lucas [id number] Exam Time: 8:05:00 AM Study Type:BEN W[place] HT MUSCLE IMAGE SPECT MULTI Height: 73in Weight: 216lb BSA: 2.23 m2 Age: 108/14/1961,60Y Sex: MALE Sonogrphr: Kanchan Patel [facility] Pat. Stat.:Outpatient Reason for Study: Chest pain, [...] 188/88 O2 Sat 100 % Max RPP 27924 Symptoms and Complications: Terminated safety issues with [...] Primary osteoarthritis of both hands Need for junogzrjnv-tfmlewv-qkscdhkcb (Tdap) vaccine Need for prophylactic vaccination with combined vpcejkjyyi-hwtbkym-jwuuzgavl (DTP) vaccine Refused influenza vaccine Vaccination not [...] as of this encounter Care Teams Sales Representative [employer] Relationship Specialty Start Date End Date Soledad Lucas MD [address] [id number] PCP - General INTERNAL MEDICINE 09/29/21 documented as of this encounter
--- OUTSIDE RECORDS SUMMARY | 2024-08-03 05:06 | XMS_ITS | Encounter Summary ---
Author Organization [facility] Address [address] [place] [address]. [address] [address] Care Team Providers Care Installer Inspector Final Name Role Phone Soledad Lucas MD Primary Care Provider [phone] Reason for Visit * Reason Onset Date Comments Medication 09/30/2021 Encounter Details Date Type Department Care Team (Late st Contact Info) Description 09/30/2021 Telephone [facility] Multispecialty Care - [address] [place] [address] Soledad Lucas MD [address] [place] [address] [address] [place] [address] Medication Social History Tobacco Use [...] Coronavirus/COVID-19? No / Unsure 09/29/2021 8:43 AM DEVOPS ENGINEER documented as of this encounter Progress Notes * Soledad Lucas MD - 09/30/2021 6:15 AM CST Metformin sent. PS ENGINEER documented in this encounter Plan of Treatment Upcoming Encounters Date Type Department Care Team (Late st Contact Info) Description 08/19/2024 9:00 AM DEVOPS ENGINEER [facility] [address] [place] [address] Soledad Lucas MD 1188 [facility] [address] [place] [address] 12/16/2024 10:40 AM CDT [facility] [address] [facility] [address] [place] [address] Ramsey Oakley MD [address] [facility] [address] [place] [address] documented as of this encounter Visit Diagnoses Diagnosis Prediabetes- Primary Other abnormal glucose documented in this encounter Additional Health Concerns Assessment Noted Time PHQ-9 Depression Total Score: 1 09/29/19 10:03 AM DEVOPS ENGINEER documented as of this encounter Care Teams Installer Inspector Final Relationship Specialty Start Date End Date Soledad Lucas MD [address] [place] [address] [address] [place] [address] PCP - General INTERNAL MEDICINE 09/29/21 documented as of this encounter
--- OUTSIDE RECORDS SUMMARY | 2024-08-03 05:06 | XMS_ITS | Encounter Summary ---
Author Organization [facility] Address [address] [place] [address]. [place], [place] [address] [place] [address] Care Team Providers Care Flexographic Printing Press Operator Name Role Phone Soledad Lucas MD Primary Care Provider [phone] Encounter Details Date Type Department Care Team (Late st Contact Info) Description 10/01/2021 Orders Only [facility] Orth[facility]ty Clinic - [address] [place] [address] Anatoliy Sanz MD [address] [place] [address] Social History Tobacco Use Types Packs/Day Years [...] Coronavirus/COVID-19? No / Unsure 09/29/2021 8:43 AM INPATIENT AUDITOR documented as of this encounter Plan of Treatment Upcoming Encounters Date Type Department Care Team (Late st Contact Info) Description 08/19/2024 9:00 AM INPATIENT AUDITOR Office Visit [facility] Multispecialty Care - [place] [address] [place] [address] [address] [place] [address] Soledad Lucas MD [address] [facility] [address] [place] [address] 12/16/2024 10:40 AM CDT [facility] [address] [facility] [address] [place] [address] Ramsey Oakley MD 3 [facility] [address] [place] [address] documented as of this encounter Results * XR KNEE LT 3V (10/06/2021 1:55 PM INPATIENT AUDITOR) Anatomical Region Laterality Modality Knee Radiographic Liv ging 10/06/2021 2:35 PM INPATIENT AUDITOR Impressions 10/06/2021 2:36 PM INPATIENT AUDITOR IMPRESSION: 1. Marked arthritic changes. 2. No acute osseous abnormality. Ordered By: ANATOLIY SANZ Interpreted By: Jasper Gray MD, 10/06/2021 2:35 PM Narrative 10/06/2021 2:36 PM INPATIENT AUDITOR Examination: XR KNEE LT 3V Exam time: 10/06/2021 1:48 PM Clinical history: Pain left knee Comparison: 05/26/2008 left knee Technique: Upright AP and lateral views. Langdon view. Findings: There is severe loss of [...] knee Technique: Upright AP and lateral views. Langdon view. Findings: There is severe loss of [...] Jasper Gray MD, 10/06/2021 2:35 PM us Anatoliy Sanz MD GENERAL IMAGING Final Result documented in this encounter Visit Diagnoses Diagnosis Left knee pain- Primary Pain in joint, lower leg documented in this encounter Additional Health Concerns Assessment Noted Time PHQ-9 Depression Total Score: 1 09/29/19 10:03 AM INPATIENT AUDITOR documented as of this encounter Care Teams Flexographic Printing Press Operator Relationship Specialty Start Date End Date Soledad Lucas MD [address] [facility] [address] [place] [address] PCP - General INTERNAL MEDICINE 09/29/21 documented as of this encounter
--- OUTSIDE RECORDS SUMMARY | 2024-08-03 05:06 | XMS_ITS | Encounter Summary ---
Author Organization [facility] Address [address] [place] [address]. [address] [address] Care Team Providers Care Head Of Digital Name Role Phone Soledad Lucas MD Primary Care Provider [phone] Reason for Referral * Procedure (Routine) - Closed Specialty Diagnoses / Procedures Referred By Prasanth santillan Referred To Contact Diagnoses Left-sided chest pain Prediabetes Overweight (BMI 25.0-29.9) Primary hypertension Procedures Stress test only, exercise [facility] [place] [address] Phone: tel: Referral ID Status Reason Start Date Expiration Date Visits Re quested Visits Authorized [id number] Closed 10/27/2021 11/27/2022 1 1 * Imaging (Routine) - Closed Specialty Diagnoses / Procedures Referred By Prasanth santillan Referred To Contact RADIOLOGY Diagnoses Left-sided chest pain Procedures NM PHARM NUC STRESS TEST 1DAY Soledad Lucas MD 1188 [facility] [address] [place] [address] Phone: tel: fax: Referral ID Status Reason Start Date Expiration Date Visits Re quested Visits Authorized [id number] Closed 10/21/2021 12/05/2021 1 1 Reason for Visit * Imaging (Routine) - Closed Specialty Diagnoses / Procedures Referred By Contaiden t Referred To Contact RADIOLOGY Diagnoses Left-sided chest pain Procedures NM PHARM NUC STRESS TEST 1DAY Soledad Lucas MD 118[address] [facility] [address] [place] [address] Phone: tel: fax: Referral ID Status Reason Start Date Expiration Date Visits Re quested Visits Authorized [id number] Closed 10/21/2021 12/05/2021 1 1 Encounter Details Date Type Department Care Team (Latest Contact Info) Description 10/27/2021 7:14 AM CDT - 10/27/2021 11:59 PM CDT Hospital Encounter [facility] Nuclear Medicine [address] [facility] [place] [address] Soledad Lucas MD [address] [address] Discharge Disposition: Home or Self [...] 1 each 10/26/2021 2 vitamin D2, ergocalciferol, 46100 UNITS capsuleIndications:V itamin D deficiency Take 1 capsule (50,000 Units total) by mouth weekly. 12 capsule 1 09/29/2021 3 documented as of this encounter Plan of Treatment Upcoming Encounters Date Type Department Care Team (Late st Contact Info) Description 08/19/2024 9:00 AM LOOM OPERATOR APPRENTICE Office Visit [facility] Multispecialty Care - [address] [address] [address] [place] [address] Soledad Lucas MD [address] [place] [address] [address] [place] [address] 12/16/2024 10:40 AM CDT Office Visit [facility] Multispecialty Care - [facility] [address] [place] [address] Ramsey Oakley MD [address] [place] [address] documented as of this encounter Procedures Procedure [...] Imaging ? Pat.Name: ??JULIET GRIMM ? Pat.ID: ?[id number] ? St.Date: ?? 10/27/2021 ? Refer.MD: ??Soledad Lucas [id number] Exam Time: 8:05:00 AM ? Study Type:BEN NC HT MUSCLE IMAGE SPECT MULTI Height: ?73in ?Weight: ?216lb ? BSA: ? 2.23 m2 ?Age: ??08/14/1961,60Y ? Sex: ? MALE ?Sonogrphr: Kanchan Patel, MANAGER ADOBE ? Pat. Stat.:Outpatient ? Reason for Study: [...] ?O2 Sat ? 100 % Max RPP ?[address] ? Symptoms and Complications: Terminated safety issues with legs Symptoms ?? Leg fatigue Complications None Stress ECG Interp Sinus tachycardia, VPCs, J point depression Signed 10/27/2021 12:04 PM Jennifer Still M.D. Procedure Note Jennifer Still MD - 10/27/2021 Myocardial Perfusion Imaging Pat.Name: JULIET GRIMM Pat.ID: [id number] St.Date: 10/27/2021 Refer.MD: Soledad Lucas [id number] Exam Time: 8:05:00 AM Study Type:[facility] HT MUSCLE IMAGE SPECT MULTI Height: 73in [...] 188/88 O2 Sat 100 % Max RPP 59[address] Symptoms and Complications: Terminated safety issues with [...] Depression Total Score: 1 09/29/19 10:03 AM LOOM OPERATOR APPRENTICE documented as of this encounter Care Teams Head Of Digital Relationship Specialty Start Date End Date Soledad Lucas MD [address] [address] PCP - General INTERNAL MEDICINE 09/29/21 documented as of this encounter
--- OUTSIDE RECORDS SUMMARY | 2024-08-03 05:06 | XMS_ITS | Encounter Summary ---
Author Organization [facility] Address [address] [place] [address]. [address] [address] Care Team Providers Care Display Manager Name Role Phone Soledad Lucas MD Primary Care Provider Reason for Referral * Imaging (Routine) - Closed Specialty Diagnoses / Procedures Referred By Prasanth santillan Referred To Contact RADIOLOGY Diagnoses Acute pain of left knee Procedures XR KNEE LT 3V Soledad Lucas MD [address] [address] Phone: tel: fax: Referral ID Status Reason Start Date Expiration Date Visits Re quested Visits Authorized [id number] Closed 09/29/2021 10/27/2022 1 1 RAL HOME ASSOCIATE * Consultation/Treatment (Routine) - Closed Specialty Diagnoses / Procedures Referred By Prasanth santillan Referred To Contact ORTHOPAEDICS Diagnoses Acute pain of left knee Soledad Lucas MD [address] [address] Phone: tel: fax: Sidney Ruff MD [address] [place] [address] Phone: tel: fax: Referral ID Status Reason Start Date Expiration Date V isits Requested Visits Authorized [id number] Closed Specialty Services 09/27/2021 03/26/2022 6 6 RAL HOME ASSOCIATE Reason for Visit * Reason Comments New Patient Pt is here to establ [facility] care. He is complaining of left side pain. He would like a referral for Ortho as well for his knees. He is compalining of his left knee. Encounter Details Date Type Department Care Team (Latest Contact Info) Description 09/29/2021 9:20 AM FUNERAL HOME ASSOCIATE Office Visit [facility] Multispecialty Care - [place] [address] [address] [place] [address] Soledad Lucas MD 1188 [facility] [address] [place] [address] New Patient (Pt is here [...] Coronavirus/COVID-19? No / Unsure 09/29/2021 8:43 AM FUNERAL HOME ASSOCIATE documented as of this encounter Last Filed Vital Signs Vital Sign Reading Time Taken Comments Blood Pressure 178/95 09/29/2021 10:03 AM FUNERAL HOME ASSOCIATE Pulse 74 09/29/2021 9:15 AM FUNERAL HOME ASSOCIATE Temperature 36.8 ??C (98.3 ??F) 09/29/2021 9:15 AM CS T Respiratory Rate 18 09/29/2021 9:15 AM FUNERAL HOME ASSOCIATE Oxygen Saturation 99% 09/29/2021 9:15 AM FUNERAL HOME ASSOCIATE Inhaled Oxygen Concentration - - Weight 101.2 kg (223 lb) 09/29/2021 9:15 AM FUNERAL HOME ASSOCIATE Height 185.4 cm (6' 1 ) 09/29/2021 9:15 AM FUNERAL HOME ASSOCIATE Body Mass Index 29.42 09/29/2021 9:15 AM FUNERAL HOME ASSOCIATE documented in this encounter Patient Instructions * Patient Instructions* Soledad Lucas MD - 09/29/2021 9:20 AM FUNERAL HOME ASSOCIATE Follow up in 4 weeks. Referral call You will receive a call from our referral team ([phone]) regarding your referral. Insurance authorization Our commercial collections specialist will contact your insurance company to get prior authorization if needed. Appointment If you have been referred to an [facility] hospital or [facility] provider, the hospital or clinic you have been referred to will call you to schedule your appointment. For those outside services of [facility], our referral expects will be in contact by phone or mail regarding your recently placed referral. If you have not heard anything from your referral in about 1 week, please call [phone]. Working with insurance companies can be cumbersome, but we are dedicated to processing your referral timely and efficiently. Please know you have a caring and competent team working on your behalf [facility] continuum of care as quickly as possible. [...] pharmacist about all of your drugs, including cgak-tko-yfbnhib medicines, to see if they may cause [...] ?? Nosebleed Where can I learn more? [place] [employer] https://www.heart.org/en/health-topics/gmel-oqlxt-phjjwtar/xtqdkrq-sgq-tct-make- at-vidtfy-neqh-blood-pressure [place] [employer] https://www.heart.org/en/health-topics/apfn-ejgcl-fttynxii/tth-bsvg-cfuln-pressu bw-os-w-silent-killer/lfqa-ualu-ihwg-hqzytje-byd-vrlg-blood-pressure Centers for Disease Control and Prevention https://www.cdc.gov/bloodpressure/risk_factors.htm NHS Choices https://www.nhs.uk/conditions/gocg-igvwq-ajlcanpi-hypertension/ Last Reviewed Date 2019-10-31 Consumer Information Use [...] or approved for treating a specific patient. [employer] and its affiliates disclaim any warranty or liability relating to this information or the use thereof. The use of this information is governed by the Terms of Use, available at https://www.Zapnip.Hoseanna/en/solutions/PayTangoicomp/about/aleks Copyright Copyright ?? 2020 [employer] and its affiliates and/or licensors. All rights reserved. RAL HOME ASSOCIATE documented in this encounter Progress Notes * [...] and left- sided chest discomfort. Patient is -[place]. Osteoarthritis right knee Status post right knee [...] compliance to medications without any side effects. -[place]. Currently complains about left-sided chest discomfort especially [...] pain R07.9 786.50 LEFT SIDED CHEST PAIN [address] - EKG (In Clinic Complete tracing, interp [...] I10 401.9 ESSENTIAL HYPERTENSION lisinopril- hydroCH[facility]OR[facility]thiazide [facility]. Diagnoses [...] smoking/second hand smoking. Patient will set up Additecht. Patient will fax over any remaining outside [...] smoking/second hand smoking. Patient will set up Zeerhart. Patient will fax over any remaining outside [...] pressure contributing this is likely costochondritis - [address] - EKG (In Clinic Complete tracing, interp [...] was at least in part performed using Finestrella speak and there may be some inherent flaws in this retail loss prevention specialist due to the nature of this program. MD Soledad GO MD Internal Medicine [facility], [facility]. RAL HOME ASSOCIATE documented in this encounter Plan of Treatment Upcoming Encounters Date Type Department Care Team (Late st Contact Info) Description 08/19/2024 9:00 AM FUNERAL HOME ASSOCIATE Office Visit [facility] Multispecialty Care - [place] [address] [place] [address] [address] [place] [address] Soledad Lucas MD 1188 [facility] [address] [place] [address] 12/16/2024 10:40 AM CDT Office Visit [facility] Multispecialty Care - [facility] [address] [facility] [place] [id number] Ramsey Oakley MD [address] [place] [address] Scheduled Orders Name Type Priority Associated Diagnoses [...] URIC ACID BLOOD Routine 09/29/2021 10:21 AM FUNERAL HOME ASSOCIATE Acute pain of left knee TSH W/REFLEX Routine 09/29/2021 10:05 AM FUNERAL HOME ASSOCIATE Annual physical exam Encounter for medical examination to establish care General medical exam Screening for hypothyroidism HEMOGLOBIN, GLYCOSYLATED Routine 09/29/2021 10:05 AM FUNERAL HOME ASSOCIATE Annual physical exam Encounter for medical examination to establish care General medical exam Screening for diabetes mellitus Impaired fasting glucose PROSTATE SPECIFIC ANTIGEN,SCREENING Routine 09/29/2021 10:05 AM FUNERAL HOME ASSOCIATE Screening for prostate cancer COMPREHENSIVE METABOLIC PANEL Routine 09/29/2021 10:05 AM FUNERAL HOME ASSOCIATE Annual physical exam Encounter for medical examination to establish care General medical exam LIPID PANEL Routine 09/29/2021 10:05 AM FUNERAL HOME ASSOCIATE Annual physical exam Encounter for medical examination to establish care General medical exam Screening for hyperlipidemia HEPATITIS C ANTIBODY Routine 09/29/2021 10:05 AM FUNERAL HOME ASSOCIATE Annual physical exam Encounter for medical examination to establish care General medical exam Encounter for hepatitis C screening test for low risk patient CBC W/DIFF AUTOMATED Routine 09/29/2021 10:05 AM FUNERAL HOME ASSOCIATE Annual physical exam Encounter for medical examination to establish care General medical exam Body mass index (BMI) 29.0-29.9, adult VITAMIN D, 25 OH Routine 09/29/2021 10:0 5 AM FUNERAL HOME ASSOCIATE Annual physical exam Encounter for medical examination to establish care General medical exam Encounter for vitamin deficiency screening Hypercalcemia ELECTROCARDIOGRAM, COMPLETE Routine 09/29/2021 9:56 AM FUNERAL HOME ASSOCIATE Left-sided chest pain VENIPUNC ARM DRAW Routine 09/29/2021 9:2 1 AM FUNERAL HOME ASSOCIATE Annual physical exam Encounter for medical examination to establish care General medical exam URINALYSIS, AUTO, COMPLETE Routine 09/29/2021 Annual physical exam Encounter for medical examination to establish care General medical exam ALBUMIN URINE RANDOM W/CREATININE Routine 09/29/2021 Annual physical exam Encounter for medical examination to establish care General medical exam documented in this encounter Results * URIC ACID BLOOD (09/29/2021 10:21 AM FUNERAL HOME ASSOCIATE) URIC ACID 4.5 3.5 - 7.2 MG/DL 09/29/2021 5:28 PM FUNERAL HOME ASSOCIATE [facility] 09/29/2021 10:2 1 AM FUNERAL HOME ASSOCIATE Soledad Lucas MD LABORATORY Final Result [facility] [address] [place] [address], [id number] * PROSTATE SPECIFIC ANTIGEN,SCREENING (09/29/2021 10:05 AM FUNERAL HOME ASSOCIATE) PSA 3.66 <4.00 NG/ML 09/29/2021 5:18 PM FUNERAL HOME ASSOCIATE [facility] Comment:Assay Method: Enzyme Immunoassay 09/29/2021 10:0 5 AM FUNERAL HOME ASSOCIATE Soledad Lucas MD LABORATORY Final Result Performing Organization Address [facility]/ZIP Co de Phone Number [facility] [address] [place] [address], * (ABNORMAL) HEMOGLOBIN, GLYCOSYLATED (09/29/2021 10:05 AM FUNERAL HOME ASSOCIATE) Pathologist [facility] HGB A1C 5.9(H) 3.80 - 5.60 % 09/29/2021 11:34 PM FUNERAL HOME ASSOCIATE [facility] ESTIMATED AVG GLUCOSE 123(H) 74 - 106 MG/DL 09/29/2021 11:34 PM FUNERAL HOME ASSOCIATE [facility] 09/29/2021 10:0 5 AM FUNERAL HOME ASSOCIATE us Soledad Lucas MD LABORATORY Final Result Performing Organization Address City/[facility] Co de Phone Number [facility] [address] [place] [address], * HEPATITIS C ANTIBODY (09/29/2021 10:05 AM FUNERAL HOME ASSOCIATE) HEPATITIS C AB NON-REACTI VE NON-REACT DESIREE 09/29/2021 6:57 PM FUNERAL HOME ASSOCIATE [facility] Comment: ANTIBODIES TO HCV NOT DETECTED. DOES NOT EXCLUDE THE POSSIBILITY OF EXPOSURE TO HCV. 09/29/2021 10:0 5 AM FUNERAL HOME ASSOCIATE us Soledad Lucas MD LABORATORY Final Result [facility] [address] [place] [address], [id number] * (ABNORMAL) VITAMIN D, 25 OH (09/29/2021 10:05 AM FUNERAL HOME ASSOCIATE) VITAMIN D 25 HYDROXY TOTAL S/P/B 13.4(L) 20 - 50 NG/ML 09/29/2021 5:20 PM FUNERAL HOME ASSOCIATE [facility] Comment: <10 ng/mL (Severe deficiency) 10 TO 19 ng/mL (Mild to Moderate deficiency) 20 TO 50 ng/mL (Optimum levels) 51 TO 80 ng/mL (Increased risk of hypercalciuria) >80 ng/mL (Toxicity possible) 09/29/2021 10:0 5 AM FUNERAL HOME ASSOCIATE Soledad Lucas MD LABORATORY Final Result Performing Organization Address [facility] Co de Phone Number [facility] [address] [place] [address], * LIPID PANEL (09/29/2021 10:05 AM FUNERAL HOME ASSOCIATE) [facility] CHOLESTEROL 139 <200 MG/DL 09/29/2021 5:20 PM FUNERAL HOME ASSOCIATE [facility] TRIGLYCERIDES 38 <150 MG/DL 09/29/2021 5:20 PM [facility] HDL 71 >40 MG/DL 09/29/2021 5:20 PM FUNERAL HOME ASSOCIATE [facility] LDL-C 60 <100 MG/DL 09/29/2021 5:20 PM FUNERAL HOME ASSOCIATE [facility] VLDL CALCULATION 8 5 - 28 MG/DL 09/29/2021 5:20 PM FUNERAL HOME ASSOCIATE [facility] CHOL/HDL RATIO 2.0 0.0 - 4.0 09/29/2021 5:20 PM [facility] LDL/HDL 0.8 0.41 - 2.13 09/29/2021 5:20 PM FUNERAL HOME ASSOCIATE [facility] NON HDL CHOLESTEROL 68 <140 MG/DL 09/29/2021 5:20 PM FUNERAL HOME ASSOCIATE [facility] 09/29/2021 10:0 5 AM FUNERAL HOME ASSOCIATE Soledad Lucas MD LABORATORY Final Result Performing Organization Address City/[facility]/ZIP Co de Phone Number [facility] [address] [place] [address], [place] [phone] * TSH W/REFLEX (09/29/2021 10:05 AM FUNERAL HOME ASSOCIATE) TSH 1.461 0.358 - 3.740 uIU/ML 09/29/2021 5:20 PM FUNERAL HOME ASSOCIATE [facility] 09/29/2021 10:0 5 AM FUNERAL HOME ASSOCIATE Soledad Lucas MD LABORATORY Final Result Performing Organization Address City/[facility]/ZIP Co de Phone Number [facility] [address] [place] [address], [place] [phone] * (ABNORMAL) COMPREHENSIVE METABOLIC PANEL (09/29/2021 10:05 AM FUNERAL HOME ASSOCIATE) SODIUM S/P/B 139 136 - 145 MMOL/L 09/29/2021 5:20 PM FUNERAL HOME ASSOCIATE [facility] POTASSIUM S/P/B 4.1 3.5 - 5.1 MMOL/L 09/29/2021 5:20 PM FUNERAL HOME ASSOCIATE [facility] CHLORIDE S/P/B 104 98 - 107 MMOL/L 09/29/2021 5:20 PM [facility] CO2 26.4 21 - 32 MMOL/L 09/29/2021 5:20 PM FUNERAL HOME ASSOCIATE [facility] GLUCOSE 106(H) 70 - 99 MG/DL 09/29/2021 5:20 PM [facility] BUN 13 6 - 24 MG/DL 09/29/2021 5:20 PM [facility] CREATININE S/P/B 0.83 0.70 - 1.30 MG/DL 09/29/2021 5:20 PM [facility] CALCIUM S/P/B 9.0 8.4 - 10.5 MG/DL 09/29/2021 5:20 PM [facility] BILIRUBIN TOTAL S/P/B 0.7 0.2 - 1.0 MG/DL 09/29/2021 5:20 PM [facility] ALKALINE PHOSPHATASE S/P/B 91 45 - 115 U/L 09/29/2021 5:20 PM [facility] AST 15 15 - 37 U/L 09/29/2021 5:20 PM [facility] ALT 19 16 - 63 U/L 09/29/2021 5:20 PM [facility] TOTAL PROTEIN S/P/B 7.5 6.4 - 8.2 G/DL 09/29/2021 5:20 PM [facility] ALBUMIN S/P/B 3.9 3.4 - 5.0 G/DL 09/29/2021 5:20 PM [facility] ANION GAP 8.6 5 - 15 MMOL/L 09/29/2021 5:20 PM [facility] Comment:REFERENCE RANGE NOT ESTABLISHED OSMOLALITY (CALC) 289 MOSM/KG 09/29/2021 5:20 PM [facility] Comment:REFERENCE RANGE NOT ESTABLISHED EGFR NON-AFR. AMER. >90 >90 ML/MIN/1 .73 M2 09/29/2021 5:20 PM [facility] EGFR AFR. AMER. >90 >90 ML/MIN/1 .73 M2 09/29/2021 5:20 PM [facility] GFR NOTES THE ESTIMATED GFR IS CALCULATED USING THE 2009 CKD-EPI EQUATION. THE FOLLOWING CATEGORIES FOR GRADING RENAL FUNCTION ARE RECOMMENDED BY THE INTERNATIONAL SOCIETY OF NEPHROLOGY (KDIGO 2012 CLINICAL PRACTICE GUIDELINE). 09/29/2021 5:20 PM FUNERAL HOME ASSOCIATE [facility] Comment: G1,NORMAL OR HIGH: >89 ml/min/1.73 m2 G2,MILDLY DECREASED: 60-89 ml/min/1.73 m2 G3A,MILDLY TO MODERATELY DECREASED: 45-59 ml/min/1.73 m2 G3B,MODERATELY TO SEVERELY DECREASED: 30-44 ml/min/1.73 m2 G4,SEVERELY DECREASED: 15-29 ml/min/1.73 m2 G5,KIDNEY FAILURE: <15 ml/min/1.73 m2 09/29/2021 10:0 5 AM FUNERAL HOME ASSOCIATE Soledad Lucas MD LABORATORY Final Result [facility] [address] [place] [address], * (ABNORMAL) CBC W/DIFF AUTOMATED (09/29/2021 10:05 AM FUNERAL HOME ASSOCIATE) WBC 5.8 4.0 - 10.8 x10'3/uL 09/29/2021 2:03 PM [facility] RBC 5.13 4.50 - 6.10 x10'6/uL 09/29/2021 2:03 PM [facility] HGB 14.1 13.0 - 18.0 G/DL 09/29/2021 2:03 PM FUNERAL HOME ASSOCIATE [facility] HCT 43.3 37.0 - 52.0 % 09/29/2021 2:03 PM [facility] MCV 84.4 78.0 - 100.0 FL 09/29/2021 2:03 PM [facility] MCH 27.5 27.0 - 31.0 PG 09/29/2021 2:03 PM [facility] MCHC 32.6(L) 33.0 - 36.0 G/DL 09/29/2021 2:03 PM [facility] RDW 13.8 11.5 - 14.5 % 09/29/2021 2:03 PM [facility] PLT 262 150 - 350 x10'3/uL 09/29/2021 2:03 PM [facility] MPV 10.6(H) 7.4 - 10.4 FL 09/29/2021 2:03 PM [facility] DIFFERENTIAL TYPE AUTOMATED DIFFERENTIAL 09/29/2021 2:03 PM [facility] NEUTROPHILS % 56.3 % 09/29/2021 2:03 PM [facility] LYMPHOCYTES % 27.5 % 09/29/2021 2:03 PM [facility] MONOCYTES % 10.7 % 09/29/2021 2:03 PM [facility] EOSINOPHILS % 5.0 % 09/29/2021 2:03 PM [facility] BASOPHILS % 0.3 % 09/29/2021 2:03 PM [facility] IMMATURE GRANS % 0.2 % 09/29/2021 2:03 PM [facility] ABS. NEUTROPHILS 3.27 1.60 - 8.30 x10'3/uL 09/29/2021 2:03 PM [facility] ABS. LYMPHOCYTES 1.60 0.80 - 4.70 x10'3/uL 09/29/2021 2:03 PM [facility] ABS. MONOCYTES 0.62 0.00 - 1.50 x10'3/uL 09/29/2021 2:03 PM [facility] ABS. EOSINOPHILS 0.29 0.00 - 0.40 x10'3/uL 09/29/2021 2:03 PM [facility] ABS. BASOPHILS 0.02 0.00 - 0.20 x10'3/uL 09/29/2021 2:03 PM FUNERAL HOME ASSOCIATE [facility] ABS. IMMATURE GRANULOCYTES 0.01 0.00 - 0.03 x10'3/uL 09/29/2021 2:03 PM FUNERAL HOME ASSOCIATE [facility] 09/29/2021 10:0 5 AM FUNERAL HOME ASSOCIATE us Soledad Lucas MD LABORATORY Final Result Performing Organization Address [facility] de Phone Number [facility] [address] [address], [place] [phone] * [id number] - EKG (In Clinic Complete tracing, interp & report) (09/29/2021 9:56 AM FUNERAL HOME ASSOCIATE) us Soledad Lucas MD PROCEDURES-RESULTABLE Edited Res ult - Final * (ABNORMAL) ALBUMIN URINE RANDOM (09/29/2021) MICROALBUMIN (U) 80 MG- [address] [place] CREATININE RANDOM (U) 200 [address] [place] MICROALB/CREAT 30-300 MG-[address] [place] URINE SPECIMEN / Unknown 09/29/2021 us Soledad Lucas MD URINE ORDERABLES Final Result Performing Organization Address [facility] de Phone Number MG-[address], [place] [address] [place] [address], [place] [phone] * URINALYSIS, AUTO, COMPLETE (09/29/2021) COLOR (U) YELLOW [address] [place] TRANSPARENCY CLEAR [address] [place] GLUCOSE (U) NEGATIVE NEGATIVE MG/DL [address] [place] BILIRUBIN (U) NEGATIVE NEGATIVE MG-[address], [place] KETONES MG/DL (U) NEGATIVE NEGATIVE MG/DL MG-[address] [place] SPECIFIC GRAVITY (U) 1.025 1.001 - 1.035 [address] [place] BLOOD (U) NEGATIVE NEGATIVE MG-[address], [place] U PH 7.0 5.0 - 9.0 MG-[address], [place] PROTEIN (U) NEGATIVE NEGATIVE mg/dL MG-[address], [place] UROBILINOGEN 1.0 0.2 - 1.0 EU/dL = mg/dL [address], [place] NITRITES NEGATIVE NEGATIVE MG/DL MG-[address], [place] LEUKOCYTES (U) NEGATIVE NEGATIVE MG-[address], [place] URINE SPECIMEN OBTAINED BY CLEAN CATCH PROCEDURE / Unknown 09/29/2021 Soledad Lucas MD URINE ORDERABLES Final Result Performing Organization Address City/State/[facility] Co de Phone Number [address], [place] [address] [facility] [address] [place] [address], documented in this encounter Visit Diagnoses Diagnosis [...] Total Score: 1 09/29/19 22 10:03 AM FUNERAL HOME ASSOCIATE documented as of this encounter Care Teams Display Manager Relationship Specialty Start Date End Date Soledad Lucas MD [address] [facility] [address] [place] [address] PCP - General INTERNAL MEDICINE 09/29/21 documented as of this encounter
--- OUTSIDE RECORDS SUMMARY | 2024-08-03 05:06 | XMS_ITS | Encounter Summary ---
Author Organization [facility] Address [address] [place] [address]. [place], [place] [address] [place] [address] Care Team Providers Care Meeting Facilitator Name Role Phone Soledad Lucas MD Primary Care Provider [phone] Reason for Visit * Reason Comments Colonoscopy Report (SCAN) Encounter Details Date Type Department Care Team ([facility] Contact Info) Description 07/20/2021 Scan HEALTH INFO [...] Upcoming Encounters Date Type Department Care Team ([facility] Contact Info) Description 08/19/2024 9:00 AM MEDICAL RECORD LIBRARIANS TEACHER Office Visit [facility] Multispecialty Care - [address] [address] [address] [address] [place] [address] Soledad Lucas MD [address] [place] [address] [address] [place], [place] [id number] 12/16/2024 10:40 AM CDT Office Visit [facility] Multispecialty Care - [facility] [address] [facility] [place] [address] Ramsey Oakley MD [address] [place] [address] documented as of this encounter Procedures Procedure Name Priority Date/Time Associated Diagnosis Comments COLONOSCOPY GENERIC (SCAN ORDER) 07/20/2021 documented in this encounter Results * COLONOSCOPY GENERIC (07/20/2021) 07/20/2021 Narrative 07/20/2021 Ordered by an unspecified provider. us Documents Scanned SCANNING Final Result documented in this encounter Visit Diagnoses Not on filedocumented in this encounter Care Teams Meeting Facilitator Relationship Specialty Start Date End Date Soledad Lucas MD [address] [facility] [address] [place] [address] PCP - General INTERNAL MEDICINE 09/29/21 documented as of this encounter
--- OUTSIDE RECORDS SUMMARY | 2024-08-03 05:06 | XMS_ITS | Encounter Summary ---
Author Organization [facility] Address [address] [place] [address]. [place], [place] [address] [place] [address] Care Team Providers Care Signaling Project Engineer Name Role Phone Md, Generic Conversion Primary Care Provider Unavailable Md, Generic Conversion Primary Care Provider Unavailable Md, Generic Conversion Primary Care Provider Unavailable Encounter Details Date Type Department Care Team (Late Contact Info) Description 08/17/2008 Emergency [facility] [place] [address] Chris Linares MD [address] [place] [address] Social History Tobacco Use Types Packs/Day Years [...] st Contact Info) Description 08/19/2024 9:00 AM SMALL ENGINE TRAINER Office Visit [facility] Medical [facility] Multispecialty [facility] - [place] [address] [address] [place] [address] Soledad Lucas MD [address] [address] 12/16/2024 10:40 AM CDT Office Visit [facility] Medical Group Multispecialty Care - [facility] 3 [facility] [address] [place] [phone] Ramsey Oakley MD 3 [facility] [address] [place] [address] documented as of this encounter Visit Diagnoses Not on filedocumented in this encounter Care Teams Signaling Project Engineer Relationship Specialty Start Date End Date Md Generic Conversion, PCP - General 02/15/12 Md Generic Conversion, PCP - General 10/21/11 Md Generic Conversion, PCP - General 08/04/10 documented as of this encounter
--- OUTSIDE RECORDS SUMMARY | 2024-08-03 05:06 | XMS_ITS | Encounter Summary ---
Author Organization [facility] Address [address] [place] [address]. [place], [place] [address] [place] [address] Care Team Providers Care Acute Care Certified Nursing Assistant Name Role Phone Md, Generic Conversion Primary Care Provider Unavailable , Generic Conversion Primary Care Provider Unavailable , Generic Conversion Primary Care Provider Unavailable Encounter Details Date Type Department Care Team (Late st Contact Info) Description 08/02/[address] [facility] [place] [address] Lore Pressley MD [address] [place] [address] [id number] Social History Tobacco Use Types Packs/Day Years [...] st Contact Info) Description 08/19/2024 9:00 AM PRODUCT SAFETY TEST ENGINEER Office Visit [facility] Medical Group Multispecialty Care - [place] [address] [address] [place] [address] Soledad Lucas MD [address] [place] [address] 157 [place] [address] 12/16/2024 10:40 AM CDT Office Visit [facility] Medical Group Multispecialty Care - [facility] 3 [facility] [address] [place] [phone] Ramsey Oakley MD 3 [facility] [address] [place] [address] documented as of this encounter Visit Diagnoses Not on filedocumented in this encounter Care Teams Acute Care Certified Nursing Assistant Relationship Specialty Start Date End Date Md Generic Conversion, PCP - General 02/15/12 Md Generic Conversion, PCP - General 10/21/11 Md Generic Conversion, PCP - General 08/04/10 documented as of this encounter
--- OUTSIDE RECORDS SUMMARY | 2024-08-03 05:06 | XMS_ITS | Encounter Summary ---
Author Organization [facility] Address [address] [place] [address]. [place], [place] [address] [place] [address] Care Team Providers Care Records Section Supervisor Name Role Phone Md, Generic Conversion Primary Care Provider Unavailable , Generic Conversion Primary Care Provider Unavailable , Generic Conversion Primary Care Provider Unavailable Encounter Details Date Type Department Care Team (Late st Contact Info) Description 08/04/[address] 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 Medical Group Multispecialty Care - [place] [address] [address] [place] [address] Soledad Lucas MD [address] [place] [address] 157 [place] [address] 12/16/2024 10:40 AM CDT Office Visit [facility] Medical Group Multispecialty Care - [facility] 3 [facility] [address] [place] [address] Ramsey Oakley MD 3 [facility] [address] [place] [address] documented as of this encounter Visit Diagnoses Diagnosis Bronchitis Bronchitis, not specified as acute or chronic documented in this encounter Care Teams Records Section Supervisor Relationship Specialty Start Date End Date Md Generic Conversion, PCP - General 02/15/12 Md Generic Conversion, PCP - General 10/21/11 Md Generic Conversion, PCP - General 08/04/10 documented as of this encounter
--- OUTSIDE RECORDS SUMMARY | 2024-08-03 05:06 | XMS_ITS | Encounter Summary ---
Author Organization [facility] Address [address] [place] [address]. [place], [place] [address] [place] [address] Care Team Providers Care Painter And Body Work Name Role Phone Md, Generic Crescencio STAPLETON Primary Care Provider Unavailable Encounter Details Date Type Department Care Team (Latest Contact Info) Description 08/22/2017 Abstract [facility] Medical Group Social History Tobacco Use [...] st Contact Info) Description 08/19/2024 9:00 AM CUSTOMS CONSULTANT Office Visit [facility] Multispecialty Care - [place] [address] [address] [place] [address] Soledad Lucas MD [address] [place] [address] 12/16/2024 10:40 AM CDT Office Visit [facility] Multispecialty Care - [facility] 3 [facility], [address] [place] [address] Ramsey Oakley MD 3 [facility] [address] [place] [address] documented as of this encounter Visit Diagnoses Not on filedocumented in this encounter Care Teams Painter And Body Work Relationship Specialty Start Date End Date Danica Stapleton Conversion, PCP - General 02/15/12 documented as of this encounter
--- OUTSIDE RECORDS SUMMARY | 2024-08-03 05:06 | XMS_ITS | Encounter Summary ---
Author Organization [facility] Address [address] [place] [address] [address] Care Team Providers Care Library Acquisitions Technician Name Role Phone Soledad Lucas MD Primary Care Provider [phone] Reason for Visit * Reason Onset Date Comments Medication 09/29/2021 Encounter Details Date Type Department Care Team (Late st Contact Info) Description 09/29/2021 Telephone [facility] Medical Group Multispecialty Care - [address] [place] [address] Soledad Lucas MD [address] [place] [address] 157 [place] [address] Medication Social History Tobacco Use [...] Coronavirus/COVID-19? No / Unsure 09/29/2021 8:43 AM RELEASE MANAGER documented as of this encounter Progress Notes * Soledad Lucas MD - 09/29/2021 5:39 PM CST Vit d sent ASE MANAGER documented in this encounter Plan of Treatment Upcoming Encounters Date Type Department Care Team (Late st Contact Info) Description 08/19/2024 9:00 AM RELEASE MANAGER [facility] [address] [place] [address] Soledad Lucas MD [address] [address] 12/16/2024 10:40 AM CDT [facility] 3 [facility] [address] [place] [address] Ramsey Oakley MD 3 [facility] [address] [place] [address] documented as of this encounter Visit Diagnoses Diagnosis Vitamin D deficiency- Primary Unspecified vitamin D deficiency documented in this encounter Additional Health Concerns Assessment Noted Time PHQ-9 Depression Total Score: 1 09/29/19 10:03 AM RELEASE MANAGER documented as of this encounter Care Teams Library Acquisitions Technician Relationship Specialty Start Date End Date Soledad Lucas MD [address] [place] [address] PCP - General INTERNAL MEDICINE 09/29/21 documented as of this encounter
--- OUTSIDE RECORDS SUMMARY | 2024-08-03 05:06 | XMS_ITS | Encounter Summary ---
Author Organization [facility] Address [address] [place] [address]. [place], [place] [address] [place] [address] Care Team Providers Care Assistant Reading Teacher Name Role Phone Danica Fish MD Primary Care Provider Unavailable Encounter Details Date Type Department Care Team (Late st Contact Info) Description 02/15/2012 Abstract [facility] [place] [address] , Danica Prather MD Social History Tobacco [...] st Contact Info) Description 08/19/2024 9:00 AM ANTIQUE DEALER [facility] [place] [address] [address] [place] [address] Soledad Lucas MD [address] [place] [address] 12/16/2024 10:40 AM CDT [facility] [address] [place] [address] Ramsey Oakley MD [address] [address] documented as of this encounter Visit Diagnoses Diagnosis Localized osteoarthrosis, lower leg Localized osteoarthrosis not specified whether primary or secondary, lower leg documented in this encounter Care Teams Assistant Reading Teacher Relationship Specialty Start Date End Date Danica Fish MD PCP - General 02/15/12 documented as of this encounter
--- OUTSIDE RECORDS SUMMARY | 2024-08-03 05:06 | XMS_ITS | Encounter Summary ---
Author Organization [facility] Address [address] [place] [address]. [place], [place] [address] [place] [address] Care Team Providers Care Shoddy Mill Worker Name Role Phone Danica Fish MD Primary Care Provider Unavailable Encounter Details Date Type Department Care Team (Late st Contact Info) Description 04/26/[address] [facility] Medical Group Multispecialty Care - [address], [address] [place] [phone] Stepan Roldan MD [facility] [address] [place] [address] Social History Tobacco Use Types [...] Vitals Signs [Data Includes: Last 1 Day] [id number] 09:50AM BMI Calculated: 33.13 BSA Calculated: 2.36 [...] Roldan M.D.; Apr 26 2012 12:41PM (Author) H PANNER documented in this encounter Plan of Treatment Upcoming Encounters Date Type Department Care Team (Late st Contact Info) Description 08/19/2024 9:00 AM DOUGH PANNER Office Visit [facility] Medical [facility] Multispecialty Care - [address] [place] [address] Soledad Lucas MD [address] [facility] [address] [place] [address] 12/16/2024 10:40 AM CDT Office Visit [facility] Multispecialty [facility] [place] - [facility] 3 [facility] [address] [place] [phone] Ramsey Oakley MD [address] [facility] [address] [place] [address] documented as of this encounter Visit Diagnoses Not on filedocumented in this encounter Care Teams Shoddy Mill Worker Relationship Specialty Start Date End Date Danica Fsih MD PCP - General 02/15/12 documented as of this encounter
--- OUTSIDE RECORDS SUMMARY | 2024-08-03 05:06 | XMS_ITS | Encounter Summary ---
Author Organization [facility] Address [address] [place] [address] [address] Care Team Providers Care Inspection Clerk Name Role Phone Soledad Lucas MD Primary Care Provider Reason for Visit * Reason Onset Date Comments Pre-visit Gap Closure 10/07/2021 Encounter Details Date Type Department Care Team (Late st Contact Info) Description 10/07/2021 Telephone [facility] Medical Group Multispecialty Care - [place] [address] [address] [place] [address] Soledad Lucas MD [address] [place] [address] 157 [place], [place] [phone] Pre-visit Gap Closure Social History Tobacco Use [...] Coronavirus/COVID-19? No / Unsure 10/06/2021 1:31 PM CAR TOP BOLTER documented as of this encounter Progress Notes * Sofie Grimm CMA - 10/07/2021 10:37 AM CST Contacted patient for pre-visit gap closure. I am calling this patient as a patient advocate for the [employer]. My direct extension is [phone]. You can also reach me at: [phone] ([facility]) OR [phone] ([place]) TOP BOLTER documented in this encounter Plan of Treatment Upcoming Encounters Date Type Department Care Team (Late st Contact Info) Description 08/19/2024 9:00 AM CAR TOP BOLTER Office Visit [facility] Multispecialty Care - [place] [address] [address] [place] [address] Soledad Lucas MD [address] [place] [address] 12/16/2024 10:40 AM CDT Office Visit [facility] Multispecialty Care - [facility] [address] [facility] [address] [place] [address] Ramsey Oakley MD [address] [facility] [address] [place] [address] documented as of this encounter Visit Diagnoses Not on filedocumented in this encounter Additional Health Concerns Assessment Noted Time PHQ-9 Depression Total Score: 1 09/29/19 10:03 AM CAR TOP BOLTER documented as of this encounter Care Teams Inspection Clerk Relationship Specialty [place] [address] [place] [address] 157 [place] [address] PCP - General INTERNAL MEDICINE 09/29/21 documented as of this encounter
--- OUTSIDE RECORDS SUMMARY | 2024-08-03 05:06 | XMS_ITS | Encounter Summary ---
Author Organization [facility] Address [address] [place] [address]. [place], [place] [address] [place] [address] Care Team Providers Care Fell Cutter Name Role Phone Soledad Lucas MD Primary Care Provider [phone] Encounter Details Date Type Department Care Team [...] Coronavirus/COVID-19? No / Unsure 09/29/2021 8:43 AM CHIEF SECURITY AND SAFETY OFFICER documented as of this encounter Plan of Treatment Upcoming Encounters Date Type Department Care Team (Late st Contact Info) Description 08/19/2024 9:00 AM CHIEF SECURITY AND SAFETY OFFICER [facility] Multispecialty Care - [place] [address] [address] [place] [address] Soledad Lucas MD [address] [place] [address] [address] [place] [address] 12/16/2024 10:40 AM CDT [facility] Care - [facility] 3 [facility] [address] [place] [address] Ramsey Oakley MD 3 [facility] [address] [place] [address] documented as of this encounter Visit Diagnoses Not on filedocumented in this encounter Additional Health Concerns Assessment Noted Time PHQ-9 Depression Total Score: 1 09/29/19 10:03 AM CHIEF SECURITY AND SAFETY OFFICER documented as of this encounter Care Teams Fell Cutter Relationship Specialty Start Date End Date Soledad Lucas MD [address] [address] PCP - General INTERNAL MEDICINE 09/29/21 documented as of this encounter
--- OUTSIDE RECORDS SUMMARY | 2024-08-03 05:06 | XMS_ITS | Encounter Summary ---
Author Organization [facility] Address [address] [place] [address]. [place], [place] [address] [place] [address] Care Team Providers Care Material Disposition Inspector Name Role Phone Soledad Lucas MD Primary Care Provider [phone] Reason for Visit * Reason Comments New Patient left knee pain * Consultation/Treatment (Routine) - Closed Specialty Diagnoses / Procedures Referred By Prasanth santillan Referred To Contact ORTHOPAEDICS Diagnoses Acute pain of left knee Soledad Lucas MD [address] [address] Phone: tel: fax: Anatoliy Sanz MD [address] [place] [address] Phone: tel: fax: Referral ID Status Reason Start Date Expiration Date V isits Requested Visits Authorized [id number] Closed Specialty Services 09/27/2021 03/26/2022 6 6 Encounter Details Date Type Department Care Team (Late st Contact Info) Description 10/06/2021 1:00 PM MEMBERSHIP SALES MANAGER Office Visit [facility] Medical [facility] - [address] [address] Anatoliy Sanz MD [address] [place] [address] New Patient (left knee pain ) Social [...] Coronavirus/COVID-19? No / Unsure 10/06/2021 1:31 PM MEMBERSHIP SALES MANAGER documented as of this encounter Last Filed Vital Signs Vital Sign Reading Time Taken Comments Blood Pressure 122/76 10/06/2021 1:59 PM MEMBERSHIP SALES MANAGER Pulse 71 10/06/2021 1:59 PM MEMBERSHIP SALES MANAGER Temperature - - Respiratory Rate - - Oxygen Saturation - - Inhaled Oxygen Concentration - - Weight 97.5 kg (215 lb) 10/06/2021 1:59 PM MEMBERSHIP SALES MANAGER Height 185.4 cm (6' 1 ) 10/06/2021 1:59 PM MEMBERSHIP SALES MANAGER Body Mass Index 28.37 10/06/2021 1:59 PM MEMBERSHIP SALES MANAGER documented in this encounter Progress Notes * [...] 60 tablet 3 ??? vitamin D2, ergocalciferol, [address]3665 UNITS capsule Take 1 capsule (50,000 Units [...] Portions of this note were dictated using ARX speech recognition software. Occasional wrong wordor sound-alike substitutions may have occurred due to the inherent limitations of voice recognition software. Please read the chart carefully and recognize, using context, where the substitutions may have occurred. ERSHIP SALES MANAGER documented in this encounter Plan of Treatment Upcoming Encounters Date Type Department Care Team (Late st Contact Info) Description 08/19/2024 9:00 AM MEMBERSHIP SALES MANAGER [facility] - [place] [address] [address] [place] [address] Soledad Lucas MD [address] [place] [address] 12/16/2024 10:40 AM CDT Office Visit [facility] Multispecialty [facility] - [address] [place] [address] Ramsey Oakley MD [address] [place] [address] [address] [place] [address] Scheduled Orders Name Type Priority Associated Diagnoses [...] left lower leg Given 10/06/2021 2:27 PM MEMBERSHIP SALES MANAGER 4 mLs lidocaine (XYLOCAINE) 2 % injection 4 mL 4 mL, Other, Once, 1 dose, On Mon10/06/21 at 1445Indications:Arthralgia of left lower leg Given 10/06/2021 2:28 PM MEMBERSHIP SALES MANAGER 4 mLs triamcinolone acetonide (KENALOG-40) injection 80 mg 80 mg, Intra-articular, Once, 1 dose, On Mon10/06/21 at 1445, Shake WellIndications:Arthralgia of left lower leg Given 10/06/2021 2:27 PM MEMBERSHIP SALES MANAGER 80 mg Lef t Knee documented in this encounter Additional Health Concerns Assessment Noted Time PHQ-9 Depression Total Score: 1 09/29/19 10:03 AM MEMBERSHIP SALES MANAGER documented as of this encounter Care Teams Material Disposition Inspector Relationship Specialty Start Date End Date Soledad Lucas MD [address] [address] PCP - General INTERNAL MEDICINE 09/29/21 documented as of this encounter
--- OUTSIDE RECORDS SUMMARY | 2024-08-03 05:06 | XMS_ITS | Encounter Summary ---
Author Organization [facility] Address [address] [place] [address]. [place] [address] Care Team Providers Care Pipe Fitter Ammonia Name Role Phone Soledad Lucas MD Primary Care Provider [phone] Reason for Visit * Reason Comments Mouth/Lip Problem pt. woke up with swo llen lip Encounter Details Date Type Department Care Team (Latest Contact Info) Description 10/25/2021 1:30 PM CDT Office Visit [facility] Medical Group Multispecialty Care - [place] [address] [address] [place] [address] Soledad Lucas MD [address] [place] [id number] Mouth/Lip Problem (pt. woke up with swollen [...] Written by the doctors and editors at [facility] What are MARJAN inhibitors???--??MARJAN inhibitors are [...] doctor. You might need to see an forensic identification specialist, because there may be another reason [...] process is complete. This topic retrieved from [employer] on: Jul 13, 2021. Topic 474137 Version 1.0 Release: 29.5.2 - C29.340 ?2020??[employer] and/or its affiliates.??All rights reserved. Consumer Information [...] of this information is governed by the [employer] End User License Agreement, available at https://www.[employer]/en/solutions/Prompt.ly/about/aleks.The use of [employer] content is governed by the [employer] Terms of Use. ??2020 [employer]. All rights reserved. Copyright ?2020??[employer] and/or its affiliates.??All rights reserved. documented in this encounter Progress Notes * Soledad Lucas MD - 10/25/2021 1:30 PM CDTSummary: Acute visit notes Images from the original note were not included. Internal Medicine Outpatient Progress Note CC: Mouth/Lip Problem (pt. woke up with swollen lip) HPI: Juliet Stout is a 60-year-old -[place] male who presents for an acute visit [...] 1 each 0 ??? vitamin D2, ergocalciferol, [address] UNITS capsule Take 1 capsule (50,000 Units [...] was at least in part performed using Bill the Butcher and there may be some inherent flaws in this tree climber due to the nature of this program. Soledad Lucas MD Internal Medicine [facility], [facility]. documented in this encounter Plan of Treatment Upcoming Encounters Date Type Department Care Team (Late st Contact Info) Description 08/19/2024 9:00 AM CALCULATION CLERK [facility] - [place] [address] [address] [place] [address] Soledad Lucas MD [address] [place] [address] 157 [place] [address] 12/16/2024 10:40 AM CDT [facility] 3 [facility], [address] [place] [phone] Ramsey Oakley MD 3 [facility] [address] [place] [address] documented as of this encounter Visit Diagnoses [...] Depression Total Score: 1 09/29/19 10:03 AM CALCULATION CLERK documented as of this encounter Care Teams Pipe Fitter Ammonia Relationship Specialty Start Date End Date Soledad Lucas MD [address] [address] PCP - General INTERNAL MEDICINE 09/29/21 documented as of this encounter
--- OUTSIDE RECORDS SUMMARY | 2024-08-03 05:06 | XMS_ITS | Encounter Summary ---
Author Organization [facility] Address [address] [place] [address]. [place], [place] [address] [place] [address] Care Team Providers Care Bullet Slug Casting Machine Operator Name Role Phone , Generic Conversion Primary Care Provider Unavailable Md Generic Conversion Primary Care Provider Unavailable Encounter Details Date Type Department Care Team (Latest Contact Info) Description 01/08/2012 Abstract [facility] Medical Group Social History Tobacco [...] st Contact Info) Description 08/19/2024 9:00 AM POT TENDER Office Visit [facility] Multispecialty Care - [place] [address] [address] [place] [address] Soledad Lucas MD [address] [place] [address] 12/16/2024 10:40 AM CDT Office Visit [facility] Medical [facility] Multispecialty [facility] - [address], [address] [place] [address] Ramsey Oakley MD [address] [place] [address] [address] [place] [address] documented as of this encounter Visit Diagnoses Not on filedocumented in this encounter Care Teams Bullet Slug Casting Machine Operator Relationship Specialty Start Date End Date Danica Fish Conversion, PCP - General 02/15/12 Danica Fish Conversion, PCP - General 10/21/11 documented as of this encounter
--- OUTSIDE RECORDS SUMMARY | 2024-08-03 05:06 | XMS_ITS | Encounter Summary ---
Author Organization [facility] Address [address] [place] [address]. [place], [place] [address] [place] [address] Care Team Providers Care Supervisor Fish Bait Processing Name Role Phone Soledad Lucas MD Primary Care Provider [phone] Reason for Visit * Reason Onset Date Comments Appointment Request 10/19/2021 Barbie stress Encounter Details Date Type Department Care Team ([facility] Contact Info) Description 10/19/2021 Telephone [facility] [address] Faby Yu RMA Appointment Request (Barbie stress) [...] Coronavirus/COVID-19? No / Unsure 10/13/2021 9:45 AM RN HEART documented as of this encounter Progress Notes * GLORIA Samuels - 10/19/2021 3:40 PM CDT Left message on for patient to schedule Barbie Stress per Dr Soledad Lucas documented in this encounter Plan of Treatment Upcoming Encounters Date Type Department Care Team (Late st Contact Info) Description 08/19/2024 9:00 AM RN HEART [facility] - [place] [address] [address] [address] [place] [address] Soledad Lucas MD [address] [place] [address] 12/16/2024 10:40 AM CDT [facility] - [facility] [address] [facility] [address] [place] [address] Ramsey Oakley MD [address] [facility] [address] [place] [address] documented as of this encounter Visit Diagnoses Not on filedocumented in this encounter Additional Health Concerns Assessment Noted Time PHQ-9 Depression Total Score: 1 09/29/19 10:03 AM RN HEART documented as of this encounter Care Teams Supervisor Fish Bait Processing Relationship Specialty Start Date End Date Soledad Lucas MD [address] [place] [address] PCP - General INTERNAL MEDICINE 09/29/21 documented as of this encounter
--- OUTSIDE RECORDS SUMMARY | 2024-08-03 05:06 | XMS_ITS | Encounter Summary ---
Author Organization [facility] Address [address] [place] [address]. [place], [place] [address] [place] [address] Care Team Providers Care Reference Archivist Name Role Phone Md, Generic Conversion Primary Care Provider Unavailable , Generic Conversion Primary Care Provider Unavailable Encounter Details Date Type Department Care Team (Late st Contact Info) Description 10/21/2011 Abstract [facility] [address] [place] [address] Jennifer Bustillos, CHEF BROILER OR FRY [address] [facility] [address] [place] [address] Social History Tobacco Use Types Packs/Day Years [...] st Contact Info) Description 08/19/2024 9:00 AM GEAR GENERATOR SET UP OPERATOR Office Visit [facility] Multispecialty [facility] Emergency Department - [place] [address] [address] [place] [address] Soledad Lucas MD [address] [place] [address] [address] [place] [address] 12/16/2024 10:40 AM CDT Office Visit [facility] Medical [facility] Multispecialty [facility] Emergency Department - [address] [place] [address] Ramsey Oakley MD [address] [facility] [address] [place] [address] documented as of this encounter Visit Diagnoses Diagnosis Injury, other and unspecified, knee, leg, ankle, and foot documented in this encounter Care Teams Reference Archivist Relationship Specialty Start Date End Date Md Generic Conversion, PCP - General 02/15/12 Md Generic Conversion, PCP - General 10/21/11 documented as of this encounter
--- OUTSIDE RECORDS SUMMARY | 2024-08-03 05:06 | XMS_ITS | Encounter Summary ---
Author Organization [facility] Address [address] [place] [address]. [place], [place] [address] [place] [address] Care Team Providers Care Periodicals Clerk Name Role Phone Soledad Lucas MD Primary Care Provider [phone] Reason for Visit * Reason Onset Date Comments Follow Up Call 10/25/2021 Encounter Details Date Type Department Care Team (Late st Contact Info) Description 10/25/2021 Telephone [facility] Medical Group Multispecialty Care - [place] [address] [address] [place] [address] Soledad Lucas MD [address] [place] [address] [address] [place] [address] Follow Up Call Social History [...] Coronavirus/COVID-19? No / Unsure 10/13/2021 9:45 AM PRODUCT SAFETY LEAD documented as of this encounter Progress Notes * Soledad Lucas MD - 10/25/2021 10:20 AM CDT Drug reaction to lisinopril HTCZ. Coming in for acute visit. Soledad Lucas MD Internal Medicine [facility], [facility]. documented in this encounter Plan of Treatment Upcoming Encounters Date Type Department Care Team (Late st Contact Info) Description 08/19/2024 9:00 AM PRODUCT SAFETY LEAD [facility] [place] [address] [address] [place] [address] Soledad Lucas MD [address] [address] 12/16/2024 10:40 AM CDT [facility] [address] [facility] [place] [address] Ramsey Oakley MD [address] [facility] [address] [place] [address] documented as of this encounter Visit Diagnoses Not on filedocumented in this encounter Additional Health Concerns Assessment Noted Time PHQ-9 Depression Total Score: 1 09/29/19 22 10:03 AM PRODUCT SAFETY LEAD documented as of this encounter Care Teams Periodicals Clerk Relationship Specialty Start Date End Date Soledad Lucas MD [address] [facility] [address] [place] [address] PCP - General INTERNAL MEDICINE 09/29/21 documented as of this encounter
--- OUTSIDE RECORDS SUMMARY | 2024-08-03 05:06 | XMS_ITS | Encounter Summary ---
Author Organization [facility] Address [address] [place] [address]. [place], [place] [address] [place] [address] Care Team Providers Care Hr Consultant Name Role Phone , Generic Conversion Primary Care Provider Unavailable , Generic Conversion Primary Care Provider Unavailable , Generic Conversion Primary Care Provider Unavailable Encounter Details Date Type Department Care Team (Late st Contact Info) Description 05/26/2008 Emergency [facility] [place] [address] Yoly Avila MD Social History [...] (Late Contact Info) Description 08/19/2024 9:00 AM EMERGENCY DISPATCHER Office Visit [facility] Medical [facility] Multispecialty Care - [place] [address] [address] [place] [address] Soledad Lucas MD [address] [place] [address] 157 [place] [address] 12/16/2024 10:40 AM CDT Office Visit [facility] Mult[facility]pecialty [facility] - [facility] [address] [facility], [address] [place] [address] Ramsey Oakley MD [address] [address] documented as of this encounter Visit Diagnoses Not on filedocumented in this encounter Care Teams Hr Consultant Relationship Specialty Start Date End Date Md Generic Conversion, PCP - General 02/15/12 Md Generic Conversion, PCP - General 10/21/11 Md Generic Conversion, PCP - General 08/04/10 documented as of this encounter
--- OUTSIDE RECORDS SUMMARY | 2024-08-03 05:06 | XMS_ITS | Encounter Summary ---
Author Organization [facility] Address [address] [place] [address]. [place], [place] [address] [place] [address] Care Team Providers Care Route Vending Machine Servicer Name Role Phone Md, Generic Conversion Primary Care Provider Unavailable , Generic Conversion Primary Care Provider Unavailable Md, Generic Conversion Primary Care Provider Unavailable Encounter Details Date Type Department Care Team (Late st Contact Info) Description 07/29/2008 Emergency [facility] [place] [address] Stepan Leon MD [address] [place] [address] Social History Tobacco Use Types Packs/Day Years [...] st Contact Info) Description 08/19/2024 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 Office Visit [facility] Medical Group Multispecialty Care - [place] [address] [address] [place] [address] Soledad Lucas MD [address] [place] [address] 157 [place] [address] 12/16/2024 10:40 AM CDT Office Visit [facility] Medical Group Multispecialty Care - [facility] [address] [facility] [place] [address] Ramsey Oakley MD 3 [facility] [address] [place] [address] documented as of this encounter Visit Diagnoses Not on filedocumented in this encounter Care Teams Route Vending Machine Servicer Relationship Specialty Start Date End Date Md Generic Conversion, PCP - General 02/15/12 Md Generic Conversion, PCP - General 10/21/11 Md Generic Conversion, PCP - General 08/04/10 documented as of this encounter
--- OUTSIDE RECORDS SUMMARY | 2024-08-03 05:06 | XMS_ITS | Encounter Summary ---
Author Organization [facility] Address [address] [place] [address] [address] Care Team Providers Care Early Childhood Worker Name Role Phone Soledad Lucas MD Primary Care Provider [phone] Reason for Visit * Reason Onset Date Comments Question 10/01/2021 Encounter Details Date Type Department Care Team (Late st Contact Info) Description 10/01/2021 Telephone [facility] Medical Group Multispecialty Care - [address] [place] [address] Soledad Lucas MD [address] [place] [address] 157 [place] [address] Question Social History Tobacco Use [...] Coronavirus/COVID-19? No / Unsure 09/29/2021 8:43 AM REGISTERED NURSES documented as of this encounter Progress Notes * Soledad Lucas MD - 10/01/2021 2:04 PM CST I called patient. All questions answered. STERED NURSES * Stewart Lemus - 10/01/2021 1:18 PM CST Pt called and had question about his visit. Please call patient when you get a chance. STERED NURSES documented in this encounter Plan of Treatment Upcoming Encounters Date Type Department Care Team (Late st Contact Info) Description 08/19/2024 9:00 AM REGISTERED NURSES Office Visit [facility] Multispecialty Care - [place] [address] [address] [place] [address] [place] [address] [place] [address] 12/16/2024 10:40 AM CDT Office Visit [facility] Multispecialty [facility] 3 [facility] [place] [address] Ramsey Oakley MD 3 [facility] [address] [place] [address] documented as of this encounter Visit Diagnoses Not on filedocumented in this encounter Additional Health Concerns Assessment Noted Time PHQ-9 Depression Total Score: 1 09/29/19 10:03 AM REGISTERED NURSES documented as of this encounter Care Teams Early Childhood Worker Relationship Specialty [place] [address] [place] [address] PCP - General INTERNAL MEDICINE 09/29/21 documented as of this encounter
--- OUTSIDE RECORDS SUMMARY | 2024-08-03 05:06 | XMS_ITS | Encounter Summary ---
Author Organization [facility] Address [address] [place] [address]. [place], [place] [address] [place] [address] Care Team Providers Care Technical Service Specialist Name Role Phone Soledad Lucas MD Primary Care Provider [phone] Encounter Details Date Type Department Care Team [...] st Contact Info) Description 08/19/2024 9:00 AM CAN FEEDER Office Visit [facility] Medical Group Multispecialty Care - [place] [address] [address] [place] [address] Soledad Lucas MD [address] [place] [address] [address] [place] [address] 12/16/2024 10:40 AM CDT Office Visit [facility] Medical Group Multispecialty Care - [facility] 3 [facility] [place] [address] Ramsey Oakley MD 3 [facility] [address] [place] [address] documented as of this encounter Visit Diagnoses Not on filedocumented in this encounter Additional Health Concerns Assessment Noted Time PHQ-9 Depression Total Score: 1 09/29/19 22 10:03 AM CAN FEEDER documented as of this encounter Care Teams Technical Service Specialist Relationship Specialty Start Date End Date Soledad Lucas MD [address] [address] PCP - General INTERNAL MEDICINE 09/29/21 documented as of this encounter
--- OUTSIDE RECORDS SUMMARY | 2024-08-03 05:06 | XMS_ITS | Encounter Summary ---
Author Organization [facility] Address [address] [place] [address]. [place], [place] [address] [place] [address] Care Team Providers Care General Manager [employer] Name Role Phone Md, Generic Crescencio STAPLETON Primary Care Provider Unavailable Encounter Details Date Type Department Care Team (Latest Contact Info) Description 05/04/2012 Abstract [facility] Medical Group Social History Tobacco Use [...] Contact Info) Description 08/19/2024 9:00 AM FAMILY WORKER Office Visit [facility] Multispecialty Care - [place] [address] [address] [place] [address] Soledad Lucas MD [address] [place] [address] 12/16/2024 10:40 AM CDT Office Visit [facility] Multispecialty Care - [facility] [address] [facility], [address] [place] [address] Ramsey Oakley MD 3 [facility] [address] [place] [address] documented as of this encounter Visit Diagnoses Not on filedocumented in this encounter Care Teams General Manager [employer] Relationship Specialty Start Date End Date Danica Stapleton Conversion, PCP - General 02/15/12 documented as of this encounter
--- OUTSIDE RECORDS SUMMARY | 2024-08-03 05:06 | XMS_ITS | Encounter Summary ---
Author Organization [facility] Address [address] [place] [address]. [place], [place] [address] [place] [address] Care Team Providers Care Ferryboat Pilot Name Role Phone Soledad Lucas MD Primary Care Provider [phone] Encounter Details Date Type Department Care Team (Latest Contact Info) Description 09/29/2021 - 09/29/2021 11:59 PM WELDING ROD COATER Hospital Encounter [facility] [address] [place] [address] Soledad Lucas MD [address] [address] Discharge Disposition: Home or Self [...] Coronavirus/COVID-19? No / Unsure 09/29/2021 8:43 AM WELDING ROD COATER documented as of this encounter Medications at [...] 20 tablet 09/29/2021 2 vitamin D2, ergocalciferol, 65136 UNITS capsuleIndications :Vitamin D deficiency Take 1 capsule (50,000 Units total) by mouth weekly. 12 capsule 1 09/29/2021 3 documented as of this encounter Plan of Treatment Upcoming Encounters Date Type Department Care Team (Late st Contact Info) Description 08/19/2024 9:00 AM WELDING ROD COATER [facility] [place] [address] [address] [place] [address] Soledad Lucas MD [address] [place] [address] [address] [place] [address] 12/16/2024 10:40 AM CDT [facility] - [facility] [address] [facility] [place] [address] Ramsey Oakley MD 3 [facility] [address] [place] [address] documented as of this encounter Visit Diagnoses Not on filedocumented in this encounter Additional Health Concerns Assessment Noted Time PHQ-9 Depression Total Score: 1 09/29/19 22 10:03 AM WELDING ROD COATER documented as of this encounter Care Teams Ferryboat Pilot Relationship Specialty Start Date End Date Soledad Lucas MD [address] [address] PCP - General INTERNAL MEDICINE 09/29/21 documented as of this encounter
--- OUTSIDE RECORDS SUMMARY | 2024-08-03 05:12 | XMS_ITS | Continuity of Care Document ---
Author Organization [facility] Address [address] [place] [address] [place] [address] Phone Care Team Providers Care Power Generating Plant Operator Name Role Phone Lei White MD Unavailable Unavailable Allergies, Adverse Reactions, Alerts Substance Reaction Status Criticality No Known Allergies Active No Inform ation Medications Medication Instructions Dosage Effective Dates (start - stop) Status Comments Norvasc 10 mg tablet take 1 tablet by oral route every day 10 MG - Active hydrocodone 5 mg-acetaminophen 325 mg tablet take 1 tablet by oral route every 6 hours as needed for pain as needed 1.00 tablet - Active PRN for pain, avoid driving or operate machines Procedures Procedure Date OFFICE/OUTPATIENT VISIT, EST OFFICE/OUTPATIENT [...] Diagnoses Date Provider Providers Copied on Encounter [facility] [place], [address], [place], [address], tel:[phone] [facility] [place] No Information 2 Christopher Montes [address], [place], [address]. [phone] OFFICE/OUTPA TIENT VISIT, [facility], [address], [place], [address], tel:[phone] [facility] Medicine HTN (chief complaint) BPH1 (chief complaint) pain (chief complaint) BPH w/ lower urinary tract symptomEssential (primary) hypertensionPain in left kneeEncounter for screening for malignant neoplasm of colon 1 Christopher Montes [address], [place], [address]. [phone] OFFICE/OUTPA TIENT VISIT, [facility], [address], [place], [address], [place] tel:[phone] [facility] Medicine pain (chief complaint) shoulder pain1 (chief complaint) Pain in left kneePain in left shoulder 1 Christopher Montes [address], [place], [address]. tel: [phone] OFFICE/OUTPA TIENT VISIT, [facility], [address], [place], [address], [place] tel:[phone] [facility] [place] pain (chief complaint) BPH1 (chief complaint) BPH w/ lower urinary tract symptomPain in left knee 1 Christopher Montes [address], [place], [address]. tel:[phone] PREV VISIT, EST, AGE 40-64 [facility] [place], [address], [place], [address], [place] tel:[phone] [facility] Medicine physical (chief complaint) Encounter for general adult medical exam w abnormal findingsMuscle spasm of backEssential (primary) hypertensionBPH w/ lower urinary tract symptomPain in left kneeRash 1 Christopher Montes [address], [place], [address]. tel:[phone] OFFICE/OUTPA TIENT VISIT, [facility], [address], [place], [address], [place] tel:[phone] [facility] [place] knee pain1 (chief complaint) ear (chief complaint) Chronic pain syndromeOtalgia, right ear 1 Christopher Montes [address], [place], [address]. tel:[phone] OFFICE/OUTPA TIENT VISIT, [facility], [address], [place], [address], [place] tel:[phone] [facility] [place] HTN (chief complaint) BPH1 (chief complaint) knee pain1 (chief complaint) Essential (primary) hypertensionBPH w/ lower urinary tract symptomPain in left kneeEncounter for screening for malignant neoplasm of colon 1 Christopher Montes [address], [place], [address]. tel:[phone] OFFICE/OUTPA TIENT VISIT, EST [facility] [place], [address], [place], [address], [place] tel:[phone] [facility] [place] knee pain1 (chief complaint) Pain in left kneeChronic pain syndrome 1 Christopher Montes [address], [place], [address]. tel:[phone] OFFICE/OUTPA TIENT VISIT, [facility], [address], [place], [address], [place] tel:[phone] [facility] [place] HTN (chief complaint) knee pain1 (chief complaint) Essential (primary) hypertensionChronic pain syndrome 0 White Lei. [address], [place], [address]. tel:[phone] OFFICE/OUTPA TIENT VISIT, [facility], [address], [place], [address], [place] tel:[phone] [facility] [place] knee pain1 (chief complaint) Chronic pain syndromePain in left knee 0 Christopher Odom. [address], [place], [address]. tel:[phone] OFFICE/OUTPA TIENT VISIT, [facility], [address], [place], [address], [place] tel:[phone] [facility] [place] physical (chief complaint) Encounter for general adult medical exam w abnormal findingsBPH w/ lower urinary tract symptomEssential (primary) hypertensionChronic pain syndrome 0 White Lei. [address], [place], [address]. tel:[phone] OFFICE/OUTPA TIENT VISIT, [facility], [address], [place], [address], [place] tel:[phone] [facility] [place] BPH (chief complaint) gERD1 (chief complaint) knee pain1 (chief complaint) Chronic pain syndromeBPH w/ lower urinary tract symptomAbnormal weight loss 0 Christopher Lei. [address], [place], [address]. tel:[phone] OFFICE/OUTPA TIENT VISIT, [facility], [address], [place], [address], [place] tel:[phone] [facility] [place] knee pain (chief complaint) penile lesion1 (chief complaint) Chronic pain syndromeDisorder of penis 0-202 0 Christopher Lei. [address], [place], [address]. tel:[phone] OFFICE/OUTPA TIENT VISIT, EST [facility] [place], [address], [place], [address], [place] tel:[phone] [facility] Medicine HTN (chief complaint) knee pian1 (chief complaint) Essential (primary) hypertensionChronic pain syndrome December-0 0 Christopher Odom. [address], [place], [address]. tel:[phone] Referring Provider: Lei White, [address], [place], [address]. tel:[phone] OFFICE/OUTPA TIENT VISIT, EST [facility] [place], [address], [place], [address], [place] tel:[phone] [facility] [place] pain1 (chief complaint) weight loss1 (chief complaint) Chronic pain syndromeAbnormal weight loss Oct-2 0 Christopher Odom. [address], [place], [address]. tel:[phone] Referring Provider: Inessa [address], [place], [address]. tel:[phone] PREV VISIT, EST, AGE 40-64 [facility] [place], [address], [place], [address], [place] tel:[phone] [facility] Medicine BPH1 (chief complaint) physical (chief complaint) Encounter for general adult medical exam w abnormal findingsBPH w/ lower urinary tract symptomEssential (primary) hypertensionChronic pain syndrome Edy-0 0 Christopher Odom. [address], [place], [address]. tel:[phone] Referring Provider: Inessa [address], [place], [address]. tel:[phone] OFFICE/OUTPA TIENT VISIT, EST [facility] [place], [address], [place], [address], [place] tel:[phone] [facility] Medicine pain1 (chief complaint) HTN (chief complaint) urinary1 (chief complaint) weight loss1 (chief complaint) Essential (primary) hypertensionBPH w/ lower urinary tract symptomChronic pain syndromeAbnormal weight loss 9 Christopher Montes [address], [place], [address]. tel:[phone] Referring Provider: In[address], [place], [address]. tel:[phone] OFFICE/OUTPA TIENT VISIT, [facility], [employer] [address], [place], [address], tel:[phone] [facility] [place] urinary1 (chief complaint) knee pian1 (chief complaint) HTN (chief complaint) weight loss1 (chief complaint) Abnormal weight lossBPH w/ lower urinary tract symptomEssential (primary) hypertensionPain in left knee Apr- 9 [address], [place], [address]. tel:[phone] Referring Provider: In[address], [place], [address]. tel:[phone] OFFICE/OUTPA TIENT VISIT, [facility], [employer] [address], [place], [address], [place] tel:[phone] [facility] [place] knee pain1 (chief complaint) HTN (chief complaint) Essential (primary) hypertensionBPH w/ lower urinary tract symptomPain in left knee [address], [place], [address]. tel:[phone] Referring Provider: Inessa [address], [place], [address]. tel:[phone] OFFICE/OUTPA TIENT VISIT, [facility], [address], [place], [address], [place] tel:[phone] [facility] [place] knee pain1 (chief complaint) neck pain1 (chief complaint) urinary urgency1 (chief complaint) HTN (chief complaint) Essential (primary) hypertensionChronic pain syndromeBPH w/ lower urinary tract symptomPain in left knee 0 9 White Lei. [address], [place], [address]. [phone] Referring Provider: [address], [place], [address]. tel:[phone] OFFICE/OUTPA TIENT VISIT, [facility], [address], [place], [address], tel:[phone] [facility] [place] STD1 (chief complaint) urine1 (chief complaint) chronic pain (chief complaint) HTN1 (chief complaint) High risk bisexual behaviorBPH w/ lower urinary tract symptomChronic pain syndromeEssential (primary) hypertension Dec-2 0201 8 Christopher Montes [address], [place], [address]. [phone] Referring Provider: [address], [place], [address]. tel:[phone] OFFICE/OUTPA TIENT VISIT, [facility], [address], [place], [address], [place] tel:[phone] [facility] [place] urinary urgency1 (chief complaint) HTN (chief complaint) chronic pain1 (chief complaint) Body mass index (BMI) 32.0-32.9, adultEssential (primary) hypertensionBPH w/ lower urinary tract symptomChronic pain syndrome 8 [address], [place], [address]. tel:[phone] Referring Provider: In[address], [place], [address]. tel:[phone] PREV VISIT, NEW, AGE 40-64 [facility] [place], [address], [place], [address], [place] tel:[phone] [facility] [place] PHysical (chief complaint) Encounter for general adult medical exam w abnormal findingsEssential (primary) hypertensionBPH w/ lower urinary tract symptomChronic pain syndrome 0 2201 8 Christopher Montes [address], [place], [address]. [phone] Referring Provider: [place], [address]. tel:[phone] Family History Family Member Type Diagnosis Age At Onset Sister Problem (finding) Diabetes mellitus Mother Problem (finding) breast [place] 55 Father Problem (finding) prostate CA 93 Payers Payer name Insurance type Covered republican ID Authoriza tion(s) No Information Social History [...] Special diet education compl eted Referral Ordered: Physical Therapy (related to Muscle spasm of back) ordered Referral Ordered: [facility] -[facility] : Urology (related to BPH w/ lower urinary tract symptom) ordered Referral Ordered: COLONOSCOPY AND BIOPSY ordered Referral Referred To: Checo Leonard [address] [facility]
[address] [place], [place], [phone] Ordered: Referrals: Allopathic & Osteopathic Physicians : [...] Mccrary [address] [place], [place] [id number] Ordered: Referrals: Allopathic & Osteopathic Physicians : [...] Urology. Evaluate and treat ordered Referral Ordered: Pain Medicine (related to Chronic pain syndrome) ordered Referral Ordered: CHRIS COLLINS -[facility] : Surgery (related to BPH w/ lower urinary tract symptom) ordered Referral Referred To: CHRIS COLLINS [address] [place], [place], [phone] Ordered: Referrals: Allopathic & Osteopathic Physicians : [...] BPH with LUTS. Pt has yamila with [facility] urology in January. Pt denies any [...] denies any dysuria, pt doing ok currently BPH Additional infor mation: Pt has BPH Pt is on flomax Pt sees urology ,PT denies any urinary symptoms. gERD1 Pt denies anymor e weight loss Pt denies any GI issue .Pt is noncompliant with endoscopy knee pain1 Pt c/o chronic b ilateral knee pain with swelling PT denies any redness or warmth. His left knee was drained by ortho recently. Pt needs norco refill knee pain Location: knee. Additional information: Pt has chronic knee pain Pt [facility] He was told that he may need knee replacement soon, Pt failed NSAID and ultram Pt takes norco PRN for pain. Pt denies any swelling or redness or warmth of knee. penile lesion1 Pt notices sever al white dry spot on head of penis for one week. pt denies any pain or any bleeding or any penile discharge. Pt denies any drainage. Pt denies any itching. Pt denies any penile trauma HTN Pt takes norvasc and he needs refills. He states that his bp is around 130/70 at home Pt denies any swelling knee pian1 Pt has chronic k nee pain Pt is seeing ortho at [facility]. He was told that he may need knee replacement soon, Pt failed NSAID and ultram Pt takes norco PRN for pain. Pt denies any swelling or redness or warmth of knee pain1 Pt c/o chronic l eft knee pain with swelling Pt saw [facility]o [facility] and he had left knee drained recently [...] virus outbreak. Pt denies any abd pain BPH1 physical Pt needs annual physical, His bp [...] better now. Pt denies any other complaints pain1 Pt has severe le ft knee [...] Pt has not heard from ortho at [facility] yet. pt needs a note from me stating that he can work for 10 hours shift pt works at [email or web address] and he has stand on his feet for 10 hours each shift Pt has some knee pain and he sometimes has to leave early due to knee pain. but majority of time he can work for 10 hours. He needs clearance to work for 10 hours shift urinary1 Pt has urinary f requency and urgency. pt states that he wakes up several times at night to urinate. Pt denies any dribbling. Pt denies any difficulty with urination. Pt still has not seen urology yet. Pt is noncompliant. Pt has yamila with urology tomorrow HTN Pt takes Norvasc His bp is high PT denies any chest pain or headache weight loss1 Pt has not lost more weight since last time Pt has good appetite pt has yamila with GI next week Pt denies any early satiety, nausea, vomiting, bloating urinary1 Pt has urinary f requency and urgency. pt states that he wakes up several times at night to urinate. Pt denies any dribbling. Pt denies any difficulty with urination. Pt still has not seen urology yet. Pt is noncompliant. Pt told me urology never contacted him knee pian1 Pt has severe le ft [...] daily HTN Pt has HTN Pt ta kes norvasc and his BP is borderline Pt denies any chest pain. Pt denies any headache weight loss1 Pt has 20 pounds during last 3 months Pt states that he is not trying very hard to lose weight. Pt states that he only been eating one meal per day to try to lose some weight but he is not exercising. Pt denies any early satiety, nausea, vomiting, bloating, abd pain, diarrhea, blood in stool, appetite loss. knee pain1 Pt c/o persisten t left knee pain with swelling Pt denies any injury Pt failed NSAID Pt is seeing ortho who drained his left knee recently but the swelling resumed shortly after the drainage Pt c/o persistent left knee sharp pain Pt denies any redness or warmth. MRI of left knee was denied by insurance HTN Pt takes norvasc and his BP is stable, Pt denies any swelling neck pain1 Pt has chronic n erika [...] went to ER two weeks ago at [place] and he had large amount of fluid [...] sex partners .Pt denies any penile discharge. urine1 Pt has urinary u rgency and frequency and also frequent urination at night. Pt denies any difficulty initiating urine. Pt received a call from urology but he has not called back to make appointment yet. 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 The patient has degenerative disc disease on x-ray. Patient denies any injury. The patient denies any loss of bowel bladder control. The patient denies any radiculopathy. Patient failed tramadol and NSAID. Patient has 6/10 pain daily. Pt has mild sciatica symptoms HTN1 Patient had bord josé hypertension. Patient denies any chest pain or headache. chronic pain1 Pt has chronic n erika [...] to BPH w/ lower urinary tract symptom Increase activity. Related to Es sential (primary) hypertension Follow a low sodium diet. Relate d to Essential (primary) hypertension Special diet education Related t o Body mass index (BMI) 30.0-30.9, adult Special diet education Related t o Body mass index (BMI) 32.0-32.9, adult Increase activity. Related to Es sential (primary) hypertension Follow a low sodium diet. Relate d to Essential (primary) hypertension Special diet education Related t o Body mass index (BMI) 32.0-32.9, adult Special diet education Related t o Body mass index (BMI) 32.0-32.9, adult Increase activity. Related to Es sential (primary) hypertension Follow a low sodium diet. Relate d [...]
== END 2024-07-27 09:30 | disposition home or self-care (01) ==
PROVIDERS: Emergency Medicine; Emergency Provider Emergency Medicine; PCP Internal Medicine
DX: J45.901 Unspecified asthma with (acute) exacerbation (principal); I10 Essential (primary) hypertension; Z96.652 Presence of left artificial knee joint; R94.31 Abnormal electrocardiogram [ECG] [EKG]
CPT/HCPCS: 36415; 71046; 80053; 83690; 84484; 85025; 85610; 85730; 93005; 94640; 96374; 99284; J2919

== ENCOUNTER 2024-08-19 10:52 | Outpatient (CLI) | payer MEDICARE, SELFPAY ==
--- NOTE | ~2024-08-19 | XR_ITS ---
[id number] Ordering provider: Soledad Lucas, History: . cervical radiculopathy, chronic neck pain . Comparison: None. FINDINGS: VERTEBRAL BODIES: Normal height and alignment. No visible fracture or subluxation. The dens is intact . Degenerative changes of the spine. DISK SPACES: Narrowing of the disc C3-C4 and C5-C6. Multilevel facet joint disease. Multilevel uncove rtebral joint osteoarthritic changes. PARASPINOUS SOFT TISSUES: No prevertebral soft tissue swelling. IMPRESSION: No acute osseous abnormality cervical spine. Multilevel degenerative disc disease. Reviewed, dictated and finalized at location A. MANAGEMENT OFFICER
== END 2024-08-19 10:53 | disposition home or self-care (01) ==
PROVIDERS: PCP Internal Medicine; Visit Provider Internal Medicine
DX: M54.12 Radiculopathy, cervical region (principal); G89.29 Other chronic pain; M50.30 Other cervical disc degeneration, unspecified cervical region
CPT/HCPCS: 72040

== ENCOUNTER 2024-11-16 07:20 | Emergency (ER) | payer MEDICARE, SELFPAY ==
--- NOTE | ~2024-11-16 | XR_ITS ---
EXAM/PROCEDURE: XR chest 1V portable - 11/16/2024 08:00 CDT HISTORY: 63 years old Male with dyspnea, asthma TECHNIQUE: Two view(s) of the chest. COMPARISON: None available. FINDINGS: LUNGS/ PLEURA: Lungs are hyperinflated with flattening of the diaphragm and increased lung markings i n both upper lobes, findings seen with COPD. No focal consolidation. No appreciable pneumothorax or l arge pleural effusion. HEART/ MEDIASTINUM: Heart appears normal in size. BONES: No acute osseous abnormality. OTHER: Visualized upper abdomen is unremarkable. IMPRESSION: No acute process. COPD. Reviewed, dictated and finalized at location A. IMPRESSION: No acute process. COPD.
--- OUTSIDE RECORDS SUMMARY | 2024-11-16 07:23 | XMS_ITS | Continuity of Care Document ---
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, [address] [place], [address], [place] [phone] [facility] No Information 2 Christopher Montes [address], [place], [place], [address] , [place]. [phone] OFFICE/OUTPA TIENT VISIT, [facility], [address] [place], [place], [address], [place] [phone] [facility] HTN (chief complaint) BPH1 (chief complaint) pain (chief complaint) BPH w/ lower urinary tract symptomEssential (primary) hypertensionPain in left kneeEncounter for screening for malignant neoplasm of colon 1 Christopher Montes [address], [place], [place], [address] , [place]. tel:[phone] OFFICE/OUTPA TIENT VISIT, [facility], [address] [place], [address], [place] tel:[phone] [facility] pain (chief complaint) shoulder pain1 (chief complaint) Pain in left kneePain in left shoulder 1 Christopher Montes [address], [place], [place], [address] , [place]. [phone] OFFICE/OUTPA TIENT VISIT, [facility], [address] [place], [address], [place] tel:[phone] [facility] pain (chief complaint) BPH1 (chief complaint) BPH w/ lower urinary tract symptomPain in left knee 1 Christopher Montes [address], [place], [place], [address] , [place]. tel:[phone] PREV VISIT, EST, AGE 40-62 [facility], [address], [place], [place], [address], [place] tel:[phone] [facility] physical (chief complaint) Encounter for general adult medical exam w abnormal findingsMuscle spasm of backEssential (primary) hypertensionBPH w/ lower urinary tract symptomPain in left kneeRash 1 Christopher Montes [address], [place], [place], [address] , [place]. tel:[phone] OFFICE/OUTPA TIENT VISIT, [facility], [address], [place], [place], [address], [place] tel:[phone] [facility] knee pain1 (chief complaint) ear (chief complaint) Chronic pain syndromeOtalgia, right ear 1 Christopher Montes [address], [place], [place], [address] , [place]. tel:[phone] OFFICE/OUTPA TIENT VISIT, [facility], [address], [place], [place], [address], [place] tel:[phone] [facility] HTN (chief complaint) BPH1 (chief complaint) knee pain1 (chief complaint) Essential (primary) hypertensionBPH w/ lower urinary tract symptomPain in left kneeEncounter for screening for malignant neoplasm of colon 1 Christopher Odom. [address], [place], [place], [address] , [place]. tel:[phone] OFFICE/OUTPA TIENT VISIT, [facility], [address], [place], [place], [address], [place] tel:[phone] [facility] knee pain1 (chief complaint) Pain in left kneeChronic pain syndrome 1 White Lei. [address], [place], [place], [address] , [place]. tel:[phone] OFFICE/OUTPA TIENT VISIT, [facility], [address], [place], [place], [address], [place] tel:[phone] [facility] HTN (chief complaint) knee pain1 (chief complaint) Essential (primary) hypertensionChronic pain syndrome 0 Christopher Odom. [address], [place], [place], [address] , [place]. tel:[phone] OFFICE/OUTPA TIENT VISIT, [facility], [address], [place], [place], [address], [place] tel:[phone] [facility] knee pain1 (chief complaint) Chronic pain syndromePain in left knee 0 Christopher Odom. [address], [place], [place], [address] , [place]. tel:[phone] OFFICE/OUTPA TIENT VISIT, [facility], [address], [place], [place], [address], [place] tel:[phone] [facility] physical (chief complaint) Encounter for general adult medical exam w abnormal findingsBPH w/ lower urinary tract symptomEssential (primary) hypertensionChronic pain syndrome 0 Christopher Odom. [address], [place], [place], [address] , [place]. tel:[phone] OFFICE/OUTPA TIENT VISIT, [facility], [address], [place], [place], [address], [place] tel:[phone] [facility] BPH (chief complaint) gERD1 (chief complaint) knee pain1 (chief complaint) Chronic pain syndromeBPH w/ lower urinary tract symptomAbnormal weight loss 0 Christopher Odom. [address], [place], [place], [address] , [place]. tel:[phone] OFFICE/OUTPA TIENT VISIT, [facility], [address], [place], [place], [address], [place] tel:[phone] [facility] knee pain (chief complaint) penile lesion1 (chief complaint) Chronic pain syndromeDisorder of penis Tarik- 0-202 0 Christopher Montes [address], [place], [place], [address] , [place]. [phone] OFFICE/OUTPA TIENT VISIT, [facility], [address], [place], [place], [address], [place] tel:[phone] [facility] HTN (chief complaint) knee pian1 (chief complaint) Essential (primary) hypertensionChronic pain syndrome 0 0 Christopher Montes [address], [place], [place], [address] , [place]. tel:[phone] Referring Provider: In[address], [place], [place], [address]. tel:[phone] OFFICE/OUTPA TIENT VISIT, [facility], [address], [place], [place], [address], [place] tel:[phone] [facility] pain1 (chief complaint) weight loss1 (chief complaint) Chronic pain syndromeAbnormal weight loss Oct-2 0 Christopher Montes [address], [place], [place], [address] , [place]. [phone] Referring Provider: Inessa [address], [place], [place], [address]. tel:[phone] PREV VISIT, EST, AGE 40-62 [facility], [address], [place], [place], [address], [place] tel:[phone] [facility] BPH1 (chief complaint) physical (chief complaint) Encounter for general adult medical exam w abnormal findingsBPH w/ lower urinary tract symptomEssential (primary) hypertensionChronic pain syndrome Edy-0 8 0 Christopher Montes [address], [place], [address] , [place]. tel:[phone] Referring Provider: Inessa [address], [place], [place], [address]. tel:[phone] OFFICE/OUTPA TIENT VISIT, [facility], [address], [place], [place], [address], [place] tel:[phone] [facility] pain1 (chief complaint) HTN (chief complaint) urinary1 (chief complaint) weight loss1 (chief complaint) Essential (primary) hypertensionBPH w/ lower urinary tract symptomChronic pain syndromeAbnormal weight loss 9 Christopher Odom. [address], [place], [place], [address] , [place]. tel:[phone] Referring Provider: Inessa [address], [place], [place], [address]. tel:[phone] OFFICE/OUTPA TIENT VISIT, [facility], [address], [place], [place], [address], [place] tel:[phone] [facility] urinary1 (chief complaint) knee pian1 (chief complaint) HTN (chief complaint) weight loss1 (chief complaint) Abnormal weight lossBPH w/ lower urinary tract symptomEssential (primary) hypertensionPain in left knee Sep- 9 Christopher Odom. [address], [place], [place], [address] , [place]. tel:[phone] Referring Provider: Inessa [address], [place], [place], [address]. tel:[phone] OFFICE/OUTPA TIENT VISIT, [facility], [address], [place], [place], [address], [place] tel:[phone] [facility] knee pain1 (chief complaint) HTN (chief complaint) Essential (primary) hypertensionBPH w/ lower urinary tract symptomPain in left knee 9 Christopher Odom. [address], [place], [address] , [place]. tel:[phone] Referring Provider: Inessa [address], [place], [place], [address]. tel:[phone] OFFICE/OUTPA TIENT VISIT, [facility], [address], [place], [place], [address], [place] tel:[phone] [facility] knee pain1 (chief complaint) neck pain1 (chief complaint) urinary urgency1 (chief complaint) HTN (chief complaint) Essential (primary) hypertensionChronic pain syndromeBPH w/ lower urinary tract symptomPain in left knee 9 Christopher Montes [address], [place], [address] , [place]. [phone] Referring Provider: Inessa [address], [place], [place], [address]. tel:[phone] OFFICE/OUTPA TIENT VISIT, [facility], [address] [place] [address] [place], [address], [place] tel:[phone] [facility] STD1 (chief complaint) urine1 (chief complaint) chronic pain (chief complaint) HTN1 (chief complaint) High risk bisexual behaviorBPH w/ lower urinary tract symptomChronic pain syndromeEssential (primary) hypertension 8 Christopher Montes [address], [place], [address] , [place]. [phone] Referring Provider: Inessa Kent [facility], [place], [place], [address]. tel:[phone] OFFICE/OUTPA TIENT VISIT, [facility], [address] [place], [address], [place] tel:[phone] [facility] urinary urgency1 (chief complaint) HTN (chief complaint) chronic pain1 (chief complaint) Body mass index (BMI) 32.0-32.9, adultEssential (primary) hypertensionBPH w/ lower urinary tract symptomChronic pain syndrome 8 Christopher Montes [address], [place], [address] , [place]. tel:[phone] Referring Provider: Lei White, [address], [place], [place], [address]. tel:[phone] PREV VISIT, NEW, AGE 40-64 [facility], [address], [place], [place], [address], [place] tel:[phone] [facility] PHysical (chief complaint) Encounter for general adult medical exam w abnormal findingsEssential (primary) hypertensionBPH w/ lower urinary tract symptomChronic pain syndrome 201 8 Christopher Odom. [address], [place], [place], [address] , [place]. tel:[phone] Referring Provider: Lei White, [address], [place], [place], [address]. tel:[phone] Family History Family Member Type Diagnosis Age [...] ordered Referral Referred To: Checo Leonard [address] [facility]
[address] [place], [place], [phone] Ordered: Referrals: Allopathic & Osteopathic Physicians : [...] Mccrary [address] [place], [place] [id number] Ordered: Referrals: Allopathic & Osteopathic Physicians : [...] COLLINS [address] [place], [place], [phone] Ordered: Referrals: Allopathic & Osteopathic Physicians : [...] is actually ok. Pt denies any edema BPH Pt has urinary u rgency and he denies any difficulty with frequency or dysuria or any difficulty with urination. Pt did not respond to flomax. He was referred to urologist but he is very noncompliant. He still has not followed up with [facility] urology yet pain Pt c/o chronic b [...] pain. Pt will get knee replacement soon. BPH Pt has BPH with LUTS. Pt has yamila with [facility] in January. Pt denies any dysuria, [...] for pain HTN Pt has HTn Pt ta kes norvasc and his bp is stable BPH1 Pt [...] permit HTN Pt has HTn. p ta kes norvasc and his bp is stable at home. [...] is noncompliant with endoscopy BPH Additional infor mation: Pt has BPH [...] knee pain Pt is seeing ortho at [facility]. He was told that he may need knee replacement soon, Pt failed NSAID and ultram Pt takes norco PRN for pain. Pt denies any swelling or redness or warmth of knee. knee pian1 Pt has chronic k nee pain Pt is seeing [facility]. He was told that he may need knee replacement soon, Pt failed NSAID and ultram Pt takes norco PRN for pain. Pt denies any swelling or redness or warmth of knee HTN Pt takes norvasc and he needs refills. He states that his bp is around 130/70 at home Pt denies any swelling pain1 Pt c/o chronic l eft knee [...] Pt has not heard from ortho at [facility] yet. pt needs a note from me stating that he can work for 10 hours shift pt works at [employer] and he has stand on his feet [...] went to ER two weeks ago at [facility] and he had large amount of fluid [...] pain or headache. 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 The patient [...] denies an sciatica. Pt denies any numbness urinary urgency1 Pt has urinary urgency and frequency. Pt denies any dysuria. pt denies any dribbling or difficulty with urination pt usually gets up about twice per night to urinate. Pt has not done PSA yet. Pt has not made appointment with urology yet HTN Pt has HTn lPt t akes lisinopril and he still does not know the dosage. His BP is stable PHysical Pt needs annual physical. Pt has [...] complaints Instructions Date Instruction Additional Infor dorian Follow a low sodium diet. Relate d [...]
--- OUTSIDE RECORDS SUMMARY | 2024-11-16 07:23 | XMS_ITS | Clinical Summary ---
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 Name Role Phone Unavailable Primary Care Provider Unavailabl e Allergies No known active allergies Medications No known medications Active Problems No known active problems Social History Tobacco Use Types Packs/Day Years Used Date Smoking Tobacco: Never Assessed Sex and Gender Information Value Date Recorded Sex Assigned at Not on file Legal Sex Male 5:44 PM CDT Gender Identity Not on file Sexual Orientation Not on file Last Filed Vital Signs Vital Sign Reading Time Taken Comments Blood Pressure 156/90 01/06/2022 5:57 PM CDT Pulse 86 01/06/2022 5:57 PM CDT Temperature 36.6 C (97.8 F) 01/06/2022 5:57 PM CDT Respiratory Rate 18 01/06/2022 5:57 PM CDT [...] Flex Sig/CT Colonography Q 5 years 08/14/2004 PNEUMOCOCCAL VACCINE 50+ YEARS (1 of 1 - PCV) 08/14/19 10 ZOSTER VACCINE (1 of 2) 08/14/2009 INFLUENZA VACCINE (#1) 2024 RSV VACCINE (60+ or ) (1 - 1-dose 75+ series) 08/14/2034 Insurance MEDICARE ADVANTAGE HMO
--- OUTSIDE RECORDS SUMMARY | 2024-11-16 07:23 | XMS_ITS | Clinical Summary ---
Author Organization [facility] Address [address] [place] [address] Care Team Providers Care Corrosion Control Fitter Name Role Phone Soledad Lucas MD Primary Care Provider [phone] Allergies Active Allergy Reactions Criticality Noted Date Comments Lisinopril Swelling 10/25/2021 Swollen lips Medications NEBULIZER DEVICE, DME,Indications:M oderate persistent asthma with acute exacerbation (HHS/HCC),Acute bronchitis, unspecified organism Take 1 Device by nebulization every 6 (six) hours as needed. Use for asthma attack. 1 Device 022 Active atorvastatin (LIPITOR) 40 MG tabletIndications :Mixed hyperlipidemia Take 1 tablet (40 mg total) by mouth nightly at bedtime. 90 tablet 1 025 Active cyclobenzaprine (FLEXERIL) 5 MG tabletIndications :Cervical radiculopathy,Chr onic neck pain Take 1 tablet (5 mg total) by mouth nightly as needed for Muscle Spasms. 30 tablet 2 025 Active dupilumab (DUPIXENT) 300 MG/2ML injection (PEN)Indications: Severe persistent asthma with acute exacerbation (CMS/HCC HHS/HCC) Inject 2 mLs (300 mg total) into the skin every 14 (fourteen) days. 12 mL 1 025 Active gabapentin (NEURONTIN) 300 MG capsuleIndication s:Chronic neck pain Take 1 capsule (300 mg total) by mouth 3 (three) times daily. 90 capsule 1 025 Active ipratropium-albut brenda (DUONEB) 0.5-2.5 (3) MG/3ML SolutionIndicatio ns:Severe persistent asthma with acute exacerbation (CMS/HCC HHS/HCC) Take 3 mLs by nebulization every 6 (six) hours as needed. 360 mL 11 025 Active oxyCODONE-acetami nophen (PERCOCET) 7.5-325 MG tabletIndications :Chronic Pain Take 1 tablet by mouth daily as needed for Pain. Indications: Chronic Pain 30 tablet 025 Active fluticasone propionate (FLONASE) 50 MCG/ACT nasal sprayIndications: Severe persistent asthma with acute exacerbation (CMS/HCC HHS/HCC) 2 sprays by Nasal route 2 (two) times daily. 16 g 5 025 Active azelastine (ASTELIN) 0.1 % nasal sprayIndications: Severe persistent asthma with acute exacerbation (CMS/HCC HHS/HCC) 1 spray by Nasal route 2 (two) times daily. Use in each nostril as directed 30 mL 3 025 Active dulaglutide (TRULICITY) 0.75 MG/0.5ML injectionIndicati ons:Class 1 obesity due to excess calories with serious comorbidity and body mass index (BMI) of 33.0 to 33.9 in adult,Prediabetes Inject 0.75 mg into the skin once a week. 2 mL 025 Active dulaglutide (TRULICITY) 1.5 MG/0.5ML injectionIndicati ons:Class 1 obesity due to excess calories with serious comorbidity and body mass index (BMI) of 33.0 to 33.9 in adult,Prediabetes Inject 1.5 mg into the skin once a week. 2 mL 025 Active ondansetron (ZOFRAN) 4 MG tabletIndications :Class 1 obesity due to excess calories with serious comorbidity and body mass index (BMI) of 33.0 to 33.9 in adult Take 1 tablet (4 mg total) by mouth every 8 (eight) hours as needed. 20 tablet 025 Active Blood Pressure Monitoring (BLOOD PRESSURE KIT) DeviceIndications :Primary hypertension Use daily to check Blood pressure and log. 1 each 025 Active sildenafil (VIAGRA) 50 MG tabletIndications :Erectile dysfunction, unspecified erectile dysfunction type Take 1 tablet (50 mg total) by mouth daily as needed for Erectile Dysfunction. 10 tablet 1 025 2024 Active montelukast (SINGULAIR) 10 MG tabletIndications :Severe persistent asthma with acute exacerbation (CMS/HCC HHS/HCC) Take 1 tablet (10 mg total) by mouth nightly at bedtime. 30 tablet 1 025 Active losartan (COZAAR) 100 MG tabletIndications :Primary hypertension Take 1 tablet (100 mg total) by mouth daily. 30 tablet 3 025 Active budesonide-formot brenda (SYMBICORT) 160-4.5 MCG/ACT inhalerIndication s:Moderate persistent asthma with acute exacerbation (HHS/HCC) Inhale 2 puffs into the lungs 2 (two) times daily. 10.2 g 2 025 Active loratadine (CLARITIN) 10 MG tabletIndications :Moderate persistent asthma with acute exacerbation (HHS/HCC) Take 1 tablet (10 mg total) by mouth daily. For allergies/drain age 30 tablet 1 025 Active albuterol sulfate HFA 108 (90 Base) MCG/ACT inhalerIndication s:Severe persistent asthma with acute exacerbation (CMS/HCC HHS/HCC) Inhale 2 puffs into the lungs every 6 (six) hours as needed for Wheezing. 18 g 5 025 Active dupilumab (DUPIXENT) 300 MG/2ML injection (PEN)Indications: Severe persistent asthma with acute exacerbation (CMS/HCC HHS/HCC) Inject 2 mLs (300 mg total) into the skin every 14 (fourteen) days. 12 mL 1 025 2024 Discontinued(R eorder) ipratropium-albut brenda (DUONEB) 0.5-2.5 (3) MG/3ML SolutionIndicatio ns:Severe persistent asthma with acute exacerbation (CMS/HCC HHS/HCC) Take 3 mLs by nebulization every 6 (six) hours as needed. 360 mL 11 025 2024 Discontinued(R eorder) budesonide-glycop yrrolate-formoter ol (BREZTRI AEROSPHERE) 160-9-4.8 MCG/ACT inhalerIndication s:Severe persistent asthma with acute exacerbation (CMS/HCC HHS/HCC) Inhale 2 puffs into the lungs 2 (two) times daily. 10.7 g 5 2024 Discontinued(R eorder) albuterol sulfate HFA 108 (90 Base) MCG/ACT inhalerIndication s:Severe persistent asthma with acute exacerbation (CMS/HCC HHS/HCC) Inhale 2 puffs into the lungs every 6 (six) hours as needed for Wheezing. 18 g 5 2024 Discontinued(R eorder) gabapentin (NEURONTIN) 300 MG capsuleIndication s:Chronic neck pain Take 1 capsule (300 mg total) by mouth 3 (three) times daily. 90 capsule 1 2024 Discontinued(R eorder) montelukast (SINGULAIR) 10 MG tabletIndications :Severe persistent asthma with acute exacerbation (CMS/HCC HHS/HCC) Take 1 tablet (10 mg total) by mouth nightly at bedtime. 30 tablet 1 2024 Discontinued(R eorder) losartan (COZAAR) 50 MG tabletIndications :Primary hypertension Take 1 tablet (50 mg total) by mouth daily. 30 tablet 1 2024 Discontinued(R eorder) loratadine (CLARITIN) 10 MG tabletIndications :Moderate persistent asthma with acute exacerbation (HHS/HCC) Take 1 tablet (10 mg total) by mouth daily. For allergies/drain age 30 tablet 1 2024 Discontinued(R eorder) oxyCODONE-acetami nophen (PERCOCET) 7.5-325 MG tabletIndications :Chronic Pain Take 1 tablet by mouth daily as needed for Pain. Indications: Chronic Pain 30 tablet 2024 Discontinued(R eorder) methylPREDNISolon e, ABBE, (MEDROL DOSEPAK) 4 MG tabletIndications :Moderate persistent asthma with acute exacerbation (HHS/HCC) 6 TABLETS ON DAY ONE, 5 TABLETS DAY TWO, 4 TABLETS DAY THREE, 3 TABLETS DAY FOUR, 2 TABLETS DAY FIVE, AND 1 TABLET DAY SIX 1 each 2024 Discontinued(O ther- Please enter comment in Notes field) oxyCODONE-acetami nophen (PERCOCET) 7.5-325 MG tabletIndications :Chronic Pain Take 1 tablet by mouth daily as needed for Pain. Indications: Chronic Pain 30 tablet 025 2024 Discontinued(R eorder) albuterol sulfate HFA 108 (90 Base) MCG/ACT inhalerIndication s:Severe persistent asthma with acute exacerbation (CMS/HCC HHS/HCC) Inhale 2 puffs into the lungs every 6 (six) hours as needed for Wheezing. 18 g 5 025 2024 Discontinued(R eorder) budesonide-glycop yrrolate-formoter ol (BREZTRI AEROSPHERE) 160-9-4.8 MCG/ACT inhalerIndication s:Severe persistent asthma with acute exacerbation ([facility]/HCC HHS/HCC) Inhale 2 puffs into the lungs 2 (two) times daily. 10.7 g 5 025 2024 Discontinued montelukast (SINGULAIR) 10 MG tabletIndications :Severe persistent asthma with acute exacerbation ([facility]/HCC HHS/HCC) Take 1 tablet (10 mg total) by mouth nightly at bedtime. 30 tablet 1 025 2024 Discontinued(R eorder) losartan (COZAAR) 100 MG tabletIndications :Primary hypertension Take 1 tablet (100 mg total) by mouth daily. 90 tablet 1 025 2024 Discontinued(R eorder) Active Problems Problem Noted Date Diagnosed Date Moderate persistent asthma w ith acute exacerbation ([facility]/HCC) 08/22/2024 Cervical radiculopathy 01/12/2024 Right arm pain 01/12/2024 Prediabetes 09/30/2021 Osteoarthritis of multiple joints 09/29/2021 Primary hypertension 09/29/2021 Overweight (BMI 25.0-29.9) 09/29/2021 Vitamin D deficiency 09/29/2021 Derangement of posterior hor n of lateral meniscus, unspecified laterality 04/26/2012 Primary osteoarthritis of right knee 04/26/2012 Resolved Problems Problem Noted Date Diagnosed Date Resolved Date Mild intermittent asthma wit hout complication ([facility]/HCC) 09/29/2021 08/22/2024 Encounters Date Type Department Care Team Description 11/07/2024 9:00 AM CDT Office Visit [place] [address] [address] [address] [place] [address] Isabel Adair NP Dizziness 11/07/2024 Travel 11/06/[address] [place] [address] [address] [place] [address] Soledad Lucas MD Dizziness 10/29/2024 Telephone [place] [address] [place] [address] [place] [address] Soledad Lucas MD Information 10/28/2024 2:40 PM CDT Office Visit [place] [address] [address] [address] [place] [address] Soledad Lucas MD Follow Up (Congested, allergies. Refill on albuterol, percocet (was only given 7 pills when he picked the RX up, breztri. Couldn't afford the next shot of dupixent, also needs duoneb solution refilled, refill on losartan, refill on montelukast ); Hypertension (Discuss viagra); Back Pain; Weight Problem; Hyperlipidemia; Prediabetes; Arthritis; Asthma 10/28/2024 Telephone [place] [address] [place] [address] [place] [address] Soledad Lucas MD Medication 10/28/2024 Travel 10/18/2024 Telephone [place] [address] [place] [address] [address] [address] [place] [address] Soledad Lucas MD Medication 09/20/2024 Telephone [place] [address] [place] [address] [place] [address] Soledad Lucas MD Question 09/12/2024 [facility] [address] [facility] [address] [place] [address] Soledad Lucas MD Results 09/06/2024 10:37 AM LAYOUT DESIGNER - 09/06/2024 11:59 PM LAYOUT DESIGNER Hospital Encounter [facility] [address] [place] [address] Soledad Lucas MD Discharge Disposition: Home or Self Care (Routine Discharge) 09/06/2024 Travel 09/05/2024 [facility] [address] [facility] [address] [place] [address] Soledad Lucas MD Referral 08/30/2024 Telephone [facility] [address] [facility] [address] [facility] [address] [place] [address] Soledad Lucas MD Medication Information 08/28/2024 Scan [facility] SRVCS Scanned, [facility] 08/27/2024 [facility]phone [facility] [address] [facility] [address] [place] [address] Soledad Lucas MD Breathing Problem 08/26/2024 Orders Only [facility] [address] [facility] [address] [place] [address] Soledad Lucas MD 08/26/2024 [facility]phone [facility] [address] [facility] [address] [place] [address] Soledad Lucas MD Medication 08/23/2024 Scan [facility] SRVCS Scanned, [facility] 08/22/2024 9:00 AM LAYOUT DESIGNER [facility] [address] [facility] [address] [place] [address] Isabel Adair NP Wheezing 08/22/2024 Travel 08/21/2024 Telephone [place] [address] [facility] [address] [place] [address] Soledad Lucas MD Question 08/20/2024 Telephone [place] [address] [facility] [address] [place] [address] Soledad Lucas MD Referral 08/19/2024 9:00 AM LAYOUT DESIGNER Office Visit [place] [address] [address] [address] [place] [address] Soledad Lucas MD Follow Up (Chronic medical issues); Hyperlipidemia; Hypertension; Back Pain; Neck Pain; Knee Pain; Asthma 08/19/2024 Scan [facility] INFO SRVCS Scanned, [facility] Image (SCAN) 08/19/2024 Telephone [place] [address] [address] [address] [place] [address] Soledad Lucas MD Follow Up Call 08/19/2024 Telephone [place] [address] [address] [place] [address] Soledad Lucas MD Medication Information 08/19/2024 Telephone [place] [address] [address] [place] [address] Soledad Lucas MD Follow Up Call 08/19/2024 Travel from Last 3 Months Immunizations Name Administration [...] pure alcohol) Socially PHQ-2 Answer Date Recorded Patient Health Questionnaire-2 Score 0 08/19/2024 Sex and Gender Information Value Date Recorded Sex Assigned at Male 09/06/2024 10:34 AM LAYOUT DESIGNER Legal Sex Male 8:04 PM CDT Gender Identity Male 10/28/2024 3:16 PM CDT Sexual Orientation Straight 10/28/2024 3: 16 PM CDT Last Filed Vital Signs Vital Sign Reading Time Taken Comments Blood Pressure 162/98 11/07/2024 9:36 AM CDT Pulse 67 11/07/2024 9:26 AM CDT Temperature 36.7 C (98.1 F) 11/07/2024 9:26 AM CDT Respiratory Rate 18 11/07/2024 9:26 AM CDT Oxygen Saturation 99% 11/07/2024 9:26 AM CDT Inhaled Oxygen Concentration - - Weight 112.8 kg (248 lb 9.6 oz) 11/07/2024 9:26 AM CDT Height 185.4 cm (6' 1 ) 11/07/2024 9:26 AM CDT Body Mass Index 32.8 11/07/2024 9:26 AM CDT Plan of Treatment Upcoming Encounters Date Type Department Care Team (Late st Contact Info) Description 12/16/2024 10:40 AM CDT Office Visit [facility] [address] [place] [id number] Ramsey Oakley MD [address] [facility] [address] [place] [address] 12/24/2024 12:40 PM CDT Office Visit [facility] - [place] [address] [address] [place] [address] Soledad Lucas MD [address] [place] [address] [address] [place] [address] Health Maintenance Due Date Last Done Comments Zoster Vaccines (1 of 2) 08/14/2009 RSV Immunization or 60+ Years (1 - Risk 60-74 years 1-dose series) 08/14/2019 COVID-19 Vaccine (3 - 2023-2 5 season) 2024 11/15/2020, 10/24/2020 Pneumococcal Vaccine: 65+ Years (3 of 3 - PPSV23 or PCV20) 11/01/2026 08/16/2023, 11/01/2021 Pneumococcal Vaccine: Pediatrics (0 to 5 Years) and At-Risk Patients (6 to 64 Years) (3 of 3 - PPSV23 or PCV20) 11/01/2026 08/16/2023, 11/01/2021 Colorectal Cancer Screening Colonoscopy (10 Years) 07/20/2031 07/20/2021 DTaP, Tdap and Td Vaccines ( 2 - Td or Tdap) 10/14/2031 10/13/2021 Hepatitis C Completed 09/29/2021 PHQ-2 (Physician Latexo) Completed 08/19/2024 Meningococcal B Vaccine Aged Out No l onger eligible based on patient's age to complete this topic Meningococcal Vaccine Aged Out No victorina owen eligible based on patient's age to complete this topic RSV Immunizations Under 20 Months Aged Out No longer eligible b ased on patient's age to complete this topic Procedures Procedure Name Priority Date/Time Associated Diagnosis Comments CT CERV SPINE WO CON Routine 09/06/2024 11:00 AM LAYOUT DESIGNER Cervical radiculopathy Chronic neck pain HEMOGLOBIN, GLYCOSYLATED Routine 08/19/2024 9:51 AM LAYOUT DESIGNER Annual physical exam General medical exam Drug therapy TSH W/REFLEX Routine 08/19/2024 9:51 AM LAYOUT DESIGNER Annual physical exam General medical exam Drug therapy LIPID PANEL Routine 08/19/2024 9:51 AM LAYOUT DESIGNER Annual physical exam General medical exam Drug therapy COMPREHENSIVE METABOLIC PANEL Routine 08/19/2024 9:51 AM LAYOUT DESIGNER Annual physical exam General medical exam Drug therapy CBC W/DIFF AUTOMATED Routine 08/19/2024 9:51 AM LAYOUT DESIGNER Annual physical exam General medical exam Drug therapy SED RATE, ERYTHROCYTE (ESR) Routine 08/19/2024 9:51 AM LAYOUT DESIGNER Annual physical exam General medical exam Drug therapy PROSTATE SPECIFIC ANTIGEN,SCREENING Routine 08/19/2024 9:51 AM LAYOUT DESIGNER Screening for malignant neoplasm of prostate MG/PCCL UDS SCREEN Routine 08/19/2024 9: 35 AM LAYOUT DESIGNER Drug therapy COLLECTION VENOUS BLOOD VENIPUNCTURE Routine 08/19/2024 9:13 AM LAYOUT DESIGNER Annual physical exam General medical exam Drug therapy REMOVE IMPACTED CERUMEN INSTRUMENTATION UNILAT Routine 08/19/2024 9:00 AM LAYOUT DESIGNER Bilateral impacted cerumen URINALYSIS AUTO DIP Routine 08/19/2024 Annual physical exam General medical exam Drug therapy IMAGE GENERIC 08/19/2024 IMAGE GENERIC 08/19/2024 HEPATITIS C ANTIBODY Routine 09/29/2021 10:05 AM LAYOUT DESIGNER Annual physical exam Encounter for medical examination to establish care General medical exam Encounter for hepatitis C screening test for low risk patient COLONOSCOPY GENERIC (SCAN ORDER) 07/20/2021 from Last 3 Months or Most Recently Relevant to Health Maintenance Results * CT CERV SPINE WO CON (09/06/2024 11:00 AM LAYOUT DESIGNER) Anatomical Region Laterality Modality Spine Computed Tomogra phy 09/10/2024 9:34 AM LAYOUT DESIGNER Impressions 09/11/2024 8:54 AM LAYOUT DESIGNER IMPRESSION: 1. No cervical spine fracture. 2. Moderate multilevel cervical spondylosis, as described above. Ordered By: SOLEDAD LUCAS Interpreted By: Eloy Blackwell MD, 09/10/2024 9:34 AM Narrative 09/11/2024 8:54 AM LAYOUT DESIGNER [address] [address] EXAMINATION: CT Cervical Spine without contrast. EXAM DATE/TIME: 09/06/2024 10:43 AM REASON FOR EXAM: Posterior neck pain COMPARISON: Cervical spine radiographs 08/17/2008. TECHNIQUE: Computed tomographic images of the cervical spine were obtained without intravenous contrast. Additional coronal and sagittal reformatted images were generated at a separate workstation. A dose lowering technique was used for this procedure, which may include, but is not limited to, dose reduction technique, automated exposure control, iterative reconstruction, ALARA (As Low As Reasonably Achievable), or Image Gently techniques. FINDINGS: Straightening and slight reversal the normal cervical lordosis that is likely positional. The cervical vertebral bodies and facets are well aligned. The cervical vertebral body heights are preserved. There is intervertebral disc height loss at C3-4, C5-6, and C7-T1 with endplate degenerative changes at these levels. No acute fracture nor destructive process of the visualized osseous structures. No abnormal prevertebral or paraspinal soft tissue swelling. Lung apices are well aerated. C2-C3: No significant spinal canal stenosis. Facet joint hypertrophy. Mild to moderate left neural foraminal stenosis. No right neural foraminal stenosis. C3-C4: Disc bulge with posterior endplate marginal osteophytes impress the ventral thecal sac. Moderate to severe spinal canal stenosis. Uncovertebral joint hypertrophy. Moderate to severe right neural foraminal stenosis. Mild to moderate left neural foraminal stenosis. C4-C5: Disc bulge impressing the ventral thecal sac. Mild to moderate spinal canal stenosis. Uncovertebral joint hypertrophy. Moderate left neural foraminal stenosis. Mild to moderate right neural foraminal stenosis. C5-C6: Disc bulge with posterior endplate marginal osteophytes impress the ventral thecal sac. Mild to moderate spinal canal stenosis. Uncovertebral joint hypertrophy. Mild bilateral neural foraminal stenosis. C6-C7: Disc bulge impressing the ventral thecal sac. Mild spinal canal stenosis. Uncovertebral joint hypertrophy. Mild bilateral neural foraminal stenosis. C7-T1: No significant spinal canal stenosis. Uncovertebral joint hypertrophy. Moderate bilateral neural foraminal stenosis. Procedure Note Eloy Blackwell MD - 09/11/[address] [address] EXAMINATION: CT Cervical Spine without contrast. EXAM DATE/TIME: 09/06/2024 10:43 AM REASON FOR EXAM: Posterior neck pain COMPARISON: Cervical spine radiographs 08/17/2008. TECHNIQUE: Computed tomographic images of the cervical spine were obtainedwithout intravenous contrast. Additional coronal and sagittal reformattedimages were generated at a separate workstation. A dose lowering techniquewas used for this procedure, which may include, but is not limited to,dose reduction technique, automated exposure control, iterativereconstruction, ALARA (As Low As Reasonably Achievable), or Image Gentlytechniques. FINDINGS: Straightening and slight reversal the normal cervical lordosisthat is likely positional. The cervical vertebral bodies and facets arewell aligned. The cervical vertebral body heights are preserved. There isintervertebral disc height loss at C3-4, C5-6, and C7-T1 with endplatedegenerative changes at these levels. No acute fracture nor destructiveprocess of the visualized osseous structures. No abnormal prevertebral orparaspinal soft tissue swelling. Lung apices are well aerated. C2-C3: No significant spinal canal stenosis. Facet joint hypertrophy. Mildto moderate left neural foraminal stenosis. No right neural foraminalstenosis. C3-C4: Disc bulge with posterior endplate marginal osteophytes impress theventral thecal sac. Moderate to severe spinal canal stenosis.Uncovertebral joint hypertrophy. Moderate to severe right neural foraminalstenosis. Mild to moderate left neural foraminal stenosis. C4-C5: Disc bulge impressing the ventral thecal sac. Mild to moderatespinal canal stenosis. Uncovertebral joint hypertrophy. Moderate leftneural foraminal stenosis. Mild to moderate right neural foraminalstenosis. C5-C6: Disc bulge with posterior endplate marginal osteophytes impress theventral thecal sac. Mild to moderate spinal canal stenosis. Uncovertebraljoint hypertrophy. Mild bilateral neural foraminal stenosis. C6-C7: Disc bulge impressing the ventral thecal sac. Mild spinal canalstenosis. Uncovertebral joint hypertrophy. Mild bilateral neural foraminalstenosis. C7-T1: No significant spinal canal stenosis. Uncovertebral jointhypertrophy. Moderate bilateral neural foraminal stenosis. IMPRESSION: 1. No cervical spine fracture. 2. Moderate multilevel cervical spondylosis, as described above. Ordered By: SOLEDAD LUCAS Interpreted By: Eloy Blackwell MD, 09/10/2024 9:34 AM Soledad Lucas MD CT Final Result * TSH W/REFLEX (08/19/2024 9:51 AM LAYOUT DESIGNER) TSH 1.876 0.358 - 3.740 uIU/ML 08/20/2024 10:47 AM LAYOUT DESIGNER [facility] 08/19/2024 9:51 AM LAYOUT DESIGNER Soledad Lucas MD LABORATORY Final Result Performing Organization Address City/[facility]/ZIP Co de Phone Number [address] [address], * (ABNORMAL) HEMOGLOBIN, GLYCOSYLATED (08/19/2024 9:51 AM LAYOUT DESIGNER) Pathologist [facility] HGB A1C 5.9 4.5 - 6.2 % 08/19/2024 7:51 PM LAYOUT DESIGNER [facility] ESTIMATED AVG GLUCOSE 123(H) 74 - 106 MG/DL 08/19/2024 7:51 PM LAYOUT DESIGNER [facility] 08/19/2024 9:51 AM LAYOUT DESIGNER Soledad Lucas MD LABORATORY Final Result Performing Organization Address City/[facility]/ZIP Co de Phone Number [address] [address], [place] [phone] * (ABNORMAL) SED RATE, ERYTHROCYTE (ESR) (08/19/2024 9:51 AM LAYOUT DESIGNER) ESR 48(H) 0 - 19 MM/HR 08/19/2024 7:18 PM LAYOUT DESIGNER [facility] 08/19/2024 9:51 AM LAYOUT DESIGNER Soledad Lucas MD LABORATORY Final Result Performing Organization Address City/[facility]/ZIP Co de Phone Number [facility]lee[facility] HOSPITALRTHUTelma [address] [address], [place] [phone] * (ABNORMAL) PROSTATE SPECIFIC ANTIGEN,SCREENING (08/19/2024 9:51 AM LAYOUT DESIGNER) PSA 4.55(H) <4.00 NG/ML 08/19/2024 8:20 PM LAYOUT DESIGNER [facility] Comment: ASSAY PERFORMED BY [employer]UNO[employer]Y METHODOLOGY USING [employer] RE[employer]ENT. PATIENT RESULTS DETERMINED BY ASSAYS FROM DIFFERENT MANUFACTURERS AND/OR BY DIFFERENT METHODS MAY NOT BE COMPARABLE. 08/19/2024 9:51 AM LAYOUT DESIGNER Soledad Lucas MD LABORATORY Final Result Performing Organization Address [facility] Co de Phone Number NISA CARDENASHUTelma [address] [place] [address], [place] [phone] * (ABNORMAL) COMPREHENSIVE METABOLIC PANEL (08/19/2024 9:51 AM LAYOUT DESIGNER) SODIUM S/P/B 141 136 - 145 MMOL/L 08/20/2024 10:47 AM LAYOUT DESIGNER [facility] POTASSIUM S/P/B 4.2 3.5 - 5.1 MMOL/L 08/20/2024 10:47 AM LAYOUT DESIGNER [facility] CHLORIDE S/P/B 104 98 - 107 MMOL/L 08/20/2024 10:47 AM LAYOUT DESIGNER [facility] CO2 28.6 21 - 32 MMOL/L 08/20/2024 10:47 AM LAYOUT DESIGNER [facility] GLUCOSE 99 70 - 99 MG/DL 08/20/2024 10:47 AM [facility] BUN 9 7 - 18 MG/DL 08/20/2024 10:47 AM [facility] CREATININE S/P/B 1.06 0.70 - 1.30 MG/DL 08/20/2024 10:47 AM [facility] CALCIUM S/P/B 8.9 8.4 - 10.5 MG/DL 08/20/2024 10:47 AM [facility] BILIRUBIN TOTAL S/P/B 1.3(H) 0.2 - 1.0 MG/DL 08/20/2024 10:47 AM [facility] ALKALINE PHOSPHATASE S/P/B 91 45 - 115 U/L 08/20/2024 10:47 AM [facility] AST 22 15 - 37 U/L 08/20/2024 10:47 AM [facility] ALT 31 16 - 63 U/L 08/20/2024 10:47 AM [facility] TOTAL PROTEIN S/P/B 7.0 6.4 - 8.2 G/DL 08/20/2024 10:47 AM [facility] ALBUMIN S/P/B 3.9 3.4 - 5.0 G/DL 08/20/2024 10:47 AM [facility] ANION GAP 8.4 5 - 15 MMOL/L 08/20/2024 10:47 AM [facility] Comment:REFERENCE RANGE NOT ESTABLISHED OSMOLALITY (CALC) 291 MOSM/KG 025 10:47 AM [facility] Comment:REFERENCE RANGE NOT ESTABLISHED GFR ESTIMATE 78(L) >90 ML/MIN/1. 73 M2 08/20/2024 10:47 AM [facility] GFR NOTES GFR REFERENCE S: 08/20/2024 10:47 AM [facility] Comment: THE ESTIMATED GFR IS CALCULATED USING [...] ml/min/1.73 m2 G5,KIDNEY FAILURE: <15 ml/min/1.73 m2 08/19/2024 9:51 AM LAYOUT DESIGNER Soledad Lucas MD LABORATORY Final Result [facility] [address] [place] [address], * LIPID PANEL (08/19/2024 9:51 AM LAYOUT DESIGNER) CHOLESTEROL 124 <200 MG/DL 08/20/2024 10:47 AM [facility] TRIGLYCERIDES 30 <150 MG/DL 08/20/2024 10:47 AM [facility] HDL 68 >40 MG/DL 08/20/2024 10:47 AM [facility] LDL-C 50 <100 MG/DL 08/20/2024 10:47 AM [facility] VLDL CALCULATION 6 5 - 28 MG/DL 08/20/2024 10:47 AM [facility] CHOL/HDL RATIO 1.8 0.0 - 4.0 08/20/2024 10:47 AM [facility] LDL/HDL 0.7 0.41 - 2.13 08/20/2024 10:47 AM [facility] NON HDL CHOLESTEROL 56 <140 MG/DL 08/20/2024 10:47 AM [facility] 08/19/2024 9:51 AM LAYOUT DESIGNER Soledad Lucas MD LABORATORY Final Result [facility] [address] [facility] [address], [place] [phone] * (ABNORMAL) CBC W/DIFF AUTOMATED (08/19/2024 9:51 AM LAYOUT DESIGNER) WBC 6.84 4.00 - 10.80 x10'3/uL 08/19/2024 7:34 PM LAYOUT DESIGNER [facility] RBC 5.04 4.50 - 6.10 x10'6/uL 08/19/2024 7:34 PM [facility] HGB 13.7 13.0 - 18.0 G/DL 08/19/2024 7:34 PM [facility] HCT 42.7 37.0 - 52.0 % 08/19/2024 7:34 PM [facility] MCV 84.7 78.0 - 100.0 FL 08/19/2024 7:34 PM [facility] MCH 27.2 27.0 - 31.0 PG 08/19/2024 7:34 PM [facility] MCHC 32.1(L) 33.0 - 36.0 G/DL 08/19/2024 7:34 PM [facility] RDW 13.3 11.5 - 14.5 % 08/19/2024 7:34 PM [facility] PLT 265 150 - 350 x10'3/uL 08/19/2024 7:34 PM [facility] MPV 10.6(H) 7.4 - 10.4 FL 08/19/2024 7:34 PM [facility] DIFFERENTIAL TYPE AUTOMATED DIFFERENTIAL 08/19/2024 7:34 PM LAYOUT DESIGNER [facility] NEUTROPHILS % 66.7 % 08/19/2024 7:34 PM [facility] LYMPHOCYTES % 16.4 % 08/19/2024 7:34 PM [facility] MONOCYTES % 6.6 % 08/19/2024 7:34 PM [facility] EOSINOPHILS % 9.8 % 08/19/2024 7:34 PM LAYOUT DESIGNER [facility] BASOPHILS % 0.4 % 08/19/2024 7:34 PM [facility] IMMATURE GRANS % 0.1 % 08/19/2024 7:34 PM [facility] ABS. NEUTROPHILS 4.56 1.60 - 8.30 x10'3/uL 08/19/2024 7:34 PM [facility] ABS. LYMPHOCYTES 1.12 0.80 - 4.70 x10'3/uL 08/19/2024 7:34 PM LAYOUT DESIGNER [facility] ABS. MONOCYTES 0.45 0.00 - 1.50 x10'3/uL 08/19/2024 7:34 PM [facility] ABS. EOSINOPHILS 0.67(H) 0.00 - 0.40 x10'3/uL 08/19/2024 7:34 PM [facility] ABS. BASOPHILS 0.03 0.00 - 0.20 x10'3/uL 08/19/2024 7:34 PM LAYOUT DESIGNER [facility] ABS. IMMATURE GRANULOCYTES 0.01 0.00 - 0.03 x10'3/uL 08/19/2024 7:34 PM [facility] 08/19/2024 9:51 AM LAYOUT DESIGNER us Soledad Lucas MD LABORATORY Final Result [facility] [address] [place] [address], * (ABNORMAL) MG/PCCL UDS SCREEN (08/19/2024 9:35 AM LAYOUT DESIGNER) FENTANYL SCREEN (U) NEGATIVE <0.5 ng/mL [facility] Comment: See Note A See Note A MORPHINE (U) NEGATIVE <10 ng/mL [facility] Comment: See Note A See Note A AMPHETAMINES PM NEGATIVE <500 ng/mL [facility] Comment: See Note A See Note A BARBITURATES PM (U) NEGATIVE <300 ng/mL [facility] Comment: See Note A See Note A BENZODIAZEPINES PM (U) NEGATIVE <100 ng/mL [facility] Comment: See Note A See Note A COCAINE METABOLITE PM (U) NEGATIVE <150 ng/mL [facility] Comment: See Note A See Note A MARIJUANA METABOLITE PM (U) POSITIVE(A) <20 ng/mL [facility] Comment: See Note A See Note A METHADONE PM (U) NEGATIVE <100 ng/mL [facility] Comment: See Note A See Note A OPIATES PM (U) POSITIVE(A) <100 ng/mL [facility] Comment: See Note A See Note A OXYCODONE PM (U) NEGATIVE <100 ng/mL [facility] Comment: See Note A See Note A CREATININE RANDOM (U) 203.4 > or = 20.0 mg/dL [facility] pH PM (U) 6.3 4.5 - 9.0 [facility] OXIDANT NEGATIVE <200 mcg/mL [facility] NOTE [facility] Comment: This drug testing is for medical treatment only. Analysis was performed as non-forensic testing and these results should be used only by healthcare providers to render diagnosis or treatment, or to monitor progress of medical conditions. Note A: The results are presumptive; based only on screening methods, and they have not been confirmed by a definitive method. LDT Notes: Confirmation tests were developed and their analytical performance characteristics have been determined by [facility]. It has not been cleared or approved by the FDA. This assay has been validated pursuant to the CLIA regulations and is used for clinical purposes. Healthcare Providers needing Interpretation assistance, please contact us at [phone] ( ) M-F, 8am to 10pm EST URINE SPECIMEN / Unknown 08/19/2024 9:35 AM LAYOUT DESIGNER 08/20/2024 1:31 AM LAYOUT DESIGNER Narrative Resulting Agency Comment Performing Organization Information: Site ID: [id number] [facility] Address: [address] [place] [address] Director: Jhoan Ying Site ID: [id number] Name: [facility] Address: [address] [place] [address] Director: Lang Adam MD Soledad Lucas MD URINE ORDERABLES Final Result Performing Organization Address City/State/[facility] Co de Phone Number [facility] [address] [place] [address] [employer] [facility] [id number] [place] [id number] * REMOVE IMPACTED CERUMEN INSTRUMENTATION UNILAT (08/19/2024 9:00 AM LAYOUT DESIGNER) Narrative Soledad Lucas MD - 08/19/2024 9:00 AM LAYOUT DESIGNER Soledad Lucas MD 08/19/2024 9:56 AM *Ear Cerumen Removal Date/Time: 08/19/2024 9:00 AM Performed by: Soledad Lucas MD Authorized by: Soledad Lucas MD Location details: right ear and left ear Patient tolerance: patient tolerated the procedure well with no immediate complications Procedure type: curette Soledad Lucas MD PROCEDURE/MINOR SURGICAL ORDERAB LES Final Result * IMAGE GENERIC (08/19/2024) Only the most recent of2 resultswithin the time period is included. Anatomical Region Laterality Modality Other 08/19/2024 [facility] Scanned SCANNING Final Resu lt * URINALYSIS AUTO DIP (08/19/2024) COLOR (U) YELLOW YELLOW MG[address], [place] [facility] CLEAR CLEAR MG-[address], [place] GLUCOSE (U) NEGATIVE NEGATIVE MG/DL MG-[address], [facility] BILIRUBIN (U) NEGATIVE NEGATIVE MG-[address], [facility] KETONES MG/DL (U) NEGATIVE NEGATIVE MG/DL MG-[address], [facility] SPECIFIC GRAVITY (U) 1.025 1.001 - 1.035 MG-[address], [place] BLOOD (U) NEGATIVE NEGATIVE MG-[address], [facility] U PH 6.0 5.0 - 9.0 MG-[address], [place] PROTEIN (U) NEGATIVE NEGATIVE mg/dL MG-[address], [facility] UROBILINOGEN 0.2 0.2 - 1.0 EU/dL = mg/dL MG-[address], [facility] NITRITES NEGATIVE NEGATIVE MG/DL MG-[address], [facility] LEUKOCYTES (U) NEGATIVE NEGATIVE MG-[address], [facility] URINE SPECIMEN OBTAINED BY CLEAN CATCH PROCEDURE / Unknown 08/19/2024 us Soledad Lucas MD URINE ORDERABLES Final Result Performing Organization Address City/[facility]/ZIP Co de Phone Number MG-[address], [place] [address] [place] [address], [place] [phone] * HEPATITIS C ANTIBODY (09/29/2021 10:05 AM LAYOUT DESIGNER) HEPATITIS C AB NON-REACTI VE NON-REACT DESIREE 09/29/2021 6:[address] [facility] Comment: ANTIBODIES TO HCV NOT DETECTED. DOES NOT EXCLUDE THE POSSIBILITY OF EXPOSURE TO HCV. 09/29/2021 10:0 5 AM LAYOUT DESIGNER us Soledad Lucas MD LABORATORY Final Result [facility] [address] [place] [address], [place] [phone] [id number] * COLONOSCOPY GENERIC (07/20/2021) 07/20/2021 Narrative 07/20/2021 Ordered by an unspecified provider. us Documents Scanned SCANNING Final Result from Last 3 Months or Most Recently Relevant to Health Maintenance Insurance [place] [id number] Care Teams Corrosion Control Fitter Relationship Specialty Start Date End Date Soledad Lucas MD [address] [facility] [address] [place] [address] PCP - General INTERNAL MEDICINE 09/29/21
[2024-11-16 07:28] VITALS: BP 174/84; PULSE 66; RESP 22; TEMP 36.8; O2SAT 98
[2024-11-16 07:33] VITALS: O2SAT 99
[2024-11-16 07:37] VITALS: BP 166/94; PULSE 66; RESP 16; O2SAT 100
--- OUTSIDE RECORDS SUMMARY | 2024-11-16 07:47 | XMS_ITS | Clinical Summary ---
Author Organization [facility] Address [address] [place] [address] Care Team Providers Care Technology Applications Engineer Name Role Phone Unavailable Primary Care Provider [...]
--- OUTSIDE RECORDS SUMMARY | 2024-11-16 07:47 | XMS_ITS | Continuity of Care Document ---
Author Organization [facility] Address [address] [place] [address] [place] [address] Phone Care Team Providers Care Diamond Sawer Name Role Phone Lei White MD Unavailable [...] Diagnoses Date Provider Providers Copied on Encounter [facility], [address] [place], [place], [address], [place] [phone] [facility] Medicine No Information 2 Christopher Montes [address], [place], [place], [address] , [place]. [phone] OFFICE/OUTPA TIENT VISIT, [facility], [address] [place], [place], [address], [place] [phone] [facility] Medicine HTN (chief complaint) BPH1 (chief complaint) pain (chief complaint) BPH w/ lower urinary tract symptomEssential (primary) hypertensionPain in left kneeEncounter for screening for malignant neoplasm of colon 1 Christopher Montes [address], [place], [place], [address] , [place]. tel:[phone] OFFICE/OUTPA TIENT VISIT, [facility], [address] [place], [address], [place] tel:[phone] [facility] Medicine pain (chief complaint) shoulder pain1 (chief complaint) Pain in left kneePain in left shoulder 1 Christopher Montes [address], [place], [place], [address] , [place]. [phone] OFFICE/OUTPA TIENT VISIT, [facility], [address] [place], [place], [address], [place] tel:[phone] [facility] pain (chief complaint) BPH1 (chief complaint) BPH w/ lower urinary tract symptomPain in left knee 1 Christopher Montes [address], [place], [place], [address] , [place]. tel:[phone] PREV VISIT, EST, AGE 40-64 [facility], [address], [place], [place], [address], [place] tel:[phone] [facility] Medicine physical (chief complaint) Encounter for general adult medical exam w abnormal findingsMuscle spasm of backEssential (primary) hypertensionBPH w/ lower urinary tract symptomPain in left kneeRash 1 Christopher Montes [address], [place], [place], [address] , [place]. tel:[phone] OFFICE/OUTPA TIENT VISIT, [facility], [address], [place], [place], [address], [place] tel:[phone] [facility] knee pain1 (chief complaint) ear (chief complaint) Chronic pain syndromeOtalgia, right ear 1 Christopher Montes [address], [place], [place], [address] , [place]. tel:[phone] OFFICE/OUTPA TIENT VISIT, [facility], [address], [place], [place], [address], [place] tel:[phone] [facility] HTN (chief complaint) BPH1 (chief complaint) knee pain1 (chief complaint) Essential (primary) hypertensionBPH w/ lower urinary tract symptomPain in left kneeEncounter for screening for malignant neoplasm of colon 1 Christopher Odom. [address], [place], [place], [address] , [place]. tel:[phone] OFFICE/OUTPA TIENT VISIT, [facility], [address], [place], [place], [address], [place] tel:[phone] [facility] knee pain1 (chief complaint) Pain in left kneeChronic pain syndrome 1 White Lei. [address], [place], [place], [address] , [place]. tel:[phone] OFFICE/OUTPA TIENT VISIT, [facility], [address], [place], [place], [address], [place] tel:[phone] [facility] HTN (chief complaint) knee pain1 (chief complaint) Essential (primary) hypertensionChronic pain syndrome 0 Christopher Odom. [address], [place], [place], [address] , [place]. tel:[phone] OFFICE/OUTPA TIENT VISIT, [facility], [address], [place], [place], [address], [place] tel:[phone] [facility] knee pain1 (chief complaint) Chronic pain syndromePain in left knee 0 Christopher Odom. [address], [place], [place], [address] , [place]. tel:[phone] OFFICE/OUTPA TIENT VISIT, [facility], [address], [place], [place], [address], [place] tel:[phone] [facility] physical (chief complaint) Encounter for general adult medical exam w abnormal findingsBPH w/ lower urinary tract symptomEssential (primary) hypertensionChronic pain syndrome 0 Christopher Odom. [address], [place], [place], [address] , [place]. tel:[phone] OFFICE/OUTPA TIENT VISIT, [facility], [address], [place], [place], [address], [place] tel:[phone] [facility] BPH (chief complaint) gERD1 (chief complaint) knee pain1 (chief complaint) Chronic pain syndromeBPH w/ lower urinary tract symptomAbnormal weight loss 0 Christopher Odom. [address], [place], [place], [address] , [place]. tel:[phone] OFFICE/OUTPA TIENT VISIT, [facility], [address], [place], [place], [address], [place] tel:[phone] [facility] knee pain (chief complaint) penile lesion1 (chief complaint) Chronic pain syndromeDisorder of penis Tarik- 0-202 0 Christopher Montes [address], [place], [place], [address] , [place]. [phone] OFFICE/OUTPA TIENT VISIT, [facility], [address], [place], [place], [address], [place] tel:[phone] [facility] HTN (chief complaint) knee pian1 (chief complaint) Essential (primary) hypertensionChronic pain syndrome 0 0 Christopher Montes [address], [place], [place], [address] , [place]. tel:[phone] Referring Provider: Inessa [address], [place], [place], [address]. tel:[phone] OFFICE/OUTPA TIENT VISIT, [facility], [address], [place], [place], [address], [place] tel:[phone] [facility] pain1 (chief complaint) weight loss1 (chief complaint) Chronic pain syndromeAbnormal weight loss Oct-2 0 Christopher Montes [address], [place], [place], [address] , [place]. [phone] Referring Provider: Inessa [address], [place], [place], [address]. tel:[phone] PREV VISIT, EST, AGE 40-64 [facility], [address], [place], [place], [address], [place] tel:[phone] [facility] BPH1 (chief complaint) physical (chief complaint) Encounter for general adult medical exam w abnormal findingsBPH w/ lower urinary tract symptomEssential (primary) hypertensionChronic pain syndrome Edy-0 8 0 Christopher Montes [address], [place], [place], [address] , [place]. tel:[phone] Referring Provider: Inessa Kent [address], [place], [place], [address]. tel:[phone] OFFICE/OUTPA TIENT VISIT, [facility], [address], [place], [place], [address], [place] tel:[phone] [facility] Medicine pain1 (chief complaint) HTN (chief complaint) urinary1 (chief complaint) weight loss1 (chief complaint) Essential (primary) hypertensionBPH w/ lower urinary tract symptomChronic pain syndromeAbnormal weight loss 9 Christopher Odom. [address], [place], [place], [address] , [place]. tel:[phone] Referring Provider: Inessa Kent [address], [place], [place], [address]. tel:[phone] OFFICE/OUTPA TIENT VISIT, [facility], [address], [place], [place], [address], [place] tel:[phone] [facility] urinary1 (chief complaint) knee pian1 (chief complaint) HTN (chief complaint) weight loss1 (chief complaint) Abnormal weight lossBPH w/ lower urinary tract symptomEssential (primary) hypertensionPain in left knee Sep- 9 Christopher Odom. [address], [place], [place], [address] , [place]. tel:[phone] Referring Provider: Inessa Kent [address], [place], [place], [address]. tel:[phone] OFFICE/OUTPA TIENT VISIT, [facility], [address], [place], [place], [address], [place] tel:[phone] [facility] knee pain1 (chief complaint) HTN (chief complaint) Essential (primary) hypertensionBPH w/ lower urinary tract symptomPain in left knee 9 Christopher Odom. [address], [place], [place], [address] , [place]. tel:[phone] Referring Provider: Inessa Kent [address], [place], [place], [address]. tel:[phone] OFFICE/OUTPA TIENT VISIT, [facility], [address], [place], [place], [address], [place] tel:[phone] [facility] knee pain1 (chief complaint) neck pain1 (chief complaint) urinary urgency1 (chief complaint) HTN (chief complaint) Essential (primary) hypertensionChronic pain syndromeBPH w/ lower urinary tract symptomPain in left knee 9 Christopher Montes [address], [place], [place], [address] , [place]. [phone] Referring Provider: Inessa Kent [address], [place], [place], [address]. tel:[phone] OFFICE/OUTPA TIENT VISIT, [facility], [address] [place] [address] [place], [address], [place] tel:[phone] [facility] STD1 (chief complaint) urine1 (chief complaint) chronic pain (chief complaint) HTN1 (chief complaint) High risk bisexual behaviorBPH w/ lower urinary tract symptomChronic pain syndromeEssential (primary) hypertension 8 Christopher Montes [address], [place], [place], [address] , [place]. [phone] Referring Provider: Inessa Kent [facility] [address], [place], [place], [address]. tel:[phone] OFFICE/OUTPA TIENT VISIT, [facility], [address] [place], [place], [address], [place] tel:[phone] [facility] urinary urgency1 (chief complaint) HTN (chief complaint) chronic pain1 (chief complaint) Body mass index (BMI) 32.0-32.9, adultEssential (primary) hypertensionBPH w/ lower urinary tract symptomChronic pain syndrome 8 Christopher Montes [address], [place], [place], [address] , [place]. tel:[phone] Referring Provider: Lei White, [address], [place], [place], [address]. tel:[phone] PREV VISIT, NEW, AGE 40-64 [facility], [address], [place], [place], [address], [place] tel:[phone] [facility] PHysical (chief complaint) Encounter for general adult medical exam w abnormal findingsEssential (primary) hypertensionBPH w/ lower urinary tract symptomChronic pain syndrome 201 8 Christopher Odom. [address], [place], [place], [address] , [place]. tel:[phone] Referring Provider: Lei White, [address] [facility] [address], [place], [place], [address]. tel:[phone] Family History Family Member Type Diagnosis Age At Onset Sister Problem (finding) Diabetes mellitus Mother Problem (finding) breast CA 55 Father Problem (finding) prostate CA 93 Payers Payer name Insurance type Covered alliance party ID Authoriza tion(s) No Information Social [...] ordered Referral Referred To: Checo Leonard [address] [facility]
[address] [place], [place], [phone] Ordered: Referrals: Allopathic & Osteopathic Physicians : [...] Mccrary [address] [place], [place] [phone] Ordered: Referrals: Allopathic & Osteopathic Physicians : [...] COLLINS [address] [place], [place], [phone] Ordered: Referrals: Allopathic & Osteopathic Physicians : [...] He still has not followed up with [facility] urology yet pain Pt c/o chronic b [...] knee pain Pt is seeing ortho at [facility]. He was told that he [...] nee pain Pt is seeing ortho at [facility]. He was told that he may need knee replacement soon, Pt failed NSAID and ultram Pt takes norco PRN for pain. Pt denies any swelling or redness or warmth of knee pain1 Pt c/o chronic l eft knee pain with swelling Pt saw ortho at [facility] and he had left knee [...] pain and he will see ortho at [facility] soon and he does not know yamila [...] Pt has not heard from ortho at [facility] yet. pt needs a note from me stating that he can work for 10 hours shift pt works at [employer] and he has stand on his feet [...] went to ER two weeks ago [place] and he had large amount of fluid [...] make appointment yet. 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 The patient [...]
--- OUTSIDE RECORDS SUMMARY | 2024-11-16 07:48 | XMS_ITS | Clinical Summary ---
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 10.7 g 5 025 2024 Discontinued montelukast (SINGULAIR) 10 MG tabletIndications :Severe persistent asthma with acute exacerbation ([facility]/HCC HHS/HCC) Take 1 tablet (10 mg total) by mouth nightly at bedtime. 30 tablet 1 025 2024 Discontinued(R eorder) losartan (COZAAR) 100 MG tabletIndications :Primary hypertension Take 1 tablet (100 mg total) by mouth daily. 90 tablet 1 025 2024 Discontinued(R eorder) Active Problems Problem Noted Date Diagnosed Date Moderate persistent asthma w ith acute exacerbation ([facility]/HCC) 08/22/2024 Cervical radiculopathy 01/12/2024 Right arm pain 01/12/2024 Prediabetes 09/30/2021 Osteoarthritis of multiple joints 09/29/2021 Primary hypertension 09/29/2021 Overweight (BMI 25.0-29.9) 09/29/2021 Vitamin D deficiency 09/29/2021 Derangement of posterior hor n of lateral meniscus, unspecified laterality 04/26/2012 Primary osteoarthritis of right knee 04/26/2012 Resolved Problems Problem Noted Date Diagnosed Date Resolved Date Mild intermittent asthma wit hout complication ([facility]/HCC) 09/29/2021 08/22/2024 Encounters Date Type Department Care Team Description 11/07/2024 9:00 AM CDT Office Visit [place] [address] [address] [place] [address] Isabel Adair NP Dizziness 11/07/2024 Travel 11/06/[address] [place] [address] [address] [place] [address] Soledad Lucas MD Dizziness 10/29/2024 Telephone [place] [address] [place] [address] [place] [address] Soledad Lucas MD Information 10/28/2024 2:40 PM CDT Office Visit [place] [address] [address] [place] [address] Soledad Lucas MD Follow Up (Congested, allergies. Refill on albuterol, percocet (was only given 7 pills when he picked the RX up, breztri. Couldn't afford the next shot of dupixent, also needs duoneb solution refilled, refill on losartan, refill on montelukast ); Hypertension (Discuss viagra); Back Pain; Weight Problem; Hyperlipidemia; Prediabetes; Arthritis; Asthma 10/28/2024 Telephone [place] [address] [place] [address] [place] [address] Soeldad Lucas MD Medication 10/28/2024 Travel 10/18/2024 Telephone [place] [address] [place] [address] [place] [address] Soledad Lucas MD Medication 09/20/2024 Telephone [place] [address] [place] [address] [place] [address] Soledad Lucas MD Question 09/12/2024 [facility] [address] [place] [address] Soledad Lucas MD Results 09/06/2024 10:37 AM WET FINISHER - 09/06/2024 11:59 PM WET FINISHER Hospital Encounter [facility] [address] [place] [address] Soledad Lucas MD Discharge Disposition: Home or Self Care (Routine Discharge) 09/06/2024 Travel 09/05/2024 [facility] [address] [place] [address] Soledad Lucas MD Referral 08/30/2024 Telephone [facility] [address] [place] [address] Soledad Lucas MD Medication Information 08/28/2024 Scan [facility] INFO SRVCS Scanned, [facility] 08/27/2024 [facility] [address] [place] [address] Soledad Lucas MD Breathing Problem 08/26/2024 Orders Only [facility] [address] [place] [address] Soledad Lucas MD 08/26/2024 [facility]phone [facility] [address] [place] [address] Soledad Lucas MD Medication 08/23/2024 Scan [facility] INFO SRVCS Scanned, [facility] 08/22/2024 9:00 AM WET FINISHER [facility] [address] [place] [address] Isabel Adair NP Wheezing 08/22/2024 Travel 08/21/2024 Telephone [place] [address] [place] [address] Soledad Lucas MD Question 08/20/2024 Telephone [place] [address] [facility] [address] [place] [address] Soledad Lucas MD Referral 08/19/2024 9:00 AM WET FINISHER Office Visit [place] [address] [address] [place] [address] Soledad Lucas MD Follow Up (Chronic medical issues); Hyperlipidemia; Hypertension; Back Pain; Neck Pain; Knee Pain; Asthma 08/19/2024 Scan [employer] INFO SRVCS Scanned, [facility] Image (SCAN) 08/19/2024 Telephone [place] [address] [address] [place] [address] Soledad Lucsa MD Follow Up Call 08/19/2024 Telephone [place] [address] [address] [place] [address] Soledad Lucas MD Medication Information 08/19/2024 Telephone [place] [address] [place] [address] Soledad Lucas MD Follow Up Call 08/19/2024 [...] Sex Assigned at Male 09/06/2024 10:34 AM WET FINISHER Legal Sex Male 8:04 PM CDT Gender [...] Description 12/16/2024 10:40 AM CDT Office Visit [facility] [address] [facility] [place] [id number] Ramsey Oakley MD [address] [facility] [address] [place] [address] 12/24/2024 12:40 PM CDT Office Visit [facility] [place] [address] [address] [place] [address] Soledad Lucas MD [address] [place] [address] [address] [place] [address] Health Maintenance Due Date Last Done Comments [...] 10/13/2021 Hepatitis C Completed 09/29/2021 PHQ-2 (Physician [facility]ora) Completed 08/19/2024 Meningococcal B Vaccine Aged Out [...] SPINE WO CON Routine 09/06/2024 11:00 AM WET FINISHER Cervical radiculopathy Chronic neck pain HEMOGLOBIN, GLYCOSYLATED Routine 08/19/2024 9:51 AM WET FINISHER Annual physical exam General medical exam Drug therapy TSH W/REFLEX Routine 08/19/2024 9:51 AM WET FINISHER Annual physical exam General medical exam Drug therapy LIPID PANEL Routine 08/19/2024 9:51 AM WET FINISHER Annual physical exam General medical exam Drug therapy COMPREHENSIVE METABOLIC PANEL Routine 08/19/2024 9:51 AM WET FINISHER Annual physical exam General medical exam Drug therapy CBC W/DIFF AUTOMATED Routine 08/19/2024 9:51 AM WET FINISHER Annual physical exam General medical exam Drug therapy SED RATE, ERYTHROCYTE (ESR) Routine 08/19/2024 9:51 AM WET FINISHER Annual physical exam General medical exam Drug therapy PROSTATE SPECIFIC ANTIGEN,SCREENING Routine 08/19/2024 9:51 AM WET FINISHER Screening for malignant neoplasm of prostate MG/PCCL UDS SCREEN Routine 08/19/2024 9: 35 AM WET FINISHER Drug therapy COLLECTION VENOUS BLOOD VENIPUNCTURE Routine 08/19/2024 9:13 AM WET FINISHER Annual physical exam General medical exam Drug therapy REMOVE IMPACTED CERUMEN INSTRUMENTATION UNILAT Routine 08/19/2024 9:00 AM WET FINISHER Bilateral impacted cerumen URINALYSIS AUTO DIP Routine 08/19/2024 Annual physical exam General medical exam Drug therapy IMAGE GENERIC 08/19/2024 IMAGE GENERIC 08/19/2024 HEPATITIS C ANTIBODY Routine 09/29/2021 10:05 AM WET FINISHER Annual physical exam Encounter for medical examination to establish care General medical exam Encounter for hepatitis C screening test for low risk patient COLONOSCOPY GENERIC (SCAN ORDER) 07/20/2021 from Last 3 Months or Most Recently Relevant to Health Maintenance Results * CT CERV SPINE WO CON (09/06/2024 11:00 AM WET FINISHER) Anatomical Region Laterality Modality Spine Computed Tomogra phy 09/10/2024 9:34 AM WET FINISHER Impressions 09/11/2024 8:54 AM WET FINISHER IMPRESSION: 1. No cervical spine fracture. 2. Moderate multilevel cervical spondylosis, as described above. Ordered By: SOLEDAD LUCAS Interpreted By: Eloy Blackwell MD, 09/10/2024 9:34 AM Narrative 09/11/2024 8:54 AM WET FINISHER [address] [address] EXAMINATION: CT Cervical Spine without contrast. EXAM [...] Procedure Note Eloy Blackwell MD - 09/11/[address] [address] EXAMINATION: CT Cervical Spine without contrast. EXAM [...] Result * TSH W/REFLEX (08/19/2024 9:51 AM WET FINISHER) TSH 1.876 0.358 - 3.740 uIU/ML 08/20/2024 10:47 AM WET FINISHER [facility] 08/19/2024 9:51 AM WET FINISHER Soledad Lucas MD LABORATORY Final Result Performing Organization Address City/[facility]/ZIP Co de Phone Number [address] [address], * (ABNORMAL) HEMOGLOBIN, GLYCOSYLATED (08/19/2024 9:51 AM WET FINISHER) Pathologist [facility] HGB A1C 5.9 4.5 - 6.2 % 08/19/2024 7:51 PM WET FINISHER [facility] ESTIMATED AVG GLUCOSE 123(H) 74 - 106 MG/DL 08/19/2024 7:51 PM WET FINISHER [facility] 08/19/2024 9:51 AM WET FINISHER Soledad Lucas MD LABORATORY Final Result Performing Organization Address City/[facility]/ZIP Co de Phone Number [address] [address], [place] [phone] * (ABNORMAL) SED RATE, ERYTHROCYTE (ESR) (08/19/2024 9:51 AM WET FINISHER) ESR 48(H) 0 - 19 MM/HR 08/19/2024 7:18 PM WET FINISHER [facility] 08/19/2024 9:51 AM WET FINISHER Soledad Lucas MD LABORATORY Final Result Performing Organization Address City/[facility]/ZIP Co de Phone Number [facility]leeH[facility] BLA[facility] HOSPITALRTHUTelma [address] [address], [place] [phone] * (ABNORMAL) PROSTATE SPECIFIC ANTIGEN,SCREENING (08/19/2024 9:51 AM WET FINISHER) PSA 4.55(H) <4.00 NG/ML 08/19/2024 8:20 PM WET FINISHER [facility] Comment: ASSAY PERFORMED BY [employer] USING [employer]. PATIENT RESULTS DETERMINED BY ASSAYS FROM DIFFERENT MANUFACTURERS AND/OR BY DIFFERENT METHODS MAY NOT BE COMPARABLE. 08/19/2024 9:51 AM WET FINISHER Soledad Lucas MD LABORATORY Final Result Performing Organization Address [facility] Co de Phone Number NISA CARDENASHUTelma [address] [id number] [place] [address], [place] [phone] * (ABNORMAL) COMPREHENSIVE METABOLIC PANEL (08/19/2024 9:51 AM WET FINISHER) SODIUM S/P/B 141 136 - 145 MMOL/L 08/20/2024 10:47 AM WET FINISHER [facility] POTASSIUM S/P/B 4.2 3.5 - 5.1 MMOL/L 08/20/2024 10:47 AM WET FINISHER [facility] CHLORIDE S/P/B 104 98 - 107 MMOL/L 08/20/2024 10:47 AM WET FINISHER [facility] CO2 28.6 21 - 32 MMOL/L 08/20/2024 10:47 AM WET FINISHER [facility] GLUCOSE 99 70 - 99 MG/DL 08/20/2024 10:[address] [facility] BUN 9 7 - 18 MG/DL 08/20/2024 10:[address] [facility] CREATININE S/P/B 1.06 0.70 - 1.30 MG/DL 08/20/2024 10:[address] [facility] CALCIUM S/P/B 8.9 8.4 - 10.5 MG/DL 08/20/2024 10:47 AM [facility] BILIRUBIN TOTAL S/P/B 1.3(H) 0.2 - 1.0 MG/DL 08/20/2024 10:[address] [facility] ALKALINE PHOSPHATASE S/P/B 91 45 - 115 U/L 08/20/2024 10:[address] [facility] AST 22 15 - 37 U/L 08/20/2024 10:[address] [facility] ALT 31 16 - 63 U/L 08/20/2024 10:[address] [facility] TOTAL PROTEIN S/P/B 7.0 6.4 - 8.2 G/DL 08/20/2024 10:[address] [facility] ALBUMIN S/P/B 3.9 3.4 - 5.0 G/DL 08/20/2024 10:[address] [facility] ANION GAP 8.4 5 - 15 MMOL/L 08/20/2024 10:[address] [facility] Comment:REFERENCE RANGE NOT ESTABLISHED OSMOLALITY (CALC) 291 MOSM/KG 025 10:47 AM [facility] Comment:REFERENCE RANGE NOT ESTABLISHED GFR ESTIMATE 78(L) >90 ML/MIN/1. 73 M2 08/20/2024 10:[address] [facility] GFR NOTES GFR REFERENCE S: 08/20/2024 10:47 AM [facility] Comment: THE ESTIMATED GFR IS CALCULATED USING [...] FAILURE: <15 ml/min/1.73 m2 08/19/2024 9:51 AM WET FINISHER Soledad Lucas MD LABORATORY Final Result [facility] [address] [place] [address], * LIPID PANEL (08/19/2024 9:51 AM WET FINISHER) CHOLESTEROL 124 <200 MG/DL 08/20/2024 10:[address] [facility] TRIGLYCERIDES 30 <150 MG/DL 08/20/2024 10:[address] [facility] HDL 68 >40 MG/DL 08/20/2024 10:[address] [facility] LDL-C 50 <100 MG/DL 08/20/2024 10:[address] [facility] VLDL CALCULATION 6 5 - 28 MG/DL 08/20/2024 10:[address] [facility] CHOL/HDL RATIO 1.8 0.0 - 4.0 08/20/2024 10:[address] [facility] LDL/HDL 0.7 0.41 - 2.13 08/20/2024 10:[address] [facility] NON HDL CHOLESTEROL 56 <140 MG/DL 08/20/2024 10:[address] [facility] 08/19/2024 9:51 AM WET FINISHER Soledad Lucas MD LABORATORY Final Result [facility] [address] [facility] [place] [address], [place] [phone] * (ABNORMAL) CBC W/DIFF AUTOMATED (08/19/2024 9:51 AM WET FINISHER) WBC 6.84 4.00 - 10.80 x10'3/uL 08/19/2024 7:34 PM WET FINISHER [facility] RBC 5.04 4.50 - 6.10 x10'6/uL 08/19/2024 7:[address] [facility] HGB 13.7 13.0 - 18.0 G/DL 08/19/2024 7:[address] [facility] HCT 42.7 37.0 - 52.0 % 08/19/2024 7:[address] [facility] MCV 84.7 78.0 - 100.0 FL 08/19/2024 7:[address] [facility] MCH 27.2 27.0 - 31.0 PG 08/19/2024 7:[address] [facility] MCHC 32.1(L) 33.0 - 36.0 G/DL 08/19/2024 7:[address] [facility] RDW 13.3 11.5 - 14.5 % 08/19/2024 7:[address] [facility] PLT 265 150 - 350 x10'3/uL 08/19/2024 7:[address] [facility] MPV 10.6(H) 7.4 - 10.4 FL 08/19/2024 7:[address] [facility] DIFFERENTIAL TYPE AUTOMATED DIFFERENTIAL 08/19/2024 7:34 PM WET FINISHER [facility] NEUTROPHILS % 66.7 % 08/19/2024 7:[address] [facility] LYMPHOCYTES % 16.4 % 08/19/2024 7:[address] [facility] MONOCYTES % 6.6 % 08/19/2024 7:[address] [facility] EOSINOPHILS % 9.8 % 08/19/2024 7:34 PM WET FINISHER [facility] BASOPHILS % 0.4 % 08/19/2024 7:[address] [facility] IMMATURE GRANS % 0.1 % 08/19/2024 7:[address] [facility] ABS. NEUTROPHILS 4.56 1.60 - 8.30 x10'3/uL 08/19/2024 7:[address] [facility] ABS. LYMPHOCYTES 1.12 0.80 - 4.70 x10'3/uL 08/19/2024 7:34 PM WET FINISHER [facility] ABS. MONOCYTES 0.45 0.00 - 1.50 x10'3/uL 08/19/2024 7:[address] [facility] ABS. EOSINOPHILS 0.67(H) 0.00 - 0.40 x10'3/uL 08/19/2024 7:[address] [facility] ABS. BASOPHILS 0.03 0.00 - 0.20 x10'3/uL 08/19/2024 7:34 PM WET FINISHER [facility] ABS. IMMATURE GRANULOCYTES 0.01 0.00 - 0.03 x10'3/uL 08/19/2024 7:[address] [facility] 08/19/2024 9:51 AM WET FINISHER us Soledad Lucas MD LABORATORY Final Result [facility] [address] [place] [address], * (ABNORMAL) MG/PCCL UDS SCREEN (08/19/2024 9:35 AM WET FINISHER) FENTANYL SCREEN (U) NEGATIVE <0.5 ng/mL [facility] [...] 6.3 4.5 - 9.0 [facility] WO[facility] RAJEEV OXIDANT NEGATIVE <200 mcg/mL [facility] WO[facility] NOTE [facility] Comment: This drug testing is for medical [...] analytical performance characteristics have been determined by [facility]. It has not been cleared or approved by the FDA. This assay has been validated pursuant to the CLIA regulations and is used for clinical purposes. Healthcare Providers needing Interpretation assistance, please contact us at [phone] ( ) M-F, 8am to 10pm EST URINE SPECIMEN / Unknown 08/19/2024 9:35 AM WET FINISHER 08/20/2024 1:31 AM WET FINISHER Narrative Resulting Agency Comment Performing Organization Information: Site ID: [id number] Name: [facility] Address: [address] [place] [address] Director: Jhoan Ying Site ID: [id number] Name: [facility] Address: [id number] [place] [id number] Director: Lang Adam MD Soledad Lucas MD URINE ORDERABLES Final Result Performing Organization Address City/State/[facility] Co de Phone Number [facility] [place] [address] [place] [address] [facility] [id number] [place] [id number] * REMOVE IMPACTED CERUMEN INSTRUMENTATION UNILAT (08/19/2024 9:00 AM WET FINISHER) Narrative Soledad Lucas MD - 08/19/2024 9:00 AM WET FINISHER Soledad Lucas MD 08/19/2024 9:56 AM *Ear [...] [place] TRANSPARENCY CLEAR CLEAR [address] [place] GLUCOSE (U) NEGATIVE NEGATIVE MG/DL MG[address] [place] BILIRUBIN (U) NEGATIVE NEGATIVE MG-[address], [place] KETONES MG/DL (U) NEGATIVE NEGATIVE MG/DL [address], [place] SPECIFIC GRAVITY (U) 1.025 1.001 - 1.035 [address], [place] BLOOD (U) NEGATIVE NEGATIVE [address] [place] U PH 6.0 5.0 - 9.0 [address], [place] PROTEIN (U) NEGATIVE NEGATIVE mg/dL MG[address], [place] UROBILINOGEN 0.2 0.2 - 1.0 EU/dL = mg/dL MG[address], [place] NITRITES NEGATIVE NEGATIVE MG/DL MG[address], [place] LEUKOCYTES (U) NEGATIVE NEGATIVE MG-[address], [place] URINE SPECIMEN OBTAINED BY CLEAN CATCH PROCEDURE / Unknown 08/19/2024 us Soledad Lucas MD URINE ORDERABLES Final Result Performing Organization Address City/[facility]/ZIP Co de Phone Number MG[address], [place] [address] [place] [address], [place] [phone] * HEPATITIS C ANTIBODY (09/29/2021 10:05 AM WET FINISHER) HEPATITIS C AB NON-REACTI VE NON-REACT DESIREE 09/29/2021 6:[address] [facility] Comment: ANTIBODIES TO HCV NOT DETECTED. DOES NOT EXCLUDE THE POSSIBILITY OF EXPOSURE TO HCV. 09/29/2021 10:0 5 AM WET FINISHER us Soledad Lucas MD LABORATORY Final Result [facility] [address] [place] [address], [place] [phone] * COLONOSCOPY GENERIC (07/20/2021) 07/20/2021 Narrative 07/20/2021 Ordered by an unspecified provider. us Documents Scanned SCANNING Final Result from Last 3 Months or Most Recently Relevant to Health Maintenance Insurance [place] [id number] Care Teams Rotary Dryer Operator Relationship Specialty Start Date End Date Soledad Lucas MD [address] [facility] [address] [place] [address] PCP - General INTERNAL MEDICINE 09/29/21
[2024-11-16 08:05] VITALS: PULSE 68; RESP 18
[2024-11-16] MEDS: IPRATROPIUM 0.5 MG/ALBUTEROL SULFATE 2.5 MG AMPUL.NEB 3 ML 12 ML INHALATION (08:05)
[2024-11-16 08:24] LABS: Basophils Absolute Auto 0.1 K/mm3 (0.0-0.1); Eosinophils Absolute Auto 0.6 K/mm3 (0-0.3); Eosinophils Percent Auto 10.6 % (0-4.4); Hematocrit 42.7 % (42.0-52.0); Hemoglobin 13.6 g/dL (14.0-18.0); Immature Granulocyte Absolute 0.02 K/mm3 (0.00-0.031); Immature Granulocyte Percent A 0.3 % (0-0.5); Lymphocytes Absolute Auto 1.21 K/mm3 (0.9-3.2); Lymphocytes Percent Auto 20.3 % (18.3-44.2); Mean Corpuscular HGB Conc 31.9 g/dl (32-36); Mean Corpuscular Volume 84.7 fl (80-100); Mean Platelet Volume 9.2 fl (7.4-10.4); Monocytes Absolute Auto 0.5 K/mm3 (0.1-0.6); Monocytes Percent Auto 8.4 % (2.6-8.5); Neutrophils Absolute Auto 3.6 K/mm3 (1.3-6.7); Neutrophils Percent Auto 59.4 % (45.5-73.1); Platelet Count Result 310 k/mm3 (150-375); Red Blood Count 5.04 M/mm3 (4.6-6.20); Red Cell Distribution Width 13.6 % (11.5-14.5)
[2024-11-16] MEDS: SODIUM CHLORIDE 0.9% IV 1,000 ML 999 ML IV CONT (08:24)
[2024-11-16] MEDS: dexAMETHasone SOD PHOS INJ 10 MG/ML 1 ML VIAL IV PUSH (08:24)
[2024-11-16] MEDS: MAGNESIUM SULF 2 GM/WATER 50ML 2 GM/50 ML BAG IVPB (08:27)
[2024-11-16 08:33] LABS: Alanine Aminotransferase 30 U/L (6-50); Albumin Level 4.6 g/dL (3.5-5.1); Alkaline Phosphatase 85 U/L (38-126); Anion Gap 9 mmol/L (4-12); Aspartate Amino Transferase 32 U/L (17-59); Bilirubin,Total 0.9 mg/dL (0.2-1.3); Blood Urea Nitrogen 12 mg/dL (9-20); Calcium 9.5 mg/dL (8.4-10.2); Carbon Dioxide 25 mmol/L (22-30); Chloride 104 mmol/L (98-107); Estimated CRCL calculation 96 ml/min; Estimated Glomerular Filt Rate > 60; Glucose 118 mg/dL (65-110); Potassium 4.5 mmol/L (3.4-5.0); Sodium 138 mmol/L (137-145)
[2024-11-16 08:49] VITALS: PULSE 67; RESP 16
[2024-11-16 09:00] LABS: Influenza A QL RT-PCR Negative (Negative); Influenza B QL RT-PCR Negative (Negative); RSV RNA, RT-PCR Negative (Negative); SARS-CoV-2 RNA PCR Negative (Negative)
--- NOTE | 2024-11-16 10:12 | ED.GENADULT ---
HPI - General Adult General Chief complaint: Asthma Stated complaint: ASTHMA Time Seen by Provider: 11/16/24 07:34 History of Present Illness HPI narrative: This is a 63-year-old male history of asthma presenting for difficulty breathing. Over last week he has had progressively worse wheezing in the morning. He typically takes his nebulizer that improves but he did not take his nebulizer this morning and came to the hospital instead. He denies fevers chills chest pain productive cough or body aches. Related Data Home Medications ?Medication ?Instructions ?Recorded ?Confirmed ?Last Taken ?Type losartan 50 mg-hydrochlorothiazide 1 tablet PO QAM 01/17/23 11/16/24 04/24/23 History 12.5 mg tablet cyclobenzaprine 5 mg tablet 5 mg PO Q12H PRN pain 11/16/24 11/16/24 Unknown History gabapentin 300 mg capsule 300 mg PO TID 11/16/24 11/16/24 Unknown History montelukast 10 mg tablet 10 mg PO QPM 11/16/24 11/16/24 Unknown History Allergies Allergy/AdvReac Type Severity Reaction Status Date / Time lisinopril Allergy LIPS Verified 11/16/24 07:37 SWELLING PMFSH Past Medical History Medical History History of stress test (~2020) Asthma Hypertension Colon cancer screening Surgical History Surgical History Status post total left knee replacement (~04/24/23) History of surgical removal of meniscus of knee Family History Family History Father Cancer Mother Cancer Sibling Arthritis Social History Social History Smoking status: Never smoker Alcohol intake: current Drinks per week: 10 Substance use: current Substance use type: marijuana Other substance usage details: SMOKES MARIJUANA DAILY Last use: 04/23/23 Do You Feel Safe in your Home?: Yes Lack of Transportation: No Lack of Food: Never True Current Housing: I Have Housing Concerned About Future Housing: No Difficulty Paying Gas/Electric Bills: No Difficulty Paying for Meds: YES Currently Unemployed: No Education: High School Diploma/GED Difficulty w/ Childcare or Family Care: No Living arrangements: with family Additional living arrangements comments: Gender identity (if verbalized by the patient): Male Spiritual care concerns: No Exam Narrative: APPEARANCE: No apparent distress. Head: atraumatic. EYES: EOMI, NOSE: Atraumatic NECK: Trachea midline RESPIRATORY: Audible wheezing in all morley, speaking in full sentences CARDIOVASCULAR: RRR, ABDOMINAL: Non-distended MUSCULOSKELETAl: No obvious deformities NEURO: Alert. Moving 4/4 extremities SKIN:: Warm, dry. Normal color PSYCHIATRIC: Normal affect Course Vital Signs Vital signs: Vital Signs Temperature 98.3 F 11/16/24 07:28 Pulse Rate 66 11/16/24 07:28 Respiratory Rate 22 H 11/16/24 07:28 Blood Pressure 174/84 H 11/16/24 07:28 Pulse Oximetry 98 11/16/24 07:28 Oxygen Delivery Room Air 11/16/24 07:28 Temperature 98.3 F 11/16/24 07:28 Pulse Rate 67 11/16/24 08:49 Respiratory Rate 16 11/16/24 08:49 Blood Pressure 166/94 H 11/16/24 07:37 Pulse Oximetry 100 11/16/24 07:37 Oxygen Delivery Room Air 11/16/24 07:33 Medical Decision Making MDM Narrative Medical decision making narrative: -Course: 63-year-old asthma presenting for difficulty breathing. Wheezing on exam. Given hour long DuoNeb treatment, magnesium is steroids with significant improvement. Patient is comfortable going home follow-up with primary care physician. Given return precautions. -DDX includes but is not limited to: Asthma COPD, viral syndrome, pneumonia Vital Signs Vital Signs: Vital Signs Temperature 98.3 F 11/16/24 07:28 Pulse Rate 66 11/16/24 07:28 Respiratory Rate 22 H 11/16/24 07:28 Blood Pressure 174/84 H 11/16/24 07:28 Pulse Oximetry 98 11/16/24 07:28 Oxygen Delivery Room Air 11/16/24 07:28 Temperature 98.3 F 11/16/24 07:28 Pulse Rate 67 11/16/24 08:49 Respiratory Rate 16 11/16/24 08:49 Blood Pressure 166/94 H 11/16/24 07:37 Pulse Oximetry 100 11/16/24 07:37 Oxygen Delivery Room Air 11/16/24 07:33 Lab Data 11/16/24 08:14 11/16/24 08:14 Labs: Lab Results 11/16/24 Range/Units 08:14 WBC 6.0 (4.5-10.0) K/mm3 RBC 5.04 (4.6-6.20) M/mm3 Hgb 13.6 L (14.0-18.0) g/dL Hct 42.7 (42.0-52.0) % MCV 84.7 (80-100) fl MCH 27.0 (26-34) pg MCHC 31.9 L (32-36) g/dl RDW 13.6 (11.5-14.5) % Plt Count 310 (150-375) k/mm3 MPV 9.2 (7.4-10.4) fl Immature Gran % (Auto) 0.3 (0-0.5) % Neut % (Auto) 59.4 (45.5-73.1) % Lymph % (Auto) 20.3 (18.3-44.2) % Brantley % (Auto) 8.4 (2.6-8.5) % Eos % (Auto) 10.6 H (0-4.4) % Baso % (Auto) 1.0 (0.2-1.2) % Lymph # (Auto) 1.21 (0.9-3.2) K/mm3 Brantley # (Auto) 0.5 (0.1-0.6) K/mm3 Eos # (Auto) 0.6 H (0-0.3) K/mm3 Baso # (Auto) 0.1 (0.0-0.1) K/mm3 Abs Immat Gran (auto) 0.02 (0.00-0.031) K/mm3 Absolute Neuts (auto) 3.6 (1.3-6.7) K/mm3 Absolute Nucleated RBC 0.000 (0.0-0.012) K/mm3 Nucleated RBC % 0.0 (0.0-0.2) % Sodium 138 (137-145) mmol/L Potassium 4.5 (3.4-5.0) mmol/L Chloride 104 (98-107) mmol/L Carbon Dioxide 25 (22-30) mmol/L Anion Gap 9 (4-12) mmol/L BUN 12 (9-20) mg/dL Creatinine 0.88 (0.7-1.3) mg/dL Estim Creat Clear Calc 96 ml/min Estimated GFR > 60 (59 - ) Glucose 118 H (65-110) mg/dL Calcium 9.5 (8.4-10.2) mg/dL Total Bilirubin 0.9 (0.2-1.3) mg/dL AST 32 (17-59) U/L ALT 30 (6-50) U/L Alkaline Phosphatase 85 (38-126) U/L Total Protein 8.0 (6.3-8.2) g/dL Albumin 4.6 (3.5-5.1) g/dL Influenza A (RT-PCR) Negative (Negative) Influenza B (RT-PCR) Negative (Negative) RSV (RT-PCR) Negative (Negative) SARS-CoV-2 RNA (RT-PCR) Negative (Negative) Discharge Plan Discharge Clinical Impression: Asthma Patient Disposition: Home Condition: Stable Instructions: Antibiotic Form, Asthma (DC) Additional Instructions: Please continue to take your inhalers. Please follow-up your primary care physician. Return if you develop worsening shortness of breath or would like re-evaluation. Patient Language: Setswana Prescriptions: No Action losartan-hydrochlorothiazide 50-12.5 mg tablet 1 tablet PO QAM albuterol sulfate 90 mcg/actuation HFA aerosol inhaler 2 puff inhalation QID PRN (Reason: shortness of breath or wheezing) Qty: 6.7 0RF ipratropium-albuterol 0.5 mg-3 mg(2.5 mg base)/3 mL solution for nebulization 3 ml inhalation Q4H PRN (Reason: wheezing) Qty: 90 0RF ipratropium-albuterol 0.5 mg-3 mg(2.5 mg base)/3 mL solution for nebulization 3 ml inhalation QID PRN (Reason: shortness of breath) Qty: 90 0RF cyclobenzaprine 5 mg tablet 5 mg PO Q12H PRN (Reason: pain) gabapentin 300 mg capsule 300 mg PO TID montelukast 10 mg tablet 10 mg PO QPM oxycodone-acetaminophen [Percocet] 5-325 mg tablet 1 tablet PO Q6H MDD 4 PRN (Reason: pain) Qty: 20 0RF Follow-up/Referrals: Naate,MD Soledad [Primary Care Provider] -
[2024-11-16 10:26] VITALS: O2SAT 100
== END 2024-11-16 10:32 | disposition home or self-care (01) ==
PROVIDERS: Emergency Provider Emergency Medicine; PCP Internal Medicine
DX: J45.909 Unspecified asthma, uncomplicated (principal); Z20.822 Contact with and (suspected) exposure to COVID-19; I10 Essential (primary) hypertension; Z96.652 Presence of left artificial knee joint; Z79.899 Other long term (current) drug therapy
CPT/HCPCS: 36415; 71045; 80053; 85025; 87637; 94640; 96365; 96375; 99284; J1100; J3475; J7030

== ENCOUNTER 2025-05-16 09:52 | Emergency (ER) | payer MEDICARE, SELFPAY ==
[2025-05-16 09:57] VITALS: BP 148/82; PULSE 67; RESP 20; TEMP 37.1; O2SAT 97
[2025-05-16] MEDS: IPRATROPIUM 0.5 MG/ALBUTEROL SULFATE 2.5 MG (BASE) AMPUL.NEB 3 ML INHALATION (10:11)
--- NOTE | 2025-05-16 10:43 | ED.ASTHMA ---
HPI - Asthma General Chief Complaint: Asthma Stated Complaint: Dr told him to come here/asthma Time Seen by Provider: 05/16/25 10:20 Source: patient and RN notes reviewed Mode of arrival: ambulatory Limitations: no limitations History of Present Illness HPI Narrative: 63-year-old male presents Express Care complaining of shortness of breath and wheezing over the last few weeks. Patient has a history of asthma, he said it was pretty well controlled at home with his inhaler therapy in nebulizer. Patient said the last couple days he has noticed worsening shortness of breath and wheezing, states that inhaler still help but the symptoms are coming back quickly. Patient called his primary care provider in the tongue the come here for further evaluation his take cannot get him in today. Patient denies any upper respiratory symptoms, fevers, aches, chills, nausea, vomiting, diarrhea, cough, or any other symptoms. Related Data Home Medications ?Medication ?Instructions ?Recorded ?Confirmed ?Last Taken ?Type losartan 50 mg-hydrochlorothiazide 1 tablet PO QAM 01/17/23 11/16/24 04/24/23 History 12.5 mg tablet Allergies Allergy/AdvReac Type Severity Reaction Status Date / Time lisinopril Allergy LIPS Verified 05/16/25 10:02 SWELLING Review of Systems Review of Systems: CONSTITUTIONAL: Denies fever, chills, or sweats. EYES: Denies visual changes, redness, or discharge. ENT: Denies rhinorrhea, congestion, sore throat, or otalgia. CARDIOVASCULAR: Denies chest pain, palpitations, or edema. RESPIRATORY: Denies cough. Positive for wheezing and shortness of breath. GASTROINTESTINAL: Denies abdominal pain, nausea, vomiting, or diarrhea. GENITOURINARY: Denies dysuria or hematuria. SKIN: Denies rash or itching. MUSCULOSKELETAL: Denies back pain, joint pain, or myalgia. NEUROLOGIC: Denies headache, numbness, or weakness. PSYCHIATRIC: Denies anxiety or depression. All other systems reviewed are negative, except as documented in HPI. [facility] Past Medical History Medical History History of stress test (~2020) Asthma Hypertension Colon cancer screening Surgical History Surgical History Status post total left knee replacement (~04/24/23) History of surgical removal of meniscus of knee Family History Family History Father Cancer Mother Cancer Sibling Arthritis Social History Social History Smoking status: Never smoker Alcohol intake: current Drinks per week: 10 Substance use: current Substance use type: marijuana Other substance usage details: SMOKES MARIJUANA DAILY Last use: 04/23/23 Do You Feel Safe in your Home?: Yes Lack of Transportation: No Lack of Food: Never True Current Housing: I Have Housing Concerned About Future Housing: No Difficulty Paying Gas/Electric Bills: No Difficulty Paying for Meds: YES Currently Unemployed: No Education: High School Diploma/GED Difficulty w/ Childcare or Family Care: No Living arrangements: with family Additional living arrangements comments: Gender identity (if verbalized by the patient): Male Spiritual care concerns: No Comments At the time of my signature, I reviewed and agree with the nursing past medical, surgical, social, and family history. There is no relevant family history pertinent to the patient complaint. Exam Narrative: GENERAL: This is a well-nourished, well-developed adult, in no apparent distress. They are non ill-appearing, nontoxic appearing. HEAD: normocephalic, atraumatic. EYES: Sclera clear/white. Conjunctiva normal. Vision is grossly intact. Extraocular movements intact EARS: External ears normal, auditory canals clear and without drainage, TMs normal without perforation. Hearing grossly intact. NOSE: External nose normal with no obvious nasal discharge, nasal turbinates without redness, no rhinorrhea. THROAT: Mucous membranes moist, posterior pharynx clear, without erythema or swelling. Uvula midline. NECK: Neck supple, non-tender without lymphadenopathy, masses or thyromegaly. CARDIOVASCULAR: Regular rate and rhythm without murmurs, gallops, or rubs. RESPIRATORY: Inspiratory and expiratory wheezes throughout. Breath sounds equal bilaterally. No rales, or rhonchi. Respiratory rate normal, respiratory effort nonlabored, no respiratory distress. Patient able to speak in full sentences. SKIN: warm, Dry, intact with no suspicious lesions or rash, good texture and turgor. NEURO: awake, alert, and oriented to person, place and time. There were no obvious focal neurologic abnormalities. EXTREMITIES: No joint tenderness, effusion, or edema noted. BACK: Nontender without deformity. No CVA tenderness. Course Course Emergency Course: Improved aeration after doing nebulizer treatment. No wheezing auscultated. Patient reports feeling significantly better. Level of Care: Express Care Visit Vital Signs Vital signs: Vital Signs Temperature 98.7 F 05/16/25 09:57 Pulse Rate 67 05/16/25 09:57 Respiratory Rate 20 05/16/25 09:57 Blood Pressure 148/82 H 05/16/25 09:57 Pulse Oximetry 97 05/16/25 09:57 Oxygen Delivery Room Air 05/16/25 09:57 Temperature 98.7 F 05/16/25 09:57 Pulse Rate 67 05/16/25 09:57 Respiratory Rate 20 05/16/25 09:57 Blood Pressure 148/82 H 05/16/25 09:57 Pulse Oximetry 97 05/16/25 09:57 Oxygen Delivery Room Air 05/16/25 09:57 Reviewed MDM - Asthma MDM Narrative Medical decision making narrative: Likely patient has asthma exacerbation. The patient reports feeling significantly better after nebulizer treatment. Repeat auscultation reveals improved aeration, clear lung sounds, no more wheezing. Patient given a shot of Solu-Medrol and will start prednisone tomorrow. Advised patient continues inhalers as directed and have close follow-up with PCP. Strict ER precautions with discussed with patient especially if he has worsening breathing problems, wheezing is not resolved with his prescriptions, nausea, vomiting, chest pain, fevers, or any serious concerns. Discussed physical exam findings. Advised supportive measures and signs/symptoms to go to the ER. Pt is appropriate for outpt treatment and f/u. Differential Diagnosis Differential diagnosis: Likely Acute exacerbation, Status asthmaticus, Acute asthmatic bronchitis, Pneumonia and COPD exacerbation Critical Care Time Critical Care Time Critical Care Time: No Discharge Plan Discharge Clinical Impression: Asthma with acute exacerbation Qualifiers: Asthma severity: mild Asthma persistence: intermittent Qualified Code(s): J45.21 - Mild intermittent asthma with (acute) exacerbation Patient Disposition: Home Condition: Stable Instructions: Asthma (ED) Additional Instructions: You were given shot of steroid today. Please start your prednisone tomorrow. Continue use your inhalers as directed at home. Follow-up with PCP in 3-5 days. If you developed worsening shortness of breath despite steroid and inhaler therapy, worsening wheezing or breathing problems, nausea vomiting, fevers, chest pains, or any serious concerns, go to the ER immediately. Patient Language: Ecuadorean Prescriptions: New prednisone 20 mg tablet 40 mg PO DAILY 5 Days Qty: 10 0RF No Action losartan-hydrochlorothiazide 50-12.5 mg tablet 1 tablet PO QAM albuterol sulfate 90 mcg/actuation HFA aerosol inhaler 2 puff inhalation QID PRN (Reason: shortness of breath or wheezing) Qty: 6.7 0RF ipratropium-albuterol 0.5 mg-3 mg(2.5 mg base)/3 mL solution for nebulization 3 ml inhalation Q4H PRN (Reason: wheezing) Qty: 90 0RF ipratropium-albuterol 0.5 mg-3 mg(2.5 mg base)/3 mL solution for nebulization 3 ml inhalation QID PRN (Reason: shortness of breath) Qty: 90 0RF Follow-up/Referrals: Lance,MD Soledad [Primary Care Provider, Unknown] Time of Disposition: 10:42
== END 2025-05-16 11:08 | disposition home or self-care (01) ==
PROVIDERS: PCP Internal Medicine
DX: J45.21 Mild intermittent asthma with (acute) exacerbation (principal); I10 Essential (primary) hypertension; J45.909 Unspecified asthma, uncomplicated; Z96.652 Presence of left artificial knee joint
CPT/HCPCS: 94640; 99213; G0463; J2919

== ENCOUNTER 2025-06-05 10:32 | Emergency (ER) | payer MEDICARE, SELFPAY ==
[2025-06-05 10:41] VITALS: BP 144/77; PULSE 77; RESP 22; TEMP 36.2; O2SAT 97
--- NOTE | 2025-06-05 11:06 | ED_ITS ---
HPI - General Adult General Chief complaint: Upper Respiratory Infection Stated complaint: Wheezing Time Seen by Provider: 06/05/25 11:06 Source: patient, RN notes reviewed and old records reviewed Mode of arrival: ambulatory Limitations: no limitations History of Present Illness HPI narrative: 63-year-old male presents to the [facility] with 3 day history of wheezing. History of asthma. States his last uses nebulizer at 2:00 a.m.. Patient is wheezing however talking in full sentences, in no respiratory distress, no retractions Patient was seen about 10 days ago, offers same issue. At that time received breathing treatment and a shot of Solu-Medrol. Related Data Home Medications ?Medication ?Instructions ?Recorded ?Confirmed ?Last Taken ?Type losartan 50 mg-hydrochlorothiazide 1 tablet PO QAM 11/16/24 04/24/23 History 12.5 mg tablet Allergies Allergy/AdvReac Type Severity Reaction Status Date / Time lisinopril Allergy LIPS Verified 06/05/25 10:44 SWELLING Review of Systems Review of Systems: All systems reviewed & are unremarkable except as noted in HPI and below Constitutional: Constitutional: Reports no additional constitutional compl aints ENT: Reports system reviewed and no additional complaints, except as documented Cardiovascular: Cardiovascular: Reports no additional cardiovascular complaints, Denies chest pain and Denies dyspnea Respiratory: Respiratory: Reports as per HPI, Denies chest congestion, Denies cough, Reports dyspnea and Reports wheezing Musculoskeletal: Musculoskeletal: Reports no additional musculoskeletal complaints Integumentary/Breasts: Skin/Breast: Reports system reviewed and no additional complaints, except as docu PMFSH Past Medical History Medical History History of stress test (~2020) Asthma Hypertension Colon cancer screening Surgical History Surgical History Status post total left knee replacement (~04/24/23) History of surgical removal of meniscus of knee Family History Family History Father Cancer Mother Cancer Sibling Arthritis Social History Social History Smoking status: Never smoker Alcohol intake: current Drinks per week: 10 Substance use: current Substance use type: marijuana Other substance usage details: SMOKES MARIJUANA DAILY Last use: 04/23/23 Do You Feel Safe in your Home?: Yes Lack of Transportation: No Lack of Food: Never True Current Housing: I Have Housing Concerned About Future Housing: No Difficulty Paying Gas/Electric Bills: No Difficulty Paying for Meds: YES Currently Unemployed: No Education: High School Diploma/GED Difficulty w/ Childcare or Family Care: No Living arrangements: with family Additional living arrangements comments: Gender identity (if verbalized by the patient): Male Spiritual care concerns: No Comments At the time of my signature, I reviewed and agree with the nursing past medical, surgical, social, and family history. There is no relevant family history pertinent to the patient complaint. Exam Const: General: cooperative, healthy appearing, comfortable, no acute distress, well developed, alert and well nourished Nutritional Appearance: well nourished Orientation/consciousness: patient oriented x3 Limitations: no limitations HENMT: Head: normal to inspection Ears: hearing grossly normal bilaterally, external ears normal, TM's normal bilaterally, EAC's normal, mastoids normal and no periauricular adenopathy Mouth: Yes Normal oral and palatal mucosa present, Yes lip normal, Yes tongue normal and Yes moist mucous membranes Eyes: General: appearance normal, both eyes and all related structures Alignment and Position: alignment normal Neck: Neck: normal visual inspection, full ROM, no lymphadenopathy and no meningeal signs Chest: Chest palpation & inspection: normal inspection of the chest Resp: Effort & Inspection: normal respiratory effort and able to speak in complete sentences Auscultation: no crackles, no rales, no rhonchi and wheezes throughout Cardio: Rate: regular rate Skin: General skin exam: normal color and no rashes or lesions noted Neuro: General: patient oriented x3, gait normal, moves all extremities and no meningeal signs Cognition (Neuro): normal cognition Speech: normal speech Gait exam (Neuro): Normal gait present Extrem: General: normal to inspection, full ROM, capillary refill normal and normal gait Psych: Appearance: grossly normal and well kempt Mental Status: mental status grossly normal Speech and movement: Normal speech and movement present and Clear speech present Affect: normal affect Attitude: cooperative Course Course Emergency Course: Post breathing treatment 1138 rechecked. Mild expiratory wheezing mostly left mid to left lower. Patient states that he feels better. Would like to go home and try continuing using the nebulizer treatments. Level of Care: Express Care Visit Vital Signs Vital signs: Vital Signs Temperature 97.1 F L 06/05/25 10:41 Pulse Rate 77 06/05/25 10:41 Respiratory Rate 22 H 06/05/25 10:41 Blood Pressure 144/77 H 06/05/25 10:41 Pulse Oximetry 97 06/05/25 10:41 Oxygen Delivery Room Air 06/05/25 10:41 Temperature 97.1 F L 06/05/25 10:41 Pulse Rate 68 06/05/25 11:30 Respiratory Rate 20 06/05/25 11:30 Blood Pressure 144/77 H 06/05/25 10:41 Pulse Oximetry 100 06/05/25 11:30 Oxygen Delivery Room Air 06/05/25 10:41 Reviewed Medical Decision Making MDM Narrative Medical decision making narrative: Patient sitting comfortably in the exam room. Patient is nontoxic and vitals are stable. Patient presents for wheezing for 3 days. Patient is also running low on nebulizer solution. Treatment given in clinic, sent additional medications albuterol and prednisone to his pharmacy. Patient reports improvement of breathing but we also discussed signs and symptoms to proceed to the emergency room which she verbalized understanding Discharge instructions reviewed with patient, as well as provided in writing per nursing staff. The instructions also include specific and strict return/GO TO THE ER as well as f/u information. All questions have been answered, and the patient deny any further questions with discharge and discharge plan. Some parts of this dictation were generated by voice recognition software and may contain typographical and/or grammatical inaccuracies. Differential Diagnosis Differential Diagnosis: Asthma exacerbation Medical Records Medical records reviewed: Yes I reviewed the external patient's medical records. Vital Signs Vital Signs: Vital Signs Temperature 97.1 F L 06/05/25 10:41 Pulse Rate 77 06/05/25 10:41 Respiratory Rate 22 H 06/05/25 10:41 Blood Pressure 144/77 H 06/05/25 10:41 Pulse Oximetry 97 06/05/25 10:41 Oxygen Delivery Room Air 06/05/25 10:41 Temperature 97.1 F L 06/05/25 10:41 Pulse Rate 68 06/05/25 11:30 Respiratory Rate 20 06/05/25 11:30 Blood Pressure 144/77 H 06/05/25 10:41 Pulse Oximetry 100 06/05/25 11:30 Oxygen Delivery Room Air 06/05/25 10:41 Reviewed Lab Data Lab results reviewed: Yes I reviewed the patient's lab results. Labs: Reviewed Critical Care Time Critical Care Time Critical Care Time: No Discharge Plan Discharge Clinical Impression: Wheezing, History of asthma Patient Disposition: Home Condition: Stable Instructions: Antibiotic Form, Asthma (ED) Additional Instructions: use your nebulizer every 4-5 hours while awake for the next 2 days. Take the steroid as prescribed follow-up with your lung doctor and or primary care provider within 1 week if you have difficulty breathing, chest pain please go directly to the emergency room Patient Language: Citizen Of [place] Prescriptions: New albuterol sulfate 0.63 mg/3 mL solution for nebulization 0.63 mg inhalation Q6H Qty: 75 0RF prednisone 20 mg tablet See Rx Instructions .Route .COMPLEX Qty: 9 0RF Rx Instructions: Take 40 mg daily for 3 days, 20 mg daily for 3 days No Action losartan-hydrochlorothiazide 50-12.5 mg tablet 1 tablet PO QAM albuterol sulfate 90 mcg/actuation HFA aerosol inhaler 2 puff inhalation QID PRN (Reason: shortness of breath or wheezing) Qty: 6.7 0RF ipratropium-albuterol 0.5 mg-3 mg(2.5 mg base)/3 mL solution for nebulization 3 ml inhalation Q4H PRN (Reason: wheezing) Qty: 90 0RF ipratropium-albuterol 0.5 mg-3 mg(2.5 mg base)/3 mL solution for nebulization 3 ml inhalation QID PRN (Reason: shortness of breath) Qty: 90 0RF Follow-up/Referrals: Lance,MD Soledad [Primary Care Provider, Unknown] - 1 Week Clinical Impression: Wheezing Time of Disposition: 11:47
[2025-06-05] MEDS: IPRATROPIUM BR 0.02% INH SOLN 0.5 MG/2.5 ML VIAL INHALATION (11:12)
[2025-06-05] MEDS: ALBUTEROL SULFATE NEB 2.5 MG/3 ML INH INHALATION (11:12)
[2025-06-05 11:30] VITALS: PULSE 68; RESP 20; O2SAT 100
--- OUTSIDE RECORDS SUMMARY | 2025-06-05 11:33 | XMS_ITS | Clinical Summary ---
Author Organization [facility] Address [address] [place] [address] Care Team Providers Care Orthopedic Rn Name Role Phone Unavailable Primary Care Provider [...] 5:57 PM CDT Height 185.4 cm (6' 1) 01/06/2022 5:57 PM CDT Body Mass Index [...] (1 of 2) 08/14/2009 INFLUENZA VACCINE (#1) 2025 RSV VACCINE (60+ or ) (1 - 1-dose 75+ series) 08/14/2034 Insurance MEDICARE ADVANTAGE HMO
--- OUTSIDE RECORDS SUMMARY | 2025-06-05 11:33 | XMS_ITS | Clinical Summary ---
Author Organization [facility] Address [address] [place] [address] Care Team Providers Care Clinical Research Nurse Coordinator Name Role Phone Tessie Izaguirre MD Primary Care Prov ider Allergies Active Allergy Reactions Criticality Noted Date Comments Lisinopril Angioedema High 06/21/2023 Medications HYDROcodone-acet aminophen (NORCO) 5-325 mg per tabletIndication s:Pain Take 1 tablet by mouth every 6 (six) hours as needed for pain 15 tablet 02/25/2025 Active Social History Tobacco Use Types Packs/Day Years Used Date Smoking Tobacco: Never Assessed Personal Safety Answer Date Recorded Have you ever been in or are you currently in a harmful physical or emotional relationship or is someone making you feel afraid or unsafe? 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 Gender Identity Not on file Sexual Orientation Not on file Last Filed Vital Signs Vital Sign Reading Time Taken Comments Blood Pressure 153/75 02/25/2025 2:15 AM CDT Pulse 63 02/25/2025 3:20 AM CDT Temperature 37.1 C (98.8 F) 02/24/2025 10:13 PM CDT Respiratory Rate 18 02/25/2025 3:20 AM CDT Oxygen Saturation 98% 02/25/2025 3:20 AM CDT Inhaled Oxygen Concentration - - Weight 108.9 kg (240 lb) 02/24/2025 10:13 PM CDT Height - - Body Mass Index - - Plan of Treatment Health Maintenance Due Date Last Done Comments Colon Cancer Screening-Colonoscopy 08/14/1959 Depression Screening 08/14/1959 Fall Risk Assessment 08/14/1959 Hepatitis C Screening 08/14/1959 Prostate Cancer Screening-PSA 08/14/1959 Hepatitis B Screening 08/14/1977 Zoster Vaccine (1 of 2) 08/14/2009 Abdominal Aortic Aneurysm (AAA) Screen 08/14/2024 Well Visit 65+ 08/14/2024 Covid-19 Vaccine (3 - season) 04/07/202506/2021, 10/24/2020 Influenza Vaccine (#1) 2025 Pneumococcal vaccine 65+ (3 of 3 - PCV20 or PCV21) 08/16/2028 08/16/2023, 11/01/2021 DTaP/Tdap/Td Vaccine (2 - Td or Tdap) 10/14/203104/2022 Insurance [employer] [place] Care Teams Clinical Research Nurse Coordinator Relationship Specialty Start Date End Date Tessie Izaguirre MD PCP - General Family Medicine 02/25/25
== END 2025-06-05 11:54 | disposition home or self-care (01) ==
PROVIDERS: Emergency Provider Nurse Practitioner; PCP Internal Medicine
DX: J45.909 Unspecified asthma, uncomplicated (principal); I10 Essential (primary) hypertension
CPT/HCPCS: 94640; 99213; G0463

== ENCOUNTER 2025-07-21 06:51 | Emergency (ER) | payer MEDICARE, SELFPAY ==
--- OUTSIDE RECORDS SUMMARY | 2025-07-21 06:53 | XMS_ITS | Clinical Summary ---
Author Organization [facility] Address [address] [place] [address] Care Team Providers Care Equal Opportunity Specialist Name Role Phone Unavailable Primary Care Provider [...]
--- OUTSIDE RECORDS SUMMARY | 2025-07-21 06:53 | XMS_ITS | Clinical Summary ---
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 Use for asthma attack. 1 Device Active azelastine (ASTELIN) 0.1 % nasal sprayIndications :Severe persistent asthma with acute exacerbation (CMS/HCC HHS/HCC) 1 spray by Nasal route 2 (two) times daily. Use in each nostril as directed 30 mL 3 Active ondansetron (ZOFRAN) 4 MG tabletIndication s:Class 1 obesity due to excess calories with serious comorbidity and body mass index (BMI) of 33.0 to 33.9 in adult Take 1 tablet (4 mg total) by mouth every 8 (eight) hours as needed. 20 tablet Active Additional Information Patient not taking.Reported on 06/27/2025 losartan (COZAAR) 100 MG tabletIndication s:Primary hypertension Take 1 tablet (100 mg total) by mouth daily. 90 tablet 3 Active Blood Pressure Monitoring (BLOOD PRESSURE KIT) DeviceIndication s:Primary hypertension Use daily to check Blood pressure and log. 1 each 05/14/2 025 Active cyclobenzaprine (FLEXERIL) 5 MG tabletIndication s:Cervical radiculopathy,Ne uroforaminal stenosis of cervical spine Take 1 tablet (5 mg total) by mouth nightly. 30 tablet 025 Active Additional Information Patient taking differently:5 mg OralPRN, Reported on 06/27/2025 gabapentin (NEURONTIN) 300 MG capsuleIndicatio ns:Cervical radiculopathy,Ne uroforaminal stenosis of cervical spine Take 1 capsule (300 mg total) by mouth 3 (three) times daily. 270 capsule 1 Active Additional Information Patient not taking.Reported on 06/27/2025 dupilumab (DUPIXENT) 300 MG/2ML injection (PEN)Indications :Moderate persistent asthma without complication (HHS/HCC) Inject 4 mL (600 mg) subcutaneously on Day 1, then inject 2 mL (300 mg) subcutaneously every 2 weeks starting on Day 15 4 mL 1 Active fluticasone propionate (FLONASE) 50 MCG/ACT nasal sprayIndications :Severe persistent asthma with acute exacerbation (CMS/HCC HHS/HCC) 2 sprays by Nasal route 2 (two) times daily. 16 g 5 025 Active loratadine (CLARITIN) 10 MG tabletIndication s:Moderate persistent asthma with acute exacerbation (HHS/HCC) Take 1 tablet (10 mg total) by mouth daily. For allergies/draina ge 30 tablet 1 025 Active oxyCODONE-acetam inophen (PERCOCET) 7.5-325 MG tabletIndication s:Chronic Pain Take 1 tablet by mouth daily as needed for Pain. Indications: Chronic Pain 30 tablet 025 Active sildenafil (VIAGRA) 50 MG tabletIndication s:Benign prostatic hyperplasia with urinary frequency,Erecti le dysfunction, unspecified erectile dysfunction type Take 1 tablet (50 mg total) by mouth daily. BPH 30 tablet 5 025 Active finasteride (PROSCAR) 5 MG tabletIndication s:Benign prostatic hyperplasia with urinary frequency Take 1 tablet (5 mg total) by mouth daily. 90 tablet 1 025 Active tamsulosin (FLOMAX) 0.4 MG CapIndications:B enign prostatic hyperplasia with urinary frequency Take 1 capsule (0.4 mg total) by mouth nightly. 90 capsule 1 025 Active montelukast (SINGULAIR) 10 MG tabletIndication s:Severe persistent asthma with acute exacerbation (CMS/HCC HHS/HCC) Take 1 tablet (10 mg total) by mouth nightly at bedtime. 30 tablet 5 025 Active budesonide-glyco pyrrolate-formot brenda (BREZTRI AEROSPHERE) 160-9-4.8 MCG/ACT inhalerIndicatio ns:Severe persistent asthma with acute exacerbation (CMS/HCC HHS/HCC) Inhale 2 puffs into the lungs 2 (two) times daily. 10.7 g 5 025 Active atorvastatin (LIPITOR) 40 MG tabletIndication s:Mixed hyperlipidemia Take 1 tablet (40 mg total) by mouth nightly at bedtime. 90 tablet 1 025 Active Albuterol-Budeso nide (AIRSUPRA) 90-80 MCG/ACT AerosolIndicatio ns:Moderate persistent asthma without complication (HHS/HCC) Inhale 2 puffs into the lungs every 6 (six) hours as needed. Rinse and spit after use 10.7 g 3 025 Active atorvastatin (LIPITOR) 40 MG tabletIndication s:Mixed hyperlipidemia Take 1 tablet (40 mg total) by mouth nightly at bedtime. 90 tablet 1 025 2024 Discontinued(R eorder) ipratropium-albu terol (DUONEB) 0.5-2.5 (3) MG/3ML SolutionIndicati ons:Severe persistent asthma with acute exacerbation (CMS/HCC HHS/HCC) Take 3 mLs by nebulization every 6 (six) hours as needed. 360 mL 11 025 2024 Discontinued fluticasone propionate (FLONASE) 50 MCG/ACT nasal sprayIndications :Severe persistent asthma with acute exacerbation (CMS/HCC HHS/HCC) 2 sprays by Nasal route 2 (two) times daily. 16 g 5 025 2024 Discontinued(R eorder) dulaglutide (TRULICITY) 0.75 MG/0.5ML injectionIndicat ions:Class 1 obesity due to excess calories with serious comorbidity and body mass index (BMI) of 33.0 to 33.9 in adult,Prediabete s Inject 0.75 mg into the skin once a week. 2 mL 2024 Discontinued(T herapy completed) dulaglutide (TRULICITY) 1.5 MG/0.5ML injectionIndicat ions:Class 1 obesity due to excess calories with serious comorbidity and body mass index (BMI) of 33.0 to 33.9 in adult,Prediabete s Inject 1.5 mg into the skin once a week. 2 mL 2024 Discontinued(T herapy completed) budesonide-formo terol (SYMBICORT) 160-4.5 MCG/ACT inhalerIndicatio ns:Moderate persistent asthma with acute exacerbation (HHS/HCC) Inhale 2 puffs into the lungs 2 (two) times daily. 10.2 g 5 2024 Discontinued(A lternate therapy) albuterol sulfate HFA 108 (90 Base) MCG/ACT inhalerIndicatio ns:Severe persistent asthma with acute exacerbation (CMS/HCC HHS/HCC) Inhale 2 puffs into the lungs every 6 (six) hours as needed for Wheezing. 18 g 5 2024 Discontinued montelukast (SINGULAIR) 10 MG tabletIndication s:Severe persistent asthma with acute exacerbation (CMS/HCC HHS/HCC) Take 1 tablet (10 mg total) by mouth nightly at bedtime. 30 tablet 5 2024 Discontinued(R eorder) methylPREDNISolo ne, ABBE, (MEDROL DOSEPAK) 4 MG tabletIndication s:Cervical radiculopathy,Ne uroforaminal stenosis of cervical spine 6 TABLETS ON DAY ONE, 5 TABLETS DAY TWO, 4 TABLETS DAY THREE, 3 TABLETS DAY FOUR, 2 TABLETS DAY FIVE, AND 1 TABLET DAY SIX 1 each 2024 Discontinued(T herapy completed) dupilumab (DUPIXENT) 300 MG/2ML injection (PEN)Indications :Moderate persistent asthma without complication (HHS/HCC) Inject 4 mL (600 mg) subcutaneously on Day 1, then inject 2 mL (300 mg) subcutaneously every 2 weeks starting on Day 15 4 mL 1 2024 Discontinued(R eorder) tamsulosin (FLOMAX) 0.4 MG CapIndications:B enign prostatic hyperplasia with urinary frequency Take 1 capsule (0.4 mg total) by mouth daily. 90 capsule 1 025 2024 Discontinued(R eorder) sildenafil (VIAGRA) 50 MG tabletIndication s:Benign prostatic hyperplasia with urinary frequency,Erecti le dysfunction, unspecified erectile dysfunction type Take 1 tablet (50 mg total) by mouth daily. BPH 30 tablet 5 2024 Discontinued(R eorder) loratadine (CLARITIN) 10 MG tabletIndication s:Moderate persistent asthma with acute exacerbation (HHS/[facility]) Take 1 tablet (10 mg total) by mouth daily. For allergies/draina ge 30 tablet 1 2024 Discontinued(R eorder) oxyCODONE-acetam inophen (PERCOCET) 7.5-325 MG tabletIndication s:Chronic Pain Take 1 tablet by mouth daily as needed for Pain. Indications: Chronic Pain 30 tablet 2024 Discontinued(R eorder) budesonide-glyco pyrrolate-formot brenda (BREZTRI AEROSPHERE) 160-9-4.8 MCG/ACT inhaler Inhale 2 puffs into the lungs 2 (two) times daily. 2024 Discontinued(R eorder) Active Problems Problem Noted Date Diagnosed Date Moderate persistent asthma with acute exacerbati on 08/22/2024 Cervical radiculopathy 01/12/2024 Right arm pain 01/12/2024 Prediabetes 09/30/2021 Osteoarthritis of multiple joints 09/29/2021 Primary hypertension 09/29/2021 Overweight (BMI 25.0-29.9) 09/29/2021 Vitamin D deficiency 09/29/2021 Derangement of posterior hor n of lateral meniscus, unspecified laterality 04/26/2012 Primary osteoarthritis of right knee 04/26/2012 Resolved Problems Problem Noted Date Diagnosed Date Resolved Date Care Management 12/02/2024 05/05/2025 Mild intermittent asthma without complication 09/29/19 22 08/22/2024 Encounters Date Type Department Care Team Description 06/27/2025 10:20 AM BLEACH PLANT OPERATOR Office Visit [address] [place] [phone] Ramsey Oakley MD Asthma (On Dupixent; denies any worsening SOB unless he goes too fast or goes the upstairs; has a little tickle in his throat due to allergies ) 06/27/2025 Telephone [place] [address] [address] [address] [place] [address] Soledad Lucas MD Information 06/27/2025 Travel 06/26/[address], [address] [place] [phone] Ramsey Oakley MD Appointment Request 06/25/2025 10:40 AM BLEACH PLANT OPERATOR Office Visit [place] [address] [address] [address] [place] [address] Soledad Lucas MD Follow Up (Declined flu shot ); Benign Prostatic Hypertrophy; Erectile Dysfunction; Hypertension; Hyperlipidemia; Asthma; Back Pain 06/25/2025 Travel 06/05/2025 Scan HEALTH INFO SRVCS Scanned, [facility] 05/20/2025 2:00 PM CDT Office Visit [place] [address] [address] [address] [place] [address] Soledad Lucas MD Follow Up (Dupixent came in a different form. Pt would like to come in for future shots. Needs refill on loratadine and both inhalers and percocet ); Erectile Dysfunction; Benign Prostatic Hypertrophy 05/20/2025 Telephone [place] [address] [address] [facility] [address] [place], [place] [id number] Soledad Lucas MD Medication Information 05/20/2025 Travel 05/16/2025 Scan MG HEALTH INFO SRVCS Scanned, [facility] 05/16/2025 [facility] [place] [address] [facility] [address] [place] [address] Soledad Lucas MD Information 05/16/2025 [facility] [address] [place] [address] Soledad Lucas MD Medication 05/13/2025 Orders Only [facility] [address] [place] [address] Soledad Lucas MD 05/01/2025 Patient Outreach [facility] [address] [address] Leena Valdovinos, RN Care Management from Last 3 Months Immunizations Immunization Administration Dates Next Due PFIZER COVID-19 (ORIGINAL FO RMULATION, PURPLE CAP) mRNA, LNP-S, PF, 30 MCG/0.3 ML DOSE 11/15/2020,10/24/2020 Pneumococcal (Pneumovax 23) 11/01/2021 Pneumococcal (Prevnar 13) 08/16/2023 Tdap (Adacel) 10/13/2021 Family History Medical History Relation Comments Cancer Brother Prostate Cancer Father prostate caner Father Cancer Mother Cancer Sister Diabetes Sister [...] Sex Assigned at Male 09/06/2024 10:34 AM BLEACH PLANT OPERATOR Legal Sex Male 8:04 PM CDT Gender Identity Male 10/28/2024 3:16 PM CDT Sexual Orientation Straight 10/28/2024 3: 16 PM CDT Last Filed Vital Signs Vital Sign Reading Time Taken Comments Blood Pressure 129/84 06/27/2025 10:34 AM BLEACH PLANT OPERATOR Pulse 77 06/27/2025 10:19 AM BLEACH PLANT OPERATOR Temperature 36.6 C (97.9 F) 06/25/2025 10:19 AM BLEACH PLANT OPERATOR Respiratory Rate 16 06/27/2025 10:19 AM BLEACH PLANT OPERATOR Oxygen Saturation 99% 06/27/2025 10:19 AM BLEACH PLANT OPERATOR RA Inhaled Oxygen Concentration - - Weight 109.8 kg (242 lb) 06/27/2025 10:19 AM BLEACH PLANT OPERATOR Height 185.4 cm (6' 1) 06/27/2025 10:19 AM BLEACH PLANT OPERATOR Body Mass Index 31.93 06/27/2025 10:19 AM BLEACH PLANT OPERATOR Plan of Treatment Upcoming Encounters Date Type Department Care Team (Late st Contact Info) Description 08/29/2025 10:20 AM BLEACH PLANT OPERATOR Office Visit [facility] - [address] [place] [address] Soledad Lucas MD [address] [place] [address] 09/18/2025 10:40 AM BLEACH PLANT OPERATOR Office Visit [facility] - [facility] [address] [facility], [address] [place] [address] Aston Car MD [address] [place] [address] 12/17/2025 10:40 AM CDT Office Visit [facility] - [address] [address] Ramsey Oakley MD [address] [facility] [address] [place] [address] Health Maintenance Due Date Last Done Comments Zoster Vaccines (1 of 2) 08/14/2009 RSV Immunization or 60+ Years (1 - Risk 60-74 years 1-dose series) 08/14/2019 COVID-19 Vaccine (3 - 2024-2 6 season) 2025 11/15/2020, 10/24/2020 Influenza Adult (#1) 2026 Postpon ed from 05/07/2025 (Patient Refused) Pneumococcal Vaccine: 50+ Years (3 of 3 - PCV20 or PCV21) 08/16/2028 08/16/2023, 11/01/2021 Colorectal Cancer Screening Colonoscopy (10 Years) 07/20/2031 07/20/2021 DTaP, Tdap and Td Vaccines ( 2 - Td or Tdap) 10/14/2031 10/13/2021 Hepatitis C Completed 09/29/2021 PHQ-2 (Physician [place]born) Completed 08/19/2024 Hepatitis A Vaccines Aged Out No long er eligible based on patient's age to complete this topic Meningococcal B Vaccine Aged Out No l onger eligible based on patient's age to complete this topic Meningococcal Vaccine Aged Out No victorina owen eligible based on patient's age to complete this topic RSV Immunizations Under 20 Months Aged Out No longer eligible b ased on patient's age to complete this topic Procedures Procedure Name Priority Date/Time Associated Diagnosis Comments HEPATITIS C ANTIBODY Routine 09/29/2021 10:05 AM BLEACH PLANT OPERATOR Annual physical exam Encounter for medical examination to establish care General medical exam Encounter for hepatitis C screening test for low risk patient COLONOSCOPY GENERIC (SCAN ORDER) 07/20/2021 from Last 3 Months or Most Recently Relevant to Health Maintenance Results * HEPATITIS C ANTIBODY (09/29/2021 10:05 AM BLEACH PLANT OPERATOR) HEPATITIS C AB NON-REACTI VE NON-REACT EDSIREE 09/29/2021 6:57 PM BLEACH PLANT OPERATOR [facility] Comment: ANTIBODIES TO HCV NOT DETECTED. DOES NOT EXCLUDE THE POSSIBILITY OF EXPOSURE TO HCV. 09/29/2021 10:0 5 AM BLEACH PLANT OPERATOR us Nueki Naate MD LABORATORY Final Result [facility] [address] [place] [address], [id number] * COLONOSCOPY GENERIC (07/20/2021) 07/20/2021 Narrative 07/20/2021 Ordered by an unspecified provider. us Documents Scanned SCANNING Final Result from Last 3 Months or Most Recently Relevant to Health Maintenance Insurance [facility] MEDICARE Care Teams Hand Fabric Cutter Relationship Specialty Start Date End Date Soledad Lucas MD [address] [facility] [address] [place] [id number] PCP - General INTERNAL MEDICINE 09/29/21
[2025-07-21 06:55] VITALS: PULSE 62; RESP 16; TEMP 36.6; O2SAT 99
--- NOTE | 2025-07-21 07:20 | ED.NECK ---
HPI - Neck Pain/Injury General Chief Complaint: Neck Pain/Injury Stated Complaint: Neck pain Time Seen by Provider: 07/21/25 07:02 History of Present Illness HPI Narrative: Pt presents with left sided neck pain for several weeks. Pt denies specific injury. Pt says his pain meds at home are not helping. Pt denies numbness or weakness in arms. Pt says the pain sometimes shoots up into head and down arms. Pt says the right side is starting tohurt now. Related Data Home Medications ?Medication ?Instructions ?Recorded ?Confirmed ?Last Taken ?Type losartan 50 mg-hydrochlorothiazide 1 tablet PO QAM 01/17/23 11/16/24 04/24/23 History 12.5 mg tablet Allergies Allergy/AdvReac Type Severity Reaction Status Date / Time lisinopril Allergy LIPS Verified 06/05/25 10:44 SWELLING Review of Systems Review of Systems: All systems reviewed & are unremarkable except as noted in HPI and below PMFSH Past Medical History Medical History History of stress test (~2020) Asthma Hypertension Colon cancer screening Surgical History Surgical History Status post total left knee replacement (~04/24/23) History of surgical removal of meniscus of knee Family History Family History Father Cancer Mother Cancer Sibling Arthritis Social History Social History Smoking status: Never smoker Alcohol intake: current Drinks per week: 10 Substance use: current Substance use type: marijuana Other substance usage details: SMOKES MARIJUANA DAILY Last use: 04/23/23 Lack of Transportation: No Lack of Food: Never True Current Housing: I Have Housing Concerned About Future Housing: No Difficulty Paying Gas/Electric Bills: No Difficulty Paying for Meds: YES Currently Unemployed: No Education: High School Diploma/GED Difficulty w/ Childcare or Family Care: No Living arrangements: with family Additional living arrangements comments: Gender identity (if verbalized by the patient): Male Spiritual care concerns: No Exam Const: General: healthy appearing and no acute distress Nutritional Appearance: well nourished Orientation/consciousness: patient oriented x3 Limitations: no limitations HENMT: Head: normal to inspection Neck: Neck: no meningeal signs Other: some left sided paraspinous muscle spasm at c3-4 level no midline tenderness Resp: Effort & Inspection: normal respiratory effort Auscultation: clear to auscultation bilaterally Cardio: Rate: regular rate Rhythm: regular rhythm GI: GI Palp: Yes Soft to palpation and No Tenderness to palpation present (GI) Auscultation: normal bowel sounds Skin: General skin exam: normal color Rashes: no rashes Wounds: no wounds Neuro: General: patient oriented x3, moves all extremities, no meningeal signs and CN's II-XI intact bilaterally Cranial nerves: Yes Nystagmus not present Speech: normal speech Extrem: General: normal to inspection and no clubbing, cyanosis or edema Psych: Mental Status: mental status grossly normal Affect: normal affect Attitude: cooperative Course Vital Signs Vital signs: Vital Signs Temperature 97.8 F 07/21/25 06:55 Pulse Rate 62 07/21/25 06:55 Respiratory Rate 16 07/21/25 06:55 Pulse Oximetry 99 07/21/25 06:55 Oxygen Delivery Room Air 07/21/25 06:55 Temperature 98.4 F 07/21/25 09:01 Pulse Rate 84 07/21/25 09:01 Respiratory Rate 17 07/21/25 09:01 Blood Pressure 147/98 H 07/21/25 09:01 Pulse Oximetry 99 07/21/25 09:01 Oxygen Delivery Room Air 07/21/25 06:55 MDM MDM Narrative Medical decision making narrative: seems muscular. will give dose of toradol and robaxin and reassess. Pt feels better aftert second pain shot and wants ot go home Differential Diagnosis Differential Diagnosis: cerical muscle strain /spasm, bulging or herniated cervical disc among others Discharge Plan Discharge Clinical Impression: Strain of neck muscle Patient Disposition: Home Condition: Improved Instructions: Antibiotic Form, Cervical Strain (ED) Patient Language: Macedonian Prescriptions: New prednisone 50 mg tablet 50 mg PO DAILY Qty: 5 0RF methocarbamol 750 mg tablet 750 mg PO TID Qty: 30 0RF No Action albuterol sulfate 0.63 mg/3 mL solution for nebulization 0.63 mg inhalation Q6H Qty: 75 0RF prednisone 20 mg tablet See Rx Instructions .Route .COMPLEX Qty: 9 0RF Rx Instructions: Take 40 mg daily for 3 days, 20 mg daily for 3 days losartan-hydrochlorothiazide 50-12.5 mg tablet 1 tablet PO QAM albuterol sulfate 90 mcg/actuation HFA aerosol inhaler 2 puff inhalation QID PRN (Reason: shortness of breath or wheezing) Qty: 6.7 0RF ipratropium-albuterol 0.5 mg-3 mg(2.5 mg base)/3 mL solution for nebulization 3 ml inhalation Q4H PRN (Reason: wheezing) Qty: 90 0RF ipratropium-albuterol 0.5 mg-3 mg(2.5 mg base)/3 mL solution for nebulization 3 ml inhalation QID PRN (Reason: shortness of breath) Qty: 90 0RF Follow-up/Referrals: Lance,MD Soledad [Primary Care Provider, Unknown]
[2025-07-21] MEDS: KETOROLAC 30 MG/ML VIAL (*BKC) IM (07:22)
[2025-07-21] MEDS: fentaNYL CITRATE INJ (*CRX) 100 MCG/2 ML VIAL 50 MCG IM (08:36)
[2025-07-21 09:01] VITALS: BP 147/98; PULSE 84; RESP 17; TEMP 36.9; O2SAT 99
== END 2025-07-21 08:57 | disposition home or self-care (01) ==
PROVIDERS: Emergency Provider Emergency Medicine; PCP Internal Medicine
DX: S16.1XXA Strain of muscle, fascia and tendon at neck level, initial encounter (principal); J45.909 Unspecified asthma, uncomplicated; I10 Essential (primary) hypertension; X58.XXXA Exposure to other specified factors, initial encounter
CPT/HCPCS: 96372; 99284; A9270; J1885; J3010